=== PATIENT | male | born 1960 | race Caucasian/White ===

== ENCOUNTER 2019-11-21 19:44 | Inpatient (IN) | payer OTHER, SELFPAY ==
[2019-11-21 19:45] VITALS: BP 163/106; PULSE 94; RESP 18; TEMP 36.6; O2SAT 97; BMI 23.7
--- NOTE | 2019-11-21 20:42 | ED.VIS.GEN ---
History of Present Illness Chief Complaint: ETOH Intox Detail of Chief Complaint: wants detox Informant: Patient Narrative: Patient states he is a chronic alcoholic and has been ingesting an increased volume of alcohol daily for the past 5 weeks in order to self medicate because of pain in his neck that has been going on somewhere between 6-12 months. He states he had an MRI that showed DDD and possibly a pinched nerve. He denies any pain going down his arms but occasionally gets some paresthesias in his left upper arm. He has not seen pain management or been considered for any surgery or epidural injections yet. He has taken a few Vicodin here and there but it has been a long time since he has taken that. He presents today wanting detox from alcohol. He has never gone through detox before and has been a drinker for years. For the past 5 weeks he has been drinking on average a bottle of 80 proof vodka per day. He denies using any other substances in that period of time. He denies any recent illnesses or injuries. He states when he does not drink for a period of time he does feel shaky and gets nauseated with vomiting on occasion. His last drink was 4 or 5 hours ago and he does not feel like he is in withdrawal right now. - Past Medical History (1) Alcoholism Status: Chronic (2) Hypertension Status: Chronic Past Medical History - Allergies and Home Meds Allergies/Adverse Reactions: Allergies No Known Allergies Allergy (Verified 11/21/19 19:45) Primary Care Physician: [facility],Out of [NON-STAFF] - Lives: Spouse/ Significant Other Smoking Status: Current every day smoker Alcohol: Heavy Drugs: None Review of Systems General: Denies: Chills, Fever, Sweats Eyes: Denies: Visual changes - bilaterally, Diplopia ENT: Denies: Rhinorrhea, Sore throat Cardiovascular: Denies: Chest pain, Palpitations Respiratory: Denies: Dyspnea, Cough, Dyspnea on exertion Gastrointestinal: Denies: Abdominal pain, Nausea, Vomiting, Diarrhea, Melena, Hematochezia Genitourinary: Denies: Dysuria, Hematuria, Frequency Musculoskeletal: Reports: Neck pain. Denies: Back pain, Swelling, Extremity Pain Skin: Denies: Rash, Wounds Neurological: Reports: Parasthesia. Denies: Headache, Weakness Physical Exam Vital Signs/Narrative: Vital Signs Temp Pulse Resp BP Pulse Ox 11/21/19 19:45 98 F 94 18 163/106 H 97 Inital Vital Signs reviewed: Yes General: Well nourished, Well developed, No Acute Distress Head: Normocephalic, Atraumatic Eyes: Perrl, EOMI ENT: Moist mucous membranes, No rhinorrhea Neck: Supple, Nontender Cardiovascular: Regular rate, Regular rhythm, No murmurs Respiratory: No distress, CTA bilaterally, Chest nontender Abdomen: Soft, Nontender, Nondistended, Normal bowel sounds Back: Nontender, Normal Inspection Extremities: Nontender, No edema Skin: Normal color, No rash, No Trauma Neurological: Alert, Oriented x3, Cranial nerves II-XII grossly intact, Normal Strength, Normal Sensation, Normal Gait Psychological: Normal affect, Normal Mood Diagnostic/Tx/Re-eval Laboratory Results 11/21/19 11/21/19 11/21/19 20:30 20:30 20:30 WBC 3.6 L RBC 4.41 L Hgb 14.6 Hct 42.6 MCV 96.6 H MCH 33.1 H MCHC 34.3 RDW Std Deviation 52.5 H RDW Coeff of Saloni 14.6 Plt Count 91 L MPV 9.6 Immature Gran % (Auto) 0.300 Neut % (Auto) 54.5 Lymph % (Auto) 30.0 Rains % (Auto) 14.6 H Eos % (Auto) 0.3 Baso % (Auto) 0.3 Absolute Neuts (auto) 2.0 Absolute Lymphs (auto) 1.07 Nucleated RBC % 0 PT 11.0 L INR 0.8 Sodium 142 Potassium 4.1 Chloride 110 H Carbon Dioxide 27.0 Anion Gap 5 BUN 14 Creatinine 0.57 L Estim Creat Clear Calc 157.70 Est GFR (MDRD) Af Amer 187 Est GFR (MDRD) Non-Af 154 BUN/Creatinine Ratio 24.4 H Glucose 100 Calcium 9.3 Total Bilirubin 0.50 AST 97 H ALT 85 H Alkaline Phosphatase 104 Total Protein 8.0 Albumin 4.0 Globulin 4.0 Albumin/Globulin Ratio 1.0 Urine Opiates Screen Urine Methadone Screen Ur Barbiturates Screen Ur Phencyclidine Scrn Ur Amphetamines Screen U Methamphetamin-MDMA U Benzodiazepines Scrn Urine Cocaine Screen U Cannabinoids Screen Ur Drug Screen Comment Ethyl Alcohol 11/21/19 11/21/19 20:30 21:00 WBC RBC Hgb Hct MCV MCH MCHC RDW Std Deviation RDW Coeff of Saloni Plt Count MPV Immature Gran % (Auto) Neut % (Auto) Lymph % (Auto) Rains % (Auto) Eos % (Auto) Baso % (Auto) Absolute Neuts (auto) Absolute Lymphs (auto) Nucleated RBC % PT INR Sodium Potassium Chloride Carbon Dioxide Anion Gap BUN Creatinine Estim Creat Clear Calc Est GFR (MDRD) Af Amer Est GFR (MDRD) Non-Af BUN/Creatinine Ratio Glucose Calcium Total Bilirubin AST ALT Alkaline Phosphatase Total Protein Albumin Globulin Albumin/Globulin Ratio Urine Opiates Screen NEGATIVE Urine Methadone Screen NEGATIVE Ur Barbiturates Screen NEGATIVE Ur Phencyclidine Scrn NEGATIVE Ur Amphetamines Screen NEGATIVE U Methamphetamin-MDMA NEGATIVE U Benzodiazepines Scrn NEGATIVE Urine Cocaine Screen NEGATIVE U Cannabinoids Screen NEGATIVE Ur Drug Screen Comment Ethyl Alcohol 390.0 H* - Medical Decision Making I had a fairly prolonged discussion with the patient about the fact that he is self-medicating and does not have a plan for controlling his pain after he gets off of alcohol. He is amenable to following up with pain management and/or surgery for evaluation for 1 or more of these treatments. He was unsure exactly of what he wanted to do but in the end felt that since he was here and motivated today it would be best if he be admitted for detox now. He states when he is intoxicated it does help his pain which is why he has been drinking more, and he understands that he may be in pain temporarily after he goes through detox. Therefore labs drawn and discussed with hospitalist. His abdomen was benign and there is no fluid wave, he has no jaundice to suggest cirrhosis here. ED Disposition - Plan for ED Patient: Disposition: Acute Care Hospital [facility] Diagnosis: Alcohol dependence Referrals: [facility],Out of [NON-STAFF] -
[2019-11-21 20:52] LABS: Absolute Lymphocyte Count 1.07 X10^3/uL (0.83-4.51); Basophil# 0.01 X10^3/uL; Basophil% 0.3 % (0-1); Eosinophil# 0.01 X10^3/uL; Eosinophils% 0.3 % (0-5); Hematocrit 42.6 % (40-54); Hemoglobin 14.6 g/dL (13.0-16.5); Lymphocyte # 1.07 X10^3/ul (4.0); Mean Corp Hgb Conc 34.3 g/dL (32-36); Mean Corpuscular Hgb 33.1 pg (27.0-32.0); Mean Corpuscular Volume 96.6 fL (80-94); Mean Platelet Vol. 9.6 fl (6.2-12.0); Monocyte# 0.52 X10^3/uL; Monocyte% 14.6 % (0-10); NRBC Flagged by Analyzer 0 % (0-5); Neutrophil # 1.95 X10^3/uL (2.7-7.7); Neutrophil % 54.5 % (47-70); POSITIVE COUNT YES; Platelet Count 91 K/mm3 (150-450); RBC Distribution Width CV 14.6 % (11.6-14.6); RBC Distribution Width SD 52.5 fl (35.1-43.9); Red Blood Count 4.41 M/mm3 (4.6-6.2); White Blood Count 3.6 K/mm3 (4.4-11.0)
[2019-11-21 20:54] LABS: International Normalized Ratio 0.8
[2019-11-21 21:01] LABS: AST(SGOT) 97 U/L (15-37); Alanine Aminotransfer ALT/SGPT 85 U/L (16-61); Alkaline Phosphatase 104 U/L (45-117); Anion Gap 5 (5-15); BUN 14 mg/dL (7-18); BUN/Creat Ratio 24.4 RATIO (10-20); Calcium,Total 9.3 mg/dL (8.5-10.1); Chloride 110 mmol/L (98-107); Creatinine, Serum 0.57 mg/dL (0.70-1.30); EST Glomerular Filtration Rate 154 mL/min (>60); Est Glom Filt Rate - Afr Amer 187 mL/min (>60); Glucose 100 mg/dL (74-106); Potassium 4.1 mmol/L (3.5-5.1); Sodium Level 142 mmol/L (136-145)
[2019-11-21 21:23] LABS: Amphetamine Urine VISTA NEGATIVE (<1000 ng/mL); Barbiturate Urine VISTA NEGATIVE (< 200 ng/mL); Benzodiazepine Urine VISTA NEGATIVE (< 200 ng/mL); Cocaine Urine VISTA NEGATIVE (< 300 ng/mL); Ecstacy Urine VISTA NEGATIVE (< 500 ng/mL); Methadone Urine VISTA NEGATIVE (< 300 ng/mL); PCP Urine VISTA NEGATIVE (< 25 ng/mL); THC Urine VISTA NEGATIVE (< 50 ng/mL); Vista UDS pH Range 6
--- NOTE | 2019-11-21 22:05 | NURSING ---
pt put his clothes back on. pt said he was leaving to get something to eat. dr chavez waiting at bedside
[2019-11-21 22:14] VITALS: BP 151/100; PULSE 90; RESP 18; TEMP 36.3; O2SAT 98
--- NOTE | 2019-11-21 22:14 | PCM.HP.STD ---
Problem List (1) Alcoholism Status: Acute (2) Hypertension Status: Chronic History of Present Illness Date of Admission: 11/21/19 Chief Complaint: alcohol withdrawal The patient is a 59 year old male patient with a past medical history of alcohol abuse disorder presents to the emergency room requesting alcohol detoxification. For the last 5 weeks the patient has increased his alcohol consumption to 1 bottle of vodka daily which he attributes to his severe neck pain. He is motivated to go through detoxification for his and 2 children and to regain control over his life. The patient denies chest pain shortness breath fevers or chills at the present time. His last drink was vodka earlier today and he is already starting to exhibit alcohol withdrawal symptoms including agitation and restlessness. [facility]. Past Medical History Past Medical History (Chronic Problems): Chronic Problems Hypertension (Chronic) Allergies No Known Allergies Allergy (Verified 11/21/19 19:45) Home Medications: Ambulatory Orders Medication Instructions Recorded Losartan Potassium [Cozaar] 1 tab PO DAILY 11/21/19 Lives: Spouse/ Significant Other Smoking Status: Current every day smoker Tobacco Use: Cigarettes Alcohol: Heavy Drugs: None - *Family History Maternal History Items: No pertinent history Review of Systems Constitutional: Denies: Chills, Fever, Weight Change HEENT: Denies: Head Aches, Sinus Congestion, Sinus Drainage Cardiovascular: Denies: Chest Pain, Palpitations Respiratory: Denies: Cough, Shortness of breath at rest, Sputum production Gastrointestinal: Denies: Abdominal Pain, Nausea, Vomiting Genitourinary: Denies: Dysuria Musculoskeletal: Reports: Neck Pain. Denies: Joint Pain, Joint Tenderness Skin: Denies: Rash, Wounds Neurological: Denies: Numbness, Tingling, Focal weakness Psychiatric: Reports: Anxiety. Denies: Depression, Homicidal Ideations, Suicidal Ideations Hematologic/ Lymphatic: Denies: Easy Bruising, Easy Bleeding VTE Information - Inpt Only VTE Present on Admission: No VTE Mechan Device Prophylaxis: None VTE Pharm Prophylaxis ordered?: No Patient Problems: Active and Suspected Problems Alcohol dependence (Acute) - Physical Exam Vitals/I&O's: Vital Signs Temp Pulse Resp BP Pulse Ox 98 F 94 18 163/106 H 97 11/21/19 19:45 11/21/19 19:45 11/21/19 19:45 11/21/19 19:45 11/21/19 19:45 Oxygen Delivery Method Room Air Weight: 180 lb Body Mass Index (BMI) 23.7 General: Alert, Oriented x3, Cooperative HEENT: Atraumatic, Normocephalic Neck: Supple Lungs: Clear to auscultation, Normal air movement Cardiovascular: Regular rate, Normal S1, Normal S2, No murmurs Abdomen: Bowel Sounds Present, Soft, Non Tender Extremities: No edema Skin: No rashes Musculoskeletal: No Tenderness to Palpation of Joints or Extremities Neurological: Neuro grossly intact, - - psychomotor agitation present Psych/Mental Status: Appropriate, Agitated, Anxious, Restless Laboratory Results 11/21/19 20:30: WBC 3.6 L, RBC 4.41 L, Hgb 14.6, Hct 42.6, MCV 96.6 H, MCH 33.1 H, MCHC 34.3, RDW Std Deviation 52.5 H, RDW Coeff of Saloni 14.6, Plt Count 91 L, MPV 9.6, Immature Gran % (Auto) 0.300, Neut % (Auto) 54.5, Lymph % (Auto) 30.0, [place] % (Auto) 14.6 H, Eos % (Auto) 0.3, Baso % (Auto) 0.3, Absolute Neuts (auto) 2.0, Absolute Lymphs (auto) 1.07, Nucleated RBC % 0 11/21/19 20:30: PT 11.0 L, INR 0.8 11/21/19 20:30: Sodium 142, Potassium 4.1, Chloride 110 H, Carbon Dioxide 27.0, Anion Gap 5, BUN 14, Creatinine 0.57 L, Estim Creat Clear Calc 157.70, Est GFR (MDRD) Af Amer 187, Est GFR (MDRD) Non-Af 154, BUN/Creatinine Ratio 24.4 H, Glucose 100, Calcium 9.3, Total Bilirubin 0.50, AST 97 H, ALT 85 H, Alkaline Phosphatase 104, Total Protein 8.0, Albumin 4.0, Globulin 4.0, Albumin/Globulin Ratio 1.0 11/21/19 20:30: Ethyl Alcohol 390.0 H* 11/21/19 21:00: Urine Opiates Screen NEGATIVE, Urine Methadone Screen NEGATIVE, Ur Barbiturates Screen NEGATIVE, Ur Phencyclidine Scrn NEGATIVE, Ur Amphetamines Screen NEGATIVE, U Methamphetamin-MDMA NEGATIVE, U Benzodiazepines Scrn NEGATIVE, Urine Cocaine Screen NEGATIVE, U Cannabinoids Screen NEGATIVE, Ur Drug Screen Comment Assessment/Plan All Active Problems Alcoholism (Acute) Alcohol dependence (Acute) Chronic Problems Hypertension (Chronic) Plan 1. Alcohol abuse disorder with withdrawal requesting detoxification?admit to medical surgical floor and initiate CIWA protocol. Consult case management for abuse disorder in the a.m. 2. Hypertension continue routine medications 3. Tobacco abuse disorder?low-dose nicotine patch 4. DVT prophylaxis patient is ambulatory and will not need medication for this at this time Inpatient E&M: [id number] Init Hosp L3
[2019-11-21 22:34] VITALS: BMI 23.9
[2019-11-21 22:51] VITALS: BP 156/92; PULSE 81; RESP 18; TEMP 36.7; O2SAT 97
[2019-11-21] MEDS: Zolpidem Tartrate 5 MG Tablet PO (23:34)
[2019-11-22] VITALS (8 sets, daily range): BP systolic 144–155; BP diastolic 80–99; PULSE 75–91; RESP 16–18; TEMP 36.6–36.9; O2SAT 93–98
[2019-11-22] MEDS: Acetaminophen 325 MG Tablet 650 MG PO ×2 (03:40→10:36)
[2019-11-22 05:25] LABS: AST(SGOT) 102 U/L (15-37); Alanine Aminotransfer ALT/SGPT 82 U/L (16-61); Albumin, Serum 3.5 g/dL (3.2-5.0); Alkaline Phosphatase 98 U/L (45-117); Anion Gap 8 (5-15); BUN 18 mg/dL (7-18); BUN/Creat Ratio 30.2 RATIO (10-20); Calcium,Total 8.5 mg/dL (8.5-10.1); Chloride 104 mmol/L (98-107); EST Glomerular Filtration Rate 147 mL/min (>60); Est Glom Filt Rate - Afr Amer 178 mL/min (>60); Estimated Creatinine Clearance 149.81 ml/min; Globulin 3.6 g/dL (2.2-4.2); Glucose 88 mg/dL (74-106); Potassium 4.2 mmol/L (3.5-5.1); Protein, Total 7.1 g/dL (6.4-8.2); Sodium Level 138 mmol/L (136-145)
--- NOTE | 2019-11-22 10:11 | CASEMGMT ---
ARGENIS called Teresa with [employer] and left her a voice mail letting her know about patient. Corin MUSTAFA MSW
[2019-11-22] MEDS: Folic Acid 1 MG Tablet PO (10:21)
[2019-11-22] MEDS: Losartan Potassium 50 MG Tablet PO (10:21)
[2019-11-22] MEDS: Thiamine Hydrochloride 100 MG Tablet PO ×2 (10:21→17:37)
[2019-11-22] MEDS: guaiFENesin Dm 10 ML UDC PO ×2 (10:21→17:37)
[2019-11-22] MEDS: LORazepam 1 MG Tablet 2 MG PO ×4 (10:21→22:17)
[2019-11-22] MEDS: cycloBENZAPRine HCl 10 MG Tablet PO ×2 (10:37→22:17)
--- NOTE | 2019-11-22 10:51 | PCM.PN.HOSP ---
Patient Problems: Active and Suspected Problems Alcohol dependence (Acute) Reason for Visit: alcohol withdrawal Subjective: pt requesting medication for neck pain, willing to try flexeril. ongoing alcohol withdrawal. He denies hx DTs, seizure, hallucinations. Currently mildly tremulous upper extremities. Mild cough no sputum production. No sick contacts, pt has been isolating at home. No fever/chills. Vitals/I&O's: Vital Signs Temp Pulse Resp BP Pulse Ox 98.3 F 82 18 147/96 H 94 11/22/19 10:23 11/22/19 10:23 11/22/19 10:23 11/22/19 10:23 11/22/19 10:23 Oxygen Delivery Method Room Air Weight: 181 lb 10.574 oz Body Mass Index (BMI) 23.9 Intake and Output for Last 24 Hours 11/20/19 11/21/19 11/22/19 23:59 23:59 23:59 Intake Total 1999 Balance 1999 General: Alert, Oriented x3, Cooperative HEENT: Atraumatic, PERRLA, EOMI, Normocephalic Neck: Supple, No JVD, Negative Carotid Bruits Lungs: Normal air movement, Wheezes Cardiovascular: Regular rate, No murmurs Abdomen: Bowel Sounds Present, Soft, Non Tender Extremities: No edema, Capillary Refill Less than 3 Seconds Skin: No rashes, No breakdown Musculoskeletal: No Tenderness to Palpation of Joints or Extremities Neurological: Cranial nerves II-XII grossly intact, - - upper extremity fine tremor no asterixis Psych/Mental Status: Normal Affect, Appropriate Laboratory Results 11/21/19 20:30: WBC 3.6 L, RBC 4.41 L, Hgb 14.6, Hct 42.6, MCV 96.6 H, MCH 33.1 H, MCHC 34.3, RDW Std Deviation 52.5 H, RDW Coeff of Saloni 14.6, Plt Count 91 L, MPV 9.6, Immature Gran % (Auto) 0.300, Neut % (Auto) 54.5, Lymph % (Auto) 30.0, Wolfe % (Auto) 14.6 H, Eos % (Auto) 0.3, Baso % (Auto) 0.3, Absolute Neuts (auto) 2.0, Absolute Lymphs (auto) 1.07, Nucleated RBC % 0 11/21/19 20:30: PT 11.0 L, INR 0.8 11/21/19 20:30: Sodium 142, Potassium 4.1, Chloride 110 H, Carbon Dioxide 27.0, Anion Gap 5, BUN 14, Creatinine 0.57 L, Estim Creat Clear Calc 157.70, Est GFR (MDRD) Af Amer 187, Est GFR (MDRD) Non-Af 154, BUN/Creatinine Ratio 24.4 H, Glucose 100, Calcium 9.3, Total Bilirubin 0.50, AST 97 H, ALT 85 H, Alkaline Phosphatase 104, Total Protein 8.0, Albumin 4.0, Globulin 4.0, Albumin/Globulin Ratio 1.0 11/21/19 20:30: Ethyl Alcohol 390.0 H* 11/21/19 21:00: Urine Opiates Screen NEGATIVE, Urine Methadone Screen NEGATIVE, Ur Barbiturates Screen NEGATIVE, Ur Phencyclidine Scrn NEGATIVE, Ur Amphetamines Screen NEGATIVE, U Methamphetamin-MDMA NEGATIVE, U Benzodiazepines Scrn NEGATIVE, Urine Cocaine Screen NEGATIVE, U Cannabinoids Screen NEGATIVE, Ur Drug Screen Comment 11/22/19 04:58: Sodium 138, Potassium 4.2, Chloride 104, Carbon Dioxide 26.0, Anion Gap 8, BUN 18, Creatinine 0.60 L, Estim Creat Clear Calc 149.81, Est GFR (MDRD) Af Amer 178, Est GFR (MDRD) Non-Af 147, BUN/Creatinine Ratio 30.2 H, Glucose 88, Calcium 8.5, Total Bilirubin 0.50, AST 102 H, ALT 82 H, Alkaline Phosphatase 98, Total Protein 7.1, Albumin 3.5, Globulin 3.6, Albumin/Globulin Ratio 1.0 Current Medications Acetaminophen (Tylenol) 650 mg PO Q6H PRN PRN PRN Reason: Pain Score 1-10/Temp > 100.7 F Last Admin: 11/22/19 10:36 Dose: 650 mg Documented by: Albuterol Sulfate (Ventolin Aerosols) 2.5 mg INHALATION Q2H PRN PRN PRN Reason: SOB &/OR WHEEZING Cyclobenzaprine HCl (Flexeril) 10 mg PO TID [facility] Last Admin: 11/22/19 10:37 Dose: 10 mg Documented by: Folic Acid (Folic Acid) 1 mg PO DAILY@0800 [facility] Stop: 11/24/19 08:01 Last Admin: 11/22/19 10:21 Dose: 1 mg Documented by: Guaifenesin (Robitussin Dm) 10 ml PO Q6H PRN PRN PRN Reason: COUGH Last Admin: 11/22/19 10:21 Dose: 10 ml Documented by: Lorazepam (Ativan) 2 mg PO Q2H PRN PRN; Protocol PRN Reason: CIWA score > 8 but <15 Lorazepam (Ativan) 2 mg PO UD PRN; Protocol PRN Reason: CIWA score >/=15. Lorazepam (Ativan) 2 mg IV Q2H PRN PRN; Protocol PRN Reason: CIWA score > 8 but <15 Lorazepam (Ativan) 2 mg IV UD PRN; Protocol PRN Reason: CIWA score >/=15. Lorazepam (Ativan) 2 mg PO Q4H MARCELLO; Taper Stop: 11/26/19 17:44 Last Admin: 11/22/19 10:21 Dose: 2 mg Documented by: Losartan Potassium (Cozaar) 50 mg PO DAILY [facility] Last Admin: 11/22/19 10:21 Dose: 50 mg Documented by: Ondansetron HCl (Zofran) 4 mg IV Q8H PRN PRN PRN Reason: NAUSEA/VOMITING Prochlorperazine Edisylate (Compazine Iv) 5 mg IV Q4H PRN PRN PRN Reason: Breakthrough nausea/vomiting Sodium Chloride () 10 - 40 ml IV UD PRN PRN Reason: SALINE FLUSH Thiamine HCl (Vitamin B1) 100 mg PO BIDCM [facility] Stop: 11/24/19 17:01 Last Admin: 11/22/19 10:21 Dose: 100 mg Documented by: Trazodone HCl (Desyrel) 100 mg PO QHS MARCELLO Zolpidem Tartrate (Ambien (Generic)) 5 mg PO QHS PRN PRN PRN Reason: INSOMNIA Last Admin: 11/21/19 23:34 Dose: 5 mg Documented by: STROKE Vital Signs/Narrative: Vital Signs Temp Pulse Resp BP Pulse Ox 11/22/19 10:23 98.3 F 82 18 147/96 H 94 11/22/19 07:48 93 Medical Necessity - Tobacco Use Smoking Status: Current every day smoker Tobacco Use: Cigarettes Assessment/Plan All Active Problems Alcoholism (Acute) Alcohol dependence (Acute) 1. Alcoholism with withdrawal - ativan taper, ciwa protocol, folate, thiamine 180 referral 2. neck pain - try flexeril, recent MRI [facility]. f.u with primary physician 3. Thrombocytopenia likely 2/2 alcoholic cirrhosis. INR 0.8. LFTs mildly elevated. Repeat lab work at follow up. 4. Nicotine abuse, mild wheezing, suspect some degree of underlying lung dz - duoneb x 1 + PRN albuterol, incentive spirometer. 5. HTN - losartan 6. Insomnia - trazodone qhs DVT ppx: SCDs DC plannin at dc, continue ativan taper This patient was seen by Jensen Guzmán PA-C under the supervision of Dr. Flores
[2019-11-22] MEDS: Ipratropium/Albuterol Sulfate 3 ML AMPUL.NEB INHALATION (11:04)
--- NOTE | 2019-11-22 13:21 | ADDICTION ---
This keno writer met with patient in his room. Patient was oriented x4 but appeared to be having difficulty staying awake. He reported this was due to the medication he is being given to manage his pain from neck injury. Patient stated that he is not interested in discharge planning today but would be willing to process discharge planning with this keno writer at a later date. This keno writer will follow up with patient and hospital social media director regarding client's care after discharging from [facility]. Full ASAM assessment to be faxed to hospital social media director upon completion of documentation. ASAM: Dimension 1: Acute Intoxication/ Withdrawal Potential Patient reports that he has been ingesting 1/2 to 3/4 (gallon)bottle of vodka per day. He reports this intensity of use has been ongoing for 2+ months. He reports a history of withdrawal symptoms including: agitation, tremors, physical pain/discomfort. He appeared to be actively experiencing agitation and shakiness of hands. He is currently engaged with [facility] for Medically Managed Intensive Inpatient. Dimension 2: Biomedical Conditions/Concerns Patient reports a history of alcohol use to self-medicate. He states that he has been using alcohol, in excess, to manage pain in neck from prior injury and to help with sleep. He states that he has a history of high blood pressure but reported no other BMC/C. Dimension 3: Emotional, Behavioral, Cognitive Conditions/Concerns Patient reports a history of mild anxiety symptoms. He reports no barriers to effectively managing symptoms. He reports no other EBCC/C. Dimension 4: Readiness to Change Patient appears to be in the contemplation stage of change as evidenced by his report of identification of problem behaviors with potential intention of modifying problem beahviors (alcohol use). He appears ambivalent to ongoing treatment and is not fully dedicated to changing problematic behaviors. Dimension 5: Relapse, Continued Use or Continued Problem Potential Patient reports limited relapse prevention skills. Patient reports limited history of sobreity and no history of prior treatment. He states that he believes that his use has become unmanageable in the past 3-4 months. Patient did not correlate problematic behaviors to consequences. Patient is at a high risk of relapse/continued use based on lack of awareness of problem potential, ambivalence towards ongoing treatment and his report of use history. Dimension 6: Recovery/ Living Environment Patient reports that his and children are supportive and do not use AoD. He lives independently, with his and has maintained full-time employment which he reports is important to him. He reports that he has engaged in mutual aid in the past, but did not find it helpful and is not attending meetings or working with a sponsor at this time. LOC recommended: Medically Managed Intensive Inpatient to manage withdrawal symptoms.
--- NOTE | 2019-11-22 13:51 | ADDICTION ---
This typewriter operator automatic met with patient in his room. Patient was oriented x4 but appeared to be having difficulty staying awake. He reported this was due to the medication he is being given to manage his pain from neck injury. Patient stated that he is not interested in discharge planning today but would be willing to process discharge planning with this typewriter operator automatic at a later date. This typewriter operator automatic will follow up with patient and hospital high school social science teacher regarding client's care after discharging from [facility]. Full ASAM assessment to be faxed to hospital high school social science teacher upon completion of documentation. ASAM: Dimension 1: Acute Intoxication/ Withdrawal Potential Patient reports that he has been ingesting 1/2 to 3/4 (gallon)bottle of vodka per day. He reports this intensity of use has been ongoing for 2+ months. He reports a history of withdrawal symptoms including: agitation, tremors, physical pain/discomfort. He appeared to be actively experiencing agitation and shakiness of hands. He is currently engaged with [facility] for Medically Managed Intensive Inpatient. Dimension 2: Biomedical Conditions/Concerns Patient reports a history of alcohol use to self-medicate. He states that he has been using alcohol, in excess, to manage pain in neck from prior injury and to help with sleep. He states that he has a history of high blood pressure but reported no other BMC/C. Dimension 3: Emotional, Behavioral, Cognitive Conditions/Concerns Patient reports a history of mild anxiety symptoms. He reports no barriers to effectively managing symptoms. He reports no other EBCC/C. Dimension 4: Readiness to Change Patient appears to be in the contemplation stage of change as evidenced by his report of identification of problem behaviors with potential intention of modifying problem behaviors (alcohol use). He appears ambivalent to ongoing treatment and is not fully dedicated to changing problematic behaviors. Dimension 5: Relapse, Continued Use or Continued Problem Potential Patient reports limited relapse prevention skills. Patient reports limited history of sobriety and no history of prior treatment. He states that he believes that his use has become unmanageable in the past 3-4 months. Patient did not correlate problematic behaviors to consequences. Patient is at a high risk of relapse/continued use based on lack of awareness of problem potential, ambivalence towards ongoing treatment and his report of use history. Dimension 6: Recovery/ Living Environment Patient reports that his and children are supportive and do not use AoD. He lives independently, with his and has maintained full-time employment which he reports is important to him. He reports that he has engaged in mutual aid in the past, but did not find it helpful and is not attending meetings or working with a sponsor at this time. LOC recommended: Medically Managed Intensive Inpatient to manage withdrawal symptoms.
[2019-11-22] MEDS: traZODone 100 MG Tablet PO (22:17)
[2019-11-23] MEDS: LORazepam 1 MG Tablet 2 MG PO (01:29)
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
--- NOTE | 2019-11-23 08:12 | PCM.DC.SUM ---
Discharge Date and Diagnosis Date of Admission: 11/21/19 Date of Discharge: 11/23/19 - Primary Discharge Diagnosis Alcoholism with withdrawal Patient left AMA Neck pain likely osteoarthritis Thrombocytopenia suspect 2/2 alcoholic cirrhosis Nicotine abuse HTN Insomnia - Secondary Discharge Diagnosis Chronic Problems Hypertension (Chronic) Hospital Course and Treatment Operations: None Procedures: None Summary of Care Provided: Hospital Course: The patient is a 59 year old M with pmhx as above who presented to the ER with c/o request for detox. He had been drinking about 1 bottle of vodka daily. He attributed his increased consumption to increased neck pain however he had been worked up at [facility] with an MRI with no ruptured disc. He was admitted and placed on ativan. He was doing well with ativan initially and was given flexeril for neck pain. Overnight he broke into his locked belongings, violating his contracts, and left against medical advice. This patient was seen by Jensen Guzmán PA-C under the supervision of Dr. Flores. [] - Physical Exam Vitals/I&O's: Vital Signs Temp Pulse Resp BP Pulse Ox 98.0 F 82 16 151/88 H 98 11/22/19 22:21 11/22/19 22:21 11/22/19 22:21 11/22/19 22:21 11/22/19 22:21 Oxygen Delivery Method Room Air Weight: 181 lb 10.574 oz Body Mass Index (BMI) 23.9 Intake and Output for Last 24 Hours 11/21/19 11/22/19 11/23/19 23:59 23:59 23:59 Intake Total 1999 1240 / 1240 Balance 1999 1240 / 1240 General: Alert, Oriented x3, Cooperative HEENT: Atraumatic, PERRLA, EOMI, Normocephalic Neck: Supple, No JVD, Negative Carotid Bruits Lungs: Normal air movement, Wheezes - faint expiratory Cardiovascular: Regular rate, No murmurs Abdomen: Bowel Sounds Present, Soft, Non Tender Extremities: No edema, Capillary Refill Less than 3 Seconds Skin: No rashes, No breakdown Musculoskeletal: No Tenderness to Palpation of Joints or Extremities Neurological: Cranial nerves II-XII grossly intact Psych/Mental Status: Normal Affect, Alert and oriented to time, place, person, mood and affect Discharge Diet: Low fat/ Low Cholesterol, 2000 mg Sodium Diet Discharge Activity: Return to Normal Activity Home Medications: Medications to take at Discharge Losartan Potassium [Cozaar] 1 tab PO DAILY 11/21/19 Primary Care Physician: Zaki Doctor,Out of [NON-STAFF] - Please follow up with your Primary Care Physician in: as needed Disposition: Against Medical Advice Minutes spent on discharge:: 35 Patient Condition:: Stable Medical Necessity - Tobacco Use Smoking Status: Current every day smoker Tobacco Use: Cigarettes Meaningful Use Info Meaningful Use Diagnoses (Choose all that apply): None applicable
== END 2019-11-23 02:05 | disposition left against medical advice (07) | DRG 894 ==
LOC: ED 20:50 → PCU 22:26
PROVIDERS: Admitting Provider Family Medicine; Emergency Provider Emergency Medicine; Visit Provider Internal Medicine
DX: F10.239 Alcohol dependence with withdrawal, unspecified (principal); K70.30 Alcoholic cirrhosis of liver without ascites; Z53.29 Procedure and treatment not carried out because of patient's decision for other reasons; D69.59 Other secondary thrombocytopenia; I10 Essential (primary) hypertension; M54.2 Cervicalgia; G89.29 Other chronic pain; G47.00 Insomnia, unspecified; F17.210 Nicotine dependence, cigarettes, uncomplicated; Z79.899 Other long term (current) drug therapy
CPT/HCPCS: 36415; 80053; 80307; 80320; 85025; 85610; 94640; 99284; 99406; G0480

== ENCOUNTER 2020-10-30 15:07 | Outpatient (RCR) | payer OTHER, SELFPAY ==
[2019-11-21 22:34] VITALS: BMI 23.9
[2020-10-30] MEDS: COVID-19 VACC, MRNA(PFIZER)/PF 30 MCG/0.3 ML SYRINGE IM (09:47)
[2020-11-20] MEDS: COVID-19 VACC, MRNA(PFIZER)/PF 30 MCG/0.3 ML SYRINGE IM (10:10)
== END 2021-01-22 23:59 ==
LOC: IMMUN 15:07
PROVIDERS: PCP Family Medicine; Visit Provider Family Medicine
DX: Z23 Encounter for immunization (principal)
CPT/HCPCS: 0001A; 0002A; 91300

== ENCOUNTER 2023-12-18 22:02 | Inpatient (IN) | payer OTHER, MEDICAID, SELFPAY ==
[2023-12-18 22:03] VITALS: BP 126/99; PULSE 112; RESP 17; TEMP 37.9; O2SAT 98; BMI 23.2
--- NOTE | 2023-12-18 22:17 | EX.ED.DYSGE1 ---
HPI History of Present Illness Chief Complaint: Confusion [facility] PFS Medical History Anxiety and depression Chronic neck pain ETOH abuse Thrombocytopenia Tobacco use Home Medications losartan 50 mg tablet 1 tab PO DAILY 11/21/19 [History Last Taken Unknown] Allergy/AdvReac Type Severity Reaction Status Date / Time No Known Allergies Allergy Verified 12/18/23 22:18 Social History Smoking Status: Current every day smoker tobacco type: cigarettes EXAM Physical Exam Const Vital Signs: 12/18/23 22:03 12/19/23 00:03 Temperature 100.2 F H 98.4 F Temperature Source Temporal Temporal Pulse Rate 112 H 89 Respiratory Rate 17 18 Blood Pressure 126/99 H 118/86 H Blood Pressure Mean 108 96 Pulse Ox 98 96 Oxygen Delivery Method Room Air Room Air MDM MDM MDM Narrative Medical decision making narrative: HISTORY OF PRESENT ILLNESS: 63-year-old male presents with concern for confusion. Initial history provided by EMS. Patient was at a local drive-through when he was noted to be more confused. Per the patient he drinks approximately 7 alcoholic beverages per day. His preferred drink is vodka. States his last drink was yesterday at noon. Denies history of alcohol withdrawal. Denies any chest pain, shortness of breath does note some slight nervousness and anxiousness. Denies cough fever or chills. Denies abdominal pain. Denies chest pain. Denies bleeding diathesis. Denies vomiting or diarrhea. Denies any urinary complaints REVIEW OF SYSTEMS: Pertinent positives: Nausea, fever Pertinent negatives: Chest pain, shortness of breath, abdominal pain or any urinary complaints, focal numbness or weakness PHYSICAL EXAM: Nursing triage notes reviewed, Vital signs reviewed Constitutional: please see mdm HENT: MMM Eyes: Pupils equal round and reactive to light, Extraocular muscles intact Neck: No stridor, no JVD, full neck ROM Lungs: Clear to auscultation, No wheezing or rales. No increased work of breathing, no conversational dyspnea, no accessory muscle use, no nasal flaring. No respiratory distress noted Heart: Regular rate and rhythm, No murmurs, No rubs and No gallops, 2+ distal pulses (radial, femoral, posterior tibial) in all extremities Abdomen: Soft, there is no tenderness, rigidity, rebound or guarding, no obvious peritoneal signs, no palpable pulsatile abdominal masses, no auscultated abdominal bruit : No CVAT Extremities: No edema Neuro: No focal neurological deficits, cranial nerves II through XII intact, 5/5 strength in all extremities. Intact sensation to light touch in all extremities, 2+ reflexes bilateral patella tendons. Tremulous Skin: No rash or lesions noted MEDICAL DECISION MAKING: Chief Complaint: Confusion External records reviewed: No recent ED visits noted Factors affecting care: Hypertension Social determinants of health: History of alcoholism History obtained from others: EMS Consults: internal medicine (Dr. Kaur) [facility] Narrative: Patient was initially tachycardic, febrile, normotensive satting at 98% room air. Patient was tremulous, tachycardic. Unkept I considered the following differential diagnosis: Alcohol withdrawal, ICH, arrhythmia, anemia, electrolyte disturbance, infectious or metabolic encephalopathy I obtained a broad lab and imaging workup to further elucidate the etiology patient complaints. I treated the patient with Tylenol to treat his fever, Ativan and phenobarbital to treat alcohol withdrawal empirically. Zofran and fluids for rehydration ALL IMAGES (IF OBTAINED) HAVE BEEN PERSONALLY REVIEWED AND INTERPRETED BY MYSELF. EKG with sinus tachycardia, normal axis, slightly prolonged QT interval, no STEMI CBC with leukocytosis, anemia noted, noted thrombocytopenia I have personally reviewed the patient's chest x-ray. Chest x-ray is unremarkable for pulmonary edema, pneumothorax, pneumonia or focal cardiopulmonary abnormality., Incidental finding discussed with the patient UA with evidence of infection Lactate is wnl indicating no end-organ hypoperfusion and/or hypoxia. BMP with hyponatremia, hypokalemia suggestive of malnutrition and slight dehydration, no evidence of metabolic acidosis, there is an anion gap likely secondary to alcohol induced ketoacidosis Total bilirubin elevated, AST and ALT elevated alcohol-induced pattern is likely secondary to alcohol induced liver dysfunction High-sensitivity troponin is negative, no evidence of myocardial ischemia Urine tox screen is negative Serum alcohol level is negative The synthesis of the patient's history, physical exam, labs images suggest alcohol withdrawal, UTI. This explains patient's abnormal vital signs and fever. His lactate was negative. Blood cultures were drawn prior to antibiotics. He was given ceftriaxone for empiric UTI coverage. He was given Ativan and phenobarbital for empiric alcohol withdrawal treatment. Admitted given altered mental status, abnormal vital signs, signs of alcohol withdrawal and need for ongoing antimicrobial therapy. The patient and/or family, caregivers express understanding. The patient and/or family, caregivers agrees with the plan. Shared decision making: I will have a discussion with the patient and or visitors regarding risk/benefits of further testing or admission. They will be made aware of of the risk/benefits inherent in this decision they will be given the opportunity to voice understanding. Total critical care time today provided was at least 0 [] minutes. This excludes separately billable procedures. Critical care time (if documented) is secondary to the patient having high probability of clinically significant/life threatening deterioration in the patient's condition which required my urgent intervention. Impression: 1. Altered mental status 2. Alcohol withdrawal 3. Anemia 4. Thrombocytopenia 5. Acute UTI 7. Hyperbilirubinemia 8. Pulmonary nodule 9. Acute hyponatremia Dispo: Admit to floor This note was generated with [employer] dictation software. It may contain incorrect words, spelling, and punctuation that were not noted in review of the chart prior to signing. Lab Data Labs: Laboratory Results - last 24 hr 12/18/23 12/18/23 22:44 23:02 WBC 4.6 RBC 3.04 L Hgb 10.3 L Hct 30.9 L MCV 101.6 H MCH 33.9 H MCHC 33.3 RDW Std Deviation 55.4 H RDW Coeff of [place]oni 14.8 H Plt Count TNP MPV 11.6 Immature Gran % (Auto) 0.900 Neut % (Auto) 76.9 H Lymph % (Auto) 9.5 L [place] % (Auto) 12.5 H Eos % (Auto) 0.0 Baso % (Auto) 0.2 Absolute Neuts (auto) 3.6 Absolute Lymphs (auto) 0.44 L Nucleated RBC % 0 Differential Comment SEE COMMENT Platelet Estimate ADEQUATE RBC Morphology N CHROM Hypochromasia 1+ Anisocytosis 1+ Macrocytosis 1+ Ovalocytes RARE Sodium 134 L Potassium 3.4 L Chloride 93 L Carbon Dioxide 21.0 Anion Gap 20 H BUN 12 Creatinine 1.01 Estim Creat Clear Calc 84.53 Est GFR (MDRD) Af Amer 96 Est GFR (MDRD) Non-Af 79 BUN/Creatinine Ratio 11.9 Glucose 131 H Lactic Acid 1.7 Calcium 8.8 Total Bilirubin 2.70 H Direct Bilirubin 1.85 H AST 295 H ALT 93 H Alkaline Phosphatase 198 H Troponin I High Sens 18 Total Protein 7.7 Albumin 3.0 L Globulin 4.7 H Lipase 73 Urine Color Scarlet Urine Clarity Clear Urine pH 6.0 Ur Specific [place] 1.020 Urine Protein 500 H Urine Glucose (UA) Normal Urine Ketones 150 A* Urine Occult Blood 25 H Urine Nitrite Positive H Urine Bilirubin 6 H Urine Urobilinogen 12 H Ur Leukocyte Esterase 25 H Urine RBC 0 SEEN Urine WBC 0-5 SEEN Ur Squamous Epith Cells 0 SEEN Urine Bacteria 0 SEEN Hyaline Casts 10-25 SEEN Urine Mucus 0 SEEN Urine Opiates Screen NEGATIVE Urine Methadone Screen NEGATIVE Ur Barbiturates Screen NEGATIVE Ur Phencyclidine Scrn NEGATIVE Ur Amphetamines Screen NEGATIVE MDMA (Ecstasy) Screen NEGATIVE U Benzodiazepines Scrn NEGATIVE Urine Cocaine Screen NEGATIVE U Cannabinoids Screen NEGATIVE Ur Drug Screen Comment Ethyl Alcohol 4.0 Radiography Diagnostic Testing: Clinical Impression(s) from Imaging Studies Brain CT 12/18/23 22:36 IMPRESSION: Age-related changes as above, without evidence of acute intracranial hemorrhage in this noncontrast head CT. Sinus disease. Electronically Signed: Neri Anderson MD at 23:39 EDT , Chest X-Ray 12/18/23 22:45 IMPRESSION: 11 mm right lung base nodular opacity, to include pulmonary nodule. Recommend comparison with previous imaging to document long-term stability versus follow-up evaluation as per Fleischner guidelines as neoplastic process is not excluded. Chest with no acute disease. Electronically Signed: Neri Anderson MD at 23:36 EDT , Discharge Plan Triage Chief Complaint: Confusion ED Provider: Brendan Childs Dx/Rx/DC Orders Prescriptions: No Action losartan 50 MG tablet 1 tab PO DAILY Primary Care Provider: Rajeev Villaseñor Referrals: Rajeev Villaseñor MD [Primary Care Provider] -
--- NOTE | 2023-12-18 22:36 | CT_ITS ---
INDICATION: AMS EXAMINATION: CT BRAIN - CT Head or Brain W/O Contrast Injection TECHNIQUE: Serial CT axial images were obtained of the head without intravenous contrast. A radiation dose optimization technique was used for this scan. RADIATION DOSAGE (If Supplied By Facility): CTDIvol/DLP = ( 44.99 ) / ( 897.35 ) mGy/mGycm COMPARISON: None. Findings: Serial CT axial images of the head without contrast. BRAIN PARENCHYMA: Diffuse periventricular hypoattenuation likely chronic white matter ischemic changes. Moderate diffuse volume loss. No evidence of intraparenchymal hemorrhage or hyperattenuating extra-axial fluid collection. VASCULAR STRUCTURES: Atherosclerotic vascular calcifications. BONES: Bilateral maxillary sinus nodular mucosal thickening. SCALP/REMAINING SOFT TISSUES: Unremarkable. ASPECTS Score for Acute Strokes, if applicable: 10 CT/Brain/Head without Contrast IMPRESSION: Age-related changes as above, without evidence of acute intracranial hemorrhage in this noncontrast head CT. Sinus disease. Electronically Signed: Neri Anderson MD at 23:39 EDT ,
--- NOTE | 2023-12-18 22:36 | EKG12_ITS ---
Test Reason : CONFUSION Blood Pressure : / mmHG Vent. Rate : 104 BPM Atrial Rate : 104 BPM P-R Int : 130 ms QRS Dur : 096 ms QT Int : 364 ms P-R-T Axes : 046 017 055 degrees QTc Int : 478 ms Sinus tachycardia Nonspecific ST abnormality Abnormal ECG Confirmed by LACHO HILL, ASUNCION ([id number]), news video editor PATTI SUNG ([id number]) on 12/21/2023 11:46:18 AM Referred By: ADITI Confirmed By:ASUNCION MONK MD
--- NOTE | 2023-12-18 22:45 | RAD_ITS ---
INDICATION: fever EXAMINATION/TECHNIQUE: X-RAY - XR Chest 1 View COMPARISON: None. Findings: Single frontal view of the chest. Patient is rotated. LUNG PARENCHYMA: No acute focal airspace disease. 11 mm right lung base nodular opacity, to include pulmonary nodule. PLEURA: No pleural effusion. No pneumothorax. HEART/GREAT VESSELS: Cardiomediastinal silhouette is unremarkable. BONES: Osseous structures are unremarkable for age. RAD/Chest 1 View (Portable) IMPRESSION: 11 mm right lung base nodular opacity, to include pulmonary nodule. Recommend comparison with previous imaging to document long-term stability versus follow-up evaluation as per Fleischner guidelines as neoplastic process is not excluded. Chest with no acute disease. Electronically Signed: Neri Anderson MD at 23:36 EDT ,
[2023-12-18 22:55] LABS: Absolute Lymphocyte Count 0.44 X10^3/uL (0.83-4.51); Absolute Neutrophil Count 3.6 X10^3/uL (2.0-7.7); Basophil# 0.01 X10^3/uL; Basophil% 0.2 % (0-1); Hematocrit 30.9 % (40-54); Hemoglobin 10.3 g/dL (13.0-16.5); Lymphocyte # 0.44 X10^3/ul (0.83-4.51); Lymphocyte % 9.5 % (19-41); Mean Corp Hgb Conc 33.3 g/dL (32-36); Mean Corpuscular Hgb 33.9 pg (27.0-32.0); Mean Corpuscular Volume 101.6 fL (80-94); Mean Platelet Vol. 11.6 fl (6.2-12.0); Monocyte# 0.58 X10^3/uL; Monocyte% 12.5 % (0-10); NRBC Flagged by Analyzer 0 % (0-5); Neutrophil # 3.56 X10^3/uL (2.7-7.7); Neutrophil % 76.9 % (47-70); POSITIVE COUNT YES; POSITIVE DIFFERENTIAL YES; RBC Distribution Width CV 14.8 % (11.6-14.6); RBC Distribution Width SD 55.4 fl (35.1-43.9); Red Blood Count 3.04 M/mm3 (4.6-6.2); White Blood Count 4.6 K/mm3 (4.4-11.0)
[2023-12-18 22:56] LABS: Differential Indicated SCAN CRITERIA MET
[2023-12-18 23:04] LABS: Bacteria 0 SEEN /hpf (None Seen); Red Blood Cells-Urine 0 SEEN /hpf (0-5); Squamous Epithelial Cells - UA 0 SEEN /hpf (0-5)
[2023-12-18 23:12] LABS: AST(SGOT) 295 U/L (15-37); Alanine Aminotransfer ALT/SGPT 93 U/L (16-61); Alkaline Phosphatase 198 U/L (45-117); Anion Gap 20 (5-15); BUN 12 mg/dL (7-18); BUN/Creat Ratio 11.9 RATIO (10-20); Bilirubin, Direct 1.85 mg/dL (0.00-0.30); Calcium,Total 8.8 mg/dL (8.5-10.1); Chloride 93 mmol/L (98-107); Creatinine, Serum 1.01 mg/dL (0.70-1.30); EST Glomerular Filtration Rate 79 mL/min (>60); Est Glom Filt Rate - Afr Amer 96 mL/min (>60); Estimated Creatinine Clearance 84.53 ml/min; Globulin 4.7 g/dL (2.2-4.2); Glucose 131 mg/dL (74-106); Lipase 73 U/L (13-75); Potassium 3.4 mmol/L (3.5-5.1); Protein, Total 7.7 g/dL (6.4-8.2); Sodium Level 134 mmol/L (136-145); Troponin-I HS 18 pg/mL (3.0-78.0)
[2023-12-18 23:13] LABS: Color, Urine Amber (Yellow); Glucose, Dipstick Normal (Normal); Leukocyte Esterase-Dipstick 25 /ul (Negative); Nitrite-Dipstick Positive (Negative); Occult Blood-Urine 25 /ul (Negative); Protein-Dipstick 500 mg/dl (Negative); Urine Clarity Clear (Clear); Urine Urobilinogen 12 mg/dl (Normal)
[2023-12-18 23:14] LABS: Ketone-Dipstick 150 mg/dl (Negative); Urine Bilirubin Dipstick 6 mg/dL (Negative)
[2023-12-18 23:19] LABS: Anisocytosis 1+; Hypochromasia 1+; Macrocytosis 1+; Ovalocyte RARE; Platelet Estimate ADEQUATE (ADEQ); Red Cell Morphology N CHROM NORMAL (NORM C&C)
[2023-12-18 23:24] LABS: Lactic Acid 1.7 mmol/L (0.4-1.9)
[2023-12-18 23:26] LABS: Hyaline Cast 10-25 SEEN /lpf (0-5); Mucous, Urine 0 SEEN /hpf (<or=2+); White Blood Cells 0-5 SEEN /hpf (0-5)
[2023-12-18] MEDS: LORazepam 2 MG/ML Syringe IV (23:32)
[2023-12-18] MEDS: 0.9% Normal Saline (1000mL) 1,000 ML 1000 ML IV (23:32)
[2023-12-18] MEDS: Ondansetron 4 MG/2 ML Vial IV (23:33)
[2023-12-18] MEDS: Phenobarbital 32.4 MG Tablet 97.2 MG PO (23:34)
[2023-12-18 23:35] LABS: Amphetamine Urine VISTA NEGATIVE (<1000 ng/mL); Barbiturate Urine VISTA NEGATIVE (< 200 ng/mL); Benzodiazepine Urine VISTA NEGATIVE (< 200 ng/mL); Cocaine Urine VISTA NEGATIVE (< 300 ng/mL); Ecstacy Urine VISTA NEGATIVE (< 500 ng/mL); Methadone Urine VISTA NEGATIVE (< 300 ng/mL); PCP Urine VISTA NEGATIVE (< 25 ng/mL); THC Urine VISTA NEGATIVE (< 50 ng/mL); Vista UDS pH Range 4
[2023-12-19] VITALS (9 sets, daily range): BP systolic 114–140; BP diastolic 77–115; PULSE 78–97; RESP 16–18; TEMP 36.8–37.3; O2SAT 94–100; BMI 22.4
--- NOTE | 2023-12-19 00:43 | HP.PCM.HOS_ITS ---
HPI - General General Date of Admission: 12/19/23 Date of Service: 12/19/23 Chief Complaint: Confusion. HPI Narrative The patient is a 63 y/o M w/ PMHx: Chronic thrombocytopenia, HTN, Tobacco use, EtOH abuse, Anxiety and Depression, Chronic neck pain with DDD who presents to the [facility] ED on 12/18/23 noted to have been in a local drive-through with staff becoming concerned secondary to notable confusion prompting EMS call and transition to the hospital for ED evaluation. From reported information upon ED arrival patient is currently going through a divorce. Although patient is not the best historian upon arrival he was noted to be mildly tachycardic with a fever, normal blood pressure and appropriate oxygenation on room air. Following withdrawal treatment in the ED patient eventual able to note that last EtOH intake of vodka was 2 days prior. He was attempting to stop. Workup in the ED included T1 100.2, heart rate 112, BP 126/99, respiratory rate 17, 98% on room air--> T98.4, heart rate 89, BP 118/86, respiratory rate 18, 96% on room air following medications as noted below, CBC with WBC 4.6, hemoglobin 10.3, MCV 101.6, platelet 83 with lymphopenia, CMP with sodium 134, potassium 3.4, chloride 93, anion gap 20, glucose 131, T. bili 2.70, D bili 1.85, AST/ALT 295/93, alk phos 198, lipase 73, lactic acid 1.7, troponin 18, urinalysis with urine protein 500, urine ketones 150, occult blood 25, positive nitrate, urine bilirubin 6, urine urobilinogen 12, leukocyte Estrace 25 with no marked urine bacteria or urine WBCs, ethyl alcohol 4, urine drug screen negative, chest x-ray with 11 mm right lung base nodular opacity with chest otherwise with no acute cardiopulmonary findings, CT brain with age-related changes with no acute evidence of intracranial finding with chronic sinus disease, EKG with sinus tachycardia with no acute evidence of ischemia. In the ED patient ministered 1 L normal saline, Ativan 2 mg IV x 1, phenobarbital 97.2 mg p.o. x 1, Zofran 4 mg IV x 1, Tylenol 650 mg p.o. x 1. Patient also administered rocephin 1 gm IV x 1 for possible UTI coverage. [facility] Medical History Anxiety and depression Chronic neck pain ETOH abuse Thrombocytopenia Tobacco use Home Medications losartan 50 mg tablet 1 tab PO DAILY 11/21/19 [History Last Taken Unknown] Allergy/AdvReac Type Severity Reaction Status Date / Time No Known Allergies Allergy Verified 12/18/23 22:18 other (Both parents are living he notes. He notes they take medications but he is unsure of medical diagnosis history.) Surgical History No history of previous surgery Social History household members: family Smoking Status: Current every day smoker tobacco type: cigarettes Smoking packs per day: 0.5 Smoking cigarettes per day: 10.0 alcohol intake: current alcohol intake frequency: 3 or more drinks per day Alcohol type: hard liquor details: Usually drinks daily, vodka, unclear exact amount, last drink 2 days prior. substance use type: does not use ROS ROS Narrative Patient becoming more alert but remains confused, not completely oriented, answering very slowly and will trial off during responses. Review of Systems ROS Unobtainable: due to encephalopathy Vital Signs Vital Signs Vital Signs: 12/18/23 22:03 12/19/23 00:03 Temperature 100.2 F H 98.4 F Temperature Source Temporal Temporal Pulse Rate 112 H 89 Respiratory Rate 17 18 Blood Pressure 126/99 H 118/86 H Blood Pressure Mean 108 96 Pulse Ox 98 96 Oxygen Delivery Method Room Air Room Air Weight Weight: 176 lb Body Mass Index (BMI) 23.2 Physical Exam Narrative Physical Examination: General: Awakens to stimuli but very slow responses, fatigued, not markedly ta rt, oriented eventually to place, self, given correct year but wrong month, lethargic, following some commands but not all, laying in the ED bed, disheveled appearance. Skin: Normal color, normal turgor, no icterus, no cyanosis except for staged ecchymoses, abrasions, very disheveled appearance. HEENT: AT/NC, EOMI, PERRLA, dry MM, no carotid bruits or JVD noted. Lungs: Diminished, greater bases, appropriate effort, no evidence of any distress, no rales, ronchi or wheezing. Heart: Improved, regular rate and rhythm; no gallop, rub audible. Abdomen: Soft, NTTP, ND, hyperactive BS, no markedly appreciated HSM. Extremities: No cyanosis, no clubbing, no marked peripheral edema. Neurological: Awakens to stimuli but very slow responses, fatigued, not markedly alert, oriented eventually to place, self, given correct year but wrong month, lethargic, following some commands but not all, laying in the ED bed, disheveled appearance, cognitive function improving since ED arrival but still not baseline intact; pupils equally reactive to light and accommodation, cranial nerves grossly normal, moving all 4 extremities, no focal deficits, strength moderately to severely globally decreased. Psychiatric: Affect appears fatigued, lethargic, no acute evidence of depressive or anxiety feelings but does have underlying history. Results Lab / Micro Data 12/18/23 22:44 12/18/23 22:44 Labs: Laboratory Results - last 24 hr 12/18/23 22:44: WBC 4.6, RBC 3.04 L, Hgb 10.3 L, Hct 30.9 L, MCV 101.6 H, MCH 33.9 H, MCHC 33.3, RDW Std Deviation 55.4 H, RDW Coeff of Saloni 14.8 H, Plt Count TNP, MPV 11.6, Immature Gran % (Auto) 0.900, Neut % (Auto) 76.9 H, Lymph % (Auto) 9.5 L, [place] % (Auto) 12.5 H, Eos % (Auto) 0.0, Baso % (Auto) 0.2, Absolute Neuts (auto) 3.6, Absolute Lymphs (auto) 0.44 L, Nucleated RBC % 0, Differential Comment SEE COMMENT, Platelet Estimate ADEQUATE, RBC Morphology N CHROM, Hypochromasia 1+, Anisocytosis 1+, Macrocytosis 1+, Ovalocytes RARE, So dium 134 L, Potassium 3.4 L, Chloride 93 L, Carbon Dioxide 21.0, Anion Gap 20 H, BUN 12, Creatinine 1.01, Estim Creat Clear Calc 84.53, Est GFR (MDRD) Af Amer 96, Est GFR (MDRD) Non-Af 79, BUN/Creatinine Ratio 11.9, Glucose 131 H, Lactic Acid 1.7, Calcium 8.8, Total Bilirubin 2.70 H, Direct Bilirubin 1.85 H, AST 295 H, ALT 93 H, Alkaline Phosphatase 198 H, Troponin I High Sens 18, Total Protein 7.7, Albumin 3.0 L, Globulin 4.7 H, Lipase 73, Ethyl Alcohol 4.0 12/18/23 23:02: Urine Color Scarlet, Urine Clarity Clear, Urine pH 6.0, Ur Specific [place] 1.020, Urine Protein 500 H, Urine Glucose (UA) Normal, Urine Ketones 150 A*, Urine Occult Blood 25 H, Urine Nitrite Positive H, Urine Bilirubin 6 H, Urine Urobilinogen 12 H, Ur Leukocyte Esterase 25 H, Urine RBC 0 SEEN, Urine WBC 0-5 SEEN, Ur Squamous Epith Cells 0 SEEN, Urine Bacteria 0 SEEN, Hyaline Casts 10-25 SEEN, Urine Mucus 0 SEEN, Urine Opiates Screen NEGATIVE, Urine Methadone Screen NEGATIVE, Ur Barbiturates Screen NEGATIVE, Ur Phencyclidine Scrn NEGATIVE, Ur Amphetamines Screen NEGATIVE, MDMA (Ecstasy) Screen NEGATIVE, U Benzodiazepines Scrn NEGATIVE, Urine Cocaine Screen NEGATIVE, U Cannabinoids Screen NEGATIVE, Ur Drug Screen Comment Micro: Microbiology 12/18/23 23:40 Mucosa - Nose SARS-CoV-2, Influenza & RSV (PCR) - Final Imaging Radiology Impression Brain CT 12/18/23 22:36 IMPRESSION: Age-related changes as above, without evidence of acute intracranial hemorrhage in this noncontrast head CT. Sinus disease. Electronically Signed: Neri Anderson MD at 23:39 EDT , Chest X-Ray 12/18/23 22:45 IMPRESSION: 11 mm right lung base nodular opacity, to include pulmonary nodule. Recommend comparison with previous imaging to document long-term stability versus follow-up evaluation as per Fleischner guidelines as neoplastic process is not excluded. Chest with no acute disease. Electronically Signed: Neri Anderson MD at 23:36 EDT , Assessment & Plan Assessment/Plan (1) Alcohol withdrawal: PLAN: Plan The patient is a 63 y/o M w/ PMHx: Chronic thrombocytopenia, HTN, Tobacco use, EtOH abuse, Anxiety and Depression, Chronic neck pain with DDD who presents to the [facility] ED on 12/18/23 noted to have been in a local drive-through with staff becoming concerned secondary to notable confusion prompting EMS call and transition to the hospital for ED evaluation. #1. Acute encephalopathy, suspected primarily EtOH withdrawal as noted #2 but given encephalopathy, poor historian cannot absolutely rule out SIRS infectious source but could certainly have VS set including fever secondary to EtOH withdrawal: Will admit to [facility] upon ED evaluation w/ +nitrite but otherwise no marked LE and no urine bacteria or urine WBC, pending UCx, blood culture x 2 pending, continue IVFs, monitor I/Os, will judiciously hydrate, will obtain spu norma culture, urine antigens, respiratory viral panel, procalcitonin requested. Will continue treatment as noted #2, #3, #4, #5 all contributing to this current presentation. Will maintain on fall and aspiration precautions. PT/OT/case management consulted for discharge planning. Given urine ketosis although suspect alcohol related patient does have anion gap 20 thus will obtain acetone to be cautious. #2. Acute EtOH Withdrawal with chronic alcohol abuse with concurrent evidence of alcoholic ketosis: Will continue on protocol with taper course of Phenobarbital cautiously given underlying liver abnormalities and if worsen may need to consider transition to shorter acting Ativan, will have also as needed gabapentin, Catapres, Bentyl, Vistaril, IV fluids, IV antiemetics, Tylenol as needed for pain. Will consult Case management for assistance for transition to next level of rehabilitation care. Mag, phos pending. Maintain on CIWA protocol concurrently. Will maintain on thiamine, folic acid and multivitamin. #3. Hyponatremia, hypochloremia: Admission sodium 134, chloride 93, potentially component of hypovolemia as patient has not been taking care of himself recently in addition to underlying alcohol abuse as etiology but previous labs although remote were normal range, will judiciously hydrate and repeat CMP in AM. #4. Hyperbilirubinemia, transaminitis, unclear chronicity compounded by underlying alcohol abuse/possibly chronic alcoholic hepatitis: Admission CMP with T. bili 2.70, D bili 1.85, AST/ALT 295/93, alk phos 198, liver ultrasound requested, will repeat CMP in a.m. and continue evaluation and treatments as noted. #5. Hypokalemia: Admission K+ 3.4, magnesium level requested, supplementation given, repeat level in AM. #6. Incidental lung nodule: Chest x-ray with noted 11 mm right lung base nodular opacity, unclear exact etiology, will need follow-up imaging possibly outpatient. #7. Macrocytic anemia, unclear exact chronicity: Admission hemoglobin 10.3, MCV 101.6, baseline hemoglobin unknown is no recent comparisons but given history and alcoholism suspect chronic, last lab noted 11/21/2019 hemoglobin 14.6 at that time, vitamin B12 and folic acid levels requested, repeat CBC in the a.m. to further elucidate chronicity. #8. Anxiety and depression: Not on any regimen, given ongoing events will benefit greatly from continued counseling and potential initiation of antidepressant. #9. Chronic neck pain with degenerative disc disease: Patient from prior visits initially started to drink heavily secondary to pain in his neck, encourage continued outpatient follow-up with orthopedic spine to continue to evaluate possible interventions. #10. Hypertension: Continue home regimen including losartan, PRN hydralazine. #11. Chronic thrombocytopenia, alcohol abuse related: Admission platelet 83, previous to this noted 91, chronic, encourage sobriety, continue to trend CBC. #12. Tobacco Abuse: Encouraged cessation, inpatient consultation per RT, NR if desired. #13. DVT prophylaxis: SCDs, defer chemoprophylaxis given thrombocytopenia. #14. CODE status: Full Code. Charges/Coding Visit Charges Inpatient E&M: 57648 Init Hosp L3
[2023-12-19] MEDS: Ceftriaxone 1 GM/50 ML BAG IV (00:44)
--- NOTE | 2023-12-19 01:08 | ED.RN ---
pt unsure of medications. states he is on lorazepam, but fill history shows most recent medication dispensed was xanax. medication list not completed in ED.
[2023-12-19 01:39] LABS: Magnesium 1.2 mg/dL (1.6-2.6)
[2023-12-19] MEDS: Potassium Chloride Oral Tablet 20 MEQ 40 MEQ PO (02:02)
[2023-12-19] MEDS: hydrOXYzine PAM 25 MG Capsule 50 MG PO (02:02)
[2023-12-19] MEDS: 0.9% Normal Saline (1000mL) 1,000 ML 999 ML IV (02:02)
[2023-12-19] MEDS: Phenobarbital 32.4 MG Tablet PO ×6 (02:02→22:22)
[2023-12-19 02:09] LABS: Procalcitonin 0.27 ng/mL (0.00-0.09)
[2023-12-19] MEDS: Magnesium Sulfate 4gm/100mL 4 GM/100 ML IV.SOLN. IV (02:13)
[2023-12-19] MEDS: 0.9% Normal Saline (1000mL) 1,000 ML 100 ML IV (02:16)
--- NOTE | 2023-12-19 05:55 | US_ITS ---
HISTORY: elevated LFT, bili. TECHNIQUE: Oneal scale and color doppler imaging was performed of the right upper quadrant. 72 images. COMPARISON: None. FINDINGS: LIVER: 19 cm in length. Heterogeneous echotexture without focal lesion demonstrated. No intrahepatic ductal dilatation. MAIN PORTAL VEIN: Patent with flow in the appropriate direction. COMMON BILE DUCT: 3 mm in diameter. GALLBLADDER: Mild sludge without shadowing gallstones. 2 mm wall thickness, within normal limits. No pericholecystic fluid. Sonographic Campbell sign negative. PANCREAS: Partially obscured due to overlying bowel gas. RIGHT KIDNEY: 12.9 cm in length with a cortical thickness of 1.5 cm. No hydronephrosis or gross renal mass demonstrated. US/Liver IMPRESSION: Hepatic steatosis with hepatomegaly. Mild sludge in the gallbladder without sonographic evidence of cholelithiasis. Electronically Signed: Ann Marie Sterling MD at 11:26 EDT ,
[2023-12-19 06:07] LABS: Absolute Lymphocyte Count 0.65 X10^3/uL (0.83-4.51); Absolute Neutrophil Count 2.6 X10^3/uL (2.0-7.7); Basophil# 0.02 X10^3/uL; Basophil% 0.6 % (0-1); Hematocrit 28.3 % (40-54); Hemoglobin 9.5 g/dL (13.0-16.5); Lymphocyte # 0.65 X10^3/ul (0.83-4.51); Lymphocyte % 17.9 % (19-41); Mean Corp Hgb Conc 33.6 g/dL (32-36); Mean Corpuscular Hgb 34.1 pg (27.0-32.0); Mean Corpuscular Volume 101.4 fL (80-94); Mean Platelet Vol. 11.4 fl (6.2-12.0); Monocyte# 0.29 X10^3/uL; NRBC Flagged by Analyzer 0 % (0-5); Neutrophil # 2.62 X10^3/uL (2.7-7.7); Neutrophil % 72.1 % (47-70); POSITIVE COUNT YES; Platelet Count 74 K/mm3 (150-450); RBC Distribution Width CV 14.6 % (11.6-14.6); RBC Distribution Width SD 55.2 fl (35.1-43.9); Red Blood Count 2.79 M/mm3 (4.6-6.2); White Blood Count 3.6 K/mm3 (4.4-11.0)
[2023-12-19 06:08] LABS: Differential Indicated SCAN CRITERIA MET
[2023-12-19 06:27] LABS: Platelet Estimate MOD DEC (ADEQ)
[2023-12-19 06:28] LABS: Stomatocyte 1+; Target Cells 2+
[2023-12-19 06:47] LABS: Magnesium 2.3 mg/dL (1.6-2.6)
[2023-12-19 07:06] LABS: ALB/GLOB Ratio 0.7 RATIO (0.9-2.4); AST(SGOT) 223 U/L (15-37); Alanine Aminotransfer ALT/SGPT 72 U/L (16-61); Albumin, Serum 2.5 g/dL (3.2-5.0); Alkaline Phosphatase 158 U/L (45-117); Anion Gap 11 (5-15); BUN 8 mg/dL (7-18); BUN/Creat Ratio 11.9 RATIO (10-20); Calcium,Total 8.6 mg/dL (8.5-10.1); Chloride 99 mmol/L (98-107); Creatinine, Serum 0.67 mg/dL (0.70-1.30); EST Glomerular Filtration Rate 127 mL/min (>60); Est Glom Filt Rate - Afr Amer 154 mL/min (>60); Estimated Creatinine Clearance 122.75 ml/min; Globulin 3.8 g/dL (2.2-4.2); Glucose 96 mg/dL (74-106); Potassium 3.3 mmol/L (3.5-5.1); Protein, Total 6.3 g/dL (6.4-8.2); Sodium Level 134 mmol/L (136-145)
--- NOTE | 2023-12-19 07:18 | PN.HOSP_ITS ---
Reason for Visit Reason for Visit: Diagnoses Alcohol use, unspecified with withdrawal, unspecified (12/19/23) Subjective Subjective Patient is a 63-year-old gentleman with history of chronic alcohol dependence admitted with with confusion. Diagnosis of acute alcohol withdrawal was made admitted to regular nursing floor for further management Objective Data Objective Data Vital Signs: Vital Signs Temp Pulse Resp BP Pulse Ox O2 Del Method 98.3 F 89 17 127/84 H 97 Room Air 12/19/23 01:56 12/19/23 01:56 12/19/23 01:56 12/19/23 01:56 12/19/23 01:56 12/19/23 01:56 Oxygen Delivery Method Room Air Weight: 76.9 kg Body Mass Index (BMI) 22.4 Intake & Output: Intake and Output for Last 24 Hours 12/17/23 12/18/23 12/19/23 23:59 23:59 23:59 Intake Total 2200 / 2200 Output Total 250 / 250 Balance 1950 / 1950 Lab / Micro Data 12/19/23 05:53 12/19/23 05:53 Labs: Laboratory Results - last 24 hr 12/18/23 22:44: WBC 4.6, RBC 3.04 L, Hgb 10.3 L, Hct 30.9 L, MCV 101.6 H, MCH 33.9 H, MCHC 33.3, RDW Std Deviation 55.4 H, RDW Coeff of [place]oni 14.8 H, Plt Count TNP, MPV 11.6, Immature Gran % (Auto) 0.900, Neut % (Auto) 76.9 H, Lymph % (Auto) 9.5 L, [place] % (Auto) 12.5 H, Eos % (Auto) 0.0, Baso % (Auto) 0.2, Absolute Neuts (auto) 3.6, Absolute Lymphs (auto) 0.44 L, Nucleated RBC % 0, Differential Comment SEE COMMENT, Platelet Estimate ADEQUATE, RBC Morphology N CHROM, Hypochromasia 1+, Anisocytosis 1+, Macrocytosis 1+, Ovalocytes RARE, Sodium 134 L, Potassium 3.4 L, Chloride 93 L, Carbon Dioxide 21.0, Anion Gap 20 H, BUN 12, Creatinine 1.01, Estim Creat Clear Calc 84.53, Est GFR (MDRD) Af Amer 96, Est GFR (MDRD) Non-Af 79, BUN/Creatinine Ratio 11.9, Glucose 131 H, Lactic Acid 1.7, Calcium 8.8, Phosphorus 3.0, Magnesium 1.2 L, Total Bilirubin 2.70 H, Direct Bilirubin 1.85 H, AST 295 H, ALT 93 H, Alkaline Phosphatase 198 H, Troponin I High Sens 18, Total Protein 7.7, Albumin 3.0 L, Globulin 4.7 H, Lipase 73, Procalcitonin 0.27 H, Ethyl Alcohol 4.0, Acetone Level SMALL H 12/18/23 23:02: Urine Color Scarlet, Urine Clarity Clear, Urine pH 6.0, Ur Specific [place] 1.020, Urine Protein 500 H, Urine Glucose (UA) Normal, Urine Ketones 150 A*, Urine Occult Blood 25 H, Urine Nitrite Positive H, Urine Bilirubin 6 H, Urine Urobilinogen 12 H, Ur Leukocyte Esterase 25 H, Urine RBC 0 SEEN, Urine WBC 0-5 SEEN, Ur Squamous Epith Cells 0 SEEN, Urine Bacteria 0 SEEN, Hyaline Casts 10-25 SEEN, Urine Mucus 0 SEEN, Urine Opiates Screen NEGATIVE, Urine Methadone Screen NEGATIVE, Ur Barbiturates Screen NEGATIVE, Ur Phencyclidine Scrn NEGATIVE, Ur Amphetamines Screen NEGATIVE, MDMA (Ecstasy) Screen NEGATIVE, U Benzodiazepines Scrn NEGATIVE, Urine Cocaine Screen NEGATIVE, U Cannabinoids Screen NEGATIVE, Ur Drug Screen Comment 12/19/23 05:53: WBC 3.6 L, RBC 2.79 L, Hgb 9.5 L, Hct 28.3 L, MCV 101.4 H, MCH 34.1 H, MCHC 33.6, RDW Std Deviation 55.2 H, RDW Coeff of [place] 14.6, Plt Count 74 L, MPV 11.4, Immature Gran % (Auto) 1.400 H, Neut % (Auto) 72.1 H, Lymph % (Auto) 17.9 L, [place] % (Auto) 8.0, Eos % (Auto) 0.0, Baso % (Auto) 0.6, Absolute Neuts (auto) 2.6, Absolute Lymphs (auto) 0.65 L, Nucleated RBC % 0, Platelet Estimate MOD DEC, Target Cells 2+, Stomatocytes 1+, Sodium 134 L, Potassium 3.3 L, Chloride 99, Carbon Dioxide 24.0, Anion Gap 11, BUN 8, Creatinine 0.67 L, Estim Creat Clear Calc 122.75, Est GFR (MDRD) Af Amer 154, Est GFR (MDRD) Non-Af 127, BUN/Creatinine Ratio 11.9, Glucose 96, Calcium 8.6, Magnesium 2.3, Total Bilirubin 2.20 H, AST 223 H, ALT 72 H, Alkaline Phosphatase 158 H, Total Protein 6.3 L, Albumin 2.5 L, Globulin 3.8, Albumin/Globulin Ratio 0.7 L, Folate 2.60 L Micro: Microbiology 12/19/23 01:59 Mucosa - Nasopharyngeal Respiratory Panel (PCR) - Final 12/19/23 00:00 Urine, Clean Catch Legionella Antigen - Final 12/19/23 00:00 Urine, Clean Catch Streptococcus pneumoniae Antigen (M - Final 12/18/23 23:40 Mucosa - Nose SARS-CoV-2, Influenza & RSV (PCR) - Final Radiography Diagnostic Testing: Radiology Impression Brain CT 12/18/23 22:36 IMPRESSION: Age-related changes as above, without evidence of acute intracranial hemorrhage in this noncontrast head CT. Sinus disease. Electronically Signed: Neri Anderson MD at 23:39 EDT , Chest X-Ray 12/18/23 22:45 IMPRESSION: 11 mm right lung base nodular opacity, to include pulmonary nodule. Recommend comparison with previous imaging to document long-term stability versus follow-up evaluation as per Fleischner guidelines as neoplastic process is not excluded. Chest with no acute disease. Electronically Signed: Neri Anderson MD at 23:36 EDT , Physical Exam Narrative GENERAL: cooperative HEENT: Atraumatic; normocephalic EYES; Anicteric, Normal Conjunctiva NECK; supple, normal thyroid, RESPIRATORY: Diminished to auscultation CARDIOVASCULAR: Regular S1 S2, GI: soft, normoactive bowel sounds, : No Renal angle tenderness; EXTREMITIES: No edema, no clubbing, MUSCULOSKELETAL: no muscle wasting NEURO: Awake; no lateralizing signs. SKIN: No Rash PSYCH; Flat affect Assessment & Plan Assessment/Plan (1) Alcohol withdrawal: PLAN: Plan Patient is a 63-year-old gentleman with history of chronic alcohol dependence admitted with with confusion. Diagnosis of acute alcohol withdrawal was made admitted to regular nursing floor for further management 1. Acute encephalopathy ? Secondary to toxic encephalopathy from acute alcohol withdrawal admitted to regular nursing floor for treatment of underlying condition 2. Acute alcohol withdrawal - Patient has been admitted for treatment with phenobarb taper in addition to adjuvant medications including gabapentin, Bentyl, hydroxyzine and clonidine as needed for alcohol withdrawal symptoms. Patient was also placed on thiamine and folic acidConsultation placed to 180 counseling services 3. Hypokalemia ? Corrected per protocol 4. Hyponatremia ? Secondary to beer potomania do expect improvement patient is on fluids with subsequent monitoring of electrolytes ordered 5. Hypertension - Blood pressure controlled, home medications continued with dose adjustment as needed 6. Lung nodule ? Measuring 11 mm right base plan is for patient to follow-up with outpatient imaging studies by PCP 7. Anemia - Secondary to chronic disorder. Red cell indicis consistent with microcytosis possibly related to his underlying chronic alcohol use. Ordered iron studies as well as B12. Monitoring H&H and transfuse if patient becomes symptomatic or hemoglobin falls below 7 8. Thrombocytopenia ? Secondary to chronic alcohol dependence 9. Tobacco dependence - Counseled on cessation, offered nicotine patch for tobacco cravings 10. DVT prophylaxis ? Bilateral SCDs Time spent in the patient's overall evaluation,decision-making process, review of diagnostic data, adjustment of management, discussion with other providers, nursing nursing and ancillary staff involved in patient's care documentation, 50 Minutes Charges/Coding Visit Charges Inpatient E&M: 91373 Subs Hosp L3
[2023-12-19 08:53] LABS: Hemoglobin A1c 4.9 % (3.8-5.6)
--- NOTE | 2023-12-19 09:04 | CASEMGMT ---
Addendum entered by Scarlet Dash 12/19/23 11:09: JAIDEN HANSON Assessment: Face to Face with pt for initial transition planning/care coordination assessment. JAIDEN HANSON introduced self and role at [facility], pt voices understanding and consents to assessment. Pt able to tell me his name, , and reports he is in the hospital. Care providers, pharmacy, and demographics verified/updated. Admitting Dx: ETOH Withdrawal PCP:Dr. Rajeev Villaseñor Specialists: None Insurance: [employer] per chart Prescription Benefit: yes LNOK: Spouse Veronica. Notes indicate pt is going through a divorce. Inquired if pt was still and he reports that the divorce is not yet finalized. Pt reports he still wants Veronica to remain as his emergency contact and for providers to speak with her. Confirmed with pt that he still wants his Mother Demetria luciano. Informed pt that we received a call from a person names Ashely who reports she is his sister. Pt confirmed that Ashely is his sister. Asked for permission to speak with Ashely. Pt gave verbal permission to speak with Ashely and stated she can be kept updated on his medical as well. Living Arrangements: Pt lives at home alone. Pt confirmed he still lives at the home on [address] Pt reports he lives there alone with his dogs. Inquired from pt who is caring for his dogs while in the hospital, pt reports that his spouse Veronica is who would be taking care of them. Transportation: Pt drives self and denies concerns with transportation. Pt reports that he only drives short distances. DME: None HHC/SNF: No history. Pt reports that he has not worked since and has been receiving disability. He reports he has had a hard time lately with bathing and getting dressed and that his walking has been off. Pt unable to elaborate on what he meant by off. Pt reports that he is drinking 6-7 drinks per day. Asked pt if he would be interested in rehab. Pt asked this mortgage or loan underwriter what kind of rehab? Asked pt if he would be interested in rehab for alcohol, pt declined to answer. Asked pt if he would be interested in physical rehab to get stronger, pt declined to answer. Pt aware that ARGENIS/DENISE will follow up on Thursday. Call placed to spouse Veronica to confirm she is caring for the pts dogs, no answer, VM left. Call placed to sister Ashely Encarnacion [phone] as pt gave this mortgage or loan underwriter verbal permission. No medical information discussed at this time, only pts prior level of function and currently living arrangements. Sister is an RN at [employer]. Sister reports that pt has not been eating or drinking, and has lost a lot of weight. She reports that pt is going through a divorce from his Veronica and that it is not yet finalized but will be in just a few days. Sister confirmed that pt lives alone at the residence on [address] and lives in another location, but she she believes that the spouse will get the house in the divorce, and the pt will not have anywhere to live. Sister reports that pt does have a history of ETOH but that it was decreased. She reports his spouse Veronica took him to his PCP in Sep and his platelets and liver enzymes were off. Sister reports that both she and his spouse worked together with the pt to apply for Medicaid and his card just came in the mail. She reports pt is on COBRA as well through December. She reports that pt has been struggling to do his ADLs and has fallen several times recently. She reports that Veronica told her that pt has been incontinent and his urine was dark orange to red. She is hopeful that pt can go to SNF and possibly transition to [facility] in [place]. Inquired if this was discussed with pt in the past. She reports that she and Veronica have discussed it with the pt and he was open to considering [facility]. Inquired on pts children as past notes indicated pt has children. Sister reports that the pt has 2 children, Brandon and Stephane. She reports that the are both legal adults and live locally but that pt has alienated himself due to his drinking and behaviors. Inquired from Sister if she had spoken to Veronica today as pt reports he has dogs and Veronica would be caring for them. Sister reports that she just got off the phone with Veronica when this mortgage or loan underwriter called. She reports Veronica has been caring for the dogs and is on her way to the home to clean it as well. Sister reports that she will let Veronica know that the hospital needs a copy of his Medicaid card. Sister reports that she and their brother Arley are coming to the hospital at 1230 to visit with the pt. Sister would also like to be pts HCP due to the family dynamics. Sister educated and aware that this would need to be a decision made by the pt and would need to be discussed at a later time. CM to follow. Advised pt to ask CM if any further question/concerns/needs arise, voices understanding. Pt Goal: Unable to determine at this time Plan: TBD Scarlet Dash MSN, RN, CCM Addendum entered by Scarlet Dash 12/19/23 09:58: Spoke with RN. Pt continues with AMS. CM will need to follow up on Thursday. Scarlet PELAYO, RN, CCM Original Note: RNCM attempted to meet with pt to complete assessment. Pt sleeping. RNCM to follow-up. Scarlet PELAYO, RN, CCM
[2023-12-19] MEDS: Thiamine Hydrochloride 100 MG Tablet PO (09:55)
[2023-12-19] MEDS: Losartan Potassium 50 MG Tablet PO (09:55)
[2023-12-19] MEDS: Multivitamins,Ther W-Minerals Tablet 1 TABLET PO (09:56)
[2023-12-19] MEDS: Folic Acid 1 MG Tablet PO (09:57)
[2023-12-19 11:20] LABS: Ferritin 3219 ng/mL (26-388); Iron 32 ug/dL (65-175); Iron Binding Capacity,Total 192 ug/dL (250-450); PERCENT IRON SATURATION 16.7 % (15.0-55.0)
[2023-12-19] MEDS: Pantoprazole Sodium 40 MG Tablet PO (14:12)
[2023-12-19] MEDS: LORazepam 2 MG/ML Syringe IV (14:40)
[2023-12-19] MEDS: 0.9% Saline Lock 10 ML Syringe IV (18:17)
[2023-12-20] VITALS (8 sets, daily range): BP systolic 113–123; BP diastolic 81–88; PULSE 70–96; RESP 16–18; TEMP 36.7–37.5; O2SAT 95–99; BMI 22.1
[2023-12-20] MEDS: Phenobarbital 32.4 MG Tablet PO ×5 (05:06→22:03)
[2023-12-20] MEDS: Acetaminophen 325 MG Tablet 650 MG PO ×2 (05:06→17:50)
[2023-12-20 06:48] LABS: Absolute Lymphocyte Count 0.68 X10^3/uL (0.83-4.51); Absolute Neutrophil Count 2.4 X10^3/uL (2.0-7.7); Basophil# 0.02 X10^3/uL; Basophil% 0.6 % (0-1); Eosinophil# 0.02 X10^3/uL; Eosinophils% 0.6 % (0-5); Hematocrit 28.9 % (40-54); Hemoglobin 9.9 g/dL (13.0-16.5); Lymphocyte # 0.68 X10^3/ul (0.83-4.51); Lymphocyte % 19.4 % (19-41); Mean Corp Hgb Conc 34.3 g/dL (32-36); Mean Corpuscular Volume 102.1 fL (80-94); Mean Platelet Vol. 11.7 fl (6.2-12.0); Monocyte# 0.39 X10^3/uL; Monocyte% 11.1 % (0-10); NRBC Flagged by Analyzer 0 % (0-5); Neutrophil # 2.36 X10^3/uL (2.7-7.7); Neutrophil % 67.4 % (47-70); POSITIVE COUNT YES; Platelet Count 78 K/mm3 (150-450); RBC Distribution Width CV 14.7 % (11.6-14.6); RBC Distribution Width SD 55.6 fl (35.1-43.9); Red Blood Count 2.83 M/mm3 (4.6-6.2); White Blood Count 3.5 K/mm3 (4.4-11.0)
--- NOTE | 2023-12-20 07:36 | PN.HOSP_ITS ---
Reason for Visit Reason for Visit: Diagnoses Alcohol use, unspecified with withdrawal, unspecified (12/19/23) Subjective Subjective Patient seen. Per nursing staff had a relatively uneventful night. Hemoglobin remains low at 9.9,. Also has hypokalemia as well as hypophosphatemia Objective Data Objective Data Vital Signs: Vital Signs Temp Pulse Resp BP Pulse Ox O2 Del Method 99.5 F H 85 18 123/88 H 97 Room Air 12/20/23 05:14 12/20/23 05:14 12/20/23 05:14 12/20/23 05:14 12/20/23 05:14 12/20/23 05:14 Oxygen Delivery Method Room Air Weight: 76.3 kg Body Mass Index (BMI) 22.1 Intake & Output: Intake and Output for Last 24 Hours 12/18/23 12/19/23 12/20/23 23:59 23:59 23:59 Intake Total 3200 / 3400 350 / 350 Output Total 250 / 400 600 / 600 Balance 2950 / 3000 -250 / -250 Lab / Micro Data 12/20/23 05:18 12/20/23 05:18 Labs: Laboratory Results - last 24 hr 12/19/23 05:53: Hemoglobin A1c 4.9, Iron 32 L, TIBC 192 L, Iron Saturation 16.7, Ferritin 3219 H 12/20/23 05:18: WBC 3.5 L, RBC 2.83 L, Hgb 9.9 L, Hct 28.9 L, MCV 102.1 H, MCH 35.0 H, MCHC 34.3, RDW Std Deviation 55.6 H, RDW Coeff of Saloni 14.7 H, Plt Count 78 L, MPV 11.7, Immature Gran % (Auto) 0.900, Neut % (Auto) 67.4, Lymph % (Auto) 19.4, [place] % (Auto) 11.1 H, Eos % (Auto) 0.6, Baso % (Auto) 0.6, Absolute Neuts (auto) 2.4, Absolute Lymphs (auto) 0.68 L, Nucleated RBC % 0 Micro: Microbiology 12/19/23 01:59 Mucosa - Nasopharyngeal Respiratory Panel (PCR) - Final 12/19/23 00:00 Urine, Clean Catch Legionella Antigen - Final 12/19/23 00:00 Urine, Clean Catch Streptococcus pneumoniae Antigen (M - Final 12/18/23 23:40 Mucosa - Nose SARS-CoV-2, Influenza & RSV (PCR) - Final Radiography Diagnostic Testing: Radiology Impression Liver Ultrasound 12/19/23 05:55 IMPRESSION: Hepatic steatosis with hepatomegaly. Mild sludge in the gallbladder without sonographic evidence of cholelithiasis. Electronically Signed: Ann Marie Sterling MD at 11:26 EDT , Physical Exam Narrative GENERAL: cooperative HEENT: Atraumatic; normocephalic EYES; Anicteric, Normal Conjunctiva NECK; supple, normal thyroid, RESPIRATORY: Diminished to auscultation CARDIOVASCULAR: Regular S1 S2, GI: soft, normoactive bowel sounds, : No Renal angle tenderness; EXTREMITIES: No edema, no clubbing, MUSCULOSKELETAL: no muscle wasting NEURO: Awake; no lateralizing signs. SKIN: No Rash PSYCH; Flat affect Assessment & Plan Assessment/Plan (1) Alcohol withdrawal: QUALIFIERS: Complication of substance-induced condition: with delirium Qualified Code(s): F10.931 - Alcohol use, unspecified with withdrawal delirium PLAN: Plan Patient is a 63-year-old gentleman with history of chronic alcohol dependence admitted with with confusion. Diagnosis of acute alcohol withdrawal was made admitted to regular nursing floor for further management 1. Acute encephalopathy ? Secondary to toxic encephalopathy from acute alcohol withdrawal admitted to regular nursing floor for treatment of underlying condition 2. Acute alcohol withdrawal - Patient has been admitted for treatment with phenobarb taper in addition to adjuvant medications including gabapentin, Bentyl, hydroxyzine and clonidine as needed for alcohol withdrawal symptoms. Patient was also placed on thiamine and folic acidConsultation placed to 180 counseling services ? 12/20/2023 patient has tolerated phenobarb taper well so far 3. Hypokalemia ? Corrected per protocol ? 12/20/2023; potassium remains low at 3.2 additional replacement given repeat labs ordered in the 4. Hyponatremia ? Secondary to beer potomania do expect improvement patient is on fluids with subsequent monitoring of electrolytes ordered ? 12/20/2023; sodium levels up to 135 5. Hypertension - Blood pressure controlled, home medications continued with dose adjustment as needed 6. Lung nodule ? Measuring 11 mm right base plan is for patient to follow-up with outpatient imaging studies by PCP 7. Anemia - Secondary to chronic disorder. Red cell indicis consistent with microcytosis possibly related to his underlying chronic alcohol use. Ordered iron studies as well as B12. Monitoring H&H and transfuse if patient becomes symptomatic or hemoglobin falls below 7 8. Thrombocytopenia ? Secondary to chronic alcohol dependence 9. Tobacco dependence - Counseled on cessation, offered nicotine patch for tobacco cravings 10. DVT prophylaxis ? Bilateral SCDs 11. Hypophosphatemia ? Corrected per protocol 12. Hypomagnesemia ? Corrected per protocol Time spent in the patient's overall evaluation,decision-making process, review of diagnostic data, adjustment of management, discussion with other providers, nursing nursing and ancillary staff involved in patient's care documentation, 52 Minutes Charges/Coding Visit Charges Inpatient E&M: 36320 Subs Hosp L3
[2023-12-20 07:55] LABS: AST(SGOT) 234 U/L (15-37); Alanine Aminotransfer ALT/SGPT 73 U/L (16-61); Albumin, Serum 2.5 g/dL (3.2-5.0); Alkaline Phosphatase 167 U/L (45-117); Anion Gap 7 (5-15); BUN 8 mg/dL (7-18); BUN/Creat Ratio 19.2 RATIO (10-20); Bilirubin, Direct 1.58 mg/dL (0.00-0.30); Calcium,Total 8.6 mg/dL (8.5-10.1); Chloride 100 mmol/L (98-107); Creatinine, Serum 0.42 mg/dL (0.70-1.30); EST Glomerular Filtration Rate 220 mL/min (>60); Est Glom Filt Rate - Afr Amer 266 mL/min (>60); Estimated Creatinine Clearance 194.28 ml/min; Glucose 98 mg/dL (74-106); Magnesium 1.7 mg/dL (1.6-2.6); Phosphorus 1.1 mg/dL (2.5-4.9); Potassium 3.2 mmol/L (3.5-5.1); Protein, Total 6.5 g/dL (6.4-8.2); Sodium Level 135 mmol/L (136-145)
[2023-12-20] MEDS: Losartan Potassium 50 MG Tablet PO (10:01)
[2023-12-20] MEDS: Multivitamins,Ther W-Minerals Tablet 1 TABLET PO (10:01)
[2023-12-20] MEDS: Pantoprazole Sodium 40 MG Tablet PO (10:01)
[2023-12-20] MEDS: Folic Acid 1 MG Tablet PO (10:01)
[2023-12-20] MEDS: Thiamine Hydrochloride 100 MG Tablet PO (10:01)
[2023-12-20] MEDS: Magnesium Chloride 64 MG Delay Rel.Tablet 128 MG PO ×2 (10:02→22:02)
[2023-12-20] MEDS: Na Biphos/Potassium Phosphate PACKET 1 PACKET PO ×3 (10:03→22:03)
[2023-12-20] MEDS: Potassium Chloride Oral Tablet 20 MEQ PO ×2 (10:03→17:50)
[2023-12-21] MEDS: Phenobarbital 32.4 MG Tablet PO ×5 (03:13→21:03)
[2023-12-21 04:02] VITALS: BP 146/107; PULSE 88; RESP 18; TEMP 36.8; O2SAT 97
[2023-12-21 05:27] LABS: Absolute Lymphocyte Count 0.65 X10^3/uL (0.83-4.51); Absolute Neutrophil Count 1.8 X10^3/uL (2.0-7.7); Basophil# 0.02 X10^3/uL; Basophil% 0.7 % (0-1); Eosinophil# 0.04 X10^3/uL; Eosinophils% 1.4 % (0-5); Hematocrit 28.8 % (40-54); Hemoglobin 9.8 g/dL (13.0-16.5); Lymphocyte # 0.65 X10^3/ul (0.83-4.51); Lymphocyte % 23.2 % (19-41); Mean Corpuscular Hgb 34.3 pg (27.0-32.0); Mean Corpuscular Volume 100.7 fL (80-94); Mean Platelet Vol. 11.8 fl (6.2-12.0); Monocyte% 10.7 % (0-10); NRBC Flagged by Analyzer 0 % (0-5); Neutrophil # 1.76 X10^3/uL (2.7-7.7); Neutrophil % 62.9 % (47-70); POSITIVE COUNT YES; Platelet Count 91 K/mm3 (150-450); RBC Distribution Width CV 14.8 % (11.6-14.6); RBC Distribution Width SD 54.9 fl (35.1-43.9); Red Blood Count 2.86 M/mm3 (4.6-6.2); White Blood Count 2.8 K/mm3 (4.4-11.0)
[2023-12-21 05:50] LABS: Anion Gap 6 (5-15); BUN 8 mg/dL (7-18); BUN/Creat Ratio 18.5 RATIO (10-20); Calcium,Total 8.8 mg/dL (8.5-10.1); Chloride 101 mmol/L (98-107); Creatinine, Serum 0.43 mg/dL (0.70-1.30); EST Glomerular Filtration Rate 211 mL/min (>60); Est Glom Filt Rate - Afr Amer 255 mL/min (>60); Estimated Creatinine Clearance 189.76 ml/min; Glucose 96 mg/dL (74-106); Potassium 3.3 mmol/L (3.5-5.1); Sodium Level 135 mmol/L (136-145)
[2023-12-21 05:51] VITALS: BMI 23.4
[2023-12-21] MEDS: Na Biphos/Potassium Phosphate PACKET 1 PACKET PO ×3 (06:51→21:03)
--- NOTE | 2023-12-21 07:44 | PCM.PN.HOSP ---
Reason for Visit Reason for Visit: Diagnoses Alcohol use, unspecified with withdrawal delirium (12/19/23) Alcohol use, unspecified with withdrawal, unspecified (12/19/23) Subjective Subjective Feeling ok. Objective Data Objective Data Vital Signs: Vital Signs Temp Pulse Resp BP Pulse Ox O2 Del Method 36.8 C 88 18 146/107 H 97 Room Air 12/21/23 04:02 12/21/23 04:02 12/21/23 04:02 12/21/23 04:02 12/21/23 04:02 12/21/23 04:02 Oxygen Delivery Method Room Air Weight: 80.5 kg Body Mass Index (BMI) 23.4 Intake & Output: Intake and Output for Last 24 Hours 12/19/23 12/20/23 12/21/23 23:59 23:59 23:59 Intake Total 3200 / 3400 350 / 350 300 / 300 Output Total 250 / 400 1650 / 1650 400 / 400 Balance 2950 / 3000 -1300 / -1300 -100 / -100 Lab / Micro Data 12/21/23 04:50 12/21/23 04:50 Labs: Laboratory Results - last 24 hr 12/20/23 05:18: Sodium 135 L, Potassium 3.2 L, Chloride 100, Carbon Dioxide 28.0, Anion Gap 7, BUN 8, Creatinine 0.42 L, Estim Creat Clear Calc 194.28, Est GFR (MDRD) Af Amer 266, Est GFR (MDRD) Non-Af 220, BUN/Creatinine Ratio 19.2, Glucose 98, Calcium 8.6, Phosphorus 1.1 L*, Magnesium 1.7, Total Bilirubin 2.20 H, Direct Bilirubin 1.58 H, AST 234 H, ALT 73 H, Alkaline Phosphatase 167 H, Total Protein 6.5, Albumin 2.5 L, Globulin 4.0 12/21/23 04:50: WBC 2.8 L, RBC 2.86 L, Hgb 9.8 L, Hct 28.8 L, MCV 100.7 H, MCH 34.3 H, MCHC 34.0, RDW Std Deviation 54.9 H, RDW Coeff of Saloni 14.8 H, Plt Count 91 L, MPV 11.8, Immature Gran % (Auto) 1.100 H, Neut % (Auto) 62.9, Lymph % (Auto) 23.2, [place] % (Auto) 10.7 H, Eos % (Auto) 1.4, Baso % (Auto) 0.7, Absolute Neuts (auto) 1.8 L, Absolute Lymphs (auto) 0.65 L, Nucleated RBC % 0, Sodium 135 L, Potassium 3.3 L, Chloride 101, Carbon Dioxide 28.0, Anion Gap 6, BUN 8, Creatinine 0.43 L, Estim Creat Clear Calc 189.76, Est GFR (MDRD) Af Amer 255, Est GFR (MDRD) Non-Af 211, BUN/Creatinine Ratio 18.5, Glucose 96, Calcium 8.8 Micro: Microbiology 12/19/23 01:59 Mucosa - Nasopharyngeal Respiratory Panel (PCR) - Final 12/19/23 00:00 Urine, Clean Catch Legionella Antigen - Final 12/19/23 00:00 Urine, Clean Catch Streptococcus pneumoniae Antigen (M - Final 12/18/23 23:40 Mucosa - Nose SARS-CoV-2, Influenza & RSV (PCR) - Final Physical Exam Const alert Constitutional Narrative: subtle shaking in UE. Resp normal respiratory effort and no retractions GI Auscultation: hyperactive bowel sounds and hypoactive bowel sounds Extremity normal to inspection and full ROM Psych affect normal Assessment & Plan Assessment/Plan (1) Alcohol withdrawal: QUALIFIERS: Complication of substance-induced condition: with delirium Qualified Code(s): F10.931 - Alcohol use, unspecified with withdrawal delirium PLAN: Plan Acute metabolic encephalopathy 2/2 acute alcohol withdrawal treat the underlying withdrawal. Acute alcohol withdrawal Last drink was 2 days prior to presentation. Phenobarbital taper in addition to adjuvant medications including gabapentin, Bentyl, hydroxyzine and clonidine as needed for alcohol withdrawal symptoms. Patient was also placed on thiamine and folic acid Addiction medicine to facilitate outpt treatment program. Hypokalemia, Hypomagnesemia, Hypophosphatemia potassium still low despite replacement. Recheck magnesium phosphorus levels. Hyponatremia Likely secondary to beer potomania. Appears to be stable at this time. Anemia Iron low at 32 but ferritin is very high at 3219. MCV consistent with macrocytosis. Folate low. On replacement. B12 pending. check transferrin Thrombocytopenia unclear etiology monitor Hyperbilirubinemia US shows hepatic steatosis w hepatomegaly Chronic conditions Hypertension- Blood pressure controlled. Continue with losartan., home medications continued with dose adjustment as needed Lung nodule? Measuring 11 mm right base plan is for patient to follow-up with outpatient imaging studies by PCP Tobacco dependence- Counseled on cessation, offered nicotine patch for tobacco cravings DVT prophylaxis? Bilateral SCDs Charges/Coding Visit Charges Inpatient E&M: 18799 Subs Hosp L2
[2023-12-21 08:21] LABS: Magnesium 1.4 mg/dL (1.6-2.6); Phosphorus 1.1 mg/dL (2.5-4.9)
[2023-12-21 08:50] LABS: Vitamin B12 851 pg/mL (211-911)
[2023-12-21 09:05] VITALS: BP 101/80; PULSE 117; RESP 18; TEMP 36.4; O2SAT 96
[2023-12-21] MEDS: Losartan Potassium 50 MG Tablet PO (09:24)
[2023-12-21] MEDS: Multivitamins,Ther W-Minerals Tablet 1 TABLET PO (09:25)
[2023-12-21] MEDS: Pantoprazole Sodium 40 MG Tablet PO (09:25)
[2023-12-21] MEDS: Folic Acid 1 MG Tablet PO (09:25)
[2023-12-21] MEDS: Thiamine Hydrochloride 100 MG Tablet PO (09:25)
[2023-12-21] MEDS: Magnesium Chloride 64 MG Delay Rel.Tablet 128 MG PO ×2 (09:25→21:04)
[2023-12-21] MEDS: Potassium Chloride Oral Tablet 20 MEQ 40 MEQ PO (09:25)
[2023-12-21] MEDS: 0.9% Normal Saline (250mL Bag) 250 ML 15 ML IV (09:26)
[2023-12-21] MEDS: Magnesium Sulfate 4gm/100mL 4 GM/100 ML IV.SOLN. IV (09:26)
[2023-12-21] MEDS: Potassium Phosphate 40 MM in 0.9% Normal Saline (500mL Bag) 500 ML 62.5 MM IV (09:49)
--- NOTE | 2023-12-21 11:44 | CASEMGMT ---
Addendum entered by Nilsa Masters 12/21/23 14:59: Social Work SW met with pt to again discuss discharge plan. Pt stating he will not go to a nursing facility for rehab. Pt indicates he can return home and that can assist. Per RNCM note, pt and are in the middle of a divorce but still . Pt denies having completed a HCPOA. SW informed pt that will be called to confirm dc plan. Pt did not respond. VM left with pt's Veronica requesting return call to discuss discharge plan. SW will await return call. KATHRYN Chaney Original Note: Social Work SW met with pt and introduced self and role of SW. Pt sitting up in chair awake and alert. SW attempting to engage in conversation with pt. Pt is very slow to respond to all questions. Most questions pt answers and others he does not. Pt is able to state correctly that he is in a hospital in [place], it is Thursday, that it is 2023 and his address and city. Pt unable to identify the month. Pt states that he lives in his home and his lives there at times, but not always. SW spoke with pt regarding alcohol use. Pt does state that he drinks daily 40% Vodka but does not answer how much he drinks each day. Sw spoke with pt regarding functional limitations. Pt does indicate that he is in need of physical rehab. A list of SNF providers including quality and resource use data and consistent with the patient?s preferred geographic region, medical needs, and insurance network were provided from the [facility] Guide. SW reviewed list with pt. When asked about choosing a facility, pt remains silent. SW inquired about calling a family member to assist in making decisions and pt does state No I will make the decision. However, pt is not engaging with SW in this conversation. Not answering any questions regarding placement or preferences. SW informed Pt that SW will return to pt room later today to continue to discuss discharge plan. KATHRYN Chaney
--- NOTE | 2023-12-21 14:59 | CASEMGMT ---
Social Work SW inquired with pt about Health Care POA. Pt states he has never completed this document. Pt is not appropriate at this time to complete documents. SW will readdress if pt becomes more appropriate during hospital stay. KATHRYN Chaney
[2023-12-21 16:00] VITALS: BP 102/76; PULSE 96; RESP 18; TEMP 37.1; O2SAT 100
[2023-12-21 21:00] VITALS: BP 114/81; PULSE 93; RESP 18; TEMP 37.1; O2SAT 93
[2023-12-21] MEDS: Mirtazapine 30 MG Tablet PO (21:04)
[2023-12-22] VITALS (13 sets, daily range): BP systolic 68–131; BP diastolic 41–91; PULSE 89–112; RESP 18; TEMP 36.9–37.3; O2SAT 95–100; BMI 23.6; BMI 23.8
[2023-12-22] MEDS: Phenobarbital 32.4 MG Tablet PO ×2 (04:19→10:06)
[2023-12-22] MEDS: Na Biphos/Potassium Phosphate PACKET 1 PACKET PO ×3 (05:42→21:17)
[2023-12-22 07:23] LABS: Absolute Lymphocyte Count 0.84 X10^3/uL (0.83-4.51); Basophil# 0.03 X10^3/uL; Basophil% 0.9 % (0-1); Eosinophil# 0.03 X10^3/uL; Eosinophils% 0.9 % (0-5); Hematocrit 28.8 % (40-54); Hemoglobin 9.8 g/dL (13.0-16.5); Lymphocyte # 0.84 X10^3/ul (0.83-4.51); Lymphocyte % 25.2 % (19-41); Mean Corpuscular Hgb 34.4 pg (27.0-32.0); Mean Corpuscular Volume 101.1 fL (80-94); Mean Platelet Vol. 11.5 fl (6.2-12.0); NRBC Flagged by Analyzer 0 % (0-5); Neutrophil # 2.01 X10^3/uL (2.7-7.7); Neutrophil % 60.4 % (47-70); Platelet Count 111 K/mm3 (150-450); RBC Distribution Width CV 15.5 % (11.6-14.6); RBC Distribution Width SD 57.1 fl (35.1-43.9); Red Blood Count 2.85 M/mm3 (4.6-6.2); White Blood Count 3.3 K/mm3 (4.4-11.0)
--- NOTE | 2023-12-22 07:52 | PN.HOSP_ITS ---
Reason for Visit Reason for Visit: Diagnoses Alcohol use, unspecified with withdrawal delirium (12/19/23) Alcohol use, unspecified with withdrawal, unspecified (12/19/23) Subjective Subjective Denies complaints. Later, noted by nrsg to have a SBP of 60. Improved after IVF. Objective Data Objective Data Vital Signs: Vital Signs Temp Pulse Resp BP Pulse Ox O2 Del Method 37.1 C 93 18 126/82 H 95 Room Air 12/22/23 04:18 12/22/23 04:18 12/22/23 04:18 12/22/23 04:18 12/22/23 07:50 12/22/23 07:50 Oxygen Delivery Method Room Air Weight: 81.9 kg Body Mass Index (BMI) 23.8 Intake & Output: Intake and Output for Last 24 Hours 12/20/23 12/21/23 12/22/23 23:59 23:59 23:59 Intake Total 350 / 350 1290.8333 / 1290.8333 Output Total 1650 / 1650 650 / 650 Balance -1300 / -4361 054.8838 / 640.8333 Lab / Micro Data 12/22/23 06:20 12/22/23 06:20 Labs: Laboratory Results - last 24 hr 12/19/23 05:53: Vitamin B12 851 12/21/23 04:50: Phosphorus 1.1 L*, Magnesium 1.4 L 12/22/23 06:20: WBC 3.3 L, RBC 2.85 L, Hgb 9.8 L, Hct 28.8 L, MCV 101.1 H, MCH 34.4 H, MCHC 34.0, RDW Std Deviation 57.1 H, RDW Coeff of Saloni 15.5 H, Plt Count 111 L, MPV 11.5, Immature Gran % (Auto) 0.600, Neut % (Auto) 60.4, Lymph % (Auto) 25.2, [place] % (Auto) 12.0 H, Eos % (Auto) 0.9, Baso % (Auto) 0.9, Absolute Neuts (auto) 2.0, Absolute Lymphs (auto) 0.84, Nucleated RBC % 0 Micro: Microbiology 12/19/23 00:36 Blood Culture (Wb) - Left Hand Blood Culture - Preliminary No growth in 48 hours. 12/19/23 00:13 Blood Culture (Wb) - Left Hand Blood Culture - Preliminary No growth in 48 hours. 12/18/23 23:02 Urine, Clean Catch Urine Culture - Final Mixed Gram Positive Organisms 12/19/23 01:59 Mucosa - Nasopharyngeal Respiratory Panel (PCR) - Final 12/19/23 00:00 Urine, Clean Catch Legionella Antigen - Final 12/19/23 00:00 Urine, Clean Catch Streptococcus pneumoniae Antigen (M - Final 12/18/23 23:40 Mucosa - Nose SARS-CoV-2, Influenza & RSV (PCR) - Final Physical Exam Const alert and no apparent distress Constitutional Narrative: slightly groggy. HEENT head/scalp atraumatic and moist oral mucous membranes Resp normal respiratory effort and no retractions Extremity normal to inspection Neuro Sensorium / Orientation: awake and alert Psych Psych Narrative: flat affect. Assessment & Plan Assessment/Plan (1) Alcohol withdrawal: QUALIFIERS: Complication of substance-induced condition: with delirium Qualified Code(s): F10.931 - Alcohol use, unspecified with withdrawal delirium PLAN: Plan Acute metabolic encephalopathy * 2/2 acute alcohol withdrawal * treat the underlying withdrawal. * deescalate medications: phenobarbital, gabapentin,trazodone. Acute alcohol withdrawal * Last drink was 2 days prior to presentation. * Phenobarbital taper in addition to adjuvant medications including gabapentin, Bentyl, hydroxyzine and clonidine as needed for alcohol withdrawal symptoms. Patient was also placed on thiamine and folic acid * Addiction medicine to facilitate outpt treatment program. Hypokalemia, Hypomagnesemia, Hypophosphatemia * potassium still low despite replacement. * Recheck magnesium phosphorus levels. Hyponatremia * Likely secondary to beer potomania. Appears to be stable at this time. pancytopenia * suspect due to underlying liver disease * Anemia * Iron low at 32 but ferritin is very high at 3219. MCV consistent with macrocytosis. Folate low. On replacement. B12 pending. * check transferrin * Thrombocytopenia * unclear etiology * monitor hypotension * transient, resolved * dc losartan * check AM cortisol Hyperbilirubinemia * US shows hepatic steatosis w hepatomegaly * suspect due to underlying liver disease. At least due to alcohol, but with elevated ferritin, cannot rule out hemochromatosis. * follow up with GI as outpt. Chronic conditions * Hypertension- Blood pressure controlled. Continue with losartan., home medications continued with dose adjustment as needed * Lung nodule? Measuring 11 mm right base plan outpt followup with pulmonary. * Tobacco dependence- Counseled on cessation, offered nicotine patch for tobacco cravings DVT prophylaxis? Bilateral SCDs Charges/Coding Visit Charges Inpatient E&M: 02647 Subs Hosp L2
[2023-12-22 08:00] LABS: ALB/GLOB Ratio 0.6 RATIO (0.9-2.4); AST(SGOT) 223 U/L (15-37); Alanine Aminotransfer ALT/SGPT 87 U/L (16-61); Albumin, Serum 2.4 g/dL (3.2-5.0); Alkaline Phosphatase 195 U/L (45-117); Anion Gap 7 (5-15); BUN 8 mg/dL (7-18); BUN/Creat Ratio 16.4 RATIO (10-20); Calcium,Total 8.7 mg/dL (8.5-10.1); Chloride 103 mmol/L (98-107); Creatinine, Serum 0.49 mg/dL (0.70-1.30); EST Glomerular Filtration Rate 184 mL/min (>60); Est Glom Filt Rate - Afr Amer 222 mL/min (>60); Estimated Creatinine Clearance 174.38 ml/min; Globulin 4.2 g/dL (2.2-4.2); Glucose 86 mg/dL (74-106); Potassium 3.9 mmol/L (3.5-5.1); Protein, Total 6.6 g/dL (6.4-8.2); Sodium Level 135 mmol/L (136-145)
[2023-12-22] MEDS: Magnesium Chloride 64 MG Delay Rel.Tablet 128 MG PO ×2 (09:07→21:17)
[2023-12-22] MEDS: Losartan Potassium 50 MG Tablet PO (09:07)
[2023-12-22] MEDS: Folic Acid 1 MG Tablet PO (09:07)
[2023-12-22] MEDS: Thiamine Hydrochloride 100 MG Tablet PO (09:07)
[2023-12-22] MEDS: Pantoprazole Sodium 40 MG Tablet PO (09:07)
[2023-12-22] MEDS: Multivitamins,Ther W-Minerals Tablet 1 TABLET PO (09:07)
--- NOTE | 2023-12-22 09:43 | CASEMGMT ---
Addendum entered by Indiana Reyes 12/22/23 11:13: Social Work SW did send referral to [facility] via [facility]. As per [facility], they will review when pt is more medically stable. MARA Selby Addendum entered by Indiana Reyes 12/22/23 10:50: Social Work SW spoke w/pt again, reviewed choices and the distances the facilities are from [place]. He is agreeable to referrals to [facility] and [facility]. SW made the referral to [facility] and will make the referral to [facility] shortly. MARA Selby Original Note: Social Work Pt's Veronica called back, message left. She states that she and pt will be in next couple of weeks. She states Monika Encarnacion is the main contact for pt, and Monika wanted pt to go to TCU. Her number is [phone]. SW spoke w/pt in room about discharge plan. Pt is very slow to respond to every question. Pt states may be agreeable to going to a long term facility for rehab. He did confirm Monika is helping w/decisions. SW reviewed the list w/pt, though pt is awake, he is not able to tell SW where he would want to go for rehab. He was able to state he would like to be close to [place]. PT/OT came in, SW explained will see how far each facility is from [place] and will return after PT/OT is completed. SW will continue to follow. MARA Selby
--- NOTE | 2023-12-22 12:44 | CASEMGMT ---
Social Work Pt's sister called in asking to speak w/SW. SW let pt know that his sister called in regarding his discharge plan, he is agreeable to SW calling her back and updating her. He had said prior to this SW today that pt's sister is helping w/decisionmaking. Pt still very slow to respond. SW called pt's sister Monika to let her know the discharge plan. SW explained that referrals were made to both [facility] and [facility] per pt's request. SW spoke w/Monika about both facilities, explained that [facility] does have intermediate frame tender care, [facility] is really for short term. Monika explained that pt is not able to care for himself. She states he has fallen several times. She states that she and Veronica(pt's soon to be exwife) have been checking on pt at home as he is living home alone, states he has really declined recently. She states he is dehydrated, not eating, depressed. She states that eventually he may be a candidate for assisted living, but does think after skilled time he may need longer term care. She explained pt's [facility] is a COBRA plan paid until the end of the month. She and Veronica helped pt get signed up for Medicaid. SW did explain to Monika that there are different types of Medicaid, and that if pt goes to [facility] with the idea that pt may need longer term care, they should be able to help pt get the correct Medicaid for intermediate frame tender care, depending on his finances. After discussing all of this, Monika would prefer pt go to [facility], rather than go to [facility] and then have to transfer somewhere else. ARGENIS explained that does make sense, did also explain that [facility] may not take pt anyway due to his needing placement more longer term. Pt's sister also asked about POA for healthcare. She states that she and pt have spoken about it in the past and pt did want Monika to be POA. She states that she, and their two brothers Arley and Shabbir have been supportive to pt. ARGENIS explained that if pt becomes more alert and oriented, we can complete POA for healthcare w/pt. However today he is still not awake and alert enough to do the documents. Pt's sister states understanding. She asked about financial POA, SW redirected her to speak w/the [employer] he uses, as they may have their own document they prefer. Monika asked if we cannot do POA here, can [facility]. ARGENIS explained will call [facility] to let them know. Pt's sister states understanding. SW will keep her informed as we go through the insurance process, and will also let her know when pt is medically ready for discharge. ARGENIS called [facility]. ARGENIS let her know that pt may need longer term placement, possibly [place] eventually. ARGENIS also let her know that if we are not able to complete POA paperwork here, pt may need follow up on this. ARGENIS explained pt's insurance situation. Yousuf states they can follow up on all of this. She states will start precert today, SW will let her know when pt is medically ready. ARGENIS also gave her Monika's contact info. ARGENIS will continue to follow. Plan: [facility] skilled, pending precert. MARA Selby
[2023-12-22 13:08] LABS: Transferrin 151 mg/dL (177-329)
--- NOTE | 2023-12-22 14:19 | CASEMGMT ---
Addendum entered by [place] Reyes 12/22/23 15:59: Social Work SW attempted to updated pt's sister that pt is definitely not being discharged today, however her voicemail is full. MARA Selby Original Note: Social Work SW did attempt to go into room to let pt know that the plan will be for [facility]. However, pt is not feeling well at present. SW will follow up when appropriate. MARA Selby
--- NOTE | 2023-12-22 14:57 | NURSING ---
Walked in pt room to do vital signs, he was sitting in chair sleeping. He responded to voice. Tool v/s and BP was 68/41 took several other times with all readings in 60's/40's. This RN and HIGHWAY MAINTAINER tipped pt back into his chair and bp came up to 93/56. Charge nurse texted Dr Rodriguez to let him be aware of v/s. Other than BP pt was at baseline. Pt still had a IV bag of NS so it was started at 500ml/hr till it finished. V/s were monitored the whole time and Dr. Rodriguez was aware fluids were started. He will take a look at pt labs and v/s and go from there. Last BP after fluid was 96/64.
[2023-12-22] MEDS: 0.9% Saline Lock 10 ML Syringe IV (21:22)
[2023-12-23 02:11] VITALS: BP 136/96; PULSE 99; RESP 18; TEMP 37.2; O2SAT 96
[2023-12-23] MEDS: DiphenhydrAMINE 50 MG/ML Syringe 25 MG IV ×2 (02:14→22:55)
[2023-12-23] MEDS: 0.9% Saline Lock 10 ML Syringe IV (02:14)
[2023-12-23 06:00] VITALS: BMI 23.0
[2023-12-23 06:20] VITALS: BP 114/87; BP 123/91; BP 131/91; PULSE 106; PULSE 122; PULSE 90
[2023-12-23] MEDS: Na Biphos/Potassium Phosphate PACKET 1 PACKET PO ×3 (06:36→22:55)
[2023-12-23 06:57] VITALS: O2SAT 95
--- NOTE | 2023-12-23 07:47 | PN.HOSP_ITS ---
Reason for Visit Reason for Visit: Diagnoses Alcohol use, unspecified with withdrawal delirium (12/19/23) Alcohol use, unspecified with withdrawal, unspecified (12/19/23) Subjective Subjective Denies complaints. He said he has fallen at home. Objective Data Objective Data Vital Signs: Vital Signs Temp Pulse Resp BP Pulse Ox O2 Del Method 37.2 C 90 18 131/91 H 95 Room Air 12/23/23 02:11 12/23/23 06:20 12/23/23 02:11 12/23/23 06:20 12/23/23 06:57 12/23/23 06:57 Oxygen Delivery Method Room Air Weight: 79.1 kg Body Mass Index (BMI) 23.0 Intake & Output: Intake and Output for Last 24 Hours 12/21/23 12/22/23 12/23/23 23:59 23:59 23:59 Intake Total 1290.8333 / 1290.8333 872.5 / 872.5 200 / 200 Output Total 650 / 650 100 / 100 Balance 640.8333 / 640.8333 872.5 / 872.5 100 / 100 Lab / Micro Data 12/22/23 06:20 12/23/23 06:10 Labs: Laboratory Results - last 24 hr 12/21/23 04:50: Transferrin 151 L 12/22/23 06:20: Sodium 135 L, Potassium 3.9, Chloride 103, Carbon Dioxide 25.0, Anion Gap 7, BUN 8, Creatinine 0.49 L, Estim Creat Clear Calc 174.38, Est GFR (MDRD) Af Amer 222, Est GFR (MDRD) Non-Af 184, BUN/Creatinine Ratio 16.4, Glucose 86, Calcium 8.7, Total Bilirubin 2.10 H, AST 223 H, ALT 87 H, Alkaline Phosphatase 195 H, Total Protein 6.6, Albumin 2.4 L, Globulin 4.2, Albumin/Globulin Ratio 0.6 L Micro: Microbiology 12/19/23 00:36 Blood Culture (Wb) - Left Hand Blood Culture - Preliminary No growth in 48 hours. 12/19/23 00:13 Blood Culture (Wb) - Left Hand Blood Culture - Preliminary No growth in 48 hours. 12/18/23 23:02 Urine, Clean Catch Urine Culture - Final Mixed Gram Positive Organisms 12/19/23 01:59 Mucosa - Nasopharyngeal Respiratory Panel (PCR) - Final 12/19/23 00:00 Urine, Clean Catch Legionella Antigen - Final 12/19/23 00:00 Urine, Clean Catch Streptococcus pneumoniae Antigen (M - Final 12/18/23 23:40 Mucosa - Nose SARS-CoV-2, Influenza & RSV (PCR) - Final Physical Exam Const alert and no apparent distress Constitutional Narrative: Awoke. Was very difficult to speak and had slow movements. Resp normal respiratory effort, no retractions and no use of accessory muscles Neuro Sensorium / Orientation: awake and alert Assessment & Plan Assessment/Plan (1) Alcohol withdrawal: QUALIFIERS: Complication of substance-induced condition: with delirium Qualified Code(s): F10.931 - Alcohol use, unspecified with withdrawal delirium PLAN: Plan Acute metabolic encephalopathy * 2/2 acute alcohol withdrawal * treat the underlying withdrawal. * deescalate medications: phenobarbital, gabapentin,trazodone. Acute alcohol withdrawal * Last drink was 2 days prior to presentation. * Phenobarbital taper in addition to adjuvant medications including gabapentin, Bentyl, hydroxyzine and clonidine as needed for alcohol withdrawal symptoms. Patient was also placed on thiamine and folic acid * Addiction medicine to facilitate outpt treatment program. Hypokalemia, Hypomagnesemia, Hypophosphatemia * potassium still low despite replacement. * Recheck magnesium phosphorus levels. Hyponatremia * Likely secondary to beer potomania. Appears to be stable at this time. pancytopenia * suspect due to underlying liver disease * Anemia * Iron low at 32 but ferritin is very high at 3219. MCV consistent with macrocytosis. Folate low. On replacement. B12 pending. * check transferrin * Thrombocytopenia * unclear etiology * monitor hypotension * transient, resolved * dc losartan * check AM cortisol * Blood pressure dropped from 131 lying to 114 standing. Heart rate remained re latively the same actually went down upon standing. Hyperbilirubinemia * US shows hepatic steatosis w hepatomegaly * suspect due to underlying liver disease. At least due to alcohol, but with elevated ferritin, cannot rule out hemochromatosis. * follow up with GI as outpt. Debility * Waiting on placement acceptance. * Discussed with the patient that I am concerned that he may have a neurologic condition, more specifically multisystem atrophy, did recommend that he follow-up with a neurologist for further evaluation. Chronic conditions * Hypertension- Blood pressure controlled. Continue with losartan., home medications continued with dose adjustment as needed * Lung nodule? Measuring 11 mm right base plan outpt followup with pulmonary. * Tobacco dependence- Counseled on cessation, offered nicotine patch for tobacco cravings DVT prophylaxis? Bilateral SCDs Charges/Coding Visit Charges Inpatient E&M: 54300 Subs Hosp L2
[2023-12-23 09:14] LABS: ALB/GLOB Ratio 0.6 RATIO (0.9-2.4); AST(SGOT) 245 U/L (15-37); Alanine Aminotransfer ALT/SGPT 102 U/L (16-61); Albumin, Serum 2.5 g/dL (3.2-5.0); Alkaline Phosphatase 215 U/L (45-117); Anion Gap 7 (5-15); BUN 9 mg/dL (7-18); BUN/Creat Ratio 17.3 RATIO (10-20); Chloride 101 mmol/L (98-107); Creatinine, Serum 0.52 mg/dL (0.70-1.30); EST Glomerular Filtration Rate 171 mL/min (>60); Est Glom Filt Rate - Afr Amer 206 mL/min (>60); Estimated Creatinine Clearance 162.68 ml/min; Globulin 4.3 g/dL (2.2-4.2); Glucose 89 mg/dL (74-106); Magnesium 1.5 mg/dL (1.6-2.6); Phosphorus 2.9 mg/dL (2.5-4.9); Potassium 3.9 mmol/L (3.5-5.1); Protein, Total 6.8 g/dL (6.4-8.2); Sodium Level 134 mmol/L (136-145)
[2023-12-23 10:00] VITALS: BP 112/94; PULSE 79; RESP 18; TEMP 37.2; O2SAT 96
[2023-12-23] MEDS: Pantoprazole Sodium 40 MG Tablet PO (10:23)
[2023-12-23] MEDS: Multivitamins,Ther W-Minerals Tablet 1 TABLET PO (10:23)
[2023-12-23] MEDS: Thiamine Hydrochloride 100 MG Tablet PO (10:23)
[2023-12-23] MEDS: Folic Acid 1 MG Tablet PO (10:23)
[2023-12-23] MEDS: Magnesium Chloride 64 MG Delay Rel.Tablet 128 MG PO ×2 (10:23→22:54)
[2023-12-23 15:07] VITALS: BP 112/90; PULSE 97; RESP 18; TEMP 36.8; O2SAT 98
[2023-12-23 23:00] VITALS: BP 122/87; PULSE 85; RESP 18; TEMP 36.6; O2SAT 98
[2023-12-24] MEDS: traZODone 100 MG Tablet PO (01:48)
[2023-12-24 02:35] VITALS: BP 108/80; PULSE 85; RESP 18; TEMP 37.1; O2SAT 96
[2023-12-24] MEDS: Menthol/Lanolin/Calamine/Znox 113 GM Tube 1 APPLIC TOPICAL ×3 (05:29→20:36)
[2023-12-24] MEDS: Nystatin Powder 15gm Bottle 1 APPLIC TOPICAL ×3 (05:29→20:36)
[2023-12-24] MEDS: Na Biphos/Potassium Phosphate PACKET 1 PACKET PO (05:29)
[2023-12-24 06:00] VITALS: BMI 23.3
[2023-12-24 07:30] VITALS: PULSE 90
[2023-12-24 07:41] VITALS: BP 108/80; PULSE 89; RESP 18; TEMP 37.5; O2SAT 95
--- NOTE | 2023-12-24 08:53 | CASEMGMT ---
Discharge Planning Updates sent to via [facility]. Chelita Friedman DC Planning Asst.
--- NOTE | 2023-12-24 09:12 | PN.HOSP_ITS ---
Reason for Visit Reason for Visit: Diagnoses Alcohol use, unspecified with withdrawal delirium (12/19/23) Alcohol use, unspecified with withdrawal, unspecified (12/19/23) Subjective Subjective States that he feels well. Noted to have a rash today. He denies any pruritus. Objective Data Objective Data Vital Signs: Vital Signs Temp Pulse Resp BP Pulse Ox O2 Del Method 37.5 C H 89 18 108/80 95 Room Air 12/24/23 07:41 12/24/23 07:41 12/24/23 07:41 12/24/23 07:41 12/24/23 07:41 12/24/23 07:41 Oxygen Delivery Method Room Air Weight: 80.2 kg Body Mass Index (BMI) 23.3 Intake & Output: Intake and Output for Last 24 Hours 12/22/23 12/23/23 12/24/23 23:59 23:59 23:59 Intake Total 872.5 / 872.5 1750 / 1750 Output Total 100 / 100 Balance 872.5 / 872.5 1650 / 1650 Lab / Micro Data 12/22/23 06:20 12/23/23 06:10 Labs: Laboratory Results - last 24 hr 12/23/23 06:10: Sodium 134 L, Potassium 3.9, Chloride 101, Carbon Dioxide 26.0, Anion Gap 7, BUN 9, Creatinine 0.52 L, Estim Creat Clear Calc 162.68, Est GFR (MDRD) Af Amer 206, Est GFR (MDRD) Non-Af 171, BUN/Creatinine Ratio 17.3, Glucose 89, Calcium 9.0, Phosphorus 2.9, Magnesium 1.5 L, Total Bilirubin 2.20 H , AST 245 H, ALT 102 H, Alkaline Phosphatase 215 H, Total Protein 6.8, Albumin 2.5 L, Globulin 4.3 H, Albumin/Globulin Ratio 0.6 L Micro: Microbiology 12/19/23 00:13 Blood Culture (Wb) - Left Hand Blood Culture - Final No growth in 5 days. 12/19/23 00:36 Blood Culture (Wb) - Left Hand Blood Culture - Final No growth in 5 days. 12/18/23 23:02 Urine, Clean Catch Urine Culture - Final Mixed Gram Positive Organisms 12/19/23 01:59 Mucosa - Nasopharyngeal Respiratory Panel (PCR) - Final 12/19/23 00:00 Urine, Clean Catch Legionella Antigen - Final 12/19/23 00:00 Urine, Clean Catch Streptococcus pneumoniae Antigen (M - Final 12/18/23 23:40 Mucosa - Nose SARS-CoV-2, Influenza & RSV (PCR) - Final Physical Exam Const alert Constitutional Narrative: Up in bed. Listless but more alert than yesterday. Slow movements overall. Diffuse negative rash throughout. More prominent on the back. HEENT head/scalp atraumatic and moist oral mucous membranes Neuro moves all extremities Sensorium / Orientation: awake and alert Psych Psych Narrative: flat affect Assessment & Plan Assessment/Plan (1) Alcohol withdrawal: QUALIFIERS: Complication of substance-induced condition: with delirium Qualified Code(s): F10.931 - Alcohol use, unspecified with withdrawal delirium PLAN: Plan Acute metabolic encephalopathy * 2/2 acute alcohol withdrawal * treat the underlying withdrawal. * deescalate medications: phenobarbital, gabapentin,trazodone. Acute alcohol withdrawal * Last drink was 2 days prior to presentation. * Phenobarbital taper in addition to adjuvant medications including gabapentin, Bentyl, hydroxyzine and clonidine as needed for alcohol withdrawal symptoms. Patient was also placed on thiamine and folic acid * Addiction medicine to facilitate outpt treatment program. Hypokalemia, Hypomagnesemia, Hypophosphatemia * potassium still low despite replacement. * Recheck magnesium phosphorus levels. Hyponatremia * Likely secondary to beer potomania. Appears to be stable at this time. pancytopenia * suspect due to underlying liver disease * Anemia * Iron low at 32 but ferritin is very high at 3219. MCV consistent with macrocytosis. Folate low. On replacement. B12 pending. * check transferrin * Thrombocytopenia * unclear etiology * monitor hypotension * transient, resolved * dc losartan * check AM cortisol * Blood pressure dropped from 131 lying to 114 standing. Heart rate remained relatively the same actually went down upon standing. Hyperbilirubinemia * US shows hepatic steatosis w hepatomegaly * suspect due to underlying liver disease. At least due to alcohol, but with elevated ferritin, cannot rule out hemochromatosis. * follow up with GI as outpt. Debility * Waiting on placement acceptance. * Discussed with the patient that I am concerned that he may have a neurologic condition, more specifically multisystem atrophy, did recommend that he follow-up with a neurologist for further evaluation. Rash * Unclear etiology but I suspect its either a drug rash or a viral exanthem, I favor the former. * I discontinued much of his medications leaving only multivitamin, nicotine patch and topical nystatin and calamine. * Will check a viral panel though I feel it is less likely due to a viral exanthem. Chronic conditions * Hypertension- Blood pressure controlled. Continue with losartan., home medications continued with dose adjustment as needed * Lung nodule? Measuring 11 mm right base plan outpt followup with pulmonary. * Tobacco dependence- Counseled on cessation, offered nicotine patch for tobacco cravings DVT prophylaxis? Bilateral SCDs Charges/Coding Visit Charges Inpatient E&M: 23209 Subs Hosp L2
[2023-12-24] MEDS: Multivitamins,Ther W-Minerals Tablet 1 TABLET PO (09:24)
--- NOTE | 2023-12-24 12:53 | CASEMGMT ---
Social Work- SW Called to update sister, Monika on status of facility approval. KATHRYN Oates
[2023-12-24 14:14] VITALS: BP 104/68; PULSE 101; RESP 18; TEMP 37.3; O2SAT 95
[2023-12-24 14:16] VITALS: PULSE 100
[2023-12-24 20:00] VITALS: BP 120/85; PULSE 84; RESP 16; TEMP 36.9; O2SAT 100
[2023-12-24] MEDS: DiphenhydrAMINE 50 MG/ML Syringe 25 MG IV (20:37)
[2023-12-24] MEDS: 0.9% Saline Lock 10 ML Syringe IV (20:37)
[2023-12-25 02:00] VITALS: BP 124/65; PULSE 74; RESP 16; TEMP 36.6; O2SAT 95
[2023-12-25 04:01] VITALS: BMI 23.5
[2023-12-25 07:15] LABS: Absolute Lymphocyte Count 0.77 X10^3/uL (0.83-4.51); Absolute Neutrophil Count 1.8 X10^3/uL (2.0-7.7); Basophil# 0.02 X10^3/uL; Basophil% 0.6 % (0-1); Eosinophil# 0.05 X10^3/uL; Eosinophils% 1.6 % (0-5); Hematocrit 26.9 % (40-54); Lymphocyte # 0.77 X10^3/ul (0.83-4.51); Mean Corp Hgb Conc 33.5 g/dL (32-36); Mean Corpuscular Hgb 34.2 pg (27.0-32.0); Mean Corpuscular Volume 102.3 fL (80-94); Mean Platelet Vol. 11.2 fl (6.2-12.0); Monocyte# 0.43 X10^3/uL; NRBC Flagged by Analyzer 0 % (0-5); Neutrophil # 1.77 X10^3/uL (2.7-7.7); Neutrophil % 57.5 % (47-70); Platelet Count 173 K/mm3 (150-450); RBC Distribution Width CV 15.9 % (11.6-14.6); RBC Distribution Width SD 59.7 fl (35.1-43.9); Red Blood Count 2.63 M/mm3 (4.6-6.2); White Blood Count 3.1 K/mm3 (4.4-11.0)
[2023-12-25 07:43] LABS: ALB/GLOB Ratio 0.6 RATIO (0.9-2.4); AST(SGOT) 217 U/L (15-37); Alanine Aminotransfer ALT/SGPT 124 U/L (16-61); Albumin, Serum 2.4 g/dL (3.2-5.0); Alkaline Phosphatase 222 U/L (45-117); Anion Gap 5 (5-15); BUN 9 mg/dL (7-18); BUN/Creat Ratio 17.8 RATIO (10-20); Calcium,Total 8.4 mg/dL (8.5-10.1); Chloride 104 mmol/L (98-107); EST Glomerular Filtration Rate 176 mL/min (>60); Est Glom Filt Rate - Afr Amer 213 mL/min (>60); Globulin 4.2 g/dL (2.2-4.2); Glucose 84 mg/dL (74-106); Potassium 3.6 mmol/L (3.5-5.1); Protein, Total 6.6 g/dL (6.4-8.2); Sodium Level 134 mmol/L (136-145)
[2023-12-25 10:00] VITALS: BP 115/84; PULSE 99; RESP 18; TEMP 37.2; O2SAT 95
[2023-12-25] MEDS: Menthol/Lanolin/Calamine/Znox 113 GM Tube 1 APPLIC TOPICAL (10:08)
[2023-12-25] MEDS: Multivitamins,Ther W-Minerals Tablet 1 TABLET PO (10:08)
[2023-12-25] MEDS: Nystatin Powder 15gm Bottle 1 APPLIC TOPICAL (10:08)
--- NOTE | 2023-12-25 10:17 | TREXTCAR_ITS ---
Diet Diet Order/Speech Therapy: 12/19/23 01:40 Diet: Cardiac - Heart Healthy Food consistency:: Regular Liquid Consistency:: Regular/Thin Routine Orders/Code Status Routine Lab Work: - (CMP weekly ) Code Status: Full Code Therapies Weight Bearing: Full weight bearing Extremity Affected:: Bilateral Lower Physical Therapy: Eval and Treat Occupational Therapy: Eval and Treat Problem/Diagnosis (1) Alcohol withdrawal: Status: Acute Code(s): F10.939 - Alcohol use, unspecified with withdrawal, unspecified Plan Acute metabolic encephalopathy * 2/2 acute alcohol withdrawal * treat the underlying withdrawal. * deescalate medications: phenobarbital, gabapentin,trazodone. Acute alcohol withdrawal * Last drink was 2 days prior to presentation. * Phenobarbital taper in addition to adjuvant medications including gabapentin, Bentyl, hydroxyzine and clonidine as needed for alcohol withdrawal symptoms. Patient was also placed on thiamine and folic acid * Addiction medicine to facilitate outpt treatment program. Hypokalemia, Hypomagnesemia, Hypophosphatemia * potassium still low despite replacement. * Recheck magnesium phosphorus levels. Hyponatremia * Likely secondary to beer potomania. Appears to be stable at this time. pancytopenia * suspect due to underlying liver disease * Anemia * Iron low at 32 but ferritin is very high at 3219. MCV consistent with mac rocytosis. Folate low. On replacement. B12 pending. * check transferrin * Thrombocytopenia * unclear etiology * monitor hypotension * transient, resolved * dc losartan * check AM cortisol * Blood pressure dropped from 131 lying to 114 standing. Heart rate remained relatively the same actually went down upon standing. Hyperbilirubinemia * US shows hepatic steatosis w hepatomegaly * suspect due to underlying liver disease. At least due to alcohol, but with elevated ferritin, cannot rule out hemochromatosis. * follow up with GI as outpt. Debility * Waiting on placement acceptance. * Discussed with the patient that I am concerned that he may have a neurologic condition, more specifically multisystem atrophy, did recommend that he follow-up with a neurologist for further evaluation. Rash * Unclear etiology but I suspect its either a drug rash or a viral exanthem, I favor the former. * I discontinued much of his medications leaving only multivitamin, nicotine patch and topical nystatin and calamine. * Will check a viral panel though I feel it is less likely due to a viral exanthem. Chronic conditions * Hypertension- Blood pressure controlled. Continue with losartan., home medications continued with dose adjustment as needed * Lung nodule? Measuring 11 mm right base plan outpt followup with pulmonary. * Tobacco dependence- Counseled on cessation, offered nicotine patch for tobacco cravings DVT prophylaxis? Bilateral SCDs Allergies/Procedures Done in Hospital Allergies No Known Allergies Allergy (Verified 12/18/23 22:18) Procedures: None Type of Care/Length of Stay Estimated LOS: Convalescent Care Less Than 30 days Type of Care Needed: Skilled Rehab Potential: Fair Prognosis: Fair Additional Orders/Day of Discharge Day of Discharge: 12/25/23 Discharge Plan Admission Admit Date/Time: 12/19/23 00:44 Primary Reason for Your Visit: debility. alcohol withdrawal. Attending Provider: Papo Rodriguez Primary Care Provider: Rajeev Villaseñor Consulting Providers: Taylor Kaur; Shabbir Erazo Discharge Orders/Prescriptions Prescriptions: No Action losartan 50 MG tablet 1 tab PO DAILY alprazolam 1 mg tablet 1 mg PO TID mirtazapine 30 mg tablet 30 mg PO QHS oxycodone-acetaminophen 5-325 mg tablet 1 tab PO Q6H PRN PRN (Reason: pain) pantoprazole 40 mg tablet,delayed release (DR/EC) 40 mg PO DAILY Referrals / Follow Up: Rajeev Villaseñor MD [Primary Care Provider] - (1) Alcohol withdrawal Qualifiers: Complication of substance-induced condition: with delirium Qualified Code(s): F10.931 - Alcohol use, unspecified with withdrawal delirium
--- NOTE | 2023-12-25 10:17 | PCM.TXEXTCAR ---
Diet Diet Order/Speech Therapy: 12/19/23 01:40 Diet: Cardiac - Heart Healthy Food consistency:: Regular Liquid Consistency:: Regular/Thin Routine Orders/Code Status Routine Lab Work: - (CMP weekly ) Code Status: Full Code Therapies Weight Bearing: Full weight bearing Extremity Affected:: Bilateral Lower Physical Therapy: Eval and Treat Occupational Therapy: Eval and Treat Problem/Diagnosis (1) Alcohol withdrawal: Status: Acute Code(s): F10.939 - Alcohol use, unspecified with withdrawal, unspecified Plan Acute metabolic encephalopathy 2/2 acute alcohol withdrawal treat the underlying withdrawal. deescalate medications: phenobarbital, gabapentin,trazodone. Acute alcohol withdrawal Last drink was 2 days prior to presentation. Phenobarbital taper in addition to adjuvant medications including gabapentin, Bentyl, hydroxyzine and clonidine as needed for alcohol withdrawal symptoms. Patient was also placed on thiamine and folic acid Addiction medicine to facilitate outpt treatment program. Hypokalemia, Hypomagnesemia, Hypophosphatemia potassium still low despite replacement. Recheck magnesium phosphorus levels. Hyponatremia Likely secondary to beer potomania. Appears to be stable at this time. pancytopenia suspect due to underlying liver disease Anemia Iron low at 32 but ferritin is very high at 3219. MCV consistent with macrocytosis. Folate low. On replacement. B12 pending. check transferrin Thrombocytopenia unclear etiology monitor hypotension transient, resolved dc losartan check AM cortisol Blood pressure dropped from 131 lying to 114 standing. Heart rate remained relatively the same actually went down upon standing. Hyperbilirubinemia US shows hepatic steatosis w hepatomegaly suspect due to underlying liver disease. At least due to alcohol, but with elevated ferritin, cannot rule out hemochromatosis. follow up with GI as outpt. Debility Waiting on placement acceptance. Discussed with the patient that I am concerned that he may have a neurologic condition, more specifically multisystem atrophy, did recommend that he follow-up with a neurologist for further evaluation. Rash Unclear etiology but I suspect its either a drug rash or a viral exanthem, I favor the former. I discontinued much of his medications leaving only multivitamin, nicotine patch and topical nystatin and calamine. Will check a viral panel though I feel it is less likely due to a viral exanthem. Chronic conditions Hypertension- Blood pressure controlled. Continue with losartan., home medications continued with dose adjustment as needed Lung nodule? Measuring 11 mm right base plan outpt followup with pulmonary. Tobacco dependence- Counseled on cessation, offered nicotine patch for tobacco cravings DVT prophylaxis? Bilateral SCDs Allergies/Procedures Done in Hospital Allergies No Known Allergies Allergy (Verified 12/18/23 22:18) Procedures: None Type of Care/Length of Stay Estimated LOS: Convalescent Care Less Than 30 days Type of Care Needed: Skilled Rehab Potential: Fair Prognosis: Fair Additional Orders/Day of Discharge Day of Discharge: 12/25/23 Discharge Plan Admission Admit Date/Time: 12/19/23 00:44 Primary Reason for Your Visit: debility. alcohol withdrawal. Attending Provider: Papo Rodriguez Primary Care Provider: Rajeev Villaseñor Consulting Providers: Taylor Kaur; Shabbir Erazo Discharge Orders/Prescriptions Prescriptions: New Therapeutic-M 9 mg iron-400 mcg Tablet 1 tab PO BREAKFAST Qty: 0 0RF nicotine 14 mg/24 hr Patch 24 Hour 14 mg transdermal DAILY Qty: 0 0RF Continued pantoprazole 40 mg tablet,delayed release (DR/EC) 40 mg PO DAILY Discontinued losartan 50 MG tablet 1 tab PO DAILY alprazolam 1 mg tablet 1 mg PO TID mirtazapine 30 mg tablet 30 mg PO QHS oxycodone-acetaminophen 5-325 mg tablet 1 tab PO Q6H PRN PRN (Reason: pain) Referrals / Follow Up: Rajeev Villaseñor MD [Primary Care Provider] - Within 2 Weeks Disposition Disposition (needs filled in before D/C Order can be placed): [facility] (1) Alcohol withdrawal Qualifiers: Complication of substance-induced condition: with delirium Qualified Code(s): F10.931 - Alcohol use, unspecified with withdrawal delirium
--- NOTE | 2023-12-25 10:21 | DS.PCM_ITS ---
Providers Date of Admission: 12/19/23 Primary Care Physician: Dr. Rajeev Villaseñor MD Reason For Visit: ETOH WITHDRAWL Diagnosis Discharge Diagnosis (1) Alcohol withdrawal: Status: Acute Code(s): F10.939 - Alcohol use, unspecified with withdrawal, unspecified Qualifiers: Complication of substance-induced condition: with delirium Qualified Code(s): F10.931 - Alcohol use, unspecified with withdrawal delirium Plan Acute metabolic encephalopathy * Resolved but patient has flat affect overall. * 2/2 acute alcohol withdrawal * treat the underlying withdrawal. * deescalate medications: Discontinue phenobarbital, gabapentin,trazodone. Acute alcohol withdrawal * Last drink was 2 days prior to presentation. * Phenobarbital taper in addition to adjuvant medications including gabapentin, Bentyl, hydroxyzine and clonidine as needed for alcohol withdrawal symptoms. Patient was also placed on thiamine and folic acid * Addiction medicine to facilitate outpt treatment program. Hypokalemia, Hypomagnesemia, Hypophosphatemia * potassium still low despite replacement. * Recheck magnesium phosphorus levels. Hyponatremia * Likely secondary to beer potomania. Appears to be stable at this time. pancytopenia * suspect due to underlying liver disease * Anemia * Iron low at 32 but ferritin is very high at 3219. MCV consistent with macrocytosis. Folate low. On replacement. B12 pending. * check transferrin * Thrombocytopenia * unclear etiology * monitor hypotension * transient, resolved * dc losartan * AM cortisol within normal limits * Blood pressure dropped from 131 lying to 114 standing. Heart rate remained relatively the same actually went down upon standing. Hyperbilirubinemia * US shows hepatic steatosis w hepatomegaly * suspect due to underlying liver disease. At least due to alcohol, but with elevated ferritin, cannot rule out hemochromatosis. * follow up with GI as outpt. Debility * Waiting on placement acceptance. * Discussed with the patient that I am concerned that he may have a neurologic condition, more specifically multisystem atrophy, did recommend that he follow-up with a neurologist for further evaluation. Rash * Resolved * unclear etiology but I suspect its either a drug rash or a viral exanthem, I favor the former. * I discontinued much of his medications leaving only multivitamin, nicotine patch and topical nystatin and calamine. * Will check a viral panel though I feel it is less likely due to a viral exanthem. Chronic conditions * Hypertension- Blood pressure controlled. Continue with losartan., home medications continued with dose adjustment as needed * Lung nodule? Measuring 11 mm right base plan outpt followup with pulmonary. * Tobacco dependence- Counseled on cessation, offered nicotine patch for tobacco cravings DVT prophylaxis? Bilateral SCDs Medications at Discharge Home Medications pantoprazole 40 mg tablet,delayed release 40 mg PO DAILY GERD 12/19/23 multivitamin-iron 9 mg-folic acid 400 mcg-calcium and minerals tablet (Therapeutic-M) 1 tab PO BREAKFAST #0 tabs 12/25/23 nicotine 14 mg/24 hr daily transdermal patch 14 mg transdermal DAILY #0 ea 12/25/23 Hospital Course Operations None Procedures None Summary of Care Provided Minutes Spent on Discharge: 35 Physical Exam Const alert and no apparent distress Constitutional Narrative: Up in chair eating breakfast. Patient is attempting to open his milk carton with a butter knife. HEENT normocephalic and head/scalp atraumatic Weight / BMI Weight Weight: 80.8 kg Body Mass Index (BMI) 23.5 ABG / Lab / Microbiology Data 12/25/23 06:30 12/25/23 06:30 Laboratory: Laboratory Results - last 24 hr 12/25/23 06:30: WBC 3.1 L, RBC 2.63 L, Hgb 9.0 L, Hct 26.9 L, MCV 102.3 H, MCH 34.2 H, MCHC 33.5, RDW Std Deviation 59.7 H, RDW Coeff of Saloni 15.9 H, Plt Count 173, MPV 11.2, Immature Gran % (Auto) 1.300 H, Neut % (Auto) 57.5, Lymph % (Auto) 25.0, [place] % (Auto) 14.0 H, Eos % (Auto) 1.6, Baso % (Auto) 0.6, Absolute Neuts (auto) 1.8 L, Absolute Lymphs (auto) 0.77 L, Nucleated RBC % 0, Sodium 134 L, Potassium 3.6, Chloride 104, Carbon Dioxide 25.0, Anion Gap 5, BUN 9, Creatinine 0.50 L, Estim Creat Clear Calc 170.90, Est GFR (MDRD) Af Amer 213, Est GFR (MDRD) Non-Af 176, BUN/Creatinine Ratio 17.8, Glucose 84, Calcium 8.4 L, Total Bilirubin 1.80 H, AST 217 H, ALT 124 H, Alkaline Phosphatase 222 H, Total Protein 6.6, Albumin 2.4 L, Globulin 4.2, Albumin/Globulin Ratio 0.6 L Microbiology: Microbiology 12/24/23 10:40 Mucosa - Nose SARS-CoV-2, Influenza & RSV (PCR) - Final 12/19/23 00:13 Blood Culture (Wb) - Left Hand Blood Culture - Final No growth in 5 days. 12/19/23 00:36 Blood Culture (Wb) - Left Hand Blood Culture - Final No growth in 5 days. 12/18/23 23:02 Urine, Clean Catch Urine Culture - Final Mixed Gram Positive Organisms 12/19/23 01:59 Mucosa - Nasopharyngeal Respiratory Panel (PCR) - Final 12/19/23 00:00 Urine, Clean Catch Legionella Antigen - Final 12/19/23 00:00 Urine, Clean Catch Streptococcus pneumoniae Antigen (M - Final 12/18/23 23:40 Mucosa - Nose SARS-CoV-2, Influenza & RSV (PCR) - Final D/C Instructions Discharge Diet: No restrictions Meaningful Use Info Meaningful Use Meaningful Use Diagnoses (Choose all that apply): None applicable Ischemic Stroke Statin Dosing Therapy Reference: STATIN DOSE THERAPY REFERENCE: * Patients > 75 years receive moderate or high dose statin therapy. * Patients 75 years or YOUNGER should receive HIGH intensity statin dose unless contraindicated. You will be required to document reason for non-treatment if statin daily dose does not meet guidelines. HIGH DOSE STATIN THERAPY DAILY Atorvastatin > than or = to 40 mg Rosuvastatin > than or = to 20 mg Amlodipine + Atorvastatin > than or = to 2.5/40 mg Ezetimibe + Simvastatin 10/80 mg Simvastatin 80mg Discharge Plan Admission Admit Date/Time: 12/19/23 00:44 Primary Reason for Your Visit: debility. alcohol withdrawal. Attending Provider: Papo Rodriguez Primary Care Provider: Rajeev Villaseñor Consulting Providers: Taylor Kaur; Shabbir Erazo Discharge Orders/Prescriptions Prescriptions: New Therapeutic-M 9 mg iron-400 mcg Tablet 1 tab PO BREAKFAST Qty: 0 0RF nicotine 14 mg/24 hr Patch 24 Hour 14 mg transdermal DAILY Qty: 0 0RF Continued pantoprazole 40 mg tablet,delayed release (DR/EC) 40 mg PO DAILY Discontinued losartan 50 MG tablet 1 tab PO DAILY alprazolam 1 mg tablet 1 mg PO TID mirtazapine 30 mg tablet 30 mg PO QHS oxycodone-acetaminophen 5-325 mg tablet 1 tab PO Q6H PRN PRN (Reason: pain) Referrals / Follow Up: Rajeev Villaseñor MD [Primary Care Provider] - Within 2 Weeks Disposition Disposition (needs filled in before D/C Order can be placed): [facility] Facility Charges/Coding Visit Charges Inpatient E&M: 04735 Disch Hosp >30min
--- NOTE | 2023-12-25 11:06 | CASEMGMT ---
Social Work Pt spoke w/physician this morning, state he is going home. SW went in w/physician, pt is now agreeable to SNF to [facility]. SW called [facility], they have precert and pt can come today. cassidy Merlos/belinda strategic planning consultant set up discharge for 12pm to [facility], sent all discharge paperwork via [facility]. Erendira Allen, ARGENIS, completed hospital exemption. SW spoke w/pt to see if he would like to do POA. Pt states he does not want to do this. SW let him know he will be going to [facility] today. Pt states he is going home, he is not going to [facility] [place]. After multiple conversations w/ARGENIS, RN, resource officer and his sister on the phone [facility] Transport pushed back to 2pm and switched to ambulance. SW did attempt to let his sister know however her voicemail is full. SW called Veronica York, pt's soon to be exwife, let her know pt is leaving at 2pm. She will let Monika know, as she is in a meeting. No further needs, pt to [facility] today, skilled at 2pm. Pt's brother Shabbir called, SW put him on the phone w/Shabbir. Indiana Reyes, CHASIDY-S
[2023-12-25 12:50] VITALS: BP 106/75; PULSE 80; RESP 18; TEMP 36.8; O2SAT 95
--- NOTE | 2023-12-25 13:07 | CASEMGMT ---
Discharge Planning Discharge orders, signed med list, and transport time sent to via [facility]. Physcians will transport patient by cot at 2p. Nursing and SW updated. Chelita Friedman DC Planning Asst.
== END 2023-12-25 13:56 | disposition skilled nursing facility (03) | DRG 896 ==
LOC: ED 12-19 01:01 → MS3 12-19 01:24
PROVIDERS: Internal Medicine; Admitting Provider Family Medicine; Emergency Provider Emergency Medicine; PCP Family Medicine
DX: F10.931 Alcohol use, unspecified with withdrawal delirium (principal); G93.41 Metabolic encephalopathy; G92.9 Unspecified toxic encephalopathy; D61.818 Other pancytopenia; E87.1 Hypo-osmolality and hyponatremia; N39.0 Urinary tract infection, site not specified; D69.6 Thrombocytopenia, unspecified; D63.8 Anemia in other chronic diseases classified elsewhere; E83.39 Other disorders of phosphorus metabolism; E88.89 Other specified metabolic disorders; I95.9 Hypotension, unspecified; K70.10 Alcoholic hepatitis without ascites; I10 Essential (primary) hypertension; E86.1 Hypovolemia; E87.8 Other disorders of electrolyte and fluid balance, not elsewhere classified; M50.30 Other cervical disc degeneration, unspecified cervical region; E87.6 Hypokalemia; E86.0 Dehydration; F17.210 Nicotine dependence, cigarettes, uncomplicated; L27.0 Generalized skin eruption due to drugs and medicaments taken internally; Y90.0 Blood alcohol level of less than 20 mg/100 ml; T51.91XA Toxic effect of unspecified alcohol, accidental (unintentional), initial encounter; G89.29 Other chronic pain; R91.1 Solitary pulmonary nodule
CPT/HCPCS: 36415; 70450; 71045; 76705; 80048; 80053; 80076; 80307; 80320; 81001; 82009; 82533; 82607; 82728; 82746; 83036; 83540; 83550; 83605; 83690; 83735; 84100; 84145; 84466; 84484; 85025; 87040; 87086; 87088; 87449; 87631; 87633; 93005; 94668; 97163; 97166; 97530; 97535; 99284; J7030; J7040; J7050; A4216; G0480; J2405

== ENCOUNTER 2025-02-03 11:53 | Emergency (ER) | payer SELFPAY ==
[2025-02-03 11:54] VITALS: BP 124/89; PULSE 91; RESP 16; TEMP 36.6; O2SAT 100
--- NOTE | 2025-02-03 13:07 | EKG12_ITS ---
Test Reason : Blood Pressure : */* mmHG Vent. Rate : 89 BPM Atrial Rate : 89 BPM P-R Int : 162 ms QRS Dur : 96 ms QT Int : 396 ms P-R-T Axes : 37 24 46 degrees QTcB Int : 481 ms Normal sinus rhythm Nonspecific ST abnormality Prolonged QT Abnormal ECG Confirmed by Leander Gusman ([id number]), sound editor BLAYNE JENKINS ([id number]) on 02/07/2025 11:39:28 AM Referred By: Confirmed By: Leander Gusman
--- NOTE | 2025-02-03 13:07 | CT_ITS ---
PROCEDURE: BRAIN/HEAD WITHOUT CONTRAST 02/03/2025 REASON FOR EXAM: HEAD TRAUMA TECHNIQUE: BRAIN/HEAD WITHOUT CONTRAST Coronal and Sagittal reconstruction series were provided. One or more dose reduction techniques were used (e.g., Automated exposure control, adjustment of the mA and/or kV according to patient size, use of iterative reconstruction technique. RADIATION DOSE SUMMARY: CTDlvol: 44.99 mGy DLP: 863.6 mGycm COMPARISON: Prior study dated December 18, 2023. FINDINGS: Brain: Low density in the periventricular white matter suggests mild chronic small vessel ischemic changes. CSF Spaces: Mild generalized cerebral atrophy Sinuses/Mastoids: Clear at visualized levels Bones: CT/Brain/Head without Contrast IMPRESSION: CHRONIC CHANGES. NO ACUTE FINDINGS. Reading Location: [place] [id number]
[2025-02-03] MEDS: Morphine 4 MG/ML Syringe IV (13:20)
[2025-02-03] MEDS: Ondansetron 4 MG/2 ML Vial IV (13:20)
[2025-02-03 13:38] LABS: Absolute Lymphocyte Count 1.42 X10^3/uL (0.83-4.51); Absolute Neutrophil Count 1.6 X10^3/uL (2.0-7.7); Basophil# 0.03 X10^3/uL; Basophil% 0.9 % (0-1); Eosinophil# 0.02 X10^3/uL; Eosinophils% 0.6 % (0-5); Hematocrit 32.9 % (40-54); Lymphocyte # 1.42 X10^3/ul (0.83-4.51); Lymphocyte % 40.6 % (19-41); Mean Corp Hgb Conc 33.4 g/dL (32-36); Mean Corpuscular Hgb 34.6 pg (27.0-32.0); Mean Corpuscular Volume 103.5 fL (80-94); Mean Platelet Vol. 11.6 fl (6.2-12.0); Monocyte# 0.37 X10^3/uL; Monocyte% 10.6 % (0-10); NRBC Flagged by Analyzer 0 % (0-5); Neutrophil # 1.63 X10^3/uL (2.7-7.7); Neutrophil % 46.4 % (47-70); POSITIVE COUNT YES; RBC Distribution Width CV 15.4 % (11.6-14.6); RBC Distribution Width SD 59.4 fl (35.1-43.9); Red Blood Count 3.18 M/mm3 (4.6-6.2); White Blood Count 3.5 K/mm3 (4.4-11.0)
[2025-02-03 13:44] LABS: ALB/GLOB Ratio 0.7 RATIO (0.9-2.4); AST(SGOT) 154 U/L (<=37); Alanine Aminotransfer ALT/SGPT 50 U/L (<=46); Albumin, Serum 3.7 g/dL (3.4-4.8); Alkaline Phosphatase 110 U/L (40-129); Anion Gap 21 (5-15); BUN 10 mg/dL (4-19); BUN/Creat Ratio 13.8 RATIO (10-20); Calcium,Total 8.6 mg/dL (7.6-11.0); Carbon Dioxide 16.5 mmol/L (21.0-32.0); Chloride 104 mmol/L (98-108); Creatinine, Serum 0.71 mg/dL (0.70-1.20); EST Glomerular Filtration Rate 102 (>60); Globulin 5.2 g/dL (2.2-4.2); Glucose 84 mg/dL (70-99); Potassium 3.7 mmol/L (3.3-5.1); Protein, Total 8.9 g/dL (5.9-8.4); Sodium Level 142 mmol/L (133-145)
[2025-02-03 13:48] LABS: Differential Indicated SCAN CRITERIA MET; Platelet Count 31 K/mm3 (150-450)
--- NOTE | 2025-02-03 13:50 | CT_ITS ---
PROCEDURE: CHEST WITHOUT CONTRAST 02/03/2025 REASON FOR EXAM: LEFT SIDED CHEST TRAUMA, FALL TECHNIQUE: Chest CT without contrast. Coronal and Sagittal reconstruction series were provided. One or more dose reduction techniques were used (e.g., Automated exposure control, adjustment of the mA and/or kV according to patient size, use of iterative reconstruction technique RADIATION DOSE SUMMARY: CTDlvol: 20.14 mGy DLP: 167.14 mGycm COMPARISON: None available for comparison. FINDINGS: Hardware: None Lymph nodes: No suspicious lymph nodes are seen. Calcified left hilar lymph node and subcarinal lymph node. Heart and Vasculature: Heart is nonenlarged. Coronary Artery Calcifications: No significant coronary artery calcification is seen. Lungs and Airways: Mild dependent atelectasis. Pleura: No pleural effusion Upper Abdomen: Fatty infiltration of the liver. Small amount of perisplenic fluid. Bones: Degenerative changes of the thoracic spine. CT/Chest without Contrast IMPRESSION: Coronary artery calcification (CAC) is is absent Heterogeneous appearance of the liver most likely secondary to diffuse fatty in filtration with focal areas of fatty sparing. Minimal amount of perisplenic fluid. Reading Location: [place] [id number]
[2025-02-03 14:12] LABS: Platelet Estimate MKD DEC (ADEQ)
[2025-02-03] MEDS: Lidocaine 5% Patch 1 PATCH TOPICAL (15:24)
--- NOTE | 2025-02-03 15:42 | ED.VIS.FALL ---
HPI <Dr. Abby Marvin DO - Last Filed: 02/05/25 07:39> HPI - Fall History of Present Illness Chief Complaint: Fall Informant: patient Narrative Narrative: Patient is a 64-year-old male with history of alcohol abuse, anxiety and depression presenting for evaluation after fall. Patient states he tripped on a log last night. He fell forward. He is a log hit his chest. He hit his head. He does not think he lost consciousness. He states he is otherwise been in his normal state of health. He is not on any blood thinners. Does have regular alcohol use. States that he lives alone and is going through divorce with his . Is quite tearful about this. Denies any blood thinner use. [facility] <Dr. Abby Marvin DO - Last Filed: 02/05/25 07:39> [facility] Medical History Chronic neck pain Thrombocytopenia Tobacco use Anxiety and depression ETOH abuse Alcohol dependence Hypertension Alcoholism Home Medications ?Medication ?Instructions ?Recorded ?Last Taken ?Type pantoprazole 40 mg tablet,delayed 40 mg PO DAILY GERD 12/19/23 Unknown History release multivitamin-iron 9 mg-folic acid 1 tab PO BREAKFAST #0 tabs 12/25/23 Unknown Rx 400 mcg-calcium and minerals tablet (Therapeutic-M) nicotine 14 mg/24 hr daily 14 mg transdermal DAILY #0 ea 12/25/23 Unknown Rx transdermal patch Allergy/AdvReac Type Severity Reaction Status Date / Time No Known Allergies Allergy Verified 02/03/25 11:54 Surgical History No history of previous surgery Social History household members: family Smoking Status: Current every day smoker tobacco type: cigarettes alcohol intake: current alcohol intake frequency: 3 or more drinks per day Alcohol type: hard liquor details: Usually drinks daily, vodka, unclear exact amount, last drink 2 days prior. substance use type: does not use ROS <Dr. Abby Marvin DO - Last Filed: 02/05/25 07:39> ROS ED Constitutional Constitutional ED: Denies chills or fever(s) Eyes Eyes: Denies change in vision Respiratory/Chest Respiratory/Chest: Reports other Details: left sided chest pain, hurts to breath ; Denies cough or dyspnea Gastrointestinal Gastrointestinal: Reports nausea; Denies abdominal pain or vomiting Musculoskeletal Musculoskeletal: Denies back pain Integumentary Reports Abrasions Neurologic Neurologic: Reports headache(s); Denies weakness Psychiatric Psychiatric: Reports anxiety Hematologic/Lymphatic Hematologic/Lymphatic: Denies easy bleeding or easy bruising EXAM <Dr. Abby Marvin, DO - Last Filed: 02/05/25 07:39> Physical Exam Const Vital Signs: 02/03/25 11:54 02/03/25 11:57 02/03/25 16:05 Temperature 97.9 F Temperature Source Oral Pulse Rate 91 82 Respiratory Rate 16 16 Respiratory Effort Normal Non-Labored Respiratory Depth Normal Respiratory Pattern Normal Blood Pressure 124/89 H 141/97 H Blood Pressure Mean 100 111 Pulse Ox 100 97 Oxygen Delivery Method Room Air Room Air Room Air Positive well nourished and well developed General Appearance ED: well developed and NAD HEENT Reports normocephalic and TM's normal bilaterally HEENT Narrative: abrasions and dried blood to the forehead. No laceration appreciated. No signs of basilar skull fracture. Eyes PERRL and EOMs intact bilaterally Neck full ROM General: Negative for tenderness Chest Wall Chest Narrative: Bruising noted to left chest wall. No chest wall crepitus. Tense palpation over the left lower anterior chest wall. No flail chest. Resp normal respiratory effort and clear to auscultation bilaterally Effort and Inspection: pain with movement Cardio regular rate, regular rhythm and no murmurs GI non-tender and non-distended Inspection: Negative for abdominal distention Palpation: soft; Negative for guarding Back/Spine no CVA tenderness Cervical Spine: Negative for cervical spine tenderness Thoracic Spine / Upper Back: Negative for thoracic spinal tenderness Lumbar Spine / Lower Back: Negative for lumbar spinal tenderness Neuro oriented x3, moves all extremities, no focal motor deficits and no sensory deficits noted Sensorium / Orientation: alert Psych Psych Narrative: Tearful, clinically mildly intoxicated Skin Skin Narrative: Bruising to the left anterior lower chest wall. Superficial abrasions to the right forehead/eyebrow area with no active bleeding. <Dr. Papo Neves, DO - Last Filed: 02/03/25 17:23> Physical Exam Const Vital Signs: 02/03/25 11:54 02/03/25 11:57 02/03/25 16:05 Temperature 97.9 F Temperature Source Oral Pulse Rate 91 82 Respiratory Rate 16 16 Respiratory Effort Normal Non-Labored Respiratory Depth Normal Respiratory Pattern Normal Blood Pressure 124/89 H 141/97 H Blood Pressure Mean 100 111 Pulse Ox 100 97 Oxygen Delivery Method Room Air Room Air Room Air [facility] <Dr. Abby Marvin, DO - Last Filed: 02/05/25 07:39> [facility] Narrative Medical decision making narrative: Patient evaluated for left-sided chest pain after mechanical fall last night. Vital signs normal. No respiratory distress. Initially given morphine for his pain. To check basic labs and alcohol as patient smelled of alcohol on my exam. Will obtain CT of the brain, and chest to look for traumatic injuries. Differential includes contusions, rib fracture, pneumothorax, hemothorax, intracranial trauma, alcohol intoxication, electrolyte derangement and hemorrhage. Lab work shows a pancytopenia with a platelet count of 31. BMP shows a mildly low bicarb with the chronic elevation of his bilirubin, AST, ALT was consistent chronic alcohol use. These labs are consistent with his baseline however thrombocytopenia is slightly worse than normal. He is on a spontaneous bleeding and does not need a platelet transfer at this time. Alcohol level 335. CT of the brain and chest did not show any acute traumatic process. CT of the chest did show some minimal amount of perisplenic fluid. Given its worst trauma will add on the CT of the abdomen and pelvis to rule out splenic laceration. On my review of the CT there is a small amount of fluid around the liver which I suspect is more is consistent with some ascites. Not seeing obvious liver or splenic laceration. I do appreciate likely to anterior inferior rib fractures that were not called on the initial CT of the chest. This would be consistent with his presentation. Social work evaluations obtained given his alcohol use and my concern for poor outpatient resources. Will be set on oncoming physician for repeat evaluation when clinically sober and CT result. I did speak with the patient and offer him admission to a rehab program for alcohol detox. At this time he states he would prefer not to be admitted for detox and also does not want to come in for pain control/PT OT. At this time he does not have findings consistent with acute alcohol withdrawal. Lab Data Attestation: I reviewed the patient's lab results. Labs: Laboratory Results - last 24 hr 02/03/25 13:15 WBC 3.5 L RBC 3.18 L Hgb 11.0 L Hct 32.9 L MCV 103.5 H MCH 34.6 H MCHC 33.4 RDW Std Deviation 59.4 H RDW Coeff of Saloni 15.4 H Plt Count 31 L* MPV 11.6 Immature Gran % (Auto) 0.900 Neut % (Auto) 46.4 L Lymph % (Auto) 40.6 [place] % (Auto) 10.6 H Eos % (Auto) 0.6 Baso % (Auto) 0.9 Absolute Neuts (auto) 1.6 L Absolute Lymphs (auto) 1.42 Nucleated RBC % 0 Platelet Estimate MKD DEC Sodium 142 Potassium 3.7 Chloride 104 Carbon Dioxide 16.5 L Anion Gap 21 H BUN 10 Creatinine 0.71 Est GFR (MDRD) Non-Af 102 BUN/Creatinine Ratio 13.8 Glucose 84 Calcium 8.6 Total Bilirubin 1.70 H AST 154 H ALT 50 H Alkaline Phosphatase 110 Total Protein 8.9 H Albumin 3.7 Globulin 5.2 H Albumin/Globulin Ratio 0.7 L Ethyl Alcohol 335.0 H* Radiography Diagnostic Testing: Clinical Impression(s) from Imaging Studies Brain CT 02/03/25 13:07 IMPRESSION: CHRONIC CHANGES. NO ACUTE FINDINGS. Reading Location: [facility] 02/03/25 13:50 IMPRESSION: Coronary artery calcification (CAC) is is absent Heterogeneous appearance of the liver most likely secondary to diffuse fatty infiltration with focal areas of fatty sparing. Minimal amount of perisplenic fluid. Reading Location: [facility] Abdomen/Pelvis CT 02/03/25 16:12 IMPRESSION: 1. Fatty liver with isodense area, likely fatty sparing regions. Ascites with Hounsfield units less than 15. This is unlikely blood. However, this is not a dedicated CTA exam. 2. The prostate gland is enlarged. Correlation with PSA values may be helpful if not previously performed. 3. Small esophageal hiatal hernia. 4. Fecal retention in the colon consistent with constipation. 5. Umbilical hernia containing fat. 6. Inguinal hernias, bilaterally. Reading Location: [facility] Rhythm Strip Rhythm Strip: Sinus Rhythm Rate: 89 Ectopy: None EKG Initial EKG: Attestation: I personally reviewed and interpreted this EKG as follows: Interpretation: Sinus Rhythm and Sinus Tachycardia Comments: Normal sinus rhythm at a rate of 89 bpm Normal axis Normal intervals Normal ST segments Management Discussion w/another healthcare provider: airport utility worker/Case management <Dr. Papo Neves, DO - Last Filed: 02/03/25 17:23> [facility] Lab Data Labs: Laboratory Results - last 24 hr 02/03/25 13:15 WBC 3.5 L RBC 3.18 L Hgb 11.0 L Hct 32.9 L MCV 103.5 H MCH 34.6 H MCHC 33.4 RDW Std Deviation 59.4 H RDW Coeff of Saloni 15.4 H Plt Count 31 L* MPV 11.6 Immature Gran % (Auto) 0.900 Neut % (Auto) 46.4 L Lymph % (Auto) 40.6 [place] % (Auto) 10.6 H Eos % (Auto) 0.6 Baso % (Auto) 0.9 Absolute Neuts (auto) 1.6 L Absolute Lymphs (auto) 1.42 Nucleated RBC % 0 Platelet Estimate MKD DEC Sodium 142 Potassium 3.7 Chloride 104 Carbon Dioxide 16.5 L Anion Gap 21 H BUN 10 Creatinine 0.71 Est GFR (MDRD) Non-Af 102 BUN/Creatinine Ratio 13.8 Glucose 84 Calcium 8.6 Total Bilirubin 1.70 H AST 154 H ALT 50 H Alkaline Phosphatase 110 Total Protein 8.9 H Albumin 3.7 Globulin 5.2 H Albumin/Globulin Ratio 0.7 L Ethyl Alcohol 335.0 H* Radiography Diagnostic Testing: Clinical Impression(s) from Imaging Studies Brain CT 02/03/25 13:07 IMPRESSION: CHRONIC CHANGES. NO ACUTE FINDINGS. Reading Location: [facility] 02/03/25 13:50 IMPRESSION: Coronary artery calcification (CAC) is is absent Heterogeneous appearance of the liver most likely secondary to diffuse fatty infiltration with focal areas of fatty sparing. Minimal amount of perisplenic fluid. Reading Location: [facility] Abdomen/Pelvis CT 02/03/25 16:12 IMPRESSION: 1. Fatty liver with isodense area, likely fatty sparing regions. Ascites with Hounsfield units less than 15. This is unlikely blood. However, this is not a dedicated CTA exam. 2. The prostate gland is enlarged. Correlation with PSA values may be helpful if not previously performed. 3. Small esophageal hiatal hernia. 4. Fecal retention in the colon consistent with constipation. 5. Umbilical hernia containing fat. 6. Inguinal hernias, bilaterally. Reading Location: [facility] Treatment and Re-Evaluation Narrative: Care of the patient was turned over to me pending CT scan. CT of the abdomen and pelvis was obtained. There is no intra-abdominal bleeding or splenic laceration. There is a fatty liver and ascites around the liver. It is unlikely that this is blood. There is fecal retention like colon. There is a small esophageal hiatal hernia. There is an umbilical hernia containing fat. There is no acute abnormality noted. This was interpreted by the radiologist as also independently reviewed by myself. Patient was advised of his findings. Patient was able to stand and ambulate in the emergency room without difficulty. Patient wants to go home. Social work was in to evaluate the patient. Patient does not want to be admitted for alcohol detox. Patient was instructed to follow-up with a primary care physician in 5 to 7 days. Patient was instructed to return if worse in any way. Patient understood and was agreeable with the plan. All questions were answered. Discharge Plan Triage Chief Complaint: Fall ED Provider: Abby Marvin Dx/Rx/DC Orders Clinical Impression: Left rib fracture, Fall, Closed injury of head, Acquired pancytopenia, Alcohol abuse with intoxication Instructions: ED Alcohol Intoxication, ED Rib Fracture, ED Head Injury (Adult) Prescriptions: No Action pantoprazole 40 mg tablet,delayed release (DR/EC) 40 mg PO DAILY Therapeutic-M 9 mg iron-400 mcg Tablet 1 tab PO BREAKFAST Qty: 0 0RF nicotine 14 mg/24 hr Patch 24 Hour 14 mg transdermal DAILY Qty: 0 0RF Primary Care Provider: Rajeev Villaseñor Referrals: Rajeev Villaseñor MD [Primary Care Provider] - 5-7 Days Print Language: Upper Sorbian Disposition Disposition: Home, Self Care Discharge Date/Time: 02/03/25 18:18
[2025-02-03] MEDS: 0.9% Normal Saline (1000mL) 1,000 ML 999 ML IV (16:04)
[2025-02-03 16:05] VITALS: BP 141/97; PULSE 82; RESP 16; O2SAT 97
--- NOTE | 2025-02-03 16:12 | CT_ITS ---
EXAM: CT Abdomen and Pelvis With Intravenous Contrast CLINICAL INDICATION: RIGHT SIDED TRAUMA, FREE FLUID ON CT CHEST TECHNIQUE: Axial computed tomography images of the abdomen and pelvis with intravenous contrast. This CT exam was performed using one or more of the following dose reduction techniques: automated exposure control, adjustment of the mA and/or kV according to patient size, and/or use of iterative reconstruction technique. COMPARISON: No relevant prior studies available. FINDINGS: LUNG BASES: Unremarkable. No mass. No consolidation. MEDIASTINUM: Small esophageal hiatal hernia. ABDOMEN: LIVER: Unremarkable. No mass. GALLBLADDER AND BILE DUCTS: Unremarkable. No calcified stones. No ductal dilation. PANCREAS: Unremarkable. No mass. No ductal dilation. SPLEEN: Unremarkable. No splenomegaly. ADRENALS: Unremarkable. No mass. KIDNEYS AND URETERS: Unremarkable. No solid mass. No hydronephrosis. STOMACH AND BOWEL: Fecal retention in the colon consistent with constipation. No obstruction. No mucosal thickening. PELVIS: APPENDIX: No findings to suggest acute appendicitis. BLADDER: Unremarkable. No mass. REPRODUCTIVE: The prostate gland is enlarged measuring 5.3 cm in maximum dimension. ABDOMEN and PELVIS: INTRAPERITONEAL SPACE: Fatty liver with isodense area, likely fatty sparing regions. Ascites with Hounsfield units less than 15. This is unlikely blood. However, this is not a dedicated CTA exam. No free air. BONES/JOINTS: Multilevel endplate degenerative changes and disc disease of the lumbar spine. No acute fracture. No dislocation. SOFT TISSUES: Umbilical hernia containing fat. Inguinal hernias, bilaterally. VASCULATURE: Scattered calcified atherosclerotic disease of aorta. No abdominal aortic aneurysm. LYMPH NODES: Unremarkable. No enlarged lymph nodes. CT/Abdomen/Pelvis W IV Cont ONLY IMPRESSION: 1. Fatty liver with isodense area, likely fatty sparing regions. Ascites with Hounsfield units less than 15. This is unlikely blood. However, this is not a dedicated CTA exam. 2. The prostate gland is enlarged. Correlation with PSA values may be helpful if not previously performed. 3. Small esophageal hiatal hernia. 4. Fecal retention in the colon consistent with constipation. 5. Umbilical hernia containing fat. 6. Inguinal hernias, bilaterally. Reading Location: [facility]
--- NOTE | 2025-02-03 16:36 | ED.RN ---
PER HONG, SISTER, CALL YOANNA, SON, IF PATIENT NEEDS A RIDE HOME AT [phone]
--- NOTE | 2025-02-03 17:26 | CM.ED ---
Social work Reason for referral: resources Referral source: Dr. Marvin SW was asked to talk to patient to provide resources due to patient's lack of support. Patient reportedly fell last night while intoxicated; patient's blood alcohol level was [address] Marvin, patient was not interested in RAMP and patient is patient's , so patient may be in need of resources to help better manage this life change. Dr. Marvin stated being willing to try for admission for RAMP if SW could have patient agree to it. SW entered patient's room, introducing self and role at [facility]. Patient welcomed SW visit and immediately stated being grateful for SW visit due to patient feeling depressed. SW actively listened to patient discuss patient's after 40 years, patient falling last evening, etc. Patient stated drinking a couple beers last night which contributed to patient's fall. SW initiated conversation about RAMP and patient stated not remembering having this discussion with anyone earlier in the day. SW educated patient about the program and patient stated maybe being interested. With further conversation, patient became less interested and stated not being able to stay for RAMP. SW provided the following resources instead: how to apply for Medicaid, local counseling resources, [employer], depression and addiction coping skills, and list of local AA meetings. Patient stated appreciation for resources and SW time. Patient declined further needs. Ariana Dalton, TELEVISION PICTURE TUBE REBUILDER, INTERIOR DESIGN PROGRAM CHAIR
[2025-02-03 18:18] VITALS: BP 138/74; PULSE 82; RESP 16; TEMP 36.6; O2SAT 99
== END 2025-02-03 18:18 | disposition home or self-care (01) ==
PROVIDERS: Emergency Provider Emergency Medicine; PCP Family Medicine; Visit Provider Emergency Medicine
DX: S09.90XA Unspecified injury of head, initial encounter (principal); D61.818 Other pancytopenia; F17.210 Nicotine dependence, cigarettes, uncomplicated; S22.32XA Fracture of one rib, left side, initial encounter for closed fracture; I10 Essential (primary) hypertension; F10.129 Alcohol abuse with intoxication, unspecified; W01.10XA Fall on same level from slipping, tripping and stumbling with subsequent striking against unspecified object, initial encounter; Y90.8 Blood alcohol level of 240 mg/100 ml or more
CPT/HCPCS: 70450; 71250; 74177; 80053; 82077; 85025; 93005; 96361; 96374; 96375; 99285; Q9967; A4216; J2405

== ENCOUNTER 2025-02-14 16:28 | Inpatient (IN) | payer MEDICARE, SELFPAY ==
[2025-02-14 16:29] VITALS: BP 125/79; PULSE 81; O2SAT 99
[2025-02-14 16:46] VITALS: BP 134/78; PULSE 85; RESP 18; TEMP 37.2; O2SAT 100
[2025-02-14 17:41] LABS: AST(SGOT) 259 U/L (<=37); Alanine Aminotransfer ALT/SGPT 82 U/L (<=46); Albumin, Serum 3.4 g/dL (3.4-4.8); Alkaline Phosphatase 129 U/L (40-129); Anion Gap 26 (5-15); BUN 9 mg/dL (4-19); BUN/Creat Ratio 12.6 RATIO (10-20); Calcium,Total 9.0 mg/dL (7.6-11.0); Carbon Dioxide 14.0 mmol/L (21.0-32.0); Chloride 97 mmol/L (98-108); Globulin 5.7 g/dL (2.2-4.2); Glucose 89 mg/dL (70-99); Lipase 64 U/L (13-75); Potassium 3.4 mmol/L (3.3-5.1)
[2025-02-14 17:49] LABS: Hematocrit 30.2 % (40-54); Hemoglobin 10.1 g/dL (13.0-16.5); Immature Granulocytes Count 0.040 X10^3/uL (0.0-0.0); Mean Corp Hgb Conc 33.4 g/dL (32-36); Mean Corpuscular Volume 101.0 fL (80-94); Mean Platelet Vol. 10.0 fl (6.2-12.0); NRBC Flagged by Analyzer 0 % (0-5); POSITIVE COUNT YES; RBC Distribution Width CV 16.2 % (11.6-14.6); RBC Distribution Width SD 60.1 fl (35.1-43.9); Red Blood Count 2.99 M/mm3 (4.6-6.2); White Blood Count 3.1 K/mm3 (4.4-11.0)
[2025-02-14 18:29] VITALS: BP 138/80; PULSE 84; O2SAT 100
[2025-02-14 19:08] LABS: Platelet Count 39 K/mm3 (150-450)
[2025-02-14 19:39] VITALS: BMI 24.5
--- NOTE | 2025-02-14 19:47 | EKG12_ITS ---
Test Reason : DYSRHYTHMIA Blood Pressure : */* mmHG Vent. Rate : 81 BPM Atrial Rate : 81 BPM P-R Int : 136 ms QRS Dur : 98 ms QT Int : 414 ms P-R-T Axes : 22 16 48 degrees QTcB Int : 480 ms Normal sinus rhythm Nonspecific ST abnormality QTcB >= 480 msec Abnormal ECG Confirmed by LACHO HILL, ASUNCION ([id number]), assistant film editor PATTI SUNG ([id number]) on 02/15/2025 1:51:26 PM Referred By: Confirmed By: ASUNCION MONK MD
--- NOTE | 2025-02-14 19:47 | EKG12_ITS ---
Test Reason : DYSRHYTHMIA Blood Pressure : */* mmHG Vent. Rate : 81 BPM Atrial Rate : 81 BPM P-R Int : 136 ms QRS Dur : 98 ms QT Int : 414 ms P-R-T Axes : 22 16 48 degrees QTcB Int : 480 ms Normal sinus rhythm Nonspecific ST abnormality QTcB >= 480 msec Abnormal ECG Confirmed by LACHO HILL, ASUNCION ([id number]), dictionary editor PATTI SUNG ([id number]) on 02/15/2025 1:51:26 PM Referred By: Confirmed By: ASUNCION MONK MD
--- NOTE | 2025-02-14 19:48 | EDS_ITS ---
HPI History of Present Illness Chief Complaint: General Illness Narrative Narrative: Patient is a 64-year-old male with past medical history of thrombocytopenia, anxiety, depression, alcohol abuse, hypertension who presents to the emergency department with a chief complaint of abdominal pain nausea vomiting. Patient states that he has had abdominal pain for approximately 5 days now and notes that things or not getting better he felt that things were actually getting worse therefore he came here for further evaluation management. Patient states that he is very distended and bloated. Patient denies any previous abdominal surgeries. He denies any coffee-ground emesis denies black tarry stools. He states that he is not really passing gas. Patient states he has never gone through alcohol withdrawal before. [facility] Medical History Chronic neck pain Thrombocytopenia Tobacco use Anxiety and depression ETOH abuse Alcohol dependence Hypertension Alcoholism Home Medications ?Medication ?Instructions ?Recorded ?Last Taken ?Type NK 02/15/25 Unknown History Allergy/AdvReac Type Severity Reaction Status Date / Time No Known Allergies Allergy Verified 02/14/25 16:46 Family History no significant family his Surgical History No history of previous surgery Social History household members: family Smoking Status: Current every day smoker tobacco type: cigarettes alcohol intake: current alcohol intake frequency: 3 or more drinks per day Alcohol type: hard liquor details: Usually drinks daily, vodka, unclear exact amount, last drink 2 days prior. substance use type: does not use ROS ROS ED ROS Narrative Constitutional: Denies any fevers, chills, headache Eyes: Denies change in vision double vision blurry vision Cardiovascular: Denies chest pain Respiratory: Denies shortness of breath Abdomen: Complains of abdominal pain as noted above as well as nausea vomiting : Denies any urinary symptoms Neurological: Denies numbness, wheeze, tingling Musculoskeletal: Denies back pain Skin: Denies any rashes or lesions EXAM Physical Exam Narrative Exam Narrative: General: Patient lying in bed rest comfortably did not appear to be in acute distress Head: Atraumatic, normocephalic Eyes: PERRL bilaterally, EOMI black no conjunctival injection noted Neck: Soft, supple, trachea midline Cardiovascular: Regular rate and rhythm no murmurs gallops rubs noted Respiratory: Clear to auscultation bilaterally Abdomen: Soft, nondistended, diffuse tenderness to palpation no rebound or guarding on exam Extremities: +5/5 strength noted in the bilateral upper and lower extremities, radial pulses +2/4 in bilateral extremities, no pedal edema exam Neurological: Patient following commands knew that he was at [facility] the year is 2024 Skin: Warm, dry, tact no rashes or lesions noted Const Vital Signs: 02/14/25 16:29 02/14/25 16:46 02/14/25 18:29 Temperature 99.0 F Temperature Source Oral Pulse Rate 81 85 84 Respiratory Rate 18 Respiratory Effort Blood Pressure 125/79 H 134/78 H 138/80 H Blood Pressure Mean 94 96 99 Pulse Ox 99 100 100 Oxygen Delivery Method Room Air Room Air Room Air 02/14/25 19:38 02/14/25 20:05 02/14/25 20:41 Temperature Temperature Source Pulse Rate 79 Respiratory Rate 16 Respiratory Effort Normal Non-Labored Blood Pressure 127/87 H 135/85 H Blood Pressure Mean 100 101 Pulse Ox 98 Oxygen Delivery Method Room Air MDM MDM MDM Narrative Medical decision making narrative: Patient is a 64-year-old male who presented to the emergency department the chief complaint of abdominal pain nausea vomiting. On the differential diagnose includes Melamin to bowel obstruction, ileus, pancreatitis, cholecystitis, cirr hosis. Once workup is obtained reviewed he will be reevaluated. Patient be given IV fluids morphine Zofran. Patient CBC reviewed showed a white blood count of 3.1, he was 10.1, platelet count of 39 he is thrombocytopenic in the past this is better than his last blood drawl he has no bleeding at this point in time therefore we will hold off on any transfusion of platelets, sodium was 137, potassium was 3.4, creatinine normal at 0.71. Patient's total bilirubin was elevated at 3.77 which is elevated from the blood draws in the past, direct bilirubin elevated 2.47, AST and ALT were 263 and 77 which she does have transaminitis at baseline however this is worse. Patient's CT abdomen pelvis with IV contrast showed no significant interval change compared to CT on 02/03/2025. He has mild wall thickening involving the terminal ileum, cecum, ascending colon which could be result of portal colopathy though terminal ileitis/colitis could appear similar. Multiple adrenal nodules noted. Subacute to chronic appearing fractures of the lower right sided ribs. Repeated abdominal exam patient is still having significant pain and has pain of the right upper quadrant with his abnormal enzymes will add on an ultrasound. This was reviewed which showed possible gallbladder sludge though this could be artifact no stones or findings of acute cholecystitis. Heterogeneous appearance of the liver parenchyma with hepatic steatosis hepatomegaly. Perihepatic ascites noted normal common bile duct diameter measuring 5 mm. I reached out to on-call general surgeon Dr. Herman who states that he feels that this is a GI workup and should discuss with Dr. Quesada. I called and discussed with Dr. Quesada as he is on-call tomorrow to see if he would be willing to see this patient in consult tomorrow and he states that he would be willing to. Will discuss case with hospitalist as he has persistent abdominal pain nausea and vomiting increasing generalized weakness not tolerating oral intake. Do believe he will warrant admission. Discussed case with hospitalist Dr. Carrizales who accept patient for admission. Patient notified is agreeable to plan all question concerns answered. Lab Data Labs: Laboratory Results - last 24 hr 02/14/25 02/14/25 02/14/25 16:55 16:55 16:55 WBC 3.1 L RBC 2.99 L Hgb 10.1 L Hct 30.2 L MCV 101.0 H MCH 33.8 H MCHC 33.4 RDW Std Deviation 60.1 H RDW Coeff of Saloni 16.2 H Plt Count 39 L* MPV 10.0 Immature Gran % (Auto) 1.300 H Neut % (Auto) 59.7 Lymph % (Auto) 26.5 [place] % (Auto) 11.2 H Eos % (Auto) 0.3 Baso % (Auto) 1.0 Absolute Neuts (auto) 1.9 L Absolute Lymphs (auto) 0.83 Nucleated RBC % 0 Sodium 137 Potassium 3.4 Chloride 97 L Carbon Dioxide 14.0 L Anion Gap 26 H BUN 9 Creatinine 0.71 Est GFR (MDRD) Non-Af 103 BUN/Creatinine Ratio 12.6 Glucose 89 Calcium 9.0 Total Bilirubin 3.80 H 3.77 H Direct Bilirubin 2.47 H AST 259 H 263 H ALT 82 H Alkaline Phosphatase Total Protein Albumin Globulin Albumin/Globulin Ratio Lipase 02/14/25 02/14/25 02/14/25 16:55 16:55 16:55 WBC RBC Hgb Hct MCV MCH MCHC RDW Std Deviation RDW Coeff of Saloni Plt Count MPV Immature Gran % (Auto) Neut % (Auto) Lymph % (Auto) [place] % (Auto) Eos % (Auto) Baso % (Auto) Absolute Neuts (auto) Absolute Lymphs (auto) Nucleated RBC % Sodium Potassium Chloride Carbon Dioxide Anion Gap BUN Creatinine Est GFR (MDRD) Non-Af BUN/Creatinine Ratio Glucose Calcium Total Bilirubin Direct Bilirubin AST ALT 77 H Alkaline Phosphatase 129 129 Total Protein 9.1 H 9.0 H Albumin 3.4 Globulin Albumin/Globulin Ratio Lipase 02/14/25 02/14/25 16:55 16:55 WBC RBC Hgb Hct MCV MCH MCHC RDW Std Deviation RDW Coeff of Saloni Plt Count MPV Immature Gran % (Auto) Neut % (Auto) Lymph % (Auto) [place] % (Auto) Eos % (Auto) Baso % (Auto) Absolute Neuts (auto) Absolute Lymphs (auto) Nucleated RBC % Sodium Potassium Chloride Carbon Dioxide Anion Gap BUN Creatinine Est GFR (MDRD) Non-Af BUN/Creatinine Ratio Glucose Calcium Total Bilirubin Direct Bilirubin AST ALT Alkaline Phosphatase Total Protein Albumin 3.6 Globulin 5.7 H 5.4 H Albumin/Globulin Ratio 0.6 L Lipase 64 Radiography Diagnostic Testing: Clinical Impression(s) from Imaging Studies Abdomen/Pelvis CT 02/14/25 20:00 IMPRESSION: 1. No significant interval change compared to CT on 02/03/2025. Heterogeneous predominantly hypodense liver possibly representing steatosis, and small volume of perihepatic and pelvic ascites, are unchanged. 2. Mild wall thickening involving the terminal ileum, cecum, and ascending colon, which could be the result of portal colopathy, though terminal ileitis/colitis could appear similar. 3. Multiple adrenal nodules measuring up to 2.2 cm. Of note, there is a nodule interposed between the IVC and right kidney which may be adrenal in origin or an enlarged lymph node. Recommend nonemergent adrenal CT for further evaluation. 4. Subacute to chronic appearing fractures of the lower right-sided ribs, correlate with exam. There are healed appearing fractures of the left-sided ribs. Reading Location: [facility] Gallbladder Ultrasound 02/14/25 21:14 IMPRESSION: 1. Possible gallbladder sludge, though reverberation artifact could appear similar. No stones or findings for acute cholecystitis. 2. Heterogeneous appearance of the liver parenchyma with hepatic steatosis and hepatomegaly, unchanged. 3. Perihepatic ascites. 4. Normal caliber common bile duct measuring 5 mm. Reading Location: [facility] Discharge Plan Triage Chief Complaint: General Illness ED Provider: Cain Funes Dx/Rx/DC Orders Clinical Impression: Intractable vomiting with nausea, Intractable abdominal pain, Alcohol abuse, Transaminitis, Elevated bilirubin Prescriptions: No Action NK Primary Care Provider: Rajeev Villaseñor Referrals: Rajeev Villaseñor MD [Primary Care Provider] - Print Language: Syriac Disposition Disposition: Acute Care [facility]
--- NOTE | 2025-02-14 20:00 | CT_ITS ---
PROCEDURE: ABDOMEN/PELVIS W IV CONT ONLY 02/14/2025 REASON FOR EXAM: ABD PAIN, N/V TECHNIQUE: ABDOMEN/PELVIS W IV CONT ONLY Coronal and Sagittal reconstruction series were provided. CONTRAST: Isovue 370 VOLUME: 94 mL One or more dose reduction techniques were used (e.g., Automated exposure control, adjustment of the mA and/or kV according to patient size, use of iterative reconstruction technique. RADIATION DOSE SUMMARY: CTDlvol: 16.6 mGy DLP: 895 mGycm COMPARISON: CT abdomen and pelvis 02/03/2025 FINDINGS: Lung bases: Unremarkable Liver: Heterogeneous with extensive hypodensity throughout the liver, with relative sparing at the periphery of the right hepatic lobe, similar to prior. There is perihepatic ascites measuring up to 1.8 cm in thickness, unchanged from 01/2025. Gallbladder: No radiodense stones or significant wall thickening. Spleen: Punctate calcifications suggestive of prior granulomatous disease. Pancreas: Normal size without evidence of mass surrounding inflammation or ductal dilation. Adrenals: There are right adrenal nodules measuring 2.1 cm (series 2, image 35). Additionally, there is a left adrenal nodule measuring 2.2 cm (image 43). There is a lesion near the inferior aspect of the right adrenal gland, between the IVC and right kidney, measuring 1.9 cm (image 44). Kidneys: No stone or hydronephrosis. Bladder: Unremarkable Reproductive Organs: Prostatomegaly. Bowel: No obstruction. There is mild wall thickening involving the ascending colon and cecum, and to a lesser extent the terminal ileum. Normal caliber appendix. Vasculature: Mild diffuse atherosclerotic calcifications are noted. Peritoneum / Retroperitoneum: Small volume pelvic free fluid. Trace fluid in the right paracolic gutter. Bones: There are several nondisplaced fractures involving the posterior aspects of the lower right-sided ribs, with callus formation. Healed left-sided rib fractures. Multilevel degenerative changes of the spine. Soft tissues: Stranding in the left upper abdominal wall, similar to prior. CT/Abdomen/Pelvis W IV Cont ONLY IMPRESSION: 1. No significant interval change compared to CT on 02/03/2025. Heterogeneous predominantly hypodense liver possibly representing steatosis, and small volume of perihepatic and pelvic ascites, are unchanged. 2. Mild wall thickening involving the terminal ileum, cecum, and ascending col on, which could be the result of portal colopathy, though terminal ileitis/colitis could appear similar. 3. Multiple adrenal nodules measuring up to 2.2 cm. Of note, there is a nodule interposed between the IVC and right kidney which may be adrenal in origin or an enlarged lymph node. Recommend nonemergent adren al CT for further evaluation. 4. Subacute to chronic appearing fractures of the lower right-sided ribs, chau elate with exam. There are healed appearing fractures of the left-sided ribs. Reading Location: [id number]
[2025-02-14 20:05] VITALS: BP 127/87; PULSE 79; RESP 16; O2SAT 98
[2025-02-14] MEDS: 0.9% Normal Saline (1000mL) 1,000 ML 999 ML IV (20:15)
[2025-02-14 20:17] LABS: AST(SGOT) 263 U/L (<=37); Alanine Aminotransfer ALT/SGPT 77 U/L (<=46); Albumin, Serum 3.6 g/dL (3.4-4.8); Alkaline Phosphatase 129 U/L (40-129); Bilirubin, Direct 2.47 mg/dL (0.00-0.30); Globulin 5.4 g/dL (2.2-4.2)
[2025-02-14 20:41] VITALS: BP 135/85
--- NOTE | 2025-02-14 21:14 | US_ITS ---
PROCEDURE: GALLBLADDER 02/14/2025 REASON FOR EXAM: ELEVATED TOTAL BILIRUBIN AND DIRECT BILIRUBIN PAITNO COMPARISON: CT abdomen and pelvis 02/14/2025, abdominal ultrasound 12/19/2019 FINDINGS: Liver: Heterogeneous with markedly increased echogenicity, resulting in decreased penetration which limits evaluation. Liver measures 19.0 cm in length. There is perihepatic ascites as seen on same day CT. Gallbladder: No stones, wall thickening, or pericholecystic fluid. Questionable sludge near the gallbladder neck. Gallbladder measures 9.0 cm in length. Negative sonographic Campbell's sign per technologist report. Common bile duct: Normal measuring 5 mm. Pancreas: Obscured by bowel gas. Other: Visualized portions of the right kidney are unremarkable. No right upper quadrant ascites. US/Gallbladder IMPRESSION: 1. Possible gallbladder sludge, though reverberation artifact could appear si milar. No stones or findings for acute cholecystitis. 2. Heterogeneous appearance of the liver parenchyma with hepatic steatosis and hepatomegaly, unchanged. 3. Perihepatic ascites. 4. Normal caliber common bile duct measuring 5 mm. Reading Location: [id number]
--- NOTE | 2025-02-14 21:14 | US_ITS ---
PROCEDURE: GALLBLADDER 02/14/2025 REASON FOR EXAM: ELEVATED TOTAL BILIRUBIN AND DIRECT BILIRUBIN PATINO COMPARISON: CT abdomen and pelvis 02/14/2025, abdominal ultrasound 12/19/2019 FINDINGS: Liver: Heterogeneous with markedly increased echogenicity, resulting in decreased penetration which limits evaluation. Liver measures 19.0 cm in length. There is perihepatic ascites as seen on same day CT. Gallbladder: No stones, wall thickening, or pericholecystic fluid. Questionable sludge near the gallbladder neck. Gallbladder measures 9.0 cm in length. Negative sonographic Campbell's sign per technologist report. Common bile duct: Normal measuring 5 mm. Pancreas: Obscured by bowel gas. Other: Visualized portions of the right kidney are unremarkable. No right upper quadrant ascites. US/Gallbladder IMPRESSION: 1. Possible gallbladder sludge, though reverberation artifact could appear si milar. No stones or findings for acute cholecystitis. 2. Heterogeneous appearance of the liver parenchyma with hepatic steatosis and hepatomegaly, unchanged. 3. Perihepatic ascites. 4. Normal caliber common bile duct measuring 5 mm. Reading Location: [id number]
[2025-02-14] MEDS: Lorazepam 2 MG/ML WCH Syringe 1 MG IV (23:59)
[2025-02-15] VITALS (23 sets, daily range): BP systolic 104–153; BP diastolic 64–97; PULSE 54–101; RESP 7–18; TEMP 36.3–37.4; O2SAT 96–100; BMI 23.8
--- NOTE | 2025-02-15 00:13 | PCM.HP.STD ---
[facility] - General General Date of Admission: 02/15/25 Date of Service: 02/15/25 Chief Complaint: Intractable Nausea and Vomiting with Dark Emesis and Abdominal Pain. HPI Narrative JENNIFER MADRIGAL, is a 64 M with a past medical history of essential hypertension; currently not on treatment, depression with anxiety, OA; with chronic neck pain, chronic tobacco abuse and abuse chronic EtOH abuse; with patient denying history of EtOH withdrawal and history of admission here from December 19, 2023 to December 25, 2023 for treatment of EtOH withdrawal complicated by acute metabolic encephalopathy with hypokalemia, hypomagnesemia, hypophosphatemia and hyponatremia with pancytopenia suspected to be due to underlying liver disease and marrow suppression from EtOH who presents presents to [facility] ER complaining of intractable nausea and vomiting with dark emesis and abdominal pain. Mr. Madrigal reports of symptoms began approximately 5 days prior to admission with abdominal pain that was generalized and cramping in nature that was progressively getting worse so he finally decided to come in for further evaluation and treatment. He also admits to associated abdominal distention and bloating with the patient having multiple episodes of emesis in the ER that eventually turned dark in color suspicious for UGIB. He denies previous abdominal surgeries, coffee-ground emesis or black tarry stools. He states he is not passing flatus. He states his last drink was approximately 2 days ago. He denies associated fever, chills, runny nose, sore throat, changes in vision, chest pain, palpitations, heart racing, lower extremity edema, shortness of breath, cough, dysuria, hematuria, headache or rash. In the ER he was noted to have CT scan of the abdomen pelvis that revealed no significant change compared to February 03, 2025 with heterogenous predominantly hypodense liver possibly representing steatosis and small volume of perihepatic and pelvic ascites unchanged from previous with mild wall thickening involving the terminal ileum, cecum and ascending colon which could be the result of portal colopathy versus terminal ileitis/colitis which could appear similar. Multiple adrenal nodules measuring ~2.2 cm with a nodule interposed between the IVC and the right kidney which may be adrenal in origin or an enlarged lymph node with nonemergent adrenal CT for further evaluation recommended in addition to subacute to chronic appearing fractures of the lower Right sided ribs and healing of Left-sided ribs with recommendation to correlate with exam. He also underwent gallbladder ultrasound which revealed possible gallbladder sludge with no stones or acute findings for acute cholecystitis in addition to heterogenous appearance of the liver parenchyma with hepatic steatosis and hepatomegaly unchanged from previous with perihepatic ascites and normal caliber common bile duct measuring ~5 mm. His laboratory studies revealed severe thrombocytopenia of 39K present on admission in addition to Leukopenia of 3.1K and Anemia with hemoglobin of 10.1 g/dL present on admission with a corresponding CMP that revealed total bilirubin of 3.77 mg/dL, direct bilirubin of 2.47 mg/dL, AST of 263 units/L and ALT of 77 units/L consistent with Hyperbilirubinemia and Transaminitis due to suspected Cirrhosis from chronic EtOH abuse compounded by dark emesis in ER suspicious for UGIB potentially from gastric varices further complicated by impending EtOH withdrawal. He was then admitted to the ICU for ongoing care for state that is expected to extend beyond 2 midnights. [facility], LATER [facility] Medical History (Updated 02/15/25 @ 02:[address] Shabbir Cheng DO) Chronic neck pain Thrombocytopenia Tobacco use Anxiety and depression ETOH abuse Alcohol dependence Hypertension Alcoholism Home Medications ?Medication ?Instructions ?Recorded ?Last Taken ?Type NK 02/15/25 Unknown History Allergy/AdvReac Type Severity Reaction Status Date / Time No Known Allergies Allergy Verified 02/14/25 16:46 Family History no significant family his Surgical History No history of previous surgery Social History household members: family Smoking Status: Current every day smoker tobacco type: cigarettes alcohol intake: current alcohol intake frequency: 3 or more drinks per day Alcohol type: hard liquor details: Usually drinks daily, vodka, unclear exact amount, last drink 2 days prior. substance use type: does not use ROS ROS Narrative Review of Systems: Constitutional: Patient denies fever or chills. Eyes: Patient denies changes in vision or discharge from eyes. ENT: Patient denies runny nose, sore throat or ear pain. Resp: Patient denies shortness of breath or cough. CV: Patient denies chest pain, palpitations, heart racing or lower extremity edema. GI: Patient admits to abdominal pain that is generalized and cramping in nature with nausea and vomiting with dark emesis as per HPI. : Patient denies dysuria or hematuria. MSK: Patient denies arthralgias or myalgias. Skin: Patient denies rash, abscess or wounds. Psych: Patient denies symptoms of uncontrolled depression or anxiety. Neuro: Patient denies headache, paresthesias or focal neurologic deficits. Allergy: Patient denies lip swelling, tongue swelling or urticaria. Hematology: Patient admits to dark emesis as per HPI. Endocrinology: Patient denies polyuria, polydipsia, polyphagia or heat/cold intolerance. 14 point ROS otherwise negative except for positives noted above in HPI. Vital Signs Vital Signs Vital Signs: 02/14/25 16:29 02/14/25 16:46 02/14/25 18:29 Temperature 99.0 F Temperature Source Oral Pulse Rate 81 85 84 Respiratory Rate 18 Respiratory Effort Blood Pressure 125/79 H 134/78 H 138/80 H Blood Pressure Mean 94 96 99 Pulse Ox 99 100 100 Oxygen Delivery Method Room Air Room Air Room Air 02/14/25 19:38 02/14/25 20:05 02/14/25 20:41 Temperature Temperature Source Pulse Rate 79 Respiratory Rate 16 Respiratory Effort Normal Non-Labored Blood Pressure 127/87 H 135/85 H Blood Pressure Mean 100 101 Pulse Ox 98 Oxygen Delivery Method Room Air Weight Weight: 185 lb 10.067 oz Body Mass Index (BMI) 24.5 Physical Exam Const alert, oriented x3, no apparent distress and average body habitus Constitutional Narrative: Patient appears chronically ill and slightly lethargic. General Appearance: cooperative Orientation / Consciousness: lethargic HEENT normocephalic, head/scalp atraumatic and hearing grossly normal bilaterally HEENT Narrative: Mucous membranes dry. Eyes PERRL and EOMs intact bilaterally Neck no lymphadenopathy, supple and no JVD Resp normal respiratory effort, no retractions, no use of accessory muscles and clear to auscultation bilaterally Cardio regular rate and regular rhythm GI GI Narrative: Abdomen distended with diffuse mild tenderness to palpation but no rebound or guarding on exam. Extremity normal to inspection, full ROM and no clubbing, cyanosis or edema Skin Skin Narrative: Patient has mild jaundice but no rash, abscess or wounds noted. Neuro oriented x3, CN's II-XII intact bilaterally, moves all extremities and no focal motor deficits Sensorium / Orientation: awake, alert, oriented to person, oriented to place and oriented to time Speech: speech normal Psych Psych Narrative: Patient mildly lethargic. Mood & Affect: depressed Results Medical Records Data Attestation: I reviewed the patient's medical records Lab / Micro Data Attestation: I reviewed the patient's lab results. 02/14/25 16:55 02/14/25 16:55 Labs: Laboratory Results - last 24 hr 02/14/25 16:55: WBC 3.1 L, RBC 2.99 L, Hgb 10.1 L, Hct 30.2 L, MCV 101.0 H, MCH 33.8 H, MCHC 33.4, RDW Std Deviation 60.1 H, RDW Coeff of Saloni 16.2 H, Plt Count 39 L*, MPV 10.0, Immature Gran % (Auto) 1.300 H, Neut % (Auto) 59.7, Lymph % (Auto) 26.5, [place] % (Auto) 11.2 H, Eos % (Auto) 0.3, Baso % (Auto) 1.0, Absolute Neuts (auto) 1.9 L, Absolute Lymphs (auto) 0.83, Nucleated RBC % 0, Sodium 137, Potassium 3.4, Chloride 97 L, Carbon Dioxide 14.0 L, Anion Gap 26 H, BUN 9, Creatinine 0.71, Est GFR (MDRD) Non-Af 103, BUN/Creatinine Ratio 12.6, Glucose 89, Calcium 9.0, Total Bilirubin 3.80 H 02/14/25 16:55: Total Bilirubin 3.77 H, Direct Bilirubin 2.47 H, AST 259 H 02/14/25 16:55: AST 263 H, ALT 82 H 02/14/25 16:55: ALT 77 H, Alkaline Phosphatase 129 02/14/25 16:55: Alkaline Phosphatase 129, Total Protein 9.1 H 02/14/25 16:55: Total Protein 9.0 H, Albumin 3.4 02/14/25 16:55: Albumin 3.6, Globulin 5.7 H 02/14/25 16:55: Globulin 5.4 H, Albumin/Globulin Ratio 0.6 L, Lipase 64 Imaging Radiology Impression Abdomen/Pelvis CT 02/14/25 20:00 IMPRESSION: 1. No significant interval change compared to CT on 02/03/2025. Heterogeneous predominantly hypodense liver possibly representing steatosis, and small volume of perihepatic and pelvic ascites, are unchanged. 2. Mild wall thickening involving the terminal ileum, cecum, and ascending colon, which could be the result of portal colopathy, though terminal ileitis/colitis could appear similar. 3. Multiple adrenal nodules measuring up to 2.2 cm. Of note, there is a nodule interposed between the IVC and right kidney which may be adrenal in origin or an enlarged lymph node. Recommend nonemergent adrenal CT for further evaluation. 4. Subacute to chronic appearing fractures of the lower right-sided ribs, correlate with exam. There are healed appearing fractures of the left-sided ribs. Reading Location: [facility] Gallbladder Ultrasound 02/14/25 21:14 IMPRESSION: 1. Possible gallbladder sludge, though reverberation artifact could appear similar. No stones or findings for acute cholecystitis. 2. Heterogeneous appearance of the liver parenchyma with hepatic steatosis and hepatomegaly, unchanged. 3. Perihepatic ascites. 4. Normal caliber common bile duct measuring 5 mm. Reading Location: [facility] Assessment & Plan Assessment/Plan (1) Intractable vomiting with nausea: (2) Dark emesis: (3) Intractable abdominal pain: (4) Alcohol abuse: (5) Alcohol withdrawal: QUALIFIERS: Complication of substance-induced condition: with unspecified complication Qualified Code(s): F10.939 - Alcohol use, unspecified with withdrawal, unspecified (6) Elevated bilirubin: (7) Transaminitis: (8) Cirrhosis: QUALIFIERS: Ascites presence: with ascites Hepatic cirrhosis type: alcoholic cirrhosis Qualified Code(s): K70.31 - Alcoholic cirrhosis of liver with ascites (9) Leukopenia: QUALIFIERS: Leukopenia type: unspecified Qualified Code(s): D72.819 - Decreased white blood cell count, unspecified (10) Anemia: QUALIFIERS: Anemia type: unspecified type Qualified Code(s): D64.9 - Anemia, unspecified (11) Tobacco use: PLAN: Plan 1. Intractable nausea and vomiting with dark emesis worrisome for upper GI bleed - Admit to ICU. Keep strict n.p.o. and continue IV pantoprazole infusion began in ER. Give IV ondansetron as needed for nausea and vomiting. Give IM promethazine as needed for breakthrough nausea. Give morphine IV as needed for severe (level 6-10/10) pain. Finally, it business process architect on-call has been contacted by ER with formal consultation pending in the a.m. with help appreciated in advance. 2. Chronic EtOH abuse with last drink ~48 hours prior to admission with early EtOH withdrawal complicating #1 - EtOH Cessation will be strongly encouraged. Start phenobarbital IV 100 mg 3 times daily to prevent worsening withdrawal. 3. Severe thrombocytopenia of 39K present on admission noted previously and attributed to chronic liver disease and marrow suppression from chronic EtOH abuse compounding #1 & #2 - Type & Screen blood. Transfuse platelets for platelet count <20K or severe hemorrhage. 4. Total bilirubin of 3.77 mg/dL, direct bilirubin of 2.47 mg/dL, AST of 263 units/L and ALT of 77 units/L consistent with Hyperbilirubinemia and Transaminitis due to suspected Cirrhosis from chronic EtOH abuse adding to the medical complexity of #1 - #3 - Check CMP daily to follow trend. 5. Leukopenia of 3.1K and Anemia with hemoglobin of 10.1 g/dL present on admission also attributed to marrow-suppression from chronic EtOH abuse adding to the burden of disease outlined from #1 - #4 - Serialize CBC daily to follow trend. Check B12, Folate, iron level and ferritin to evaluate for potential underlying deficiency state in light of chronic EtOH abuse. 6. CT scan of the abdomen pelvis that revealed no significant change compared to February 03, 2025 with heterogenous predominantly hypodense liver possibly representing steatosis and small volume of perihepatic and pelvic ascites unchanged from previous with mild wall thickening involving the terminal ileum, cecum and ascending colon which could be the result of portal colopathy versus terminal ileitis/colitis which could appear similar. Multiple adrenal nodules measuring ~2.2 cm with a nodule interposed between the IVC and the right kidney which may be adrenal in origin or an enlarged lymph node with nonemergent adrenal CT for further evaluation recommended in addition to subacute to chronic appearing fractures of the lower Right sided ribs and healing of Left-sided ribs with recommendation to correlate with exam. He also underwent gallbladder ultrasound which revealed possible gallbladder sludge with no stones or acute findings for acute cholecystitis in addition to heterogenous appearance of the liver parenchyma with hepatic steatosis and hepatomegaly unchanged from previous with perihepatic ascites and normal caliber common bile duct measuring ~5 mm - Noted with no obvious acute findings that would explain patient's symptoms. 7. History of admission here from December 19, 2023 to December 25, 2023 for treatment of EtOH withdrawal complicated by acute metabolic encephalopathy with hypokalemia, hypomagnesemia, hypophosphatemia and hyponatremia with pancytopenia suspected to be due to underlying liver disease and marrow suppression from EtOH - Noted. 8. Chronic tobacco abuse - Tobacco Cessation will be strongly encouraged with nicotine patch however to control cravings. 9. Essential hypertension; currently not on treatment - Noted. 10. Depression with anxiety - Give IV lorazepam prn for breakthrough symptoms. 11. OA; with chronic neck pain - Stable. 12. DVT/GI prophylaxis - SCD's only in light of dark emesis outlined in #1. Patient on pantoprazole IV infusion for #1. Total time: Approximately (but not less than) 75 minutes. Charges/Coding Visit Charges Inpatient E&M: 54874 Init Hosp L3
[2025-02-15] MEDS: Pantoprazole Sodium 40 MG in 0.9% Normal Saline (100mL MB+) 100 ML 300 MG IV (00:16)
--- OUTSIDE RECORDS SUMMARY | 2025-02-15 01:07 | XMS RPT_ITS | CCD ---
Author Organization [facility] Care Team Providers Care Adult Day Care Worker Name Role Phone JENNIFER VILLASEÑOR MD Primary Care Physician Dr. Jennifer Villaseñor Primary Care Provider [phone] Dr. Brendan Childs Emergency Provider Dr. Taylor Kaur Attending Provider Dr. Taylor Kaur Admit Provider Dr. Taylor Kaur Other Provider [phone] Janet Erazo Attending Provider Unavailable Dr. Janet Erazo Other Provider Unavailable Dr. Papo Rodriguez Attending Provider Dr. Papo Rodriguez Other Provider JENNIFER VILLASEÑOR MD Primary Care Unavailable NATHANIEL CARUSO DO Attending Unavailable JENNIFER VILLASEÑOR MD Primary Care Unavailable DR MECCA SALEEM MD Attending UnavailJENNIFER Wray MD Primary Care Unavailable ASHLEIGH OLGUIN Attending Unavailable JENNIFER VILLASEÑOR MD Primary Care Unavailable EMILIE FIGUEROA DO Attending Unavailable JENNIFER VILLASEÑOR MD Primary Care Unavailable DR BRANDY CASTANEDA MD Attending UnavailJENNIFER Wray MD Primary Care Unavailable JENNIFER VILLASEÑOR MD Attending Unavailable JENNIFER VILLASEÑOR MD Primary Care Unavailable JENNIFER VILLASEÑOR MD Attending Unavailable JENNIFER VILLASEÑOR MD Attending Unavailable JENNIFER VILLASEÑOR MD Primary Care Unavailable Corrine Brandon S Unavailable Unavailable BENTON GARCIA DO Consulting Unavailable JANET SOSA MD Attending Unavailable JANET SOSA MD Admitting Unavailable JENNIFER VILLASEÑOR MD Primary Care Unavailable SUZANNA CARPENTER MD Attending Unavailable JENNIFER VILLASEÑOR MD Primary Care Unavailable JENNIFER VILLASEÑOR MD Primary Care Unavailable CHARLIE KENNY DO Attending Unavailable JENNIFER VILLASEÑOR MD Primary Care Unavailable ALEXANDRA PALAFOX MD Attending Unavailable DR ALEXANDRA SCHAFER MD Consulting UnavailJENNIFER Mckinley MD Primary Care Unavailable CAROLINA DREW, EMILIE Attending Unavailable ISAIAS HILL, JYOTI Consulting Unavailable ISAIAS HILL, JYOTI Attending Unavailable ISAIAS HILL, JYOTI Referring Unavailable CINDY GERMAN Admitting UnavailJENNIFER Gonsalez MD Primary Care Unavailable CINDY GERMAN Consulting Unavailbear Villaseñor MD, Dr. Boo Primary Care Provider [phone] Dr. Abby Marvin DO Emergency Provider Jennifer Villaseñor Primary Care Unavailable Abby Marvin Attending Unavailable Medications Current Medications Medication Drug Class(es) Dates Sig (Normalized) Sig (Original) Tylenol (1 source) Start: 05-26-2024 Tylenol See Instructions, Oral, 0 Refill(s) Start Date: 05/26/24 Status: Ordered acetaminophen 325 mg / oxyCODONE hydrochloride 2.5 mg oral tablet (8 sources) Opioid Agonist Start: 05-26-2024 End: 06-09-2024 take 1 tablet by mouth once daily at bedtime as needed for pain acetaminophen-oxyc odone 325 mg-2.5 mg oral tablet Dose = 1 tab(s), Oral, qHS, PRN as needed for pain, X 14 day(s), # 14 tab(s), 0 Refill(s), Pharmacy: [facility], Rib fracture, 187, cm, 05/26/24 13:07:00 EDT, Height, 84.9, kg, 05/26/24 13:07:00 EDT, Dosing Weight Start Date: 05/26/24 Stop Date: 06/09/24 Status: Ordered Start: 05-17-2024 End: 05-22-2024 take 1 tablet by mouth every six hours as needed for pain Percocet 5 mg-325 mg oral tablet Dose = 1 tab(s), Oral, q6h, PRN for pain, X 5 day(s), # 20 tab(s), 0 Refill(s), Pharmacy: [facility]/pharmacy #[id number], Rib fractures, 185.4, cm, 05/16/24 2:21:00 EDT, Height, 85.7, kg, 05/16/24 2:21:00 EDT, Dosing Weight Start Date: 05/17/24 Stop Date: 05/22/24 Status: Ordered Start: 12-19-2023 End: 12-25-2023 Oxycodone-Acetaminophen 5-32 5 mg tablet Discontinued 1 {tbl} PO EVERY 6 HOURS NEEDED as needed for pain December 19, 2023 12:00am December 25, 2023 10:19am Start: 12-19-2023 End: 12-25-2023 take 1 tablet by mouth every six hours as needed Oxycodone-Acetaminophen Discontinued 1 TABLET PO EVERY 6 HOURS NEEDED December 19, 2023 12:00am December 25, 2023 10:19am Start: 10-01-2023 End: 10-15-2023 take 1 tablet by mouth every six hours as needed for pain acetaminophen-oxyCODONE 325 mg-5 mg oral tablet Dose = 1 tab(s), Oral, q6hr, PRN as needed for pain, # 20 tab(s), 0 Refill(s), Pharmacy: [facility]/pharmacy #[id number], [facility] fracture, 185.4, cm, 10/01/23 8:30:00 EST, Height, 81.7, kg, 10/01/23 8:30:00 EST, Dosing Weight Start Date: 10/01/23 Stop Date: 10/15/23 Status: Ordered Start: 07-18-2023 End: 07-21-2023 take 1 tablet by mouth every four hours as needed for pain Percocet 5 mg-325 mg oral tablet Dose = 1 tab(s), Oral, q4h, PRN as needed for pain, Dx: [id number], # 12 tab(s), 0 Refill(s), Shoulder strain, 81.8 Start Date: 07/18/23 Stop Date: 07/21/23 Status: Ordered aspirin 81 mg delayed release oral tablet (1 source) Platelet Aggregation Inhibitor, Nonsteroidal Anti-inflammatory Drug Start: 01-08-2022 aspirin 81 mg oral delayed release tablet Dose : 162 mg = 2 tab(s), Oral, q60h, 0 Refill(s) Start Date: 01/08/22 Status: Ordered FeroSul 325 mg (65 mg elemental iron) oral tablet (5 sources) Start: 01-02-2024 FeroSul 325 mg (65 mg elemental iron) oral tablet Dose : 325 mg = 1 tab(s), Oral, BID, # 60 tab(s), 0 Refill(s), Pharmacy: [facility]/pharmacy #[id number], Alcohol abuse History of encephalopathy, 185.4, cm, 10/01/23 8:30:00 EST, Height, kg, 10/01/23 8:30:00 EST, Dosing Weight Start Date: 01/02/24 Status: Ordered folic acid 1 mg oral tablet (5 sources) Start: 01-02-2024 folic acid 1 mg oral tablet Dose : 1 mg = 1 tab(s), Oral, qDay, # 90 tab(s), 0 Refill(s), Pharmacy: [facility]/pharmacy #[id number], Alcohol abuse History of encephalopathy, 185.4, cm, 10/01/23 8:30:00 EST, Height, kg, 10/01/23 8:30:00 EST, Dosing Weight Start Date: 01/02/24 Status: Ordered ibuprofen 400 mg oral tablet (1 source) Nonsteroidal Anti-inflammatory Drug Start: 05-17-2024 Motrin Dose : 400 mg = 1 tab(s), Oral, q6h, 0 Refill(s) Start Date: 05/17/24 Status: Ordered lidocaine 0.05 mg/mg medicated patch (1 source) Antiarrhythmic, Amide Local Anesthetic Start: 05-26-2024 End: 06-25-2024 Lidoderm 5% topical patch Apply 1 patch(es), Topical, qDay, remove patches after 12 hours, X 30 day(s), # 30 patch(es), 0 Refill(s), Pharmacy: [facility], Rib fracture Alcoholic cirrhosis, 187, cm, 05/26/24 13:07:00 EDT, Height, 84.9, kg, 05/26/24 13:07:00 EDT, Dosing Weight Start Date: 05/26/24 Stop Date: 06/25/24 Status: Ordered meloxicam 7.5 mg oral tablet (1 source) Nonsteroidal Anti-inflammatory Drug Start: 01-08-2022 End: 01-22-2022 meloxicam 7.5 mg oral tablet Dose : 7.5 mg = 1 tab(s), Oral, BID, PRN Pain, # 28 tab(s), 0 Refill(s), Pharmacy: [facility]/pharmacy #[id number], Left hand pain, 180.3, cm, 01/08/22 11:02:00 EDT, Height Start Date: 01/08/22 Stop Date: 01/22/22 Status: Ordered Milk of Magnesia (1 source) Start: 05-17-2024 take 1 dose by mouth once daily as needed for constipation Milk of Magnesia Dose = 30 mL, Oral, qDay, PRN Constipation, 0 Refill(s) Start Date: 05/17/24 Status: Ordered Pfgjbzyc-Jawv-W r-Akcahmd-Mqqq (Therapeutic-M) 9 mg iron-400 mcg Tablet (2 sources) Start: 12-25-2023 take 9 tablets by mouth once at breakfast Aepkzimn-Sdgn-Hr -Calcium-Mins (Therapeutic-M) 9 mg iron-400 mcg Tablet Active 1 {tbl} PO WITH BREAKFAST December 25, 2023 12:00am Start: 12-25-2023 Multivit-Iron- If-Iaaukrr-Xazg (Therapeutic-M) 9 mg iron-400 mcg Tablet Active 1 TABLET PO WITH BREAKFAST December 25, 2023 12:00am mupirocin 0.02 mg/mg topical ointment (1 source) RNA Synthetase Inhibitor Antibacterial Start: 09-09-2021 mupirocin 2% topical ointment Apply 1 louisa, Topical, TID, # 22 gram(s), 0 Refill(s), Pharmacy: [facility]/pharmacy #[id number], Ointment, 187, cm, 09/09/21 10:00:00 EST, Height, 84.4, kg, 09/09/21 10:00:00 EST, Dosing Weight Start Date: 09/09/21 Status: Ordered 24 hr nicotine 0.583 mg/hr transdermal system (2 sources) Cholinergic Nicotinic Agonist Start: 12-25-2023 apply 1 dose transdermal route every twenty-four hours Nicotine 14 mg/24 hr Patch 24 Hour Active 14 mg TD DAILY December 25, 2023 12:00am Start: 12-25-2023 Nicotine Activ e 14 MG TD DAILY December 25, 2023 12:00am pantoprazole 40 mg delayed release oral tablet (9 sources) Proton Pump Inhibitor Start: 10-01-2023 take 1 tablet by mouth once daily Pantoprazole 40 mg tablet,delayed release (DR/EC) Active 40 mg PO DAILY December 19, 2023 12:00am Start: 08-26-2023 pantoprazole 4 0 mg oral enteric coated tablet Dose : 40 mg = 1 tab(s), Oral, qDay, # 30 tab(s), 0 Refill(s), Pharmacy: [facility]/pharmacy #[id number], Alcoholism CHECO (generalized anxiety disorder), 185.4, cm, 08/26/23 16:00:00 EST, Height, kg, 08/26/23 16:00:00 EST, Dosing Weight Start Date: 08/26/23 Status: Ordered polyethylene glycol 3350 61761 mg powder for oral solution (1 source) Osmotic Laxative Start: 05-17-2024 Miralax Powde r Packet Oral, qDay, 0 Refill(s) Start Date: 05/17/24 Status: Ordered sertraline 50 mg oral tablet (1 source) Serotonin Reuptake Inhibitor Start: 08-29-2022 Zoloft 50 mg oral tablet Dose : 50 mg = 1 tab(s), Oral, qDay, # 30 tab(s), 1 Refill(s), Pharmacy: [facility]/pharmacy #[id number], Depression Alcoholism, 186, cm, 07/31/22 16:59:00 EST, Height, kg, 07/31/22 16:59:00 EST, Dosing Weight Start Date: 08/29/22 Status: Ordered thiamine 100 mg oral tablet (5 sources) Start: 01-02-2024 thiamine 100 m g oral tablet Dose : 100 mg = 1 tab(s), Oral, Daily, # 100 tab(s), 0 Refill(s), Pharmacy: [facility]/pharmacy #[id number], Alcohol abuse History of encephalopathy, 185.4, cm, 10/01/23 8:30:00 EST, Height, kg, 10/01/23 8:30:00 EST, Dosing Weight Start Date: 01/02/24 Status: Ordered traZODone hydrochloride 100 mg oral tablet (3 sources) Serotonin Reuptake Inhibitor Start: 05-26-2024 End: 05-21-2025 traZODone 100 mg oral tablet Dose : 100 mg = 1 tab(s), Oral, qHS, # 30 tab(s), 11 Refill(s), Pharmacy: [facility], 187, cm, 05/26/24 13:07:00 EDT, Height, kg, 05/26/24 13:07:00 EDT, Dosing Weight Start Date: 05/26/24 Stop Date: 05/21/25 Status: Ordered Start: 05-15-2024 traZODone 50 m g oral tablet Dose : 50 mg = 1 tab(s), Oral, qHS, 0 Refill(s) Start Date: 05/15/24 Status: Ordered vitamin b12 0.05 mg oral tablet (1 source) Vitamin B12 Start: 06-10-2021 Vitamin B12 50 mcg oral tablet Dose : 50 mcg = 1 tab(s), Oral, qDay, # 30 tab(s), 0 Refill(s) Start Date: 06/10/21 Status: Ordered Vitamin B12 50 mcg oral tablet (5 sources) Start: 06-10-2021 Vitamin B12 50 mcg oral tablet Dose : 50 mcg = 1 tab(s), Oral, qDay, # 30 tab(s), 0 Refill(s) Start Date: 06/10/21 Status: Ordered Vitamin B12 Methylcobalamin 5000 mcg sublingual tablet (5 sources) Start: 01-02-2024 Vitamin B12 Methylcobalamin 5000 mcg sublingual tablet Dose : 5,000 mcg = 1 tab(s), Sublingual, qWeek, # 12 tab(s), 1 Refill(s), Pharmacy: [facility]/pharmacy #[id number], Alcohol abuse History of encephalopathy, 185.4, cm, 10/01/23 8:30:00 EST, Height, kg, 10/01/23 8:30:00 EST, Dosing Weight Start Date: 01/02/24 Status: Ordered Completed/Discontinued Medications Medication Drug Class(es) Dates Sig (Normalized) Sig (Original) ALPRAZolam 1 mg oral tablet (4 sources) Benzodiazepine Start: 12-19-2023 End: 12-25-2023 take 1 tablet by mouth three times daily Alprazolam 1 mg tablet Discontinued 1 mg PO THREE TIMES A DAY December 19, 2023 12:00am December 25, 2023 10:19am Start: 08-26-2023 End: 09-25-2023 ALPRAZolam 1 mg oral tablet Dose : 1 mg = 1 tab(s), Oral, TID, # 90 tab(s), 0 Refill(s), Pharmacy: [facility]/pharmacy #[id number], Alcoholism CHECO (generalized anxiety disorder), 185.4, cm, 08/26/23 16:00:00 EST, Height, 82.7, kg, 08/26/23 16:00:00 EST, Dosing Weight Start Date: 08/26/23 Stop Date: 09/25/23 Status: Ordered LORazepam 1 mg oral tablet (9 sources) Benzodiazepine Start: 05-15-2024 LORazepam 1 mg oral tablet Dose : 1 mg = 1 tab(s), Oral, q8h, PRN as needed for anxiety, 0 Refill(s), 85.7 Start Date: 05/15/24 Status: Ordered Start: 05-05-2023 End: 07-04-2023 Ativan 1 mg oral tablet Dose : 1 mg = 1 tab(s), Oral, TID, # 90 tab(s), 1 Refill(s), [id number], Anxiety, generalized, 186, cm, 01/13/23 15:57:00 EDT, Height, 83.7, kg, 01/13/23 15:57:00 EDT, Dosing Weight Start Date: 05/05/23 Stop Date: 07/04/23 Status: Ordered Start: 11-28-2022 End: 02-26-2023 Ativan 1 mg oral tablet Dose : 1 mg = 1 tab(s), Oral, TID, # 90 tab(s), 2 Refill(s), [id number], Anxiety, generalized, 186, cm, 11/28/22 8:06:00 EDT, Height, 85.8, kg, 11/28/22 8:06:00 EDT, Dosing Weight Start Date: 11/28/22 Stop Date: 02/26/23 Status: Ordered Start: 10-16-2021 End: 11-15-2021 Ativan 1 mg oral tablet Dose : 1 mg = 1 tab(s), Oral, TID, # 90 tab(s), 0 Refill(s), Pharmacy: [facility]/pharmacy #[id number], Anxiety, generalized, 187, cm, 09/09/21 10:00:00 EST, Height, 84.4, kg, 09/09/21 10:00:00 EST, Dosing Weight Start Date: 10/16/21 Stop Date: 11/15/21 Status: Ordered Start: 06-10-2021 End: 07-10-2021 Ativan 1 mg oral tablet Dose : 1 mg = 1 tab(s), Oral, TID, # 90 tab(s), 0 Refill(s), Pharmacy: [facility]/pharmacy #[id number], Anxiety, generalized, 187, cm, 06/10/21 8:55:00 EDT, Height, 84.2, kg, 06/10/21 8:55:00 EDT, Dosing Weight Start Date: 06/10/21 Stop Date: 07/10/21 Status: Ordered losartan potassium 50 mg oral tablet (16 sources) Angiotensin 2 Receptor Bronwyn Start: 08-26-2023 End: 08-20-2024 losartan 50 mg oral tablet Dose : 50 mg = 1 tab(s), Oral, qDay, # 30 tab(s), 5 Refill(s), [id number], 185.4, cm, 10/01/23 8:30:00 EST, Height, kg, 10/01/23 8:30:00 EST, Dosing Weight Start Date: 10/01/23 Stop Date: 03/29/24 Status: Ordered Start: 07-09-2022 End: 07-04-2023 losartan 50 mg oral tablet D ose : 50 mg = 1 tab(s), Oral, qDay, # 90 tab(s), 3 Refill(s), [id number], 185, cm, 07/09/22 15:23:00 EST, Height, kg, 07/09/22 15:23:00 EST, Dosing Weight Start Date: 07/09/22 Stop Date: 07/04/23 Status: Ordered Start: 06-10-2021 End: 06-05-2022 losartan 50 mg oral tablet D ose : 50 mg = 1 tab(s), Oral, qDay, # 90 tab(s), 3 Refill(s), Pharmacy: [facility]/pharmacy #[id number], 187, cm, 06/10/21 8:55:00 EDT, Height, kg, 06/10/21 8:55:00 EDT, Dosing Weight Start Date: 06/10/21 Stop Date: 06/05/22 Status: Ordered Start: 11-21-2019 End: 12-25-2023 Losartan 50 MG tablet Discon tinued 1 {tbl} PO DAILY November 21, 2019 12:00am December 25, 2023 10:19am mirtazapine 30 mg oral tablet (10 sources) Start: 08-26-2023 End: 12-25-2023 take 1 tablet by mouth at bedtime Mirtazapine 30 mg tablet Discontinued 30 mg PO AT BEDTIME December 19, 2023 12:00am December 25, 2023 10:19am Problems Active Problems Problem Classification Problem Date Documented Date Episodic/Chronic Alcohol-related disorders (20 sources) Alcoholism; Translations: [Alcoholic cirrhosis] Onset: 09-07-2023 12-30-2019 Chronic Alcohol-related disorders (1 source) Alcohol use, unspecified with intoxication, unspecified; Translations: [Alcohol use, unspecified with intoxication, unspecified] Onset: 11-01-2023 Episodic Anxiety disorders (20 sources) Anxiety; Translations: [Generalized anxiety disorder] Onset: 09-07-2023 10-15-2020 Chronic Chronic obstructive pulmonary disease and bronchiectasis (11 sources) Bronchitis 11-17-2022 Episodic Coagulation and hemorrhagic disorders (13 sources) Purpura of skin co-occurrent and due to vascular fragility 05-13-2023 Episodic Crushing injury or internal injury (1 source) Traumatic pneumothorax; Translations: [Traumatic pneumothorax, initial encounter] Episodic Deficiency and other anemia (1 source) Acquired pancytopenia; Translations: [Other pancytopenia] 02-03-2025 Chronic Deficiency and other anemia (3 sources) Anemia 05-26-2024 Episodic Disorders of lipid metabolism (17 sources) Hyperlipidemia; Translations: [Hyperlipidemia, unspecified] 05-03-2019 Chronic E Codes: Fall (3 sources) Fall; Translations: [Unspecified fall, initial encounter] Onset: 11-01-2023 Episodic Essential hypertension (20 sources) Hypertensive disorder; Translations: [Essential (primary) hypertension] Onset: 10-08-2024 12-30-2019 Chronic Fracture of upper limb (9 sources) Closed fracture of upper end of humerus; Translations: [Closed fracture of phalanx of finger] Onset: 08-05-2024 10-01-2023 Episodic Gastritis and duodenitis (8 sources) Gastritis 10-01-2023 Episodic Hyperplasia of prostate (13 sources) Benign prostatic hypertrophy with outflow obstruction 12-30-2019 Chronic Influenza (1 source) Influenza; Translations: [Influenza due to other identified influenza virus with other respiratory manifestations] Onset: 10-08-2024 Episodic Joint disorders and dislocations; trauma-related (1 source) Dislocation of shoulder joint; Translations: [Unspecified dislocation of unspecified shoulder joint, initial encounter] Onset: 07-10-2023 Episodic Malaise and fatigue (12 sources) Asthenia; Translations: [Weakness] Onset: 09-07-2023 08-26-2023 Episodic Mood disorders (16 sources) Depressive disorder 12-30-2019 Chronic Nutritional deficiencies (9 sources) Undernutrition; Translations: [Deficiency of macronutrients] 10-01-2023 Chronic Other acquired deformities (15 sources) Scoliosis deformity of spine; Translations: [Scoliosis, unspecified] 01-13-2023 Chronic Other connective tissue disease (10 sources) Bursitis of right hip 05-13-2023 Episodic Other connective tissue disease (10 sources) Muscle weakness of upper limb 08-26-2023 Episodic Other fractures (1 source) Closed fracture of first lumbar vertebra; Translations: [Other fracture of first lumbar vertebra, initial encounter for closed fracture] Episodic Other fractures (1 source) Closed fracture of one rib; Translations: [Fracture of one rib, unspecified side, initial encounter for closed fracture] Episodic Other fractures (1 source) Fracture of left rib; Translations: [Fracture of one rib, left side, initial encounter for closed fracture] 02-03-2025 Episodic Other injuries and conditions due to external causes (1 source) H/O: fracture; Translations: [Personal history of (healed) traumatic fracture] Onset: 05-26-2024 Episodic Other injuries and conditions due to external causes (1 source) Closed injury of head; Translations: [Unspecified injury of head, initial encounter] 02-03-2025 Episodic Other injuries and conditions due to external causes (1 source) Unspecified injury of head, initial encounter; Translations: [Unspecified injury of head, initial encounter] Onset: 02-09-2025 Episodic Other lower respiratory disease (1 source) Pleuritic pain; Translations: [Pleurodynia] Onset: 05-26-2024 Episodic Other nervous system disorders (1 source) Walking disability; Translations: [Difficulty in walking, not elsewhere classified] Chronic Other nervous system disorders (16 sources) Tremor 10-15-2020 Episodic Other nervous system disorders (1 source) H/O: LACE WINDER disorder; Translations: [Personal history of other diseases of the nervous system and sense organs] Onset: 05-16-2024 Episodic Other non-traumatic joint disorders (11 sources) Hip pain 01-13-2023 Episodic Other non-traumatic joint disorders (1 source) Pain in right hip joint; Translations: [Pain in right hip] Episodic Other non-traumatic joint disorders (1 source) Hip stiff; Translations: [Stiffness of right hip, not elsewhere classified] Episodic Other nutritional; endocrine; and metabolic disorders (16 sources) Hypomagnesemia; Translations: [Hypomagnesemia] Onset: 10-08-2024 12-09-2022 Chronic Paralysis (10 sources) Right hemiparesis 08-26-2023 Chronic Karyna-; endo-; and myocarditis; cardiomyopathy (except that caused by tuberculosis or sexually transmitted disease) (16 sources) Dilated cardiomyopathy 09-24-2020 Chronic Pleurisy; pneumothorax; pulmonary collapse (1 source) Pneumothorax; Translations: [Pneumothorax, unspecified] Episodic Residual codes; unclassified (17 sources) Insomnia; Translations: [Insomnia, unspecified] Onset: 05-16-2024 10-15-2020 Episodic Residual codes; unclassified (7 sources) Edema of right upper arm 08-26-2023 Episodic Residual codes; unclassified (7 sources) Edema of right upper limb 08-26-2023 Episodic Residual codes; unclassified (1 source) Altered mental status; Translations: [Altered mental status, unspecified] Onset: 10-08-2024 Episodic Residual codes; unclassified (1 source) Tobacco user; Translations: [Tobacco use] Onset: 10-08-2024 Episodic Residual codes; unclassified (2 sources) Altered mental status, unspecified; Translations: [Altered mental status, unspecified] Onset: 10-08-2024 Episodic Spondylosis; intervertebral disc disorders; other back problems (20 sources) Cervical radiculitis; Translations: [Lumbosacral radiculitis] 12-30-2019 Episodic Sprains and strains (12 sources) Injury of multiple muscles and tendons at shoulder and upper arm level; Translations: [Strain of unspecified muscle, fascia and tendon at shoulder and upper arm level, unspecified arm, initial encounter] Onset: 07-18-2023 Episodic Unclassified (11 sources) SARS-CoV-2 viremia 11-17-2022 Urinary tract infections (1 source) Urinary tract infectious disease; Translations: [Urinary tract infection, site not specified] Onset: 10-08-2024 Episodic Past or Other Problems Problem Classification Problem Date Documented Date Episodic/Chronic Other connective tissue disease (2 sources) Other symptoms and signs involving the musculoskeletal system; Translations: [Other symptoms and signs involving the musculoskeletal system] Onset: 09-07-2023 Episodic Residual codes; unclassified (2 sources) Localized edema; Translations: [Localized edema] Onset: 09-07-2023 Episodic Results Test Name Value Interpretation Reference Range Facility 12 Lead EKGon 02-03-2025 12 Lead EKG [facility] [address] [place] [address] 12 Lead EKG 02/03/25 1328 MR#: [id number] Acct: [id number] Name: JENNIFER YORK Rep #: [id number] : 1960 64 From: Leander Gusman MD Attending Dr: Status: DEP ER Ordering Dr: Abby Marvin DO Date: 02/03/25 Location: ED Sex: M C Admitted: Test Reason : Blood Pressure : */* mmHG Vent. Rate : 89 BPM Atrial Rate : 89 BPM P-R Int : 162 ms QRS Dur : 96 ms QT Int : 396 ms P-R-T Axes : 37 24 46 degrees QTcB Int : 481 ms Normal sinus rhythm Nonspecific ST abnormality Prolonged QT Abnormal ECG Confirmed by Leander Gusman ([id number]), commercial production editor BLAYNE JENKINS ([id number]) on 02/07/2025 11:39:28 AM Referred By: Confirmed By: Laender Gusman 02/07/25 1139 Date Leander Gusman MD CC: Dr. Abby Marvin DO; Dr. Jennifer Villaseñor MD Signed Normal [facility] Abdomen/Pelvis W IV Cont ONL Yon 02-03-2025 Abdomen/Pelvis W IV Cont ONLY [facility] [address] [place], [place] [id number] Abdomen/Pelvis W IV Cont ONLY MR#: [id number] Acct: [id number] Name: JENNIFER YORK Rep #: [id number] : 1960 M 64 From: Michael Brunner MD PCP: Dr. Jennifer Villaseñor MD Status: REG ER Study: Abdomen/Pelvis W IV Cont ONLY Date of Exam: Exam# [id number] Ordering Dr: Abby Marvin DO EXAM: CT Abdomen and Pelvis With Intravenous Contrast CLINICAL INDICATION: RIGHT SIDED TRAUMA, FREE FLUID ON CT CHEST TECHNIQUE: Axial computed tomography images of the abdomen and pelvis with intravenous contrast. This CT exam was performed using one or more of the following dose reduction techniques: automated exposure control, adjustment of the mA and/or kV according to patient size, and/or use of iterative reconstruction technique. COMPARISON: No relevant prior studies available. FINDINGS: LUNG BASES: Unremarkable. No mass. No consolidation. MEDIASTINUM: Small esophageal hiatal hernia. ABDOMEN: LIVER: Unremarkable. No mass. GALLBLADDER AND BILE DUCTS: Unremarkable. No calcified stones. No ductal dilation. PANCREAS: Unremarkable. No mass. No ductal dilation. SPLEEN: Unremarkable. No splenomegaly. ADRENALS: Unremarkable. No mass. KIDNEYS AND URETERS: Unremarkable. No solid mass. No hydronephrosis. STOMACH AND BOWEL: Fecal retention in the colon consistent with constipation. No obstruction. No mucosal thickening. PELVIS: APPENDIX: No findings to suggest acute appendicitis. BLADDER: Unremarkable. No mass. REPRODUCTIVE: The prostate gland is enlarged measuring 5.3 cm in maximum dimension. ABDOMEN and PELVIS: INTRAPERITONEAL SPACE: Fatty liver with isodense area, likely fatty sparing regions. Ascites with Hounsfield units less than 15. This is unlikely blood. However, this is not a dedicated CTA exam. No free air. BONES/JOINTS: Multilevel endplate degenerative changes and disc disease of the lumbar spine. No acute fracture. No dislocation. SOFT TISSUES: Umbilical hernia containing fat. Inguinal hernias, bilaterally. VASCULATURE: Scattered calcified atherosclerotic disease of aorta. No abdominal aortic aneurysm. LYMPH NODES: Unremarkable. No enlarged lymph nodes. CT/Abdomen/Pelvis W IV Cont ONLY IMPRESSION: 1. Fatty liver with isodense area, likely fatty sparing regions. Ascites with Hounsfield units less than 15. This is unlikely blood. However, this is not a dedicated CTA exam. 2. The prostate gland is enlarged. Correlation with PSA values may be helpful if not previously performed. 3. Small esophageal hiatal hernia. 4. Fecal retention in the colon consistent with constipation. 5. Umbilical hernia containing fat. 6. Inguinal hernias, bilaterally. Reading Location: [facility] CC: Dr. Abby Marvin DO; Dr. Jennifer Villaseñor MD Processing Associate: Signed Normal [facility] Absolute lymphocyte countOrd ered By: Abby Marvin on 02-03-2025 Lymphocytes Auto (Unsp spec) [#/Vol] 1.42 10*3/uL 0.83-4.51 [facility] Absolute neutrophil countOrd ered By: Abby Marvin on 02-03-2025 Neutrophils (Bld) [#/Vol] 1.6 10*3/uL Low 2.0-7.7 [facility] Alcohol, Blood (Medical)-Ser umon 02-03-2025 SERUM ETOH 335.0 mg/dL Invalid Interpretation Code <=10.0 [facility] Comment on above: Result Comment: Crit ical Result(s) Called at:02/03/2025-14:10 by: Aris Kaur to Tigre Saleem??Results read back by same. This test is for medical purposes only. The legal definition of intoxication varies according to local law. Performed By: #### L 100.0100, L500.4050, L501.9100 #### [facility] [address] [place], [place], [id number] Anion gap in Serum or Plasma Ordered By: Abby Mravin on 02-03-2025 Anion gap [Moles/Vol] 21 mmol/L High 5-15 [facility] Automated lymphocyte count a s percentage of total leukocytesOrdered By: Abby Marvin on 02-03-2025 Lymphocytes/100 WBC Auto (Unsp spec) 40.6 % -41 [facility] BUN/creatinine ratioOrdered By: Abby Marvin on 02-03-2025 Urea nitrogen/Creatinine [Mass ratio] 13.8 mg/mg 10- [facility] Basophil percentageOrdered B y: Abby Marvin on 02-03-2025 Basophils/100 WBC (Bld) 0.9 % 0-1 [facility] Bilirubin, totalOrdered By: Abby Yon on 02-03-2025 Bilirubin [Mass/Vol] 1.70 mg/dL High 0.00-1.30 [facility] Brain/Head without Contrasto n 02-03-2025 Brain/Head without Contrast [facility] [address] [place], [place] [address] Brain/Head without Contrast MR#: [id number] Acct: [id number] Name: JENNIFER YORK Rep #: [id number] : 1960 M 64 From: Yony pruitt MD PCP: Dr. Jennifer Villaseñor MD Status: REG ER Study: Brain/Head without Contrast Date of Exam: 01/16 Exam# [id number] Ordering Dr: Abby Marvin DO PROCEDURE: BRAIN/HEAD WITHOUT CONTRAST 02/03/2025 REASON FOR EXAM: HEAD TRAUMA TECHNIQUE: BRAIN/HEAD WITHOUT CONTRAST Coronal and Sagittal reconstruction series were provided. One or more dose reduction techniques were used (e.g., Automated exposure control, adjustment of the mA and/or kV according to patient size, use of iterative reconstruction technique. RADIATION DOSE SUMMARY: CTDlvol: 44.99 mGy DLP: 863.6 mGycm COMPARISON: Prior study dated December 18, 2023. FINDINGS: Brain: Low density in the periventricular white matter suggests mild chronic small vessel ischemic changes. CSF Spaces: Mild generalized cerebral atrophy Sinuses/Mastoids: Clear at visualized levels Bones: CT/Brain/Head without Contrast IMPRESSION: CHRONIC CHANGES. NO ACUTE FINDINGS. Reading Location: [place] [address] CC: Dr. Abby Marvin DO; Dr. Jennifer Villaseñor MD Processing Associate: Signed Normal [facility] CBC W/Diff, Automatedon 01-16 PLT EST MKD DEC Normal ADEQ [facility] Comment on above: Performed By: #### L 100.0100, L500.4050, L501.9100 #### [facility] [address] [place], [address] Carbon dioxide, total [Moles /volume] in Central venous bloodOrdered By: Abby Marvin on 02-03-2025 CO2 [Moles/Vol] 16.5 mmol/L Low 21.0-32.0 [facility] Chest without Contraston Chest without Contrast [facility] [address] [place] [address] Chest without Contrast MR#: [id number] Acct: [id number] Name: JENNIFER YORK Rep #: [id number] : 1960 M 64 From: Yony pruitt MD PCP: Dr. Jennifer Villaseñor MD Status: REG ER Study: Chest without Contrast Date of Exam: 02/03/25 Exam# [id number] Ordering Dr: Abby Marvin DO PROCEDURE: CHEST WITHOUT CONTRAST 02/03/2025 REASON FOR EXAM: LEFT SIDED CHEST TRAUMA, FALL TECHNIQUE: Chest CT without contrast. Coronal and Sagittal reconstruction series were provided. One or more dose reduction techniques were used (e.g., Automated exposure control, adjustment of the mA and/or kV according to patient size, use of iterative reconstruction technique RADIATION DOSE SUMMARY: CTDlvol: 20.14 mGy DLP: 167.14 mGycm COMPARISON: None available for comparison. FINDINGS: Hardware: None Lymph nodes: No suspicious lymph nodes are seen. Calcified left hilar lymph node and subcarinal lymph node. Heart and Vasculature: Heart is nonenlarged. Coronary Artery Calcifications: No significant coronary artery calcification is seen. Lungs and Airways: Mild dependent atelectasis. Pleura: No pleural effusion Upper Abdomen: Fatty infiltration of the liver. Small amount of perisplenic fluid. Bones: Degenerative changes of the thoracic spine. CT/Chest without Contrast IMPRESSION: Coronary artery calcification (CAC) is is absent Heterogeneous appearance of the liver most likely secondary to diffuse fatty infiltration with focal areas of fatty sparing. Minimal amount of perisplenic fluid. [facility] CC: Dr. Abby Marvin, DO; Dr. Jennifer Villaseñor MD Processing Associate: Signed Normal [facility] Chloride assayOrdered By: Og Marvin on 02-03-2025 Chloride [Moles/Vol] 104 mmol/L 98-108 [facility] Comprehensive Metabolic Prof ilon 02-03-2025 Albumin [Mass/Vol] 3.7 g/dL Normal 3.4-4.8 [facility] Comment on above: Performed By: #### L 100.0100, L500.4050, L501.9100 #### [facility] [address] [place], [address] Albumin/Globulin [Mass ratio] 0.7 {ratio} Low 0.9-2.4 [facility] Comment on above: Performed By: #### L 100.0100, L500.4050, L501.9100 #### [facility] [address] [place], [address] ALK PHOS 110 U/L Normal 40-129 [facility] Comment on above: Performed By: #### L 100.0100, L500.4050, L501.9100 #### [facility] [address] [place], [address] ALT [Catalytic activity/Vol] 50 U/L High <=46 [facility] Comment on above: Performed By: #### L 100.0100, L500.4050, L501.9100 #### [facility] [address] [place], [address] AST [Catalytic activity/Vol] 154 U/L High <=37 [facility] Comment on above: Performed By: #### L 100.0100, L500.4050, L501.9100 #### [facility] [address] [place], [address] Bilirubin [Mass/Vol] 1.70 mg/dL High 0.00-1.30 [facility] Comment on above: Performed By: #### L 100.0100, L500.4050, L501.9100 #### [facility] [address] [place], [address] BUN/CRE 13.8 RATIO Normal 10-20 [facility] Comment on above: Performed By: #### L 100.0100, L500.4050, L501.9100 #### [facility] [address] [place], [address] Calcium [Mass/Vol] 8.6 mg/dL Normal 7.6-11.0 [facility] Comment on above: Performed By: #### L 100.0100, L500.4050, L501.9100 #### [facility] [address] [place], [address] Chloride [Moles/Vol] 104 mmol/L Normal 98-108 [facility] Comment on above: Performed By: #### L 100.0100, L500.4050, L501.9100 #### [facility] [address] [place], [address] CO2 [Moles/Vol] 16.5 mmol/L Low 21.0-32.0 [facility] Comment on above: Performed By: #### L 100.0100, L500.4050, L501.9100 #### [facility] [address] [place], [address] Creatinine [Mass/Vol] 0.71 mg/dL Normal 0.70-1.20 [facility] Comment on above: Performed By: #### L 100.0100, L500.4050, L501.9100 #### [facility] [address] [place], [address] GAP 21 High 5-15 [facility] Comment on above: Performed By: #### L 100.0100, L500.4050, L501.9100 #### [facility] [address] [place], [address] GFR/1.73 sq M.predicted among non-blacks MDRD (S/P/Bld) [Vol rate/Area] 102 mL/min/{1.73_m2} Normal >60 [facility] Comment on above: Result Comment: mL/m in/1.73m2 CKD-EPI Creatinine Equation (2020) Performed By: #### L 100.0100, L500.4050, L501.9100 #### [facility] [address] [place], [address] Globulin (S) [Mass/Vol] 5.2 g/dL High 2.2-4.2 [facility] Comment on above: Performed By: #### L 100.0100, L500.4050, L501.9100 #### [facility] [address] [place], [address] Glucose [Mass/Vol] 84 mg/dL Normal 70-99 [facility] Comment on above: Performed By: #### L 100.0100, L500.4050, L501.9100 #### [facility] [address] [place], [address] Potassium [Moles/Vol] 3.7 mmol/L Normal 3.3-5.1 [facility] Comment on above: Performed By: #### L 100.0100, L500.4050, L501.9100 #### [facility] [address] [place], [address] Sodium [Moles/Vol] 142 mmol/L Normal 133-145 [facility] Comment on above: Performed By: #### L 100.0100, L500.4050, L501.9100 #### [facility] [address] [place], [address] T PROT 8.9 g/dL High 5.9-8.4 [facility] Comment on above: Performed By: #### L 100.0100, L500.4050, L501.9100 #### [facility] [address] [place], [address] Urea nitrogen [Mass/Vol] 10 mg/dL Normal 4-19 [facility] Comment on above: Performed By: #### L 100.0100, L500.4050, L501.9100 #### [facility] [address] [place], [address] Emergency Department Summary on 02-03-2025 Emergency Department Summary [facility] Records Department [address] [place] [address] Emergency Department Summary 02/03/25 MR#: [id number] Acct: [id number] Name: JENNIFER YORK Rep #: [id number] : 1960 64 From: Abby Marvin DO PCP: Dr. Jennifer Villaseñor MD Status:DEP ER Location: ED HPI HPI - Fall History of Present Illness Chief Complaint: Fall Informant: patient Narrative Narrative: Patient is a 64-year-old male with history of alcohol abuse, anxiety and depression presenting for evaluation after fall. Patient states he tripped on a log last night. He fell forward. He is a log hit his chest. He hit his head. He does not think he lost consciousness. He states he is otherwise been in his normal state of health. He is not on any blood thinners. Does have regular alcohol use. States that he lives alone and is going through divorce with his . Is quite tearful about this. Denies any blood thinner use. [facility] Medical History Chronic neck pain Thrombocytopenia Tobacco use Anxiety and depression ETOH abuse Alcohol dependence Hypertension Alcoholism Home Medications ???Medication ???Instructions ???Recorded ???Last Taken ???Type pantoprazole 40 mg tablet,delayed 40 mg PO DAILY GERD 12/19/23 Unkn own History release multivitamin-iron 9 mg-folic acid 1 tab PO BREAKFAST #0 tabs Unknown Rx 400 mcg-calcium and minerals tablet (Therapeutic-M) nicotine 14 mg/24 hr daily 14 mg transdermal DAILY #0 ea 12/15 Unknown Rx transdermal patch Allergy/AdvReac Type Severity Reaction Status Date / Time No Known Allergies Allergy Verified 02/03/25 11:54 Surgical History No history of previous surgery Social History household members: family Smoking Status: Current every day smoker tobacco type: cigarettes alcohol intake: current alcohol intake frequency: 3 or more drinks per day Alcohol type: hard liquor details: Usually drinks daily, vodka, unclear exact amount, last drink 2 days prior. substance use type: does not use ROS ROS ED Constitutional Constitutional ED: Denies chills or fever(s) Eyes Eyes: Denies change in vision Respiratory/Chest Respiratory/Chest: Reports other Details: left sided chest pain, hurts to breath ; Denies cough or dyspnea Gastrointestinal Gastrointestinal: Reports nausea; Denies abdominal pain or vomiting Musculoskeletal Musculoskeletal: Denies back pain Integumentary Reports Abrasions Neurologic Neurologic: Reports headache(s); Denies weakness Psychiatric Psychiatric: Reports anxiety Hematologic/Lymphatic Hematologic/Lymphatic: Denies easy bleeding or easy bruising EXAM Physical Exam Const Vital Signs: 02/03/25 11:54 02/03/25 11:57 02/03/25 16:05 Temperature 97.9 F Temperature Source Oral Pulse Rate 91 82 Respiratory Rate 16 16 Respiratory Effort Normal Non-Labored Respiratory Depth Normal Respiratory Pattern Normal Blood Pressure 124/89 H 141/97 H Blood Pressure Mean 100 111 Pulse Ox 100 97 Oxygen Delivery Method Room Air Room Air Room Air Positive well nourished and well developed General Appearance ED: well developed and NAD HEENT Reports normocephalic and TM's normal bilaterally HEENT Narrative: abrasions and dried blood to the forehead. No laceration appreciated. No signs of basilar skull fracture. Eyes PERRL and EOMs intact bilaterally Neck full ROM General: Negative for tenderness Chest Wall Chest Narrative: Bruising noted to left chest wall. No chest wall crepitus. Tense palpation over the left lower anterior chest wall. No flail chest. Resp normal respiratory effort and clear to auscultation bilaterally Effort and Inspection: pain with movement Cardio regular rate, regular rhythm and no murmurs GI non-tender and non-distended Inspection: Negative for abdominal distention Palpation: soft; Negative for guarding Back/Spine no CVA tenderness Cervical Spine: Negative for cervical spine tenderness Thoracic Spine / Upper Back: Negative for thoracic spinal tenderness Lumbar Spine / Lower Back: Negative for lumbar spinal tenderness Neuro oriented x3, moves all extremities, no focal motor deficits and no sensory deficits noted Sensorium / Orientation: alert Psych Psych Narrative: Tearful, clinically mildly intoxicated Skin Skin Narrative: Bruising to the left anterior lower chest wall. Superficial abrasions to the right forehead/eyebrow area with no active bleeding. Physical Exam Const Vital Signs: 02/03/25 11:54 02/03/25 11:57 02/03/25 16:05 Temperature 97.9 F Temperatur (more content not included)... Normal [facility] Eosinophil percentageOrdered By: Abby Marvin on 02-03-2025 Eosinophils/100 WBC (Bld) 0.6 % 0-5 [facility] Erythrocyte distribution wid th ratioOrdered By: Abby Marvin on 02-03-2025 Erythrocyte distribution width (RBC) [Ratio] 15.4 % High 11.6-14.6 [facility] Erythrocyte distribution wid th standard deviationOrdered By: Abby Marvin on 02-03-2025 Erythrocyte distribution width (RBC) [Ratio] 59.4 fl High 35.1-43.9 [facility] Glomerular filtration rate ( GFR) estimation/1.73 sq m using serum, plasma, or whole bOrdered By: Abby Marvin on 02-03-2025 GFR/1.73 sq M.predicted among non-blacks MDRD (S/P/Bld) [Vol rate/Area] 102 mL/min/{1.73_m2} >60 [facility] Comment on above: mL/min/1.73m2 CKD-EP I Creatinine Equation (2020) Hematocrit Auto (Bld) [Volum e fraction]Ordered By: Abby Marvin on 02-03-2025 Hematocrit (Bld) [Volume fraction] 32.9 % Low 40-54 [facility] Hemoglobin measurementOrdere d By: Abby Marvin on 02-03-2025 Hemoglobin (Bld) [Mass/Vol] 11.0 g/dL Low 13.0-16.5 [facility] Immature granulocytes/100 WB C Auto (Bld)Ordered By: Abby Marvin on 02-03-2025 Immature granulocytes/100 WBC (Bld) 0.900 % 0.0-0.9 [facility] Comment on above: IG% - Immature Granu locytes (promyelocytes, myelocytes and metamyelocytes) > 1% indicates that a LEFT SHIFT is Present. Laboratory - Chemistry and C hemistry - challengeOrdered By: Abby Marvin on 02-03-2025 AST [Catalytic activity/Vol] 154 U/L High <38 [facility] MCV (mean corpuscular volume ) determinationOrdered By: Abby Marvin on 02-03-2025 MCV (RBC) [Entitic vol] 103.5 fL High 80-94 [facility] Mean corpuscular hemoglobin (MCH) determinationOrdered By: Abby Marvin on 02-03-2025 MCH (RBC) [Entitic mass] 34.6 pg High 27.0-32.0 [facility] Mean corpuscular hemoglobin concentration (MCHC) determinationOrdered By: Abby Marvin on 02-03-2025 MCHC (RBC) [Mass/Vol] 33.4 g/dL 32-36 [facility] Mean platelet volume determi nationOrdered By: Abby Marvin on 02-03-2025 Platelet mean volume (Bld) [Entitic vol] 11.6 fL 6.2-12.0 [facility] Monocyte percentageOrdered B y: bAby Marvin on 02-03-2025 Monocytes/100 WBC (Bld) 10.6 % High 0-10 [facility] Neutrophil percentageOrdered By: Abby Marvin on 02-03-2025 Neutrophils/100 WBC (Bld) 46.4 % Low 47-70 [facility] Nucleated red blood cell per centageOrdered By: Abby Marvin on 02-03-2025 Nucleated RBC/100 WBC (Bld) [Ratio] 0 % 0-5 [facility] Platelet countOrdered By: Og Marvin on 02-03-2025 Platelets (Bld) [#/Vol] 31 10*3/uL Low 150-450 [facility] Comment on above: CRITICAL VALUE ALANIS D TO [place] (ER)02/03/25 1348 Zafar Kang.RESULTS READ BACK BY SAME. Platelet estimateOrdered By: Abby Marvin on 02-03-2025 Platelets LM Ql (Bld) MKD DEC ADEQ [facility] Potassium measurement (mass/ volume)Ordered By: Abby Marvin on 02-03-2025 Potassium (Unsp spec) [Mass/Vol] 3.7 mmol/L 3.3-5.1 [facility] RBC Auto (Bld) [#/Vol]Ordere d By: Abby Marvin on 02-03-2025 RBC (Bld) [#/Vol] 3.18 10*6/uL Low 4.6-6.2 [facility] Serum creatinine measurement (mass/volume)Ordered By: Abby Marvin on 02-03-2025 Creatinine [Mass/Vol] 0.71 mg/dL 0.70-1.20 [facility] Serum globulin measurementOr dered By: Abby Marvin on 02-03-2025 Globulin (S) [Mass/Vol] 5.2 g/dL High 2.2-4.2 [facility] Serum glucose measurement (m ass/volume)Ordered By: Abby Marvin on 02-03-2025 Glucose [Mass/Vol] 84 mg/dL 70-99 [facility] Serum or plasma alanine eckert otransferase (ALT) measurementOrdered By: Abby Marvin on 02-03-2025 ALT [Catalytic activity/Vol] 50 U/L High <47 [facility] Serum or plasma albumin josé miguel urement (mass/volume)Ordered By: Abby Marvin on 02-03-2025 Albumin [Mass/Vol] 3.7 g/dL 3.4-4.8 [facility] Serum or plasma albumin/glob ulin mass ratioOrdered By: Abby Marvin on 02-03-2025 Albumin/Globulin [Mass ratio] 0.7 {ratio} Low 0.9-2.4 [facility] Serum or plasma alkaline silva sphatase measurementOrdered By: Abby Marvin on 02-03-2025 ALP [Catalytic activity/Vol] 110 U/L 40-129 [facility] Serum or plasma calcium josé miguel urement (mass/volume)Ordered By: Abby Marvin on 02-03-2025 Calcium [Mass/Vol] 8.6 mg/dL 7.6-11.0 [facility] Serum or plasma ethanol josé miguel urement (mass/volume)Ordered By: Abby Marvin on 02-03-2025 Ethanol [Mass/Vol] 335.0 mg/dL High <10.1 [facility] Comment on above: Critical Result(s) C alled at:02/03/2025-14:10 by: Aris Kaur to Tigre Saleem Results read back by same.This test is for medical purposes only. The legal definition of intoxication varies according to local law. Serum or plasma urea nitroge n measurement (mass/volume)Ordered By: Abby Marvin on 02-03-2025 Urea nitrogen [Mass/Vol] 10 mg/dL 4-19 [facility] Sodium levelOrdered By: Alvin Marvin on 02-03-2025 Sodium [Moles/Vol] 142 mmol/L 133-145 [facility] Total proteinOrdered By: Katherine Marvin on 02-03-2025 Protein [Mass/Vol] 8.9 g/dL High 5.9-8.4 [facility] White blood cell (WBC) count Ordered By: Abby Marvin on 02-03-2025 WBC (Bld) [#/Vol] 3.5 10*3/uL Low 4.4-11.0 [facility] .GFRon 10-13-2024 Estimated Glomerular Filtration Rate 104 ml/min/1.73sqm Normal [facility] Comment on above: Result Comment: Stages of Chronic Kidney Disease (CKD) Stage Description eGFR(ml/min/1.73 sq.m.) CKD 1 Normal kidney function or >=90 normal kindney function with possible kidney damage (ex. Proteinuria) CKD 2 Kidney damage with mild loss 60-89 of kidney function CKD 3a Mild to moderate loss of kidney 45-59 function CKD 3b Moderate to severe loss of 30-44 of kindey function CKD 4 Severe loss of kidney function 15-29 CKD 5 Kidney failure <15 Note: (go live 2024) the eGFR calculation was updated to the 2020 CKD-EPI creatinine equation without a race factor to calculate the eGFR results. Performed By: #### B MP, CBC, ADIFF, GFR, ANEU, MG #### [address] [address] BMPon 10-13-2024 BUN/Creatinine Ratio 10 ratio Normal 7-27 [facility] Comment on above: Performed By: #### B MP, CBC, ADIFF, GFR, ANEU, MG #### [address] [address] Calcium [Mass/Vol] 8.4 mg/dL Normal 8.4-10.2 [facility] Comment on above: Performed By: #### B MP, CBC, ADIFF, GFR, ANEU, MG #### [address] [address] Chloride [Moles/Vol] 101 mmol/L Normal 98-107 [facility] Comment on above: Performed By: #### B MP, CBC, ADIFF, GFR, ANEU, MG #### [address] [address] CO2 [Moles/Vol] 25 mmol/L Normal 23-31 [facility] Comment on above: Performed By: #### B MP, CBC, ADIFF, GFR, ANEU, MG #### [address] [address] Creatinine [Mass/Vol] 0.67 mg/dL Low 0.70-1.30 [facility] Comment on above: Result Comment: Test ing performed on Siemens Dimension EXL analyzer using a modified kinetic Tri technique. Performed By: #### B MP, CBC, ADIFF, GFR, ANEU, MG #### [address] [address] Electrolyte Balance 11.0 mEq/L Normal 4.0-15.0 [facility] Comment on above: Performed By: #### B MP, CBC, ADIFF, GFR, ANEU, MG #### [address] [address] Glucose [Mass/Vol] 84 mg/dL Normal 80-115 [facility] Comment on above: Performed By: #### B MP, CBC, ADIFF, GFR, ANEU, MG #### [address] [address] Potassium [Moles/Vol] 4.2 mmol/L Normal 3.5-5.1 [facility] Comment on above: Performed By: #### B MP, CBC, ADIFF, GFR, ANEU, MG #### [address] [address] Sodium [Moles/Vol] 137 mmol/L Normal 136-145 [facility] Comment on above: Performed By: #### B MP, CBC, ADIFF, GFR, ANEU, MG #### [address] [address] Urea nitrogen [Mass/Vol] 7 mg/dL Normal 7-18 [facility] Comment on above: Performed By: #### B MP, CBC, ADIFF, GFR, ANEU, MG #### [address] [address] HFPon 10-13-2024 Bili Indirect 0.9 mg/dL Normal [facility] Comment on above: Performed By: #### B MP, CBC, ADIFF, GFR, ANEU, MG #### [address] [address] Albumin Level 2.1 G/dL Low 3.4-4.8 [facility] Comment on above: Performed By: #### B MP, CBC, ADIFF, GFR, ANEU, MG #### [address] [address] Albumin/Globulin [Mass ratio] 0.5 {ratio} Low 1.1-2.5 [facility] Comment on above: Performed By: #### B MP, CBC, ADIFF, GFR, ANEU, MG #### [place] [address] ALP [Catalytic activity/Vol] 176 U/L High 40-135 [facility] Comment on above: Performed By: #### B MP, CBC, ADIFF, GFR, ANEU, MG #### [place] [address] ALT [Catalytic activity/Vol] 63 U/L Normal 16-63 [facility] Comment on above: Performed By: #### B MP, CBC, ADIFF, GFR, ANEU, MG #### [place] [address] AST [Catalytic activity/Vol] 262 U/L High 10-40 [facility] Comment on above: Performed By: #### B MP, CBC, ADIFF, GFR, ANEU, MG #### [place] [address] Bili Direct 3.6 mg/dL High 0.0-0.2 [facility] Comment on above: Result Comment: Use of this assay is not recommended for patients undergoing treatment with eltrombopag due to the potential for falsely elevated results. Performed By: #### B MP, CBC, ADIFF, GFR, ANEU, MG #### [place] [address] Bili Total 4.5 mg/dL High 0.2-1.0 [facility] Comment on above: Result Comment: Use of this assay is not recommended for patients undergoing treatment with eltrombopag due to the potential for falsely elevated results. Performed By: #### B MP, CBC, ADIFF, GFR, ANEU, MG #### [place] [address] Globulin 4.6 G/dL High 1.5-3.8 [facility] Comment on above: Performed By: #### B MP, CBC, ADIFF, GFR, ANEU, MG #### [place] [id number] Total Protein 6.7 G/dL Normal 6.4-8.2 [facility] Comment on above: Performed By: #### B MP, CBC, ADIFF, GFR, ANEU, MG #### [place] [id number] [place], [place] [address] LABORATORYOrdered By: SYSTEM SYSTEM on 10-13-2024 Albumin BCP dye [Mass/Vol] 2.1 G/dL Low 3.4 - 4.8 G/dL AO ADM SS Albumin/Globulin [Mass ratio] 0.5 {ratio} Low 1.1 - 2.5 ratio AO ADM SS ALP [Catalytic activity/Vol] 176 U/L High 40 - 135 U/L AO ADM SS ALT With P-5'-P [Catalytic activity/Vol] 63 U/L Normal 16 - 63 U/L AO ADM SS AST With P-5'-P [Catalytic activity/Vol] 262 U/L High 10 - 40 U/L AO ADM SS Bilirubin [Mass/Vol] 4.5 mg/dL High 0.2 - 1 .0 mg/dL AO ADM SS Comment on above: Interpretive Data: U se of this assay is not recommended for patients undergoing treatment with eltrombopag due to the potential for falsely elevated results. Bilirubin.direct [Mass/Vol] 3.6 mg/dL High 0.0 - 0.2 mg/dL AO ADM SS Comment on above: Interpretive Data: U se of this assay is not recommended for patients undergoing treatment with eltrombopag due to the potential for falsely elevated results. Bilirubin.direct [Mass/Vol] 0.9 mg/dL Invalid Interpretation Code AO Chemistry S Calcium [Mass/Vol] 8.4 mg/dL Normal 8.4 - 10. 2 mg/dL AO ADM SS Chloride [Moles/Vol] 101 mmol/L Normal 98 - 10 7 mmol/L AO ADM SS CO2 [Moles/Vol] 25 mmol/L Normal 23 - 31 mmol/L AO ADM SS Creatinine [Mass/Vol] 0.67 mg/dL Low 0.70 - 1.30 mg/dL AO ADM SS Comment on above: Interpretive Data: T esting performed on Siemens Dimension EXL analyzer using a modified kinetic Tri technique. Electrolyte Balance 11.0 mEq/L Normal 4.0 - 15 .0 mEq/L AO ADM SS Estimated Glomerular Filtration Rate 104 ml/min/1.73sqm Invalid Interpretation Code AO Chemistry S Comment on above: Interpretive Data: Stages of Chronic Kidney Disease (CKD) Stage Description eGFR(ml/min/1.73 sq.m.) CKD 1 Normal kidney function or >=90 normal kindney function with possible kidney damage (ex. Proteinuria) CKD 2 Kidney damage with mild loss 60-89 of kidney function CKD 3a Mild to moderate loss of kidney 45-59 function CKD 3b Moderate to severe loss of 30-44 of kindey function CKD 4 Severe loss of kidney function 15-29 CKD 5 Kidney failure <15 Note: (go live 2024) the eGFR calculation was updated to the 2020 CKD-EPI creatinine equation without a race factor to calculate the eGFR results. Globulin 4.6 G/dL High 1.5 - 3.8 G/dL AO ADM SS Glucose [Mass/Vol] 84 mg/dL Normal 80 - 115 mg/dL AO ADM SS Magnesium [Mass/Vol] 1.7 mg/dL Low 1.8 - 2 .4 mg/dL AO ADM SS Potassium [Moles/Vol] 4.2 mmol/L Normal 3.5 - 5.1 mmol/L AO ADM SS Protein [Mass/Vol] 6.7 G/dL Normal 6.4 - 8.2 G/dL AO ADM SS Sodium [Moles/Vol] 137 mmol/L Normal 136 - 145 mmol/L AO ADM SS Urea nitrogen [Mass/Vol] 7 mg/dL Normal 7 - 18 mg/dL AO ADM SS Urea nitrogen/Creatinine [Mass ratio] 10 ratio Normal 7 - 27 ratio AO ADM SS MGon 10-13-2024 Magnesium [Mass/Vol] 1.7 mg/dL Low 1.8-2.4 [facility] Comment on above: Performed By: #### B MP, CBC, ADIFF, GFR, ANEU, MG #### [address] [address] .GFRon 10-12-2024 Estimated Glomerular Filtration Rate 100 ml/min/1.73sqm Normal [facility] Comment on above: Result Comment: Stages of Chronic Kidney Disease (CKD) Stage Description eGFR(ml/min/1.73 sq.m.) CKD 1 Normal kidney function or >=90 normal kindney function with possible kidney damage (ex. Proteinuria) CKD 2 Kidney damage with mild loss 60-89 of kidney function CKD 3a Mild to moderate loss of kidney 45-59 function CKD 3b Moderate to severe loss of 30-44 of kindey function CKD 4 Severe loss of kidney function 15-29 CKD 5 Kidney failure <15 Note: (go live 2024) the eGFR calculation was updated to the 2020 CKD-EPI creatinine equation without a race factor to calculate the eGFR results. Performed By: #### R ESCOLIVIA #### [facility] [address] [place] [id number] BUN/Creatinine Ratio 9 ratio Normal 7-27 [facility] Comment on above: Performed By: #### Gabriel SAEZ UA #### [address] [address] Calcium [Mass/Vol] 8.3 mg/dL Low 8.4-10.2 [facility] Comment on above: Performed By: #### Gabriel SAEZ UA #### [address] [address] Chloride [Moles/Vol] 101 mmol/L Normal 98-107 [facility] Comment on above: Performed By: #### Gabriel SAEZ UA #### [address] [address] CO2 [Moles/Vol] 27 mmol/L Normal 23-31 [facility] Comment on above: Performed By: #### Gabriel SAEZ UA #### [address] [address] Creatinine [Mass/Vol] 0.76 mg/dL Normal 0.70-1.30 [facility] Comment on above: Result Comment: Test ing performed on Siemens Dimension EXL analyzer using a modified kinetic Tri technique. Performed By: #### Gabriel SAEZ UA #### [address] [address] Electrolyte Balance 6.0 mEq/L Normal 4.0-15.0 [facility] Comment on above: Performed By: #### U SE, UA #### [address] [address] Glucose [Mass/Vol] 82 mg/dL Normal 80-115 [facility] Comment on above: Performed By: #### Gabriel SAEZ UA #### [place] [address] [place], [place] [address] Potassium [Moles/Vol] 3.6 mmol/L Normal 3.5-5.1 [facility] Comment on above: Performed By: #### Gabriel SAEZ UA #### [address] [address] Sodium [Moles/Vol] 134 mmol/L Low 136-145 [facility] Comment on above: Performed By: #### Gabriel SAEZ UA #### [address] [address] Urea nitrogen [Mass/Vol] 7 mg/dL Normal 7-18 [facility] Comment on above: Performed By: #### Gabriel SAEZ UA #### [address] [address] HFPon 10-12-2024 Bili Indirect 0.6 mg/dL Normal [facility] Comment on above: Performed By: #### Blanche TAYLOR #### [address] [address] Albumin Level 2.0 G/dL Low 3.4-4.8 [facility] Comment on above: Performed By: #### Blanche TAYLOR #### [address] [address] Albumin/Globulin [Mass ratio] 0.5 {ratio} Low 1.1-2.5 [facility] Comment on above: Performed By: #### Blanche TAYLOR #### [address] [address] ALP [Catalytic activity/Vol] 161 U/L High 40-135 [facility] Comment on above: Performed By: #### Blanche TAYLOR #### [address] [address] ALT [Catalytic activity/Vol] 60 U/L Normal 16-63 [facility] Comment on above: Performed By: #### R ESCVID #### [place] [address] AST [Catalytic activity/Vol] 289 U/L High 10-40 [facility] Comment on above: Performed By: #### R ESCVID #### [place] [address] Bili Direct 3.0 mg/dL High 0.0-0.2 [facility] Comment on above: Result Comment: Use of this assay is not recommended for patients undergoing treatment with eltrombopag due to the potential for falsely elevated results. Performed By: #### R ESCVID #### [place] [address] Bili Total 3.6 mg/dL High 0.2-1.0 [facility] Comment on above: Result Comment: Use of this assay is not recommended for patients undergoing treatment with eltrombopag due to the potential for falsely elevated results. Performed By: #### R ESCVID #### [place] [address] Globulin 4.3 G/dL High 1.5-3.8 [facility] Comment on above: Performed By: #### R ESCVID #### [place] [address] Total Protein 6.3 G/dL Low 6.4-8.2 [facility] Comment on above: Performed By: #### R ESCVID #### [place] [address] LABORATORYOrdered By: SYSTEM SYSTEM on 10-12-2024 Albumin BCP dye [Mass/Vol] 2.0 G/dL Low 3.4 - 4.8 G/dL AO ADM SS Albumin/Globulin [Mass ratio] 0.5 {ratio} Low 1.1 - 2.5 ratio AO ADM SS ALP [Catalytic activity/Vol] 161 U/L High 40 - 135 U/L AO ADM SS ALT With P-5'-P [Catalytic activity/Vol] 60 U/L Normal 16 - 63 U/L AO ADM SS AST With P-5'-P [Catalytic activity/Vol] 289 U/L High 10 - 40 U/L AO ADM SS Bilirubin [Mass/Vol] 3.6 mg/dL High 0.2 - 1 .0 mg/dL AO ADM SS Comment on above: Interpretive Data: U se of this assay is not recommended for patients undergoing treatment with eltrombopag due to the potential for falsely elevated results. Bilirubin.direct [Mass/Vol] 3.0 mg/dL High 0.0 - 0.2 mg/dL AO ADM SS Comment on above: Interpretive Data: U se of this assay is not recommended for patients undergoing treatment with eltrombopag due to the potential for falsely elevated results. Bilirubin.direct [Mass/Vol] 0.6 mg/dL Invalid Interpretation Code AO Chemistry S Calcium [Mass/Vol] 8.3 mg/dL Low 8.4 - 10. 2 mg/dL AO ADM SS Chloride [Moles/Vol] 101 mmol/L Normal 98 - 10 7 mmol/L AO ADM SS CO2 [Moles/Vol] 27 mmol/L Normal 23 - 31 mmol/L AO ADM SS Creatinine [Mass/Vol] 0.76 mg/dL Normal 0.70 - 1.30 mg/dL AO ADM SS Comment on above: Interpretive Data: T esting performed on Siemens Dimension EXL analyzer using a modified kinetic Tri technique. Electrolyte Balance 6.0 mEq/L Normal 4.0 - 15 .0 mEq/L AO ADM SS Estimated Glomerular Filtration Rate 100 ml/min/1.73sqm Invalid Interpretation Code AO Chemistry S Comment on above: Interpretive Data: Stages of Chronic Kidney Disease (CKD) Stage Description eGFR(ml/min/1.73 sq.m.) CKD 1 Normal kidney function or >=90 normal kindney function with possible kidney damage (ex. Proteinuria) CKD 2 Kidney damage with mild loss 60-89 of kidney function CKD 3a Mild to moderate loss of kidney 45-59 function CKD 3b Moderate to severe loss of 30-44 of kindey function CKD 4 Severe loss of kidney function 15-29 CKD 5 Kidney failure <15 Note: (go live 2024) the eGFR calculation was updated to the 2020 CKD-EPI creatinine equation without a race factor to calculate the eGFR results. Globulin 4.3 G/dL High 1.5 - 3.8 G/dL AO ADM SS Glucose [Mass/Vol] 82 mg/dL Normal 80 - 115 mg/dL AO ADM SS Magnesium [Mass/Vol] 1.6 mg/dL Low 1.8 - 2 .4 mg/dL AO ADM SS Potassium [Moles/Vol] 3.6 mmol/L Normal 3.5 - 5.1 mmol/L AO ADM SS Protein [Mass/Vol] 6.3 G/dL Low 6.4 - 8.2 G/dL AO ADM SS Sodium [Moles/Vol] 134 mmol/L Low 136 - 145 mmol/L AO ADM SS Urea nitrogen [Mass/Vol] 7 mg/dL Normal 7 - 18 mg/dL AO ADM SS Urea nitrogen/Creatinine [Mass ratio] 9 ratio Normal 7 - 27 ratio AO ADM SS MGon 10-12-2024 Magnesium [Mass/Vol] 1.6 mg/dL Low 1.8-2.4 [facility] Comment on above: Performed By: #### R ESCVID #### [address] [address] .Auto Diffon 10-11-2024 Basophil, Absolute 0.0 10 3/mcL Normal 0.0-0.2 [facility] Comment on above: Performed By: #### B MP, CBC, ADIFF, GFR, ANEU, MG #### [address] [address] Basophils/100 WBC (Bld) 0.6 % Normal 0.0-2.5 [facility] Comment on above: Performed By: #### B MP, CBC, ADIFF, GFR, ANEU, MG #### [address] [address] Eosinophil, Absolute 0.0 10 3/mcL Normal 0.0-0.7 [facility] Comment on above: Performed By: #### B MP, CBC, ADIFF, GFR, ANEU, MG #### [address] [address] Eosinophils/100 WBC (Bld) 0.4 % Normal 0.0-7.0 [facility] Comment on above: Performed By: #### B MP, CBC, ADIFF, GFR, ANEU, MG #### [address] [address] Lymphocyte, Absolute 0.8 10 3/mcL Low 0.9-4.3 [facility] Comment on above: Performed By: #### B MP, CBC, ADIFF, GFR, ANEU, MG #### [address] [address] Lymphocytes/100 WBC (Bld) 21.7 % Normal 20.0-40.0 [facility] Comment on above: Performed By: #### B MP, CBC, ADIFF, GFR, ANEU, MG #### [address] [address] Monocyte, Absolute 0.3 10 3/mcL Normal 0.1-1.4 [facility] Comment on above: Performed By: #### B MP, CBC, ADIFF, GFR, ANEU, MG #### [address] [address] Monocytes/100 WBC (Bld) 7.8 % Normal 2.0-13.0 [facility] Comment on above: Performed By: #### B MP, CBC, ADIFF, GFR, ANEU, MG #### [address] [address] Neutrophils/100 WBC (Bld) 69.5 % Normal 50.0-75.0 [facility] Comment on above: Performed By: #### B MP, CBC, ADIFF, GFR, ANEU, MG #### [address] [address] .GFRon 10-11-2024 Estimated Glomerular Filtration Rate 104 ml/min/1.73sqm Normal [facility] Comment on above: Result Comment: Stages of Chronic Kidney Disease (CKD) Stage Description eGFR(ml/min/1.73 sq.m.) CKD 1 Normal kidney function or >=90 normal kindney function with possible kidney damage (ex. Proteinuria) CKD 2 Kidney damage with mild loss 60-89 of kidney function CKD 3a Mild to moderate loss of kidney 45-59 function CKD 3b Moderate to severe loss of 30-44 of kindey function CKD 4 Severe loss of kidney function 15-29 CKD 5 Kidney failure <15 Note: (go live 2024) the eGFR calculation was updated to the 2020 CKD-EPI creatinine equation without a race factor to calculate the eGFR results. Performed By: #### B MP, CBC, ADIFF, GFR, ANEU, MG #### [address] [address] .NEUABSon 10-11-2024 Neutrophil, Absolute 2.5 10 3/mcL Normal 2.3-8.1 [facility] Comment on above: Performed By: #### B MP, CBC, ADIFF, GFR, ANEU, MG #### [address] [address] Noemí 10-11-2024 Ammonia (P) [Moles/Vol] 12 umol/L Normal 11-32 [facility] Comment on above: Performed By: #### B MP, CBC, ADIFF, GFR, ANEU, MG #### [address] [address] BGon 10-11-2024 Base excess Calc (Bld) [Moles/Vol] 3.0 mmol/L Normal [facility] Comment on above: Performed By: #### B MP, CBC, ADIFF, GFR, ANEU, MG #### [address] [address] CO2 [Moles/Vol] 26.8 mmol/L Normal 22.0-30.0 [facility] Comment on above: Performed By: #### B MP, CBC, ADIFF, GFR, ANEU, MG #### [address] [address] HCO3 (Bld) [Moles/Vol] 25.8 mmol/L Normal 21.0-29.0 [facility] Comment on above: Performed By: #### B MP, CBC, ADIFF, GFR, ANEU, MG #### [address] [address] Oxygen (Bld) [Partial pressure] 58.4 mm[Hg] Low 74.0-108.0 [facility] Comment on above: Performed By: #### B MP, CBC, ADIFF, GFR, ANEU, MG #### [address] [address] Oxygen saturation in Blood 90.5 % Low 92.0-96.0 [facility] Comment on above: Performed By: #### B MP, CBC, ADIFF, GFR, ANEU, MG #### [address] [address] pCO2 33.4 mmHg Normal 32.0-46.0 [facility] Comment on above: Performed By: #### B MP, CBC, ADIFF, GFR, ANEU, MG #### [address] [address] pH (Bld) 7.506 [pH] High 7.380-7.46 0 [facility] Comment on above: Performed By: #### B MP, CBC, ADIFF, GFR, ANEU, MG #### [address] [address] BMPon 10-11-2024 BUN/Creatinine Ratio 10 ratio Normal 7-27 [facility] Comment on above: Performed By: #### B MP, CBC, ADIFF, GFR, ANEU, MG #### [address] [address] Calcium [Mass/Vol] 8.3 mg/dL Low 8.4-10.2 [facility] Comment on above: Performed By: #### B MP, CBC, ADIFF, GFR, ANEU, MG #### [address] [address] Chloride [Moles/Vol] 100 mmol/L Normal 98-107 [facility] Comment on above: Performed By: #### B MP, CBC, ADIFF, GFR, ANEU, MG #### [address] [address] CO2 [Moles/Vol] 28 mmol/L Normal 23-31 [facility] Comment on above: Performed By: #### B MP, CBC, ADIFF, GFR, ANEU, MG #### [address] [address] Creatinine [Mass/Vol] 0.67 mg/dL Low 0.70-1.30 [facility] Comment on above: Result Comment: Test ing performed on Siemens Dimension EXL analyzer using a modified kinetic Tri technique. Performed By: #### B MP, CBC, ADIFF, GFR, ANEU, MG #### [address] [address] Electrolyte Balance 7.0 mEq/L Normal 4.0-15.0 [facility] Comment on above: Performed By: #### B MP, CBC, ADIFF, GFR, ANEU, MG #### [address] [address] Glucose [Mass/Vol] 80 mg/dL Normal 80-115 [facility] Comment on above: Performed By: #### B MP, CBC, ADIFF, GFR, ANEU, MG #### [address] [address] Potassium [Moles/Vol] 3.7 mmol/L Normal 3.5-5.1 [facility] Comment on above: Performed By: #### B MP, CBC, ADIFF, GFR, ANEU, MG #### [address] [address] Sodium [Moles/Vol] 135 mmol/L Low 136-145 [facility] Comment on above: Performed By: #### B MP, CBC, ADIFF, GFR, ANEU, MG #### [address] [address] Urea nitrogen [Mass/Vol] 7 mg/dL Normal 7-18 [facility] Comment on above: Performed By: #### B MP, CBC, ADIFF, GFR, ANEU, MG #### [address] [address] CBCon 10-11-2024 Erythrocyte distribution width (RBC) [Ratio] 15.2 % Normal 11.5-15.5 [facility] Comment on above: Performed By: #### B MP, CBC, ADIFF, GFR, ANEU, MG #### [address] [address] Hematocrit (Bld) [Volume fraction] 30.7 % Low 40.0-52.0 [facility] Comment on above: Performed By: #### B MP, CBC, ADIFF, GFR, ANEU, MG #### [place] [id number] Hgb 10.4 G/dL Low 13.0-17.5 [facility] Comment on above: Performed By: #### B MP, CBC, ADIFF, GFR, ANEU, MG #### [address] [address] MCH (RBC) [Entitic mass] 35.1 pg High 27.0-33.0 [facility] Comment on above: Performed By: #### B MP, CBC, ADIFF, GFR, ANEU, MG #### [address] [address] MCHC 34.0 G/dL Normal 32.0-36.0 [facility] Comment on above: Performed By: #### B MP, CBC, ADIFF, GFR, ANEU, MG #### [address] [address] MCV (RBC) [Entitic vol] 103.2 fL High 81.0-100.0 [facility] Comment on above: Performed By: #### B MP, CBC, ADIFF, GFR, ANEU, MG #### [address] [address] Platelet 111 10 3/mcL Low 150-450 [facility] Comment on above: Performed By: #### B MP, CBC, ADIFF, GFR, ANEU, MG #### [address] [address] Platelet mean volume (Bld) [Entitic vol] 9.6 fL Normal 6.4-10.5 [facility] Comment on above: Performed By: #### B MP, CBC, ADIFF, GFR, ANEU, MG #### [place] [address] RBC 2.97 10 6/mcL Low 4.50-6.00 [facility] Comment on above: Performed By: #### B MP, CBC, ADIFF, GFR, ANEU, MG #### [place] [address] WBC 3.5 10 3/mcL Low 4.5-10.8 [facility] Comment on above: Performed By: #### B MP, CBC, ADIFF, GFR, ANEU, MG #### [place] [address] HFPon 10-11-2024 Bili Indirect 0.6 mg/dL Normal [facility] Comment on above: Performed By: #### B MP, CBC, ADIFF, GFR, ANEU, MG #### [place] [address] Albumin Level 2.0 G/dL Low 3.4-4.8 [facility] Comment on above: Performed By: #### B MP, CBC, ADIFF, GFR, ANEU, MG #### [place] [address] Albumin/Globulin [Mass ratio] 0.4 {ratio} Low 1.1-2.5 [facility] Comment on above: Performed By: #### B MP, CBC, ADIFF, GFR, ANEU, MG #### [place] [address] ALP [Catalytic activity/Vol] 144 U/L High 40-135 [facility] Comment on above: Performed By: #### B MP, CBC, ADIFF, GFR, ANEU, MG #### [place] [address] ALT [Catalytic activity/Vol] 56 U/L Normal 16-63 [facility] Comment on above: Performed By: #### B MP, CBC, ADIFF, GFR, ANEU, MG #### [place] [id number] AST [Catalytic activity/Vol] 303 U/L High 10-40 [facility] Comment on above: Performed By: #### B MP, CBC, ADIFF, GFR, ANEU, MG #### [place] [address] Bili Direct 2.6 mg/dL High 0.0-0.2 [facility] Comment on above: Result Comment: Use of this assay is not recommended for patients undergoing treatment with eltrombopag due to the potential for falsely elevated results. Performed By: #### B MP, CBC, ADIFF, GFR, ANEU, MG #### [place] [address] Bili Total 3.2 mg/dL High 0.2-1.0 [facility] Comment on above: Result Comment: Use of this assay is not recommended for patients undergoing treatment with eltrombopag due to the potential for falsely elevated results. Performed By: #### B MP, CBC, ADIFF, GFR, ANEU, MG #### [place] [address] Globulin 4.5 G/dL High 1.5-3.8 [facility] Comment on above: Performed By: #### B MP, CBC, ADIFF, GFR, ANEU, MG #### [place] [address] Total Protein 6.5 G/dL Normal 6.4-8.2 [facility] Comment on above: Performed By: #### B MP, CBC, ADIFF, GFR, ANEU, MG #### [place] [address] LABORATORYOrdered By: Elliott Vitale on 10-11-2024 CO2 [Moles/Vol] 26.8 mmol/L Normal 22.0 - 30.0 mmol/L AO Rapid Comm SS HCO3 (Bld) [Moles/Vol] 25.8 mmol/L Normal 21.0 - 29.0 mmol/L AO Rapid Comm SS Oxygen (Bld) [Partial pressure] 58.4 mm[Hg] Low 74.0 - 108.0 mm Hg AO Rapid Comm SS pCO2 33.4 mm[Hg] Normal 32.0 - 46.0 mm Hg AO Rapid Comm SS pH (Bld) 7.506 [pH] High 7.380 - 7.460 AO Rapid Comm SS Sodium [Moles/Vol] 3.0 mmol/L Invalid Interpretation Code AO Rapid Comm SS LABORATORYOrdered By: SYSTEM SYSTEM on 10-11-2024 Albumin BCP dye [Mass/Vol] 2.0 G/dL Low 3.4 - 4.8 G/dL AO ADM SS Albumin/Globulin [Mass ratio] 0.4 {ratio} Low 1.1 - 2.5 ratio AO ADM SS ALP [Catalytic activity/Vol] 144 U/L High 40 - 135 U/L AO ADM SS ALT With P-5'-P [Catalytic activity/Vol] 56 U/L Normal 16 - 63 U/L AO ADM SS Ammonia (P) [Moles/Vol] 12 umol/L Normal 11 - 32 umol/L AO ADM SS AST With P-5'-P [Catalytic activity/Vol] 303 U/L High 10 - 40 U/L AO ADM SS Basophils (Bld) [#/Vol] 0.0 103/mcL Normal 0.0 - 0.2 10^3/mcL AO Workflow SS Basophils/100 WBC (Bld) 0.6 % Normal 0.0 - 2.5 % AO Workflow SS Bilirubin [Mass/Vol] 3.2 mg/dL High 0.2 - 1 .0 mg/dL AO ADM SS Comment on above: Interpretive Data: U se of this assay is not recommended for patients undergoing treatment with eltrombopag due to the potential for falsely elevated results. Bilirubin.direct [Mass/Vol] 2.6 mg/dL High 0.0 - 0.2 mg/dL AO ADM SS Comment on above: Interpretive Data: U se of this assay is not recommended for patients undergoing treatment with eltrombopag due to the potential for falsely elevated results. Bilirubin.direct [Mass/Vol] 0.6 mg/dL Invalid Interpretation Code AO Chemistry S Calcium [Mass/Vol] 8.3 mg/dL Low 8.4 - 10. 2 mg/dL AO ADM SS Chloride [Moles/Vol] 100 mmol/L Normal 98 - 10 7 mmol/L AO ADM SS CO2 [Moles/Vol] 28 mmol/L Normal 23 - 31 mmol/L AO ADM SS Creatinine [Mass/Vol] 0.67 mg/dL Low 0.70 - 1.30 mg/dL AO ADM SS Comment on above: Interpretive Data: T esting performed on Siemens Dimension EXL analyzer using a modified kinetic Tri technique. Electrolyte Balance 7.0 mEq/L Normal 4.0 - 15 .0 mEq/L AO ADM SS Eosinophil, Absolute 0.0 103/mcL Normal 0.0 - 0 .7 10^3/mcL AO Workflow SS Eosinophils/100 WBC (Bld) 0.4 % Normal 0.0 - 7.0 % AO Workflow SS Erythrocyte distribution width (RBC) [Ratio] 15.2 % Normal 11.5 - 15.5 % AO Workflow SS Estimated Glomerular Filtration Rate 104 ml/min/1.73sqm Invalid Interpretation Code AO Chemistry S Comment on above: Interpretive Data: Stages of Chronic Kidney Disease (CKD) Stage Description eGFR(ml/min/1.73 sq.m.) CKD 1 Normal kidney function or >=90 normal kindney function with possible kidney damage (ex. Proteinuria) CKD 2 Kidney damage with mild loss 60-89 of kidney function CKD 3a Mild to moderate loss of kidney 45-59 function CKD 3b Moderate to severe loss of 30-44 of kindey function CKD 4 Severe loss of kidney function 15-29 CKD 5 Kidney failure <15 Note: (go live 2024) the eGFR calculation was updated to the 2020 CKD-EPI creatinine equation without a race factor to calculate the eGFR results. Globulin 4.5 G/dL High 1.5 - 3.8 G/dL AO ADM SS Glucose [Mass/Vol] 80 mg/dL Normal 80 - 115 mg/dL AO ADM SS Hematocrit (Bld) [Volume fraction] 30.7 % Low 40.0 - 52.0 % AO Workflow SS Hemoglobin (Bld) [Mass/Vol] 10.4 G/dL Low 13.0 - 17.5 G/dL AO Workflow SS INR Coag (PPP) [Relative time] 1.2 {INR} Invalid Interpretation Code AO [facility] SS Comment on above: Interpretive Data: Paul isbell [employer] (CHEST, 1991, 102:312S-25S) recommended therapeutic range for oral anticoagulant therapy is: LOW RISK: Prophylaxis of venous thrombosis INR: 2.0-3.0 Treatment of pulmonary embolism 2.0-3.0 Prevention of systemic embolism 2.0-3.0 HIGH RISK: Mechanical prosthetic valves 2.5-3.5 Lymphocytes (Bld) [#/Vol] 0.8 103/mcL Low 0.9 - 4.3 10^3/mcL AO Workflow SS Lymphocytes/100 WBC (Bld) 21.7 % Normal 20.0 - 40.0 % AO Workflow SS Magnesium [Mass/Vol] 1.6 mg/dL Low 1.8 - 2 .4 mg/dL AO ADM SS MCH (RBC) [Entitic mass] 35.1 pg High 27.0 - 33.0 pg AO Workflow SS MCHC 34.0 G/dL Normal 32.0 - 36.0 G/dL AO Workflow SS MCV (RBC) [Entitic vol] 103.2 fL High 81.0 - 100.0 fL AO Workflow SS Monocytes (Bld) [#/Vol] 0.3 103/mcL Normal 0.1 - 1.4 10^3/mcL AO Workflow SS Monocytes/100 WBC (Bld) 7.8 % Normal 2.0 - 13.0 % AO Workflow SS Neutrophils (Bld) [#/Vol] 2.5 103/mcL Normal 2.3 - 8.1 10^3/mcL AO Workflow SS Neutrophils/100 WBC (Bld) 69.5 % Normal 50.0 - 75.0 % AO Workflow SS Platelet mean volume (Bld) [Entitic vol] 9.6 fL Normal 6.4 - 10.5 fL AO Workflow SS Platelets (Bld) [#/Vol] 111 103/mcL Low 150 - 450 10^3/mcL AO Workflow SS Potassium [Moles/Vol] 3.7 mmol/L Normal 3.5 - 5.1 mmol/L AO ADM SS Protein [Mass/Vol] 6.5 G/dL Normal 6.4 - 8.2 G/dL AO ADM SS PT Coag (PPP) [Time] 14.4 s Normal 9.0 - 1 4.4 seconds AO [facility] SS RBC (Bld) [#/Vol] 2.97 106/mcL Low 4.50 - 6.00 10^6/mcL AO Workflow SS Sodium [Moles/Vol] 135 mmol/L Low 136 - 145 mmol/L AO ADM SS Urea nitrogen [Mass/Vol] 7 mg/dL Normal 7 - 18 mg/dL AO ADM SS Urea nitrogen/Creatinine [Mass ratio] 10 ratio Normal 7 - 27 ratio AO ADM SS WBC (Bld) [#/Vol] 3.5 103/mcL Low 4.5 - 10.8 10^3/mcL AO Workflow SS MGon 10-11-2024 Magnesium [Mass/Vol] 1.6 mg/dL Low 1.8-2.4 [facility] Comment on above: Performed By: #### B MP, CBC, ADIFF, GFR, ANEU, MG #### [address] [address] PROon 10-11-2024 PT Coag (PPP) [Time] 14.4 s Normal 9.0-14.4 [facility] Comment on above: Performed By: #### B MP, CBC, ADIFF, GFR, ANEU, MG #### [address] [address] PT International Ratio 1.2 Normal [facility] Comment on above: Result Comment: [employer] (CHEST, 1992, 102:312S-25S) recommended therapeutic range for oral anticoagulant therapy is: LOW RISK: Prophylaxis of venous thrombosis INR: 2.0-3.0 Treatment of pulmonary embolism 2.0-3.0 Prevention of systemic embolism 2.0-3.0 HIGH RISK: Mechanical prosthetic valves 2.5-3.5 Performed By: #### B MP, CBC, ADIFF, GFR, ANEU, MG #### [address] [address] .Auto Diffon 10-10-2024 Basophil, Absolute 0.0 10 3/mcL Normal 0.0-0.2 [facility] Comment on above: Performed By: #### B MP, CBC, ADIFF, GFR, ANEU, MG #### [address] [address] Basophils/100 WBC (Bld) 0.9 % Normal 0.0-2.5 [facility] Comment on above: Performed By: #### B MP, CBC, ADIFF, GFR, ANEU, MG #### [address] [address] Eosinophil, Absolute 0.0 10 3/mcL Normal 0.0-0.7 [facility] Comment on above: Performed By: #### B MP, CBC, ADIFF, GFR, ANEU, MG #### [address] [address] Eosinophils/100 WBC (Bld) 0.2 % Normal 0.0-7.0 [facility] Comment on above: Performed By: #### B MP, CBC, ADIFF, GFR, ANEU, MG #### [address] [address] Lymphocyte, Absolute 0.8 10 3/mcL Low 0.9-4.3 [facility] Comment on above: Performed By: #### B MP, CBC, ADIFF, GFR, ANEU, MG #### [address] [address] Lymphocytes/100 WBC (Bld) 23.8 % Normal 20.0-40.0 [facility] Comment on above: Performed By: #### B MP, CBC, ADIFF, GFR, ANEU, MG #### [address] [address] Monocyte, Absolute 0.3 10 3/mcL Normal 0.1-1.4 [facility] Comment on above: Performed By: #### B MP, CBC, ADIFF, GFR, ANEU, MG #### [address] [address] Monocytes/100 WBC (Bld) 7.8 % Normal 2.0-13.0 [facility] Comment on above: Performed By: #### B MP, CBC, ADIFF, GFR, ANEU, MG #### [address] [address] Neutrophils/100 WBC (Bld) 67.3 % Normal 50.0-75.0 [facility] Comment on above: Performed By: #### B MP, CBC, ADIFF, GFR, ANEU, MG #### [address] [address] .GFRon 10-10-2024 Estimated Glomerular Filtration Rate 104 ml/min/1.73sqm Normal [facility] Comment on above: Result Comment: Stages of Chronic Kidney Disease (CKD) Stage Description eGFR(ml/min/1.73 sq.m.) CKD 1 Normal kidney function or >=90 normal kindney function with possible kidney damage (ex. Proteinuria) CKD 2 Kidney damage with mild loss 60-89 of kidney function CKD 3a Mild to moderate loss of kidney 45-59 function CKD 3b Moderate to severe loss of 30-44 of kindey function CKD 4 Severe loss of kidney function 15-29 CKD 5 Kidney failure <15 Note: (go live 2024) the eGFR calculation was updated to the 2020 CKD-EPI creatinine equation without a race factor to calculate the eGFR results. Performed By: #### B MP, CBC, ADIFF, GFR, ANEU, MG #### [place] [address] .Morphon 10-10-2024 Anisocytosis Ql (Bld) 1+ Normal [facility] Comment on above: Performed By: #### B MP, CBC, ADIFF, GFR, ANEU, MG #### [place] [address] Macrocytosis 1+ Normal [facility] Comment on above: Performed By: #### B MP, CBC, ADIFF, GFR, ANEU, MG #### [place] [address] Platelet Estimate Decreased Normal [facility] Comment on above: Performed By: #### B MP, CBC, ADIFF, GFR, ANEU, MG #### [place] [address] Target Cell 1+ Normal [facility] Comment on above: Performed By: #### B MP, CBC, ADIFF, GFR, ANEU, MG #### [place] [address] .NEUABSon 10-10-2024 Neutrophil, Absolute 2.3 10 3/mcL Normal 2.3-8.1 [facility] Comment on above: Performed By: #### B MP, CBC, ADIFF, GFR, ANEU, MG #### [address] [address] Noemí 10-10-2024 Ammonia (P) [Moles/Vol] 17 umol/L Normal 11-32 [facility] Comment on above: Performed By: #### U AMICAO, UA #### [address] [address] BMPon 10-10-2024 BUN/Creatinine Ratio 9 ratio Normal 7-27 [facility] Comment on above: Performed By: #### B MP, CBC, ADIFF, GFR, ANEU, MG #### [place] [address] Calcium [Mass/Vol] 8.4 mg/dL Normal 8.4-10.2 [facility] Comment on above: Performed By: #### B MP, CBC, ADIFF, GFR, ANEU, MG #### [place] [address] Chloride [Moles/Vol] 101 mmol/L Normal 98-107 [facility] Comment on above: Performed By: #### B MP, CBC, ADIFF, GFR, ANEU, MG #### [address] [address] CO2 [Moles/Vol] 29 mmol/L Normal 23-31 [facility] Comment on above: Performed By: #### B MP, CBC, ADIFF, GFR, ANEU, MG #### [address] [address] Creatinine [Mass/Vol] 0.67 mg/dL Low 0.70-1.30 [facility] Comment on above: Result Comment: Test ing performed on Siemens Dimension EXL analyzer using a modified kinetic Tri technique. Performed By: #### B MP, CBC, ADIFF, GFR, ANEU, MG #### [place] [address] Electrolyte Balance 8.0 mEq/L Normal 4.0-15.0 [facility] Comment on above: Performed By: #### B MP, CBC, ADIFF, GFR, ANEU, MG #### [address] [address] Glucose [Mass/Vol] 79 mg/dL Low 80-115 [facility] Comment on above: Performed By: #### B MP, CBC, ADIFF, GFR, ANEU, MG #### [place] [id number] Potassium [Moles/Vol] 2.8 mmol/L Low 3.5-5.1 [facility] Comment on above: Performed By: #### B MP, CBC, ADIFF, GFR, ANEU, MG #### [place] [address] Sodium [Moles/Vol] 138 mmol/L Normal 136-145 [facility] Comment on above: Performed By: #### B MP, CBC, ADIFF, GFR, ANEU, MG #### [place] [address] Urea nitrogen [Mass/Vol] 6 mg/dL Low 7-18 [facility] Comment on above: Performed By: #### B MP, CBC, ADIFF, GFR, ANEU, MG #### [place] [id number] CBCon 10-10-2024 Erythrocyte distribution width (RBC) [Ratio] 15.4 % Normal 11.5-15.5 [facility] Comment on above: Performed By: #### B MP, CBC, ADIFF, GFR, ANEU, MG #### [address] [address] Hematocrit (Bld) [Volume fraction] 28.2 % Low 40.0-52.0 [facility] Comment on above: Performed By: #### B MP, CBC, ADIFF, GFR, ANEU, MG #### [place] [address] Hgb 9.5 G/dL Low 13.0-17.5 [facility] Comment on above: Performed By: #### B MP, CBC, ADIFF, GFR, ANEU, MG #### [address] [address] MCH (RBC) [Entitic mass] 34.9 pg High 27.0-33.0 [facility] Comment on above: Performed By: #### B MP, CBC, ADIFF, GFR, ANEU, MG #### [place] [address] MCHC 33.5 G/dL Normal 32.0-36.0 [facility] Comment on above: Performed By: #### B MP, CBC, ADIFF, GFR, ANEU, MG #### [place] [address] MCV (RBC) [Entitic vol] 104.3 fL High 81.0-100.0 [facility] Comment on above: Performed By: #### B MP, CBC, ADIFF, GFR, ANEU, MG #### [place] [address] Platelet 96 10 3/mcL Low 150-450 [facility] Comment on above: Performed By: #### B MP, CBC, ADIFF, GFR, ANEU, MG #### [place] [address] Platelet mean volume (Bld) [Entitic vol] 10.1 fL Normal 6.4-10.5 [facility] Comment on above: Performed By: #### B MP, CBC, ADIFF, GFR, ANEU, MG #### [place] [address] RBC 2.71 10 6/mcL Low 4.50-6.00 [facility] Comment on above: Performed By: #### B MP, CBC, ADIFF, GFR, ANEU, MG #### [place] [address] WBC 3.4 10 3/mcL Low 4.5-10.8 [facility] Comment on above: Performed By: #### B MP, CBC, ADIFF, GFR, ANEU, MG #### [address] [address] [address] HEAD OR BRAIN W/O CONTRAS Ton 10-10-2024 CT HEAD OR BRAIN W/O CONTRAST ORIGINAL EXAMINATION: CT HEAD TECHNIQUE: Axial CT images from skull base to vertex without IV contrast. This exam was performed according to our departmental dose optimization program, and includes the following measures where applicable: automated exposure control, adjustment of the mAs and/or kVp according to patient size and/or exam, and an iterative reconstruction algorithm. COMPARISON: CT head 10/08/2024 HISTORY: ORDERING SYSTEM PROVIDED HISTORY: Reason for Exam: altered mental status FINDINGS: Parenchyma: No acute intracranial hemorrhage, midline shift, mass effect or acute ischemic infarct is demonstrated. The winters-white matter junctions are preserved. No space occupying intra-axial masses or extra-axial fluid collections are seen. Mild parenchymal volume loss is noted. Scattered areas of decreased attenuation are identified in the subcortical, periventricular, and deep white matter statistically reflecting mild chronic microvascular white matter ischemic disease. Ventricles: Proportionally prominent ventricular to sulcal size on the basis of parenchymal volume loss. Vessels: Atherosclerotic calcifications of the left ICA siphon. Orbits: Unremarkable. Post bilateral lens implant surgery. Calvarium: No acute osseous pathology. Redemonstrated thinning of the right parietal bone. Paranasal sinuses: Bilateral maxillary sinus retention cysts. Trace mucosal thickening of the bilateral ethmoid sinuses. Mastoid sinuses: Clear. IMPRESSION: 1. No acute intracranial pathology. 2. Mild parenchymal volume loss and chronic microvascular white matter ischemic disease. Interpreted by: Jenifer Rogers MD Preliminary Report By: Jenifer Rogers MD Electronically signed By Jenifer Rogers MD Dictated Date: 10/10/2024 4:29:14 PM Prelim Date: 10/10/2024 4:34:44 PM Sign Date: 10/10/2024 4:34:44 PM Ordering Provider: CINDY BAILEY Normal [facility] HFPon 10-10-2024 Bili Indirect 0.4 mg/dL Normal [facility] Comment on above: Performed By: #### B MP, CBC, ADIFF, GFR, ANEU, MG #### [address] [address] Albumin Level 2.0 G/dL Low 3.4-4.8 [facility] Comment on above: Performed By: #### B MP, CBC, ADIFF, GFR, ANEU, MG #### [place] [address] Albumin/Globulin [Mass ratio] 0.5 {ratio} Low 1.1-2.5 [facility] Comment on above: Performed By: #### B MP, CBC, ADIFF, GFR, ANEU, MG #### [place] [address] ALP [Catalytic activity/Vol] 116 U/L Normal 40-135 [facility] Comment on above: Performed By: #### B MP, CBC, ADIFF, GFR, ANEU, MG #### [place] [address] ALT [Catalytic activity/Vol] 52 U/L Normal 16-63 [facility] Comment on above: Performed By: #### B MP, CBC, ADIFF, GFR, ANEU, MG #### [place] [address] AST [Catalytic activity/Vol] 270 U/L High 10-40 [facility] Comment on above: Performed By: #### B MP, CBC, ADIFF, GFR, ANEU, MG #### [place] [address] Bili Direct 2.5 mg/dL High 0.0-0.2 [facility] Comment on above: Result Comment: Use of this assay is not recommended for patients undergoing treatment with eltrombopag due to the potential for falsely elevated results. Performed By: #### B MP, CBC, ADIFF, GFR, ANEU, MG #### [place] [address] Bili Total 2.9 mg/dL High 0.2-1.0 [facility] Comment on above: Result Comment: Use of this assay is not recommended for patients undergoing treatment with eltrombopag due to the potential for falsely elevated results. Performed By: #### B MP, CBC, ADIFF, GFR, ANEU, MG #### [place] [address] Globulin 4.0 G/dL High 1.5-3.8 [facility] Comment on above: Performed By: #### B MP, CBC, ADIFF, GFR, ANEU, MG #### [place] [address] [place], [place] [address] Total Protein 6.0 G/dL Low 6.4-8.2 [facility] Comment on above: Performed By: #### B MP, CBC, ADIFF, GFR, ANEU, MG #### [place] [address] [place], [place] [address] LABORATORYOrdered By: SYSTEM SYSTEM on 10-10-2024 Ammonia (P) [Moles/Vol] 17 umol/L Normal 11 - 32 umol/L AO ADM SS Basophils (Bld) [#/Vol] 0.0 103/mcL Normal 0.0 - 0.2 10^3/mcL AO Workflow SS Basophils/100 WBC (Bld) 0.9 % Normal 0.0 - 2.5 % AO Workflow SS Eosinophil, Absolute 0.0 103/mcL Normal 0.0 - 0 .7 10^3/mcL AO Workflow SS Eosinophils/100 WBC (Bld) 0.2 % Normal 0.0 - 7.0 % AO Workflow SS Erythrocyte distribution width (RBC) [Ratio] 15.4 % Normal 11.5 - 15.5 % AO Workflow SS Hematocrit (Bld) [Volume fraction] 28.2 % Low 40.0 - 52.0 % AO Workflow SS Hemoglobin (Bld) [Mass/Vol] 9.5 G/dL Low 13.0 - 17.5 G/dL AO Workflow SS Lymphocytes (Bld) [#/Vol] 0.8 103/mcL Low 0.9 - 4.3 10^3/mcL AO Workflow SS Lymphocytes/100 WBC (Bld) 23.8 % Normal 20.0 - 40.0 % AO Workflow SS MCH (RBC) [Entitic mass] 34.9 pg High 27.0 - 33.0 pg AO Workflow SS MCHC 33.5 G/dL Normal 32.0 - 36.0 G/dL AO Workflow SS MCV (RBC) [Entitic vol] 104.3 fL High 81.0 - 100.0 fL AO Workflow SS Monocytes (Bld) [#/Vol] 0.3 103/mcL Normal 0.1 - 1.4 10^3/mcL AO Workflow SS Monocytes/100 WBC (Bld) 7.8 % Normal 2.0 - 13.0 % AO Workflow SS Neutrophils (Bld) [#/Vol] 2.3 103/mcL Normal 2.3 - 8.1 10^3/mcL AO Workflow SS Neutrophils/100 WBC (Bld) 67.3 % Normal 50.0 - 75.0 % AO Workflow SS Platelet mean volume (Bld) [Entitic vol] 10.1 fL Normal 6.4 - 10.5 fL AO Workflow SS Platelets (Bld) [#/Vol] 96 103/mcL Low 150 - 450 10^3/mcL AO Workflow SS RBC (Bld) [#/Vol] 2.71 106/mcL Low 4.50 - 6.00 10^6/mcL AO Workflow SS WBC (Bld) [#/Vol] 3.4 103/mcL Low 4.5 - 10.8 10^3/mcL AO Workflow SS LABORATORYOrdered By: Beatriz Lee on 10-10-2024 Anisocytosis Ql (Bld) 1+ (10/10/24 5:31 AM) Normal AO Hematology S Macrocytes Ql (Bld) 1+ (10/10/24 5:31 AM) Normal [facility]emat[facility] S Platelets LM Ql (Bld) Decreased (10/10/24 5:31 AM) Normal AO [facility]emat[facility] S Target cells LM Ql (Bld) 1+ (10/10/24 5:31 AM) Normal AO Hematology S MGon 10-10-2024 Magnesium [Mass/Vol] 1.5 mg/dL Low 1.8-2.4 [facility] Comment on above: Performed By: #### B MP, CBC, ADIFF, GFR, ANEU, MG #### [place] [address] [place], [place] [address] RESCVIDon 10-10-2024 Adenovirus Not detected Normal Not Detected [facility] Comment on above: Performed By: #### R ESCVID #### [facility] [address] [place] [address] Bordetella Parapertussis Not detected Normal Not Detected [facility] Comment on above: Performed By: #### R ESCVID #### [facility] [address] [place] [address] Bordetella Pertussis Not detected Normal Not Detected [facility] Comment on above: Performed By: #### R ESCVID #### [facility] [address] [place] [address] Chlamydophila pneumoniae Not detected Normal Not Detected [facility] Comment on above: Performed By: #### R ESCVID #### [facility] [address] [place] [address] Coronavirus 229E (Not COVID-19) Not detected Normal Not Detected [facility] Comment on above: Performed By: #### R ESCVID #### [facility] [address] [place], [place] [phone] Coronavirus HKU1 (Not COVID-19) Not detected Normal Not Detected [facility] Comment on above: Performed By: #### R ESCVID #### [facility] [address] [place], [place] [phone] Coronavirus NL63 (Not COVID-19) Not detected Normal Not Detected [facility] Comment on above: Performed By: #### R ESCVID #### [facility] [address] [place], [place] [phone] Coronavirus OC43 (Not COVID-19) Not detected Normal Not Detected [facility] Comment on above: Performed By: #### R ESCVID #### [facility] [address] [place] [address] Human Metapneumovirus Not detected Normal Not Detected [facility] Comment on above: Performed By: #### R ESCVID #### [facility] [address] [place] [address] Influenza A H1-2009 Detected Abnormal Not Detected [facility] Comment on above: Performed By: #### R ESCVID #### [facility] [address] [place] [address] Influenza B Not detected Normal Not Detected [facility] Comment on above: Performed By: #### R ESCVID #### [facility] [address] [place], [place] [phone] Mycoplasma pneumoniae Not detected Normal Not Detected [facility] Comment on above: Performed By: #### R ESCVID #### [facility] [address] [place] [address] Parainfluenza 1 Not detected Normal Not Detected [facility] Comment on above: Performed By: #### R ESCVID #### [facility] [address] [place], [place] [phone] Parainfluenza 2 Not detected Normal Not Detected [facility] Comment on above: Performed By: #### R ESCVID #### [facility] [address] [place] [address] Parainfluenza 3 Not detected Normal Not Detected [facility] Comment on above: Performed By: #### R ESCVID #### [facility] [address] [place] [address] Parainfluenza 4 Not detected Normal Not Detected [facility] Comment on above: Performed By: #### R ESCVID #### [place] [address] Respiratory Syncytial Virus Not detected Normal Not Detected [facility] Comment on above: Performed By: #### R ESCVID #### [place] [address] Rhinovirus/Enterovirus Not detected Normal Not Detected [facility] Comment on above: Performed By: #### R ESCVID #### [place] [address] SARS-CoV-2 (COVID-19) RNA VIVIANE+probe Ql (Unsp spec) Not detected Normal Not Detected [facility] Comment on above: Result Comment: This assay has been validated in the [facility] for use with nasopharyngeal specimens in [facility]. If a non-validated specimen or test collection method was used, please interpret the results with caution, especially if the test result is negative. A positive test result for COVID-19 indicates that RNA from SARS-CoV-2 was detected, and the patient is infected with the virus and presumed to be contagious. Laboratory test results should always be considered in the context of clinical observations and epidemiological data in making a final diagnosis and patient management decisions. Patient management should follow current CDC guidelines. A negative test result for this test means that SARS-CoV-2 RNA was not present in the specimen above the limit of detection. However, a negative result does not rule out COVID-19 and should not be used as the sole basis for treatment or patient management decisions. A negative result does not exclude the possibility of COVID-19. When diagnostic testing is negative, the possibility of a false negative result should be considered in the context of a patient's recent exposures and the presence of clinical signs and symptoms consistent with COVID-19. The possibility of a false negative result should especially be considered if the patient???s recent exposures or clinical presentation indicate that COVID-19 is likely, and diagnostic tests for other causes of illness (e.g., other respiratory illness) are negative. If COVID-19 is still suspected based on exposure history together with other clinical findings, re-testing should be considered by healthcare providers in consultation with public health authorities. Performed By: #### R ESCVID #### [address] [address] .Auto Diffon 10-09-2024 Basophil, Absolute 0.0 10 3/mcL Normal 0.0-0.2 [facility] Comment on above: Performed By: #### B MP, CBC, ADIFF, GFR, ANEU, MG #### [address] [address] Basophils/100 WBC (Bld) 1.1 % Normal 0.0-2.5 [facility] Comment on above: Performed By: #### B MP, CBC, ADIFF, GFR, ANEU, MG #### [address] [address] Eosinophil, Absolute 0.0 10 3/mcL Normal 0.0-0.7 [facility] Comment on above: Performed By: #### B MP, CBC, ADIFF, GFR, ANEU, MG #### [address] [address] Eosinophils/100 WBC (Bld) 0.1 % Normal 0.0-7.0 [facility] Comment on above: Performed By: #### B MP, CBC, ADIFF, GFR, ANEU, MG #### [address] [address] Lymphocyte, Absolute 0.5 10 3/mcL Low 0.9-4.3 [facility] Comment on above: Performed By: #### B MP, CBC, ADIFF, GFR, ANEU, MG #### [address] [address] Lymphocytes/100 WBC (Bld) 12.0 % Low 20.0-40.0 [facility] Comment on above: Performed By: #### B MP, CBC, ADIFF, GFR, ANEU, MG #### [address] [address] Monocyte, Absolute 0.4 10 3/mcL Normal 0.1-1.4 [facility] Comment on above: Performed By: #### B MP, CBC, ADIFF, GFR, ANEU, MG #### [address] [address] Monocytes/100 WBC (Bld) 11.3 % Normal 2.0-13.0 [facility] Comment on above: Performed By: #### B MP, CBC, ADIFF, GFR, ANEU, MG #### [address] [address] Neutrophils/100 WBC (Bld) 75.5 % High 50.0-75.0 [facility] Comment on above: Performed By: #### B MP, CBC, ADIFF, GFR, ANEU, MG #### [address] [address] .GFRon 10-09-2024 Estimated Glomerular Filtration Rate 105 ml/min/1.73sqm Normal [facility] Comment on above: Result Comment: Stages of Chronic Kidney Disease (CKD) Stage Description eGFR(ml/min/1.73 sq.m.) CKD 1 Normal kidney function or >=90 normal kindney function with possible kidney damage (ex. Proteinuria) CKD 2 Kidney damage with mild loss 60-89 of kidney function CKD 3a Mild to moderate loss of kidney 45-59 function CKD 3b Moderate to severe loss of 30-44 of kindey function CKD 4 Severe loss of kidney function 15-29 CKD 5 Kidney failure <15 Note: (go live 2024) the eGFR calculation was updated to the 2020 CKD-EPI creatinine equation without a race factor to calculate the eGFR results. Performed By: #### B MP, CBC, ADIFF, GFR, ANEU, MG #### [address] [address] .NEUABSon 10-09-2024 Neutrophil, Absolute 3.0 10 3/mcL Normal 2.3-8.1 [facility] Comment on above: Performed By: #### B MP, CBC, ADIFF, GFR, ANEU, MG #### [address] [address] BMPon 10-09-2024 BUN/Creatinine Ratio 8 ratio Normal 7-27 [facility] Comment on above: Performed By: #### B MP, CBC, ADIFF, GFR, ANEU, MG #### [address] [address] Calcium [Mass/Vol] 8.1 mg/dL Low 8.4-10.2 [facility] Comment on above: Performed By: #### B MP, CBC, ADIFF, GFR, ANEU, MG #### [address] [address] Chloride [Moles/Vol] 99 mmol/L Normal 98-107 [facility] Comment on above: Performed By: #### B MP, CBC, ADIFF, GFR, ANEU, MG #### [address] [address] CO2 [Moles/Vol] 26 mmol/L Normal 23-31 [facility] Comment on above: Performed By: #### B MP, CBC, ADIFF, GFR, ANEU, MG #### [address] [address] Creatinine [Mass/Vol] 0.65 mg/dL Low 0.70-1.30 [facility] Comment on above: Result Comment: Test ing performed on Siemens Dimension EXL analyzer using a modified kinetic Tri technique. Performed By: #### B MP, CBC, ADIFF, GFR, ANEU, MG #### [address] [address] Electrolyte Balance 9.0 mEq/L Normal 4.0-15.0 [facility] Comment on above: Performed By: #### B MP, CBC, ADIFF, GFR, ANEU, MG #### [address] [address] Glucose [Mass/Vol] 103 mg/dL Normal 80-115 [facility] Comment on above: Performed By: #### B MP, CBC, ADIFF, GFR, ANEU, MG #### [place] [address] Potassium [Moles/Vol] 3.0 mmol/L Low 3.5-5.1 [facility] Comment on above: Performed By: #### B MP, CBC, ADIFF, GFR, ANEU, MG #### [place] [address] Sodium [Moles/Vol] 134 mmol/L Low 136-145 [facility] Comment on above: Performed By: #### B MP, CBC, ADIFF, GFR, ANEU, MG #### [place] [address] Urea nitrogen [Mass/Vol] 5 mg/dL Low 7-18 [facility] Comment on above: Performed By: #### B MP, CBC, ADIFF, GFR, ANEU, MG #### [address] [address] CBCon 10-09-2024 Erythrocyte distribution width (RBC) [Ratio] 14.6 % Normal 11.5-15.5 [facility] Comment on above: Performed By: #### B MP, CBC, ADIFF, GFR, ANEU, MG #### [place] [address] Hematocrit (Bld) [Volume fraction] 24.8 % Low 40.0-52.0 [facility] Comment on above: Performed By: #### B MP, CBC, ADIFF, GFR, ANEU, MG #### [place] [id number] Hgb 9.0 G/dL Low 13.0-17.5 [facility] Comment on above: Performed By: #### B MP, CBC, ADIFF, GFR, ANEU, MG #### [address] [address] MCH (RBC) [Entitic mass] 36.7 pg High 27.0-33.0 [facility] Comment on above: Performed By: #### B MP, CBC, ADIFF, GFR, ANEU, MG #### [place] [address] MCHC 36.1 G/dL High 32.0-36.0 [facility] Comment on above: Performed By: #### B MP, CBC, ADIFF, GFR, ANEU, MG #### [place] [address] MCV (RBC) [Entitic vol] 101.7 fL High 81.0-100.0 [facility] Comment on above: Performed By: #### B MP, CBC, ADIFF, GFR, ANEU, MG #### [place] [address] Platelet 246 10 3/mcL Normal 150-450 [facility] Comment on above: Performed By: #### B MP, CBC, ADIFF, GFR, ANEU, MG #### [place] [address] Platelet mean volume (Bld) [Entitic vol] 8.9 fL Normal 6.4-10.5 [facility] Comment on above: Performed By: #### B MP, CBC, ADIFF, GFR, ANEU, MG #### [place] [address] RBC 2.44 10 6/mcL Low 4.50-6.00 [facility] Comment on above: Performed By: #### B MP, CBC, ADIFF, GFR, ANEU, MG #### [place] [address] WBC 4.0 10 3/mcL Low 4.5-10.8 [facility] Comment on above: Performed By: #### B MP, CBC, ADIFF, GFR, ANEU, MG #### [place] [address] [place], [place] [address] LABORATORYOrdered By: SYSTEM SYSTEM on 10-09-2024 Basophils (Bld) [#/Vol] 0.0 103/mcL Normal 0.0 - 0.2 10^3/mcL AO Workflow SS Basophils/100 WBC (Bld) 1.1 % Normal 0.0 - 2.5 % AO Workflow SS Eosinophil, Absolute 0.0 103/mcL Normal 0.0 - 0 .7 10^3/mcL AO Workflow SS Eosinophils/100 WBC (Bld) 0.1 % Normal 0.0 - 7.0 % AO Workflow SS Erythrocyte distribution width (RBC) [Ratio] 14.6 % Normal 11.5 - 15.5 % AO Workflow SS Hematocrit (Bld) [Volume fraction] 24.8 % Low 40.0 - 52.0 % AO Workflow SS Hemoglobin (Bld) [Mass/Vol] 9.0 G/dL Low 13.0 - 17.5 G/dL AO Workflow SS Lymphocytes (Bld) [#/Vol] 0.5 103/mcL Low 0.9 - 4.3 10^3/mcL AO Workflow SS Lymphocytes/100 WBC (Bld) 12.0 % Low 20.0 - 40.0 % AO Workflow SS MCH (RBC) [Entitic mass] 36.7 pg High 27.0 - 33.0 pg AO Workflow SS MCHC 36.1 G/dL High 32.0 - 36.0 G/dL AO Workflow SS MCV (RBC) [Entitic vol] 101.7 fL High 81.0 - 100.0 fL AO Workflow SS Monocytes (Bld) [#/Vol] 0.4 103/mcL Normal 0.1 - 1.4 10^3/mcL AO Workflow SS Monocytes/100 WBC (Bld) 11.3 % Normal 2.0 - 13.0 % AO Workflow SS Neutrophils (Bld) [#/Vol] 3.0 103/mcL Normal 2.3 - 8.1 10^3/mcL AO Workflow SS Neutrophils/100 WBC (Bld) 75.5 % High 50.0 - 75.0 % AO Workflow SS Platelet mean volume (Bld) [Entitic vol] 8.9 fL Normal 6.4 - 10.5 fL AO Workflow SS Platelets (Bld) [#/Vol] 246 103/mcL Normal 150 - 450 10^3/mcL AO Workflow SS RBC (Bld) [#/Vol] 2.44 106/mcL Low 4.50 - 6.00 10^6/mcL AO Workflow SS WBC (Bld) [#/Vol] 4.0 103/mcL Low 4.5 - 10.8 10^3/mcL AO Workflow SS MGon 10-09-2024 Magnesium [Mass/Vol] 1.6 mg/dL Low 1.8-2.4 [facility] Comment on above: Performed By: #### B MP, CBC, ADIFF, GFR, ANEU, MG #### [address] [address] .Auto Diffon 10-08-2024 Basophil, Absolute 0.1 10 3/mcL Normal 0.0-0.2 [facility] Comment on above: Performed By: #### B MP, CBC, ADIFF, GFR, ANEU, MG #### [address] [address] Basophils/100 WBC (Bld) 1.4 % Normal 0.0-2.5 [facility] Comment on above: Performed By: #### B MP, CBC, ADIFF, GFR, ANEU, MG #### [address] [address] Eosinophil, Absolute 0.0 10 3/mcL Normal 0.0-0.7 [facility] Comment on above: Performed By: #### B MP, CBC, ADIFF, GFR, ANEU, MG #### [address] [address] Eosinophils/100 WBC (Bld) 0.1 % Normal 0.0-7.0 [facility] Comment on above: Performed By: #### B MP, CBC, ADIFF, GFR, ANEU, MG #### [address] [address] Lymphocyte, Absolute 0.4 10 3/mcL Low 0.9-4.3 [facility] Comment on above: Performed By: #### B MP, CBC, ADIFF, GFR, ANEU, MG #### [address] [address] Lymphocytes/100 WBC (Bld) 8.2 % Low 20.0-40.0 [facility] Comment on above: Performed By: #### B MP, CBC, ADIFF, GFR, ANEU, MG #### [address] [address] Monocyte, Absolute 0.6 10 3/mcL Normal 0.1-1.4 [facility] Comment on above: Performed By: #### B MP, CBC, ADIFF, GFR, ANEU, MG #### [address] [address] Monocytes/100 WBC (Bld) 12.1 % Normal 2.0-13.0 [facility] Comment on above: Performed By: #### B MP, CBC, ADIFF, GFR, ANEU, MG #### [address] [address] Neutrophils/100 WBC (Bld) 78.2 % High 50.0-75.0 [facility] Comment on above: Performed By: #### B MP, CBC, ADIFF, GFR, ANEU, MG #### [address] [address] .GFRon 10-08-2024 Estimated Glomerular Filtration Rate 66 ml/min/1.73sqm Normal [facility] Comment on above: Result Comment: Stages of Chronic Kidney Disease (CKD) Stage Description eGFR(ml/min/1.73 sq.m.) CKD 1 Normal kidney function or >=90 normal kindney function with possible kidney damage (ex. Proteinuria) CKD 2 Kidney damage with mild loss 60-89 of kidney function CKD 3a Mild to moderate loss of kidney 45-59 function CKD 3b Moderate to severe loss of 30-44 of kindey function CKD 4 Severe loss of kidney function 15-29 CKD 5 Kidney failure <15 Note: (go live 2024) the eGFR calculation was updated to the 2020 CKD-EPI creatinine equation without a race factor to calculate the eGFR results. Performed By: #### B MP, CBC, ADIFF, GFR, ANEU, MG #### [place] [address] .MDWon 10-08-2024 Monocyte Distribution Width 24.76 High 0.00-20.00 [facility] Comment on above: Result Comment: For adults in ED, MDW>20.0 may be associated with a higher risk of sepsis during the first 12hrs of hospital admission Performed By: #### B MP, CBC, ADIFF, GFR, ANEU, MG #### [place] [address] .NEUABSon 10-08-2024 Neutrophil, Absolute 3.8 10 3/mcL Normal 2.3-8.1 [facility] Comment on above: Performed By: #### B MP, CBC, ADIFF, GFR, ANEU, MG #### [place] [address] .Urinalysis Microscopic (AO) on 10-08-2024 UA Coarse Granular Casts 0-5 Abnormal [facility] Comment on above: Performed By: #### B MP, CBC, ADIFF, GFR, ANEU, MG #### [place] [address] UA Hyal Cast 0-5 Abnormal [facility] Comment on above: Performed By: #### B MP, CBC, ADIFF, GFR, ANEU, MG #### [place] [address] UA Mucous 3+ /hpf Normal [facility] Comment on above: Performed By: #### B MP, CBC, ADIFF, GFR, ANEU, MG #### [place] [address] UA RBC 0-5 Abnormal None Seen [facility] Comment on above: Performed By: #### B MP, CBC, ADIFF, GFR, ANEU, MG #### [place] [address] UA Squam Epithelial 0-5 Abnormal None Seen [facility] Comment on above: Performed By: #### B MP, CBC, ADIFF, GFR, ANEU, MG #### [address] [address] UA WBC 15-25 Abnormal None Seen [facility] Comment on above: Performed By: #### B MP, CBC, ADIFF, GFR, ANEU, MG #### [address] [address] ACETAon 10-08-2024 Acetaminophen [Mass/Vol] 0.0 ug/mL Low 10.0-30.0 [facility] Comment on above: Performed By: #### S AL, ACETA, ALC #### [address] [address] Linda 10-08-2024 Ethanol Level <3 Normal [facility] Comment on above: Performed By: #### U SE UA #### [address] [address] Noemí 10-08-2024 Ammonia (P) [Moles/Vol] 20 umol/L Normal 11-32 [facility] Comment on above: Performed By: #### CARA MAYNARD #### [address] [address] APTTon 10-08-2024 aPTT Coag (Bld) [Time] 35.7 s High 25.0-35.0 [facility] Comment on above: Result Comment: For Heparin anticoagulation therapy, the recommended therapeutic range is: 45.4-75.9 seconds. Patients on heparin therapy may have an extreme result. Performed By: #### B MP, CBC, ADIFF, GFR, ANEU, MG #### [address] [address] CBCon 10-08-2024 Erythrocyte distribution width (RBC) [Ratio] 14.7 % Normal 11.5-15.5 [facility] Comment on above: Performed By: #### B MP, CBC, ADIFF, GFR, ANEU, MG #### [place] [id number] Hematocrit (Bld) [Volume fraction] 29.4 % Low 40.0-52.0 [facility] Comment on above: Performed By: #### B MP, CBC, ADIFF, GFR, ANEU, MG #### [place] [address] Hgb 10.2 G/dL Low 13.0-17.5 [facility] Comment on above: Performed By: #### B MP, CBC, ADIFF, GFR, ANEU, MG #### [place] [address] MCH (RBC) [Entitic mass] 35.5 pg High 27.0-33.0 [facility] Comment on above: Performed By: #### B MP, CBC, ADIFF, GFR, ANEU, MG #### [place] [address] MCHC 34.7 G/dL Normal 32.0-36.0 [facility] Comment on above: Performed By: #### B MP, CBC, ADIFF, GFR, ANEU, MG #### [place] [id number] MCV (RBC) [Entitic vol] 102.3 fL High 81.0-100.0 [facility] Comment on above: Performed By: #### B MP, CBC, ADIFF, GFR, ANEU, MG #### [place] [id number] Platelet 138 10 3/mcL Low 150-450 [facility] Comment on above: Performed By: #### B MP, CBC, ADIFF, GFR, ANEU, MG #### [place] [address] Platelet mean volume (Bld) [Entitic vol] 9.2 fL Normal 6.4-10.5 [facility] Comment on above: Performed By: #### B MP, CBC, ADIFF, GFR, ANEU, MG #### [place] [address] RBC 2.87 10 6/mcL Low 4.50-6.00 [facility] Comment on above: Performed By: #### B MP, CBC, ADIFF, GFR, ANEU, MG #### [address] [address] WBC 4.8 10 3/mcL Normal 4.5-10.8 [facility] Comment on above: Performed By: #### B MP, CBC, ADIFF, GFR, ANEU, MG #### [address] [address] CKon 10-08-2024 CK [Catalytic activity/Vol] 46 U/L Normal 39-308 [facility] Comment on above: Performed By: #### B MP, CBC, ADIFF, GFR, ANEU, MG #### [address] [address] CMPon 10-08-2024 Albumin Level 2.8 G/dL Low 3.4-4.8 [facility] Comment on above: Performed By: #### B MP, CBC, ADIFF, GFR, ANEU, MG #### [address] [address] Albumin/Globulin [Mass ratio] 0.6 {ratio} Low 1.1-2.5 [facility] Comment on above: Performed By: #### B MP, CBC, ADIFF, GFR, ANEU, MG #### [address] [address] ALP [Catalytic activity/Vol] 155 U/L High 40-135 [facility] Comment on above: Performed By: #### B MP, CBC, ADIFF, GFR, ANEU, MG #### [address] [address] ALT [Catalytic activity/Vol] 61 U/L Normal 16-63 [facility] Comment on above: Performed By: #### B MP, CBC, ADIFF, GFR, ANEU, MG #### [address] [address] AST [Catalytic activity/Vol] 266 U/L High 10-40 [facility] Comment on above: Performed By: #### B MP, CBC, ADIFF, GFR, ANEU, MG #### [address] [address] Bili Total 4.6 mg/dL High 0.2-1.0 [facility] Comment on above: Result Comment: Use of this assay is not recommended for patients undergoing treatment with eltrombopag due to the potential for falsely elevated results. Performed By: #### B MP, CBC, ADIFF, GFR, ANEU, MG #### [address] [address] BUN/Creatinine Ratio 5 ratio Low 7-27 [facility] Comment on above: Performed By: #### B MP, CBC, ADIFF, GFR, ANEU, MG #### [address] [address] Calcium [Mass/Vol] 8.9 mg/dL Normal 8.4-10.2 [facility] Comment on above: Performed By: #### B MP, CBC, ADIFF, GFR, ANEU, MG #### [address] [address] Chloride [Moles/Vol] 97 mmol/L Low 98-107 [facility] Comment on above: Performed By: #### B MP, CBC, ADIFF, GFR, ANEU, MG #### [address] [address] CO2 [Moles/Vol] 29 mmol/L Normal 23-31 [facility] Comment on above: Performed By: #### B MP, CBC, ADIFF, GFR, ANEU, MG #### [address] [address] Creatinine [Mass/Vol] 1.23 mg/dL Normal 0.70-1.30 [facility] Comment on above: Result Comment: Test ing performed on Siemens Dimension EXL analyzer using a modified kinetic Tri technique. Performed By: #### B MP, CBC, ADIFF, GFR, ANEU, MG #### [address] [place] [address] Electrolyte Balance 10.0 mEq/L Normal 4.0-15.0 [facility] Comment on above: Performed By: #### B MP, CBC, ADIFF, GFR, ANEU, MG #### [address] [address] Globulin 4.9 G/dL High 1.5-3.8 [facility] Comment on above: Performed By: #### B MP, CBC, ADIFF, GFR, ANEU, MG #### [address] [address] Glucose [Mass/Vol] 126 mg/dL High 80-115 [facility] Comment on above: Performed By: #### B MP, CBC, ADIFF, GFR, ANEU, MG #### [address] [address] Potassium [Moles/Vol] 3.2 mmol/L Low 3.5-5.1 [facility] Comment on above: Performed By: #### B MP, CBC, ADIFF, GFR, ANEU, MG #### [address] [address] Sodium [Moles/Vol] 136 mmol/L Normal 136-145 [facility] Comment on above: Performed By: #### B MP, CBC, ADIFF, GFR, ANEU, MG #### [address] [address] Total Protein 7.7 G/dL Normal 6.4-8.2 [facility] Comment on above: Performed By: #### B MP, CBC, ADIFF, GFR, ANEU, MG #### [address] [address] Urea nitrogen [Mass/Vol] 6 mg/dL Low 7-18 [facility] Comment on above: Performed By: #### B MP, CBC, ADIFF, GFR, ANEU, MG #### [address] [address] [address] HEAD OR BRAIN W/O CARMELOAS Teddy 10-08-2024 CT HEAD OR BRAIN W/O CONTRAST ORIGINAL EXAMINATION: CT OF THE HEAD WITHOUT CONTRAST 10/08/2024 3:31 pm TECHNIQUE: CT of the head was performed without the administration of intravenous contrast. Automated exposure control, iterative reconstruction, and/or weight based adjustment of the mA/kV was utilized to reduce the radiation dose to as low as reasonably achievable. COMPARISON: 11/01/2023 HISTORY: ORDERING SYSTEM PROVIDED HISTORY: Reason for Exam: ams FINDINGS: There is no acute intracranial hemorrhage, mass, mass effect or abnormal extra-axial fluid collection. There is no CT evidence of acute infarct. The density in the larger dural venous sinuses is grossly normal. The ventricles are normal. The skull base and calvarium demonstrate no abnormality. Small retention cysts/polyps seen in the maxillary sinuses. Included mastoid air cells are clear. IMPRESSION: No intracranial hemorrhage. No mass effect Interpreted by: Te Badillo MD Preliminary Report By: Te Badillo MD Electronically signed By Te Badillo MD Dictated Date: 10/08/2024 3:39:53 PM Prelim Date: 10/08/2024 3:42:37 PM Sign Date: 10/08/2024 3:42:37 PM Ordering Provider: TONG PIZARRO Normal [facility] CVFLURVon 10-08-2024 FLU A PCR Positive Abnormal Negative [facility] Comment on above: Performed By: #### R ESCVID #### [place] [address] FLU B PCR Negative Normal Negative [facility] Comment on above: Performed By: #### R ESCVID #### [place] [address] RSV PCR Negative Normal Negative [facility] Comment on above: Performed By: #### R ESCVID #### [place] [address] SARS-CoV-2 (COVID-19) RNA VIVIANE+probe Ql (Unsp spec) Negative Normal Negative [facility] Comment on above: Result Comment: Resu lts from the Xpert Xpress CoV-2/Flu/RSV plus test should be correlated with the clinical history, epidemiological data, and other data available to the clinical evaluating the patient. Performance of the Xpert Xpress CoV-2/Flu/RSV plus test has only been established in nasopharyngeal swab specimen. Erroneous test results might occur from improper specimen collection, failure to follow the recommended sample collection, handling and storage procedures, technical error, or sample mix-up. False negative results may occur if a virus is present at a level below the analytical limit of detection. Viral nucleic acid may persist in vivo, independent of virus viability. Detection of analyte target(s) does not imply that the corresponding virus(es) are infectious or are the causative agents for clinical symptoms. Recent patient exposure to FluMist or other live attenuated influenza vaccines may cause inaccurate positive results. Performed By: #### R ESCVID #### [place] [address] LABORATORYOrdered By: SYSTEM SYSTEM on 10-08-2024 Ammonia (P) [Moles/Vol] 20 umol/L Normal 11 - 32 umol/L AO ADM SS Lactate [Moles/Vol] 1.6 mmol/L Normal 0.4 - 2. 0 mmol/L AO ADM SS aPTT Coag (PPP) [Time] 35.7 s High 25.0 - 35.0 seconds AO [facility] SS Comment on above: Interpretive Data: F or Heparin anticoagulation therapy, the recommended therapeutic range is: 45.4-75.9 seconds. Patients on heparin therapy may have an extreme result. CK [Catalytic activity/Vol] 46 U/L Normal 39 - 308 U/L AO ADM SS INR Coag (PPP) [Relative time] 1.3 {INR} Invalid Interpretation Code AO [facility] SS Comment on above: Interpretive Data: Paul isbell [employer] (CHEST, 1992, [id number]) recommended therapeutic range for oral anticoagulant therapy is: LOW RISK: Prophylaxis of venous thrombosis INR: 2.0-3.0 Treatment of pulmonary embolism 2.0-3.0 Prevention of systemic embolism 2.0-3.0 HIGH RISK: Mechanical prosthetic valves 2.5-3.5 Lipase [Catalytic activity/Vol] 17 U/L Normal 16 - 77 U/L AO ADM SS Monocyte distribution width Auto (Bld) [Entitic vol] 24.76 1 High 0.00 - 20.00 AO Workflow SS Comment on above: Result Comment: For adults in ED, MDW>20.0 may be associated with a higher risk of sepsis during the first 12hrs of hospital admission Natriuretic peptide.B prohormone N-Terminal [Mass/Vol] 946 pg/mL High 0 - 125 pg/mL AO ADM SS Comment on above: Interpretive Data: N T-proBNP results of less than 300 pg/mL effectively rules out acute congestive heart failure with 99% negative predictive value. PT Coag (PPP) [Time] 15.4 s High 9.0 - 1 4.4 seconds AO [facility] SS Troponin I.cardiac DL <= 0.01 ng/mL [Mass/Vol] 12 ng/L Normal 0 - 76 ng/L AO ADM SS Comment on above: Interpretive Data: H igh Sensitive Troponin I Reference Ranges: Female: 0-51 ng/L Male: 0-76 ng/L Testing performed on [employer] using a homogeneous sandwich chemiluminescent immunoassay based on [employer] technology. TSH Qn 0.66 m[IU]/L Normal 0.36 - 3.74 mcIU/mL AO ADM SS LABORATORYOrdered By: Federica Campbell on 10-08-2024 Acetaminophen [Mass/Vol] 0.0 ug/mL Low 10.0 - 30.0 mcg/mL AO Chemistry S Ethanol [Mass/Vol] mg/dL Invalid Interpretation Code AO Chemistry S FLUAV RNA VIVIANE+probe Ql (Resp) Positive *ABN* (10/08/24 2:27 PM) Invalid Interpretation Code Negative AO Auto Urine SS FLUBV RNA VIVIANE+probe Ql (Resp) Negative (10/08/24 2:27 PM) Normal Negative AO Auto Urine SS RSV RNA VIVIANE+probe Ql (Resp) Negative (10/08/24 2:27 PM) Normal Negative AO Auto Urine SS Salicylates [Mass/Vol] mg/dL Low 2.8 - 20.0 mg/dL AO Chemistry S SARS-CoV-2 (COVID-19) RNA VIVIANE+probe Ql (Resp) Negative 22 (10/08/24 2:27 PM) Normal Negative AO Auto Urine SS Comment on above: Interpretive Data: R esults from the Xpert Xpress CoV-2/Flu/RSV plus test should be correlated with the clinical history, epidemiological data, and other data available to the clinical evaluating the patient. Performance of the Xpert Xpress CoV-2/Flu/RSV plus test has only been established in nasopharyngeal swab specimen. Erroneous test results might occur from improper specimen collection, failure to follow the recommended sample collection, handling and storage procedures, technical error, or sample mix-up. False negative results may occur if a virus is present at a level below the analytical limit of detection. Viral nucleic acid may persist in vivo, independent of virus viability. Detection of analyte target(s) does not imply that the corresponding virus(es) are infectious or are the causative agents for clinical symptoms. Recent patient exposure to FluMist or other live attenuated influenza vaccines may cause inaccurate positive results. Amphetamines Screen Ql (U) Negative *NA* (10/08/24 2:24 PM) Invalid Interpretation Code Negative AO ADM SS Barbiturates Screen Ql (U) Negative *NA* (10/08/24 2:24 PM) Invalid Interpretation Code Negative AO ADM SS Benzodiazepines Ql (U) Negative *NA* (10/08/24 2:24 PM) Invalid Interpretation Code Negative AO ADM SS Benzoylecgonine Screen Ql (U) Negative *NA* (10/08/24 2:24 PM) Invalid Interpretation Code Negative AO ADM SS Cannabinoids Screen Ql (U) Negative *NA* (10/08/24 2:24 PM) Invalid Interpretation Code Negative AO ADM SS Methadone Screen Ql (U) Negative *NA* (10/08/24 2:24 PM) Invalid Interpretation Code Negative AO ADM SS Opiates Screen Ql (U) Negative *NA* (10/08/24 2:24 PM) Invalid Interpretation Code Negative AO ADM SS Phencyclidine Ql (U) Negative *NA* (10/08/24 2:24 PM) Invalid Interpretation Code Negative AO ADM SS Urine Drugs screened: See Below 18 (10/08/24 2:24 PM) Normal AO Chemistry S Comment on above: Interpretive Data: T his drug screen is a presumptive screening only. No confirmation will be performed unless requested. Drugs screened include: Threshold Amphetamines/Methamphetamines 1,000 ng/mL Barbiturates 200 ng/mL Benzodiazepine metabolites 200 ng/mL Cannabinoids (THC metabolites) 50 ng/mL Cocaine 300 ng/mL Opiates 300 ng/mL Methadone 300 ng/mL Phencyclidine (PCP) 25 ng/mL Testing has been performed FOR MEDICAL PURPOSES ONLY. Appearance (U) Cloudy *ABN* (10/08/24 2:23 PM) Invalid Interpretation Code Clear AO Auto Urine SS Bilirubin Ql (U) Large 7 *ABN* (10/08/24 2:23 PM) Invalid Interpretation Code Negative AO Auto Urine SS Comment on above: Result Comment: Sugg est correlation with serum bilirubin and clinical findings if medically necessary. Color (U) Brown *ABN* (10/08/24 2:23 PM) Invalid Interpretation Code AO Auto Urine SS Glucose Test strip (U) [Mass/Vol] 100 mg/dL Invalid Interpretation Code Negative AO Auto Urine SS Hemoglobin Auto test strip (U) [Mass/Vol] Trace *ABN* (10/08/24 2:23 PM) Invalid Interpretation Code Negative AO Auto Urine SS Ketones Ql (U) 15 mg/dL Invalid Interpretation Code Negative AO Auto Urine SS UA Coarse Granular Casts 0-5 /LPF Invalid Interpretation Code AO Auto Urine SS UA Hyal Cast 0-5 /LPF Invalid Interpretation Code AO Auto Urine SS UA Leuk Est Negative (10/08/24 2:23 PM) Normal Negative AO Auto Urine SS UA Mucous 3+ /HPF Normal AO Auto Urine SS UA Nitrite Positive *ABN* (10/08/24 2:23 PM) Invalid Interpretation Code Negative AO Auto Urine SS UA pH 5.5 (10/08/24 2:23 PM) Normal 5.0 - 8.0 AO Auto Urine SS UA Protein >=300 mg/dL Invalid Interpretation Code Negative AO Auto Urine SS UA RBC 0-5 /HPF Invalid Interpretation Code None Seen AO Auto Urine SS UA Spec Grav 1.025 (10/08/24 2:23 PM) Normal 1.015-1.02 5 AO Auto Urine SS UA Specimen Type Clean Catch (10/08/24 2:23 PM) Normal AO Auto Urine SS UA Squam Epithelial 0-5 /HPF Invalid Interpretation Code None Seen AO Auto Urine SS UA Urobilinogen >=8.0 E.U./dL Invalid Interpretation Code 0.2-1.0 AO Auto Urine SS WBC LM.HPF (Urine sed) [#/Area] 15-25 /HPF Invalid Interpretation Code None Seen AO Auto Urine SS LABORATORYOrdered By: Hernan Chiu on 10-08-2024 Adenovirus DNA VIVIANE+non-probe Ql (Nph) Not Detected *NA* (10/08/24 2:27 PM) Invalid Interpretation Code Not Detected AH Auto Viro/Sero SS B. parapertussis [id number] DNA VIVIANE+non-probe Ql (Nph) Not Detected *NA* (10/08/24 2:27 PM) Invalid Interpretation Code Not Detected AH Auto Viro/Sero SS B. pertussis toxin promoter region VIVIANE+non-probe Ql (Nph) Not Detected *NA* (10/08/24 2:27 PM) Invalid Interpretation Code Not Detected AH Auto Viro/Sero SS C. pneumoniae DNA VIVIANE+non-probe Ql (Nph) Not Detected *NA* (10/08/24 2:27 PM) Invalid Interpretation Code Not Detected AH Auto Viro/Sero SS FLUAV H1 2009 pand RNA VIVIANE+non-probe Ql (Nph) Detected *ABN* (10/08/24 2:27 PM) Invalid Interpretation Code Not Detected AH Auto Viro/Sero SS FLUBV RNA VIVIANE+non-probe Ql (Nph) Not Detected *NA* (10/08/24 2:27 PM) Invalid Interpretation Code Not Detected AH Auto Viro/Sero SS hMPV RNA VIVIANE+non-probe Ql (Nph) Not Detected *NA* (10/08/24 2:27 PM) Invalid Interpretation Code Not Detected AH Auto Viro/Sero SS M. pneumoniae DNA VIVIANE+non-probe Ql (Nph) Not Detected *NA* (10/08/24 2:27 PM) Invalid Interpretation Code Not Detected AH Auto Viro/Sero SS Parainfluenza virus 1 RNA VIVIANE+non-probe Ql (Nph) Not Detected *NA* (10/08/24 2:27 PM) Invalid Interpretation Code Not Detected AH Auto Viro/Sero SS Parainfluenza virus 2 RNA VIVIANE+non-probe Ql (Nph) Not Detected *NA* (10/08/24 2:27 PM) Invalid Interpretation Code Not Detected AH Auto Viro/Sero SS Parainfluenza virus 3 RNA VIVIANE+non-probe Ql (Nph) Not Detected *NA* (10/08/24 2:27 PM) Invalid Interpretation Code Not Detected AH Auto Viro/Sero SS Parainfluenza virus 4 RNA VIVIANE+non-probe Ql (Nph) Not Detected *NA* (10/08/24 2:27 PM) Invalid Interpretation Code Not Detected AH Auto Viro/Sero SS Rhinovirus+Enterovirus RNA VIVIANE+non-probe Ql (Nph) Not Detected *NA* (10/08/24 2:27 PM) Invalid Interpretation Code Not Detected AH Auto Viro/Sero SS RSV RNA VIVIANE+non-probe Ql (Nph) Not Detected *NA* (10/08/24 2:27 PM) Invalid Interpretation Code Not Detected AH Auto Viro/Sero SS SARS-CoV-2 (COVID-19) RNA VIVIANE+probe Ql (Resp) Not Detected 6 *NA* (10/08/24 2:27 PM) Invalid Interpretation Code Not Detected AH Auto Viro/Sero SS Comment on above: Interpretive Data: T his assay has been validated in the [facility] for use with nasopharyngeal specimens in [facility]. If a non-validated specimen or test collection method was used, please interpret the results with caution, especially if the test result is negative. A positive test result for COVID-19 indicates that RNA from SARS-CoV-2 was detected, and the patient is infected with the virus and presumed to be contagious. Laboratory test results should always be considered in the context of clinical observations and epidemiological data in making a final diagnosis and patient management decisions. Patient management should follow current CDC guidelines. A negative test result for this test means that SARS-CoV-2 RNA was not present in the specimen above the limit of detection. However, a negative result does not rule out COVID-19 and should not be used as the sole basis for treatment or patient management decisions. A negative result does not exclude the possibility of COVID-19. When diagnostic testing is negative, the possibility of a false negative result should be considered in the context of a patient's recent exposures and the presence of clinical signs and symptoms consistent with COVID-19. The possibility of a false negative result should especially be considered if the patient s recent exposures or clinical presentation indicate that COVID-19 is likely, and diagnostic tests for other causes of illness (e.g., other respiratory illness) are negative. If COVID-19 is still suspected based on exposure history together with other clinical findings, re-testing should be considered by healthcare providers in consultation with public health authorities. LACon 10-08-2024 Lactic Acid Lvl 1.6 mmol/L Normal 0.4-2.0 [facility] Comment on above: Performed By: #### R ESCVID #### [place] [address] LIPon 10-08-2024 Lipase Level 17 U/L Normal 16-77 [facility] Comment on above: Performed By: #### B MP, CBC, ADIFF, GFR, ANEU, MG #### [address] [address] MGon 10-08-2024 Magnesium [Mass/Vol] 0.8 mg/dL Critically abnormal 1.8-2.4 [facility] Comment on above: Performed By: #### B MP, CBC, ADIFF, GFR, ANEU, MG #### [address] [address] No Panel Informationon 10-08 Culture Urine No growth at 48 hours. [facility] Work Phone: Microscopic examination of blood, culture Culture has been received in lab and is no growth to date. Routine cultures are held for 5 days. [facility] Work Phone: PBNPon 10-08-2024 Natriuretic peptide B (Bld) [Mass/Vol] 946 pg/mL High 0-125 [facility] Comment on above: Result Comment: NT-p roBNP results of less than 300 pg/mL effectively rules out acute congestive heart failure with 99% negative predictive value. Performed By: #### B MP, CBC, ADIFF, GFR, ANEU, MG #### [address] [address] PROon 10-08-2024 PT Coag (PPP) [Time] 15.4 s High 9.0-14.4 [facility] Comment on above: Performed By: #### B MP, CBC, ADIFF, GFR, ANEU, MG #### [address] [address] PT International Ratio 1.3 Normal [facility] Comment on above: Result Comment: The [employer] (CHEST, 1992, [id number]) recommended therapeutic range for oral anticoagulant therapy is: LOW RISK: Prophylaxis of venous thrombosis INR: 2.0-3.0 Treatment of pulmonary embolism 2.0-3.0 Prevention of systemic embolism 2.0-3.0 HIGH RISK: Mechanical prosthetic valves 2.5-3.5 Performed By: #### B MP, CBC, ADIFF, GFR, ANEU, MG #### [place] [address] SALon 10-08-2024 Salicylate Level <0.2 Low 2.8-20.0 [facility] Comment on above: Performed By: #### U AMICAO, UA #### [place] [address] TROPHSon 10-08-2024 High Sensitivity Troponin I 12 ng/L Normal 0-76 [facility] Comment on above: Result Comment: High Sensitive Troponin I Reference Ranges: Female: 0-51 ng/L Male: 0-76 ng/L Testing performed on [employer] using a homogeneous sandwich chemiluminescent immunoassay based on [employer] technology. Performed By: #### B MP, CBC, ADIFF, GFR, ANEU, MG #### [address] 10-08-2024 TSH Qn 0.66 m[IU]/L Normal 0.36-3.74 [facility] Comment on above: Performed By: #### B MP, CBC, ADIFF, GFR, ANEU, MG #### [address] 10-08-2024 Color (U) Brown Abnormal [facility] Comment on above: Performed By: #### B MP, CBC, ADIFF, GFR, ANEU, MG #### [place] [address] Glucose (U) [Mass/Vol] 100 mg/dL Abnormal Negative [facility] Comment on above: Performed By: #### B MP, CBC, ADIFF, GFR, ANEU, MG #### [place] [address] Ketones Ql (U) 15 mg/dL Abnormal Negative [facility] Comment on above: Performed By: #### B MP, CBC, ADIFF, GFR, ANEU, MG #### [address] Appear Cloudy Abnormal Clear [facility] Comment on above: Performed By: #### B MP, CBC, ADIFF, GFR, ANEU, MG #### [address] [address] UA Bili Large Abnormal Negative [facility] Comment on above: Result Comment: Sugg est correlation with serum bilirubin and clinical findings if medically necessary. Performed By: #### B MP, CBC, ADIFF, GFR, ANEU, MG #### [place] [address] UA Blood Trace Abnormal Negative [facility] Comment on above: Performed By: #### B MP, CBC, ADIFF, GFR, ANEU, MG #### [place] [address] UA Leuk Est Negative Normal Negative [facility] Comment on above: Performed By: #### B MP, CBC, ADIFF, GFR, ANEU, MG #### [place] [address] UA Nitrite Positive Abnormal Negative [facility] Comment on above: Performed By: #### B MP, CBC, ADIFF, GFR, ANEU, MG #### [place] [address] UA pH 5.5 Normal 5.0 - 8.0 [facility] Comment on above: Performed By: #### B MP, CBC, ADIFF, GFR, ANEU, MG #### [place] [address] UA Protein >=300 Abnormal Negative [facility] Comment on above: Performed By: #### B MP, CBC, ADIFF, GFR, ANEU, MG #### [place] [address] UA Spec Grav 1.025 Normal 1.015-1.02 5 [facility] Comment on above: Performed By: #### B MP, CBC, ADIFF, GFR, ANEU, MG #### [place] [address] UA Specimen Type Clean Catch Normal [facility] Comment on above: Performed By: #### B MP, CBC, ADIFF, GFR, ANEU, MG #### [place] [address] UA Urobilinogen >=8.0 Abnormal 0.2-1.0 [facility] Comment on above: Performed By: #### B MP, CBC, ADIFF, GFR, ANEU, MG #### [place] [address] UDRUGon 10-08-2024 Amphetamine (u) Negative Normal Negative [facility] Comment on above: Performed By: #### R ESCVID #### [place] [address] Barbiturate (u) Negative Normal Negative [facility] Comment on above: Performed By: #### R ESCVID #### [place] [id number] Benzodiazepine (u) Negative Normal Negative [facility] Comment on above: Performed By: #### R ESCVID #### [address] [address] Cannabinoid (u) Negative Normal Negative [facility] Comment on above: Performed By: #### R ESCVID #### [address] [address] Cocaine Ql (U) Negative Normal Negative [facility] Comment on above: Performed By: #### R ESCVID #### [address] [address] Methadone Ql (U) Negative Normal Negative [facility] Comment on above: Performed By: #### R ESCVID #### [address] [address] Opiate (u) Negative Normal Negative [facility] Comment on above: Performed By: #### R ESCVID #### [address] [address] PCP (u) Negative Normal Negative [facility] Comment on above: Performed By: #### R ESCVID #### [place] [address] Urine Drugs screened: See Below Normal [facility] Comment on above: Result Comment: This drug screen is a presumptive screening only. No confirmation will be performed unless requested. Drugs screened include: Threshold Amphetamines/Methamphetamines 1,000 ng/mL Barbiturates 200 ng/mL Benzodiazepine metabolites 200 ng/mL Cannabinoids (THC metabolites) 50 ng/mL Cocaine 300 ng/mL Opiates 300 ng/mL Methadone 300 ng/mL Phencyclidine (PCP) 25 ng/mL Testing has been performed FOR MEDICAL PURPOSES ONLY. Performed By: #### R ESCVID #### [address] [address] XR CHEST 1 VIEWon 10-08-2024 XR CHEST 1 VIEW ORIGINAL EXAMINATION: ONE XRAY VIEW OF THE CHEST 10/08/2024 3:30 pm COMPARISON: 08/05/2024 HISTORY: ORDERING SYSTEM PROVIDED HISTORY: Reason for Exam: ams, cough FINDINGS: There is hypoinflation with accentuation of the cardiomediastinal silhouette and increased bronchovascular markings. There is no consolidation or pleural effusion. There is no pulmonary vascular congestion. There is no pneumothorax. Osseous structures demonstrate degenerative changes. IMPRESSION: 1. There is no consolidation or effusion. Interpreted by: Augustin Prado Preliminary Report By: Augustin Prado Electronically signed By Augustin Prado Dictated Date: 10/08/2024 3:36:09 PM Prelim Date: 10/08/2024 3:39:16 PM Sign Date: 10/08/2024 3:39:16 PM Ordering Provider: TNOG PIZARRO Normal [facility] .Auto Diffon 08-05-2024 Basophil, Absolute 0.0 10 3/mcL Normal 0.0-0.2 [facility] Comment on above: Performed By: #### B MP, CBC, ADIFF, GFR, ANEU, MG #### [place] [address] [place], [place] [address] Basophils/100 WBC (Bld) 0.7 % Normal 0.0-2.5 [facility] Comment on above: Performed By: #### B MP, CBC, ADIFF, GFR, ANEU, MG #### [place] [address] Eosinophil, Absolute 0.0 10 3/mcL Normal 0.0-0.7 [facility] Comment on above: Performed By: #### B MP, CBC, ADIFF, GFR, ANEU, MG #### [address] [address] Eosinophils/100 WBC (Bld) 0.8 % Normal 0.0-7.0 [facility] Comment on above: Performed By: #### B MP, CBC, ADIFF, GFR, ANEU, MG #### [address] [address] Lymphocyte, Absolute 0.6 10 3/mcL Low 0.9-4.3 [facility] Comment on above: Performed By: #### B MP, CBC, ADIFF, GFR, ANEU, MG #### [address] [address] Lymphocytes/100 WBC (Bld) 30.6 % Normal 20.0-40.0 [facility] Comment on above: Performed By: #### B MP, CBC, ADIFF, GFR, ANEU, MG #### [address] [address] Monocyte, Absolute 0.2 10 3/mcL Normal 0.1-1.4 [facility] Comment on above: Performed By: #### B MP, CBC, ADIFF, GFR, ANEU, MG #### [address] [address] Monocytes/100 WBC (Bld) 12.2 % Normal 2.0-13.0 [facility] Comment on above: Performed By: #### B MP, CBC, ADIFF, GFR, ANEU, MG #### [address] [address] Neutrophils/100 WBC (Bld) 55.7 % Normal 50.0-75.0 [facility] Comment on above: Performed By: #### B MP, CBC, ADIFF, GFR, ANEU, MG #### [address] [address] .GFRon 12-20-2024 GFR 85 ml/min/1.73sqm Normal [facility] Comment on above: Result Comment: GFR Population mean for , Non- Americans Ages 20-29 = 116 mL/min/1.73 sq.m. Ages 30-39 = 107 mL/min/1.73 sq.m. Ages 40-49 = 99 mL/min/1.73 sq.m. Ages 50-59 = 93 mL/min/1.73 sq.m. Ages 60-69 = 85 mL/min/1.73 sq.m. Ages 70+ = 75 mL/min/1.73 sq.m. Chronic Kidney Disease: Less than 60 mL/min/1.73 square meters End Stage Renal Disease: Less than 15 mL/min/1.73 square meters Performed By: #### R ESCVID #### [address] [address] GFR Non- 70 ml/min/1.73sqm Normal [facility] Comment on above: Result Comment: GFR Population mean for , Non- Americans Ages 20-29 = 116 mL/min/1.73 sq.m. Ages 30-39 = 107 mL/min/1.73 sq.m. Ages 40-49 = 99 mL/min/1.73 sq.m. Ages 50-59 = 93 mL/min/1.73 sq.m. Ages 60-69 = 85 mL/min/1.73 sq.m. Ages 70+ = 75 mL/min/1.73 sq.m. Chronic Kidney Disease: Less than 60 mL/min/1.73 square meters End Stage Renal Disease: Less than 15 mL/min/1.73 square meters Performed By: #### R ESCVID #### [address] [address] .MDWon 08-05-2024 Monocyte Distribution Width 22.28 High 0.00-20.00 [facility] Comment on above: Result Comment: For adults in ED, MDW>20.0 may be associated with a higher risk of sepsis during the first 12hrs of hospital admission Performed By: #### B MP, CBC, ADIFF, GFR, ANEU, MG #### [address] [address] .Morphon 08-05-2024 Platelet Estimate Grt Decreased Normal [facility] Comment on above: Performed By: #### B MP, CBC, ADIFF, GFR, ANEU, MG #### [address] [address] RBC morphology finding Nom (Bld) Normal Normal [facility] Comment on above: Performed By: #### B MP, CBC, ADIFF, GFR, ANEU, MG #### [address] [address] .NEUABSon 08-05-2024 Neutrophil, Absolute 1.1 10 3/mcL Low 2.3-8.1 [facility] Comment on above: Performed By: #### B MP, CBC, ADIFF, GFR, ANEU, MG #### [place] [address] .Urinalysis Microscopic (AO) on 08-05-2024 UA RBC 0-5 Abnormal None Seen [facility] Comment on above: Performed By: #### U AMICAO, UA #### [place] [id number] UA Squam Epithelial 0-5 Abnormal None Seen [facility] Comment on above: Performed By: #### U AMICAO, UA #### [place] [id number] UA WBC 0-5 Abnormal None Seen [facility] Comment on above: Performed By: #### U AMICAO, UA #### [address] [address] BMPon 08-05-2024 BUN/Creatinine Ratio 7 ratio Normal 7-27 [facility] Comment on above: Performed By: #### R ESCOLIVIA #### [facility] [address] [place] [address] Calcium [Mass/Vol] 8.5 mg/dL Normal 8.4-10.2 [facility] Comment on above: Performed By: #### R BRANDON #### [address] [address] Chloride [Moles/Vol] 103 mmol/L Normal 98-107 [facility] Comment on above: Performed By: #### R ESCVID #### [address] [address] CO2 [Moles/Vol] 26 mmol/L Normal 23-31 [facility] Comment on above: Performed By: #### R ESCVID #### [address] [address] Creatinine [Mass/Vol] 1.06 mg/dL Normal 0.70-1.30 [facility] Comment on above: Result Comment: Test ing performed on Siemens Dimension EXL analyzer using a modified kinetic Tri technique. Performed By: #### R ESCVIStaci #### [address] [address] Electrolyte Balance 13.0 mEq/L Normal 4.0-15.0 [facility] Comment on above: Performed By: #### R ESCVID #### [address] [address] Glucose [Mass/Vol] 92 mg/dL Normal 80-115 [facility] Comment on above: Performed By: #### R ESCOLIVIA #### [address] [address] Potassium [Moles/Vol] 3.4 mmol/L Low 3.5-5.1 [facility] Comment on above: Performed By: #### R ESCVIStaci #### [address] [address] Sodium [Moles/Vol] 142 mmol/L Normal 136-145 [facility] Comment on above: Performed By: #### R ESCVID #### [address] [address] Urea nitrogen [Mass/Vol] 7 mg/dL Normal 7-18 [facility] Comment on above: Performed By: #### R ESCOLIVIA #### [address] [address] CBCon 08-05-2024 Erythrocyte distribution width (RBC) [Ratio] 18.1 % High 11.5-15.5 [facility] Comment on above: Performed By: #### R ESCVIStaci #### [place] [address] Hematocrit (Bld) [Volume fraction] 36.1 % Low 40.0-52.0 [facility] Comment on above: Performed By: #### R ESCVIStaci #### [place] [address] Hgb 12.3 G/dL Low 13.0-17.5 [facility] Comment on above: Performed By: #### R ESCOLIVIA #### [place] [address] MCH (RBC) [Entitic mass] 34.7 pg High 27.0-33.0 [facility] Comment on above: Performed By: #### R ESCVIStaci #### [place] [address] MCHC 33.9 G/dL Normal 32.0-36.0 [facility] Comment on above: Performed By: #### R ESCOLIVIA #### [place] [address] MCV (RBC) [Entitic vol] 102.4 fL High 81.0-100.0 [facility] Comment on above: Performed By: #### R ESCOLIVIA #### [place] [address] Platelet 52 10 3/mcL Low 150-450 [facility] Comment on above: Performed By: #### R ESCVIStaci #### [place] [address] Platelet mean volume (Bld) [Entitic vol] 8.8 fL Normal 6.4-10.5 [facility] Comment on above: Performed By: #### R ESCOLIVIA #### [place] [address] RBC 3.53 10 6/mcL Low 4.50-6.00 [facility] Comment on above: Performed By: #### R ESCVID #### [address] [address] WBC 2.0 10 3/mcL Low 4.5-10.8 [facility] Comment on above: Performed By: #### R ESCVID #### [place] [id number] [place] [address] LABORATORYOrdered By: Michael carbajal on 08-05-2024 Appearance (U) Clear (08/05/24 4:46 PM) Normal Clear AO Auto Urine SS Bilirubin Ql (U) Negative (08/05/24 4:46 PM) Normal Negative AO Auto Urine SS Color (U) Yellow (08/05/24 4:46 PM) Normal AO Auto Urine SS Glucose Test strip (U) [Mass/Vol] Negative Normal Negative AO Auto Urine SS Hemoglobin Auto test strip (U) [Mass/Vol] Trace *ABN* (08/05/24 4:46 PM) Invalid Interpretation Code Negative AO Auto Urine SS Ketones Ql (U) Negative Normal Negative AO Auto Urine SS UA Leuk Est Negative (08/05/24 4:46 PM) Normal Negative AO Auto Urine SS UA Nitrite Negative (08/05/24 4:46 PM) Normal Negative AO Auto Urine SS UA pH 6.0 (08/05/24 4:46 PM) Normal 5.0 - 8.0 AO Auto Urine SS UA Protein 100 mg/dL Invalid Interpretation Code Negative AO Auto Urine SS UA RBC 0-5 /HPF Invalid Interpretation Code None Seen AO Auto Urine SS UA Spec Grav 1.020 (08/05/24 4:46 PM) Normal 1.015-1.02 5 AO Auto Urine SS UA Specimen Type Clean Catch (08/05/24 4:46 PM) Normal AO Auto Urine SS UA Squam Epithelial 0-5 /HPF Invalid Interpretation Code None Seen AO Auto Urine SS UA Urobilinogen 2.0 E.U./dL Invalid Interpretation Code 0.2-1.0 AO Auto Urine SS WBC LM.HPF (Urine sed) [#/Area] 0-5 /HPF Invalid Interpretation Code None Seen AO Auto Urine SS LABORATORYOrdered By: SYSTEM SYSTEM on 08-05-2024 Basophils (Bld) [#/Vol] 0.0 103/mcL Normal 0.0 - 0.2 10^3/mcL AO Workflow SS Basophils/100 WBC (Bld) 0.7 % Normal 0.0 - 2.5 % AO Workflow SS Calcium [Mass/Vol] 8.5 mg/dL Normal 8.4 - 10. 2 mg/dL AO ADM SS Chloride [Moles/Vol] 103 mmol/L Normal 98 - 10 7 mmol/L AO ADM SS CO2 [Moles/Vol] 26 mmol/L Normal 23 - 31 mmol/L AO ADM SS Creatinine [Mass/Vol] 1.06 mg/dL Normal 0.70 - 1.30 mg/dL AO ADM SS Comment on above: Interpretive Data: T esting performed on Siemens Dimension EXL analyzer using a modified kinetic Tri technique. Electrolyte Balance 13.0 mEq/L Normal 4.0 - 15 .0 mEq/L AO ADM SS Eosinophil, Absolute 0.0 103/mcL Normal 0.0 - 0 .7 10^3/mcL AO Workflow SS Eosinophils/100 WBC (Bld) 0.8 % Normal 0.0 - 7.0 % AO Workflow SS Erythrocyte distribution width (RBC) [Ratio] 18.1 % High 11.5 - 15.5 % AO Workflow SS GFR/1.73 sq M.predicted among blacks MDRD (S/P/Bld) [Vol rate/Area] 85 ml/min/1.73sqm Invalid Interpretation Code AO Chemistry S Comment on above: Interpretive Data: GFR Population mean for , Non- Americans Ages 20-29 = 116 mL/min/1.73 sq.m. Ages 30-39 = 107 mL/min/1.73 sq.m. Ages 40-49 = 99 mL/min/1.73 sq.m. Ages 50-59 = 93 mL/min/1.73 sq.m. Ages 60-69 = 85 mL/min/1.73 sq.m. Ages 70+ = 75 mL/min/1.73 sq.m. Chronic Kidney Disease: Less than 60 mL/min/1.73 square meters End Stage Renal Disease: Less than 15 mL/min/1.73 square meters GFR/1.73 sq M.predicted among non-blacks MDRD (S/P/Bld) [Vol rate/Area] 70 ml/min/1.73sqm Invalid Interpretation Code AO Chemistry S Comment on above: Interpretive Data: GFR Population mean for , Non- Americans Ages 20-29 = 116 mL/min/1.73 sq.m. Ages 30-39 = 107 mL/min/1.73 sq.m. Ages 40-49 = 99 mL/min/1.73 sq.m. Ages 50-59 = 93 mL/min/1.73 sq.m. Ages 60-69 = 85 mL/min/1.73 sq.m. Ages 70+ = 75 mL/min/1.73 sq.m. Chronic Kidney Disease: Less than 60 mL/min/1.73 square meters End Stage Renal Disease: Less than 15 mL/min/1.73 square meters Glucose [Mass/Vol] 92 mg/dL Normal 80 - 115 mg/dL AO ADM SS Hematocrit (Bld) [Volume fraction] 36.1 % Low 40.0 - 52.0 % AO Workflow SS Hemoglobin (Bld) [Mass/Vol] 12.3 G/dL Low 13.0 - 17.5 G/dL AO Workflow SS Lymphocytes (Bld) [#/Vol] 0.6 103/mcL Low 0.9 - 4.3 10^3/mcL AO Workflow SS Lymphocytes/100 WBC (Bld) 30.6 % Normal 20.0 - 40.0 % AO Workflow SS Magnesium [Mass/Vol] 1.1 mg/dL Low 1.8 - 2 .4 mg/dL AO ADM SS MCH (RBC) [Entitic mass] 34.7 pg High 27.0 - 33.0 pg AO Workflow SS MCHC 33.9 G/dL Normal 32.0 - 36.0 G/dL AO Workflow SS MCV (RBC) [Entitic vol] 102.4 fL High 81.0 - 100.0 fL AO Workflow SS Monocyte distribution width Auto (Bld) [Entitic vol] 22.28 1 High 0.00 - 20.00 AO Workflow SS Comment on above: Result Comment: For adults in ED, MDW>20.0 may be associated with a higher risk of sepsis during the first 12hrs of hospital admission Monocytes (Bld) [#/Vol] 0.2 103/mcL Normal 0.1 - 1.4 10^3/mcL AO Workflow SS Monocytes/100 WBC (Bld) 12.2 % Normal 2.0 - 13.0 % AO Workflow SS Neutrophils (Bld) [#/Vol] 1.1 103/mcL Low 2.3 - 8.1 10^3/mcL AO Workflow SS Neutrophils/100 WBC (Bld) 55.7 % Normal 50.0 - 75.0 % AO Workflow SS Platelet mean volume (Bld) [Entitic vol] 8.8 fL Normal 6.4 - 10.5 fL AO Workflow SS Platelets (Bld) [#/Vol] 52 103/mcL Low 150 - 450 10^3/mcL AO Workflow SS Platelets LM Ql (Bld) Grt Decreased *NA* (08/05/24 4:46 PM) Invalid Interpretation Code AO Workflow SS Potassium [Moles/Vol] 3.4 mmol/L Low 3.5 - 5.1 mmol/L AO ADM SS RBC (Bld) [#/Vol] 3.53 106/mcL Low 4.50 - 6.00 10^6/mcL AO Workflow SS RBC morphology finding Nom (Bld) Normal *NA* (08/05/24 4:46 PM) Invalid Interpretation Code AO Workflow SS Sodium [Moles/Vol] 142 mmol/L Normal 136 - 145 mmol/L AO ADM SS Urea nitrogen [Mass/Vol] 7 mg/dL Normal 7 - 18 mg/dL AO ADM SS Urea nitrogen/Creatinine [Mass ratio] 7 ratio Normal 7 - 27 ratio AO ADM SS WBC (Bld) [#/Vol] 2.0 103/mcL Low 4.5 - 10.8 10^3/mcL AO Workflow SS MGon 08-05-2024 Magnesium [Mass/Vol] 1.1 mg/dL Low 1.8-2.4 [facility] Comment on above: Performed By: #### R ESCVID #### [facility] [address] [place] [id number] UAon 08-05-2024 Color (U) Yellow Normal [facility] Comment on above: Performed By: #### U CARA SAEZ #### [address] [address] Glucose (U) [Mass/Vol] Negative Normal Negative [facility] Comment on above: Performed By: #### U CARA SAEZ #### [address] [address] Ketones Ql (U) Negative Normal Negative [facility] Comment on above: Performed By: #### U AMICAO, UA #### [place] [address] UA Appear Clear Normal Clear [facility] Comment on above: Performed By: #### U AMICAO, UA #### [place] [id number] UA Blood Trace Abnormal Negative [facility] Comment on above: Performed By: #### U AMICAO, UA #### [place] [address] UA Leuk Est Negative Normal Negative [facility] Comment on above: Performed By: #### U AMICAO, UA #### [place] [address] UA Nitrite Negative Normal Negative [facility] Comment on above: Performed By: #### U AMICAO, UA #### [place] [address] UA pH 6.0 Normal 5.0 - 8.0 [facility] Comment on above: Performed By: #### U AMICAO, UA #### [place] [address] UA Protein 100 mg/dL Abnormal Negative [facility] Comment on above: Performed By: #### U AMICAO, UA #### [place] [address] UA Spec Grav 1.020 Normal 1.015-1.[address] [place] [address] Comment on above: Performed By: #### U AMICAO, UA #### [address] [address] UA Specimen Type Clean Catch Normal [facility] Comment on above: Performed By: #### U AMICAO, UA #### [place] [address] UA Urobilinogen 2.0 E.U./dL Abnormal 0.2-1.0 [facility] Comment on above: Performed By: #### U AMICAO, UA #### [place] [address] [place], [place] [address] Urobilinogen (U) [Mass/Vol] Negative Normal Negative [facility] Comment on above: Performed By: #### U CARA SAEZ #### [place] [address] [place], [place] [address] XR CHEST 1 VIEWon 08-05-2024 XR CHEST 1 VIEW ORIGINAL EXAMINATION: ONE XRAY VIEW OF THE CHEST08/05/2024 5:11 pm CHEST ONE VIEW AP/PA EXAM DESCRIPTION: COMPARISON: Chest, May 26, 2024 HISTORY: ORDERING SYSTEM PROVIDED HISTORY: Reason for Exam: weakness FINDINGS: Single AP radiograph of the chest was obtained. The lungs are clear without evidence of focal consolidation, mass, pleural effusion, or pneumothorax. The cardiomediastinal silhouette is unremarkable. The bones and soft tissues are unremarkable. IMPRESSION: No radiographic evidence of acute cardiopulmonary disease. Interpreted by: Janet Mejía MD Preliminary Report By: Janet Mejía MD Electronically signed By Janet Mejía MD Dictated Date: 08/05/2024 5:21:30 PM Prelim Date: 08/05/2024 5:21:45 PM Sign Date: 08/05/2024 5:21:45 PM Ordering Provider: EMILIE Meeks [facility] XR CHEST 1 VIEWon 05-26-2024 XR CHEST 1 VIEW ORIGINAL EXAMINATION: ONE XRAY VIEW OF THE CHEST05/26/2024 2:37 am COMPARISON: Chest radiograph 05/16/2024 HISTORY: ORDERING SYSTEM PROVIDED HISTORY: Reason for Exam: pain FINDINGS: Stable cardiomediastinal silhouette. Low lung volumes with bronchovascular crowding bilaterally. No focal consolidation or significant pulmonary vascular congestion. No pneumothorax or pleural effusion. No acute osseous abnormalities. Remote left lower rib deformities. IMPRESSION: Hypoventilatory changes. No focal consolidation. I have personally reviewed the images of this examination and agree with the resident's findings and interpretation. Interpreted by: Kyler Britton MD Preliminary Report By: Hema Saleem Electronically signed By Kyler rBitton MD Dictated Date: 05/26/2024 2:44:19 AM Prelim Date: 05/26/2024 2:45:27 AM Sign Date: 05/26/2024 2:51:00 AM Ordering Provider: CHARLIE Meeks [facility] .Auto Diffon 05-16-2024 Basophil, Absolute 0.0 10 3/mcL Normal 0.0-0.3 [facility] Comment on above: Performed By: #### B MP, CBC, ADIFF, ANEU, GFR #### [address] [address] Basophils/100 WBC (Bld) 0.6 % Normal 0.0-2.5 [facility] Comment on above: Performed By: #### B MP, CBC, ADIFF, ANEU, GFR #### [address] [address] Eosinophil, Absolute 0.1 10 3/mcL Normal 0.0-0.7 [facility] Comment on above: Performed By: #### B MP, CBC, ADIFF, ANEU, GFR #### [address] [address] Eosinophils/100 WBC (Bld) 2.6 % Normal 0.0-6.0 [facility] Comment on above: Performed By: #### B MP, CBC, ADIFF, ANEU, GFR #### [address] [address] Lymphocyte, Absolute 1.3 10 3/mcL Normal 0.9-4.3 [facility] Comment on above: Performed By: #### B MP, CBC, ADIFF, ANEU, GFR #### [address] [address] Lymphocytes/100 WBC (Bld) 35.4 % Normal 20.0-40.0 [facility] Comment on above: Performed By: #### B MP, CBC, ADIFF, ANEU, GFR #### [address] [address] Monocyte, Absolute 0.4 10 3/mcL Normal 0.1-1.4 [facility] Comment on above: Performed By: #### B MP, CBC, ADIFF, ANEU, GFR #### [address] [address] Monocytes/100 WBC (Bld) 11.3 % Normal 2.0-13.0 [facility] Comment on above: Performed By: #### B MP, CBC, ADIFF, ANEU, GFR #### [address] [address] Neutrophils/100 WBC (Bld) 50.1 % Normal 50.0-75.0 [facility] Comment on above: Performed By: #### B MP, CBC, ADIFF, ANEU, GFR #### [address] [address] .GFRon 05-16-2024 GFR Non- >60 Normal [facility] Comment on above: Result Comment: GFR Population mean for , Non- Americans Ages 20-29 = 116 mL/min/1.73 sq.m. Ages 30-39 = 107 mL/min/1.73 sq.m. Ages 40-49 = 99 mL/min/1.73 sq.m. Ages 50-59 = 93 mL/min/1.73 sq.m. Ages 60-69 = 85 mL/min/1.73 sq.m. Ages 70+ = 75 mL/min/1.73 sq.m. Chronic Kidney Disease: Less than 60 mL/min/1.73 square meters End Stage Renal Disease: Less than 15 mL/min/1.73 square meters Performed By: #### B MP, CBC, ADIFF, ANEU, GFR #### [address] [address] GFR >60 Normal [facility] Comment on above: Result Comment: GFR Population mean for , Non- Americans Ages 20-29 = 116 mL/min/1.73 sq.m. Ages 30-39 = 107 mL/min/1.73 sq.m. Ages 40-49 = 99 mL/min/1.73 sq.m. Ages 50-59 = 93 mL/min/1.73 sq.m. Ages 60-69 = 85 mL/min/1.73 sq.m. Ages 70+ = 75 mL/min/1.73 sq.m. Chronic Kidney Disease: Less than 60 mL/min/1.73 square meters End Stage Renal Disease: Less than 15 mL/min/1.73 square meters Performed By: #### B MP, CBC, ADIFF, ANEU, GFR #### [address] [address] .NEUABSon 05-16-2024 Neutrophil, Absolute 1.8 10 3/mcL Low 2.3-8.1 [facility] Comment on above: Performed By: #### B MP, CBC, ADIFF, ANEU, GFR #### [address] [address] BMPon 05-16-2024 BUN/Creatinine Ratio 15.7 ratio Normal 10.0-22.0 [facility] Comment on above: Performed By: #### B MP, CBC, ADIFF, ANEU, GFR #### [place] [address] Calcium [Mass/Vol] 8.9 mg/dL Normal 8.7-10.4 [facility] Comment on above: Performed By: #### B MP, CBC, ADIFF, ANEU, GFR #### [place] [address] Chloride [Moles/Vol] 109 mmol/L Normal 98-110 [facility] Comment on above: Performed By: #### B MP, CBC, ADIFF, ANEU, GFR #### [place] [address] CO2 [Moles/Vol] 27 mmol/L Normal 22-32 [facility] Comment on above: Performed By: #### B MP, CBC, ADIFF, ANEU, GFR #### [place] [address] Creatinine [Mass/Vol] 0.89 mg/dL Normal 0.60-1.40 [facility] Comment on above: Result Comment: Test ing performed on Shape Collage analyzer using enzymatic creatinine methodology. Performed By: #### B MP, CBC, ADIFF, ANEU, GFR #### [place] [address] Electrolyte Balance 2.0 mEq/L Low 4.0-15.0 [facility] Comment on above: Performed By: #### B MP, CBC, ADIFF, ANEU, GFR #### [place] [address] Glucose [Mass/Vol] 108 mg/dL Normal 82-115 [facility] Comment on above: Performed By: #### B MP, CBC, ADIFF, ANEU, GFR #### [place] [phone] Potassium [Moles/Vol] 3.9 mmol/L Normal 3.5-5.0 [facility] Comment on above: Performed By: #### B MP, CBC, ADIFF, ANEU, GFR #### [place] [id number] Sodium [Moles/Vol] 138 mmol/L Normal 136-145 [facility] Comment on above: Performed By: #### B MP, CBC, ADIFF, ANEU, GFR #### [place] [id number] Urea nitrogen [Mass/Vol] 14.0 mg/dL Normal 8.0-22.0 [facility] Comment on above: Performed By: #### B MP, CBC, ADIFF, ANEU, GFR #### [address] [address] CBCon 05-16-2024 Erythrocyte distribution width (RBC) [Ratio] 14.9 % Normal 11.5-15.5 [facility] Comment on above: Performed By: #### B MP, CBC, ADIFF, ANEU, GFR #### [place] [id number] Hematocrit (Bld) [Volume fraction] 28.5 % Low 40.0-52.0 [facility] Comment on above: Performed By: #### B MP, CBC, ADIFF, ANEU, GFR #### [address] [address] Hgb 9.5 G/dL Low 13.0-17.5 [facility] Comment on above: Performed By: #### B MP, CBC, ADIFF, ANEU, GFR #### [place] [id number] MCH (RBC) [Entitic mass] 35.1 pg High 27.0-33.0 [facility] Comment on above: Performed By: #### B MP, CBC, ADIFF, ANEU, GFR #### [place] [address] MCHC 33.4 G/dL Normal 32.0-36.0 [facility] Comment on above: Performed By: #### B MP, CBC, ADIFF, ANEU, GFR #### [place] [address] MCV (RBC) [Entitic vol] 105.0 fL High 81.0-100.0 [facility] Comment on above: Performed By: #### B MP, CBC, ADIFF, ANEU, GFR #### [place] [address] Platelet 172 10 3/mcL Normal 150-450 [facility] Comment on above: Performed By: #### B MP, CBC, ADIFF, ANEU, GFR #### [place] [address] Platelet mean volume (Bld) [Entitic vol] 7.7 fL Normal 6.4-10.5 [facility] Comment on above: Performed By: #### B MP, CBC, ADIFF, ANEU, GFR #### [place] [address] RBC 2.72 10 6/mcL Low 4.50-6.00 [facility] Comment on above: Performed By: #### B MP, CBC, ADIFF, ANEU, GFR #### [place] [address] WBC 3.6 10 3/mcL Low 4.5-10.8 [facility] Comment on above: Performed By: #### B MP, CBC, ADIFF, ANEU, GFR #### [place] [address] LABORATORYOrdered By: SYSTEM SYSTEM on 05-16-2024 Basophils (Bld) [#/Vol] 0.0 103/mcL Normal 0.0 - 0.3 10^3/mcL AH Workflow SS Basophils/100 WBC (Bld) 0.6 % Normal 0.0 - 2.5 % AH Workflow SS Calcium [Mass/Vol] 8.9 mg/dL Normal 8.7 - 10. 4 mg/dL ADM SS Chloride [Moles/Vol] 109 mmol/L Normal 98 - 11 0 mEq/L ADM SS CO2 [Moles/Vol] 27 mmol/L Normal 22 - 32 mEq/L ADM SS Creatinine [Mass/Vol] 0.89 mg/dL Normal 0.60 - 1.40 mg/dL ADM SS Comment on above: Interpretive Data: T esting performed on Shape Collage analyzer using enzymatic creatinine methodology. Electrolyte Balance 2.0 mEq/L Low 4.0 - 15 .0 mEq/L ADM SS Eosinophils (Bld) [#/Vol] 0.1 103/mcL Normal 0.0 - 0.7 10^3/mcL Workflow SS Eosinophils/100 WBC (Bld) 2.6 % Normal 0.0 - 6.0 % Workflow SS Erythrocyte distribution width (RBC) [Ratio] 14.9 % Normal 11.5 - 15.5 % Workflow SS GFR/1.73 sq M.predicted among blacks MDRD (S/P/Bld) [Vol rate/Area] ml/min/1.73sqm Invalid Interpretation Code Int[employer] 2 Conception Chemistry S Comment on above: Interpretive Data: GFR Population mean for , Non- Americans Ages 20-29 = 116 mL/min/1.73 sq.m. Ages 30-39 = 107 mL/min/1.73 sq.m. Ages 40-49 = 99 mL/min/1.73 sq.m. Ages 50-59 = 93 mL/min/1.73 sq.m. Ages 60-69 = 85 mL/min/1.73 sq.m. Ages 70+ = 75 mL/min/1.73 sq.m. Chronic Kidney Disease: Less than 60 mL/min/1.73 square meters End Stage Renal Disease: Less than 15 mL/min/1.73 square meters GFR/1.73 sq M.predicted among non-blacks MDRD (S/P/Bld) [Vol rate/Area] ml/min/1.73sqm Invalid Interpretation Code Int[employer] 2 Conception Chemistry S Comment on above: Interpretive Data: GFR Population mean for , Non- Americans Ages 20-29 = 116 mL/min/1.73 sq.m. Ages 30-39 = 107 mL/min/1.73 sq.m. Ages 40-49 = 99 mL/min/1.73 sq.m. Ages 50-59 = 93 mL/min/1.73 sq.m. Ages 60-69 = 85 mL/min/1.73 sq.m. Ages 70+ = 75 mL/min/1.73 sq.m. Chronic Kidney Disease: Less than 60 mL/min/1.73 square meters End Stage Renal Disease: Less than 15 mL/min/1.73 square meters Glucose [Mass/Vol] 108 mg/dL Normal 82 - 115 mg/dL AH ADM SS Hematocrit (Bld) [Volume fraction] 28.5 % Low 40.0 - 52.0 % AH Workflow SS Hemoglobin (Bld) [Mass/Vol] 9.5 G/dL Low 13.0 - 17.5 G/dL AH Workflow SS Lymphocytes (Bld) [#/Vol] 1.3 103/mcL Normal 0.9 - 4.3 10^3/mcL AH Workflow SS Lymphocytes/100 WBC (Bld) 35.4 % Normal 20.0 - 40.0 % AH Workflow SS MCH (RBC) [Entitic mass] 35.1 pg High 27.0 - 33.0 pg AH Workflow SS MCHC 33.4 G/dL Normal 32.0 - 36.0 G/dL AH Workflow SS MCV (RBC) [Entitic vol] 105.0 fL High 81.0 - 100.0 fL AH Workflow SS Monocytes (Bld) [#/Vol] 0.4 103/mcL Normal 0.1 - 1.4 10^3/mcL AH Workflow SS Monocytes/100 WBC (Bld) 11.3 % Normal 2.0 - 13.0 % AH Workflow SS Neutrophils (Bld) [#/Vol] 1.8 103/mcL Low 2.3 - 8.1 10^3/mcL AH Workflow SS Neutrophils/100 WBC (Bld) 50.1 % Normal 50.0 - 75.0 % AH Workflow SS Platelet mean volume (Bld) [Entitic vol] 7.7 fL Normal 6.4 - 10.5 fL AH Workflow SS Platelets (Bld) [#/Vol] 172 103/mcL Normal 150 - 450 10^3/mcL AH Workflow SS Potassium [Moles/Vol] 3.9 mmol/L Normal 3.5 - 5.0 mEq/L AH ADM SS RBC (Bld) [#/Vol] 2.72 106/mcL Low 4.50 - 6.00 10^6/mcL Workflow SS Sodium [Moles/Vol] 138 mmol/L Normal 136 - 145 mEq/L ADM SS Urea nitrogen [Mass/Vol] 14.0 mg/dL Normal 8.0 - 22.0 mg/dL ADM SS Urea nitrogen/Creatinine [Mass ratio] 15.7 ratio Normal 10.0 - 22.0 ratio AH ADM SS WBC (Bld) [#/Vol] 3.6 103/mcL Low 4.5 - 10.8 10^3/mcL Workflow SS XR CHEST 1 VIEWon 05-16-2024 XR CHEST 1 VIEW ORIGINAL EXAMINATION: ONE XRAY VIEW OF THE CHEST 05/16/2024 6:27 am COMPARISON: Chest x-ray on 05/15/2024 HISTORY: ORDERING SYSTEM PROVIDED HISTORY: Reason for Exam: Chest Pain FINDINGS: The heart size is normal. There is no acute lung infiltrate or edema. No pleural fluid is visible. The small right apical pneumothorax is no longer detected. Rib fractures are better seen on CT scan from the prior day. IMPRESSION: 1. Resolution of small right apical pneumothorax. 2. No acute cardiopulmonary process. Interpreted by: Luis Morales MD Preliminary Report By: Luis Morales MD Electronically signed By Luis Morales MD Dictated Date: 05/16/2024 6:32:36 AM Prelim Date: 05/16/2024 6:34:24 AM Sign Date: 05/16/2024 6:34:24 AM Ordering Provider: JANET Meeks [facility] .Auto Diffon 05-15-2024 Basophil, Absolute 0.0 10 3/mcL Normal 0.0-0.2 [facility] Comment on above: Performed By: #### B MP, CBC, ADIFF, GFR, ANEU, MG #### [address] [address] Basophils/100 WBC (Bld) 0.9 % Normal 0.0-2.5 [facility] Comment on above: Performed By: #### B MP, CBC, ADIFF, GFR, ANEU, MG #### [address] [address] Eosinophil, Absolute 0.0 10 3/mcL Normal 0.0-0.7 [facility] Comment on above: Performed By: #### B MP, CBC, ADIFF, GFR, ANEU, MG #### [address] [address] Eosinophils/100 WBC (Bld) 0.3 % Normal 0.0-7.0 [facility] Comment on above: Performed By: #### B MP, CBC, ADIFF, GFR, ANEU, MG #### [address] [address] Lymphocyte, Absolute 1.1 10 3/mcL Normal 0.9-4.3 [facility] Comment on above: Performed By: #### B MP, CBC, ADIFF, GFR, ANEU, MG #### [address] [address] Lymphocytes/100 WBC (Bld) 21.3 % Normal 20.0-40.0 [facility] Comment on above: Performed By: #### B MP, CBC, ADIFF, GFR, ANEU, MG #### [address] [address] Monocyte, Absolute 0.6 10 3/mcL Normal 0.1-1.4 [facility] Comment on above: Performed By: #### B MP, CBC, ADIFF, GFR, ANEU, MG #### [address] [address] Monocytes/100 WBC (Bld) 11.1 % Normal 2.0-13.0 [facility] Comment on above: Performed By: #### B MP, CBC, ADIFF, GFR, ANEU, MG #### [address] [address] Neutrophils/100 WBC (Bld) 66.4 % Normal 50.0-75.0 [facility] Comment on above: Performed By: #### B MP, CBC, ADIFF, GFR, ANEU, MG #### [address] [address] .GFRon 05-15-2024 GFR 110 ml/min/1.73sqm Normal [facility] Comment on above: Result Comment: GFR Population mean for , Non- Americans Ages 20-29 = 116 mL/min/1.73 sq.m. Ages 30-39 = 107 mL/min/1.73 sq.m. Ages 40-49 = 99 mL/min/1.73 sq.m. Ages 50-59 = 93 mL/min/1.73 sq.m. Ages 60-69 = 85 mL/min/1.73 sq.m. Ages 70+ = 75 mL/min/1.73 sq.m. Chronic Kidney Disease: Less than 60 mL/min/1.73 square meters End Stage Renal Disease: Less than 15 mL/min/1.73 square meters Performed By: #### B MP, CBC, ADIFF, GFR, ANEU, MG #### [address] [address] GFR Non- 91 ml/min/1.73sqm [facility] Comment on above: Result Comment: GFR Population mean for , Non- Americans Ages 20-29 = 116 mL/min/1.73 sq.m. Ages 30-39 = 107 mL/min/1.73 sq.m. Ages 40-49 = 99 mL/min/1.73 sq.m. Ages 50-59 = 93 mL/min/1.73 sq.m. Ages 60-69 = 85 mL/min/1.73 sq.m. Ages 70+ = 75 mL/min/1.73 sq.m. Chronic Kidney Disease: Less than 60 mL/min/1.73 square meters End Stage Renal Disease: Less than 15 mL/min/1.73 square meters Performed By: #### B MP, CBC, ADIFF, GFR, ANEU, MG #### [address] [address] .MDWon 05-15-2024 Monocyte Distribution Width 21.81 High 0.00-20.00 [facility] Comment on above: Result Comment: For adults in ED, MDW>20.0 may be associated with a higher risk of sepsis during the first 12hrs of hospital admission Performed By: #### B MP, CBC, ADIFF, GFR, ANEU, MG #### [place] [address] .NEUABSon 05-15-2024 Neutrophil, Absolute 3.5 10 3/mcL Normal 2.3-8.1 [facility] Comment on above: Performed By: #### B MP, CBC, ADIFF, GFR, ANEU, MG #### [place] [address] Linda 05-15-2024 Ethanol Level <3 Normal 0-3 [facility] Comment on above: Performed By: #### B MP, CBC, ADIFF, GFR, ANEU, MG #### [place] [address] APTTon 05-15-2024 aPTT Coag (Bld) [Time] 40.3 s High 25.0-35.0 [facility] Comment on above: Result Comment: For Heparin anticoagulation therapy, the recommended therapeutic range is: 45.4-75.9 seconds. Patients on heparin therapy may have an extreme result. Performed By: #### B MP, CBC, ADIFF, GFR, ANEU, MG #### [place] [address] CBCon 05-15-2024 Erythrocyte distribution width (RBC) [Ratio] 14.8 % Normal 11.5-15.5 [facility] Comment on above: Performed By: #### B MP, CBC, ADIFF, GFR, ANEU, MG #### [place] [address] Hematocrit (Bld) [Volume fraction] 32.5 % Low 40.0-52.0 [facility] Comment on above: Performed By: #### B MP, CBC, ADIFF, GFR, ANEU, MG #### [place] [address] Hgb 10.9 G/dL Low 13.0-17.5 [facility] Comment on above: Performed By: #### B MP, CBC, ADIFF, GFR, ANEU, MG #### [address] [id number] MCH (RBC) [Entitic mass] 35.2 pg High 27.0-33.0 [facility] Comment on above: Performed By: #### B MP, CBC, ADIFF, GFR, ANEU, MG #### [address] [address] MCHC 33.5 G/dL Normal 32.0-36.0 [facility] Comment on above: Performed By: #### B MP, CBC, ADIFF, GFR, ANEU, MG #### [address] [address] MCV (RBC) [Entitic vol] 105.0 fL High 81.0-100.0 [facility] Comment on above: Performed By: #### B MP, CBC, ADIFF, GFR, ANEU, MG #### [place] [id number] Platelet 193 10 3/mcL Normal 150-450 [facility] Comment on above: Performed By: #### B MP, CBC, ADIFF, GFR, ANEU, MG #### [address] [id number] Platelet mean volume (Bld) [Entitic vol] 7.6 fL Normal 6.4-10.5 [facility] Comment on above: Performed By: #### B MP, CBC, ADIFF, GFR, ANEU, MG #### [place] [id number] RBC 3.10 10 6/mcL Low 4.50-6.00 [facility] Comment on above: Performed By: #### B MP, CBC, ADIFF, GFR, ANEU, MG #### [place] [id number] WBC 5.2 10 3/mcL Normal 4.5-10.8 [facility] Comment on above: Performed By: #### B MP, CBC, ADIFF, GFR, ANEU, MG #### [place] [id number] CMPon 05-15-2024 Albumin Level 3.3 G/dL Low 3.4-4.8 [facility] Comment on above: Performed By: #### B MP, CBC, ADIFF, GFR, ANEU, MG #### [address] [address] Albumin/Globulin [Mass ratio] 0.7 {ratio} Low 1.1-2.5 [facility] Comment on above: Performed By: #### B MP, CBC, ADIFF, GFR, ANEU, MG #### [address] [address] ALP [Catalytic activity/Vol] 121 U/L Normal 40-135 [facility] Comment on above: Performed By: #### B MP, CBC, ADIFF, GFR, ANEU, MG #### [address] [address] ALT [Catalytic activity/Vol] 81 U/L High 16-63 [facility] Comment on above: Performed By: #### B MP, CBC, ADIFF, GFR, ANEU, MG #### [address] [address] AST [Catalytic activity/Vol] 123 U/L High 10-40 [facility] Comment on above: Performed By: #### B MP, CBC, ADIFF, GFR, ANEU, MG #### [address] [address] Bili Total 1.0 mg/dL Normal 0.2-1.0 [facility] Comment on above: Result Comment: Use of this assay is not recommended for patients undergoing treatment with eltrombopag due to the potential for falsely elevated results. Performed By: #### B MP, CBC, ADIFF, GFR, ANEU, MG #### [address] [address] BUN/Creatinine Ratio 13 ratio Normal 7-27 [facility] Comment on above: Performed By: #### B MP, CBC, ADIFF, GFR, ANEU, MG #### [address] [address] Calcium [Mass/Vol] 9.3 mg/dL Normal 8.4-10.2 [facility] Comment on above: Performed By: #### B MP, CBC, ADIFF, GFR, ANEU, MG #### [place] [address] Chloride [Moles/Vol] 101 mmol/L Normal 98-107 [facility] Comment on above: Performed By: #### B MP, CBC, ADIFF, GFR, ANEU, MG #### [place] [address] CO2 [Moles/Vol] 27 mmol/L Normal 23-31 [facility] Comment on above: Performed By: #### B MP, CBC, ADIFF, GFR, ANEU, MG #### [place] [address] Creatinine [Mass/Vol] 0.85 mg/dL Normal 0.70-1.30 [facility] Comment on above: Result Comment: Test ing performed on [employer] Dimension EXL analyzer using a modified kinetic Tri technique. Performed By: #### B MP, CBC, ADIFF, GFR, ANEU, MG #### [place] [address] Electrolyte Balance 9.0 mEq/L Normal 4.0-15.0 [facility] Comment on above: Performed By: #### B MP, CBC, ADIFF, GFR, ANEU, MG #### [place] [address] Globulin 4.8 G/dL Normal [facility] Comment on above: Performed By: #### B MP, CBC, ADIFF, GFR, ANEU, MG #### [place] [address] Glucose [Mass/Vol] 105 mg/dL Normal 80-115 [facility] Comment on above: Performed By: #### B MP, CBC, ADIFF, GFR, ANEU, MG #### [place] [address] Potassium [Moles/Vol] 3.9 mmol/L Normal 3.5-5.1 [facility] Comment on above: Performed By: #### B MP, CBC, ADIFF, GFR, ANEU, MG #### [place] [address] [place], [place] [address] Sodium [Moles/Vol] 137 mmol/L Normal 136-145 [facility] Comment on above: Performed By: #### B MP, CBC, ADIFF, GFR, ANEU, MG #### [address] [address] Total Protein 8.1 G/dL Normal 6.4-8.2 [facility] Comment on above: Performed By: #### B MP, CBC, ADIFF, GFR, ANEU, MG #### [place] [address] [place], [place] [address] Urea nitrogen [Mass/Vol] 11 mg/dL Normal 7-18 [facility] Comment on above: Performed By: #### B MP, CBC, ADIFF, GFR, ANEU, MG #### [address] [address] [address] ABD/PELVIS W/ IV CONTRAST ONLYon 05-15-2024 CT ABD/PELVIS W/ IV CONTRAST ONLY ADDENDUM ADDENDUM: Findings discussed with Alexandra Palafox MD at 1:28 pm Interpreted by: Jammie Moya Preliminary Report By: Jammie Moya Electronically signed By Jammie Moya Dictated Date: 05/15/2024 1:27:17 PM Prelim Date: 05/15/2024 1:29:18 PM Sign Date: 05/15/2024 1:29:18 PM Ordering Provider: ALEXANDRA PALAFOX ORIGINAL EXAMINATION: CT OF THE CHEST WITHOUT CONTRAST; CT OF THE ABDOMEN AND PELVIS WITH CONTRAST 05/15/2024 12:57 pm; 05/15/2024 12:58 pm TECHNIQUE: CT of the chest was performed without the administration of intravenous contrast. Multiplanar reformatted images are provided for review. Automated exposure control, iterative reconstruction, and/or weight based adjustment of the mA/kV was utilized to reduce the radiation dose to as low as reasonably achievable.; CT of the abdomen and pelvis was performed with the administration of intravenous contrast. Multiplanar reformatted images are provided for review. Automated exposure control, iterative reconstruction, and/or weight based adjustment of the mA/kV was utilized to reduce the radiation dose to as low as reasonably achievable. COMPARISON: None. HISTORY: ORDERING SYSTEM PROVIDED HISTORY: Reason for Exam: pain; trauma patient FINDINGS: Mediastinum: Partially visualized thyroid gland is within normal limits on CT. Multi station subcentimeter mediastinal adenopathy. Calcified subcarinal and left hilar adenopathy, sequela prior granulomatous infection. No pathologically enlarged axillary adenopathy. The aorta is ectatic measuring up to 3.8 cm. The main pulmonary artery is normal in caliber. The heart is normal in size. There is no pericardial effusion. Contrast opacification of the main pulmonary artery is below limits for diagnostic evaluation for pulmonary embolus. Lungs/pleura: Airways are patent. Trivial right pleural fluid. Right more than left bibasilar atelectasis. No focal consolidations. Small right pneumothorax. Left apical emphysema. No pulmonary masses. Liver: Unremarkable. Patent hepatic vasculature. Gallbladder: Normal. Biliary system: No significant intrahepatic or extrahepatic biliary dilatation. Adrenal glands: Indeterminate right adrenal gland medial limb nodule measuring 2.8 x 1.7 cm and 1.7 cm lateral limb nodule. Fat density 1.0 cm left adrenal gland nodule consistent with a left adrenal adenoma.. Spleen: Normal size. Multiple calcifications related to sequela of prior granulomatous infection. Pancreas: Normal. No ductal dilatation. Kidneys/Ureters: Orthotopic. No hydronephrosis. No hydroureter. No calculi. Nonspecific bilateral perinephric fat stranding. Stomach:Normal, allowing for degree of distention. Bowel: No bowel wall thickening. Normal appendix. Diffuse air-filled dilation of the colon. Mildly dilated small bowel loops with air-fluid levels. Peritoneum:No ascites. No pneumoperitoneum. Urinary Bladder: Normal. Reproductive: Prostate is enlarged multiple prostatic calcifications, correlate with PSA and LILLIE. Soft Tissues: Normal. Vasculature: Mild diffuse calcified atherosclerosis. Lymphadenopathy: No significant lymphadenopathy by size criteria. Bones: Acute minimally displaced fractures of the right posterior 8th through 11th ribs. Chronic fracture deformities of the left 7th, 8th and 9th lateral ribs. Question nondisplaced fracture of the right 12th rib. Question nondisplaced fracture of the right L1 transverse process (series 4, image 47). Multilevel lumbar spondylosis. Chronic L5 left pars fracture deformity. . IMPRESSION: Small right pneumothorax. Multiple mildly displaced fractures of the right posterior 8th through 11th ribs with questionable right 12th rib fracture. Question nondisplaced fracture of the right L1 transverse process. Trivial right pleural fluid, hydropneumothorax. Diffuse air-filled dilation of the colon in multiple mildly dilated small bowel loops with air-fluid levels, correlate clinically for ileus. INCIDENTAL FINDINGS INCLUDE Indeterminate medial an lateral limb right adrenal gland nodules as detailed above. Ectatic aorta measuring up to 3.8 cm. Enlarged prostate. Interpreted by: Jammie Moya Preliminary Report By: Jammie Moya Electronically signed By Jammie Moya Dictated Date: 05/15/2024 1:03:15 PM Prelim Date: 05/15/2024 1:23:26 PM Sign Date: 05/15/2024 1:23:26 PM Ordering Provider: ALEXANDRA PALAFOX [facility] CT THORAX W/O CONTRASTon CT THORAX W/O CONTRAST ADDENDUM ADDENDUM: Findings discussed with Alexandra Palafox MD at 1:28 pm Interpreted by: Jammie Moya Preliminary Report By: Jammie Moya Electronically signed By Jammie Moya Dictated Date: 05/15/2024 1:27:17 PM Prelim Date: 05/15/2024 1:29:18 PM Sign Date: 05/15/2024 1:29:18 PM Ordering Provider: ALEXANDRA PALAFOX ORIGINAL EXAMINATION: CT OF THE CHEST WITHOUT CONTRAST; CT OF THE ABDOMEN AND PELVIS WITH CONTRAST 05/15/2024 12:57 pm; 05/15/2024 12:58 pm TECHNIQUE: CT of the chest was performed without the administration of intravenous contrast. Multiplanar reformatted images are provided for review. Automated exposure control, iterative reconstruction, and/or weight based adjustment of the mA/kV was utilized to reduce the radiation dose to as low as reasonably achievable.; CT of the abdomen and pelvis was performed with the administration of intravenous contrast. Multiplanar reformatted images are provided for review. Automated exposure control, iterative reconstruction, and/or weight based adjustment of the mA/kV was utilized to reduce the radiation dose to as low as reasonably achievable. COMPARISON: None. HISTORY: ORDERING SYSTEM PROVIDED HISTORY: Reason for Exam: pain; trauma patient FINDINGS: Mediastinum: Partially visualized thyroid gland is within normal limits on CT. Multi station subcentimeter mediastinal adenopathy. Calcified subcarinal and left hilar adenopathy, sequela prior granulomatous infection. No pathologically enlarged axillary adenopathy. The aorta is ectatic measuring up to 3.8 cm. The main pulmonary artery is normal in caliber. The heart is normal in size. There is no pericardial effusion. Contrast opacification of the main pulmonary artery is below limits for diagnostic evaluation for pulmonary embolus. Lungs/pleura: Airways are patent. Trivial right pleural fluid. Right more than left bibasilar atelectasis. No focal consolidations. Small right pneumothorax. Left apical emphysema. No pulmonary masses. Liver: Unremarkable. Patent hepatic vasculature. Gallbladder: Normal. Biliary system: No significant intrahepatic or extrahepatic biliary dilatation. Adrenal glands: Indeterminate right adrenal gland medial limb nodule measuring 2.8 x 1.7 cm and 1.7 cm lateral limb nodule. Fat density 1.0 cm left adrenal gland nodule consistent with a left adrenal adenoma.. Spleen: Normal size. Multiple calcifications related to sequela of prior granulomatous infection. Pancreas: Normal. No ductal dilatation. Kidneys/Ureters: Orthotopic. No hydronephrosis. No hydroureter. No calculi. Nonspecific bilateral perinephric fat stranding. Stomach:Normal, allowing for degree of distention. Bowel: No bowel wall thickening. Normal appendix. Diffuse air-filled dilation of the colon. Mildly dilated small bowel loops with air-fluid levels. Peritoneum:No ascites. No pneumoperitoneum. Urinary Bladder: Normal. Reproductive: Prostate is enlarged multiple prostatic calcifications, correlate with PSA and LILLIE. Soft Tissues: Normal. Vasculature: Mild diffuse calcified atherosclerosis. Lymphadenopathy: No significant lymphadenopathy by size criteria. Bones: Acute minimally displaced fractures of the right posterior 8th through 11th ribs. Chronic fracture deformities of the left 7th, 8th and 9th lateral ribs. Question nondisplaced fracture of the right 12th rib. Question nondisplaced fracture of the right L1 transverse process (series 4, image 47). Multilevel lumbar spondylosis. Chronic L5 left pars fracture deformity. . IMPRESSION: Small right pneumothorax. Multiple mildly displaced fractures of the right posterior 8th through 11th ribs with questionable right 12th rib fracture. Question nondisplaced fracture of the right L1 transverse process. Trivial right pleural fluid, hydropneumothorax. Diffuse air-filled dilation of the colon in multiple mildly dilated small bowel loops with air-fluid levels, correlate clinically for ileus. INCIDENTAL FINDINGS INCLUDE Indeterminate medial an lateral limb right adrenal gland nodules as detailed above. Ectatic aorta measuring up to 3.8 cm. Enlarged prostate. Interpreted by: Jammie Moya Preliminary Report By: Jammie Moya Electronically signed By Jammie Moya Dictated Date: 05/15/2024 1:03:15 PM Prelim Date: 05/15/2024 1:23:26 PM Sign Date: 05/15/2024 1:23:26 PM Ordering Provider: ALEXANDRA PALAFOX [facility] LABORATORYOrdered By: SYSTEM SYSTEM on 05-15-2024 Albumin BCP dye [Mass/Vol] 3.3 G/dL Low 3.4 - 4.8 G/dL AO ADM SS Albumin/Globulin [Mass ratio] 0.7 {ratio} Low 1.1 - 2.5 ratio AO ADM SS ALP [Catalytic activity/Vol] 121 U/L Normal 40 - 135 U/L AO ADM SS ALT With P-5'-P [Catalytic activity/Vol] 81 U/L High 16 - 63 U/L AO ADM SS aPTT Coag (PPP) [Time] 40.3 s High 25.0 - 35.0 seconds AO [facility] SS Comment on above: Interpretive Data: F or Heparin anticoagulation therapy, the recommended therapeutic range is: 45.4-75.9 seconds. Patients on heparin therapy may have an extreme result. AST With P-5'-P [Catalytic activity/Vol] 123 U/L High 10 - 40 U/L AO ADM SS Basophils (Bld) [#/Vol] 0.0 103/mcL Normal 0.0 - 0.2 10^3/mcL AO Workflow SS Basophils/100 WBC (Bld) 0.9 % Normal 0.0 - 2.5 % AO Workflow SS Bilirubin [Mass/Vol] 1.0 mg/dL Normal 0.2 - 1 .0 mg/dL AO ADM SS Comment on above: Interpretive Data: U se of this assay is not recommended for patients undergoing treatment with eltrombopag due to the potential for falsely elevated results. Calcium [Mass/Vol] 9.3 mg/dL Normal 8.4 - 10. 2 mg/dL AO ADM SS Chloride [Moles/Vol] 101 mmol/L Normal 98 - 10 7 mmol/L AO ADM SS CO2 [Moles/Vol] 27 mmol/L Normal 23 - 31 mmol/L AO ADM SS Creatinine [Mass/Vol] 0.85 mg/dL Normal 0.70 - 1.30 mg/dL AO ADM SS Comment on above: Interpretive Data: T esting performed on Siemens Dimension EXL analyzer using a modified kinetic Tri technique. Electrolyte Balance 9.0 mEq/L Normal 4.0 - 15 .0 mEq/L AO ADM SS Eosinophil, Absolute 0.0 103/mcL Normal 0.0 - 0 .7 10^3/mcL AO Workflow SS Eosinophils/100 WBC (Bld) 0.3 % Normal 0.0 - 7.0 % AO Workflow SS Erythrocyte distribution width (RBC) [Ratio] 14.8 % Normal 11.5 - 15.5 % AO Workflow SS Ethanol [Mass/Vol] mg/dL Normal 0 - 3 mg/dL AO ADM SS GFR/1.73 sq M.predicted among blacks MDRD (S/P/Bld) [Vol rate/Area] 110 ml/min/1.73sqm Invalid Interpretation Code AO Chemistry S Comment on above: Interpretive Data: GFR Population mean for , Non- Americans Ages 20-29 = 116 mL/min/1.73 sq.m. Ages 30-39 = 107 mL/min/1.73 sq.m. Ages 40-49 = 99 mL/min/1.73 sq.m. Ages 50-59 = 93 mL/min/1.73 sq.m. Ages 60-69 = 85 mL/min/1.73 sq.m. Ages 70+ = 75 mL/min/1.73 sq.m. Chronic Kidney Disease: Less than 60 mL/min/1.73 square meters End Stage Renal Disease: Less than 15 mL/min/1.73 square meters GFR/1.73 sq M.predicted among non-blacks MDRD (S/P/Bld) [Vol rate/Area] 91 ml/min/1.73sqm Invalid Interpretation Code AO Chemistry S Comment on above: Interpretive Data: GFR Population mean for , Non- Americans Ages 20-29 = 116 mL/min/1.73 sq.m. Ages 30-39 = 107 mL/min/1.73 sq.m. Ages 40-49 = 99 mL/min/1.73 sq.m. Ages 50-59 = 93 mL/min/1.73 sq.m. Ages 60-69 = 85 mL/min/1.73 sq.m. Ages 70+ = 75 mL/min/1.73 sq.m. Chronic Kidney Disease: Less than 60 mL/min/1.73 square meters End Stage Renal Disease: Less than 15 mL/min/1.73 square meters Globulin 4.8 G/dL Invalid Interpretation Code AO ADM SS Glucose [Mass/Vol] 105 mg/dL Normal 80 - 115 mg/dL AO ADM SS Hematocrit (Bld) [Volume fraction] 32.5 % Low 40.0 - 52.0 % AO Workflow SS Hemoglobin (Bld) [Mass/Vol] 10.9 G/dL Low 13.0 - 17.5 G/dL AO Workflow SS INR Coag (PPP) [Relative time] 1.1 {INR} Invalid Interpretation Code AO [facility] SS Comment on above: Interpretive Data: Paul is[employer] (CHEST, 1992, [id number]) recommended therapeutic range for oral anticoagulant therapy is: LOW RISK: Prophylaxis of venous thrombosis INR: 2.0-3.0 Treatment of pulmonary embolism 2.0-3.0 Prevention of systemic embolism 2.0-3.0 HIGH RISK: Mechanical prosthetic valves 2.5-3.5 Lymphocytes (Bld) [#/Vol] 1.1 103/mcL Normal 0.9 - 4.3 10^3/mcL AO Workflow SS Lymphocytes/100 WBC (Bld) 21.3 % Normal 20.0 - 40.0 % AO Workflow SS Magnesium [Mass/Vol] 1.6 mg/dL Low 1.8 - 2 .4 mg/dL AO ADM SS MCH (RBC) [Entitic mass] 35.2 pg High 27.0 - 33.0 pg AO Workflow SS MCHC 33.5 G/dL Normal 32.0 - 36.0 G/dL AO Workflow SS MCV (RBC) [Entitic vol] 105.0 fL High 81.0 - 100.0 fL AO Workflow SS Monocyte distribution width Auto (Bld) [Entitic vol] 21.81 1 High 0.00 - 20.00 AO Workflow SS Comment on above: Result Comment: For adults in ED, MDW>20.0 may be associated with a higher risk of sepsis during the first 12hrs of hospital admission Monocytes (Bld) [#/Vol] 0.6 103/mcL Normal 0.1 - 1.4 10^3/mcL AO Workflow SS Monocytes/100 WBC (Bld) 11.1 % Normal 2.0 - 13.0 % AO Workflow SS Neutrophils (Bld) [#/Vol] 3.5 103/mcL Normal 2.3 - 8.1 10^3/mcL AO Workflow SS Neutrophils/100 WBC (Bld) 66.4 % Normal 50.0 - 75.0 % AO Workflow SS Platelet mean volume (Bld) [Entitic vol] 7.6 fL Normal 6.4 - 10.5 fL AO Workflow SS Platelets (Bld) [#/Vol] 193 103/mcL Normal 150 - 450 10^3/mcL AO Workflow SS Potassium [Moles/Vol] 3.9 mmol/L Normal 3.5 - 5.1 mmol/L AO ADM SS Protein [Mass/Vol] 8.1 G/dL Normal 6.4 - 8.2 G/dL AO ADM SS PT Coag (PPP) [Time] 13.1 s Normal 9.0 - 1 4.4 seconds AO [facility] SS RBC (Bld) [#/Vol] 3.10 106/mcL Low 4.50 - 6.00 10^6/mcL AO Workflow SS Sodium [Moles/Vol] 137 mmol/L Normal 136 - 145 mmol/L AO ADM SS Urea nitrogen [Mass/Vol] 11 mg/dL Normal 7 - 18 mg/dL AO ADM SS Urea nitrogen/Creatinine [Mass ratio] 13 ratio Normal 7 - 27 ratio AO ADM SS WBC (Bld) [#/Vol] 5.2 103/mcL Normal 4.5 - 10.8 10^3/mcL AO Workflow SS LABORATORYOrdered By: Beatriz Lee on 05-15-2024 Amphetamines Screen Ql (U) Negative *NA* (05/15/24 11:10 AM) Invalid Interpretation Code Negative AO ADM SS Appearance (U) Clear (05/15/24 11:10 AM) Normal Clear AO Auto Urine SS Barbiturates Screen Ql (U) Negative *NA* (05/15/24 11:10 AM) Invalid Interpretation Code Negative AO ADM SS Benzodiazepines Ql (U) Negative *NA* (05/15/24 11:10 AM) Invalid Interpretation Code Negative AO ADM SS Benzoylecgonine Screen Ql (U) Negative *NA* (05/15/24 11:10 AM) Invalid Interpretation Code Negative AO ADM SS Bilirubin Ql (U) Negative (05/15/24 11:10 AM) Normal Negative AO Auto Urine SS Cannabinoids Screen Ql (U) Negative *NA* (05/15/24 11:10 AM) Invalid Interpretation Code Negative AO ADM SS Color (U) Yellow (05/15/24 11:10 AM) Normal AO Auto Urine SS Glucose Test strip (U) [Mass/Vol] Negative Normal Negative AO Auto Urine SS Hemoglobin Auto test strip (U) [Mass/Vol] Negative (05/15/24 11:10 AM) Normal Negative AO Auto Urine SS Ketones Ql (U) Negative Normal Negative AO Auto Urine SS Methadone Screen Ql (U) Negative *NA* (05/15/24 11:10 AM) Invalid Interpretation Code Negative AO ADM SS Opiates Screen Ql (U) Negative *NA* (05/15/24 11:10 AM) Invalid Interpretation Code Negative AO ADM SS Phencyclidine Ql (U) Negative *NA* (05/15/24 11:10 AM) Invalid Interpretation Code Negative AO ADM SS UA Leuk Est Negative (05/15/24 11:10 AM) Normal Negative AO Auto Urine SS UA Nitrite Negative (05/15/24 11:10 AM) Normal Negative AO Auto Urine SS UA pH 7.0 (05/15/24 11:10 AM) Normal 5.0 - 8.0 AO Auto Urine SS UA Protein Trace mg/dL Normal Negative AO Auto Urine SS UA Spec Grav 1.025 (05/15/24 11:10 AM) Normal 1.015-1.02 5 AO Auto Urine SS UA Specimen Type Clean Catch (05/15/24 11:10 AM) Normal AO Auto Urine SS UA Urobilinogen 2.0 E.U./dL Invalid Interpretation Code 0.2-1.0 AO Auto Urine SS Urine Drugs screened: See Below 6 (05/15/24 11:10 AM) Normal AO Chemistry S Comment on above: Interpretive Data: T his drug screen is a presumptive screening only. No confirmation will be performed unless requested. Drugs screened include: Threshold Amphetamines/Methamphetamines 1,000 ng/mL Barbiturates 200 ng/mL Benzodiazepine metabolites 200 ng/mL Cannabinoids (THC metabolites) 50 ng/mL Cocaine 300 ng/mL Opiates 300 ng/mL Methadone 300 ng/mL Phencyclidine (PCP) 25 ng/mL Testing has been performed FOR MEDICAL PURPOSES ONLY. MGon 05-15-2024 Magnesium [Mass/Vol] 1.6 mg/dL Low 1.8-2.4 [facility] Comment on above: Performed By: #### B MP, CBC, ADIFF, GFR, ANEU, MG #### [address] [address] PROon 05-15-2024 PT Coag (PPP) [Time] 13.1 s Normal 9.0-14.4 [facility] Comment on above: Performed By: #### B MP, CBC, ADIFF, GFR, ANEU, MG #### [address] [address] PT International Ratio 1.1 Normal [facility] Comment on above: Result Comment: [employer] (CHEST, 1992, [id number]) recommended therapeutic range for oral anticoagulant therapy is: LOW RISK: Prophylaxis of venous thrombosis INR: 2.0-3.0 Treatment of pulmonary embolism 2.0-3.0 Prevention of systemic embolism 2.0-3.0 HIGH RISK: Mechanical prosthetic valves 2.5-3.5 Performed By: #### B MP, CBC, ADIFF, GFR, ANEU, MG #### [address] [address] UAon 05-15-2024 Color (U) Yellow Normal [facility] Comment on above: Performed By: #### B MP, CBC, ADIFF, GFR, ANEU, MG #### [address] [address] Glucose (U) [Mass/Vol] Negative Normal Negative [facility] Comment on above: Performed By: #### B MP, CBC, ADIFF, GFR, ANEU, MG #### [address] [address] Ketones Ql (U) Negative Normal Negative [facility] Comment on above: Performed By: #### B MP, CBC, ADIFF, GFR, ANEU, MG #### [address] [address] UA Appear Clear Normal Clear [facility] Comment on above: Performed By: #### B MP, CBC, ADIFF, GFR, ANEU, MG #### [address] [address] UA Blood Negative Normal Negative [facility] Comment on above: Performed By: #### B MP, CBC, ADIFF, GFR, ANEU, MG #### [address] [address] UA Leuk Est Negative Normal Negative [facility] Comment on above: Performed By: #### B MP, CBC, ADIFF, GFR, ANEU, MG #### [place] [address] UA Nitrite Negative Normal Negative [facility] Comment on above: Performed By: #### B MP, CBC, ADIFF, GFR, ANEU, MG #### [place] [address] UA pH 7.0 Normal 5.0 - 8.0 [facility] Comment on above: Performed By: #### B MP, CBC, ADIFF, GFR, ANEU, MG #### [place] [address] UA Protein Trace Normal Negative [facility] Comment on above: Performed By: #### B MP, CBC, ADIFF, GFR, ANEU, MG #### [place] [address] UA Spec Grav 1.025 Normal 1.015-1.02 5 [facility] Comment on above: Performed By: #### B MP, CBC, ADIFF, GFR, ANEU, MG #### [place] [address] UA Specimen Type Clean Catch Normal [facility] Comment on above: Performed By: #### B MP, CBC, ADIFF, GFR, ANEU, MG #### [place] [address] UA Urobilinogen 2.0 E.U./dL Abnormal 0.2-1.0 [facility] Comment on above: Performed By: #### B MP, CBC, ADIFF, GFR, ANEU, MG #### [address] [address] Urobilinogen (U) [Mass/Vol] Negative Normal Negative [facility] Comment on above: Performed By: #### B MP, CBC, ADIFF, GFR, ANEU, MG #### [place] [address] UDRUGon 05-15-2024 Amphetamine (u) Negative Normal Negative [facility] Comment on above: Performed By: #### B MP, CBC, ADIFF, GFR, ANEU, MG #### [address] [address] Barbiturate (u) Negative Normal Negative [facility] Comment on above: Performed By: #### B MP, CBC, ADIFF, GFR, ANEU, MG #### [address] [address] Benzodiazepine (u) Negative Normal Negative [facility] Comment on above: Performed By: #### B MP, CBC, ADIFF, GFR, ANEU, MG #### [address] [address] Cannabinoid (u) Negative Normal Negative [facility] Comment on above: Performed By: #### B MP, CBC, ADIFF, GFR, ANEU, MG #### [address] [address] Cocaine Ql (U) Negative Normal Negative [facility] [facility] Comment on above: Performed By: #### B MP, CBC, ADIFF, GFR, ANEU, MG #### [address] [address] Methadone Ql (U) Negative Normal Negative [facility] Comment on above: Performed By: #### B MP, CBC, ADIFF, GFR, ANEU, MG #### [place] [address] Opiate (u) Negative Normal Negative [facility] Comment on above: Performed By: #### B MP, CBC, ADIFF, GFR, ANEU, MG #### [address] [address] PCP (u) Negative Normal Negative [facility] Comment on above: Performed By: #### B MP, CBC, ADIFF, GFR, ANEU, MG #### [place] [address] [place], [place] [address] Urine Drugs screened: See Below Normal [facility] Comment on above: Result Comment: This drug screen is a presumptive screening only. No confirmation will be performed unless requested. Drugs screened include: Threshold Amphetamines/Methamphetamines 1,000 ng/mL Barbiturates 200 ng/mL Benzodiazepine metabolites 200 ng/mL Cannabinoids (THC metabolites) 50 ng/mL Cocaine 300 ng/mL Opiates 300 ng/mL Methadone 300 ng/mL Phencyclidine (PCP) 25 ng/mL Testing has been performed FOR MEDICAL PURPOSES ONLY. Performed By: #### B MP, CBC, ADIFF, GFR, ANEU, MG #### [address] [address] XR CHEST 1 VIEWon 05-15-2024 XR CHEST 1 VIEW ORIGINAL EXAMINATION: ONE XRAY VIEW OF THE CHEST 05/15/2024 3:34 pm COMPARISON: None. HISTORY: ORDERING SYSTEM PROVIDED HISTORY: Reason for Exam: trauma IMPRESSION: Rotation to the left. Cardiomediastinal silhouette is within normal limits. Central pulmonary vascular congestion. No focal consolidations. Left costophrenic angle is sharp. Right costophrenic angle is sharp. Multiple right-sided rib fractures were better appreciated on same-day CT. Wires external to patient limited evaluation of the right lung apex, questionable pleural line in the right lung apex consistent with a tiny 4 mm right apical pneumothorax, the definite right pneumothorax is better appreciated on same-day CT. Interpreted by: Jammie Moya Preliminary Report By: Jammie Moya Electronically signed By Jammie Moya Dictated Date: 05/15/2024 3:41:30 PM Prelim Date: 05/15/2024 3:44:23 PM Sign Date: 05/15/2024 3:44:23 PM Ordering Provider: NATHANIEL CARUSO [facility] .Auto Diffon 03-29-2024 Basophil, Absolute 0.0 10 3/mcL Normal 0.0-0.3 [facility] ([place]) Comment on above: Performed By: #### C BC, LYNNE, MDW, CMP, GFR, DIFF, ALC, TROPHS #### [address] [address] Basophils/100 WBC (Bld) 0.9 % Normal 0.0-2.5 [facility] ([place]) Comment on above: Performed By: #### C BC, MORPH, MDW, CMP, GFR, DIFF, ALC, TROPHS #### [address] [address] Eosinophil, Absolute 0.0 10 3/mcL Normal 0.0-0.7 [facility] ([place]) Comment on above: Performed By: #### C BC, LYNNE, MDW, CMP, GFR, DIFF, ALC, TROPHS #### [address] [address] Eosinophils/100 WBC (Bld) 0.5 % Normal 0.0-6.0 [facility] ([place]) Comment on above: Performed By: #### C BC, LYNNE, MDW, CMP, GFR, DIFF, ALC, TROPHS #### [address] [address] Lymphocyte, Absolute 0.8 10 3/mcL Low 0.9-4.3 [facility] ([place] Comment on above: Performed By: #### C BC, LYNNE, MDW, CMP, GFR, DIFF, ALC, TROPHS #### [address] [address] Lymphocytes/100 WBC (Bld) 23.9 % Normal 20.0-40.0 [facility] ([place] Comment on above: Performed By: #### C BC, MORPH, MDW, CMP, GFR, DIFF, ALC, TROPHS #### [address] [address] Monocyte, Absolute 0.4 10 3/mcL Normal 0.1-1.4 [facility] ([place] Comment on above: Performed By: #### C KRISTI, LYNNE, MDW, CMP, GFR, DIFF, ALC, TROPHS #### [address] [address] Monocytes/100 WBC (Bld) 11.9 % Normal 2.0-13.0 [facility] ([place] Comment on above: Performed By: #### C BC, LYNNE, MDW, CMP, GFR, DIFF, ALC, TROPHS #### [address] [address] Neutrophils/100 WBC (Bld) 62.8 % Normal 50.0-75.0 [facility] ([place] Comment on above: Performed By: #### C BC, LYNNE, MDW, CMP, GFR, DIFF, ALC, TROPHS #### [address] [address] .GFRon 03-29-2024 GFR >60 Normal [facility] ([place]) Comment on above: Result Comment: GFR Population mean for , Non- Americans Ages 20-29 = 116 mL/min/1.73 sq.m. Ages 30-39 = 107 mL/min/1.73 sq.m. Ages 40-49 = 99 mL/min/1.73 sq.m. Ages 50-59 = 93 mL/min/1.73 sq.m. Ages 60-69 = 85 mL/min/1.73 sq.m. Ages 70+ = 75 mL/min/1.73 sq.m. Chronic Kidney Disease: Less than 60 mL/min/1.73 square meters End Stage Renal Disease: Less than 15 mL/min/1.73 square meters Performed By: #### C BC, MORPH, MDW, CMP, GFR, DIFF, ALC, TROPHS #### [address] [address] GFR Non- >60 Normal [facility] ([place]) Comment on above: Result Comment: GFR Population mean for , Non- Americans Ages 20-29 = 116 mL/min/1.73 sq.m. Ages 30-39 = 107 mL/min/1.73 sq.m. Ages 40-49 = 99 mL/min/1.73 sq.m. Ages 50-59 = 93 mL/min/1.73 sq.m. Ages 60-69 = 85 mL/min/1.73 sq.m. Ages 70+ = 75 mL/min/1.73 sq.m. Chronic Kidney Disease: Less than 60 mL/min/1.73 square meters End Stage Renal Disease: Less than 15 mL/min/1.73 square meters Performed By: #### C KRISTI, LYNNE, MDW, CMP, GFR, DIFF, ALC, TROPHS #### [address] [address] .MDWon 03-29-2024 Monocyte Distribution Width 24.00 High 0.00-20.00 [facility] ([place]) Comment on above: Result Comment: For adults in ED, MDW>20.0 may be associated with a higher risk of sepsis during the first 12hrs of hospital admission Performed By: #### C KRISTI, JOHNNIE BATISTA, CMP, GFR, DIFF, ALC, TROPHS #### [address] [address] .NEUABSon 03-29-2024 Neutrophil, Absolute 2.0 10 3/mcL Low 2.3-8.1 [facility] ([place]) Comment on above: Performed By: #### C KRISTI, LYNNE, MDW, CMP, GFR, DIFF, ALC, TROPHS #### [address] [address] Noemí 03-29-2024 Ammonia 23 mcmol/l Normal 11-32 [facility] ([place]) Comment on above: Order Comment: hemol yzed. 03/29/2024 20:30:43 EDT Performed By: #### C KRISTI, LYNNE, W, CMP, GFR, DIFF, ALC, TROPHS #### [address] [address] CBCon 03-29-2024 Erythrocyte distribution width (RBC) [Ratio] 16.1 % High 11.5-15.5 [facility] ([place]) Comment on above: Performed By: #### C BC, LYNNE, W, CMP, GFR, DIFF, ALC, TROPHS #### [address] [address] Hematocrit (Bld) [Volume fraction] 33.5 % Low 40.0-52.0 [facility] ([place]) Comment on above: Performed By: #### C BC, LYNNE, MDW, CMP, GFR, DIFF, ALC, TROPHS #### [address] [address] Hgb 11.4 G/dL Low 13.0-17.5 [facility] ([place]) Comment on above: Performed By: #### C BC, MORPH, MDW, CMP, GFR, DIFF, ALC, TROPHS #### [place] [id number] MCH (RBC) [Entitic mass] 36.8 pg High 27.0-33.0 [facility] ([place]) Comment on above: Performed By: #### C BC, LYNNE, MDW, CMP, GFR, DIFF, ALC, TROPHS #### [place] [address] MCHC 34.2 G/dL Normal 32.0-36.0 [facility] ([place]) Comment on above: Performed By: #### C BC, LYNNE, MDW, CMP, GFR, DIFF, ALC, TROPHS #### [address] [address] MCV (RBC) [Entitic vol] 107.7 fL High 81.0-100.0 [facility] ([place] Comment on above: Performed By: #### C BC, MORPH, MDW, CMP, GFR, DIFF, ALC, TROPHS #### [address] [address] Platelet 119 10 3/mcL Low 150-450 [facility] ([place]) Comment on above: Performed By: #### C BC, MORPH, MDW, CMP, GFR, DIFF, ALC, TROPHS #### [address] [address] Platelet mean volume (Bld) [Entitic vol] 8.9 fL Normal 6.4-10.5 [facility] ([place]) Comment on above: Performed By: #### C KRISTI, LYNNE, JOHNNIE, CMP, GFR, DIFF, ALC, TROPHS #### [address] [address] RBC 3.11 10 6/mcL Low 4.50-6.00 [facility] ([place]) Comment on above: Performed By: #### C KRISTI, LYNNE, W, CMP, GFR, DIFF, ALC, TROPHS #### [address] [address] WBC 3.1 10 3/mcL Low 4.5-10.8 [facility] ([place]) Comment on above: Performed By: #### C KRISTI, LYNNE, JOHNNIE, CMP, GFR, DIFF, ALC, TROPHS #### [address] [address] CKon 03-29-2024 CK [Catalytic activity/Vol] 42 U/L Normal 7-185 [facility] ([place]) Comment on above: Result Comment: Spec imen slightly hemolyzed. Performed By: #### C KRISTI, LYNNE, JOHNNIE, CMP, GFR, DIFF, ALC, TROPHS #### [address] [address] CMPon 03-29-2024 Albumin Level 3.2 G/dL Normal 3.2-4.8 [facility] ([place]) Comment on above: Performed By: #### C KRISTI, JOHNNIE BATISTA, CMP, GFR, DIFF, ALC, TROPHS #### [address] [address] Albumin/Globulin [Mass ratio] 0.7 {ratio} Low 0.9-1.6 [facility] ([place]) Comment on above: Performed By: #### C KRISTI, LYNNE, JOHNNIE, CMP, GFR, DIFF, ALC, TROPHS #### [address] [address] ALP [Catalytic activity/Vol] 129 U/L High 38-126 [facility] ([place]) Comment on above: Performed By: #### C BC, MORPH, MDW, CMP, GFR, DIFF, ALC, TROPHS #### [address] [address] ALT [Catalytic activity/Vol] 79 U/L High 12-55 [facility] ([place]) Comment on above: Performed By: #### C BC, MORPH, MDW, CMP, GFR, DIFF, ALC, TROPHS #### [address] [address] AST [Catalytic activity/Vol] 159 U/L High 8-34 [facility] ([place]) Comment on above: Performed By: #### C BC, MORPH, MDW, CMP, GFR, DIFF, ALC, TROPHS #### [address] [address] Bili Total 1.50 mg/dL High 0.20-1.20 [facility] ([place]) Comment on above: Result Comment: Use of this assay is not recommended for patients undergoing treatment with eltrombopag due to the potential for falsely elevated results. Performed By: #### C BC, MORPH, MDW, CMP, GFR, DIFF, ALC, TROPHS #### [address] [address] BUN/Creatinine Ratio 19.6 ratio Normal 10.0-22.0 [facility] ([place]) Comment on above: Performed By: #### C BC, MORPH, MDW, CMP, GFR, DIFF, ALC, TROPHS #### [address] [address] Calcium [Mass/Vol] 9.3 mg/dL Normal 8.7-10.4 [facility] ([place]) Comment on above: Performed By: #### C BC, MORPH, MDW, CMP, GFR, DIFF, ALC, TROPHS #### [address] [address] Chloride [Moles/Vol] 105 mmol/L Normal 98-110 [facility] ([place]) Comment on above: Performed By: #### C BC, MORPH, MDW, CMP, GFR, DIFF, ALC, TROPHS #### [place] [address] CO2 [Moles/Vol] 27 mmol/L Normal 22-32 [facility] ([place]) Comment on above: Performed By: #### C KRISTI, LYNNE, W, CMP, GFR, DIFF, ALC, TROPHS #### [address] [address] Creatinine [Mass/Vol] 0.51 mg/dL Low 0.60-1.40 [facility] ([place]) Comment on above: Performed By: #### C BC, LYNNE, MDW, CMP, GFR, DIFF, ALC, TROPHS #### [address] [address] Electrolyte Balance 6.0 mEq/L Normal 4.0-15.0 [facility] ([place]) Comment on above: Performed By: #### C BC, LYNNE, MDW, CMP, GFR, DIFF, ALC, TROPHS #### [address] [address] Globulin 4.7 G/dL High 1.5-3.8 [facility] ([place]) Comment on above: Performed By: #### C KRISTI, LYNNE, W, CMP, GFR, DIFF, ALC, TROPHS #### [address] [address] Glucose [Mass/Vol] 85 mg/dL Normal 82-115 [facility] ([place]) Comment on above: Performed By: #### C KRISTI, LYNNE, W, CMP, GFR, DIFF, ALC, TROPHS #### [address] [address] Potassium [Moles/Vol] 4.1 mmol/L Normal 3.5-5.0 [facility] ([place]) Comment on above: Result Comment: Spec imen slightly hemolyzed. Performed By: #### C BC, LYNNE, MDW, CMP, GFR, DIFF, ALC, TROPHS #### [address] [address] Sodium [Moles/Vol] 138 mmol/L Normal 136-145 [facility] ([place]) Comment on above: Performed By: #### C BC, LYNNE, MDW, CMP, GFR, DIFF, ALC, TROPHS #### [address] [address] Total Protein 7.9 G/dL Normal 5.7-8.2 [facility]) Comment on above: Result Comment: No te - New Reference Range in effect 20 Performed By: #### C BC, MORPH, MDW, CMP, GFR, DIFF, ALC, TROPHS #### [address] [address] Urea nitrogen [Mass/Vol] 10.0 mg/dL Normal 8.0-22.0 [facility]) Comment on above: Performed By: #### C BC, LYNNE, MDW, CMP, GFR, DIFF, ALC, TROPHS #### [address] [address] CVFLURVon 03-29-2024 FLU A PCR Negative Normal Negative [facility]) Comment on above: Result Comment: [place] [id number] Performed By: #### C KRISTI, LYNNE, MDW, CMP, GFR, DIFF, ALC, TROPHS #### [address] [address] FLU B PCR Negative Normal Negative [facility] ([place]) Comment on above: Result Comment: [place] [id number] Performed By: #### C BC, LYNNE, MDW, CMP, GFR, DIFF, ALC, TROPHS #### [address] [address] RSV PCR Negative Normal Negative [facility]) Comment on above: Result Comment: [place] s [id number] Performed By: #### C BC, LYNNE, MDW, CMP, GFR, DIFF, ALC, TROPHS #### [address] [address] SARS-CoV-2 (COVID-19) RNA VIVIANE+probe Ql (Unsp spec) Negative Normal Negative [facility]) Comment on above: Result Comment: Note s [id number] This test has been authorized by FDA under an EUA for use by authorized laboratories and has not been FDA cleared or approved. Results from the Xpert Xpress SARS-CoV-2/Flu/RSV or Xpert Xpress SARS-CoV-2 only test should be correlated with the clinical history, epidemiological data, and other data available to the clinician evaluating the patient. Performance of the Xpert Xpress SARS-CoV-2/Flu/RSV or Xpert Xpress SARS-CoV-2 only test has only been established in nasopharyngeal swab specimens. Erroneous test results might occur from improper specimen collection; failure to follow the recommended sample collection, handling, and storage procedures; technical error; or sample mix-up.False negative results may occur if virus is present at levels below the analytical limit of detection. Viral nucleic acid may persist in vivo, independent of virus viability. Detection of analyte target(s) does not imply that the corresponding virus(es) are infectious or are the causative agents for clinical symptoms.Recent patient exposure to FluMist or other live attenuated influenza vaccines may cause inaccurate positive results. Performed By: #### C LYNNE BERRY MDW, CMP, GFR, DIFF, ALC, TROPHS #### [place] [id number] DRUGSon 03-29-2024 Acetaminophen [Mass/Vol] 5.5 ug/mL Low 10.0-20.0 [facility] ([place]) Comment on above: Performed By: #### C LYNNE BERRY MDW, CMP, GFR, DIFF, ALC, TROPHS #### [address] [address] Ethanol Level <10.0 Normal [facility] ([place]) Comment on above: Performed By: #### C LYNNE BERRY MDW, CMP, GFR, DIFF, ALC, TROPHS #### [address] [address] Salicylate Lvl (ds) <3.0 Low 10.0-25.0 [facility] ([place]) Comment on above: Performed By: #### C LYNNE BERRY MDW, CMP, GFR, DIFF, ALC, TROPHS #### [address] [address] Serum Drugs screened: See Below Normal [facility] ([place]) Comment on above: Result Comment: This drug screen is a presumptive screening only. No confirmation will be performed unless requested. Drugs included in the ER serum drug screen are: Threshold Ethanol 10.0 mg/dL Salicylate 2.0 mg/dl Acetaminophen 2.0 mcg/mL Testing has been performed FOR MEDICAL PURPOSES ONLY. Performed By: #### C BC, MORPH, MDW, CMP, GFR, DIFF, ALC, TROPHS #### [place] [address] [address] DRUGUon 03-29-2024 Amphetamine (u) Negative Normal Negative [facility] ([place]) Comment on above: Performed By: #### Staci RUGU #### [address] [address] Barbiturate (u) Negative Normal Negative [facility] ([place]) Comment on above: Performed By: #### Staci RUGU #### [address] [address] Benzodiazepine (u) Negative Normal Negative [facility] ([place]) Comment on above: Performed By: #### Staci RUGU #### [address] [address] Cannabinoid (u) Negative Normal Negative [facility] ([place]) Comment on above: Performed By: #### Staci RUGU #### [address] [address] Cocaine Ql (U) Negative Normal Negative [facility] ([place]) Comment on above: Performed By: #### Staci RUGU #### [address] [address] Fentanyl (u) Negative Normal Negative [facility] ([place]) Comment on above: Result Comment: Test ing has been performed FOR MEDICAL PURPOSES ONLY. Performed By: #### Staci RUGU #### [address] [address] Methadone Ql (U) Negative Normal Negative [facility] ([place]) Comment on above: Performed By: #### Staci RUGU #### [address] [address] Opiate (u) Negative Normal Negative [facility] ([place]) Comment on above: Performed By: #### Staci RUGU #### [facility] [address] [place] [address] Oxycodone (u) Negative Normal Negative [facility] ([place] Comment on above: Result Comment: Test ing has been performed FOR MEDICAL PURPOSES ONLY. Performed By: #### D RUGU #### [address] [address] PCP (u) Negative Normal Negative [facility] ([place]) Comment on above: Performed By: #### D RUGU #### [address] [address] Propoxyphene (u) Negative Normal Negative [facility] ([place]) Comment on above: Performed By: #### D RUGU #### [address] [address] U pH Drug Scrn 6.0 Normal 5.0-8.0 [facility] ([place]) Comment on above: Performed By: #### D RUGU #### [place] [address] Urine Drugs screened: See Below Normal [facility] ([place] Comment on above: Result Comment: This drug screen is a presumptive screening only. No confirmation will be performed unless requested. Drugs screened include: Threshold Amphetamines/Methamphetamines 1,000 ng/mL Barbiturates 200 ng/mL Benzodiazepine metabolites 200 ng/mL Cannabinoids (THC metabolites) 50 ng/mL Benzoylecognine (Cocaine metab) 300 ng/mL Opiates 300 ng/mL Phencyclidine (PCP) 25 ng/mL Methadone 300 ng/mL Propoxyphene 300 ng/mL Fentanyl 1.0 ng/mL Oxycodone 100 ng/mL Testing has been performed FOR MEDICAL PURPOSES ONLY. Performed By: #### D RUGU #### [place] [address] LABORATORYOrdered By: Roslyn Canada on 03-29-2024 Appearance (U) Clear (03/29/24 8:58 PM) [facility] Work Phone: Bilirubin Urine Dipstick 3+ Large (Abnormal) (03/29/24 8:58 PM) [facility] Work Phone: Blood Urine Dipstick Negative (03/29/24 8:58 PM) [facility] Work Phone: Glucose Urine Dipstick Negative (03/29/24 8:58 PM) [facility] Work Phone: Ketones Urine Dipstick Trace (Abnormal) (03/29/24 8:58 PM) [facility] Work Phone: Leukocytes Urine Dipstick Negative (03/29/24 8:58 PM) [facility] Work Phone: Nitrite Urine Dipstick Negative (03/29/24 8:58 PM) [facility] Work Phone: pH Urine Dipstick 6.5 (03/29/24 8:58 PM) [facility] Work Phone: Protein Urine Dipstick 1+ (30mg/dl) (Abn ormal) (03/29/24 8:58 PM) [facility] Work Phone: Specific [place] Urine Dipstick 1.015 (03/29/24 8:58 PM) [facility] Work Phone: Urine Color Urine Dipstick Scarlet (Abnormal) (03/29/24 8:58 PM) [facility] Work Phone: Urobilinogen Urine Dipstick 4 mg/dl (Abnormal) (03/29/24 8:58 PM) [facility] Work Phone: LABORATORYOrdered By: George Bhatt on 03-29-2024 Amphetamines Screen Ql (U) Negative *NA* (03/29/24 8:47 PM) Invalid Interpretation Code Negative AH ADM SS Barbiturates Screen Ql (U) Negative *NA* (03/29/24 8:47 PM) Invalid Interpretation Code Negative AH ADM SS Benzodiazepines Ql (U) Negative *NA* (03/29/24 8:47 PM) Invalid Interpretation Code Negative AH ADM SS Benzoylecgonine Screen Ql (U) Negative *NA* (03/29/24 8:47 PM) Invalid Interpretation Code Negative AH ADM SS Cannabinoids Screen Ql (U) Negative *NA* (03/29/24 8:47 PM) Invalid Interpretation Code Negative AH ADM SS fentaNYL Screen Ql (U) Negative 2 *NA* (03/29/24 8:47 PM) Invalid Interpretation Code Negative AH ADM SS Comment on above: Interpretive Data: T esting has been performed FOR MEDICAL PURPOSES ONLY. Methadone Screen Ql (U) Negative *NA* (03/29/24 8:47 PM) Invalid Interpretation Code Negative AH ADM SS Opiates Screen Ql (U) Negative *NA* (03/29/24 8:47 PM) Invalid Interpretation Code Negative AH ADM SS oxyCODONE Ql (U) Negative 3 *NA* (03/29/24 8:47 PM) Invalid Interpretation Code Negative AH ADM SS Comment on above: Interpretive Data: T esting has been performed FOR MEDICAL PURPOSES ONLY. pH (U) 6.0 [pH] Normal 5.0 - 8.0 Chemistry S Phencyclidine Ql (U) Negative *NA* (03/29/24 8:47 PM) Invalid Interpretation Code Negative ADM SS Propoxyphene Screen Ql (U) Negative *NA* (03/29/24 8:47 PM) Invalid Interpretation Code Negative ADM SS Urine Drugs screened: See Below 10 (03/29/24 8:47 PM) Normal Chemistry S Comment on above: Interpretive Data: T his drug screen is a presumptive screening only. No confirmation will be performed unless requested. Drugs screened include: Threshold Amphetamines/Methamphetamines 1,000 ng/mL Barbiturates 200 ng/mL Benzodiazepine metabolites 200 ng/mL Cannabinoids (THC metabolites) 50 ng/mL Benzoylecognine (Cocaine metab) 300 ng/mL Opiates 300 ng/mL Phencyclidine (PCP) 25 ng/mL Methadone 300 ng/mL Propoxyphene 300 ng/mL Fentanyl 1.0 ng/mL Oxycodone 100 ng/mL Testing has been performed FOR MEDICAL PURPOSES ONLY. Acetaminophen [Mass/Vol] 5.5 ug/mL Low 10.0 - 20.0 mcg/mL AH ADM SS Ethanol [Mass/Vol] mg/dL Invalid Interpretation Code AH ADM SS Salicylates [Mass/Vol] mg/dL Low 10.0 - 25.0 mg/dL ADM SS Serum Drugs screened: See Below 9 (03/29/24 8:09 PM) Normal Chemistry S Comment on above: Interpretive Data: T his drug screen is a presumptive screening only. No confirmation will be performed unless requested. Drugs included in the ER serum drug screen are: Threshold Ethanol 10.0 mg/dL Salicylate 2.0 mg/dl Acetaminophen 2.0 mcg/mL Testing has been performed FOR MEDICAL PURPOSES ONLY. LABORATORYOrdered By: SYSTEM SYSTEM on 03-29-2024 Ammonia (P) [Moles/Vol] 23 umol/L Normal 11 - 32 mcmol/L AH ADM SS Albumin BCP dye [Mass/Vol] 3.2 G/dL Normal 3.2 - 4.8 G/dL AH ADM SS Albumin/Globulin [Mass ratio] 0.7 {ratio} Low 0.9 - 1.6 ratio AH ADM SS ALP [Catalytic activity/Vol] 129 U/L High 38 - 126 U/L ADM SS ALT No additional P-5'-P [Catalytic activity/Vol] 79 U/L High 12 - 55 U/L ADM SS AST [Catalytic activity/Vol] 159 U/L High 8 - 34 U/L ADM SS Bilirubin [Mass/Vol] 1.50 mg/dL High 0.20 - 1.20 mg/dL ADM SS Comment on above: Interpretive Data: U se of this assay is not recommended for patients undergoing treatment with eltrombopag due to the potential for falsely elevated results. Calcium [Mass/Vol] 9.3 mg/dL Normal 8.7 - 10. 4 mg/dL ADM SS Chloride [Moles/Vol] 105 mmol/L Normal 98 - 11 0 mEq/L ADM SS CK [Catalytic activity/Vol] 42 U/L Normal 7 - 185 U/L ADM SS Comment on above: Result Comment: Spec imen slightly hemolyzed. CO2 [Moles/Vol] 27 mmol/L Normal 22 - 32 mEq/L AH ADM SS Creatinine [Mass/Vol] 0.51 mg/dL Low 0.60 - 1.40 mg/dL ADM SS Electrolyte Balance 6.0 mEq/L Normal 4.0 - 15 .0 mEq/L ADM SS GFR/1.73 sq M.predicted among blacks MDRD (S/P/Bld) [Vol rate/Area] ml/min/1.73sqm Invalid Interpretation Code ADM SS Comment on above: Interpretive Data: GFR Population mean for , Non- Americans Ages 20-29 = 116 mL/min/1.73 sq.m. Ages 30-39 = 107 mL/min/1.73 sq.m. Ages 40-49 = 99 mL/min/1.73 sq.m. Ages 50-59 = 93 mL/min/1.73 sq.m. Ages 60-69 = 85 mL/min/1.73 sq.m. Ages 70+ = 75 mL/min/1.73 sq.m. Chronic Kidney Disease: Less than 60 mL/min/1.73 square meters End Stage Renal Disease: Less than 15 mL/min/1.73 square meters GFR/1.73 sq M.predicted among non-blacks MDRD (S/P/Bld) [Vol rate/Area] ml/min/1.73sqm Invalid Interpretation Code ADM SS Comment on above: Interpretive Data: GFR Population mean for , Non- Americans Ages 20-29 = 116 mL/min/1.73 sq.m. Ages 30-39 = 107 mL/min/1.73 sq.m. Ages 40-49 = 99 mL/min/1.73 sq.m. Ages 50-59 = 93 mL/min/1.73 sq.m. Ages 60-69 = 85 mL/min/1.73 sq.m. Ages 70+ = 75 mL/min/1.73 sq.m. Chronic Kidney Disease: Less than 60 mL/min/1.73 square meters End Stage Renal Disease: Less than 15 mL/min/1.73 square meters Globulin 4.7 G/dL High 1.5 - 3.8 G/dL ADM Glucose [Mass/Vol] 85 mg/dL Normal 82 - 115 mg/dL ADM SS Potassium [Moles/Vol] 4.1 mmol/L Normal 3.5 - 5.0 mEq/L ADM SS Comment on above: Result Comment: Spec imen slightly hemolyzed. Protein [Mass/Vol] 7.9 G/dL Normal 5.7 - 8.2 G/dL ADM SS Comment on above: Interpretive Data: * *Note - New Reference Range in effect 20 Sodium [Moles/Vol] 138 mmol/L Normal 136 - 145 mEq/L AH ADM SS Troponin I.cardiac DL <= 0.01 ng/mL [Mass/Vol] 6 ng/L Normal 0 - 54 ng/L ADM SS Comment on above: Interpretive Data: High Sensitive Troponin I Reference Ranges: Female: 0-34 ng/L Male: 0-54 ng/L Testing performed on Reachable analyzer using direct chemiluminescent technology. Urea nitrogen [Mass/Vol] 10.0 mg/dL Normal 8.0 - 22.0 mg/dL ADM SS Urea nitrogen/Creatinine [Mass ratio] 19.6 ratio Normal 10.0 - 22.0 ratio AH ADM SS Basophils (Bld) [#/Vol] 0.0 103/mcL Normal 0.0 - 0.3 10^3/mcL AH Workflow SS Basophils/100 WBC (Bld) 0.9 % Normal 0.0 - 2.5 % AH Workflow SS Eosinophils (Bld) [#/Vol] 0.0 103/mcL Normal 0.0 - 0.7 10^3/mcL AH Workflow SS Eosinophils/100 WBC (Bld) 0.5 % Normal 0.0 - 6.0 % AH Workflow SS Erythrocyte distribution width (RBC) [Ratio] 16.1 % High 11.5 - 15.5 % AH Workflow SS Hematocrit (Bld) [Volume fraction] 33.5 % Low 40.0 - 52.0 % AH Workflow SS Hemoglobin (Bld) [Mass/Vol] 11.4 G/dL Low 13.0 - 17.5 G/dL AH Workflow SS Lymphocytes (Bld) [#/Vol] 0.8 103/mcL Low 0.9 - 4.3 10^3/mcL AH Workflow SS Lymphocytes/100 WBC (Bld) 23.9 % Normal 20.0 - 40.0 % AH Workflow SS MCH (RBC) [Entitic mass] 36.8 pg High 27.0 - 33.0 pg AH Workflow SS MCHC 34.2 G/dL Normal 32.0 - 36.0 G/dL AH Workflow SS MCV (RBC) [Entitic vol] 107.7 fL High 81.0 - 100.0 fL AH Workflow SS Monocyte distribution width Auto (Bld) [Entitic vol] 24.00 1 High 0.00 - 20.00 AH Workflow SS Comment on above: Result Comment: For adults in ED, MDW>20.0 may be associated with a higher risk of sepsis during the first 12hrs of hospital admission Monocytes (Bld) [#/Vol] 0.4 103/mcL Normal 0.1 - 1.4 10^3/mcL AH Workflow SS Monocytes/100 WBC (Bld) 11.9 % Normal 2.0 - 13.0 % AH Workflow SS Neutrophils (Bld) [#/Vol] 2.0 103/mcL Low 2.3 - 8.1 10^3/mcL AH Workflow SS Neutrophils/100 WBC (Bld) 62.8 % Normal 50.0 - 75.0 % AH Workflow SS Platelet mean volume (Bld) [Entitic vol] 8.9 fL Normal 6.4 - 10.5 fL AH Workflow SS Platelets (Bld) [#/Vol] 119 103/mcL Low 150 - 450 10^3/mcL AH Workflow SS RBC (Bld) [#/Vol] 3.11 106/mcL Low 4.50 - 6.00 10^6/mcL AH Workflow SS WBC (Bld) [#/Vol] 3.1 103/mcL Low 4.5 - 10.8 10^3/mcL AH Workflow SS LABORATORYOrdered By: Camilo Castellanos on 03-29-2024 FLUAV RNA VIVIANE+probe Ql (Resp) Negative 13 (03/29/24 7:21 PM) Normal Negative AH Auto Viro/Sero SS Comment on above: Result Comment: [place] [id number] FLUBV RNA VIVIANE+probe Ql (Resp) Negative 14 (03/29/24 7:21 PM) Normal Negative AH Auto Viro/Sero SS Comment on above: Result Comment: [place] [id number] RSV PCR Negative 15 (03/29/24 7:21 PM) Normal Negative AH Auto Viro/Sero SS Comment on above: Result Comment: Note s [id number] SARS-CoV-2 (COVID-19) RNA VIVIANE+probe Ql (Resp) Negative 11, 12 (03/29/24 7:21 PM) Normal Negative AH Auto Viro/Sero SS Comment on above: Result Comment: Note s [id number] Interpretive Data: T his test has been authorized by FDA under an EUA for use by authorized laboratories and has not been FDA cleared or approved. Results from the Xpert Xpress SARS-CoV-2/Flu/RSV or Xpert Xpress SARS-CoV-2 only test should be correlated with the clinical history, epidemiological data, and other data available to the clinician evaluating the patient. Performance of the Xpert Xpress SARS-CoV-2/Flu/RSV or Xpert Xpress SARS-CoV-2 only test has only been established in nasopharyngeal swab specimens. Erroneous test results might occur from improper specimen collection; failure to follow the recommended sample collection, handling, and storage procedures; technical error; or sample mix-up.False negative results may occur if virus is present at levels below the analytical limit of detection. Viral nucleic acid may persist in vivo, independent of virus viability. Detection of analyte target(s) does not imply that the corresponding virus(es) are infectious or are the causative agents for clinical symptoms.Recent patient exposure to FluMist or other live attenuated influenza vaccines may cause inaccurate positive results. [facility] High Sensitivity Troponin I 6 ng/L Normal 0-54 [facility]) Comment on above: Result Comment: High Sensitive Troponin I Reference Ranges: Female: 0-34 ng/L Male: 0-54 ng/L Testing performed on Reachable analyzer using direct chemiluminescent technology. Performed By: #### C BC, MORPH, MDW, CMP, GFR, DIFF, ALC, TROPHS #### [place] [address] XR SHOULDER MINIMUM 2 VIEWS RIGHTon 02-14-2024 XR SHOULDER MINIMUM 2 VIEWS RIGHT ORIGINAL EXAMINATION: TWO XRAY VIEWS OF THE RIGHT SHOULDER 02/13/2024 10:19 am COMPARISON: Right shoulder x-ray on 07/18/2023. HISTORY: ORDERING SYSTEM PROVIDED HISTORY: Reason for Exam: pain FINDINGS: There is no fracture or dislocation. Mild degenerative findings at the glenohumeral joint and acromioclavicular joint of the right shoulder are unchanged. Adjacent right ribs are intact. IMPRESSION: Mild osteoarthritis of the right shoulder. Interpreted by: Luis Morales MD Preliminary Report By: Luis Morales MD Electronically signed By Luis Morales MD Dictated Date: 02/14/2024 1:48:41 AM Prelim Date: 02/14/2024 1:50:18 AM Sign Date: 02/14/2024 1:50:18 AM Ordering Provider: JASMINY REFERRING Normal [facility]) Absolute lymphocyte countOrd ered By: Papo Rodriguez on 12-25-2023 Lymphocytes Auto (Unsp spec) [#/Vol] 0.77 10*3/uL 0.83-4.51 [facility] Automated lymphocyte count a s percentage of total leukocytesOrdered By: Papo Rodriguez on 12-25-2023 Lymphocytes/100 WBC Auto (Unsp spec) 25.0 % 19-41 [facility] Basophil percentageOrdered B y: Papo Rodriguez on 12-25-2023 Basophils/100 WBC (Bld) 0.6 % 0-1 [facility] Bilirubin [Mass/Vol] 1.80 mg/dL 0.20-1.00 [facility] Comment on above: For patients on eltr ombopag therapy, use of Dimension [place] TBIL is not recommended. Chloride [Moles/Vol] 104 mmol/L 98-107 [facility] Eosinophils/100 WBC (Bld) 1.6 % 0-5 [facility] Glucose [Mass/Vol] 84 mg/dL 74-106 [facility] Hemoglobin (Bld) [Mass/Vol] 9.0 g/dL 13.0-16.5 [facility] Monocytes/100 WBC (Bld) 14.0 % 0-10 [facility] Neutrophils (Bld) [#/Vol] 1.8 10*3/uL 2.0-7.7 [facility] Neutrophils/100 WBC (Bld) 57.5 % 47-70 [facility] Potassium [Moles/Vol] 3.6 mmol/L 3.5-5.1 [facility] Protein [Mass/Vol] 6.6 g/dL 6.4-8.2 [facility] Sodium [Moles/Vol] 134 mmol/L 136-145 [facility] WBC (Bld) [#/Vol] 3.1 10*3/uL 4.4-11.0 [facility] Determination of erythrocyte mean corpuscular volume (MCV)Ordered By: Papo Rodriguez on 12-25-2023 MCV (RBC) [Entitic vol] 102.3 fL 80-94 [facility] Erythrocyte distribution wid th ratioOrdered By: Papo Rodriguez on 12-25-2023 Erythrocyte distribution width (RBC) [Ratio] 15.9 % 11.6-14.6 [facility] Erythrocyte distribution wid th standard deviationOrdered By: Papo Rodriguez on 12-25-2023 Erythrocyte distribution width (RBC) [Entitic vol] 59.7 fL 35.1-43.9 [facility] Hematocrit Auto (Bld) [Volum e fraction]Ordered By: Papo Rodriguez on 12-25-2023 Hematocrit (Bld) [Volume fraction] 26.9 % 40-54 [facility] Immature granulocytes/100 WB C Auto (Bld)Ordered By: Papo Rodriguez on 12-25-2023 Immature granulocytes/100 WBC (Bld) 1.300 % 0.0-0.9 [facility] Comment on above: IG% - Immature Granu locytes (promyelocytes, myelocytes and metamyelocytes) > 1% indicates that a LEFT SHIFT is Present. Laboratory - Chemistry and C hemistry - challengeOrdered By: Papo Rodriguez on 12-25-2023 Albumin/Globulin [Mass ratio] 0.6 {ratio} 0.9-2.4 [facility] ALP [Catalytic activity/Vol] 222 U/L 45-117 [facility] ALT [Catalytic activity/Vol] 124 U/L 16-61 [facility] CO2 [Moles/Vol] 25.0 mmol/L 21.0-32.0 [facility] Globulin (S) [Mass/Vol] 4.2 g/dL 2.2-4.2 [facility] Urea nitrogen/Creatinine [Mass ratio] 17.8 mg/mg 10-20 [facility] Laboratory - Hematology and Cell countsOrdered By: Papo Rodriguez on 12-25-2023 MCH (RBC) [Entitic mass] 34.2 pg 27.0-32.0 [facility] MCHC (RBC) [Mass/Vol] 33.5 g/dL 32-36 [facility] Nucleated RBC/100 WBC (Bld) [Ratio] 0 % 0-5 [facility] Platelet mean volume (Bld) [Entitic vol] 11.2 fL 6.2-12.0 [facility] Platelets (Bld) [#/Vol] 173 10*3/uL 150-450 [facility] No Panel InformationOrdered By: Papo Rodriguez on 12-25-2023 Estimated Creatinine Clearance Calc 170.90 ml/min [facility] Estimated GFR (MDRD) Amer 213 mL/min >60 [facility] Comment on above: GFR Calc Estimated GFR (MDRD) Non-Af Amer 176 mL/min >60 [facility] Comment on above: Non- GFR Calc RBC Auto (Bld) [#/Vol]Ordere d By: Papo Rodriguez on 12-25-2023 RBC (Bld) [#/Vol] 2.63 10*6/uL 4.6-6.2 [facility] Serum or plasma calcium josé miguel urement (mass/volume)Ordered By: Papo Rodriguez on 12-25-2023 Calcium [Mass/Vol] 8.4 mg/dL 8.5-10.1 [facility] Serum or plasma creatinine m easurement (mass/volume)Ordered By: Papo Rodriguez on 12-25-2023 Creatinine [Mass/Vol] 0.50 mg/dL 0.70-1.30 [facility] Comment on above: The validity of the calculated GFR & GFRAA in patients over 70 years has not been determined. Clinical correlation is essential. Serum or plasma urea nitroge n measurement (mass/volume)Ordered By: Papo Rodriguez on 12-25-2023 Urea nitrogen [Mass/Vol] 9 mg/dL 7-18 [facility] Thin prep Papanicolaou smear with manual screeningOrdered By: Papo Rodriguez on 12-25-2023 Thin prep Papanicolaou smear with manual screening 2.4 g/dL 3.2-5.0 [facility] Thin prep Papanicolaou smear with manual screening 217 U/L 15-37 [facility] Thin prep Papanicolaou smear with manual screening 5 5-15 [facility] Laboratory - Microbiology an d Antimicrobial susceptibilityOrdered By: Papo Rodriguez on 12-24-2023 SARS-CoV-2 (COVID-19) RNA VIVIANE+probe Ql (Unsp spec) [facility] Basophil percentageOrdered B y: Papo Rodriguez on 12-23-2023 Basophil percentage 2.9 mg/dL 2.5-4.9 [facility] Laboratory - Chemistry and C hemistry - challengeOrdered By: Papo Rodriguez on 12-23-2023 Magnesium [Mass/Vol] 1.5 mg/dL 1.6-2.6 [facility] Serum or plasma cortisol moustapha surement (mass/volume)Ordered By: Papo Rodriguez on 12-23-2023 Cortisol [Mass/Vol] 12.20 ug/dL 3.44-22.45 [facility] Comment on above: Adult (AM) 5.27 - 22 .45 ug/dL Adult (PM) 3.44 - 16.76 ug/dLPlease note revised CORTISOL reference range effective 2019. Laboratory - Chemistry and C hemistry - challengeOrdered By: Papo Rodriguez on 12-21-2023 Transferrin [Mass/Vol] 151 mg/dL 177-329 [facility] Comment on above: Performed at: [address] Director: Gary Peña PhD, Phone: [phone] Direct bilirubinOrdered By: Janet Erazo on 12-20-2023 Bilirubin.direct [Mass/Vol] 1.58 mg/dL 0.00-0.30 [facility] Blood platelet adequacy dete ction by light microscopyOrdered By: Taylor Kaur on 12-19-2023 Platelets LM Ql (Bld) MOD DEC ADEQ [facility] Culture, urineOrdered By: Jourdan Childs on 12-19-2023 Bacteria identified Cx Nom (U) Positive [facility] Iron measurement (mass/mass) Ordered By: Janet Erazo on 12-19-2023 Iron (Unsp spec) [Mass/Mass] 32 ug/dL 65-175 [facility] Laboratory - Chemistry and C hemistry - challengeOrdered By: Taylor Kaur on 12-19-2023 Cobalamin (Vitamin B12) [Mass/Vol] 851 pg/mL 211-911 [facility] Laboratory - Chemistry and C hemistry - challengeOrdered By: Janet Erazo on 12-19-2023 Ferritin [Mass/Vol] 3219 ng/mL 26-388 [facility] Laboratory - Microbiology an d Antimicrobial susceptibilityOrdered By: Brendan Childs on 12-19-2023 Bacteria identified Cx Nom (Bld) No growth in 5 days. [facility] No Panel InformationOrdered By: Taylor Kaur on 12-19-2023 Folate 2.60 ng/mL 3.1-55.4 [facility] Streptococcus pneumoniae Antigen (M [facility] No Panel InformationOrdered By: Janet Erazo on 12-19-2023 Total Iron Binding Capacity 192 ug/dL 250-450 [facility] Red blood cell stomatocyte d etectionOrdered By: Taylor Kaur on 12-19-2023 Stomatocytes LM Ql (Bld) 1+ [facility] Serum or plasma iron saturat ion measurement (mass fraction)Ordered By: Janet Erazo on 12-19-2023 Iron saturation [Mass fraction] 16.7 % 15.0-55.0 [facility] Target cell detectionOrdered By: Taylor Kaur on 12-19-2023 Target cells LM Ql (Bld) 2+ [facility] Urine Legionella pneumophila antigen detectionOrdered By: Taylor Kaur on 12-19-2023 L. pneumophila Ag Ql (U) [facility] Whole blood hemoglobin A1c/t otal hemoglobin ratio (mass fraction)Ordered By: Taylor Kaur on 12-19-2023 HbA1c (Bld) [Mass fraction] 4.9 % 3.8-5.6 [facility] Comment on above: Normal < 5.7 % Predi abetic 5.7 - 6.4 % Diabetic >or= 6.5 % Please note range changes. Absolute lymphocyte countOrd ered By: Brendan Childs on 12-18-2023 Lymphocytes Auto (Unsp spec) [#/Vol] 0.44 10*3/uL 0.83-4.51 [facility] Automated lymphocyte count a s percentage of total leukocytesOrdered By: Brendan Childs on 12-18-2023 Lymphocytes/100 WBC Auto (Unsp spec) 9.5 % 19-41 [facility] Basophil percentageOrdered B y: Brendan Childs on 12-18-2023 Basophil percentage 0-5 SEEN /hpf 0-5 [facility] Basophils/100 WBC (Bld) 0.2 % 0-1 [facility] Bilirubin [Mass/Vol] 2.70 mg/dL 0.20-1.00 [facility] Comment on above: For patients on eltr ombopag therapy, use of Dimension [place] TBIL is not recommended. Chloride [Moles/Vol] 93 mmol/L 98-107 [facility] Eosinophils/100 WBC (Bld) 0.0 % 0-5 [facility] Glucose [Mass/Vol] 131 mg/dL 74-106 [facility] Comment on above: Fasting Glucose resu lt greater than or equal to 126 mg/dL suggests DIABETES MELLITUS per A.D.A. criteria. Hemoglobin (Bld) [Mass/Vol] 10.3 g/dL 13.0-16.5 [facility] Lactate [Moles/Vol] 1.7 mmol/L 0.4-2.0 [facility] Monocytes/100 WBC (Bld) 12.5 % 0-10 [facility] Neutrophils (Bld) [#/Vol] 3.6 10*3/uL 2.0-7.7 [facility] Neutrophils/100 WBC (Bld) 76.9 % 47-70 [facility] Potassium [Moles/Vol] 3.4 mmol/L 3.5-5.1 [facility] Protein [Mass/Vol] 7.7 g/dL 6.4-8.2 [facility] Sodium [Moles/Vol] 134 mmol/L 136-145 [facility] WBC (Bld) [#/Vol] 4.6 10*3/uL 4.4-11.0 [facility] Basophil percentageOrdered B y: Taylor White on 12-18-2023 Basophil percentage 3.0 mg/dL 2.5-4.9 [facility] Bilirubin Test strip Ql (U)O rdered By: Brendan Childs on 12-18-2023 Bilirubin Ql (U) 6 mg/dL Negative [facility] Comment on above: COLOR OF URINE MAY A FFECT DIPSTICK RESULTS. Blood manual differential co mment interpretation (narrative result)Ordered By: Brendan Childs on 12-18-2023 Manual differential comment Deo (Bld) [Interp] SEE COMMENT [facility] Comment on above: LYMPHOPENIA NOTED Blood platelet adequacy dete ction by light microscopyOrdered By: Brendan Childs on 12-18-2023 Platelets LM Ql (Bld) ADEQUATE ADEQ [facility] Determination of erythrocyte mean corpuscular volume (MCV)Ordered By: Brendan Childs on 12-18-2023 MCV (RBC) [Entitic vol] 101.6 fL 80-94 [facility] Direct bilirubinOrdered By: Brendan Childs on 12-18-2023 Bilirubin.direct [Mass/Vol] 1.85 mg/dL 0.00-0.30 [facility] Erythrocyte distribution wid th ratioOrdered By: Brendan Childs on 12-18-2023 Erythrocyte distribution width (RBC) [Ratio] 14.8 % 11.6-14.6 [facility] Erythrocyte distribution wid th standard deviationOrdered By: Brendan Childs on 12-18-2023 Erythrocyte distribution width (RBC) [Entitic vol] 55.4 fL 35.1-43.9 [facility] Hematocrit Auto (Bld) [Volum e fraction]Ordered By: Brendan Childs on 12-18-2023 Hematocrit (Bld) [Volume fraction] 30.9 % 40-54 [facility] Hyaline casts LM.LPF (Urine sed) [#/Area]Ordered By: Brendan Childs on 12-18-2023 Hyaline casts (Urine sed) [#/Area] 10 /[LPF] 0-5 [facility] Hypochromatic red blood cell detectionOrdered By: Brendan Childs on 12-18-2023 Hypochromia Ql (Bld) 1+ [facility] Immature granulocytes/100 WB C Auto (Bld)Ordered By: Brendan Childs on 12-18-2023 Immature granulocytes/100 WBC (Bld) 0.900 % 0.0-0.9 [facility] Comment on above: IG% - Immature Granu locytes (promyelocytes, myelocytes and metamyelocytes) > 1% indicates that a LEFT SHIFT is Present. Ketones Test strip Ql (U)Ord ered By: Brendan Childs on 12-18-2023 Ketones Ql (U) 150 mg/dl Negative [facility] Comment on above: CRITICAL VALUE *HCRI TICAL VALUE VERIFIED. CALLED TO [id number]/03/24 Axel Lewis.RESULTS READ BACK BY SAME . Laboratory - Chemistry and C hemistry - challengeOrdered By: Brendan Childs on 12-18-2023 ALP [Catalytic activity/Vol] 198 U/L 45-117 [facility] ALT [Catalytic activity/Vol] 93 U/L 16-61 [facility] CO2 [Moles/Vol] 21.0 mmol/L 21.0-32.0 [facility] Globulin (S) [Mass/Vol] 4.7 g/dL 2.2-4.2 [facility] Lipase [Catalytic activity/Vol] 73 U/L 13-75 [facility] Comment on above: Please note:LIPASE r evised reference range effective 22. New Lipase methodology. Expected to produce lower values than the previous assay method. NEW Reference Range: 13 - 75 U/L Urea nitrogen/Creatinine [Mass ratio] 11.9 mg/mg 10-20 [facility] Laboratory - Chemistry and C hemistry - challengeOrdered By: Taylor Kaur on 12-18-2023 Magnesium [Mass/Vol] 1.2 mg/dL 1.6-2.6 [facility] Laboratory - Drug toxicology Ordered By: Brendan Childs on 12-18-2023 Amphetamines Ql (U) Negative <1000 ng/mL [facility] Benzodiazepines Ql (U) Negative < 200 ng/mL [facility] Cannabinoids Screen Ql (U) Negative < 50 ng/mL [facility] Cocaine Ql (U) Negative < 300 ng/mL [facility] Opiates Ql (U) Negative < 300 ng/mL [facility] Laboratory - Hematology and Cell countsOrdered By: Brendan Childs on 12-18-2023 Anisocytosis Ql (Bld) 1+ [facility] MCH (RBC) [Entitic mass] 33.9 pg 27.0-32.0 [facility] MCHC (RBC) [Mass/Vol] 33.3 g/dL 32-36 [facility] Nucleated RBC/100 WBC (Bld) [Ratio] 0 % 0-5 [facility] Platelet mean volume (Bld) [Entitic vol] 11.6 fL 6.2-12.0 [facility] Laboratory - Microbiology an d Antimicrobial susceptibilityOrdered By: Brendan Childs on 12-18-2023 SARS-CoV-2 (COVID-19) RNA VIVIANE+probe Ql (Unsp spec) [facility] Macrocytes detectionOrdered By: Brendan Childs on 12-18-2023 Macrocytes Ql (Bld) 1+ [facility] Mucus LM Ql (Urine sed)Order ed By: Brendan Childs on 12-18-2023 Mucus Ql (Urine sed) 0 SEEN /hpf [facility] Nitrite Test strip Ql (U)Ord ered By: Brendan Childs on 12-18-2023 Nitrite Ql (U) Positive Negative [facility] No Panel InformationOrdered By: Brendan Childs on 12-18-2023 MDMA (Ecstasy) Screen Negative < 500 ng/mL [facility] Urine Barbiturates Screen Negative < 200 ng/mL [facility] Urine Drug Screen Comment [facility] Comment on above: CONFIRMATORY TESTING FOR ALL POSITIVE URINE DRUG SCREENRESULTS WILL ONLY BE SENT OUT UPON PHYSICIAN ORDER. VISTA Urine Drug Screen methods provide only preliminaryanalytical test results. A more specific alternate chemicalmethod must be used in order to obtain a confirmedanalytical result. Gas chromatography/mass spectrometery(GC/MS) is the preferred confirmatory method. Clinicalconsideration and professional judgement should be appliedto any drug of abuse test result, particularly whenpreliminary positive results are used. URINE TCA TESTING MUST BE ORDERED SEPARATELY. USE TESTMNEMONIC: [facility] Urine Methadone Screen Negative < 300 ng/mL [facility] Urine RBC 0 SEEN /hpf 0-5 [facility] Estimated Creatinine Clearance Calc 84.53 ml/min [facility] Estimated GFR (MDRD) Amer 96 mL/min >60 [facility] Comment on above: GFR Calc Estimated GFR (MDRD) Non-Af Amer 79 mL/min >60 [facility] Comment on above: Non- GFR Calc Ethyl Alcohol Level 4.0 mg/dL [facility] Comment on above: The serum:whole bloo d ethanol ratio is approximately 1.14and varies slightly with hematocrit. Medical Alcohol reference interval and critical value innon-tolerant individuals; 50 - 100 Impairment 100 Intoxication 100 - 250 Severe Poisoning 250 - 400 Deep/possible fatal coma Platelet Count TNP [facility] Comment on above: Test not performedPl ease note: For this sample, a platelet estimate is provided rather than a platelet count due to platelet clumping. Other parameters associated with this sample are not affected by platelet clumping. If a more accurate platelet count is required, a redraw of the patient will be necessary.Previous reported result: 83 [id number] by: JANNETTE on 12/18/23:2318 Troponin I High Sensitivity 18 pg/mL 3.0-78.0 [facility] Comment on above: Please Note: New Theresa t Units and Gender Specific Reference Ranges. For more information see Policy Stat Procedure [place] High Sensitivity Troponin (TNIH) and attachments. Ovalocyte detectionOrdered B y: Brendan Childs on 12-18-2023 Ovalocytes LM Ql (Bld) RARE [facility] Protein Test strip Ql (U)Ord ered By: Brendan Childs on 12-18-2023 Protein Ql (U) 500 mg/dl Negative [facility] RBC Auto (Bld) [#/Vol]Ordere d By: Brendan Childs on 12-18-2023 RBC (Bld) [#/Vol] 3.04 10*6/uL 4.6-6.2 [facility] RBC morphologyOrdered By: Jourdan Childs on 12-18-2023 RBC morphology finding Nom (Bld) N CHROM NORMAL NORM C&C [facility] Serum or plasma acetone josé miguel urement (mass/volume)Ordered By: Taylor White on 12-18-2023 Acetone [Mass/Vol] SMALL NEG [facility] Serum or plasma calcium josé miguel urement (mass/volume)Ordered By: Brendan Childs on 12-18-2023 Calcium [Mass/Vol] 8.8 mg/dL 8.5-10.1 [facility] Serum or plasma creatinine m easurement (mass/volume)Ordered By: Brendan Childs on 12-18-2023 Creatinine [Mass/Vol] 1.01 mg/dL 0.70-1.30 [facility] Comment on above: The validity of the calculated GFR & GFRAA in patients over 70 years has not been determined. Clinical correlation is essential. Serum or plasma urea nitroge n measurement (mass/volume)Ordered By: Brendan Childs on 12-18-2023 Urea nitrogen [Mass/Vol] 12 mg/dL 7-18 [facility] Serum procalcitonin measurem entOrdered By: Taylor Kaur on 12-18-2023 Procalcitonin [Mass/Vol] 0.27 ng/mL 0.00-0.09 [facility] Comment on above: A procalcitonin (PCT ) level above 2.0 ng/mL on the first day of ICU admission is associated with a high risk for progression to severe sepsis and/or septic shock. A PCT level below 0.5 ng/mL on the first day of ICU admission is associated with a low risk for progression to severe and/or septic shock. Note: Concentrations <0.5 ng/mL do not exclude an infection on account of localized infections (without systemic signs) which can be associated with such low concentrations, or a systemic infection in its initial stages (<6 hours). Furthermore, increased procalcitonin can occur without infection. PCT concentrations between 0.5 and 2.0 ng/mL should be interpreted taking into account the patient's history. It is recommended to retest PCT within 6-24 hours if any concentrations <2 ng/mL are obtained. Squamous epithelial cells de tection in urine sediment by light microscopyOrdered By: Brendan Childs on 12-18-2023 Epithelial cells.squamous LM Ql (Urine sed) 0 SEEN /hpf 0-5 [facility] Thin prep Papanicolaou smear with manual screeningOrdered By: Brendan Childs on 12-18-2023 Thin prep Papanicolaou smear with manual screening 3.0 g/dL 3.2-5.0 [facility] Thin prep Papanicolaou smear with manual screening 295 U/L 15-37 [facility] Thin prep Papanicolaou smear with manual screening 20 5-15 [facility] Urine blood detectionOrdered By: Brendan Childs on 12-18-2023 RBC Ql (U) 25 /ul Negative [facility] Urine clarityOrdered By: Mateus Childs on 12-18-2023 Clarity (U) Clear Clear [facility] Urine color determinationOrd ered By: Brendan Childs on 12-18-2023 Color (U) Scarlet Yellow [facility] Urine glucose detectionOrder ed By: Brendan Childs on 12-18-2023 Glucose Ql (U) Normal mg/dl Normal [facility] Urine leukocyte esterase det ection by dipstickOrdered By: Brendan Childs on 12-18-2023 Leukocyte esterase Test strip Ql (U) 25 /ul Negative [facility] Urine pHOrdered By: Brendan so on 12-18-2023 pH (U) 6.0 [pH] 5.0 - 8.0 [facility] Urine phencyclidine (PCP) de tectionOrdered By: Brendan Childs on 12-18-2023 Phencyclidine Ql (U) Negative < 25 ng/mL [facility] Urine sediment bacteria coun t by microscopy (number/high power field)Ordered By: Brendan Childs on 12-18-2023 Bacteria LM.HPF (Urine sed) [#/Area] 0 /[HPF] None Seen [facility] Urine specific gravity measu rementOrdered By: Brendan Childs on 12-18-2023 Specific gravity (U) [Rel density] 1.020 1.002-1.03 0 [facility] Urine urobilinogen measureme ntOrdered By: Brendan Childs on 12-18-2023 Urobilinogen Ql (U) 12 mg/dl Normal [facility] .GFRon 11-01-2023 GFR 230 ml/min/1.73sqm Normal [facility] ([place]) Comment on above: Result Comment: GFR Population mean for , Non- Americans Ages 20-29 = 116 mL/min/1.73 sq.m. Ages 30-39 = 107 mL/min/1.73 sq.m. Ages 40-49 = 99 mL/min/1.73 sq.m. Ages 50-59 = 93 mL/min/1.73 sq.m. Ages 60-69 = 85 mL/min/1.73 sq.m. Ages 70+ = 75 mL/min/1.73 sq.m. Chronic Kidney Disease: Less than 60 mL/min/1.73 square meters End Stage Renal Disease: Less than 15 mL/min/1.73 square meters Performed By: #### C BC, MORPH, MDW, CMP, GFR, DIFF, ALC, TROPHS #### [place] [address] GFR Non- 190 ml/min/1.73sqm Normal [facility] ([place]) Comment on above: Result Comment: GFR Population mean for , Non- Americans Ages 20-29 = 116 mL/min/1.73 sq.m. Ages 30-39 = 107 mL/min/1.73 sq.m. Ages 40-49 = 99 mL/min/1.73 sq.m. Ages 50-59 = 93 mL/min/1.73 sq.m. Ages 60-69 = 85 mL/min/1.73 sq.m. Ages 70+ = 75 mL/min/1.73 sq.m. Chronic Kidney Disease: Less than 60 mL/min/1.73 square meters End Stage Renal Disease: Less than 15 mL/min/1.73 square meters Performed By: #### C BC, MORPH, MDW, CMP, GFR, DIFF, ALC, TROPHS #### [place] [id number] .MDWon 11-01-2023 Monocyte Distribution Width See Comment Normal 0.00-20.00 [facility] ([place]) Comment on above: Result Comment: The MDW result could not be reported due to a sample abnormality that prevents the MDW from being calculated. Performed By: #### C BC, MORPH, MDW, CMP, GFR, DIFF, ALC, TROPHS #### [address] [address] .Manual Diffon 11-01-2023 Bands 4.0 % Normal 0.0-5.0 [facility] ([place]) Comment on above: Performed By: #### C BC, MORPH, MDW, CMP, GFR, DIFF, ALC, TROPHS #### [address] [address] Basophil %, Manual 2.0 % Normal 0.0-2.5 [facility] ([place]) Comment on above: Performed By: #### C BC, MORPH, MDW, CMP, GFR, DIFF, ALC, TROPHS #### [place] [id number] Basophil, Abs Manual 0.0 10 3/mcL Normal 0.0-0.2 [facility] ([place]) Comment on above: Performed By: #### C BC, MORPH, MDW, CMP, GFR, DIFF, ALC, TROPHS #### [address] [address] Eosinophil %, Manual 2.0 % Normal 0.0-7.0 [facility] ([place]) Comment on above: Performed By: #### C BC, MORPH, MDW, CMP, GFR, DIFF, ALC, TROPHS #### [address] [address] Eosinophil, Abs Manual 0.1 10 3/mcL Normal 0.0-0.4 [facility] ([place]) Comment on above: Performed By: #### C BC, MORPH, MDW, CMP, GFR, DIFF, ALC, TROPHS #### [address] [address] Lymphocyte %, Manual 34.0 % Normal 10.0-50.0 [facility] ([place]) Comment on above: Performed By: #### C BC, MORPH, MDW, CMP, GFR, DIFF, ALC, TROPHS #### [address] [address] Lymphocyte, Abs Manual 0.8 10 3/mcL Normal 0.8-3.9 [facility] ([place]) Comment on above: Performed By: #### C BC, MORPH, MDW, CMP, GFR, DIFF, ALC, TROPHS #### [address] [address] Metamyelocyte 1.0 % Normal [facility] ([place]) Comment on above: Performed By: #### C BC, MORPH, MDW, CMP, GFR, DIFF, ALC, TROPHS #### [address] [address] Monocyte %, Manual 13.0 % Normal 1.7-13.0 [facility] ([place]) Comment on above: Performed By: #### C BC, MORPH, MDW, CMP, GFR, DIFF, ALC, TROPHS #### [address] [address] Monocyte, Abs Manual 0.3 10 3/mcL Normal 0.2-1.0 [facility] ([place]) Comment on above: Performed By: #### C BC, MORPH, MDW, CMP, GFR, DIFF, ALC, TROPHS #### [address] [address] Neutrophil %, Manual 44.0 % Normal 37.0-80.0 [facility] ([place]) Comment on above: Performed By: #### C BC, MORPH, MDW, CMP, GFR, DIFF, ALC, TROPHS #### [address] [address] Neutrophil, Abs Manual 1.1 10 3/mcL Low 2.9-6.2 [facility] ([place]) Comment on above: Performed By: #### C BC, MORPH, MDW, CMP, GFR, DIFF, ALC, TROPHS #### [place] [phone] Nucleated RBC 0.0 /100 WBC Normal [facility] ([place]) Comment on above: Performed By: #### C BC, LYNNE, MDW, CMP, GFR, DIFF, ALC, TROPHS #### [address] [address] .Morphon 11-01-2023 Anisocytosis Ql (Bld) 1+ Normal [facility] ([place]) Comment on above: Performed By: #### C BC, LYNNE, MDW, CMP, GFR, DIFF, ALC, TROPHS #### [address] [address] Large Platelets Few Normal [facility] ([place]) Comment on above: Performed By: #### C BC, LYNNE, MDW, CMP, GFR, DIFF, ALC, TROPHS #### [address] [address] Platelet Estimate Decreased Normal [facility] ([place]) Comment on above: Performed By: #### C BC, LYNNE, MDW, CMP, GFR, DIFF, ALC, TROPHS #### [address] [address] Stomatocytes 2+ Normal [facility] ([place]) Comment on above: Performed By: #### C KRISTI, JOHNNIE BATISTA, CMP, GFR, DIFF, ALC, TROPHS #### [address] [address] [place] 11-01-2023 Ethanol Level 389 mg/dL Critically abnormal 0-3 [facility] ([place]) Comment on above: Performed By: #### C KRISTI, LYNNE, JOHNNIE, CMP, GFR, DIFF, ALC, TROPHS #### [address] [address] CBCon 11-01-2023 Erythrocyte distribution width (RBC) [Ratio] 16.4 % High 11.5-14.5 [facility] ([place]) Comment on above: Performed By: #### C KRISTI, JOHNNIE BATISTA, CMP, GFR, DIFF, ALC, TROPHS #### [address] [address] Hematocrit (Bld) [Volume fraction] 36.2 % Low 42.0-52.0 [facility] ([place]) Comment on above: Performed By: #### C KRISTI, JOHNNIE BATISTA, CMP, GFR, DIFF, ALC, TROPHS #### [address] [address] Hgb 12.2 G/dL Low 14.0-18.0 [facility] ([place]) Comment on above: Performed By: #### C KRISTI, JOHNNIE BATISTA, CMP, GFR, DIFF, ALC, TROPHS #### [address] [address] MCH (RBC) [Entitic mass] 34.9 pg High 27.0-31.2 [facility] ([place]) Comment on above: Performed By: #### C KRISTI, JOHNNIE BATISTA, CMP, GFR, DIFF, ALC, TROPHS #### [address] [address] MCHC 33.8 G/dL Normal 31.8-35.4 [facility] ([place]) Comment on above: Performed By: #### C BC, MORPH, MDW, CMP, GFR, DIFF, ALC, TROPHS #### [address] [address] MCV (RBC) [Entitic vol] 103.3 fL High 80.0-94.0 [facility] ([place] Comment on above: Performed By: #### C BC, MORPH, MDW, CMP, GFR, DIFF, ALC, TROPHS #### [place] [address] Platelet 79 10 3/mcL Low 130-400 [facility] ([place]) Comment on above: Performed By: #### C BC, MORPH, MDW, CMP, GFR, DIFF, ALC, TROPHS #### [place] [phone] Platelet mean volume (Bld) [Entitic vol] 8.2 fL Normal 7.4-10.4 [facility] ([place]) Comment on above: Performed By: #### C BC, MORPH, MDW, CMP, GFR, DIFF, ALC, TROPHS #### [address] [address] RBC 3.50 10 6/mcL Low 4.04-6.13 [facility] ([place]) Comment on above: Performed By: #### C BC, MORPH, MDW, CMP, GFR, DIFF, ALC, TROPHS #### [place] [phone] WBC 2.4 10 3/mcL Low 4.6-10.8 [facility] ([place]) Comment on above: Performed By: #### C BC, MORPH, MDW, CMP, GFR, DIFF, ALC, TROPHS #### [place] [address] CKon 11-01-2023 CK [Catalytic activity/Vol] 122 U/L Normal 39-308 [facility] ([place]) Comment on above: Performed By: #### C K #### [place] [address] CMPon 11-01-2023 Albumin Level 3.2 G/dL Low 3.4-4.8 [facility] ([place]) Comment on above: Performed By: #### C KRISTI, LYNNE, MDW, CMP, GFR, DIFF, ALC, TROPHS #### [address] [address] Albumin/Globulin [Mass ratio] 0.8 {ratio} Low 1.1-2.5 [facility] ([place]) Comment on above: Performed By: #### C BC, LYNNE, MDW, CMP, GFR, DIFF, ALC, TROPHS #### [address] [address] ALP [Catalytic activity/Vol] 178 U/L High 40-135 [facility] ([place]) Comment on above: Performed By: #### C BC, LYNNE, MDW, CMP, GFR, DIFF, ALC, TROPHS #### [address] [address] ALT [Catalytic activity/Vol] 164 U/L High 16-63 [facility] ([place]) Comment on above: Performed By: #### C KRISTI, LYNNE, MDW, CMP, GFR, DIFF, ALC, TROPHS #### [address] [address] AST [Catalytic activity/Vol] 330 U/L High 10-40 [facility] ([place]) Comment on above: Performed By: #### C BC, LYNNE, MDW, CMP, GFR, DIFF, ALC, TROPHS #### [address] [address] Bili Total 1.0 mg/dL Normal 0.2-1.0 [facility] ([place]) Comment on above: Result Comment: Use of this assay is not recommended for patients undergoing treatment with eltrombopag due to the potential for falsely elevated results. Performed By: #### C BC, LYNNE, MDW, CMP, GFR, DIFF, ALC, TROPHS #### [address] [address] BUN/Creatinine Ratio 13 ratio Normal 7-27 [facility] ([place]) Comment on above: Performed By: #### C BC, MORPH, MDW, CMP, GFR, DIFF, ALC, TROPHS #### [address] [address] Calcium [Mass/Vol] 8.3 mg/dL Low 8.4-10.2 [facility] ([place]) Comment on above: Performed By: #### C BC, MORPH, MDW, CMP, GFR, DIFF, ALC, TROPHS #### [place] [address] Chloride [Moles/Vol] 105 mmol/L Normal 98-107 [facility] ([place]) Comment on above: Performed By: #### C BC, MORPH, MDW, CMP, GFR, DIFF, ALC, TROPHS #### [place] [address] CO2 [Moles/Vol] 27 mmol/L Normal 23-31 [facility] ([place]) Comment on above: Performed By: #### C BC, MORPH, MDW, CMP, GFR, DIFF, ALC, TROPHS #### [place] [address] Creatinine [Mass/Vol] 0.45 mg/dL Low 0.70-1.30 [facility] ([place]) Comment on above: Performed By: #### C BC, MORPH, MDW, CMP, GFR, DIFF, ALC, TROPHS #### [address] [address] Electrolyte Balance 11.0 mEq/L Normal 4.0-15.0 [facility] ([place]) Comment on above: Performed By: #### C BC, MORPH, MDW, CMP, GFR, DIFF, ALC, TROPHS #### [place] [address] Globulin 4.1 G/dL Normal [facility] ([place]) Comment on above: Performed By: #### C BC, MORPH, MDW, CMP, GFR, DIFF, ALC, TROPHS #### [place] [address] Glucose [Mass/Vol] 88 mg/dL Normal 80-115 [facility] ([place]) Comment on above: Performed By: #### C BC, MORPH, MDW, CMP, GFR, DIFF, ALC, TROPHS #### [address] [address] Potassium [Moles/Vol] 3.6 mmol/L Normal 3.5-5.1 [facility]) Comment on above: Performed By: #### C BC, MORPH, MDW, CMP, GFR, DIFF, ALC, TROPHS #### [address] [address] Sodium [Moles/Vol] 143 mmol/L Normal 136-145 [facility]) Comment on above: Performed By: #### C BC, MORPH, MDW, CMP, GFR, DIFF, ALC, TROPHS #### [address] [address] Total Protein 7.3 G/dL Normal 6.4-8.2 [facility]) Comment on above: Performed By: #### C BC, MORPH, MDW, CMP, GFR, DIFF, ALC, TROPHS #### [address] [address] Urea nitrogen [Mass/Vol] 6 mg/dL Low 7-18 [facility]) Comment on above: Performed By: #### C BC, MORPH, MDW, CMP, GFR, DIFF, ALC, TROPHS #### [address] [address] [address] HEAD OR BRAIN W/O CONTRAS Ton 11-01-2023 CT HEAD OR BRAIN W/O CONTRAST ORIGINAL EXAMINATION: CT OF THE HEAD WITHOUT CONTRAST 11/01/2023 8:20 pm TECHNIQUE: CT of the head was performed without the administration of intravenous contrast. Automated exposure control, iterative reconstruction, and/or weight based adjustment of the mA/kV was utilized to reduce the radiation dose to as low as reasonably achievable. COMPARISON: 09/16/2023. HISTORY: ORDERING SYSTEM PROVIDED HISTORY: Reason for Exam: fall/ams pt uncooperatived kept moving during scan best films possible Altered mental status FINDINGS: BRAIN/VENTRICLES: No definite evidence of acute intracranial hemorrhage, mass effect, midline shift, hydrocephalus, or acute large territorial infarction is identified. Scattered white matter hypodensities are nonspecific but statistically most consistent with mild chronic microvascular angiopathy. The ventricles are mildly enlarged with commensurate enlargement of the sulci most consistent with mild age-related volume loss. Carotid siphon calcifications are present. ORBITS: Bilateral lens replacement. SINUSES: The visualized paranasal sinuses and mastoid air cells demonstrate no acute abnormality. SOFT TISSUES/SKULL: No acute abnormality of the visualized skull or soft tissues. IMPRESSION: No acute intracranial abnormality. I have personally reviewed the images of this examination and agree with the resident's findings and interpretation. Interpreted by: Shamar Pedro Preliminary Report By: Ronen Bustillos Electronically signed By Shamar Pedro Dictated Date: 11/01/2023 8:21:31 PM Prelim Date: 11/01/2023 8:28:20 PM Sign Date: 11/01/2023 8:44:13 PM Ordering Provider: WANDY BROOKE [facility] ([place]) CT SPINE CERVICAL W/O CHARLENE [place] 11-01-2023 CT SPINE CERVICAL W/O CONTRAST ORIGINAL EXAMINATION: CT OF THE CERVICAL SPINE WITHOUT CONTRAST 11/01/2023 8:21 pm TECHNIQUE: CT of the cervical spine was performed without the administration of intravenous contrast. Multiplanar reformatted images are provided for review. Automated exposure control, iterative reconstruction, and/or weight based adjustment of the mA/kV was utilized to reduce the radiation dose to as low as reasonably achievable. COMPARISON: None. HISTORY: ORDERING SYSTEM PROVIDED HISTORY: Reason for Exam: Altered mental status FINDINGS: BONES/ALIGNMENT: There is no acute fracture or traumatic malalignment. DEGENERATIVE CHANGES: Multilevel degenerative changes of the spine. No high-grade spinal canal stenosis. SOFT TISSUES: Emphysema. Scattered subcentimeter nodularities the lung apices which could be correlated with any prior cross-sectional imaging, could be sequelae of infectious or inflammatory process. IMPRESSION: No acute fracture of the cervical spine. Interpreted by: Shamar Pedro Preliminary Report By: Shamar Pedro Electronically signed By Shamar Pedro Dictated Date: 11/01/2023 8:26:45 PM Prelim Date: 11/01/2023 8:34:45 PM Sign Date: 11/01/2023 8:34:45 PM Ordering Provider: WANDY Meeks [facility] ([place]) LABORATORYOrdered By: SYSTEM SYSTEM on 11-01-2023 Albumin BCP dye [Mass/Vol] 3.2 G/dL Low 3.4 - 4.8 G/dL AO ADM SS Albumin/Globulin [Mass ratio] 0.8 {ratio} Low 1.1 - 2.5 ratio AO ADM SS ALP [Catalytic activity/Vol] 178 U/L High 40 - 135 U/L AO ADM SS ALT With P-5'-P [Catalytic activity/Vol] 164 U/L High 16 - 63 U/L AO ADM SS Anisocytosis Ql (Bld) 1+ *NA* (11/01/23 7:22 PM) Invalid Interpretation Code AO Workflow SS AST With P-5'-P [Catalytic activity/Vol] 330 U/L High 10 - 40 U/L AO ADM SS Bands 4.0 % Normal 0.0 - 5.0 % AO Workflow SS Basophil %, Manual 2.0 % Normal 0.0 - 2.5 % AO Workflow SS Basophil, Abs Manual 0.0 103/mcL Normal 0.0 - 0 .2 10^3/mcL AO Workflow SS Bilirubin [Mass/Vol] 1.0 mg/dL Normal 0.2 - 1 .0 mg/dL AO ADM SS Comment on above: Interpretive Data: U se of this assay is not recommended for patients undergoing treatment with eltrombopag due to the potential for falsely elevated results. Calcium [Mass/Vol] 8.3 mg/dL Low 8.4 - 10. 2 mg/dL AO ADM SS Chloride [Moles/Vol] 105 mmol/L Normal 98 - 10 7 mmol/L AO ADM SS CK [Catalytic activity/Vol] 122 U/L Normal 39 - 308 U/L AO ADM SS CO2 [Moles/Vol] 27 mmol/L Normal 23 - 31 mmol/L AO ADM SS Creatinine [Mass/Vol] 0.45 mg/dL Low 0.70 - 1.30 mg/dL AO ADM SS Electrolyte Balance 11.0 mEq/L Normal 4.0 - 15 .0 mEq/L AO ADM SS Eosinophil %, Manual 2.0 % Normal 0.0 - 7 .0 % AO Workflow SS Eosinophils (Bld) [#/Vol] 0.1 103/mcL Normal 0.0 - 0.4 10^3/mcL AO Workflow SS Erythrocyte distribution width (RBC) [Ratio] 16.4 % High 11.5 - 14.5 % AO Workflow SS Ethanol [Mass/Vol] 389 mg/dL Invalid Interpretation Code 0 - 3 mg/dL AO ADM SS GFR/1.73 sq M.predicted among blacks MDRD (S/P/Bld) [Vol rate/Area] 230 ml/min/1.73sqm Invalid Interpretation Code AO Chemistry S Comment on above: Interpretive Data: GFR Population mean for , Non- Americans Ages 20-29 = 116 mL/min/1.73 sq.m. Ages 30-39 = 107 mL/min/1.73 sq.m. Ages 40-49 = 99 mL/min/1.73 sq.m. Ages 50-59 = 93 mL/min/1.73 sq.m. Ages 60-69 = 85 mL/min/1.73 sq.m. Ages 70+ = 75 mL/min/1.73 sq.m. Chronic Kidney Disease: Less than 60 mL/min/1.73 square meters End Stage Renal Disease: Less than 15 mL/min/1.73 square meters GFR/1.73 sq M.predicted among non-blacks MDRD (S/P/Bld) [Vol rate/Area] 190 ml/min/1.73sqm Invalid Interpretation Code AO Chemistry S Comment on above: Interpretive Data: GFR Population mean for , Non- Americans Ages 20-29 = 116 mL/min/1.73 sq.m. Ages 30-39 = 107 mL/min/1.73 sq.m. Ages 40-49 = 99 mL/min/1.73 sq.m. Ages 50-59 = 93 mL/min/1.73 sq.m. Ages 60-69 = 85 mL/min/1.73 sq.m. Ages 70+ = 75 mL/min/1.73 sq.m. Chronic Kidney Disease: Less than 60 mL/min/1.73 square meters End Stage Renal Disease: Less than 15 mL/min/1.73 square meters Globulin 4.1 G/dL Invalid Interpretation Code AO ADM SS Glucose [Mass/Vol] 88 mg/dL Normal 80 - 115 mg/dL AO ADM SS Hematocrit (Bld) [Volume fraction] 36.2 % Low 42.0 - 52.0 % AO Workflow SS Hemoglobin (Bld) [Mass/Vol] 12.2 G/dL Low 14.0 - 18.0 G/dL AO Workflow SS Large Platelets Few *NA* (11/01/23 7:22 PM) Invalid Interpretation Code AO Workflow SS Lymphocyte %, Manual 34.0 % Normal 10.0 - 50.0 % AO Workflow SS Lymphocyte, Abs Manual 0.8 103/mcL Normal 0.8 - 3.9 10^3/mcL AO Workflow SS MCH (RBC) [Entitic mass] 34.9 pg High 27.0 - 31.2 pg AO Workflow SS MCHC 33.8 G/dL Normal 31.8 - 35.4 G/dL AO Workflow SS MCV (RBC) [Entitic vol] 103.3 fL High 80.0 - 94.0 fL AO Workflow SS Metamyelocytes/100 WBC (Bld) 1.0 % Invalid Interpretation Code AO Workflow SS Monocyte %, Manual 13.0 % Normal 1.7 - 13. 0 % AO Workflow SS Monocyte distribution width Auto (Bld) [Entitic vol] See Comment Invalid Interpretation Code 0.00 - 20.00 AO Hematology S Comment on above: Result Comment: The MDW result could not be reported due to a sample abnormality that prevents the MDW from being calculated. Monocyte, Abs Manual 0.3 103/mcL Normal 0.2 - 1 .0 10^3/mcL AO Workflow SS Neutrophil %, Manual 44.0 % Normal 37.0 - 80.0 % AO Workflow SS Neutrophil, Abs Manual 1.1 103/mcL Low 2.9 - 6.2 10^3/mcL AO Workflow SS Nucleated RBC 0.0 /100 WBC Invalid Interpretation Code AO Workflow SS Platelet Estimate Decreased *NA* (11/01/23 7:22 PM) Invalid Interpretation Code AO Workflow SS Platelet mean volume (Bld) [Entitic vol] 8.2 fL Normal 7.4 - 10.4 fL AO Workflow SS Platelets (Bld) [#/Vol] 79 103/mcL Low 130 - 400 10^3/mcL AO Workflow SS Potassium [Moles/Vol] 3.6 mmol/L Normal 3.5 - 5.1 mmol/L AO ADM SS Protein [Mass/Vol] 7.3 G/dL Normal 6.4 - 8.2 G/dL AO ADM SS RBC (Bld) [#/Vol] 3.50 106/mcL Low 4.04 - 6.13 10^6/mcL AO Workflow SS Sodium [Moles/Vol] 143 mmol/L Normal 136 - 145 mmol/L AO ADM SS Stomatocytes 2+ *NA* (11/01/23 7:22 PM) Invalid Interpretation Code AO Workflow SS Troponin I.cardiac DL <= 0.01 ng/mL [Mass/Vol] 12 ng/L Normal 0 - 76 ng/L AO ADM SS Comment on above: Interpretive Data: H igh Sensitive Troponin I Reference Ranges: Female: 0-51 ng/L Male: 0-76 ng/L Testing performed on Dimension EXL using a homogeneous sandwich chemiluminescent immunoassay based on [employer] technology. Urea nitrogen [Mass/Vol] 6 mg/dL Low 7 - 18 mg/dL AO ADM SS Urea nitrogen/Creatinine [Mass ratio] 13 ratio Normal 7 - 27 ratio AO ADM SS WBC (Bld) [#/Vol] 2.4 103/mcL Low 4.6 - 10.8 10^3/mcL AO Workflow SS TROPHSon 11-01-2023 High Sensitivity Troponin I 12 ng/L Normal 0-76 [facility] ([place]) Comment on above: Result Comment: High Sensitive Troponin I Reference Ranges: Female: 0-51 ng/L Male: 0-76 ng/L Testing performed on Dimension EXL using a homogeneous sandwich chemiluminescent immunoassay based on [employer] technology. Performed By: #### C BC, MORPH, MDW, CMP, GFR, DIFF, ALC, TROPHS #### [address] [address] XR CHEST 1 VIEWon 11-01-2023 XR CHEST 1 VIEW ORIGINAL EXAMINATION: ONE XRAY VIEW OF THE CHEST 11/01/2023 8:17 pm COMPARISON: Radiograph of the ribs August 01, 2022. HISTORY: ORDERING SYSTEM PROVIDED HISTORY: Reason for Exam: Altered mental status FINDINGS: Cardiomediastinal silhouette is unchanged in size. Costophrenic angles are sharp. No radiographic pneumothorax. No focal consolidation. Degenerative changes of the shoulders and spine. IMPRESSION: No focal consolidation. Interpreted by: Shamar Pedro Preliminary Report By: Shamar Pedro Electronically signed By Shamar Pedro Dictated Date: 11/01/2023 8:23:20 PM Prelim Date: 11/01/2023 8:24:05 PM Sign Date: 11/01/2023 8:24:05 PM Ordering Provider: WANDY BROOKE [facility] ([place]) XR PELVIS 1 OR 2 VIEWSon XR PELVIS 1 OR 2 VIEWS ORIGINAL EXAMINATION: ONE XRAY VIEW OF THE PELVIS 11/01/2023 8:18 pm COMPARISON: None. HISTORY: ORDERING SYSTEM PROVIDED HISTORY: Reason for Exam: fall FINDINGS: No fracture or dislocation. Degenerative changes of the lumbosacral spine. IMPRESSION: No fracture or dislocation. Interpreted by: Shamar Pedro Preliminary Report By: Shamar Pedro Electronically signed By Shamar Pedro Dictated Date: 11/01/2023 8:24:14 PM Prelim Date: 11/01/2023 8:24:57 PM Sign Date: 11/01/2023 8:24:57 PM Ordering Provider: NATHANIEL CARUSO [facility] ([place]) CT HEAD OR BRAIN W/O CONTRAS Ton 09-17-2023 CT HEAD OR BRAIN W/O CONTRAST ORIGINAL EXAMINATION: CT OF THE HEAD WITHOUT CONTRAST 09/16/2023 1:54 pm TECHNIQUE: CT of the head was performed without the administration of intravenous contrast. Automated exposure control, iterative reconstruction, and/or weight based adjustment of the mA/kV was utilized to reduce the radiation dose to as low as reasonably achievable. COMPARISON: None. HISTORY: ORDERING SYSTEM PROVIDED HISTORY: Reason for Exam: Unilateral weakness FINDINGS: BRAIN/VENTRICLES: There is no acute intracranial hemorrhage, mass effect or midline shift. There is mild age-appropriate cerebral atrophy with evidence of chronic periventricular small vessel ischemic disease. No abnormal extra-axial fluid collection. The winters-white differentiation is maintained without evidence of an acute infarct. There is no evidence of hydrocephalus. ORBITS: The visualized portion of the orbits demonstrate no acute abnormality. SINUSES: The visualized paranasal sinuses and mastoid air cells demonstrate no acute abnormality. SOFT TISSUES/SKULL: No acute abnormality of the visualized skull or soft tissues. IMPRESSION: No acute intracranial abnormality. Mild senescent changes noted as above. Interpreted by: Jesus Manuel Rich MD Preliminary Report By: Jesus Manuel Rich MD Electronically signed By Jesus Manuel Rich MD Dictated Date: 09/17/2023 12:59:04 PM Prelim Date: 09/17/2023 12:59:39 PM Sign Date: 09/17/2023 12:59:39 PM Ordering Provider: JENNIFER VILLASEÑOR [facility] ([place]) [place] SHOULDER W/O CONTRAST RIG HTon 09-16-2023 CT SHOULDER W/O CONTRAST RIGHT ORIGINAL EXAMINATION: CT OF THE RIGHT SHOULDER WITHOUT CONTRAST 09/16/2023 12:52 pm TECHNIQUE: CT of the right shoulder was performed without the administration of intravenous contrast. Multiplanar reformatted images are provided for review. Automated exposure control, iterative reconstruction, and/or weight based adjustment of the mA/kV was utilized to reduce the radiation dose to as low as reasonably achievable. COMPARISON: Right shoulder radiographs 07/18/2023 for HISTORY ORDERING SYSTEM PROVIDED HISTORY: Reason for Exam: Right shoulder injury FINDINGS: Contour deformity is noted along the posterosuperior humeral head consistent with Hill-Sachs fracture. There is no osseous Bankart lesion. There is ill-defined calcification posterior to the proximal humeral diaphysis. The humeral head is normally positioned with respect of the glenoid. 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 The imaged portion of the lung is clear. IMPRESSION: Hill-Sachs fracture consistent with sequela from prior shoulder dislocation. Ill-defined calcification posterior to the proximal humeral diaphysis may represent dystrophic calcification or callus. Interpreted by: Preet Paredes Preliminary Report By: Preet Paredes Electronically signed By Preet Paredes Dictated Date: 09/16/2023 2:23:43 PM Prelim Date: 09/16/2023 2:33:00 PM Sign Date: 09/16/2023 2:33:00 PM Ordering Provider: JENNIFER VILLASEÑOR [facility] ([place]) .CBC Path Reviewon CBC Path Review Marked leukopenia an d moderate macrocytic anemia and thrombocytopenia noted, with absolute neutropenia and monocytopenia. Rule out liver disease. Rule out hypersplenism. Rule out nutritional deficiency. Rule out drug effect. Rule out bone marrow abnormality. Normal [facility] ([place]) Comment on above: Result Comment: Elec tronically signed by: YAN MEIER 09.08.2023 10:18 EST Performed By: #### C BC, MORPH, MDW, CMP, GFR, DIFF, ALC, TROPHS #### [address] [address] .GFRon 09-07-2023 GFR Non- 142 ml/min/1.73sqm Normal [facility] ([place]) Comment on above: Result Comment: GFR Population mean for , Non- Americans Ages 20-29 = 116 mL/min/1.73 sq.m. Ages 30-39 = 107 mL/min/1.73 sq.m. Ages 40-49 = 99 mL/min/1.73 sq.m. Ages 50-59 = 93 mL/min/1.73 sq.m. Ages 60-69 = 85 mL/min/1.73 sq.m. Ages 70+ = 75 mL/min/1.73 sq.m. Chronic Kidney Disease: Less than 60 mL/min/1.73 square meters End Stage Renal Disease: Less than 15 mL/min/1.73 square meters Performed By: #### C KRISTI, JOHNNIE BATISTA, CMP, GFR, DIFF, ALC, TROPHS #### [address] [address] GFR 172 ml/min/1.73sqm Normal [facility] ([place]) Comment on above: Result Comment: GFR Population mean for , Non- Americans Ages 20-29 = 116 mL/min/1.73 sq.m. Ages 30-39 = 107 mL/min/1.73 sq.m. Ages 40-49 = 99 mL/min/1.73 sq.m. Ages 50-59 = 93 mL/min/1.73 sq.m. Ages 60-69 = 85 mL/min/1.73 sq.m. Ages 70+ = 75 mL/min/1.73 sq.m. Chronic Kidney Disease: Less than 60 mL/min/1.73 square meters End Stage Renal Disease: Less than 15 mL/min/1.73 square meters Performed By: #### C LYNNE BERRY MDW, CMP, GFR, DIFF, ALC, TROPHS #### [address] [address] .Manual Diffon 09-07-2023 Bands 2.0 % Normal 0.0-5.0 [facility] ([place]) Comment on above: Performed By: #### C BC, MORPH, MDW, CMP, GFR, DIFF, ALC, TROPHS #### [address] [address] Basophil %, Manual 0.0 % Normal 0.0-2.5 [facility] ([place]) Comment on above: Performed By: #### C BC, MORPH, MDW, CMP, GFR, DIFF, ALC, TROPHS #### [address] [address] Basophil, Abs Manual 0.0 10 3/mcL Normal 0.0-0.2 [facility] ([place]) Comment on above: Performed By: #### C BC, MORPH, MDW, CMP, GFR, DIFF, ALC, TROPHS #### [address] [address] Eosinophil %, Manual 0.0 % Normal 0.0-7.0 [facility] ([place]) Comment on above: Performed By: #### C BC, MORPH, MDW, CMP, GFR, DIFF, ALC, TROPHS #### [address] [address] Eosinophil, Abs Manual 0.0 10 3/mcL Normal 0.0-0.4 [facility] ([place]) Comment on above: Performed By: #### C BC, MORPH, MDW, CMP, GFR, DIFF, ALC, TROPHS #### [address] [address] Lymphocyte %, Manual 67.0 % High 10.0-50.0 [facility] ([place]) Comment on above: Performed By: #### C BC, MORPH, MDW, CMP, GFR, DIFF, ALC, TROPHS #### [address] [address] Lymphocyte, Abs Manual 1.3 10 3/mcL Normal 0.8-3.9 [facility] ([place]) Comment on above: Performed By: #### C BC, MORPH, MDW, CMP, GFR, DIFF, ALC, TROPHS #### [address] [address] Metamyelocyte 1.0 % Normal [facility] ([place]) Comment on above: Performed By: #### C BC, MORPH, MDW, CMP, GFR, DIFF, ALC, TROPHS #### [address] [address] Monocyte %, Manual 3.0 % Normal 1.7-13.0 [facility] ([place]) Comment on above: Performed By: #### C BC, MORPH, MDW, CMP, GFR, DIFF, ALC, TROPHS #### [address] [address] Monocyte, Abs Manual 0.1 10 3/mcL Low 0.2-1.0 [facility] ([place]) Comment on above: Performed By: #### C BC, MORPH, MDW, CMP, GFR, DIFF, ALC, TROPHS #### [address] [address] Neutrophil %, Manual 27.0 % Low 37.0-80.0 [facility] ([place]) Comment on above: Performed By: #### C BC, MORPH, MDW, CMP, GFR, DIFF, ALC, TROPHS #### [address] [address] Neutrophil, Abs Manual 0.6 10 3/mcL Low 2.9-6.2 [facility] ([place]) Comment on above: Performed By: #### C BC, MORPH, MDW, CMP, GFR, DIFF, ALC, TROPHS #### [address] [address] Nucleated RBC 0.0 /100 WBC Normal [facility] ([place]) Comment on above: Performed By: #### C BC, MORPH, MDW, CMP, GFR, DIFF, ALC, TROPHS #### [address] [address] .Morphon 09-07-2023 Anisocytosis Ql (Bld) 1+ Normal [facility] ([place]) Comment on above: Performed By: #### C BC, MORPH, MDW, CMP, GFR, DIFF, ALC, TROPHS #### [address] [address] Macrocytosis 1+ Normal [facility] ([place]) Comment on above: Performed By: #### C LYNNE BERRY MDW, CMP, GFR, DIFF, ALC, TROPHS #### [address] [address] Ovalocytes 1+ Normal [facility] ([place]) Comment on above: Performed By: #### C LYNNE BERRY MDW, CMP, GFR, DIFF, ALC, TROPHS #### [address] [address] Platelet Estimate Decreased Normal [facility] ([place]) Comment on above: Performed By: #### C LYNNE BERRY MDW, CMP, GFR, DIFF, ALC, TROPHS #### [address] [address] B12on 09-07-2023 Cobalamin (Vitamin B12) [Mass/Vol] 563 pg/mL Normal 211-911 [facility] ([place]) Comment on above: Performed By: #### C LYNNE BERRY MDW, CMP, GFR, DIFF, ALC, TROPHS #### [address] [address] CBCon 09-07-2023 Erythrocyte distribution width (RBC) [Ratio] 17.4 % High 11.5-14.5 [facility] ([place]) Comment on above: Performed By: #### C LYNNE BERRY MDW, CMP, GFR, DIFF, ALC, TROPHS #### [address] [address] Hematocrit (Bld) [Volume fraction] 34.4 % Low 42.0-52.0 [facility] ([place]) Comment on above: Performed By: #### C LYNNE BERRY MDW, CMP, GFR, DIFF, ALC, TROPHS #### [address] [address] Hgb 11.7 G/dL Low 14.0-18.0 [facility] ([place]) Comment on above: Performed By: #### C BC, MORPH, MDW, CMP, GFR, DIFF, ALC, TROPHS #### [address] [address] MCH (RBC) [Entitic mass] 34.7 pg High 27.0-31.2 [facility] ([place]) Comment on above: Performed By: #### C KRISTI, LYNNE, MDW, CMP, GFR, DIFF, ALC, TROPHS #### [place] [phone] MCHC 34.1 G/dL Normal 31.8-35.4 [facility] ([place]) Comment on above: Performed By: #### C KRISTI, LYNNE, MDW, CMP, GFR, DIFF, ALC, TROPHS #### [place] [phone] MCV (RBC) [Entitic vol] 101.9 fL High 80.0-94.0 [facility] ([place]) Comment on above: Performed By: #### C KRISTI, LYNNE, MDW, CMP, GFR, DIFF, ALC, TROPHS #### [place] [phone] Platelet 64 10 3/mcL Low 130-400 [facility] ([place]) Comment on above: Performed By: #### C KRISTI, LYNNE, MDW, CMP, GFR, DIFF, ALC, TROPHS #### [address] [address] Platelet mean volume (Bld) [Entitic vol] 8.1 fL Normal 7.4-10.4 [facility] ([place]) Comment on above: Performed By: #### C KRISTI, LYNNE, MDW, CMP, GFR, DIFF, ALC, TROPHS #### [place] [phone] RBC 3.38 10 6/mcL Low 4.04-6.13 [facility] ([place]) Comment on above: Performed By: #### C KRISTI, LYNNE, MDW, CMP, GFR, DIFF, ALC, TROPHS #### [place] [phone] WBC 2.0 10 3/mcL Low 4.6-10.8 [facility] ([place]) Comment on above: Performed By: #### C BC, MORPH, MDW, CMP, GFR, DIFF, ALC, TROPHS #### [address] [address] CMPon 09-07-2023 BUN/Creatinine Ratio 10 ratio Normal 7-27 [facility] ([place]) Comment on above: Performed By: #### C BC, MORPH, MDW, CMP, GFR, DIFF, ALC, TROPHS #### [address] [address] Calcium [Mass/Vol] 8.7 mg/dL Normal 8.4-10.2 [facility] ([place]) Comment on above: Performed By: #### C BC, MORPH, MDW, CMP, GFR, DIFF, ALC, TROPHS #### [address] [address] Chloride [Moles/Vol] 106 mmol/L Normal 98-107 [facility] ([place]) Comment on above: Performed By: #### C BC, MORPH, MDW, CMP, GFR, DIFF, ALC, TROPHS #### [address] [address] CO2 [Moles/Vol] 28 mmol/L Normal 23-31 [facility] ([place]) Comment on above: Performed By: #### C BC, MORPH, MDW, CMP, GFR, DIFF, ALC, TROPHS #### [address] [address] Creatinine [Mass/Vol] 0.58 mg/dL Low 0.70-1.30 [facility] ([place]) Comment on above: Performed By: #### C BC, MORPH, MDW, CMP, GFR, DIFF, ALC, TROPHS #### [address] [address] Electrolyte Balance 13.0 mEq/L Normal 4.0-15.0 [facility] ([place]) Comment on above: Performed By: #### C BC, MORPH, MDW, CMP, GFR, DIFF, ALC, TROPHS #### [address] [address] Glucose [Mass/Vol] 88 mg/dL Normal 80-115 [facility] ([place]) Comment on above: Performed By: #### C KRISTI, LYNNE, W, CMP, GFR, DIFF, ALC, TROPHS #### [address] [address] Potassium [Moles/Vol] 3.8 mmol/L Normal 3.5-5.1 [facility] ([place]) Comment on above: Performed By: #### C KRISTI, LYNNE, MDW, CMP, GFR, DIFF, ALC, TROPHS #### [address] [address] Sodium [Moles/Vol] 147 mmol/L High 136-145 [facility] ([place]) Comment on above: Performed By: #### C KRISTI, LYNNE, JOHNNIE, CMP, GFR, DIFF, ALC, TROPHS #### [address] [address] Urea nitrogen [Mass/Vol] 6 mg/dL Low 7-18 [facility] ([place]) Comment on above: Performed By: #### C KRISTI, JOHNNIE BATISTA, CMP, GFR, DIFF, ALC, TROPHS #### [address] [address] HFPon 09-07-2023 Bili Indirect 0.3 mg/dL Normal [facility] ([place]) Comment on above: Performed By: #### C KRISTI, JOHNNIE BATISTA, CMP, GFR, DIFF, ALC, TROPHS #### [address] [address] Albumin Level 3.1 G/dL Low 3.4-4.8 [facility] ([place]) Comment on above: Performed By: #### C KRISTI, LYNNE, W, CMP, GFR, DIFF, ALC, TROPHS #### [address] [address] Albumin/Globulin [Mass ratio] 0.8 {ratio} Low 1.1-2.5 [facility] ([place]) Comment on above: Performed By: #### C BC, MORPH, MDW, CMP, GFR, DIFF, ALC, TROPHS #### [address] [address] ALP [Catalytic activity/Vol] 179 U/L High 40-135 [facility] ([place]) Comment on above: Performed By: #### C BC, MORPH, MDW, CMP, GFR, DIFF, ALC, TROPHS #### [address] [address] ALT [Catalytic activity/Vol] 128 U/L High 16-63 [facility] ([place]) Comment on above: Performed By: #### C BC, LYNNE, MDW, CMP, GFR, DIFF, ALC, TROPHS #### [address] [address] AST [Catalytic activity/Vol] 261 U/L High 10-40 [facility] ([place]) Comment on above: Performed By: #### C BC, LYNNE, MDW, CMP, GFR, DIFF, ALC, TROPHS #### [address] [address] Bili Direct 0.3 mg/dL High 0.0-0.2 [facility] ([place]) Comment on above: Result Comment: Use of this assay is not recommended for patients undergoing treatment with eltrombopag due to the potential for falsely elevated results. Performed By: #### C BC, LYNNE, MDW, CMP, GFR, DIFF, ALC, TROPHS #### [place] [phone] Bili Total 0.6 mg/dL Normal 0.2-1.0 [facility] ([place]) Comment on above: Result Comment: Use of this assay is not recommended for patients undergoing treatment with eltrombopag due to the potential for falsely elevated results. Performed By: #### C BC, MORPH, MDW, CMP, GFR, DIFF, ALC, TROPHS #### [address] [address] Globulin 3.9 G/dL Normal [facility] ([place]) Comment on above: Performed By: #### C BC, MORPH, W, CMP, GFR, DIFF, ALC, TROPHS #### [place] [address] [place], [place] [address] Total Protein 7.0 G/dL Normal 6.4-8.2 [facility] ([place]) Comment on above: Performed By: #### C KRISTI, LYNNE, W, CMP, GFR, DIFF, ALC, TROPHS #### [place] [address] [place], [place] [address] LABORATORYOrdered By: SYSTEM SYSTEM on 09-07-2023 25-hydroxyvitamin D3 [Mass/Vol] 16.9 ng/mL Invalid Interpretation Code AO ADM SS Comment on above: Interpretive Data: I nterpretive Values Based on Total 25(OH) Vitamin D: Deficient <20 ng/mL Insufficient 20 - <30 ng/mL Sufficient 30-100 ng/mL Anisocytosis Ql (Bld) 1+ *NA* (09/07/23 8:34 AM) Invalid Interpretation Code AO Workflow SS Bands 2.0 % Normal 0.0 - 5.0 % AO Workflow SS Basophil %, Manual 0.0 % Normal 0.0 - 2.5 % AO Workflow SS Basophil, Abs Manual 0.0 103/mcL Normal 0.0 - 0 .2 10^3/mcL AO Workflow SS Calcium [Mass/Vol] 8.7 mg/dL Normal 8.4 - 10. 2 mg/dL AO ADM SS Chloride [Moles/Vol] 106 mmol/L Normal 98 - 10 7 mmol/L AO ADM SS CO2 [Moles/Vol] 28 mmol/L Normal 23 - 31 mmol/L AO ADM SS Cobalamin (Vitamin B12) [Mass/Vol] 563 pg/mL Normal 211 - 911 pg/mL AH ADM SS Creatinine [Mass/Vol] 0.58 mg/dL Low 0.70 - 1.30 mg/dL AO ADM SS Electrolyte Balance 13.0 mEq/L Normal 4.0 - 15 .0 mEq/L AO ADM SS Eosinophil %, Manual 0.0 % Normal 0.0 - 7 .0 % AO Workflow SS Eosinophils (Bld) [#/Vol] 0.0 103/mcL Normal 0.0 - 0.4 10^3/mcL AO Workflow SS Erythrocyte distribution width (RBC) [Ratio] 17.4 % High 11.5 - 14.5 % AO Workflow SS GFR/1.73 sq M.predicted among blacks MDRD (S/P/Bld) [Vol rate/Area] 172 ml/min/1.73sqm Invalid Interpretation Code AO Chemistry S Comment on above: Interpretive Data: GFR Population mean for , Non- Americans Ages 20-29 = 116 mL/min/1.73 sq.m. Ages 30-39 = 107 mL/min/1.73 sq.m. Ages 40-49 = 99 mL/min/1.73 sq.m. Ages 50-59 = 93 mL/min/1.73 sq.m. Ages 60-69 = 85 mL/min/1.73 sq.m. Ages 70+ = 75 mL/min/1.73 sq.m. Chronic Kidney Disease: Less than 60 mL/min/1.73 square meters End Stage Renal Disease: Less than 15 mL/min/1.73 square meters GFR/1.73 sq M.predicted among non-blacks MDRD (S/P/Bld) [Vol rate/Area] 142 ml/min/1.73sqm Invalid Interpretation Code AO Chemistry S Comment on above: Interpretive Data: GFR Population mean for , Non- Americans Ages 20-29 = 116 mL/min/1.73 sq.m. Ages 30-39 = 107 mL/min/1.73 sq.m. Ages 40-49 = 99 mL/min/1.73 sq.m. Ages 50-59 = 93 mL/min/1.73 sq.m. Ages 60-69 = 85 mL/min/1.73 sq.m. Ages 70+ = 75 mL/min/1.73 sq.m. Chronic Kidney Disease: Less than 60 mL/min/1.73 square meters End Stage Renal Disease: Less than 15 mL/min/1.73 square meters Glucose [Mass/Vol] 88 mg/dL Normal 80 - 115 mg/dL AO ADM SS Hematocrit (Bld) [Volume fraction] 34.4 % Low 42.0 - 52.0 % AO Workflow SS Hemoglobin (Bld) [Mass/Vol] 11.7 G/dL Low 14.0 - 18.0 G/dL AO Workflow SS Lymphocyte %, Manual 67.0 % High 10.0 - 50.0 % AO Workflow SS Lymphocyte, Abs Manual 1.3 103/mcL Normal 0.8 - 3.9 10^3/mcL AO Workflow SS Macrocytes Ql (Bld) 1+ *NA* (09/07/23 8:34 AM) Invalid Interpretation Code AO Workflow SS Magnesium [Mass/Vol] 1.5 mg/dL Low 1.8 - 2 .4 mg/dL AO ADM SS MCH (RBC) [Entitic mass] 34.7 pg High 27.0 - 31.2 pg AO Workflow SS MCHC 34.1 G/dL Normal 31.8 - 35.4 G/dL AO Workflow SS MCV (RBC) [Entitic vol] 101.9 fL High 80.0 - 94.0 fL AO Workflow SS Metamyelocytes/100 WBC (Bld) 1.0 % Invalid Interpretation Code AO Workflow SS Monocyte %, Manual 3.0 % Normal 1.7 - 13. 0 % AO Workflow SS Monocyte, Abs Manual 0.1 103/mcL Low 0.2 - 1 .0 10^3/mcL AO Workflow SS Neutrophil %, Manual 27.0 % Low 37.0 - 80.0 % AO Workflow SS Neutrophil, Abs Manual 0.6 103/mcL Low 2.9 - 6.2 10^3/mcL AO Workflow SS Nucleated RBC 0.0 /100 WBC Invalid Interpretation Code AO Workflow SS Ovalocytes LM Ql (Bld) 1+ *NA* (09/07/23 8:34 AM) Invalid Interpretation Code AO Workflow SS Platelet Estimate Decreased *NA* (09/07/23 8:34 AM) Invalid Interpretation Code AO Workflow SS Platelet mean volume (Bld) [Entitic vol] 8.1 fL Normal 7.4 - 10.4 fL AO Workflow SS Platelets (Bld) [#/Vol] 64 103/mcL Low 130 - 400 10^3/mcL AO Workflow SS Potassium [Moles/Vol] 3.8 mmol/L Normal 3.5 - 5.1 mmol/L AO ADM SS RBC (Bld) [#/Vol] 3.38 106/mcL Low 4.04 - 6.13 10^6/mcL AO Workflow SS Sodium [Moles/Vol] 147 mmol/L High 136 - 145 mmol/L AO ADM SS Urea nitrogen [Mass/Vol] 6 mg/dL Low 7 - 18 mg/dL AO ADM SS Urea nitrogen/Creatinine [Mass ratio] 10 ratio Normal 7 - 27 ratio AO ADM SS WBC (Bld) [#/Vol] 2.0 103/mcL Low 4.6 - 10.8 10^3/mcL AO Workflow SS LABORATORYOrdered By: YAN MEIER on 09-07-2023 CBC Path Review Marked leukopenia an d moderate macrocytic anemia and thrombocytopenia noted, with absolute neutropenia and monocytopenia. Rule out liver disease. Rule out hypersplenism. Rule out nutritional deficiency. Rule out drug effect. Rule out bone marrow abnormality. Invalid Interpretation Code AH Path Review Subsection Work Phone: Laboratory - Chemistry and C hemistry - challengeOrdered By: SYSTEM SYSTEM on 09-07-2023 Albumin BCP dye [Mass/Vol] 3.1 G/dL Low 3.4 - 4.8 G/dL AO ADM SS Albumin/Globulin [Mass ratio] 0.8 {ratio} Low 1.1 - 2.5 ratio AO ADM SS ALP [Catalytic activity/Vol] 179 U/L High 40 - 135 U/L AO ADM SS ALT With P-5'-P [Catalytic activity/Vol] 128 U/L High 16 - 63 U/L AO ADM SS AST With P-5'-P [Catalytic activity/Vol] 261 U/L High 10 - 40 U/L AO ADM SS Bilirubin [Mass/Vol] 0.6 mg/dL Normal 0.2 - 1 .0 mg/dL AO ADM SS Comment on above: Interpretive Data: U se of this assay is not recommended for patients undergoing treatment with eltrombopag due to the potential for falsely elevated results. Bilirubin.direct [Mass/Vol] 0.3 mg/dL Invalid Interpretation Code AO ADM SS Comment on above: Interpretive Data: U se of this assay is not recommended for patients undergoing treatment with eltrombopag due to the potential for falsely elevated results. Protein [Mass/Vol] 7.0 G/dL Normal 6.4 - 8.2 G/dL AO ADM SS MGon 09-07-2023 Magnesium [Mass/Vol] 1.5 mg/dL Low 1.8-2.4 [facility] ([place]) Comment on above: Performed By: #### C BC, MORPH, MDW, CMP, GFR, DIFF, ALC, TROPHS #### [place] [phone] No Panel InformationOrdered By: SYSTEM SYSTEM on 09-07-2023 Globulin 3.9 G/dL Invalid Interpretation Code AO ADM SS VIDHon 09-07-2023 Vit. D 25-Hydroxy 16.9 ng/mL Normal [facility] ([place]) Comment on above: Result Comment: Inte rpretive Values Based on Total 25(OH) Vitamin D: Deficient <20 ng/mL Insufficient 20 - <30 ng/mL Sufficient 30-100 ng/mL Performed By: #### C BC, MORPH, MDW, CMP, GFR, DIFF, ALC, TROPHS #### [place] [address] [place], [place] [address] XR SHOULDER MINIMUM 2 VIEWS RIGHTon 07-18-2023 XR SHOULDER MINIMUM 2 VIEWS RIGHT ORIGINAL EXAMINATION: 3 XRAY VIEWS OF THE RIGHT SHOULDER 07/18/2023 11:07 am COMPARISON: None. HISTORY: ORDERING SYSTEM PROVIDED HISTORY: Reason for Exam: fall FINDINGS: Mild degenerative changes are present at the AC and glenohumeral joints. The Y-view is compromised by positioning. There is no definite fracture or dislocation identified. IMPRESSION: No acute fracture seen. Interpreted by: Leander Esquivel MD Preliminary Report By: Leander Esquivel MD Electronically signed By Leander Esquivel MD Dictated Date: 07/18/2023 11:13:10 AM Prelim Date: 07/18/2023 11:13:46 AM Sign Date: 07/18/2023 11:13:46 AM Ordering Provider: BRANDY Meeks [facility] ([place]) XR SHOULDER MINIMUM 2 VIEWS RIGHTon 07-10-2023 XR SHOULDER MINIMUM 2 VIEWS RIGHT ORIGINAL EXAMINATION: TWO XRAY VIEWS OF THE RIGHT SHOULDER 07/10/2023 7:15 am COMPARISON: Right shoulder x-ray 07/10/2023 HISTORY: ORDERING SYSTEM PROVIDED HISTORY: Reason for Exam: reduction FINDINGS/IMPRESSION: There has been successful reduction of the dislocated right glenohumeral joint. Alignment is now normal. No fracture of humeral head or glenoid is detected. Interpreted by: Luis Morales MD Preliminary Report By: Luis Morales MD Electronically signed By Luis Morales MD Dictated Date: 07/10/2023 7:20:51 AM Prelim Date: 07/10/2023 7:21:59 AM Sign Date: 07/10/2023 7:21:59 AM Ordering Provider: [facility] ([place]) XR SHOULDER MINIMUM 2 VIEWS RIGHT ORIGINAL EXAMINATION: TWO XRAY VIEWS OF THE RIGHT SHOULDER 07/10/2023 7:04 am COMPARISON: Right shoulder x-ray on 07/10/2023. HISTORY: ORDERING SYSTEM PROVIDED HISTORY: Reason for Exam: s/p reduction FINDINGS/IMPRESSION: There is persistent anterior inferior dislocation of right humeral head from the glenohumeral joint. No fracture is detected. Interpreted by: Luis Morales MD Preliminary Report By: Luis Morales MD Electronically signed By Luis Morales MD Dictated Date: 07/10/2023 7:17:45 AM Prelim Date: 07/10/2023 7:19:13 AM Sign Date: 07/10/2023 7:19:13 AM Ordering Provider: [facility]) XR SHOULDER MINIMUM 2 VIEWS RIGHT ORIGINAL EXAMINATION: 3 XRAY VIEWS OF THE RIGHT SHOULDER 07/10/2023 6:01 am COMPARISON: None. HISTORY: ORDERING SYSTEM PROVIDED HISTORY: Reason for Exam: fall FINDINGS: The right humeral head is displaced anteriorly and inferiorly from the glenoid. No fracture of humeral head or glenoid is detected on this exam. Acromioclavicular alignment is normal. Adjacent ribs are intact. IMPRESSION: Anterior inferior dislocation of right glenohumeral joint. Interpreted by: Luis Morales MD Preliminary Report By: Luis Morales MD Electronically signed By Luis Morales MD Dictated Date: 07/10/2023 6:03:57 AM Prelim Date: 07/10/2023 6:05:42 AM Sign Date: 07/10/2023 6:05:42 AM Ordering Provider: [facility] ([place]) LABORATORYOrdered By: Elliott Vitale on 09-06-2021 Albumin BCP dye [Mass/Vol] 4.0 G/dL Invalid Interpretation Code 3.4 - 4.8 G/dL AO ADM SS Albumin/Globulin [Mass ratio] 1.0 {ratio} Invalid Interpretation Code 1.1 - 2.5 ratio AO ADM SS ALP [Catalytic activity/Vol] 92 U/L Invalid Interpretation Code 40 - 135 U/L AO ADM SS ALT With P-5'-P [Catalytic activity/Vol] 48 U/L Invalid Interpretation Code 16 - 63 U/L AO ADM SS AST With P-5'-P [Catalytic activity/Vol] 45 U/L Invalid Interpretation Code 10 - 40 U/L AO ADM SS Bilirubin [Mass/Vol] 0.7 mg/dL Invalid Interpretation Code 0.2 - 1.0 mg/dL AO ADM SS Calcium [Mass/Vol] 9.4 mg/dL Invalid Interpretation Code 8.4 - 10.2 mg/dL AO ADM SS Chloride [Moles/Vol] 104 mmol/L Invalid Interpretation Code 98 - 107 mmol/L AO ADM SS Cholesterol [Mass/Vol] 224 mg/dL Invalid Interpretation Code 0 - 200 mg/dL AO ADM SS Cholesterol in HDL [Mass/Vol] 107 mg/dL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 Work Phone: [facility] Work Phone: Start: 12-19-2023 Non-patient / Non-visit Dr. Jennifer Villaseñor Work Phone: [facility] Work Phone: Start: 11-01-2023 End: 11-01-2023 Emergency department patient visit NATHANIEL CARUSO [facility] Start: 09-16-2023 End: 09-16-2023 ambulatory JENNIFER VILLASEÑOR MD Facility:B Start: 09-16-2023 End: 09-16-2023 Patient encounter procedure JENNIFER VILLASEÑOR MD [facility] Start: 09-07-2023 End: 09-11-2023 ambulatory JENNIFER VILLASEÑOR MD Facility:B Start: 09-07-2023 End: 09-11-2023 Outreach Lab JENNIFER VILLASEÑOR MD [facility] Start: 09-03-2023 ambulatory JENNIFER VILLASEÑOR MD Faci lity:B Start: 07-18-2023 End: 07-18-2023 Emergency department patient visit DR BRANDY CASTANEDA MD [facility] Start: 07-10-2023 End: 07-10-2023 Emergency department patient visit CY MEDEIROS MD [facility] Start: 03-30-2023 End: 07-06-2023 Physical therapy management PHY WO ID REFERRING [facility] Start: 01-16-2023 End: 01-16-2023 Patient encounter procedure JENNIFER VILLASEÑOR MD [facility] Start: 01-08-2022 End: 01-08-2022 Patient encounter procedure 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 Jennifer Villaseñor MD Work Phone: Start: 02-03-2025 CT of chest without contrast Dr. Jennifer Villaseñor MD Work Phone: Start: 02-03-2025 CT of head without contrast Dr. Jennifer Villaseñor MD Work Phone: Start: 12-24-2023 SARS-CoV-2, Influenz a & RSV (PCR) Dr. Jennifer Villaseñor Work Phone: Start: 12-19-2023 Bacteria identified in Blood by Culture Dr. Jennifer Villaseñor Work Phone: Start: 12-19-2023 Legionella pneumophi la antigen assay Dr. Jennifer Villaseñor Work Phone: Start: 12-19-2023 Streptococcus pneumo niae Antigen (M Dr. Jennifer Villaseñor Work Phone: Start: 12-19-[address] Iza Villaseñor Work Phone: Start: 12-19-[address] Jennifer Villaseñor Work Phone: Start: 12-18-2023 Plain chest X-ray Dr. Kassidy Villaseñor Work Phone: Start: 12-18-2023 CT of head without contrast Dr. Jennifer Villaseñor Work Phone: Start: 12-18-2023 SARS-CoV-2, Influenz a & RSV (PCR) Dr. Jennifer Villaseñor Work Phone: Bilateral cataracts (disorder) JENNIFER VILLASEÑOR MD None (qualifier value) IZA VILLASEÑOR MD Plan of Treatment Date Care Activity Detail Author Start: 02-03-2025 [facility] Start: 12-25-2023 Patient discharge [facility] Start: 12-19-2023 Bacteria identified in Blood by Culture Blood Culture [facility] Start: 12-19-2023 Referral to service [facility] Start: 12-19-2023 Referral to occupational therapist [facility] Start: 12-19-2023 Ultrasonography of abdomen Liver [facility] Start: 12-19-2023 Vitamin B12 measurement [facility] Start: 12-19-2023 [facility] Start: 12-19-2023 Application of intermittent pneumatic compression device [facility] Start: 12-19-2023 Following clinical pathway protocol [facility] Start: 12-19-2023 Assessment of risk of venous thromboembolism [facility] Start: 12-19-2023 Bacteria identified in Sputum by Culture [facility] Start: 12-19-2023 Fall prevention [facility] Start: 12-19-2023 Incentive spirometry [facility] Start: 12-19-2023 Inhalation therapy procedure [facility] Start: 12-19-2023 Insertion of catheter into peripheral vein [facility] Start: 12-19-2023 Introduction of urinary catheter [facility] Start: 12-19-2023 Measuring intake and output [facility] Start: 12-19-2023 Oxygen therapy [facility] Start: 12-19-2023 Providing care according to standard [facility] Start: 12-19-2023 Provision of activity privileges [facility] Start: 12-19-2023 Referral to service [facility] Start: 12-19-2023 Taking nasal swab [facility] Start: 12-19-2023 Tobacco use cessation education [facility] Start: 12-19-2023 [facility] Start: 12-19-2023 Respiratory pathogens DNA and RNA panel - Respiratory specimen by VIVIANE with probe detection [facility] Start: 12-19-2023 Verification routine [facility] Start: 12-19-2023 Admission procedure [facility] Start: 12-19-2023 End: 12-19-2023 Blood culture [facility] Start: 12-18-2023 [facility] Alanine aminotransfe rase [Enzymatic activity/volume] in Serum or Plasma [facility] Albumin [Mass/volume ] in Serum or Plasma [facility] Alkaline phosphatase [Enzymatic activity/volume] in Serum or Plasma [facility] Anion gap measurement [facility] Aspartate aminotrans ferase [Enzymatic activity/volume] in Serum or Plasma [facility] Bacteria identified in Urine by Culture [facility] Bilirubin, total measurement [facility] BUN/Creatinine ratio [facility] Calcium [Mass/volume ] in Serum or Plasma [facility] Carbon dioxide, tota l [Moles/volume] in Serum or Plasma [facility] Chloride [Moles/volu me] in Serum or Plasma [facility] Creatinine [Moles/vo lume] in Serum or Plasma [facility] Erythrocyte mean corpuscular volume determination [facility] Folate [Mass/volume] in Serum or Plasma [facility] Glucose [Mass/volume ] in Serum or Plasma [facility] Hematocrit [Volume Fraction] of Blood [facility] Hemoglobin [Mass/vol ume] in Blood [facility] Hemoglobin A1c/Hemoglobin.total in Blood [facility] Leukocytes [#/volume ] in Blood [facility] Magnesium [Mass/volu me] in Serum or Plasma [facility] Mean corpuscular hem oglobin concentration determination [facility] Mean corpuscular hem oglobin determination [facility] Measurement of renal function [facility] Neutrophil count [facility] Neutrophil percent differential count [facility] Patient Education ED Alcohol Int oxication ED Rib Fracture ED Head Injury (Adult) [facility] Work Phone: Patient referral [facility] Work Phone: Platelets [#/volume] in Blood [facility] Potassium [Moles/vol ume] in Serum or Plasma [facility] Procalcitonin [Mass/ volume] in Serum or Plasma [facility] Red blood cell count [facility] Red cell distributio n width determination [facility] Sodium [Moles/volume ] in Serum or Plasma [facility] Total protein measurement [facility] Urea nitrogen [Mass/ volume] in Serum or Plasma [facility] Immunizations Immunization Date Immunization Notes Care Provider Jasvir evans 11-20-2020 SARS-CoV-2 mRNA (tozinameran) vaccine JENNIFER [facility]ILLASE[facility] 10-30-2020 SARS-CoV-2 mRNA (tozinameran) vaccine JENNIFER VILLASEÑOR MD [facility] Comment on above: Result Comment: 2022: [id number] 06-08-2013 tetanus toxoid, redu ok diphtheria toxoid, and acellular pertussis vaccine, adsorbed JENNIFER VILLASEÑOR [facility] Payers Date Payer Category Payer Self-pay [id number] 2024 Private Health Insurance [id number] 2024 Unknown [id number] 2024 Private Health Insurance [id number] 2024 Unknown [id number] 2024 Unknown [id number] 2023 Medicaid [id number] 2023 Unknown [id number] 1960 Unknown [id number] 27 1960 Unknown [id number] 2.16.840.1.789522.3.579.2.6 1960 Unknown [id number] 2.16.840.1.918006.3.579.2.6 1960 Unknown [id number] 2.16.840.1.977993.3.579.2.6 1960 Unknown [id number] 2.16.840.1.273374.3.579.2.6 1960 Unknown [id number] 2.16.840.1.984788.3.579.2.6 1960 Unknown [id number] 2.16.840.1.148762.3.579.2.6 1960 Unknown [id number] 2.16.840.1.114699.3.579.2.6 1960 Unknown [id number] 2.16.840.1.315525.3.579.2.6 1960 Unknown [id number] 2.16.840.1.356362.3.579.2.6 1960 Unknown [id number] 2.16.840.1.533437.3.579.2.6 1960 Unknown [id number] 2.16.840.1.311466.3.579.2.6 1960 Unknown [id number] 2.16.840.1.390571.3.579.2.6 1960 Unknown [id number] 2.16.840.1.510450.3.579.2.6 27 Unknown [facility] [id number] Unknown [facility] OTHER [id number] [id number] Unknown [id number] [id number] 62 Social History Date Type Detail Facility Start: 10-15-2020 End: 05-26-2024 Heavy tobacco smoker (finding) [facility] Sex Assigned At [facility] Start: 08-07-2023 Tobacco smoking status Light tobacco smoker (finding) [facility] Start: 12-19-2023 Tobacco smoking status NHIS Unknown if ever smoked [facility] Start: 11-21-2019 Heavy [facility] Start: 11-21-2019 None [facility] Start: 11-21-2019 Spouse/ Signif icant Other [facility] Start: 11-22-2019 Cigarettes [facility] Start: 1960 Sex Assigned At [facility] Start: 10-21-2016 Sex Male (finding) [facility] Start: 02-03-2025 Tobacco smoking status NHIS Smokes tobacco daily (finding) [facility] Goals Date Patient Goal Desired Activity /State Functional Status Date Assessment Result Facility 10-13-2024 Functional Status Room check performed [facility] 10-13-2024 Functional Status Total [facility] 10-13-2024 Functional Status [facility] 10-13-2024 Functional Status [facility] 10-12-2024 Functional Status [facility] 10-12-2024 Functional Status [facility] 10-12-2024 Functional Status [facility] 10-12-2024 Functional Status [facility] 10-12-2024 Functional Status [facility] 10-11-2024 Functional Status Single level home [facility] 10-11-2024 Functional Status [facility] 10-10-2024 [facility] 10-09-2024 Functional Status low air loss bed [facility] 10-09-2024 Functional Status [facility] 10-09-2024 Functional Status Done [facility] 10-08-2024 [facility] 10-08-2024 Functional Status Feeding Assist ance Maximum assistance [facility] 05-26-2024 Functional Status Independent [facility] 05-26-2024 Functional Status Ambulation in Cloud [facility] 05-17-2024 Functional Status Refused by family membe r [facility] 05-17-2024 Functional Status Room check performed [facility] 05-17-2024 [facility] 05-17-[facility]24 Functional Status [facility] 05-16-2024 Functional Status [facility] 05-16-2024 Functional Status Sitting on edge of bed [facility] 05-16-2024 Functional Status [facility] 05-16-2024 Functional Status [facility] 05-16-2024 Functional Status [facility] 05-16-2024 Functional Status [facility] 05-16-2024 Functional Status Min A [facility] 05-16-2024 Functional Status Sensory Deficits None A [facility] 05-15-2024 Functional Status ID band on [facility] 03-30-2024 Functional Status Minimum [facility] 03-30-2024 Functional Status Activity Statu s ADL Sleeps intermittently [facility] 03-30-2024 Functional Status [facility] 03-29-2024 Functional Status Identified as high risk, Room located near nursing station, Room check performed [facility] 12-25-2023 Functional status Ambulates;Bathroom Priv [facility] Work Phone: 11-01-2023 Functional Status Minimum assistance [facility] 11-01-2023 Functional Status Identified as high risk, Room located near nursing station, Bed alert on, Non-Slip footwear, Reoriented, supervised while toileting, Security notified [facility] 07-18-2023 Functional Status Independent [facility] 07-18-2023 Functional Status ID band on [facility] 07-10-2023 Functional Status Standard Safet y ID band on, Call device within reach, Bed in low position, Wheels locked, personal items within reach [facility] 03-30-2023 Functional Status Home Living Ad ditional Information Objective: Observation: tends to sit off center and cross legs. Sensation: Grossly intact to light touch on bilat LE's Cardiovascular screen: O2 sat: 98% HR: 89 BPM BP: 150/90 Reflexes: Quads R:1+ L:1+ Achilles R: 1+ L: 1+ Gait: mild antalgic gait on the R. Mild R toe out Trunk AROM: Flex: min loss Ext: major loss ERP SGIS: R:mod loss L: mod loss Repeated Motion Testing: flex and flexion in seated reduced/abolished symptoms Palpation: Tender to palpation R lateral hip and gluteal region Special Tests: Slump:- bilat Hip Screen: JT:+R FADIR:- bilat Scour: NT Hip IR: see chart [facility] Mental Status Date Assessment Result Facility 10-13-2024 Mental Status Not oriented to time, Not oriented to situation, Does not interact [facility] 10-13-2024 Mental Status [facility] 10-12-2024 Mental Status [facility] 08-05-2024 Mental Status Orientation Oriented x 4 [facility] 05-26-2024 Mental Status Orientation Oriented x 4 [facility] 05-26-2024 Mental Status [facility] 05-17-2024 Mental Status Oriented x 4 [facility] 05-16-2024 Mental Status [facility] 05-16-2024 Mental Status [facility] 05-16-2024 Mental Status [facility] 05-15-2024 Mental Status Orientation Oriented x 4 [facility] 03-30-2024 Mental Status Orientation Oriented x 4 [facility] 03-29-2024 Mental Status [facility] 12-25-2023 Cognitive function Voice/Name [facility] Work Phone: 12-18-2023 Cognitive function Voice/Name [facility] Work Phone: 11-01-2023 Mental Status Orientation Oriented x 4 [facility] 11-01-2023 Mental Status [facility] 07-18-2023 Mental Status Orientation Oriented x 4 [facility] 07-18-2023 Mental Status [facility] 07-10-2023 Mental Status Orientation Oriented x 4 [facility] Clinical Notes 01-13-2023 to 02-03-2025 Note Date & Type Note Facility 02-03-2025 Radiology Diagnostic study note [facility] [address] [place], [place] [address] Abdomen/Pelvis W IV Cont ONLY MR#: [id number] Acct: [id number] Name: JENNIFER YORK Rep #: [id number] : 1960 M 64 From: Jil Brunner MD PCP: Dr. Jennifer Villaseñor MD Status: REG ER Study:Abdomen/Pelvis W IV Cont ONLY Date of E xam: 02/03/25 Exam# [id number] Ordering Dr: Mallika Marvin DO EXAM: CT Abdomen and Pelvis With Intravenous Contrast CLINICAL INDICATION: RIGHT SIDED TRAUMA, FREE FLUID ON CT CHEST TECHNIQUE: Axial computed tomography images of the abdomen and pelvis with intravenous contrast. This CT exam was performed using one or more of the following dose reduction techniques: automated exposure control, adjustment of the mA and/or kV according to patient size, and/or use of iterative reconstruction technique. COMPARISON: No relevant prior studies available. FINDINGS: LUNG BASES: Unremarkable. No mass. No consolidation. MEDIASTINUM: Small esophageal hiatal hernia. ABDOMEN: LIVER: Unremarkable. No mass. GALLBLADDER AND BILE DUCTS: Unremarkable. No calcified stones. No ductal dilation. PANCREAS: Unremarkable. No mass. No ductal dilation. SPLEEN: Unremarkable. No splenomegaly. ADRENALS: Unremarkable. No mass. KIDNEYS AND URETERS: Unremarkable. No solid mass. No hydronephrosis. STOMACH AND BOWEL: Fecal retention in the colon consistent with constipation. No obstruction. No mucosal thickening. PELVIS: APPENDIX: No findings to suggest acute appendicitis. BLADDER: Unremarkable. No mass. REPRODUCTIVE: The prostate gland is enlarged measuring 5.3 cm in maximum dimension. ABDOMEN and PELVIS: INTRAPERITONEAL SPACE: Fatty liver with isodense area, likely fatty sparing regions. Ascites with Hounsfield units less than 15. This is unlikely blood. However, this is not a dedicated CTA exam. No free air. BONES/JOINTS: Multilevel endplate degenerative changes and disc disease of the lumbar spine. No acute fracture. No dislocation. SOFT TISSUES: Umbilical hernia containing fat. Inguinal hernias, bilaterally. VASCULATURE: Scattered calcified atherosclerotic disease of aorta. No abdominal aortic aneurysm. LYMPH NODES: Unremarkable. No enlarged lymph nodes. CT/Abdomen/Pelvis W IV Cont ONLY IMPRESSION: 1. Fatty liver with isodense area, likely fatty sparing regions. Ascites with Hounsfield units less than 15. This is unlikely blood. However, this is not a dedicated CTA exam. 2. The prostate gland is enlarged. Correlation with PSA values may be helpful if not previously performed. 3. Small esophageal hiatal hernia. 4. Fecal retention in the colon consistent with constipation. 5. Umbilical hernia containing fat. 6. Inguinal hernias, bilaterally. Reading Location: [facility] CC: Dr. Abby Marvin DO; Dr. Jennifer Villaseñor MD ~ Processing Associate: Signed [facility] 02-03-2025 Radiology Diagnostic study note [facility] [address] [place], [place] [address] Chest without Contrast MR#: [id number] Acct: [id number] Name: JENNIFER YORK Rep #: [id number] : 1960 M 64 From: Salvador Fontenot MD PCP: Dr. Jennifer Villaseñor MD Status: REG ER Study:Chest without Contrast Date of Exam: 02/03/25 Exam# [id number] Ordering Dr: Mallika Marvin DO PROCEDURE: CHEST WITHOUT CONTRAST 02/03/2025 REASON FOR EXAM: LEFT SIDED CHEST TRAUMA, FALL TECHNIQUE: Chest CT without contrast. Coronal and Sagittal reconstruction series were provided. One or more dose reduction techniques were used (e.g., Automated exposure control, adjustment of the mA and/or kV according to patient size, use of iterative reconstruction technique RADIATION DOSE SUMMARY: CTDlvol: 20.14 mGy DLP: 167.14 mGycm COMPARISON: None available for comparison. FINDINGS: Hardware: None Lymph nodes: No suspicious lymph nodes are seen. Calcified left hilar lymph node and subcarinal lymph node. Heart and Vasculature: Heart is nonenlarged. Coronary Artery Calcifications: No significant coronary artery calcification is seen. Lungs and Airways: Mild dependent atelectasis. Pleura: No pleural effusion Upper Abdomen: Fatty infiltration of the liver. Small amount of perisplenic fluid. Bones: Degenerative changes of the thoracic spine. CT/Chest without Contrast IMPRESSION: Coronary artery calcification (CAC) is is absent Heterogeneous appearance of the liver most likely secondary to diffuse fatty infiltration with focal areas of fatty sparing. Minimal amount of perisplenic fluid. Reading Location: [place] [address] CC: Dr. Abby Marvin DO; Dr. Jennifer Villaseñor MD ~ Processing Associate: Signed [facility] 02-03-2025 Radiology Diagnostic study note [facility] [address] [place] [id number] Brain/Head without Contrast MR#: [id number] Acct: [id number] Name: JENNIFER YORK Rep #: [id number] : 1960 M 64 From: Salvador Fontenot MD PCP: Dr. Jennifer Villaseñor MD Status: REG ER Study:Brain/Head without Contrast Date of Exa m: 02/03/25 Exam# [id number] Ordering Dr: Mallika Marvin DO PROCEDURE: BRAIN/HEAD WITHOUT CONTRAST 02/03/2025 REASON FOR EXAM: HEAD TRAUMA TECHNIQUE: BRAIN/HEAD WITHOUT CONTRAST Coronal and Sagittal reconstruction series were provided. One or more dose reduction techniques were used (e.g., Automated exposure control, adjustment of the mA and/or kV according to patient size, use of iterative reconstruction technique. RADIATION DOSE SUMMARY: CTDlvol: 44.99 mGy DLP: 863.6 mGycm COMPARISON: Prior study dated December 18, 2023. FINDINGS: Brain: Low density in the periventricular white matter suggests mild chronic small vessel ischemic changes. CSF Spaces: Mild generalized cerebral atrophy Sinuses/Mastoids: Clear at visualized levels Bones: CT/Brain/Head without Contrast IMPRESSION: CHRONIC CHANGES. NO ACUTE FINDINGS. Reading Location: [facility] CC: Dr. Abby Marvin DO; Dr. Jennifer Villaseñor MD ~ Processing Associate: Signed [facility] 10-14-2024 Note . MICRO - Microbiology PROCEDURE: Blood Culture (bacterial) [*1] SOURCE: Blood BODY SITE: COLLECTED DATE/TIME: 10/08/2024 14:48 EST RECEIVED DATE/TIME: 10/09/2024 12:04 EST START DATE/TIME: 10/09/2024 12:04 EST FREE TEXT SOURCE: FINAL REPORTS Final Report [] Verified Date/Time/Personnel: 10/14/2024 12:59 EST Blood Culture: No Growth at 5 days. PRELIMINARY REPORTS Preliminary Report [] Verified Date/Time/Personnel: 10/09/2024 12:59 EST Culture has been received in lab and is no growth to date. Routine cultures are held for 5 days. Performing Locations *1: This test was performed at: [facility], [address] [place] [address], [facility] , [facility] 10-14-2024 Note . MICRO - Microbiology PROCEDURE: Blood Culture (bacterial) [*1] SOURCE: Blood BODY SITE: COLLECTED DATE/TIME: 10/08/2024 14:48 EST RECEIVED DATE/TIME: 10/09/2024 12:04 EST START DATE/TIME: 10/09/2024 12:04 EST FREE TEXT SOURCE: FINAL REPORTS Final Report [] Verified Date/Time/Personnel: 10/14/2024 12:59 EST Blood Culture: No Growth at 5 days. PRELIMINARY REPORTS Preliminary Report [] Verified Date/Time/Personnel: 10/09/2024 12:59 EST Culture has been received in lab and is no growth to date. Routine cultures are held for 5 days. Performing Locations *1: This test was performed at: [facility], [address] [place] [address], [id number] , [facility] 10-13-2024 Hospital Discharge instructions Patient Education 10/13/2024 13:33:31 Influenza, Adult, Ndhk-mg-Onoe Influenza, Adult Influenza is also called the flu. It is an infection in the lungs, nose, and throat (respiratory tract). It is caused by a virus. The flu causes symptoms that are similar to symptoms of a cold. It also causes a high fever and body aches. The flu spreads easily from person to person (is contagious). Getting a flu shot (influenza vaccination) every year is the best way to prevent the flu. What are the causes? This condition is caused by the influenza virus. You can get the virus by: Breathing in droplets that are in the air from the cough or sneeze of a person who has the virus. Touching something that has the virus on it (is contaminated) and then touching your mouth, nose, or eyes. What increases the risk? Certain things may make you more likely to get the flu. These include: Not washing your hands often. Having close contact with many people during cold and flu season. Touching your mouth, eyes, or nose without first washing your hands. Not getting a flu shot every year. You may have a higher risk for the flu, along with serious problems such as a lung infection (pneumonia), if you: Are older than 65. Are . Have a weakened disease-fighting system (immune system) because of a disease or taking certain medicines. Have a long-term (chronic) illness, such as: ?Heart, kidney, or lung disease. ?Diabetes. ?Asthma. Have a liver disorder. Are very overweight (morbidly obese). Have anemia. This is a condition that affects your red blood cells. What are the signs or symptoms? Symptoms usually begin suddenly and last 4 14 days. They may include: Fever and chills. Headaches, body aches, or muscle aches. Sore throat. Cough. Runny or stuffy (congested) nose. Chest discomfort. Not wanting to eat as much as normal (poor appetite). Weakness or feeling tired (fatigue). Dizziness. Feeling sick to your stomach (nauseous) or throwing up (vomiting). How is this treated? If the flu is found early, you can be treated with medicine that can help reduce how bad the illness is and how long it lasts (antiviral medicine). This may be given by mouth (orally) or through an IV tube. Taking care of yourself at home can help your symptoms get better. Your doctor may suggest: Taking svoi-fep-naoicpk medicines. Drinking plenty of fluids. The flu often goes away on its own. If you have very bad symptoms or other problems, you may be treated in a hospital. Follow these instructions at home: Activity Rest as needed. Get plenty of sleep. Stay home from work or school as told by your doctor. ?Do not leave home until you do not have a fever for 24 hours without taking medicine. ?Leave home only to visit your doctor. Eating and drinking Take an ORS (oral rehydration solution). This is a drink that is sold at pharmacies and stores. Drink enough fluid to keep your pee (urine) pale yellow. Drink clear fluids in small amounts as you are able. Clear fluids include: ?Water. ?Ice chips. ?Fruit juice that has water added (diluted fruit juice). ?Low-calorie sports drinks. Eat bland, sggi-hd-fxvjil foods in small amounts as you are able. These foods include: ?Bananas. ?Applesauce. ?Rice. ?Lean meats. ?[place]. ?Crackers. Do not eat or drink: ?Fluids that have a lot of sugar or caffeine. ?Alcohol. ?Spicy or fatty foods. General instructions Take wsdu-evi-qrfnmuc and prescription medicines only as told by your doctor. Use a cool mist humidifier to add moisture to the air in your home. This can make it easier for you to breathe. Cover your mouth and nose when you cough or sneeze. Wash your hands with soap and water often, especially after you cough or sneeze. If you cannot use soap and water, use alcohol-based hand supervisor belt and link assembly. Keep all follow-up visits as told by your doctor. This is important. How is this prevented? Get a flu shot every year. You may get the flu shot in late summer, fall, or winter. Ask your doctor when you should get your flu shot. Avoid contact with people who are sick during fall and winter (cold and flu season). Contact a doctor if: You get new symptoms. You have: ?Chest pain. ?Watery poop (diarrhea). ?A fever. Your cough gets worse. You start to have more mucus. You feel sick to your stomach. You throw up. Get help right away if you: Have shortness of breath. Have trouble breathing. Have skin or nails that turn a bluish color. Have very bad pain or stiffness in your neck. Get a sudden headache. Get sudden pain in your face or ear. Cannot eat or drink without throwing up. Summary Influenza (the flu) is an infection in the lungs, nose, and throat. It is caused by a virus. Take ggof-gwe-jxhcdxl and prescription medicines only as told by your doctor. Getting a flu shot every year is the best way to avoid getting the flu. This information is not intended to replace advice given to you by your health care provider. Make sure you discuss any questions you have with your health care provider. Document Released: 05/12/2009 Document Revised: 01/19/2019 Document Reviewed: 01/19/2019 [employer] Patient Education 2020 [employer]. 10/13/2024 13:33:25 Hypokalemia Hypokalemia Hypokalemia means that the amount of potassium in the blood is lower than normal. Potassium is a chemical (electrolyte) that helps regulate the amount of fluid in the body. It also stimulates muscle tightening (contraction) and helps nerves work properly. Normally, most of the body's potassium is inside cells, and only a very small amount is in the blood. Because the amount in the blood is so small, minor changes to potassium levels in the blood can be life-threatening. What are the causes? This condition may be caused by: Antibiotic medicine. Diarrhea or vomiting. Taking too much of a medicine that helps you have a bowel movement (laxative) can cause diarrhea and lead to hypokalemia. Chronic kidney disease (CKD). Medicines that help the body get rid of excess fluid (diuretics). Eating disorders, such as bulimia. Low magnesium levels in the body. Sweating a lot. What are the signs or symptoms? Symptoms of this condition include: Weakness. Constipation. Fatigue. Muscle cramps. Mental confusion. Skipped heartbeats or irregular heartbeat (palpitations). Tingling or numbness. How is this diagnosed? This condition is diagnosed with a blood test. How is this treated? This condition may be treated by: Taking potassium supplements by mouth. Adjusting the medicines that you take. Eating more foods that contain a lot of potassium. If your potassium level is very low, you may need to get potassium through an IV and be monitored in the hospital. Follow these instructions at home: Take bsbk-evu-afusyrt and prescription medicines only as told by your health care provider. This includes vitamins and supplements. Eat a healthy diet. A healthy diet includes fresh fruits and vegetables, whole grains, healthy fats, and lean proteins. If instructed, eat more foods that contain a lot of potassium. This includes: ?Nuts, such as peanuts and pistachios. ?Seeds, such as sunflower seeds and pumpkin seeds. ?Peas, lentils, and wang beans. ?Whole grain and bran cereals and breads. ?Fresh fruits and vegetables, such as apricots, avocado, bananas, cantaloupe, kiwi, oranges, tomatoes, asparagus, and potatoes. ?[place] juice. ?Tomato juice. ?Red meats. ?Yogurt. Keep all follow-up visits as told by your health care provider. This is important. Contact a health care provider if you: Have weakness that gets worse. Feel your heart pounding or racing. Vomit. Have diarrhea. Have diabetes (diabetes mellitus) and you have trouble keeping your blood sugar (glucose) in your target range. Get help right away if you: Have chest pain. Have shortness of breath. Have vomiting or diarrhea that lasts for more than 2 days. Faint. Summary Hypokalemia means that the amount of potassium in the blood is lower than normal. This condition is diagnosed with a blood test. Hypokalemia may be treated by taking potassium supplements, adjusting the medicines that you take, or eating more foods that are high in potassium. If your potassium level is very low, you may need to get potassium through an IV and be monitored in the hospital. This information is not intended to replace advice given to you by your health care provider. Make sure you discuss any questions you have with your health care provider. Document Released: 08/03/2006 Document Revised: 03/16/2019 Document Reviewed: 03/16/2019 [employer] Patient Education 2020 [employer]. 10/13/2024 13:33:22 Hypomagnesemia Hypomagnesemia Hypomagnesemia is a condition in which the level of magnesium in the blood is low. Magnesium is a mineral that is found in many foods. It is used in many different processes in the body. Hypomagnesemia can affect every organ in the body. In severe cases, it can cause life-threatening problems. What are the causes? This condition may be caused by: Not getting enough magnesium in your diet. Malnutrition. Problems with absorbing magnesium from the intestines. Dehydration. Alcohol abuse. Vomiting. Severe or chronic diarrhea. Some medicines, including medicines that make you urinate more (diuretics). Certain diseases, such as kidney disease, diabetes, celiac disease, and overactive thyroid. What are the signs or symptoms? Symptoms of this condition include: Loss of appetite. Nausea and vomiting. Involuntary shaking or trembling of a body part (tremor). Muscle weakness. Tingling in the arms and legs. Sudden tightening of muscles (muscle spasms). Confusion. Psychiatric issues, such as depression, irritability, or psychosis. A feeling of fluttering of the heart. Seizures. These symptoms are more severe if magnesium levels drop suddenly. How is this diagnosed? This condition may be diagnosed based on: Your symptoms and medical history. A physical exam. Blood and urine tests. How is this treated? Treatment depends on the cause and the severity of the condition. It may be treated with: A magnesium supplement. This can be taken in pill form. If the condition is severe, magnesium is usually given through an IV. Changes to your diet. You may be directed to eat foods that have a lot of magnesium, such as green leafy vegetables, peas, beans, and nuts. Stopping any intake of alcohol. Follow these instructions at home: Make sure that your diet includes foods with magnesium. Foods that have a lot of magnesium in them include: ?Green leafy vegetables, such as spinach and broccoli. ?Beans and peas. ?Nuts and seeds, such as almonds and sunflower seeds. ?Whole grains, such as whole grain bread and fortified cereals. Take magnesium supplements if your health care provider tells you to do that. Take them as directed. Take ceiy-cbf-aqieyty and prescription medicines only as told by your health care provider. Have your magnesium levels monitored as told by your health care provider. When you are active, drink fluids that contain electrolytes. Avoid drinking alcohol. Keep all follow-up visits as told by your health care provider. This is important. Contact a health care provider if: You get worse instead of better. Your symptoms return. Get help right away if you: Develop severe muscle weakness. Have trouble breathing. Feel that your heart is racing. Summary Hypomagnesemia is a condition in which the level of magnesium in the blood is low. Hypomagnesemia can affect every organ in the body. Treatment may include eating more foods that contain magnesium, taking magnesium supplements, and not drinking alcohol. Have your magnesium levels monitored as told by your health care provider. This information is not intended to replace advice given to you by your health care provider. Make sure you discuss any questions you have with your health care provider. Document Released: 04/29/2006 Document Revised: 07/16/2018 Document Reviewed: 07/05/2018 [employer] Patient Education 2020 [employer]. Follow Up Care 10/08/2024 14:17:41 With:JENNIFER VILLASEÑOR MD Address: [address] [facility] [place] [address]- When: Unknown [facility] 10-13-2024 Note Discharge Instructions Thank you for allowing [facility] to assist you with your healthcare needs. The following is important discharge information regarding your hospital visit. Your Care Team [facility] Your Diagnosis Alcoholic cirrhosis Alcoholism Altered mental status HTN (hypertension) Hypomagnesemia Influenza A Tobacco use Urinary tract infection What to do next Instructions From Your Doctor Patient was admitted on 10/08 due to altered mental status at his assisted living facility. Patient was noted to have 2 large empty bottles of vodka in his room, however, alcohol level was less than 3. He tested positive for influenza A and urinalysis appeared to be infected. Workup otherwise was unremarkable. CT of the brain was negative for any acute findings. Liver enzymes elevated but likely secondary to known cirrhosis. Patient was treated with Ceftriaxone IV and Tamiflu during his admission. Urine culture final today and showing no growth. Antibiotic discontinued. He was placed on [facility] protocol with scheduled Librium and PRN ativan for withdrawal symptoms. Patient was restless on Thursday night/Thursday morning and was given a two doses of IV ativan. He was then noted to be lethargic but would awaken and answer questions. We discontinued his librium and ativan and observed him off of these medications. His mental status improved and he is now awake and alert. He was seen by therapy who recommended a skilled stay. Patient is medically optimized for discharge to SNF today. Follow Up Appointments Follow Up with JENNIFER VILLASEÑOR MD Where:[address] [facility] [place] [address]- The Following Activity and Diet Have Been Ordered for You Transfer of Care Activity - Ordered -- As instructed by therapy, 10/13/24 12:45:00 EST Transfer of Care Diet - Ordered -- Type of Diet: Regular Diet, 10/13/24 12:45:00 EST The Following Treatments Have Been Ordered for You Discharge Labs No qualifying data available. Discharge Radiology No qualifying data available. Other Therapies Transfer of Care OT - Ordered -- Reason for therapy: weakness, 10/13/24 12:45:00 EST Transfer of Care PT - Ordered -- Reason for therapy: Weakness, 10/13/24 12:45:00 EST Post Acute Orders Transfer of Care Admission Level of Care - Ordered -- Level of Care SNF, 10/13/24 12:45:56 EST Transfer of Care Code Status - Ordered -- Full Code, Constant Order Transfer of Care Orders Electronically Signed By - Ordered -- 10/13/24 12:45:00 ESTDAVID RACHEL L APRN-DION Transfer of Care Oxygen Therapy - Ordered -- Oxygen (CONTINUOUS), Mobile in the Home, Nasal Cannula, 2 liters per minute, 999 month(s), 10/13/24 12:45:00 EST Transfer of Care Prognosis - Ordered -- Fair, Patient Aware: Yes Transfer of Care Rehab Potential - Ordered -- Rehab potential fair, 10/13/24 12:45:56 EST Allergies NKA Immunizations This Visit Not Given Vaccine Commentsinfluenza virus vaccine, inactivated Patient Refuses Pt currently has influenza A and refuses the vaccine Medications Please ask your primary doctor or pharmacist before taking any other medication not listed, including over the counter drugs, herbal medications, vitamins and or supplements as they may interact with your home medications. What How Much When Why Instructions Last Dose New losartan (losartan 50 mg oral tablet) 1 tab(s) by mouth Once a day 10/12 @ 0918 (refused 10/13) New magnesium oxide (magnesium oxide 400 mg oral tablet) 1 tab(s) by mouth Three (3) times a day n/a (refused 10/12, 10/13) New pantoprazole (pantoprazole 20 mg oral enteric coated tablet) 2 tab(s) by mouth Once a day before a meal 10/12 @ 0518 (refused 10/13) Unchanged ferrous sulfate (FeroSul 325 mg (65 mg elemental iron) oral tablet) 1 tab(s) by mouth Two (2) times a day Alcohol abuse History of encephalopathy 10/12 @ 1650 (refused 10/13) Unchanged folic acid (folic acid 1 mg oral tablet) 1 tab(s) by mouth Once a day Alcohol abuse History of encephalopathy (refused 10/13) Unchanged methylcobalamin (Vitamin B12 Methylcobalamin 5000 mcg sublingual tablet) 1 tab(s) under the tongue Every week Alcohol abuse History of encephalopathy Unchanged mirtazapine (mirtazapine 30 mg oral tablet) 1 tab(s) by mouth Daily at bedtime Insomnia 10/12 @ 2034 Unchanged thiamine (thiamine 100 mg oral tablet) 1 tab(s) by mouth Every day Alcohol abuse History of encephalopathy (refused 10/13) Unchanged traZODone (traZODone 100 mg oral tablet) 1 tab(s) by mouth Daily at bedtime Duration: 30 Days 10/12 @ 2034 What How Much When Comments Stop Taking acetaminophen (Tylenol) See instructions Oral Please take this list to your next doctor s visit. Bring all medications you take, including over the counter medications, herbals and other supplements with you to your doctor s visit. Patients and families are reminded to discard old lists and to update any records with all medication providers or retail pharmacies. Education Materials Influenza, Adult Influenza is also called the flu. It is an infection in the lungs, nose, and throat (respiratory tract). It is caused by a virus. The flu causes symptoms that are similar to symptoms of a cold. It also causes a high fever and body aches. The flu spreads easily from person to person (is contagious). Getting a flu shot (influenza vaccination) every year is the best way to prevent the flu. What are the causes? This condition is caused by the influenza virus. You can get the virus by: Breathing in droplets that are in the air from the cough or sneeze of a person who has the virus. Touching something that has the virus on it (is contaminated) and then touching your mouth, nose, or eyes. What increases the risk? Certain things may make you more likely to get the flu. These include: Not washing your hands often. Having close contact with many people during cold and flu season. Touching your mouth, eyes, or nose without first washing your hands. Not getting a flu shot every year. You may have a higher risk for the flu, along with serious problems such as a lung infection (pneumonia), if you: Are older than 65. Are . Have a weakened disease-fighting system (immune system) because of a disease or taking certain medicines. Have a long-term (chronic) illness, such as: ? Heart, kidney, or lung disease. ? Diabetes. ? Asthma. Have a liver disorder. Are very overweight (morbidly obese). Have anemia. This is a condition that affects your red blood cells. What are the signs or symptoms? Symptoms usually begin suddenly and last 4 14 days. They may include: Fever and chills. Headaches, body aches, or muscle aches. Sore throat. Cough. Runny or stuffy (congested) nose. Chest discomfort. Not wanting to eat as much as normal (poor appetite). Weakness or feeling tired (fatigue). Dizziness. Feeling sick to your stomach (nauseous) or throwing up (vomiting). How is this treated? If the flu is found early, you can be treated with medicine that can help reduce how bad the illness is and how long it lasts (antiviral medicine). This may be given by mouth (orally) or through an IV tube. Taking care of yourself at home can help your symptoms get better. Your doctor may suggest: Taking vacu-stw-zicyndj medicines. Drinking plenty of fluids. The flu often goes away on its own. If you have very bad symptoms or other problems, you may be treated in a hospital. Follow these instructions at home: Activity Rest as needed. Get plenty of sleep. Stay home from work or school as told by your doctor. ? Do not leave home until you do not have a fever for 24 hours without taking medicine. ? Leave home only to visit your doctor. Eating and drinking Take an ORS (oral rehydration solution). This is a drink that is sold at pharmacies and stores. Drink enough fluid to keep your pee (urine) pale yellow. Drink clear fluids in small amounts as you are able. Clear fluids include: ? Water. ? Ice chips. ? Fruit juice that has water added (diluted fruit juice). ? Low-calorie sports drinks. Eat bland, kkxp-ex-bxbvlr foods in small amounts as you are able. These foods include: ? Bananas. ? Applesauce. ? Rice. ? Lean meats. ? [place]. ? Crackers. Do not eat or drink: ? Fluids that have a lot of sugar or caffeine. ? Alcohol. ? Spicy or fatty foods. General instructions Take ptkl-dzg-aefyeql and prescription medicines only as told by your doctor. Use a cool mist humidifier to add moisture to the air in your home. This can make it easier for you to breathe. Cover your mouth and nose when you cough or sneeze. Wash your hands with soap and water often, especially after you cough or sneeze. If you cannot use soap and water, use alcohol-based hand supervisor belt and link assembly. Keep all follow-up visits as told by your doctor. This is important. How is this prevented? Get a flu shot every year. You may get the flu shot in late summer, fall, or winter. Ask your doctor when you should get your flu shot. Avoid contact with people who are sick during fall and winter (cold and flu season). Contact a doctor if: You get new symptoms. You have: ? Chest pain. ? Watery poop (diarrhea). ? A fever. Your cough gets worse. You start to have more mucus. You feel sick to your stomach. You throw up. Get help right away if you: Have shortness of breath. Have trouble breathing. Have skin or nails that turn a bluish color. Have very bad pain or stiffness in your neck. Get a sudden headache. Get sudden pain in your face or ear. Cannot eat or drink without throwing up. Summary Influenza (the flu) is an infection in the lungs, nose, and throat. It is caused by a virus. Take [id number] and prescription medicines only as told by your doctor. Getting a flu shot every year is the best way to avoid getting the flu. This information is not intended to replace advice given to you by your health care provider. Make sure you discuss any questions you have with your health care provider. Document Released: 05/12/2009 Document Revised: 01/19/2019 Document Reviewed: 01/19/2019 [employer] Patient Education 2020 [employer]. Hypokalemia Hypokalemia means that the amount of potassium in the blood is lower than normal. Potassium is a chemical (electrolyte) that helps regulate the amount of fluid in the body. It also stimulates muscle tightening (contraction) and helps nerves work properly. Normally, most of the body's potassium is inside cells, and only a very small amount is in the blood. Because the amount in the blood is so small, minor changes to potassium levels in the blood can be life-threatening. What are the causes? This condition may be caused by: Antibiotic medicine. Diarrhea or vomiting. Taking too much of a medicine that helps you have a bowel movement (laxative) can cause diarrhea and lead to hypokalemia. Chronic kidney disease (CKD). Medicines that help the body get rid of excess fluid (diuretics). Eating disorders, such as bulimia. Low magnesium levels in the body. Sweating a lot. What are the signs or symptoms? Symptoms of this condition include: Weakness. Constipation. Fatigue. Muscle cramps. Mental confusion. Skipped heartbeats or irregular heartbeat (palpitations). Tingling or numbness. How is this diagnosed? This condition is diagnosed with a blood test. How is this treated? This condition may be treated by: Taking potassium supplements by mouth. Adjusting the medicines that you take. Eating more foods that contain a lot of potassium. If your potassium level is very low, you may need to get potassium through an IV and be monitored in the hospital. Follow these instructions at home: Take [id number] and prescription medicines only as told by your health care provider. This includes vitamins and supplements. Eat a healthy diet. A healthy diet includes fresh fruits and vegetables, whole grains, healthy fats, and lean proteins. If instructed, eat more foods that contain a lot of potassium. This includes: ? Nuts, such as peanuts and pistachios. ? Seeds, such as sunflower seeds and pumpkin seeds. ? Peas, lentils, and wang beans. ? Whole grain and bran cereals and breads. ? Fresh fruits and vegetables, such as apricots, avocado, bananas, cantaloupe, kiwi, oranges, tomatoes, asparagus, and potatoes. ? [place] juice. ? Tomato juice. ? Red meats. ? Yogurt. Keep all follow-up visits as told by your health care provider. This is important. Contact a health care provider if you: Have weakness that gets worse. Feel your heart pounding or racing. Vomit. Have diarrhea. Have diabetes (diabetes mellitus) and you have trouble keeping your blood sugar (glucose) in your target range. Get help right away if you: Have chest pain. Have shortness of breath. Have vomiting or diarrhea that lasts for more than 2 days. Faint. Summary Hypokalemia means that the amount of potassium in the blood is lower than normal. This condition is diagnosed with a blood test. Hypokalemia may be treated by taking potassium supplements, adjusting the medicines that you take, or eating more foods that are high in potassium. If your potassium level is very low, you may need to get potassium through an IV and be monitored in the hospital. This information is not intended to replace advice given to you by your health care provider. Make sure you discuss any questions you have with your health care provider. Document Released: 08/03/2006 Document Revised: 03/16/2019 Document Reviewed: 03/16/2019 [employer] Patient Education 2020 [employer] Hypomagnesemia Hypomagnesemia is a condition in which the level of magnesium in the blood is low. Magnesium is a mineral that is found in many foods. It is used in many different processes in the body. Hypomagnesemia can affect every organ in the body. In severe cases, it can cause life-threatening problems. What are the causes? This condition may be caused by: Not getting enough magnesium in your diet. Malnutrition. Problems with absorbing magnesium from the intestines. Dehydration. Alcohol abuse. Vomiting. Severe or chronic diarrhea. Some medicines, including medicines that make you urinate more (diuretics). Certain diseases, such as kidney disease, diabetes, celiac disease, and overactive thyroid. What are the signs or symptoms? Symptoms of this condition include: Loss of appetite. Nausea and vomiting. Involuntary shaking or trembling of a body part (tremor). Muscle weakness. Tingling in the arms and legs. Sudden tightening of muscles (muscle spasms). Confusion. Psychiatric issues, such as depression, irritability, or psychosis. A feeling of fluttering of the heart. Seizures. These symptoms are more severe if magnesium levels drop suddenly. How is this diagnosed? This condition may be diagnosed based on: Your symptoms and medical history. A physical exam. Blood and urine tests. How is this treated? Treatment depends on the cause and the severity of the condition. It may be treated with: A magnesium supplement. This can be taken in pill form. If the condition is severe, magnesium is usually given through an IV. Changes to your diet. You may be directed to eat foods that have a lot of magnesium, such as green leafy vegetables, peas, beans, and nuts. Stopping any intake of alcohol. Follow these instructions at home: Make sure that your diet includes foods with magnesium. Foods that have a lot of magnesium in them include: ? Green leafy vegetables, such as spinach and broccoli. ? Beans and peas. ? Nuts and seeds, such as almonds and sunflower seeds. ? Whole grains, such as whole grain bread and fortified cereals. Take magnesium supplements if your health care provider tells you to do that. Take them as directed. Take qoks-sra-mubhguq and prescription medicines only as told by your health care provider. Have your magnesium levels monitored as told by your health care provider. When you are active, drink fluids that contain electrolytes. Avoid drinking alcohol. Keep all follow-up visits as told by your health care provider. This is important. Contact a health care provider if: You get worse instead of better. Your symptoms return. Get help right away if you: Develop severe muscle weakness. Have trouble breathing. Feel that your heart is racing. Summary Hypomagnesemia is a condition in which the level of magnesium in the blood is low. Hypomagnesemia can affect every organ in the body. Treatment may include eating more foods that contain magnesium, taking magnesium supplements, and not drinking alcohol. Have your magnesium levels monitored as told by your health care provider. This information is not intended to replace advice given to you by your health care provider. Make sure you discuss any questions you have with your health care provider. Document Released: 04/29/2006 Document Revised: 07/16/2018 Document Reviewed: 07/05/2018 [employer] Patient Education 2020 [employer] Additional Information VACCINATE! IT SAVES LIVES! Members of the community who have not yet received the COVID-19 vaccine and would like to receive it can visit one of [facility] vaccine clinics. There are many vaccine clinic locations within the [facility]. For locations and available times, please visit [email or web address].[place].gov/. It is important to note that some COVID mobile vaccine clinics are held outdoors and may be canceled in rainy or stormy conditions. To learn more about pediatric vaccinations (ages 5-11), we invite you to visit the [facility] webpage. [email or web address] To learn more about the COVID-19 vaccine, we invite you to visit the CDC website for a list of frequently asked questions.https://www.cdc.gov/cor onavirus/2019-ncov/vaccines/faq.h tml Room Patient Portal Access Instructions: Stay connected with your healthcare team and access your personal medical information anytime with the Room Patient Portal. Please follow the directions below to create your Room account: 1.Access the email account you provided upon registration to the hospital/physician office.2.Look for an invitation email from [facility].3.Open the email and access the invitation link: Accept Invitation to Room.4.Fill in the required allen to create your account. To access your account, visit [email or web address]. Click the blue button labeled Access Patient Portal and then log in with the username and password that you created in the steps above. You will be able to view your test results, lab results, a summary of your visits, upcoming appointments and more. There is also a convenient messaging option where you can send secure messages to your provider. In addition, you will have the ability to download any documents or summaries to your computer and/or send the information securely to a physician. Remember that your healthcare information is confidential, so carefully consider who you will allow to register on the [facility] Patient Portal for access to your information. You can also access the [facility] Patient Portal on the [facility] louisa. Simply click on Patient Portal and then log into your account. If you would like to receive a full copy of your medical records, please contact the [facility] Medical Records Department by calling [phone], Thursday through Thursday between 8 a.m. and 4:30 p.m. HOW TO SAFELY DISPOSE OF PRESCRIPTION MEDICATIONS Please use one of the following methods to safely dispose of your unused medications. 1.Use a drug disposal kit: the drug disposal pouch allows you to safely discard your old and unused drugs. Ask your nurse to give you one when you are discharged.2.Visit a local take-back location: Many local pharmacies and police departments have programs that collect old and unwanted prescription drugs. Call your local pharmacy or go to http://Meilishuo/0B3Vd4m to find one close to you.3.Make use of household items: Use cat litter or old coffee grounds to dispose medications if other options are not available. Mix your drugs with these household products, seal them in an airtight container and throw it into the garbage. Call [facility]: [phone] to be sure your drugs can be disposed of in this way. Some medicines may require a different approach.4.Never flush your medications down the toilet. IF YOU HAVE BEEN PRESCRIBED AN OPIOID FOR PAIN If you have been prescribed an opioid (such as hydrocodone, oxycodone or morphine), it is critical to understand the possible side effects and risks of opioid pain medications. Even when taken as directed, opioids can have several side effects including: Tolerance, meaning you might need to take more of a medication for the same pain relief. Nausea, vomiting and/or constipation. Sleepiness, dizziness, dry mouth, confusion, depression or itching. Physical dependence, meaning you have withdrawal symptoms when a medication is stopped, can develop within a few days. KNOW YOUR RESPONSIBILITIES It is important to know exactly how much and how often to take the opioid pain medications you are prescribed. Never take opioids in higher amounts or more often than prescribed. Do not combine opioids with alcohol or other drugs that cause drowsiness, such as benzodiazepines, also known as benzos, including diazepam and alprazolam, muscle relaxants or sleep aids. Never sell or share prescription opioids. This is illegal. Store opioids in a secure place and out of reach of others (including children, family, friends and visitors). The last page of this document has been signed and retained as a CHART COPY. Signatures Patient Education Materials Influenza, Adult, Unol-tg-Aqhd Hypokalemia Hypomagnesemia Medication Leaflets My discharge plan and instructions have been reviewed and explained to me and I,JENNIFER YORK understand my current condition and have read and understand these discharge instructions. I have received a written copy of the plan/instructions. If I have questions, I am aware that I should contact my doctor. 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 Patient was educated on why he is ordered this medication and continued to refuse. Patient did take his other scheduled evening medications after this nurse spent 40 minutes in the room explaining why he needed to take his medications and their importance. When this nurse explained importance of the Mag Oxide to give to the patient, he stated, I am done taking anymore damn pills. Digitally Signed by Jessie Smith RN on 10/12/2024 10:21 PM [facility] 10-12-2024 Note Date of Service 10/12/24 Chief Complaint AMS Subjective Patient had a low-grade temperature overnight of 37.8. Since then he has been afebrile, hemodynamically stable with adequate oxygenation on room air. Magnesium level this morning is 1.6. He is persistently low given alcohol dependence. AST trending down. He has not required any as needed Ativan. Patient was evaluated by therapy with recommendation for SNF. Pre-CERT is pending. Patient has no complaints today. Objective Vitals and Measurements T: 37.2 C (Oral) TMIN: 37.1 C (Oral) TMAX: 37.8 C (Oral) HR: 81 (Monitored) RR: 18 BP: 120/84 SpO2: 95% WT: 83.4 kg Intake and Output 7AM Yesterday to 7AM Today Intake and Output (Last 24 hours) Intake Output Urine Voided 100.00 Urine Count 4.00 Diaper Count 7.00 Total Summary Total Intake 0.00 Total Output 100.00 Fluid Balance -100.00 Physical Exam GEN: Appears chronically ill CHEST: Normal S1 and S2. Rhythm is regular. Clear and diminished ABD: Positive bowel sounds x 4 quads. Soft, nondistended, nontender. EXT: No significant deformity or joint abnormality. No edema. Peripheral pulses intact. NEURO: Sensation grossly intact SKIN: Skin color normal PSYCH: The mental examination revealed the patient was alert and interactive Weight Current Weight Dosing Weight: 81.7 kg (10/10/24) Current Weight: 83.4 kg (10/12/24) Dosing Weight: 81.1 kg (10/08/24) Current Weight: 82.6 kg (10/11/24) Medications Medications (19) Active Scheduled: (11) ferrous sulfate 325 mg Tablet 325 mg 1 tab(s), Oral, BID folic acid 1 mg tablet 1 mg 1 tab(s), Oral, qDay losartan 50 mg tablet 50 mg 1 tab(s), Oral, qDay magnesium oxide 400 mg Tablet 400 mg 1 tab(s), Oral, TID mirtazapine 15 mg tablet 30 mg 2 tab(s), Oral, qHS Nicoderm patch REMOVAL 1 EA, Miscellaneous, q24h nicotine 21 mg/24 hr ER patch 21 mg 1 patch(es), Transdermal, q24h pantoprazole 20 mg EC tablet 40 mg 2 tab(s), Oral, qDayAC potassium bicarbonate -citric acid 25 mEq EFF tablet 25 mEq 1 tab(s), Oral, BIDM thiamine (w/calcium) 100 mg tablet 100 mg 1 tab(s), Oral, qDay traZODONE 50 mg Tablet 50 mg 1 tab(s), Oral, qHS Continuous: (0) PRN: (8) acetaminophen 325 mg Tablet 650 mg 2 tab(s), Oral, q4h acetaminophen 325 mg Tablet 650 mg 2 tab(s), Oral, q4h albuterol - ipratropium 2.5 mg-0.5 mg/3 mL Inhal Rajni UD 3 mL, Inhalation, q4hRT benzonatate 100 mg Capsule 100 mg 1 cap(s), Oral, TID calcium carbonate 500 mg Chewable 500 mg 1 tab(s), Chewed, TID guaifenesin 100 mg/5 mL Liquid 120 mL 200 mg 10 mL, Oral, q4h melatonin 3 mg tablet 6 mg 2 tab(s), Oral, qHS ondansetron 2 mg/ 1 mL 2 mL INJ 4 mg 2 mL, IV Push, q4h Lab Results 10/12 05:43 Glucose Level: 82 Sodium Level: 134 L Potassium Level: 3.6 BUN: 7 Creatinine Lvl (s): 0.76 10/11 06:06 WBC: 3.5 L Hgb: 10.4 L Hct: 30.7 L Platelet: 111 L Neutrophil %: 69.5 Protime: 14.4 PT International Ratio: 1.2 Glucose Level: 80 Sodium Level: 135 L Potassium Level: 3.7 BUN: 7 Creatinine Lvl (s): 0.67 L Imaging Results and Diagnostics CT Head or Brain w/o Contrast Result Date: October 10, 2024 Verified By: JENIFER ORGERS MD CLINICAL STATEMENT: IMPRESSION: 1. No acute intracranial pathology.2. Mild parenchymal volume loss and chronic microvascular white matterischemic disease. CT Head or Brain w/o Contrast Result Date: October 08, 2024 Verified By: TE BADILLO MD CLINICAL STATEMENT: IMPRESSION: No intracranial hemorrhage. No mass effect XR Chest 1 View Result Date: October 08, 2024 Verified By: AUGUSTIN PRADO MD CLINICAL STATEMENT: IMPRESSION: 1. There is no consolidation or effusion. EKG No qualifying data available. Assessment/Plan 1. Influenza A 2. Alcoholic cirrhosis 3. Altered mental status 4. HTN (hypertension) 5. Hypomagnesemia Orders: Influenza A patient has been weaned to room air with adequate oxygenation. Continue supportive measures. Alcoholic cirrhosis-no signs of withdrawal. Continue folic acid and thiamine. AST trending down. Altered mental status improving. Patient is alert and interactive today. HTN- SBP goal 140 or less. Continue home antihypertensives. Hypomagnesemia secondary to alcohol use. Magnesium sulfate IV today. Start magnesium oxide 400 mg p.o. 3 times daily. Weakness pending pre-CERT for SNF. There was concern for UTI however urine culture showing NGTD. Antibiotics discontinued. DVT prophylaxis: SCDs Code Status: Full code Plan of care discussed with patient. All questions answered. Patient verbalizes understanding is agreeable to plan of care. This dictation was performed using voice recognition software and may include grammatical and/or spelling errors. Anticipated Date of Discharge Patient is medically optimized for discharge. Awaiting insurance precert Time Spent 42 minutes Digitally Signed by TERESA HERNANDEZ on 10/12/2024 05:09 PM [facility] 10-11-2024 Note Date of Service 10/11/2024 Chief Complaint lethargic Subjective Patient seen and evaluated this morning with nursing at the bedside. Per nursing, patient has remained very lethargic and only waking up minimally with care. Will ask respiratory therapy to obtain ABGs. Ammonia level this am remained low. Patient was given multiple doses of Ativan Thursday night due to agitation. With his cirrhosis he may be clearing that from his system very slowly. No further benzos given since early Thursday morning. Will give 1 liter NS bolus due to urine looking dark and concentrated. Patient was sent for repeat CT scan yesterday and it was negative for infarct or hemorrhage. Patient answered the orientation questions this morning but with much encouragement. He seemed annoyed that he was being asked questions. Labs and vital signs have remained stable. Will continue to monitor patient. Patient admitted on 10/08 from his assisted living facility, [facility]. Patient is an alcoholic with cirrhosis. EMS found 2 large empty vodka bottles in his room. Someone brings him alcohol apparently. Workup in the ED largely unremarkable except he was positive for influenza A and possible UTI. He was started on Ceftriaxone and Tamiflu, IV fluids. Urine culture negative so Ceftriaxone discontinued today. He has been very lethargic the last 2 days. He was given IV ativan Thursday night into Thursday morning and we believe that he was not clearing it due to cirrhosis. He is more awake and alert tonight. Therapy saw today and recommended a skilled stay. rigging worker is working on [facility] for skilled stay. As long as awake and alert, he could be ready for discharge tomorrow. Objective Vitals and Measurements T: 36.8 C (Oral) TMIN: 36.8 C (Oral) TMAX: 38.3 C (Oral) HR: 94 (Monitored) RR: 20 BP: 122/88 SpO2: 94% WT: 82.6 kg Intake and Output 7AM Yesterday to 7AM Today Intake and Output (Last 24 hours) Intake Output Diaper Count 6.00 Total Summary Total Intake 0.00 Total Output 0.00 Fluid Balance 0.00 Physical Exam General: No acute distress. Patient is alert, chronically ill-appearing. Skin: No rash. Skin is warm, dry and intact. HEENT: Head is normocephalic, atraumatic. Pupils are equal, round and reactive. Mouth is without lesion. Nose without septal deviation. Neck: Supple. No lymphadenopathy, thyromegaly. Lungs: Bilaterally clear but diminished without crepitation or wheeze. Unlabored. Heart: Heart is regular rhythm, S1, S2. No murmurs, gallops or rubs. Abdomen: Abdomen is soft, nontender. Bowels sounds present in all quadrants. Extremities: No clubbing, cyanosis, or edema. Peripheral pulses palpable. No calf tenderness. Neurological: Patient is awake and alert to person, place and time; slow to answer. Following simple commands, moving all extremities. Weight Current Weight Dosing Weight: 81.7 kg (10/10/24) Current Weight: 82.6 kg (10/11/24) Dosing Weight: 81.1 kg (10/08/24) Current Weight: 81.8 kg (10/09/24) Medications Medications (20) Active Scheduled: (12) cefTRIAXone 1 gram(s), IV Piggyback, qDay ferrous sulfate 325 mg Tablet 325 mg 1 tab(s), Oral, BID folic acid 1 mg tablet 1 mg 1 tab(s), Oral, qDay losartan 50 mg tablet 50 mg 1 tab(s), Oral, qDay mirtazapine 15 mg tablet 30 mg 2 tab(s), Oral, qHS Nicoderm patch REMOVAL 1 EA, Miscellaneous, q24h nicotine 21 mg/24 hr ER patch 21 mg 1 patch(es), Transdermal, q24h oseltamivir 75 mg capsule 75 mg 1 cap(s), Oral, BID pantoprazole 20 mg EC tablet 40 mg 2 tab(s), Oral, qDayAC potassium bicarbonate -citric acid 25 mEq EFF tablet 25 mEq 1 tab(s), Oral, BIDM thiamine (w/calcium) 100 mg tablet 100 mg 1 tab(s), Oral, qDay traZODONE 50 mg Tablet 50 mg 1 tab(s), Oral, qHS Continuous: (0) PRN: (8) acetaminophen 325 mg Tablet 650 mg 2 tab(s), Oral, q4h acetaminophen 325 mg Tablet 650 mg 2 tab(s), Oral, q4h albuterol - ipratropium 2.5 mg-0.5 mg/3 mL Inhal Rajni UD 3 mL, Inhalation, q4hRT benzonatate 100 mg Capsule 100 mg 1 cap(s), Oral, TID calcium carbonate 500 mg Chewable 500 mg 1 tab(s), Chewed, TID guaifenesin 100 mg/5 mL Liquid 120 mL 200 mg 10 mL, Oral, q4h melatonin 3 mg tablet 6 mg 2 tab(s), Oral, qHS ondansetron 2 mg/ 1 mL 2 mL INJ 4 mg 2 mL, IV Push, q4h Lab Results 10/11 06:06 WBC: 3.5 L Hgb: 10.4 L Hct: 30.7 L Platelet: 111 L Neutrophil %: 69.5 Protime: 14.4 PT International Ratio: 1.2 Glucose Level: 80 Sodium Level: 135 L Potassium Level: 3.7 BUN: 7 Creatinine Lvl (s): 0.67 L 10/10 05:31 WBC: 3.4 L Hgb: 9.5 L Hct: 28.2 L Platelet: 96 L Neutrophil %: 67.3 Glucose Level: 79 L Sodium Level: 138 Potassium Level: 2.8 L BUN: 6 L Creatinine Lvl (s): 0.67 L Imaging Results and Diagnostics CT Head or Brain w/o Contrast Result Date: October 10, 2024 Verified By: JENIFER ROGERS MD CLINICAL STATEMENT: IMPRESSION: 1. No acute intracranial pathology. 2. Mild parenchymal volume loss and chronic microvascular white matterischemic disease. CT Head or Brain w/o Contrast Result Date: October 08, 2024 Verified By: TE BADILLO MD CLINICAL STATEMENT: IMPRESSION: No intracranial hemorrhage. No mass effect XR Chest 1 View Result Date: October 08, 2024 Verified By: AUGUSTIN PRADO MD CLINICAL STATEMENT: IMPRESSION: 1. There is no consolidation or effusion. EKG No qualifying data available. Assessment/Plan 1. Altered mental status Acute, new onset, likely secondary to influenza A infection and/or alcohol use. Ethanol level less than 3 despite 2 large empty bottles of vodka in patient's room at [facility]. Patient may be hypersomnolent today secondary to slowly clearing of librium and ativan. Will stop all benzodiazepines and monitor patient's mental status off of those. Monitor closely for safety. 2. Influenza A Acute, new onset. Continue Tamiflu 75 mg PO BID x 5 days, stop 10/12. May have duoneb aerosols as needed for shortness of breath/wheezing. 3. Urinary tract infection Urine culture showing no growth - final. Stop Ceftriaxone. 4. Hypomagnesemia Acute on chronic, likely secondary to alcohol abuse, 1.6 this am. Give additional 4 grams magnesium sulfate IV today and repeat magnesium level in the am. 5. Alcoholism Chronic. Continue CIWA protocol. All benzodiazepines stopped. Will monitor patient off of those. Continue folic acid 1 mg and thiamine 100 mg PO daily. 6. Alcoholic cirrhosis Chronic. Monitor liver panel daily. Avoid hepatotoxic agents. Ammonia level low. 7. HTN (hypertension) Chronic. Continue current home medications. 8. Tobacco use Chronic. May have nicotine patch daily. DVT prophylaxis with SCDs, INR 1.2 today, hx cirrhosis. Code status: Full Code. Labs, diagnostic test and progress notes reviewed as noted in HPI. Plan of care discussed with patient. All questions answered. Patient verbalizes understanding and is agreeable with plan of care. This case was discussed with collaborating physician, Dr. Nirmal Sevilla. Anticipated Date of Discharge next 24-48 hours - will likely need to go to [facility] for a while Time Spent 38 minutes spent reviewing past diagnostic tests, reviewing lab results, vital sign trends, medical history, reviewing medications and ordering home medications, examining patient, discussed plan of care with care team, collaborating with physician, and documenting in chart. Digitally Signed by CINDY BAILEY on 10/11/2024 01:57 PM Digitally Signed by CINDY BAILEY on 10/11/2024 07:24 PM [facility] 10-11-2024 Note . MICRO - Microbiology PROCEDURE: Urine Culture [O1 *1] SOURCE: Urine BODY SITE: COLLECTED DATE/TIME: 10/08/2024 15:41 EST RECEIVED DATE/TIME: 10/09/2024 12:27 EST START DATE/TIME: 10/09/2024 12:27 EST FREE TEXT SOURCE: FINAL REPORTS Final Report [] Verified Date/Time/Personnel: 10/11/2024 07:47 EST No growth at 48 hours. PRELIMINARY REPORTS Preliminary Report [] Verified Date/Time/Personnel: 10/10/2024 09:40 EST No growth to date Order Comments O1: Urine Culture Added by Discern Performing Locations *1: This test was performed at: [facility], [address] [place] [address], [facility] , [facility] 10-10-2024 Note Exam Date Time Procedure Performing Provider Status 10/10/24 3:[address] Head or Brain w/o Contrast JENIFER ROGERS MD; Auth (Verified) [id number] ORIGINAL EXAMINATION: CT HEAD TECHNIQUE: Axial CT images from skull base to vertex without IV contrast. This exam was performed according to our departmental dose optimization program, and includes the following measures where applicable: automated exposure control, adjustment of the mAs and/or kVp according to patient size and/or exam, and an iterative reconstruction algorithm. COMPARISON: CT head 10/08/2024 HISTORY: ORDERING SYSTEM PROVIDED HISTORY: Reason for Exam: altered mental status FINDINGS: Parenchyma: No acute intracranial hemorrhage, midline shift, mass effect or acute ischemic infarct is demonstrated. The winters-white matter junctions are preserved. No space occupying intra-axial masses or extra-axial fluid collections are seen. Mild parenchymal volume loss is noted. Scattered areas of decreased attenuation are identified in the subcortical, periventricular, and deep white matter statistically reflecting mild chronic microvascular white matter ischemic disease. Ventricles: Proportionally prominent ventricular to sulcal size on the basis of parenchymal volume loss. Vessels: Atherosclerotic calcifications of the left ICA siphon. Orbits: Unremarkable. Post bilateral lens implant surgery. Calvarium: No acute osseous pathology. Redemonstrated thinning of the right parietal bone. Paranasal sinuses: Bilateral maxillary sinus retention cysts. Trace mucosal thickening of the bilateral ethmoid sinuses. Mastoid sinuses: Clear. IMPRESSION: 1. No acute intracranial pathology. 2. Mild parenchymal volume loss and chronic microvascular white matter ischemic disease. Interpreted by: Jenifer Rogers MD Preliminary Report By: Jenifer Rogers MD Electronically signed By Jenifer Rogers MD Dictated Date: 10/10/2024 4:29:14 PM Prelim Date: 10/10/2024 4:34:44 PM Sign Date: 10/10/2024 4:34:44 PM Ordering Provider: CINDY BAILEY [facility]02-24-2025 manager night Note TC to patient's ex- to gather information/administer SDOH (as patient is experiencing confusion/is in isolation); LVM. Will continue to follow. Digitally Signed by Teresa Mccoy on 10/10/2024 02:14 PM [facility]02-24-2025 Note Date of Service 10/10/2024 Chief Complaint drowsiness Subjective Patient seen and evaluated this morning while resting in bed. He awakens to name but then returns to sleep quickly. He was holding his orange juice in his hand when he fell asleep and spilled his juice all over. Patient denies any complaints this morning. He has been afebrile since last night. Vital signs otherwise stable. Potassium and magnesium still low this morning. Will replace those IV. Will change his librium to PRN to see if patient will wake up more. Ordered PT and OT to see him this morning but, in his current state, they will probably not be able to get him to do much with them. Overall, he appears to be better medically but we need him to wake up more to assess mental status. Will check an ammonia level this morning. His liver function appears to be better than it was on admission. Patient denies any questions. Objective Vitals and Measurements T: 36.7 C (Oral) TMIN: 36.7 C (Oral) TMAX: 39.3 C (Oral) HR: 73 (Monitored) RR: 20 BP: 133/87 SpO2:96% WT: 81.7 kg Intake and Output 7AM Yesterday to 7AM Today Intake and Output (Last 24 hours) Intake Oral Intake 340.00 Administration Information 750.00 Output Stool Count 0.00 Urine Count 5.00 Diaper Count 1.00 Total Summary Total Intake 1090.00 Total Output 0.00 Fluid Balance 1090.00 Physical Exam General: No acute distress. Patient is drowsy, chronically ill-appearing. Skin: No rash. Skin is warm, dry and intact. HEENT: Head is normocephalic, atraumatic. Pupils are equal, round and reactive. Neck: Supple. No lymphadenopathy, thyromegaly. Lungs: Bilaterally clear but diminished without crepitation or wheeze. Unlabored. Heart: Heart is regular rhythm, S1, S2. No murmurs, gallops or rubs. Abdomen: Abdomen is soft, nontender. Bowels sounds present in all quadrants. Extremities: No clubbing, cyanosis, or edema. Peripheral pulses palpable. No calf tenderness. Neurological: Patient is drowsy, not answering many questions. Weight Current Weight Dosing Weight: 81.7 kg (10/10/24) Current Weight: 81.8 kg (10/09/24) Dosing Weight: 81.1 kg (10/08/24) Medications Medications (24) Active Scheduled: (11) cefTRIAXone 1 gram(s), IV Piggyback, qDay ferrous sulfate 325 mg Tablet 325 mg 1 tab(s), Oral, BID losartan 50 mg tablet 50 mg 1 tab(s), Oral, qDay mirtazapine 15 mg tablet 30 mg 2 tab(s), Oral, qHS Nicoderm patch REMOVAL 1 EA, Miscellaneous, q24h nicotine 21 mg/24 hr ER patch 21 mg 1 patch(es), Transdermal, q24h oseltamivir 75 mg capsule 75 mg 1 cap(s), Oral, BID pantoprazole 20 mg EC tablet 40 mg 2 tab(s), Oral, qDayAC potassium bicarbonate -citric acid 25 mEq EFF tablet 25 mEq 1 tab(s), Oral, BIDM potassium chloride (PMX) 20 mEq/100 mL 20 mEq 100 mL, IV Piggyback, q2hrs traZODONE 50 mg Tablet 50 mg 1 tab(s), Oral, qHS Continuous: (0) PRN: (13) acetaminophen 325 mg Tablet 650 mg 2 tab(s), Oral, q4h acetaminophen 325 mg Tablet 650 mg 2 tab(s), Oral, q4h albuterol - ipratropium 2.5 mg-0.5 mg/3 mL Inhal Rajni UD 3 mL, Inhalation, q4hRT benzonatate 100 mg Capsule 100 mg 1 cap(s), Oral, TID calcium carbonate 500 mg Chewable 500 mg 1 tab(s), Chewed, TID chlordiazepoxide 25 mg capsule 25 mg 1 cap(s), Oral, BID guaifenesin 100 mg/5 mL Liquid 120 mL 200 mg 10 mL, Oral, q4h LORAZEPam 0.5 mg tablet 1 mg 2 tab(s), Oral, q30min LORAZEPam 0.5 mg tablet 0.5 mg 1 tab(s), Oral, q30min LORAZEPam 2 mg/mL 1 mL vial 1 mg 0.5 mL, IV Push, q30min LORAZEPam 2 mg/mL 1 mL vial 0.5 mg 0.25 mL, IV Push, q30min melatonin 3 mg tablet 6 mg 2 tab(s), Oral, qHS ondansetron 2 mg/ 1 mL 2 mL INJ 4 mg 2 mL, IV Push, q4h Lab Results 10/10 05:31 WBC: 3.4 L Hgb: 9.5 L Hct: 28.2 L Platelet: 96 L Neutrophil %: 67.3 Glucose Level: 79 L Sodium Level: 138 Potassium Level: 2.8 L BUN: 6 L Creatinine Lvl (s): 0.67 L 10/09 05:04 WBC: 4.0 L Hgb: 9.0 L Hct: 24.8 L Platelet: 246 Neutrophil %: 75.5 H Glucose Level: 103 Sodium Level: 134 L Potassium Level: 3.0 L BUN: 5 L Creatinine Lvl (s): 0.65 L Imaging Results and Diagnostics CT Head or Brain w/o Contrast Result Date: October 08, 2024 Verified By: TE BADILLO MD CLINICAL STATEMENT: IMPRESSION: No intracranial hemorrhage. No mass effect XR Chest 1 View Result Date: October 08, 2024 Verified By: AUGUSTIN PRADO MD CLINICAL STATEMENT: IMPRESSION: 1. There is no consolidation or effusion. EKG No qualifying data available. Assessment/Plan 1. Altered mental status Acute, new onset, likely secondary to urinary tract infection and/or influenza A infection. Ethanollevel less than 3 despite 2 large empty bottles of vodka in patient's room. Will continue Ceftriaxone 1 gram IV daily pending results of urine culture and blood cultures. Cultures showing no growth to date. Patient may be hypersomnolent today secondary to Librium. Will change Librium to PRN today. Monitor closely for safety. 2. Influenza A Acute, new onset. Continue Tamiflu 75 mg PO BID x 5 days, stop 10/12. May have duoneb aerosols as needed for shortness of breath/wheezing. 3. Urinary tract infection Acute, new onset. Continue Ceftriaxone 1 gram IV daily pending results of urine and blood cultures.Cultures showing no growth to date this morning. 4. Hypomagnesemia Acute on chronic, likely secondary to alcohol abuse, 1.5 this am. Give additional 4 grams magnesiumsulfate IV today and repeat magnesium level in the am. 5. Alcoholism Chronic. Continue CIWA protocol with lorazepam PRN for agitation. Continue librium 25 mg BID PRN for agitation. Continue folic acid 1 mg and thiamine 100 mg PO daily. 6. Alcoholic cirrhosis Chronic. Monitor liver panel daily - improved. Avoid hepatotoxic agents. Ammonia level 20 on admission. Repeat ammonia level today. 7. HTN (hypertension) Chronic. Continue current home medications. 8. Tobacco use Chronic. May have nicotine patch daily. DVT prophylaxis with SCDs, INR 1.3 today, hx cirrhosis. Code status: Full Code. Labs, diagnostic test and progress notes reviewed as noted in HPI. Plan of care discussed with patient. All questions answered. Patient verbalizes understanding and is agreeable with plan of care. This case was discussed with collaborating physician, Dr. Jyoti He. Anticipated Date of Discharge next 24 hours Time Spent 37 minutes spent reviewing past diagnostic tests, reviewing lab results, vital sign trends, medicalhistory, reviewing medications and ordering home medications, examining patient, discussed plan of care with care team, collaborating with physician, and documenting in chart.7 Digitally Signed by CINDY BAILEY on 10/10/2024 12:29 PM [facility]02-22-2025 Note Date of Service 10/08/2024 Chief Complaint ems squad stated that pt was found at his assisted living confused, unstable gate. pt was found with 2 large bottles of vodka empty. pt has hx of liver issues due to drinking. pt brought in for evalution. History of Present Illness Patient is a 64-year-old male, who follows with Dr. Jennifer Villaseñor with a past medical history significant for alcoholic cirrhosis, alcoholism, hypertension, hyperlipidemia, tremors, and anxiety, presented to [facility] emergency department with the chief complaint of confusion. Patient is a resident of [facility] and was noted by staff to have an unsteady gait and confusion today. The squad did find 2 large bottles of vodka empty in his room and patient smells of alcohol. He continues to be confused in the ED and is unable to answer any review of system questions. He is febrile and tachycardic in the ED but shows no obvious signs of distress. In the emergency department, chest x-ray demonstrated no consolidation or effusion. CT of the head no intracranial hemorrhage or mass effect. CBC remarkable for hemoglobin 10.2, hematocrit 29.4 and platelet count 138. BMP significant for glucose 126, potassium 3.2, and magnesium 0.8. Troponin, lactic acid and ammonia within normal limits. Liver profile significant for total bilirubin 4.6, alkaline phosphatase 155, and AST 266. BNP 946. Urinalysis significant for large bilirubin, 15 ketones, trace blood, greater than 300 protein, urobilinogen greater than 8, positive nitrites, and 15-25 urine WBC. Urine and blood cultures pending. Flu A positive. Patient was administered 2 grams mag sulfate IV, IV fluids, 3.375 grams Zosyn IV, 1250 mg vancomycin IV and 40 meq potassium chloride IV in the ED. The case was discussed with the ED physician who recommended admission for treatment of altered mental status likely from influenza A and urinary tract infection. Patient will be transferred to telemetry for further evaluation and treatment. We will start Ceftriaxone 1 gram IV daily to treat urinary tract infection. We will start Tamiflu 75 mg PO BID to treat influenza. Continue LR @ 75cc/hr x 24 hours. Start CIWA protocol with ativan PRN for agitation. Repeat CBC, BMP and magnesium in the am. Patient seen and evaluated while resting on the cot in the ED. He answers very few questions but stares. Physical exam unremarkable except for tachycardia. Patient made aware that he is being admitted to treat him for influenza and urinary tract infection. Review of Systems Review of Systems: Reviewed in detail, including general health, HEENT, cardiovascular, respiratory, gastrointestinal, genitourinary, endocrine, musculoskeletal, neurologic, vascular, skin, and psychiatric. All are negative except for those listed in the History of Present Illness. Physical Exam Vitals and Measurements T: 39.1 C (Oral) HR: 110 RR: 18 BP: 123/75 SpO2: 96% No qualifying data available. General: No acute distress. Patient is alert, chronically ill-appearing, unkempt. Skin: No rash. Skin is warm, dry and intact. HEENT: Head is normocephalic, atraumatic. Pupils are equal, round and reactive. Neck: Supple. No lymphadenopathy, thyromegaly. Lungs: Bilaterally clear but diminished without crepitation or wheeze. Unlabored. Heart: Heart is regular rhythm, S1, S2, tachycardic. No murmurs, gallops or rubs. Abdomen: Abdomen is soft, nontender. Bowels sounds present in all quadrants. Extremities: No clubbing, cyanosis, or edema. Peripheral pulses palpable. No calf tenderness. Neurological: Patient is awake and alert to self only. Following simple commands, moving all extremities. Lab Results 10/08 14:27 WBC: 4.8 Hgb: 10.2 L Hct: 29.4 L Platelet: 138 L Neutrophil %: 78.2 H Protime: 15.4 H PT International Ratio: 1.3 Glucose Level: 126 H Sodium Level: 136 Potassium Level: 3.2 L BUN: 6 L Creatinine Lvl (s): 1.23 Imaging Results and Diagnostics CT Head or Brain w/o Contrast Result Date: October 08, 2024 Verified By: TE BADILLO MD CLINICAL STATEMENT: IMPRESSION: No intracranial hemorrhage. No mass effect XR Chest 1 View Result Date: October 08, 2024 Verified By: AUGUSTIN PRADO MD CLINICAL STATEMENT: IMPRESSION: 1. There is no consolidation or effusion. EKG EC10/08/24: Atrial fibrillation Repol abnrm suggests ischemia, diffuse leads Baseline wander in lead(s) I,III,aVL Compared to ECG at 05/15/2024 15:38:48 Electronic Signature: TONG PIZARRO DO 10/08/2024 15:54:12 Assessment/Plan 1. Altered mental status Acute, new onset, likely secondary to urinary tract infection and/or influenza A infection. Ethanollevel less than 3 despite 2 large empty bottles of vodka in patient's room. Will start Ceftriaxone 1 gram IV daily pending results of urine culture and blood cultures. Monitor closely for safety. 2. Influenza A Acute, new onset. Start Tamiflu 75 mg PO BID x 5 days. May have duoneb aerosols as needed for shortness of breath/wheezing. 3. Urinary tract infection Acute, new onset. Start Ceftriaxone 1 gram IV daily pending results of urine and blood cultures. 4. Hypomagnesemia Acute on chronic, likely secondary to alcohol abuse. Give additional 4 grams magnesium sulfate IV tonight and repeat magnesium level in the am. 5. Alcoholism Chronic. Start CIWA protocol with lorazepam PRN for agitation. Will start librium 25 mg TID. Start folic acid 1 mg and thiamine 100 mg PO daily. 6. Alcoholic cirrhosis Chronic. Monitor liver profile. Avoid hepatotoxic agents. 7. HTN (hypertension) Chronic. Continue current home medications. 8. Tobacco use Chronic. May have nicotine patch daily. DVT prophylaxis with SCDs. Code status: Full Code. Labs, diagnostic test and progress notes reviewed as noted in HPI. Plan of care discussed with patient. All questions answered. Patient verbalizes understanding and is agreeable with plan of care. This case was discussed with collaborating physician, Dr. Jyoti He. 79 minutes spent reviewing past diagnostic tests, reviewing lab results, vital sign trends, medicalhistory, reviewing medications and ordering home medications, examining patient, discussed plan of care with care team, collaborating with physician, and documenting in chart. 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 Type: Beer. Frequency: Daily. Average drinks per day: 12. Has alcohol use interfered with work or home life: No. Do you ever drink more than intended: Yes. Has anyone been hurt or at risk by your drinking: No. Ready to change: Yes. Concerns about alcohol use in household: Yes., 05/26/2024 Use: Current. Type: Liquor. Frequency: Several times per day., 03/29/2024 Employment/School Status: Employed. Description: [employer] 11/17/2022 Home/Environment Primary Prescription Benefit Specialist: Self lives with his , Veronica. Spouse Name: Veronica., 11/17/2022 Nutrition/Health Caffeine intake amount: coffee occasional., 08/07/2023 Substance Abuse Use: Never., 05/03/2019 Tobacco Nicotine Use: 10 or more cigarettes (1/2 pack or more)/day in last 30 days, 3/4 ppd. Type: Cigarettes., 05/26/2024 Family History Cancer: Grandparent. Heart attack: Paternal Uncle. Pacemaker pulse generator: Son. Health Status Family Member(s) Mother: History is negative Father: History is unknown Family Member(s) Relationship: Father, Name: Robert York, Age: 85 Years Relationship: Sister, Name: Daniela York, Age: 61 Years, Cause: Down syndrome Immunizations SARS-CoV-2 mRNA (tozinameran) vaccine: 30 unknown unit (11/20/20) SARS-CoV-2 mRNA (tozinameran) vaccine: 30 unknown unit (10/30/20) tetanus/diphth/pertuss (Tdap) adult/adol: 0 unknown unit (06/08/13) Code Status Code Status - Ordered -- 10/08/24 16:31:00 EST, Full Code, Constant Order Digitally Signed by CINDY BAILEY on 10/08/2024 05:06 PM Digitally Signed by JYOTI HE MD [facility]02-22-2025 Note* Exam Date Time Procedure Performing Provider Status 10/08/24 3:[address] Head or Brain w/o Contrast TE BADILLO MD; Auth (Verified) [id number] ORIGINAL EXAMINATION: CT OF THE HEAD WITHOUT CONTRAST 10/08/2024 3:31 pm TECHNIQUE: CT of the head was performed without the administration of intravenous contrast. Automated exposure control, iterative reconstruction, and/or weight based adjustment of the mA/kV was utilized to reduce the radiation dose to as low as reasonably achievable. COMPARISON: 11/01/2023 HISTORY: ORDERING SYSTEM PROVIDED HISTORY: Reason for Exam: ams FINDINGS: There is no acute intracranial hemorrhage, mass, mass effect or abnormal extra-axial fluid collection. There is no CT evidence of acute infarct. The density in the larger dural venous sinuses is grossly normal. The ventricles are normal. The skull base and calvarium demonstrate no abnormality. Small retention cysts/polyps seen in the maxillary sinuses. Included mastoid air cells are clear. IMPRESSION: No intracranial hemorrhage. No mass effect Interpreted by: Te Badillo MD Preliminary Report By: Te Badillo MD Electronically signed By Te Badillo MD Dictated Date: 10/08/2024 3:39:53 PM Prelim Date: 10/08/2024 3:42:37 PM Sign Date: 10/08/2024 3:42:37 PM Ordering Provider: [facility]02-22-2025 Note* Exam Date Time Procedure Performing Provider Status 10/08/24 3:30 PM XR Chest 1 View AUGUSTIN PRADO MD; [facility] (Verified) [id number] ORIGINAL EXAMINATION: ONE XRAY VIEW OF THE CHEST 10/08/2024 3:30 pm COMPARISON: 08/05/2024 HISTORY: ORDERING SYSTEM PROVIDED HISTORY: Reason for Exam: ams, cough FINDINGS: There is hypoinflation with accentuation of the cardiomediastinal silhouette and increased bronchovascular markings. There is no consolidation or pleural effusion. There is no pulmonary vascular congestion. There is no pneumothorax. Osseous structures demonstrate degenerative changes. IMPRESSION: 1. There is no consolidation or effusion. Interpreted by: Augustin Prado Preliminary Report By: Augustin Prado Electronically signed By Augustin Prado Dictated Date: 10/08/2024 3:36:09 PM Prelim Date: 10/08/2024 3:39:16 PM Sign Date: 10/08/2024 3:39:16 PM Ordering Provider: TONG PIZARRO [facility]02-22-2025 Note* Exam Date Time Procedure Performing Provider Status 10/08/24 2:28 PM EKG [ED AOH] - CV TONG PIZARRO DO; A [facility] (Verified) ECG Final Report Atrial fibrillation Repol abnrm suggests ischemia, diffuse leads Baseline wander in lead(s) I,III,aVL Compared to ECG at 05/15/2024 15:38:48 Electronic Signature: TONG PIZARRO DO 10/08/2024 15:54:12 [facility]02-22-2025 HCoV 229E RNA VIVIANE+non-probe Ql (Nph) Not Detected *NA* (10/08/24 2:27 PM)AH Auto Viro/Sero [id number] Evaluation + Plan noteExtracted from: Title:History and Physical Author:CINDY BAILEY APRN-OIL DRILLING ENGINEER Date:10/08/24 1. Altered mental status Acute, new onset, likely secondary to urinary tract infection and/or influenza A infection. Ethanol level less than 3 despite 2 large empty bottles of vodka in patient's room. Will start Ceftriaxone 1 gram IV daily pending results of urine culture and blood cultures. Monitor closely for safety. 2. Influenza A Acute, new onset. Start Tamiflu 75 mg PO BID x 5 days. May have duoneb aerosols as needed for shortness of breath/wheezing. 3. Urinary tract infection Acute, new onset. Start Ceftriaxone 1 gram IV daily pending results of urine and blood cultures. 4. Hypomagnesemia Acute on chronic, likely secondary to alcohol abuse. Give additional 4 grams magnesium sulfate IV tonight and repeat magnesium level in the am. 5. Alcoholism Chronic. Start CIWA protocol with lorazepam PRN for agitation. Will start librium 25 mg TID. Start folic acid 1 mg and thiamine 100 mg PO daily. 6. Alcoholic cirrhosis Chronic. Monitor liver profile. Avoid hepatotoxic agents. 7. HTN (hypertension) Chronic. Continue current home medications. 8. Tobacco use Chronic. May have nicotine patch daily. DVT prophylaxis with SCDs. Code status: Full Code. Labs, diagnostic test and progress notes reviewed as noted in HPI. Plan of care discussed with patient. All questions answered. Patient verbalizes understanding and is agreeable with plan of care. This case was discussed with collaborating physician, Dr. Jyoti He. 79 minutes spent reviewing past diagnostic tests, reviewing lab results, vital sign trends, medical history, reviewing medications and ordering home medications, examining patient, discussed plan of care with care team, collaborating with physician, and documenting in chart. [facility] 12-20-2024 Hospital Discharge instructions Patient Education 08/05/2024 18:29:47 Alcohol Withdrawal Alcohol Withdrawal Alcohol withdrawal usually begins after prolonged heavy drinking, and then you suddenly stop drinking, or cut down on your alcohol use. It is not one thing, but is a complex combination of signs and symptoms that generally occur to together and define a particular problem or condition. Alcohol withdrawal is potentially life-threatening, and is a medical emergency. It can start as early as a couple of hours after your last drink, or may take 1 to 3 days to develop. It can last from days to a week or more. It can worsen very quickly. Signs and symptoms There are several stages of alcohol withdrawal, although they overlap, as do their signs and symptoms. In the earlier stages, it most commonly includes: Anxiety Shakiness Nausea and vomiting Sweating Insomnia Headaches Fever Mood swings, irritability, agitation, restlessness Delirium tremens (DTs) DTs are a severe and life-threatening complication. If it happens, it usually begins about 3 to 5 days after your last drink. It is potentially life threatening. DTs are characterized by: Sudden and severe mental or nervous system changes Uncontrollable tremors Severe disorientation, confusion, hallucinations Heart racing, or irregular heartbeat High blood pressure Seizures Possible coma and Home care You will need plenty of rest and fluids over the next several days. Eat regular meals and drink plenty of fluids to prevent dehydration. Do not drink any more alcohol. During this time, it is best that you stay with family or friends who can help and support you. You can also admit yourself to a residential detox program. Do not drive until all symptoms are gone and you are feeling better. if you've had a seizure, don'tdrive until you have been examined by a doctor. If you were given sedative medication to reduce your symptoms, do not take it more often than prescribed and never take it with alcohol. Follow-up care Once you have gone through the withdrawal symptoms, you have fought half of the castro. To avoid the risk of returning to your previous drinking pattern, it is essential that you get follow-up support and treatment. Alcoholics Anonymous offers support through a self-help fellowship. There are no dues or fees. Search the internet or go to www.aa.org to find a local meeting place. [employer] family groups offers support to families of alcohol users. Go to www.alBruder Healthcaren.org National [place] On Alcoholism And Drug Dependence at 223-312-9779 or www.ncadd.org Residential alcohol detox programs are available. Search the internet for drug abuse and treatment centers in your area. Call 911 Call 911 if any of these occur: Seizure Trouble breathing or slow, irregular breathing Chest pain Sudden weakness on one side of the body or sudden trouble speaking Heavy bleeding or vomiting blood Very drowsy or trouble awakening Fainting or loss of consciousness Rapid heart rate When to seek medical advice Call your healthcare provider right away if any of these occur: Severe shakiness Hallucinations Fever over 100.4 F (38.0 C) Headache, confusion, extreme drowsiness, inability to awaken Increasing upper abdominal pain Repeated vomiting [id number] [employer]. [address] [place] [address]. All rights reserved. This information is not intended as a substitute for professional medical care. Always follow yourhealthcare professional's instructions. 08/05/2024 18:29:37 Fracture, Finger, Closed Finger Fracture, Closed You have a broken finger (fracture). This causes local pain, swelling, and bruising. This injury usually takes about 4 to 6 weeks to heal, but can take longer in some cases. Finger injuries are oftentreated with a splint or cast, or by taping the injured finger to the next one (nishi taping). Thisprotects the injured finger and holds the bone in position while it heals. More serious fractures may need surgery. If the fingernail has been severely injured, it will probably fall off in 1 to 2 weeks. A new fingernail will usually start to grow back within a month. Home care Follow these guidelines when caring for yourself at home: Keep your hand elevated to reduce pain and swelling. When sitting or lying down keep your arm abovethe level of your heart. You can do this by placing your arm on a pillow that rests on your chest or on a pillow at your side. This is most important during the first 2 days (48 hours) after the injury. Put an ice pack on the injured area. Do this for 20 minutes every 1 to 2 hours the first day for pain relief. You can make an ice pack by wrapping a plastic bag of ice cubes in a thin towel. As the ice melts, be careful that the cast or splint doesn t get wet. Continue using the ice pack 3 to 4 times a day until the pain and swelling go away. Keep the cast or splint completely dry at all times. Bathe with your cast or splint out of the water. Protect it with a large plastic bag, rubber-banded at the top end. If a fiberglass cast or splintgets wet, you can dry it with a unhairing inspector. If nishi tape was put on and it becomes wet or dirty, change it. You may replace it with paper, plastic, or cloth tape. Cloth tape and paper tapes must be kept dry. Keep the nishi tape in place for at least 4 weeks. You may use acetaminophen or ibuprofen to control pain, unless another pain medicine was prescribed. If you have chronic liver or kidney disease, talk with your healthcare provider before using thesemedicines. Also talk with your provider if you ve had a stomach ulcer or gastrointestinal bleeding. Don t put creams or objects under the cast if you have itching. Follow-up care Follow up with your healthcare provider, or as advised. This is to make sure the bone is healing the way it should. X-rays may be taken. You will be told of any new findings that may affect your care. When to seek medical advice Call your healthcare provider right away if any of these occur: The plaster cast or splint becomes wet or soft The cast or splint cracks The fiberglass cast or splint stays wet for more than 24 hours Pain or swelling gets worse Redness, warmth, swelling, drainage from the wound, or foul odor from a cast or splint Finger becomes more cold, blue, numb, or tingly You can t move your finger The skin around the cast or splint becomes red Fever of 100.4 F (38 C) or higher, or as directed by your healthcare provider [id number] [employer] [address] [place] [address], [place] [address]. All rights reserved. This information is not intended as a substitute for professional medical care. Always follow yourhealthcare professional's instructions. Follow Up Care 08/05/2024 16:26:54 With:JENNIFER VILLASEÑOR MD Address: [address] [place] [address]- When:2-4 days [facility] 12-20-2024 Note Discharge Instructions Thank you for allowing [facility] to assist you with your healthcare needs. The following is importantdischarge information regarding your hospital visit. Diagnosis from Today's Visit Alcohol withdrawal Finger fracture What to Do Next Instructions from Your Care Team No qualifying data available. Post Acute Orders No qualifying data available. You Need to Schedule the Following Appointments Follow Up with JENNIFER VILLASEÑOR MD When:Within 2-4 days Where:[place] [address]- Allergies NKA Medications Please ask your primary doctor or pharmacist before taking any other medication not listed, including over the counter drugs, herbal medications, vitamins and or supplements as they may interact withyour home medications. What How Much When Why Instructions Last Dose New chlordiazePOXIDE (chlordiazePOXIDE 25 mg oral capsule) See instructions Alcohol withdrawal 1 cap(s) Oral q6hr Printed Prescription Unchanged acetaminophen (Tylenol) See instructions Oral Unchanged ferrous sulfate (FeroSul 325 mg (65 mg elemental iron) oral tablet) 1 tab(s) by mouth Two (2) times a day Alcohol abuse History of encephalopathy Unchanged folic acid (folic acid 1 mg oral tablet) 1 tab(s) by mouth Once a day Alcohol abuse History of encephalopathy Unchanged methylcobalamin (Vitamin B12 Methylcobalamin 5000 mcg sublingual tablet) 1 tab(s) under the tongue Every week Alcohol abuse History of encephalopathy Unchanged mirtazapine (mirtazapine 30 mg oral tablet) 1 tab(s) by mouth Daily at bedtime Insomnia Unchanged thiamine (thiamine 100 mg oral tablet) 1 tab(s) by mouth Every day Alcohol abuse History of encephalopathy Unchanged traZODone (traZODone 100 mg oral tablet) 1 tab(s) by mouth Daily at bedtime Duration: 30 Days Please take this list to your next doctor s visit. Bring all medications you take, including over the counter medications, herbals and other supplements with you to your doctor s visit. Patients and families are reminded to discard old lists and to update any records with all medication providers or retail pharmacies. Education Materials Alcohol Withdrawal Alcohol withdrawal usually begins after prolonged heavy drinking, and then you suddenly stop drinking, or cut down on your alcohol use. It is not one thing, but is a complex combination of signs and symptoms that generally occur to together and define a particular problem or condition. Alcohol withdrawal is potentially life-threatening, and is a medical emergency. It can start as early as a couple of hours after your last drink, or may take 1 to 3 days to develop. It can last from days to a week or more. It can worsen very quickly. Signs and symptoms There are several stages of alcohol withdrawal, although they overlap, as do their signs and symptoms. In the earlier stages, it most commonly includes: Anxiety Shakiness Nausea and vomiting Sweating Insomnia Headaches Fever Mood swings, irritability, agitation, restlessness Delirium tremens (DTs) DTs are a severe and life-threatening complication. If it happens, it usually begins about 3 to 5 days after your last drink. It is potentially life threatening. DTs are characterized by: Sudden and severe mental or nervous system changes Uncontrollable tremors Severe disorientation, confusion, hallucinations Heart racing, or irregular heartbeat High blood pressure Seizures Possible coma and Home care You will need plenty of rest and fluids over the next several days. Eat regular meals and drink plenty of fluids to prevent dehydration. Do not drink any more alcohol. During this time, it is best that you stay with family or friends who can help and support you. You can also admit yourself to a residential detox program. Do not drive until all symptoms are gone and you are feeling better. if you've had a seizure, don'tdrive until you have been examined by a doctor. If you were given sedative medication to reduce your symptoms, do not take it more often than prescribed and never take it with alcohol. Follow-up care Once you have gone through the withdrawal symptoms, you have fought half of the castro. To avoid the risk of returning to your previous drinking pattern, it is essential that you get follow-up support and treatment. Alcoholics Anonymous offers support through a self-help fellowship. There are no dues or fees. Search the internet or go to www.aa.org to find a local meeting place. [employer] family groups offers support to families of alcohol users. Go to www.al-anon.org [place] On Alcoholism And Drug Dependence at 677-388-1693 or www.ncadd.org Residential alcohol detox programs are available. Search the internet for drug abuse and treatment centers in your area. Call 911 Call 911 if any of these occur: Seizure Trouble breathing or slow, irregular breathing Chest pain Sudden weakness on one side of the body or sudden trouble speaking Heavy bleeding or vomiting blood Very drowsy or trouble awakening Fainting or loss of consciousness Rapid heart rate When to seek medical advice Call your healthcare provider right away if any of these occur: Severe shakiness Hallucinations Fever over 100.4 F (38.0 C) Headache, confusion, extreme drowsiness, inability to awaken Increasing upper abdominal pain Repeated vomiting [phone] [employer] [address] [place] [address]. All rights reserved. This information is not intended as a substitute for professional medical care. Always follow yourhealthcare professional's instructions. Finger Fracture, Closed You have a broken finger (fracture). This causes local pain, swelling, and bruising. This injury usually takes about 4 to 6 weeks to heal, but can take longer in some cases. Finger injuries are oftentreated with a splint or cast, or by taping the injured finger to the next one (nishi taping). Thisprotects the injured finger and holds the bone in position while it heals. More serious fractures may need surgery. If the fingernail has been severely injured, it will probably fall off in 1 to 2 weeks. A new fingernail will usually start to grow back within a month. Home care Follow these guidelines when caring for yourself at home: Keep your hand elevated to reduce pain and swelling. When sitting or lying down keep your arm abovethe level of your heart. You can do this by placing your arm on a pillow that rests on your chest or on a pillow at your side. This is most important during the first 2 days (48 hours) after the injury. Put an ice pack on the injured area. Do this for 20 minutes every 1 to 2 hours the first day for pain relief. You can make an ice pack by wrapping a plastic bag of ice cubes in a thin towel. As the ice melts, be careful that the cast or splint doesn t get wet. Continue using the ice pack 3 to 4 times a day until the pain and swelling go away. Keep the cast or splint completely dry at all times. Bathe with your cast or splint out of the water. Protect it with a large plastic bag, rubber-banded at the top end. If a fiberglass cast or splintgets wet, you can dry it with a unhairing inspector. If nishi tape was put on and it becomes wet or dirty, change it. You may replace it with paper, plastic, or cloth tape. Cloth tape and paper tapes must be kept dry. Keep the nishi tape in place for at least 4 weeks. You may use acetaminophen or ibuprofen to control pain, unless another pain medicine was prescribed. If you have chronic liver or kidney disease, talk with your healthcare provider before using thesemedicines. Also talk with your provider if you ve had a stomach ulcer or gastrointestinal bleeding. Don t put creams or objects under the cast if you have itching. Follow-up care Follow up with your healthcare provider, or as advised. This is to make sure the bone is healing the way it should. X-rays may be taken. You will be told of any new findings that may affect your care. When to seek medical advice Call your healthcare provider right away if any of these occur: The plaster cast or splint becomes wet or soft The cast or splint cracks The fiberglass cast or splint stays wet for more than 24 hours Pain or swelling gets worse Redness, warmth, swelling, drainage from the wound, or foul odor from a cast or splint Finger becomes more cold, blue, numb, or tingly You can t move your finger The skin around the cast or splint becomes red Fever of 100.4 F (38 C) or higher, or as directed by your healthcare provider [id number] [employer] [address] [place] [address], [place] [address]. All rights reserved. This information is not intended as a substitute for professional medical care. Always follow yourhealthcare professional's instructions. Additional Information VACCINATE! IT SAVES LIVES! Members of the community who have not yet received the COVID-19 vaccine and would like to receive it can visit one of [facility] vaccine clinics. There are many vaccine clinic locations within the [facility]. For locations and available times, please visit www.gettheshot.coronavirus.[place].gov/. It is important to note that some COVID mobile vaccine clinics are held outdoors and may be canceled in rainy or stormy conditions. To learn more about pediatric vaccinations (ages 5-11), we invite you to visit the [facility] webpage. https://www.[employer].org/pages/4923-Eahyh-Jopjjqqsdmw-Jikpqooszu-Lwsct-Ylq stions.htmlTo learn more about the COVID-19 vaccine, we invite you to visit the CDC website for a list of frequently asked questions. https://www.cdc.gov/coronavirus/2019-ncov/vaccines/faq.html [facility] Patient Portal Access Instructions: Stay connected with your healthcare team and access your personal medical information anytime with the [facility] Patient Portal. If you would like a full copy of your medical records please contact the [facility] Medical Records Department Thursday through Thursday between 8a.m. and 4:30p.m. Please follow the directions below to access the portal: 1.Access the email account you provided upon registration to the [facility].2.Look for an invitation email from [facility].3.Open the email and access the invitation link: Accept Invitation to [facility]4.Fill in the required allen to create your account. Sign into [email or web address] with your username and password that you created in the above steps to stay up to date. You can then view a summary of results, a summary of your visits, and the ability to download your summaries to your computer or send the information securely to a physician. Remember that your healthcare information is confidential, so carefully consider who you will allow to register on the [facility] Patient Portal for access to your information. You can also access the [facility] Patient Portal on the [employer] [facility]. Simply click on Health Records under [employer] and then click on the [employer] logo. HOW TO SAFELY DISPOSE OF PRESCRIPTION MEDICATIONS Please use one of the following methods to safely dispose of your unused medications. 1.Use a drug disposal kit: the drug disposal pouch allows you to safely discard your old and unuseddrugs. Ask your nurse to give you one when you are discharged.2.Visit a local take-back location: Many local pharmacies and police departments have programs that collect old and unwanted prescriptiondrugs. Call your local pharmacy or go to http://[employer].Tweetflow/4E0Vu1e to find one close to you.3.Make use of household items: Use cat litter or old coffee grounds to dispose medications if other options arenot available. Mix your drugs with these household products, seal them in an airtight container andthrow it into the garbage. Call [facility]: [phone] to be sure your drugs can be disposed of in this way. Some medicines may require a different approach.4.Never flush your medications down the toilet. IF YOU HAVE BEEN PRESCRIBED AN OPIOIDS FOR PAIN If you have been prescribed an opioid (such as hydrocodone, oxycodone or morphine), it is critical to understand the possible side effects and risks of opioid pain medications. Even when taken as directed, opioids can have several side effects including: Tolerance, meaning you might need to take more of a medication for the same pain relief. Nausea, vomiting and/or constipation. Sleepiness, dizziness, dry mouth, confusion, depression or itching. Physical dependence, meaning you have withdrawal symptoms when a medication is stopped ? this can develop within a few days. KNOW YOUR RESPONSIBILITIES It is important to know exactly how much and how often to take the opioid pain medications you are prescribed. Never take opioids in higher amounts or more often than prescribed. Do not combine opioids with alcohol or other drugs that cause drowsiness, such as benzodiazepines, also known as benzos,including diazepam and alprazolam, muscle relaxants or sleep aids. Never sell or share prescriptionopioids. This is illegal. Store opioids in a secure place and out of reach of others (including children, family, friends and visitors). The last page(s) of this document has been signed and retained as a CHART COPY Signatures Patient Education Materials Alcohol Withdrawal Fracture, Finger, Closed Medication Leaflets My discharge plan and instructions have been reviewed and explained to me and I,JENNIFER YORK understand my current condition and have read and understand these discharge instructions. I have received a written copy of the plan/instructions. If I have questions, I am aware that I should contactmy doctor. 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 The lungs are clear without evidence of focal consolidation, mass, pleural effusion, or pneumothorax. The cardiomediastinal silhouette is unremarkable. The bones and soft tissues are unremarkable. IMPRESSION: No radiographic evidence of acute cardiopulmonary disease. Interpreted by: Janet Mejía MD Preliminary Report By: Janet Mejía MD Electronically signed By Janet Mejía MD Dictated Date: 08/05/2024 5:21:30 PM Prelim Date: 08/05/2024 5:21:45 PM Sign Date: 08/05/2024 5:21:45 PM Ordering Provider: EMILIE FIGUEROA [facility]10-10-2024 Hospital Discharge instructions Patient Education 05/26/2024 03:51:14 Chest Pain, Noncardiac Noncardiac Chest Pain Based on your visit today, the healthcare provider doesn t know what is causing your chest pain. Inmost cases, people who come to the emergency department with chest pain don t have a problem with their heart. Instead, the pain is caused by other conditions. It's important for the healthcare team to be sure you are not having a life threatening cause for chest pain such as a heart attack, blood c lot in the lungs, collapsed lung, ruptured esophagus, or tearing of the aorta. Once these major causes have been ruled out, you may have further evaluation for non-heart causes of chest pain. These may be problems with the lungs, muscles, bones, digestive tract, nerves, or mental health. Lung problems Inflammation around the lungs (pleurisy) Collapsed lung (pneumothorax) Fluid around the lungs (pleural effusion) Lung cancer (a rare cause of chest pain) Muscle or bone problems Inflamed cartilage between the ribs (costochondritis) Fibromyalgia Rheumatoid arthritis Chest wall strain Digestive system problems Reflux Stomach ulcer Spasms of the esophagus Gall stones Gallbladder inflammation Mental health conditions Panic or anxiety attacks Emotional distress Your condition doesn t seem serious and your pain doesn t appear to be coming from your heart. But sometimes the signs of a serious problem take more time to appear. Watch for the warning signs listed below. Home care Follow these guidelines when caring for yourself at home: Rest today and avoid strenuous activity. Take any prescribed medicine as directed. Follow-up care Follow up with your healthcare provider, or as advised, if you don t start to feel better within 24hours. When to seek medical advice Call your healthcare provider right away if any of these occur: A change in the type of pain. Call if it feels different, becomes more serious, lasts longer, or begins to spread into your shoulder, arm, neck, jaw, or back. Shortness of breath You feel more pain when you breathe Cough with dark-colored mucus or blood Weakness, dizziness, or fainting Fever of 100.4 F (38 C) or higher, or as directed by your healthcare provider Swelling, pain, or redness in one leg [id number] [employer]. [address] [place] [address], [place] [address]. All rights reserved. This information is not intended as a substitute for professional medical care. Always follow yourhealthcare professional's instructions. Follow Up Care 05/26/2024 02:03:06 With:JENNIFER VILLASEÑOR MD Address: [address] [place] [phone] When:2-4 days [facility] 10-10-2024 Emergency department Discharge summary Discharge Instructions Thank you for allowing [facility] to assist you with your healthcare needs. The following is importantdischarge information regarding your hospital visit. Diagnosis from Today's Visit History of fracture of rib Rib pain What to Do Next Instructions from Your Care Team No qualifying data available. Post Acute Orders No qualifying data available. You Need to Schedule the Following Appointments Follow Up with JENNIFER VILLASEÑOR MD When:Within 2-4 days Where:[address] [facility] [place] [address]- Allergies NKA Medications Please ask your primary doctor or pharmacist before taking any other medication not listed, including over the counter drugs, herbal medications, vitamins and or supplements as they may interact withyour home medications. What How Much When Why Instructions Last Dose Unchanged ferrous sulfate (FeroSul 325 mg (65 mg elemental iron) oral tablet) 1 tab(s) by mouth Two (2) times a day Alcohol abuse History of encephalopathy Unchanged folic acid (folic acid 1 mg oral tablet) 1 tab(s) by mouth Once a day Alcohol abuse History of encephalopathy Unchanged ibuprofen (Motrin) 400 Milligram by mouth Every 6 hours Unchanged LORazepam (LORazepam 1 mg oral tablet) 1 tab(s) by mouth Every 8 hours as needed for as needed for anxiety Unchanged losartan (losartan 50 mg oral tablet) 1 tab(s) by mouth Once a day Duration: 30 Days Unchanged magnesium hydroxide (Milk of Magnesia) 30 Milliliter by mouth Once a day as needed for Constipation Unchanged methylcobalamin (Vitamin B12 Methylcobalamin 5000 mcg sublingual tablet) 1 tab(s) under the tongue Every week Alcohol abuse History of encephalopathy Unchanged mirtazapine (mirtazapine 30 mg oral tablet) 1 tab(s) by mouth Daily at bedtime Insomnia Unchanged pantoprazole (pantoprazole 40 mg oral enteric coated tablet) 1 tab(s) by mouth Once a day Alcoholism CHECO (generalized anxiety disorder) Unchanged polyethylene glycol 3350 (Miralax Powder Packet) by mouth Once a day Unchanged thiamine (thiamine 100 mg oral tablet) 1 tab(s) by mouth Every day Alcohol abuse History of encephalopathy Unchanged traZODone (traZODone 50 mg oral tablet) 1 tab(s) by mouth Daily at bedtime Please take this list to your next doctor s visit. Bring all medications you take, including over the counter medications, herbals and other supplements with you to your doctor s visit. Patients and families are reminded to discard old lists and to update any records with all medication providers or retail pharmacies. Education Materials Noncardiac Chest Pain Based on your visit today, the healthcare provider doesn t know what is causing your chest pain. Inmost cases, people who come to the emergency department with chest pain don t have a problem with their heart. Instead, the pain is caused by other conditions. It's important for the healthcare team to be sure you are not having a life threatening cause for chest pain such as a heart attack, blood c lot in the lungs, collapsed lung, ruptured esophagus, or tearing of the aorta. Once these major causes have been ruled out, you may have further evaluation for non-heart causes of chest pain. These may be problems with the lungs, muscles, bones, digestive tract, nerves, or mental health. Lung problems Inflammation around the lungs (pleurisy) Collapsed lung (pneumothorax) Fluid around the lungs (pleural effusion) Lung cancer (a rare cause of chest pain) Muscle or bone problems Inflamed cartilage between the ribs (costochondritis) Fibromyalgia Rheumatoid arthritis Chest wall strain Digestive system problems Reflux Stomach ulcer Spasms of the esophagus Gall stones Gallbladder inflammation Mental health conditions Panic or anxiety attacks Emotional distress Your condition doesn t seem serious and your pain doesn t appear to be coming from your heart. But sometimes the signs of a serious problem take more time to appear. Watch for the warning signs listed below. Home care Follow these guidelines when caring for yourself at home: Rest today and avoid strenuous activity. Take any prescribed medicine as directed. Follow-up care Follow up with your healthcare provider, or as advised, if you don t start to feel better within 24hours. When to seek medical advice Call your healthcare provider right away if any of these occur: A change in the type of pain. Call if it feels different, becomes more serious, lasts longer, or begins to spread into your shoulder, arm, neck, jaw, or back. Shortness of breath You feel more pain when you breathe Cough with dark-colored mucus or blood Weakness, dizziness, or fainting Fever of 100.4 F (38 C) or higher, or as directed by your healthcare provider Swelling, pain, or redness in one leg 2099-0703 The [employer]. [address] [place] [address], [place] [address]. All rights reserved. This information is not intended as a substitute for professional medical care. Always follow yourhealthcare professional's instructions. Additional Information VACCINATE! IT SAVES LIVES! Members of the community who have not yet received the COVID-19 vaccine and would like to receive it can visit one of [facility] vaccine clinics. There are many vaccine clinic locations within the [facility]. For locations and available times, please visit www.gettheshot.coronavirus.[place].gov/. It is important to note that some COVID mobile vaccine clinics are held outdoors and may be canceled in rainy or stormy conditions. To learn more about pediatric vaccinations (ages 5-11), we invite you to visit the [facility] webpage. https://www.[employer].org/pages/7763-Uhoat-Cbtzncumglz-Oamsnebsyj-Wcmhq-Cub stions.htmlTo learn more about the COVID-19 vaccine, we invite you to visit the CDC website for a list of frequently asked questions. https://www.cdc.gov/coronavirus/2019-ncov/vaccines/faq.html [facility] Patient Portal Access Instructions: Stay connected with your healthcare team and access your personal medical information anytime with the [facility] Patient Portal. If you would like a full copy of your medical records please contact the [facility] Medical Records Department Thursday through Thursday between 8a.m. and 4:30p.m. Please follow the directions below to access the portal: 1.Access the email account you provided upon registration to the hospital.2.Look for an invitation email from [facility].3.Open the email and access the invitation link: Accept Invitation to [facility]4.Fill in the required allen to create your account. Sign into [email or web address] with your username and password that you created in the above steps to stay up to date. You can then view a summary of results, a summary of your visits, and the ability to download your summaries to your computer or send the information securely to a physician. Remember that your healthcare information is confidential, so carefully consider who you will allow to register on the [facility] Patient Portal for access to your information. You can also access the [facility] Patient Portal on the [employer] louisa. Simply click on Health Records under [employer] and then click on the [employer] logo. HOW TO SAFELY DISPOSE OF PRESCRIPTION MEDICATIONS Please use one of the following methods to safely dispose of your unused medications. 1.Use a drug disposal kit: the drug disposal pouch allows you to safely discard your old and unuseddrugs. Ask your nurse to give you one when you are discharged.2.Visit a local take-back location: Many local pharmacies and police departments have programs that collect old and unwanted prescriptiondrugs. Call your local pharmacy or go to http://[employer].Tweetflow/4N4Nt2k to find one close to you.3.Make use of household items: Use cat litter or old coffee grounds to dispose medications if other options arenot available. Mix your drugs with these household products, seal them in an airtight container andthrow it into the garbage. Call [facility]: [phone] to be sure your drugs can be disposed of in this way. Some medicines may require a different approach.4.Never flush your medications down the toilet. IF YOU HAVE BEEN PRESCRIBED AN OPIOIDS FOR PAIN If you have been prescribed an opioid (such as hydrocodone, oxycodone or morphine), it is critical to understand the possible side effects and risks of opioid pain medications. Even when taken as directed, opioids can have several side effects including: Tolerance, meaning you might need to take more of a medication for the same pain relief. Nausea, vomiting and/or constipation. Sleepiness, dizziness, dry mouth, confusion, depression or itching. Physical dependence, meaning you have withdrawal symptoms when a medication is stopped ? this can develop within a few days. KNOW YOUR RESPONSIBILITIES It is important to know exactly how much and how often to take the opioid pain medications you are prescribed. Never take opioids in higher amounts or more often than prescribed. Do not combine opioids with alcohol or other drugs that cause drowsiness, such as benzodiazepines, also known as benzos,including diazepam and alprazolam, muscle relaxants or sleep aids. Never sell or share prescriptionopioids. This is illegal. Store opioids in a secure place and out of reach of others (including children, family, friends and visitors). The last page(s) of this document has been signed and retained as a CHART COPY Signatures Patient Education Materials Chest Pain, Noncardiac Medication Leaflets My discharge plan and instructions have been reviewed and explained to me and I,JENNIFER YORK understand my current condition and have read and understand these discharge instructions. I have received a written copy of the plan/instructions. If I have questions, I am aware that I should contactmy doctor. 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 Low lung volumes with bronchovascular crowding bilaterally. No focal consolidation or significant pulmonary vascular congestion. No pneumothorax or pleural effusion. No acute osseous abnormalities. Remote left lower rib deformities. IMPRESSION: Hypoventilatory changes. No focal consolidation. I have personally reviewed the images of this examination and agree with the resident's findings and interpretation. Interpreted by: Kyler Britton MD Preliminary Report By: Hema Saleem Electronically signed By Kyler Britton MD Dictated Date: 05/26/2024 2:44:19 AM Prelim Date: 05/26/2024 2:45:27 AM Sign Date: 05/26/2024 2:51:00 AM Ordering Provider: [facility]10[facility]01[facility]2024 Pastoral care Progress note Pastoral Care Note Entered On: 05/17/2024 14:06 EDT Performed On: 05/17/2024 14:05 EDT by Wing Chavez [facility] Type of Pastoral Visit : Initial visit Spiritual Care Visit Initiated by : Consult/Referral Spiritual Care Reason for Visit : General Pastoral Care Referral From : Nurse Spiritual Care Intervention : Discharged Before Seen Pastoral Care Comments : Patient discharged before seen. Attempt made to see him on the floor. Pastoral Care Visit Length : 5 minute(s) Wing Chavez - 05/17/2024 14:05 EDT Digitally Signed by Wing Chavez on 05/17/2024 02:05 PM [id number] Discharge instructions Patient Education 05/17/2024 09:30:41 Pneumothorax Pneumothorax A pneumothorax is commonly called a collapsed lung. It is a condition in which air leaks from a lung and builds up between the thin layer of tissue that covers the lungs (visceral pleura) and the interior wall of the chest cavity (parietal pleura). The air gets trapped outside the lung, between thelung and the chest wall (pleural space). The air takes up space and prevents the lung from fully expanding. This condition sometimes occurs suddenly with no apparent cause. The buildup of air may be small orlarge. A small pneumothorax may go away on its own. A large pneumothorax will require treatment andhospitalization. What are the causes? This condition may be caused by: Trauma and injury to the chest wall. Surgery and other medical procedures. A complication of an underlying lung problem, especially chronic obstructive pulmonary disease (COPD) or emphysema. Sometimes the cause of this condition is not known. What increases the risk? You are more likely to develop this condition if: You have an underlying lung problem. You smoke. You are 20-40 years old, male, tall, and underweight. You have a personal or family history of pneumothorax. You have an eating disorder (anorexia nervosa). This condition can also happen quickly, even in people with no history of lung problems. What are the signs or symptoms? Sometimes a pneumothorax will have no symptoms. When symptoms are present, they can include: Chest pain. Shortness of breath. Increased rate of breathing. Bluish color to your lips or skin (cyanosis). How is this diagnosed? This condition may be diagnosed by: A medical history and physical exam. A chest X-ray, chest CT scan, or ultrasound. How is this treated? Treatment depends on how severe your condition is. The goal of treatment is to remove the extra airand allow your lung to expand back to its normal size. For a small pneumothorax: ?No treatment may be needed. ?Extra oxygen is sometimes used to make it go away more quickly. For a large pneumothorax or a pneumothorax that is causing symptoms, a procedure is done to drain the air from your lungs. To do this, a health care provider may use: ?A needle with a syringe. This is used to suck air from a pleural space where no additional leakageis taking place. ?A chest tube. This is used to suck air where there is ongoing leakage into the pleural space. The chest tube may need to remain in place for several days until the air leak has healed. In more severe cases, surgery may be needed to repair the damage that is causing the leak. If you have multiple pneumothorax episodes or have an air leak that will not heal, a procedure called a pleurodesis may be done. A medicine is placed in the pleural space to irritate the tissues around the lung so that the lung will stick to the chest wall, seal any leaks, and stop any buildup of air in that space. If you have an underlying lung problem, severe symptoms, or a large pneumothorax you will usually need to stay in the hospital. Follow these instructions at home: Lifestyle Do not use any products that contain nicotine or tobacco, such as cigarettes and e-cigarettes. These are major risk factors in pneumothorax. If you need help quitting, ask your health care provider. Do not lift anything that is heavier than 10 lb (4.5 kg), or the limit that your health care provider tells you, until he or she says that it is safe. Avoid activities that take a lot of effort (strenuous) for as long as told by your health care provider. Return to your normal activities as told by your health care provider. Ask your health care provider what activities are safe for you. Do not fly in an airplane or scuba dive until your health care provider says it is okay. General instructions Take zvkt-naw-iywmkce and prescription medicines only as told by your health care provider. If a cough or pain makes it difficult for you to sleep at night, try sleeping in a semi-upright position in a recliner or by using 2 or 3 pillows. If you had a chest tube and it was removed, ask your health care provider when you can remove the bandage (dressing). While the dressing is in place, do not allow it to get wet. Keep all follow-up visits as told by your health care provider. This is important. Contact a health care provider if: You cough up thick mucus (sputum) that is yellow or green in color. You were treated with a chest tube, and you have redness, increasing pain, or discharge at the sitewhere it was placed. Get help right away if: You have increasing chest pain or shortness of breath. You have a cough that will not go away. You begin coughing up blood. You have pain that is getting worse or is not controlled with medicines. The site where your chest tube was located opens up. You feel air coming out of the site where the chest tube was placed. You have a fever or persistent symptoms for more than 2 3 days. You have a fever and your symptoms suddenly get worse. These symptoms may represent a serious problem that is an emergency. Do not wait to see if the symptoms will go away. Get medical help right away. Call your local emergency services (911 in the [place] Do not drive yourself to the hospital. Summary A pneumothorax, commonly called a collapsed lung, is a condition in which air leaks from a lung andgets trapped between the lung and the chest wall (pleural space). The buildup of air may be small or large. A small pneumothorax may go away on its own. A large pneumothorax will require treatment and hospitalization. Treatment for this condition depends on how severe the pneumothorax is. The goal of treatment is toremove the extra air and allow the lung to expand back to its normal size. This information is not intended to replace advice given to you by your health care provider. Make sure you discuss any questions you have with your health care provider. Document Released: 08/03/2006 Document Revised: 07/16/2018 Document Reviewed: 07/12/2018 [employer] Patient Education 2020 [employer] Follow Up Care 05/15/2024 15:22:37 With:Kareem Lee, [facility], Address:Unknown When: Unknown Comments:Pt is returning to his assisted living unit at [facility] With:SUZANNA CARPENTER Address: [address] [facility] [place] [place] [address]- [phone] Business (1) When:1-2 days Comments:Steroid injections to be completed in IR department at [facility], will call to schedule With:JENNIFER VILLASEÑOR MD Address: [address] [facility] [place] [address]- When:1-2 days Comments:Please call the office to schedule a hospital follow-up appointment. [facility] 10-01-2024 Discharge summary Date of Service 05/17/2024 Discharge Diagnosis Alcohol abuse (F10.10 - ICD-10-CM) Alcoholism (F10.20 - ICD-10-CM) Fall ([id number] - PNED) CHECO (generalized anxiety disorder) (F41.1 - ICD-10-CM) History of encephalopathy (Z86.69 - ICD-10-CM) Insomnia (G47.00 - ICD-10-CM) Hospital Course This is a 64-year-old male who was admitted on 05/15/2024 after experiencing a fall. Patient sustained right-sided rib fractures and a L1 transverse process fracture. He had evidence of a small right pneumothorax on admission did not require chest tube. He was admitted to trauma service with consultation placed to neurosurgery. Patient was evaluated by neurosurgery with no plans for intervention at this time. Outpatient follow-up was recommended. He was evaluated by physical and Occupational Therapy during his hospitalization and recommendations were made for home OT with no further physical therapy needs. Eventually on 05/17/2024 patient met discharge criteria from a trauma standpoint all consultants. He was discharged to his assisted living facility with plans for outpatient occupational therapy. Allergies NKA Procedures None Consults Consult to Physician - Ordered -- 05/16/24 7:09:00 EDT, SUZANNA CARPENTER MD, Routine, nondisplaced fracture of the right L1 transverse process? Consult to Spiritual Care Team (Consult to Pastoral Care) - Ordered -- 05/16/24 2:25:17 EDT Imaging Results and Diagnostics XR Chest 1 View Result Date: May 16, 2024 Verified By: CARMEN HILL, LUIS Grant CLINICAL STATEMENT: IMPRESSION: 1. Resolution of small right apical pneumothorax.2. No acute cardiopulmonary process. XR Chest 1 View Result Date: May 15, 2024 Verified By: CLINICAL STATEMENT: IMPRESSION: Rotation to the left. Cardiomediastinal silhouette is within normal limits.Central pulmonary vascular congestion. No focal consolidations. Leftcostophrenic angle is sharp. Right costophrenic angle is sharp. Multipleright-sided rib fractures were better appreciated on same-day CT. Wiresexternal to patient limited evaluation of the right lung apex, questionablepleural line in the right lung apex consistent with a tiny 4 mm right apicalpneumothorax, the definite right pneumothorax is better appreciated onsame-day CT. Physical Exam Vitals and Measurements T: 36.8 C (Oral) TMIN: 36.4 C (Oral) TMAX: 36.9 C (Oral) HR: 77 RR: 16 BP: 107/69 SpO2: 95% Weight Dosing Weight: 85.7 kg (05/16/24) Dosing Weight: 85.7 kg (05/15/24) General -alert and oriented x4, answers questions appropriately. In no acute distress. HEENT -normocephalic. Cardiovascular -S1-S2, regular rate and rhythm. Respiratory -easy unlabored respirations. Chest rise symmetrical. Shallow respirations due to pain. Abdomen/GI -soft, nontender, bowel sounds present. Nondistended. Musculoskeletal -BLANCO x4. Psychiatric -calm and cooperative. Skin -normal for ethnicity. Code Status Code Status - Ordered -- 05/15/24 15:38:00 EDT, Full Code, Constant Order Admission Date 05/15/2024 Discharge Date 05/17/[address] Carpenter (neurosurgery) has ordered steroid injections in your back to assist with your chronic back pain. These are completed in the interventional radiology department of [facility]. The department will reach out to your regarding the scheduling of your injections. Medications Unchanged ferrous sulfate (FeroSul 325 mg (65 mg elemental iron) oral tablet)1 tab(s) by mouth two (2) times a day. Refills: 0. folic acid (folic acid 1 mg oral tablet)1 tab(s) by mouth once a day. Refills: 0. LORazepam (LORazepam 1 mg oral tablet)1 tab(s) by mouth every 8 hours as needed as needed for anxiety. losartan (losartan 50 mg oral tablet)1 tab(s) by mouth once a day for 30 Days. Refills: 5. methylcobalamin (Vitamin B12 Methylcobalamin 5000 mcg sublingual tablet)1 tab(s) under the tongue every week. Refills: 1. mirtazapine (mirtazapine 30 mg oral tablet)1 tab(s) by mouth daily at bedtime. Refills: 5. pantoprazole (pantoprazole 40 mg oral enteric coated tablet)1 tab(s) by mouth once a day. Refills: 5. thiamine (thiamine 100 mg oral tablet)1 tab(s) by mouth every day. Refills: 0. traZODone (traZODone 50 mg oral tablet)1 tab(s) by mouth daily at bedtime. Follow Up Appointments No qualifying data available. Follow Up Labs/Studies Discharge Labs No Follow-up Labs Discharge Studies No Follow-up Studies Discharge Diet No qualifying data available. Discharge Activity No qualifying data available. Condition on Discharge Good/stable Discharge Disposition Assisted living Information Provided To Patient and nursing staff Time Spent Minutes Digitally Signed by MECCA RODRÍGUEZ on 05/17/2024 08:54 AM [id number] Note Discharge Instructions Thank you for allowing [facility] to assist you with your healthcare needs. The following is importantdischarge information regarding your hospital visit. Your Care Team JENNIFER VILLASEÑOR MD Your Diagnosis Alcohol abuse Alcoholism CHECO (generalized anxiety disorder) History of encephalopathy Insomnia Rib fractures What to do next Instructions From Your Doctor Dr. Carpenter (neurosurgery) has ordered steroid injections in your back to assist with your chronic back pain. These are completed in the interventional radiology department of [facility]. The department will reach out to your regarding the scheduling of your injections. Follow Up Appointments Follow Up with SUZANNA CARPENTER When:Within 1-2 days [facility] [facility] [address] [place] [phone] [facility] (1) Additional Information: Steroid injections to be completed in IR department at [facility], will call to schedule Follow Up with JENNIFER VILLASEÑOR MD When:Within 1-2 days Where:[address] [place] [address]- Additional Information: Please call the office to schedule a hospital follow-up appointment. The Following Activity and Diet Have Been Ordered for You Discharge Activity - Ordered -- Lifting Restricted less than 10 pounds Driving Restricted May Shower, No heavy lifting or strenuous activity. No driving while taking narcotic pain medication. Shower only., 05/17/24 8:55:00 EDT Discharge Driving Restrictions - Ordered -- No driving until pain-free, No driving if taking narcotic pain medication., 05/17/24 8:55:00 EDT Discharge Diet - Ordered -- Type of Diet: Regular Diet, No changes were made to your diet during your hospital stay. Please resume your pre hospitalization diet on discharge., 05/17/24 8:55:00 EDT The Following Equipment Has Been Ordered for You No qualifying data available. The Following Treatments Have Been Ordered for You Discharge Labs No qualifying data available. Discharge Radiology No qualifying data available. Other Therapies No qualifying data available. Post Acute Orders No qualifying data available. Someone Will Contact You Regarding These Home Health Referrals No home referrals have been ordered for you. No one will call you. Allergies NKA Medications Please ask your primary doctor or pharmacist before taking any other medication not listed, including over the counter drugs, herbal medications, vitamins and or supplements as they may interact withyour home medications. What How Much When Why Instructions Last Dose New acetaminophen-oxyCODONE (Percocet 5 mg-325 mg oral tablet) 1 tab(s) by mouth Every 6 hours as needed for for pain Rib fractures Duration: 5 Days Pickup at [facility]/pharmacy #[id number] New ibuprofen (Motrin) 400 Milligram by mouth Every 6 hours New magnesium hydroxide (Milk of Magnesia) 30 Milliliter by mouth Once a day as needed for Constipation New polyethylene glycol 3350 (Miralax Powder Packet) by mouth Once a day Unchanged ferrous sulfate (FeroSul 325 mg (65 mg elemental iron) oral tablet) 1 tab(s) by mouth Two (2) times a day Alcohol abuse History of encephalopathy Unchanged folic acid (folic acid 1 mg oral tablet) 1 tab(s) by mouth Once a day Alcohol abuse History of encephalopathy Unchanged LORazepam (LORazepam 1 mg oral tablet) 1 tab(s) by mouth Every 8 hours as needed for as needed for anxiety Unchanged losartan (losartan 50 mg oral tablet) 1 tab(s) by mouth Once a day Duration: 30 Days Unchanged methylcobalamin (Vitamin B12 Methylcobalamin 5000 mcg sublingual tablet) 1 tab(s) under the tongue Every week Alcohol abuse History of encephalopathy Unchanged mirtazapine (mirtazapine 30 mg oral tablet) 1 tab(s) by mouth Daily at bedtime Insomnia Unchanged pantoprazole (pantoprazole 40 mg oral enteric coated tablet) 1 tab(s) by mouth Once a day Alcoholism CHECO (generalized anxiety disorder) Unchanged thiamine (thiamine 100 mg oral tablet) 1 tab(s) by mouth Every day Alcohol abuse History of encephalopathy Unchanged traZODone (traZODone 50 mg oral tablet) 1 tab(s) by mouth Daily at bedtime Pharmacy Information [facility]/pharmacy #[id number]: [address], [place] [phone] Please take this list to your next doctor s visit. Bring all medications you take, including over the counter medications, herbals and other supplements with you to your doctor s visit. Patients and families are reminded to discard old lists and to update any records with all medication providers or retail pharmacies. Medication Leaflets acetaminophen and oxycodone (a SEET a MIN oh fen and OX i KOE done) Endocet 10/325, Endocet 2.5/325, Endocet 5/325, Endocet 7.5/325, Nalocet, Percocet, Prolate What is the most important information I should know about acetaminophen and oxycodone? MISUSE OF OPIOID MEDICINE CAN CAUSE ADDICTION, OVERDOSE, OR . Keep the medication in a place where others cannot get to it. Taking opioid medicine during may cause life-threatening withdrawal symptoms in the . Fatal side effects can occur if you use opioid medicine with alcohol, or with other drugs that cause drowsiness or slow your breathing. Stop taking this medicine and call your doctor right away if you have skin redness or a rash that spreads and causes blistering and peeling. What is acetaminophen and oxycodone? Acetaminophen and oxycodone is a combination medicine used to relieve moderate to severe pain. Acetaminophen and oxycodone contains an opioide medicine and may be habit-forming. Acetaminophen and oxycodone may also be used for purposes not listed in this medication guide. What should I discuss with my healthcare provider before taking acetaminophen and oxycodone? You should not use this medicine if you are allergic to acetaminophen or oxycodone, or if you have: severe asthma or breathing problems; or a blockage in your stomach or intestines. Tell your doctor if you have ever had: breathing problems, sleep apnea; liver disease; a drug or alcohol addiction; kidney disease; a head injury or seizures; urination problems; or problems with your thyroid, pancreas, or gallbladder. If you use opioid medicine while you are , your baby could become dependent on the drug. This can cause life-threatening withdrawal symptoms in the baby after it is born. Babies born dependent on opioids may need medical treatment for several weeks. Ask a doctor before using opioid medicine if you are . Tell your doctor if you notice severe drowsiness or slow breathing in the nursing baby. How should I take acetaminophen and oxycodone? Follow all directions on your prescription label. Never take this medicine in larger amounts, or for longer than prescribed. An overdose can damage your liver or cause . Tell your doctor if you feel an increased urge to use more of this medicine. Never share opioid medicine with another person, especially someone with a history of drug abuse oraddiction. MISUSE CAN CAUSE ADDICTION, OVERDOSE, OR . Keep the medicine in a place where others cannot get to it. Selling or giving away opioid medicine is against the law. Measure liquid medicine carefully. Use the dosing syringe provided, or use a medicine dose-measuring device (not a kitchen spoon). If you need surgery or medical tests, tell the doctor ahead of time that you are using this medicine. You should not stop using this medicine suddenly. Follow your doctor's instructions about tapering your dose. Store at room temperature away from moisture and heat. Keep track of your medicine. You should be aware if anyone is using it improperly or without a prescription. Do not keep leftover opioid medication. Just one dose can cause in someone using this medicine accidentally or improperly. Ask your pharmacist where to locate a drug take-back disposal program.If there is no take-back program, flush the unused medicine down the toilet. What happens if I miss a dose? Since this medicine is used for pain, you are not likely to miss a dose. Skip any missed dose if itis almost time for your next dose. Do not use two doses at one time. What happens if I overdose? Seek emergency medical attention or call the Poison Help line at . An overdose of this medicine can be fatal, especially in a child or other person using the medicine without a prescription. Overdose symptoms may include nausea, vomiting, sweating, severe drowsiness, pinpoint pupils, slow breathing, or no breathing. Your doctor may recommend you get naloxone (a medicine to reverse an opioid overdose) and keep it with you at all times. A person caring for you can give the naloxone if you stop breathing or don't wake up. Your caregiver must still get emergency medical help and may need to perform CPR (cardiopulmonary resuscitation) on you while waiting for help to arrive. Anyone can buy naloxone from a pharmacy or local health department. Make sure any person caring foryou knows where you keep naloxone and how to use it. What should I avoid while taking acetaminophen and oxycodone? Avoid driving or operating machinery until you know how this medicine will affect you. Dizziness ordrowsiness can cause falls, accidents, or severe injuries. Do not drink alcohol. Dangerous side effects or could occur. Ask a doctor or pharmacist before using any other medicine that may contain acetaminophen (sometimes abbreviated as APAP). Taking certain medications together can lead to a fatal overdose. What are the possible side effects of acetaminophen and oxycodone? Get emergency medical help if you have signs of an allergic reaction: hives; difficulty breathing; swelling of your face, lips, tongue, or throat. Opioid medicine can slow or stop your breathing, and may occur. A person caring for you should give naloxone and/or seek emergency medical attention if you have slow breathing with long pauses,blue colored lips, or if you are hard to wake up. In rare cases, acetaminophen may cause a severe skin reaction that can be fatal. This could occur even if you have taken acetaminophen in the past and had no reaction. Stop taking this medicine and call your doctor right away if you have skin redness or a rash that spreads and causes blistering andpeeling. Call your doctor at once if you have: noisy breathing, sighing, shallow breathing, breathing that stops; a light-headed feeling, like you might pass out; weakness, tiredness, fever, unusual bruising or bleeding; confusion, unusual thoughts or behavior; problems with urination; liver problems--nausea, upper stomach pain, tiredness, loss of appetite, dark urine, jatin-colored stools, jaundice (yellowing of the skin or eyes); low cortisol levels-- nausea, vomiting, loss of appetite, dizziness, worsening tiredness or weakness; or high levels of serotonin in the body--agitation, hallucinations, fever, sweating, shivering, fast heart rate, muscle stiffness, twitching, loss of coordination, nausea, vomiting, diarrhea. Serious breathing problems may be more likely in older adults and in those who are debilitated or have wasting syndrome or chronic breathing disorders. Common side effects include: dizziness, drowsiness, feeling tired; feelings of extreme happiness or sadness; nausea, vomiting, stomach pain; constipation; or headache. This is not a complete list of side effects and others may occur. Call your doctor for medical advice about side effects. You may report side effects to FDA at 0-749-PFT-1906. What other drugs will affect acetaminophen and oxycodone? You may have breathing problems or withdrawal symptoms if you start or stop taking certain other medicines. Tell your doctor if you also use an antibiotic, antifungal medication, heart or blood pressure medication, seizure medication, or medicine to treat HIV or hepatitis C. Opioid medication can interact with many other drugs and cause dangerous side effects or . Be sure your doctor knows if you also use: cold or allergy medicines, bronchodilator asthma/COPD medication, or a diuretic ('water pill'); medicines for motion sickness, irritable bowel syndrome, or overactive bladder; other opioids--opioid pain medicine or prescription cough medicine; a sedative like Valium--diazepam, alprazolam, lorazepam, Xanax, Klonopin, Versed, and others; drugs that make you sleepy or slow your breathing--a sleeping pill, muscle relaxer, medicine to treat mood disorders or mental illness; drugs that affect serotonin levels in your body--a stimulant, or medicine for depression, Parkinson's disease, migraine headaches, serious infections, or nausea and vomiting. This list is not complete. Other drugs may affect acetaminophen and oxycodone, including prescription and rmdb-kff-cqanmvi medicines, vitamins, and herbal products. Not all possible interactions are listed here. Where can I get more information? Your doctor or pharmacist can provide more information about acetaminophen and oxycodone. Remember, keep this and all other medicines out of the reach of children, never share your medicines with others, and use this medication only for the indication prescribed. Every effort has been made to ensure that the information provided by [employer]') is accurate, up-to-date, and complete, but no guarantee is made to that effect. Drug information contained herein may be time sensitive. [employer] information has been compiled for use by healthcare practitioners and consumers in the [place] and therefore [employer] does not warrant that uses outside of the [place] are appropriate, unless specifically indicated otherwise. [employer] drug information does not endorse drugs, diagnose patients or recommend therapy. [employer] drug information isan informational resource designed to assist licensed healthcare practitioners in caring for their p atients and/or to serve consumers viewing this service as a supplement to, and not a substitute for, the expertise, skill, knowledge and judgment of healthcare practitioners. The absence of a warningfor a given drug or drug combination in no way should be construed to indicate that the drug or drug combination is safe, effective or appropriate for any given patient. [employer] does not assume any responsibility for any aspect of healthcare administered with the aid of information [employer] provides. The information contained herein is not intended to cover all possible uses, directions, precautions, warnings, drug interactions, allergic reactions, or adverse effects. If you have questions about the drugs you are taking, check with your doctor, nurse or pharmacist. Copyright 3270-7404 [employer] Version: 22.. Revision Date: 03/19/2023. Education Materials Pneumothorax A pneumothorax is commonly called a collapsed lung. It is a condition in which air leaks from a lung and builds up between the thin layer of tissue that covers the lungs (visceral pleura) and the interior wall of the chest cavity (parietal pleura). The air gets trapped outside the lung, between thelung and the chest wall (pleural space). The air takes up space and prevents the lung from fully expanding. This condition sometimes occurs suddenly with no apparent cause. The buildup of air may be small orlarge. A small pneumothorax may go away on its own. A large pneumothorax will require treatment andhospitalization. What are the causes? This condition may be caused by: Trauma and injury to the chest wall. Surgery and other medical procedures. A complication of an underlying lung problem, especially chronic obstructive pulmonary disease (COPD) or emphysema. Sometimes the cause of this condition is not known. What increases the risk? You are more likely to develop this condition if: You have an underlying lung problem. You smoke. You are 20-40 years old, male, tall, and underweight. You have a personal or family history of pneumothorax. You have an eating disorder (anorexia nervosa). This condition can also happen quickly, even in people with no history of lung problems. What are the signs or symptoms? Sometimes a pneumothorax will have no symptoms. When symptoms are present, they can include: Chest pain. Shortness of breath. Increased rate of breathing. Bluish color to your lips or skin (cyanosis). How is this diagnosed? This condition may be diagnosed by: A medical history and physical exam. A chest X-ray, chest CT scan, or ultrasound. How is this treated? Treatment depends on how severe your condition is. The goal of treatment is to remove the extra airand allow your lung to expand back to its normal size. For a small pneumothorax: ? No treatment may be needed. ? Extra oxygen is sometimes used to make it go away more quickly. For a large pneumothorax or a pneumothorax that is causing symptoms, a procedure is done to drain the air from your lungs. To do this, a health care provider may use: ? A needle with a syringe. This is used to suck air from a pleural space where no additional leakage is taking place. ? A chest tube. This is used to suck air where there is ongoing leakage into the pleural space. The chest tube may need to remain in place for several days until the air leak has healed. In more severe cases, surgery may be needed to repair the damage that is causing the leak. If you have multiple pneumothorax episodes or have an air leak that will not heal, a procedure called a pleurodesis may be done. A medicine is placed in the pleural space to irritate the tissues around the lung so that the lung will stick to the chest wall, seal any leaks, and stop any buildup of air in that space. If you have an underlying lung problem, severe symptoms, or a large pneumothorax you will usually need to stay in the hospital. Follow these instructions at home: Lifestyle Do not use any products that contain nicotine or tobacco, such as cigarettes and e-cigarettes. These are major risk factors in pneumothorax. If you need help quitting, ask your health care provider. Do not lift anything that is heavier than 10 lb (4.5 kg), or the limit that your health care provider tells you, until he or she says that it is safe. Avoid activities that take a lot of effort (strenuous) for as long as told by your health care provider. Return to your normal activities as told by your health care provider. Ask your health care provider what activities are safe for you. Do not fly in an airplane or scuba dive until your health care provider says it is okay. General instructions Take qeca-zri-bkxwmpb and prescription medicines only as told by your health care provider. If a cough or pain makes it difficult for you to sleep at night, try sleeping in a semi-upright position in a recliner or by using 2 or 3 pillows. If you had a chest tube and it was removed, ask your health care provider when you can remove the bandage (dressing). While the dressing is in place, do not allow it to get wet. Keep all follow-up visits as told by your health care provider. This is important. Contact a health care provider if: You cough up thick mucus (sputum) that is yellow or green in color. You were treated with a chest tube, and you have redness, increasing pain, or discharge at the sitewhere it was placed. Get help right away if: You have increasing chest pain or shortness of breath. You have a cough that will not go away. You begin coughing up blood. You have pain that is getting worse or is not controlled with medicines. The site where your chest tube was located opens up. You feel air coming out of the site where the chest tube was placed. You have a fever or persistent symptoms for more than 2 3 days. You have a fever and your symptoms suddenly get worse. These symptoms may represent a serious problem that is an emergency. Do not wait to see if the symptoms will go away. Get medical help right away. Call your local emergency services (911 in the [place] Do not drive yourself to the hospital. Summary A pneumothorax, commonly called a collapsed lung, is a condition in which air leaks from a lung andgets trapped between the lung and the chest wall (pleural space). The buildup of air may be small or large. A small pneumothorax may go away on its own. A large pneumothorax will require treatment and hospitalization. Treatment for this condition depends on how severe the pneumothorax is. The goal of treatment is toremove the extra air and allow the lung to expand back to its normal size. This information is not intended to replace advice given to you by your health care provider. Make sure you discuss any questions you have with your health care provider. Document Released: 08/03/2006 Document Revised: 07/16/2018 Document Reviewed: 07/12/2018 [employer] Patient Education 2020 [employer]. Additional Information VACCINATE! IT SAVES LIVES! Members of the community who have not yet received the COVID-19 vaccine and would like to receive it can visit one of [facility] vaccine clinics. There are many vaccine clinic locations within the [facility]. For locations and available times, please visit [email or web address].[place].gov/. It is important to note that some COVID mobile vaccine clinics are held outdoors and may be canceled in rainy or stormy conditions. To learn more about pediatric vaccinations (ages 5-11), we invite you to visit the [facility] webpage. [email or web address]/pages/[email or web address] stions.htmlTo learn more about the COVID-19 vaccine, we invite you to visit the CDC website for a list of frequently asked questions.https://www.cdc.gov/coronavirus/2019-ncov/vaccines/faq.html Room Patient Portal Access Instructions: Stay connected with your healthcare team and access your personal medical information anytime with the Room Patient Portal. Please follow the directions below to create your Room account: 1.Access the email account you provided upon registration to the hospital/physician office.2.Look for an invitation email from [facility].3.Open the email and access the invitation link: AcceptInvitation to Room.4.Fill in the required allen to create your account. To access your account, visit [email or web address]. Click the blue button labeled Access Patient Portal and then log in with the username and password that you created in the steps above. You will be able to view your test results, lab results, a summary of your visits, upcoming appointments and more. There is also a convenient messaging option where you can send secure messages to your p rovider. In addition, you will have the ability to download any documents or summaries to your computer and/or send the information securely to a physician. Remember that your healthcare information is confidential, so carefully consider who you will allowto register on the [facility] Patient Portal for access to your information. You can also access the [facility] on the [facility]. Simply click on Patient Portal and then log into your account. If you would like to receive a full copy of your medical records, please contact the [facility] Medical Records Department by calling [phone], Thursday through Thursday between 8 a.m. and 4:30 p.m. HOW TO SAFELY DISPOSE OF PRESCRIPTION MEDICATIONS Please use one of the following methods to safely dispose of your unused medications. 1.Use a drug disposal kit: the drug disposal pouch allows you to safely discard your old and unuseddrugs. Ask your nurse to give you one when you are discharged.2.Visit a local take-back location: Many local pharmacies and police departments have programs that collect old and unwanted prescriptiondrugs. Call your local pharmacy or go to http://[employer].Tweetflow/9Z0Jy5r to find one close to you.3.Make use of household items: Use cat litter or old coffee grounds to dispose medications if other options arenot available. Mix your drugs with these household products, seal them in an airtight container andthrow it into the garbage. Call [facility]: [phone] to be sure your drugs can be disposed of in this way. Some medicines may require a different approach.4.Never flush your medications down the toilet. IF YOU HAVE BEEN PRESCRIBED AN OPIOID FOR PAIN If you have been prescribed an opioid (such as hydrocodone, oxycodone or morphine), it is critical to understand the possible side effects and risks of opioid pain medications. Even when taken as directed, opioids can have several side effects including: Tolerance, meaning you might need to take more of a medication for the same pain relief. Nausea, vomiting and/or constipation. Sleepiness, dizziness, dry mouth, confusion, depression or itching. Physical dependence, meaning you have withdrawal symptoms when a medication is stopped, can develop within a few days. KNOW YOUR RESPONSIBILITIES It is important to know exactly how much and how often to take the opioid pain medications you are prescribed. Never take opioids in higher amounts or more often than prescribed. Do not combine opioids with alcohol or other drugs that cause drowsiness, such as benzodiazepines, also known as benzos, including diazepam and alprazolam, muscle relaxants or sleep aids. Never sell or share prescription opioids. This is illegal. Store opioids in a secure place and out of reach of others (including children, family, friends and visitors). The last page of this document has been signed and retained as a CHART COPY. Signatures Patient Education Materials Pneumothorax Medication Leaflets acetaminophen and oxycodone My discharge plan and instructions have been reviewed and explained to me and I,JENNIFER YORK understand my current condition and have read and understand these discharge instructions. I have received a written copy of the plan/instructions. If I have questions, I am aware that I should contactmy doctor. 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 Patient sustained right-sided rib fractures and a L1 transverse process fracture. He had evidence of a small rightpneumothorax on admission did not require chest tube. He was admitted to trauma service with consultation placed to neurosurgery. Patient was evaluated by neurosurgery with no plans for intervention at this time. Outpatient follow-up was recommended. He was evaluated by physical and Occupational Therapy during his hospitalization and recommendations were made for home OT with no further physical therapy needs. Eventually on 05/17/2024 patient met discharge criteria from a trauma standpoint all consultants. He was discharged to his assisted living facility with plans for outpatient occupationaltherapy. Allergies NKA Procedures None Consults Consult to Physician - Ordered -- 05/16/24 7:09:00 EDT, SUZANNA CARPENTER MD, Routine, nondisplaced fracture of the right L1 transverse process? Consult to Spiritual Care Team (Consult to Pastoral Care) - Ordered -- 05/16/24 2:25:17 EDT Imaging Results and Diagnostics XR Chest 1 View Result Date: May 16, 2024 Verified By: CARMEN HILL, LUIS Grant CLINICAL STATEMENT: IMPRESSION: 1. Resolution of small right apical pneumothorax.2. No acute cardiopulmonary process. XR Chest 1 View Result Date: May 15, 2024 Verified By: CLINICAL STATEMENT: IMPRESSION: Rotation to the left. Cardiomediastinal silhouette is within normal limits.Central pulmonary vascular congestion. No focal consolidations. Leftcostophrenic angle is sharp. Right costophrenic angle is sharp. Multipleright-sided rib fractures were better appreciated on same-day CT. Wiresexternal to patient limited evaluation of the right lung apex, questionablepleural line in the right lung apex consistent with a tiny 4 mm right apicalpneumothorax, the definite right pneumothorax is better appreciated onsame-day CT. Physical Exam Vitals and Measurements T: 36.8 C (Oral) TMIN: 36.4 C (Oral) TMAX: 36.9 C (Oral) HR: 77 RR: 16 BP: 107/69 SpO2: 95% Weight Dosing Weight: 85.7 kg (05/16/24) Dosing Weight: 85.7 kg (05/15/24) General -alert and oriented x4, answers questions appropriately. In no acute distress. HEENT -normocephalic. Cardiovascular -S1-S2, regular rate and rhythm. Respiratory -easy unlabored respirations. Chest rise symmetrical. Shallow respirations due to pain. Abdomen/GI -soft, nontender, bowel sounds present. Nondistended. Musculoskeletal -BLANCO x4. Psychiatric -calm and cooperative. Skin -normal for ethnicity. Code Status Code Status - Ordered -- 05/15/24 15:38:00 EDT, Full Code, Constant Order Admission Date 05/15/2024 Discharge Date 05/17/[address] Carpenter (neurosurgery) has ordered steroid injections in your back to assist with your chronic back pain. These are completed in the interventional radiology department of [facility]. The department will reach out to your regarding the scheduling of your injections. Medications Unchanged ferrous sulfate (FeroSul 325 mg (65 mg elemental iron) oral tablet)1 tab(s) by mouth two (2) times a day. Refills: 0. folic acid (folic acid 1 mg oral tablet)1 tab(s) by mouth once a day. Refills: 0. LORazepam (LORazepam 1 mg oral tablet)1 tab(s) by mouth every 8 hours as needed as needed for anxiety. losartan (losartan 50 mg oral tablet)1 tab(s) by mouth once a day for 30 Days. Refills: 5. methylcobalamin (Vitamin B12 Methylcobalamin 5000 mcg sublingual tablet)1 tab(s) under the tongue every week. Refills: 1. mirtazapine (mirtazapine 30 mg oral tablet)1 tab(s) by mouth daily at bedtime. Refills: 5. pantoprazole (pantoprazole 40 mg oral enteric coated tablet)1 tab(s) by mouth once a day. Refills: 5. thiamine (thiamine 100 mg oral tablet)1 tab(s) by mouth every day. Refills: 0. traZODone (traZODone 50 mg oral tablet)1 tab(s) by mouth daily at bedtime. Follow Up Appointments No qualifying data available. Follow Up Labs/Studies Discharge Labs No Follow-up Labs Discharge Studies No Follow-up Studies Discharge Diet No qualifying data available. Discharge Activity No qualifying data available. Condition on Discharge Good/stable Discharge Disposition Assisted living Information Provided To Patient and nursing staff Time Spent Minutes Digitally Signed by MECCA RODRÍGUEZ on 05/17/2024 08:54 AM [id number] Progress note Date of Service 05/16/2024 Chief Complaint Rib pain with movement Subjective Shared split visit to myself Dr. Garcia Examination patient he is seen resting supine in bed, in no acute distress. Patient only complaining of pain with movement to the left rib cage. He is denying any shortness of breath or chest pain. He denies any numbness or new tingling. Patient reports that he does have tingling in his right hand however this is related to an old injury. Patient is able to move all extremities without difficulty. Objective Vitals and Measurements T: 36.8 C (Oral) TMIN: 36.4 C (Oral) TMAX: 36.8 C (Oral) HR: 75 RR: 18 BP: 106/72 SpO2: 97% HT: 185.4 cm WT: 85.7 kg BMI: 24.93 Intake and Output 7AM Yesterday to 7AM Today Intake and Output (Last 24 hours) Intake Oral Intake 480.00 Administration Information 57.33 Output Stool Count 0.00 Urine Count 1.00 Total Summary Total Intake 537.33 Total Output 0.00 Fluid Balance 537.33 Physical Exam General: Awake and alert. Does not appear in distress. Able to answer questions. GCS 15 HEENT: Head appears normocephalic and atraumatic. No cephalohematoma. No bony step off. No raccoon sign. No castro sign. No otorrhea or rhinorrhea. Able to open and close mouth/jaw without pain/difficulty. Mucous membranes moist and pink. Sclerae anicteric. PERRLA Heart: Regular rate and rhythm. S1S2 present and without murmur, rub or gallop. Neck: No pain with palpation to midline. Lungs: Chest rise symmetrical. Respirations unlabored. Trachea midline. Clear to auscultation bilaterally. Chest: Mild tenderness to the right side chest . No crepitus with palpation. Abdomen: Soft and nontender. Nondistended. No guarding or rigidity. Bowel sounds 4 quadrants. Extremities: Moving all 4 without difficulty. No evidence of cyanosis clubbing or edema. Patient able to wiggle all digits without difficulty. He is able to plantar and flex without difficulty. Neurovascularly intact. Skin: No pallor or diaphoresis. No abrasions. No lacerations. Psychiatric: Calm and cooperative. Weight Dosing Weight: 85.7 kg (05/16/24) Dosing Weight: 85.7 kg (05/15/24) Medications Medications (23) Active Scheduled: (9) bacitracin topical 500 units/g Ointment TUBE 1 louisa, Topical, TID folic acid 1 mg tablet 1 mg 1 tab(s), Oral, qDay heparin 5,000 units/mL (1 mL) vial 5,000 unit(s) 1 mL, Subcutaneous, q8h ibuprofen 400 mg tablet 400 mg 1 tab(s), Oral, q6h losartan 50 mg tablet 50 mg 1 tab(s), Oral, qDay mirtazapine 15 mg tablet 30 mg 2 tab(s), Oral, qHS pantoprazole 40 mg EC tablet 40 mg 1 tab(s), Oral, qDay thiamine (w/calcium) 100 mg tablet 100 mg 1 tab(s), Oral, Daily traZODONE 50 mg Tablet 50 mg 1 tab(s), Oral, qHS Continuous: (1) Lactated Ringers 1,000 mL 1,000 mL, Intravenous, 20 mL/hr PRN: (13) acetaminophen 325 mg Tablet 650 mg 2 tab(s), Oral, q4h acetaminophen-OXYcodone 325 mg-5 mg Tablet 1 tab(s), Oral, q4h acetaminophen-OXYcodone 325 mg-5 mg Tablet 2 tab(s), Oral, q4h bisacodyl 10 mg Suppository 10 mg 1 supp, Rectal, qDay dextrose 50% Solution Disp syringe 50 mL 12.5 gram(s) 25 mL, IV Push, AsDirected docusate sodium 100 mg Capsule 100 mg 1 cap(s), Oral, BID HYDROmorphone 0.5 mg/0.5 mL PF syringe 0.5 mg 0.5 mL, IV Push, q3h HYDROmorphone 0.5 mg/0.5 mL PF syringe 0.25 mg 0.25 mL, IV Push, q3h HYDROmorphone 0.5 mg/0.5 mL PF syringe 0.5 mg 0.5 mL, IV Push, q3h LORAZEPam 1 mg Tablet 1 mg 1 tab(s), Oral, q8h magnesium hydroxide 8% Suspension 30 mL UD 30 mL, Oral, qDay ondansetron 2 mg/ 1 mL 2 mL INJ 4 mg 2 mL, IV Push, q4h promethazine 12.5 mg tablet 12.5 mg 1 tab(s), Oral, q6h Lab Results 05/16 04:17 WBC: 3.6 L Hgb: 9.5 L Hct: 28.5 L Platelet: 172 Neutrophil %: 50.1 Glucose Level: 108 Sodium Level: 138 Potassium Level: 3.9 BUN: 14.0 Creatinine Lvl (s): 0.89 Imaging Results and Diagnostics XR Chest 1 View Result Date: May 16, 2024 Verified By: LUIS MORALES MD CLINICAL STATEMENT: IMPRESSION: 1. Resolution of small right apical pneumothorax.2. No acute cardiopulmonary process. XR Chest 1 View Result Date: May 15, 2024 Verified By: CLINICAL STATEMENT: IMPRESSION: Rotation to the left. Cardiomediastinal silhouette is within normal limits.Central pulmonary vascular congestion. No focal consolidations. Leftcostophrenic angle is sharp. Right costophrenic angle is sharp. Multipleright-sided rib fractures were better appreciated on same-day CT. Wiresexternal to patient limited evaluation of the right lung apex, questionablepleural line in the right lung apex consistent with a tiny 4 mm right apicalpneumothorax, the definite right pneumothorax is better appreciated onsame-day CT. EKG EKG - Completed -- 05/15/24 15:28:00 EDT Assessment/Plan Patient is 64-year-old gentleman admitted to the trauma services team secondary to a mechanical fall at his assisted living resulting in small right-sided pneumothorax, right 8-12th fractures, and [id number] processes fractures of the right. Overall the patient remains hemodynamically stable. Vital signs, laboratory data and radiology reports have been reviewed. Chest x-ray completed showing resolution of small right apical pneumothorax-will review with Dr. Garcia. Plan: 1. S/p fall resulting in Polytrauma injuries including rib fx 8-12on the right side with that sincehas resolved since admission -Patient encouraged to cough and deep breathing use incentive spirometry 10 times hourly -Continue with multimodality pain control -Will consult PT/OT after seen and evaluated by neurosurgery -DVT prophylaxis-SCDs, MARIANO hose and subcutaneous heparin 2. L1 transverse processes fracture -Consult to neurosurgery-appreciate their input -Hold on physical and Occupational Therapy until seen and evaluated by neurosurgery 3. Will monitor for alcohol withdrawal -should the patient's start to show symptoms will initiate the CIWA protocol Case has been discussed with Dr. Garcia. Please see his addendum to follow. This document was dictated with voice recognition software and may contain grammatical errors Digitally Signed by FLAQUITA BORJAS on 05/16/2024 07:43 AM [id number] Neurological surgery Consult note Date of Service 05/16/2024 This is a split/shared consultation with Dr. Carpenter Reason for Consultation Right L1 transverse process fracture Referring Physician Dr. Garcia History of Present Illness This is a 64-year-old male with a PMH significant for HTN, anxiety, alcoholism, and BPH who typically resides in an SNF. He presented to the ED on 05/15/2024 after a mechanical fall. Reportedly, patient fell on a bottle, landing on his right side. He was found lying in bed. EMS was called for evaluation the ED. patient denies striking his head or loss of consciousness. In the ED, patient underwent trauma workup. CT thorax and abd/pelvis demonstrated a small right pneumothorax, and multiple mildly displaced fractures of the right posterior 8th through 11th ribs withquestionable right 12th rib fracture. In addition questionable nondisplaced fracture of the right L1 transverse process. Patient is admitted to trauma service for further workup and management of above. This morning, patient is seen resting in bed. He does not appear to be in any acute distress. He isalert, following simple commands. He does endorse right sided back pain, but notes that his biggestcomplaint is pain in his rib cage. He denies any radicular pain to his legs, or numbness or tingling in his legs or feet. Does endorse chronic intermittent back pain. Review of Systems Neurosurgical review of systems completed and negative unless stated in HPI. Physical Exam Vitals and Measurements T: 36.8 C (Oral) TMIN: 36.4 C (Oral) TMAX: 36.8 C (Oral) HR: 75 RR: 18 BP: 106/72 SpO2: 97% HT: 185.4 cm WT: 85.7 kg BMI: 24.93 Weight Dosing Weight: 85.7 kg (05/16/24) Dosing Weight: 85.7 kg (05/15/24) General: Alert, does not appear to be in acute distress. Well-developed. HEENT: Atraumatic, normocephalic, pupils equal and reactive to light, moist mucous membranes Neck: Supple Cardiac: Heart regular rate and rhythm Respiratory: Lungs clear to auscultation A/P Abdomen: Soft, nontender, bowel sounds present x4 MS: BLANCO Vascular: Pedal pulses are normal bilaterally, no edema Neuro: Patient is alert, oriented appropriately. His speech is clear and fluent. Facial features are symmetrical, tongue protrudes midline. Has strong bilateral upper extremity motor strength. Does have some chronic tingling in right hand that he provides is from a chronic injury. He is able to passively move BLE. He is able to lift both legs off of the bed at the hip without difficulty. He has strong knee flexion/extension, dorsiflexion and plantarflexion bilaterally. Sensation is intact to light touch throughout his lower extremities. Skin: Warm, dry, intact Lab Results 05/16 04:17 WBC: 3.6 L Hgb: 9.5 L Hct: 28.5 L Platelet: 172 Neutrophil %: 50.1 Glucose Level: 108 Sodium Level: 138 Potassium Level: 3.9 BUN: 14.0 Creatinine Lvl (s): 0.89 Imaging Results and Diagnostics XR Chest 1 View Result Date: May 16, 2024 Verified By: CARMEN HILL, LUIS Grant CLINICAL STATEMENT: IMPRESSION: 1. Resolution of small right apical pneumothorax.2. No acute cardiopulmonary process. XR Chest 1 View Result Date: May 15, 2024 Verified By: CLINICAL STATEMENT: IMPRESSION: Rotation to the left. Cardiomediastinal silhouette is within normal limits.Central pulmonary vascular congestion. No focal consolidations. Leftcostophrenic angle is sharp. Right costophrenic angle is sharp. Multipleright-sided rib fractures were better appreciated on same-day CT. Wiresexternal to patient limited evaluation of the right lung apex, questionablepleural line in the right lung apex consistent with a tiny 4 mm right apicalpneumothorax, the definite right pneumothorax is better appreciated onsame-day CT. Assessment/Plan Right nondisplaced L1 transverse process fracture s/p fall This is a 64-year-old male who suffered a mechanical fall at [facility], landing on his right side. Subsequently presented to ED via EMS on 05/15/2024 for further evaluation. He was found with several injuries including a small right pneumothorax, multiple rib fractures, and nondisplaced fracture of right L1 transverse process. Admitted to trauma service for further workup and evaluation. CT abd/pelvis completed in ED demonstrated nondisplaced fracture of the right L1 transverse process. This has been reviewed by Dr. Carpenter. On exam, patient does have right-sided back pain, however denies any radicular symptoms, or numbness/tingling in his legs or feet. He has no focal neurodeficit on exam. Strength and sensation are intact. Dr. Carpenter has reviewed with the patient that he will not require any type of surgical intervention. This fracture will be of no consequence to him. It should heal on its own over time. Did provide to the patient that these are painful, and as they heal, his pain should slowly improve. Patient does note that he has chronic intermittent back pain that he is dealt with for years. Dr. Carpenter did suggest that if patient's chronic back pain continues, could consider lumbar facet injections bilaterally from L4-S1 to assist with management of pain. This can be managed on an outpatient basis. Patient is cleared for PT/OT services, activity as tolerated from a neurosurgical standpoint. Remainder of injuries managed by primary team. Thank you for the consultation. Neurosurgery will sign off. Please do not hesitate to reach out with additional questions or concerns. See Dr. Carpenter's addendum for further details regarding neurosurgical assessment/plan of care. 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 Depression Dilated cardiomyopathy Edema of right upper arm Edema of right upper extremity CHECO (generalized anxiety disorder) Gastritis Generalized weakness Hill-Sachs fracture HTN (hypertension) Hyperlipidemia LDL goal <100 Hypomagnesemia Insomnia Low back pain Lumbosacral radiculitis Malnutrition Purpura of skin due to vascular fragility Right hip pain Right lumbar radiculitis Right sided weakness Scoliosis Shoulder strain Tremors of nervous system Weakness of right upper extremity Procedure/Surgical History Cataracts None Medications Inpatient bacitracin topical ointment, 1 louisa, Topical, TID Colace, 100 mg= 1 cap(s), Oral, BID, PRN Dextrose 50% IV Push, 12.5 gram(s)= 25 mL, IV Push, AsDirected, PRN Dilaudid, 0.5 mg= 0.5 mL, IV Push, q3h, PRN Dilaudid, 0.25 mg= 0.25 mL, IV Push, q3h, PRN Dilaudid, 0.5 mg= 0.5 mL, IV Push, q3h, PRN Dulcolax Laxative, 10 mg= 1 supp, Rectal, qDay, PRN folic acid, 1 mg= 1 tab(s), Oral, qDay heparin 5000 units/mL injection, 5000 unit(s)= 1 mL, Subcutaneous, q8h LORazepam, 1 mg= 1 tab(s), Oral, q8h, PRN losartan, 50 mg= 1 tab(s), Oral, qDay Milk of Magnesia, 30 mL, Oral, qDay, PRN Miralax Powder Packet, 17 gram(s)= 15 mL, Oral, qDay mirtazapine, 30 mg= 2 tab(s), Oral, qHS Motrin, 400 mg= 1 tab(s), Oral, q6h pantoprazole, 40 mg= 1 tab(s), Oral, qDay Percocet 325/5, 1 tab(s), Oral, q4h, PRN Percocet 325/5, 2 tab(s), Oral, q4h, PRN Phenergan, 12.5 mg= 1 tab(s), Oral, q6h, PRN thiamine, 100 mg= 1 tab(s), Oral, Daily traZODone, 50 mg= 1 tab(s), Oral, qHS Tylenol, 650 mg= 2 tab(s), Oral, q4h, PRN Zofran, 4 mg= 2 mL, IV Push, q4h, PRN Home FeroSul 325 mg (65 mg elemental iron) oral tablet, 325 mg= 1 tab(s), Oral, BID folic acid 1 mg oral tablet, 1 mg= 1 tab(s), Oral, qDay LORazepam 1 mg oral tablet, 1 mg= 1 tab(s), Oral, q8h, PRN losartan 50 mg oral tablet, 50 mg= 1 tab(s), Oral, qDay, 5 refills mirtazapine 30 mg oral tablet, 30 mg= 1 tab(s), Oral, qHS, 5 refills pantoprazole 40 mg oral enteric coated tablet, 40 mg= 1 tab(s), Oral, qDay, 5 refills thiamine 100 mg oral tablet, 100 mg= 1 tab(s), Oral, Daily traZODone 50 mg oral tablet, 50 mg= 1 tab(s), Oral, qHS Vitamin B12 Methylcobalamin 5000 mcg sublingual tablet, 5000 mcg= 1 tab(s), Sublingual, qWeek, 1 refills Allergies NKA Social History Alcohol Use: Current. Type: Liquor. Frequency: Several times per day., 03/29/2024 Use: Current. Type: Beer. Frequency: Daily. Average drinks per day: 12. Has alcohol use interfered with work or home life: No. Do you ever drink more than intended: Yes. Has anyone been hurt or at risk by your drinking: No. Ready to change: Yes. Concerns about alcohol use in household: Yes., 11/20/2019 Employment/School Status: Employed. Description: [employer]., 11/17/2022 Home/Environment Primary Prescription Benefit Specialist: Self lives with his , Veronica. Spouse Name: Veronica., 11/17/2022 Nutrition/Health Caffeine intake amount: coffee occasional., 08/07/2023 Substance Abuse Use: Never., 05/03/2019 Tobacco Nicotine Use: 4 or less cigarettes(less than 1/4 pack)/day in last 30 days, 3/4 ppd. Type: Cigarettes., 08/07/2023 Family History Cancer: Grandparent. Heart attack: Paternal Uncle. Pacemaker pulse generator: Son. Health Status Family Member(s) Mother: History is negative Father: History is unknown Family Member(s) Relationship: Father, Name: Robert York, Age: 85 Years Relationship: Sister, Name: Daniela York, Age: 61 Years, Cause: Down syndrome Immunizations SARS-CoV-2 mRNA (tozinameran) vaccine: 30 unknown unit (11/20/20) SARS-CoV-2 mRNA (tozinameran) vaccine: 30 unknown unit (10/30/20) tetanus/diphth/pertuss (Tdap) adult/adol: 0 unknown unit (06/08/13) Digitally Signed by BALJIT WILSON on 05/16/2024 08:50 AM [id number] Neurological surgery Consult note Date of Service 05/16/2024 This is a split/shared consultation with Dr. Carpenter Reason for Consultation Right L1 transverse process fracture Referring Physician Dr. Garcia History of Present Illness This is a 64-year-old male with a PMH significant for HTN, anxiety, alcoholism, and BPH who typically resides in an SNF. He presented to the ED on 05/15/2024 after a mechanical fall. Reportedly, patient fell on a bottle, landing on his right side. He was found lying in bed. EMS was called for evaluation the ED. patient denies striking his head or loss of consciousness. In the ED, patient underwent trauma workup. CT thorax and abd/pelvis demonstrated a small right pneumothorax, and multiple mildly displaced fractures of the right posterior 8th through 11th ribs withquestionable right 12th rib fracture. In addition questionable nondisplaced fracture of the right L1 transverse process. Patient is admitted to trauma service for further workup and management of above. This morning, patient is seen resting in bed. He does not appear to be in any acute distress. He isalert, following simple commands. He does endorse right sided back pain, but notes that his biggestcomplaint is pain in his rib cage. He denies any radicular pain to his legs, or numbness or tingling in his legs or feet. Does endorse chronic intermittent back pain. Review of Systems Neurosurgical review of systems completed and negative unless stated in HPI. Physical Exam Vitals and Measurements T: 36.8 C (Oral) TMIN: 36.4 C (Oral) TMAX: 36.8 C (Oral) HR: 75 RR: 18 BP: 106/72 SpO2: 97% HT: 185.4 cm WT: 85.7 kg BMI: 24.93 Weight Dosing Weight: 85.7 kg (05/16/24) Dosing Weight: 85.7 kg (05/15/24) General: Alert, does not appear to be in acute distress. Well-developed. HEENT: Atraumatic, normocephalic, pupils equal and reactive to light, moist mucous membranes Neck: Supple Cardiac: Heart regular rate and rhythm Respiratory: Lungs clear to auscultation A/P Abdomen: Soft, nontender, bowel sounds present x4 MS: BLANCO Vascular: Pedal pulses are normal bilaterally, no edema Neuro: Patient is alert, oriented appropriately. His speech is clear and fluent. Facial features are symmetrical, tongue protrudes midline. Has strong bilateral upper extremity motor strength. Does have some chronic tingling in right hand that he provides is from a chronic injury. He is able to passively move BLE. He is able to lift both legs off of the bed at the hip without difficulty. He has strong knee flexion/extension, dorsiflexion and plantarflexion bilaterally. Sensation is intact to light touch throughout his lower extremities. Skin: Warm, dry, intact Lab Results 05/16 04:17 WBC: 3.6 L Hgb: 9.5 L Hct: 28.5 L Platelet: 172 Neutrophil %: 50.1 Glucose Level: 108 Sodium Level: 138 Potassium Level: 3.9 BUN: 14.0 Creatinine Lvl (s): 0.89 Imaging Results and Diagnostics XR Chest 1 View Result Date: May 16, 2024 Verified By: CARMEN HILL, LUIS Grant CLINICAL STATEMENT: IMPRESSION: 1. Resolution of small right apical pneumothorax.2. No acute cardiopulmonary process. XR Chest 1 View Result Date: May 15, 2024 Verified By: CLINICAL STATEMENT: IMPRESSION: Rotation to the left. Cardiomediastinal silhouette is within normal limits.Central pulmonary vascular congestion. No focal consolidations. Leftcostophrenic angle is sharp. Right costophrenic angle is sharp. Multipleright-sided rib fractures were better appreciated on same-day CT. Wiresexternal to patient limited evaluation of the right lung apex, questionablepleural line in the right lung apex consistent with a tiny 4 mm right apicalpneumothorax, the definite right pneumothorax is better appreciated onsame-day CT. Assessment/Plan Right nondisplaced L1 transverse process fracture s/p fall This is a 64-year-old male who suffered a mechanical fall at [facility], landing on his right side. Subsequently presented to ED via EMS on 05/15/2024 for further evaluation. He was found with several injuries including a small right pneumothorax, multiple rib fractures, and nondisplaced fracture of right L1 transverse process. Admitted to trauma service for further workup and evaluation. CT abd/pelvis completed in ED demonstrated nondisplaced fracture of the right L1 transverse process. This has been reviewed by Dr. Carpenter. On exam, patient does have right-sided back pain, however denies any radicular symptoms, or numbness/tingling in his legs or feet. He has no focal neurodeficit on exam. Strength and sensation are intact. Dr. Carpenter has reviewed with the patient that he will not require any type of surgical intervention. This fracture will be of no consequence to him. It should heal on its own over time. Did provide to the patient that these are painful, and as they heal, his pain should slowly improve. Patient does note that he has chronic intermittent back pain that he is dealt with for years. Dr. Carpenter did suggest that if patient's chronic back pain continues, could consider lumbar facet injections bilaterally from L4-S1 to assist with management of pain. This can be managed on an outpatient basis. Patient is cleared for PT/OT services, activity as tolerated from a neurosurgical standpoint. Remainder of injuries managed by primary team. Thank you for the consultation. Neurosurgery will sign off. Please do not hesitate to reach out with additional questions or concerns. See Dr. Carpenter's addendum for further details regarding neurosurgical assessment/plan of care. 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 Depression Dilated cardiomyopathy Edema of right upper arm Edema of right upper extremity CHECO (generalized anxiety disorder) Gastritis Generalized weakness Hill-Sachs fracture HTN (hypertension) Hyperlipidemia LDL goal <100 Hypomagnesemia Insomnia Low back pain Lumbosacral radiculitis Malnutrition Purpura of skin due to vascular fragility Right hip pain Right lumbar radiculitis Right sided weakness Scoliosis Shoulder strain Tremors of nervous system Weakness of right upper extremity Procedure/Surgical History Cataracts None Medications Inpatient bacitracin topical ointment, 1 louisa, Topical, TID Colace, 100 mg= 1 cap(s), Oral, BID, PRN Dextrose 50% IV Push, 12.5 gram(s)= 25 mL, IV Push, AsDirected, PRN Dilaudid, 0.5 mg= 0.5 mL, IV Push, q3h, PRN Dilaudid, 0.25 mg= 0.25 mL, IV Push, q3h, PRN Dilaudid, 0.5 mg= 0.5 mL, IV Push, q3h, PRN Dulcolax Laxative, 10 mg= 1 supp, Rectal, qDay, PRN folic acid, 1 mg= 1 tab(s), Oral, qDay heparin 5000 units/mL injection, 5000 unit(s)= 1 mL, Subcutaneous, q8h LORazepam, 1 mg= 1 tab(s), Oral, q8h, PRN losartan, 50 mg= 1 tab(s), Oral, qDay Milk of Magnesia, 30 mL, Oral, qDay, PRN Miralax Powder Packet, 17 gram(s)= 15 mL, Oral, qDay mirtazapine, 30 mg= 2 tab(s), Oral, qHS Motrin, 400 mg= 1 tab(s), Oral, q6h pantoprazole, 40 mg= 1 tab(s), Oral, qDay Percocet 325/5, 1 tab(s), Oral, q4h, PRN Percocet 325/5, 2 tab(s), Oral, q4h, PRN Phenergan, 12.5 mg= 1 tab(s), Oral, q6h, PRN thiamine, 100 mg= 1 tab(s), Oral, Daily traZODone, 50 mg= 1 tab(s), Oral, qHS Tylenol, 650 mg= 2 tab(s), Oral, q4h, PRN Zofran, 4 mg= 2 mL, IV Push, q4h, PRN Home FeroSul 325 mg (65 mg elemental iron) oral tablet, 325 mg= 1 tab(s), Oral, BID folic acid 1 mg oral tablet, 1 mg= 1 tab(s), Oral, qDay LORazepam 1 mg oral tablet, 1 mg= 1 tab(s), Oral, q8h, PRN losartan 50 mg oral tablet, 50 mg= 1 tab(s), Oral, qDay, 5 refills mirtazapine 30 mg oral tablet, 30 mg= 1 tab(s), Oral, qHS, 5 refills pantoprazole 40 mg oral enteric coated tablet, 40 mg= 1 tab(s), Oral, qDay, 5 refills thiamine 100 mg oral tablet, 100 mg= 1 tab(s), Oral, Daily traZODone 50 mg oral tablet, 50 mg= 1 tab(s), Oral, qHS Vitamin B12 Methylcobalamin 5000 mcg sublingual tablet, 5000 mcg= 1 tab(s), Sublingual, qWeek, 1 refills Allergies NKA Social History Alcohol Use: Current. Type: Liquor. Frequency: Several times per day., 03/29/2024 Use: Current. Type: Beer. Frequency: Daily. Average drinks per day: 12. Has alcohol use interfered with work or home life: No. Do you ever drink more than intended: Yes. Has anyone been hurt or at risk by your drinking: No. Ready to change: Yes. Concerns about alcohol use in household: Yes., 11/20/2019 Employment/School Status: Employed. Description: [employer]., 11/17/2022 Home/Environment Primary Prescription Benefit Specialist: Self lives with his , Veronica. Spouse Name: Veronica., 11/17/2022 Nutrition/Health Caffeine intake amount: coffee occasional., 08/07/2023 Substance Abuse Use: Never., 05/03/2019 Tobacco Nicotine Use: 4 or less cigarettes(less than 1/4 pack)/day in last 30 days, 3/4 ppd. Type: Cigarettes., 08/07/2023 Family History Cancer: Grandparent. Heart attack: Paternal Uncle. Pacemaker pulse generator: Son. Health Status Family Member(s) Mother: History is negative Father: History is unknown Family Member(s) Relationship: Father, Name: MatteoRobert phelps, Age: 85 Years Relationship: Sister, Name: Daniela York, Age: 61 Years, Cause: Down syndrome Immunizations SARS-CoV-2 mRNA (tozinameran) vaccine: 30 unknown unit (11/20/20) SARS-CoV-2 mRNA (tozinameran) vaccine: 30 unknown unit (10/30/20) tetanus/diphth/pertuss (Tdap) adult/adol: 0 unknown unit (06/08/13) Digitally Signed by BALJIT WILSON on 05/16/2024 08:50 AM [id number] Progress note Date of Service 05/16/2024 Chief Complaint Rib pain with movement Subjective Shared split visit to myself Dr. Garcia Examination patient he is seen resting supine in bed, in no acute distress. Patient only complaining of pain with movement to the left rib cage. He is denying any shortness of breath or chest pain. He denies any numbness or new tingling. Patient reports that he does have tingling in his right hand however this is related to an old injury. Patient is able to move all extremities without difficulty. Objective Vitals and Measurements T: 36.8 C (Oral) TMIN: 36.4 C (Oral) TMAX: 36.8 C (Oral) HR: 75 RR: 18 BP: 106/72 SpO2: 97% HT: 185.4 cm WT: 85.7 kg BMI: 24.93 Intake and Output 7AM Yesterday to 7AM Today Intake and Output (Last 24 hours) Intake Oral Intake 480.00 Administration Information 57.33 Output Stool Count 0.00 Urine Count 1.00 Total Summary Total Intake 537.33 Total Output 0.00 Fluid Balance 537.33 Physical Exam General: Awake and alert. Does not appear in distress. Able to answer questions. GCS 15 HEENT: Head appears normocephalic and atraumatic. No cephalohematoma. No bony step off. No raccoon sign. No castro sign. No otorrhea or rhinorrhea. Able to open and close mouth/jaw without pain/difficulty. Mucous membranes moist and pink. Sclerae anicteric. PERRLA Heart: Regular rate and rhythm. S1S2 present and without murmur, rub or gallop. Neck: No pain with palpation to midline. Lungs: Chest rise symmetrical. Respirations unlabored. Trachea midline. Clear to auscultation bilaterally. Chest: Mild tenderness to the right side chest . No crepitus with palpation. Abdomen: Soft and nontender. Nondistended. No guarding or rigidity. Bowel sounds 4 quadrants. Extremities: Moving all 4 without difficulty. No evidence of cyanosis clubbing or edema. Patient able to wiggle all digits without difficulty. He is able to plantar and flex without difficulty. Neurovascularly intact. Skin: No pallor or diaphoresis. No abrasions. No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 It also increases the chance of getting pneumonia and tuberculosis. Cancer Alcohol raises the risk for several types of cancer. These include cancer of the mouth, esophagus, pharynx, larynx, liver, and breast. Sexual function Alcohol can lead to sexual problems. Home care These guidelines will help you deal with alcohol abuse: Admit you have a problem with alcohol. Ask for help from your healthcare provider. Also ask for help from trusted family members or close friends. Get help from people trained in dealing with alcohol abuse. This may be one-on-one counseling or group therapy. Or it may be an alcohol treatment program. Join a self-help group for alcohol abuse such as Alcoholics Anonymous. Stay away from people who abuse alcohol or tempt you to drink. Follow-up care Follow up with your healthcare provider, or as advised. Contact these groups to get help: Alcoholics Anonymous (AA). Go to www.aa.org. Or check the phone book for meetings near you. National Alcohol and Substance Abuse Information Center (NASAIC). 789.346.3574, www.addictioncareoptions.com National [place] on Alcoholism and Drug Dependence (NCADD). 356-SNL-MLSR (648-771-0116), www.ncadd.org Call 911 Call 911 if any of these occur: Trouble breathing or slow, irregular breathing Chest pain Sudden weakness on one side of your body or sudden trouble speaking Heavy bleeding or vomiting blood Very drowsy or trouble awakening Fainting or loss of consciousness Rapid heart rate Seizure When to seek medical care Call your healthcare provider right away if any of these occur: Confusion Seeing, hearing, or feeling things that aren t there (hallucinations) Pain in your upper belly that gets worse Vomiting that continues, vomiting with blood, or black or tarry stools Severe shakiness [phone] [employer]. [address] [place] [address], [place] [address]. All rights reserved. This information is not intended as a substitute for professional medical care. Always follow yourhealthcare professional's instructions. Follow Up Care 03/29/2024 17:20:11 With:JENNIFER VILLASEÑOR MD Address: [address] [place], [place] [address]- When:2-4 days [facility] 08-13-2024 Emergency department Discharge summary Discharge Instructions Thank you for allowing [facility] to assist you with your healthcare needs. The following is importantdischarge information regarding your hospital visit. Diagnosis from Today's Visit Alcohol abuse What to Do Next Instructions from Your Care Team No qualifying data available. Post Acute Orders No qualifying data available. You Need to Schedule the Following Appointments Follow Up with JENNIFER VILLASEÑOR MD When:Within 2-4 days Where:[address] [place] [address]- Allergies NKA Medications Please ask your primary doctor or pharmacist before taking any other medication not listed, including over the counter drugs, herbal medications, vitamins and or supplements as they may interact withyour home medications. What How Much When Why Instructions Last Dose Unchanged acetaminophen-oxyCODONE (acetaminophen-oxyCODONE 325 mg-5 mg oral tablet) 1 tab(s) by mouth Every 6 hours as needed for as needed for pain Hill-Sachs fracture Duration: 14 Days Unchanged ferrous sulfate (FeroSul 325 mg (65 mg elemental iron) oral tablet) 1 tab(s) by mouth Two (2) times a day Alcohol abuse History of encephalopathy Unchanged folic acid (folic acid 1 mg oral tablet) 1 tab(s) by mouth Once a day Alcohol abuse History of encephalopathy Unchanged losartan (losartan 50 mg oral tablet) 1 tab(s) by mouth Once a day Duration: 30 Days Unchanged methylcobalamin (Vitamin B12 Methylcobalamin 5000 mcg sublingual tablet) 1 tab(s) under the tongue Every week Alcohol abuse History of encephalopathy Unchanged mirtazapine (mirtazapine 30 mg oral tablet) 1 tab(s) by mouth Daily at bedtime Insomnia Unchanged pantoprazole (pantoprazole 40 mg oral enteric coated tablet) 1 tab(s) by mouth Once a day Alcoholism CHECO (generalized anxiety disorder) Unchanged thiamine (thiamine 100 mg oral tablet) 1 tab(s) by mouth Every day Alcohol abuse History of encephalopathy Please take this list to your next doctor s visit. Bring all medications you take, including over the counter medications, herbals and other supplements with you to your doctor s visit. Patients and families are reminded to discard old lists and to update any records with all medication providers or retail pharmacies. Education Materials Alcohol Abuse Alcoholic drinks harm you when you have too many of them. No set number of drinks defines too much.Drinking that affects your life or your health is called alcohol abuse. Alcohol abuse can hurt yourrelationships with others. You may lose friends, a spouse, or even your job. You may be abusing alcohol if any of the following are true for you: Duties at home or with child attendant suffer because of drinking. Duties at work or in school suffer because of drinking. You have missed work or school because of drinking. You use alcohol while driving or using machinery. You have legal problems such as arrests because of drinking. You keep drinking even though it causes serious problems in your life. Health problems Alcohol abuse causes many health problems. Sometimes this can happen after only drinking a little.The effects depend on how much you drink at one time, and how often you drink. Alcohol affects all parts of your body Brain Alcohol affects the central nervous system. It can damage parts of the brain that control your balance and gait, memory, thinking, and emotions. It can cause: Memory loss Blackouts Depression Agitation Sleep problems Seizures These changes may be nursing home (permanent). Heart and blood vessels Alcohol can damage heart muscle (cardiomyopathy). This can lead to: Trouble breathing Irregular heartbeat Atrial fibrillation Leg swelling Heart failure Alcohol also makes the blood vessels stiff. This causes high blood pressure. All of these problems raise your risk of having a heart attack or stroke. Liver Alcohol causes fat to build up in the liver. This affects how the liver works. Alcohol also raises the risk for hepatitis. It can cause: Belly (abdominal) pain Belly swelling Loss of appetite Yellowed eyes or skin (jaundice) Bleeding problems Cirrhosis This can affect your ability to fight off infections and can cause diabetes. The liver changes keep it from removing toxins in your blood that can cause brain disease (encephalopathy). This condition cause: Confusion Changed level of consciousness Personality changes Memory loss Seizures, coma, and The liver changes can also cause the veins in your esophagus and stomach to become thin and swollenwith blood (varices). This can cause bleeding and vomiting of blood. Pancreas Alcohol can cause swelling (inflammation) of the pancreas (pancreatitis). This can cause belly pain, fever, and diabetes. Immune system Alcohol weakens your immune system. This makes it harder for you to fight infections and colds. It also increases the chance of getting pneumonia and tuberculosis. Cancer Alcohol raises the risk for several types of cancer. These include cancer of the mouth, esophagus, pharynx, larynx, liver, and breast. Sexual function Alcohol can lead to sexual problems. Home care These guidelines will help you deal with alcohol abuse: Admit you have a problem with alcohol. Ask for help from your healthcare provider. Also ask for help from trusted family members or close friends. Get help from people trained in dealing with alcohol abuse. This may be one-on-one counseling or group therapy. Or it may be an alcohol treatment program. Join a self-help group for alcohol abuse such as Alcoholics Anonymous. Stay away from people who abuse alcohol or tempt you to drink. Follow-up care Follow up with your healthcare provider, or as advised. Contact these groups to get help: Alcoholics Anonymous (AA). Go to www.aa.org. Or check the phone book for meetings near you. National Alcohol and Substance Abuse Information Center (NASAIC). 839.229.3183, www.addictioncareoptions.com National [place] on Alcoholism and Drug Dependence (NCADD). 468-KOL-JEWH (755-930-8132), www.ncadd.org Call 911 Call 911 if any of these occur: Trouble breathing or slow, irregular breathing Chest pain Sudden weakness on one side of your body or sudden trouble speaking Heavy bleeding or vomiting blood Very drowsy or trouble awakening Fainting or loss of consciousness Rapid heart rate Seizure When to seek medical care Call your healthcare provider right away if any of these occur: Confusion Seeing, hearing, or feeling things that aren t there (hallucinations) Pain in your upper belly that gets worse Vomiting that continues, vomiting with blood, or black or tarry stools Severe shakiness [phone] [employer] [address] [place] [address], [place] [address]. All rights reserved. This information is not intended as a substitute for professional medical care. Always follow yourhealthcare professional's instructions. Additional Information VACCINATE! IT SAVES LIVES! Members of the community who have not yet received the COVID-19 vaccine and would like to receive it can visit one of [facility] vaccine clinics. There are many vaccine clinic locations within the [facility]. For locations and available times, please visit www.[email or web address].[email or web address]/. It is important to note that some COVID mobile vaccine clinics are held outdoors and may be canceled in rainy or stormy conditions. To learn more about pediatric vaccinations (ages 5-11), we invite you to visit the [facility] webpage. [email or web address].[email or web address]/pages/[email or web address]-[email or web address]-[email or web address] stions.htmlTo learn more about the COVID-19 vaccine, we invite you to visit the CDC website for a list of frequently asked questions. https://www.cdc.gov/coronavirus/2019-ncov/vaccines/faq.html [facility] Patient Portal Access Instructions: Stay connected with your healthcare team and access your personal medical information anytime with the [facility] Patient Portal. If you would like a full copy of your medical records please contact the [facility] Medical Records Department Thursday through Thursday between 8a.m. and 4:30p.m. Please follow the directions below to access the portal: 1.Access the email account you provided upon registration to the hospital.2.Look for an invitation email from [facility].3.Open the email and access the invitation link: Accept Invitation to [facility]4.Fill in the required allen to create your account. Sign into [email or web address] with your username and password that you created in the above steps to stay up to date. You can then view a summary of results, a summary of your visits, and the ability to download your summaries to your computer or send the information securely to a physician. Remember that your healthcare information is confidential, so carefully consider who you will allow to register on the [facility] Patient Portal for access to your information. You can also access the [facility] Patient Portal on the [employer] louisa. Simply click on Health Records under [employer] and then click on the [facility] logo. HOW TO SAFELY DISPOSE OF PRESCRIPTION MEDICATIONS Please use one of the following methods to safely dispose of your unused medications. 1.Use a drug disposal kit: the drug disposal pouch allows you to safely discard your old and unuseddrugs. Ask your nurse to give you one when you are discharged.2.Visit a local take-back location: Many local pharmacies and police departments have programs that collect old and unwanted prescriptiondrugs. Call your local pharmacy or go to http://[employer].Tweetflow/4I9Kb5w to find one close to you.3.Make use of household items: Use cat litter or old coffee grounds to dispose medications if other options arenot available. Mix your drugs with these household products, seal them in an airtight container andthrow it into the garbage. Call [facility]: [phone] to be sure your drugs can be disposed of in this way. Some medicines may require a different approach.4.Never flush your medications down the toilet. IF YOU HAVE BEEN PRESCRIBED AN OPIOIDS FOR PAIN If you have been prescribed an opioid (such as hydrocodone, oxycodone or morphine), it is critical to understand the possible side effects and risks of opioid pain medications. Even when taken as directed, opioids can have several side effects including: Tolerance, meaning you might need to take more of a medication for the same pain relief. Nausea, vomiting and/or constipation. Sleepiness, dizziness, dry mouth, confusion, depression or itching. Physical dependence, meaning you have withdrawal symptoms when a medication is stopped ? this can develop within a few days. KNOW YOUR RESPONSIBILITIES It is important to know exactly how much and how often to take the opioid pain medications you are prescribed. Never take opioids in higher amounts or more often than prescribed. Do not combine opioids with alcohol or other drugs that cause drowsiness, such as benzodiazepines, also known as benzos,including diazepam and alprazolam, muscle relaxants or sleep aids. Never sell or share prescriptionopioids. This is illegal. Store opioids in a secure place and out of reach of others (including children, family, friends and visitors). The last page(s) of this document has been signed and retained as a CHART COPY Signatures Patient Education Materials Alcohol Abuse Medication Leaflets My discharge plan and instructions have been reviewed and explained to me and I,JENNIFER YORK understand my current condition and have read and understand these discharge instructions. I have received a written copy of the plan/instructions. If I have questions, I am aware that I should contactmy doctor. 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 The following is importantdischarge information regarding your hospital visit. Diagnosis from Today's Visit Alcohol abuse What to Do Next Instructions from Your Care Team No qualifying data available. Post Acute Orders No qualifying data available. You Need to Schedule the Following Appointments Follow Up with JENNIFER IVLLASEÑOR MD When:Within 2-4 days Where:[address] [facility] [place] [address]- Allergies NKA Medications Please ask your primary doctor or pharmacist before taking any other medication not listed, including over the counter drugs, herbal medications, vitamins and or supplements as they may [facility] medications. What How Much When Why Instructions Last Dose Unchanged acetaminophen-oxyCODONE (acetaminophen-oxyCODONE 325 mg-5 mg oral tablet) 1 tab(s) by mouth Every 6 hours as needed for as needed for pain Hill-Sachs fracture Duration: 14 Days Unchanged ferrous sulfate (FeroSul 325 mg (65 mg elemental iron) oral tablet) 1 tab(s) by mouth Two (2) times a day Alcohol abuse History of encephalopathy Unchanged folic acid (folic acid 1 mg oral tablet) 1 tab(s) by mouth Once a day Alcohol abuse History of encephalopathy Unchanged losartan (losartan 50 mg oral tablet) 1 tab(s) by mouth Once a day Duration: 30 Days Unchanged methylcobalamin (Vitamin B12 Methylcobalamin 5000 mcg sublingual tablet) 1 tab(s) under the tongue Every week Alcohol abuse History of encephalopathy Unchanged mirtazapine (mirtazapine 30 mg oral tablet) 1 tab(s) by mouth Daily at bedtime Insomnia Unchanged pantoprazole (pantoprazole 40 mg oral enteric coated tablet) 1 tab(s) by mouth Once a day Alcoholism CHECO (generalized anxiety disorder) Unchanged thiamine (thiamine 100 mg oral tablet) 1 tab(s) by mouth Every day Alcohol abuse History of encephalopathy Please take this list to your next doctor s visit. Bring all medications you take, including over the counter medications, herbals and other supplements with you to your doctor s visit. Patients and families are reminded to discard old lists and to update any records with all medication providers or retail pharmacies. Education Materials Alcohol Abuse Alcoholic drinks harm you when you have too many of them. No set number of drinks defines too much.Drinking that affects your life or your health is called alcohol abuse. Alcohol abuse can hurt yourrelationships with others. You may lose friends, a spouse, or even your job. You may be abusing alcohol if any of the following are true for you: Duties at home or with child attendant suffer because of drinking. Duties at work or in school suffer because of drinking. You have missed work or school because of drinking. You use alcohol while driving or using machinery. You have legal problems such as arrests because of drinking. You keep drinking even though it causes serious problems in your life. Health problems Alcohol abuse causes many health problems. Sometimes this can happen after only drinking a little.The effects depend on how much you drink at one time, and how often you drink. Alcohol affects all parts of your body Brain Alcohol affects the central nervous system. It can damage parts of the brain that control your balance and gait, memory, thinking, and emotions. It can cause: Memory loss Blackouts Depression Agitation Sleep problems Seizures These changes may be long term care administrator (permanent). Heart and blood vessels Alcohol can damage heart muscle (cardiomyopathy). This can lead to: Trouble breathing Irregular heartbeat Atrial fibrillation Leg swelling Heart failure Alcohol also makes the blood vessels stiff. This causes high blood pressure. All of these problems raise your risk of having a heart attack or stroke. Liver Alcohol causes fat to build up in the liver. This affects how the liver works. Alcohol also raises the risk for hepatitis. It can cause: Belly (abdominal) pain Belly swelling Loss of appetite Yellowed eyes or skin (jaundice) Bleeding problems Cirrhosis This can affect your ability to fight off infections and can cause diabetes. The liver changes keep it from removing toxins in your blood that can cause brain disease (encephalopathy). This condition cause: Confusion Changed level of consciousness Personality changes Memory loss Seizures, coma, and The liver changes can also cause the veins in your esophagus and stomach to become thin and swollenwith blood (varices). This can cause bleeding and vomiting of blood. Pancreas Alcohol can cause swelling (inflammation) of the pancreas (pancreatitis). This can cause belly pain, fever, and diabetes. Immune system Alcohol weakens your immune system. This makes it harder for you to fight infections and colds. It also increases the chance of getting pneumonia and tuberculosis. Cancer Alcohol raises the risk for several types of cancer. These include cancer of the mouth, esophagus, pharynx, larynx, liver, and breast. Sexual function Alcohol can lead to sexual problems. Home care These guidelines will help you deal with alcohol abuse: Admit you have a problem with alcohol. Ask for help from your healthcare provider. Also ask for help from trusted family members or close friends. Get help from people trained in dealing with alcohol abuse. This may be one-on-one counseling or group therapy. Or it may be an alcohol treatment program. Join a self-help group for alcohol abuse such as Alcoholics Anonymous. Stay away from people who abuse alcohol or tempt you to drink. Follow-up care Follow up with your healthcare provider, or as advised. Contact these groups to get help: Alcoholics Anonymous (AA). Go to www.aa.org. Or check the phone book for meetings near you. National Alcohol and Substance Abuse Information Center (NASAIC). 932.637.8908, www.addictioncareoptions.com National [place] on Alcoholism and Drug Dependence (NCADD). 361-WFO-MGBB (455-739-9313), www.ncadd.org Call 911 Call 911 if any of these occur: Trouble breathing or slow, irregular breathing Chest pain Sudden weakness on one side of your body or sudden trouble speaking Heavy bleeding or vomiting blood Very drowsy or trouble awakening Fainting or loss of consciousness Rapid heart rate Seizure When to seek medical care Call your healthcare provider right away if any of these occur: Confusion Seeing, hearing, or feeling things that aren t there (hallucinations) Pain in your upper belly that gets worse Vomiting that continues, vomiting with blood, or black or tarry stools Severe shakiness [phone] [employer]. [address] [place] [address]. All rights reserved. This information is not intended as a substitute for professional medical care. Always follow yourhealthcare professional's instructions. Additional Information VACCINATE! IT SAVES LIVES! Members of the community who have not yet received the COVID-19 vaccine and would like to receive it can visit one of [facility] vaccine clinics. There are many vaccine clinic locations within the [facility]. For locations and available times, please visit www.gettheshot.coronavirus.[place].gov/. It is important to note that some COVID mobile vaccine clinics are held outdoors and may be canceled in rainy or stormy conditions. To learn more about pediatric vaccinations (ages 5-11), we invite you to visit the [facility] webpage. [email or web address]/[email or web address] [email or web address] learn more about the COVID-19 vaccine, we invite you to visit the CDC website for a list of frequently asked questions. https://www.cdc.gov/coronavirus/2019-ncov/vaccines/faq.html [facility] Patient Portal Access Instructions: Stay connected with your healthcare team and access your personal medical information anytime with the [facility] Patient Portal. If you would like a full copy of your medical records please contact the [facility] Medical Records Department Thursday through Thursday between 8a.m. and 4:30p.m. Please follow the directions below to access the portal: 1.Access the email account you provided upon registration to the [facility].2.Look for an invitation email from [facility].3.Open the email and access the invitation link: Accept Invitation to [facility]4.Fill in the required allen to create your account. Sign into [email or web address] with your username and password that you created in the above steps to stay up to date. You can then view a summary of results, a summary of your visits, and the ability to download your summaries to your computer or send the information securely to a physician. Remember that your healthcare information is confidential, so carefully consider who you will allow to register on the [facility] Patient Portal for access to your information. You can also access the [facility] Patient Portal on the [employer] louisa. Simply click on Health Records under [employer] and then click on the [employer] logo. HOW TO SAFELY DISPOSE OF PRESCRIPTION MEDICATIONS Please use one of the following methods to safely dispose of your unused medications. 1.Use a drug disposal kit: the drug disposal pouch allows you to safely discard your old and unuseddrugs. Ask your nurse to give you one when you are discharged.2.Visit a local take-back location: Many local pharmacies and police departments have programs that collect old and unwanted prescriptiondrugs. Call your local pharmacy or go to http://[employer].Tweetflow/1C8It3a to find one close to you.3.Make use of household items: Use cat litter or old coffee grounds to dispose medications if other options arenot available. Mix your drugs with these household products, seal them in an airtight container andthrow it into the garbage. Call [facility]: [phone] to be sure your drugs can be disposed of in this way. Some medicines may require a different approach.4.Never flush your medications down the toilet. IF YOU HAVE BEEN PRESCRIBED AN OPIOIDS FOR PAIN If you have been prescribed an opioid (such as hydrocodone, oxycodone or morphine), it is critical to understand the possible side effects and risks of opioid pain medications. Even when taken as directed, opioids can have several side effects including: Tolerance, meaning you might need to take more of a medication for the same pain relief. Nausea, vomiting and/or constipation. Sleepiness, dizziness, dry mouth, confusion, depression or itching. Physical dependence, meaning you have withdrawal symptoms when a medication is stopped ? this can develop within a few days. KNOW YOUR RESPONSIBILITIES It is important to know exactly how much and how often to take the opioid pain medications you are prescribed. Never take opioids in higher amounts or more often than prescribed. Do not combine opioids with alcohol or other drugs that cause drowsiness, such as benzodiazepines, also known as benzos,including diazepam and alprazolam, muscle relaxants or sleep aids. Never sell or share prescriptionopioids. This is illegal. Store opioids in a secure place and out of reach of others (including children, family, friends and visitors). The last page(s) of this document has been signed and retained as a CHART COPY Signatures Patient Education Materials Alcohol Abuse Medication Leaflets My discharge plan and instructions have been reviewed and explained to me and I,ROHAN JENNIFER Mancia understand my current condition and have read and understand these discharge instructions. I have received a written copy of the plan/instructions. If I have questions, I am aware that I should contactmy doctor. 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 HISTORY: ORDERING SYSTEM PROVIDED HISTORY: Reason for Exam: pain FINDINGS: There is no fracture or dislocation. Mild degenerative findings at the glenohumeral joint and acromioclavicular joint of the right shoulder are unchanged. Adjacent right ribs are intact. IMPRESSION: Mild osteoarthritis of the right shoulder. Interpreted by: Luis Morales MD Preliminary Report By: Luis Morales MD Electronically signed By Luis Morales MD Dictated Date: 02/14/2024 1:48:41 AM Prelim Date: 02/14/2024 1:50:18 AM Sign Date: 02/14/2024 1:50:18 AM Ordering Provider: [facility]05-10-2024 Discharge summary Author Papo Rodriguez [facility] December 25, 2023 10:23am Note Date/Time December 25, 2023 10:23 am [facility] Medical Records Department [address] [place] [address] Discharge Summary 12/25/23 1021 MR#: [id number] Acct: [id number] Name: JENNIFER YORK Rep #:[id number] : 1960 63 From: Papo Rodriguez DO PCP: Dr. Jennifer Villaseñor MD Status:ADM IN Location: [place] [address] Providers Date of Admission: 12/19/23 Primary Care Physician: Dr. Jennifer Villaseñor MD Reason For Visit: ETOH WITHDRAWL Diagnosis Discharge Diagnosis (1) Alcohol withdrawal: Status: Acute Code(s): F10.939 - Alcohol use, unspecified with withdrawal, unspecified Qualifiers: Complication of substance-induced condition: with delirium Qualified Code(s): F10.931 - Alcohol use, unspecified with withdrawal delirium Plan Acute metabolic encephalopathy * Resolved but patient has flat affect overall. * 2/2 acute alcohol withdrawal * treat the underlying withdrawal. * deescalate medications: Discontinue phenobarbital, gabapentin,trazodone. Acute alcohol withdrawal * Last drink was 2 days prior to presentation. * Phenobarbital taper in addition to adjuvant medications including gabapentin, Bentyl, hydroxyzine and clonidine as needed for alcohol withdrawal symptoms. Patient was also placed on thiamine and folic acid * Addiction medicine to facilitate outpt treatment program. Hypokalemia, Hypomagnesemia, Hypophosphatemia * potassium still low despite replacement. * Recheck magnesium phosphorus levels. Hyponatremia * Likely secondary to beer potomania. Appears to be stable at this time. pancytopenia * suspect due to underlying liver disease * Anemia * Iron low at 32 but ferritin is very high at 3219. MCV consistent with macrocytosis. Folate low. On replacement. B12 pending. * check transferrin * Thrombocytopenia * unclear etiology * monitor hypotension * transient, resolved * dc losartan * AM cortisol within normal limits * Blood pressure dropped from 131 lying to 114 standing. Heart rate remained relatively the same actually went down upon standing. Hyperbilirubinemia * US shows hepatic steatosis w hepatomegaly * suspect due to underlying liver disease. At least due to alcohol, but with elevated ferritin, cannot rule out hemochromatosis. * follow up with GI as outpt. Debility * Waiting on placement acceptance. * Discussed with the patient that I am concerned that he may have a neurologic condition, more specifically multisystem atrophy, did recommend that he follow- up with a neurologist for further evaluation. Rash * Resolved * unclear etiology but I suspect its either a drug rash or a viral exanthem, I favor the former. * I discontinued much of his medications leaving only multivitamin, nicotine patch and topical nystatin and calamine. * Will check a viral panel though I feel it is less likely due to a viral exanthem. Chronic conditions * Hypertension- Blood pressure controlled. Continue with losartan., home medications continued with dose adjustment as needed * Lung nodule? Measuring 11 mm right base plan outpt followup with pulmonary. * Tobacco dependence- Counseled on cessation, offered nicotine patch for tobacco cravings DVT prophylaxis? Bilateral SCDs Medications at Discharge Home Medications pantoprazole 40 mg tablet,delayed release 40 mg PO DAILY GERD 12/19/23 multivitamin-iron 9 mg-folic acid 400 mcg-calcium and minerals tablet (Therapeutic-M) 1 tab PO BREAKFAST #0 tabs 12/25/23 nicotine 14 mg/24 hr daily transdermal patch 14 mg transdermal DAILY #0 ea 12/25/23 Hospital Course Operations None Procedures None Summary of Care Provided Minutes Spent on Discharge: 35 Physical Exam Const alert and no apparent distress Constitutional Narrative: Up in chair eating breakfast. Patient is attempting to open his milk carton with a butter knife. HEENT normocephalic and head/scalp atraumatic Weight / BMI Weight Weight: 80.8 kg Body Mass Index (BMI) 23.5 ABG / Lab / Microbiology Data 12/25/23 06:30 12/25/23 06:30 Laboratory: Laboratory Results - last 24 hr 12/25/23 06:30: WBC 3.1 L, RBC 2.63 L, Hgb 9.0 L, Hct 26.9 L, MCV 102.3 H, MCH 34.2 H, MCHC 33.5, RDW Std Deviation 59.7 H, RDW Coeff of Saloni 15.9 H, Plt Count 173, MPV 11.2, Immature Gran % (Auto) 1.300 H, Neut % (Auto) 57.5, Lymph % (Auto) 25.0, [place] % (Auto) 14.0 H, Eos % (Auto) 1.6, Baso % (Auto) 0.6, AbsoluteNeuts (auto) 1.8 L, Absolute Lymphs (auto) 0.77 L, Nucleated RBC % 0, Sodium 134L, Potassium 3.6, Chloride 104, Carbon Dioxide 25.0, Anion Gap 5, BUN 9, Creatinine 0.50 L, Estim Creat Clear Calc 170.90, Est GFR (MDRD) Af Amer 213, Est GFR (MDRD) Non-Af 176, BUN/Creatinine Ratio 17.8, Glucose 84, Calcium 8.4 L,Total Bilirubin 1.80 H, AST 217 H, ALT 124 H, Alkaline Phosphatase 222 H, Total Protein 6.6, Albumin 2.4 L, Globulin 4.2, Albumin/Globulin Ratio 0.6 L Microbiology: Microbiology 12/24/23 10:40 Mucosa - Nose SARS-CoV-2, Influenza & RSV (PCR) - Final 12/19/23 00:13 Blood Culture (Wb) - Left Hand Blood Culture - Final No growth in 5 days. 12/19/23 00:36 Blood Culture (Wb) - Left Hand Blood Culture - Final No growth in 5 days. 12/18/23 23:02 Urine, Clean Catch Urine Culture - Final Mixed Gram Positive Organisms 12/19/23 01:59 Mucosa - Nasopharyngeal Respiratory Panel (PCR) - Final 12/19/23 00:00 Urine, Clean Catch Legionella Antigen - Final 12/19/23 00:00 Urine, Clean Catch Streptococcus pneumoniae Antigen (M - Final 12/18/23 23:40 Mucosa - Nose SARS-CoV-2, Influenza & RSV (PCR) - Final D/C Instructions Discharge Diet: No restrictions Meaningful Use Info Meaningful Use Meaningful Use Diagnoses (Choose all that apply): None applicable Ischemic Stroke Statin Dosing Therapy Reference: STATIN DOSE THERAPY REFERENCE: * Patients > 75 years receive moderate or high dose statin therapy. * Patients 75 years or YOUNGER should receive HIGH intensity statin dose unless contraindicated. You will be required to document reason for non-treatment if statin daily dose does not meet guidelines. HIGH DOSE STATIN THERAPY DAILY Atorvastatin > than or = to 40 mg Rosuvastatin > than or = to 20 mg Amlodipine + Atorvastatin > than or = to 2.5/40 mg Ezetimibe + Simvastatin 10/80 mg Simvastatin 80mg Discharge Plan Admission Admit Date/Time: 12/19/23 00:44 Primary Reason for Your Visit: debility. alcohol withdrawal. Attending Provider: Papo Rodriguez Primary Care Provider: Jennifer Villaseñor Consulting Providers: Taylor Kaur David Discharge Orders/Prescriptions Prescriptions: New Therapeutic-M 9 mg iron-400 mcg Tablet 1 tab PO BREAKFAST Qty: 0 0RF nicotine 14 mg/24 hr Patch 24 Hour 14 mg transdermal DAILY Qty: 0 0RF Continued pantoprazole 40 mg tablet,delayed release (DR/EC) 40 mg PO DAILY Discontinued losartan 50 MG tablet 1 tab PO DAILY alprazolam 1 mg tablet 1 mg PO TID mirtazapine 30 mg tablet 30 mg PO QHS oxycodone-acetaminophen 5-325 mg tablet 1 tab PO Q6H PRN PRN (Reason: pain) Referrals / Follow Up: Jennifer Villaseñor MD [Primary Care Provider] - Within 2 Weeks Disposition Disposition (needs filled in before D/C Order can be placed): [facility] Charges/Coding Visit Charges Inpatient E&M: 40176 Disch Hosp >30min 12/25/23 1023 <Electronically signed by Papo Rodriguez DO> Cosigner Signature (if applicable): CC: Dr. Papo Rodriguez DO; Dr. Jennifer Villaseñor MD~ Signed [facility] Work Phone: [phone] 625-915505-10-2024 Discharge summary Author Papo [facility] December 25, 2023 10:21am Note Date/Time December 25, 2023 10:18 am [facility] Medical Records Department [address] [place] [address] Transfer to [facility] MR#: [id number] Acct: [id number] Name: JENNIFER YORK Rep #:[id number] : 1960 63 From: Papo Rodriguez DO PCP: Dr. Jennifer Villaseñor MD Status:ADM IN Certification of patient admission REQUIRED AT TIME OF ADMISSION. I CERTIFY THAT POST-HOSPITAL F SERVICES ARE REQUIRED TO BE GIVEN ON AN IN-PATIENT BASIS BECAUSE OF THE ABOVE NAMED PATIENT'S NEED FOR RETIREMENT CARE ON A CONTINUING BASIS FOR THE CONDITION(S) FOR WHICH HE/SHE WAS RECEIVING IN-PATIENT HOSPITAL SERVICES PRIOR TO HIS/HER TRANSFER TO THE [facility]. 12/25/23 1021<Electronically signed by Papo Rodriguez DO> Diet Diet Order/Speech Therapy: 12/19/23 01:40 Diet: Cardiac - Heart Healthy Food consistency:: Regular Liquid Consistency:: Regular/Thin Routine Orders/Code Status Routine Lab Work: - (CMP weekly ) Code Status: Full Code Therapies Weight Bearing: Full weight bearing Extremity Affected:: Bilateral Lower Physical Therapy: Eval and Treat Occupational Therapy: Eval and Treat Problem/Diagnosis (1) Alcohol withdrawal: Status: Acute Code(s): F10.939 - Alcohol use, unspecified with withdrawal, unspecified Plan Acute metabolic encephalopathy * 2/2 acute alcohol withdrawal * treat the underlying withdrawal. * deescalate medications: phenobarbital, gabapentin,trazodone. Acute alcohol withdrawal * Last drink was 2 days prior to presentation. * Phenobarbital taper in addition to adjuvant medications including gabapentin, Bentyl, hydroxyzine and clonidine as needed for alcohol withdrawal symptoms. Patient was also placed on thiamine and folic acid * Addiction medicine to facilitate outpt treatment program. Hypokalemia, Hypomagnesemia, Hypophosphatemia * potassium still low despite replacement. * Recheck magnesium phosphorus levels. Hyponatremia * Likely secondary to beer potomania. Appears to be stable at this time. pancytopenia * suspect due to underlying liver disease * Anemia * Iron low at 32 but ferritin is very high at 3219. MCV consistent with macrocytosis. Folate low. On replacement. B12 pending. * check transferrin * Thrombocytopenia * unclear etiology * monitor hypotension * transient, resolved * dc losartan * check AM cortisol * Blood pressure dropped from 131 lying to 114 standing. Heart rate remained relatively the same actually went down upon standing. Hyperbilirubinemia * US shows hepatic steatosis w hepatomegaly * suspect due to underlying liver disease. At least due to alcohol, but with elevated ferritin, cannot rule out hemochromatosis. * follow up with GI as outpt. Debility * Waiting on placement acceptance. * Discussed with the patient that I am concerned that he may have a neurologic condition, more specifically multisystem atrophy, did recommend that he follow- up with a neurologist for further evaluation. Rash * Unclear etiology but I suspect its either a drug rash or a viral exanthem, I favor the former. * I discontinued much of his medications leaving only multivitamin, nicotine patch and topical nystatin and calamine. * Will check a viral panel though I feel it is less likely due to a viral exanthem. Chronic conditions * Hypertension- Blood pressure controlled. Continue with losartan., home medications continued with dose adjustment as needed * Lung nodule? Measuring 11 mm right base plan outpt followup with pulmonary. * Tobacco dependence- Counseled on cessation, offered nicotine patch for tobacco cravings DVT prophylaxis? Bilateral SCDs Allergies/Procedures Done in Hospital Allergies No Known Allergies Allergy (Verified 12/18/23 22:18) Procedures: None Type of Care/Length of Stay Estimated LOS: Convalescent Care Less Than 30 days Type of Care Needed: Skilled Rehab Potential: Fair Prognosis: Fair Additional Orders/Day of Discharge Day of Discharge: 12/25/23 Discharge Plan Admission Admit Date/Time: 12/19/23 00:44 Primary Reason for Your Visit: debility. alcohol withdrawal. Attending Provider: Papo Rodriguez Primary Care Provider: Jennifer Villaseñor Consulting Providers: Taylor Kaur; Janet Erazo Discharge Orders/Prescriptions Prescriptions: New Therapeutic-M 9 mg iron-400 mcg Tablet 1 tab PO BREAKFAST Qty: 0 0RF nicotine 14 mg/24 hr Patch 24 Hour 14 mg transdermal DAILY Qty: 0 0RF Continued pantoprazole 40 mg tablet,delayed release (DR/EC) 40 mg PO DAILY Discontinued losartan 50 MG tablet 1 tab PO DAILY alprazolam 1 mg tablet 1 mg PO TID mirtazapine 30 mg tablet 30 mg PO QHS oxycodone-acetaminophen 5-325 mg tablet 1 tab PO Q6H PRN PRN (Reason: pain) Referrals / Follow Up: Jennifer Villaseñor MD [Primary Care Provider] - Within 2 Weeks Disposition Disposition (needs filled in before D/C Order can be placed): [facility] (1) Alcohol withdrawal Qualifiers: Complication of substance-induced condition: with delirium Qualified Code(s):F10.931 - Alcohol use, unspecified with withdrawal delirium 12/25/23 1021 <Electronically signed by Papo Rodriguez DO> Cosigner Signature (if applicable): CC: Dr. Taylor Kaur MD; Dr. Janet Erazo MD; Dr. Jennifer Villaseñor MD ~ [facility] Work Phone: 1(769) 424-150805-09-2024 Progress note Author Papo Rodriguez [facility] December 24, 2023 9:19am Note Date/Time December 24, 2023 9:20am [facility] Medical Records Department [address] [place] [address] Progress Note - Hospitalist 12/24/23911 MR#: [id number] Acct: [id number] Name: JENNIFER YORK Rep #:[id number] : 1960 63 From: Papo Rodriguez DO PCP: Dr. Jennifer Villaseñor MD Status:ADM IN Location[place] [facility] [place] [facility]-2 Reason for Visit Reason for Visit: Diagnoses Alcohol use, unspecified with withdrawal delirium (12/19/23) Alcohol use, unspecified with withdrawal, unspecified (12/19/23) Subjective Subjective States that he feels well. Noted to have a rash today. He denies any pruritus. Objective Data Objective Data Vital Signs: Vital Signs Temp Pulse Resp BP Pulse Ox O2 Del Method 37.5 C H 89 18 108/80 95 Room Air 12/24/23 07:41 12/24/23 07:41 12/24/23 07:41 12/24/23 07:41 12/24/23 07:41 12/24/23 07:41 Oxygen Delivery Method Room Air Weight: 80.2 kg Body Mass Index (BMI) 23.3 Intake & Output: Intake and Output for Last 24 Hours 12/22/23 12/23/23 12/24/23 23:59 23:59 23:59 Intake Total 872.5 / 872.5 1750 / 1750 Output Total 100 / 100 Balance 872.5 / 872.5 1650 / 1650 Lab / Micro Data 12/22/23 06:20 12/23/23 06:10 Labs: Laboratory Results - last 24 hr 12/23/23 06:10: Sodium 134 L, Potassium 3.9, Chloride 101, Carbon Dioxide 26.0, Anion Gap 7, BUN 9, Creatinine 0.52 L, Estim Creat Clear Calc 162.68, Est GFR (MDRD) Af Amer 206, Est GFR (MDRD) Non-Af 171, BUN/Creatinine Ratio 17.3, Glucose 89, Calcium 9.0, Phosphorus 2.9, Magnesium 1.5 L, Total Bilirubin 2.20 H, AST 245 H, ALT 102 H, Alkaline Phosphatase 215 H, Total Protein 6.8, Albumin 2.5 L, Globulin 4.3 H, Albumin/Globulin Ratio 0.6 L Micro: Microbiology 12/19/23 00:13 Blood Culture (Wb) - Left Hand Blood Culture - Final No growth in 5 days. 12/19/23 00:36 Blood Culture (Wb) - Left Hand Blood Culture - Final No growth in 5 days. 12/18/23 23:02 Urine, Clean Catch Urine Culture - Final Mixed Gram Positive Organisms 12/19/23 01:59 Mucosa - Nasopharyngeal Respiratory Panel (PCR) - Final 12/19/23 00:00 Urine, Clean Catch Legionella Antigen - Final 12/19/23 00:00 Urine, Clean Catch Streptococcus pneumoniae Antigen (M - Final 12/18/23 23:40 Mucosa - Nose SARS-CoV-2, Influenza & RSV (PCR) - Final Physical Exam Const alert Constitutional Narrative: Up in bed. Listless but more alert than yesterday. Slow movements overall. Diffuse negative rash throughout. More prominent on the back. HEENT head/scalp atraumatic and moist oral mucous membranes Neuro moves all extremities Sensorium / Orientation: awake and alert Psych Psych Narrative: flat affect Assessment & Plan Assessment/Plan (1) Alcohol withdrawal: QUALIFIERS: Complication of substance-induced condition: with delirium Qualified Code(s): F10.931 - Alcohol use, unspecified with withdrawal delirium PLAN: Plan Acute metabolic encephalopathy * 2/2 acute alcohol withdrawal * treat the underlying withdrawal. * deescalate medications: phenobarbital, gabapentin,trazodone. Acute alcohol withdrawal * Last drink was 2 days prior to presentation. * Phenobarbital taper in addition to adjuvant medications including gabapentin, Bentyl, hydroxyzine and clonidine as needed for alcohol withdrawal symptoms. Patient was also placed on thiamine and folic acid * Addiction medicine to facilitate outpt treatment program. Hypokalemia, Hypomagnesemia, Hypophosphatemia * potassium still low despite replacement. * Recheck magnesium phosphorus levels. Hyponatremia * Likely secondary to beer potomania. Appears to be stable at this time. pancytopenia * suspect due to underlying liver disease * Anemia * Iron low at 32 but ferritin is very high at 3219. MCV consistent with macrocytosis. Folate low. On replacement. B12 pending. * check transferrin * Thrombocytopenia * unclear etiology * monitor hypotension * transient, resolved * dc losartan * check AM cortisol * Blood pressure dropped from 131 lying to 114 standing. Heart rate remained relatively the same actually went down upon standing. Hyperbilirubinemia * US shows hepatic steatosis w hepatomegaly * suspect due to underlying liver disease. At least due to alcohol, but with elevated ferritin, cannot rule out hemochromatosis. * follow up with GI as outpt. Debility * Waiting on placement acceptance. * Discussed with the patient that I am concerned that he may have a neurologic condition, more specifically multisystem atrophy, did recommend that he follow- up with a neurologist for further evaluation. Rash * Unclear etiology but I suspect its either a drug rash or a viral exanthem, I favor the former. * I discontinued much of his medications leaving only multivitamin, nicotine patch and topical nystatin and calamine. * Will check a viral panel though I feel it is less likely due to a viral exanthem. Chronic conditions * Hypertension- Blood pressure controlled. Continue with losartan., home medications continued with dose adjustment as needed * Lung nodule? Measuring 11 mm right base plan outpt followup with pulmonary. * Tobacco dependence- Counseled on cessation, offered nicotine patch for tobacco cravings DVT prophylaxis? Bilateral SCDs Charges/Coding Visit Charges Inpatient E&M: 20774 Subs Hosp L2 12/24/23918 <Electronically signed by Papo Rodriguez DO> Cosigner Signature (if applicable): CC: ~ Signed [facility] Work Phone: 1(940) 487-821805-08-2024 Progress note Author Papo Rodriguez [facility] December 23, 2023 2:53pm Note Date/Time December 23, 2023 7:50am [facility] Medical Records Department [address] [place] [address] Progress Note - Hospitalist 12/23/23 0747 MR#: [id number] Acct: [id number] Name: MATTEOJENNIFER PHELPS Rep #:[id number] : 1960 63 From: Papo Rodriguez DO PCP: Dr. Jennifer Villaseñor MD Status:ADM IN Location: [facility] FF243-0 Reason for Visit Reason for Visit: Diagnoses Alcohol use, unspecified with withdrawal delirium (12/19/23) Alcohol use, unspecified with withdrawal, unspecified (12/19/23) Subjective Subjective Denies complaints. He said he has fallen at home. Objective Data Objective Data Vital Signs: Vital Signs Temp Pulse Resp BP Pulse Ox O2 Del Method 37.2 C 90 18 131/91 H 95 Room Air 05/08/24 02:11 12/23/23 06:20 12/23/23 02:11 12/23/23 06:20 12/23/23 06:57 12/23/23 06:57 Oxygen Delivery Method Room Air Weight: 79.1 kg Body Mass Index (BMI) 23.0 Intake & Output: Intake and Output for Last 24 Hours 12/21/23 12/22/23 12/23/23 23:59 23:59 23:59 Intake Total 1290.8333 / 1290.8333 872.5 / 872.5 200 / 200 Output Total 650 / 650 100 / 100 Balance 640.8333 / 640.8333 872.5 / 872.5 100 / 100 Lab / Micro Data 12/22/23 06:20 12/23/23 06:10 Labs: Laboratory Results - last 24 hr 12/21/23 04:50: Transferrin 151 L 12/22/23 06:20: Sodium 135 L, Potassium 3.9, Chloride 103, Carbon Dioxide 25.0, Anion Gap 7, BUN 8, Creatinine 0.49 L, Estim Creat Clear Calc 174.38, Est GFR (MDRD) Af Amer 222, Est GFR (MDRD) Non-Af 184, BUN/Creatinine Ratio 16.4, Glucose 86, Calcium 8.7, Total Bilirubin 2.10 H, AST 223 H, ALT 87 H, Alkaline Phosphatase 195 H, Total Protein 6.6, Albumin 2.4 L, Globulin 4.2, Albumin/Globulin Ratio 0.6 L Micro: Microbiology 12/19/23 00:36 Blood Culture (Wb) - Left Hand Blood Culture - Preliminary No growth in 48 hours. 12/19/23 00:13 Blood Culture (Wb) - Left Hand Blood Culture - Preliminary No growth in 48 hours. 12/18/23 23:02 Urine, Clean Catch Urine Culture - Final Mixed Gram Positive Organisms 12/19/23 01:59 Mucosa - Nasopharyngeal Respiratory Panel (PCR) - Final 12/19/23 00:00 Urine, Clean Catch Legionella Antigen - Final 12/19/23 00:00 Urine, Clean Catch Streptococcus pneumoniae Antigen (M - Final 12/18/23 23:40 Mucosa - Nose SARS-CoV-2, Influenza & RSV (PCR) - Final Physical Exam Const alert and no apparent distress Constitutional Narrative: Awoke. Was very difficult to speak and had slow movements. Resp normal respiratory effort, no retractions and no use of accessory muscles Neuro Sensorium / Orientation: awake and alert Assessment & Plan Assessment/Plan (1) Alcohol withdrawal: QUALIFIERS: Complication of substance-induced condition: with delirium Qualified Code(s): F10.931 - Alcohol use, unspecified with withdrawal delirium PLAN: Plan Acute metabolic encephalopathy * 2/2 acute alcohol withdrawal * treat the underlying withdrawal. * deescalate medications: phenobarbital, gabapentin,trazodone. Acute alcohol withdrawal * Last drink was 2 days prior to presentation. * Phenobarbital taper in addition to adjuvant medications including gabapentin, Bentyl, hydroxyzine and clonidine as needed for alcohol withdrawal symptoms. Patient was also placed on thiamine and folic acid * Addiction medicine to facilitate outpt treatment program. Hypokalemia, Hypomagnesemia, Hypophosphatemia * potassium still low despite replacement. * Recheck magnesium phosphorus levels. Hyponatremia * Likely secondary to beer potomania. Appears to be stable at this time. pancytopenia * suspect due to underlying liver disease * Anemia * Iron low at 32 but ferritin is very high at 3219. MCV consistent with macrocytosis. Folate low. On replacement. B12 pending. * check transferrin * Thrombocytopenia * unclear etiology * monitor hypotension * transient, resolved * dc losartan * check AM cortisol * Blood pressure dropped from 131 lying to 114 standing. Heart rate remained relatively the same actually went down upon standing. Hyperbilirubinemia * US shows hepatic steatosis w hepatomegaly * suspect due to underlying liver disease. At least due to alcohol, but with el evated ferritin, cannot rule out hemochromatosis. * follow up with GI as outpt. Debility * Waiting on placement acceptance. * Discussed with the patient that I am concerned that he may have a neurologic condition, more specifically multisystem atrophy, did recommend that he follow- up with a neurologist for further evaluation. Chronic conditions * Hypertension- Blood pressure controlled. Continue with losartan., home medications continued with dose adjustment as needed * Lung nodule? Measuring 11 mm right base plan outpt followup with pulmonary. * Tobacco dependence- Counseled on cessation, offered nicotine patch for tobacco cravings DVT prophylaxis? Bilateral SCDs Charges/Coding Visit Charges Inpatient E&M: 17559 Subs Hosp L2 12/23/23 1094 <Electronically signed by Papo Rodriguez DO> Cosigner Signature (if applicable): CC: ~ Signed [facility] Work Phone: 1(978) 833-356205-07-2024 Progress note Author Papo Rodriguez [facility] December 22, 2023 3:14pm Note Date/Time December 22, 2023 7:59am [facility] Medical Records Department [address] [place] [address] Progress Note - Hospitalist 12/22/23 0752 MR#: [id number] Acct: [id number] Name: JENNIFER YORK Rep #:[id number] : 1960 63 From: Papo Rodriguez DO PCP: Dr. Jennifer Villaseñor MD Status:ADM IN [id number] Reason for Visit Reason for Visit: Diagnoses Alcohol use, unspecified with withdrawal delirium (12/19/23) Alcohol use, unspecified with withdrawal, unspecified (12/19/23) Subjective Subjective Denies complaints. Later, noted by nrsg to have a SBP of 60. Improved after IVF. Objective Data Objective Data Vital Signs: Vital Signs Temp Pulse Resp BP Pulse Ox O2 Del Method 37.1 C 93 18 126/82 H 95 Room Air 12/22/23 04:18 12/22/23 04:18 12/22/23 04:18 12/22/23 04:18 12/22/23 07:50 12/22/23 07:50 Oxygen Delivery Method Room Air Weight: 81.9 kg Body Mass Index (BMI) 23.8 Intake & Output: Intake and Output for Last 24 Hours 12/20/23 12/21/23 12/22/23 23:59 23:59 23:59 Intake Total 350 / 350 1290.8333 / 1290.8333 Output Total 1650 / 1650 650 / 650 Balance -1300 / -7093 818.7773 / 640.8333 Lab / Micro Data 12/22/23 06:20 12/22/23 06:20 Labs: Laboratory Results - last 24 hr 12/19/23 05:53: Vitamin B12 851 12/21/23 04:50: Phosphorus 1.1 L*, Magnesium 1.4 L 12/22/23 06:20: WBC 3.3 L, RBC 2.85 L, Hgb 9.8 L, Hct 28.8 L, MCV 101.1 H, MCH 34.4 H, MCHC 34.0, RDW Std Deviation 57.1 H, RDW Coeff of Saloni 15.5 H, Plt Count 111 L, MPV 11.5, Immature Gran % (Auto) 0.600, Neut % (Auto) 60.4, Lymph % (Auto) 25.2, [place] % (Auto) 12.0 H, Eos % (Auto) 0.9, Baso % (Auto) 0.9, AbsoluteNeuts (auto) 2.0, Absolute Lymphs (auto) 0.84, Nucleated RBC % 0 Micro: Microbiology 12/19/23 00:36 Blood Culture (Wb) - Left Hand Blood Culture - Preliminary No growth in 48 hours. 12/19/23 00:13 Blood Culture (Wb) - Left Hand Blood Culture - Preliminary No growth in 48 hours. 12/18/23 23:02 Urine, Clean Catch Urine Culture - Final Mixed Gram Positive Organisms 12/19/23 01:59 Mucosa - Nasopharyngeal Respiratory Panel (PCR) - Final 12/19/23 00:00 Urine, Clean Catch Legionella Antigen - Final 12/19/23 00:00 Urine, Clean Catch Streptococcus pneumoniae Antigen (M - Final 12/18/23 23:40 Mucosa - Nose SARS-CoV-2, Influenza & RSV (PCR) - Final Physical Exam Const alert and no apparent distress Constitutional Narrative: slightly groggy. HEENT head/scalp atraumatic and moist oral mucous membranes Resp normal respiratory effort and no retractions Extremity normal to inspection Neuro Sensorium / Orientation: awake and alert Psych Psych Narrative: flat affect. Assessment & Plan Assessment/Plan (1) Alcohol withdrawal: QUALIFIERS: Complication of substance-induced condition: with delirium Qualified Code(s): F10.931 - Alcohol use, unspecified with withdrawal delirium PLAN: Plan Acute metabolic encephalopathy * 2/2 acute alcohol withdrawal * treat the underlying withdrawal. * deescalate medications: phenobarbital, gabapentin,trazodone. Acute alcohol withdrawal * Last drink was 2 days prior to presentation. * Phenobarbital taper in addition to adjuvant medications including gabapentin, Bentyl, hydroxyzine and clonidine as needed for alcohol withdrawal symptoms. Patient was also placed on thiamine and folic acid * Addiction medicine to facilitate outpt treatment program. Hypokalemia, Hypomagnesemia, Hypophosphatemia * potassium still low despite replacement. * Recheck magnesium phosphorus levels. Hyponatremia * Likely secondary to beer potomania. Appears to be stable at this time. pancytopenia * suspect due to underlying liver disease * Anemia * Iron low at 32 but ferritin is very high at 3219. MCV consistent with macrocytosis. Folate low. On replacement. B12 pending. * check transferrin * Thrombocytopenia * unclear etiology * monitor hypotension * transient, resolved * dc losartan * check AM cortisol Hyperbilirubinemia * US shows hepatic steatosis w hepatomegaly * suspect due to underlying liver disease. At least due to alcohol, but with elevated ferritin, cannot rule out hemochromatosis. * follow up with GI as outpt. Chronic conditions * Hypertension- Blood pressure controlled. Continue with losartan., home medications continued with dose adjustment as needed * Lung nodule? Measuring 11 mm right base plan outpt followup with pulmonary. * Tobacco dependence- Counseled on cessation, offered nicotine patch for tobacco cravings DVT prophylaxis? Bilateral SCDs Charges/Coding Visit Charges Inpatient E&M: 34203 Subs Hosp L2 12/22/23 2924 <Electronically signed by Papo Rodriguez DO> Cosigner Signature (if applicable): CC: ~ Signed [facility] Work Phone: 1(722) 897-131605-06-2024 Progress note Author Papo Rodriguez [facility] December 21, 2023 12:43pm Note Date/Time December 21, 2023 7:49am [facility] Medical Records Department [address] [place] [address] Progress Note - Hospitalist 12/21/23 0744 MR#: [id number] Acct: [id number] Name: MATTEOJENNIFER PHELPS Rep #:[id number] : 1960 63 From: Papo Rodriguez DO PCP: Dr. Jennifer Villaseñor MD Status:ADM IN Location: [facility] [id number] Reason for Visit Reason for Visit: Diagnoses Alcohol use, unspecified with withdrawal delirium (12/19/23) Alcohol use, unspecified with withdrawal, unspecified (12/19/23) Subjective Subjective Feeling ok. Objective Data Objective Data Vital Signs: Vital Signs Temp Pulse Resp BP Pulse Ox O2 Del Method 36.8 C 88 18 146/107 H 97 Room Air 12/21/23 04:02 12/21/23 04:02 12/21/23 04:02 12/21/23 04:02 12/21/23 04:02 12/21/23 04:02 Oxygen Delivery Method Room Air Weight: 80.5 kg Body Mass Index (BMI) 23.4 Intake & Output: Intake and Output for Last 24 Hours 12/19/23 12/20/23 12/21/23 23:59 23:59 23:59 Intake Total 3200 / 3400 350 / 350 300 / 300 Output Total 250 / 400 1650 / 1650 400 / 400 Balance 2950 / 3000 -1300 / -1300 -100 / -100 Lab / Micro Data 12/21/23 04:50 12/21/23 04:50 Labs: Laboratory Results - last 24 hr 12/20/23 05:18: Sodium 135 L, Potassium 3.2 L, Chloride 100, Carbon Dioxide 28.0, Anion Gap 7, BUN 8, Creatinine 0.42 L, Estim Creat Clear Calc 194.28, Est GFR (MDRD) Af Amer 266, Est GFR (MDRD) Non-Af 220, BUN/Creatinine Ratio 19.2, Glucose 98, Calcium 8.6, Phosphorus 1.1 L*, Magnesium 1.7, Total Bilirubin 2.20 H, Direct Bilirubin 1.58 H, AST 234 H, ALT 73 H, Alkaline Phosphatase 167 H, Total Protein 6.5, Albumin 2.5 L, Globulin 4.0 12/21/23 04:50: WBC 2.8 L, RBC 2.86 L, Hgb 9.8 L, Hct 28.8 L, MCV 100.7 H, MCH 34.3 H, MCHC 34.0, RDW Std Deviation 54.9 H, RDW Coeff of Saloni 14.8 H, Plt Count 91 L, MPV 11.8, Immature Gran % (Auto) 1.100 H, Neut % (Auto) 62.9, Lymph % (Auto) 23.2, [place] % (Auto) 10.7 H, Eos % (Auto) 1.4, Baso % (Auto) 0.7, AbsoluteNeuts (auto) 1.8 L, Absolute Lymphs (auto) 0.65 L, Nucleated RBC % 0, Sodium 135L, Potassium 3.3 L, Chloride 101, Carbon Dioxide 28.0, Anion Gap 6, BUN 8, Creatinine 0.43 L, Estim Creat Clear Calc 189.76, Est GFR (MDRD) Af Amer 255, Est GFR (MDRD) Non-Af 211, BUN/Creatinine Ratio 18.5, Glucose 96, Calcium 8.8 Micro: Microbiology 12/19/23 01:59 Mucosa - Nasopharyngeal Respiratory Panel (PCR) - Final 12/19/23 00:00 Urine, Clean Catch Legionella Antigen - Final 12/19/23 00:00 Urine, Clean Catch Streptococcus pneumoniae Antigen (M - Final 12/18/23 23:40 Mucosa - Nose SARS-CoV-2, Influenza & RSV (PCR) - Final Physical Exam Const alert Constitutional Narrative: subtle shaking in UE. Resp normal respiratory effort and no retractions GI Auscultation: hyperactive bowel sounds and hypoactive bowel sounds Extremity normal to inspection and full ROM Psych affect normal Assessment & Plan Assessment/Plan (1) Alcohol withdrawal: QUALIFIERS: Complication of substance-induced condition: with delirium Qualified Code(s): F10.931 - Alcohol use, unspecified with withdrawal delirium PLAN: Plan Acute metabolic encephalopathy * 2/2 acute alcohol withdrawal * treat the underlying withdrawal. Acute alcohol withdrawal * Last drink was 2 days prior to presentation. * Phenobarbital taper in addition to adjuvant medications including gabapentin, Bentyl, hydroxyzine and clonidine as needed for alcohol withdrawal symptoms. Patient was also placed on thiamine and folic acid * Addiction medicine to facilitate outpt treatment program. Hypokalemia, Hypomagnesemia, Hypophosphatemia * potassium still low despite replacement. * Recheck magnesium phosphorus levels. Hyponatremia * Likely secondary to beer potomania. Appears to be stable at this time. Anemia * Iron low at 32 but ferritin is very high at 3219. MCV consistent with macrocytosis. Folate low. On replacement. B12 pending. * check transferrin Thrombocytopenia * unclear etiology * monitor Hyperbilirubinemia * US shows hepatic steatosis w hepatomegaly Chronic conditions * Hypertension- Blood pressure controlled. Continue with losartan., home medications continued with dose adjustment as needed * Lung nodule? Measuring 11 mm right base plan is for patient to follow-up with outpatient imaging studies by PCP * Tobacco dependence- Counseled on cessation, offered nicotine patch for tobacco cravings DVT prophylaxis? Bilateral SCDs Charges/Coding Visit Charges Inpatient E&M: 34589 Subs Hosp L2 12/21/23 6657 <Electronically signed by Papo Rodriguez DO> Cosigner Signature (if applicable): CC: ~ Signed [facility] Work Phone: 1(490) 784-532005-05-2024 Progress note Author Janet Erazo [facility] December 20, 2023 9:13am Note Date/Time December 20, 2023 7:36am [facility] Medical Records Department [address] [place] [address] Progress Note - Hospitalist 12/20/23 0736 MR#: [id number] Acct: [id number] Name: JENNIFER YORK Rep #:[id number] : 1960 63 From: Janet Erazo MD PCP: Dr. Jennifer Villaseñor MD Status:ADM IN Location: [facility] UC123-1 Reason for Visit Reason for Visit: Diagnoses Alcohol use, unspecified with withdrawal, unspecified (12/19/23) Subjective Subjective Patient seen. Per nursing staff had a relatively uneventful night. Hemoglobin remains low at 9.9,. Also has hypokalemia as well as hypophosphatemia Objective Data Objective Data Vital Signs: Vital Signs Temp Pulse Resp BP Pulse Ox O2 Del Method 99.5 F H 85 18 123/88 H 97 Room Air 12/20/23 05:14 12/20/23 05:14 12/20/23 05:14 12/20/23 05:14 12/20/23 05:14 12/20/23 05:14 Oxygen Delivery Method Room Air Weight: 76.3 kg Body Mass Index (BMI) 22.1 Intake & Output: Intake and Output for Last 24 Hours 12/18/23 12/19/23 12/20/23 23:59 23:59 23:59 Intake Total 3200 / 3400 350 / 350 Output Total 250 / 400 600 / 600 Balance 2950 / 3000 -250 / -250 Lab / Micro Data 12/20/23 05:18 12/20/23 05:18 Labs: Laboratory Results - last 24 hr 12/19/23 05:53: Hemoglobin A1c 4.9, Iron 32 L, TIBC 192 L, Iron Saturation 16.7,Ferritin 3219 H 12/20/23 05:18: WBC 3.5 L, RBC 2.83 L, Hgb 9.9 L, Hct 28.9 L, MCV 102.1 H, MCH 35.0 H, MCHC 34.3, RDW Std Deviation 55.6 H, RDW Coeff of Saloni 14.7 H, Plt Count 78 L, MPV 11.7, Immature Gran % (Auto) 0.900, Neut % (Auto) 67.4, Lymph % (Auto)19.4, [place] % (Auto) 11.1 H, Eos % (Auto) 0.6, Baso % (Auto) 0.6, Absolute Neuts (auto) 2.4, Absolute Lymphs (auto) 0.68 L, Nucleated RBC % 0 Micro: Microbiology 12/19/23 01:59 Mucosa - Nasopharyngeal Respiratory Panel (PCR) - Final 12/19/23 00:00 Urine, Clean Catch Legionella Antigen - Final 12/19/23 00:00 Urine, Clean Catch Streptococcus pneumoniae Antigen (M - Final 12/18/23 23:40 Mucosa - Nose SARS-CoV-2, Influenza & RSV (PCR) - Final Radiography Diagnostic Testing: Radiology Impression Liver Ultrasound 12/19/23 05:55 IMPRESSION: Hepatic steatosis with hepatomegaly. Mild sludge in the gallbladder without sonographic evidence of cholelithiasis. Electronically Signed: Ann Marie Sterling MD at 11:26 EDT , Physical Exam Narrative GENERAL: cooperative HEENT: Atraumatic; normocephalic EYES; Anicteric, Normal Conjunctiva NECK; supple, normal thyroid, RESPIRATORY: Diminished to auscultation CARDIOVASCULAR: Regular S1 S2, GI: soft, normoactive bowel sounds, : No Renal angle tenderness; EXTREMITIES: No edema, no clubbing, MUSCULOSKELETAL: no muscle wasting NEURO: Awake; no lateralizing signs. SKIN: No Rash PSYCH; Flat affect Assessment & Plan Assessment/Plan (1) Alcohol withdrawal: QUALIFIERS: Complication of substance-induced condition: with delirium Qualified Code(s): F10.931 - Alcohol use, unspecified with withdrawal delirium PLAN: Plan Patient is a 63-year-old gentleman with history of chronic alcohol dependence admitted with with confusion. Diagnosis of acute alcohol withdrawal was made admitted to regular nursing floor for further management 1. Acute encephalopathy ? Secondary to toxic encephalopathy from acute alcohol withdrawal admitted to regular nursing floor for treatment of underlying condition 2. Acute alcohol withdrawal - Patient has been admitted for treatment with phenobarb taper in addition to adjuvant medications including gabapentin, Bentyl, hydroxyzine and clonidine as needed for alcohol withdrawal symptoms. Patient was also placed on thiamine andfolic acidConsultation [facility] ? 12/20/2023 patient has tolerated phenobarb taper well so far 3. Hypokalemia ? Corrected per protocol ? 12/20/2023; potassium remains low at 3.2 additional replacement given repeat labs ordered in the 4. Hyponatremia ? Secondary to beer potomania do expect improvement patient is on fluids with subsequent monitoring of electrolytes ordered ? 12/20/2023; sodium levels up to 135 5. Hypertension - Blood pressure controlled, home medications continued with dose adjustment as needed 6. Lung nodule ? Measuring 11 mm right base plan is for patient to follow-up with outpatient imaging studies by PCP 7. Anemia - Secondary to chronic disorder. Red cell indicis consistent with microcytosis possibly related to his underlying chronic alcohol use. Ordered iron studies aswell as B12. Monitoring H&H and transfuse if patient becomes symptomatic or hemoglobin falls below 7 8. Thrombocytopenia ? Secondary to chronic alcohol dependence 9. Tobacco dependence - Counseled on cessation, offered nicotine patch for tobacco cravings 10. DVT prophylaxis ? Bilateral SCDs 11. Hypophosphatemia ? Corrected per protocol 12. Hypomagnesemia ? Corrected per protocol Time spent in the patient's overall evaluation,decision-making process, review of diagnostic data, adjustment of management, discussion with other providers, nursing nursing and ancillary staff involved in patient's care documentation, 52 Minutes Charges/Coding Visit Charges Inpatient E&M: 04254 Subs Hosp L3 12/20/23 0913 <Electronically signed by Janet Erazo MD> Cosigner Signature (if applicable): CC: ~ Signed [facility] Work Phone: 1(651) 313-311105-04-2024 Progress note Author Janet Erazo [facility] December 19, 2023 9:51am Note Date/Time December 19, 2023 7:23am [facility] Medical Records Department [address] [place] [id number] Progress Note - Hospitalist 12/19/23 0718 MR#: [id number] Acct: [id number] Name: JENNIFER YORK Rep #:[id number] : 1960 63 From: Janet Erazo MD PCP: Dr. Jennifer Villaseñor MD Status:ADM IN Location: KY3 [id number] Reason for Visit Reason for Visit: Diagnoses Alcohol use, unspecified with withdrawal, unspecified (12/19/23) Subjective Subjective Patient is a 63-year-old gentleman with history of chronic alcohol dependence admitted with with confusion. Diagnosis of acute alcohol withdrawal was made admitted to regular nursing floor for further management Objective Data Objective Data Vital Signs: Vital Signs Temp Pulse Resp BP Pulse Ox O2 Del Method 98.3 F 89 17 127/84 H 97 Room Air 12/19/23 01:56 12/19/23 01:56 12/19/23 01:56 12/19/23 01:56 12/19/23 01:56 12/19/23 01:56 Oxygen Delivery Method Room Air Weight: 76.9 kg Body Mass Index (BMI) 22.4 Intake & Output: Intake and Output for Last 24 Hours 12/17/23 12/18/23 12/19/23 23:59 23:59 23:59 Intake Total 2200 / 2200 Output Total 250 / 250 Balance 1950 / 1950 Lab / Micro Data 12/19/23 05:53 12/19/23 05:53 Labs: Laboratory Results - last 24 hr 12/18/23 22:44: WBC 4.6, RBC 3.04 L, Hgb 10.3 L, Hct 30.9 L, MCV 101.6 H, MCH 33.9 H, MCHC 33.3, RDW Std Deviation 55.4 H, RDW Coeff of Saloni 14.8 H, Plt Count TNP, MPV 11.6, Immature Gran % (Auto) 0.900, Neut % (Auto) 76.9 H, Lymph % (Auto) 9.5 L, [place] % (Auto) 12.5 H, Eos % (Auto) 0.0, Baso % (Auto) 0.2, Absolute Neuts (auto) 3.6, Absolute Lymphs (auto) 0.44 L, Nucleated RBC % 0, Differential Comment SEE COMMENT, Platelet Estimate ADEQUATE, RBC Morphology N CHROM, Hypochromasia 1+, Anisocytosis 1+, Macrocytosis 1+, Ovalocytes RARE, Sodium 134 L, Potassium 3.4 L, Chloride 93 L, Carbon Dioxide 21.0, Anion Gap 20 H, BUN 12, Creatinine 1.01, Estim Creat Clear Calc 84.53, Est GFR (MDRD) Af Amer96, Est GFR (MDRD) Non-Af 79, BUN/Creatinine Ratio 11.9, Glucose 131 H, Lactic Acid 1.7, Calcium 8.8, Phosphorus 3.0, Magnesium 1.2 L, Total Bilirubin 2.70 H, Direct Bilirubin 1.85 H, AST 295 H, ALT 93 H, Alkaline Phosphatase 198 H, Troponin I High Sens 18, Total Protein 7.7, Albumin 3.0 L, Globulin 4.7 H, Lipase 73, Procalcitonin 0.27 H, Ethyl Alcohol 4.0, Acetone Level SMALL H 12/18/23 23:02: Urine Color Scarlet, Urine Clarity Clear, Urine pH 6.0, Ur Specific [place] 1.020, Urine Protein 500 H, Urine Glucose (UA) Normal, Urine Ketones 150 A*, Urine Occult Blood 25 H, Urine Nitrite Positive H, Urine Bilirubin 6 H, Urine Urobilinogen 12 H, Ur Leukocyte Esterase 25 H, Urine RBC 0 SEEN, Urine WBC 0-5 SEEN, Ur Squamous Epith Cells 0 SEEN, Urine Bacteria 0 SEEN,Hyaline Casts 10-25 SEEN, Urine Mucus 0 SEEN, Urine Opiates Screen NEGATIVE, Urine Methadone Screen NEGATIVE, Ur Barbiturates Screen NEGATIVE, Ur Phencyclidine Scrn NEGATIVE, Ur Amphetamines Screen NEGATIVE, MDMA (Ecstasy) Screen NEGATIVE, U Benzodiazepines Scrn NEGATIVE, Urine Cocaine Screen NEGATIVE,U Cannabinoids Screen NEGATIVE, Ur Drug Screen Comment 12/19/23 05:53: WBC 3.6 L, RBC 2.79 L, Hgb 9.5 L, Hct 28.3 L, MCV 101.4 H, MCH 34.1 H, MCHC 33.6, RDW Std Deviation 55.2 H, RDW Coeff of Saloni 14.6, Plt Count 74L, MPV 11.4, Immature Gran % (Auto) 1.400 H, Neut % (Auto) 72.1 H, Lymph % (Auto) 17.9 L, [place] % (Auto) 8.0, Eos % (Auto) 0.0, Baso % (Auto) 0.6, Absolute Neuts (auto) 2.6, Absolute Lymphs (auto) 0.65 L, Nucleated RBC % 0, Platelet Estimate MOD DEC, Target Cells 2+, Stomatocytes 1+, Sodium 134 L, Potassium 3.3 L, Chloride 99, Carbon Dioxide 24.0, Anion Gap 11, BUN 8, Creatinine 0.67 L, Estim Creat Clear Calc 122.75, Est GFR (MDRD) Af Amer 154, Est GFR (MDRD) Non-Af127, BUN/Creatinine Ratio 11.9, Glucose 96, Calcium 8.6, Magnesium 2.3, Total Bilirubin 2.20 H, AST 223 H, ALT 72 H, Alkaline Phosphatase 158 H, Total Protein6.3 L, Albumin 2.5 L, Globulin 3.8, Albumin/Globulin Ratio 0.7 L, Folate 2.60 L Micro: Microbiology 12/19/23 01:59 Mucosa - Nasopharyngeal Respiratory Panel (PCR) - Final 12/19/23 00:00 Urine, Clean Catch Legionella Antigen - Final 12/19/23 00:00 Urine, Clean Catch Streptococcus pneumoniae Antigen (M - Final 12/18/23 23:40 Mucosa - Nose SARS-CoV-2, Influenza & RSV (PCR) - Final Radiography Diagnostic Testing: Radiology Impression Brain CT 12/18/23 22:36 IMPRESSION: Age-related changes as above, without evidence of acute intracranial hemorrhage in this noncontrast head CT. Sinus disease. Electronically Signed: Neri Anderson MD at 23:39 EDT , Chest X-Ray 12/18/23 22:45 IMPRESSION: 11 mm right lung base nodular opacity, to include pulmonary nodule. Recommend comparison with previous imaging to document long-term stability versus follow-up evaluation as per Fleischner guidelines as neoplastic process is not excluded. Chest with no acute disease. Electronically Signed: Neri Anderson MD at 23:36 EDT , Physical Exam Narrative GENERAL: cooperative HEENT: Atraumatic; normocephalic EYES; Anicteric, Normal Conjunctiva NECK; supple, normal thyroid, RESPIRATORY: Diminished to auscultation CARDIOVASCULAR: Regular S1 S2, GI: soft, normoactive bowel sounds, : No Renal angle tenderness; EXTREMITIES: No edema, no clubbing, MUSCULOSKELETAL: no muscle wasting NEURO: Awake; no lateralizing signs. SKIN: No Rash PSYCH; Flat affect Assessment & Plan Assessment/Plan (1) Alcohol withdrawal: PLAN: Plan Patient is a 63-year-old gentleman with history of chronic alcohol dependence admitted with with confusion. Diagnosis of acute alcohol withdrawal was made admitted to regular nursing floor for further management 1. Acute encephalopathy ? Secondary to toxic encephalopathy from acute alcohol withdrawal admitted to regular nursing floor for treatment of underlying condition 2. Acute alcohol withdrawal - Patient has been admitted for treatment with phenobarb taper in addition to adjuvant medications including gabapentin, Bentyl, hydroxyzine and clonidine as needed for alcohol withdrawal symptoms. Patient was also placed on thiamine andfolic acidConsultation placed to [facility] counseling services 3. Hypokalemia ? Corrected per protocol 4. Hyponatremia ? Secondary to beer potomania do expect improvement patient is on fluids with subsequent monitoring of electrolytes ordered 5. Hypertension - Blood pressure controlled, home medications continued with dose adjustment as needed 6. Lung nodule ? Measuring 11 mm right base plan is for patient to follow-up with outpatient imaging studies by PCP 7. Anemia - Secondary to chronic disorder. Red cell indicis consistent with microcytosis possibly related to his underlying chronic alcohol use. Ordered iron studies aswell as B12. Monitoring H&H and transfuse if patient becomes symptomatic or hemoglobin falls below 7 8. Thrombocytopenia ? Secondary to chronic alcohol dependence 9. Tobacco dependence - Counseled on cessation, offered nicotine patch for tobacco cravings 10. DVT prophylaxis ? Bilateral SCDs Time spent in the patient's overall evaluation,decision-making process, review of diagnostic data, adjustment of management, discussion with other providers, nursing nursing and ancillary staff involved in patient's care documentation, 50 Minutes Charges/Coding Visit Charges Inpatient E&M: 82567 Subs Hosp L3 12/19/23 0957 <Electronically signed by Janet Erazo MD> Cosigner Signature (if applicable): CC: ~ Signed [facility] Work Phone: 1(437) 152-160505-04-2024 History and physical note Author Taylor White [facility] December 19, 2023 1:12am Note Date/Time December 19, 2023 12:47a m [facility] Medical Records Department [address] [place] [address] H&P Exam - Hospitalist 12/19/23 0043 MR#: [id number] Acct: [id number] Name: JENNIFER YORK Rep #:[id number] : 1960 63 From: Taylor Kaur MD PCP: Dr. Jennifer Villaseñor MD Status:REG ER Location: ED HPI - General General Date of Admission: 12/19/23 Date of Service: 12/19/23 Chief Complaint: Confusion. HPI Narrative The patient is a 63 y/o M w/ PMHx: Chronic thrombocytopenia, HTN, Tobacco use, EtOH abuse, Anxiety and Depression, Chronic neck pain with DDD who presents to the [facility] ED on 12/18/23 noted to have been in a local drive-through with staff becoming concerned secondary to notable confusion prompting EMS call and transition to the hospital for ED evaluation. From reported information upon EDarrival patient is currently going through a divorce. Although patient is not the best historian upon arrival he was noted to be mildly tachycardic with a fever, normal blood pressure and appropriate oxygenation on room air. Followingwithdrawal treatment in the ED patient eventual able to note that last EtOH intake of vodka was 2 days prior. He was attempting to stop. Workup in the ED included T1 100.2, heart rate 112, BP 126/99, respiratory rate 17, 98% on room air--> T98.4, heart rate 89, BP 118/86, respiratory rate 18, 96% on room air following medications as noted below, CBC with WBC 4.6, hemoglobin 10.3, MCV 101.6, platelet 83 with lymphopenia, CMP with sodium 134, potassium 3.4, chloride 93, anion gap 20, glucose 131, T. bili 2.70, D bili 1.85, AST/ALT 295/93, alk phos 198, lipase 73, lactic acid 1.7, troponin 18, urinalysis with urine protein 500, urine ketones 150, occult blood 25, positive nitrate, urine bilirubin 6, urine urobilinogen 12, leukocyte Estrace 25 with no marked urine bacteria or urine WBCs, ethyl alcohol 4, urine drug screen negative, chest x-raywith 11 mm right lung base nodular opacity with chest otherwise with no acute cardiopulmonary findings, CT brain with age-related changes with no acute evidence of intracranial finding with chronic sinus disease, EKG with sinus tachycardia with no acute evidence of ischemia. In the ED patient ministered 1 L normal saline, Ativan 2 mg IV x 1, phenobarbital 97.2 mg p.o. x 1, Zofran 4 mgIV x 1, Tylenol 650 mg p.o. x 1. Patient also administered rocephin 1 gm IV x 1 for possible UTI coverage. PFSH Medical History Anxiety and depression Chronic neck pain ETOH abuse Thrombocytopenia Tobacco use Home Medications losartan 50 mg tablet 1 tab PO DAILY 11/21/19 [History Last Taken Unknown] Allergy/AdvReac Type Severity Reaction Status Date / Time No Known Allergies Allergy Verified 12/18/23 22:18 other (Both parents are living he notes. He notes they take medications but he is unsure of medical diagnosis history.) Surgical History No history of previous surgery Social History household members: family Smoking Status: Current every day smoker tobacco type: cigarettes Smoking packsper day: 0.5 Smoking cigarettes per day: 10.0 alcohol intake: current alcohol intake frequency: 3 or more drinks per day Alcohol type: hard liquor details: Usually drinks daily, vodka, unclear exact amount, last drink 2 days prior. substance use type: does not use ROS ROS Narrative Patient becoming more alert but remains confused, not completely oriented, answering very slowly and will trial off during responses. Review of Systems ROS Unobtainable: due to encephalopathy Vital Signs Vital Signs Vital Signs: 12/18/23 22:03 12/19/23 00:03 Temperature 100.2 F H 98.4 F Temperature Source Temporal Temporal Pulse Rate 112 H 89 Respiratory Rate 17 18 Blood Pressure 126/99 H 118/86 H Blood Pressure Mean 108 96 Pulse Ox 98 96 Oxygen Delivery Method Room Air Room Air Weight Weight: 176 lb Body Mass Index (BMI) 23.2 Physical Exam Narrative Physical Examination: General: Awakens to stimuli but very slow responses, fatigued, not markedly alert, oriented eventually to place, self, given correct year but wrong month, lethargic, following some commands but not all, laying in the ED bed, disheveledappearance. Skin: Normal color, normal turgor, no icterus, no cyanosis except for staged ecchymoses, abrasions, very disheveled appearance. HEENT: AT/NC, EOMI, PERRLA, dry MM, no carotid bruits or JVD noted. Lungs: Diminished, greater bases, appropriate effort, no evidence of any distress, no rales, ronchi or wheezing. Heart: Improved, regular rate and rhythm; no gallop, rub audible. Abdomen: Soft, NTTP, ND, hyperactive BS, no markedly appreciated HSM. Extremities: No cyanosis, no clubbing, no marked peripheral edema. Neurological: Awakens to stimuli but very slow responses, fatigued, not markedlyalert, oriented eventually to place, self, given correct year but wrong month, lethargic, following some commands but not all, laying in the ED bed, disheveledappearance, cognitive function improving since ED arrival but still not baselineintact; pupils equally reactive to light and accommodation, cranial nerves grossly normal, moving all 4 extremities, no focal deficits, strength moderatelyto severely globally decreased. Psychiatric: Affect appears fatigued, lethargic, no acute evidence of depressiveor anxiety feelings but does have underlying history. Results Lab / Micro Data 12/18/23 22:44 12/18/23 22:44 Labs: Laboratory Results - last 24 hr 12/18/23 22:44: WBC 4.6, RBC 3.04 L, Hgb 10.3 L, Hct 30.9 L, MCV 101.6 H, MCH 33.9 H, MCHC 33.3, RDW Std Deviation 55.4 H, RDW Coeff of Saloni 14.8 H, Plt Count TNP, MPV 11.6, Immature Gran % (Auto) 0.900, Neut % (Auto) 76.9 H, Lymph % (Auto) 9.5 L, [place] % (Auto) 12.5 H, Eos % (Auto) 0.0, Baso % (Auto) 0.2, Absolute Neuts (auto) 3.6, Absolute Lymphs (auto) 0.44 L, Nucleated RBC % 0, Differential Comment SEE COMMENT, Platelet Estimate ADEQUATE, RBC Morphology N CHROM, Hypochromasia 1+, Anisocytosis 1+, Macrocytosis 1+, Ovalocytes RARE, Sodium 134 L, Potassium 3.4 L, Chloride 93 L, Carbon Dioxide 21.0, Anion Gap 20 H, BUN 12, Creatinine 1.01, Estim Creat Clear Calc 84.53, Est GFR (MDRD) Af Amer96, Est GFR (MDRD) Non-Af 79, BUN/Creatinine Ratio 11.9, Glucose 131 H, Lactic Acid 1.7, Calcium 8.8, Total Bilirubin 2.70 H, Direct Bilirubin 1.85 H, AST 295 H, ALT 93 H, Alkaline Phosphatase 198 H, Troponin I High Sens 18, Total Protein 7.7, Albumin 3.0 L, Globulin 4.7 H, Lipase 73, Ethyl Alcohol 4.0 12/18/23 23:02: Urine Color Scarlet, Urine Clarity Clear, Urine pH 6.0, Ur Specific [place] 1.020, Urine Protein 500 H, Urine Glucose (UA) Normal, Urine Ketones 150 A*, Urine Occult Blood 25 H, Urine Nitrite Positive H, Urine Bilirubin 6 H, Urine Urobilinogen 12 H, Ur Leukocyte Esterase 25 H, Urine RBC 0 SEEN, Urine WBC 0-5 SEEN, Ur Squamous Epith Cells 0 SEEN, Urine Bacteria 0 SEEN,Hyaline Casts 10-25 SEEN, Urine Mucus 0 SEEN, Urine Opiates Screen NEGATIVE, Urine Methadone Screen NEGATIVE, Ur Barbiturates Screen NEGATIVE, Ur Phencyclidine Scrn NEGATIVE, Ur Amphetamines Screen NEGATIVE, MDMA (Ecstasy) Screen NEGATIVE, U Benzodiazepines Scrn NEGATIVE, Urine Cocaine Screen NEGATIVE,U Cannabinoids Screen NEGATIVE, Ur Drug Screen Comment Micro: Microbiology 12/18/23 23:40 Mucosa - Nose SARS-CoV-2, Influenza & RSV (PCR) - Final Imaging Radiology Impression Brain CT 12/18/23 22:36 IMPRESSION: Age-related changes as above, without evidence of acute intracranial hemorrhage in this noncontrast head CT. Sinus disease. Electronically Signed: Neri Anderson MD at 23:39 EDT , Chest X-Ray 12/18/23 22:45 IMPRESSION: 11 mm right lung base nodular opacity, to include pulmonary nodule. Recommend comparison with previous imaging to document long-term stability versus follow-up evaluation as per Fleischner guidelines as neoplastic process is not excluded. Chest with no acute disease. Electronically Signed: Neri Anderson MD at 23:36 EDT , Assessment & Plan Assessment/Plan (1) Alcohol withdrawal: PLAN: Plan The patient is a 63 y/o M w/ PMHx: Chronic thrombocytopenia, HTN, Tobacco use, EtOH abuse, Anxiety and Depression, Chronic neck pain with DDD who presents to the [facility] ED on 12/18/23 noted to have been in a local drive-through with staff becoming concerned secondary to notable confusion prompting EMS call and transition to the hospital for ED evaluation. #1. Acute encephalopathy, suspected primarily EtOH withdrawal as noted #2 but given encephalopathy, poor historian cannot absolutely rule out SIRS infectious source but could certainly have VS set including fever secondary to EtOH withdrawal: Will admit to MS, UA upon ED evaluation w/ +nitrite but otherwise nomarked LE and no urine bacteria or urine WBC, pending UCx, blood culture x 2 pending, continue IVFs, monitor I/Os, will judiciously hydrate, will obtain sputum culture, urine antigens, respiratory viral panel, procalcitonin requested. Will continue treatment as noted #2, #3, #4, #5 all contributing to this current presentation. Will maintain on fall and aspiration precautions. PT/OT/case management consulted for discharge planning. Given urine ketosis although suspect alcohol related patient does have anion gap 20 thus will obtainacetone to be cautious. #2. Acute EtOH Withdrawal with chronic alcohol abuse with concurrent evidence of alcoholic ketosis: Will continue on protocol with taper course of Phenobarbital cautiously given underlying liver abnormalities and if worsen may need to consider transition to shorter acting Ativan, will have also as needed gabapentin, Catapres, Bentyl, Vistaril, IV fluids, IV antiemetics, Tylenol as needed for pain. Will consult Case management for assistance for transition to next level of rehabilitation care. Mag, phos pending. Maintain on CIWA protocol concurrently. Will maintain on thiamine, folic acid and multivitamin. #3. Hyponatremia, hypochloremia: Admission sodium 134, chloride 93, potentiallycomponent of hypovolemia as patient has not been taking care of himself recentlyin addition to underlying alcohol abuse as etiology but previous labs although remote were normal range, will judiciously hydrate and repeat CMP in AM. #4. Hyperbilirubinemia, transaminitis, unclear chronicity compounded by underlying alcohol abuse/possibly chronic alcoholic hepatitis: Admission CMP with T. bili 2.70, D bili 1.85, AST/ALT 295/93, alk phos 198, liver ultrasound requested, will repeat CMP in a.m. and continue evaluation and treatments as noted. #5. Hypokalemia: Admission K+ 3.4, magnesium level requested, supplementation given, repeat level in AM. #6. Incidental lung nodule: Chest x-ray with noted 11 mm right lung base nodular opacity, unclear exact etiology, will need follow-up imaging possibly outpatient. #7. Macrocytic anemia, unclear exact chronicity: Admission hemoglobin 10.3, FXT208.6, baseline hemoglobin unknown is no recent comparisons but given history and alcoholism suspect chronic, last lab noted 11/21/2019 hemoglobin 14.6 at that time, vitamin B12 and folic acid levels requested, repeat CBC in the a.m. to further elucidate chronicity. #8. Anxiety and depression: Not on any regimen, given ongoing events will benefit greatly from continued counseling and potential initiation of antidepressant. #9. Chronic neck pain with degenerative disc disease: Patient from prior visitsinitially started to drink heavily secondary to pain in his neck, encourage continued outpatient follow-up with orthopedic spine to continue to evaluate possible interventions. #10. Hypertension: Continue home regimen including losartan, PRN hydralazine. #11. Chronic thrombocytopenia, alcohol abuse related: Admission platelet 83, previous to this noted 91, chronic, encourage sobriety, continue to trend CBC. #12. Tobacco Abuse: Encouraged cessation, inpatient consultation per RT, NR if desired. #13. DVT prophylaxis: SCDs, defer chemoprophylaxis given thrombocytopenia. #14. CODE status: Full Code. Charges/Coding Visit Charges Inpatient E&M: 78849 Init Hosp L3 12/19/23 0112 <Electronically signed by Taylor Kaur MD> Cosigner Signature (if applicable): CC: Dr. Taylor Kaur MD; Dr. Jennifer Villaseñor MD~ Signed [facility] Work Phone: 1(224) 215-524905-04-2024 Discharge summary Author Brendan Amadeo [facility] December 19, 2023 1:00am Note Date/Time December 18, 2023 10:18p m [facility] Medical Records Department [address] [place] [address] Emergency Department Summary 12/18/23 MR#: [id number] Acct: [id number] Name: JENNIFER YORK Rep #:[id number] : 1960 63 From: Brendan Ham PCP: Dr. Jennifer Villaseñor MD Status:REG ER Location: ED HPI History of Present Illness Chief Complaint: Confusion PFSH PFSH Medical History Anxiety and depression Chronic neck pain ETOH abuse Thrombocytopenia Tobacco use Home Medications losartan 50 mg tablet 1 tab PO DAILY 11/21/19 [History Last Taken Unknown] Allergy/AdvReac Type Severity Reaction Status Date / Time No Known Allergies Allergy Verified 12/18/23 22:18 Social History Smoking Status: Current every day smoker tobacco type: cigarettes EXAM Physical Exam Const Vital Signs: 12/18/23 22:03 12/19/23 00:03 Temperature 100.2 F H 98.4 F Temperature Source Temporal Temporal Pulse Rate 112 H 89 Respiratory Rate 17 18 Blood Pressure 126/99 H 118/86 H Blood Pressure Mean 108 96 Pulse Ox 98 96 Oxygen Delivery Method Room Air Room Air MDM MDM MDM Narrative Medical decision making narrative: HISTORY OF PRESENT ILLNESS: 63-year-old male presents with concern for confusion. Initial history provided by EMS. Patient was at a local drive-through when he was noted to be more confused. Per the patient he drinks approximately 7 alcoholic beverages per day. His preferred drink is vodka. States his last drink was yesterday at noon. Denies history of alcohol withdrawal. Denies any chest pain, shortness of breath does note some slight nervousness and anxiousness. Denies cough feveror chills. Denies abdominal pain. Denies chest pain. Denies bleeding diathesis. Denies vomiting or diarrhea. Denies any urinary complaints REVIEW OF SYSTEMS: Pertinent positives: Nausea, fever Pertinent negatives: Chest pain, shortness of breath, abdominal pain or any urinary complaints, focal numbness or weakness PHYSICAL EXAM: Nursing triage notes reviewed, Vital signs reviewed Constitutional: please see mdm HENT: MMM Eyes: Pupils equal round and reactive to light, Extraocular muscles intact Neck: No stridor, no JVD, full neck ROM Lungs: Clear to auscultation, No wheezing or rales. No increased work of breathing, no conversational dyspnea, no accessory muscle use, no nasal flaring. No respiratory distress noted Heart: Regular rate and rhythm, No murmurs, No rubs and No gallops, 2+ distal pulses (radial, femoral, posterior tibial) in all extremities Abdomen: Soft, there is no tenderness, rigidity, rebound or guarding, no obviousperitoneal signs, no palpable pulsatile abdominal masses, no auscultated abdominal bruit : No CVAT Extremities: No edema Neuro: No focal neurological deficits, cranial nerves II through XII intact, 5/5strength in all extremities. Intact sensation to light touch in all extremities,2+ reflexes bilateral patella tendons. Tremulous Skin: No rash or lesions noted MEDICAL DECISION MAKING: Chief Complaint: Confusion External records reviewed: No recent ED visits noted Factors affecting care: Hypertension Social determinants of health: History of alcoholism History obtained from others: EMS Consults: internal medicine (Dr. Kaur) [facility] Narrative: Patient was initially tachycardic, febrile, normotensive satting at 98% room air. Patient was tremulous, tachycardic. Unkept I considered the following differential diagnosis: Alcohol withdrawal, ICH, arrhythmia, anemia, electrolyte disturbance, infectious or metabolic encephalopathy I obtained a broad lab and imaging workup to further elucidate the etiology patient complaints. I treated the patient with Tylenol to treat his fever, Ativan and phenobarbital to treat alcohol withdrawal empirically. Zofran and fluids for rehydration ALL IMAGES (IF OBTAINED) HAVE BEEN PERSONALLY REVIEWED AND INTERPRETED BY MYSELF. EKG with sinus tachycardia, normal axis, slightly prolonged QT interval, no STEMI CBC with leukocytosis, anemia noted, noted thrombocytopenia I have personally reviewed the patient's chest x-ray. Chest x-ray is unremarkable for pulmonary edema, pneumothorax, pneumonia or focal cardiopulmonary abnormality., Incidental finding discussed with the patient UA with evidence of infection Lactate is wnl indicating no end-organ hypoperfusion and/or hypoxia. BMP with hyponatremia, hypokalemia suggestive of malnutrition and slight dehydration, no evidence of metabolic acidosis, there is an anion gap likely secondary to alcohol induced ketoacidosis Total bilirubin elevated, AST and ALT elevated alcohol-induced pattern is likelysecondary to alcohol induced liver dysfunction High-sensitivity troponin is negative, no evidence of myocardial ischemia Urine tox screen is negative Serum alcohol level is negative The synthesis of the patient's history, physical exam, labs images suggest alcohol withdrawal, UTI. This explains patient's abnormal vital signs and fever. His lactate was negative. Blood cultures were drawn prior to antibiotics. He was given ceftriaxone for empiric UTI coverage. He was given Ativan and phenobarbital for empiric alcohol withdrawal treatment. Admitted given altered mental status, abnormal vital signs, signs of alcohol withdrawal and need for ongoing antimicrobial therapy. The patient and/or family, caregivers express understanding. The patient and/orfamily, caregivers agrees with the plan. Shared decision making: I will have a discussion with the patient and or visitors regarding risk/benefits of further testing or admission. They will be made aware of of the risk/benefits inherent in this decision they will be given the opportunity to voice understanding. Total critical care time today provided was at least 0 [] minutes. This excludes separately billable procedures. Critical care time (if documented) is secondary to the patient having high probability of clinically significant/life threatening deterioration in the patient's condition which required my urgent intervention. Impression: 1. Altered mental status 2. Alcohol withdrawal 3. Anemia 4. Thrombocytopenia 5. Acute UTI 7. Hyperbilirubinemia 8. Pulmonary nodule 9. Acute hyponatremia Dispo: Admit to floor This note was generated with [employer] dictation software. It may contain incorrect words, spelling, and punctuation that were not noted in review of the chart prior to signing. Lab Data Labs: Laboratory Results - last 24 hr 12/18/23 12/18/23 22:44 23:02 WBC 4.6 RBC 3.04 L Hgb 10.3 L Hct 30.9 L MCV 101.6 H MCH 33.9 H MCHC 33.3 RDW Std Deviation 55.4 H RDW Coeff of Saloni 14.8 H Plt Count TNP MPV 11.6 Immature Gran % (Auto) 0.900 Neut % (Auto) 76.9 H Lymph % (Auto) 9.5 L [place] % (Auto) 12.5 H Eos % (Auto) 0.0 Baso % (Auto) 0.2 Absolute Neuts (auto) 3.6 Absolute Lymphs (auto) 0.44 L Nucleated RBC % 0 Differential Comment SEE COMMENT Platelet Estimate ADEQUATE RBC Morphology N CHROM Hypochromasia 1+ Anisocytosis 1+ Macrocytosis 1+ Ovalocytes RARE Sodium 134 L Potassium 3.4 L Chloride 93 L Carbon Dioxide 21.0 Anion Gap 20 H BUN 12 Creatinine 1.01 Estim Creat Clear Calc 84.53 Est GFR (MDRD) Af Amer 96 Est GFR (MDRD) Non-Af 79 BUN/Creatinine Ratio 11.9 Glucose 131 H Lactic Acid 1.7 Calcium 8.8 Total Bilirubin 2.70 H Direct Bilirubin 1.85 H AST 295 H ALT 93 H Alkaline Phosphatase 198 H Troponin I High Sens 18 Total Protein 7.7 Albumin 3.0 L Globulin 4.7 H Lipase 73 Urine Color Scarlet Urine Clarity Clear Urine pH 6.0 Ur Specific [place] 1.020 Urine Protein 500 H Urine Glucose (UA) Normal Urine Ketones 150 A* Urine Occult Blood 25 H Urine Nitrite Positive H Urine Bilirubin 6 H Urine Urobilinogen 12 H Ur Leukocyte Esterase 25 H Urine RBC 0 SEEN Urine WBC 0-5 SEEN Ur Squamous Epith Cells 0 SEEN Urine Bacteria 0 SEEN Hyaline Casts 10-25 SEEN Urine Mucus 0 SEEN Urine Opiates Screen NEGATIVE Urine Methadone Screen NEGATIVE Ur Barbiturates Screen NEGATIVE Ur Phencyclidine Scrn NEGATIVE Ur Amphetamines Screen NEGATIVE MDMA (Ecstasy) Screen NEGATIVE U Benzodiazepines Scrn NEGATIVE Urine Cocaine Screen NEGATIVE U Cannabinoids Screen NEGATIVE Ur Drug Screen Comment Ethyl Alcohol 4.0 Radiography Diagnostic Testing: Clinical Impression(s) from Imaging Studies Brain CT 12/18/23 22:36 IMPRESSION: Age-related changes as above, without evidence of acute intracranial hemorrhage in this noncontrast head CT. Sinus disease. Electronically Signed: Neri Anderson MD at 23:39 EDT , Chest X-Ray 12/18/23 22:45 IMPRESSION: 11 mm right lung base nodular opacity, to include pulmonary nodule. Recommend comparison with previous imaging to document long-term stability versus follow-up evaluation as per Fleischner guidelines as neoplastic process is not excluded. Chest with no acute disease. Electronically Signed: Neri Anderson MD at 23:36 EDT , Discharge Plan Triage Chief Complaint: Confusion ED Provider: Brendan Childs Dx/Rx/DC Orders Prescriptions: No Action losartan 50 MG tablet 1 tab PO DAILY Primary Care Provider: Jennifer Villaseñor Referrals: Jennifer Villaseñor MD [Primary Care Provider] - What to do if you have Problems For any increased pain, shortness of breath, bleeding, nausea or vomiting, chestpain, or any unexpected problems, contact your Primary Care Provider. Call [facility] ([phone]) or report to the closest Emergency Room. Call 911 if necessary. 12/19/23 0100 <Electronically signed by Brendan Childs DO> Cosigner Signature (if applicable): CC: Dr. Jennifer Villaseñor MD ~ Signed [facility] Work Phone: [phone] Discharge summary Author Brendan Childs [facility] December 19, 2023 1:00am Note Date/Time December 18, 2023 10:18p m [facility] Medical Records Department [address] [place] [id number] Emergency Department Summary 12/18/23 MR#: [id number] Acct: [id number] Name: JENNIFER YORK Rep #:[id number] : 1960 63 From: Brendan Ham PCP: Dr. Jennifer Villaseñor MD Status:REG ER Location: ED HPI History of Present Illness Chief Complaint: Confusion PFSH PFSH Medical History Anxiety and depression Chronic neck pain ETOH abuse Thrombocytopenia Tobacco use Home Medications losartan 50 mg tablet 1 tab PO DAILY 11/21/19 [History Last Taken Unknown] Allergy/AdvReac Type Severity Reaction Status Date / Time No Known Allergies Allergy Verified 12/18/23 22:18 Social History Smoking Status: Current every day smoker tobacco type: cigarettes EXAM Physical Exam Const Vital Signs: 12/18/23 22:03 12/19/23 00:03 Temperature 100.2 F H 98.4 F Temperature Source Temporal Temporal Pulse Rate 112 H 89 Respiratory Rate 17 18 Blood Pressure 126/99 H 118/86 H Blood Pressure Mean 108 96 Pulse Ox 98 96 Oxygen Delivery Method Room Air Room Air [facility] Narrative Medical decision making narrative: HISTORY OF PRESENT ILLNESS: 63-year-old male presents with concern for confusion. Initial history provided by EMS. Patient was at a local drive-through when he was noted to be more confused. Per the patient he drinks approximately 7 alcoholic beverages per day. His preferred drink is vodka. States his last drink was yesterday at noon. Denies history of alcohol withdrawal. Denies any chest pain, shortness of breath does note some slight nervousness and anxiousness. Denies cough feveror chills. Denies abdominal pain. Denies chest pain. Denies bleeding diathesis. Denies vomiting or diarrhea. Denies any urinary complaints REVIEW OF SYSTEMS: Pertinent positives: Nausea, fever Pertinent negatives: Chest pain, shortness of breath, abdominal pain or any urinary complaints, focal numbness or weakness PHYSICAL EXAM: Nursing triage notes reviewed, Vital signs reviewed Constitutional: please see mdm HENT: MMM Eyes: Pupils equal round and reactive to light, Extraocular muscles intact Neck: No stridor, no JVD, full neck ROM Lungs: Clear to auscultation, No wheezing or rales. No increased work of breathing, no conversational dyspnea, no accessory muscle use, no nasal flaring. No respiratory distress noted Heart: Regular rate and rhythm, No murmurs, No rubs and No gallops, 2+ distal pulses (radial, femoral, posterior tibial) in all extremities Abdomen: Soft, there is no tenderness, rigidity, rebound or guarding, no obviousperitoneal signs, no palpable pulsatile abdominal masses, no auscultated abdominal bruit : No CVAT Extremities: No edema Neuro: No focal neurological deficits, cranial nerves II through XII intact, 5/5strength in all extremities. Intact sensation to light touch in all extremities,2+ reflexes bilateral patella tendons. Tremulous Skin: No rash or lesions noted MEDICAL DECISION MAKING: Chief Complaint: Confusion External records reviewed: No recent ED visits noted Factors affecting care: Hypertension Social determinants of health: History of alcoholism History obtained from others: EMS Consults: internal medicine (Dr. Kaur) [facility] Narrative: Patient was initially tachycardic, febrile, normotensive satting at 98% room air. Patient was tremulous, tachycardic. Unkept I considered the following differential diagnosis: Alcohol withdrawal, ICH, arrhythmia, anemia, electrolyte disturbance, infectious or metabolic encephalopathy I obtained a broad lab and imaging workup to further elucidate the etiology patient complaints. I treated the patient with Tylenol to treat his fever, Ativan and phenobarbital to treat alcohol withdrawal empirically. Zofran and fluids for rehydration ALL IMAGES (IF OBTAINED) HAVE BEEN PERSONALLY REVIEWED AND INTERPRETED BY MYSELF. EKG with sinus tachycardia, normal axis, slightly prolonged QT interval, no STEMI CBC with leukocytosis, anemia noted, noted thrombocytopenia I have personally reviewed the patient's chest x-ray. Chest x-ray is unremarkable for pulmonary edema, pneumothorax, pneumonia or focal cardiopulmonary abnormality., Incidental finding discussed with the patient UA with evidence of infection Lactate is wnl indicating no end-organ hypoperfusion and/or hypoxia. BMP with hyponatremia, hypokalemia suggestive of malnutrition and slight dehydration, no evidence of metabolic acidosis, there is an anion gap likely secondary to alcohol induced ketoacidosis Total bilirubin elevated, AST and ALT elevated alcohol-induced pattern is likelysecondary to alcohol induced liver dysfunction High-sensitivity troponin is negative, no evidence of myocardial ischemia Urine tox screen is negative Serum alcohol level is negative The synthesis of the patient's history, physical exam, labs images suggest alcohol withdrawal, UTI. This explains patient's abnormal vital signs and fever. His lactate was negative. Blood cultures were drawn prior to antibiotics. He was given ceftriaxone for empiric UTI coverage. He was given Ativan and phenobarbital for empiric alcohol withdrawal treatment. Admitted given altered mental status, abnormal vital signs, signs of alcohol withdrawal and need for ongoing antimicrobial therapy. The patient and/or family, caregivers express understanding. The patient and/orfamily, caregivers agrees with the plan. Shared decision making: I will have a discussion with the patient and or visitors regarding risk/benefits of further testing or admission. They will be made aware of of the risk/benefits inherent in this decision they will be given the opportunity to voice understanding. Total critical care time today provided was at least 0 [] minutes. This excludes separately billable procedures. Critical care time (if documented) is secondary to the patient having high probability of clinically significant/life threatening deterioration in the patient's condition which required my urgent intervention. Impression: 1. Altered mental status 2. Alcohol withdrawal 3. Anemia 4. Thrombocytopenia 5. Acute UTI 7. Hyperbilirubinemia 8. Pulmonary nodule 9. Acute hyponatremia Dispo: Admit to floor This note was generated with [employer] dictation software. It may contain incorrect words, spelling, and punctuation that were not noted in review of the chart prior to signing. Lab Data Labs: Laboratory Results - last 24 hr 12/18/23 12/18/23 22:44 23:02 WBC 4.6 RBC 3.04 L Hgb 10.3 L Hct 30.9 L MCV 101.6 H MCH 33.9 H MCHC 33.3 RDW Std Deviation 55.4 H RDW Coeff of Saloni 14.8 H Plt Count TNP MPV 11.6 Immature Gran % (Auto) 0.900 Neut % (Auto) 76.9 H Lymph % (Auto) 9.5 L [place] % (Auto) 12.5 H Eos % (Auto) 0.0 Baso % (Auto) 0.2 Absolute Neuts (auto) 3.6 Absolute Lymphs (auto) 0.44 L Nucleated RBC % 0 Differential Comment SEE COMMENT Platelet Estimate ADEQUATE RBC Morphology N CHROM Hypochromasia 1+ Anisocytosis 1+ Macrocytosis 1+ Ovalocytes RARE Sodium 134 L Potassium 3.4 L Chloride 93 L Carbon Dioxide 21.0 Anion Gap 20 H BUN 12 Creatinine 1.01 Estim Creat Clear Calc 84.53 Est GFR (MDRD) Af Amer 96 Est GFR (MDRD) Non-Af 79 BUN/Creatinine Ratio 11.9 Glucose 131 H Lactic Acid 1.7 Calcium 8.8 Total Bilirubin 2.70 H Direct Bilirubin 1.85 H AST 295 H ALT 93 H Alkaline Phosphatase 198 H Troponin I High Sens 18 Total Protein 7.7 Albumin 3.0 L Globulin 4.7 H Lipase 73 Urine Color Scarlet Urine Clarity Clear Urine pH 6.0 Ur Specific [place] 1.020 Urine Protein 500 H Urine Glucose (UA) Normal Urine Ketones 150 A* Urine Occult Blood 25 H Urine Nitrite Positive H Urine Bilirubin 6 H Urine Urobilinogen 12 H Ur Leukocyte Esterase 25 H Urine RBC 0 SEEN Urine WBC 0-5 SEEN Ur Squamous Epith Cells 0 SEEN Urine Bacteria 0 SEEN Hyaline Casts 10-25 SEEN Urine Mucus 0 SEEN Urine Opiates Screen NEGATIVE Urine Methadone Screen NEGATIVE Ur Barbiturates Screen NEGATIVE Ur Phencyclidine Scrn NEGATIVE Ur Amphetamines Screen NEGATIVE MDMA (Ecstasy) Screen NEGATIVE U Benzodiazepines Scrn NEGATIVE Urine Cocaine Screen NEGATIVE U Cannabinoids Screen NEGATIVE Ur Drug Screen Comment Ethyl Alcohol 4.0 Radiography Diagnostic Testing: Clinical Impression(s) from Imaging Studies Brain CT 12/18/23 22:36 IMPRESSION: Age-related changes as above, without evidence of acute intracranial hemorrhage in this noncontrast head CT. Sinus disease. Electronically Signed: Neri Anderson MD at 23:39 EDT , Chest X-Ray 12/18/23 22:45 IMPRESSION: 11 mm right lung base nodular opacity, to include pulmonary nodule. Recommend comparison with previous imaging to document long-term stability versus follow-up evaluation as per Fleischner guidelines as neoplastic process is not excluded. Chest with no acute disease. Electronically Signed: Neri Anderson MD at 23:36 EDT , Discharge Plan Triage Chief Complaint: Confusion ED Provider: Brendan Childs Dx/Rx/DC Orders Prescriptions: No Action losartan 50 MG tablet 1 tab PO DAILY Primary Care Provider: Jennifer Villaseñor Referrals: Jennifer Villaseñor MD [Primary Care Provider] - What to do if you have Problems For any increased pain, shortness of breath, bleeding, nausea or vomiting, chestpain, or any unexpected problems, contact your Primary Care Provider. Call [facility] ([phone]) or report to the closest Emergency Room. Call 911 if necessary. 12/19/23 0100 <Electronically signed by Brendan Childs DO> Cosigner Signature (if applicable): CC: Dr. Jennifer Villaseñor MD ~ Signed [facility] Work Phone: [phone] Hospital Discharge instructions Patient Education 11/01/2023 22:25:04 Alcohol Intoxication Alcohol Intoxication Alcohol intoxication is very serious. It occurs when you drink alcohol faster than your liver can break it down. Severe intoxication is a medical emergency. It is also called alcohol overdose or alcohol poisoning. It can lead to . Here are some cano facts: It can take 10 minutes or more to start to feel the effects of a drink. So it's easy to drink more than you planned. Binge drinking is having 5 or more drinks over a short time. This can lead to an alcohol overdose. One drink may be more than 1 serving of alcohol. In some cases, a drink can be 2 to 4 servings. This depends on the type of drink. It takes about 1 hour for your body to break down 1 serving of alcohol. If you have more than 1 drink, it can take a few hours or more. People with alcohol abuse disorders are more likely to get alcohol poisoning. But it can happen to anyone who drinks too much alcohol. Even a first-time drinker is at risk. Many things affect how drinks will affect you. These include: oIf you've eaten oHow fast you drink oYour weight oHow much you normally drink (or not) oMedicines you are taking oIf you have a chronic disease oIf you are male or female Symptoms of alcohol intoxication Mild intoxication Feel more relaxed, less tense Slurred speech Sleepy Poor motor skills Moderate intoxication Changing behavior, aggression, depression Poor judgment Confusion Trouble focusing Poor balance and coordination Severe intoxication Vomiting Seizures Fainting Cold, clammy skin Slow or irregular breathing Low body temperature (hypothermia) Coma Health effects Alcohol causes health problems. This can happen after only drinking a little. There is no set number of drinks or amount of alcohol that is too much. How much you drink at 1 time affects your health.And so does drinking often. Alcohol affects your whole body in these ways: Brain. Alcohol can harm parts of the brain that affect your balance, memory, thinking, and feelings. It can cause memory loss, blackouts, depression, agitation, sleep cycle changes, and seizures. These changes may or may not be go away. Heart and vascular system. Alcohol affects many areas. It can damage heart muscle. This can cause the heart muscle to weaken and stretch (cardiomyopathy). This can lead to trouble breathing, an irregular heartbeat, atrial fibrillation, leg swelling, and heart failure. It makes the blood vessels stiffen. This causes high blood pressure. All of these problems raise your risk for heart attacks or strokes. Liver. Alcohol causes fat to build up in the liver. This affects how the liver works. And it raisesthe risk for hepatitis. This condition leads to belly pain, appetite loss, yellow skin and eyes (jaundice), and bleeding problems. It also leads to harmful changes in the liver. These include liver fibrosis and cirrhosis. This can affect your ability to fight off infections. These liver changes stop it from removing toxins in your blood. This can cause a brain disease called encephalopathy. Pancreas. Alcohol can cause inflammation of the pancreas. This is called pancreatitis. It can lead to belly pain, fever, and diabetes. Immune system. Alcohol weakens your immune system. This makes it harder to fight off infections andcolds. You will also have a higher risk of some infections. Cancer risk. Alcohol raises your risk of some types of cancer. They include cancer of the mouth, esophagus, pharynx, larynx, liver, and breast. Sexual function. Alcohol abuse can also lead to sexual problems. Alcohol use in may cause lifelong harm to the baby. It can also cause a group of defects called alcohol spectrum disorder. These defects can include physical problems. They can also include behavior and learning problems. Home care for alcohol intoxication Follow these tips to care for yourself at home: Don't drink any more alcohol. Don't drive until all effects of the alcohol have worn off. Don't use machinery that can cause injuries. Get lots of rest over the next few days. Drink plenty of water and other drinks that do not have alcohol. Try to eat regular meals. If you have been drinking a lot every day, you may have alcohol withdrawal. Symptoms often last 3 to 4 days. They may include: Nervousness Shakiness Nausea Sweating Sleeplessness They may also include severe symptoms. These are known as delirium tremens (DTs). They include: Seizures Confusion Seeing or hearing things that are not there (hallucinations) Alcohol withdrawal can cause . Contact your healthcare provider before you stop drinking. Theymay be able to help you with medicine. They can also refer you to an inpatient detox program. Or stay with family or friends who can help and support you. If you have severe symptoms, contact your provider or call 911 for help (see below). Follow-up care These groups can help you and your loved one: Alcoholics Anonymous (A.A.) gives support through a self-help fellowship. Find A.A. meetings near you at www.aa.org. [employer] gives support to families. Call 991-212-8336, or go to www.al-anon.org. National [place] on Alcoholism and Drug Dependence (NCADD) has helpful resources. NCADD can be reached at 772-305-2780 and www.ncadd.org. Call 911 Call 911 if any of these occur: Trouble breathing or slow irregular breathing Chest pain Sudden weakness on one side of your body or sudden trouble speaking Heavy bleeding or vomiting blood Very sleepy or having trouble waking up Fainting Fast heart rate Seizure When to seek medical advice Call your healthcare provider right away if any of these occur: Severe shakiness Fever of 100.4 F (38 C) or higher, or as directed by your provider Confusion or hallucinations Pain in your upper belly that gets worse Repeated vomiting [id number] [employer]. [address] [place], [place] [id number]. All rights reserved. This information is not intended as a substitute for professional medical care. Always follow yourhealthcare professional's instructions. 11/01/2023 22:25:02 Fall, Mechanical Mechanical Fall You have had a fall today. It appears that the cause is what is called mechanical. That means that you slipped, tripped, or lost your balance. If your fall had been because of fainting or a seizure, you might need other tests. It is normal to feel sore and tight in your muscles and back the next day, and not just the musclesyou injured at first. Remember, all the parts of your body are connected, so while initially one area hurts, the next day another may hurt. Also, when you injure yourself, it causes inflammation, which then causes the muscles to tighten up and hurt more. After the initial worsening, it should gradually improve over the next few days. Do report more severe pain. Even without a definite head injury, you can still get a concussion from your head suddenly jerkingforward, backward, or sideways when falling. Concussions and even bleeding can still happen, especially if you have had a recent injury or take blood thinner medicine. It is not unusual to have a mild headache and feel tired and even nauseous or dizzy. Home care Rest today and go back to your normal activities when you are feeling back to normal. If you were injured during the fall, follow the advice from your healthcare provider regarding careof your injury. At first, do not try to stretch out the sore spots. If there is a strain, stretching may make it worse. Massage may help relax the muscles without stretching them. You can use an ice pack or cold compress on and off to the sore spots 10 to 20 minutes at a time, as often as you feel comfortable. This may help reduce the inflammation, swelling and pain. If you have any scrapes or abrasions, they usually heal within 10 days. It is important to keep theabrasions clean while they initially start to heal. However, an infection may happen even with proper care, so watch for early signs of infection (such as warmth, redness, or swelling). Medicines Talk to your healthcare provider before taking new medicines, especially if you have other medical problems or are taking other medicines. If you need anything for pain, you can take acetaminophen or ibuprofen, unless you were given a different pain medicine to use. Talk with your healthcare provider before using these medicines if you have chronic liver or kidney disease, or ever had a stomach ulcer or gastrointestinal bleeding, or are taking blood thinner medicines. Be careful if you are given prescription pain medicines, narcotics, or medicine for muscle spasm. They can make you sleepy and dizzy, and can affect your coordination, reflexes, and judgment. Do not drive or do work where you can injure yourself when taking them. Fall prevention Fix, remove, or replace anything that caused your fall. Make your home safe by keeping walkways clear of objects you may trip over. Use nonslip pads under rugs. Don't use small area rugs or throw rugs. Don't walk in poorly lit areas. Don't stand on chairs or wobbly ladders. Use caution when reaching overhead or looking upward. This position can cause a loss of balance. Be sure your shoes fit properly, have nonslip bottoms and are in good condition. Be cautious when going up and down curbs, and walking on uneven sidewalks. If your balance is poor, consider using a cane or walker. Stay as active as you can. Balance, flexibility, strength, and endurance all come from exercise. They all play a role in preventing falls. If you have pets, know where they are before you stand up or walk so you don't trip over them. Limit alcohol intake. Alcohol can cause balance problems and increase the risk of falls. Use night lights. Have your eyes tested to be sure you are seeing well, even if you already wear glasses. Follow-up Follow up with your healthcare provider, or as advised. If X-rays or CT scans were done, you will be notified if there is a change in the reading, especially if it affects treatment. Call 911 Call 911 if any of these happen: Trouble breathing Confused or difficulty arousing Fainting or loss of consciousness Rapid or very slow heart rate Seizure Difficulty with speech or vision, weakness of an arm or leg Difficulty walking or talking, loss of balance, numbness or weakness in one side of your body, or facial droop When to seek medical advice Call your healthcare provider right away if any of these happen: Repeated mechanical falls, or unexplained falls Dizziness Severe headache Blood in vomit, stools (black or red color) 8941-7449 [employer]. [address] [place] [address]. All rights reserved. This information is not intended as a substitute for professional medical care. Always follow yourhealthcare professional's instructions. [facility] 03-17-2024 Note Discharge Instructions Thank you for allowing [facility] to assist you with your healthcare needs. The following is importantdischarge information regarding your hospital visit. Diagnosis from Today's Visit Alcohol intoxication Altered mental status Fall What to Do Next Instructions from Your Care Team Follow-up with your primary care provider. Would recommend alcohol cessation. Return the emergency department if experience worsening symptoms or any other care concern. No qualifying data available. Post Acute Orders No qualifying data available. Allergies NKA Medications Please ask your primary doctor or pharmacist before taking any other medication not listed, including over the counter drugs, herbal medications, vitamins and or supplements as they may interact withyour home medications. Please take this list to your next doctor s visit. Bring all medications you take, including over the counter medications, herbals and other supplements with you to your doctor s visit. Patients and families are reminded to discard old lists and to update any records with all medication providers or retail pharmacies. Education Materials Alcohol Intoxication Alcohol intoxication is very serious. It occurs when you drink alcohol faster than your liver can break it down. Severe intoxication is a medical emergency. It is also called alcohol overdose or alcohol poisoning. It can lead to . Here are some cano facts: It can take 10 minutes or more to start to feel the effects of a drink. So it's easy to drink more than you planned. Binge drinking is having 5 or more drinks over a short time. This can lead to an alcohol overdose. One drink may be more than 1 serving of alcohol. In some cases, a drink can be 2 to 4 servings. This depends on the type of drink. It takes about 1 hour for your body to break down 1 serving of alcohol. If you have more than 1 drink, it can take a few hours or more. People with alcohol abuse disorders are more likely to get alcohol poisoning. But it can happen to anyone who drinks too much alcohol. Even a first-time drinker is at risk. Many things affect how drinks will affect you. These include: oIf you've eaten oHow fast you drink oYour weight oHow much you normally drink (or not) oMedicines you are taking oIf you have a chronic disease oIf you are male or female Symptoms of alcohol intoxication Mild intoxication Feel more relaxed, less tense Slurred speech Sleepy Poor motor skills Moderate intoxication Changing behavior, aggression, depression Poor judgment Confusion Trouble focusing Poor balance and coordination Severe intoxication Vomiting Seizures Fainting Cold, clammy skin Slow or irregular breathing Low body temperature (hypothermia) Coma Health effects Alcohol causes health problems. This can happen after only drinking a little. There is no set number of drinks or amount of alcohol that is too much. How much you drink at 1 time affects your health.And so does drinking often. Alcohol affects your whole body in these ways: Brain. Alcohol can harm parts of the brain that affect your balance, memory, thinking, and feelings. It can cause memory loss, blackouts, depression, agitation, sleep cycle changes, and seizures. These changes may or may not be go away. Heart and vascular system. Alcohol affects many areas. It can damage heart muscle. This can cause the heart muscle to weaken and stretch (cardiomyopathy). This can lead to trouble breathing, an irregular heartbeat, atrial fibrillation, leg swelling, and heart failure. It makes the blood vessels stiffen. This causes high blood pressure. All of these problems raise your risk for heart attacks or strokes. Liver. Alcohol causes fat to build up in the liver. This affects how the liver works. And it raisesthe risk for hepatitis. This condition leads to belly pain, appetite loss, yellow skin and eyes (jaundice), and bleeding problems. It also leads to harmful changes in the liver. These include liver fibrosis and cirrhosis. This can affect your ability to fight off infections. These liver changes stop it from removing toxins in your blood. This can cause a brain disease called encephalopathy. Pancreas. Alcohol can cause inflammation of the pancreas. This is called pancreatitis. It can lead to belly pain, fever, and diabetes. Immune system. Alcohol weakens your immune system. This makes it harder to fight off infections andcolds. You will also have a higher risk of some infections. Cancer risk. Alcohol raises your risk of some types of cancer. They include cancer of the mouth, esophagus, pharynx, larynx, liver, and breast. Sexual function. Alcohol abuse can also lead to sexual problems. Alcohol use in may cause lifelong harm to the baby. It can also cause a group of defects called alcohol spectrum disorder. These defects can include physical problems. They can also include behavior and learning problems. Home care for alcohol intoxication Follow these tips to care for yourself at home: Don't drink any more alcohol. Don't drive until all effects of the alcohol have worn off. Don't use machinery that can cause injuries. Get lots of rest over the next few days. Drink plenty of water and other drinks that do not have alcohol. Try to eat regular meals. If you have been drinking a lot every day, you may have alcohol withdrawal. Symptoms often last 3 to 4 days. They may include: Nervousness Shakiness Nausea Sweating Sleeplessness They may also include severe symptoms. These are known as delirium tremens (DTs). They include: Seizures Confusion Seeing or hearing things that are not there (hallucinations) Alcohol withdrawal can cause . Contact your healthcare provider before you stop drinking. Theymay be able to help you with medicine. They can also refer you to an inpatient detox program. Or stay with family or friends who can help and support you. If you have severe symptoms, contact your provider or call 911 for help (see below). Follow-up care These groups can help you and your loved one: Alcoholics Anonymous (A.A.) gives support through a self-help fellowship. Find A.A. meetings near you at www.aa.org. [employer] gives support to families. Call 473-336-4957, or go to www.al-anon.org. National [place] on Alcoholism and Drug Dependence (NCADD) has helpful resources. NCADD can be reached at 567-594-7068 and www.ncadd.org. Call 911 Call 911 if any of these occur: Trouble breathing or slow irregular breathing Chest pain Sudden weakness on one side of your body or sudden trouble speaking Heavy bleeding or vomiting blood Very sleepy or having trouble waking up Fainting Fast heart rate Seizure When to seek medical advice Call your healthcare provider right away if any of these occur: Severe shakiness Fever of 100.4 F (38 C) or higher, or as directed by your provider Confusion or hallucinations Pain in your upper belly that gets worse Repeated vomiting [id number] [employer] [address] [place] [address]. All rights reserved. This information is not intended as a substitute for professional medical care. Always follow yourhealthcare professional's instructions. Mechanical Fall You have had a fall today. It appears that the cause is what is called mechanical. That means that you slipped, tripped, or lost your balance. If your fall had been because of fainting or a seizure, you might need other tests. It is normal to feel sore and tight in your muscles and back the next day, and not just the musclesyou injured at first. Remember, all the parts of your body are connected, so while initially one area hurts, the next day another may hurt. Also, when you injure yourself, it causes inflammation, which then causes the muscles to tighten up and hurt more. After the initial worsening, it should gradually improve over the next few days. Do report more severe pain. Even without a definite head injury, you can still get a concussion from your head suddenly jerkingforward, backward, or sideways when falling. Concussions and even bleeding can still happen, especially if you have had a recent injury or take blood thinner medicine. It is not unusual to have a mild headache and feel tired and even nauseous or dizzy. Home care Rest today and go back to your normal activities when you are feeling back to normal. If you were injured during the fall, follow the advice from your healthcare provider regarding careof your injury. At first, do not try to stretch out the sore spots. If there is a strain, stretching may make it worse. Massage may help relax the muscles without stretching them. You can use an ice pack or cold compress on and off to the sore spots 10 to 20 minutes at a time, as often as you feel comfortable. This may help reduce the inflammation, swelling and pain. If you have any scrapes or abrasions, they usually heal within 10 days. It is important to keep theabrasions clean while they initially start to heal. However, an infection may happen even with proper care, so watch for early signs of infection (such as warmth, redness, or swelling). Medicines Talk to your healthcare provider before taking new medicines, especially if you have other medical problems or are taking other medicines. If you need anything for pain, you can take acetaminophen or ibuprofen, unless you were given a different pain medicine to use. Talk with your healthcare provider before using these medicines if you have chronic liver or kidney disease, or ever had a stomach ulcer or gastrointestinal bleeding, or are taking blood thinner medicines. Be careful if you are given prescription pain medicines, narcotics, or medicine for muscle spasm. They can make you sleepy and dizzy, and can affect your coordination, reflexes, and judgment. Do not drive or do work where you can injure yourself when taking them. Fall prevention Fix, remove, or replace anything that caused your fall. Make your home safe by keeping walkways clear of objects you may trip over. Use nonslip pads under rugs. Don't use small area rugs or throw rugs. Don't walk in poorly lit areas. Don't stand on chairs or wobbly ladders. Use caution when reaching overhead or looking upward. This position can cause a loss of balance. Be sure your shoes fit properly, have nonslip bottoms and are in good condition. Be cautious when going up and down curbs, and walking on uneven sidewalks. If your balance is poor, consider using a cane or walker. Stay as active as you can. Balance, flexibility, strength, and endurance all come from exercise. They all play a role in preventing falls. If you have pets, know where they are before you stand up or walk so you don't trip over them. Limit alcohol intake. Alcohol can cause balance problems and increase the risk of falls. Use night lights. Have your eyes tested to be sure you are seeing well, even if you already wear glasses. Follow-up Follow up with your healthcare provider, or as advised. If X-rays or CT scans were done, you will be notified if there is a change in the reading, especially if it affects treatment. Call 911 Call 911 if any of these happen: Trouble breathing Confused or difficulty arousing Fainting or loss of consciousness Rapid or very slow heart rate Seizure Difficulty with speech or vision, weakness of an arm or leg Difficulty walking or talking, loss of balance, numbness or weakness in one side of your body, or facial droop When to seek medical advice Call your healthcare provider right away if any of these happen: Repeated mechanical falls, or unexplained falls Dizziness Severe headache Blood in vomit, stools (black or red color) 6584-2187 [employer] [address] [place] [address]. All rights reserved. This information is not intended as a substitute for professional medical care. Always follow yourhealthcare professional's instructions. Additional Information VACCINATE! IT SAVES LIVES! Members of the community who have not yet received the COVID-19 vaccine and would like to receive it can visit one of [facility] vaccine clinics. There are many vaccine clinic locations within the [facility]. For locations and available times, please visit [email or web address].[email or web address]/. It is important to note that some COVID mobile vaccine clinics are held outdoors and may be canceled in rainy or stormy conditions. To learn more about pediatric vaccinations (ages 5-11), we invite you to visit the [facility] webpage. [email or web address]/[email or web address] learn more about the COVID-19 vaccine, we invite you to visit the CDC website for a list of frequently asked questions. https://www.cdc.gov/coronavirus/2019-ncov/vaccines/faq.html [facility] Patient Portal Access Instructions: Stay connected with your healthcare team and access your personal medical information anytime with the [facility] Patient Portal. If you would like a full copy of your medical records please contact the [facility] Medical Records Department Thursday through Thursday between 8a.m. and 4:30p.m. Please follow the directions below to access the portal: 1.Access the email account you provided upon registration to the [facility].2.Look for an invitation email from [facility].3.Open the email and access the invitation link: Accept Invitation to [facility]4.Fill in the required allen to create your account. Sign into [email or web address] with your username and password that you created in the above steps to stay up to date. You can then view a summary of results, a summary of your visits, and the ability to download your summaries to your computer or send the information securely to a physician. Remember that your healthcare information is confidential, so carefully consider who you will allow to register on the [facility] Patient Portal for access to your information. You can also access the [facility] Patient Portal on the [employer] louisa. Simply click on Health Records under [employer] and then click on the [facility] logo. HOW TO SAFELY DISPOSE OF PRESCRIPTION MEDICATIONS Please use one of the following methods to safely dispose of your unused medications. 1.Use a drug disposal kit: the drug disposal pouch allows you to safely discard your old and unuseddrugs. Ask your nurse to give you one when you are discharged.2.Visit a local take-back location: Many local pharmacies and police departments have programs that collect old and unwanted prescriptiondrugs. Call your local pharmacy or go to http://[employer].Tweetflow/4T6Zy7n to find one close to you.3.Make use of household items: Use cat litter or old coffee grounds to dispose medications if other options arenot available. Mix your drugs with these household products, seal them in an airtight container andthrow it into the garbage. Call [facility]: [phone] to be sure your drugs can be disposed of in this way. Some medicines may require a different approach.4.Never flush your medications down the toilet. IF YOU HAVE BEEN PRESCRIBED AN OPIOIDS FOR PAIN If you have been prescribed an opioid (such as hydrocodone, oxycodone or morphine), it is critical to understand the possible side effects and risks of opioid pain medications. Even when taken as directed, opioids can have several side effects including: Tolerance, meaning you might need to take more of a medication for the same pain relief. Nausea, vomiting and/or constipation. Sleepiness, dizziness, dry mouth, confusion, depression or itching. Physical dependence, meaning you have withdrawal symptoms when a medication is stopped ? this can develop within a few days. KNOW YOUR RESPONSIBILITIES It is important to know exactly how much and how often to take the opioid pain medications you are prescribed. Never take opioids in higher amounts or more often than prescribed. Do not combine opioids with alcohol or other drugs that cause drowsiness, such as benzodiazepines, also known as benzos,including diazepam and alprazolam, muscle relaxants or sleep aids. Never sell or share prescriptionopioids. This is illegal. Store opioids in a secure place and out of reach of others (including children, family, friends and visitors). The last page(s) of this document has been signed and retained as a CHART COPY Signatures Patient Education Materials Alcohol Intoxication Fall, Mechanical Medication Leaflets My discharge plan and instructions have been reviewed and explained to me and I,JENNIFER YORK understand my current condition and have read and understand these discharge instructions. I have received a written copy of the plan/instructions. If I have questions, I am aware that I should contactmy doctor. 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 Multiplanar reformatted images are provided for review. Automated exposure control, iterative reconstruction, and/or weight based adjustment of the mA/kV was utilized to reduce the radiation dose to as low as reasonably achievable. COMPARISON: None. HISTORY: ORDERING SYSTEM PROVIDED HISTORY: Reason for Exam: Altered mental status FINDINGS: BONES/ALIGNMENT: There is no acute fracture or traumatic malalignment. DEGENERATIVE CHANGES: Multilevel degenerative changes of the spine. No high-grade spinal canal stenosis. SOFT TISSUES: Emphysema. Scattered subcentimeter nodularities the lung apices which could be correlated with any prior cross-sectional imaging, could be sequelae of infectious or inflammatory process. IMPRESSION: No acute fracture of the cervical spine. Interpreted by: Shamar Pedro Preliminary Report By: Shamar Pedro Electronically signed By Shamar Pedro Dictated Date: 11/01/2023 8:26:45 PM Prelim Date: 11/01/2023 8:34:45 PM Sign Date: 11/01/2023 8:34:45 PM Ordering Provider: [facility]17[facility]2024 Note ORIGINAL EXAMINATION: CT OF THE HEAD WITHOUT CONTRAST 11/01/2023 8:20 pm TECHNIQUE: CT of the head was performed without the administration of intravenous contrast. Automated exposure control, iterative reconstruction, and/or weight based adjustment of the mA/kV was utilized to reduce the radiation dose to as low as reasonably achievable. COMPARISON: 09/16/2023. HISTORY: ORDERING SYSTEM PROVIDED HISTORY: Reason for Exam: fall/ams pt uncooperatived kept moving during scan best films possible Altered mental status FINDINGS: BRAIN/VENTRICLES: No definite evidence of acute intracranial hemorrhage, mass effect, midline shift, hydrocephalus, or acute large territorial infarction is identified. Scattered white matter hypodensities are nonspecific but statistically most consistent with mild chronic microvascular angiopathy. The ventricles are mildly enlarged with commensurate enlargement of the sulci most consistent with mild age-related volume loss. Carotid siphon calcifications are present. ORBITS: Bilateral lens replacement. SINUSES: The visualized paranasal sinuses and mastoid air cells demonstrate no acute abnormality. SOFT TISSUES/SKULL: No acute abnormality of the visualized skull or soft tissues. IMPRESSION: No acute intracranial abnormality. I have personally reviewed the images of this examination and agree with the resident's findings and interpretation. Interpreted by: Shamar Pedro Preliminary Report By: Ronen Bustillos Electronically signed By Shamar Pedro Dictated Date: 11/01/2023 8:21:31 PM Prelim Date: 11/01/2023 8:28:20 PM Sign Date: 11/01/2023 8:44:13 PM Ordering Provider: [facility]03-17-2024 Note ORIGINAL EXAMINATION: ONE XRAY VIEW OF THE PELVIS 11/01/2023 8:18 pm COMPARISON: None. HISTORY: ORDERING SYSTEM PROVIDED HISTORY: Reason for Exam: fall FINDINGS: No fracture or dislocation. Degenerative changes of the lumbosacral spine. IMPRESSION: No fracture or dislocation. Interpreted by: Shamar Pedro Preliminary Report By: Shamar Pedro Electronically signed By Shamar Pedro Dictated Date: 11/01/2023 8:24:14 PM Prelim Date: 11/01/2023 8:24:57 PM Sign Date: 11/01/2023 8:24:57 PM [facility] ORIGINAL EXAMINATION: ONE XRAY VIEW OF THE CHEST 11/01/2023 8:17 pm COMPARISON: Radiograph of the ribs August 01, 2022. HISTORY: ORDERING SYSTEM PROVIDED HISTORY: Reason for Exam: Altered mental status FINDINGS: Cardiomediastinal silhouette is unchanged in size. Costophrenic angles are sharp. No radiographic pneumothorax. No focal consolidation. Degenerative changes of the shoulders and spine. IMPRESSION: No focal consolidation. Interpreted by: Shamar Pedro Preliminary Report By: Shamar Pedro Electronically signed By Shamar Pedro Dictated Date: 11/01/2023 8:23:20 PM Prelim Date: 11/01/2023 8:24:05 PM Sign Date: 11/01/2023 8:24:05 PM Ordering Provider: [facility]03-17-2024 NoteSinus tachycardia Multiform ventricular premature complexes Borderline intraventricular conduction delay Abnormal R-wave progression, early transition Minimal ST depression, anterolateral leads Prolonged QT interval Electronic Signature: NATHANIEL CARUSO DO 11/01/2023 19:27:[address] [place] [address] 03-17-2024 Evaluation + Plan note Diagnostic Tests Pending * Urine Drug Screen (AO/AM Only) 11/01/23 Future Scheduled Tests Radiology* XR Spine Lumbar W/Obliques 4 Views 01/13/23 [facility] 01-31-2024 Note ORIGINAL EXAMINATION: CT OF THE RIGHT SHOULDER WITHOUT CONTRAST 09/16/2023 12:52 pm TECHNIQUE: CT of the right shoulder was performed without the administration of intravenous contrast. Multiplanar reformatted images are provided for review. Automated exposure control, iterative reconstruction, and/or weight based adjustment of the mA/kV was utilized to reduce the radiation dose to as low as reasonably achievable. COMPARISON: Right shoulder radiographs 07/18/2023 for HISTORY ORDERING SYSTEM PROVIDED HISTORY: Reason for Exam: Right shoulder injury FINDINGS: Contour deformity is noted along the posterosuperior humeral head consistent with Hill-Sachs fracture. There is no osseous Bankart lesion. There is ill-defined calcification posterior to the proximal humeral diaphysis. The humeral head is normally positioned with respect of the glenoid. 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 The imaged portion of the lung is clear. IMPRESSION: Hill-Sachs fracture consistent with sequela from prior shoulder dislocation. Ill-defined calcification posterior to the proximal humeral diaphysis may represent dystrophic calcification or callus. Interpreted by: rPeet Paredes Preliminary Report By: Preet Paredes Electronically signed By Preet Paredes Dictated Date: 09/16/2023 2:23:43 PM Prelim Date: 09/16/2023 2:33:00 PM Sign Date: 09/16/2023 2:33:00 PM Ordering Provider: JENNIFER [facility]12-02-2023 Hospital Discharge instructions Patient Education 07/18/2023 11:26:05 Shoulder Sprain Shoulder Sprain A sprain is a stretching or tearing of the ligaments that hold a joint together. A sprain may take up to 8 weeks to fully heal, depending on how severe it is. Moderate to severe shoulder sprains are treated with a sling or shoulder immobilizer. Minor sprains can be treated without any special support. Home care The following guidelines will help you care for your injury at home: If a sling was given to you, leave it in place for the time advised by your healthcare provider. Ifyou aren t sure how long to wear it, ask for advice. If the sling becomes loose, adjust it so that your forearm is level with the ground. Your shoulder should feel well supported. Put an ice pack on the injured area for 20 minutes every 1 to 2 hours the first day. You can make your own ice pack by putting ice cubes in a plastic bag. A bag of frozen peas or something similar works well too. Wrap the bag in a thin towel. Continue with ice packs 3 to 4 times a day for the next 2 to 3 days. Then use the pack as needed to ease pain and swelling. You may use acetaminophen or ibuprofen to control pain, unless another pain medicine was prescribed. If you have chronic liver or kidney disease, talk with your healthcare provider before using thesemedicines. Also talk with your provider if you ve had a stomach ulcer or gastrointestinal bleeding. Shoulder joints become stiff if left in a sling for too long. You should start range of motion exercises about 7 to 10 days after the injury. Talk with your provider to find out what type of exercises to do and how soon to start. Follow-up care Follow up with your healthcare provider, or as advised. Any X-rays you had today don t show any broken bones, breaks, or fractures. Sometimes fractures dont show up on the first X-ray. Bruises and sprains can sometimes hurt as much as a fracture. These injuries can take time to heal completely. If your symptoms don t improve or they get worse, talk with your provider. You may need a repeat X-ray or other treatments. When to seek medical advice Call your healthcare provider right away if any of these occur: Shoulder pain or swelling in your arm that gets worse Fingers become cold, blue, numb, or tingly Large amount of bruising of the shoulder or upper arm Fever or chills [id number] [employer]. [address] [place] [address]. All rights reserved. This information is not intended as a substitute for professional medical care. Always follow yourhealthcare professional's instructions. 07/18/2023 11:25:56 Shoulder Sprain Shoulder Sprain A sprain is a stretching or tearing of the ligaments that hold a joint together. A sprain may take up to 8 weeks to fully heal, depending on how severe it is. Moderate to severe shoulder sprains are treated with a sling or shoulder immobilizer. Minor sprains can be treated without any special support. Home care The following guidelines will help you care for your injury at home: If a sling was given to you, leave it in place for the time advised by your healthcare provider. Ifyou aren t sure how long to wear it, ask for advice. If the sling becomes loose, adjust it so that your forearm is level with the ground. Your shoulder should feel well supported. Put an ice pack on the injured area for 20 minutes every 1 to 2 hours the first day. You can make your own ice pack by putting ice cubes in a plastic bag. A bag of frozen peas or something similar works well too. Wrap the bag in a thin towel. Continue with ice packs 3 to 4 times a day for the next 2 to 3 days. Then use the pack as needed to ease pain and swelling. You may use acetaminophen or ibuprofen to control pain, unless another pain medicine was prescribed. If you have chronic liver or kidney disease, talk with your healthcare provider before using thesemedicines. Also talk with your provider if you ve had a stomach ulcer or gastrointestinal bleeding. Shoulder joints become stiff if left in a sling for too long. You should start range of motion exercises about 7 to 10 days after the injury. Talk with your provider to find out what type of exercises to do and how soon to start. Follow-up care Follow up with your healthcare provider, or as advised. Any X-rays you had today don t show any broken bones, breaks, or fractures. Sometimes fractures dont show up on the first X-ray. Bruises and sprains can sometimes hurt as much as a fracture. These injuries can take time to heal completely. If your symptoms don t improve or they get worse, talk with your provider. You may need a repeat X-ray or other treatments. When to seek medical advice Call your healthcare provider right away if any of these occur: Shoulder pain or swelling in your arm that gets worse Fingers become cold, blue, numb, or tingly Large amount of bruising of the shoulder or upper arm Fever or chills [phone] [employer] [address] [place] [address], [place] [address]. All rights reserved. This information is not intended as a substitute for professional medical care. Always follow yourhealthcare professional's instructions. Follow Up Care 07/18/2023 09:44:39 With:JENNIFER VILLASEÑOR MD Address: [address] [facility] [address] [facility] [place], [place] [id number]- When:2-4 days [facility] 12-02-2023 Note Discharge Instructions Thank you for allowing [facility] to assist you with your healthcare needs. The following is importantdischarge information regarding your hospital visit. Diagnosis from Today's Visit Shoulder pain-swelling Shoulder strain What to Do Next Instructions from Your Care Team No qualifying data available. Post Acute Orders No qualifying data available. You Need to Schedule the Following Appointments Follow Up with JENNIFER VILLASEÑOR MD When Within 2-4 days Where: [address] [place] [address]- Allergies NKA Medications Please ask your primary doctor or pharmacist before taking any other medication not listed, including over the counter drugs, herbal medications, vitamins and or supplements as they may interact withyour home medications. What How Much When Why Instructions Last Dose New acetaminophen-oxyCODONE (Percocet 5 mg-325 mg oral tablet) 1 tab(s) by mouth Every 4 hours as needed for as needed for pain Shoulder strain Duration: 3 Days Dx: [id number] Printed Prescription Unchanged cyanocobalamin (Vitamin B12 50 mcg oral tablet) 1 tab(s) by mouth Once a day Unchanged LORazepam (Ativan 1 mg oral tablet) 1 tab(s) by mouth Three (3) times a day Anxiety, generalized Duration: 30 Days Unchanged losartan (losartan 50 mg oral tablet) 1 tab(s) by mouth Once a day Duration: 90 Days Please take this list to your next doctor s visit. Bring all medications you take, including over the counter medications, herbals and other supplements with you to your doctor s visit. Patients and families are reminded to discard old lists and to update any records with all medication providers or retail pharmacies. Education Materials Shoulder Sprain A sprain is a stretching or tearing of the ligaments that hold a joint together. A sprain may take up to 8 weeks to fully heal, depending on how severe it is. Moderate to severe shoulder sprains are treated with a sling or shoulder immobilizer. Minor sprains can be treated without any special support. Home care The following guidelines will help you care for your injury at home: If a sling was given to you, leave it in place for the time advised by your healthcare provider. Ifyou aren t sure how long to wear it, ask for advice. If the sling becomes loose, adjust it so that your forearm is level with the ground. Your shoulder should feel well supported. Put an ice pack on the injured area for 20 minutes every 1 to 2 hours the first day. You can make your own ice pack by putting ice cubes in a plastic bag. A bag of frozen peas or something similar works well too. Wrap the bag in a thin towel. Continue with ice packs 3 to 4 times a day for the next 2 to 3 days. Then use the pack as needed to ease pain and swelling. You may use acetaminophen or ibuprofen to control pain, unless another pain medicine was prescribed. If you have chronic liver or kidney disease, talk with your healthcare provider before using thesemedicines. Also talk with your provider if you ve had a stomach ulcer or gastrointestinal bleeding. Shoulder joints become stiff if left in a sling for too long. You should start range of motion exercises about 7 to 10 days after the injury. Talk with your provider to find out what type of exercises to do and how soon to start. Follow-up care Follow up with your healthcare provider, or as advised. Any X-rays you had today don t show any broken bones, breaks, or fractures. Sometimes fractures dont show up on the first X-ray. Bruises and sprains can sometimes hurt as much as a fracture. These injuries can take time to heal completely. If your symptoms don t improve or they get worse, talk with your provider. You may need a repeat X-ray or other treatments. When to seek medical advice Call your healthcare provider right away if any of these occur: Shoulder pain or swelling in your arm that gets worse Fingers become cold, blue, numb, or tingly Large amount of bruising of the shoulder or upper arm Fever or chills [id number] [employer] [address] [place] [address], [place] [address]. All rights reserved. This information is not intended as a substitute for professional medical care. Always follow yourhealthcare professional's instructions. Shoulder Sprain A sprain is a stretching or tearing of the ligaments that hold a joint together. A sprain may take up to 8 weeks to fully heal, depending on how severe it is. Moderate to severe shoulder sprains are treated with a sling or shoulder immobilizer. Minor sprains can be treated without any special support. Home care The following guidelines will help you care for your injury at home: If a sling was given to you, leave it in place for the time advised by your healthcare provider. Ifyou aren t sure how long to wear it, ask for advice. If the sling becomes loose, adjust it so that your forearm is level with the ground. Your shoulder should feel well supported. Put an ice pack on the injured area for 20 minutes every 1 to 2 hours the first day. You can make your own ice pack by putting ice cubes in a plastic bag. A bag of frozen peas or something similar works well too. Wrap the bag in a thin towel. Continue with ice packs 3 to 4 times a day for the next 2 to 3 days. Then use the pack as needed to ease pain and swelling. You may use acetaminophen or ibuprofen to control pain, unless another pain medicine was prescribed. If you have chronic liver or kidney disease, talk with your healthcare provider before using thesemedicines. Also talk with your provider if you ve had a stomach ulcer or gastrointestinal bleeding. Shoulder joints become stiff if left in a sling for too long. You should start range of motion exercises about 7 to 10 days after the injury. Talk with your provider to find out what type of exercises to do and how soon to start. Follow-up care Follow up with your healthcare provider, or as advised. Any X-rays you had today don t show any broken bones, breaks, or fractures. Sometimes fractures dont show up on the first X-ray. Bruises and sprains can sometimes hurt as much as a fracture. These injuries can take time to heal completely. If your symptoms don t improve or they get worse, talk with your provider. You may need a repeat X-ray or other treatments. When to seek medical advice Call your healthcare provider right away if any of these occur: Shoulder pain or swelling in your arm that gets worse Fingers become cold, blue, numb, or tingly Large amount of bruising of the shoulder or upper arm Fever or chills [phone] [employer] [address] [place] [address], [place] [address]. All rights reserved. This information is not intended as a substitute for professional medical care. Always follow yourhealthcare professional's instructions. Additional Information VACCINATE! IT SAVES LIVES! Members of the community who have not yet received the COVID-19 vaccine and would like to receive it can visit one of [facility] vaccine clinics. There are many vaccine clinic locations within the [facility]. For locations and available times, please visit www.gettheshot.coronavirus.[place].gov/. It is important to note that some COVID mobile vaccine clinics are held outdoors and may be canceled in rainy or stormy conditions. To learn more about pediatric vaccinations (ages 5-11), we invite you to visit the [facility] webpage. https://www.[employer].org/pages/3883-Aloud-Hafrheiwhws-Gmlrumqagk-Geojp-Qgm stions.htmlTo learn more about the COVID-19 vaccine, we invite you to visit the CDC website for a list of frequently asked questions. https://www.cdc.gov/coronavirus/2019-ncov/vaccines/faq.html [facility] Patient Portal Access Instructions: Stay connected with your healthcare team and access your personal medical information anytime with the [facility] Patient Portal. If you would like a full copy of your medical records please contact the [facility] Medical Records Department Thursday through Thursday between 8a.m. and 4:30p.m. Please follow the directions below to access the portal: 1.Access the email account you provided upon registration to the hospital.2.Look for an invitation email from [facility].3.Open the email and access the invitation link: Accept Invitation to [facility]4.Fill in the required allen to create your account. Sign into [email or web address] with your username and password that you created in the above steps to stay up to date. You can then view a summary of results, a summary of your visits, and the ability to download your summaries to your computer or send the information securely to a physician. Remember that your healthcare information is confidential, so carefully consider who you will allow to register on the [facility] Patient Portal for access to your information. You can also access the [facility] Patient Portal on the [employer]. Simply click on Health Records under HealthData and then click on the [facility] logo. HOW TO SAFELY DISPOSE OF PRESCRIPTION MEDICATIONS Please use one of the following methods to safely dispose of your unused medications. 1.Use a drug disposal kit: the drug disposal pouch allows you to safely discard your old and unuseddrugs. Ask your nurse to give you one when you are discharged.2.Visit a local take-back location: Many local pharmacies and police departments have programs that collect old and unwanted prescriptiondrugs. Call your local pharmacy or go to http://[employer].Tweetflow/5L3Yf8j to find one close to you.3.Make use of household items: Use cat litter or old coffee grounds to dispose medications if other options arenot available. Mix your drugs with these household products, seal them in an airtight container andthrow it into the garbage. Call [facility]: [phone] to be sure your drugs can be disposed of in this way. Some medicines may require a different approach.4.Never flush your medications down the toilet. IF YOU HAVE BEEN PRESCRIBED AN OPIOIDS FOR PAIN If you have been prescribed an opioid (such as hydrocodone, oxycodone or morphine), it is critical to understand the possible side effects and risks of opioid pain medications. Even when taken as directed, opioids can have several side effects including: Tolerance, meaning you might need to take more of a medication for the same pain relief. Nausea, vomiting and/or constipation. Sleepiness, dizziness, dry mouth, confusion, depression or itching. Physical dependence, meaning you have withdrawal symptoms when a medication is stopped ? this can develop within a few days. KNOW YOUR RESPONSIBILITIES It is important to know exactly how much and how often to take the opioid pain medications you are prescribed. Never take opioids in higher amounts or more often than prescribed. Do not combine opioids with alcohol or other drugs that cause drowsiness, such as benzodiazepines, also known as benzos,including diazepam and alprazolam, muscle relaxants or sleep aids. Never sell or share prescriptionopioids. This is illegal. Store opioids in a secure place and out of reach of others (including children, family, friends and visitors). The last page(s) of this document has been signed and retained as a CHART COPY Signatures Patient Education Materials Shoulder Sprain Shoulder Sprain Medication Leaflets My discharge plan and instructions have been reviewed and explained to me and IROHAN STEVEN R understand my current condition and have read and understand these discharge instructions. I have received a written copy of the plan/instructions. If I have questions, I am aware that I should contactmy doctor. 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 HISTORY: ORDERING SYSTEM PROVIDED HISTORY: Reason for Exam: fall FINDINGS: Mild degenerative changes are present at the AC and glenohumeral joints. The Y-view is compromised by positioning. There is no definite fracture or dislocation identified. IMPRESSION: No acute fracture seen. Interpreted by: Leander Esquivel MD Preliminary Report By: Leander Esquivel MD Electronically signed By Leander Esquivel MD Dictated Date: 07/18/2023 11:13:10 AM Prelim Date: 07/18/2023 11:13:46 AM Sign Date: 07/18/2023 11:13:46 AM [facility] Discharge instructions Patient Education 07/10/2023 07:09:34 ED Moderate (Conscious) Sedation (06/2018) (CUSTOM) Adult Moderate (Conscious) Sedation Discharge Instructions Refer to this sheet in the next few weeks. These instructions provide you with information on caring for yourself after your procedure. Your health care provider may also give you more specific instructions. Your treatment has been planned according to current medical practices, but problems sometimes occur. Call your health care provider if you have any problems or questions after your procedure. WHAT TO EXPECT AFTER THE PROCEDURE After your procedure: You may feel sleepy, clumsy, and have poor balance for several hours. Vomiting may occur if you eat too soon after the procedure. HOME CARE INSTRUCTIONS Do not participate in any activities where you could become injured for at least 24 hours. Do not: ? Drive. ? Swim. ? Ride a bicycle. ? Operate heavy machinery. ? Cook. ? Use power tools. ? Climb ladders. ? Work from a high place. Do not make important decisions or sign legal documents until you are improved. If you vomit, drink water, juice, or soup when you can drink without vomiting. Make sure you have little or no nausea before eating solid foods. Only take roet-jzi-zxtsoqo or prescription medicines for pain, discomfort, or fever as directed by your health care provider. Make sure you and your family fully understand everything about the medicines given to you, including what side effects may occur. You should not drink alcohol, take sleeping pills, or take medicines that cause drowsiness for at least 24 hours. If you smoke, do not smoke without supervision. If you are feeling better, you may resume normal activities 24 hours after you were sedated. Keep all appointments with your health care provider. SEEK MEDICAL CARE IF: Your skin is pale or bluish in color. You continue to feel nauseous or vomit. Your pain is getting worse and is not helped by medicine. You have bleeding or swelling. You are still sleepy or feeling clumsy after 24 hours. SEEK IMMEDIATE MEDICAL CARE IF: You develop a rash. You have difficulty breathing. You develop any type of allergic problem. You have a fever. MAKE SURE YOU: Understand these instructions. Will watch your condition. Will get help right away if you are not doing well or get worse. Document Released: 05/24/2014 Document Reviewed: 05/24/2014 ExitCare Patient Information 2015 [employer]. This information is not intended to replace advicegiven to you by your health care provider. Make sure you discuss any questions you have with your health care provider. 07/10/2023 06:27:57 Dislocation: Shoulder (Reduced) Dislocation: Shoulder (Reduced) A shoulder is dislocated when a strong force injures, and possibly tears the ligaments that hold the shoulder joint together. The bones that make up the joint then move apart and become stuck out of place. The joint must be put back in place. Then it will take several weeks for the shoulder to heal. This injury may weaken the ligaments. Weakened ligaments put you at risk for another dislocation. Another dislocation can happen even if you are hit with less force. Shoulder dislocation is treated with a special type of arm sling called a shoulder immobilizer. This keeps your arm close to your body. This stops the shoulder from dislocating again while the ligaments heal. After a few weeks, you may start an exercise program. This will gradually bring back your r pxfe-gy-fsjzmg and shoulder strength. It will also lower your risk for another dislocation. Home care Follow these tips for taking care of yourself at home: Until your next doctor visit, wear your shoulder immobilizer at all times. Don t take it off at night to sleep. This is because it s possible to dislocate your arm again in your sleep. You can take it off to bathe or dress. But don t move your arm away from your body. Keep your arm in the same position that the sling was holding it in until you put the sling back on. During your next visit, ask your doctor how long you should wear the sling. Apply an ice pack over the injured area for 20 minutes every 1 to 2 hours the first day. You can make an ice pack by putting ice cubes in a plastic bag. Wrap the bag in a towel before putting it on your shoulder. Continue with ice packs 3 to 4 times a day for the next 2 to 3 days. Then use the ice as needed to relieve pain and swelling. You may use acetaminophen or ibuprofen to control pain, unless another pain medicine was prescribed. If you have chronic liver or kidney disease or ever had a stomach ulcer or gastrointestinal bleeding, talk with your doctor before using these medicines. Don t take part in sports or physical education classes until your doctor says it s OK. Follow-up care Follow up with your healthcare provider, or as advised. You shouldn t wear your shoulder immobilizer or sling for more than a few weeks without taking it off. Keeping it on for a longer time may limit your bhuse-of-ulgslm at the shoulder joint. If you have had several dislocations of the same shoulder, you may have permanent damage to the ligaments. Ask an orthopedic doctor about surgery to prevent another dislocation. When to seek medical advice Call your healthcare provider right away if any of these occur: Another dislocation of your shoulder Swelling or pain in the shoulder or arm that gets worse Your fingers become cold, blue, numb or tingly Fever or chills [phone] [employer]. [address] [place] [address], [place] [address]. All rights reserved. This information is not intended as a substitute for professional medical care. Always follow yourhealthcare professional's instructions. Follow Up Care 07/10/2023 05:15:41 With:JENNIFER BRASHER MD Address: [address] [place] [address] & [place] [address]- [phone] When:2-4 days [facility] 11-24-2023 Note Discharge Instructions Thank you for allowing [facility] to assist you with your healthcare needs. The following is importantdischarge information regarding your hospital visit. Diagnosis from Today's Visit Shoulder dislocation Shoulder injury - Minor What to Do Next Instructions from Your Care Team Discharge Return to Work, School, or Sports (Return to Work, School, or Sports) - Ordered -- May return to: work, may return to work when cleared by orthopedic surgery, 07/10/23 6:27:00 EST Post Acute Orders No qualifying data available. You Need to Schedule the Following Appointments Follow Up with JENNIFER BRASHER MD When Within 2-4 days Where: [address] [place] [address] & [place] [address]- [phone] Allergies NKA Medications Please ask your primary doctor or pharmacist before taking any other medication not listed, including over the counter drugs, herbal medications, vitamins and or supplements as they may interact withyour home medications. What How Much When Why Instructions Last Dose Unchanged cyanocobalamin (Vitamin B12 50 mcg oral tablet) 1 tab(s) by mouth Once a day Unchanged LORazepam (Ativan 1 mg oral tablet) 1 tab(s) by mouth Three (3) times a day Anxiety, generalized Duration: 30 Days Unchanged losartan (losartan 50 mg oral tablet) 1 tab(s) by mouth Once a day Duration: 90 Days Please take this list to your next doctor s visit. Bring all medications you take, including over the counter medications, herbals and other supplements with you to your doctor s visit. Patients and families are reminded to discard old lists and to update any records with all medication providers or retail pharmacies. Education Materials Adult Moderate (Conscious) Sedation Discharge Instructions Refer to this sheet in the next few weeks. These instructions provide you with information on caring for yourself after your procedure. Your health care provider may also give you more specific instructions. Your treatment has been planned according to current medical practices, but problems sometimes occur. Call your health care provider if you have any problems or questions after your procedure. WHAT TO EXPECT AFTER THE PROCEDURE After your procedure: You may feel sleepy, clumsy, and have poor balance for several hours. Vomiting may occur if you eat too soon after the procedure. HOME CARE INSTRUCTIONS Do not participate in any activities where you could become injured for at least 24 hours. Do not: ? Drive. ? Swim. ? Ride a bicycle. ? Operate heavy machinery. ? Cook. ? Use power tools. ? Climb ladders. ? Work from a high place. Do not make important decisions or sign legal documents until you are improved. If you vomit, drink water, juice, or soup when you can drink without vomiting. Make sure you have little or no nausea before eating solid foods. Only take rcgq-bal-qrafybp or prescription medicines for pain, discomfort, or fever as directed by your health care provider. Make sure you and your family fully understand everything about the medicines given to you, including what side effects may occur. You should not drink alcohol, take sleeping pills, or take medicines that cause drowsiness for at least 24 hours. If you smoke, do not smoke without supervision. If you are feeling better, you may resume normal activities 24 hours after you were sedated. Keep all appointments with your health care provider. SEEK MEDICAL CARE IF: Your skin is pale or bluish in color. You continue to feel nauseous or vomit. Your pain is getting worse and is not helped by medicine. You have bleeding or swelling. You are still sleepy or feeling clumsy after 24 hours. SEEK IMMEDIATE MEDICAL CARE IF: You develop a rash. You have difficulty breathing. You develop any type of allergic problem. You have a fever. MAKE SURE YOU: Understand these instructions. Will watch your condition. Will get help right away if you are not doing well or get worse. Document Released: 05/24/2014 Document Reviewed: 05/24/2014 [facility] Patient Information 2015 [facility]. This information is not intended to replace advicegiven to you by your health care provider. Make sure you discuss any questions you have with your health care provider. Dislocation: Shoulder (Reduced) A shoulder is dislocated when a strong force injures, and possibly tears the ligaments that hold the shoulder joint together. The bones that make up the joint then move apart and become stuck out of place. The joint must be put back in place. Then it will take several weeks for the shoulder to heal. This injury may weaken the ligaments. Weakened ligaments put you at risk for another dislocation. Another dislocation can happen even if you are hit with less force. Shoulder dislocation is treated with a special type of arm sling called a shoulder immobilizer. This keeps your arm close to your body. This stops the shoulder from dislocating again while the ligaments heal. After a few weeks, you may start an exercise program. This will gradually bring back your r mfxs-sx-ujjrej and shoulder strength. It will also lower your risk for another dislocation. Home care Follow these tips for taking care of yourself at home: Until your next doctor visit, wear your shoulder immobilizer at all times. Don t take it off at night to sleep. This is because it s possible to dislocate your arm again in your sleep. You can take it off to bathe or dress. But don t move your arm away from your body. Keep your arm in the same position that the sling was holding it in until you put the sling back on. During your next visit, ask your doctor how long you should wear the sling. Apply an ice pack over the injured area for 20 minutes every 1 to 2 hours the first day. You can make an ice pack by putting ice cubes in a plastic bag. Wrap the bag in a towel before putting it on your shoulder. Continue with ice packs 3 to 4 times a day for the next 2 to 3 days. Then use the ice as needed to relieve pain and swelling. You may use acetaminophen or ibuprofen to control pain, unless another pain medicine was prescribed. If you have chronic liver or kidney disease or ever had a stomach ulcer or gastrointestinal bleeding, talk with your doctor before using these medicines. Don t take part in sports or physical education classes until your doctor says it s OK. Follow-up care Follow up with your healthcare provider, or as advised. You shouldn t wear your shoulder immobilizer or sling for more than a few weeks without taking it off. Keeping it on for a longer time may limit your zewzn-gu-urkhyt at the shoulder joint. If you have had several dislocations of the same shoulder, you may have permanent damage to the ligaments. Ask an orthopedic doctor about surgery to prevent another dislocation. When to seek medical advice Call your healthcare provider right away if any of these occur: Another dislocation of your shoulder Swelling or pain in the shoulder or arm that gets worse Your fingers become cold, blue, numb or tingly Fever or chills [phone] [employer]. [address] [place] [address]. All rights reserved. This information is not intended as a substitute for professional medical care. Always follow yourhealthcare professional's instructions. Additional Information VACCINATE! IT SAVES LIVES! Members of the community who have not yet received the COVID-19 vaccine and would like to receive it can visit one of [facility] vaccine clinics. There are many vaccine clinic locations within the [facility]. For locations and available times, please visit www.gettheshot.coronavirus.[place].gov/. It is important to note that some COVID mobile vaccine clinics are held outdoors and may be canceled in rainy or stormy conditions. To learn more about pediatric vaccinations (ages 5-11), we invite you to visit the [facility] webpage. https://www.[facility].org/pages/5345-Pkwcg-Bztvdahuiwp-Eiwivaqlrp-Qmnpa-Ilk stions.htmlTo learn more about the COVID-19 vaccine, we invite you to visit the CDC website for a list of frequently asked questions. https://www.cdc.gov/coronavirus/2019-ncov/vaccines/faq.html [facility] Patient Portal Access Instructions: Stay connected with your healthcare team and access your personal medical information anytime with the [facility] Patient Portal. If you would like a full copy of your medical records please contact the [facility] Medical Records Department Thursday through Thursday between 8a.m. and 4:30p.m. Please follow the directions below to access the portal: 1.Access the email account you provided upon registration to the [facility].2.Look for an invitation email from [facility].3.Open the email and access the invitation link: Accept Invitation to [employer]4.Fill in the required allen to create your account. Sign into [email or web address] with your username and password that you created in the above steps to stay up to date. You can then view a summary of results, a summary of your visits, and the ability to download your summaries to your computer or send the information securely to a physician. Remember that your healthcare information is confidential, so carefully consider who you will allow to register on the [facility] for access to your information. You can also access the [facility] Patient Portal on the [employer]. Simply click on Health Records under [employer] and then click on the [employer] logo. HOW TO SAFELY DISPOSE OF PRESCRIPTION MEDICATIONS Please use one of the following methods to safely dispose of your unused medications. 1.Use a drug disposal kit: the drug disposal pouch allows you to safely discard your old and unuseddrugs. Ask your nurse to give you one when you are discharged.2.Visit a local take-back location: Many local pharmacies and police departments have programs that collect old and unwanted prescriptiondrugs. Call your local pharmacy or go to http://[employer].Tweetflow/7O3Fw4z to find one close to you.3.Make use of household items: Use cat litter or old coffee grounds to dispose medications if other options arenot available. Mix your drugs with these household products, seal them in an airtight container andthrow it into the garbage. Call [facility]: [phone] to be sure your drugs can be disposed of in this way. Some medicines may require a different approach.4.Never flush your medications down the toilet. IF YOU HAVE BEEN PRESCRIBED AN OPIOIDS FOR PAIN If you have been prescribed an opioid (such as hydrocodone, oxycodone or morphine), it is critical to understand the possible side effects and risks of opioid pain medications. Even when taken as directed, opioids can have several side effects including: Tolerance, meaning you might need to take more of a medication for the same pain relief. Nausea, vomiting and/or constipation. Sleepiness, dizziness, dry mouth, confusion, depression or itching. Physical dependence, meaning you have withdrawal symptoms when a medication is stopped ? this can develop within a few days. KNOW YOUR RESPONSIBILITIES It is important to know exactly how much and how often to take the opioid pain medications you are prescribed. Never take opioids in higher amounts or more often than prescribed. Do not combine opioids with alcohol or other drugs that cause drowsiness, such as benzodiazepines, also known as benzos,including diazepam and alprazolam, muscle relaxants or sleep aids. Never sell or share prescriptionopioids. This is illegal. Store opioids in a secure place and out of reach of others (including children, family, friends and visitors). The last page(s) of this document has been signed and retained as a CHART COPY Signatures Patient Education Materials ED Moderate (Conscious) Sedation (06/2018) (CUSTOM) Dislocation: Shoulder (Reduced) Medication Leaflets My discharge plan and instructions have been reviewed and explained to me and I,JENNIFER YORK understand my current condition and have read and understand these discharge instructions. I have received a written copy of the plan/instructions. If I have questions, I am aware that I should contactmy doctor. 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 Alignment is now normal. No fracture of humeral head or glenoid is detected. Interpreted by: Luis Morales MD Preliminary Report By: Luis Morales MD Electronically signed By Luis Morales MD Dictated Date: 07/10/2023 7:20:51 AM Prelim Date: 07/10/2023 7:21:59 AM Sign Date: 07/10/2023 7:21:59 AM Ordering Provider: [facility]11-24-2023 Note ORIGINAL EXAMINATION: TWO XRAY VIEWS OF THE RIGHT SHOULDER 07/10/2023 7:04 am COMPARISON: Right shoulder x-ray on 07/10/2023. HISTORY: ORDERING SYSTEM PROVIDED HISTORY: Reason for Exam: s/p reduction FINDINGS/IMPRESSION: There is persistent anterior inferior dislocation of right humeral head from the glenohumeral joint. No fracture is detected. Interpreted by: Luis Morales MD Preliminary Report By: Luis Morales MD Electronically signed By Luis Morales MD Dictated Date: 07/10/2023 7:17:45 AM Prelim Date: 07/10/2023 7:19:13 AM Sign Date: 07/10/2023 7:19:13 AM Ordering Provider: [facility]11-24-2023 Note ORIGINAL EXAMINATION: 3 XRAY VIEWS OF THE RIGHT SHOULDER 07/10/2023 6:01 am COMPARISON: None. HISTORY: ORDERING SYSTEM PROVIDED HISTORY: Reason for Exam: fall FINDINGS: The right humeral head is displaced anteriorly and inferiorly from the glenoid. No fracture of humeral head or glenoid is detected on this exam. Acromioclavicular alignment is normal. Adjacent ribs are intact. IMPRESSION: Anterior inferior dislocation of right glenohumeral joint. Interpreted by: Luis Morales MD Preliminary Report By: Luis Morales MD Electronically signed By Luis Morales MD Dictated Date: 07/10/2023 6:03:57 AM Prelim Date: 07/10/2023 6:05:42 AM Sign Date: 07/10/2023 6:05:42 AM Ordering Provider: [facility]05-30-2023 Evaluation + Plan note Future Scheduled Tests Radiology* XR Spine Lumbar W/Obliques 4 Views 01/13/23 [facility] Evaluation + Plan note Future Appointments Appointment Date:09/09/2021 09:50:00 AM Scheduled Provider:СВЕТЛАНА DURAN DO Location:[facility] Appointment Type:PC OV Appointment Date:09/23/2021 10:00:00 AM Scheduled Provider:SUMANTH TRACEY Location[facility] Appointment Type:CV OV [facility] Evaluation + Plan note Future Appointments Appointment Date:03/11/2022 10:30:00 AM Scheduled Provider:JENNIFER VILLASEÑOR MD Location:[facility] Appointment Type:PC Wellness Annual Future Scheduled Tests Laboratory* Prostate Specific Antigen 09/10/21 Radiology* XR Hand Minimum 3 Views Left 01/08/22 [facility] Evaluation + Plan note Future Appointments Appointment Date:09/16/2023 01:00:00 PM Scheduled Provider: Location:[facility] Appointment Type:CT Head or Brain w/ Contrast Appointment Date:09/16/2023 02:00:00 PM Scheduled Provider: Location:[facility] Appointment Type:CT Shoulder w/o Contrast Right Appointment Date:09/22/2023 04:00:00 PM Scheduled Provider:JENNIFER VILLASEÑOR MD Location:[facility] Appointment Type:PC OV Future Scheduled Tests Radiology* CT Head or Brain w/ Contrast 09/16/23 * CT Shoulder w/o Contrast Right 09/16/23 * XR Spine Lumbar W/Obliques 4 Views 01/13/23 [facility] Evaluation + Plan note Future Appointments Appointment Date:09/22/2023 04:00:00 PM Scheduled Provider:JENNIFER VILLASEÑOR MD Location:[facility] Appointment Type:PC OV Future Scheduled Tests Radiology* XR Spine Lumbar W/Obliques 4 Views 01/13/23 [facility] Evaluation + Plan note Future Appointments Appointment Date:06/17/2024 08:30:00 AM Scheduled Provider:JENNIFER VILLASEÑOR MD Location:[facility] Appointment Type:PC OV Follow Up Appointment Date:07/06/2024 10:00:00 AM Scheduled Provider: Location:[facility] Appointment Type:IR Facet Injection Future Scheduled Tests Radiology* IR Facet Injection 07/06/24 [facility] evaluation note* Diagnosis Onset Date Resolution Status Alcohol withdrawal acute [facility] Work Phone: Evaluation noteNo assessment information available [facility] Work Phone: History and physical note Author Taylor Kaur [facility] December 19, 2023 1:12am Note Date/Time December 19, 2023 12:47a m [facility] Medical Records Department [address] [place] [address] H&P Exam - Hospitalist 12/19/23 0043 MR#: [id number] Acct: [id number] Name: JENNIFER YORK Rep #:[id number] : [id number] 63 From: Taylor Kaur MD PCP: Dr. Jennifer Villaseñor MD Status:REG ER Location: ED HPI - General General Date of Admission: 12/19/23 Date of Service: 12/19/23 Chief Complaint: Confusion. HPI Narrative The patient is a 63 y/o M w/ PMHx: Chronic thrombocytopenia, HTN, Tobacco use, EtOH abuse, Anxiety and Depression, Chronic neck pain with DDD who presents to the [facility] ED on 12/18/23 noted to have been in a local drive-through with staff becoming concerned secondary to notable confusion prompting EMS call and transition to the hospital for ED evaluation. From reported information upon EDarrival patient is currently going through a divorce. Although patient is not the best historian upon arrival he was noted to be mildly tachycardic with a fever, normal blood pressure and appropriate oxygenation on room air. Followingwithdrawal treatment in the ED patient eventual able to note that last EtOH intake of vodka was 2 days prior. He was attempting to stop. Workup in the ED included T1 100.2, heart rate 112, BP 126/99, respiratory rate 17, 98% on room air--> T98.4, heart rate 89, BP 118/86, respiratory rate 18, 96% on room air following medications as noted below, CBC with WBC 4.6, hemoglobin 10.3, MCV 101.6, platelet 83 with lymphopenia, CMP with sodium 134, potassium 3.4, chloride 93, anion gap 20, glucose 131, T. bili 2.70, D bili 1.85, AST/ALT 295/93, alk phos 198, lipase 73, lactic acid 1.7, troponin 18, urinalysis with urine protein 500, urine ketones 150, occult blood 25, positive nitrate, urine bilirubin 6, urine urobilinogen 12, leukocyte Estrace 25 with no marked urine bacteria or urine WBCs, ethyl alcohol 4, urine drug screen negative, chest x-raywith 11 mm right lung base nodular opacity with chest otherwise with no acute cardiopulmonary findings, CT brain with age-related changes with no acute evidence of intracranial finding with chronic sinus disease, EKG with sinus tachycardia with no acute evidence of ischemia. In the ED patient ministered 1 L normal saline, Ativan 2 mg IV x 1, phenobarbital 97.2 mg p.o. x 1, Zofran 4 mgIV x 1, Tylenol 650 mg p.o. x 1. Patient also administered rocephin 1 gm IV x 1 for possible UTI coverage. PFSH Medical History Anxiety and depression Chronic neck pain ETOH abuse Thrombocytopenia Tobacco use Home Medications losartan 50 mg tablet 1 tab PO DAILY 11/21/19 [History Last Taken Unknown] Allergy/AdvReac Type Severity Reaction Status Date / Time No Known Allergies Allergy Verified 12/18/23 22:18 other (Both parents are living he notes. He notes they take medications but he is unsure of medical diagnosis history.) Surgical History No history of previous surgery Social History household members: family Smoking Status: Current every day smoker tobacco type: cigarettes Smoking packsper day: 0.5 Smoking cigarettes per day: 10.0 alcohol intake: current alcohol intake frequency: 3 or more drinks per day Alcohol type: hard liquor details: Usually drinks daily, vodka, unclear exact amount, last drink 2 days prior. substance use type: does not use ROS ROS Narrative Patient becoming more alert but remains confused, not completely oriented, answering very slowly and will trial off during responses. Review of Systems ROS Unobtainable: due to encephalopathy Vital Signs Vital Signs Vital Signs: 12/18/23 22:03 12/19/23 00:03 Temperature 100.2 F H 98.4 F Temperature Source Temporal Temporal Pulse Rate 112 H 89 Respiratory Rate 17 18 Blood Pressure 126/99 H 118/86 H Blood Pressure Mean 108 96 Pulse Ox 98 96 Oxygen Delivery Method Room Air Room Air Weight Weight: 176 lb Body Mass Index (BMI) 23.2 Physical Exam Narrative Physical Examination: General: Awakens to stimuli but very slow responses, fatigued, not markedly alert, oriented eventually to place, self, given correct year but wrong month, lethargic, following some commands but not all, laying in the ED bed, disheveledappearance. Skin: Normal color, normal turgor, no icterus, no cyanosis except for staged ecchymoses, abrasions, very disheveled appearance. HEENT: AT/NC, EOMI, PERRLA, dry MM, no carotid bruits or JVD noted. Lungs: Diminished, greater bases, appropriate effort, no evidence of any distress, no rales, ronchi or wheezing. Heart: Improved, regular rate and rhythm; no gallop, rub audible. Abdomen: Soft, NTTP, ND, hyperactive BS, no markedly appreciated HSM. Extremities: No cyanosis, no clubbing, no marked peripheral edema. Neurological: Awakens to stimuli but very slow responses, fatigued, not markedlyalert, oriented eventually to place, self, given correct year but wrong month, lethargic, following some commands but not all, laying in the ED bed, disheveledappearance, cognitive function improving since ED arrival but still not baselineintact; pupils equally reactive to light and accommodation, cranial nerves grossly normal, moving all 4 extremities, no focal deficits, strength moderatelyto severely globally decreased. Psychiatric: Affect appears fatigued, lethargic, no acute evidence of depressiveor anxiety feelings but does have underlying history. Results Lab / Micro Data 12/18/23 22:44 12/18/23 22:44 Labs: Laboratory Results - last 24 hr 12/18/23 22:44: WBC 4.6, RBC 3.04 L, Hgb 10.3 L, Hct 30.9 L, MCV 101.6 H, MCH 33.9 H, MCHC 33.3, RDW Std Deviation 55.4 H, RDW Coeff of Saloni 14.8 H, Plt Count TNP, MPV 11.6, Immature Gran % (Auto) 0.900, Neut % (Auto) 76.9 H, Lymph % (Auto) 9.5 L, [place] % (Auto) 12.5 H, Eos % (Auto) 0.0, Baso % (Auto) 0.2, Absolute Neuts (auto) 3.6, Absolute Lymphs (auto) 0.44 L, Nucleated RBC % 0, Differential Comment SEE COMMENT, Platelet Estimate ADEQUATE, RBC Morphology N CHROM, Hypochromasia 1+, Anisocytosis 1+, Macrocytosis 1+, Ovalocytes RARE, Sodium 134 L, Potassium 3.4 L, Chloride 93 L, Carbon Dioxide 21.0, Anion Gap 20 H, BUN 12, Creatinine 1.01, Estim Creat Clear Calc 84.53, Est GFR (MDRD) Af Amer96, Est GFR (MDRD) Non-Af 79, BUN/Creatinine Ratio 11.9, Glucose 131 H, Lactic Acid 1.7, Calcium 8.8, Total Bilirubin 2.70 H, Direct Bilirubin 1.85 H, AST 295 H, ALT 93 H, Alkaline Phosphatase 198 H, Troponin I High Sens 18, Total Protein 7.7, Albumin 3.0 L, Globulin 4.7 H, Lipase 73, Ethyl Alcohol 4.0 12/18/23 23:02: Urine Color Scarlet, Urine Clarity Clear, Urine pH 6.0, Ur Specific [place] 1.020, Urine Protein 500 H, Urine Glucose (UA) Normal, Urine Ketones 150 A*, Urine Occult Blood 25 H, Urine Nitrite Positive H, Urine Bilirubin 6 H, Urine Urobilinogen 12 H, Ur Leukocyte Esterase 25 H, Urine RBC 0 SEEN, Urine WBC 0-5 SEEN, Ur Squamous Epith Cells 0 SEEN, Urine Bacteria 0 SEEN,Hyaline Casts 10-25 SEEN, Urine Mucus 0 SEEN, Urine Opiates Screen NEGATIVE, Urine Methadone Screen NEGATIVE, Ur Barbiturates Screen NEGATIVE, Ur Phencyclidine Scrn NEGATIVE, Ur Amphetamines Screen NEGATIVE, MDMA (Ecstasy) Screen NEGATIVE, U Benzodiazepines Scrn NEGATIVE, Urine Cocaine Screen NEGATIVE,U Cannabinoids Screen NEGATIVE, Ur Drug Screen Comment Micro: Microbiology 12/18/23 23:40 Mucosa - Nose SARS-CoV-2, Influenza & RSV (PCR) - Final Imaging Radiology Impression Brain CT 12/18/23 22:36 IMPRESSION: Age-related changes as above, without evidence of acute intracranial hemorrhage in this noncontrast head CT. Sinus disease. Electronically Signed: Neri Anderson MD at 23:39 EDT , Chest X-Ray 12/18/23 22:45 IMPRESSION: 11 mm right lung base nodular opacity, to include pulmonary nodule. Recommend comparison with previous imaging to document long-term stability versus follow-up evaluation as per Fleischner guidelines as neoplastic process is not excluded. Chest with no acute disease. Electronically Signed: Neri Anderson MD at 23:36 EDT , Assessment & Plan Assessment/Plan (1) Alcohol withdrawal: PLAN: Plan The patient is a 63 y/o M w/ PMHx: Chronic thrombocytopenia, HTN, Tobacco use, EtOH abuse, Anxiety and Depression, Chronic neck pain with DDD who presents to the [facility] ED on 12/18/23 noted to have been in a local drive-through with staff becoming concerned secondary to notable confusion prompting EMS call and transition to the hospital for ED evaluation. #1. Acute encephalopathy, suspected primarily EtOH withdrawal as noted #2 but given encephalopathy, poor historian cannot absolutely rule out SIRS infectious source but could certainly have VS set including fever secondary to EtOH withdrawal: Will admit to [facility] upon ED evaluation w/ +nitrite but otherwise nomarked LE and no urine bacteria or urine WBC, pending UCx, blood culture x 2 pending, continue IVFs, monitor I/Os, will judiciously hydrate, will obtain sputum culture, urine antigens, respiratory viral panel, procalcitonin requested. Will continue treatment as noted #2, #3, #4, #5 all contributing to this current presentation. Will maintain on fall and aspiration precautions. PT/OT/case management consulted for discharge planning. Given urine ketosis although suspect alcohol related patient does have anion gap 20 thus will obtainacetone to be cautious. #2. Acute EtOH Withdrawal with chronic alcohol abuse with concurrent evidence of alcoholic ketosis: Will continue on protocol with taper course of Phenobarbital cautiously given underlying liver abnormalities and if worsen may need to consider transition to shorter acting Ativan, will have also as needed gabapentin, Catapres, Bentyl, Vistaril, IV fluids, IV antiemetics, Tylenol as needed for pain. Will consult Case management for assistance for transition to next level of rehabilitation care. Mag, phos pending. Maintain on CIWA protocol concurrently. Will maintain on thiamine, folic acid and multivitamin. #3. Hyponatremia, hypochloremia: Admission sodium 134, chloride 93, potentiallycomponent of hypovolemia as patient has not been taking care of himself recentlyin addition to underlying alcohol abuse as etiology but previous labs although remote were normal range, will judiciously hydrate and repeat CMP in AM. #4. Hyperbilirubinemia, transaminitis, unclear chronicity compounded by underlying alcohol abuse/possibly chronic alcoholic hepatitis: Admission CMP with T. bili 2.70, D bili 1.85, AST/ALT 295/93, alk phos 198, liver ultrasound requested, will repeat CMP in a.m. and continue evaluation and treatments as noted. #5. Hypokalemia: Admission K+ 3.4, magnesium level requested, supplementation given, repeat level in AM. #6. Incidental lung nodule: Chest x-ray with noted 11 mm right lung base nodular opacity, unclear exact etiology, will need follow-up imaging possibly outpatient. #7. Macrocytic anemia, unclear exact chronicity: Admission hemoglobin 10.3, TFE516.6, baseline hemoglobin unknown is no recent comparisons but given history and alcoholism suspect chronic, last lab noted 11/21/2019 hemoglobin 14.6 at that time, vitamin B12 and folic acid levels requested, repeat CBC in the a.m. to further elucidate chronicity. #8. Anxiety and depression: Not on any regimen, given ongoing events will benefit greatly from continued counseling and potential initiation of antidepressant. #9. Chronic neck pain with degenerative disc disease: Patient from prior visitsinitially started to drink heavily secondary to pain in his neck, encourage continued outpatient follow-up with orthopedic spine to continue to evaluate possible interventions. #10. Hypertension: Continue home regimen including losartan, PRN hydralazine. #11. Chronic thrombocytopenia, alcohol abuse related: Admission platelet 83, previous to this noted 91, chronic, encourage sobriety, continue to trend CBC. #12. Tobacco Abuse: Encouraged cessation, inpatient consultation per RT, NR if desired. #13. DVT prophylaxis: SCDs, defer chemoprophylaxis given thrombocytopenia. #14. CODE status: Full Code. Charges/Coding Visit Charges Inpatient E&M: 09849 Init Hosp L3 12/19/23 0112 <Electronically signed by Taylor Kaur MD> Cosigner Signature (if applicable): CC: Dr. Taylor Kaur MD; Dr. Jennifer Villaseñor MD~ Signed [facility] Work Phone: Hospital course Narrative No data available for this section [facility] Hospital Discharge instructions No data available for this section [facility] Progress note No data available for this section [facility] Reason for referral (narrative)No reason for referral information [facility] Work Phone: Summary Purpose Family History No Family History Records Found Relationship Condition Age at Onset Recorded Date/T leonora Unknown Family History?No pertinent history Unkno wn November 21, 2019 10:20pm Advance Directives No Advanced Directives Records Found Advance Directive Response Recorded Date/ Time Living Will No December 19, 2023 1: 55am Power of Coupon Clerk No December 19, 2023 1:55am Advance Directive Response Recorded Date/ Time Do you have a [facility] Power of Coupon Clerk? No February 03, 2025 11:57am Chief Complaint and Reason for Visit Chief Complaint CONFUSION ETOH WITHDRAWL Reason for Visit Alcohol withdrawal Chief Complaint CONFUSION ETOH WITHDRAWL ETOH WITHDRAWL ETOH WITHDRAWL ETOH WITHDRAWL ETOH WITHDRAWL ETOH WITHDRAWL ETOH WITHDRAWL Reason for Visit Alcohol withdrawal Chief Complaint Admit Date fall February 03, 2025 11:5 3am Additional Source Comments (unrecognized sect ion and content) No Status Records FoundNo Status Records FoundNo Status Records FoundNo Status Records FoundNo Status Records Found INFORMATION SOURCE (unrecogn ized section and content) DATE CREATED AUTHOR 06/10/2019 [facility] Saira Heard DATE CREATED AUTHOR AUTHOR'S ORGANIZ ATION 04/13/2024 [facility] ([place]) DATE CREATED AUTHOR AUTHOR'S ORGANIZ ATION 07/17/2024 [facility] DATE CREATED AUTHOR AUTHOR'S ORGANIZ ATION 11/10/2024 [facility] DATE CREATED AUTHOR AUTHOR'S ORGANIZ ATION 02/11/2025 [facility] Care Team (unrecognized sect ion and content) Team Status: Active Member Role Status Dates Out of Town Doctor Family Provider Active Dr. Jennifer Villaseñor MD Primary Care Provider Active Team Status: Active Member Role Status Dates Dr. Jennifer Villaseñor MD Primary Care Provider Active Dr. Brendan Childs DO Emergency Provider Active Dr. Taylor Kaur MD Attending Provider Active Team Status: Active Member Role Status Dates Dr. Jennifer Villaseñor MD Primary Care Provider Active Dr. Brendan Childs DO Emergency Provider Active Dr. Taylor Kaur MD Admit Provider, Attending Prov ider Active Team Status: Active Member Role Status Dates Dr. Jennifer Villaseñor MD Primary Care Provider Active Dr. Brendan Childs DO Emergency Provider Active Dr. Taylor Kaur MD Admit Provider, Other Provider Active Dr. Janet Erazo MD Attending Provider, Other Provid er Active Team Status: Active Member Role Status Dates Dr. Jennifer Villaseñor MD Primary Care Provider Active Dr. Brendan Childs DO Emergency Provider Active Dr. Taylor Kaur MD Admit Provider, Other Provider Active Dr. Papo Rodriguez DO Attending Provider, Other Provid er Active Dr. Janet Erazo MD Other Provider Active Team Status: Inactive Member Role Status Dates Dr. Jennifer Villaseñor MD Primary Care Provider Active Dr. Brendan Childs DO Emergency Provider Active Dr. Taylor Kaur MD Admit Provider, Other Provider Active Dr. Papo Rodriguez DO Attending Provider Active Dr. Janet Erazo MD Other Provider Active Team Status: Active Member Role Status Dates Dr. Jennifer Villaseñor MD Primary Care Provider Active Team Status: Inactive Member Role Status Dates Dr. Jennifer Villaseñor MD Primary Care Provider Active Start: February 03, 2025 End: February 03, 2025 Dr. Abby Marvin DO Emergency Provider Active Start: February 03, 2025 End: February 03, 2025 Goals (unrecognized section and content) Goals may be documented in a n alternate section FOR RECORDS PERTAINING TO PATIENTS WHO ARE OR HAVE BEEN ENROLLED IN A CHEMICAL DEPENDENCY/SUBSTANCEABUSE PROGRAM, SOME INFORMATION MAY BE OMITTED. This clinical summary was aggregated from multiple sources. Caution should be exercised in using it in the provision of clinical care. This summary normalizes information from multiple sources, and as a consequence, information in this document may materially change the coding, format and clinical context of patient data. In addition, data may be omitted in some cases. CLINICAL DECISIONS SHOULD BE BASED ON THE PRIMARY CLINICAL RECORDS. [facility] provides no warranty or guarantee of the accuracy or completeness of information in this document.
--- OUTSIDE RECORDS SUMMARY | 2025-02-15 01:07 | XMS RPT_ITS | CCD ---
Author Organization [facility] Care Team Providers Care Manager Of Creative Services Name Role Phone JENNIFER VILLASEÑOR MD Primary Care Physician Dr. Jennifer Villaseñor Primary Care Provider Dr. Brendan Childs Emergency Provider Dr. Taylor Kaur Attending Provider [phone] Dr. Taylor Kaur Admit Provider Dr. Taylor Kaur Other Provider Dr. Janet Erazo Attending Provider Unavailable Dr. Janet Erazo Other Provider Unavailable Dr. Papo Rodriguez Attending Provider Dr. Papo Rodriguez Other Provider JENNIFER VILLASEÑRO MD Primary Care Unavailable NATHANIEL CARUSO DO [...] Unavailable Unavailable BENTON GARCIA DO Consulting Unavailable JNAET SOSA MD Attending Unavailable JANET SOSA MD [...] MD, Dr. Boo Primary Care Provider [phone] Dr. Abby Marvin DO Emergency Provider Jennifer [...] day(s), # 14 tab(s), 0 Refill(s), Pharmacy: [facility], Rib fracture, 187, cm, 05/26/24 13:07:00 [...] day(s), # 20 tab(s), 0 Refill(s), Pharmacy: [facility]/pharmacy #[id number], Rib fractures, 185.4, cm, 05/16/24 [...] pain, # 20 tab(s), 0 Refill(s), Pharmacy: [facility]/pharmacy #[id number], [facility] fracture, 185.4, cm, 10/01/23 8:30:00 EST, Height, [...] BID, # 60 tab(s), 0 Refill(s), Pharmacy: [facility]/pharmacy #[id number], Alcohol abuse History of encephalopathy, 185.4, cm, 10/01/23 8:30:00 EST, Height, kg, 10/01/23 8:30:00 EST, Dosing Weight Start Date: 01/02/24 Status: Ordered folic acid 1 mg oral tablet (5 sources) Start: 01-02-2024 folic acid 1 mg oral tablet Dose : 1 mg = 1 tab(s), Oral, qDay, # 90 tab(s), 0 Refill(s), Pharmacy: [facility]/pharmacy #[id number], Alcohol abuse History of encephalopathy, [...] day(s), # 30 patch(es), 0 Refill(s), Pharmacy: [facility], Rib fracture Alcoholic cirrhosis, 187, cm, 05/26/24 13:07:00 EDT, Height, 84.9, kg, 05/26/24 13:07:00 EDT, Dosing Weight Start Date: 05/26/24 Stop Date: 06/25/24 Status: Ordered meloxicam 7.5 mg oral tablet (1 source) Nonsteroidal Anti-inflammatory Drug Start: 01-08-2022 End: 01-22-2022 meloxicam 7.5 mg oral tablet Dose : 7.5 mg = 1 tab(s), Oral, BID, PRN Pain, # 28 tab(s), 0 Refill(s), Pharmacy: [facility]/pharmacy #[id number], Left hand pain, 180.3, cm, 01/08/22 11:02:00 EDT, Height Start Date: 01/08/22 Stop Date: 01/22/22 Status: Ordered Milk of Magnesia (1 source) Start: 05-17-2024 take 1 dose by mouth once daily as needed for constipation Milk of Magnesia Dose = 30 mL, Oral, qDay, PRN Constipation, 0 Refill(s) Start Date: 05/17/24 Status: Ordered Byacivwr-Ekgl-E t-Oenmhyh-Hmwz (Therapeutic-M) 9 mg iron-400 mcg Tablet (2 sources) Start: 12-25-2023 take 9 tablets by mouth once at breakfast Yubbeomy-Fxdp-Ja -Calcium-Mins (Therapeutic-M) 9 mg iron-400 mcg Tablet Active 1 {tbl} PO WITH BREAKFAST December 25, 2023 12:00am Start: 12-25-2023 Multivit-Iron- Mq-Dtfnmlj-Fxnn (Therapeutic-M) 9 mg iron-400 mcg Tablet Active 1 TABLET PO WITH BREAKFAST December 25, 2023 12:00am mupirocin 0.02 mg/mg topical ointment (1 source) RNA Synthetase Inhibitor Antibacterial Start: 09-09-2021 mupirocin 2% topical ointment Apply 1 louisa, Topical, TID, # 22 gram(s), 0 Refill(s), Pharmacy: [facility]/pharmacy #[id number], Ointment, 187, cm, 09/09/21 10:00:00 [...] qDay, # 30 tab(s), 0 Refill(s), Pharmacy: [facility]/pharmacy #[id number], Alcoholism CHECO (generalized anxiety disorder), 185.4, cm, 08/26/23 16:00:00 EST, Height, kg, 08/26/23 16:00:00 EST, Dosing Weight Start Date: 08/26/23 Status: Ordered polyethylene glycol 3350 73246 mg powder for oral solution (1 source) Osmotic Laxative Start: 05-17-2024 Miralax Powde r Packet Oral, qDay, 0 Refill(s) Start Date: 05/17/24 Status: Ordered sertraline 50 mg oral tablet (1 source) Serotonin Reuptake Inhibitor Start: 08-29-2022 Zoloft 50 mg oral tablet Dose : 50 mg = 1 tab(s), Oral, qDay, # 30 tab(s), 1 Refill(s), Pharmacy: [facility]/pharmacy #[id number], Depression Alcoholism, 186, cm, 07/31/22 16:59:00 EST, Height, kg, 07/31/22 16:59:00 EST, Dosing Weight Start Date: 08/29/22 Status: Ordered thiamine 100 mg oral tablet (5 sources) Start: 01-02-2024 thiamine 100 m g oral tablet Dose : 100 mg = 1 tab(s), Oral, Daily, # 100 tab(s), 0 Refill(s), Pharmacy: [facility]/pharmacy #[id number], Alcohol abuse History of encephalopathy, 185.4, cm, 10/01/23 8:30:00 EST, Height, kg, 10/01/23 8:30:00 EST, Dosing Weight Start Date: 01/02/24 Status: Ordered traZODone hydrochloride 100 mg oral tablet (3 sources) Serotonin Reuptake Inhibitor Start: 05-26-2024 End: 05-21-2025 traZODone 100 mg oral tablet Dose : 100 mg = 1 tab(s), Oral, qHS, # 30 tab(s), 11 Refill(s), Pharmacy: [facility], 187, cm, 05/26/24 13:07:00 EDT, Height, [...] qWeek, # 12 tab(s), 1 Refill(s), Pharmacy: [facility]/pharmacy #[id number], Alcohol abuse History of encephalopathy, 185.4, cm, [...] TID, # 90 tab(s), 0 Refill(s), Pharmacy: [facility]/pharmacy #[id number], Alcoholism CHECO (generalized anxiety disorder), [...] TID, # 90 tab(s), 1 Refill(s), [id number], Anxiety, generalized, 186, cm, 01/13/23 15:57:00 EDT, Height, 83.7, kg, 01/13/23 15:57:00 EDT, Dosing Weight Start Date: 05/05/23 Stop Date: 07/04/23 Status: Ordered Start: 11-28-2022 End: 02-26-2023 Ativan 1 mg oral tablet Dose : 1 mg = 1 tab(s), Oral, TID, # 90 tab(s), 2 Refill(s), [id number], Anxiety, generalized, 186, cm, 11/28/22 8:06:00 EDT, Height, 85.8, kg, 11/28/22 8:06:00 EDT, Dosing Weight Start Date: 11/28/22 Stop Date: 02/26/23 Status: Ordered Start: 10-16-2021 End: 11-15-2021 Ativan 1 mg oral tablet Dose : 1 mg = 1 tab(s), Oral, TID, # 90 tab(s), 0 Refill(s), Pharmacy: [facility]/pharmacy #[id number], Anxiety, generalized, 187, cm, 09/09/21 10:00:00 EST, Height, 84.4, kg, 09/09/21 10:00:00 EST, Dosing Weight Start Date: 10/16/21 Stop Date: 11/15/21 Status: Ordered Start: 06-10-2021 End: 07-10-2021 Ativan 1 mg oral tablet Dose : 1 mg = 1 tab(s), Oral, TID, # 90 tab(s), 0 Refill(s), Pharmacy: [facility]/pharmacy #[id number], Anxiety, generalized, 187, cm, 06/10/21 8:55:00 EDT, Height, 84.2, kg, 06/10/21 8:55:00 EDT, Dosing Weight Start Date: 06/10/21 Stop Date: 07/10/21 Status: Ordered losartan potassium 50 mg oral tablet (16 sources) Angiotensin 2 Receptor Bronwyn Start: 08-26-2023 End: 08-20-2024 losartan 50 mg oral tablet Dose : 50 mg = 1 tab(s), Oral, qDay, # 30 tab(s), 5 Refill(s), [id number], 185.4, cm, 10/01/23 8:30:00 EST, Height, kg, 10/01/23 8:30:00 EST, Dosing Weight Start Date: 10/01/23 Stop Date: 03/29/24 Status: Ordered Start: 07-09-2022 End: 07-04-2023 losartan 50 mg oral tablet D ose : 50 mg = 1 tab(s), Oral, qDay, # 90 tab(s), 3 Refill(s), [id number], 185, cm, 07/09/22 15:23:00 EST, Height, kg, 07/09/22 15:23:00 EST, Dosing Weight Start Date: 07/09/22 Stop Date: 07/04/23 Status: Ordered Start: 06-10-2021 End: 06-05-2022 losartan 50 mg oral tablet D ose : 50 mg = 1 tab(s), Oral, qDay, # 90 tab(s), 3 Refill(s), Pharmacy: [facility]/pharmacy #[id number], 187, cm, 06/10/21 8:55:00 EDT, [...] Other nervous system disorders (1 source) 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 Abby Marvin DO; Dr. Jennifer Villaseñor MD Signed Normal [facility] Abdomen/Pelvis W IV Cont ONL Yon 02-03-2025 Abdomen/Pelvis W IV Cont ONLY [facility] Imaging Services [address] [place], [place] [id number] Abdomen/Pelvis W IV Cont ONLY MR#: [id number] Acct: [id number] Name: JENNIFER YORK Rep #: [id number] : 1960 M 64 From: Michael Brunner MD PCP: Dr. Jennifer Villaseñor MD Status: REG ER Study: Abdomen/Pelvis W IV Cont ONLY Date of Exam: Exam# [id number] Ordering Dr: Abby Marvin DO EXAM: CT [...] fat. 6. Inguinal hernias, bilaterally. Reading Location: [facility] CC: Dr. Abby Marvin DO; Dr. Jennifer Villaseñor MD Nutrient Management Specialist: Signed Normal [facility] Absolute lymphocyte countOrd ered By: Abby Marvin on 02-03-2025 Lymphocytes Auto (Unsp spec) [#/Vol] 1.42 10*3/uL 0.83-4.51 [facility] Absolute neutrophil countOrd ered By: Abby Marvin on 02-03-2025 Neutrophils (Bld) [#/Vol] 1.6 10*3/uL Low 2.0-7.7 [facility] Alcohol, Blood (Medical)-Ser umon 02-03-2025 SERUM ETOH 335.0 mg/dL Invalid Interpretation Code <=10.0 [facility] Comment on above: Result Comment: Crit ical Result(s) Called at:02/03/2025-14:10 by: Aris Kaur to Tigre Saleem??Results read back by same. This test is for medical purposes only. The legal definition of intoxication varies according to local law. Performed By: #### L 100.0100, L500.4050, L501.9100 #### [facility] [address] [place], [place], [id number] Anion gap in Serum or Plasma Ordered By: Abby Marvin on 02-03-2025 Anion gap [Moles/Vol] 21 mmol/L High 5-15 [facility] Automated lymphocyte count a s percentage of total leukocytesOrdered By: Abby Marvin on 02-03-2025 Lymphocytes/100 WBC Auto (Unsp spec) 40.6 % -41 [facility] BUN/creatinine ratioOrdered By: Abby Marvin on 02-03-2025 Urea nitrogen/Creatinine [Mass ratio] 13.8 mg/mg 10- [facility] Basophil percentageOrdered B y: Abby Marvin on 02-03-2025 Basophils/100 WBC (Bld) 0.9 % 0-1 [facility] Bilirubin, totalOrdered By: Abby Yon on 02-03-2025 Bilirubin [Mass/Vol] 1.70 mg/dL High 0.00-1.30 [facility] Brain/Head without Contrasto n 02-03-2025 Brain/Head without Contrast [facility] Imaging Services [address], [place] [address] Brain/Head without Contrast MR#: [id number] Acct: [id number] Name: JENNIFER YORK Rep #: [id number] : 1960 M 64 From: Yony pruitt MD PCP: Dr. Jennifer Villaseñor MD Status: REG ER Study: Brain/Head without Contrast Date of Exam: 01/16 Exam# [id number] Ordering Dr: Abby Mravin DO PROCEDURE: BRAIN/HEAD WITHOUT CONTRAST 02/03/2025 REASON [...] CHRONIC CHANGES. NO ACUTE FINDINGS. Reading Location: [place] [address] CC: Dr. Abby Marvin DO; Dr. Jennifer Villaseñor MD Nutrient Management Specialist: Signed Normal [facility] CBC W/Diff, Automatedon 01-16 PLT EST MKD DEC Normal ADEQ [facility] Comment on above: Performed By: #### L 100.0100, L500.4050, L501.9100 #### [facility] [address] [place], [address] Carbon dioxide, total [Moles /volume] in Central venous bloodOrdered By: Abby Marvin on 02-03-2025 CO2 [Moles/Vol] 16.5 mmol/L Low 21.0-32.0 [facility] Chest without Contraston Chest without Contrast [facility] Imaging Services [address] [place] [address] Chest without Contrast MR#: [id number] Acct: [id number] Name: JENNIFER YORK Rep #: [id number] : 1960 M 64 From: Yony pruitt MD PCP: Dr. Jennifer Villaseñor MD Status: REG ER Study: Chest without Contrast Date of Exam: 02/03/25 Exam# [id number] Ordering Dr: Abby Marvin DO PROCEDURE: CHEST [...] Minimal amount of perisplenic fluid. [facility] CC: Dr. Abby Marvin, DO; Dr. Jennifer Villaseñor MD Nutrient Management Specialist: Signed Normal [facility] Chloride assayOrdered By: Og Marvin on 02-03-2025 Chloride [Moles/Vol] 104 mmol/L 98-108 [facility] Comprehensive Metabolic Prof ilon 02-03-2025 Albumin [Mass/Vol] 3.7 g/dL Normal 3.4-4.8 [facility] Comment on above: Performed By: #### L 100.0100, L500.4050, L501.9100 #### [facility] [address] [place], [address] Albumin/Globulin [Mass ratio] 0.7 {ratio} Low 0.9-2.4 [facility] Comment on above: Performed By: #### L 100.0100, L500.4050, L501.9100 #### [facility] [address] [place], [address] ALK PHOS 110 U/L Normal 40-129 [facility] Comment on above: Performed By: #### L 100.0100, L500.4050, L501.9100 #### [facility] [address] [place], [address] ALT [Catalytic activity/Vol] 50 U/L High <=46 [facility] Comment on above: Performed By: #### L 100.0100, L500.4050, L501.9100 #### [facility] [address] [place], [address] AST [Catalytic activity/Vol] 154 U/L High <=37 [facility] Comment on above: Performed By: #### L 100.0100, L500.4050, L501.9100 #### [facility] [address] [place], [address] Bilirubin [Mass/Vol] 1.70 mg/dL High 0.00-1.30 [facility] Comment on above: Performed By: #### L 100.0100, L500.4050, L501.9100 #### [facility] [address] [place], [address] BUN/CRE 13.8 RATIO Normal 10-20 [facility] Comment on above: Performed By: #### L 100.0100, L500.4050, L501.9100 #### [facility] [address] [place], [address] Calcium [Mass/Vol] 8.6 mg/dL Normal 7.6-11.0 [facility] Comment on above: Performed By: #### L 100.0100, L500.4050, L501.9100 #### [facility] [address] [place], [address] Chloride [Moles/Vol] 104 mmol/L Normal 98-108 [facility] Comment on above: Performed By: #### L 100.0100, L500.4050, L501.9100 #### [facility] [address] [place], [address] CO2 [Moles/Vol] 16.5 mmol/L Low 21.0-32.0 [facility] Comment on above: Performed By: #### L 100.0100, L500.4050, L501.9100 #### [facility] [address] [place], [address] Creatinine [Mass/Vol] 0.71 mg/dL Normal 0.70-1.20 [facility] Comment on above: Performed By: #### L 100.0100, L500.4050, L501.9100 #### [facility] [address] [place], [address] GAP 21 High 5-15 [facility] Comment on above: Performed By: #### L 100.0100, L500.4050, L501.9100 #### [facility] [address] [place], [address] GFR/1.73 sq M.predicted among non-blacks MDRD (S/P/Bld) [Vol rate/Area] 102 mL/min/{1.73_m2} Normal >60 [facility] Comment on above: Result Comment: mL/m in/1.73m2 CKD-EPI Creatinine Equation (2020) Performed By: #### L 100.0100, L500.4050, L501.9100 #### [facility] [address] [place], [address] Globulin (S) [Mass/Vol] 5.2 g/dL High 2.2-4.2 [facility] Comment on above: Performed By: #### L 100.0100, L500.4050, L501.9100 #### [facility] [address] [place], [address] Glucose [Mass/Vol] 84 mg/dL Normal 70-99 [facility] Comment on above: Performed By: #### L 100.0100, L500.4050, L501.9100 #### [facility] [address] [place], [address] Potassium [Moles/Vol] 3.7 mmol/L Normal 3.3-5.1 [facility] Comment on above: Performed By: #### L 100.0100, L500.4050, L501.9100 #### [facility] [address] [place], [address] Sodium [Moles/Vol] 142 mmol/L Normal 133-145 [facility] Comment on above: Performed By: #### L 100.0100, L500.4050, L501.9100 #### [facility] [address] [place], [address] T PROT 8.9 g/dL High 5.9-8.4 [facility] Comment on above: Performed By: #### L 100.0100, L500.4050, L501.9100 #### [facility] [address] [place], [address] Urea nitrogen [Mass/Vol] 10 mg/dL Normal 4-19 [facility] Comment on above: Performed By: #### L 100.0100, L500.4050, L501.9100 #### [facility] [address] [place], [address] Emergency Department Summary on 02-03-2025 Emergency Department Summary [facility] Medical Records Department [address] [place] [address] Emergency Department Summary 02/03/25 MR#: [id number] Acct: [id number] Name: JENNIFER YORK Rep #: [id number] : 1960 64 From: Abby Marvin DO [...] about this. Denies any blood thinner use. [facility] Medical History Chronic neck pain Thrombocytopenia Tobacco [...] F Temperatur (more content not included)... Normal [facility] Eosinophil percentageOrdered By: Abby Marvin on 02-03-2025 Eosinophils/100 WBC (Bld) 0.6 % 0-5 [facility] Erythrocyte distribution wid th ratioOrdered By: Abby Marvin on 02-03-2025 Erythrocyte distribution width (RBC) [Ratio] 15.4 % High 11.6-14.6 [facility] Erythrocyte distribution wid th standard deviationOrdered By: Abby Marvin on 02-03-2025 Erythrocyte distribution width (RBC) [Ratio] 59.4 fl High 35.1-43.9 [facility] Glomerular filtration rate ( GFR) estimation/1.73 sq m using serum, plasma, or whole bOrdered By: Abby Marvin on 02-03-2025 GFR/1.73 sq M.predicted among non-blacks MDRD (S/P/Bld) [Vol rate/Area] 102 mL/min/{1.73_m2} >60 [facility] Comment on above: mL/min/1.73m2 CKD-EP I Creatinine Equation (2020) Hematocrit Auto (Bld) [Volum e fraction]Ordered By: Abby Marvin on 02-03-2025 Hematocrit (Bld) [Volume fraction] 32.9 % Low 40-54 [facility] Hemoglobin measurementOrdere d By: Abby Marvin on 02-03-2025 Hemoglobin (Bld) [Mass/Vol] 11.0 g/dL Low 13.0-16.5 [facility] Immature granulocytes/100 WB C Auto (Bld)Ordered By: Abby Marvin on 02-03-2025 Immature granulocytes/100 WBC (Bld) 0.900 % 0.0-0.9 [facility] Comment on above: IG% - Immature Granu locytes (promyelocytes, myelocytes and metamyelocytes) > 1% indicates that a LEFT SHIFT is Present. Laboratory - Chemistry and C hemistry - challengeOrdered By: Abby Marvin on 02-03-2025 AST [Catalytic activity/Vol] 154 U/L High <38 [facility] MCV (mean corpuscular volume ) determinationOrdered By: Abby Marvin on 02-03-2025 MCV (RBC) [Entitic vol] 103.5 fL High 80-94 [facility] Mean corpuscular hemoglobin (MCH) determinationOrdered By: Abby Marvin on 02-03-2025 MCH (RBC) [Entitic mass] 34.6 pg High 27.0-32.0 [facility] Mean corpuscular hemoglobin concentration (MCHC) determinationOrdered By: Abby Marvin on 02-03-2025 MCHC (RBC) [Mass/Vol] 33.4 g/dL 32-36 [facility] Mean platelet volume determi nationOrdered By: Abby Marvin on 02-03-2025 Platelet mean volume (Bld) [Entitic vol] 11.6 fL 6.2-12.0 [facility] Monocyte percentageOrdered B y: Abby Marvin on 02-03-2025 Monocytes/100 WBC (Bld) 10.6 % High 0-10 [facility] Neutrophil percentageOrdered By: Abby Marvin on 02-03-2025 Neutrophils/100 WBC (Bld) 46.4 % Low 47-70 [facility] Nucleated red blood cell per centageOrdered By: Abby Marvin on 02-03-2025 Nucleated RBC/100 WBC (Bld) [Ratio] 0 % 0-5 [facility] Platelet countOrdered By: Og Marvin on 02-03-2025 Platelets (Bld) [#/Vol] 31 10*3/uL Low 150-450 [facility] Comment on above: CRITICAL VALUE ALANIS D TO [place] (ER)02/03/25 1348 Zafar Kang.RESULTS READ BACK BY SAME. Platelet estimateOrdered By: Abby Marvin on 02-03-2025 Platelets LM Ql (Bld) MKD DEC ADEQ [facility] Potassium measurement (mass/ volume)Ordered By: Abby Marvin on 02-03-2025 Potassium (Unsp spec) [Mass/Vol] 3.7 mmol/L 3.3-5.1 [facility] RBC Auto (Bld) [#/Vol]Ordere d By: Abby Marvin on 02-03-2025 RBC (Bld) [#/Vol] 3.18 10*6/uL Low 4.6-6.2 [facility] Serum creatinine measurement (mass/volume)Ordered By: Abby Marvin on 02-03-2025 Creatinine [Mass/Vol] 0.71 mg/dL 0.70-1.20 [facility] Serum globulin measurementOr dered By: Abby Marvin on 02-03-2025 Globulin (S) [Mass/Vol] 5.2 g/dL High 2.2-4.2 [facility] Serum glucose measurement (m ass/volume)Ordered By: Abby Marvin on 02-03-2025 Glucose [Mass/Vol] 84 mg/dL 70-99 [facility] Serum or plasma alanine eckert otransferase (ALT) measurementOrdered By: Abby Marvin on 02-03-2025 ALT [Catalytic activity/Vol] 50 U/L High <47 [facility] Serum or plasma albumin josé miguel urement (mass/volume)Ordered By: Abby Marvin on 02-03-2025 Albumin [Mass/Vol] 3.7 g/dL 3.4-4.8 [facility] Serum or plasma albumin/glob ulin mass ratioOrdered By: Abby Marvin on 02-03-2025 Albumin/Globulin [Mass ratio] 0.7 {ratio} Low 0.9-2.4 [facility] Serum or plasma alkaline silva sphatase measurementOrdered By: Abby Marvin on 02-03-2025 ALP [Catalytic activity/Vol] 110 U/L 40-129 [facility] Serum or plasma calcium josé miguel urement (mass/volume)Ordered By: Abby Marvin on 02-03-2025 Calcium [Mass/Vol] 8.6 mg/dL 7.6-11.0 [facility] Serum or plasma ethanol josé miguel urement (mass/volume)Ordered By: Abby Marvin on 02-03-2025 Ethanol [Mass/Vol] 335.0 mg/dL High <10.1 [facility] Comment on above: Critical Result(s) C alled at:02/03/2025-14:10 by: Aris Kaur to Tigre Saleem Results read back by same.This test is for medical purposes only. The legal definition of intoxication varies according to local law. Serum or plasma urea nitroge n measurement (mass/volume)Ordered By: Abby Marvin on 02-03-2025 Urea nitrogen [Mass/Vol] 10 mg/dL 4-19 [facility] Sodium levelOrdered By: Alvin Marvin on 02-03-2025 Sodium [Moles/Vol] 142 mmol/L 133-145 [facility] Total proteinOrdered By: Katherine Marvin on 02-03-2025 Protein [Mass/Vol] 8.9 g/dL High 5.9-8.4 [facility] White blood cell (WBC) count Ordered By: Abby Marvin on 02-03-2025 WBC (Bld) [#/Vol] 3.5 10*3/uL Low 4.4-11.0 [facility] .GFRon 10-13-2024 Estimated Glomerular Filtration Rate 104 ml/min/1.73sqm Normal [facility] Comment on above: Result Comment: Stages of [...] MP, CBC, ADIFF, GFR, ANEU, MG #### [address] [address] BMPon 10-13-2024 BUN/Creatinine Ratio 10 ratio Normal 7-27 [facility] Comment on above: Performed By: #### B MP, CBC, ADIFF, GFR, ANEU, MG #### [address] [address] Calcium [Mass/Vol] 8.4 mg/dL Normal 8.4-10.2 [facility] Comment on above: Performed By: #### B MP, CBC, ADIFF, GFR, ANEU, MG #### [address] [address] Chloride [Moles/Vol] 101 mmol/L Normal 98-107 [facility] Comment on above: Performed By: #### B MP, CBC, ADIFF, GFR, ANEU, MG #### [address] [address] CO2 [Moles/Vol] 25 mmol/L Normal 23-[address] [facility] Comment on above: Performed By: #### B MP, CBC, ADIFF, GFR, ANEU, MG #### [address] [address] Creatinine [Mass/Vol] 0.67 mg/dL Low 0.70-1.30 [facility] Comment on above: Result Comment: Test ing performed on Siemens Dimension EXL analyzer using a modified kinetic Tri technique. Performed By: #### B MP, CBC, ADIFF, GFR, ANEU, MG #### [address] [address] Electrolyte Balance 11.0 mEq/L Normal 4.0-15.0 [facility] Comment on above: Performed By: #### B MP, CBC, ADIFF, GFR, ANEU, MG #### [address] [address] Glucose [Mass/Vol] 84 mg/dL Normal 80-115 [facility] Comment on above: Performed By: #### B MP, CBC, ADIFF, GFR, ANEU, MG #### [address] [address] Potassium [Moles/Vol] 4.2 mmol/L Normal 3.5-5.1 [facility] [place] Comment on above: Performed By: #### B MP, CBC, ADIFF, GFR, ANEU, MG #### [address] [address] Sodium [Moles/Vol] 137 mmol/L Normal 136-145 [facility] Comment on above: Performed By: #### B MP, CBC, ADIFF, GFR, ANEU, MG #### [address] [address] Urea nitrogen [Mass/Vol] 7 mg/dL Normal 7-[address] [facility] Comment on above: Performed By: #### B MP, CBC, ADIFF, GFR, ANEU, MG #### [address] [address] HFPon 10-13-2024 Bili Indirect 0.9 mg/dL Normal [facility] Comment on above: Performed By: #### B MP, CBC, ADIFF, GFR, ANEU, MG #### [address] [address] Albumin Level 2.1 G/dL Low 3.4-4.[address] [facility] Comment on above: Performed By: #### B MP, CBC, ADIFF, GFR, ANEU, MG #### [address] [address] Albumin/Globulin [Mass ratio] 0.5 {ratio} Low 1.1-2.[address] [facility] Comment on above: Performed By: #### B MP, CBC, ADIFF, GFR, ANEU, MG #### [place] [address] ALP [Catalytic activity/Vol] 176 U/L High 40-[address] [facility] Comment on above: Performed By: #### B MP, CBC, ADIFF, GFR, ANEU, MG #### [place] [address] ALT [Catalytic activity/Vol] 63 U/L Normal 16-[address] [facility] Comment on above: Performed By: #### B MP, CBC, ADIFF, GFR, ANEU, MG #### [place] [address] AST [Catalytic activity/Vol] 262 U/L High 10-[address] [facility] Comment on above: Performed By: #### B MP, CBC, ADIFF, GFR, ANEU, MG #### [place] [address] Bili Direct 3.6 mg/dL High 0.0-0.[address] [facility] Comment on above: Result Comment: Use of this assay is not recommended for patients undergoing treatment with eltrombopag due to the potential for falsely elevated results. Performed By: #### B MP, CBC, ADIFF, GFR, ANEU, MG #### [place] [address] Bili Total 4.5 mg/dL High 0.2-1.[address] [facility] Comment on above: Result Comment: Use of this assay is not recommended for patients undergoing treatment with eltrombopag due to the potential for falsely elevated results. Performed By: #### B MP, CBC, ADIFF, GFR, ANEU, MG #### [place] [address] Globulin 4.6 G/dL High 1.5-3.[address] [facility] Comment on above: Performed By: #### B MP, CBC, ADIFF, GFR, ANEU, MG #### [place] [id number] Total Protein 6.7 G/dL Normal 6.4-8.[address] [facility] Comment on above: Performed By: #### B MP, CBC, ADIFF, GFR, ANEU, MG #### [place] [id number] [place], [place] [address] LABORATORYOrdered By: SYSTEM SYSTEM on 10-13-2024 Albumin [...] 10-13-2024 Magnesium [Mass/Vol] 1.7 mg/dL Low 1.8-2.4 [facility] Comment on above: Performed By: #### B MP, CBC, ADIFF, GFR, ANEU, MG #### [address] [address] .GFRon 10-12-2024 Estimated Glomerular Filtration Rate 100 ml/min/1.73sqm Normal [facility] Comment on above: Result Comment: Stages of [...] results. Performed By: #### R ESCOLIVIA #### [facility] [address] [place] [address] BUN/Creatinine Ratio 9 ratio Normal 7-27 [facility] Comment on above: Performed By: #### Gabriel SAEZ UA #### [address] [address] Calcium [Mass/Vol] 8.3 mg/dL Low 8.4-10.2 [facility] Comment on above: Performed By: #### Gabriel SAEZ UA #### [address] [address] Chloride [Moles/Vol] 101 mmol/L Normal 98-107 [facility] Comment on above: Performed By: #### Gabriel SAEZ UA #### [address] [address] CO2 [Moles/Vol] 27 mmol/L Normal 23-[address] [facility] Comment on above: Performed By: #### Gabriel SAEZ UA #### [address] [address] Creatinine [Mass/Vol] 0.76 mg/dL Normal 0.70-1.30 [facility] [place] Comment on above: Result Comment: Test ing performed on Siemens Dimension EXL analyzer using a modified kinetic Tri technique. Performed By: #### Gabriel SAEZ UA #### [address] [address] Electrolyte Balance 6.0 mEq/L Normal 4.0-15.0 [facility] Comment on above: Performed By: #### U SE, UA #### [address] [address] Glucose [Mass/Vol] 82 mg/dL Normal 80-115 [facility] Comment on above: Performed By: #### Gabriel SAEZ UA #### [place] [id number] [place], [place] [address] Potassium [Moles/Vol] 3.6 mmol/L Normal 3.5-5.1 [facility] [place] Comment on above: Performed By: #### Gabriel SAEZ UA #### [address] [address] Sodium [Moles/Vol] 134 mmol/L Low 136-145 [facility] Comment on above: Performed By: #### Gabriel SAEZ UA #### [address] [address] Urea nitrogen [Mass/Vol] 7 mg/dL Normal 7-[address] [facility] Comment on above: Performed By: #### Gabriel SAEZ UA #### [address] [address] HFPon 10-12-2024 Bili Indirect 0.6 mg/dL Normal [facility] Comment on above: Performed By: #### Blanche TAYLOR #### [address] [address] Albumin Level 2.0 G/dL Low 3.4-4.[address] [facility] Comment on above: Performed By: #### Blanche TAYLOR #### [address] [address] Albumin/Globulin [Mass ratio] 0.5 {ratio} Low 1.1-2.[address] [facility] Comment on above: Performed By: #### Blanche TAYLOR #### [address] [address] ALP [Catalytic activity/Vol] 161 U/L High 40-[address] [facility] Comment on above: Performed By: #### Blanche TAYLOR #### [address] [address] ALT [Catalytic activity/Vol] 60 U/L Normal 16-[address] [facility] Comment on above: Performed By: #### R ESCVID #### [place] [address] AST [Catalytic activity/Vol] 289 U/L High 10-[address] [facility] Comment on above: Performed By: #### R ESCVID #### [place] [address] Bili Direct 3.0 mg/dL High 0.0-0.[address] [facility] Comment on above: Result Comment: Use of this assay is not recommended for patients undergoing treatment with eltrombopag due to the potential for falsely elevated results. Performed By: #### R ESCVID #### [place] [address] Bili Total 3.6 mg/dL High 0.2-1.[address] [facility] Comment on above: Result Comment: Use of this assay is not recommended for patients undergoing treatment with eltrombopag due to the potential for falsely elevated results. Performed By: #### R ESCVID #### [place] [address] Globulin 4.3 G/dL High 1.5-3.[address] [facility] Comment on above: Performed By: #### R ESCVID #### [place] [address] Total Protein 6.3 G/dL Low 6.4-8.[address] [facility] Comment on above: Performed By: #### R ESCVID #### [place] [address] LABORATORYOrdered By: SYSTEM SYSTEM on 10-12-2024 Albumin [...] 10-12-2024 Magnesium [Mass/Vol] 1.6 mg/dL Low 1.8-2.4 [facility] Comment on above: Performed By: #### R ESCVID #### [address] [address] .Auto Diffon 10-11-2024 Basophil, Absolute 0.0 10 3/mcL Normal 0.0-0.2 [facility] Comment on above: Performed By: #### B MP, CBC, ADIFF, GFR, ANEU, MG #### [address] [address] Basophils/100 WBC (Bld) 0.6 % Normal 0.0-2.[address] [facility] Comment on above: Performed By: #### B MP, CBC, ADIFF, GFR, ANEU, MG #### [address] [address] Eosinophil, Absolute 0.0 10 3/mcL Normal 0.0-0.7 [facility] Comment on above: Performed By: #### B MP, CBC, ADIFF, GFR, ANEU, MG #### [address] [address] Eosinophils/100 WBC (Bld) 0.4 % Normal 0.0-7.[address] [facility] Comment on above: Performed By: #### B MP, CBC, ADIFF, GFR, ANEU, MG #### [address] [address] Lymphocyte, Absolute 0.8 10 3/mcL Low 0.9-4.3 [facility] Comment on above: Performed By: #### B MP, CBC, ADIFF, GFR, ANEU, MG #### [address] [address] Lymphocytes/100 WBC (Bld) 21.7 % Normal 20.0-40.[address] [facility] Comment on above: Performed By: #### B MP, CBC, ADIFF, GFR, ANEU, MG #### [address] [address] Monocyte, Absolute 0.3 10 3/mcL Normal 0.1-1.4 [facility] Comment on above: Performed By: #### B MP, CBC, ADIFF, GFR, ANEU, MG #### [address] [address] Monocytes/100 WBC (Bld) 7.8 % Normal 2.0-13.[address] [facility] Comment on above: Performed By: #### B MP, CBC, ADIFF, GFR, ANEU, MG #### [address] [address] Neutrophils/100 WBC (Bld) 69.5 % Normal 50.0-75.[address] [facility] Comment on above: Performed By: #### B MP, CBC, ADIFF, GFR, ANEU, MG #### [address] [address] .GFRon 10-11-2024 Estimated Glomerular Filtration Rate 104 ml/min/1.73sqm Normal [facility] Comment on above: Result Comment: Stages of [...] MP, CBC, ADIFF, GFR, ANEU, MG #### [address] [address] .NEUABSon 10-11-2024 Neutrophil, Absolute 2.5 10 3/mcL Normal 2.3-8.1 [facility] Comment on above: Performed By: #### B MP, CBC, ADIFF, GFR, ANEU, MG #### [address] [address] Noemí 10-11-2024 Ammonia (P) [Moles/Vol] 12 umol/L Normal 11-[address] [facility] Comment on above: Performed By: #### B MP, CBC, ADIFF, GFR, ANEU, MG #### [address] [address] BGon 10-11-2024 Base excess Calc (Bld) [Moles/Vol] 3.0 mmol/L Normal [facility] Comment on above: Performed By: #### B MP, CBC, ADIFF, GFR, ANEU, MG #### [address] [address] CO2 [Moles/Vol] 26.8 mmol/L Normal 22.0-30.[address] [facility] Comment on above: Performed By: #### B MP, CBC, ADIFF, GFR, ANEU, MG #### [address] [address] HCO3 (Bld) [Moles/Vol] 25.8 mmol/L Normal 21.0-29.0 [facility] Comment on above: Performed By: #### B MP, CBC, ADIFF, GFR, ANEU, MG #### [address] [address] Oxygen (Bld) [Partial pressure] 58.4 mm[Hg] Low 74.0-108.[address] [facility] Comment on above: Performed By: #### B MP, CBC, ADIFF, GFR, ANEU, MG #### [address] [address] Oxygen saturation in Blood 90.5 % Low 92.0-96.[address] [facility] Comment on above: Performed By: #### B MP, CBC, ADIFF, GFR, ANEU, MG #### [address] [address] pCO2 33.4 mmHg Normal 32.0-46.[address] [facility] Comment on above: Performed By: #### B MP, CBC, ADIFF, GFR, ANEU, MG #### [address] [address] pH (Bld) 7.506 [pH] High 7.380-7.[address] [facility] Comment on above: Performed By: #### B MP, CBC, ADIFF, GFR, ANEU, MG #### [address] [address] BMPon 10-11-2024 BUN/Creatinine Ratio 10 ratio Normal 7-27 [facility] Comment on above: Performed By: #### B MP, CBC, ADIFF, GFR, ANEU, MG #### [address] [address] Calcium [Mass/Vol] 8.3 mg/dL Low 8.4-10.2 [facility] Comment on above: Performed By: #### B MP, CBC, ADIFF, GFR, ANEU, MG #### [address] [address] Chloride [Moles/Vol] 100 mmol/L Normal 98-107 [facility] Comment on above: Performed By: #### B MP, CBC, ADIFF, GFR, ANEU, MG #### [address] [address] CO2 [Moles/Vol] 28 mmol/L Normal 23-[address] [facility] Comment on above: Performed By: #### B MP, CBC, ADIFF, GFR, ANEU, MG #### [address] [address] Creatinine [Mass/Vol] 0.67 mg/dL Low 0.70-1.30 [facility] [place] Comment on above: Result Comment: Test ing performed on Siemens Dimension EXL analyzer using a modified kinetic Tri technique. Performed By: #### B MP, CBC, ADIFF, GFR, ANEU, MG #### [address] [address] Electrolyte Balance 7.0 mEq/L Normal 4.0-15.0 [facility] Comment on above: Performed By: #### B MP, CBC, ADIFF, GFR, ANEU, MG #### [address] [address] Glucose [Mass/Vol] 80 mg/dL Normal 80-115 [facility] Comment on above: Performed By: #### B MP, CBC, ADIFF, GFR, ANEU, MG #### [address] [address] Potassium [Moles/Vol] 3.7 mmol/L Normal 3.5-5.1 [facility] [place] Comment on above: Performed By: #### B MP, CBC, ADIFF, GFR, ANEU, MG #### [address] [address] Sodium [Moles/Vol] 135 mmol/L Low 136-145 [facility] Comment on above: Performed By: #### B MP, CBC, ADIFF, GFR, ANEU, MG #### [address] [address] Urea nitrogen [Mass/Vol] 7 mg/dL Normal 7-[address] [facility] Comment on above: Performed By: #### B MP, CBC, ADIFF, GFR, ANEU, MG #### [address] [address] CBCon 10-11-2024 Erythrocyte distribution width (RBC) [Ratio] 15.2 % Normal 11.5-15.[address] [facility] Comment on above: Performed By: #### B MP, CBC, ADIFF, GFR, ANEU, MG #### [address] [address] Hematocrit (Bld) [Volume fraction] 30.7 % Low 40.0-52.[address] [facility] Comment on above: Performed By: #### B MP, CBC, ADIFF, GFR, ANEU, MG #### [place] [id number] Hgb 10.4 G/dL Low 13.0-17.[address] [facility] Comment on above: Performed By: #### B MP, CBC, ADIFF, GFR, ANEU, MG #### [address] [address] MCH (RBC) [Entitic mass] 35.1 pg High 27.0-33.[address] [facility] Comment on above: Performed By: #### B MP, CBC, ADIFF, GFR, ANEU, MG #### [address] [address] MCHC 34.0 G/dL Normal 32.0-36.[address] [facility] Comment on above: Performed By: #### B MP, CBC, ADIFF, GFR, ANEU, MG #### [address] [address] MCV (RBC) [Entitic vol] 103.2 fL High 81.0-100.[address] [facility] Comment on above: Performed By: #### B MP, CBC, ADIFF, GFR, ANEU, MG #### [address] [address] Platelet 111 10 3/mcL Low 150-[address] [facility] Comment on above: Performed By: #### B MP, CBC, ADIFF, GFR, ANEU, MG #### [address] [address] Platelet mean volume (Bld) [Entitic vol] 9.6 fL Normal 6.4-10.[address] [facility] Comment on above: Performed By: #### B MP, CBC, ADIFF, GFR, ANEU, MG #### [place] [address] RBC 2.97 10 6/mcL Low 4.50-6.[address] [facility] Comment on above: Performed By: #### B MP, CBC, ADIFF, GFR, ANEU, MG #### [place] [address] WBC 3.5 10 3/mcL Low 4.5-10.[address] [facility] Comment on above: Performed By: #### B MP, CBC, ADIFF, GFR, ANEU, MG #### [place] [address] HFPon 10-11-2024 Bili Indirect 0.6 mg/dL Normal [facility] Comment on above: Performed By: #### B MP, CBC, ADIFF, GFR, ANEU, MG #### [place] [address] Albumin Level 2.0 G/dL Low 3.4-4.[address] [facility] Comment on above: Performed By: #### B MP, CBC, ADIFF, GFR, ANEU, MG #### [place] [address] Albumin/Globulin [Mass ratio] 0.4 {ratio} Low 1.1-2.[address] [facility] Comment on above: Performed By: #### B MP, CBC, ADIFF, GFR, ANEU, MG #### [place] [address] ALP [Catalytic activity/Vol] 144 U/L High 40-[address] [facility] Comment on above: Performed By: #### B MP, CBC, ADIFF, GFR, ANEU, MG #### [place] [address] ALT [Catalytic activity/Vol] 56 U/L Normal 16-[address] [facility] Comment on above: Performed By: #### B MP, CBC, ADIFF, GFR, ANEU, MG #### [place] [phone] AST [Catalytic activity/Vol] 303 U/L High 10-[address] [facility] Comment on above: Performed By: #### B MP, CBC, ADIFF, GFR, ANEU, MG #### [place] [address] Bili Direct 2.6 mg/dL High 0.0-0.[address] [facility] Comment on above: Result Comment: Use of this assay is not recommended for patients undergoing treatment with eltrombopag due to the potential for falsely elevated results. Performed By: #### B MP, CBC, ADIFF, GFR, ANEU, MG #### [place] [address] Bili Total 3.2 mg/dL High 0.2-1.[address] [facility] Comment on above: Result Comment: Use of this assay is not recommended for patients undergoing treatment with eltrombopag due to the potential for falsely elevated results. Performed By: #### B MP, CBC, ADIFF, GFR, ANEU, MG #### [place] [address] Globulin 4.5 G/dL High 1.5-3.[address] [facility] Comment on above: Performed By: #### B MP, CBC, ADIFF, GFR, ANEU, MG #### [place] [address] Total Protein 6.5 G/dL Normal 6.4-8.[address] [facility] Comment on above: Performed By: #### B MP, CBC, ADIFF, GFR, ANEU, MG #### [place] [address] LABORATORYOrdered By: Elliott Vitale on 10-11-2024 CO2 [...] Comment on above: Interpretive Data: Paul isbell [employer] (CHEST, 1991, 102:[id number]) [...] 10-11-2024 Magnesium [Mass/Vol] 1.6 mg/dL Low 1.8-2.4 [facility] Comment on above: Performed By: #### B MP, CBC, ADIFF, GFR, ANEU, MG #### [address] [address] PROon 10-11-2024 PT Coag (PPP) [Time] 14.4 s Normal 9.0-14.4 [facility] Comment on above: Performed By: #### B MP, CBC, ADIFF, GFR, ANEU, MG #### [address] [address] PT International Ratio 1.2 Normal [facility] Comment on above: Result Comment: [employer] (CHEST, 1992, 102:[id number]) recommended therapeutic range for oral anticoagulant therapy is: LOW RISK: Prophylaxis of venous thrombosis INR: 2.0-3.0 Treatment of pulmonary embolism 2.0-3.0 Prevention of systemic embolism 2.0-3.0 HIGH RISK: Mechanical prosthetic valves 2.5-3.5 Performed By: #### B MP, CBC, ADIFF, GFR, ANEU, MG #### [address] [address] .Auto Diffon 10-10-2024 Basophil, Absolute 0.0 10 3/mcL Normal 0.0-0.2 [facility] Comment on above: Performed By: #### B MP, CBC, ADIFF, GFR, ANEU, MG #### [address] [address] Basophils/100 WBC (Bld) 0.9 % Normal 0.0-2.[address] [facility] Comment on above: Performed By: #### B MP, CBC, ADIFF, GFR, ANEU, MG #### [address] [address] Eosinophil, Absolute 0.0 10 3/mcL Normal 0.0-0.7 [facility] Comment on above: Performed By: #### B MP, CBC, ADIFF, GFR, ANEU, MG #### [address] [address] Eosinophils/100 WBC (Bld) 0.2 % Normal 0.0-7.[address] [facility] Comment on above: Performed By: #### B MP, CBC, ADIFF, GFR, ANEU, MG #### [address] [address] Lymphocyte, Absolute 0.8 10 3/mcL Low 0.9-4.3 [facility] Comment on above: Performed By: #### B MP, CBC, ADIFF, GFR, ANEU, MG #### [address] [address] Lymphocytes/100 WBC (Bld) 23.8 % Normal 20.0-40.[address] [facility] Comment on above: Performed By: #### B MP, CBC, ADIFF, GFR, ANEU, MG #### [address] [address] Monocyte, Absolute 0.3 10 3/mcL Normal 0.1-1.4 [facility] Comment on above: Performed By: #### B MP, CBC, ADIFF, GFR, ANEU, MG #### [address] [address] Monocytes/100 WBC (Bld) 7.8 % Normal 2.0-13.[address] [facility] Comment on above: Performed By: #### B MP, CBC, ADIFF, GFR, ANEU, MG #### [address] [address] Neutrophils/100 WBC (Bld) 67.3 % Normal 50.0-75.[address] [facility] Comment on above: Performed By: #### B MP, CBC, ADIFF, GFR, ANEU, MG #### [address] [address] .GFRon 10-10-2024 Estimated Glomerular Filtration Rate 104 ml/min/1.73sqm Normal [facility] Comment on above: Result Comment: Stages of [...] MP, CBC, ADIFF, GFR, ANEU, MG #### [place] [address] .Morphon 10-10-2024 Anisocytosis Ql (Bld) 1+ Normal [facility] [place] Comment on above: Performed By: #### B MP, CBC, ADIFF, GFR, ANEU, MG #### [place] [address] Macrocytosis 1+ Normal [facility] Comment on above: Performed By: #### B MP, CBC, ADIFF, GFR, ANEU, MG #### [place] [address] Platelet Estimate Decreased Normal [facility] Comment on above: Performed By: #### B MP, CBC, ADIFF, GFR, ANEU, MG #### [place] [address] Target Cell 1+ Normal [facility] Comment on above: Performed By: #### B MP, CBC, ADIFF, GFR, ANEU, MG #### [place] [address] .NEUABSon 10-10-2024 Neutrophil, Absolute 2.3 10 3/mcL Normal 2.3-8.1 [facility] Comment on above: Performed By: #### B MP, CBC, ADIFF, GFR, ANEU, MG #### [address] [address] Noemí 10-10-2024 Ammonia (P) [Moles/Vol] 17 umol/L Normal 11-[address] [facility] Comment on above: Performed By: #### U AMICAO, UA #### [address] [address] BMPon 10-10-2024 BUN/Creatinine Ratio 9 ratio Normal 7-27 [facility] Comment on above: Performed By: #### B MP, CBC, ADIFF, GFR, ANEU, MG #### [place] [address] Calcium [Mass/Vol] 8.4 mg/dL Normal 8.4-10.2 [facility] Comment on above: Performed By: #### B MP, CBC, ADIFF, GFR, ANEU, MG #### [place] [address] Chloride [Moles/Vol] 101 mmol/L Normal 98-107 [facility] Comment on above: Performed By: #### B MP, CBC, ADIFF, GFR, ANEU, MG #### [address] [address] CO2 [Moles/Vol] 29 mmol/L Normal 23-[address] [facility] Comment on above: Performed By: #### B MP, CBC, ADIFF, GFR, ANEU, MG #### [address] [address] Creatinine [Mass/Vol] 0.67 mg/dL Low 0.70-1.30 [facility] [place] Comment on above: Result Comment: Test ing performed on Siemens Dimension EXL analyzer using a modified kinetic Tri technique. Performed By: #### B MP, CBC, ADIFF, GFR, ANEU, MG #### [place] [address] Electrolyte Balance 8.0 mEq/L Normal 4.0-15.0 [facility] Comment on above: Performed By: #### B MP, CBC, ADIFF, GFR, ANEU, MG #### [address] [address] Glucose [Mass/Vol] 79 mg/dL Low 80-115 [facility] Comment on above: Performed By: #### B MP, CBC, ADIFF, GFR, ANEU, MG #### [place] [id number] Potassium [Moles/Vol] 2.8 mmol/L Low 3.5-5.1 [facility] [place] Comment on above: Performed By: #### B MP, CBC, ADIFF, GFR, ANEU, MG #### [place] [address] Sodium [Moles/Vol] 138 mmol/L Normal 136-145 [facility] Comment on above: Performed By: #### B MP, CBC, ADIFF, GFR, ANEU, MG #### [place] [address] Urea nitrogen [Mass/Vol] 6 mg/dL Low 7-[address] [facility] Comment on above: Performed By: #### B MP, CBC, ADIFF, GFR, ANEU, MG #### [place] [id number] CBCon 10-10-2024 Erythrocyte distribution width (RBC) [Ratio] 15.4 % Normal 11.5-15.[address] [facility] Comment on above: Performed By: #### B MP, CBC, ADIFF, GFR, ANEU, MG #### [address] [address] Hematocrit (Bld) [Volume fraction] 28.2 % Low 40.0-52.[address] [facility] Comment on above: Performed By: #### B MP, CBC, ADIFF, GFR, ANEU, MG #### [place] [address] Hgb 9.5 G/dL Low 13.0-17.[address] [facility] Comment on above: Performed By: #### B MP, CBC, ADIFF, GFR, ANEU, MG #### [address] [address] MCH (RBC) [Entitic mass] 34.9 pg High 27.0-33.[address] [facility] Comment on above: Performed By: #### B MP, CBC, ADIFF, GFR, ANEU, MG #### [place] [address] MCHC 33.5 G/dL Normal 32.0-36.[address] [facility] Comment on above: Performed By: #### B MP, CBC, ADIFF, GFR, ANEU, MG #### [place] [address] MCV (RBC) [Entitic vol] 104.3 fL High 81.0-100.[address] [facility] Comment on above: Performed By: #### B MP, CBC, ADIFF, GFR, ANEU, MG #### [place] [address] Platelet 96 10 3/mcL Low 150-[address] [facility] Comment on above: Performed By: #### B MP, CBC, ADIFF, GFR, ANEU, MG #### [place] [address] Platelet mean volume (Bld) [Entitic vol] 10.1 fL Normal 6.4-10.[address] [facility] Comment on above: Performed By: #### B MP, CBC, ADIFF, GFR, ANEU, MG #### [place] [address] RBC 2.71 10 6/mcL Low 4.50-6.[address] [facility] Comment on above: Performed By: #### B MP, CBC, ADIFF, GFR, ANEU, MG #### [place] [address] WBC 3.4 10 3/mcL Low 4.5-10.[address] [facility] Comment on above: Performed By: #### B MP, CBC, ADIFF, GFR, ANEU, MG #### [address] [address] [address] HEAD OR BRAIN W/O CONTRAS Ton [...] 4:34:44 PM Ordering Provider: CINDY BAILEY Normal [facility] HFPon 10-10-2024 Bili Indirect 0.4 mg/dL Normal [facility] Comment on above: Performed By: #### B MP, CBC, ADIFF, GFR, ANEU, MG #### [address] [address] Albumin Level 2.0 G/dL Low 3.4-4.[address] [facility] Comment on above: Performed By: #### B MP, CBC, ADIFF, GFR, ANEU, MG #### [place] [address] Albumin/Globulin [Mass ratio] 0.5 {ratio} Low 1.1-2.[address] [facility] Comment on above: Performed By: #### B MP, CBC, ADIFF, GFR, ANEU, MG #### [place] [address] ALP [Catalytic activity/Vol] 116 U/L Normal 40-[address] [facility] Comment on above: Performed By: #### B MP, CBC, ADIFF, GFR, ANEU, MG #### [place] [address] ALT [Catalytic activity/Vol] 52 U/L Normal 16-[address] [facility] Comment on above: Performed By: #### B MP, CBC, ADIFF, GFR, ANEU, MG #### [place] [address] AST [Catalytic activity/Vol] 270 U/L High 10-[address] [facility] Comment on above: Performed By: #### B MP, CBC, ADIFF, GFR, ANEU, MG #### [place] [address] Bili Direct 2.5 mg/dL High 0.0-0.[address] [facility] Comment on above: Result Comment: Use of this assay is not recommended for patients undergoing treatment with eltrombopag due to the potential for falsely elevated results. Performed By: #### B MP, CBC, ADIFF, GFR, ANEU, MG #### [place] [address] Bili Total 2.9 mg/dL High 0.2-1.[address] [facility] Comment on above: Result Comment: Use of this assay is not recommended for patients undergoing treatment with eltrombopag due to the potential for falsely elevated results. Performed By: #### B MP, CBC, ADIFF, GFR, ANEU, MG #### [place] [address] Globulin 4.0 G/dL High 1.5-3.[address] [facility] Comment on above: Performed By: #### B MP, CBC, ADIFF, GFR, ANEU, MG #### [facility] [address] [place], [place] [address] Total Protein 6.0 G/dL Low 6.4-8.[address] [facility] Comment on above: Performed By: #### B MP, CBC, ADIFF, GFR, ANEU, MG #### [facility] [address] [place], [place] [address] LABORATORYOrdered By: SYSTEM SYSTEM on 10-10-2024 Ammonia [...] 10-10-2024 Magnesium [Mass/Vol] 1.5 mg/dL Low 1.8-2.4 [facility] Comment on above: Performed By: #### B MP, CBC, ADIFF, GFR, ANEU, MG #### [facility] [address] [place], [place] [address] RESCVIDon 10-10-2024 Adenovirus Not detected Normal Not Detected [facility] Comment on above: Performed By: #### R ESCVID #### [facility] [address] [place] [address] Bordetella Parapertussis Not detected Normal Not Detected [facility] Comment on above: Performed By: #### R ESCVID #### [facility] [address] [place] [address] Bordetella Pertussis Not detected Normal Not Detected [facility] Comment on above: Performed By: #### R ESCVID #### [facility] [address] [place] [address] Chlamydophila pneumoniae Not detected Normal Not Detected [facility] Comment on above: Performed By: #### R ESCVID #### [facility] [address] [place] [address] Coronavirus 229E (Not COVID-19) Not detected Normal Not Detected [facility] Comment on above: Performed By: #### R ESCVID #### [facility] [address] [place], [place] [id number] Coronavirus HKU1 (Not COVID-19) Not detected Normal Not Detected [facility] Comment on above: Performed By: #### R ESCVID #### [facility] [address] [place], [place] [phone] Coronavirus NL63 (Not COVID-19) Not detected Normal Not Detected [facility] Comment on above: Performed By: #### R ESCVID #### [facility] [address] [place], [place] [phone] Coronavirus OC43 (Not COVID-19) Not detected Normal Not Detected [facility] Comment on above: Performed By: #### R ESCVID #### [facility] [address] [place] [address] Human Metapneumovirus Not detected Normal Not Detected [facility] Comment on above: Performed By: #### R ESCVID #### [facility] [address] [place] [address] Influenza A H1-2009 Detected Abnormal Not Detected [facility] Comment on above: Performed By: #### R ESCVID #### [facility] [address] [place] [address] Influenza B Not detected Normal Not Detected [facility] Comment on above: Performed By: #### R ESCVID #### [facility] [address] [place], [place] [phone] Mycoplasma pneumoniae Not detected Normal Not Detected [facility] Comment on above: Performed By: #### R ESCVID #### [facility] [address] [place] [address] Parainfluenza 1 Not detected Normal Not Detected [facility] Comment on above: Performed By: #### R ESCVID #### [facility] [address] [place], [place] [phone] Parainfluenza 2 Not detected Normal Not Detected [facility] Comment on above: Performed By: #### R ESCVID #### [facility] [address] [place] [address] Parainfluenza 3 Not detected Normal Not Detected [facility] Comment on above: Performed By: #### R ESCVID #### [facility] [address] [place] [address] Parainfluenza 4 Not detected Normal Not Detected [facility] Comment on above: Performed By: #### R ESCVID #### [place] [address] Respiratory Syncytial Virus Not detected Normal Not Detected [facility] Comment on above: Performed By: #### R ESCVID #### [place] [address] Rhinovirus/Enterovirus Not detected Normal Not Detected [facility] Comment on above: Performed By: #### R ESCVID #### [place] [address] SARS-CoV-2 (COVID-19) RNA VIVIANE+probe Ql (Unsp spec) Not detected Normal Not Detected [facility] Comment on above: Result Comment: This assay has been validated in the [facility] for use with nasopharyngeal specimens in [facility]. If a non-validated specimen or test collection [...] authorities. Performed By: #### R ESCVID #### [address] [address] .Auto Diffon 10-09-2024 Basophil, Absolute 0.0 10 3/mcL Normal 0.0-0.2 [facility] Comment on above: Performed By: #### B MP, CBC, ADIFF, GFR, ANEU, MG #### [address] [address] Basophils/100 WBC (Bld) 1.1 % Normal 0.0-2.[address] [facility] Comment on above: Performed By: #### B MP, CBC, ADIFF, GFR, ANEU, MG #### [address] [address] Eosinophil, Absolute 0.0 10 3/mcL Normal 0.0-0.7 [facility] Comment on above: Performed By: #### B MP, CBC, ADIFF, GFR, ANEU, MG #### [address] [address] Eosinophils/100 WBC (Bld) 0.1 % Normal 0.0-7.[address] [facility] Comment on above: Performed By: #### B MP, CBC, ADIFF, GFR, ANEU, MG #### [address] [address] Lymphocyte, Absolute 0.5 10 3/mcL Low 0.9-4.3 [facility] Comment on above: Performed By: #### B MP, CBC, ADIFF, GFR, ANEU, MG #### [address] [address] Lymphocytes/100 WBC (Bld) 12.0 % Low 20.0-40.[address] [facility] Comment on above: Performed By: #### B MP, CBC, ADIFF, GFR, ANEU, MG #### [address] [address] Monocyte, Absolute 0.4 10 3/mcL Normal 0.1-1.4 [facility] Comment on above: Performed By: #### B MP, CBC, ADIFF, GFR, ANEU, MG #### [address] [address] Monocytes/100 WBC (Bld) 11.3 % Normal 2.0-13.[address] [facility] Comment on above: Performed By: #### B MP, CBC, ADIFF, GFR, ANEU, MG #### [address] [address] Neutrophils/100 WBC (Bld) 75.5 % High 50.0-75.[address] [facility] Comment on above: Performed By: #### B MP, CBC, ADIFF, GFR, ANEU, MG #### [address] [address] .GFRon 10-09-2024 Estimated Glomerular Filtration Rate 105 ml/min/1.73sqm Normal [facility] Comment on above: Result Comment: Stages of [...] MP, CBC, ADIFF, GFR, ANEU, MG #### [address] [address] .NEUABSon 10-09-2024 Neutrophil, Absolute 3.0 10 3/mcL Normal 2.3-8.1 [facility] Comment on above: Performed By: #### B MP, CBC, ADIFF, GFR, ANEU, MG #### [address] [address] BMPon 10-09-2024 BUN/Creatinine Ratio 8 ratio Normal 7-27 [facility] Comment on above: Performed By: #### B MP, CBC, ADIFF, GFR, ANEU, MG #### [address] [address] Calcium [Mass/Vol] 8.1 mg/dL Low 8.4-10.2 [facility] Comment on above: Performed By: #### B MP, CBC, ADIFF, GFR, ANEU, MG #### [address] [address] Chloride [Moles/Vol] 99 mmol/L Normal 98-107 [facility] Comment on above: Performed By: #### B MP, CBC, ADIFF, GFR, ANEU, MG #### [address] [address] CO2 [Moles/Vol] 26 mmol/L Normal 23-[address] [facility] Comment on above: Performed By: #### B MP, CBC, ADIFF, GFR, ANEU, MG #### [address] [address] Creatinine [Mass/Vol] 0.65 mg/dL Low 0.70-1.30 [facility] Comment on above: Result Comment: Test ing performed on Siemens Dimension EXL analyzer using a modified kinetic Tri technique. Performed By: #### B MP, CBC, ADIFF, GFR, ANEU, MG #### [address] [address] Electrolyte Balance 9.0 mEq/L Normal 4.0-15.0 [facility] Comment on above: Performed By: #### B MP, CBC, ADIFF, GFR, ANEU, MG #### [address] [address] Glucose [Mass/Vol] 103 mg/dL Normal 80-115 [facility] Comment on above: Performed By: #### B MP, CBC, ADIFF, GFR, ANEU, MG #### [place] [address] Potassium [Moles/Vol] 3.0 mmol/L Low 3.5-5.1 [facility] Comment on above: Performed By: #### B MP, CBC, ADIFF, GFR, ANEU, MG #### [place] [address] Sodium [Moles/Vol] 134 mmol/L Low 136-145 [facility] Comment on above: Performed By: #### B MP, CBC, ADIFF, GFR, ANEU, MG #### [place] [address] Urea nitrogen [Mass/Vol] 5 mg/dL Low 7-[address] [facility] Comment on above: Performed By: #### B MP, CBC, ADIFF, GFR, ANEU, MG #### [address] [address] CBCon 10-09-2024 Erythrocyte distribution width (RBC) [Ratio] 14.6 % Normal 11.5-15.[address] [facility] Comment on above: Performed By: #### B MP, CBC, ADIFF, GFR, ANEU, MG #### [place] [address] Hematocrit (Bld) [Volume fraction] 24.8 % Low 40.0-52.[address] [facility] Comment on above: Performed By: #### B MP, CBC, ADIFF, GFR, ANEU, MG #### [place] [id number] Hgb 9.0 G/dL Low 13.0-17.[address] [facility] Comment on above: Performed By: #### B MP, CBC, ADIFF, GFR, ANEU, MG #### [address] [address] MCH (RBC) [Entitic mass] 36.7 pg High 27.0-33.[address] [facility] Comment on above: Performed By: #### B MP, CBC, ADIFF, GFR, ANEU, MG #### [place] [address] MCHC 36.1 G/dL High 32.0-36.[address] [facility] Comment on above: Performed By: #### B MP, CBC, ADIFF, GFR, ANEU, MG #### [place] [address] MCV (RBC) [Entitic vol] 101.7 fL High 81.0-100.[address] [facility] Comment on above: Performed By: #### B MP, CBC, ADIFF, GFR, ANEU, MG #### [place] [address] Platelet 246 10 3/mcL Normal 150-[address] [facility] Comment on above: Performed By: #### B MP, CBC, ADIFF, GFR, ANEU, MG #### [place] [address] Platelet mean volume (Bld) [Entitic vol] 8.9 fL Normal 6.4-10.[address] [facility] Comment on above: Performed By: #### B MP, CBC, ADIFF, GFR, ANEU, MG #### [place] [address] RBC 2.44 10 6/mcL Low 4.50-6.[address] [facility] Comment on above: Performed By: #### B MP, CBC, ADIFF, GFR, ANEU, MG #### [place] [address] WBC 4.0 10 3/mcL Low 4.5-10.[address] [facility] Comment on above: Performed By: #### B MP, CBC, ADIFF, GFR, ANEU, MG #### [facility] [address] [place], [place] [address] LABORATORYOrdered By: SYSTEM SYSTEM on 10-09-2024 Basophils [...] 10-09-2024 Magnesium [Mass/Vol] 1.6 mg/dL Low 1.8-2.4 [facility] Comment on above: Performed By: #### B MP, CBC, ADIFF, GFR, ANEU, MG #### [address] [address] .Auto Diffon 10-08-2024 Basophil, Absolute 0.1 10 3/mcL Normal 0.0-0.2 [facility] Comment on above: Performed By: #### B MP, CBC, ADIFF, GFR, ANEU, MG #### [address] [address] Basophils/100 WBC (Bld) 1.4 % Normal 0.0-2.[address] [facility] Comment on above: Performed By: #### B MP, CBC, ADIFF, GFR, ANEU, MG #### [address] [address] Eosinophil, Absolute 0.0 10 3/mcL Normal 0.0-0.7 [facility] Comment on above: Performed By: #### B MP, CBC, ADIFF, GFR, ANEU, MG #### [address] [address] Eosinophils/100 WBC (Bld) 0.1 % Normal 0.0-7.[address] [facility] Comment on above: Performed By: #### B MP, CBC, ADIFF, GFR, ANEU, MG #### [address] [address] Lymphocyte, Absolute 0.4 10 3/mcL Low 0.9-4.3 [facility] Comment on above: Performed By: #### B MP, CBC, ADIFF, GFR, ANEU, MG #### [address] [address] Lymphocytes/100 WBC (Bld) 8.2 % Low 20.0-40.[address] [facility] Comment on above: Performed By: #### B MP, CBC, ADIFF, GFR, ANEU, MG #### [address] [address] Monocyte, Absolute 0.6 10 3/mcL Normal 0.1-1.4 [facility] Comment on above: Performed By: #### B MP, CBC, ADIFF, GFR, ANEU, MG #### [address] [address] Monocytes/100 WBC (Bld) 12.1 % Normal 2.0-13.[address] [facility] Comment on above: Performed By: #### B MP, CBC, ADIFF, GFR, ANEU, MG #### [address] [address] Neutrophils/100 WBC (Bld) 78.2 % High 50.0-75.[address] [facility] Comment on above: Performed By: #### B MP, CBC, ADIFF, GFR, ANEU, MG #### [address] [address] .GFRon 10-08-2024 Estimated Glomerular Filtration Rate 66 ml/min/1.73sqm Normal [facility] Comment on above: Result Comment: Stages of [...] MP, CBC, ADIFF, GFR, ANEU, MG #### [place] [address] .MDWon 10-08-2024 Monocyte Distribution Width 24.76 High 0.00-20.[address] [facility] Comment on above: Result Comment: For adults in ED, MDW>20.0 may be associated with a higher risk of sepsis during the first 12hrs of hospital admission Performed By: #### B MP, CBC, ADIFF, GFR, ANEU, MG #### [place] [address] .NEUABSon 10-08-2024 Neutrophil, Absolute 3.8 10 3/mcL Normal 2.3-8.1 [facility] Comment on above: Performed By: #### B MP, CBC, ADIFF, GFR, ANEU, MG #### [place] [address] .Urinalysis Microscopic (AO) on 10-08-2024 UA Coarse Granular Casts 0-[address] [facility] Comment on above: Performed By: #### B MP, CBC, ADIFF, GFR, ANEU, MG #### [place] [address] UA Hyal Cast 0-[address] [facility] Comment on above: Performed By: #### B MP, CBC, ADIFF, GFR, ANEU, MG #### [place] [address] UA Mucous 3+ /hpf Normal [facility] Comment on above: Performed By: #### B MP, CBC, ADIFF, GFR, ANEU, MG #### [place] [address] UA RBC 0-[address] Abnormal [address] [facility] Comment on above: Performed By: #### B MP, CBC, ADIFF, GFR, ANEU, MG #### [place] [address] UA Squam Epithelial 0-[address] [facility] Comment on above: Performed By: #### B MP, CBC, ADIFF, GFR, ANEU, MG #### [address] [address] UA WBC 15-25 Abnormal [address]en [facility] Comment on above: Performed By: #### B MP, CBC, ADIFF, GFR, ANEU, MG #### [address] [address] ACETAon 10-08-2024 Acetaminophen [Mass/Vol] 0.0 ug/mL Low 10.0-30.[address] [facility] Comment on above: Performed By: #### S AL, ACETA, ALC #### [address] [address] Linda 10-08-2024 Ethanol Level <[address] [facility] Comment on above: Performed By: #### U SE UA #### [address] [address] Noemí 10-08-2024 Ammonia (P) [Moles/Vol] 20 umol/L Normal 11-[address] [facility] Comment on above: Performed By: #### CARA MAYNARD #### [address] [address] APTTon 10-08-2024 aPTT Coag (Bld) [Time] 35.7 s High 25.0-35.0 [facility] Comment on above: Result Comment: For Heparin anticoagulation therapy, the recommended therapeutic range is: 45.4-75.9 seconds. Patients on heparin therapy may have an extreme result. Performed By: #### B MP, CBC, ADIFF, GFR, ANEU, MG #### [address] [address] CBCon 10-08-2024 Erythrocyte distribution width (RBC) [Ratio] 14.7 % Normal 11.5-15.[address] [facility] Comment on above: Performed By: #### B MP, CBC, ADIFF, GFR, ANEU, MG #### [place] [id number] Hematocrit (Bld) [Volume fraction] 29.4 % Low 40.0-52.[address] [facility] Comment on above: Performed By: #### B MP, CBC, ADIFF, GFR, ANEU, MG #### [place] [address] Hgb 10.2 G/dL Low 13.0-17.[address] [facility] Comment on above: Performed By: #### B MP, CBC, ADIFF, GFR, ANEU, MG #### [place] [address] MCH (RBC) [Entitic mass] 35.5 pg High 27.0-33.[address] [facility] Comment on above: Performed By: #### B MP, CBC, ADIFF, GFR, ANEU, MG #### [place] [address] MCHC 34.7 G/dL Normal 32.0-36.[address] [facility] Comment on above: Performed By: #### B MP, CBC, ADIFF, GFR, ANEU, MG #### [place] [id number] MCV (RBC) [Entitic vol] 102.3 fL High 81.0-100.[address] [facility] Comment on above: Performed By: #### B MP, CBC, ADIFF, GFR, ANEU, MG #### [place] [id number] Platelet 138 10 3/mcL Low 150-[address] [facility] Comment on above: Performed By: #### B MP, CBC, ADIFF, GFR, ANEU, MG #### [place] [address] Platelet mean volume (Bld) [Entitic vol] 9.2 fL Normal 6.4-10.[address] [facility] Comment on above: Performed By: #### B MP, CBC, ADIFF, GFR, ANEU, MG #### [place] [address] RBC 2.87 10 6/mcL Low 4.50-6.[address] [facility] Comment on above: Performed By: #### B MP, CBC, ADIFF, GFR, ANEU, MG #### [address] [address] WBC 4.8 10 3/mcL Normal 4.5-10.[address] [facility] Comment on above: Performed By: #### B MP, CBC, ADIFF, GFR, ANEU, MG #### [address] [address] CKon 10-08-2024 CK [Catalytic activity/Vol] 46 U/L Normal 39-[address] [facility] Comment on above: Performed By: #### B MP, CBC, ADIFF, GFR, ANEU, MG #### [address] [address] CMPon 10-08-2024 Albumin Level 2.8 G/dL Low 3.4-4.[address] [facility] Comment on above: Performed By: #### B MP, CBC, ADIFF, GFR, ANEU, MG #### [address] [address] Albumin/Globulin [Mass ratio] 0.6 {ratio} Low 1.1-2.[address] [facility] Comment on above: Performed By: #### B MP, CBC, ADIFF, GFR, ANEU, MG #### [address] [address] ALP [Catalytic activity/Vol] 155 U/L High 40-[address] [facility] Comment on above: Performed By: #### B MP, CBC, ADIFF, GFR, ANEU, MG #### [address] [address] ALT [Catalytic activity/Vol] 61 U/L Normal 16-[address] [facility] Comment on above: Performed By: #### B MP, CBC, ADIFF, GFR, ANEU, MG #### [address] [address] AST [Catalytic activity/Vol] 266 U/L High 10-[address] [facility] Comment on above: Performed By: #### B MP, CBC, ADIFF, GFR, ANEU, MG #### [address] [address] Bili Total 4.6 mg/dL High 0.2-1.[address] [facility] Comment on above: Result Comment: Use of this assay is not recommended for patients undergoing treatment with eltrombopag due to the potential for falsely elevated results. Performed By: #### B MP, CBC, ADIFF, GFR, ANEU, MG #### [address] [address] BUN/Creatinine Ratio 5 ratio Low 7-27 [facility] Comment on above: Performed By: #### B MP, CBC, ADIFF, GFR, ANEU, MG #### [address] [address] Calcium [Mass/Vol] 8.9 mg/dL Normal 8.4-10.2 [facility] Comment on above: Performed By: #### B MP, CBC, ADIFF, GFR, ANEU, MG #### [address] [address] Chloride [Moles/Vol] 97 mmol/L Low 98-107 [facility] Comment on above: Performed By: #### B MP, CBC, ADIFF, GFR, ANEU, MG #### [address] [address] CO2 [Moles/Vol] 29 mmol/L Normal 23-[address] [facility] Comment on above: Performed By: #### B MP, CBC, ADIFF, GFR, ANEU, MG #### [address] [address] Creatinine [Mass/Vol] 1.23 mg/dL Normal 0.70-1.30 [facility] Comment on above: Result Comment: Test ing performed on Siemens Dimension EXL analyzer using a modified kinetic Tri technique. Performed By: #### B MP, CBC, ADIFF, GFR, ANEU, MG #### [address] [place] [address] Electrolyte Balance 10.0 mEq/L Normal 4.0-15.0 [facility] Comment on above: Performed By: #### B MP, CBC, ADIFF, GFR, ANEU, MG #### [address] [address] Globulin 4.9 G/dL High 1.5-3.[address] [facility] Comment on above: Performed By: #### B MP, CBC, ADIFF, GFR, ANEU, MG #### [address] [address] Glucose [Mass/Vol] 126 mg/dL High 80-115 [facility] Comment on above: Performed By: #### B MP, CBC, ADIFF, GFR, ANEU, MG #### [address] [address] Potassium [Moles/Vol] 3.2 mmol/L Low 3.5-5.1 [facility] Comment on above: Performed By: #### B MP, CBC, ADIFF, GFR, ANEU, MG #### [address] [address] Sodium [Moles/Vol] 136 mmol/L Normal 136-145 [facility] Comment on above: Performed By: #### B MP, CBC, ADIFF, GFR, ANEU, MG #### [address] [address] Total Protein 7.7 G/dL Normal 6.4-8.[address] [facility] Comment on above: Performed By: #### B MP, CBC, ADIFF, GFR, ANEU, MG #### [address] [address] Urea nitrogen [Mass/Vol] 6 mg/dL Low 7-[address] [facility] Comment on above: Performed By: #### B MP, CBC, ADIFF, GFR, ANEU, MG #### [address] [address] [address] HEAD OR BRAIN W/O CARMELOAS Teddy [...] 3:42:37 PM Ordering Provider: TONG PIZARRO Normal [facility] CVFLURVon 10-08-2024 FLU A PCR Positive Abnormal Negative [facility] Comment on above: Performed By: #### R ESCVID #### [place] [address] FLU B PCR Negative Normal Negative [facility] Comment on above: Performed By: #### R ESCVID #### [place] [address] RSV PCR Negative Normal Negative [facility] Comment on above: Performed By: #### R ESCVID #### [place] [address] SARS-CoV-2 (COVID-19) RNA VIVIANE+probe Ql (Unsp spec) Negative Normal Negative [facility] Comment on above: Result Comment: Resu lts [...] results. Performed By: #### R ESCVID #### [place] [address] LABORATORYOrdered By: SYSTEM SYSTEM on 10-08-2024 Ammonia [...] Comment on above: Interpretive Data: Paul isbell [employer] (CHEST, 1992, 102:312S-25S) [...] ng/L Male: 0-76 ng/L Testing performed on Proximetry using a homogeneous sandwich chemiluminescent immunoassay based on [employer] technology. TSH Qn 0.66 m[IU]/L Normal 0.36 [...] Detected AH Auto Viro/Sero SS B. parapertussis [id number] DNA VIVIANE+non-probe Ql (Nph) Not Detected *NA* [...] his assay has been validated in the [facility] for use with nasopharyngeal specimens in [facility]. If a non-validated specimen or test collection [...] Lactic Acid Lvl 1.6 mmol/L Normal 0.4-2.[address] [facility] Comment on above: Performed By: #### R ESCVID #### [place] [address] LIPon 10-08-2024 Lipase Level 17 U/L Normal 16-[address] [facility] Comment on above: Performed By: #### B MP, CBC, ADIFF, GFR, ANEU, MG #### [address] [address] MGon 10-08-2024 Magnesium [Mass/Vol] 0.8 mg/dL Critically abnormal 1.8-2.[address] [facility] Comment on above: Performed By: #### B MP, CBC, ADIFF, GFR, ANEU, MG #### [address] [address] No Panel Informationon 10-08 Culture Urine No growth at 48 hours. [facility] Work Phone: Microscopic examination of blood, culture Culture has been received in lab and is no growth to date. Routine cultures are held for 5 days. [facility] Work Phone: PBNPon 10-08-2024 Natriuretic peptide B (Bld) [Mass/Vol] 946 pg/mL High 0-[address] [facility] Comment on above: Result Comment: NT-p roBNP results of less than 300 pg/mL effectively rules out acute congestive heart failure with 99% negative predictive value. Performed By: #### B MP, CBC, ADIFF, GFR, ANEU, MG #### [address] [address] PROon 10-08-2024 PT Coag (PPP) [Time] 15.4 s High 9.0-14.4 [facility] Comment on above: Performed By: #### B MP, CBC, ADIFF, GFR, ANEU, MG #### [address] [address] PT International Ratio 1.3 Normal [facility] Comment on above: Result Comment: [employer] (CHEST, 1992, 102:312S-25S) recommended therapeutic range for oral anticoagulant therapy is: LOW RISK: Prophylaxis of venous thrombosis INR: 2.0-3.0 Treatment of pulmonary embolism 2.0-3.0 Prevention of systemic embolism 2.0-3.0 HIGH RISK: Mechanical prosthetic valves 2.5-3.5 Performed By: #### B MP, CBC, ADIFF, GFR, ANEU, MG #### [place] [address] SALon 10-08-2024 Salicylate Level <0.2 Low 2.8-20.[address] [facility] Comment on above: Performed By: #### U AMICAO, UA #### [place] [address] TROPHSon 10-08-2024 High Sensitivity Troponin I 12 ng/L Normal 0-[address] [facility] Comment on above: Result Comment: High Sensitive Troponin I Reference Ranges: Female: 0-51 ng/L Male: 0-76 ng/L Testing performed on Proximetry using a homogeneous sandwich chemiluminescent immunoassay based on [employer] technology. Performed By: #### B MP, CBC, ADIFF, GFR, ANEU, MG #### [address] 10[address] TSH Qn 0.66 m[IU]/L Normal 0.36-3.[address] [facility] Comment on above: Performed By: #### B MP, CBC, ADIFF, GFR, ANEU, MG #### [address] 10-08-2024 Color (U) Brown Abnormal [facility] Comment on above: Performed By: #### B MP, CBC, ADIFF, GFR, ANEU, MG #### [place] [address] Glucose (U) [Mass/Vol] 100 mg/dL Abnormal Negative [facility] Comment on above: Performed By: #### B MP, CBC, ADIFF, GFR, ANEU, MG #### [place] [address] Ketones Ql (U) 15 mg/dL Abnormal Negative [facility] Comment on above: Performed By: #### B MP, CBC, ADIFF, GFR, ANEU, MG #### [address] Appear Cloudy Abnormal Clear [facility] Comment on above: Performed By: #### B MP, CBC, ADIFF, GFR, ANEU, MG #### [address] [address] UA Bili Large Abnormal Negative [facility] Comment on above: Result Comment: Sugg est correlation with serum bilirubin and clinical findings if medically necessary. Performed By: #### B MP, CBC, ADIFF, GFR, ANEU, MG #### [place] [address] UA Blood Trace Abnormal Negative [facility] Comment on above: Performed By: #### B MP, CBC, ADIFF, GFR, ANEU, MG #### [place] [address] UA Leuk Est Negative Normal Negative [facility] Comment on above: Performed By: #### B MP, CBC, ADIFF, GFR, ANEU, MG #### [place] [address] UA Nitrite Positive Abnormal Negative [facility] Comment on above: Performed By: #### B MP, CBC, ADIFF, GFR, ANEU, MG #### [place] [address] UA pH 5.5 Normal 5.0 - 8.[address] [facility] Comment on above: Performed By: #### B MP, CBC, ADIFF, GFR, ANEU, MG #### [place] [address] UA Protein >=[address] [facility] Comment on above: Performed By: #### B MP, CBC, ADIFF, GFR, ANEU, MG #### [place] [address] UA Spec Grav 1.025 Normal 1.015-1.[address] [facility] Comment on above: Performed By: #### B MP, CBC, ADIFF, GFR, ANEU, MG #### [place] [address] UA Specimen Type Clean Catch Normal [facility] Comment on above: Performed By: #### B MP, CBC, ADIFF, GFR, ANEU, MG #### [place] [address] UA Urobilinogen >=8.0 Abnormal 0.2-1.[address] [facility] Comment on above: Performed By: #### B MP, CBC, ADIFF, GFR, ANEU, MG #### [place] [address] UDRUGon 10-08-2024 Amphetamine (u) Negative Normal Negative [facility] Comment on above: Performed By: #### R ESCVID #### [place] [address] Barbiturate (u) Negative Normal Negative [facility] Comment on above: Performed By: #### R ESCVID #### [place] [id number] Benzodiazepine (u) Negative Normal Negative [facility] Comment on above: Performed By: #### R ESCVID #### [address] [address] Cannabinoid (u) Negative Normal Negative [facility] Comment on above: Performed By: #### R ESCVID #### [address] [address] Cocaine Ql (U) Negative Normal Negative [facility] Comment on above: Performed By: #### R ESCVID #### [address] [address] Methadone Ql (U) Negative Normal Negative [facility] Comment on above: Performed By: #### R ESCVID #### [address] [address] Opiate (u) Negative Normal Negative [facility] Comment on above: Performed By: #### R ESCVID #### [address] [address] PCP (u) Negative Normal Negative [facility] Comment on above: Performed By: #### R ESCVID #### [address] [address] Urine Drugs screened: See Below Normal [facility] Comment on above: Result Comment: This drug [...] ONLY. Performed By: #### R ESCVID #### [address] [address] XR CHEST 1 VIEWon 10-08-2024 XR CHEST [...] 10/08/2024 3:39:16 PM Ordering Provider: TONG PIZARRO Normal [facility] .Auto Diffon 08-05-2024 Basophil, Absolute 0.0 10 3/mcL Normal 0.0-0.2 [facility] Comment on above: Performed By: #### B MP, CBC, ADIFF, GFR, ANEU, MG #### [place] [address] [place], [place] [address] Basophils/100 WBC (Bld) 0.7 % Normal 0.0-2.[address] [facility] Comment on above: Performed By: #### B MP, CBC, ADIFF, GFR, ANEU, MG #### [place] [address] Eosinophil, Absolute 0.0 10 3/mcL Normal 0.0-0.7 [facility] Comment on above: Performed By: #### B MP, CBC, ADIFF, GFR, ANEU, MG #### [address] [address] Eosinophils/100 WBC (Bld) 0.8 % Normal 0.0-7.[address] [facility] Comment on above: Performed By: #### B MP, CBC, ADIFF, GFR, ANEU, MG #### [address] [address] Lymphocyte, Absolute 0.6 10 3/mcL Low 0.9-4.3 [facility] Comment on above: Performed By: #### B MP, CBC, ADIFF, GFR, ANEU, MG #### [address] [address] Lymphocytes/100 WBC (Bld) 30.6 % Normal 20.0-40.[address] [facility] Comment on above: Performed By: #### B MP, CBC, ADIFF, GFR, ANEU, MG #### [address] [address] Monocyte, Absolute 0.2 10 3/mcL Normal 0.1-1.4 [facility] Comment on above: Performed By: #### B MP, CBC, ADIFF, GFR, ANEU, MG #### [address] [address] Monocytes/100 WBC (Bld) 12.2 % Normal 2.0-13.[address] [facility] Comment on above: Performed By: #### B MP, CBC, ADIFF, GFR, ANEU, MG #### [address] [address] Neutrophils/100 WBC (Bld) 55.7 % Normal 50.0-75.[address] [facility] Comment on above: Performed By: #### B MP, CBC, ADIFF, GFR, ANEU, MG #### [address] [address] .GFRon 12-20-2024 GFR 85 ml/min/1.73sqm Normal [facility] Comment on above: Result Comment: GFR Population [...] meters Performed By: #### R ESCVID #### [address] [address] GFR Non- 70 ml/min/1.73sqm Normal [facility] Comment on above: Result Comment: GFR Population [...] meters Performed By: #### R ESCVID #### [address] [address] .MDWon 08-05-2024 Monocyte Distribution Width 22.28 High 0.00-20.[address] [facility] Comment on above: Result Comment: For adults in ED, MDW>20.0 may be associated with a higher risk of sepsis during the first 12hrs of hospital admission Performed By: #### B MP, CBC, ADIFF, GFR, ANEU, MG #### [address] [address] .Morphon 08-05-2024 Platelet Estimate Grt Decreased Normal [facility] Comment on above: Performed By: #### B MP, CBC, ADIFF, GFR, ANEU, MG #### [address] [address] RBC morphology finding Nom (Bld) Normal Normal [facility] Comment on above: Performed By: #### B MP, CBC, ADIFF, GFR, ANEU, MG #### [address] [address] .NEUABSon 08-05-2024 Neutrophil, Absolute 1.1 10 3/mcL Low 2.3-8.1 [facility] Comment on above: Performed By: #### B MP, CBC, ADIFF, GFR, ANEU, MG #### [place] [address] .Urinalysis Microscopic (AO) on 08-05-2024 UA RBC 0-[address] [facility] Comment on above: Performed By: #### U AMICAO, UA #### [place] [id number] UA Squam Epithelial 0-[address] [facility] Comment on above: Performed By: #### U AMICAO, UA #### [place] [id number] UA WBC 0-5 Abnormal [address]en [facility] Comment on above: Performed By: #### U AMICAO, UA #### [address] [address] BMPon 08-05-2024 BUN/Creatinine Ratio 7 ratio Normal 7-27 [facility] Comment on above: Performed By: #### R ESCOLIVIA #### [facility] [address] [place] [address] Calcium [Mass/Vol] 8.5 mg/dL Normal 8.4-10.2 [facility] Comment on above: Performed By: #### R BRANDNO #### [address] [address] Chloride [Moles/Vol] 103 mmol/L Normal 98-107 [facility] Comment on above: Performed By: #### R ESCVID #### [address] [address] CO2 [Moles/Vol] 26 mmol/L Normal 23-[address] [facility] Comment on above: Performed By: #### R ESCVID #### [address] [address] Creatinine [Mass/Vol] 1.06 mg/dL Normal 0.70-1.30 [facility] Comment on above: Result Comment: Test ing performed on Siemens Dimension EXL analyzer using a modified kinetic Tri technique. Performed By: #### R ESCVIStaci #### [address] [address] Electrolyte Balance 13.0 mEq/L Normal 4.0-15.0 [facility] Comment on above: Performed By: #### R ESCVID #### [address] [address] Glucose [Mass/Vol] 92 mg/dL Normal 80-115 [facility] Comment on above: Performed By: #### R ESCOLIVIA #### [address] [address] Potassium [Moles/Vol] 3.4 mmol/L Low 3.5-5.1 [facility] Comment on above: Performed By: #### R ESCVIStaci #### [address] [address] Sodium [Moles/Vol] 142 mmol/L Normal 136-145 [facility] Comment on above: Performed By: #### R ESCVID #### [address] [address] Urea nitrogen [Mass/Vol] 7 mg/dL Normal 7-[address] [facility] Comment on above: Performed By: #### R ESCOLIVIA #### [address] [address] CBCon 08-05-2024 Erythrocyte distribution width (RBC) [Ratio] 18.1 % High 11.5-15.[address] [facility] Comment on above: Performed By: #### R ESCVIStaci #### [place] [address] Hematocrit (Bld) [Volume fraction] 36.1 % Low 40.0-52.[address] [facility] Comment on above: Performed By: #### R ESCVIStaci #### [place] [address] Hgb 12.3 G/dL Low 13.0-17.[address] [facility] Comment on above: Performed By: #### R ESCOLIVIA #### [place] [address] MCH (RBC) [Entitic mass] 34.7 pg High 27.0-33.[address] [facility] Comment on above: Performed By: #### R ESCVIStaci #### [place] [address] MCHC 33.9 G/dL Normal 32.0-36.[address] [facility] Comment on above: Performed By: #### R ESCOLIVIA #### [place] [address] MCV (RBC) [Entitic vol] 102.4 fL High 81.0-100.[address] [facility] Comment on above: Performed By: #### R ESCOLIVIA #### [place] [address] Platelet 52 10 3/mcL Low 150-[address] [facility] Comment on above: Performed By: #### R ESCVIStaci #### [place] [address] Platelet mean volume (Bld) [Entitic vol] 8.8 fL Normal 6.4-10.[address] [facility] Comment on above: Performed By: #### R ESCOLIVIA #### [place] [address] RBC 3.53 10 6/mcL Low 4.50-6.[address] [facility] Comment on above: Performed By: #### R ESCVID #### [address] [address] WBC 2.0 10 3/mcL Low 4.5-10.[address] [facility] Comment on above: Performed By: #### R ESCVID #### [place] [address] [place] [address] LABORATORYOrdered By: Michael carbajal on 08-05-2024 Appearance [...] 08-05-2024 Magnesium [Mass/Vol] 1.1 mg/dL Low 1.8-2.4 [facility] Comment on above: Performed By: #### R ESCVID #### [facility] [address] [place] [address] UAon 08-05-2024 Color (U) Yellow Normal [facility] Comment on above: Performed By: #### U CARA SAEZ #### [address] [address] Glucose (U) [Mass/Vol] Negative Normal Negative [facility] Comment on above: Performed By: #### U CARA SAEZ #### [address] [address] Ketones Ql (U) Negative Normal Negative [facility] Comment on above: Performed By: #### U AMICAO, UA #### [place] [address] UA Appear Clear Normal Clear [facility] Comment on above: Performed By: #### U AMICAO, UA #### [place] [id number] UA Blood Trace Abnormal Negative [facility] Comment on above: Performed By: #### U AMICAO, UA #### [place] [address] UA Leuk Est Negative Normal Negative [facility] Comment on above: Performed By: #### U AMICAO, UA #### [place] [address] UA Nitrite Negative Normal Negative [facility] Comment on above: Performed By: #### U AMICAO, UA #### [place] [address] UA pH 6.0 Normal 5.0 - 8.[address] [facility] Comment on above: Performed By: #### U AMICAO, UA #### [place] [address] UA Protein 100 mg/dL Abnormal Negative [facility] Comment on above: Performed By: #### U AMICAO, UA #### [place] [address] UA Spec Grav 1.020 Normal 1.015-1.[address] [place] [address] Comment on above: Performed By: #### U AMICAO, UA #### [address] [address] UA Specimen Type Clean Catch Normal [facility] Comment on above: Performed By: #### U AMICAO, UA #### [place] [address] UA Urobilinogen 2.0 E.U./dL Abnormal 0.2-1.[address] [facility] Comment on above: Performed By: #### U AMICAO, UA #### [facility] [address] [place], [place] [address] Urobilinogen (U) [Mass/Vol] Negative Normal Negative [facility] Comment on above: Performed By: #### U CARA SAEZ #### [facility] [address] [place], [place] [address] XR CHEST 1 VIEWon 08-05-2024 XR CHEST [...] 08/05/2024 5:21:45 PM Ordering Provider: EMILIE Meeks [facility] XR CHEST 1 VIEWon 05-26-2024 XR CHEST [...] 05/26/2024 2:51:00 AM Ordering Provider: CHARLIE Meeks [facility] .Auto Diffon 05-16-2024 Basophil, Absolute 0.0 10 3/mcL Normal 0.0-0.3 [facility] Comment on above: Performed By: #### B MP, CBC, ADIFF, ANEU, GFR #### [address] [address] Basophils/100 WBC (Bld) 0.6 % Normal 0.0-2.5 [facility] Comment on above: Performed By: #### B MP, CBC, ADIFF, ANEU, GFR #### [address] [address] Eosinophil, Absolute 0.1 10 3/mcL Normal 0.0-0.7 [facility] Comment on above: Performed By: #### B MP, CBC, ADIFF, ANEU, GFR #### [address] [address] Eosinophils/100 WBC (Bld) 2.6 % Normal 0.0-6.0 [facility] Comment on above: Performed By: #### B MP, CBC, ADIFF, ANEU, GFR #### [address] [address] Lymphocyte, Absolute 1.3 10 3/mcL Normal 0.9-4.3 [facility] Comment on above: Performed By: #### B MP, CBC, ADIFF, ANEU, GFR #### [address] [address] Lymphocytes/100 WBC (Bld) 35.4 % Normal 20.0-40.0 [facility] Comment on above: Performed By: #### B MP, CBC, ADIFF, ANEU, GFR #### [address] [address] Monocyte, Absolute 0.4 10 3/mcL Normal 0.1-1.4 [facility] Comment on above: Performed By: #### B MP, CBC, ADIFF, ANEU, GFR #### [address] [address] Monocytes/100 WBC (Bld) 11.3 % Normal 2.0-13.0 [facility] Comment on above: Performed By: #### B MP, CBC, ADIFF, ANEU, GFR #### [address] [address] Neutrophils/100 WBC (Bld) 50.1 % Normal 50.0-75.0 [facility] Comment on above: Performed By: #### B MP, CBC, ADIFF, ANEU, GFR #### [address] [address] .GFRon 05-16-2024 GFR Non- >60 Normal [facility] Comment on above: Result Comment: GFR [...] B MP, CBC, ADIFF, ANEU, GFR #### [address] [address] GFR >60 Normal [facility] Comment on above: Result Comment: [...] B MP, CBC, ADIFF, ANEU, GFR #### [address] [address] .NEUABSon 05-16-2024 Neutrophil, Absolute 1.8 10 3/mcL Low 2.3-8.1 [facility] Comment on above: Performed By: #### B MP, CBC, ADIFF, ANEU, GFR #### [address] [address] BMPon 05-16-2024 BUN/Creatinine Ratio 15.7 ratio Normal 10.0-22.0 [facility] Comment on above: Performed By: #### B MP, CBC, ADIFF, ANEU, GFR #### [place] [address] Calcium [Mass/Vol] 8.9 mg/dL Normal 8.7-10.4 [facility] Comment on above: Performed By: #### B MP, CBC, ADIFF, ANEU, GFR #### [place] [address] Chloride [Moles/Vol] 109 mmol/L Normal 98-110 [facility] Comment on above: Performed By: #### B MP, CBC, ADIFF, ANEU, GFR #### [place] [address] CO2 [Moles/Vol] 27 mmol/L Normal 22-32 [facility] Comment on above: Performed By: #### B MP, CBC, ADIFF, ANEU, GFR #### [place] [address] Creatinine [Mass/Vol] 0.89 mg/dL Normal 0.60-1.40 [facility] Comment on above: Result Comment: Test ing performed on Thubrikar Aortic Valve analyzer using enzymatic creatinine methodology. Performed By: #### B MP, CBC, ADIFF, ANEU, GFR #### [place] [address] Electrolyte Balance 2.0 mEq/L Low 4.0-15.0 [facility] Comment on above: Performed By: #### B MP, CBC, ADIFF, ANEU, GFR #### [place] [address] Glucose [Mass/Vol] 108 mg/dL Normal 82-115 [facility] Comment on above: Performed By: #### B MP, CBC, ADIFF, ANEU, GFR #### [place] [id number] Potassium [Moles/Vol] 3.9 mmol/L Normal 3.5-5.0 [facility] Comment on above: Performed By: #### B MP, CBC, ADIFF, ANEU, GFR #### [place] [id number] Sodium [Moles/Vol] 138 mmol/L Normal 136-145 [facility] Comment on above: Performed By: #### B MP, CBC, ADIFF, ANEU, GFR #### [place] [id number] Urea nitrogen [Mass/Vol] 14.0 mg/dL Normal 8.0-22.0 [facility] Comment on above: Performed By: #### B MP, CBC, ADIFF, ANEU, GFR #### [address] [address] CBCon 05-16-2024 Erythrocyte distribution width (RBC) [Ratio] 14.9 % Normal 11.5-15.5 [facility] Comment on above: Performed By: #### B MP, CBC, ADIFF, ANEU, GFR #### [place] [phone] Hematocrit (Bld) [Volume fraction] 28.5 % Low 40.0-52.0 [facility] Comment on above: Performed By: #### B MP, CBC, ADIFF, ANEU, GFR #### [address] [address] Hgb 9.5 G/dL Low 13.0-17.5 [facility] Comment on above: Performed By: #### B MP, CBC, ADIFF, ANEU, GFR #### [place] [id number] MCH (RBC) [Entitic mass] 35.1 pg High 27.0-33.0 [facility] Comment on above: Performed By: #### B MP, CBC, ADIFF, ANEU, GFR #### [place] [address] MCHC 33.4 G/dL Normal 32.0-36.0 [facility] Comment on above: Performed By: #### B MP, CBC, ADIFF, ANEU, GFR #### [place] [address] MCV (RBC) [Entitic vol] 105.0 fL High 81.0-100.0 [facility] Comment on above: Performed By: #### B MP, CBC, ADIFF, ANEU, GFR #### [place] [address] Platelet 172 10 3/mcL Normal 150-450 [facility] Comment on above: Performed By: #### B MP, CBC, ADIFF, ANEU, GFR #### [place] [address] Platelet mean volume (Bld) [Entitic vol] 7.7 fL Normal 6.4-10.5 [facility] Comment on above: Performed By: #### B MP, CBC, ADIFF, ANEU, GFR #### [place] [address] RBC 2.72 10 6/mcL Low 4.50-6.00 [facility] Comment on above: Performed By: #### B MP, CBC, ADIFF, ANEU, GFR #### [place] [address] WBC 3.6 10 3/mcL Low 4.5-10.8 [facility] Comment on above: Performed By: #### B MP, CBC, ADIFF, ANEU, GFR #### [place] [address] LABORATORYOrdered By: SYSTEM SYSTEM on 05-16-2024 Basophils [...] above: Interpretive Data: T esting performed on Thubrikar Aortic Valve analyzer using enzymatic creatinine methodology. Electrolyte Balance [...] (S/P/Bld) [Vol rate/Area] ml/min/1.73sqm Invalid Interpretation Code [employer] [facility] Comment on above: Interpretive Data: [...] (S/P/Bld) [Vol rate/Area] ml/min/1.73sqm Invalid Interpretation Code [employer] [facility] Comment on above: Interpretive Data: [...] 05/16/2024 6:34:24 AM Ordering Provider: JANET Meeks [facility] .Auto Diffon 05-15-2024 Basophil, Absolute 0.0 10 3/mcL Normal 0.0-0.2 [facility] Comment on above: Performed By: #### B MP, CBC, ADIFF, GFR, ANEU, MG #### [address] [address] Basophils/100 WBC (Bld) 0.9 % Normal 0.0-2.[address] [facility] Comment on above: Performed By: #### B MP, CBC, ADIFF, GFR, ANEU, MG #### [address] [address] Eosinophil, Absolute 0.0 10 3/mcL Normal 0.0-0.7 [facility] Comment on above: Performed By: #### B MP, CBC, ADIFF, GFR, ANEU, MG #### [address] [address] Eosinophils/100 WBC (Bld) 0.3 % Normal 0.0-7.[address] [facility] Comment on above: Performed By: #### B MP, CBC, ADIFF, GFR, ANEU, MG #### [address] [address] Lymphocyte, Absolute 1.1 10 3/mcL Normal 0.9-4.3 [facility] Comment on above: Performed By: #### B MP, CBC, ADIFF, GFR, ANEU, MG #### [address] [address] Lymphocytes/100 WBC (Bld) 21.3 % Normal 20.0-40.[address] [facility] Comment on above: Performed By: #### B MP, CBC, ADIFF, GFR, ANEU, MG #### [address] [address] Monocyte, Absolute 0.6 10 3/mcL Normal 0.1-1.4 [facility] Comment on above: Performed By: #### B MP, CBC, ADIFF, GFR, ANEU, MG #### [address] [address] Monocytes/100 WBC (Bld) 11.1 % Normal 2.0-13.[address] [facility] Comment on above: Performed By: #### B MP, CBC, ADIFF, GFR, ANEU, MG #### [address] [address] Neutrophils/100 WBC (Bld) 66.4 % Normal 50.0-75.[address] [facility] Comment on above: Performed By: #### B MP, CBC, ADIFF, GFR, ANEU, MG #### [address] [address] .GFRon 05-15-2024 GFR 110 ml/min/1.73sqm Normal [facility] Comment on above: Result Comment: GFR Population [...] MP, CBC, ADIFF, GFR, ANEU, MG #### [address] [address] GFR Non- 91 ml/min/1.73sqm [facility] Comment on above: Result Comment: [...] MP, CBC, ADIFF, GFR, ANEU, MG #### [address] [address] .MDWon 05-15-2024 Monocyte Distribution Width 21.81 High 0.00-20.[address] [facility] Comment on above: Result Comment: For adults in ED, MDW>20.0 may be associated with a higher risk of sepsis during the first 12hrs of hospital admission Performed By: #### B MP, CBC, ADIFF, GFR, ANEU, MG #### [place] [address] .NEUABSon 05-15-2024 Neutrophil, Absolute 3.5 10 3/mcL Normal 2.3-8.1 [facility] Comment on above: Performed By: #### B MP, CBC, ADIFF, GFR, ANEU, MG #### [place] [address] [place] 05-15-2024 Ethanol Level <3 Normal 0-[address] [facility] Comment on above: Performed By: #### B MP, CBC, ADIFF, GFR, ANEU, MG #### [place] [address] APTTon 05-15-2024 aPTT Coag (Bld) [Time] 40.3 s High 25.0-35.0 [facility] Comment on above: Result Comment: For Heparin anticoagulation therapy, the recommended therapeutic range is: 45.4-75.9 seconds. Patients on heparin therapy may have an extreme result. Performed By: #### B MP, CBC, ADIFF, GFR, ANEU, MG #### [place] [address] CBCon 05-15-2024 Erythrocyte distribution width (RBC) [Ratio] 14.8 % Normal 11.5-15.[address] [facility] Comment on above: Performed By: #### B MP, CBC, ADIFF, GFR, ANEU, MG #### [place] [address] Hematocrit (Bld) [Volume fraction] 32.5 % Low 40.0-52.[address] [facility] Comment on above: Performed By: #### B MP, CBC, ADIFF, GFR, ANEU, MG #### [place] [address] Hgb 10.9 G/dL Low 13.0-17.[address] [facility] Comment on above: Performed By: #### B MP, CBC, ADIFF, GFR, ANEU, MG #### [address] [address] MCH (RBC) [Entitic mass] 35.2 pg High 27.0-33.[address] [facility] Comment on above: Performed By: #### B MP, CBC, ADIFF, GFR, ANEU, MG #### [address] [address] MCHC 33.5 G/dL Normal 32.0-36.[address] [facility] Comment on above: Performed By: #### B MP, CBC, ADIFF, GFR, ANEU, MG #### [address] [address] MCV (RBC) [Entitic vol] 105.0 fL High 81.0-100.[address] [facility] Comment on above: Performed By: #### B MP, CBC, ADIFF, GFR, ANEU, MG #### [place] [id number] Platelet 193 10 3/mcL Normal 150-[address] [facility] Comment on above: Performed By: #### B MP, CBC, ADIFF, GFR, ANEU, MG #### [address] [address] Platelet mean volume (Bld) [Entitic vol] 7.6 fL Normal 6.4-10.[address] [facility] Comment on above: Performed By: #### B MP, CBC, ADIFF, GFR, ANEU, MG #### [place] [id number] RBC 3.10 10 6/mcL Low 4.50-6.[address] [facility] Comment on above: Performed By: #### B MP, CBC, ADIFF, GFR, ANEU, MG #### [place] [id number] WBC 5.2 10 3/mcL Normal 4.5-10.[address] [facility] Comment on above: Performed By: #### B MP, CBC, ADIFF, GFR, ANEU, MG #### [place] [id number] CMPon 05-15-2024 Albumin Level 3.3 G/dL Low 3.4-4.[address] [facility] Comment on above: Performed By: #### B MP, CBC, ADIFF, GFR, ANEU, MG #### [address] [address] Albumin/Globulin [Mass ratio] 0.7 {ratio} Low 1.1-2.[address] [facility] Comment on above: Performed By: #### B MP, CBC, ADIFF, GFR, ANEU, MG #### [address] [address] ALP [Catalytic activity/Vol] 121 U/L Normal 40-[address] [facility] Comment on above: Performed By: #### B MP, CBC, ADIFF, GFR, ANEU, MG #### [address] [address] ALT [Catalytic activity/Vol] 81 U/L High 16-[address] [facility] Comment on above: Performed By: #### B MP, CBC, ADIFF, GFR, ANEU, MG #### [address] [address] AST [Catalytic activity/Vol] 123 U/L High 10-[address] [facility] Comment on above: Performed By: #### B MP, CBC, ADIFF, GFR, ANEU, MG #### [address] [address] Bili Total 1.0 mg/dL Normal 0.2-1.[address] [facility] Comment on above: Result Comment: Use of this assay is not recommended for patients undergoing treatment with eltrombopag due to the potential for falsely elevated results. Performed By: #### B MP, CBC, ADIFF, GFR, ANEU, MG #### [address] [address] BUN/Creatinine Ratio 13 ratio Normal 7-27 [facility] Comment on above: Performed By: #### B MP, CBC, ADIFF, GFR, ANEU, MG #### [address] [address] Calcium [Mass/Vol] 9.3 mg/dL Normal 8.4-10.2 [facility] Comment on above: Performed By: #### B MP, CBC, ADIFF, GFR, ANEU, MG #### [place] [address] Chloride [Moles/Vol] 101 mmol/L Normal 98-107 [facility] Comment on above: Performed By: #### B MP, CBC, ADIFF, GFR, ANEU, MG #### [place] [address] CO2 [Moles/Vol] 27 mmol/L Normal 23-[address] [facility] Comment on above: Performed By: #### B MP, CBC, ADIFF, GFR, ANEU, MG #### [place] [address] Creatinine [Mass/Vol] 0.85 mg/dL Normal 0.70-1.30 [facility] [place] Comment on above: Result Comment: Test ing performed on Bring Light Dimension EXL analyzer using a modified kinetic Tri technique. Performed By: #### B MP, CBC, ADIFF, GFR, ANEU, MG #### [place] [address] Electrolyte Balance 9.0 mEq/L Normal 4.0-15.0 [facility] Comment on above: Performed By: #### B MP, CBC, ADIFF, GFR, ANEU, MG #### [place] [address] Globulin 4.8 G/dL Normal [facility] Comment on above: Performed By: #### B MP, CBC, ADIFF, GFR, ANEU, MG #### [place] [address] Glucose [Mass/Vol] 105 mg/dL Normal 80-115 [facility] Comment on above: Performed By: #### B MP, CBC, ADIFF, GFR, ANEU, MG #### [place] [address] Potassium [Moles/Vol] 3.9 mmol/L Normal 3.5-5.1 [facility] [place] Comment on above: Performed By: #### B MP, CBC, ADIFF, GFR, ANEU, MG #### [place] [address] [place], [place] [address] Sodium [Moles/Vol] 137 mmol/L Normal 136-145 [facility] Comment on above: Performed By: #### B MP, CBC, ADIFF, GFR, ANEU, MG #### [address] [address] Total Protein 8.1 G/dL Normal 6.4-8.[address] [facility] Comment on above: Performed By: #### B MP, CBC, ADIFF, GFR, ANEU, MG #### [place] [address] [place], [place] [address] Urea nitrogen [Mass/Vol] 11 mg/dL Normal 7-[address] [facility] Comment on above: Performed By: #### B MP, CBC, ADIFF, GFR, ANEU, MG #### [address] [address] [address] ABD/PELVIS W/ IV CONTRAST ONLYon 05-15-2024 [...] 05/15/2024 1:23:26 PM Ordering Provider: ALEXANDRA PALAFOX [facility] CT THORAX W/O CONTRASTon CT [...] 05/15/2024 1:23:26 PM Ordering Provider: ALEXANDRA PALAFOX [facility] LABORATORYOrdered By: SYSTEM SYSTEM on [...] Comment on above: Interpretive Data: Paul isbell [employer] (CHEST, 1992, 102:312S-25S) [...] 05-15-2024 Magnesium [Mass/Vol] 1.6 mg/dL Low 1.8-2.4 [facility] Comment on above: Performed By: #### B MP, CBC, ADIFF, GFR, ANEU, MG #### [address] [address] PROon 05-15-2024 PT Coag (PPP) [Time] 13.1 s Normal 9.0-14.4 [facility] Comment on above: Performed By: #### B MP, CBC, ADIFF, GFR, ANEU, MG #### [address] [address] PT International Ratio 1.1 Normal [facility] Comment on above: Result Comment: [employer] (CHEST, 1992, 102:312S-25S) recommended therapeutic range for oral anticoagulant therapy is: LOW RISK: Prophylaxis of venous thrombosis INR: 2.0-3.0 Treatment of pulmonary embolism 2.0-3.0 Prevention of systemic embolism 2.0-3.0 HIGH RISK: Mechanical prosthetic valves 2.5-3.5 Performed By: #### B MP, CBC, ADIFF, GFR, ANEU, MG #### [address] [address] UAon 05-15-2024 Color (U) Yellow Normal [facility] Comment on above: Performed By: #### B MP, CBC, ADIFF, GFR, ANEU, MG #### [address] [address] Glucose (U) [Mass/Vol] Negative Normal Negative [facility] Comment on above: Performed By: #### B MP, CBC, ADIFF, GFR, ANEU, MG #### [address] [address] Ketones Ql (U) Negative Normal Negative [facility] Comment on above: Performed By: #### B MP, CBC, ADIFF, GFR, ANEU, MG #### [address] [address] UA Appear Clear Normal Clear [facility] Comment on above: Performed By: #### B MP, CBC, ADIFF, GFR, ANEU, MG #### [address] [address] UA Blood Negative Normal Negative [facility] Comment on above: Performed By: #### B MP, CBC, ADIFF, GFR, ANEU, MG #### [address] [address] UA Leuk Est Negative Normal Negative [facility] Comment on above: Performed By: #### B MP, CBC, ADIFF, GFR, ANEU, MG #### [place] [address] UA Nitrite Negative Normal Negative [facility] Comment on above: Performed By: #### B MP, CBC, ADIFF, GFR, ANEU, MG #### [place] [address] UA pH 7.0 Normal 5.0 - 8.[address] [facility] Comment on above: Performed By: #### B MP, CBC, ADIFF, GFR, ANEU, MG #### [place] [address] UA Protein Trace Normal Negative [facility] Comment on above: Performed By: #### B MP, CBC, ADIFF, GFR, ANEU, MG #### [place] [address] UA Spec Grav 1.025 Normal 1.015-1.[address] [facility] Comment on above: Performed By: #### B MP, CBC, ADIFF, GFR, ANEU, MG #### [place] [address] UA Specimen Type Clean Catch Normal [facility] Comment on above: Performed By: #### B MP, CBC, ADIFF, GFR, ANEU, MG #### [place] [address] UA Urobilinogen 2.0 E.U./dL Abnormal 0.2-1.[address] [facility] Comment on above: Performed By: #### B MP, CBC, ADIFF, GFR, ANEU, MG #### [address] [address] Urobilinogen (U) [Mass/Vol] Negative Normal Negative [facility] Comment on above: Performed By: #### B MP, CBC, ADIFF, GFR, ANEU, MG #### [place] [address] UDRUGon 05-15-2024 Amphetamine (u) Negative Normal Negative [facility] Comment on above: Performed By: #### B MP, CBC, ADIFF, GFR, ANEU, MG #### [address] [address] Barbiturate (u) Negative Normal Negative [facility] Comment on above: Performed By: #### B MP, CBC, ADIFF, GFR, ANEU, MG #### [address] [address] Benzodiazepine (u) Negative Normal Negative [facility] Comment on above: Performed By: #### B MP, CBC, ADIFF, GFR, ANEU, MG #### [address] [address] Cannabinoid (u) Negative Normal Negative [facility] Comment on above: Performed By: #### B MP, CBC, ADIFF, GFR, ANEU, MG #### [address] [address] Cocaine Ql (U) Negative Normal Negative [facility] Comment on above: Performed By: #### B MP, CBC, ADIFF, GFR, ANEU, MG #### [address] [address] Methadone Ql (U) Negative Normal Negative [facility] Comment on above: Performed By: #### B MP, CBC, ADIFF, GFR, ANEU, MG #### [place] [address] Opiate (u) Negative Normal Negative [facility] Comment on above: Performed By: #### B MP, CBC, ADIFF, GFR, ANEU, MG #### [address] [address] PCP (u) Negative Normal Negative [facility] Comment on above: Performed By: #### B MP, CBC, ADIFF, GFR, ANEU, MG #### [place] [address] [place], [place] [address] Urine Drugs screened: See Below Normal [facility] Comment on above: Result Comment: [...] MP, CBC, ADIFF, GFR, ANEU, MG #### [address] [address] XR CHEST 1 VIEWon 05-15-2024 XR CHEST [...] 05/15/2024 3:44:23 PM Ordering Provider: NATHANIEL CARUSO [facility] .Auto Diffon 03-29-2024 Basophil, Absolute 0.0 10 3/mcL Normal 0.0-0.3 [facility] ([place]) Comment on above: Performed By: #### C BC, LYNNE, MDW, CMP, GFR, DIFF, ALC, TROPHS #### [address] [address] Basophils/100 WBC (Bld) 0.9 % Normal 0.0-2.5 [facility] ([place] Comment on above: Performed By: #### C BC, MORPH, MDW, CMP, GFR, DIFF, ALC, TROPHS #### [address] [address] Eosinophil, Absolute 0.0 10 3/mcL Normal 0.0-0.7 [facility] ([place] Comment on above: Performed By: #### C BC, LYNNE, MDW, CMP, GFR, DIFF, ALC, TROPHS #### [address] [address] Eosinophils/100 WBC (Bld) 0.5 % Normal 0.0-6.0 [facility] ([place] Comment on above: Performed By: #### C BC, LYNNE, MDW, CMP, GFR, DIFF, ALC, TROPHS #### [address] [address] Lymphocyte, Absolute 0.8 10 3/mcL Low 0.9-4.3 [facility] ([place] Comment on above: Performed By: #### C BC, LYNNE, MDW, CMP, GFR, DIFF, ALC, TROPHS #### [address] [address] Lymphocytes/100 WBC (Bld) 23.9 % Normal 20.0-40.0 [facility] ([place] Comment on above: Performed By: #### C BC, MORPH, MDW, CMP, GFR, DIFF, ALC, TROPHS #### [address] [address] Monocyte, Absolute 0.4 10 3/mcL Normal 0.1-1.4 [facility] ([place]) Comment on above: Performed By: #### C KRISTI, LYNNE, MDW, CMP, GFR, DIFF, ALC, TROPHS #### [address] [address] Monocytes/100 WBC (Bld) 11.9 % Normal 2.0-13.0 [facility] ([place] Comment on above: Performed By: #### C BC, LYNNE, MDW, CMP, GFR, DIFF, ALC, TROPHS #### [address] [address] Neutrophils/100 WBC (Bld) 62.8 % Normal 50.0-75.0 [facility] ([place] Comment on above: Performed By: #### C BC, LYNNE, MDW, CMP, GFR, DIFF, ALC, TROPHS #### [address] [address] .GFRon 03-29-2024 GFR >60 Normal [facility] ([place] Comment on above: Result Comment: GFR Population [...] MDW, CMP, GFR, DIFF, ALC, TROPHS #### [address] [address] GFR Non- >60 Normal [facility] ([place] Comment on above: Result Comment: GFR Population [...] MDW, CMP, GFR, DIFF, ALC, TROPHS #### [address] [address] .MDWon 03-29-2024 Monocyte Distribution Width 24.00 High 0.00-20.00 [facility] ([place] Comment on above: Result Comment: For adults in ED, MDW>20.0 may be associated with a higher risk of sepsis during the first 12hrs of hospital admission Performed By: #### C KRISTI, JOHNNIE BATISTA, CMP, GFR, DIFF, ALC, TROPHS #### [address] [address] .NEUABSon 03-29-2024 Neutrophil, Absolute 2.0 10 3/mcL Low 2.3-8.1 [facility] ([place] Comment on above: Performed By: #### C KRISTI, LYNNE, MDW, CMP, GFR, DIFF, ALC, TROPHS #### [address] [address] Noemí 03-29-2024 Ammonia 23 mcmol/l Normal 11-32 [facility] ([place] Comment on above: Order Comment: hemol yzed. 03/29/2024 20:30:43 EDT Performed By: #### C KRISTI, LYNNE, W, CMP, GFR, DIFF, ALC, TROPHS #### [address] [address] CBCon 03-29-2024 Erythrocyte distribution width (RBC) [Ratio] 16.1 % High 11.5-15.5 [facility] ([place] Comment on above: Performed By: #### C BC, LYNNE, W, CMP, GFR, DIFF, ALC, TROPHS #### [address] [address] Hematocrit (Bld) [Volume fraction] 33.5 % Low 40.0-52.0 [facility] ([place] Comment on above: Performed By: #### C BC, LYNNE, MDW, CMP, GFR, DIFF, ALC, TROPHS #### [address] [address] Hgb 11.4 G/dL Low 13.0-17.5 [facility] ([place] Comment on above: Performed By: #### C BC, MORPH, MDW, CMP, GFR, DIFF, ALC, TROPHS #### [place] [id number] MCH (RBC) [Entitic mass] 36.8 pg High 27.0-33.0 [facility] ([place] Comment on above: Performed By: #### C BC, LYNNE, MDW, CMP, GFR, DIFF, ALC, TROPHS #### [place] [address] MCHC 34.2 G/dL Normal 32.0-36.0 [facility] ([place] Comment on above: Performed By: #### C BC, LYNNE, MDW, CMP, GFR, DIFF, ALC, TROPHS #### [address] [address] MCV (RBC) [Entitic vol] 107.7 fL High 81.0-100.0 [facility] ([place] Comment on above: Performed By: #### C BC, MORPH, MDW, CMP, GFR, DIFF, ALC, TROPHS #### [address] [address] Platelet 119 10 3/mcL Low 150-450 [facility] ([place] Comment on above: Performed By: #### C BC, MORPH, MDW, CMP, GFR, DIFF, ALC, TROPHS #### [address] [address] Platelet mean volume (Bld) [Entitic vol] 8.9 fL Normal 6.4-10.5 [facility] ([place] Comment on above: Performed By: #### C KRISTI, LYNNE, JOHNNIE, CMP, GFR, DIFF, ALC, TROPHS #### [address] [address] RBC 3.11 10 6/mcL Low 4.50-6.00 [facility] ([place] Comment on above: Performed By: #### C KRISTI, LYNNE, W, CMP, GFR, DIFF, ALC, TROPHS #### [address] [address] WBC 3.1 10 3/mcL Low 4.5-10.8 [facility] ([place] Comment on above: Performed By: #### C KRISTI, LYNNE, JOHNNIE, CMP, GFR, DIFF, ALC, TROPHS #### [address] [address] CKon 03-29-2024 CK [Catalytic activity/Vol] 42 U/L Normal 7-185 [facility] ([place] Comment on above: Result Comment: Spec imen slightly hemolyzed. Performed By: #### C KRISTI, LYNNE, JOHNNIE, CMP, GFR, DIFF, ALC, TROPHS #### [address] [address] CMPon 03-29-2024 Albumin Level 3.2 G/dL Normal 3.2-4.8 [facility] ([place] Comment on above: Performed By: #### C KRISTI, JOHNNIE BATISTA, CMP, GFR, DIFF, ALC, TROPHS #### [address] [address] Albumin/Globulin [Mass ratio] 0.7 {ratio} Low 0.9-1.6 [facility] ([place] Comment on above: Performed By: #### C KRISTI, LYNNE, JOHNNIE, CMP, GFR, DIFF, ALC, TROPHS #### [address] [address] ALP [Catalytic activity/Vol] 129 U/L High 38-126 [facility] ([place] Comment on above: Performed By: #### C BC, MORPH, MDW, CMP, GFR, DIFF, ALC, TROPHS #### [address] [address] ALT [Catalytic activity/Vol] 79 U/L High 12-55 [facility] ([place] Comment on above: Performed By: #### C BC, MORPH, MDW, CMP, GFR, DIFF, ALC, TROPHS #### [address] [address] AST [Catalytic activity/Vol] 159 U/L High 8-34 [facility] ([place] Comment on above: Performed By: #### C BC, MORPH, MDW, CMP, GFR, DIFF, ALC, TROPHS #### [address] [address] Bili Total 1.50 mg/dL High 0.20-1.20 [facility] ([place] Comment on above: Result Comment: Use of this assay is not recommended for patients undergoing treatment with eltrombopag due to the potential for falsely elevated results. Performed By: #### C BC, MORPH, MDW, CMP, GFR, DIFF, ALC, TROPHS #### [address] [address] BUN/Creatinine Ratio 19.6 ratio Normal 10.0-22.0 [facility] ([place]) Comment on above: Performed By: #### C BC, MORPH, MDW, CMP, GFR, DIFF, ALC, TROPHS #### [address] [address] Calcium [Mass/Vol] 9.3 mg/dL Normal 8.7-10.4 [facility] ([place]) Comment on above: Performed By: #### C BC, MORPH, MDW, CMP, GFR, DIFF, ALC, TROPHS #### [address] [address] Chloride [Moles/Vol] 105 mmol/L Normal 98-110 [facility] ([place]) Comment on above: Performed By: #### C BC, MORPH, MDW, CMP, GFR, DIFF, ALC, TROPHS #### [address] [address] CO2 [Moles/Vol] 27 mmol/L Normal 22-32 [facility] ([place] Comment on above: Performed By: #### C KRISTI, LYNNE, W, CMP, GFR, DIFF, ALC, TROPHS #### [address] [address] Creatinine [Mass/Vol] 0.51 mg/dL Low 0.60-1.40 [facility] ([place]) Comment on above: Performed By: #### C BC, LYNNE, MDW, CMP, GFR, DIFF, ALC, TROPHS #### [address] [address] Electrolyte Balance 6.0 mEq/L Normal 4.0-15.0 [facility] ([place]) Comment on above: Performed By: #### C BC, LYNNE, MDW, CMP, GFR, DIFF, ALC, TROPHS #### [address] [address] Globulin 4.7 G/dL High 1.5-3.8 [facility] ([place] Comment on above: Performed By: #### C KRISTI, LYNNE, W, CMP, GFR, DIFF, ALC, TROPHS #### [address] [address] Glucose [Mass/Vol] 85 mg/dL Normal 82-115 [facility] ([place]) Comment on above: Performed By: #### C KRISTI, LYNNE, W, CMP, GFR, DIFF, ALC, TROPHS #### [address] [address] Potassium [Moles/Vol] 4.1 mmol/L Normal 3.5-5.0 [facility] ([place]) Comment on above: Result Comment: Spec imen slightly hemolyzed. Performed By: #### C BC, LYNNE, MDW, CMP, GFR, DIFF, ALC, TROPHS #### [address] [address] Sodium [Moles/Vol] 138 mmol/L Normal 136-145 [facility] ([place]) Comment on above: Performed By: #### C BC, LYNNE, MDW, CMP, GFR, DIFF, ALC, TROPHS #### [address] [address] Total Protein 7.9 G/dL Normal 5.7-8.2 [facility]) Comment on above: Result Comment: No te - New Reference Range in effect 20 Performed By: #### C BC, MORPH, MDW, CMP, GFR, DIFF, ALC, TROPHS #### [address] [address] Urea nitrogen [Mass/Vol] 10.0 mg/dL Normal 8.0-22.0 [facility]) Comment on above: Performed By: #### C BC, LYNNE, MDW, CMP, GFR, DIFF, ALC, TROPHS #### [address] [address] CVFLURVon 03-29-2024 FLU A PCR Negative Normal Negative [facility]) Comment on above: Result Comment: [place] [id number] Performed By: #### C KRISTI, LYNNE, MDW, CMP, GFR, DIFF, ALC, TROPHS #### [address] [address] FLU B PCR Negative Normal Negative [facility] ([place] Comment on above: Result Comment: [place] [id number] Performed By: #### C BC, LYNNE, MDW, CMP, GFR, DIFF, ALC, TROPHS #### [address] [address] RSV PCR Negative Normal Negative [facility]) Comment on above: Result Comment: [place] [id number] Performed By: #### C BC, LYNNE, MDW, CMP, GFR, DIFF, ALC, TROPHS #### [address] [address] SARS-CoV-2 (COVID-19) RNA VIVIANE+probe Ql (Unsp spec) Negative Normal Negative [facility]) Comment on above: Result Comment: [place] s [id number] This test has been authorized by FDA [...] MDW, CMP, GFR, DIFF, ALC, TROPHS #### [place] [id number] DRUGSon 03-29-2024 Acetaminophen [Mass/Vol] 5.5 ug/mL Low 10.0-20.0 [facility] ([place] Comment on above: Performed By: #### C LYNNE BERRY MDW, CMP, GFR, DIFF, ALC, TROPHS #### [address] [address] Ethanol Level <10.0 Normal [facility] ([place] Comment on above: Performed By: #### C LYNNE BERRY MDW, CMP, GFR, DIFF, ALC, TROPHS #### [address] [address] Salicylate Lvl (ds) <3.0 Low 10.0-25.0 [facility] ([place]) Comment on above: Performed By: #### C LYNNE BERRY MDW, CMP, GFR, DIFF, ALC, TROPHS #### [address] [address] Serum Drugs screened: See Below Normal [facility] ([place]) Comment on above: Result Comment: This drug screen is a presumptive screening only. No confirmation will be performed unless requested. Drugs included in the ER serum drug screen are: Threshold Ethanol 10.0 mg/dL Salicylate 2.0 mg/dl Acetaminophen 2.0 mcg/mL Testing has been performed FOR MEDICAL PURPOSES ONLY. Performed By: #### C BC, MORPH, MDW, CMP, GFR, DIFF, ALC, TROPHS #### [place] [address] [address] DRUGUon 03-29-2024 Amphetamine (u) Negative Normal Negative [facility] ([place]) Comment on above: Performed By: #### Staci RUGU #### [address] [address] Barbiturate (u) Negative Normal Negative [facility] ([place] Comment on above: Performed By: #### Staci RUGU #### [address] [address] Benzodiazepine (u) Negative Normal Negative [facility] ([place]) Comment on above: Performed By: #### Staci RUGU #### [address] [address] Cannabinoid (u) Negative Normal Negative [facility] Comment on above: Performed By: #### Staci RUGU #### [address] [address] Cocaine Ql (U) Negative Normal Negative [facility] [place] Comment on above: Performed By: #### Staci RUGU #### [address] [address] Fentanyl (u) Negative Normal Negative [facility] Comment on above: Result Comment: Test ing has been performed FOR MEDICAL PURPOSES ONLY. Performed By: #### Staci RUGU #### [address] [address] Methadone Ql (U) Negative Normal Negative [facility] Comment on above: Performed By: #### Staci RUGU #### [address] [address] Opiate (u) Negative Normal Negative [facility] [place] Comment on above: Performed By: #### Staci RUGU #### [facility] [address] [place] [address] Oxycodone (u) Negative Normal Negative [facility] [place] Comment on above: Result Comment: Test ing has been performed FOR MEDICAL PURPOSES ONLY. Performed By: #### D RUGU #### [address] [address] PCP (u) Negative Normal Negative [facility] [place] Comment on above: Performed By: #### D RUGU #### [address] [address] Propoxyphene (u) Negative Normal Negative [facility] [place] Comment on above: Performed By: #### D RUGU #### [address] [address] U pH Drug Scrn 6.0 Normal 5.0-8.0 [facility] [place] Comment on above: Performed By: #### D RUGU #### [place] [address] Urine Drugs screened: See Below Normal [facility] ([place] Comment on above: Result Comment: This drug [...] ONLY. Performed By: #### D RUGU #### [place] [address] LABORATORYOrdered By: Roslyn Canada on 03-29-2024 Appearance (U) Clear (03/29/24 8:58 PM) [facility] Work Phone: Bilirubin Urine Dipstick 3+ Large (Abnormal) (03/29/24 8:58 PM) [facility] Work Phone: Blood Urine Dipstick Negative (03/29/24 8:58 PM) [facility] Work Phone: Glucose Urine Dipstick Negative (03/29/24 8:58 PM) [facility] Work Phone: Ketones Urine Dipstick Trace (Abnormal) (03/29/24 8:58 PM) [facility] Work Phone: Leukocytes Urine Dipstick Negative (03/29/24 8:58 PM) [facility] Work Phone: Nitrite Urine Dipstick Negative (03/29/24 8:58 PM) [facility] Work Phone: pH Urine Dipstick 6.5 (03/29/24 8:58 PM) [facility] Work Phone: Protein Urine Dipstick 1+ (30mg/dl) (Abn ormal) (03/29/24 8:58 PM) [facility] Work Phone: Specific Urania Urine Dipstick 1.015 (03/29/24 8:58 PM) [facility] Work Phone: Urine Color Urine Dipstick Scarlet (Abnormal) (03/29/24 8:58 PM) [facility] Work Phone: Urobilinogen Urine Dipstick 4 mg/dl (Abnormal) (03/29/24 8:58 PM) [facility] Work Phone: LABORATORYOrdered By: George Bhatt on [...] ng/L Male: 0-54 ng/L Testing performed on [employer] analyzer using direct chemiluminescent technology. Urea nitrogen [...] Comment on above: [place]: [place] [id number] FLUBV RNA VIVIANE+probe Ql (Resp) Negative 14 (03/29/24 7:21 PM) Normal Negative [facility] Comment on above: Result Comment: [place] [id number] RSV PCR Negative 15 (03/29/24 7:21 PM) Normal Negative [facility] [employer] Comment on above: Result Comment: [place] [id number] SARS-CoV-2 (COVID-19) RNA VIVIANE+probe Ql (Resp) Negative 11, 12 (03/29/24 7:21 PM) Normal Negative [facility] [employer] [facility] Comment on above: Result Comment: [place] s [id number] Interpretive Data: T his test has been [...] influenza vaccines may cause inaccurate positive results. [facility] High Sensitivity Troponin I 6 ng/L Normal 0-54 [facility]) Comment on above: Result Comment: High Sensitive Troponin I Reference Ranges: Female: 0-34 ng/L Male: 0-54 ng/L Testing performed on [employer] analyzer using direct chemiluminescent technology. Performed By: #### C BC, MORPH, MDW, CMP, GFR, DIFF, ALC, TROPHS #### [place] [address] XR SHOULDER MINIMUM 2 VIEWS RIGHTon 02-14-2024 [...] 1:50:18 AM Ordering Provider: JASMINY REFERRING Normal [facility]) Absolute lymphocyte countOrd ered By: Papo Rodriguez on 12-25-2023 Lymphocytes Auto (Unsp spec) [#/Vol] 0.77 10*3/uL 0.83-4.51 [facility] Automated lymphocyte count a s percentage of total leukocytesOrdered By: Papo Rodriguez on 12-25-2023 Lymphocytes/100 WBC Auto (Unsp spec) 25.0 % 19-41 [facility] Basophil percentageOrdered B y: Papo Rodriguez on 12-25-2023 Basophils/100 WBC (Bld) 0.6 % 0-1 [facility] Bilirubin [Mass/Vol] 1.80 mg/dL 0.20-1.00 [facility] Comment on above: For patients on eltr ombopag therapy, use of Dimension [place] TBIL is not recommended. Chloride [Moles/Vol] 104 mmol/L 98-107 [facility] Eosinophils/100 WBC (Bld) 1.6 % 0-5 [facility] Glucose [Mass/Vol] 84 mg/dL 74-106 [facility] Hemoglobin (Bld) [Mass/Vol] 9.0 g/dL 13.0-16.5 [facility] Monocytes/100 WBC (Bld) 14.0 % 0-10 [facility] Neutrophils (Bld) [#/Vol] 1.8 10*3/uL 2.0-7.7 [facility] Neutrophils/100 WBC (Bld) 57.5 % 47-70 [facility] Potassium [Moles/Vol] 3.6 mmol/L 3.5-5.1 [facility] Protein [Mass/Vol] 6.6 g/dL 6.4-8.2 [facility] Sodium [Moles/Vol] 134 mmol/L 136-145 [facility] WBC (Bld) [#/Vol] 3.1 10*3/uL 4.4-11.0 [facility] Determination of erythrocyte mean corpuscular volume (MCV)Ordered By: Papo Rodriguez on 12-25-2023 MCV (RBC) [Entitic vol] 102.3 fL 80-94 [facility] Erythrocyte distribution wid th ratioOrdered By: Papo Rodriguez on 12-25-2023 Erythrocyte distribution width (RBC) [Ratio] 15.9 % 11.6-14.6 [facility] Erythrocyte distribution wid th standard deviationOrdered By: Papo Rodriguez on 12-25-2023 Erythrocyte distribution width (RBC) [Entitic vol] 59.7 fL 35.1-43.9 [facility] Hematocrit Auto (Bld) [Volum e fraction]Ordered By: Papo Rodriguez on 12-25-2023 Hematocrit (Bld) [Volume fraction] 26.9 % 40-54 [facility] Immature granulocytes/100 WB C Auto (Bld)Ordered By: Papo Rodriguez on 12-25-2023 Immature granulocytes/100 WBC (Bld) 1.300 % 0.0-0.9 [facility] Comment on above: IG% - Immature Granu locytes (promyelocytes, myelocytes and metamyelocytes) > 1% indicates that a LEFT SHIFT is Present. Laboratory - Chemistry and C hemistry - challengeOrdered By: Papo Rodriguez on 12-25-2023 Albumin/Globulin [Mass ratio] 0.6 {ratio} 0.9-2.4 [facility] ALP [Catalytic activity/Vol] 222 U/L 45-117 [facility] ALT [Catalytic activity/Vol] 124 U/L 16-61 [facility] CO2 [Moles/Vol] 25.0 mmol/L 21.0-32.0 [facility] Globulin (S) [Mass/Vol] 4.2 g/dL 2.2-4.2 [facility] Urea nitrogen/Creatinine [Mass ratio] 17.8 mg/mg 10-20 [facility] Laboratory - Hematology and Cell countsOrdered By: Papo Rodriguez on 12-25-2023 MCH (RBC) [Entitic mass] 34.2 pg 27.0-32.0 [facility] MCHC (RBC) [Mass/Vol] 33.5 g/dL 32-36 [facility] Nucleated RBC/100 WBC (Bld) [Ratio] 0 % 0-5 [facility] Platelet mean volume (Bld) [Entitic vol] 11.2 fL 6.2-12.0 [facility] Platelets (Bld) [#/Vol] 173 10*3/uL 150-450 [facility] No Panel InformationOrdered By: Papo Rodriguez on 12-25-2023 Estimated Creatinine Clearance Calc 170.90 ml/min [facility] Estimated GFR (MDRD) Amer 213 mL/min >60 [facility] Comment on above: GFR Calc Estimated GFR (MDRD) Non-Af Amer 176 mL/min >60 [facility] Comment on above: Non- GFR Calc RBC Auto (Bld) [#/Vol]Ordere d By: Papo Rodriguez on 12-25-2023 RBC (Bld) [#/Vol] 2.63 10*6/uL 4.6-6.2 [facility] Serum or plasma calcium josé miguel urement (mass/volume)Ordered By: Papo Rodriguez on 12-25-2023 Calcium [Mass/Vol] 8.4 mg/dL 8.5-10.1 [facility] Serum or plasma creatinine m easurement (mass/volume)Ordered By: Papo Rodriguez on 12-25-2023 Creatinine [Mass/Vol] 0.50 mg/dL 0.70-1.30 [facility] Comment on above: The validity of the calculated GFR & GFRAA in patients over 70 years has not been determined. Clinical correlation is essential. Serum or plasma urea nitroge n measurement (mass/volume)Ordered By: Papo Rodriguez on 12-25-2023 Urea nitrogen [Mass/Vol] 9 mg/dL 7-18 [facility] Thin prep Papanicolaou smear with manual screeningOrdered By: Papo Rodriguez on 12-25-2023 Thin prep Papanicolaou smear with manual screening 2.4 g/dL 3.2-5.0 [facility] Thin prep Papanicolaou smear with manual screening 217 U/L 15-37 [facility] Thin prep Papanicolaou smear with manual screening 5 5-15 [facility] Laboratory - Microbiology an d Antimicrobial susceptibilityOrdered By: Papo Rodriguez on 12-24-2023 SARS-CoV-2 (COVID-19) RNA VIVIANE+probe Ql (Unsp spec) [facility] Basophil percentageOrdered B y: Papo Rodriguez on 12-23-2023 Basophil percentage 2.9 mg/dL 2.5-4.9 [facility] Laboratory - Chemistry and C hemistry - challengeOrdered By: Papo Rodriguez on 12-23-2023 Magnesium [Mass/Vol] 1.5 mg/dL 1.6-2.6 [facility] Serum or plasma cortisol moustapha surement (mass/volume)Ordered By: Papo Rodriguez on 12-23-2023 Cortisol [Mass/Vol] 12.20 ug/dL 3.44-22.45 [facility] Comment on above: Adult (AM) 5.27 - 22 .45 ug/dL Adult (PM) 3.44 - 16.76 ug/dLPlease note revised CORTISOL reference range effective 2019. Laboratory - Chemistry and C hemistry - challengeOrdered By: Papo Rodriguez on 12-21-2023 Transferrin [Mass/Vol] 151 mg/dL 177-329 [facility] Comment on above: Performed at: [address] Director: Gary Peña PhD, Phone: [phone] Direct bilirubinOrdered By: Janet Erazo on 12-20-2023 Bilirubin.direct [Mass/Vol] 1.58 mg/dL 0.00-0.30 [facility] Blood platelet adequacy dete ction by light microscopyOrdered By: Taylor Kaur on 12-19-2023 Platelets LM Ql (Bld) MOD DEC ADEQ [facility] Culture, urineOrdered By: Jourdan Childs on 12-19-2023 Bacteria identified Cx Nom (U) Positive [facility] Iron measurement (mass/mass) Ordered By: Janet Erazo on 12-19-2023 Iron (Unsp spec) [Mass/Mass] 32 ug/dL 65-175 [facility] Laboratory - Chemistry and C hemistry - challengeOrdered By: Taylor Kaur on 12-19-2023 Cobalamin (Vitamin B12) [Mass/Vol] 851 pg/mL 211-911 [facility] Laboratory - Chemistry and C hemistry - challengeOrdered By: Janet Erazo on 12-19-2023 Ferritin [Mass/Vol] 3219 ng/mL 26-388 [facility] Laboratory - Microbiology an d Antimicrobial susceptibilityOrdered By: Brendan Childs on 12-19-2023 Bacteria identified Cx Nom (Bld) No growth in 5 days. [facility] No Panel InformationOrdered By: Taylor Kaur on 12-19-2023 Folate 2.60 ng/mL 3.1-55.4 [facility] Streptococcus pneumoniae Antigen (M [facility] No Panel InformationOrdered By: Janet Erazo on 12-19-2023 Total Iron Binding Capacity 192 ug/dL 250-450 [facility] Red blood cell stomatocyte d etectionOrdered By: Taylor Kaur on 12-19-2023 Stomatocytes LM Ql (Bld) 1+ [facility] Serum or plasma iron saturat ion measurement (mass fraction)Ordered By: Janet Erazo on 12-19-2023 Iron saturation [Mass fraction] 16.7 % 15.0-55.0 [facility] Target cell detectionOrdered By: Taylor Kaur on 12-19-2023 Target cells LM Ql (Bld) 2+ [facility] Urine Legionella pneumophila antigen detectionOrdered By: Taylor Kaur on 12-19-2023 L. pneumophila Ag Ql (U) [facility] Whole blood hemoglobin A1c/t otal hemoglobin ratio (mass fraction)Ordered By: Taylor Kaur on 12-19-2023 HbA1c (Bld) [Mass fraction] 4.9 % 3.8-5.6 [facility] Comment on above: Normal < 5.7 % Predi abetic 5.7 - 6.4 % Diabetic >or= 6.5 % Please note range changes. Absolute lymphocyte countOrd ered By: Brendan Childs on 12-18-2023 Lymphocytes Auto (Unsp spec) [#/Vol] 0.44 10*3/uL 0.83-4.51 [facility] Automated lymphocyte count a s percentage of total leukocytesOrdered By: Brendan Childs on 12-18-2023 Lymphocytes/100 WBC Auto (Unsp spec) 9.5 % 19-41 [facility] Basophil percentageOrdered B y: Brendan Childs on 12-18-2023 Basophil percentage 0-5 SEEN /hpf 0-5 [facility] Basophils/100 WBC (Bld) 0.2 % 0-1 [facility] Bilirubin [Mass/Vol] 2.70 mg/dL 0.20-1.00 [facility] Comment on above: For patients on eltr ombopag therapy, use of Dimension [place] TBIL is not recommended. Chloride [Moles/Vol] 93 mmol/L 98-107 [facility] Eosinophils/100 WBC (Bld) 0.0 % 0-5 [facility] Glucose [Mass/Vol] 131 mg/dL 74-106 [facility] Comment on above: Fasting Glucose resu lt greater than or equal to 126 mg/dL suggests DIABETES MELLITUS per A.D.A. criteria. Hemoglobin (Bld) [Mass/Vol] 10.3 g/dL 13.0-16.5 [facility] Lactate [Moles/Vol] 1.7 mmol/L 0.4-2.0 [facility] Monocytes/100 WBC (Bld) 12.5 % 0-10 [facility] Neutrophils (Bld) [#/Vol] 3.6 10*3/uL 2.0-7.7 [facility] Neutrophils/100 WBC (Bld) 76.9 % 47-70 [facility] Potassium [Moles/Vol] 3.4 mmol/L 3.5-5.1 [facility] Protein [Mass/Vol] 7.7 g/dL 6.4-8.2 [facility] Sodium [Moles/Vol] 134 mmol/L 136-145 [facility] WBC (Bld) [#/Vol] 4.6 10*3/uL 4.4-11.0 [facility] Basophil percentageOrdered B y: Taylor White on 12-18-2023 Basophil percentage 3.0 mg/dL 2.5-4.9 [facility] Bilirubin Test strip Ql (U)O rdered By: Brendan Childs on 12-18-2023 Bilirubin Ql (U) 6 mg/dL Negative [facility] Comment on above: COLOR OF URINE MAY A FFECT DIPSTICK RESULTS. Blood manual differential co mment interpretation (narrative result)Ordered By: Brendan Childs on 12-18-2023 Manual differential comment Deo (Bld) [Interp] SEE COMMENT [facility] Comment on above: LYMPHOPENIA NOTED Blood platelet adequacy dete ction by light microscopyOrdered By: Brendan Childs on 12-18-2023 Platelets LM Ql (Bld) ADEQUATE ADEQ [facility] Determination of erythrocyte mean corpuscular volume (MCV)Ordered By: Brendan Childs on 12-18-2023 MCV (RBC) [Entitic vol] 101.6 fL 80-94 [facility] Direct bilirubinOrdered By: Brendan Childs on 12-18-2023 Bilirubin.direct [Mass/Vol] 1.85 mg/dL 0.00-0.30 [facility] Erythrocyte distribution wid th ratioOrdered By: Brendan Childs on 12-18-2023 Erythrocyte distribution width (RBC) [Ratio] 14.8 % 11.6-14.6 [facility] Erythrocyte distribution wid th standard deviationOrdered By: Brendan Childs on 12-18-2023 Erythrocyte distribution width (RBC) [Entitic vol] 55.4 fL 35.1-43.9 [facility] Hematocrit Auto (Bld) [Volum e fraction]Ordered By: Brendan Childs on 12-18-2023 Hematocrit (Bld) [Volume fraction] 30.9 % 40-54 [facility] Hyaline casts LM.LPF (Urine sed) [#/Area]Ordered By: Brendan Childs on 12-18-2023 Hyaline casts (Urine sed) [#/Area] 10 /[LPF] 0-5 [facility] Hypochromatic red blood cell detectionOrdered By: Brendan Childs on 12-18-2023 Hypochromia Ql (Bld) 1+ [facility] Immature granulocytes/100 WB C Auto (Bld)Ordered By: Brendan Childs on 12-18-2023 Immature granulocytes/100 WBC (Bld) 0.900 % 0.0-0.9 [facility] Comment on above: IG% - Immature Granu locytes (promyelocytes, myelocytes and metamyelocytes) > 1% indicates that a LEFT SHIFT is Present. Ketones Test strip Ql (U)Ord ered By: Brendan Childs on 12-18-2023 Ketones Ql (U) 150 mg/dl Negative [facility] Comment on above: CRITICAL VALUE *HCRI TICAL VALUE VERIFIED. CALLED TO [id number]/24 Axel Lewis.RESULTS READ BACK BY SAME . Laboratory - Chemistry and C hemistry - challengeOrdered By: Brendan Childs on 12-18-2023 ALP [Catalytic activity/Vol] 198 U/L 45-117 [facility] ALT [Catalytic activity/Vol] 93 U/L 16-61 [facility] CO2 [Moles/Vol] 21.0 mmol/L 21.0-32.0 [facility] Globulin (S) [Mass/Vol] 4.7 g/dL 2.2-4.2 [facility] Lipase [Catalytic activity/Vol] 73 U/L 13-75 [facility] Comment on above: Please note:LIPASE r evised reference range effective 22. New Lipase methodology. Expected to produce lower values than the previous assay method. NEW Reference Range: 13 - 75 U/L Urea nitrogen/Creatinine [Mass ratio] 11.9 mg/mg 10-20 [facility] Laboratory - Chemistry and C hemistry - challengeOrdered By: Taylor Kaur on 12-18-2023 Magnesium [Mass/Vol] 1.2 mg/dL 1.6-2.6 [facility] Laboratory - Drug toxicology Ordered By: Brendan Childs on 12-18-2023 Amphetamines Ql (U) Negative <1000 ng/mL [facility] Benzodiazepines Ql (U) Negative < 200 ng/mL [facility] Cannabinoids Screen Ql (U) Negative < 50 ng/mL [facility] Cocaine Ql (U) Negative < 300 ng/mL [facility] Opiates Ql (U) Negative < 300 ng/mL [facility] Laboratory - Hematology and Cell countsOrdered By: Brendan Childs on 12-18-2023 Anisocytosis Ql (Bld) 1+ [facility] MCH (RBC) [Entitic mass] 33.9 pg 27.0-32.0 [facility] MCHC (RBC) [Mass/Vol] 33.3 g/dL 32-36 [facility] Nucleated RBC/100 WBC (Bld) [Ratio] 0 % 0-5 [facility] Platelet mean volume (Bld) [Entitic vol] 11.6 fL 6.2-12.0 [facility] Laboratory - Microbiology an d Antimicrobial susceptibilityOrdered By: Brendan Childs on 12-18-2023 SARS-CoV-2 (COVID-19) RNA VIVIANE+probe Ql (Unsp spec) [facility] Macrocytes detectionOrdered By: Brendan Childs on 12-18-2023 Macrocytes Ql (Bld) 1+ [facility] Mucus LM Ql (Urine sed)Order ed By: Brendan Childs on 12-18-2023 Mucus Ql (Urine sed) 0 SEEN /hpf [facility] Nitrite Test strip Ql (U)Ord ered By: Brendan Childs on 12-18-2023 Nitrite Ql (U) Positive Negative [facility] No Panel InformationOrdered By: Brendan Childs on 12-18-2023 MDMA (Ecstasy) Screen Negative < 500 ng/mL [facility] Urine Barbiturates Screen Negative < 200 ng/mL [facility] Urine Drug Screen Comment [facility] Comment on above: CONFIRMATORY TESTING [...] Urine Methadone Screen Negative < 300 ng/mL [facility] Urine RBC 0 SEEN /hpf 0-5 [facility] Estimated Creatinine Clearance Calc 84.53 ml/min [facility] Estimated GFR (MDRD) Amer 96 mL/min >60 [facility] Comment on above: GFR Calc Estimated GFR (MDRD) Non-Af Amer 79 mL/min >60 [facility] Comment on above: Non- GFR Calc Ethyl Alcohol Level 4.0 mg/dL [facility] Comment on above: The serum:whole bloo d ethanol ratio is approximately 1.14and varies slightly with hematocrit. Medical Alcohol reference interval and critical value innon-tolerant individuals; 50 - 100 Impairment 100 Intoxication 100 - 250 Severe Poisoning 250 - 400 Deep/possible fatal coma Platelet Count TNP [facility] Comment on above: Test not performedPl ease note: For this sample, a platelet estimate is provided rather than a platelet count due to platelet clumping. Other parameters associated with this sample are not affected by platelet clumping. If a more accurate platelet count is required, a redraw of the patient will be necessary.Previous reported result: 83 [id number] by: JANNETTE on 12/18/23:2318 Troponin I High Sensitivity 18 pg/mL 3.0-78.0 [facility] Comment on above: Please Note: New Theresa t Units and Gender Specific Reference Ranges. For more information see Policy Stat Procedure [place] High Sensitivity Troponin (TNIH) and attachments. Ovalocyte detectionOrdered B y: Brendan Childs on 12-18-2023 Ovalocytes LM Ql (Bld) RARE [facility] Protein Test strip Ql (U)Ord ered By: Brendan Childs on 12-18-2023 Protein Ql (U) 500 mg/dl Negative [facility] RBC Auto (Bld) [#/Vol]Ordere d By: Brendan Childs on 12-18-2023 RBC (Bld) [#/Vol] 3.04 10*6/uL 4.6-6.2 [facility] RBC morphologyOrdered By: Jourdan Childs on 12-18-2023 RBC morphology finding Nom (Bld) N CHROM NORMAL NORM C&C [facility] Serum or plasma acetone josé miguel urement (mass/volume)Ordered By: Taylor White on 12-18-2023 Acetone [Mass/Vol] SMALL NEG [facility] Serum or plasma calcium josé miguel urement (mass/volume)Ordered By: Brendan Childs on 12-18-2023 Calcium [Mass/Vol] 8.8 mg/dL 8.5-10.1 [facility] Serum or plasma creatinine m easurement (mass/volume)Ordered By: Brendan Childs on 12-18-2023 Creatinine [Mass/Vol] 1.01 mg/dL 0.70-1.30 [facility] Comment on above: The validity of the calculated GFR & GFRAA in patients over 70 years has not been determined. Clinical correlation is essential. Serum or plasma urea nitroge n measurement (mass/volume)Ordered By: Brendan Childs on 12-18-2023 Urea nitrogen [Mass/Vol] 12 mg/dL 7-18 [facility] Serum procalcitonin measurem entOrdered By: Taylor Kaur on 12-18-2023 Procalcitonin [Mass/Vol] 0.27 ng/mL 0.00-0.09 [facility] Comment on above: A procalcitonin [...] Ql (Urine sed) 0 SEEN /hpf 0-5 [facility] Thin prep Papanicolaou smear with manual screeningOrdered By: Brendan Childs on 12-18-2023 Thin prep Papanicolaou smear with manual screening 3.0 g/dL 3.2-5.0 [facility] Thin prep Papanicolaou smear with manual screening 295 U/L 15-37 [facility] Thin prep Papanicolaou smear with manual screening 20 5-15 [facility] Urine blood detectionOrdered By: Brendan Childs on 12-18-2023 RBC Ql (U) 25 /ul Negative [facility] Urine clarityOrdered By: Mateus Childs on 12-18-2023 Clarity (U) Clear Clear [facility] Urine color determinationOrd ered By: Brendan Childs on 12-18-2023 Color (U) Scarlet Yellow [facility] Urine glucose detectionOrder ed By: Brendan Childs on 12-18-2023 Glucose Ql (U) Normal mg/dl Normal [facility] Urine leukocyte esterase det ection by dipstickOrdered By: Brendan Childs on 12-18-2023 Leukocyte esterase Test strip Ql (U) 25 /ul Negative [facility] Urine pHOrdered By: Brendan so on 12-18-2023 pH (U) 6.0 [pH] 5.0 - 8.0 [facility] Urine phencyclidine (PCP) de tectionOrdered By: Brendan Childs on 12-18-2023 Phencyclidine Ql (U) Negative < 25 ng/mL [facility] Urine sediment bacteria coun t by microscopy (number/high power field)Ordered By: Brendan Childs on 12-18-2023 Bacteria LM.HPF (Urine sed) [#/Area] 0 /[HPF] None Seen [facility] Urine specific gravity measu rementOrdered By: Brendan Childs on 12-18-2023 Specific gravity (U) [Rel density] 1.020 1.002-1.03 0 [facility] Urine urobilinogen measureme ntOrdered By: Brendan Childs on 12-18-2023 Urobilinogen Ql (U) 12 mg/dl Normal [facility] .GFRon 11-01-2023 GFR 230 ml/min/1.73sqm [facility] Comment on above: Result Comment: GFR Population [...] MDW, CMP, GFR, DIFF, ALC, TROPHS #### [address] [address] GFR Non- 190 ml/min/1.73sqm [facility] Comment on above: Result Comment: GFR Population [...] MDW, CMP, GFR, DIFF, ALC, TROPHS #### [place] [id number] .MDWon 11-01-2023 Monocyte Distribution Width See Comment Normal 0.00-20.00 [facility] Comment on above: Result Comment: The MDW result could not be reported due to a sample abnormality that prevents the MDW from being calculated. Performed By: #### C BC, MORPH, MDW, CMP, GFR, DIFF, ALC, TROPHS #### [address] [address] .Manual Diffon 11-01-2023 Bands 4.0 % Normal 0.0-5.0 [facility] Comment on above: Performed By: #### C BC, MORPH, MDW, CMP, GFR, DIFF, ALC, TROPHS #### [address] [address] Basophil %, Manual 2.0 % Normal 0.0-2.5 [facility] ([place]) Comment on above: Performed By: #### C BC, MORPH, MDW, CMP, GFR, DIFF, ALC, TROPHS #### [place] [id number] Basophil, Abs Manual 0.0 10 3/mcL Normal 0.0-0.2 [facility] ([place] Comment on above: Performed By: #### C BC, MORPH, MDW, CMP, GFR, DIFF, ALC, TROPHS #### [address] [address] Eosinophil %, Manual 2.0 % Normal 0.0-7.0 [facility] ([place]) Comment on above: Performed By: #### C BC, MORPH, MDW, CMP, GFR, DIFF, ALC, TROPHS #### [address] [address] Eosinophil, Abs Manual 0.1 10 3/mcL Normal 0.0-0.4 [facility] ([place] Comment on above: Performed By: #### C BC, MORPH, MDW, CMP, GFR, DIFF, ALC, TROPHS #### [address] [address] Lymphocyte %, Manual 34.0 % Normal 10.0-50.0 [facility] ([place]) Comment on above: Performed By: #### C BC, MORPH, MDW, CMP, GFR, DIFF, ALC, TROPHS #### [address] [address] Lymphocyte, Abs Manual 0.8 10 3/mcL Normal 0.8-3.9 [facility] Comment on above: Performed By: #### C BC, MORPH, MDW, CMP, GFR, DIFF, ALC, TROPHS #### [address] [address] Metamyelocyte 1.0 % Normal [facility] Comment on above: Performed By: #### C BC, MORPH, MDW, CMP, GFR, DIFF, ALC, TROPHS #### [address] [address] Monocyte %, Manual 13.0 % Normal 1.7-13.0 [facility] ([place] Comment on above: Performed By: #### C BC, MORPH, MDW, CMP, GFR, DIFF, ALC, TROPHS #### [address] [address] Monocyte, Abs Manual 0.3 10 3/mcL Normal 0.2-1.0 [facility] ([place] Comment on above: Performed By: #### C BC, MORPH, MDW, CMP, GFR, DIFF, ALC, TROPHS #### [address] [address] Neutrophil %, Manual 44.0 % Normal 37.0-80.0 [facility] ([place]) Comment on above: Performed By: #### C BC, MORPH, MDW, CMP, GFR, DIFF, ALC, TROPHS #### [address] [address] Neutrophil, Abs Manual 1.1 10 3/mcL Low 2.9-6.2 [facility] Comment on above: Performed By: #### C BC, MORPH, MDW, CMP, GFR, DIFF, ALC, TROPHS #### [place] [phone] Nucleated RBC 0.0 /100 WBC Normal [facility] [place] Comment on above: Performed By: #### C BC, LYNNE, MDW, CMP, GFR, DIFF, ALC, TROPHS #### [address] [address] .Morphon 11-01-2023 Anisocytosis Ql (Bld) 1+ Normal [facility] ([place]) Comment on above: Performed By: #### C BC, LYNNE, MDW, CMP, GFR, DIFF, ALC, TROPHS #### [address] [address] Large Platelets Few Normal [facility] Comment on above: Performed By: #### C BC, LYNNE, MDW, CMP, GFR, DIFF, ALC, TROPHS #### [address] [address] Platelet Estimate Decreased Normal [facility] Comment on above: Performed By: #### C BC, LYNNE, MDW, CMP, GFR, DIFF, ALC, TROPHS #### [address] [address] Stomatocytes 2+ Normal [facility] Comment on above: Performed By: #### C KRISTI, JOHNNIE BATISTA, CMP, GFR, DIFF, ALC, TROPHS #### [address] [address] Linda 11-01-2023 Ethanol Level 389 mg/dL Critically abnormal 0-3 [facility] Comment on above: Performed By: #### C KRISTI, LYNNE, JOHNNIE, CMP, GFR, DIFF, ALC, TROPHS #### [address] [address] CBCon 11-01-2023 Erythrocyte distribution width (RBC) [Ratio] 16.4 % High 11.5-14.5 [facility] Comment on above: Performed By: #### C KRISTI, JOHNNIE BATISTA, CMP, GFR, DIFF, ALC, TROPHS #### [address] [address] Hematocrit (Bld) [Volume fraction] 36.2 % Low 42.0-52.0 [facility] Comment on above: Performed By: #### C KRISTI, JOHNNIE BATISTA, CMP, GFR, DIFF, ALC, TROPHS #### [address] [address] Hgb 12.2 G/dL Low 14.0-18.0 [facility] Comment on above: Performed By: #### C KRISTI, JOHNNIE BATISTA, CMP, GFR, DIFF, ALC, TROPHS #### [address] [address] MCH (RBC) [Entitic mass] 34.9 pg High 27.0-31.2 [facility] Comment on above: Performed By: #### C KRISTI, JOHNNIE BATISTA, CMP, GFR, DIFF, ALC, TROPHS #### [address] [address] MCHC 33.8 G/dL Normal 31.8-35.4 [facility] Comment on above: Performed By: #### C BC, MORPH, MDW, CMP, GFR, DIFF, ALC, TROPHS #### [address] [address] MCV (RBC) [Entitic vol] 103.3 fL High 80.0-94.0 [facility] Comment on above: Performed By: #### C BC, MORPH, MDW, CMP, GFR, DIFF, ALC, TROPHS #### [place] [address] Platelet 79 10 3/mcL Low 130-400 [facility] Comment on above: Performed By: #### C BC, MORPH, MDW, CMP, GFR, DIFF, ALC, TROPHS #### [place] [phone] Platelet mean volume (Bld) [Entitic vol] 8.2 fL Normal 7.4-10.4 [facility] Comment on above: Performed By: #### C BC, MORPH, MDW, CMP, GFR, DIFF, ALC, TROPHS #### [address] [address] RBC 3.50 10 6/mcL Low 4.04-6.13 [facility] Comment on above: Performed By: #### C BC, MORPH, MDW, CMP, GFR, DIFF, ALC, TROPHS #### [place] [phone] WBC 2.4 10 3/mcL Low 4.6-10.8 [facility] Comment on above: Performed By: #### C BC, MORPH, MDW, CMP, GFR, DIFF, ALC, TROPHS #### [place] [address] CKon 11-01-2023 CK [Catalytic activity/Vol] 122 U/L Normal 39-308 [facility] [place] Comment on above: Performed By: #### C K #### [place] [address] CMPon 11-01-2023 Albumin Level 3.2 G/dL Low 3.4-4.8 [facility] Comment on above: Performed By: #### C KRISTI, LYNNE, MDW, CMP, GFR, DIFF, ALC, TROPHS #### [address] [address] Albumin/Globulin [Mass ratio] 0.8 {ratio} Low 1.1-2.5 [facility] ([place]) Comment on above: Performed By: #### C BC, LYNNE, MDW, CMP, GFR, DIFF, ALC, TROPHS #### [address] [address] ALP [Catalytic activity/Vol] 178 U/L High 40-135 [facility] ([place]) Comment on above: Performed By: #### C BC, LYNNE, MDW, CMP, GFR, DIFF, ALC, TROPHS #### [address] [address] ALT [Catalytic activity/Vol] 164 U/L High 16-63 [facility] ([place]) Comment on above: Performed By: #### C KRISTI, LYNNE, MDW, CMP, GFR, DIFF, ALC, TROPHS #### [address] [address] AST [Catalytic activity/Vol] 330 U/L High 10-40 [facility] ([place]) Comment on above: Performed By: #### C BC, LYNNE, MDW, CMP, GFR, DIFF, ALC, TROPHS #### [address] [address] Bili Total 1.0 mg/dL Normal 0.2-1.0 [facility] ([place]) Comment on above: Result Comment: Use of this assay is not recommended for patients undergoing treatment with eltrombopag due to the potential for falsely elevated results. Performed By: #### C BC, LYNNE, MDW, CMP, GFR, DIFF, ALC, TROPHS #### [address] [address] BUN/Creatinine Ratio 13 ratio Normal 7-27 [facility] ([place]) Comment on above: Performed By: #### C BC, MORPH, MDW, CMP, GFR, DIFF, ALC, TROPHS #### [address] [address] Calcium [Mass/Vol] 8.3 mg/dL Low 8.4-10.2 [facility] ([place]) Comment on above: Performed By: #### C BC, MORPH, MDW, CMP, GFR, DIFF, ALC, TROPHS #### [place] [address] Chloride [Moles/Vol] 105 mmol/L Normal 98-107 [facility] ([place]) Comment on above: Performed By: #### C BC, MORPH, MDW, CMP, GFR, DIFF, ALC, TROPHS #### [place] [address] CO2 [Moles/Vol] 27 mmol/L Normal 23-31 [facility] ([place]) Comment on above: Performed By: #### C BC, MORPH, MDW, CMP, GFR, DIFF, ALC, TROPHS #### [place] [address] Creatinine [Mass/Vol] 0.45 mg/dL Low 0.70-1.30 [facility] ([place]) Comment on above: Performed By: #### C BC, MORPH, MDW, CMP, GFR, DIFF, ALC, TROPHS #### [address] [address] Electrolyte Balance 11.0 mEq/L Normal 4.0-15.0 [facility] ([place]) Comment on above: Performed By: #### C BC, MORPH, MDW, CMP, GFR, DIFF, ALC, TROPHS #### [place] [address] Globulin 4.1 G/dL Normal [facility] ([place]) Comment on above: Performed By: #### C BC, MORPH, MDW, CMP, GFR, DIFF, ALC, TROPHS #### [place] [address] Glucose [Mass/Vol] 88 mg/dL Normal 80-115 [facility] ([place]) Comment on above: Performed By: #### C BC, MORPH, MDW, CMP, GFR, DIFF, ALC, TROPHS #### [address] [address] Potassium [Moles/Vol] 3.6 mmol/L Normal 3.5-5.1 [facility]) Comment on above: Performed By: #### C BC, MORPH, MDW, CMP, GFR, DIFF, ALC, TROPHS #### [address] [address] Sodium [Moles/Vol] 143 mmol/L Normal 136-145 [facility]) Comment on above: Performed By: #### C BC, MORPH, MDW, CMP, GFR, DIFF, ALC, TROPHS #### [address] [address] Total Protein 7.3 G/dL Normal 6.4-8.2 [facility]) Comment on above: Performed By: #### C BC, MORPH, MDW, CMP, GFR, DIFF, ALC, TROPHS #### [address] [address] Urea nitrogen [Mass/Vol] 6 mg/dL Low 7-18 [facility]) Comment on above: Performed By: #### C BC, MORPH, MDW, CMP, GFR, DIFF, ALC, TROPHS #### [address] [address] [address] HEAD OR BRAIN W/O CONTRAS Ton [...] 11/01/2023 8:44:13 PM Ordering Provider: WANDY BROOKE [facility] ([place]) CT SPINE CERVICAL W/O CHARLENE [place] 11-01-2023 [...] 11/01/2023 8:34:45 PM Ordering Provider: WANDY Meeks [facility] ([place]) LABORATORYOrdered By: SYSTEM SYSTEM on 11-01-2023 Albumin [...] a homogeneous sandwich chemiluminescent immunoassay based on [employer] technology. Urea nitrogen [Mass/Vol] 6 mg/dL Low 7 - 18 mg/dL AO ADM SS Urea nitrogen/Creatinine [Mass ratio] 13 ratio Normal 7 - 27 ratio AO ADM SS WBC (Bld) [#/Vol] 2.4 103/mcL Low 4.6 - 10.8 10^3/mcL AO Workflow SS TROPHSon 11-01-2023 High Sensitivity Troponin I 12 ng/L Normal 0-76 [facility] ([place]) Comment on above: Result Comment: High Sensitive Troponin I Reference Ranges: Female: 0-51 ng/L Male: 0-76 ng/L Testing performed on Dimension EXL using a homogeneous sandwich chemiluminescent immunoassay based on [employer] technology. Performed By: #### C BC, MORPH, MDW, CMP, GFR, DIFF, ALC, TROPHS #### [address] [address] XR CHEST 1 VIEWon 11-01-2023 XR CHEST [...] 11/01/2023 8:24:05 PM Ordering Provider: WANDY BROOKE [facility] ([place]) XR PELVIS 1 OR 2 VIEWSon XR [...] 11/01/2023 8:24:57 PM Ordering Provider: NATHANIEL CARUSO [facility] ([place]) CT HEAD OR BRAIN W/O CONTRAS Ton [...] 09/17/2023 12:59:39 PM Ordering Provider: JENNIFER VILLASEÑOR [facility] ([place]) CT SHOULDER W/O CONTRAST RIG HTon 09-16-2023 [...] 09/16/2023 2:33:00 PM Ordering Provider: JENNIFER VILLASEÑOR [facility] ([place]) .CBC Path Reviewon CBC Path Review Marked leukopenia an d moderate macrocytic anemia and thrombocytopenia noted, with absolute neutropenia and monocytopenia. Rule out liver disease. Rule out hypersplenism. Rule out nutritional deficiency. Rule out drug effect. Rule out bone marrow abnormality. Normal [facility] ([place]) Comment on above: Result Comment: Elec tronically signed by: YAN MEIER 09.08.2023 10:18 EST Performed By: #### C BC, MORPH, MDW, CMP, GFR, DIFF, ALC, TROPHS #### [address] [address] .GFRon 09-07-2023 GFR Non- 142 ml/min/1.73sqm Normal [facility] ([place]) Comment on above: Result Comment: GFR Population [...] BATISTA, CMP, GFR, DIFF, ALC, TROPHS #### [address] [address] GFR 172 ml/min/1.73sqm Normal [facility] ([place]) Comment on above: Result Comment: GFR Population [...] MDW, CMP, GFR, DIFF, ALC, TROPHS #### [address] [address] .Manual Diffon 09-07-2023 Bands 2.0 % Normal 0.0-5.0 [facility] ([place]) Comment on above: Performed By: #### C BC, MORPH, MDW, CMP, GFR, DIFF, ALC, TROPHS #### [address] [address] Basophil %, Manual 0.0 % Normal 0.0-2.5 [facility] ([place]) Comment on above: Performed By: #### C BC, MORPH, MDW, CMP, GFR, DIFF, ALC, TROPHS #### [address] [address] Basophil, Abs Manual 0.0 10 3/mcL Normal 0.0-0.2 [facility] ([place]) Comment on above: Performed By: #### C BC, MORPH, MDW, CMP, GFR, DIFF, ALC, TROPHS #### [address] [address] Eosinophil %, Manual 0.0 % Normal 0.0-7.0 [facility] ([place]) Comment on above: Performed By: #### C BC, MORPH, MDW, CMP, GFR, DIFF, ALC, TROPHS #### [address] [address] Eosinophil, Abs Manual 0.0 10 3/mcL Normal 0.0-0.4 [facility] ([place]) Comment on above: Performed By: #### C BC, MORPH, MDW, CMP, GFR, DIFF, ALC, TROPHS #### [address] [address] Lymphocyte %, Manual 67.0 % High 10.0-50.0 [facility] ([place]) Comment on above: Performed By: #### C BC, MORPH, MDW, CMP, GFR, DIFF, ALC, TROPHS #### [address] [address] Lymphocyte, Abs Manual 1.3 10 3/mcL Normal 0.8-3.9 [facility] ([place]) Comment on above: Performed By: #### C BC, MORPH, MDW, CMP, GFR, DIFF, ALC, TROPHS #### [address] [address] Metamyelocyte 1.0 % Normal [facility] ([place]) Comment on above: Performed By: #### C BC, MORPH, MDW, CMP, GFR, DIFF, ALC, TROPHS #### [address] [address] Monocyte %, Manual 3.0 % Normal 1.7-13.0 [facility] ([place]) Comment on above: Performed By: #### C BC, MORPH, MDW, CMP, GFR, DIFF, ALC, TROPHS #### [address] [address] Monocyte, Abs Manual 0.1 10 3/mcL Low 0.2-1.0 [facility] ([place]) Comment on above: Performed By: #### C BC, MORPH, MDW, CMP, GFR, DIFF, ALC, TROPHS #### [address] [address] Neutrophil %, Manual 27.0 % Low 37.0-80.0 [facility] ([place]) Comment on above: Performed By: #### C BC, MORPH, MDW, CMP, GFR, DIFF, ALC, TROPHS #### [address] [address] Neutrophil, Abs Manual 0.6 10 3/mcL Low 2.9-6.2 [facility] ([place]) Comment on above: Performed By: #### C BC, MORPH, MDW, CMP, GFR, DIFF, ALC, TROPHS #### [address] [address] Nucleated RBC 0.0 /100 WBC Normal [facility] ([place]) Comment on above: Performed By: #### C BC, MORPH, MDW, CMP, GFR, DIFF, ALC, TROPHS #### [address] [address] .Morphon 09-07-2023 Anisocytosis Ql (Bld) 1+ Normal [facility] ([place]) Comment on above: Performed By: #### C BC, MORPH, MDW, CMP, GFR, DIFF, ALC, TROPHS #### [address] [address] Macrocytosis 1+ Normal [facility] ([place]) Comment on above: Performed By: #### C LYNNE BERRY MDW, CMP, GFR, DIFF, ALC, TROPHS #### [address] [address] Ovalocytes 1+ Normal [facility] ([place]) Comment on above: Performed By: #### C LYNNE BERRY MDW, CMP, GFR, DIFF, ALC, TROPHS #### [address] [address] Platelet Estimate Decreased Normal [facility] ([place]) Comment on above: Performed By: #### C LYNNE BERRY MDW, CMP, GFR, DIFF, ALC, TROPHS #### [address] [address] B12on 09-07-2023 Cobalamin (Vitamin B12) [Mass/Vol] 563 pg/mL Normal 211-911 [facility] ([place]) Comment on above: Performed By: #### C LYNNE BERRY MDW, CMP, GFR, DIFF, ALC, TROPHS #### [address] [address] CBCon 09-07-2023 Erythrocyte distribution width (RBC) [Ratio] 17.4 % High 11.5-14.5 [facility] ([place]) Comment on above: Performed By: #### C LYNNE BERRY MDW, CMP, GFR, DIFF, ALC, TROPHS #### [address] [address] Hematocrit (Bld) [Volume fraction] 34.4 % Low 42.0-52.0 [facility] ([place]) Comment on above: Performed By: #### C LYNNE BERRY MDW, CMP, GFR, DIFF, ALC, TROPHS #### [address] [address] Hgb 11.7 G/dL Low 14.0-18.0 [facility] ([place]) Comment on above: Performed By: #### C BC, MORPH, MDW, CMP, GFR, DIFF, ALC, TROPHS #### [address] [address] MCH (RBC) [Entitic mass] 34.7 pg High 27.0-31.2 [facility] ([place]) Comment on above: Performed By: #### C KRISTI, LYNNE, MDW, CMP, GFR, DIFF, ALC, TROPHS #### [place] [phone] MCHC 34.1 G/dL Normal 31.8-35.4 [facility] ([place]) Comment on above: Performed By: #### C KRISTI, LYNNE, MDW, CMP, GFR, DIFF, ALC, TROPHS #### [place] [phone] MCV (RBC) [Entitic vol] 101.9 fL High 80.0-94.0 [facility] ([place]) Comment on above: Performed By: #### C KRISTI, LYNNE, MDW, CMP, GFR, DIFF, ALC, TROPHS #### [place] [phone] Platelet 64 10 3/mcL Low 130-400 [facility] ([place]) Comment on above: Performed By: #### C KRISTI, LYNNE, MDW, CMP, GFR, DIFF, ALC, TROPHS #### [address] [address] Platelet mean volume (Bld) [Entitic vol] 8.1 fL Normal 7.4-10.4 [facility] ([place]) Comment on above: Performed By: #### C KRISTI, LYNNE, MDW, CMP, GFR, DIFF, ALC, TROPHS #### [place] [phone] RBC 3.38 10 6/mcL Low 4.04-6.13 [facility] ([place]) Comment on above: Performed By: #### C KRISTI, LYNNE, MDW, CMP, GFR, DIFF, ALC, TROPHS #### [place] [phone] WBC 2.0 10 3/mcL Low 4.6-10.8 [facility] ([place]) Comment on above: Performed By: #### C BC, MORPH, MDW, CMP, GFR, DIFF, ALC, TROPHS #### [address] [address] CMPon 09-07-2023 BUN/Creatinine Ratio 10 ratio Normal 7-27 [facility] ([place]) Comment on above: Performed By: #### C BC, MORPH, MDW, CMP, GFR, DIFF, ALC, TROPHS #### [address] [address] Calcium [Mass/Vol] 8.7 mg/dL Normal 8.4-10.2 [facility] ([place]) Comment on above: Performed By: #### C BC, MORPH, MDW, CMP, GFR, DIFF, ALC, TROPHS #### [address] [address] Chloride [Moles/Vol] 106 mmol/L Normal 98-107 [facility] ([place]) Comment on above: Performed By: #### C BC, MORPH, MDW, CMP, GFR, DIFF, ALC, TROPHS #### [address] [address] CO2 [Moles/Vol] 28 mmol/L Normal 23-31 [facility] ([facility]) Comment on above: Performed By: #### C BC, MORPH, MDW, CMP, GFR, DIFF, ALC, TROPHS #### [address] [address] Creatinine [Mass/Vol] 0.58 mg/dL Low 0.70-1.30 [facility] ([place]) Comment on above: Performed By: #### C BC, MORPH, MDW, CMP, GFR, DIFF, ALC, TROPHS #### [address] [address] Electrolyte Balance 13.0 mEq/L Normal 4.0-15.0 [facility] ([place]) Comment on above: Performed By: #### C BC, MORPH, MDW, CMP, GFR, DIFF, ALC, TROPHS #### [address] [address] Glucose [Mass/Vol] 88 mg/dL Normal 80-115 [facility] ([place]) Comment on above: Performed By: #### C KRISTI, LYNNE, W, CMP, GFR, DIFF, ALC, TROPHS #### [address] [address] Potassium [Moles/Vol] 3.8 mmol/L Normal 3.5-5.1 [facility] ([place]) Comment on above: Performed By: #### C KRISTI, LYNNE, MDW, CMP, GFR, DIFF, ALC, TROPHS #### [address] [address] Sodium [Moles/Vol] 147 mmol/L High 136-145 [facility] ([place]) Comment on above: Performed By: #### C KRISTI, LYNNE, JOHNNIE, CMP, GFR, DIFF, ALC, TROPHS #### [address] [address] Urea nitrogen [Mass/Vol] 6 mg/dL Low 7-18 [facility] ([facility]) Comment on above: Performed By: #### C KRISTI, JOHNNIE BATISTA, CMP, GFR, DIFF, ALC, TROPHS #### [address] [address] HFPon 09-07-2023 Bili Indirect 0.3 mg/dL Normal [facility] ([place]) Comment on above: Performed By: #### C KRISTI, JOHNNIE BATISTA, CMP, GFR, DIFF, ALC, TROPHS #### [address] [address] Albumin Level 3.1 G/dL Low 3.4-4.8 [facility] ([place]) Comment on above: Performed By: #### C KRISTI, LYNNE, W, CMP, GFR, DIFF, ALC, TROPHS #### [address] [address] Albumin/Globulin [Mass ratio] 0.8 {ratio} Low 1.1-2.5 [facility] ([place]) Comment on above: Performed By: #### C BC, MORPH, MDW, CMP, GFR, DIFF, ALC, TROPHS #### [address] [address] ALP [Catalytic activity/Vol] 179 U/L High 40-135 [facility] ([place]) Comment on above: Performed By: #### C BC, MORPH, MDW, CMP, GFR, DIFF, ALC, TROPHS #### [address] [address] ALT [Catalytic activity/Vol] 128 U/L High 16-63 [facility] ([place]) Comment on above: Performed By: #### C BC, LYNNE, MDW, CMP, GFR, DIFF, ALC, TROPHS #### [address] [address] AST [Catalytic activity/Vol] 261 U/L High 10-40 [facility] ([place]) Comment on above: Performed By: #### C BC, LYNNE, MDW, CMP, GFR, DIFF, ALC, TROPHS #### [address] [address] Bili Direct 0.3 mg/dL High 0.0-0.2 [facility] ([place]) Comment on above: Result Comment: Use of this assay is not recommended for patients undergoing treatment with eltrombopag due to the potential for falsely elevated results. Performed By: #### C BC, LYNNE, MDW, CMP, GFR, DIFF, ALC, TROPHS #### [place] [phone] Bili Total 0.6 mg/dL Normal 0.2-1.0 [facility] ([place]) Comment on above: Result Comment: Use of this assay is not recommended for patients undergoing treatment with eltrombopag due to the potential for falsely elevated results. Performed By: #### C BC, MORPH, MDW, CMP, GFR, DIFF, ALC, TROPHS #### [address] [address] Globulin 3.9 G/dL Normal [facility] ([place]) Comment on above: Performed By: #### C BC, MORPH, W, CMP, GFR, DIFF, ALC, TROPHS #### [place] [phone] [place], [place] [address] Total Protein 7.0 G/dL Normal 6.4-8.2 [facility] ([place]) Comment on above: Performed By: #### C KRISTI, LYNNE, W, CMP, GFR, DIFF, ALC, TROPHS #### [facility] [address] [place], [place] [address] LABORATORYOrdered By: SYSTEM SYSTEM on 09-07-2023 25-hydroxyvitamin [...] 09-07-2023 Magnesium [Mass/Vol] 1.5 mg/dL Low 1.8-2.4 [facility] ([place]) Comment on above: Performed By: #### C BC, MORPH, MDW, CMP, GFR, DIFF, ALC, TROPHS #### [place] [phone] No Panel InformationOrdered By: SYSTEM SYSTEM on 09-07-2023 Globulin 3.9 G/dL Invalid Interpretation Code AO ADM SS VIDHon 09-07-2023 Vit. D 25-Hydroxy 16.9 ng/mL Normal [facility] ([place]) Comment on above: Result Comment: Inte rpretive Values Based on Total 25(OH) Vitamin D: Deficient <20 ng/mL Insufficient 20 - <30 ng/mL Sufficient 30-100 ng/mL Performed By: #### C BC, MORPH, MDW, CMP, GFR, DIFF, ALC, TROPHS #### [facility] [address] [place], [place] [address] XR SHOULDER MINIMUM 2 VIEWS RIGHTon 07-18-2023 [...] 07/18/2023 11:13:46 AM Ordering Provider: BRANDY Meeks [facility] ([place]) XR SHOULDER MINIMUM 2 VIEWS RIGHTon 07-10-2023 [...] Sign Date: 07/10/2023 7:21:59 AM Ordering Provider: [facility] ([place]) XR SHOULDER MINIMUM 2 VIEWS RIGHT ORIGINAL [...] Sign Date: 07/10/2023 7:19:13 AM Ordering Provider: [facility]) XR SHOULDER MINIMUM 2 VIEWS RIGHT ORIGINAL [...] Sign Date: 07/10/2023 6:05:42 AM Ordering Provider: [facility] ([place]) LABORATORYOrdered By: Elliott Vitale on 09-06-2021 Albumin [...] Chemistry S ORon 05-30-2019 OPERATIVE REPORT Normal [facility] [place] OR DATE OF SERVICE: PREOPERATIVE DIAGNOSIS: Left [...] loss about 20 mL. Catracho Longo MD [id number] SSI File#: [id number] Verified/Reviewed by 06/10/19 132Rae PARADA [facility] PATIENT NAME: JENNIFER YORK [address] MEDICAL REC #: [id number] [place] [address] ADMIT DATE: DISCHARGE DATE: OPERATIVE REPORT ATTENDING PHY: Catracho Longo MD [facility] SURG 05-30-2019 SURG ------- Patient: JENNIFER YORK [...] aggregate. The tissue has ramirez cut surface. Timber Selector sections are submitted in cassette A1. MICROSCOPIC DESCRIPTION One Man stained slide examined. COPIES TO: No Family Physician given Catracho Longo MD Signed Verified/Reviewed by CR HADLEY MD 06/01/19 This dictation was created using voice recognition software. Phonetic and/or minor grammatical errors may exist. [facility] NAME: ROHANDARIUSZJENNIFER R [facility] UNIT#: [id number] LOC: [facility] Medical Apparatus Model Maker: Priti Szymanski M.D. ROOM/BED: [facility] : 60 AGE/SEX: 59/M ORD.Catracho Castelan MD END OF REPORT Normal [facility] [place] Vital Signs Date Time Vital Sign Value Performing Clinician Facility 02-03-2025 18:18-0400 Body temperature 97.8 [degF] Dr. Jennifer Villaseñor MD Work Phone: [facility] 02-03-2025 18:18-0400 Diastolic blood pressure 74 mm[Hg] Dr. Jennifer Villaseñor MD Work Phone: [facility] 02-03-2025 18:18-0400 Heart rate 82 /min Dr. Jennifer Villaseñor MD Work Phone: [facility] 02-03-2025 18:18-0400 Respiratory rate 16 /min Dr. Jennifer Villaseñor MD Work Phone: [facility] 02-03-2025 18:18-0400 SaO2% (BldA) [Mass fraction] 99 % Dr. Jennifer Villaseñor MD Work Phone: [facility] 02-03-2025 18:18-0400 Systolic blood pressure 138 mm[Hg] Dr. Jennifer Villaseñor MD Work Phone: [facility] 02-03-2025 11:54-0400 Body height 185.[address] Jennifer Villaseñor MD Work Phone: [facility] 10-13-2024 14:17-0500 Body temperature 98.6 [degF] CINDY KAPPER [facility] REPORTER-AUTO APPRENTICE MECHANIC [facility] 10-13-2024 14:17-0500 Diastolic Blood Pressure Non-Invasive 74 mm[Hg] CINDY KAPPER COURT REPORTER-AUTO APPRENTICE MECHANIC [facility] 10-13-2024 14:17-0500 Heart rate 93 /min CINDY [address] REPORTER-AUTO APPRENTICE MECHANIC [facility] 10-13-2024 14:17-0500 Reason For Taking VItal Signs CINDY KAPPER COURT REPORTER-AUTO APPRENTICE MECHANIC [facility] 10-13-2024 14:17-0500 Respiratory rate 16 /min CINDY [address] REPORTER-AUTO APPRENTICE MECHANIC [facility] 10-13-2024 14:17-0500 Systolic Blood Pressure Non-Invasive 101 mm[Hg] CINDY KAPPER COURT REPORTER-AUTO APPRENTICE MECHANIC [facility] 10-13-2024 11:03-0500 Body temperature 98.96 [degF] CINDY KAPPER COURT REPORTER-AUTO APPRENTICE MECHANIC [facility] 10-13-2024 11:03-0500 Diastolic Blood Pressure Non-Invasive 64 mm[Hg] CINDY KAPPER COURT REPORTER-AUTO APPRENTICE MECHANIC [facility] 10-13-2024 11:03-0500 Heart rate 99 /min CINDY [address] REPORTER-AUTO APPRENTICE MECHANIC [facility] 10-13-2024 11:03-0500 Reason For Taking VItal Signs CINDY KAPPER COURT REPORTER-AUTO APPRENTICE MECHANIC [facility] 10-13-2024 11:03-0500 Respiratory rate 16 /min CINDY [address] REPORTER-AUTO APPRENTICE MECHANIC [facility] 10-13-2024 11:03-0500 Systolic Blood Pressure Non-Invasive 94 mm[Hg] CINDY RICARDOER COURT REPORTER-AUTO APPRENTICE MECHANIC [facility] 10-13-2024 09:30-0500 Respiratory rate 16 /min CINDY [address] REPORTER-AUTO APPRENTICE MECHANIC [facility] 10-13-2024 06:58-0500 Body temperature 99.32 [degF] CINDY DAVIONER COURT REPORTER-AUTO APPRENTICE MECHANIC [facility] 10-13-2024 06:58-0500 Diastolic Blood Pressure Non-Invasive 92 mm[Hg] CINDY RICARDOER COURT REPORTER-AUTO APPRENTICE MECHANIC [facility] 10-13-2024 06:58-0500 Heart rate 92 /min CINDY [address] REPORTER-AUTO APPRENTICE MECHANIC [facility] 10-13-2024 06:58-0500 Reason For Taking VItal Signs CINDY BAILEY COURT REPORTER-AUTO APPRENTICE MECHANIC [facility] 10-13-2024 06:58-0500 Systolic Blood Pressure Non-Invasive 118 mm[Hg] CINDY RICARDOER COURT REPORTER-AUTO APPRENTICE MECHANIC [facility] 10-13-2024 04:46-0500 Heart rate 86 /min CINDY [address] REPORTER-AUTO APPRENTICE MECHANIC [facility] 10-13-2024 00:11-0500 Heart rate 86 /min CIND[address] REPORTER-AUTO APPRENTICE MECHANIC [facility] 10-12-2024 21:57-0500 Body height 185.[address] REPORTER-AUTO APPRENTICE MECHANIC [facility] 10-12-2024 21:57-0500 Body weight 81.[address] REPORTER-AUTO APPRENTICE MECHANIC [facility] 10-12-2024 21:57-0500 Body weight 23.59 kg/m2 CINDY [address] REPORTER-AUTO APPRENTICE MECHANIC [facility] 10-12-2024 05:19-0500 Heart rate 78 /min CINDY [address] REPORTER-AUTO APPRENTICE MECHANIC [facility] 10-11-2024 08:12-0500 SaO2% (BldA) [Mass fraction] 90.5 % CINDYBear [address] REPORTER-AUTO APPRENTICE MECHANIC [facility] 10-10-2024 06:21-0500 Body weight 81.[address] REPORTER-AUTO APPRENTICE MECHANIC [facility] 10-08-2024 17:00-0500 Mean blood pressure 85 mm[Hg] CINDY DAVIONER COURT REPORTER-AUTO APPRENTICE MECHANIC [facility] 10-08-2024 16:30-0500 Mean blood pressure 93 mm[Hg] CINDY DAVIONER COURT REPORTER-AUTO APPRENTICE MECHANIC [facility] 10-08-2024 16:15-0500 Mean blood pressure 89 mm[Hg] CINDYBear RICARDOER COURT REPORTER-AUTO APPRENTICE MECHANIC [facility] 10-08-2024 14:20-0500 Blood Pressure Cuff Size CINDY BAILEY COURT REPORTER-AUTO APPRENTICE MECHANIC [facility] 10-08-2024 14:20-0500 Blood Pressure Location CINDY BAILEY COURT REPORTER-AUTO APPRENTICE MECHANIC [facility] 10-08-2024 14:20-0500 Blood Pressure Method CINDY BAILEY [facility] REPORTER-AUTO APPRENTICE MECHANIC [facility] 08-05-2024 21:02-0500 Diastolic Blood Pressure Non-Invasive 90 mm[Hg] EMILIE FROMMELT DO [facility] 08-05-2024 21:02-0500 Heart rate 90 /min EMILIE FROMMELT DO [facility] 08-05-2024 21:02-0500 Respiratory rate 18 /min EMILIE FROMMELT DO [facility] 08-05-2024 21:02-0500 Systolic Blood Pressure Non-Invasive 150 mm[Hg] EMILIE FROMMELT DO [facility] 08-05-2024 18:06-0500 Diastolic Blood Pressure Non-Invasive 94 mm[Hg] EMILIE FROMMELT DO [facility] 08-05-2024 18:06-0500 Heart rate 93 /min EMILIE FROMMELT DO [facility] 08-05-2024 18:06-0500 Respiratory rate 18 /min EMILIE FROMMELT DO [facility] 08-05-2024 18:06-0500 Systolic Blood Pressure Non-Invasive 153 mm[Hg] EMILIE FROMMELT DO [facility] 08-05-2024 16:37-0500 Blood Pressure Cuff Size EMILIE FROMMELT DO [facility] 08-05-2024 16:37-0500 Blood Pressure Location [facility] [facility] 08-05-2024 16:37-0500 Blood Pressure Method EMILIE FROMMELT D O [facility] 08-05-2024 16:37-0500 Body height 185.4 cm EMILIE FROMALIXT DO [facility] 08-05-2024 16:37-0500 Body temperature 99.32 [degF] EMILIE FROMMELT DO [facility] 08-05-2024 16:37-0500 Body weight 84.1 kg EMILIE FROMMELT DO [facility] 08-05-2024 16:37-0500 Diastolic Blood Pressure Non-Invasive 103 mm[Hg] EMILIE JAMEST DO [facility] 08-05-2024 16:37-0500 Heart rate 90 /min EMILIE JAMEST DO [facility] 08-05-2024 16:37-0500 Respiratory rate 18 /min EMILIE JAMEST DO [facility] 08-05-2024 16:37-0500 Systolic Blood Pressure Non-Invasive 154 mm[Hg] EMILIE JAMEST DO [facility] 05-26-2024 06:08-0400 Diastolic Blood Pressure Non-Invasive 69 mm[Hg] NIDAL CHOUJAA DO [facility] 05-26-2024 06:08-0400 Heart rate 66 /min NIDAL CHOUJAA DO [facility] 05-26-2024 06:08-0400 Respiratory rate 16 /min NIDAL CHOUJAA DO [facility] 05-26-2024 06:08-0400 Systolic Blood Pressure Non-Invasive 123 mm[Hg] NIDAL CHOUJAA DO [facility] 05-26-2024 03:32-0400 Diastolic Blood Pressure Non-Invasive 67 mm[Hg] NIDAL CHOUJAA DO [facility] 05-26-2024 03:32-0400 Heart rate 83 /min NIDAL CHOUJAA DO [facility] 05-26-2024 03:32-0400 Systolic Blood Pressure Non-Invasive 113 mm[Hg] NIDAL CHOUJAA DO [facility] 05-26-2024 03:02-0400 Diastolic Blood Pressure Non-Invasive 69 mm[Hg] NIDAL CHOUJAA DO [facility] 05-26-2024 03:02-0400 Heart rate 85 /min NIDAL CHOUJAA DO [facility] 05-26-2024 03:02-0400 [facility] 20 /[facility] 05-26-2024 03:02-0400 Systolic Blood Pressure Non-Invasive 117 mm[Hg] NIDAL CHOUJAA DO [facility] 05-26-2024 02:11-0400 Body temperature 98.06 [degF] NIDAL CHOUJAA DO [facility] 05-26-2024 02:11-0400 Body weight 80.8 kg NIDAL CHOUJAA DO [facility] 05-26-2024 02:11-0400 Respiratory rate 20 /min [facility] 05-17-2024 07:13-0400 Blood Pressure Cuff Size JANET SOSA MD [facility] 05-17-2024 07:13-0400 Blood Pressure Location JANET SOSA MD [facility] 05-17-2024 07:13-0400 Blood Pressure Method JANET SOSA MD [facility] 05-17-2024 07:13-0400 Body temperature 98.24 [degF] JANET SOSA MD [address] 05-17-2024 07:13-0400 Diastolic Blood Pressure Non-Invasive 69 mm[Hg] JANET SOSA MD [address] [place] [address] 05-17-2024 07:13-0400 Heart rate 77 /min JANET SOSA MD [address] [place] [address] 05-17-2024 07:13-0400 Respiratory rate 16 /min JANET SOSA MD [address] [place] [address] 05-17-2024 07:13-0400 Systolic Blood Pressure Non-Invasive 107 mm[Hg] JANET SOSA MD [address] [place] [address] 05-17-2024 03:05-0400 Body temperature 97.88 [degF] JANET SOSA MD [address] [place] [address] 05-17-2024 03:05-0400 Diastolic Blood Pressure Non-Invasive 62 mm[Hg] JANET SOSA MD [address] [place] [address] 05-17-2024 03:05-0400 Heart rate 82 /min JANET SOSA MD [address] [place] [address] 05-17-2024 03:05-0400 Respiratory rate 14 /min JANET SOSA MD [address] [place] [address] 05-17-2024 03:05-0400 Systolic Blood Pressure Non-Invasive 108 mm[Hg] JANET SOSA MD [address] 05-16-2024 22:44-0400 Body temperature 98.06 [degF] JANET SOSA MD [address] [place] [address] 05-16-2024 22:44-0400 Diastolic Blood Pressure Non-Invasive 66 mm[Hg] JANET SOSA MD [address] 05-16-2024 22:44-0400 Heart rate 75 /min JANET SOSA MD [address] [place] [address] 09-30-2024 22:44-0400 Respiratory rate 16 /min JANET SOSA MD [facility] 05-16-2024 22:44-0400 Systolic Blood Pressure Non-Invasive 107 mm[Hg] JANET SOSA MD [facility] 05-16-2024 19:08-0400 Heart rate 61 /min JANET SOSA MD [facility] 05-16-2024 16:56-0400 Heart rate 74 /min JANET SOSA MD [facility] 05-16-2024 11:34-0400 Blood Pressure Cuff Size JANET SOSA MD [facility] 05-16-2024 11:34-0400 Blood Pressure Location JANET SOSA MD [facility] 05-16-2024 11:34-0400 Blood Pressure Method JANET SOSA MD [facility] 05-16-2024 11:34-0400 Heart rate 73 /min JANET SOSA MD [facility] 05-16-2024 06:59-0400 Blood Pressure Cuff Size JANET SOSA MD [facility] 05-16-2024 06:59-0400 Blood Pressure Location JANET SOSA MD [facility] 05-16-2024 06:59-0400 Blood Pressure Method JANET SOSA MD [facility] 05-16-2024 02:21-0400 Body height 185.4 cm JANET SOSA MD [facility] 05-16-2024 02:21-0400 Body weight 85.7 kg JANET SOSA MD [facility] 05-16-2024 02:21-0400 Body weight 24.93 kg/m2 JANET SOSA MD [facility] 05-15-2024 15:30-0400 Body weight 85.7 kg JANET SOSA MD [facility] 05-15-2024 14:26-0400 Diastolic Blood Pressure Non-Invasive 89 mm[Hg] ALEXANDRA PALAFOX MD [facility] 05-15-2024 14:26-0400 Heart rate 90 /min ALEXANDRA PALAFOX MD [facility] 05-15-2024 14:26-0400 Mean blood pressure 103 mm[Hg] ALEXANDRA PALAFOX MD [facility] 05-15-2024 14:26-0400 Respiratory rate 16 /min ALEXANDRA PALAFOX MD [facility] 05-15-2024 14:26-0400 Systolic Blood Pressure Non-Invasive 132 mm[Hg] ALEXANDRA PALAFOX MD [facility] 05-15-2024 12:35-0400 Diastolic Blood Pressure Non-Invasive 90 mm[Hg] ALEXANDRA PALAFOX MD [facility] 05-15-2024 12:35-0400 Heart rate 93 /min ALEXANDRA PALAFOX MD [facility] 05-15-2024 12:35-0400 Mean blood pressure 102 mm[Hg] ALEXANDRA PALAFOX MD [facility] 05-15-2024 12:35-0400 Respiratory rate 16 /min ALEXANDRA PALAFOX MD [facility] 05-15-2024 12:35-0400 Systolic Blood Pressure Non-Invasive 130 mm[Hg] ALEXANDRA PALAFOX MD [facility] 05-15-2024 11:06-0400 Blood Pressure Location ALEXANDRA PALAFOX MD [facility] 05-15-2024 11:06-0400 Body temperature 99.14 [degF] ALEXANDRA PALAFOX MD [facility] 05-15-2024 11:06-0400 Diastolic Blood Pressure Non-Invasive 66 mm[Hg] ALEXANDRA PALAFOX MD [facility] 05-15-2024 11:06-0400 Heart rate 67 /min ALEXANDRA PALAFOX MD [facility] 05-15-2024 11:06-0400 Respiratory rate 16 /min ALEXANDRA PALAFOX MD [facility] 05-15-2024 11:06-0400 Systolic Blood Pressure Non-Invasive 145 mm[Hg] ALEXANDRA PALAFOX MD [facility] 03-30-2024 07:32-0400 Diastolic Blood Pressure Non-Invasive 95 mm[Hg] DR MECCA SALEEM MD [facility] 03-30-2024 07:32-0400 Heart rate 83 /min DR MECCA SALEEM MD [facility] 03-30-2024 07:32-0400 Respiratory rate 18 /min DR MECCA SALEEM MD [facility] 03-30-2024 07:32-0400 Systolic Blood Pressure Non-Invasive 148 mm[Hg] DR MECCA SALEEM MD [facility] 03-29-2024 23:05-0400 Diastolic Blood Pressure Non-Invasive 77 mm[Hg] DR MECCA SALEEM MD [address] [place] [address] 03-29-2024 23:05-0400 Heart rate 82 /min DR MECCA SALEEM MD [facility] 03-29-2024 23:05-0400 Respiratory rate 18 /min DR MECCA SALEEM MD [facility] 03-29-2024 23:05-0400 Systolic Blood Pressure Non-Invasive 127 mm[Hg] DR MECCA SALEEM MD [facility] 03-29-2024 22:56-0400 Body weight [address] MECCA SALEEM MD [facility] 03-29-2024 20:17-0400 Diastolic Blood Pressure Non-Invasive 96 mm[Hg] DR MECCA SALEEM MD [facility] 03-29-2024 20:17-0400 Heart rate 79 /min DR MECCA SALEEM MD [address] [place] [address] 03-29-2024 20:17-0400 Respiratory rate 13 /min DR MECCA SALEEM MD [facility] 03-29-2024 20:17-0400 Systolic Blood Pressure Non-Invasive 150 mm[Hg] DR MECCA SALEEM MD [facility] 03-29-2024 17:29-0400 Body temperature 99.14 [degF] DR MECCA SALEEM MD [facility] 03-29-2024 17:29-0400 Heart rate 91 /min DR MECCA SALEEM MD [facility] 12-25-2023 12:50-0400 Body temperature 98.3 [degF] Dr. Jennifer Villaseñor Work Phone: [facility] 12-25-2023 12:50-0400 Diastolic blood pressure 75 mm[Hg] Dr. Jennifer Villaseñor Work Phone: [facility] 12-25-2023 12:50-0400 Heart rate 80 /min Dr. Jennifer Villaseñor Work Phone: [facility] 12-25-2023 12:50-0400 Respiratory rate 18 /min Dr. Jennifer Villaseñor Work Phone: [facility] 12-25-2023 12:50-0400 SaO2% (BldA) [Mass fraction] 95 % Dr. Jennifer Villaseñor Work Phone: [facility] 12-25-2023 12:50-0400 Systolic blood pressure 106 mm[Hg] Dr. Jennifer Villaseñor Work Phone: [facility] 12-25-2023 04:01-0400 Body mass index (BMI) [Ratio] 23.5 kg/m2 Dr. Jennifer Villaseñor Work Phone: [facility] 12-25-2023 04:01-0400 Body weight 80.[address] Jennifer Villaseñor Work Phone: [facility] 12-19-2023 01:50-0400 Body height 185.[address] Jennifer Villaseñor Work Phone: [facility] 12-19-2023 01:50-0400 Body mass index (BMI) [Ratio] 22.4 kg/m2 Dr. Jennifer Villaseñor Work Phone: [facility] 12-19-2023 01:50-0400 Body weight 76.[address] Jennifer Villaseñor Work Phone: [facility] 12-19-2023 01:29-0400 Body temperature 98.5 [degF] Dr. Jennifer Villaseñor Work Phone: [facility] 12-19-2023 01:29-0400 Diastolic blood pressure 115 mm[Hg] Dr. Jennifer Villaseñor Work Phone: [facility] 12-19-2023 01:29-0400 Heart rate 91 /min Dr. Jennifer Villaseñor Work Phone: [facility] 12-19-2023 01:29-0400 Respiratory rate 18 /min Dr. Jennifer Villaseñor Work Phone: [facility] 12-19-2023 01:29-0400 SaO2% (BldA) [Mass fraction] 94 % Dr. Jennifer Villaseñor Work Phone: [facility] 12-19-2023 01:29-0400 Systolic blood pressure 140 mm[Hg] Dr. Jennifer Villaseñor Work Phone: [facility] 11-01-2023 22:15-0400 Diastolic Blood Pressure Non-Invasive 70 mm[Hg] NATHANIEL REICHFIELD DO [facility] 11-01-2023 22:15-0400 Heart rate 68 /min NATHANIEL REICHFIELD DO [facility] 11-01-2023 22:15-0400 Respiratory rate 16 /min NATHANIEL REICHFIELD DO [facility] 11-01-2023 22:15-0400 Systolic Blood Pressure Non-Invasive 118 mm[Hg] NATHANIEL REICHFIELD DO [facility] 11-01-2023 20:12-0400 Diastolic Blood Pressure Non-Invasive 75 mm[Hg] NATHANIEL REICHFIELD DO [facility] 11-01-2023 20:12-0400 Heart rate 61 /min NATHANIEL REICHFIELD DO [facility] 11-01-2023 20:12-0400 Respiratory rate 15 /min NATHANIEL REICHFIELD DO [facility] 11-01-2023 20:12-0400 Systolic Blood Pressure Non-Invasive 115 mm[Hg] NATHANIEL REICHFIELD DO [facility] 11-01-2023 19:14-0400 Body temperature 97.88 [degF] NATHANIEL REICHFIELD DO [facility] 11-01-2023 19:14-0400 Diastolic Blood Pressure Non-Invasive 78 mm[Hg] NATHANIEL REICHFIELD DO [facility] 11-01-2023 19:14-0400 Heart rate 74 /min NATHANIEL REICHFIELD DO [facility] 11-01-2023 19:14-0400 Respiratory rate 16 /[facility] 11-01-2023 19:14-0400 Systolic Blood Pressure Non-Invasive 114 mm[Hg] [facility] 07-18-2023 09:49-[address] BRANDY CASTANEDA MD [facility] 07-18-2023 09:49-0500 Body temperature 97.88 [degF] DR BRANDY CASTANEDA MD [facility] 07-18-2023 09:49-0500 Diastolic Blood Pressure Non-Invasive 92 mm[Hg] DR BRANDY CASTANEDA MD [facility] 07-18-2023 09:49-0500 Heart rate 87 /min DR BRANDY CASTANEDA MD [facility] 07-18-2023 09:49-0500 Respiratory rate 16 /min DR BRANDY CASTANEDA MD [facility] 07-18-2023 09:49-0500 Systolic Blood Pressure Non-Invasive 150 mm[Hg] DR BRANDY CASTANEDA MD [facility] 07-10-2023 05:23-0500 Blood Pressure Location CY MEDEIROS MD [facility] 07-10-2023 05:23-0500 Blood Pressure Method CY MEDEIROS MD [facility] 07-10-2023 05:23-0500 Body height 185.4 cm CY MEDEIROS MD [facility] 07-10-2023 05:23-0500 Body temperature 97.52 [degF] CY MEDEIROS MD [facility] 07-10-2023 05:23-0500 Body weight 81.8 kg CY MEDEIROS MD [facility] 07-10-2023 05:23-0500 Diastolic Blood Pressure Non-Invasive 86 mm[Hg] CY MEDEIROS MD [facility] 07-10-2023 05:23-0500 Heart rate 100 /min CY MEDEIROS MD [facility] 07-10-2023 05:23-0500 Respiratory rate 20 /min CY MEDEIROS MD [facility] 07-10-2023 05:23-0500 Systolic Blood Pressure Non-Invasive 157 mm[Hg] CY MEDEIROS MD [facility] Encounters Encounter Date Encounter Type Care Provider Facility Start: 02-03-2025 End: 02-03-2025 Emergency department patient visit Dr. 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 [facility] REPORTER-AUTO APPRENTICE MECHANIC [facility] Start: 08-05-2024 End: 08-05-2024 Emergency department patient visit EMILIE FIGUEROA DO [facility] Start: 07-01-2024 ambulatory SUZANNA CARPENTER MD Facilit y:A Start: 05-26-2024 End: 05-26-2024 Emergency department patient visit CHARLIE KENNY DO [facility] Start: 05-15-2024 End: 05-17-2024 Evaluation and management of inpatient JANET SOSA MD [facility] Start: 05-15-2024 End: 05-15-2024 Emergency department patient visit ALEXANDRA PALAFOX MD [facility] Start: 03-29-2024 End: 03-30-2024 Emergency department patient visit DR MECCA SALEEM MD [facility] Start: 02-13-2024 End: 02-13-2024 ambulatory JENNIFER VILLASEÑOR MD Facility:A Start: 02-13-2024 End: 02-13-2024 Patient encounter procedure PHY WO ID REFERRING [facility] Start: 12-25-2023 Non-patient / Non-visit Dr. Jennifer Villaseñor Work Phone: [facility] Work Phone: Start: 12-24-2023 Non-patient / Non-visit Dr. Jennifer Villaseñor Work Phone: [facility] Work Phone: Start: 12-23-2023 Non-patient / Non-visit Dr. Jennifer Villaseñor Work Phone: [facility] Work Phone: Start: 12-22-2023 Non-patient / Non-visit Dr. Jennifer Villaseñor Work Phone: [facility] Work Phone: Start: 12-21-2023 Non-patient / Non-visit Dr. Jennifer Villaseñor Work Phone: [facility] Work Phone: Start: 12-20-2023 Non-patient / Non-visit Dr. Jennifer Villaseñor Work Phone: [facility] Work Phone: Start: 12-19-2023 End: 12-25-2023 Evaluation and management of inpatient Dr. Jennifer Villaseñor Work Phone: [facility] Work Phone: Start: 12-19-2023 Non-patient / Non-visit Dr. Jennifer Villaseñor Work Phone: [facility] Work Phone: Start: 11-01-2023 End: 11-01-2023 Emergency department patient visit NATHANIEL CARUSO [facility] Start: 09-16-2023 End: 09-16-2023 ambulatory JENNIFER VILLASEÑOR MD Facility:B Start: 09-16-2023 End: 09-16-2023 Patient encounter procedure JENNIFER VILLASEÑOR MD [facility] Start: 09-07-2023 End: 09-11-2023 ambulatory JENNIFER VILLASEÑOR MD Facility:B Start: 09-07-2023 End: 09-11-2023 Outreach Lab JENNIFER VILLASEÑOR MD [facility] Start: 09-03-2023 ambulatory JENNIFER VILLASEÑOR MD Faci lity:B Start: 07-18-2023 End: 07-18-2023 Emergency department patient visit DR BRANDY CASTANEDA MD [facility] Start: 07-10-2023 End: 07-10-2023 Emergency department patient visit CY MEDEIROS MD [facility] Start: 03-30-2023 End: 07-06-2023 Physical therapy management PHY WO ID REFERRING [facility] Start: 01-16-2023 End: 01-16-2023 Patient encounter procedure JENNIFER VILLASEÑOR MD [facility] Start: 01-08-2022 End: 01-08-2022 Patient encounter procedure VIVEK [facility] REPORTER-AUTO APPRENTICE MECHANIC [facility] Start: 09-06-2021 End: 09-06-2021 Patient encounter procedure JENNIFER VILLASEÑOR MD [facility] Procedures Date Procedure Procedure Detail [...] Date Care Activity Detail Author Start: 02-03-2025 [facility] Start: 12-25-2023 Patient discharge [facility] Start: 12-19-2023 Bacteria identified in Blood by Culture Blood Culture [facility] Start: 12-19-2023 Referral to service [facility] Start: 12-19-2023 Referral to occupational therapist [facility] Start: 12-19-2023 Ultrasonography of abdomen Liver [facility] Start: 12-19-2023 Vitamin B12 measurement [facility] Start: 12-19-2023 [facility] Start: 12-19-2023 Application of intermittent pneumatic compression device [facility] Start: 12-19-2023 Following clinical pathway protocol [facility] Start: 12-19-2023 Assessment of risk of venous thromboembolism [facility] Start: 12-19-2023 Bacteria identified in Sputum by Culture [facility] Start: 12-19-2023 Fall prevention [facility] Start: 12-19-2023 Incentive spirometry [facility] Start: 12-19-2023 Inhalation therapy procedure [facility] Start: 12-19-2023 Insertion of catheter into peripheral vein [facility] Start: 12-19-2023 Introduction of urinary catheter [facility] Start: 12-19-2023 Measuring intake and output [facility] Start: 12-19-2023 Oxygen therapy [facility] Start: 12-19-2023 Providing care according to standard [facility] Start: 12-19-2023 Provision of activity privileges [facility] Start: 12-19-2023 Referral to service [facility] Start: 12-19-2023 Taking nasal swab [facility] Start: 12-19-2023 Tobacco use cessation education [facility] Start: 12-19-2023 [facility] Start: 12-19-2023 Respiratory pathogens DNA and RNA panel - Respiratory specimen by VIVIANE with probe detection [facility] Start: 12-19-2023 Verification routine [facility] Start: 12-19-2023 Admission procedure [facility] Start: 12-19-2023 End: 12-19-2023 Blood culture [facility] Start: 12-18-2023 [facility] Alanine aminotransfe rase [Enzymatic activity/volume] in Serum or Plasma [facility] Albumin [Mass/volume ] in Serum or Plasma [facility] Alkaline phosphatase [Enzymatic activity/volume] in Serum or Plasma [facility] Anion gap measurement [facility] Aspartate aminotrans ferase [Enzymatic activity/volume] in Serum or Plasma [facility] Bacteria identified in Urine by Culture [facility] Bilirubin, total measurement [facility] BUN/Creatinine ratio [facility] Calcium [Mass/volume ] in Serum or Plasma [facility] Carbon dioxide, tota l [Moles/volume] in Serum or Plasma [facility] Chloride [Moles/volu me] in Serum or Plasma [facility] Creatinine [Moles/vo lume] in Serum or Plasma [facility] Erythrocyte mean corpuscular volume determination [facility] Folate [Mass/volume] in Serum or Plasma [facility] Glucose [Mass/volume ] in Serum or Plasma [facility] Hematocrit [Volume Fraction] of Blood [facility] Hemoglobin [Mass/vol ume] in Blood [facility] Hemoglobin A1c/Hemoglobin.total in Blood [facility] Leukocytes [#/volume ] in Blood [facility] Magnesium [Mass/volu me] in Serum or Plasma [facility] Mean corpuscular hem oglobin concentration determination [facility] Mean corpuscular hem oglobin determination [facility] Measurement of renal function [facility] Neutrophil count [facility] Neutrophil percent differential count [facility] Patient Education ED Alcohol Int oxication ED Rib Fracture ED Head Injury (Adult) [facility] Work Phone: Patient referral [facility] Work Phone: Platelets [#/volume] in Blood [facility] Potassium [Moles/vol ume] in Serum or Plasma [facility] Procalcitonin [Mass/ volume] in Serum or Plasma [facility] Red blood cell count [facility] Red cell distributio n width determination [facility] Sodium [Moles/volume ] in Serum or Plasma [facility] Total protein measurement [facility] Urea nitrogen [Mass/ volume] in Serum or Plasma [facility] Immunizations Immunization Date Immunization Notes Care Provider Jasvir evans 11-20-2020 SARS-CoV-2 mRNA (tozinameran) vaccine [facility]ASE[facility] 10-30-2020 SARS-CoV-2 mRNA (tozinameran) vaccine JENNIFER VILLASEÑOR MD [facility] Comment on above: Result Comment: 2022: [id number] 06-08-2013 tetanus toxoid, redu ok diphtheria toxoid, and acellular pertussis vaccine, adsorbed JENNIFER VILLASEÑOR [facility] Payers Date Payer Category Payer Self-pay [id number] 2024 Private Health Insurance [id number] 2024 Unknown [id number] 2024 Private Health Insurance [id number] 2024 Unknown [id number] 2024 Unknown [id number] 2023 Medicaid [id number] 2023 Unknown [id number] 1960 Unknown [id number] 27 1960 Unknown [id number] [id number] 1960 Unknown [id number] 2.16.840.1.367222.3.579.2.6 1960 Unknown [id number] 2.16.840.1.239572.3.579.2.6 1960 Unknown [id number] 2.16.840.1.867478.3.579.2.6 1960 Unknown [id number] 2.16.840.1.251034.3.579.2.6 1960 Unknown [id number] 2.16.840.1.255358.3.579.2.6 1960 Unknown [id number] 2.16.840.1.599624.3.579.2.6 1960 Unknown [id number] 2.16.840.1.710970.3.579.2.6 1960 Unknown [id number] 2.16.840.1.224217.3.579.2.6 1960 Unknown [id number] 2.16.840.1.053083.3.579.2.6 1960 Unknown [id number] 2.16.840.1.838058.3.579.2.6 1960 Unknown [id number] 2.16.840.1.040076.3.579.2.6 1960 Unknown [id number] 2.16.840.1.867498.3.579.2.6 27 Unknown [employer] [id number] Unknown SELF INSURED [facility] OTHER 05-16 [id number] Unknown [id number] Social History Date Type Detail Facility Start: 10-15-2020 End: 05-26-2024 Heavy tobacco smoker (finding) [facility] Start: 08-07-2023 Tobacco smoking status Light tobacco smoker (finding) [facility] Start: 12-19-2023 Tobacco smoking status NHIS Unknown if ever smoked [facility] Start: 11-21-2019 Heavy [facility] Start: 11-21-2019 None [facility] Start: 11-21-2019 Spouse/ Signif icant Other [facility] Start: 11-22-2019 Cigarettes [facility] Start: 1960 Sex Assigned At Male [facility] Start: 10-21-2016 Sex Male (finding) [facility] Start: 02-03-2025 Tobacco smoking status NHIS Smokes tobacco daily (finding) [facility] Goals Date Patient Goal Desired Activity /State Functional Status Date Assessment Result Facility 10-13-2024 Functional Status Room check performed [facility] 10-13-2024 Functional Status Total [facility] 10-13-2024 Functional Status [facility] 10-13-2024 Functional Status [facility] 10-12-2024 Functional Status [facility] 10-12-2024 Functional Status [facility] 10-12-2024 Functional Status [facility] 10-12-2024 Functional Status [facility] 10-12-2024 Functional Status [facility] 10-11-2024 Functional Status Single level home [facility] 10-11-2024 Functional Status [facility] 10-10-2024 [facility] 10-09-2024 Functional Status low air loss bed [facility] 10-09-2024 [facility] 10-09-2024 Functional Status Done [facility] 10-08-2024 [facility] 10-08-2024 Functional Status Feeding Assist ance Maximum assistance [facility] 05-26-2024 Functional Status [facility] 05-26-[facility]24 Functional Status Ambulation in Cloud [facility] 05-17-2024 Functional Status Refused by family membe r [facility] 05-17-2024 Functional Status Room check performed [facility] 05-17-2024 Functional Status [facility] 05-17-2024 Functional Status [facility] 05-16-2024 Functional Status [facility] 05-16-2024 Functional Status Sitting on edge of bed [facility] 05-16-2024 Functional Status [facility] 05-16-2024 Functional Status [facility] 05-16-2024 Functional Status [facility] 05-16-2024 Functional Status [facility] 05-16-2024 Functional Status Min A [facility] 05-16-2024 Functional Status Sensory Deficits None A [facility] 05-15-2024 Functional Status ID band on [facility] 03-30-2024 Functional Status Minimum [facility] 03-30-2024 Functional Status Activity Statu s ADL Sleeps intermittently [facility] 03-30-2024 Functional Status [facility] 03-29-2024 Functional Status Identified as high risk, Room located near nursing station, Room check performed [facility] 12-25-2023 Functional status Ambulates;Bathroom Priv [facility] Work Phone: 11-01-2023 Functional Status Minimum assistance [facility] 11-01-2023 Functional Status Identified as high risk, Room located near nursing station, Bed alert on, Non-Slip footwear, Reoriented, supervised while toileting, Security notified [facility] 07-18-2023 Functional Status Independent [facility] 07-18-2023 Functional Status ID band on [facility] 07-10-2023 Functional Status Standard Safet y ID band on, Call device within reach, Bed in low position, Wheels locked, personal items within reach [facility] 03-30-2023 Functional Status Home Living Ad [...] bilat Scour: NT Hip IR: see chart [facility] Mental Status Date Assessment Result Facility 10-13-2024 Mental Status Not oriented to time, Not oriented to situation, Does not interact [facility] 10-13-2024 Mental Status [facility] 10-12-2024 Mental Status [facility] 08-05-2024 Mental Status Orientation Oriented x 4 [facility] 05-26-2024 Mental Status Orientation Oriented x 4 [facility] 05-26-2024 Mental Status [facility] 05-17-2024 Mental Status Oriented x 4 [facility] 05-16-2024 Mental Status [facility] 05-16-2024 Mental Status [facility] 05-16-2024 Mental Status [facility] 05-15-2024 Mental Status Orientation Oriented x 4 [facility] 03-30-2024 Mental Status Orientation Oriented x 4 [facility] 03-29-2024 Mental Status [facility] 12-25-2023 Cognitive function Voice/Name [facility] Work Phone: 12-18-2023 Cognitive function Voice/Name [facility] Work Phone: 11-01-2023 Mental Status Orientation Oriented x 4 [facility] 11-01-2023 [facility] 07-18-2023 Mental Status Orientation Oriented x 4 [facility] 07-18-2023 Mental Status [facility] 07-10-2023 Mental Status Orientation Oriented x 4 [facility] Clinical Notes 01-13-2023 to 02-03-2025 Note Date & Type Note Facility 02-03-2025 Radiology Diagnostic study note [facility] Imaging Services [address] [place], [place] [address] Abdomen/Pelvis W IV Cont ONLY MR#: [id number] Acct: [id number] Name: JENNIFER YORK Rep #: [id number] : 1960 M 64 From: Jil Brunner MD PCP: Dr. Jennifer Villaseñor MD Status: REG ER Study:Abdomen/Pelvis W IV Cont ONLY Date of E xam: 02/03/25 Exam# [id number] Ordering Dr: Mallika Marvin DO EXAM: CT [...] fat. 6. Inguinal hernias, bilaterally. Reading Location: [facility] CC: Dr. Abby Marvin DO; Dr. Jennifer Villaseñor MD ~ Nutrient Management Specialist: Signed [facility] 02-03-2025 Radiology Diagnostic study note [facility] Imaging Services [address] [place], [place] [address] Chest without Contrast MR#: [id number] Acct: [id number] Name: JENNIFER YORK Rep #: [id number] : 1960 M 64 From: Salvador Fontenot MD PCP: Dr. Jennifer Villaseñor MD Status: REG ER Study:Chest without Contrast Date of Exam: 02/03/25 Exam# [id number] Ordering Dr: Mallika Marvin DO PROCEDURE: CHEST [...] Minimal amount of perisplenic fluid. Reading Location: [place] [address] CC: Dr. Abby Marvin DO; Dr. Jennifer Villaseñor MD ~ Nutrient Management Specialist: Signed [facility] 02-03-2025 Radiology Diagnostic study note [facility] Imaging Services [address] [place] [address] Brain/Head without Contrast MR#: [id number] Acct: [id number] Name: JENNIFER YORK Rep #: [id number] : 1960 M 64 From: Salvador Fontenot MD PCP: Dr. Jennifer Villaseñor MD Status: REG ER Study:Brain/Head without Contrast Date of Exa m: 02/03/25 Exam# [id number] Ordering Dr: Mallika Marvin DO PROCEDURE: BRAIN/HEAD [...] CHRONIC CHANGES. NO ACUTE FINDINGS. Reading Location: [facility] CC: Dr. Abby Marvin DO; Dr. Jennifer Villaseñor MD ~ Nutrient Management Specialist: Signed [facility] 10-14-2024 Note . MICRO - [...] Locations *1: This test was performed at: [facility], [address] [place] [address], [facility] , [facility] 10-14-2024 Note . MICRO - Microbiology PROCEDURE: [...] Locations *1: This test was performed at: [facility], [address] [place] [address], [id number]- , [facility] 10-13-2024 Hospital Discharge instructions Patient Education 10/13/2024 13:33:31 Influenza, Adult, Vnhq-ir-Iuyy Influenza, Adult Influenza is also called the [...] get better. Your doctor may suggest: Taking bvmj-ebl-fweowjs medicines. Drinking plenty of fluids. The flu [...] fruit juice). ?Low-calorie sports drinks. Eat bland, wdlr-xt-jnoxgl foods in small amounts as you are able. These foods include: ?Bananas. ?Applesauce. ?Rice. ?Lean meats. ?Highgrove. ?Crackers. Do not eat or drink: ?Fluids that have a lot of sugar or caffeine. ?Alcohol. ?Spicy or fatty foods. General instructions Take wswq-xfg-ltrvvnz and prescription medicines only as told by [...] use soap and water, use alcohol-based hand labor economist. Keep all follow-up visits as told by [...] It is caused by a virus. Take rqca-qpi-fagjsic and prescription medicines only as told by your doctor. Getting a flu shot every year is the best way to avoid getting the flu. This information is not intended to replace advice given to you by your health care provider. Make sure you discuss any questions you have with your health care provider. Document Released: 05/12/2009 Document Revised: 01/19/2019 Document Reviewed: 01/19/2019 [employer] Patient Education 2020 [employer]. 10/13/2024 13:33:25 Hypokalemia Hypokalemia Hypokalemia means that [...] hospital. Follow these instructions at home: Take pgvp-ydj-imjkxvo and prescription medicines only as told by [...] cantaloupe, kiwi, oranges, tomatoes, asparagus, and potatoes. ?Paterson juice. ?Tomato juice. ?Red meats. ?Yogurt. Keep [...] 08/03/2006 Document Revised: 03/16/2019 Document Reviewed: 03/16/2019 [employer] Patient Education 2020 [employer]. 10/13/2024 13:33:22 Hypomagnesemia Hypomagnesemia Hypomagnesemia is a [...] do that. Take them as directed. Take mbzb-rpo-zcffngl and prescription medicines only as told by [...] 04/29/2006 Document Revised: 07/16/2018 Document Reviewed: 07/05/2018 [employer] Patient Education 2020 [employer]. Follow Up Care 10/08/2024 14:17:41 With:JENNIFER VILLASEÑOR MD Address: [address] [facility] [facility] [place] [address]- When: Unknown [facility] 10-13-2024 Note Discharge Instructions Thank you for allowing [facility] to assist you with your healthcare needs. The following is important discharge information regarding your hospital visit. Your Care Team [facility] Your Diagnosis Alcoholic cirrhosis Alcoholism [...] growth. Antibiotic discontinued. He was placed on [facility] protocol with scheduled Librium and [...] JENNIFER VILLASEÑOR MD Where:[address] [facility] [place] [address]- The Following Activity and Diet Have Been [...] get better. Your doctor may suggest: Taking qszf-ebz-vqoawuv medicines. Drinking plenty of fluids. The flu [...] juice). ? Low-calorie sports drinks. Eat bland, mcpu-dl-wwbxqf foods in small amounts as you are able. These foods include: ? Bananas. ? Applesauce. ? Rice. ? Lean meats. ? Highgrove. ? Crackers. Do not eat or drink: ? Fluids that have a lot of sugar or caffeine. ? Alcohol. ? Spicy or fatty foods. General instructions Take imug-txq-zreuwoh and prescription medicines only as told by [...] use soap and water, use alcohol-based hand labor economist. Keep all follow-up visits as told by [...] It is caused by a virus. Take yakq-tby-uegagqt and prescription medicines only as told by your doctor. Getting a flu shot every year is the best way to avoid getting the flu. This information is not intended to replace advice given to you by your health care provider. Make sure you discuss any questions you have with your health care provider. Document Released: 05/12/2009 Document Revised: 01/19/2019 Document Reviewed: 01/19/2019 [employer] Patient Education 2020 [employer]. Hypokalemia Hypokalemia means that the amount of [...] hospital. Follow these instructions at home: Take hgwt-xkx-rrsiekz and prescription medicines only as told by [...] kiwi, oranges, tomatoes, asparagus, and potatoes. ? Paterson juice. ? Tomato juice. ? Red meats. [...] 08/03/2006 Document Revised: 03/16/2019 Document Reviewed: 03/16/2019 [employer] Patient Education 2020 [employer]. Hypomagnesemia Hypomagnesemia is a condition in [...] do that. Take them as directed. Take ccdz-avg-etfmehu and prescription medicines only as told by [...] 04/29/2006 Document Revised: 07/16/2018 Document Reviewed: 07/05/2018 [employer] Patient Education 2020 [employer]. Additional Information VACCINATE! IT SAVES LIVES! Members of the community who have not yet received the COVID-19 vaccine and would like to receive it can visit one of [facility] vaccine clinics. There are many vaccine clinic locations within the [facility]. For locations and available times, please visit https://gettheshot.coronavirus.[place].gov/. It is important to note that some COVID mobile vaccine clinics are held outdoors and may be canceled in rainy or stormy conditions. To learn more about pediatric vaccinations (ages 5-11), we invite you to visit the [employer] webpage. https://www.Artabase.org/pa ges/8815-Hhakw-Onunkoluaof-Freque nhrf-Iqyyq-Mptrpklms.html To learn more about the COVID-19 vaccine, we invite you to visit the CDC website for a list of frequently asked questions.https://www.cdc.gov/cor onavirus/2019-ncov/vaccines/faq.h tml [employer] Patient Portal Access Instructions: Stay connected with your healthcare team and access your personal medical information anytime with the [employer] Patient Portal. Please follow the directions below to create your [employer] account: 1.Access the email account you provided upon registration to the hospital/physician office.2.Look for an invitation email from [facility].3.Open the email and access the invitation link: Accept Invitation to [employer].4.Fill in the required allen to create your account. To access your account, visit [employer]. Click the blue button labeled Access Patient [...] you will allow to register on the [facility] Patient Portal for access to your information. You can also access the [facility] Patient Portal on the [facility] louisa. Simply click on Patient Portal and then log into your account. If you would like to receive a full copy of your medical records, please contact the [facility] Medical Records Department by calling [phone], Thursday through Thursday between 8 a.m. and [...] Call your local pharmacy or go to http://[email or web address] to find one close to you.3.Make use of household items: Use cat litter or old coffee grounds to dispose medications if other options are not available. Mix your drugs with these household products, seal them in an airtight container and throw it into the garbage. Call [facility]: [phone] to be sure your drugs can be [...] COPY. Signatures Patient Education Materials Influenza, Adult, Zvzb-lj-Ynvq Hypokalemia Hypomagnesemia Medication Leaflets My discharge plan and instructions have been reviewed and explained to me and I,JENNIFER YORK understand my current condition and have read and understand these discharge instructions. I have received a written copy of the plan/instructions. If I have questions, I am aware that I should contact my doctor. Patient/Timber Selector Signature: Date/Time: Relationship to Patient: ____ Witness Name/Signature: Date/Time: [facility] 10-12-2024 Nurse Progress note Patient was [...] Jessie Smith RN on 10/12/2024 10:21 PM [facility] 10-12-2024 Note Date of Service 10/12/24 [...] by TERESA HERNANDEZ on 10/12/2024 05:09 PM [facility] 10-11-2024 Note Date of Service 10/11/2024 [...] 10/08 from his assisted living facility, [facility]. Patient is an alcoholic with cirrhosis. EMS [...] saw today and recommended a skilled stay. workers compensation specialist is working on [employer] for skilled stay. As long as awake [...] - will likely need to go to [facility] for a while Time Spent 38 minutes spent reviewing past diagnostic tests, reviewing lab results, vital sign trends, medical history, reviewing medications and ordering home medications, examining patient, discussed plan of care with care team, collaborating with physician, and documenting in chart. Digitally Signed by CINDY BAILEY on 10/11/2024 01:57 PM Digitally Signed by CINDY BAILEY on 10/11/2024 07:24 PM [facility] 10-11-2024 Note . MICRO - Microbiology [...] Locations *1: This test was performed at: [facility], [address] [place] [address], [facility] , [facility] 10-10-2024 Note Exam Date Time Procedure Performing Provider Status 10/10/24 3:[address] Head or Brain w/o Contrast JENIFER ROGERS MD; Auth (Verified) [id number] ORIGINAL EXAMINATION: CT HEAD TECHNIQUE: Axial CT [...] 10/10/2024 4:34:44 PM Ordering Provider: CINDY BAILEY [facility]02-24-2025 clinic manager Note TC to patient's ex- to gather information/administer SDOH (as patient is experiencing confusion/is in isolation); LVM. Will continue to follow. Digitally Signed by Teresa Mccoy on 10/10/2024 02:14 PM [facility]02-24-2025 Note Date of Service 10/10/2024 Chief [...] by CINDY BAILEY on 10/10/2024 12:29 PM [facility]02-22-2025 Note Date of Service 10/08/2024 Chief [...] hypertension, hyperlipidemia, tremors, and anxiety, presented to [facility] emergency department with the chief complaint of confusion. Patient is a resident of [facility] and was noted by staff to have [...] Status: Employed. 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 Spouse Name: Veronica., 11/17/2022 Nutrition/Health Caffeine intake [...] PM Digitally Signed by JYOTI HE MD [facility]02-22-2025 Note* Exam Date Time Procedure Performing Provider Status 10/08/24 3:[address] Head or Brain w/o Contrast TE BADILLO MD; Auth (Verified) [id number] ORIGINAL EXAMINATION: CT OF THE HEAD WITHOUT [...] Sign Date: 10/08/2024 3:42:37 PM Ordering Provider: [facility]02-22-2025 Note* Exam Date Time Procedure Performing Provider Status 10/08/24 3:30 PM XR Chest 1 View AUGUSTIN PRADO MD; [facility] (Verified) [id number] ORIGINAL EXAMINATION: ONE XRAY VIEW OF THE [...] 10/08/2024 3:39:16 PM Ordering Provider: TONG PIZARRO [facility]02-22-2025 Note* Exam Date Time Procedure Performing Provider Status 10/08/24 2:28 PM EKG [ED AOH] - CV TONG PIZARRO DO; A uth (Verified) ECG Final Report Atrial fibrillation Repol abnrm suggests ischemia, diffuse leads Baseline wander in lead(s) I,III,aVL Compared to ECG at 05/15/2024 15:38:48 Electronic Signature: TONG PIZARRO DO 10/08/2024 15:54:12 [facility]02-22-2025 HCoV 229E RNA VIVIANE+non-probe Ql (Nph) Not Detected *NA* (10/08/24 2:27 PM)AH Auto Viro/Sero [id number] Evaluation + Plan noteExtracted from: Title:History and Physical Author:CINDY BAILEY APRN-AUTO APPRENTICE MECHANIC Date:10/08/24 1. Altered mental status Acute, new [...] collaborating with physician, and documenting in chart. [facility] 12-20-2024 Hospital Discharge instructions Patient Education [...] www.aa.org to find a local meeting place. Reframed.tv family groups offers support to families of alcohol users. Go to www.alTrippingn.org National [place] On Alcoholism And Drug Dependence at 607-487-5568 or www.ncadd.org Residential alcohol detox programs are [...] awaken Increasing upper abdominal pain Repeated vomiting [id number] [employer]. [address] [place] [address]. All rights reserved. This information is not [...] wet, you can dry it with a hairspring cutter. If nishi tape was put on and [...] or as directed by your healthcare provider 5942-8303 [employer]. [address] [place] [address], [place] [address]. All rights reserved. This information is not intended as a substitute for professional medical care. Always follow yourhealthcare professional's instructions. Follow Up Care 08/05/2024 16:26:54 With:JENNIFER VILLASEÑOR MD Address: [address] [place] [address]- When:2-4 days [facility] 12-20-2024 Note Discharge Instructions Thank you for allowing [facility] to assist you with your healthcare needs. The following is importantdischarge information regarding your hospital visit. Diagnosis from Today's Visit Alcohol withdrawal Finger fracture What to Do Next Instructions from Your Care Team No qualifying data available. Post Acute Orders No qualifying data available. You Need to Schedule the Following Appointments Follow Up with JENNIFER VILLASEÑOR MD When:Within 2-4 days Where:[place] [address]- Allergies NKA Medications Please ask [...] www.aa.org to find a local meeting place. Reframed.tv family groups offers support to families of alcohol users. Go to www.al-anon.org [employer] [place] On Alcoholism And Drug Dependence at 863-368-1144 or www.ncadd.org Residential alcohol detox programs are [...] awaken Increasing upper abdominal pain Repeated vomiting [id number] [employer]. [address] [place] [address]. All rights reserved. This information is not [...] wet, you can dry it with a hairspring cutter. If nishi tape was put on and [...] or as directed by your healthcare provider 7615-3227 [employer]. [address] [place] [address], [place] [address]. All rights reserved. This information is not intended as a substitute for professional medical care. Always follow yourhealthcare professional's instructions. Additional Information VACCINATE! IT SAVES LIVES! Members of the community who have not yet received the COVID-19 vaccine and would like to receive it can visit one of [facility] vaccine clinics. There are many vaccine clinic locations within the [facility]. For locations and available times, please visit www.gettheshot.coronavirus.[place].gov/. It is important to note that some COVID mobile vaccine clinics are held outdoors and may be canceled in rainy or stormy conditions. To learn more about pediatric vaccinations (ages 5-11), we invite you to visit the [employer] webpage. https://www.Hitmeisters.org/pages/8876-Xxowj-Btkrhbwkphx-Fcgbiatbot-Ottod-Gel stions.htmlTo learn more about the COVID-19 vaccine, we invite you to visit the CDC website for a list of frequently asked questions. https://www.cdc.gov/coronavirus/2019-ncov/vaccines/faq.html [facility] [employer] Patient Portal Access Instructions: Stay connected with your healthcare team and access your personal medical information anytime with the [employer] Patient Portal. If you would like a full copy of your medical records please contact the [facility] Medical Records Department Thursday through Thursday between 8a.m. and 4:30p.m. Please follow the directions below to access the portal: 1.Access the email account you provided upon registration to the [facility].2.Look for an invitation email from [facility].3.Open the email and access the invitation link: Accept Invitation to [employer] Corporation4.Fill in the required allen to create your account. Sign into www.KLab with your username and password that you [...] you will allow to register on the [employer] Patient Portal for access to your information. You can also access the [facility] Patient Portal on the [employer] louisa. Simply click on Health Records under appsplit and then click on the [employer] logo. HOW TO SAFELY DISPOSE OF PRESCRIPTION [...] Call your local pharmacy or go to [email or web address].Blue [email or web address] to find one close to you.3.Make use of household items: Use cat litter or old coffee grounds to dispose medications if other options arenot available. Mix your drugs with these household products, seal them in an airtight container andthrow it into the garbage. Call [facility]: [phone] to be sure your drugs can be [...] am aware that I should contactmy doctor. Patient/Timber Selector Signature: Date/Time: Relationship to Patient: Witness Name/Signature: Date/Time: [facility]12-20-2024 Note* Exam Date Time Procedure Performing Provider Status 08/05/24 5:11 PM XR Chest 1 View Auth (Ve rified) [id number] ORIGINAL EXAMINATION: ONE XRAY VIEW OF THE [...] 08/05/2024 5:21:45 PM Ordering Provider: EMILIE FIGUEROA [facility]10-10-2024 Hospital Discharge instructions Patient Education 05/26/2024 [...] Swelling, pain, or redness in one leg 4275-6286 [employer]. [address] [place] [address], [place] [address]. All rights reserved. This information is not intended as a substitute for professional medical care. Always follow yourhealthcare professional's instructions. Follow Up Care 05/26/2024 02:03:06 With:JENNIFER VILLASEÑOR MD Address: [address] [place] [id number]- When:2-4 days [facility] 10-10-2024 Emergency department Discharge summary Discharge Instructions [...] When:Within 2-4 days Where:[address] [facility] [place] [address]- Allergies NKA Medications Please ask [...] Swelling, pain, or redness in one leg 4405-8240 [employer]. [address] [place] [address], [place] [address]. All rights reserved. This information is not intended as a substitute for professional medical care. Always follow yourhealthcare professional's instructions. Additional Information VACCINATE! IT SAVES LIVES! Members of the community who have not yet received the COVID-19 vaccine and would like to receive it can visit one of [facility] vaccine clinics. There are many vaccine clinic locations within the [facility]. For locations and available times, please visit www.gettheshot.coronavirus.[place].gov/. It is important to note that some COVID mobile vaccine clinics are held outdoors and may be canceled in rainy or stormy conditions. To learn more about pediatric vaccinations (ages 5-11), we invite you to visit the [facility] webpage. https://www.Hitmeisters.org/pages/7549-Ovxyv-Linsrraqrbb-Ovbjrgssiv-Abjdx-Gir stions.htmlTo learn more about the COVID-19 vaccine, we invite you to visit the CDC website for a list of frequently asked questions. https://www.cdc.gov/coronavirus/2019-ncov/vaccines/faq.html [facility] [employer] Patient Portal Access Instructions: Stay connected with your healthcare team and access your personal medical information anytime with the [employer] Patient Portal. If you would like a full copy of your medical records please contact the [facility] Medical Records Department Thursday through Thursday between 8a.m. and 4:30p.m. Please follow the directions below to access the portal: 1.Access the email account you provided upon registration to the hospital.2.Look for an invitation email from [facility].3.Open the email and access the invitation link: Accept Invitation to [employer]4.Fill in the required allen to create your account. Sign into www.[email or web address] with your username and password that you [...] you will allow to register on the [employer] Patient Portal for access to your information. You can also access the [employer] Patient Portal on the F[employer] louisa. Simply click on Health Records under appsplit and then click on the [employer] logo. HOW TO SAFELY DISPOSE OF PRESCRIPTION [...] Call your local pharmacy or go to http://[facility].Blue [email or web address] to find one close to you.3.Make use of household items: Use cat litter or old coffee grounds to dispose medications if other options arenot available. Mix your drugs with these household products, seal them in an airtight container andthrow it into the garbage. Call [facility]: [phone] to be sure your drugs can be [...] am aware that I should contactmy doctor. Patient/Timber Selector Signature: Date/Time: Relationship to Patient: Witness Name/Signature: Date/Time: [id number] Note ORIGINAL EXAMINATION: ONE XRAY VIEW OF [...] Sign Date: 05/26/2024 2:51:00 AM Ordering Provider: [facility]10-01-2024 Pastoral care Progress note Pastoral Care Note Entered On: 05/17/2024 14:06 EDT Performed On: 05/17/2024 14:05 EDT by Wing Chavez [facility] Type of Pastoral Visit : Initial visit [...] by Wing Chavez on 05/17/2024 02:05 PM [id number] Hospital Discharge instructions Patient Education 05/17/2024 09:30:41 [...] says it is okay. General instructions Take uawb-fov-wscwqor and prescription medicines only as told by [...] 08/03/2006 Document Revised: 07/16/2018 Document Reviewed: 07/12/2018 [employer] Patient Education 2020 [employer]. Follow Up Care 05/15/2024 15:22:37 With:Kareem Lee, [facility], Address:Unknown When: Unknown Comments:[facility] With:SUZANNA CARPENTER Address: [address] [place] [phone] Business (1) When:1-2 days Comments:Steroid injections to be completed in IR department at [facility], [place], will call to schedule With:JENNIFER VILLASEÑOR MD Address: [address] [facility] [place] [address]- When:1-2 days Comments:Please call the office to schedule a hospital follow-up appointment. [facility] 10-01-2024 Discharge summary Date of Service 05/17/2024 Discharge Diagnosis Alcohol abuse (F10.10 - ICD-10-CM) Alcoholism (F10.20 - ICD-10-CM) Fall ([id number] - PNED) CHECO (generalized anxiety disorder) (F41.1 [...] completed in the interventional radiology department of [facility]. The department will reach out to your [...] by MECCA RODRÍGUEZ on 05/17/2024 08:54 AM [facility] [id number] Note Discharge Instructions Thank you for allowing [facility] to assist you with your healthcare needs. [...] completed in the interventional radiology department of [facility]. The department will reach out to your regarding the scheduling of your injections. Follow Up Appointments Follow Up with SUZANNA CARPENTER When:Within 1-2 days [facility] [facility] [address] [facility] [place] [phone] [facility] (1) Additional Information: Steroid injections to be completed in IR department at [facility] [place], will call to schedule Follow Up with JENNIFER VILLASEÑOR MD When:Within 1-2 days Where:[address] [place] [address]- Additional Information: Please call the office to [...] Rib fractures Duration: 5 Days Pickup at [facility]/pharmacy #[id number] New ibuprofen (Motrin) 400 Milligram by mouth [...] by mouth Daily at bedtime Pharmacy Information [facility]/pharmacy #[id number]: [address], [place] [phone] Please take this list to your next [...] may report side effects to FDA at 1-312-GDH-0818. What other drugs will affect acetaminophen and [...] affect acetaminophen and oxycodone, including prescription and fgic-rii-ogwlors medicines, vitamins, and herbal products. Not all [...] to ensure that the information provided by [employer]. ('[employer]') is accurate, up-to-date, and complete, but no guarantee is made to that effect. Drug information contained herein may be time sensitive. [employer] information has been compiled for use by healthcare practitioners and consumers in the [place] and therefore [employer] does not warrant that uses outside of the [place] are appropriate, unless specifically indicated otherwise. [employer] drug information does not endorse drugs, diagnose patients or recommend therapy. [employer] drug information isan informational resource designed to [...] effective or appropriate for any given patient. [employer] does not assume any responsibility for any aspect of healthcare administered with the aid of information [employer] provides. The information contained herein is not intended to cover all possible uses, directions, precautions, warnings, drug interactions, allergic reactions, or adverse effects. If you have questions about the drugs you are taking, check with your doctor, nurse or pharmacist. Copyright 9297-1240 [employer]. Version: 22.. Revision Date: 03/19/2023. Education Materials [...] says it is okay. General instructions Take msdl-cfz-nkfjufn and prescription medicines only as told by [...] 08/03/2006 Document Revised: 07/16/2018 Document Reviewed: 07/12/2018 [employer] Patient Education 2020 [employer]. Additional Information VACCINATE! IT SAVES LIVES! Members of the community who have not yet received the COVID-19 vaccine and would like to receive it can visit one of [facility] vaccine clinics. There are many vaccine clinic locations within the [facility]. For locations and available times, please visit https://gettheshot.coronavirus.[place].gov/. It is important to note that some COVID mobile vaccine clinics are held outdoors and may be canceled in rainy or stormy conditions. To learn more about pediatric vaccinations (ages 5-11), we invite you to visit the [facility] webpage. https://www.[facility].org/pages/9211-Mrdof-Xffjlfwptxa-Vbxqmhyvkm-Lgxcr-Qsd stions.htmlTo learn more about the COVID-19 vaccine, we invite you to visit the CDC website for a list of frequently asked questions.https://www.cdc.gov/coronavirus/2019-ncov/vaccines/faq.html [employer] Patient Portal Access Instructions: Stay connected with your healthcare team and access your personal medical information anytime with the [employer] Patient Portal. Please follow the directions below to create your [employer] account: 1.Access the email account you provided upon registration to the hospital/physician office.2.Look for an invitation email from [facility].3.Open the email and access the invitation link: AcceptInvitation to [employer].4.Fill in the required allen to create your account. To access your account, visit KLab/Tr[employer] InternationalOneChart. Click the blue button labeled Access Patient [...] who you will allowto register on the [facility] Patient Portal for access to your information. You can also access the [facility] on the [facility] louisa. Simply click on Patient Portal and then log into your account. If you would like to receive a full copy of your medical records, please contact the [facility] Medical Records Department by calling [phone], Thursday through Thursday between 8 a.m. and [...] Call your local pharmacy or go to http://[facility].Blue [email or web address] to find one close to you.3.Make use of household items: Use cat litter or old coffee grounds to dispose medications if other options arenot available. Mix your drugs with these household products, seal them in an airtight container andthrow it into the garbage. Call [facility]: [phone] to be sure your drugs can be [...] am aware that I should contactmy doctor. Patient/Timber Selector Signature: Date/Time: Relationship to Patient: Witness Name/Signature: Date/Time: [facility] Rehabilitation[facility]eidtikv06-85-1210 Discharge summary Date of Service 05/17/2024 Discharge Diagnosis Alcohol abuse (F10.10 - ICD-10-CM) Alcoholism (F10.20 - ICD-10-CM) Fall ([id number] - PNED) CHECO (generalized anxiety disorder) (F41.1 [...] completed in the interventional radiology department of [facility]. The department will reach out to your [...] by MECCA RODRÍGUEZ on 05/17/2024 08:54 AM [facility] RehabilitationZudforno66-86-9416 [facility] Hospital Progress note Date of Service [...] small right-sided pneumothorax, right 8-12th fractures, and D8aweqkxrrbn processes fractures of the right. Overall the [...] by FLAQUITA BORJAS on 05/16/2024 07:43 AM [facility] RehabilitationXpoecxkx03-99-7348 Neurological surgery Consult note Date of Service [...] male who suffered a mechanical fall at [facility], landing on his right side. Subsequently presented [...] Status: Employed. 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 Spouse [...] by BALJIT WILSON on 05/16/2024 08:50 AM [facility] R[id number] Neurological surgery Consult note Date of Service [...] male who suffered a mechanical fall at [facility], landing on his right side. Subsequently presented [...] Status: Employed. 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 Spouse [...] by BALJIT WILSON on 05/16/2024 08:50 AM [facility] RehabilitationJlssorio84-87-9097 Surgery Hospital Progress note Date of Service [...] small right-sided pneumothorax, right 8-12th fractures, and K5zglnktzgkp processes fractures of the right. Overall the [...] by FLAQUITA BORJAS on 05/16/2024 07:43 AM [facility] RehabilitationBqcgoywa34-73-2849 Note ORIGINAL EXAMINATION: ONE XRAY VIEW OF [...] Sign Date: 05/16/2024 6:34:24 AM Ordering Provider: [facility]09-29-2024 History and physical note Date of Service [...] Status: Employed. 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 Spouse [...] JANET SOSA MD on 05/15/2024 07:00 PM [facility] R[id number] NoteSINUS RHYTHM Electronic Signature: NATHANIEL CARUSO DO 05/15/2024 15:41:07[facility] 09-29-2024 Note ORIGINAL EXAMINATION: ONE XRAY VIEW [...] Date: 05/15/2024 3:44:23 PM Ordering Provider: NATHANIEL [facility]09-29-2024 Evaluation + Plan noteExtracted from: Title:History and [...] Scheduled Tests Radiology* IR Facet Injection 05/16/24 [facility] 09-29-2024 Note ADDENDUM ADDENDUM: Findings discussed with [...] 3.8 cm. Enlarged prostate. Interpreted by: Jammie Myoa Preliminary Report By: Jammie Moya Electronically signed By Jammie Moya Dictated Date: 05/15/2024 1:03:15 PM Prelim Date: 05/15/2024 1:23:26 PM Sign Date: 05/15/2024 1:23:26 PM Ordering Provider[facility] Note ADDENDUM ADDENDUM: Findings discussed with [...] Date: 05/15/2024 1:23:26 PM Ordering Provider: ALEXANDRA [facility]08-13-2024 Hospital Discharge instructions Patient Education 03/29/2024 21:30:05 [...] you: Duties at home or with child life specialist suffer because of drinking. Duties at work [...] Sleep problems Seizures These changes may be intermediate manager (permanent). Heart and blood vessels Alcohol can [...] Alcohol and Substance Abuse Information Center (NASAIC). 635.994.8068, www.addictioncareoptions.com National [place] on Alcoholism and Drug Dependence (NCADD). 371-LXM-NTKG (070-366-2313), www.ncadd.org Call 911 Call 911 if any [...] or black or tarry stools Severe shakiness 1995-1847 [employer]. [address] [place] [address], [place] [address]. All rights reserved. This information is not intended as a substitute for professional medical care. Always follow yourhealthcare professional's instructions. Follow Up Care 03/29/2024 17:20:11 With:JENNIFER VILLASEÑOR MD Address: [address] [place], [place] [address]- When:2-4 days [facility] 08-13-2024 Emergency department Discharge summary Discharge Instructions [...] When:Within 2-4 days Where:[address] [place] [address]- Allergies NKA Medications Please ask [...] you: Duties at home or with child life specialist suffer because of drinking. Duties at work [...] Sleep problems Seizures These changes may be half-way (permanent). Heart and blood vessels Alcohol can [...] Alcohol and Substance Abuse Information Center (NASAIC). 336.218.4873, www.addictioncareoptions.com National [place] on Alcoholism and Drug Dependence (NCADD). 998-EBZ-HFQC (710-720-7688), www.ncadd.org Call 911 Call 911 if any [...] or black or tarry stools Severe shakiness 5827-3025 [employer]. [address] [place] [address], [place] [address]. All rights reserved. This information is not intended as a substitute for professional medical care. Always follow yourhealthcare professional's instructions. Additional Information VACCINATE! IT SAVES LIVES! Members of the community who have not yet received the COVID-19 vaccine and would like to receive it can visit one of [facility] vaccine clinics. There are many vaccine clinic locations within the [facility]. For locations and available times, please visit www.gettheshot.coronavirus.[place].gov/. It is important to note that some COVID mobile vaccine clinics are held outdoors and may be canceled in rainy or stormy conditions. To learn more about pediatric vaccinations (ages 5-11), we invite you to visit the [facility] webpage. https://www.[facility].org/pages/7733-Rlgjo-Veqlrjtiqys-Dfmbkhvlay-Xueus-Qxi stions.htmlTo learn more about the COVID-19 vaccine, we invite you to visit the CDC website for a list of frequently asked questions. https://www.cdc.gov/coronavirus/2019-ncov/vaccines/faq.html [employer] Patient Portal Access Instructions: Stay connected with your healthcare team and access your personal medical information anytime with the [employer] Patient Portal. If you would like a full copy of your medical records please contact the [facility] Medical Records Department Thursday through Thursday between 8a.m. and 4:30p.m. Please follow the directions below to access the portal: 1.Access the email account you provided upon registration to the hospital.2.Look for an invitation email from [facility].3.Open the email and access the invitation link: Accept Invitation to [employer]4.Fill in the required allen to create your account. Sign into [email or web address] with your username and password that you [...] you will allow to register on the [employer] Patient Portal for access to your information. You can also access the [employer] Patient Portal on the Fotofeedback louisa. Simply click on Health Records under appsplit and then click on the [facility] logo. [...] Call your local pharmacy or go to http://[facility].Blue Box/[email or web address] to find one close to you.3.Make use of household items: Use cat litter or old coffee grounds to dispose medications if other options arenot available. Mix your drugs with these household products, seal them in an airtight container andthrow it into the garbage. Call [facility]: [phone] to be sure your drugs can be [...] am aware that I should contactmy doctor. Patient/Timber Selector Signature: Date/Time: Relationship to Patient: Witness Name/Signature: Date/Time: [facility] Pnzyrhqs38-46-1348 Emergency department Discharge summary Discharge Instructions Thank [...] 2-4 days Where:[address] [facility] [place] [address]- Allergies NKA Medications Please ask your primary doctor or pharmacist before taking any other medication not listed, including over the counter drugs, herbal medications, vitamins and or supplements as they may interact [facility] medications. What How Much When Why [...] you: Duties at home or with child life specialist suffer because of drinking. Duties at work [...] Sleep problems Seizures These changes may be intermediate manager (permanent). Heart and blood vessels Alcohol can [...] Alcohol and Substance Abuse Information Center (NASAIC). 673.958.7560, www.addictioncareoptions.com National [place] on Alcoholism and Drug Dependence (NCADD). 197-LOE-AWDS (124-266-1537), www.ncadd.org Call 911 Call 911 if any [...] or black or tarry stools Severe shakiness 7222-6226 [employer]. [address] [place] [address]. All rights reserved. This information is not intended as a substitute for professional medical care. Always follow yourhealthcare professional's instructions. Additional Information VACCINATE! IT SAVES LIVES! Members of the community who have not yet received the COVID-19 vaccine and would like to receive it can visit one of [facility] vaccine clinics. There are many vaccine clinic locations within the [facility]. For locations and available times, please visit www.gettheshot.coronavirus.[place].gov/. It is important to note that some COVID mobile vaccine clinics are held outdoors and may be canceled in rainy or stormy conditions. To learn more about pediatric vaccinations (ages 5-11), we invite you to visit the [facility] webpage. https://www.akronPOLYBONAs.org/pages/2647-Ppwcr-Mgbkcocbtmo-Rgtrzbeijk-Hiujv-Xca stions.htmlTo learn more about the COVID-19 vaccine, we invite you to visit the CDC website for a list of frequently asked questions. https://www.cdc.gov/coronavirus/2019-ncov/vaccines/faq.html [employer] Patient Portal Access Instructions: Stay connected with your healthcare team and access your personal medical information anytime with the [employer] Patient Portal. If you would like a full copy of your medical records please contact the [facility] Medical Records Department Thursday through Thursday between 8a.m. and 4:30p.m. Please follow the directions below to access the portal: 1.Access the email account you provided upon registration to the [facility].2.Look for an invitation email from [facility].3.Open the email and access the invitation link: Accept Invitation to [employer]4.Fill in the required allen to create your account. Sign into [email or web address] with your username and password that you [...] you will allow to register on the [employer] Patient Portal for access to your information. You can also access the [employer] Patient Portal on the F[employer]feedback louisa. Simply click on Health Records under appsplit and then click on the [employer] logo. HOW TO SAFELY DISPOSE OF PRESCRIPTION [...] Call your local pharmacy or go to http://[facility].Blue Box/6U4Te4n to find one close to you.3.Make use of household items: Use cat litter or old coffee grounds to dispose medications if other options arenot available. Mix your drugs with these household products, seal them in an airtight container andthrow it into the garbage. [facility] Hospital: [phone] to be sure your drugs can be [...] am aware that I should contactmy doctor. Patient/Timber Selector Signature: Date/Time: Relationship to Patient: Witness Name/Signature: Date/Time: [id number] DEPRESSION, LATERAL LEADS PROLONGED QT INTERVAL Electronic Signature: MECCA SALEEM MD 03/29/2024 20:14:[address] [place] [address] 06-29-2024 Note ORIGINAL EXAMINATION: TWO XRAY VIEWS [...] Sign Date: 02/14/2024 1:50:18 AM Ordering Provider: [facility]05-10-2024 Discharge summary Author Papo Rodriguez [facility] December 25, 2023 10:23am Note Date/Time December 25, 2023 10:23 am [facility] Medical Records Department [address] [place] [address] Discharge Summary 12/25/23 1021 MR#: [id number] Acct: [id number] Name: JENNIFER YORK Rep #:[id number] : 1960 63 From: Papo Rodriguez DO PCP: Dr. Jennifer Villaseñor MD Status:ADM IN Location: [place] [address] Providers Date of Admission: 12/19/23 Primary Care [...] % (Auto) 57.5, Lymph % (Auto) 25.0, Runnels % (Auto) 14.0 H, Eos % (Auto) [...] in before D/C Order can be placed): [facility] Facility Charges/Coding Visit Charges Inpatient E&M: 32541 Disch Hosp >30min 12/25/23 1023 <Electronically signed by Papo Rodriguez DO> Cosigner Signature (if applicable): CC: Dr. Papo Rodriguez DO; Dr. Jennifer Villaseñor MD~ Signed [facility] Work Phone: 1(380) 393-371805-10-2024 Discharge summary Author Papo [facility] December 25, 2023 10:21am Note Date/Time December 25, 2023 10:18 am [facility] Medical Records Department [address] [place] [address] Transfer to [facility] MR#: [id number] Acct: [id number] Name: JENNIFER YORK Rep #:[id number] : 1960 63 From: Papo Rodriguez DO PCP: Dr. Jennifer Villaseñor MD Status:ADM IN Certification of patient admission REQUIRED AT TIME OF ADMISSION. I CERTIFY THAT POST-HOSPITAL F SERVICES ARE REQUIRED TO BE GIVEN ON AN IN-PATIENT BASIS BECAUSE OF THE ABOVE NAMED PATIENT'S NEED FOR USP CARE ON A CONTINUING BASIS FOR THE CONDITION(S) FOR WHICH HE/SHE WAS RECEIVING IN-PATIENT HOSPITAL SERVICES PRIOR TO HIS/HER TRANSFER TO THE [facility]. 12/25/23 1021<Electronically signed by Papo Rodriguez DO> [...] in before D/C Order can be placed): [facility] Facility (1) Alcohol withdrawal Qualifiers: Complication of substance-induced condition: with delirium Qualified Code(s):F10.931 - Alcohol use, unspecified with withdrawal delirium 12/25/23 1021 <Electronically signed by Papo Rodriguez DO> Cosigner Signature (if applicable): CC: Dr. Taylor Kaur MD; Dr. Janet Erazo MD; Dr. Jennifer Villaseñor MD ~ [facility] Work Phone: 1(785) 586-218305-09-2024 Progress note Author Papo Rodriguez [facility] December 24, 2023 9:19am Note Date/Time December 24, 2023 9:20am [facility] Medical Records Department [address] [place] [address] Progress Note - Hospitalist 12/24/23911 MR#: [id number] Acct: [id number] Name: JENNIFER YORK Rep #:[id number] : 1960 63 From: Papo Rodriguez DO PCP: Dr. Jennifer Villaseñor MD Status:ADM IN Location: [facility] NK562-8 Reason for Visit Reason for Visit: Diagnoses [...] Bilateral SCDs Charges/Coding Visit Charges Inpatient E&M: 61686 Subs Hosp L2 12/24/23918 <Electronically signed by Papo Rodriguez DO> Cosigner Signature (if applicable): CC: ~ Signed [facility] Work Phone: 1(877) 160-777205-08-2024 Progress note Author Papo Rodriguez [facility] December 23, 2023 2:53pm Note Date/Time December 23, 2023 7:50am [facility] Medical Records Department [address] [place] [address] Progress Note - Hospitalist 12/23/23 0747 MR#: [id number] Acct: [id number] Name: MATTEOJENNIFER PHELPS Rep #:[id number] : 1960 63 From: Papo Rodriguez DO PCP: Dr. Jennifer Villaseñor MD Status:ADM IN Location: [place] KL162-2 Reason for Visit Reason for Visit: Diagnoses [...] Bilateral SCDs Charges/Coding Visit Charges Inpatient E&M: 14433 Subs Hosp L2 12/23/23 9031 <Electronically signed by Papo Rodriguez DO> Cosigner Signature (if applicable): CC: ~ Signed [facility] Work Phone: 1(882) 655-957105-07-2024 Progress note Author Papo Rodriguez [facility] December 22, 2023 3:14pm Note Date/Time December 22, 2023 7:59am [facility] Medical Records Department [address] [place] [address] Progress Note - Hospitalist 12/22/23 0752 MR#: [id number] Acct: [id number] Name: JENNIFER YORK Rep #:[id number] : 1960 63 From: Papo Rodriguez DO PCP: Dr. Jennifer Villaseñor MD Status:ADM [facility] Reason for Visit Reason for Visit: Diagnoses [...] 1650 650 / 650 Balance -1300 / -5516 720.1058 / 640.8333 Lab / Micro Data 12/22/23 [...] % (Auto) 60.4, Lymph % (Auto) 25.2, Runnels % (Auto) 12.0 H, Eos % (Auto) [...] Bilateral SCDs Charges/Coding Visit Charges Inpatient E&M: 29178 Subs Hosp L2 12/22/23 4154 <Electronically signed by Papo Rodriguez DO> Cosigner Signature (if applicable): CC: ~ Signed [facility] Work Phone: 1(861) 631-141205-06-2024 Progress note Author Papo Rodriguez [facility] December 21, 2023 12:43pm Note Date/Time December 21, 2023 7:49am [facility] Medical Records Department [address] [place] [address] Progress Note - Hospitalist 12/21/23 0744 MR#: [id number] Acct: [id number] Name: MATTEOJENNIFER PHELPS Rep #:[id number] : 1960 63 From: Papo Rodriguez DO PCP: Dr. Jennifer Villaseñor MD Status:ADM IN Location: [place] ID081-5 Reason for Visit Reason for Visit: Diagnoses [...] % (Auto) 62.9, Lymph % (Auto) 23.2, Runnels % (Auto) 10.7 H, Eos % (Auto) [...] Bilateral SCDs Charges/Coding Visit Charges Inpatient E&M: 31283 Subs Hosp L2 12/21/23 2702 <Electronically signed by Papo Rodriguez DO> Cosigner Signature (if applicable): CC: ~ Signed [facility] Work Phone: 1(615) 777-526805-05-2024 Progress note Author Janet Erazo [facility] December 20, 2023 9:13am Note Date/Time December 20, 2023 7:36am [facility] Medical Records Department [address] [place] [address] Progress Note - Hospitalist 12/20/23 0736 MR#: [id number] Acct: [id number] Name: JENNIFER YORK Rep #:[id number] : 1960 63 From: Janet Erazo MD PCP: Dr. Jennifer Villaseñor MD Status:ADM IN Location: [place] XX784-6 Reason for Visit Reason for Visit: Diagnoses [...] Neut % (Auto) 67.4, Lymph % (Auto)19.4, Runnels % (Auto) 11.1 H, Eos % (Auto) [...] placed on thiamine andfolic acidConsultation placed to [facility] counseling services ? 12/20/2023 patient [...] 52 Minutes Charges/Coding Visit Charges Inpatient E&M: 64558 Subs Hosp L3 12/20/23 0913 <Electronically signed by Janet Eraoz MD> Cosigner Signature (if applicable): CC: ~ Signed [facility] Work Phone: 1(502) 395-466405-04-2024 Progress note Author Janet Erazo [facility] December 19, 2023 9:51am Note Date/Time December 19, 2023 7:23am [facility] Medical Records Department [address] [place] [address] Progress Note - Hospitalist 12/19/23 0718 MR#: [id number] Acct: [id number] Name: JENNIFER YORK Rep #:[id number] : 1960 63 From: Janet Erazo MD PCP: Dr. Jennifer Villaseñor MD Status:ADM IN Location: [place] LM460-3 Reason for Visit Reason for Visit: Diagnoses [...] 76.9 H, Lymph % (Auto) 9.5 L, Runnels % (Auto) 12.5 H, Eos % (Auto) [...] Clarity Clear, Urine pH 6.0, Ur Specific Urania 1.020, Urine Protein 500 H, Urine Glucose [...] 72.1 H, Lymph % (Auto) 17.9 L, Runnels % (Auto) 8.0, Eos % (Auto) 0.0, [...] placed on thiamine andfolic acidConsultation placed to [facility] counseling services 3. Hypokalemia ? [...] 50 Minutes Charges/Coding Visit Charges Inpatient E&M: 86544 Subs Hosp L3 12/19/23 0927 <Electronically signed by Janet Erazo MD> Cosigner Signature (if applicable): CC: ~ Signed [facility] Work Phone: 1(367) 711-435605-04-2024 History and physical note Author Taylor White [facility] December 19, 2023 1:12am Note Date/Time December 19, 2023 12:47a m [facility] Medical Records Department [address] [place] [address] H&P Exam - Hospitalist 12/19/23 0043 MR#: [id number] Acct: [id number] Name: JENNIFER YORK Rep #:[id number] : 1960 63 From: Taylor Kaur MD PCP: Dr. Jennifer Villaseñor MD Status:REG ER Location: ED HPI - General General Date of Admission: 12/19/23 Date of Service: 12/19/23 Chief Complaint: Confusion. HPI Narrative The patient is a 63 y/o M w/ PMHx: Chronic thrombocytopenia, HTN, Tobacco use, EtOH abuse, Anxiety and Depression, Chronic neck pain with DDD who presents to the [facility] ED on 12/18/23 noted to have [...] 76.9 H, Lymph % (Auto) 9.5 L, Runnels % (Auto) 12.5 H, Eos % (Auto) [...] Clarity Clear, Urine pH 6.0, Ur Specific Urania 1.020, Urine Protein 500 H, Urine Glucose [...] pain with DDD who presents to the [facility] ED on 12/18/23 noted to have [...] anemia, unclear exact chronicity: Admission hemoglobin 10.3, LGN835.6, baseline hemoglobin unknown is no recent comparisons [...] Full Code. Charges/Coding Visit Charges Inpatient E&M: 79630 Init Hosp L3 12/19/23 0112 <Electronically signed by Taylor Kaur MD> Cosigner Signature (if applicable): CC: Dr. Taylor Kaur MD; Dr. Jennifer Villaseñor MD~ Signed [facility] Work Phone: 1(252) 775-659505-04-2024 Discharge summary Author Brendan Amadeo [facility] December 19, 2023 1:00am Note Date/Time December 18, 2023 10:18p m [facility] Medical Records Department [address] [place] [address] Emergency Department Summary 12/18/23 MR#: [id number] Acct: [id number] Name: JENNIFER YORK Rep #:[id number] : 1960 63 From: Brendan Ham PCP: [...] others: EMS Consults: internal medicine (Dr. Kaur) [facility] Narrative: Patient was initially tachycardic, febrile, [...] to floor This note was generated with Ometrics dictation software. It may contain incorrect words, [...] 76.9 H Lymph % (Auto) 9.5 L Runnels % (Auto) 12.5 H Eos % (Auto) [...] Clarity Clear Urine pH 6.0 Ur Specific Urania 1.020 Urine Protein 500 H Urine Glucose [...] your Primary Care Provider. Call [facility] ([phone]) or report to the closest Emergency Room. Call 911 if necessary. 12/19/23 0100 <Electronically signed by Brendan Childs DO> Cosigner Signature (if applicable): CC: Dr. Jennifer Villaseñor MD ~ Signed [facility] Work Phone: 1(343) 351-599305-04-2024 Discharge summary Author Brendan Childs [facility] December 19, 2023 1:00am Note Date/Time December 18, 2023 10:18p m [facility] Medical Records Department [address] [place] [address] Emergency Department Summary 12/18/23 MR#: [id number] Acct: [id number] Name: JENNIFER YORK Rep #:[id number] : 1960 63 From: Brendan Ham PCP: [...] Oxygen Delivery Method Room Air Room Air [facility] Narrative Medical decision making narrative: HISTORY OF [...] others: EMS Consults: internal medicine (Dr. Kaur) [facility] Narrative: Patient was initially tachycardic, febrile, [...] to floor This note was generated with Ometrics dictation software. It may contain incorrect words, [...] 76.9 H Lymph % (Auto) 9.5 L Runnels % (Auto) 12.5 H Eos % (Auto) [...] Clarity Clear Urine pH 6.0 Ur Specific Urania 1.020 Urine Protein 500 H Urine Glucose [...] your Primary Care Provider. Call [facility] ([phone]) or report to the closest Emergency Room. Call 911 if necessary. 12/19/23 0100 <Electronically signed by Brendan Childs DO> Cosigner Signature (if applicable): CC: Dr. Jennifer Villaseñor MD ~ Signed [facility] Work Phone: 1(207) 889-892203-18-2024 Hospital Discharge instructions Patient Education 11/01/2023 22:25:04 [...] www.aa.org. Raeann gives support to families. Call [phone], or go to www.al-anon.org. National [place] on Alcoholism and Drug Dependence (NCADD) has helpful resources. NCADD can be reached at [phone] and www.ncadd.org. Call 911 Call 911 if [...] upper belly that gets worse Repeated vomiting 0904-9954 [employer]. [address] [place], [place] [address]. All rights reserved. This information is not [...] in vomit, stools (black or red color) 1551-4928 [employer]. [address] [place] [address]. All rights reserved. This information is not intended as a substitute for professional medical care. Always follow yourhealthcare professional's instructions. [facility] 03-17-2024 Note Discharge Instructions Thank you for allowing [facility] to assist you with your healthcare needs. [...] www.aa.org. [employer]aeann gives support to families. Call [phone], or go to www.al-anon.org. [employer] [place] on Alcoholism and Drug Dependence (NCADD) has helpful resources. NCADD can be reached at 063-387-4589 and www.ncadd.org. Call 911 Call 911 if [...] upper belly that gets worse Repeated vomiting 1630-5577 [employer]. [address] [place] [address]. All rights reserved. This information is not [...] in vomit, stools (black or red color) 7086-4149 [employer]. [address] [place] [address]. All rights reserved. This information is not intended as a substitute for professional medical care. Always follow yourhealthcare professional's instructions. Additional Information VACCINATE! IT SAVES LIVES! Members of the community who have not yet received the COVID-19 vaccine and would like to receive it can visit one of [facility] vaccine clinics. There are many vaccine clinic locations within the [facility]. For locations and available times, please visit www.gettheshot.coronavirus.[place].gov/. It is important to note that some COVID mobile vaccine clinics are held outdoors and may be canceled in rainy or stormy conditions. To learn more about pediatric vaccinations (ages 5-11), we invite you to visit the [facility] webpage. https://www.[facility].org/pages/7233-Dfxzx-Nljmvsqhocn-Ofcxkconoj-Pyxam-Pek stions.htmlTo learn more about the COVID-19 vaccine, we invite you to visit the CDC website for a list of frequently asked questions. https://www.cdc.gov/coronavirus/2019-ncov/vaccines/faq.html [facility] [employer] Patient Portal Access Instructions: Stay connected with your healthcare team and access your personal medical information anytime with the [employer] Patient Portal. If you would like a full copy of your medical records please contact the [facility] Medical Records Department Thursday through Thursday between 8a.m. and 4:30p.m. Please follow the directions below to access the portal: 1.Access the email account you provided upon registration to the [facility].2.Look for an invitation email from [facility].3.Open the email and access the invitation link: Accept Invitation to [facility]4.Fill in the required allen to create your [...] you will allow to register on the [facility] [employer] Patient Portal for access to your information. You can also access the [facility] [employer] Patient Portal on the [employer] louisa. Simply click on Health Records under appsplit and then click on the [employer] logo. [...] Call your local pharmacy or go to http://[facility].Blue Box/7R6Zv7w to find one close to you.3.Make use of household items: Use cat litter or old coffee grounds to dispose medications if other options arenot available. Mix your drugs with these household products, seal them in an airtight container andthrow it into the garbage. Call [facility]: [phone] to be sure your drugs can be [...] am aware that I should contactmy doctor. Patient/Timber Selector Signature: Date/Time: Relationship to Patient: Witness Name/Signature: Date/Time: [facility]03-17-2024 Note ORIGINAL EXAMINATION: CT OF THE [...] Sign Date: 11/01/2023 8:34:45 PM Ordering Provider: [facility]03-17-2024 Note ORIGINAL EXAMINATION: CT OF THE [...] Date: 11/01/2023 8:44:13 PM Ordering Provider: WANDY [facility]03-17-2024 Note ORIGINAL EXAMINATION: ONE XRAY VIEW OF [...] Date: 11/01/2023 8:24:57 PM Ordering Provider[facility] Note ORIGINAL EXAMINATION: ONE XRAY VIEW [...] Date: 11/01/2023 8:24:05 PM Ordering Provider: WANDY [facility]03-17-2024 NoteSinus tachycardia Multiform ventricular premature complexes Borderline intraventricular conduction delay Abnormal R-wave progression, early transition Minimal ST depression, anterolateral leads Prolonged QT interval Electronic Signature: NATHANIEL CARUSO DO 11/01/2023 19:27:[address] [place] [address] 03-17-2024 Evaluation + Plan note Diagnostic Tests Pending * Urine Drug Screen (AO/AM Only) 11/01/23 Future Scheduled Tests Radiology* XR Spine Lumbar W/Obliques 4 Views 01/13/23 [facility] 01-31-2024 Note ORIGINAL EXAMINATION: CT OF [...] Sign Date: 09/16/2023 2:33:00 PM Ordering Provider: JENNFIER [facility]12-02-2023 Hospital Discharge instructions Patient Education 07/18/2023 [...] shoulder or upper arm Fever or chills [phone] [employer]. [address] [place] [address]. All rights reserved. This information is not [...] shoulder or upper arm Fever or chills 3198-5790 [employer]. [address] [place] [address], [place] [address]. All rights reserved. This information is not intended as a substitute for professional medical care. Always follow yourhealthcare professional's instructions. [facility] Up [facility] 07/18/2023 09:44:39 With:JENNIFER VILLASEÑOR MD Address: [address] [address] [facility] [place], [place] [address]- When:2-4 days [facility] 12-02-2023 Note Discharge Instructions Thank you [...] 2-4 days Where: [address] [place] [address]- Allergies NKA Medications Please ask [...] shoulder or upper arm Fever or chills 3987-7812 [employer]. [address] [place] [address], [place] [address]. All rights reserved. This information is not [...] shoulder or upper arm Fever or chills 0966-2312 [employer]. [address] [place] [address], [place] [address]. All rights reserved. This information is not intended as a substitute for professional medical care. Always follow yourhealthcare professional's instructions. Additional Information VACCINATE! IT SAVES LIVES! Members of the community who have not yet received the COVID-19 vaccine and would like to receive it can visit one of [facility] vaccine clinics. There are many vaccine clinic locations within the [facility]. For locations and available times, please visit www.gettheshot.coronavirus.[place].gov/. It is important to note that some COVID mobile vaccine clinics are held outdoors and may be canceled in rainy or stormy conditions. To learn more about pediatric vaccinations (ages 5-11), we invite you to visit the [facility] webpage. https://www.[employer].org/pages/8280-Cevmn-Amhnfzkgwbb-Wqvqfnbzbv-Afscx-Nyj stions.htmlTo learn more about the COVID-19 vaccine, we invite you to visit the CDC website for a list of frequently asked questions. https://www.cdc.gov/coronavirus/2019-ncov/vaccines/faq.html [facility] [employer] Patient Portal Access Instructions: Stay connected with your healthcare team and access your personal medical information anytime with the [employer] Patient Portal. If you would like a full copy of your medical records please contact the [facility] Medical Records Department Thursday through Thursday between 8a.m. and 4:30p.m. Please follow the directions below to access the portal: 1.Access the email account you provided upon registration to the hospital.2.Look for an invitation email from [facility].3.Open the email and access the invitation link: Accept Invitation to [employer]4.Fill in the required allen to create your account. Sign into [email or web address] with your username and password that you [...] you will allow to register on the [employer] Patient Portal for access to your information. You can also access the [facility] Patient Portal on the [employer]. Simply click on Health Records under HealthData [...] Call your local pharmacy or go to http://[employer] [facility].Blue Box/5T5Er4i to find one close to you.3.Make use of household items: Use cat litter or old coffee grounds to dispose medications if other options arenot available. Mix your drugs with these household products, seal them in an airtight container andthrow it into the garbage. Call [facility]: [phone] to be sure your drugs can be [...] am aware that I should contactmy doctor. Patient/Timber Selector Signature: Date/Time: Relationship to Patient: Witness Name/Signature: Date/Time: [facility]12-02-2023 Note ORIGINAL EXAMINATION: 3 XRAY VIEWS [...] Date: 07/18/2023 11:13:46 AM [facility] Discharge instructions Patient Education [...] nausea before eating solid foods. Only take aeer-gpc-ctmlorc or prescription medicines for pain, discomfort, or [...] Document Reviewed: 05/24/2014 ExitCare Patient Information 2015 [employer]. This information is not intended to replace [...] This will gradually bring back your r pirv-bp-rrfrzi and shoulder strength. It will also lower [...] for a longer time may limit your vbsyc-yi-sajhyl at the shoulder joint. If you have [...] blue, numb or tingly Fever or chills 0402-8798 [employer]. [address] [place] [address], [place] [address]. All rights reserved. This information is not intended as a substitute for professional medical care. Always follow yourhealthcare professional's instructions. Follow Up Care 07/10/2023 05:15:41 With:JENNIFER BRASHER MD Address: [address] [place] [address] & [place] [address]- [phone] When:2-4 days [facility] 11-24-2023 Note Discharge Instructions Thank you for allowing [facility] to assist you with your healthcare needs. [...] BRASHER MD When Within 2-4 days Where: [address] [place] [address] & [place] [address]- [phone] Allergies NKA Medications Please ask your primary [...] nausea before eating solid foods. Only take bpqp-mts-znzalyt or prescription medicines for pain, discomfort, or [...] worse. Document Released: 05/24/2014 Document Reviewed: 05/24/2014 [facility] Patient Information 2015 [facility]. This information is not intended to [...] This will gradually bring back your r dndy-nk-ecxwxm and shoulder strength. It will also lower [...] for a longer time may limit your nbgli-zy-uojehp at the shoulder joint. If you have [...] blue, numb or tingly Fever or chills 3320-9563 [employer]. [address] [place] [address]. All rights reserved. This information is not intended as a substitute for professional medical care. Always follow yourhealthcare professional's instructions. Additional Information VACCINATE! IT SAVES LIVES! Members of the community who have not yet received the COVID-19 vaccine and would like to receive it can visit one of [facility] vaccine clinics. There are many vaccine clinic locations within the [facility]. For locations and available times, please visit www.gettheshot.coronavirus.[place].gov/. It is important to note that some COVID mobile vaccine clinics are held outdoors and may be canceled in rainy or stormy conditions. To learn more about pediatric vaccinations (ages 5-11), we invite you to visit the [facility] webpage. https://www.[facility].org/pages/4534-Kqcyz-Zfpuotizqrw-Ckgmtmmhvi-Rsimp-Hhj stions.htmlTo learn more about the COVID-19 vaccine, we invite you to visit the CDC website for a list of frequently asked questions. https://www.cdc.gov/coronavirus/2019-ncov/vaccines/faq.html [facility] [employer] Patient Portal Access Instructions: Stay connected with your healthcare team and access your personal medical information anytime with the [facility] Patient Portal. If you would like a full copy of your medical records please contact the [facility] Medical Records Department Thursday through Thursday between 8a.m. and 4:30p.m. Please follow the directions below to access the portal: 1.Access the email account you provided upon registration to the [facility].2.Look for an invitation email from [facility].3.Open the email and access the invitation link: Accept Invitation to [employer]4.Fill in the required allen to create your account. Sign into [email or web address] with your username and password that you [...] you will allow to register on the [employer] Patient Portal for access to your information. You can also access the [employer] Patient Portal on the [employer]. Simply click on Health Records under appsplit and then click on the [employer] logo. HOW TO SAFELY DISPOSE OF PRESCRIPTION [...] Call your local pharmacy or go to [email or web address] to find one close to you.3.Make use of household items: Use cat litter or old coffee grounds to dispose medications if other options arenot available. Mix your drugs with these household products, seal them in an airtight container andthrow it into the garbage. Call [facility]: [phone] to be sure your drugs can be [...] am aware that I should contactmy doctor. Patient/Timber Selector Signature: Date/Time: Relationship to Patient: Witness Name/Signature: Date/Time: [facility]11-24-2023 Note ORIGINAL EXAMINATION: TWO XRAY VIEWS [...] Sign Date: 07/10/2023 7:21:59 AM Ordering Provider: [facility]11-24-2023 Note ORIGINAL EXAMINATION: TWO XRAY VIEWS OF [...] Sign Date: 07/10/2023 7:19:13 AM Ordering Provider: [facility]11-24-2023 Note ORIGINAL EXAMINATION: 3 XRAY VIEWS OF [...] Sign Date: 07/10/2023 6:05:42 AM Ordering Provider: [facility]05-30-2023 Evaluation + Plan note Future Scheduled Tests Radiology* XR Spine Lumbar W/Obliques 4 Views 01/13/23 [facility] Evaluation + Plan note Future Appointments Appointment Date:09/09/2021 09:50:00 AM Scheduled Provider:СВЕТЛАНА DURAN DO Location:[facility] Appointment Type:PC OV Appointment Date:09/23/2021 10:00:00 AM Scheduled Provider:SUMANTH TRACEY Location[facility] Appointment Type:CV OV [facility] Evaluation + Plan note Future Appointments Appointment Date:03/11/2022 10:30:00 AM Scheduled Provider:JENNIFER VILLASEÑOR MD Location:[facility] Appointment Type:PC Wellness Annual Future Scheduled Tests Laboratory* Prostate Specific Antigen 09/10/21 Radiology* XR Hand Minimum 3 Views Left 01/08/22 [facility] Evaluation + Plan note Future Appointments Appointment Date:09/16/2023 01:00:00 PM Scheduled Provider: Location:[facility] Appointment Type:CT Head or Brain w/ Contrast Appointment Date:09/16/2023 02:00:00 PM Scheduled Provider: Location:[facility] Appointment Type:CT Shoulder w/o Contrast Right Appointment Date:09/22/2023 04:00:00 PM Scheduled Provider:JENNIFER VILLASEÑOR MD Location:[facility] Appointment Type:PC OV Future Scheduled Tests Radiology* CT Head or Brain w/ Contrast 09/16/23 * CT Shoulder w/o Contrast Right 09/16/23 * XR Spine Lumbar W/Obliques 4 Views 01/13/23 [facility] Evaluation + Plan note Future Appointments Appointment Date:09/22/2023 04:00:00 PM Scheduled Provider:JENNIFER VILLASEÑOR MD Location:[facility] Appointment Type:PC OV Future Scheduled Tests Radiology* XR Spine Lumbar W/Obliques 4 Views 01/13/23 [facility] Evaluation + Plan note Future Appointments Appointment Date:06/17/2024 08:30:00 AM Scheduled Provider:JENNIFER VILLASEÑOR MD Location:[facility] Appointment Type:PC OV Follow Up Appointment Date:07/06/2024 10:00:00 AM Scheduled Provider: Location:[facility] Appointment Type:IR Facet Injection Future Scheduled Tests Radiology* IR Facet Injection 07/06/24 [facility] evaluation note* Diagnosis Onset Date Resolution Status Alcohol withdrawal acute [facility] Work Phone: Evaluation noteNo assessment information available [facility] Work Phone: History and physical note Author Taylor Kaur [facility] December 19, 2023 1:12am Note Date/Time December 19, 2023 12:47a m [facility] Medical Records Department [address] [place] [address] H&P Exam - Hospitalist 12/19/23 0043 MR#: [id number] Acct: [id number] Name: JENNIFER YORK Rep #:[id number] : 1960 63 From: Taylor Kaur MD PCP: Dr. Jennifer Villaseñor MD Status:REG ER Location: ED HPI - General General Date of Admission: 12/19/23 Date of Service: 12/19/23 Chief Complaint: Confusion. HPI Narrative The patient is a 63 y/o M w/ PMHx: Chronic thrombocytopenia, HTN, Tobacco use, EtOH abuse, Anxiety and Depression, Chronic neck pain with DDD who presents to the [facility] ED on 12/18/23 noted to have [...] 76.9 H, Lymph % (Auto) 9.5 L, R[place] % (Auto) 12.5 H, Eos % (Auto) [...] Clarity Clear, Urine pH 6.0, Ur Specific Urania 1.020, Urine Protein 500 H, Urine Glucose [...] pain with DDD who presents to the [facility] ED on 12/18/23 noted to have [...] anemia, unclear exact chronicity: Admission hemoglobin 10.3, SHM286.6, baseline hemoglobin unknown is no recent comparisons [...] Full Code. Charges/Coding Visit Charges Inpatient E&M: 74771 Init Hosp L3 12/19/23 0112 <Electronically signed by Taylor Kaur MD> Cosigner Signature (if applicable): CC: Dr. Taylor Kaur MD; Dr. Jennifer Villaseñor MD~ Signed [facility] Work Phone: Hospital course Narrative No data available for this section [facility] Hospital Discharge instructions No data available for this section [facility] Progress note No data available for this section [facility] Reason for referral (narrative)No reason for referral information availableWWVUMed[facility] Work Phone: Summary Purpose Family History No Family History Records Found Relationship Condition Age at Onset Recorded Date/T leonora Unknown Family History?No pertinent history Unkno wn November 21, 2019 10:20pm Advance Directives No Advanced Directives Records Found Advance Directive Response Recorded Date/ Time Living Will No December 19, 2023 1: 55am Power of Intermediate Teacher No December 19, 2023 1:55am Advance Directive Response Recorded Date/ Time Do you have a [facility] Power of Intermediate Teacher? No February 03, 2025 11:57am Chief Complaint [...] section and content) DATE CREATED AUTHOR 06/10/2019 [facility] Saira Heard DATE CREATED AUTHOR AUTHOR'S ORGANIZ ATION 04/13/2024 [facility] ([place]) DATE CREATED AUTHOR AUTHOR'S ORGANIZ ATION 07/17/2024 [facility] DATE CREATED AUTHOR AUTHOR'S ORGANIZ ATION 11/10/[address] [facility] DATE CREATED AUTHOR AUTHOR'S ORGANIZ ATION 02/11/2025 [facility] Care Team (unrecognized sect ion and content) [...] MD Primary Care Provider Active Dr. Brendan hCilds DO Emergency Provider Active Dr. Taylor Kaur [...] BE BASED ON THE PRIMARY CLINICAL RECORDS. [facility]. provides no warranty or guarantee of the accuracy or completeness of information in this document.
--- OUTSIDE RECORDS SUMMARY | 2025-02-15 01:38 | XMS RPT_ITS | CCD ---
Author Organization [facility] Care Team Providers Care Rehabilitation Services Counselor Name Role Phone JENNIFER VILLASEÑOR MD Primary Care Physician Dr. Jennifer Villaseñor Primary Care Provider [phone] Dr. Brendan Childs Emergency Provider [phone] Dr. Taylor Kaur Attending Provider [phone] Dr. Taylor Kaur Admit Provider [phone] Taylor Kaur Other Provider Dr. Janet [...] Unavailable JENNIFER VILLASEÑOR MD Primary Care Unavailable MEILIE FIGUEROA DO Attending Unavailable JENNIFER VILLASEÑOR MD [...] Villaseñor MD, Dr. Boo Primary Care Provider [phone] Dr. Abby Marvin DO Emergency Provider [phone] Jennifer Villaseñor Primary Care Unavailable Abby Marvin [...] day(s), # 14 tab(s), 0 Refill(s), Pharmacy: [facility], Rib fracture, 187, cm, 05/26/24 13:07:00 [...] day(s), # 20 tab(s), 0 Refill(s), Pharmacy: [facility]/pharmacy #[id number], Rib fractures, 185.4, cm, 05/16/24 2:21:00 [...] pain, # 20 tab(s), 0 Refill(s), Pharmacy: [facility]/pharmacy #4605, [facility] fracture, 185.4, cm, 10/01/23 8:30:00 EST, Height, [...] BID, # 60 tab(s), 0 Refill(s), Pharmacy: [facility]/pharmacy #4605, Alcohol abuse History of encephalopathy, 185.4, cm, 10/01/23 8:30:00 EST, Height, kg, 10/01/23 8:30:00 EST, Dosing Weight Start Date: 01/02/24 Status: Ordered folic acid 1 mg oral tablet (5 sources) Start: 01-02-2024 folic acid 1 mg oral tablet Dose : 1 mg = 1 tab(s), Oral, qDay, # 90 tab(s), 0 Refill(s), Pharmacy: [facility]/pharmacy #4605, Alcohol abuse History of encephalopathy, 185.4, [...] day(s), # 30 patch(es), 0 Refill(s), Pharmacy: [facility], Rib fracture Alcoholic cirrhosis, 187, cm, 05/26/24 13:07:00 EDT, Height, 84.9, kg, 05/26/24 13:07:00 EDT, Dosing Weight Start Date: 05/26/24 Stop Date: 06/25/24 Status: Ordered meloxicam 7.5 mg oral tablet (1 source) Nonsteroidal Anti-inflammatory Drug Start: 01-08-2022 End: 01-22-2022 meloxicam 7.5 mg oral tablet Dose : 7.5 mg = 1 tab(s), Oral, BID, PRN Pain, # 28 tab(s), 0 Refill(s), Pharmacy: [facility]/pharmacy #4605, Left hand pain, 180.3, cm, 01/08/22 11:02:00 EDT, Height Start Date: 01/08/22 Stop Date: 01/22/22 Status: Ordered Milk of Magnesia (1 source) Start: 05-17-2024 take 1 dose by mouth once daily as needed for constipation Milk of Magnesia Dose = 30 mL, Oral, qDay, PRN Constipation, 0 Refill(s) Start Date: 05/17/24 Status: Ordered Vaydbjbi-Uxqk-P m-Jqcvikb-Nhlb (Therapeutic-M) 9 mg iron-400 mcg Tablet (2 sources) Start: 12-25-2023 take 9 tablets by mouth once at breakfast Oeininrd-Bwrv-Al -Calcium-Mins (Therapeutic-M) 9 mg iron-400 mcg Tablet Active 1 {tbl} PO WITH BREAKFAST December 25, 2023 12:00am Start: 12-25-2023 Multivit-Iron- Ex-Ltyvmvh-Qoty (Therapeutic-M) 9 mg iron-400 mcg Tablet Active 1 TABLET PO WITH BREAKFAST December 25, 2023 12:00am mupirocin 0.02 mg/mg topical ointment (1 source) RNA Synthetase Inhibitor Antibacterial Start: 09-09-2021 mupirocin 2% topical ointment Apply 1 louisa, Topical, TID, # 22 gram(s), 0 Refill(s), Pharmacy: [facility]/pharmacy #[id number], Ointment, 187, cm, 09/09/21 10:00:00 EST, [...] qDay, # 30 tab(s), 0 Refill(s), Pharmacy: [facility]/pharmacy #4605, Alcoholism CHECO (generalized anxiety disorder), 185.4, cm, 08/26/23 16:00:00 EST, Height, kg, 08/26/23 16:00:00 EST, Dosing Weight Start Date: 08/26/23 Status: Ordered polyethylene glycol 3350 48545 mg powder for oral solution (1 source) Osmotic Laxative Start: 05-17-2024 Miralax Powde r Packet Oral, qDay, 0 Refill(s) Start Date: 05/17/24 Status: Ordered sertraline 50 mg oral tablet (1 source) Serotonin Reuptake Inhibitor Start: 08-29-2022 Zoloft 50 mg oral tablet Dose : 50 mg = 1 tab(s), Oral, qDay, # 30 tab(s), 1 Refill(s), Pharmacy: [facility]/pharmacy #4605, Depression Alcoholism, 186, cm, 07/31/22 16:59:00 EST, Height, kg, 07/31/22 16:59:00 EST, Dosing Weight Start Date: 08/29/22 Status: Ordered thiamine 100 mg oral tablet (5 sources) Start: 01-02-2024 thiamine 100 m g oral tablet Dose : 100 mg = 1 tab(s), Oral, Daily, # 100 tab(s), 0 Refill(s), Pharmacy: [facility]/pharmacy #4605, Alcohol abuse History of encephalopathy, 185.4, cm, 10/01/23 8:30:00 EST, Height, kg, 10/01/23 8:30:00 EST, Dosing Weight Start Date: 01/02/24 Status: Ordered traZODone hydrochloride 100 mg oral tablet (3 sources) Serotonin Reuptake Inhibitor Start: 05-26-2024 End: 05-21-2025 traZODone 100 mg oral tablet Dose : 100 mg = 1 tab(s), Oral, qHS, # 30 tab(s), 11 Refill(s), Pharmacy: [facility], 187, cm, 05/26/24 13:07:00 EDT, Height, [...] qWeek, # 12 tab(s), 1 Refill(s), Pharmacy: [facility]/pharmacy #[id number], Alcohol abuse History of encephalopathy, 185.4, cm, [...] TID, # 90 tab(s), 0 Refill(s), Pharmacy: [facility]/pharmacy #4605, Alcoholism CHECO (generalized anxiety disorder), 185.4, [...] TID, # 90 tab(s), 1 Refill(s), [facility], Anxiety, generalized, 186, cm, 01/13/23 15:57:00 EDT, Height, 83.7, kg, 01/13/23 15:57:00 EDT, Dosing Weight Start Date: 05/05/23 Stop Date: 07/04/23 Status: Ordered Start: 11-28-2022 End: 02-26-2023 Ativan 1 mg oral tablet Dose : 1 mg = 1 tab(s), Oral, TID, # 90 tab(s), 2 Refill(s), [facility], Anxiety, generalized, 186, cm, 11/28/22 8:06:00 EDT, Height, 85.8, kg, 11/28/22 8:06:00 EDT, Dosing Weight Start Date: 11/28/22 Stop Date: 02/26/23 Status: Ordered Start: 10-16-2021 End: 11-15-2021 Ativan 1 mg oral tablet Dose : 1 mg = 1 tab(s), Oral, TID, # 90 tab(s), 0 Refill(s), Pharmacy: [facility]/pharmacy #4605, Anxiety, generalized, 187, cm, 09/09/21 10:00:00 EST, Height, 84.4, kg, 09/09/21 10:00:00 EST, Dosing Weight Start Date: 10/16/21 Stop Date: 11/15/21 Status: Ordered Start: 06-10-2021 End: 07-10-2021 Ativan 1 mg oral tablet Dose : 1 mg = 1 tab(s), Oral, TID, # 90 tab(s), 0 Refill(s), Pharmacy: [facility]/pharmacy #4605, Anxiety, generalized, 187, cm, 06/10/21 8:55:00 EDT, Height, 84.2, kg, 06/10/21 8:55:00 EDT, Dosing Weight Start Date: 06/10/21 Stop Date: 07/10/21 Status: Ordered losartan potassium 50 mg oral tablet (16 sources) Angiotensin 2 Receptor Bronwyn Start: 08-26-2023 End: 08-20-2024 losartan 50 mg oral tablet Dose : 50 mg = 1 tab(s), Oral, qDay, # 30 tab(s), 5 Refill(s), [facility], 185.4, cm, 10/01/23 8:30:00 EST, Height, kg, 10/01/23 8:30:00 EST, Dosing Weight Start Date: 10/01/23 Stop Date: 03/29/24 Status: Ordered Start: 07-09-2022 End: 07-04-2023 losartan 50 mg oral tablet D ose : 50 mg = 1 tab(s), Oral, qDay, # 90 tab(s), 3 Refill(s), [facility], 185, cm, 07/09/22 15:23:00 EST, Height, kg, 07/09/22 15:23:00 EST, Dosing Weight Start Date: 07/09/22 Stop Date: 07/04/23 Status: Ordered Start: 06-10-2021 End: 06-05-2022 losartan 50 mg oral tablet D ose : 50 mg = 1 tab(s), Oral, qDay, # 90 tab(s), 3 Refill(s), Pharmacy: [facility]/pharmacy #4605, 187, cm, 06/10/21 8:55:00 EDT, Height, [...] Other nervous system disorders (1 source) 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 Abby Marvin DO; Dr. Jennifer Villaseñor MD Signed Normal [facility] Abdomen/Pelvis W IV Cont ONL Yon 02-03-2025 Abdomen/Pelvis W IV Cont ONLY [facility] Imaging Services [address] [place], [place] [id number] Abdomen/Pelvis W IV Cont ONLY MR#: [id number] Acct: [id number] Name: JENNIFER YORK Rep #: [id number] : 1960 M 64 From: Michael Brunner MD PCP: Dr. Jennifer Villaseñor MD Status: REG ER Study: Abdomen/Pelvis W IV Cont ONLY Date of Exam: Exam# [id number] Ordering Dr: Abby Marvin DO EXAM: CT [...] fat. 6. Inguinal hernias, bilaterally. Reading Location: [facility] CC: Dr. Abby Marvin DO; Dr. Jennifer Villaseñor MD Knapsack Sprayer: Signed Normal [facility] Absolute lymphocyte countOrd ered By: Abby Marvin on 02-03-2025 Lymphocytes Auto (Unsp spec) [#/Vol] 1.42 10*3/uL 0.83-4.51 [facility] Absolute neutrophil countOrd ered By: Abby Marvin on 02-03-2025 Neutrophils (Bld) [#/Vol] 1.6 10*3/uL Low 2.0-7.7 [facility] Alcohol, Blood (Medical)-Ser umon 02-03-2025 SERUM ETOH 335.0 mg/dL Invalid Interpretation Code <=10.0 [facility] Comment on above: Result Comment: Crit ical Result(s) Called at:02/03/2025-14:10 by: Aris Kaur to Tigre Saleem??Results read back by same. This test is for medical purposes only. The legal definition of intoxication varies according to local law. Performed By: #### L 100.0100, L500.4050, L501.9100 #### [facility] [address] [place], [place], [id number] Anion gap in Serum or Plasma Ordered By: Abby Marvin on 02-03-2025 Anion gap [Moles/Vol] 21 mmol/L High 5-15 [facility] Automated lymphocyte count a s percentage of total leukocytesOrdered By: Abby Marvin on 02-03-2025 Lymphocytes/100 WBC Auto (Unsp spec) 40.6 % -41 [facility] BUN/creatinine ratioOrdered By: Abby Marvin on 02-03-2025 Urea nitrogen/Creatinine [Mass ratio] 13.8 mg/mg 10- [facility] Basophil percentageOrdered B y: Abby Marvin on 02-03-2025 Basophils/100 WBC (Bld) 0.9 % 0-1 [facility] Bilirubin, totalOrdered By: Abby Yon on 02-03-2025 Bilirubin [Mass/Vol] 1.70 mg/dL High 0.00-1.[address] [facility] Brain/Head without Contrasto n 02-03-2025 Brain/Head without Contrast [facility] Imaging Services [address] [place], [place] [address] Brain/Head without Contrast MR#: [id number] Acct: [id number] Name: JENNIFER YORK Rep #: [id number] : 1960 M 64 From: Yony pruitt MD PCP: Dr. Jennifer Villaseñor MD Status: REG ER Study: Brain/Head without Contrast Date of Exam: 01/16 Exam# [id number] Ordering Dr: Abby Marvin DO PROCEDURE: BRAIN/HEAD [...] CHRONIC CHANGES. NO ACUTE FINDINGS. Reading Location: [place] [address] CC: Dr. Abby Marvin DO; Dr. Jennifer Villaseñor MD Knapsack Sprayer: Signed Normal [facility] CBC W/Diff, Automatedon 01-16 PLT EST MKD DEC Normal ADEQ [facility] Comment on above: Performed By: #### L 100.0100, L500.4050, L501.9100 #### [facility] [address] [place], [address] Carbon dioxide, total [Moles /volume] in Central venous bloodOrdered By: Abby Marvin on 02-03-2025 CO2 [Moles/Vol] 16.5 mmol/L Low 21.0-32.0 [facility] Chest without Contraston Chest without Contrast [facility] Imaging Services [address] [place] [address] Chest without Contrast MR#: [id number] Acct: [id number] Name: JENNIFER YORK Rep #: [id number] : 1960 M 64 From: Yony pruitt MD PCP: Dr. Jennifer Villaseñor MD Status: REG ER Study: Chest without Contrast Date of Exam: 02/03/25 Exam# [id number] Ordering Dr: Abby Marvin DO PROCEDURE: CHEST [...] Minimal amount of perisplenic fluid. [facility] CC: Dr. Abby Marvin, DO; Dr. Jennifer Villaseñor MD Knapsack Sprayer: Signed Normal [facility] Chloride assayOrdered By: Og Marvin on 02-03-2025 Chloride [Moles/Vol] 104 mmol/L 98-[address] [facility] Comprehensive Metabolic Prof ilon 02-03-2025 Albumin [Mass/Vol] 3.7 g/dL Normal 3.4-4.8 [facility] Comment on above: Performed By: #### L 100.0100, L500.4050, L501.9100 #### [facility] [address] [place], [address] Albumin/Globulin [Mass ratio] 0.7 {ratio} Low 0.9-2.4 [facility] Comment on above: Performed By: #### L 100.0100, L500.4050, L501.9100 #### [facility] [address] [place], [address] ALK PHOS 110 U/L Normal 40-129 [facility] Comment on above: Performed By: #### L 100.0100, L500.4050, L501.9100 #### [facility] [address] [place], [address] ALT [Catalytic activity/Vol] 50 U/L High <=46 [facility] Comment on above: Performed By: #### L 100.0100, L500.4050, L501.9100 #### [facility] [address] [place], [address] AST [Catalytic activity/Vol] 154 U/L High <=37 [facility] Comment on above: Performed By: #### L 100.0100, L500.4050, L501.9100 #### [facility] [address] [place], [address] Bilirubin [Mass/Vol] 1.70 mg/dL High 0.00-1.[address] [facility] Comment on above: Performed By: #### L 100.0100, L500.4050, L501.9100 #### [facility] [address] [place], [address] BUN/CRE 13.8 RATIO Normal 10-20 [facility] Comment on above: Performed By: #### L 100.0100, L500.4050, L501.9100 #### [facility] [address] [place], [address] Calcium [Mass/Vol] 8.6 mg/dL Normal 7.6-11.0 [facility] Comment on above: Performed By: #### L 100.0100, L500.4050, L501.9100 #### [facility] [address] [place], [address] Chloride [Moles/Vol] 104 mmol/L Normal 98-[address] [facility] Comment on above: Performed By: #### L 100.0100, L500.4050, L501.9100 #### [facility] [address] [place], [address] CO2 [Moles/Vol] 16.5 mmol/L Low 21.0-32.0 [facility] Comment on above: Performed By: #### L 100.0100, L500.4050, L501.9100 #### [facility] [address] [place], [address] Creatinine [Mass/Vol] 0.71 mg/dL Normal 0.70-1.20 [facility] Comment on above: Performed By: #### L 100.0100, L500.4050, L501.9100 #### [facility] [address] [place], [address] GAP 21 High 5-15 [facility] Comment on above: Performed By: #### L 100.0100, L500.4050, L501.9100 #### [facility] [address] [place], [address] GFR/1.73 sq M.predicted among non-blacks MDRD (S/P/Bld) [Vol rate/Area] 102 mL/min/{1.73_m2} Normal >60 [facility] Comment on above: Result Comment: mL/m in/1.73m2 CKD-EPI Creatinine Equation (2020) Performed By: #### L 100.0100, L500.4050, L501.9100 #### [facility] [address] [place], [address] Globulin (S) [Mass/Vol] 5.2 g/dL High 2.2-4.2 [facility] Comment on above: Performed By: #### L 100.0100, L500.4050, L501.9100 #### [facility] [address] [place], [address] Glucose [Mass/Vol] 84 mg/dL Normal 70-99 [facility] Comment on above: Performed By: #### L 100.0100, L500.4050, L501.9100 #### [facility] [address] [place], [address] Potassium [Moles/Vol] 3.7 mmol/L Normal 3.3-5.1 [facility] Comment on above: Performed By: #### L 100.0100, L500.4050, L501.9100 #### [facility] [address] [place], [address] Sodium [Moles/Vol] 142 mmol/L Normal 133-145 [facility] Comment on above: Performed By: #### L 100.0100, L500.4050, L501.9100 #### [facility] [address] [place], [address] T PROT 8.9 g/dL High 5.9-8.4 [facility] Comment on above: Performed By: #### L 100.0100, L500.4050, L501.9100 #### [facility] [address] [place], [address] Urea nitrogen [Mass/Vol] 10 mg/dL Normal 4-19 [facility] Comment on above: Performed By: #### L 100.0100, L500.4050, L501.9100 #### [facility] [address] [place], [address] Emergency Department Summary on 02-03-2025 Emergency Department Summary [facility] Medical Records Department [address] [place] [address] Emergency Department Summary 02/03/25 MR#: [id number] Acct: [id number] Name: JENNIFER YORK Rep #: [id number] : 1960 64 From: Abby Marvin DO [...] about this. Denies any blood thinner use. [facility] Medical History Chronic neck pain Thrombocytopenia Tobacco [...] Temperatur (more content not included)... Normal [facility] Eosinophil percentageOrdered By: Abby Marvin on 02-03-2025 Eosinophils/100 WBC (Bld) 0.6 % 0-5 [facility] Erythrocyte distribution wid th ratioOrdered By: Abby Marvin on 02-03-2025 Erythrocyte distribution width (RBC) [Ratio] 15.4 % High 11.6-14.6 [facility] Erythrocyte distribution wid th standard deviationOrdered By: Abby Marvin on 02-03-2025 Erythrocyte distribution width (RBC) [Ratio] 59.4 fl High 35.1-43.9 [facility] Glomerular filtration rate ( GFR) estimation/1.73 sq m using serum, plasma, or whole bOrdered By: Abby Marvin on 02-03-2025 GFR/1.73 sq M.predicted among non-blacks MDRD (S/P/Bld) [Vol rate/Area] 102 mL/min/{1.73_m2} >60 [facility] Comment on above: mL/min/1.73m2 CKD-EP I Creatinine Equation (2020) Hematocrit Auto (Bld) [Volum e fraction]Ordered By: Abby Marvin on 02-03-2025 Hematocrit (Bld) [Volume fraction] 32.9 % Low 40-54 [facility] Hemoglobin measurementOrdere d By: Abby Marvin on 02-03-2025 Hemoglobin (Bld) [Mass/Vol] 11.0 g/dL Low 13.0-16.5 [facility] Immature granulocytes/100 WB C Auto (Bld)Ordered By: Abby Marvin on 02-03-2025 Immature granulocytes/100 WBC (Bld) 0.900 % 0.0-0.9 [facility] Comment on above: IG% - Immature Granu locytes (promyelocytes, myelocytes and metamyelocytes) > 1% indicates that a LEFT SHIFT is Present. Laboratory - Chemistry and C hemistry - challengeOrdered By: Abby Marvin on 02-03-2025 AST [Catalytic activity/Vol] 154 U/L High <38 [facility] MCV (mean corpuscular volume ) determinationOrdered By: Abby Marvin on 02-03-2025 MCV (RBC) [Entitic vol] 103.5 fL High 80-94 [facility] Mean corpuscular hemoglobin (MCH) determinationOrdered By: Abby Marvin on 02-03-2025 MCH (RBC) [Entitic mass] 34.6 pg High 27.0-32.0 [facility] Mean corpuscular hemoglobin concentration (MCHC) determinationOrdered By: Abby Marvin on 02-03-2025 MCHC (RBC) [Mass/Vol] 33.4 g/dL 32-36 [facility] Mean platelet volume determi nationOrdered By: Abby Marvin on 02-03-2025 Platelet mean volume (Bld) [Entitic vol] 11.6 fL 6.2-12.0 [facility] Monocyte percentageOrdered B y: Abby Marvin on 02-03-2025 Monocytes/100 WBC (Bld) 10.6 % High 0-10 [facility] Neutrophil percentageOrdered By: Abby Marvin on 02-03-2025 Neutrophils/100 WBC (Bld) 46.4 % Low 47-70 [facility] Nucleated red blood cell per centageOrdered By: Abby Marvin on 02-03-2025 Nucleated RBC/100 WBC (Bld) [Ratio] 0 % 0-5 [facility] Platelet countOrdered By: Og Marvin on 02-03-2025 Platelets (Bld) [#/Vol] 31 10*3/uL Low 150-450 [facility] Comment on above: CRITICAL VALUE ALANIS D TO [place] (ER)02/03/25 1348 Zafar Kang.RESULTS READ BACK BY SAME. Platelet estimateOrdered By: Abby Marvin on 02-03-2025 Platelets LM Ql (Bld) MKD DEC ADEQ [facility] Potassium measurement (mass/ volume)Ordered By: Abby Marvin on 02-03-2025 Potassium (Unsp spec) [Mass/Vol] 3.7 mmol/L 3.3-5.1 [facility] RBC Auto (Bld) [#/Vol]Ordere d By: Abby Marvin on 02-03-2025 RBC (Bld) [#/Vol] 3.18 10*6/uL Low 4.6-6.2 [facility] Serum creatinine measurement (mass/volume)Ordered By: Abby Marvin on 02-03-2025 Creatinine [Mass/Vol] 0.71 mg/dL 0.70-1.20 [facility] Serum globulin measurementOr dered By: Abby Marvin on 02-03-2025 Globulin (S) [Mass/Vol] 5.2 g/dL High 2.2-4.2 [facility] Serum glucose measurement (m ass/volume)Ordered By: Abby Marvin on 02-03-2025 Glucose [Mass/Vol] 84 mg/dL 70-99 [facility] Serum or plasma alanine eckert otransferase (ALT) measurementOrdered By: Abby Marvin on 02-03-2025 ALT [Catalytic activity/Vol] 50 U/L High <47 [facility] Serum or plasma albumin josé miguel urement (mass/volume)Ordered By: Abby Marvin on 02-03-2025 Albumin [Mass/Vol] 3.7 g/dL 3.4-4.8 [facility] Serum or plasma albumin/glob ulin mass ratioOrdered By: Abby Marvin on 02-03-2025 Albumin/Globulin [Mass ratio] 0.7 {ratio} Low 0.9-2.4 [facility] Serum or plasma alkaline silva sphatase measurementOrdered By: Abby Marvin on 02-03-2025 ALP [Catalytic activity/Vol] 110 U/L 40-129 [facility] Serum or plasma calcium josé miguel urement (mass/volume)Ordered By: Abby Marvin on 02-03-2025 Calcium [Mass/Vol] 8.6 mg/dL 7.6-11.0 [facility] Serum or plasma ethanol josé miguel urement (mass/volume)Ordered By: Abby Marvin on 02-03-2025 Ethanol [Mass/Vol] 335.0 mg/dL High <10.1 [facility] Comment on above: Critical Result(s) C alled at:02/03/2025-14:10 by: Aris Kaur to Tigre Saleem Results read back by same.This test is for medical purposes only. The legal definition of intoxication varies according to local law. Serum or plasma urea nitroge n measurement (mass/volume)Ordered By: Abby Marvin on 02-03-2025 Urea nitrogen [Mass/Vol] 10 mg/dL 4-19 [facility] Sodium levelOrdered By: Alvin Marvin on 02-03-2025 Sodium [Moles/Vol] 142 mmol/L 133-145 [facility] Total proteinOrdered By: Katherine Marvin on 02-03-2025 Protein [Mass/Vol] 8.9 g/dL High 5.9-8.4 [facility] White blood cell (WBC) count Ordered By: Abby Marvin on 02-03-2025 WBC (Bld) [#/Vol] 3.5 10*3/uL Low 4.4-11.0 [facility] .GFRon 10-13-2024 Estimated Glomerular Filtration Rate 104 ml/min/1.73sqm Normal [facility] Comment on above: Result Comment: [...] MP, CBC, ADIFF, GFR, ANEU, MG #### [address] [address] BMPon 10-13-2024 BUN/Creatinine Ratio 10 ratio Normal 7-27 [facility] Comment on above: Performed By: #### B MP, CBC, ADIFF, GFR, ANEU, MG #### [address] [address] Calcium [Mass/Vol] 8.4 mg/dL Normal 8.4-10.2 [facility] Comment on above: Performed By: #### B MP, CBC, ADIFF, GFR, ANEU, MG #### [address] [address] Chloride [Moles/Vol] 101 mmol/L Normal 98-107 [facility] Comment on above: Performed By: #### B MP, CBC, ADIFF, GFR, ANEU, MG #### [address] [address] CO2 [Moles/Vol] 25 mmol/L Normal 23-31 [facility] Comment on above: Performed By: #### B MP, CBC, ADIFF, GFR, ANEU, MG #### [address] [address] Creatinine [Mass/Vol] 0.67 mg/dL Low 0.70-1.30 [facility] Comment on above: Result Comment: Test ing performed on Siemens Dimension EXL analyzer using a modified kinetic Tri technique. Performed By: #### B MP, CBC, ADIFF, GFR, ANEU, MG #### [address] [address] Electrolyte Balance 11.0 mEq/L Normal 4.0-15.0 [facility] Comment on above: Performed By: #### B MP, CBC, ADIFF, GFR, ANEU, MG #### [address] [address] Glucose [Mass/Vol] 84 mg/dL Normal 80-115 [facility] Comment on above: Performed By: #### B MP, CBC, ADIFF, GFR, ANEU, MG #### [address] [address] Potassium [Moles/Vol] 4.2 mmol/L Normal 3.5-5.1 [facility] Comment on above: Performed By: #### B MP, CBC, ADIFF, GFR, ANEU, MG #### [address] [address] Sodium [Moles/Vol] 137 mmol/L Normal 136-145 [facility] Comment on above: Performed By: #### B MP, CBC, ADIFF, GFR, ANEU, MG #### [address] [address] Urea nitrogen [Mass/Vol] 7 mg/dL Normal 7-18 [facility] Comment on above: Performed By: #### B MP, CBC, ADIFF, GFR, ANEU, MG #### [address] [address] HFPon 10-13-2024 Bili Indirect 0.9 mg/dL Normal [facility] Comment on above: Performed By: #### B MP, CBC, ADIFF, GFR, ANEU, MG #### [address] [address] Albumin Level 2.1 G/dL Low 3.4-4.8 [facility] Comment on above: Performed By: #### B MP, CBC, ADIFF, GFR, ANEU, MG #### [address] [address] Albumin/Globulin [Mass ratio] 0.5 {ratio} Low 1.1-2.5 [facility] Comment on above: Performed By: #### B MP, CBC, ADIFF, GFR, ANEU, MG #### [place] [address] ALP [Catalytic activity/Vol] 176 U/L High 40-135 [facility] Comment on above: Performed By: #### B MP, CBC, ADIFF, GFR, ANEU, MG #### [place] [address] ALT [Catalytic activity/Vol] 63 U/L Normal 16-63 [facility] Comment on above: Performed By: #### B MP, CBC, ADIFF, GFR, ANEU, MG #### [place] [address] AST [Catalytic activity/Vol] 262 U/L High 10-40 [facility] Comment on above: Performed By: #### B MP, CBC, ADIFF, GFR, ANEU, MG #### [place] [address] Bili Direct 3.6 mg/dL High 0.0-0.2 [facility] Comment on above: Result Comment: Use of this assay is not recommended for patients undergoing treatment with eltrombopag due to the potential for falsely elevated results. Performed By: #### B MP, CBC, ADIFF, GFR, ANEU, MG #### [place] [address] Bili Total 4.5 mg/dL High 0.2-1.0 [facility] Comment on above: Result Comment: Use of this assay is not recommended for patients undergoing treatment with eltrombopag due to the potential for falsely elevated results. Performed By: #### B MP, CBC, ADIFF, GFR, ANEU, MG #### [place] [address] Globulin 4.6 G/dL High 1.5-3.8 [facility] Comment on above: Performed By: #### B MP, CBC, ADIFF, GFR, ANEU, MG #### [place] [id number] Total Protein 6.7 G/dL Normal 6.4-8.2 [facility] Comment on above: Performed By: #### B MP, CBC, ADIFF, GFR, ANEU, MG #### [place] [id number] [place], [place] [address] LABORATORYOrdered By: SYSTEM SYSTEM on 10-13-2024 Albumin [...] 10-13-2024 Magnesium [Mass/Vol] 1.7 mg/dL Low 1.8-2.4 [facility] Comment on above: Performed By: #### B MP, CBC, ADIFF, GFR, ANEU, MG #### [address] [address] .GFRon 10-12-2024 Estimated Glomerular Filtration Rate 100 ml/min/1.73sqm Normal [facility] Comment on above: Result Comment: [...] results. Performed By: #### R ESCOLIVIA #### [facility] [address] [place] [id number] BUN/Creatinine Ratio 9 ratio Normal 7-27 [facility] Comment on above: Performed By: #### Gabriel SAEZ UA #### [address] [address] Calcium [Mass/Vol] 8.3 mg/dL Low 8.4-10.2 [facility] Comment on above: Performed By: #### Gabriel SAEZ UA #### [address] [address] Chloride [Moles/Vol] 101 mmol/L Normal 98-107 [facility] Comment on above: Performed By: #### Gabriel SAEZ UA #### [address] [address] CO2 [Moles/Vol] 27 mmol/L Normal 23-31 [facility] Comment on above: Performed By: #### Gabriel SAEZ UA #### [address] [address] Creatinine [Mass/Vol] 0.76 mg/dL Normal 0.70-1.30 [facility] Comment on above: Result Comment: Test ing performed on Siemens Dimension EXL analyzer using a modified kinetic Tri technique. Performed By: #### Gabriel SAEZ UA #### [address] [address] Electrolyte Balance 6.0 mEq/L Normal 4.0-15.0 [facility] Comment on above: Performed By: #### U SE, UA #### [address] [address] Glucose [Mass/Vol] 82 mg/dL Normal 80-115 [facility] Comment on above: Performed By: #### Gabriel SAEZ UA #### [place] [id number] [place], [place] [address] Potassium [Moles/Vol] 3.6 mmol/L Normal 3.5-5.1 [facility] Comment on above: Performed By: #### Gabriel SAEZ UA #### [address] [address] Sodium [Moles/Vol] 134 mmol/L Low 136-145 [facility] Comment on above: Performed By: #### Gabriel SAEZ UA #### [address] [address] Urea nitrogen [Mass/Vol] 7 mg/dL Normal 7-18 [facility] Comment on above: Performed By: #### Gabriel SAEZ UA #### [address] [address] HFPon 10-12-2024 Bili Indirect 0.6 mg/dL Normal [facility] Comment on above: Performed By: #### Blanche TAYLOR #### [address] [address] Albumin Level 2.0 G/dL Low 3.4-4.8 [facility] Comment on above: Performed By: #### Blanche TAYLOR #### [address] [address] Albumin/Globulin [Mass ratio] 0.5 {ratio} Low 1.1-2.5 [facility] Comment on above: Performed By: #### Blanche TAYLOR #### [address] [address] ALP [Catalytic activity/Vol] 161 U/L High 40-135 [facility] Comment on above: Performed By: #### Blanche TAYLOR #### [address] [address] ALT [Catalytic activity/Vol] 60 U/L Normal 16-63 [facility] Comment on above: Performed By: #### R ESCVID #### [place] [address] AST [Catalytic activity/Vol] 289 U/L High 10-40 [facility] Comment on above: Performed By: #### R ESCVID #### [place] [address] Bili Direct 3.0 mg/dL High 0.0-0.2 [facility] Comment on above: Result Comment: Use of this assay is not recommended for patients undergoing treatment with eltrombopag due to the potential for falsely elevated results. Performed By: #### R ESCVID #### [place] [address] Bili Total 3.6 mg/dL High 0.2-1.0 [facility] Comment on above: Result Comment: Use of this assay is not recommended for patients undergoing treatment with eltrombopag due to the potential for falsely elevated results. Performed By: #### R ESCVID #### [place] [address] Globulin 4.3 G/dL High 1.5-3.8 [facility] Comment on above: Performed By: #### R ESCVID #### [place] [address] Total Protein 6.3 G/dL Low 6.4-8.2 [facility] Comment on above: Performed By: #### R ESCVID #### [place] [address] LABORATORYOrdered By: SYSTEM SYSTEM on 10-12-2024 Albumin [...] 10-12-2024 Magnesium [Mass/Vol] 1.6 mg/dL Low 1.8-2.4 [facility] Comment on above: Performed By: #### R ESCVID #### [address] [address] .Auto Diffon 10-11-2024 Basophil, Absolute 0.0 10 3/mcL Normal 0.0-0.2 [facility] Comment on above: Performed By: #### B MP, CBC, ADIFF, GFR, ANEU, MG #### [address] [address] Basophils/100 WBC (Bld) 0.6 % Normal 0.0-2.5 [facility] Comment on above: Performed By: #### B MP, CBC, ADIFF, GFR, ANEU, MG #### [address] [address] Eosinophil, Absolute 0.0 10 3/mcL Normal 0.0-0.7 [facility] Comment on above: Performed By: #### B MP, CBC, ADIFF, GFR, ANEU, MG #### [address] [address] Eosinophils/100 WBC (Bld) 0.4 % Normal 0.0-7.0 [facility] Comment on above: Performed By: #### B MP, CBC, ADIFF, GFR, ANEU, MG #### [address] [address] Lymphocyte, Absolute 0.8 10 3/mcL Low 0.9-4.3 [facility] Comment on above: Performed By: #### B MP, CBC, ADIFF, GFR, ANEU, MG #### [address] [address] Lymphocytes/100 WBC (Bld) 21.7 % Normal 20.0-40.0 [facility] Comment on above: Performed By: #### B MP, CBC, ADIFF, GFR, ANEU, MG #### [address] [address] Monocyte, Absolute 0.3 10 3/mcL Normal 0.1-1.4 [facility] Comment on above: Performed By: #### B MP, CBC, ADIFF, GFR, ANEU, MG #### [address] [address] Monocytes/100 WBC (Bld) 7.8 % Normal 2.0-13.0 [facility] Comment on above: Performed By: #### B MP, CBC, ADIFF, GFR, ANEU, MG #### [address] [address] Neutrophils/100 WBC (Bld) 69.5 % Normal 50.0-75.0 [facility] Comment on above: Performed By: #### B MP, CBC, ADIFF, GFR, ANEU, MG #### [address] [address] .GFRon 10-11-2024 Estimated Glomerular Filtration Rate 104 ml/min/1.73sqm Normal [facility] Comment on above: Result Comment: [...] MP, CBC, ADIFF, GFR, ANEU, MG #### [address] [address] .NEUABSon 10-11-2024 Neutrophil, Absolute 2.5 10 3/mcL Normal 2.3-8.1 [facility] Comment on above: Performed By: #### B MP, CBC, ADIFF, GFR, ANEU, MG #### [address] [address] Noemí 10-11-2024 Ammonia (P) [Moles/Vol] 12 umol/L Normal 11-32 [facility] Comment on above: Performed By: #### B MP, CBC, ADIFF, GFR, ANEU, MG #### [address] [address] BGon 10-11-2024 Base excess Calc (Bld) [Moles/Vol] 3.0 mmol/L Normal [facility] Comment on above: Performed By: #### B MP, CBC, ADIFF, GFR, ANEU, MG #### [address] [address] CO2 [Moles/Vol] 26.8 mmol/L Normal 22.0-30.0 [facility] Comment on above: Performed By: #### B MP, CBC, ADIFF, GFR, ANEU, MG #### [address] [address] HCO3 (Bld) [Moles/Vol] 25.8 mmol/L Normal 21.0-29.0 [facility] Comment on above: Performed By: #### B MP, CBC, ADIFF, GFR, ANEU, MG #### [address] [address] Oxygen (Bld) [Partial pressure] 58.4 mm[Hg] Low 74.0-108.0 [facility] Comment on above: Performed By: #### B MP, CBC, ADIFF, GFR, ANEU, MG #### [address] [address] Oxygen saturation in Blood 90.5 % Low 92.0-96.0 [facility] Comment on above: Performed By: #### B MP, CBC, ADIFF, GFR, ANEU, MG #### [address] [address] pCO2 33.4 mmHg Normal 32.0-46.0 [facility] Comment on above: Performed By: #### B MP, CBC, ADIFF, GFR, ANEU, MG #### [address] [address] pH (Bld) 7.506 [pH] High 7.380-7.46 0 [facility] Comment on above: Performed By: #### B MP, CBC, ADIFF, GFR, ANEU, MG #### [address] [address] BMPon 10-11-2024 BUN/Creatinine Ratio 10 ratio Normal 7-27 [facility] Comment on above: Performed By: #### B MP, CBC, ADIFF, GFR, ANEU, MG #### [address] [address] Calcium [Mass/Vol] 8.3 mg/dL Low 8.4-10.2 [facility] Comment on above: Performed By: #### B MP, CBC, ADIFF, GFR, ANEU, MG #### [address] [address] Chloride [Moles/Vol] 100 mmol/L Normal 98-107 [facility] Comment on above: Performed By: #### B MP, CBC, ADIFF, GFR, ANEU, MG #### [address] [address] CO2 [Moles/Vol] 28 mmol/L Normal 23-31 [facility] Comment on above: Performed By: #### B MP, CBC, ADIFF, GFR, ANEU, MG #### [address] [address] Creatinine [Mass/Vol] 0.67 mg/dL Low 0.70-1.30 [facility] Comment on above: Result Comment: Test ing performed on Siemens Dimension EXL analyzer using a modified kinetic Tri technique. Performed By: #### B MP, CBC, ADIFF, GFR, ANEU, MG #### [address] [address] Electrolyte Balance 7.0 mEq/L Normal 4.0-15.0 [facility] Comment on above: Performed By: #### B MP, CBC, ADIFF, GFR, ANEU, MG #### [address] [address] Glucose [Mass/Vol] 80 mg/dL Normal 80-115 [facility] Comment on above: Performed By: #### B MP, CBC, ADIFF, GFR, ANEU, MG #### [address] [address] Potassium [Moles/Vol] 3.7 mmol/L Normal 3.5-5.1 [facility] Comment on above: Performed By: #### B MP, CBC, ADIFF, GFR, ANEU, MG #### [address] [address] Sodium [Moles/Vol] 135 mmol/L Low 136-145 [facility] Comment on above: Performed By: #### B MP, CBC, ADIFF, GFR, ANEU, MG #### [address] [address] Urea nitrogen [Mass/Vol] 7 mg/dL Normal 7-18 [facility] Comment on above: Performed By: #### B MP, CBC, ADIFF, GFR, ANEU, MG #### [address] [address] CBCon 10-11-2024 Erythrocyte distribution width (RBC) [Ratio] 15.2 % Normal 11.5-15.5 [facility] Comment on above: Performed By: #### B MP, CBC, ADIFF, GFR, ANEU, MG #### [address] [address] Hematocrit (Bld) [Volume fraction] 30.7 % Low 40.0-52.0 [facility] Comment on above: Performed By: #### B MP, CBC, ADIFF, GFR, ANEU, MG #### [place] [id number] Hgb 10.4 G/dL Low 13.0-17.5 [facility] Comment on above: Performed By: #### B MP, CBC, ADIFF, GFR, ANEU, MG #### [address] [address] MCH (RBC) [Entitic mass] 35.1 pg High 27.0-33.0 [facility] Comment on above: Performed By: #### B MP, CBC, ADIFF, GFR, ANEU, MG #### [address] [address] MCHC 34.0 G/dL Normal 32.0-36.0 [facility] Comment on above: Performed By: #### B MP, CBC, ADIFF, GFR, ANEU, MG #### [address] [address] MCV (RBC) [Entitic vol] 103.2 fL High 81.0-100.0 [facility] Comment on above: Performed By: #### B MP, CBC, ADIFF, GFR, ANEU, MG #### [address] [address] Platelet 111 10 3/mcL Low 150-450 [facility] Comment on above: Performed By: #### B MP, CBC, ADIFF, GFR, ANEU, MG #### [address] [address] Platelet mean volume (Bld) [Entitic vol] 9.6 fL Normal 6.4-10.5 [facility] Comment on above: Performed By: #### B MP, CBC, ADIFF, GFR, ANEU, MG #### [place] [address] RBC 2.97 10 6/mcL Low 4.50-6.00 [facility] Comment on above: Performed By: #### B MP, CBC, ADIFF, GFR, ANEU, MG #### [place] [address] WBC 3.5 10 3/mcL Low 4.5-10.8 [facility] Comment on above: Performed By: #### B MP, CBC, ADIFF, GFR, ANEU, MG #### [place] [address] HFPon 10-11-2024 Bili Indirect 0.6 mg/dL Normal [facility] Comment on above: Performed By: #### B MP, CBC, ADIFF, GFR, ANEU, MG #### [place] [address] Albumin Level 2.0 G/dL Low 3.4-4.8 [facility] Comment on above: Performed By: #### B MP, CBC, ADIFF, GFR, ANEU, MG #### [place] [address] Albumin/Globulin [Mass ratio] 0.4 {ratio} Low 1.1-2.5 [facility] Comment on above: Performed By: #### B MP, CBC, ADIFF, GFR, ANEU, MG #### [place] [address] ALP [Catalytic activity/Vol] 144 U/L High 40-135 [facility] Comment on above: Performed By: #### B MP, CBC, ADIFF, GFR, ANEU, MG #### [place] [address] ALT [Catalytic activity/Vol] 56 U/L Normal 16-63 [facility] Comment on above: Performed By: #### B MP, CBC, ADIFF, GFR, ANEU, MG #### [place] [id number] AST [Catalytic activity/Vol] 303 U/L High 10-40 [facility] Comment on above: Performed By: #### B MP, CBC, ADIFF, GFR, ANEU, MG #### [place] [address] Bili Direct 2.6 mg/dL High 0.0-0.2 [facility] Comment on above: Result Comment: Use of this assay is not recommended for patients undergoing treatment with eltrombopag due to the potential for falsely elevated results. Performed By: #### B MP, CBC, ADIFF, GFR, ANEU, MG #### [place] [address] Bili Total 3.2 mg/dL High 0.2-1.0 [facility] Comment on above: Result Comment: Use of this assay is not recommended for patients undergoing treatment with eltrombopag due to the potential for falsely elevated results. Performed By: #### B MP, CBC, ADIFF, GFR, ANEU, MG #### [place] [address] Globulin 4.5 G/dL High 1.5-3.8 [facility] Comment on above: Performed By: #### B MP, CBC, ADIFF, GFR, ANEU, MG #### [place] [address] Total Protein 6.5 G/dL Normal 6.4-8.2 [facility] Comment on above: Performed By: #### B MP, CBC, ADIFF, GFR, ANEU, MG #### [place] [address] LABORATORYOrdered By: Elliott Vitale on 10-11-2024 CO2 [...] Comment on above: Interpretive Data: Paul isbell [employer] (CHEST, 1991, 102:[id number]) [...] 10-11-2024 Magnesium [Mass/Vol] 1.6 mg/dL Low 1.8-2.4 [facility] Comment on above: Performed By: #### B MP, CBC, ADIFF, GFR, ANEU, MG #### [address] [address] PROon 10-11-2024 PT Coag (PPP) [Time] 14.4 s Normal 9.0-14.4 [facility] Comment on above: Performed By: #### B MP, CBC, ADIFF, GFR, ANEU, MG #### [address] [address] PT International Ratio 1.2 Normal [facility] Comment on above: Result Comment: [employer] (CHEST, 1992, 102:[id number]) recommended therapeutic range for oral anticoagulant therapy is: LOW RISK: Prophylaxis of venous thrombosis INR: 2.0-3.0 Treatment of pulmonary embolism 2.0-3.0 Prevention of systemic embolism 2.0-3.0 HIGH RISK: Mechanical prosthetic valves 2.5-3.5 Performed By: #### B MP, CBC, ADIFF, GFR, ANEU, MG #### [address] [address] .Auto Diffon 10-10-2024 Basophil, Absolute 0.0 10 3/mcL Normal 0.0-0.2 [facility] Comment on above: Performed By: #### B MP, CBC, ADIFF, GFR, ANEU, MG #### [address] [address] Basophils/100 WBC (Bld) 0.9 % Normal 0.0-2.5 [facility] Comment on above: Performed By: #### B MP, CBC, ADIFF, GFR, ANEU, MG #### [address] [address] Eosinophil, Absolute 0.0 10 3/mcL Normal 0.0-0.7 [facility] Comment on above: Performed By: #### B MP, CBC, ADIFF, GFR, ANEU, MG #### [address] [address] Eosinophils/100 WBC (Bld) 0.2 % Normal 0.0-7.0 [facility] Comment on above: Performed By: #### B MP, CBC, ADIFF, GFR, ANEU, MG #### [address] [address] Lymphocyte, Absolute 0.8 10 3/mcL Low 0.9-4.3 [facility] Comment on above: Performed By: #### B MP, CBC, ADIFF, GFR, ANEU, MG #### [address] [address] Lymphocytes/100 WBC (Bld) 23.8 % Normal 20.0-40.0 [facility] Comment on above: Performed By: #### B MP, CBC, ADIFF, GFR, ANEU, MG #### [address] [address] Monocyte, Absolute 0.3 10 3/mcL Normal 0.1-1.4 [facility] Comment on above: Performed By: #### B MP, CBC, ADIFF, GFR, ANEU, MG #### [address] [address] Monocytes/100 WBC (Bld) 7.8 % Normal 2.0-13.0 [facility] Comment on above: Performed By: #### B MP, CBC, ADIFF, GFR, ANEU, MG #### [address] [address] Neutrophils/100 WBC (Bld) 67.3 % Normal 50.0-75.0 [facility] Comment on above: Performed By: #### B MP, CBC, ADIFF, GFR, ANEU, MG #### [address] [address] .GFRon 10-10-2024 Estimated Glomerular Filtration Rate 104 ml/min/1.73sqm Normal [facility] Comment on above: Result Comment: [...] MP, CBC, ADIFF, GFR, ANEU, MG #### [place] [address] .Morphon 10-10-2024 Anisocytosis Ql (Bld) 1+ Normal [facility] Comment on above: Performed By: #### B MP, CBC, ADIFF, GFR, ANEU, MG #### [place] [address] Macrocytosis 1+ Normal [facility] Comment on above: Performed By: #### B MP, CBC, ADIFF, GFR, ANEU, MG #### [place] [address] Platelet Estimate Decreased Normal [facility] Comment on above: Performed By: #### B MP, CBC, ADIFF, GFR, ANEU, MG #### [place] [address] Target Cell 1+ Normal [facility] Comment on above: Performed By: #### B MP, CBC, ADIFF, GFR, ANEU, MG #### [place] [address] .NEUABSon 10-10-2024 Neutrophil, Absolute 2.3 10 3/mcL Normal 2.3-8.1 [facility] Comment on above: Performed By: #### B MP, CBC, ADIFF, GFR, ANEU, MG #### [address] [address] Noemí 10-10-2024 Ammonia (P) [Moles/Vol] 17 umol/L Normal 11-32 [facility] Comment on above: Performed By: #### U AMICAO, UA #### [address] [address] BMPon 10-10-2024 BUN/Creatinine Ratio 9 ratio Normal 7-27 [facility] Comment on above: Performed By: #### B MP, CBC, ADIFF, GFR, ANEU, MG #### [place] [address] Calcium [Mass/Vol] 8.4 mg/dL Normal 8.4-10.2 [facility] Comment on above: Performed By: #### B MP, CBC, ADIFF, GFR, ANEU, MG #### [place] [address] Chloride [Moles/Vol] 101 mmol/L Normal 98-107 [facility] Comment on above: Performed By: #### B MP, CBC, ADIFF, GFR, ANEU, MG #### [address] [address] CO2 [Moles/Vol] 29 mmol/L Normal 23-31 [facility] Comment on above: Performed By: #### B MP, CBC, ADIFF, GFR, ANEU, MG #### [address] [address] Creatinine [Mass/Vol] 0.67 mg/dL Low 0.70-1.30 [facility] Comment on above: Result Comment: Test ing performed on Siemens Dimension EXL analyzer using a modified kinetic Tri technique. Performed By: #### B MP, CBC, ADIFF, GFR, ANEU, MG #### [place] [address] Electrolyte Balance 8.0 mEq/L Normal 4.0-15.0 [facility] Comment on above: Performed By: #### B MP, CBC, ADIFF, GFR, ANEU, MG #### [address] [address] Glucose [Mass/Vol] 79 mg/dL Low 80-115 [facility] Comment on above: Performed By: #### B MP, CBC, ADIFF, GFR, ANEU, MG #### [place] [id number] Potassium [Moles/Vol] 2.8 mmol/L Low 3.5-5.1 [facility] Comment on above: Performed By: #### B MP, CBC, ADIFF, GFR, ANEU, MG #### [place] [address] Sodium [Moles/Vol] 138 mmol/L Normal 136-145 [facility] Comment on above: Performed By: #### B MP, CBC, ADIFF, GFR, ANEU, MG #### [place] [address] Urea nitrogen [Mass/Vol] 6 mg/dL Low 7-18 [facility] Comment on above: Performed By: #### B MP, CBC, ADIFF, GFR, ANEU, MG #### [place] [id number] CBCon 10-10-2024 Erythrocyte distribution width (RBC) [Ratio] 15.4 % Normal 11.5-15.5 [facility] Comment on above: Performed By: #### B MP, CBC, ADIFF, GFR, ANEU, MG #### [address] [address] Hematocrit (Bld) [Volume fraction] 28.2 % Low 40.0-52.0 [facility] Comment on above: Performed By: #### B MP, CBC, ADIFF, GFR, ANEU, MG #### [place] [address] Hgb 9.5 G/dL Low 13.0-17.5 [facility] Comment on above: Performed By: #### B MP, CBC, ADIFF, GFR, ANEU, MG #### [address] [address] MCH (RBC) [Entitic mass] 34.9 pg High 27.0-33.0 [facility] Comment on above: Performed By: #### B MP, CBC, ADIFF, GFR, ANEU, MG #### [place] [address] MCHC 33.5 G/dL Normal 32.0-36.0 [facility] Comment on above: Performed By: #### B MP, CBC, ADIFF, GFR, ANEU, MG #### [place] [address] MCV (RBC) [Entitic vol] 104.3 fL High 81.0-100.0 [facility] Comment on above: Performed By: #### B MP, CBC, ADIFF, GFR, ANEU, MG #### [place] [address] Platelet 96 10 3/mcL Low 150-450 [facility] Comment on above: Performed By: #### B MP, CBC, ADIFF, GFR, ANEU, MG #### [place] [address] Platelet mean volume (Bld) [Entitic vol] 10.1 fL Normal 6.4-10.5 [facility] Comment on above: Performed By: #### B MP, CBC, ADIFF, GFR, ANEU, MG #### [place] [address] RBC 2.71 10 6/mcL Low 4.50-6.00 [facility] Comment on above: Performed By: #### B MP, CBC, ADIFF, GFR, ANEU, MG #### [place] [address] WBC 3.4 10 3/mcL Low 4.5-10.8 [facility] Comment on above: Performed By: #### B MP, CBC, ADIFF, GFR, ANEU, MG #### [address] [address] [address] HEAD OR BRAIN W/O CONTRAS Ton [...] 4:34:44 PM Ordering Provider: CINDY BAILEY Normal [facility] HFPon 10-10-2024 Bili Indirect 0.4 mg/dL Normal [facility] Comment on above: Performed By: #### B MP, CBC, ADIFF, GFR, ANEU, MG #### [address] [address] Albumin Level 2.0 G/dL Low 3.4-4.8 [facility] Comment on above: Performed By: #### B MP, CBC, ADIFF, GFR, ANEU, MG #### [place] [address] Albumin/Globulin [Mass ratio] 0.5 {ratio} Low 1.1-2.5 [facility] Comment on above: Performed By: #### B MP, CBC, ADIFF, GFR, ANEU, MG #### [place] [address] ALP [Catalytic activity/Vol] 116 U/L Normal 40-135 [facility] Comment on above: Performed By: #### B MP, CBC, ADIFF, GFR, ANEU, MG #### [place] [address] ALT [Catalytic activity/Vol] 52 U/L Normal 16-63 [facility] Comment on above: Performed By: #### B MP, CBC, ADIFF, GFR, ANEU, MG #### [place] [address] AST [Catalytic activity/Vol] 270 U/L High 10-40 [facility] Comment on above: Performed By: #### B MP, CBC, ADIFF, GFR, ANEU, MG #### [place] [address] Bili Direct 2.5 mg/dL High 0.0-0.2 [facility] Comment on above: Result Comment: Use of this assay is not recommended for patients undergoing treatment with eltrombopag due to the potential for falsely elevated results. Performed By: #### B MP, CBC, ADIFF, GFR, ANEU, MG #### [place] [address] Bili Total 2.9 mg/dL High 0.2-1.0 [facility] Comment on above: Result Comment: Use of this assay is not recommended for patients undergoing treatment with eltrombopag due to the potential for falsely elevated results. Performed By: #### B MP, CBC, ADIFF, GFR, ANEU, MG #### [place] [address] Globulin 4.0 G/dL High 1.5-3.8 [facility] Comment on above: Performed By: #### B MP, CBC, ADIFF, GFR, ANEU, MG #### [facility] [address] [place], [place] [address] Total Protein 6.0 G/dL Low 6.4-8.2 [facility] Comment on above: Performed By: #### B MP, CBC, ADIFF, GFR, ANEU, MG #### [facility] [address] [place], [place] [address] LABORATORYOrdered By: SYSTEM SYSTEM on 10-10-2024 Ammonia [...] 10-10-2024 Magnesium [Mass/Vol] 1.5 mg/dL Low 1.8-2.4 [facility] Comment on above: Performed By: #### B MP, CBC, ADIFF, GFR, ANEU, MG #### [facility] [address] [place], [place] [address] RESCVIDon 10-10-2024 Adenovirus Not detected Normal Not Detected [facility] Comment on above: Performed By: #### R ESCVID #### [facility] [address] [place] [address] Bordetella Parapertussis Not detected Normal Not Detected [facility] Comment on above: Performed By: #### R ESCVID #### [facility] [address] [place] [address] Bordetella Pertussis Not detected Normal Not Detected [facility] Comment on above: Performed By: #### R ESCVID #### [facility] [address] [place] [address] Chlamydophila pneumoniae Not detected Normal Not Detected [facility] Comment on above: Performed By: #### R ESCVID #### [facility] [address] [place] [address] Coronavirus 229E (Not COVID-19) Not detected Normal Not Detected [facility] Comment on above: Performed By: #### R ESCVID #### [facility] [address] [place], [place] [id number] Coronavirus HKU1 (Not COVID-19) Not detected Normal Not Detected [facility] Comment on above: Performed By: #### R ESCVID #### [facility] [address] [place], [place] [id number] Coronavirus NL63 (Not COVID-19) Not detected Normal Not Detected [facility] Comment on above: Performed By: #### R ESCVID #### [facility] [address] [place], [place] [id number] Coronavirus OC43 (Not COVID-19) Not detected Normal Not Detected [facility] Comment on above: Performed By: #### R ESCVID #### [facility] [address] [place] [address] Human Metapneumovirus Not detected Normal Not Detected [facility] Comment on above: Performed By: #### R ESCVID #### [facility] [address] [place] [address] Influenza A H1-2009 Detected Abnormal Not Detected [facility] Comment on above: Performed By: #### R ESCVID #### [facility] [address] [place] [address] Influenza B Not detected Normal Not Detected [facility] Comment on above: Performed By: #### R ESCVID #### [facility] [address] [place], [place] [id number] Mycoplasma pneumoniae Not detected Normal Not Detected [facility] Comment on above: Performed By: #### R ESCVID #### [facility] [address] [place] [address] Parainfluenza 1 Not detected Normal Not Detected [facility] Comment on above: Performed By: #### R ESCVID #### [facility] [address] [place], [place] [id number] Parainfluenza 2 Not detected Normal Not Detected [facility] Comment on above: Performed By: #### R ESCVID #### [facility] [address] [place] [address] Parainfluenza 3 Not detected Normal Not Detected [facility] Comment on above: Performed By: #### R ESCVID #### [facility] [address] [place] [address] Parainfluenza 4 Not detected Normal Not Detected [facility] Comment on above: Performed By: #### R ESCVID #### [place] [address] Respiratory Syncytial Virus Not detected Normal Not Detected [facility] Comment on above: Performed By: #### R ESCVID #### [place] [address] Rhinovirus/Enterovirus Not detected Normal Not Detected [facility] Comment on above: Performed By: #### R ESCVID #### [place] [address] SARS-CoV-2 (COVID-19) RNA VIVIANE+probe Ql (Unsp spec) Not detected Normal Not Detected [facility] Comment on above: Result Comment: This assay has been validated in the [facility] for use with nasopharyngeal specimens in [facility] If a non-validated specimen or test collection [...] authorities. Performed By: #### R ESCVID #### [address] [address] .Auto Diffon 10-09-2024 Basophil, Absolute 0.0 10 3/mcL Normal 0.0-0.2 [facility] Comment on above: Performed By: #### B MP, CBC, ADIFF, GFR, ANEU, MG #### [address] [address] Basophils/100 WBC (Bld) 1.1 % Normal 0.0-2.5 [facility] Comment on above: Performed By: #### B MP, CBC, ADIFF, GFR, ANEU, MG #### [address] [address] Eosinophil, Absolute 0.0 10 3/mcL Normal 0.0-0.7 [facility] Comment on above: Performed By: #### B MP, CBC, ADIFF, GFR, ANEU, MG #### [address] [address] Eosinophils/100 WBC (Bld) 0.1 % Normal 0.0-7.0 [facility] Comment on above: Performed By: #### B MP, CBC, ADIFF, GFR, ANEU, MG #### [address] [address] Lymphocyte, Absolute 0.5 10 3/mcL Low 0.9-4.3 [facility] Comment on above: Performed By: #### B MP, CBC, ADIFF, GFR, ANEU, MG #### [address] [address] Lymphocytes/100 WBC (Bld) 12.0 % Low 20.0-40.0 [facility] Comment on above: Performed By: #### B MP, CBC, ADIFF, GFR, ANEU, MG #### [address] [address] Monocyte, Absolute 0.4 10 3/mcL Normal 0.1-1.4 [facility] Comment on above: Performed By: #### B MP, CBC, ADIFF, GFR, ANEU, MG #### [address] [address] Monocytes/100 WBC (Bld) 11.3 % Normal 2.0-13.0 [facility] Comment on above: Performed By: #### B MP, CBC, ADIFF, GFR, ANEU, MG #### [address] [address] Neutrophils/100 WBC (Bld) 75.5 % High 50.0-75.0 [facility] Comment on above: Performed By: #### B MP, CBC, ADIFF, GFR, ANEU, MG #### [address] [address] .GFRon 10-09-2024 Estimated Glomerular Filtration Rate 105 ml/min/1.73sqm Normal [facility] Comment on above: Result Comment: [...] MP, CBC, ADIFF, GFR, ANEU, MG #### [address] [address] .NEUABSon 10-09-2024 Neutrophil, Absolute 3.0 10 3/mcL Normal 2.3-8.1 [facility] Comment on above: Performed By: #### B MP, CBC, ADIFF, GFR, ANEU, MG #### [address] [address] BMPon 10-09-2024 BUN/Creatinine Ratio 8 ratio Normal 7-27 [facility] Comment on above: Performed By: #### B MP, CBC, ADIFF, GFR, ANEU, MG #### [address] [address] Calcium [Mass/Vol] 8.1 mg/dL Low 8.4-10.2 [facility] Comment on above: Performed By: #### B MP, CBC, ADIFF, GFR, ANEU, MG #### [address] [address] Chloride [Moles/Vol] 99 mmol/L Normal 98-107 [facility] Comment on above: Performed By: #### B MP, CBC, ADIFF, GFR, ANEU, MG #### [address] [address] CO2 [Moles/Vol] 26 mmol/L Normal 23-31 [facility] Comment on above: Performed By: #### B MP, CBC, ADIFF, GFR, ANEU, MG #### [address] [address] Creatinine [Mass/Vol] 0.65 mg/dL Low 0.70-1.30 [facility] Comment on above: Result Comment: Test ing performed on Siemens Dimension EXL analyzer using a modified kinetic Tri technique. Performed By: #### B MP, CBC, ADIFF, GFR, ANEU, MG #### [address] [address] Electrolyte Balance 9.0 mEq/L Normal 4.0-15.0 [facility] Comment on above: Performed By: #### B MP, CBC, ADIFF, GFR, ANEU, MG #### [address] [address] Glucose [Mass/Vol] 103 mg/dL Normal 80-115 [facility] Comment on above: Performed By: #### B MP, CBC, ADIFF, GFR, ANEU, MG #### [place] [address] Potassium [Moles/Vol] 3.0 mmol/L Low 3.5-5.1 [facility] Comment on above: Performed By: #### B MP, CBC, ADIFF, GFR, ANEU, MG #### [place] [address] Sodium [Moles/Vol] 134 mmol/L Low 136-145 [facility] Comment on above: Performed By: #### B MP, CBC, ADIFF, GFR, ANEU, MG #### [place] [address] Urea nitrogen [Mass/Vol] 5 mg/dL Low 7-18 [facility] Comment on above: Performed By: #### B MP, CBC, ADIFF, GFR, ANEU, MG #### [address] [address] CBCon 10-09-2024 Erythrocyte distribution width (RBC) [Ratio] 14.6 % Normal 11.5-15.5 [facility] Comment on above: Performed By: #### B MP, CBC, ADIFF, GFR, ANEU, MG #### [place] [address] Hematocrit (Bld) [Volume fraction] 24.8 % Low 40.0-52.0 [facility] Comment on above: Performed By: #### B MP, CBC, ADIFF, GFR, ANEU, MG #### [place] [id number] Hgb 9.0 G/dL Low 13.0-17.5 [facility] Comment on above: Performed By: #### B MP, CBC, ADIFF, GFR, ANEU, MG #### [address] [address] MCH (RBC) [Entitic mass] 36.7 pg High 27.0-33.0 [facility] Comment on above: Performed By: #### B MP, CBC, ADIFF, GFR, ANEU, MG #### [place] [address] MCHC 36.1 G/dL High 32.0-36.0 [facility] Comment on above: Performed By: #### B MP, CBC, ADIFF, GFR, ANEU, MG #### [place] [address] MCV (RBC) [Entitic vol] 101.7 fL High 81.0-100.0 [facility] Comment on above: Performed By: #### B MP, CBC, ADIFF, GFR, ANEU, MG #### [place] [address] Platelet 246 10 3/mcL Normal 150-450 [facility] Comment on above: Performed By: #### B MP, CBC, ADIFF, GFR, ANEU, MG #### [place] [address] Platelet mean volume (Bld) [Entitic vol] 8.9 fL Normal 6.4-10.5 [facility] Comment on above: Performed By: #### B MP, CBC, ADIFF, GFR, ANEU, MG #### [place] [address] RBC 2.44 10 6/mcL Low 4.50-6.00 [facility] Comment on above: Performed By: #### B MP, CBC, ADIFF, GFR, ANEU, MG #### [place] [address] WBC 4.0 10 3/mcL Low 4.5-10.8 [facility] Comment on above: Performed By: #### B MP, CBC, ADIFF, GFR, ANEU, MG #### [facility] [address] [place], [place] [address] LABORATORYOrdered By: SYSTEM SYSTEM on 10-09-2024 Basophils [...] 10-09-2024 Magnesium [Mass/Vol] 1.6 mg/dL Low 1.8-2.4 [facility] Comment on above: Performed By: #### B MP, CBC, ADIFF, GFR, ANEU, MG #### [address] [address] .Auto Diffon 10-08-2024 Basophil, Absolute 0.1 10 3/mcL Normal 0.0-0.2 [facility] Comment on above: Performed By: #### B MP, CBC, ADIFF, GFR, ANEU, MG #### [address] [address] Basophils/100 WBC (Bld) 1.4 % Normal 0.0-2.5 [facility] Comment on above: Performed By: #### B MP, CBC, ADIFF, GFR, ANEU, MG #### [address] [address] Eosinophil, Absolute 0.0 10 3/mcL Normal 0.0-0.7 [facility] Comment on above: Performed By: #### B MP, CBC, ADIFF, GFR, ANEU, MG #### [address] [address] Eosinophils/100 WBC (Bld) 0.1 % Normal 0.0-7.0 [facility] Comment on above: Performed By: #### B MP, CBC, ADIFF, GFR, ANEU, MG #### [address] [address] Lymphocyte, Absolute 0.4 10 3/mcL Low 0.9-4.3 [facility] Comment on above: Performed By: #### B MP, CBC, ADIFF, GFR, ANEU, MG #### [address] [address] Lymphocytes/100 WBC (Bld) 8.2 % Low 20.0-40.0 [facility] Comment on above: Performed By: #### B MP, CBC, ADIFF, GFR, ANEU, MG #### [address] [address] Monocyte, Absolute 0.6 10 3/mcL Normal 0.1-1.4 [facility] Comment on above: Performed By: #### B MP, CBC, ADIFF, GFR, ANEU, MG #### [address] [address] Monocytes/100 WBC (Bld) 12.1 % Normal 2.0-13.0 [facility] Comment on above: Performed By: #### B MP, CBC, ADIFF, GFR, ANEU, MG #### [address] [address] Neutrophils/100 WBC (Bld) 78.2 % High 50.0-75.0 [facility] Comment on above: Performed By: #### B MP, CBC, ADIFF, GFR, ANEU, MG #### [address] [address] .GFRon 10-08-2024 Estimated Glomerular Filtration Rate 66 ml/min/1.73sqm Normal [facility] Comment on above: Result Comment: [...] MP, CBC, ADIFF, GFR, ANEU, MG #### [place] [address] .MDWon 10-08-2024 Monocyte Distribution Width 24.76 High 0.00-20.00 [facility] Comment on above: Result Comment: For adults in ED, MDW>20.0 may be associated with a higher risk of sepsis during the first 12hrs of hospital admission Performed By: #### B MP, CBC, ADIFF, GFR, ANEU, MG #### [place] [address] .NEUABSon 10-08-2024 Neutrophil, Absolute 3.8 10 3/mcL Normal 2.3-8.1 [facility] Comment on above: Performed By: #### B MP, CBC, ADIFF, GFR, ANEU, MG #### [place] [address] .Urinalysis Microscopic (AO) on 10-08-2024 UA Coarse Granular Casts 0-5 Abnormal [facility] Comment on above: Performed By: #### B MP, CBC, ADIFF, GFR, ANEU, MG #### [place] [address] UA Hyal Cast 0-5 Abnormal [facility] Comment on above: Performed By: #### B MP, CBC, ADIFF, GFR, ANEU, MG #### [place] [address] UA Mucous 3+ /hpf Normal [facility] Comment on above: Performed By: #### B MP, CBC, ADIFF, GFR, ANEU, MG #### [place] [address] UA RBC 0-5 Abnormal None Seen [facility] Comment on above: Performed By: #### B MP, CBC, ADIFF, GFR, ANEU, MG #### [place] [address] UA Squam Epithelial 0-5 Abnormal None Seen [facility] Comment on above: Performed By: #### B MP, CBC, ADIFF, GFR, ANEU, MG #### [address] [address] UA WBC 15-25 Abnormal None Seen [facility] Comment on above: Performed By: #### B MP, CBC, ADIFF, GFR, ANEU, MG #### [address] [address] ACETAon 10-08-2024 Acetaminophen [Mass/Vol] 0.0 ug/mL Low 10.0-30.0 [facility] Comment on above: Performed By: #### S AL, ACETA, ALC #### [address] [address] Linda 10-08-2024 Ethanol Level <3 Normal [facility] Comment on above: Performed By: #### U SE UA #### [address] [address] Noemí 10-08-2024 Ammonia (P) [Moles/Vol] 20 umol/L Normal 11-32 [facility] Comment on above: Performed By: #### CARA MAYNARD #### [address] [address] APTTon 10-08-2024 aPTT Coag (Bld) [Time] 35.7 s High 25.0-35.0 [facility] Comment on above: Result Comment: For Heparin anticoagulation therapy, the recommended therapeutic range is: 45.4-75.9 seconds. Patients on heparin therapy may have an extreme result. Performed By: #### B MP, CBC, ADIFF, GFR, ANEU, MG #### [address] [address] CBCon 10-08-2024 Erythrocyte distribution width (RBC) [Ratio] 14.7 % Normal 11.5-15.5 [facility] Comment on above: Performed By: #### B MP, CBC, ADIFF, GFR, ANEU, MG #### [place] [id number] Hematocrit (Bld) [Volume fraction] 29.4 % Low 40.0-52.0 [facility] Comment on above: Performed By: #### B MP, CBC, ADIFF, GFR, ANEU, MG #### [place] [address] Hgb 10.2 G/dL Low 13.0-17.5 [facility] Comment on above: Performed By: #### B MP, CBC, ADIFF, GFR, ANEU, MG #### [place] [address] MCH (RBC) [Entitic mass] 35.5 pg High 27.0-33.0 [facility] Comment on above: Performed By: #### B MP, CBC, ADIFF, GFR, ANEU, MG #### [place] [address] MCHC 34.7 G/dL Normal 32.0-36.0 [facility] Comment on above: Performed By: #### B MP, CBC, ADIFF, GFR, ANEU, MG #### [place] [id number] MCV (RBC) [Entitic vol] 102.3 fL High 81.0-100.0 [facility] Comment on above: Performed By: #### B MP, CBC, ADIFF, GFR, ANEU, MG #### [place] [id number] Platelet 138 10 3/mcL Low 150-450 [facility] Comment on above: Performed By: #### B MP, CBC, ADIFF, GFR, ANEU, MG #### [place] [address] Platelet mean volume (Bld) [Entitic vol] 9.2 fL Normal 6.4-10.5 [facility] Comment on above: Performed By: #### B MP, CBC, ADIFF, GFR, ANEU, MG #### [place] [address] RBC 2.87 10 6/mcL Low 4.50-6.00 [facility] Comment on above: Performed By: #### B MP, CBC, ADIFF, GFR, ANEU, MG #### [address] [address] WBC 4.8 10 3/mcL Normal 4.5-10.8 [facility] Comment on above: Performed By: #### B MP, CBC, ADIFF, GFR, ANEU, MG #### [address] [address] CKon 10-08-2024 CK [Catalytic activity/Vol] 46 U/L Normal 39-308 [facility] Comment on above: Performed By: #### B MP, CBC, ADIFF, GFR, ANEU, MG #### [address] [address] CMPon 10-08-2024 Albumin Level 2.8 G/dL Low 3.4-4.8 [facility] Comment on above: Performed By: #### B MP, CBC, ADIFF, GFR, ANEU, MG #### [address] [address] Albumin/Globulin [Mass ratio] 0.6 {ratio} Low 1.1-2.5 [facility] Comment on above: Performed By: #### B MP, CBC, ADIFF, GFR, ANEU, MG #### [address] [address] ALP [Catalytic activity/Vol] 155 U/L High 40-135 [facility] Comment on above: Performed By: #### B MP, CBC, ADIFF, GFR, ANEU, MG #### [address] [address] ALT [Catalytic activity/Vol] 61 U/L Normal 16-63 [facility] Comment on above: Performed By: #### B MP, CBC, ADIFF, GFR, ANEU, MG #### [address] [address] AST [Catalytic activity/Vol] 266 U/L High 10-40 [facility] Comment on above: Performed By: #### B MP, CBC, ADIFF, GFR, ANEU, MG #### [address] [address] Bili Total 4.6 mg/dL High 0.2-1.0 [facility] Comment on above: Result Comment: Use of this assay is not recommended for patients undergoing treatment with eltrombopag due to the potential for falsely elevated results. Performed By: #### B MP, CBC, ADIFF, GFR, ANEU, MG #### [address] [address] BUN/Creatinine Ratio 5 ratio Low 7-27 [facility] Comment on above: Performed By: #### B MP, CBC, ADIFF, GFR, ANEU, MG #### [address] [address] Calcium [Mass/Vol] 8.9 mg/dL Normal 8.4-10.2 [facility] Comment on above: Performed By: #### B MP, CBC, ADIFF, GFR, ANEU, MG #### [address] [address] Chloride [Moles/Vol] 97 mmol/L Low 98-107 [facility] Comment on above: Performed By: #### B MP, CBC, ADIFF, GFR, ANEU, MG #### [address] [address] CO2 [Moles/Vol] 29 mmol/L Normal 23-31 [facility] Comment on above: Performed By: #### B MP, CBC, ADIFF, GFR, ANEU, MG #### [address] [address] Creatinine [Mass/Vol] 1.23 mg/dL Normal 0.70-1.30 [facility] Comment on above: Result Comment: Test ing performed on Siemens Dimension EXL analyzer using a modified kinetic Tri technique. Performed By: #### B MP, CBC, ADIFF, GFR, ANEU, MG #### [address] [place] [address] Electrolyte Balance 10.0 mEq/L Normal 4.0-15.0 [facility] Comment on above: Performed By: #### B MP, CBC, ADIFF, GFR, ANEU, MG #### [address] [address] Globulin 4.9 G/dL High 1.5-3.8 [facility] Comment on above: Performed By: #### B MP, CBC, ADIFF, GFR, ANEU, MG #### [address] [address] Glucose [Mass/Vol] 126 mg/dL High 80-115 [facility] Comment on above: Performed By: #### B MP, CBC, ADIFF, GFR, ANEU, MG #### [address] [address] Potassium [Moles/Vol] 3.2 mmol/L Low 3.5-5.1 [facility] Comment on above: Performed By: #### B MP, CBC, ADIFF, GFR, ANEU, MG #### [address] [address] Sodium [Moles/Vol] 136 mmol/L Normal 136-145 [facility] Comment on above: Performed By: #### B MP, CBC, ADIFF, GFR, ANEU, MG #### [address] [address] Total Protein 7.7 G/dL Normal 6.4-8.2 [facility] Comment on above: Performed By: #### B MP, CBC, ADIFF, GFR, ANEU, MG #### [address] [address] Urea nitrogen [Mass/Vol] 6 mg/dL Low 7-18 [facility] Comment on above: Performed By: #### B MP, CBC, ADIFF, GFR, ANEU, MG #### [address] [address] [address] HEAD OR BRAIN W/O CARMELOAS Teddy [...] 3:42:37 PM Ordering Provider: TONG PIZARRO Normal [facility] CVFLURVon 10-08-2024 FLU A PCR Positive Abnormal Negative [facility] Comment on above: Performed By: #### R ESCVID #### [place] [address] FLU B PCR Negative Normal Negative [facility] Comment on above: Performed By: #### R ESCVID #### [place] [address] RSV PCR Negative Normal Negative [facility] Comment on above: Performed By: #### R ESCVID #### [place] [address] SARS-CoV-2 (COVID-19) RNA VIVIANE+probe Ql (Unsp spec) Negative Normal Negative [facility] Comment on above: Result Comment: [...] results. Performed By: #### R ESCVID #### [place] [address] LABORATORYOrdered By: SYSTEM SYSTEM on 10-08-2024 Ammonia [...] Comment on above: Interpretive Data: Paul isbell [employer] (CHEST, 1992, [id number]) [...] ng/L Male: 0-76 ng/L Testing performed on Mempile using a homogeneous sandwich chemiluminescent immunoassay based on [employer] technology. TSH Qn 0.66 m[IU]/L Normal 0.36 [...] Detected AH Auto Viro/Sero SS B. parapertussis [id number] DNA VIVIANE+non-probe Ql (Nph) Not Detected *NA* [...] his assay has been validated in the [facility] for use with nasopharyngeal specimens in [facility] If a non-validated specimen or test collection [...] Lactic Acid Lvl 1.6 mmol/L Normal 0.4-2.0 [facility] [facility] Comment on above: Performed By: #### R ESCVID #### [place] [address] LIPon 10-08-2024 Lipase Level 17 U/L Normal 16-77 [facility] Comment on above: Performed By: #### B MP, CBC, ADIFF, GFR, ANEU, MG #### [address] [address] MGon 10-08-2024 Magnesium [Mass/Vol] 0.8 mg/dL Critically abnormal 1.8-2.4 [facility] Comment on above: Performed By: #### B MP, CBC, ADIFF, GFR, ANEU, MG #### [address] [address] No Panel Informationon 10-08 Culture Urine No growth at 48 hours. [facility] Work Phone: Microscopic examination of blood, culture Culture has been received in lab and is no growth to date. Routine cultures are held for 5 days. [facility] Work Phone: PBNPon 10-08-2024 Natriuretic peptide B (Bld) [Mass/Vol] 946 pg/mL High 0-125 [facility] Comment on above: Result Comment: NT-p roBNP results of less than 300 pg/mL effectively rules out acute congestive heart failure with 99% negative predictive value. Performed By: #### B MP, CBC, ADIFF, GFR, ANEU, MG #### [address] [address] PROon 10-08-2024 PT Coag (PPP) [Time] 15.4 s High 9.0-14.4 [facility] Comment on above: Performed By: #### B MP, CBC, ADIFF, GFR, ANEU, MG #### [address] [address] PT International Ratio 1.3 Normal [facility] Comment on above: Result Comment: The [employer] (CHEST, 1992, 102:312S-25S) recommended therapeutic range for oral anticoagulant therapy is: LOW RISK: Prophylaxis of venous thrombosis INR: 2.0-3.0 Treatment of pulmonary embolism 2.0-3.0 Prevention of systemic embolism 2.0-3.0 HIGH RISK: Mechanical prosthetic valves 2.5-3.5 Performed By: #### B MP, CBC, ADIFF, GFR, ANEU, MG #### [place] [address] SALon 10-08-2024 Salicylate Level <0.2 Low 2.8-20.0 [facility] Comment on above: Performed By: #### U AMICAO, UA #### [place] [address] TROPHSon 10-08-2024 High Sensitivity Troponin I 12 ng/L Normal 0-76 [facility] Comment on above: Result Comment: High Sensitive Troponin I Reference Ranges: Female: 0-51 ng/L Male: 0-76 ng/L Testing performed on Mempile using a homogeneous sandwich chemiluminescent immunoassay based on Pearlfection technology. Performed By: #### B MP, CBC, ADIFF, GFR, ANEU, MG #### [address] 10-08-2024 TSH Qn 0.66 m[IU]/L Normal 0.36-3.74 [facility] Comment on above: Performed By: #### B MP, CBC, ADIFF, GFR, ANEU, MG #### [address] 10-08-2024 Color (U) Brown Abnormal [facility] Comment on above: Performed By: #### B MP, CBC, ADIFF, GFR, ANEU, MG #### [place] [address] Glucose (U) [Mass/Vol] 100 mg/dL Abnormal Negative [facility] Comment on above: Performed By: #### B MP, CBC, ADIFF, GFR, ANEU, MG #### [place] [address] Ketones Ql (U) 15 mg/dL Abnormal Negative [facility] Comment on above: Performed By: #### B MP, CBC, ADIFF, GFR, ANEU, MG #### [address] Appear Cloudy Abnormal Clear [facility] Comment on above: Performed By: #### B MP, CBC, ADIFF, GFR, ANEU, MG #### [address] [address] UA Bili Large Abnormal Negative [facility] Comment on above: Result Comment: Sugg est correlation with serum bilirubin and clinical findings if medically necessary. Performed By: #### B MP, CBC, ADIFF, GFR, ANEU, MG #### [place] [address] UA Blood Trace Abnormal Negative [facility] Comment on above: Performed By: #### B MP, CBC, ADIFF, GFR, ANEU, MG #### [place] [address] UA Leuk Est Negative Normal Negative [facility] Comment on above: Performed By: #### B MP, CBC, ADIFF, GFR, ANEU, MG #### [place] [address] UA Nitrite Positive Abnormal Negative [facility] Comment on above: Performed By: #### B MP, CBC, ADIFF, GFR, ANEU, MG #### [place] [address] UA pH 5.5 Normal 5.0 - 8.0 [facility] Comment on above: Performed By: #### B MP, CBC, ADIFF, GFR, ANEU, MG #### [place] [address] UA Protein >=300 Abnormal Negative [facility] Comment on above: Performed By: #### B MP, CBC, ADIFF, GFR, ANEU, MG #### [place] [address] UA Spec Grav 1.025 Normal 1.015-1.02 5 [facility] Comment on above: Performed By: #### B MP, CBC, ADIFF, GFR, ANEU, MG #### [place] [address] UA Specimen Type Clean Catch Normal [facility] Comment on above: Performed By: #### B MP, CBC, ADIFF, GFR, ANEU, MG #### [place] [address] UA Urobilinogen >=8.0 Abnormal 0.2-1.0 [facility] Comment on above: Performed By: #### B MP, CBC, ADIFF, GFR, ANEU, MG #### [place] [address] UDRUGon 10-08-2024 Amphetamine (u) Negative Normal Negative [facility] Comment on above: Performed By: #### R ESCVID #### [place] [address] Barbiturate (u) Negative Normal Negative [facility] Comment on above: Performed By: #### R ESCVID #### [place] [id number] Benzodiazepine (u) Negative Normal Negative [facility] Comment on above: Performed By: #### R ESCVID #### [address] [address] Cannabinoid (u) Negative Normal Negative [facility] Comment on above: Performed By: #### R ESCVID #### [address] [address] Cocaine Ql (U) Negative Normal Negative [facility] Comment on above: Performed By: #### R ESCVID #### [address] [address] Methadone Ql (U) Negative Normal Negative [facility] Comment on above: Performed By: #### R ESCVID #### [address] [address] Opiate (u) Negative Normal Negative [facility] Comment on above: Performed By: #### R ESCVID #### [address] [address] PCP (u) Negative Normal Negative [facility] Comment on above: Performed By: #### R ESCVID #### [place] [address] Urine Drugs screened: See Below Normal [facility] Comment on above: Result Comment: This [...] ONLY. Performed By: #### R ESCVID #### [address] [address] XR CHEST 1 VIEWon 10-08-2024 XR CHEST [...] 3:39:16 PM Ordering Provider: TONG PIZARRO Normal [facility] .Auto Diffon 08-05-2024 Basophil, Absolute 0.0 10 3/mcL Normal 0.0-0.2 [facility] Comment on above: Performed By: #### B MP, CBC, ADIFF, GFR, ANEU, MG #### [place] [id number] [place], [place] [address] Basophils/100 WBC (Bld) 0.7 % Normal 0.0-2.5 [facility] Comment on above: Performed By: #### B MP, CBC, ADIFF, GFR, ANEU, MG #### [place] [address] Eosinophil, Absolute 0.0 10 3/mcL Normal 0.0-0.7 [facility] Comment on above: Performed By: #### B MP, CBC, ADIFF, GFR, ANEU, MG #### [address] [address] Eosinophils/100 WBC (Bld) 0.8 % Normal 0.0-7.0 [facility] Comment on above: Performed By: #### B MP, CBC, ADIFF, GFR, ANEU, MG #### [address] [address] Lymphocyte, Absolute 0.6 10 3/mcL Low 0.9-4.3 [facility] Comment on above: Performed By: #### B MP, CBC, ADIFF, GFR, ANEU, MG #### [address] [address] Lymphocytes/100 WBC (Bld) 30.6 % Normal 20.0-40.0 [facility] Comment on above: Performed By: #### B MP, CBC, ADIFF, GFR, ANEU, MG #### [address] [address] Monocyte, Absolute 0.2 10 3/mcL Normal 0.1-1.4 [facility] Comment on above: Performed By: #### B MP, CBC, ADIFF, GFR, ANEU, MG #### [address] [address] Monocytes/100 WBC (Bld) 12.2 % Normal 2.0-13.0 [facility] Comment on above: Performed By: #### B MP, CBC, ADIFF, GFR, ANEU, MG #### [address] [address] Neutrophils/100 WBC (Bld) 55.7 % Normal 50.0-75.0 [facility] Comment on above: Performed By: #### B MP, CBC, ADIFF, GFR, ANEU, MG #### [address] [address] .GFRon 12-20-2024 GFR 85 ml/min/1.73sqm Normal [facility] Comment on above: Result Comment: [...] meters Performed By: #### R ESCVID #### [address] [address] GFR Non- 70 ml/min/1.73sqm Normal [facility] Comment on above: Result Comment: [...] meters Performed By: #### R ESCVID #### [address] [address] .MDWon 08-05-2024 Monocyte Distribution Width 22.28 High 0.00-20.00 [facility] Comment on above: Result Comment: For adults in ED, MDW>20.0 may be associated with a higher risk of sepsis during the first 12hrs of hospital admission Performed By: #### B MP, CBC, ADIFF, GFR, ANEU, MG #### [address] [address] .Morphon 08-05-2024 Platelet Estimate Grt Decreased Normal [facility] Comment on above: Performed By: #### B MP, CBC, ADIFF, GFR, ANEU, MG #### [address] [address] RBC morphology finding Nom (Bld) Normal Normal [facility] Comment on above: Performed By: #### B MP, CBC, ADIFF, GFR, ANEU, MG #### [address] [address] .NEUABSon 08-05-2024 Neutrophil, Absolute 1.1 10 3/mcL Low 2.3-8.1 [facility] Comment on above: Performed By: #### B MP, CBC, ADIFF, GFR, ANEU, MG #### [place] [address] .Urinalysis Microscopic (AO) on 08-05-2024 UA RBC 0-5 Abnormal None Seen [facility] Comment on above: Performed By: #### U AMICAO, UA #### [place] [id number] UA Squam Epithelial 0-5 Abnormal None Seen [facility] Comment on above: Performed By: #### U AMICAO, UA #### [place] [id number] UA WBC 0-5 Abnormal None Seen [facility] Comment on above: Performed By: #### U AMICAO, UA #### [address] [address] BMPon 08-05-2024 BUN/Creatinine Ratio 7 ratio Normal 7-27 [facility] Comment on above: Performed By: #### R ESCOLIVIA #### [facility] [address] [place] [address] Calcium [Mass/Vol] 8.5 mg/dL Normal 8.4-10.2 [facility] Comment on above: Performed By: #### R BRANDON #### [address] [address] Chloride [Moles/Vol] 103 mmol/L Normal 98-107 [facility] Comment on above: Performed By: #### R ESCVID #### [address] [address] CO2 [Moles/Vol] 26 mmol/L Normal 23-31 [facility] Comment on above: Performed By: #### R ESCVID #### [address] [address] Creatinine [Mass/Vol] 1.06 mg/dL Normal 0.70-1.30 [facility] Comment on above: Result Comment: Test ing performed on Siemens Dimension EXL analyzer using a modified kinetic Tri technique. Performed By: #### R ESCVIStaci #### [address] [address] Electrolyte Balance 13.0 mEq/L Normal 4.0-15.0 [facility] Comment on above: Performed By: #### R ESCVID #### [address] [address] Glucose [Mass/Vol] 92 mg/dL Normal 80-115 [facility] Comment on above: Performed By: #### R ESCOLIVIA #### [address] [address] Potassium [Moles/Vol] 3.4 mmol/L Low 3.5-5.1 [facility] Comment on above: Performed By: #### R ESCVIStaci #### [address] [address] Sodium [Moles/Vol] 142 mmol/L Normal 136-145 [facility] Comment on above: Performed By: #### R ESCVID #### [address] [address] Urea nitrogen [Mass/Vol] 7 mg/dL Normal 7-18 [facility] Comment on above: Performed By: #### R ESCOLIVIA #### [address] [address] CBCon 08-05-2024 Erythrocyte distribution width (RBC) [Ratio] 18.1 % High 11.5-15.5 [facility] Comment on above: Performed By: #### R ESCVIStaci #### [place] [address] Hematocrit (Bld) [Volume fraction] 36.1 % Low 40.0-52.0 [facility] Comment on above: Performed By: #### R ESCVIStaci #### [place] [address] Hgb 12.3 G/dL Low 13.0-17.5 [facility] Comment on above: Performed By: #### R ESCOLIVIA #### [place] [address] MCH (RBC) [Entitic mass] 34.7 pg High 27.0-33.0 [facility] Comment on above: Performed By: #### R ESCVIStaci #### [place] [address] MCHC 33.9 G/dL Normal 32.0-36.0 [facility] Comment on above: Performed By: #### R ESCOLIVIA #### [place] [address] MCV (RBC) [Entitic vol] 102.4 fL High 81.0-100.0 [facility] Comment on above: Performed By: #### R ESCOLIVIA #### [place] [address] Platelet 52 10 3/mcL Low 150-450 [facility] Comment on above: Performed By: #### R ESCVIStaci #### [place] [address] Platelet mean volume (Bld) [Entitic vol] 8.8 fL Normal 6.4-10.5 [facility] Comment on above: Performed By: #### R ESCOLIVIA #### [place] [address] RBC 3.53 10 6/mcL Low 4.50-6.00 [facility] Comment on above: Performed By: #### R ESCVID #### [address] [address] WBC 2.0 10 3/mcL Low 4.5-10.8 [facility] Comment on above: Performed By: #### R ESCVID #### [place] [id number] [place] [address] LABORATORYOrdered By: Michael carbajal on 08-05-2024 Appearance [...] 08-05-2024 Magnesium [Mass/Vol] 1.1 mg/dL Low 1.8-2.4 [facility] Comment on above: Performed By: #### R ESCVID #### [facility] [address] [place] [address] UAon 08-05-2024 Color (U) Yellow Normal [facility] Comment on above: Performed By: #### U CARA SAEZ #### [address] [address] Glucose (U) [Mass/Vol] Negative Normal Negative [facility] Comment on above: Performed By: #### U CARA SAEZ #### [address] [address] Ketones Ql (U) Negative Normal Negative [facility] Comment on above: Performed By: #### U AMICAO, UA #### [place] [address] UA Appear Clear Normal Clear [facility] Comment on above: Performed By: #### U AMICAO, UA #### [place] [id number] UA Blood Trace Abnormal Negative [facility] Comment on above: Performed By: #### U AMICAO, UA #### [place] [address] UA Leuk Est Negative Normal Negative [facility] Comment on above: Performed By: #### U AMICAO, UA #### [place] [address] UA Nitrite Negative Normal Negative [facility] Comment on above: Performed By: #### U AMICAO, UA #### [place] [address] UA pH 6.0 Normal 5.0 - 8.0 [facility] Comment on above: Performed By: #### U AMICAO, UA #### [place] [address] UA Protein 100 mg/dL Abnormal Negative [facility] Comment on above: Performed By: #### U AMICAO, UA #### [place] [address] UA Spec Grav 1.020 Normal 1.015-1.[address] [place] [address] Comment on above: Performed By: #### U AMICAO, UA #### [address] [address] UA Specimen Type Clean Catch Normal [facility] Comment on above: Performed By: #### U AMICAO, UA #### [place] [address] UA Urobilinogen 2.0 E.U./dL Abnormal 0.2-1.0 [facility] Comment on above: Performed By: #### U AMICAO, UA #### [facility] [address] [place], [place] [address] Urobilinogen (U) [Mass/Vol] Negative Normal Negative [facility] Comment on above: Performed By: #### U CARA SAEZ #### [facility] [address] [place], [place] [address] XR CHEST 1 VIEWon 08-05-2024 XR CHEST [...] 08/05/2024 5:21:45 PM Ordering Provider: EMILIE Meeks [facility] XR CHEST 1 VIEWon 05-26-2024 [...] 05/26/2024 2:51:00 AM Ordering Provider: CHARLIE Meeks [facility] .Auto Diffon 05-16-2024 Basophil, Absolute 0.0 10 3/mcL Normal 0.0-0.3 [facility] Comment on above: Performed By: #### B MP, CBC, ADIFF, ANEU, GFR #### [address] [address] Basophils/100 WBC (Bld) 0.6 % Normal 0.0-2.5 [facility] Comment on above: Performed By: #### B MP, CBC, ADIFF, ANEU, GFR #### [address] [address] Eosinophil, Absolute 0.1 10 3/mcL Normal 0.0-0.7 [facility] Comment on above: Performed By: #### B MP, CBC, ADIFF, ANEU, GFR #### [address] [address] Eosinophils/100 WBC (Bld) 2.6 % Normal 0.0-6.0 [facility] Comment on above: Performed By: #### B MP, CBC, ADIFF, ANEU, GFR #### [address] [address] Lymphocyte, Absolute 1.3 10 3/mcL Normal 0.9-4.3 [facility] Comment on above: Performed By: #### B MP, CBC, ADIFF, ANEU, GFR #### [address] [address] Lymphocytes/100 WBC (Bld) 35.4 % Normal 20.0-40.0 [facility] Comment on above: Performed By: #### B MP, CBC, ADIFF, ANEU, GFR #### [address] [address] Monocyte, Absolute 0.4 10 3/mcL Normal 0.1-1.4 [facility] Comment on above: Performed By: #### B MP, CBC, ADIFF, ANEU, GFR #### [address] [address] Monocytes/100 WBC (Bld) 11.3 % Normal 2.0-13.0 [facility] Comment on above: Performed By: #### B MP, CBC, ADIFF, ANEU, GFR #### [address] [address] Neutrophils/100 WBC (Bld) 50.1 % Normal 50.0-75.0 [facility] Comment on above: Performed By: #### B MP, CBC, ADIFF, ANEU, GFR #### [address] [address] .GFRon 05-16-2024 GFR Non- >60 Normal [facility] Comment on above: Result Comment: [...] B MP, CBC, ADIFF, ANEU, GFR #### [address] [address] GFR >60 Normal [facility] Comment on above: Result Comment: [...] B MP, CBC, ADIFF, ANEU, GFR #### [address] [address] .NEUABSon 05-16-2024 Neutrophil, Absolute 1.8 10 3/mcL Low 2.3-8.1 [facility] Comment on above: Performed By: #### B MP, CBC, ADIFF, ANEU, GFR #### [address] [address] BMPon 05-16-2024 BUN/Creatinine Ratio 15.7 ratio Normal 10.0-22.0 [facility] Comment on above: Performed By: #### B MP, CBC, ADIFF, ANEU, GFR #### [place] [address] Calcium [Mass/Vol] 8.9 mg/dL Normal 8.7-10.4 [facility] Comment on above: Performed By: #### B MP, CBC, ADIFF, ANEU, GFR #### [place] [address] Chloride [Moles/Vol] 109 mmol/L Normal 98-110 [facility] Comment on above: Performed By: #### B MP, CBC, ADIFF, ANEU, GFR #### [place] [address] CO2 [Moles/Vol] 27 mmol/L Normal 22-32 [facility] Comment on above: Performed By: #### B MP, CBC, ADIFF, ANEU, GFR #### [place] [address] Creatinine [Mass/Vol] 0.89 mg/dL Normal 0.60-1.40 [facility] Comment on above: Result Comment: Test ing performed on Central Logic analyzer using enzymatic creatinine methodology. Performed By: #### B MP, CBC, ADIFF, ANEU, GFR #### [place] [address] Electrolyte Balance 2.0 mEq/L Low 4.0-15.0 [facility] Comment on above: Performed By: #### B MP, CBC, ADIFF, ANEU, GFR #### [place] [address] Glucose [Mass/Vol] 108 mg/dL Normal 82-115 [facility] Comment on above: Performed By: #### B MP, CBC, ADIFF, ANEU, GFR #### [place] [phone] Potassium [Moles/Vol] 3.9 mmol/L Normal 3.5-5.0 [facility] Comment on above: Performed By: #### B MP, CBC, ADIFF, ANEU, GFR #### [place] [phone] Sodium [Moles/Vol] 138 mmol/L Normal 136-145 [facility] Comment on above: Performed By: #### B MP, CBC, ADIFF, ANEU, GFR #### [place] [phone] Urea nitrogen [Mass/Vol] 14.0 mg/dL Normal 8.0-22.0 [facility] Comment on above: Performed By: #### B MP, CBC, ADIFF, ANEU, GFR #### [address] [address] CBCon 05-16-2024 Erythrocyte distribution width (RBC) [Ratio] 14.9 % Normal 11.5-15.5 [facility] Comment on above: Performed By: #### B MP, CBC, ADIFF, ANEU, GFR #### [place] [phone] Hematocrit (Bld) [Volume fraction] 28.5 % Low 40.0-52.0 [facility] Comment on above: Performed By: #### B MP, CBC, ADIFF, ANEU, GFR #### [address] [address] Hgb 9.5 G/dL Low 13.0-17.5 [facility] Comment on above: Performed By: #### B MP, CBC, ADIFF, ANEU, GFR #### [place] [phone] MCH (RBC) [Entitic mass] 35.1 pg High 27.0-33.0 [facility] Comment on above: Performed By: #### B MP, CBC, ADIFF, ANEU, GFR #### [place] [address] MCHC 33.4 G/dL Normal 32.0-36.0 [facility] Comment on above: Performed By: #### B MP, CBC, ADIFF, ANEU, GFR #### [place] [address] MCV (RBC) [Entitic vol] 105.0 fL High 81.0-100.0 [facility] Comment on above: Performed By: #### B MP, CBC, ADIFF, ANEU, GFR #### [place] [address] Platelet 172 10 3/mcL Normal 150-450 [facility] Comment on above: Performed By: #### B MP, CBC, ADIFF, ANEU, GFR #### [place] [address] Platelet mean volume (Bld) [Entitic vol] 7.7 fL Normal 6.4-10.5 [facility] Comment on above: Performed By: #### B MP, CBC, ADIFF, ANEU, GFR #### [place] [address] RBC 2.72 10 6/mcL Low 4.50-6.00 [facility] Comment on above: Performed By: #### B MP, CBC, ADIFF, ANEU, GFR #### [place] [address] WBC 3.6 10 3/mcL Low 4.5-10.8 [facility] Comment on above: Performed By: #### B MP, CBC, ADIFF, ANEU, GFR #### [place] [address] LABORATORYOrdered By: SYSTEM SYSTEM on 05-16-2024 Basophils [...] above: Interpretive Data: T esting performed on Central Logic analyzer using enzymatic creatinine methodology. Electrolyte Balance [...] (S/P/Bld) [Vol rate/Area] ml/min/1.73sqm Invalid Interpretation Code [employer] S Comment on above: Interpretive Data: [...] (S/P/Bld) [Vol rate/Area] ml/min/1.73sqm Invalid Interpretation Code [employer] S Comment on above: Interpretive Data: [...] 05/16/2024 6:34:24 AM Ordering Provider: JANET Meeks [facility] .Auto Diffon 05-15-2024 Basophil, Absolute 0.0 10 3/mcL Normal 0.0-0.2 [facility] Comment on above: Performed By: #### B MP, CBC, ADIFF, GFR, ANEU, MG #### [address] [address] Basophils/100 WBC (Bld) 0.9 % Normal 0.0-2.5 [facility] Comment on above: Performed By: #### B MP, CBC, ADIFF, GFR, ANEU, MG #### [address] [address] Eosinophil, Absolute 0.0 10 3/mcL Normal 0.0-0.7 [facility] Comment on above: Performed By: #### B MP, CBC, ADIFF, GFR, ANEU, MG #### [address] [address] Eosinophils/100 WBC (Bld) 0.3 % Normal 0.0-7.0 [facility] Comment on above: Performed By: #### B MP, CBC, ADIFF, GFR, ANEU, MG #### [address] [address] Lymphocyte, Absolute 1.1 10 3/mcL Normal 0.9-4.3 [facility] Comment on above: Performed By: #### B MP, CBC, ADIFF, GFR, ANEU, MG #### [address] [address] Lymphocytes/100 WBC (Bld) 21.3 % Normal 20.0-40.0 [facility] Comment on above: Performed By: #### B MP, CBC, ADIFF, GFR, ANEU, MG #### [address] [address] Monocyte, Absolute 0.6 10 3/mcL Normal 0.1-1.4 [facility] Comment on above: Performed By: #### B MP, CBC, ADIFF, GFR, ANEU, MG #### [address] [address] Monocytes/100 WBC (Bld) 11.1 % Normal 2.0-13.0 [facility] Comment on above: Performed By: #### B MP, CBC, ADIFF, GFR, ANEU, MG #### [address] [address] Neutrophils/100 WBC (Bld) 66.4 % Normal 50.0-75.0 [facility] Comment on above: Performed By: #### B MP, CBC, ADIFF, GFR, ANEU, MG #### [address] [address] .GFRon 05-15-2024 GFR 110 ml/min/1.73sqm Normal [facility] Comment on above: Result Comment: [...] MP, CBC, ADIFF, GFR, ANEU, MG #### [address] [address] GFR Non- 91 ml/min/1.73sqm [facility] Comment on above: Result Comment: GFR Population [...] MP, CBC, ADIFF, GFR, ANEU, MG #### [address] [address] .MDWon 05-15-2024 Monocyte Distribution Width 21.81 High 0.00-20.00 [facility] Comment on above: Result Comment: For adults in ED, MDW>20.0 may be associated with a higher risk of sepsis during the first 12hrs of hospital admission Performed By: #### B MP, CBC, ADIFF, GFR, ANEU, MG #### [place] [address] .NEUABSon 05-15-2024 Neutrophil, Absolute 3.5 10 3/mcL Normal 2.3-8.1 [facility] Comment on above: Performed By: #### B MP, CBC, ADIFF, GFR, ANEU, MG #### [place] [address] Linda 05-15-2024 Ethanol Level <3 Normal 0-3 [facility] Comment on above: Performed By: #### B MP, CBC, ADIFF, GFR, ANEU, MG #### [place] [address] APTTon 05-15-2024 aPTT Coag (Bld) [Time] 40.3 s High 25.0-35.0 [facility] Comment on above: Result Comment: For Heparin anticoagulation therapy, the recommended therapeutic range is: 45.4-75.9 seconds. Patients on heparin therapy may have an extreme result. Performed By: #### B MP, CBC, ADIFF, GFR, ANEU, MG #### [place] [address] CBCon 05-15-2024 Erythrocyte distribution width (RBC) [Ratio] 14.8 % Normal 11.5-15.5 [facility] Comment on above: Performed By: #### B MP, CBC, ADIFF, GFR, ANEU, MG #### [place] [address] Hematocrit (Bld) [Volume fraction] 32.5 % Low 40.0-52.0 [facility] Comment on above: Performed By: #### B MP, CBC, ADIFF, GFR, ANEU, MG #### [place] [address] Hgb 10.9 G/dL Low 13.0-17.5 [facility] Comment on above: Performed By: #### B MP, CBC, ADIFF, GFR, ANEU, MG #### [address] [address] MCH (RBC) [Entitic mass] 35.2 pg High 27.0-33.0 [facility] Comment on above: Performed By: #### B MP, CBC, ADIFF, GFR, ANEU, MG #### [address] [address] MCHC 33.5 G/dL Normal 32.0-36.0 [facility] Comment on above: Performed By: #### B MP, CBC, ADIFF, GFR, ANEU, MG #### [address] [address] MCV (RBC) [Entitic vol] 105.0 fL High 81.0-100.0 [facility] Comment on above: Performed By: #### B MP, CBC, ADIFF, GFR, ANEU, MG #### [place] [id number] Platelet 193 10 3/mcL Normal 150-450 [facility] Comment on above: Performed By: #### B MP, CBC, ADIFF, GFR, ANEU, MG #### [address] [address] Platelet mean volume (Bld) [Entitic vol] 7.6 fL Normal 6.4-10.5 [facility] Comment on above: Performed By: #### B MP, CBC, ADIFF, GFR, ANEU, MG #### [place] [id number] RBC 3.10 10 6/mcL Low 4.50-6.00 [facility] Comment on above: Performed By: #### B MP, CBC, ADIFF, GFR, ANEU, MG #### [place] [phone] WBC 5.2 10 3/mcL Normal 4.5-10.8 [facility] Comment on above: Performed By: #### B MP, CBC, ADIFF, GFR, ANEU, MG #### [place] [phone] CMPon 05-15-2024 Albumin Level 3.3 G/dL Low 3.4-4.8 [facility] Comment on above: Performed By: #### B MP, CBC, ADIFF, GFR, ANEU, MG #### [address] [address] Albumin/Globulin [Mass ratio] 0.7 {ratio} Low 1.1-2.5 [facility] Comment on above: Performed By: #### B MP, CBC, ADIFF, GFR, ANEU, MG #### [address] [address] ALP [Catalytic activity/Vol] 121 U/L Normal 40-135 [facility] Comment on above: Performed By: #### B MP, CBC, ADIFF, GFR, ANEU, MG #### [address] [address] ALT [Catalytic activity/Vol] 81 U/L High 16-63 [facility] Comment on above: Performed By: #### B MP, CBC, ADIFF, GFR, ANEU, MG #### [address] [address] AST [Catalytic activity/Vol] 123 U/L High 10-40 [facility] Comment on above: Performed By: #### B MP, CBC, ADIFF, GFR, ANEU, MG #### [address] [address] Bili Total 1.0 mg/dL Normal 0.2-1.0 [facility] Comment on above: Result Comment: Use of this assay is not recommended for patients undergoing treatment with eltrombopag due to the potential for falsely elevated results. Performed By: #### B MP, CBC, ADIFF, GFR, ANEU, MG #### [address] [address] BUN/Creatinine Ratio 13 ratio Normal 7-27 [facility] Comment on above: Performed By: #### B MP, CBC, ADIFF, GFR, ANEU, MG #### [address] [address] Calcium [Mass/Vol] 9.3 mg/dL Normal 8.4-10.2 [facility] Comment on above: Performed By: #### B MP, CBC, ADIFF, GFR, ANEU, MG #### [place] [address] Chloride [Moles/Vol] 101 mmol/L Normal 98-107 [facility] Comment on above: Performed By: #### B MP, CBC, ADIFF, GFR, ANEU, MG #### [place] [address] CO2 [Moles/Vol] 27 mmol/L Normal 23-31 [facility] Comment on above: Performed By: #### B MP, CBC, ADIFF, GFR, ANEU, MG #### [place] [address] Creatinine [Mass/Vol] 0.85 mg/dL Normal 0.70-1.30 [facility] Comment on above: Result Comment: Test ing performed on [employer] Dimension EXL analyzer using a modified kinetic Tri technique. Performed By: #### B MP, CBC, ADIFF, GFR, ANEU, MG #### [place] [address] Electrolyte Balance 9.0 mEq/L Normal 4.0-15.0 [facility] Comment on above: Performed By: #### B MP, CBC, ADIFF, GFR, ANEU, MG #### [place] [address] Globulin 4.8 G/dL Normal [facility] Comment on above: Performed By: #### B MP, CBC, ADIFF, GFR, ANEU, MG #### [place] [address] Glucose [Mass/Vol] 105 mg/dL Normal 80-115 [facility] Comment on above: Performed By: #### B MP, CBC, ADIFF, GFR, ANEU, MG #### [place] [address] Potassium [Moles/Vol] 3.9 mmol/L Normal 3.5-5.1 [facility] Comment on above: Performed By: #### B MP, CBC, ADIFF, GFR, ANEU, MG #### [place] [id number] [place], [place] [address] Sodium [Moles/Vol] 137 mmol/L Normal 136-145 [facility] Comment on above: Performed By: #### B MP, CBC, ADIFF, GFR, ANEU, MG #### [address] [address] Total Protein 8.1 G/dL Normal 6.4-8.2 [facility] Comment on above: Performed By: #### B MP, CBC, ADIFF, GFR, ANEU, MG #### [place] [phone] [place], [place] [address] Urea nitrogen [Mass/Vol] 11 mg/dL Normal 7-18 [facility] Comment on above: Performed By: #### B MP, CBC, ADIFF, GFR, ANEU, MG #### [address] [address] [address] ABD/PELVIS W/ IV CONTRAST ONLYon 05-15-2024 [...] 05/15/2024 1:23:26 PM Ordering Provider: ALEXANDRA PALAFOX [facility] [place] [facility] CT THORAX W/O CONTRASTon CT THORAX W/O [...] 05/15/2024 1:23:26 PM Ordering Provider: ALEXANDRA PALAFOX [facility] [place] [facility] LABORATORYOrdered By: SYSTEM SYSTEM on 05-15-2024 Albumin [...] Comment on above: Interpretive Data: Paul isbell [employer] (CHEST, 1992, 102:[id number]) [...] 05-15-2024 Magnesium [Mass/Vol] 1.6 mg/dL Low 1.8-2.4 [facility] Comment on above: Performed By: #### B MP, CBC, ADIFF, GFR, ANEU, MG #### [address] [address] PROon 05-15-2024 PT Coag (PPP) [Time] 13.1 s Normal 9.0-14.4 [facility] Comment on above: Performed By: #### B MP, CBC, ADIFF, GFR, ANEU, MG #### [address] [address] PT International Ratio 1.1 Normal [facility] Comment on above: Result Comment: [employer] (CHEST, 1992, 102:[id number]) recommended therapeutic range for oral anticoagulant therapy is: LOW RISK: Prophylaxis of venous thrombosis INR: 2.0-3.0 Treatment of pulmonary embolism 2.0-3.0 Prevention of systemic embolism 2.0-3.0 HIGH RISK: Mechanical prosthetic valves 2.5-3.5 Performed By: #### B MP, CBC, ADIFF, GFR, ANEU, MG #### [address] [address] UAon 05-15-2024 Color (U) Yellow Normal [facility] Comment on above: Performed By: #### B MP, CBC, ADIFF, GFR, ANEU, MG #### [address] [address] Glucose (U) [Mass/Vol] Negative Normal Negative [facility] Comment on above: Performed By: #### B MP, CBC, ADIFF, GFR, ANEU, MG #### [address] [address] Ketones Ql (U) Negative Normal Negative [facility] Comment on above: Performed By: #### B MP, CBC, ADIFF, GFR, ANEU, MG #### [address] [address] UA Appear Clear Normal Clear [facility] Comment on above: Performed By: #### B MP, CBC, ADIFF, GFR, ANEU, MG #### [address] [address] UA Blood Negative Normal Negative [facility] Comment on above: Performed By: #### B MP, CBC, ADIFF, GFR, ANEU, MG #### [address] [address] UA Leuk Est Negative Normal Negative [facility] Comment on above: Performed By: #### B MP, CBC, ADIFF, GFR, ANEU, MG #### [place] [address] UA Nitrite Negative Normal Negative [facility] Comment on above: Performed By: #### B MP, CBC, ADIFF, GFR, ANEU, MG #### [place] [address] UA pH 7.0 Normal 5.0 - 8.0 [facility] Comment on above: Performed By: #### B MP, CBC, ADIFF, GFR, ANEU, MG #### [place] [address] UA Protein Trace Normal Negative [facility] Comment on above: Performed By: #### B MP, CBC, ADIFF, GFR, ANEU, MG #### [place] [address] UA Spec Grav 1.025 Normal 1.015-1.02 5 [facility] Comment on above: Performed By: #### B MP, CBC, ADIFF, GFR, ANEU, MG #### [place] [address] UA Specimen Type Clean Catch Normal [facility] Comment on above: Performed By: #### B MP, CBC, ADIFF, GFR, ANEU, MG #### [place] [address] UA Urobilinogen 2.0 E.U./dL Abnormal 0.2-1.0 [facility] Comment on above: Performed By: #### B MP, CBC, ADIFF, GFR, ANEU, MG #### [address] [address] Urobilinogen (U) [Mass/Vol] Negative Normal Negative [facility] Comment on above: Performed By: #### B MP, CBC, ADIFF, GFR, ANEU, MG #### [place] [address] UDRUGon 05-15-2024 Amphetamine (u) Negative Normal Negative [facility] Comment on above: Performed By: #### B MP, CBC, ADIFF, GFR, ANEU, MG #### [address] [address] Barbiturate (u) Negative Normal Negative [facility] Comment on above: Performed By: #### B MP, CBC, ADIFF, GFR, ANEU, MG #### [address] [address] Benzodiazepine (u) Negative Normal Negative [facility] Comment on above: Performed By: #### B MP, CBC, ADIFF, GFR, ANEU, MG #### [address] [address] Cannabinoid (u) Negative Normal Negative [facility] Comment on above: Performed By: #### B MP, CBC, ADIFF, GFR, ANEU, MG #### [address] [address] Cocaine Ql (U) Negative Normal Negative [facility] Comment on above: Performed By: #### B MP, CBC, ADIFF, GFR, ANEU, MG #### [address] [address] Methadone Ql (U) Negative Normal Negative [facility] Comment on above: Performed By: #### B MP, CBC, ADIFF, GFR, ANEU, MG #### [place] [address] Opiate (u) Negative Normal Negative [facility] Comment on above: Performed By: #### B MP, CBC, ADIFF, GFR, ANEU, MG #### [address] [address] PCP (u) Negative Normal Negative [facility] Comment on above: Performed By: #### B MP, CBC, ADIFF, GFR, ANEU, MG #### [place] [phone] [place], [place] [address] Urine Drugs screened: See Below Normal [facility] Comment on above: Result Comment: This [...] MP, CBC, ADIFF, GFR, ANEU, MG #### [address] [address] XR CHEST 1 VIEWon 05-15-2024 XR CHEST [...] 05/15/2024 3:44:23 PM Ordering Provider: NATHANIEL CARUSO [facility] .Auto Diffon 03-29-2024 Basophil, Absolute 0.0 10 3/mcL Normal 0.0-0.3 [facility] ([place]) Comment on above: Performed By: #### C BC, LYNNE, MDW, CMP, GFR, DIFF, ALC, TROPHS #### [address] [address] Basophils/100 WBC (Bld) 0.9 % Normal 0.0-2.5 [facility] ([place]) Comment on above: Performed By: #### C BC, MORPH, MDW, CMP, GFR, DIFF, ALC, TROPHS #### [address] [address] Eosinophil, Absolute 0.0 10 3/mcL Normal 0.0-0.7 [facility] ([place]) Comment on above: Performed By: #### C BC, LYNNE, MDW, CMP, GFR, DIFF, ALC, TROPHS #### [address] [address] Eosinophils/100 WBC (Bld) 0.5 % Normal 0.0-6.0 [facility] ([place] Comment on above: Performed By: #### C BC, LYNNE, MDW, CMP, GFR, DIFF, ALC, TROPHS #### [address] [address] Lymphocyte, Absolute 0.8 10 3/mcL Low 0.9-4.3 [facility] ([place]) Comment on above: Performed By: #### C BC, LYNNE, MDW, CMP, GFR, DIFF, ALC, TROPHS #### [address] [address] Lymphocytes/100 WBC (Bld) 23.9 % Normal 20.0-40.0 [facility] ([place] Comment on above: Performed By: #### C BC, MORPH, MDW, CMP, GFR, DIFF, ALC, TROPHS #### [address] [address] Monocyte, Absolute 0.4 10 3/mcL Normal 0.1-1.4 [facility] ([place] Comment on above: Performed By: #### C KRISTI, LYNNE, MDW, CMP, GFR, DIFF, ALC, TROPHS #### [address] [address] Monocytes/100 WBC (Bld) 11.9 % Normal 2.0-13.0 [facility] ([place] Comment on above: Performed By: #### C BC, LYNNE, MDW, CMP, GFR, DIFF, ALC, TROPHS #### [address] [address] Neutrophils/100 WBC (Bld) 62.8 % Normal 50.0-75.0 [facility] ([place] Comment on above: Performed By: #### C BC, LYNNE, MDW, CMP, GFR, DIFF, ALC, TROPHS #### [address] [address] .GFRon 03-29-2024 GFR >60 Normal [facility] ([place] Comment on above: Result Comment: GFR Population [...] MDW, CMP, GFR, DIFF, ALC, TROPHS #### [address] [address] GFR Non- >60 Normal [facility] ([place] Comment on above: Result Comment: GFR Population [...] MDW, CMP, GFR, DIFF, ALC, TROPHS #### [address] [address] .MDWon 03-29-2024 Monocyte Distribution Width 24.00 High 0.00-20.00 [facility] ([place] Comment on above: Result Comment: For adults in ED, MDW>20.0 may be associated with a higher risk of sepsis during the first 12hrs of hospital admission Performed By: #### C KRISTI, JOHNNIE BATISTA, CMP, GFR, DIFF, ALC, TROPHS #### [address] [address] .NEUABSon 03-29-2024 Neutrophil, Absolute 2.0 10 3/mcL Low 2.3-8.1 [facility] ([place]) Comment on above: Performed By: #### C KRISTI, LYNNE, MDW, CMP, GFR, DIFF, ALC, TROPHS #### [address] [address] Noemí 03-29-2024 Ammonia 23 mcmol/l Normal 11-32 [facility] ([place] Comment on above: Order Comment: hemol yzed. 03/29/2024 20:30:43 EDT Performed By: #### C KRISTI, LYNNE, W, CMP, GFR, DIFF, ALC, TROPHS #### [address] [address] CBCon 03-29-2024 Erythrocyte distribution width (RBC) [Ratio] 16.1 % High 11.5-15.5 [facility] ([place] Comment on above: Performed By: #### C BC, LYNNE, W, CMP, GFR, DIFF, ALC, TROPHS #### [address] [address] Hematocrit (Bld) [Volume fraction] 33.5 % Low 40.0-52.0 [facility] ([place] Comment on above: Performed By: #### C BC, LYNNE, MDW, CMP, GFR, DIFF, ALC, TROPHS #### [address] [address] Hgb 11.4 G/dL Low 13.0-17.5 [facility] ([place] Comment on above: Performed By: #### C BC, MORPH, MDW, CMP, GFR, DIFF, ALC, TROPHS #### [place] [id number] MCH (RBC) [Entitic mass] 36.8 pg High 27.0-33.0 [facility] ([place] Comment on above: Performed By: #### C BC, LYNNE, MDW, CMP, GFR, DIFF, ALC, TROPHS #### [place] [address] MCHC 34.2 G/dL Normal 32.0-36.0 [facility] ([place] Comment on above: Performed By: #### C BC, LYNNE, MDW, CMP, GFR, DIFF, ALC, TROPHS #### [address] [address] MCV (RBC) [Entitic vol] 107.7 fL High 81.0-100.0 [facility] ([place] Comment on above: Performed By: #### C BC, MORPH, MDW, CMP, GFR, DIFF, ALC, TROPHS #### [address] [address] Platelet 119 10 3/mcL Low 150-450 [facility] ([place] Comment on above: Performed By: #### C BC, MORPH, MDW, CMP, GFR, DIFF, ALC, TROPHS #### [address] [address] Platelet mean volume (Bld) [Entitic vol] 8.9 fL Normal 6.4-10.5 [facility] ([place] Comment on above: Performed By: #### C KRISTI, LYNNE, JOHNNIE, CMP, GFR, DIFF, ALC, TROPHS #### [address] [address] RBC 3.11 10 6/mcL Low 4.50-6.00 [facility] ([place] Comment on above: Performed By: #### C KRISTI, LYNNE, W, CMP, GFR, DIFF, ALC, TROPHS #### [address] [address] WBC 3.1 10 3/mcL Low 4.5-10.8 [facility] ([place] Comment on above: Performed By: #### C KRISTI, LYNNE, JOHNNIE, CMP, GFR, DIFF, ALC, TROPHS #### [address] [address] CKon 03-29-2024 CK [Catalytic activity/Vol] 42 U/L Normal 7-185 [facility] ([place] Comment on above: Result Comment: Spec imen slightly hemolyzed. Performed By: #### C KRISTI, LYNNE, JOHNNIE, CMP, GFR, DIFF, ALC, TROPHS #### [address] [address] CMPon 03-29-2024 Albumin Level 3.2 G/dL Normal 3.2-4.8 [facility] ([place] Comment on above: Performed By: #### C KRISTI, JOHNNIE BATISTA, CMP, GFR, DIFF, ALC, TROPHS #### [address] [address] Albumin/Globulin [Mass ratio] 0.7 {ratio} Low 0.9-1.6 [facility] ([place] Comment on above: Performed By: #### C KRISTI, LYNNE, JOHNNIE, CMP, GFR, DIFF, ALC, TROPHS #### [address] [address] ALP [Catalytic activity/Vol] 129 U/L High 38-126 [facility] ([place] Comment on above: Performed By: #### C BC, MORPH, MDW, CMP, GFR, DIFF, ALC, TROPHS #### [address] [address] ALT [Catalytic activity/Vol] 79 U/L High 12-55 [facility] ([place] Comment on above: Performed By: #### C BC, MORPH, MDW, CMP, GFR, DIFF, ALC, TROPHS #### [address] [address] AST [Catalytic activity/Vol] 159 U/L High 8-34 [facility] ([place] Comment on above: Performed By: #### C BC, MORPH, MDW, CMP, GFR, DIFF, ALC, TROPHS #### [address] [address] Bili Total 1.50 mg/dL High 0.20-1.20 [facility] ([place] Comment on above: Result Comment: Use of this assay is not recommended for patients undergoing treatment with eltrombopag due to the potential for falsely elevated results. Performed By: #### C BC, MORPH, MDW, CMP, GFR, DIFF, ALC, TROPHS #### [address] [address] BUN/Creatinine Ratio 19.6 ratio Normal 10.0-22.0 [facility] ([place] Comment on above: Performed By: #### C BC, MORPH, MDW, CMP, GFR, DIFF, ALC, TROPHS #### [address] [address] Calcium [Mass/Vol] 9.3 mg/dL Normal 8.7-10.4 [facility] ([place] Comment on above: Performed By: #### C BC, MORPH, MDW, CMP, GFR, DIFF, ALC, TROPHS #### [address] [address] Chloride [Moles/Vol] 105 mmol/L Normal 98-110 [facility] ([place] Comment on above: Performed By: #### C BC, MORPH, MDW, CMP, GFR, DIFF, ALC, TROPHS #### [address] [address] CO2 [Moles/Vol] 27 mmol/L Normal 22-32 [facility] ([place] Comment on above: Performed By: #### C KRISTI, LYNNE, W, CMP, GFR, DIFF, ALC, TROPHS #### [address] [address] Creatinine [Mass/Vol] 0.51 mg/dL Low 0.60-1.40 [facility] ([place]) Comment on above: Performed By: #### C BC, LYNNE, MDW, CMP, GFR, DIFF, ALC, TROPHS #### [address] [address] Electrolyte Balance 6.0 mEq/L Normal 4.0-15.0 [facility] ([place] Comment on above: Performed By: #### C BC, LYNNE, MDW, CMP, GFR, DIFF, ALC, TROPHS #### [address] [address] Globulin 4.7 G/dL High 1.5-3.8 [facility] ([place] Comment on above: Performed By: #### C KRISTI, LYNNE, W, CMP, GFR, DIFF, ALC, TROPHS #### [address] [address] Glucose [Mass/Vol] 85 mg/dL Normal 82-115 [facility] ([place] Comment on above: Performed By: #### C KRISTI, LYNNE, W, CMP, GFR, DIFF, ALC, TROPHS #### [address] [address] Potassium [Moles/Vol] 4.1 mmol/L Normal 3.5-5.0 [facility] ([place]) Comment on above: Result Comment: Spec imen slightly hemolyzed. Performed By: #### C BC, LYNNE, MDW, CMP, GFR, DIFF, ALC, TROPHS #### [address] [address] Sodium [Moles/Vol] 138 mmol/L Normal 136-145 [facility] ([place] Comment on above: Performed By: #### C BC, LYNNE, MDW, CMP, GFR, DIFF, ALC, TROPHS #### [address] [address] Total Protein 7.9 G/dL Normal 5.7-8.2 [facility]) Comment on above: Result Comment: No te - New Reference Range in effect 20 Performed By: #### C BC, MORPH, MDW, CMP, GFR, DIFF, ALC, TROPHS #### [address] [address] Urea nitrogen [Mass/Vol] 10.0 mg/dL Normal 8.0-22.0 [facility]) Comment on above: Performed By: #### C BC, LYNNE, MDW, CMP, GFR, DIFF, ALC, TROPHS #### [address] [address] CVFLURVon 03-29-2024 FLU A PCR Negative Normal Negative [facility]) Comment on above: Result Comment: Note s [id number] Performed By: #### C KRISTI, LYNNE, MDW, CMP, GFR, DIFF, ALC, TROPHS #### [address] [address] FLU B PCR Negative Normal Negative [facility] [place] Comment on above: Result Comment: Note s [id number] Performed By: #### C BC, LYNNE, MDW, CMP, GFR, DIFF, ALC, TROPHS #### [address] [address] RSV PCR Negative Normal Negative [facility]) Comment on above: Result Comment: [place] [id number] Performed By: #### C BC, LYNNE, MDW, CMP, GFR, DIFF, ALC, TROPHS #### [address] [address] SARS-CoV-2 (COVID-19) RNA VIVIANE+probe Ql (Unsp spec) Negative Normal Negative [facility]) Comment on above: Result Comment: Note s [id number] This test has been authorized by FDA [...] MDW, CMP, GFR, DIFF, ALC, TROPHS #### [place] [id number] DRUGSon 03-29-2024 Acetaminophen [Mass/Vol] 5.5 ug/mL Low 10.0-20.0 [facility] ([place] Comment on above: Performed By: #### C LYNNE BERRY MDW, CMP, GFR, DIFF, ALC, TROPHS #### [address] [address] Ethanol Level <10.0 Normal [facility] ([place] Comment on above: Performed By: #### C LYNNE BERRY MDW, CMP, GFR, DIFF, ALC, TROPHS #### [address] [address] Salicylate Lvl (ds) <3.0 Low 10.0-25.0 [facility] [place] Comment on above: Performed By: #### C LYNNE BERRY MDW, CMP, GFR, DIFF, ALC, TROPHS #### [address] [address] Serum Drugs screened: See Below Normal [facility] ([place]) Comment on above: Result Comment: This drug screen is a presumptive screening only. No confirmation will be performed unless requested. Drugs included in the ER serum drug screen are: Threshold Ethanol 10.0 mg/dL Salicylate 2.0 mg/dl Acetaminophen 2.0 mcg/mL Testing has been performed FOR MEDICAL PURPOSES ONLY. Performed By: #### C BC, MORPH, MDW, CMP, GFR, DIFF, ALC, TROPHS #### [place] [address] [address] DRUGUon 03-29-2024 Amphetamine (u) Negative Normal Negative [facility] ([place]) Comment on above: Performed By: #### Staci RUGU #### [address] [address] Barbiturate (u) Negative Normal Negative [facility] ([place]) Comment on above: Performed By: #### Staci RUGU #### [address] [address] Benzodiazepine (u) Negative Normal Negative [facility] ([place]) Comment on above: Performed By: #### Staci RUGU #### [address] [address] Cannabinoid (u) Negative Normal Negative [facility] ([place] Comment on above: Performed By: #### Staci RUGU #### [address] [address] Cocaine Ql (U) Negative Normal Negative [facility] ([place] Comment on above: Performed By: #### Staci RUGU #### [address] [address] Fentanyl (u) Negative Normal Negative [facility] ([place] Comment on above: Result Comment: Test ing has been performed FOR MEDICAL PURPOSES ONLY. Performed By: #### Staci RUGU #### [address] [address] Methadone Ql (U) Negative Normal Negative [facility] ([place] Comment on above: Performed By: #### Staci RUGU #### [address] [address] [address] Opiate (u) Negative Normal Negative [facility] ([place]) Comment on above: Performed By: #### Staci RUGU #### [facility] [address] [place] [id number] Oxycodone (u) Negative Normal Negative [facility] ([place]) Comment on above: Result Comment: Test ing has been performed FOR MEDICAL PURPOSES ONLY. Performed By: #### D RUGU #### [address] [address] PCP (u) Negative Normal Negative [facility] ([place]) Comment on above: Performed By: #### D RUGU #### [address] [address] Propoxyphene (u) Negative Normal Negative [facility] ([place]) Comment on above: Performed By: #### D RUGU #### [address] [address] U pH Drug Scrn 6.0 Normal 5.0-8.0 [facility] ([place]) Comment on above: Performed By: #### D RUGU #### [place] [address] Urine Drugs screened: See Below Normal [facility] ([place]) Comment on above: Result Comment: This drug [...] ONLY. Performed By: #### D RUGU #### [place] [address] LABORATORYOrdered By: Roslyn Canada on 03-29-2024 Appearance (U) Clear (03/29/24 8:58 PM) [facility] Work Phone: Bilirubin Urine Dipstick 3+ Large (Abnormal) (03/29/24 8:58 PM) [facility] Work Phone: Blood Urine Dipstick Negative (03/29/24 8:58 PM) [facility] Work Phone: Glucose Urine Dipstick Negative (03/29/24 8:58 PM) [facility] Work Phone: Ketones Urine Dipstick Trace (Abnormal) (03/29/24 8:58 PM) [facility] Work Phone: Leukocytes Urine Dipstick Negative (03/29/24 8:58 PM) [facility] Work Phone: Nitrite Urine Dipstick Negative (03/29/24 8:58 PM) [facility] Work Phone: pH Urine Dipstick 6.5 (03/29/24 8:58 PM) [facility] Work Phone: Protein Urine Dipstick 1+ (30mg/dl) (Abn ormal) (03/29/24 8:58 PM) [facility] Work Phone: Specific Dana Urine Dipstick 1.015 (03/29/24 8:58 PM) [facility] Work Phone: Urine Color Urine Dipstick Scarlet (Abnormal) (03/29/24 8:58 PM) [facility] Work Phone: Urobilinogen Urine Dipstick 4 mg/dl (Abnormal) (03/29/24 8:58 PM) [facility] Work Phone: LABORATORYOrdered By: George Bhatt [...] ng/L Male: 0-54 ng/L Testing performed on Amaru analyzer using direct chemiluminescent technology. Urea nitrogen [...] Comment on above: Result [place]: [place] [id number] FLUBV RNA VIVIANE+probe Ql (Resp) Negative 14 (03/29/24 7:21 PM) Normal Negative [facility] Auto Viro/Sero SS Comment on above: Result Comment: [place] [id number] RSV PCR Negative 15 (03/29/24 7:21 PM) Normal Negative [facility] Auto Viro/Sero SS Comment on above: Result Comment: [place] [id number] SARS-CoV-2 (COVID-19) RNA VIVIANE+probe Ql (Resp) Negative 11, 12 (03/29/24 7:21 PM) Normal Negative AH Auto Viro/Sero SS Comment on above: Result Comment: [place] [id number] Interpretive Data: T his test has been [...] influenza vaccines may cause inaccurate positive results. [facility] High Sensitivity Troponin I 6 ng/L Normal 0-54 [facility]) Comment on above: Result Comment: High Sensitive Troponin I Reference Ranges: Female: 0-34 ng/L Male: 0-54 ng/L Testing performed on Amaru analyzer using direct chemiluminescent technology. Performed By: #### C BC, MORPH, MDW, CMP, GFR, DIFF, ALC, TROPHS #### [place] [address] XR SHOULDER MINIMUM 2 VIEWS RIGHTon 02-14-2024 [...] 1:50:18 AM Ordering Provider: JASMINY REFERRING Normal [facility]) Absolute lymphocyte countOrd ered By: Papo Rodriguez on 12-25-2023 Lymphocytes Auto (Unsp spec) [#/Vol] 0.77 10*3/uL 0.83-4.51 [facility] Automated lymphocyte count a s percentage of total leukocytesOrdered By: Papo Rodriguez on 12-25-2023 Lymphocytes/100 WBC Auto (Unsp spec) 25.0 % 19-41 [facility] Basophil percentageOrdered B y: Papo Rodriguez on 12-25-2023 Basophils/100 WBC (Bld) 0.6 % 0-1 [facility] Bilirubin [Mass/Vol] 1.80 mg/dL 0.20-1.[address] [facility] Comment on above: For patients on eltr ombopag therapy, use of Dimension [place] TBIL is not recommended. Chloride [Moles/Vol] 104 mmol/L 98-[address] [facility] Eosinophils/100 WBC (Bld) 1.6 % 0-5 [facility] Glucose [Mass/Vol] 84 mg/dL 74-106 [facility] Hemoglobin (Bld) [Mass/Vol] 9.0 g/dL 13.0-16.5 [facility] Monocytes/100 WBC (Bld) 14.0 % 0-10 [facility] Neutrophils (Bld) [#/Vol] 1.8 10*3/uL 2.0-7.7 [facility] Neutrophils/100 WBC (Bld) 57.5 % 47-70 [facility] Potassium [Moles/Vol] 3.6 mmol/L 3.5-5.1 [facility] Protein [Mass/Vol] 6.6 g/dL 6.4-8.2 [facility] Sodium [Moles/Vol] 134 mmol/L 136-145 [facility] WBC (Bld) [#/Vol] 3.1 10*3/uL 4.4-11.0 [facility] Determination of erythrocyte mean corpuscular volume (MCV)Ordered By: Papo Rodriguez on 12-25-2023 MCV (RBC) [Entitic vol] 102.3 fL 80-94 [facility] Erythrocyte distribution wid th ratioOrdered By: Papo Rodriguez on 12-25-2023 Erythrocyte distribution width (RBC) [Ratio] 15.9 % 11.6-14.6 [facility] Erythrocyte distribution wid th standard deviationOrdered By: Papo Rodriguez on 12-25-2023 Erythrocyte distribution width (RBC) [Entitic vol] 59.7 fL 35.1-43.9 [facility] Hematocrit Auto (Bld) [Volum e fraction]Ordered By: Papo Rodriguez on 12-25-2023 Hematocrit (Bld) [Volume fraction] 26.9 % 40-54 [facility] Immature granulocytes/100 WB C Auto (Bld)Ordered By: Papo Rodriguez on 12-25-2023 Immature granulocytes/100 WBC (Bld) 1.300 % 0.0-0.9 [facility] Comment on above: IG% - Immature Granu locytes (promyelocytes, myelocytes and metamyelocytes) > 1% indicates that a LEFT SHIFT is Present. Laboratory - Chemistry and C hemistry - challengeOrdered By: Papo Rodriguez on 12-25-2023 Albumin/Globulin [Mass ratio] 0.6 {ratio} 0.9-2.4 [facility] ALP [Catalytic activity/Vol] 222 U/L 45-117 [facility] ALT [Catalytic activity/Vol] 124 U/L 16-61 [facility] CO2 [Moles/Vol] 25.0 mmol/L 21.0-32.0 [facility] Globulin (S) [Mass/Vol] 4.2 g/dL 2.2-4.2 [facility] Urea nitrogen/Creatinine [Mass ratio] 17.8 mg/mg 10-20 [facility] Laboratory - Hematology and Cell countsOrdered By: Papo Rodriguez on 12-25-2023 MCH (RBC) [Entitic mass] 34.2 pg 27.0-32.0 [facility] MCHC (RBC) [Mass/Vol] 33.5 g/dL 32-36 [facility] Nucleated RBC/100 WBC (Bld) [Ratio] 0 % 0-5 [facility] Platelet mean volume (Bld) [Entitic vol] 11.2 fL 6.2-12.0 [facility] Platelets (Bld) [#/Vol] 173 10*3/uL 150-450 [facility] No Panel InformationOrdered By: Papo Rodriguez on 12-25-2023 Estimated Creatinine Clearance Calc 170.90 ml/min [facility] Estimated GFR (MDRD) Amer 213 mL/min >60 [facility] Comment on above: GFR Calc Estimated GFR (MDRD) Non-Af Amer 176 mL/min >60 [facility] Comment on above: Non- GFR Calc RBC Auto (Bld) [#/Vol]Ordere d By: Papo Rodriguez on 12-25-2023 RBC (Bld) [#/Vol] 2.63 10*6/uL 4.6-6.2 [facility] Serum or plasma calcium josé miguel urement (mass/volume)Ordered By: Papo Rodriguez on 12-25-2023 Calcium [Mass/Vol] 8.4 mg/dL 8.5-10.1 [facility] Serum or plasma creatinine m easurement (mass/volume)Ordered By: Papo Rodriguez on 12-25-2023 Creatinine [Mass/Vol] 0.50 mg/dL 0.70-1.30 [facility] Comment on above: The validity of the calculated GFR & GFRAA in patients over 70 years has not been determined. Clinical correlation is essential. Serum or plasma urea nitroge n measurement (mass/volume)Ordered By: Papo Rodriguez on 12-25-2023 Urea nitrogen [Mass/Vol] 9 mg/dL 7-18 [facility] Thin prep Papanicolaou smear with manual screeningOrdered By: Papo Rodriguez on 12-25-2023 Thin prep Papanicolaou smear with manual screening 2.4 g/dL 3.2-5.0 [facility] Thin prep Papanicolaou smear with manual screening 217 U/L 15-37 [facility] Thin prep Papanicolaou smear with manual screening 5 5-15 [facility] Laboratory - Microbiology an d Antimicrobial susceptibilityOrdered By: Papo Rodriguez on 12-24-2023 SARS-CoV-2 (COVID-19) RNA VIVIANE+probe Ql (Unsp spec) [facility] Basophil percentageOrdered B y: Papo Rodriguez on 12-23-2023 Basophil percentage 2.9 mg/dL 2.5-4.9 [facility] Laboratory - Chemistry and C hemistry - challengeOrdered By: Papo Rodriguez on 12-23-2023 Magnesium [Mass/Vol] 1.5 mg/dL 1.6-2.[address] [facility] Serum or plasma cortisol moustapha surement (mass/volume)Ordered By: Papo Rodriguez on 12-23-2023 Cortisol [Mass/Vol] 12.20 ug/dL 3.44-22.[address] [facility] Comment on above: Adult (AM) 5.27 - 22 .45 ug/dL Adult (PM) 3.44 - 16.76 ug/dLPlease note revised CORTISOL reference range effective 2019. Laboratory - Chemistry and C hemistry - challengeOrdered By: Papo Rodriguez on 12-21-2023 Transferrin [Mass/Vol] 151 mg/dL 177-329 [facility] Comment on above: Performed at: [address] Director: Gary Peña PhD, Phone: [phone] Direct bilirubinOrdered By: Janet Erazo on 12-20-2023 Bilirubin.direct [Mass/Vol] 1.58 mg/dL 0.00-0.30 [facility] Blood platelet adequacy dete ction by light microscopyOrdered By: Taylor Kaur on 12-19-2023 Platelets LM Ql (Bld) MOD DEC ADEQ [facility] Culture, urineOrdered By: Jourdan Childs on 12-19-2023 Bacteria identified Cx Nom (U) Positive [facility] Iron measurement (mass/mass) Ordered By: Janet Erazo on 12-19-2023 Iron (Unsp spec) [Mass/Mass] 32 ug/dL 65-175 [facility] Laboratory - Chemistry and C hemistry - challengeOrdered By: Taylor Kaur on 12-19-2023 Cobalamin (Vitamin B12) [Mass/Vol] 851 pg/mL 211-911 [facility] Laboratory - Chemistry and C hemistry - challengeOrdered By: Janet Erazo on 12-19-2023 Ferritin [Mass/Vol] 3219 ng/mL 26-388 [facility] Laboratory - Microbiology an d Antimicrobial susceptibilityOrdered By: Brendan Childs on 12-19-2023 Bacteria identified Cx Nom (Bld) No growth in 5 days. [facility] No Panel InformationOrdered By: Taylor Kaur on 12-19-2023 Folate 2.60 ng/mL 3.1-55.4 [facility] Streptococcus pneumoniae Antigen (M [facility] No Panel InformationOrdered By: Janet Erazo on 12-19-2023 Total Iron Binding Capacity 192 ug/dL 250-450 [facility] Red blood cell stomatocyte d etectionOrdered By: Taylor Kaur on 12-19-2023 Stomatocytes LM Ql (Bld) 1+ [facility] Serum or plasma iron saturat ion measurement (mass fraction)Ordered By: Janet Erazo on 12-19-2023 Iron saturation [Mass fraction] 16.7 % 15.0-55.0 [facility] Target cell detectionOrdered By: Taylor Kaur on 12-19-2023 Target cells LM Ql (Bld) 2+ [facility] Urine Legionella pneumophila antigen detectionOrdered By: Taylor Kaur on 12-19-2023 L. pneumophila Ag Ql (U) [facility] Whole blood hemoglobin A1c/t otal hemoglobin ratio (mass fraction)Ordered By: Taylor Kaur on 12-19-2023 HbA1c (Bld) [Mass fraction] 4.9 % 3.8-5.6 [facility] Comment on above: Normal < 5.7 % Predi abetic 5.7 - 6.4 % Diabetic >or= 6.5 % Please note range changes. Absolute lymphocyte countOrd ered By: Brendan Childs on 12-18-2023 Lymphocytes Auto (Unsp spec) [#/Vol] 0.44 10*3/uL 0.83-4.51 [facility] Automated lymphocyte count a s percentage of total leukocytesOrdered By: Brendan Childs on 12-18-2023 Lymphocytes/100 WBC Auto (Unsp spec) 9.5 % 19-41 [facility] Basophil percentageOrdered B y: Brendan Childs on 12-18-2023 Basophil percentage 0-5 SEEN /hpf 0-5 [facility] Basophils/100 WBC (Bld) 0.2 % 0-1 [facility] Bilirubin [Mass/Vol] 2.70 mg/dL 0.20-1.[address] [facility] Comment on above: For patients on eltr ombopag therapy, use of Dimension [place] TBIL is not recommended. Chloride [Moles/Vol] 93 mmol/L 98-[address] [facility] Eosinophils/100 WBC (Bld) 0.0 % 0-5 [facility] Glucose [Mass/Vol] 131 mg/dL 74-106 [facility] Comment on above: Fasting Glucose resu lt greater than or equal to 126 mg/dL suggests DIABETES MELLITUS per A.D.A. criteria. Hemoglobin (Bld) [Mass/Vol] 10.3 g/dL 13.0-16.5 [facility] Lactate [Moles/Vol] 1.7 mmol/L 0.4-2.0 [facility] Monocytes/100 WBC (Bld) 12.5 % 0-10 [facility] Neutrophils (Bld) [#/Vol] 3.6 10*3/uL 2.0-7.7 [facility] Neutrophils/100 WBC (Bld) 76.9 % 47-70 [facility] Potassium [Moles/Vol] 3.4 mmol/L 3.5-5.1 [facility] Protein [Mass/Vol] 7.7 g/dL 6.4-8.2 [facility] Sodium [Moles/Vol] 134 mmol/L 136-145 [facility] WBC (Bld) [#/Vol] 4.6 10*3/uL 4.4-11.0 [facility] Basophil percentageOrdered B y: Taylor White on 12-18-2023 Basophil percentage 3.0 mg/dL 2.5-4.9 [facility] Bilirubin Test strip Ql (U)O rdered By: Brendan Childs on 12-18-2023 Bilirubin Ql (U) 6 mg/dL Negative [facility] Comment on above: COLOR OF URINE MAY A FFECT DIPSTICK RESULTS. Blood manual differential co mment interpretation (narrative result)Ordered By: Brendan Childs on 12-18-2023 Manual differential comment Deo (Bld) [Interp] SEE COMMENT [facility] Comment on above: LYMPHOPENIA NOTED Blood platelet adequacy dete ction by light microscopyOrdered By: Brendan Childs on 12-18-2023 Platelets LM Ql (Bld) ADEQUATE ADEQ [facility] Determination of erythrocyte mean corpuscular volume (MCV)Ordered By: Brendan Childs on 12-18-2023 MCV (RBC) [Entitic vol] 101.6 fL 80-94 [facility] Direct bilirubinOrdered By: Brendan Childs on 12-18-2023 Bilirubin.direct [Mass/Vol] 1.85 mg/dL 0.00-0.30 [facility] Erythrocyte distribution wid th ratioOrdered By: Brendan Childs on 12-18-2023 Erythrocyte distribution width (RBC) [Ratio] 14.8 % 11.6-14.6 [facility] Erythrocyte distribution wid th standard deviationOrdered By: Brendan Childs on 12-18-2023 Erythrocyte distribution width (RBC) [Entitic vol] 55.4 fL 35.1-43.9 [facility] Hematocrit Auto (Bld) [Volum e fraction]Ordered By: Brendan Childs on 12-18-2023 Hematocrit (Bld) [Volume fraction] 30.9 % 40-54 [facility] Hyaline casts LM.LPF (Urine sed) [#/Area]Ordered By: Brendan Childs on 12-18-2023 Hyaline casts (Urine sed) [#/Area] 10 /[LPF] 0-5 [facility] Hypochromatic red blood cell detectionOrdered By: Brendan Childs on 12-18-2023 Hypochromia Ql (Bld) 1+ [facility] Immature granulocytes/100 WB C Auto (Bld)Ordered By: Brendan Childs on 12-18-2023 Immature granulocytes/100 WBC (Bld) 0.900 % 0.0-0.9 [facility] Comment on above: IG% - Immature Granu locytes (promyelocytes, myelocytes and metamyelocytes) > 1% indicates that a LEFT SHIFT is Present. Ketones Test strip Ql (U)Ord ered By: Brendan Childs on 12-18-2023 Ketones Ql (U) 150 mg/dl Negative [facility] Comment on above: CRITICAL VALUE *HCRI TICAL VALUE VERIFIED. CALLED TO [id number]/03/24 Axel Lewis.RESULTS READ BACK BY SAME . Laboratory - Chemistry and C hemistry - challengeOrdered By: Brendan Childs on 12-18-2023 ALP [Catalytic activity/Vol] 198 U/L 45-117 [facility] ALT [Catalytic activity/Vol] 93 U/L 16-61 [facility] CO2 [Moles/Vol] 21.0 mmol/L 21.0-32.0 [facility] Globulin (S) [Mass/Vol] 4.7 g/dL 2.2-4.2 [facility] Lipase [Catalytic activity/Vol] 73 U/L 13-75 [facility] Comment on above: Please note:LIPASE r evised reference range effective 22. New Lipase methodology. Expected to produce lower values than the previous assay method. NEW Reference Range: 13 - 75 U/L Urea nitrogen/Creatinine [Mass ratio] 11.9 mg/mg 10-20 [facility] Laboratory - Chemistry and C hemistry - challengeOrdered By: Taylor Kaur on 12-18-2023 Magnesium [Mass/Vol] 1.2 mg/dL 1.6-2.[address] [facility] Laboratory - Drug toxicology Ordered By: Brendan Childs on 12-18-2023 Amphetamines Ql (U) Negative <1000 ng/mL [facility] Benzodiazepines Ql (U) Negative < 200 ng/mL [facility] Cannabinoids Screen Ql (U) Negative < 50 ng/mL [facility] Cocaine Ql (U) Negative < 300 ng/mL [facility] Opiates Ql (U) Negative < 300 ng/mL [facility] Laboratory - Hematology and Cell countsOrdered By: Brendan Childs on 12-18-2023 Anisocytosis Ql (Bld) 1+ [facility] MCH (RBC) [Entitic mass] 33.9 pg 27.0-32.0 [facility] MCHC (RBC) [Mass/Vol] 33.3 g/dL 32-36 [facility] Nucleated RBC/100 WBC (Bld) [Ratio] 0 % 0-5 [facility] Platelet mean volume (Bld) [Entitic vol] 11.6 fL 6.2-12.0 [facility] Laboratory - Microbiology an d Antimicrobial susceptibilityOrdered By: Brendan Childs on 12-18-2023 SARS-CoV-2 (COVID-19) RNA VIVIANE+probe Ql (Unsp spec) [facility] Macrocytes detectionOrdered By: Brendan Childs on 12-18-2023 Macrocytes Ql (Bld) 1+ [facility] Mucus LM Ql (Urine sed)Order ed By: Brendan Childs on 12-18-2023 Mucus Ql (Urine sed) 0 SEEN /hpf [facility] Nitrite Test strip Ql (U)Ord ered By: Brendan Childs on 12-18-2023 Nitrite Ql (U) Positive Negative [facility] No Panel InformationOrdered By: Brendan Childs on 12-18-2023 MDMA (Ecstasy) Screen Negative < 500 ng/mL [facility] Urine Barbiturates Screen Negative < 200 ng/mL [facility] Urine Drug Screen Comment [facility] Comment on above: CONFIRMATORY TESTING FOR [...] Methadone Screen Negative < 300 ng/mL [facility] Urine RBC 0 SEEN /hpf 0-5 [facility] Estimated Creatinine Clearance Calc 84.53 ml/min [facility] Estimated GFR (MDRD) Amer 96 mL/min >60 [facility] Comment on above: GFR Calc Estimated GFR (MDRD) Non-Af Amer 79 mL/min >60 [facility] Comment on above: Non- GFR Calc Ethyl Alcohol Level 4.0 mg/dL [facility] Comment on above: The serum:whole bloo d ethanol ratio is approximately 1.14and varies slightly with hematocrit. Medical Alcohol reference interval and critical value innon-tolerant individuals; 50 - 100 Impairment 100 Intoxication 100 - 250 Severe Poisoning 250 - 400 Deep/possible fatal coma Platelet Count TNP [facility] Comment on above: Test not performedPl ease note: For this sample, a platelet estimate is provided rather than a platelet count due to platelet clumping. Other parameters associated with this sample are not affected by platelet clumping. If a more accurate platelet count is required, a redraw of the patient will be necessary.Previous reported result: 83 [id number] by: JANNETTE on 12/18/23:2318 Troponin I High Sensitivity 18 pg/mL 3.0-78.0 [facility] Comment on above: Please Note: New Theresa t Units and Gender Specific Reference Ranges. For more information see Policy Stat Procedure [place] High Sensitivity Troponin (TNIH) and attachments. Ovalocyte detectionOrdered B y: Brendan Childs on 12-18-2023 Ovalocytes LM Ql (Bld) RARE [facility] Protein Test strip Ql (U)Ord ered By: Brendan Childs on 12-18-2023 Protein Ql (U) 500 mg/dl Negative [facility] RBC Auto (Bld) [#/Vol]Ordere d By: Brendan Childs on 12-18-2023 RBC (Bld) [#/Vol] 3.04 10*6/uL 4.6-6.2 [facility] RBC morphologyOrdered By: Jourdan Childs on 12-18-2023 RBC morphology finding Nom (Bld) N CHROM NORMAL NORM C&C [facility] Serum or plasma acetone josé miguel urement (mass/volume)Ordered By: Taylor White on 12-18-2023 Acetone [Mass/Vol] SMALL NEG [facility] Serum or plasma calcium josé miguel urement (mass/volume)Ordered By: Brendan Childs on 12-18-2023 Calcium [Mass/Vol] 8.8 mg/dL 8.5-10.1 [facility] Serum or plasma creatinine m easurement (mass/volume)Ordered By: Brendan Childs on 12-18-2023 Creatinine [Mass/Vol] 1.01 mg/dL 0.70-1.30 [facility] Comment on above: The validity of the calculated GFR & GFRAA in patients over 70 years has not been determined. Clinical correlation is essential. Serum or plasma urea nitroge n measurement (mass/volume)Ordered By: Brendan Childs on 12-18-2023 Urea nitrogen [Mass/Vol] 12 mg/dL 7-18 [facility] Serum procalcitonin measurem entOrdered By: Taylor Kaur on 12-18-2023 Procalcitonin [Mass/Vol] 0.27 ng/mL 0.00-0.09 [facility] Comment on above: A procalcitonin (PCT [...] (Urine sed) 0 SEEN /hpf 0-5 [facility] Thin prep Papanicolaou smear with manual screeningOrdered By: Brendan Childs on 12-18-2023 Thin prep Papanicolaou smear with manual screening 3.0 g/dL 3.2-5.0 [facility] Thin prep Papanicolaou smear with manual screening 295 U/L 15-37 [facility] Thin prep Papanicolaou smear with manual screening 20 5-15 [facility] Urine blood detectionOrdered By: Brendan Childs on 12-18-2023 RBC Ql (U) 25 /ul Negative [facility] Urine clarityOrdered By: Mateus Childs on 12-18-2023 Clarity (U) Clear Clear [facility] Urine color determinationOrd ered By: Brendan Childs on 12-18-2023 Color (U) Scarlet Yellow [facility] Urine glucose detectionOrder ed By: Brendan Childs on 12-18-2023 Glucose Ql (U) Normal mg/dl Normal [facility] Urine leukocyte esterase det ection by dipstickOrdered By: Brendan Childs on 12-18-2023 Leukocyte esterase Test strip Ql (U) 25 /ul Negative [facility] Urine pHOrdered By: Brendan so on 12-18-2023 pH (U) 6.0 [pH] 5.0 - 8.0 [facility] Urine phencyclidine (PCP) de tectionOrdered By: Brendan Childs on 12-18-2023 Phencyclidine Ql (U) Negative < 25 ng/mL [facility] Urine sediment bacteria coun t by microscopy (number/high power field)Ordered By: Brendan Childs on 12-18-2023 Bacteria LM.HPF (Urine sed) [#/Area] 0 /[HPF] None Seen [facility] Urine specific gravity measu rementOrdered By: Brendan Childs on 12-18-2023 Specific gravity (U) [Rel density] 1.020 1.002-1.03 0 [facility] Urine urobilinogen measureme ntOrdered By: Brendan Childs on 12-18-2023 Urobilinogen Ql (U) 12 mg/dl Normal [facility] .GFRon 11-01-2023 GFR 230 ml/min/1.73sqm Normal [facility] ([place] Comment on above: Result Comment: GFR Population [...] MDW, CMP, GFR, DIFF, ALC, TROPHS #### [address] [address] GFR Non- 190 ml/min/1.73sqm Normal [facility] Comment on above: Result Comment: GFR Population [...] MDW, CMP, GFR, DIFF, ALC, TROPHS #### [place] [id number] .MDWon 11-01-2023 Monocyte Distribution Width See Comment Normal 0.00-20.00 [facility] Comment on above: Result Comment: The MDW result could not be reported due to a sample abnormality that prevents the MDW from being calculated. Performed By: #### C BC, MORPH, MDW, CMP, GFR, DIFF, ALC, TROPHS #### [address] [address] .Manual Diffon 11-01-2023 Bands 4.0 % Normal 0.0-5.0 [facility] Comment on above: Performed By: #### C BC, MORPH, MDW, CMP, GFR, DIFF, ALC, TROPHS #### [address] [address] Basophil %, Manual 2.0 % Normal 0.0-2.5 [facility] ([place]) Comment on above: Performed By: #### C BC, MORPH, MDW, CMP, GFR, DIFF, ALC, TROPHS #### [place] [phone] Basophil, Abs Manual 0.0 10 3/mcL Normal 0.0-0.2 [facility] ([place]) Comment on above: Performed By: #### C BC, MORPH, MDW, CMP, GFR, DIFF, ALC, TROPHS #### [address] [address] Eosinophil %, Manual 2.0 % Normal 0.0-7.0 [facility] ([place]) Comment on above: Performed By: #### C BC, MORPH, MDW, CMP, GFR, DIFF, ALC, TROPHS #### [address] [address] Eosinophil, Abs Manual 0.1 10 3/mcL Normal 0.0-0.4 [facility] ([place]) Comment on above: Performed By: #### C BC, MORPH, MDW, CMP, GFR, DIFF, ALC, TROPHS #### [address] [address] Lymphocyte %, Manual 34.0 % Normal 10.0-50.0 [facility] ([place]) Comment on above: Performed By: #### C BC, MORPH, MDW, CMP, GFR, DIFF, ALC, TROPHS #### [address] [address] Lymphocyte, Abs Manual 0.8 10 3/mcL Normal 0.8-3.9 [facility] ([place]) Comment on above: Performed By: #### C BC, MORPH, MDW, CMP, GFR, DIFF, ALC, TROPHS #### [address] [address] Metamyelocyte 1.0 % Normal [facility] ([place]) Comment on above: Performed By: #### C BC, MORPH, MDW, CMP, GFR, DIFF, ALC, TROPHS #### [address] [address] Monocyte %, Manual 13.0 % Normal 1.7-13.0 [facility] ([place]) Comment on above: Performed By: #### C BC, MORPH, MDW, CMP, GFR, DIFF, ALC, TROPHS #### [address] [address] Monocyte, Abs Manual 0.3 10 3/mcL Normal 0.2-1.0 [facility] ([place]) Comment on above: Performed By: #### C BC, MORPH, MDW, CMP, GFR, DIFF, ALC, TROPHS #### [address] [address] Neutrophil %, Manual 44.0 % Normal 37.0-80.0 [facility] ([place]) Comment on above: Performed By: #### C BC, MORPH, MDW, CMP, GFR, DIFF, ALC, TROPHS #### [address] [address] Neutrophil, Abs Manual 1.1 10 3/mcL Low 2.9-6.2 [facility] ([place]) Comment on above: Performed By: #### C BC, MORPH, MDW, CMP, GFR, DIFF, ALC, TROPHS #### [place] [phone] Nucleated RBC 0.0 /100 WBC Normal [facility] ([place]) Comment on above: Performed By: #### C BC, LYNNE, MDW, CMP, GFR, DIFF, ALC, TROPHS #### [address] [address] .Morphon 11-01-2023 Anisocytosis Ql (Bld) 1+ Normal [facility] ([place]) Comment on above: Performed By: #### C BC, LYNNE, MDW, CMP, GFR, DIFF, ALC, TROPHS #### [address] [address] Large Platelets Few Normal [facility] ([place]) Comment on above: Performed By: #### C BC, LYNNE, MDW, CMP, GFR, DIFF, ALC, TROPHS #### [address] [address] Platelet Estimate Decreased Normal [facility] ([place]) Comment on above: Performed By: #### C BC, LYNNE, MDW, CMP, GFR, DIFF, ALC, TROPHS #### [address] [address] Stomatocytes 2+ Normal [facility] ([place]) Comment on above: Performed By: #### C KRISTI, JOHNNIE BATISTA, CMP, GFR, DIFF, ALC, TROPHS #### [address] [address] Linda 11-01-2023 Ethanol Level 389 mg/dL Critically abnormal 0-3 [facility] ([place]) Comment on above: Performed By: #### C KRISTI, LYNNE, JOHNNIE, CMP, GFR, DIFF, ALC, TROPHS #### [address] [address] CBCon 11-01-2023 Erythrocyte distribution width (RBC) [Ratio] 16.4 % High 11.5-14.5 [facility] ([place]) Comment on above: Performed By: #### C KRISTI, JOHNNIE BATISTA, CMP, GFR, DIFF, ALC, TROPHS #### [address] [address] Hematocrit (Bld) [Volume fraction] 36.2 % Low 42.0-52.0 [facility] ([place] Comment on above: Performed By: #### C KRISTI, JOHNNIE BATISTA, CMP, GFR, DIFF, ALC, TROPHS #### [address] [address] Hgb 12.2 G/dL Low 14.0-18.0 [facility] ([place] Comment on above: Performed By: #### C KRISTI, JOHNNIE BATISTA, CMP, GFR, DIFF, ALC, TROPHS #### [address] [address] MCH (RBC) [Entitic mass] 34.9 pg High 27.0-31.2 [facility] ([place] Comment on above: Performed By: #### C KRISTI, JOHNNIE BATISTA, CMP, GFR, DIFF, ALC, TROPHS #### [address] [address] MCHC 33.8 G/dL Normal 31.8-35.4 [facility] ([place] Comment on above: Performed By: #### C BC, MORPH, MDW, CMP, GFR, DIFF, ALC, TROPHS #### [address] [address] MCV (RBC) [Entitic vol] 103.3 fL High 80.0-94.0 [facility] ([place] Comment on above: Performed By: #### C BC, MORPH, MDW, CMP, GFR, DIFF, ALC, TROPHS #### [place] [address] Platelet 79 10 3/mcL Low 130-400 [facility] ([place]) Comment on above: Performed By: #### C BC, MORPH, MDW, CMP, GFR, DIFF, ALC, TROPHS #### [place] [phone] Platelet mean volume (Bld) [Entitic vol] 8.2 fL Normal 7.4-10.4 [facility] ([place] Comment on above: Performed By: #### C BC, MORPH, MDW, CMP, GFR, DIFF, ALC, TROPHS #### [address] [address] RBC 3.50 10 6/mcL Low 4.04-6.13 [facility] ([place] Comment on above: Performed By: #### C BC, MORPH, MDW, CMP, GFR, DIFF, ALC, TROPHS #### [place] [phone] WBC 2.4 10 3/mcL Low 4.6-10.8 [facility] ([place] Comment on above: Performed By: #### C BC, MORPH, MDW, CMP, GFR, DIFF, ALC, TROPHS #### [place] [address] CKon 11-01-2023 CK [Catalytic activity/Vol] 122 U/L Normal 39-308 [facility] ([place] Comment on above: Performed By: #### C K #### [place] [address] CMPon 11-01-2023 Albumin Level 3.2 G/dL Low 3.4-4.8 [facility] ([place] Comment on above: Performed By: #### C KRISTI, LYNNE, MDW, CMP, GFR, DIFF, ALC, TROPHS #### [address] [address] Albumin/Globulin [Mass ratio] 0.8 {ratio} Low 1.1-2.5 [facility] ([place] Comment on above: Performed By: #### C BC, LYNNE, MDW, CMP, GFR, DIFF, ALC, TROPHS #### [address] [address] ALP [Catalytic activity/Vol] 178 U/L High 40-135 [facility] ([place] Comment on above: Performed By: #### C BC, LYNNE, MDW, CMP, GFR, DIFF, ALC, TROPHS #### [address] [address] ALT [Catalytic activity/Vol] 164 U/L High 16-63 [facility] ([place] Comment on above: Performed By: #### C KRISTI, LYNNE, MDW, CMP, GFR, DIFF, ALC, TROPHS #### [address] [address] AST [Catalytic activity/Vol] 330 U/L High 10-40 [facility] ([place] Comment on above: Performed By: #### C BC, LYNNE, MDW, CMP, GFR, DIFF, ALC, TROPHS #### [address] [address] Bili Total 1.0 mg/dL Normal 0.2-1.0 [facility] ([place]) Comment on above: Result Comment: Use of this assay is not recommended for patients undergoing treatment with eltrombopag due to the potential for falsely elevated results. Performed By: #### C BC, LYNNE, MDW, CMP, GFR, DIFF, ALC, TROPHS #### [address] [address] BUN/Creatinine Ratio 13 ratio Normal 7-27 [facility] ([place]) Comment on above: Performed By: #### C BC, MORPH, MDW, CMP, GFR, DIFF, ALC, TROPHS #### [address] [address] Calcium [Mass/Vol] 8.3 mg/dL Low 8.4-10.2 [facility] ([place]) Comment on above: Performed By: #### C BC, MORPH, MDW, CMP, GFR, DIFF, ALC, TROPHS #### [place] [address] Chloride [Moles/Vol] 105 mmol/L Normal 98-107 [facility] ([place]) Comment on above: Performed By: #### C BC, MORPH, MDW, CMP, GFR, DIFF, ALC, TROPHS #### [place] [address] CO2 [Moles/Vol] 27 mmol/L Normal 23-31 [facility] ([place] Comment on above: Performed By: #### C BC, MORPH, MDW, CMP, GFR, DIFF, ALC, TROPHS #### [place] [address] Creatinine [Mass/Vol] 0.45 mg/dL Low 0.70-1.30 [facility] ([place]) Comment on above: Performed By: #### C BC, MORPH, MDW, CMP, GFR, DIFF, ALC, TROPHS #### [address] [address] Electrolyte Balance 11.0 mEq/L Normal 4.0-15.0 [facility] ([place]) Comment on above: Performed By: #### C BC, MORPH, MDW, CMP, GFR, DIFF, ALC, TROPHS #### [place] [address] Globulin 4.1 G/dL Normal [facility] ([place]) Comment on above: Performed By: #### C BC, MORPH, MDW, CMP, GFR, DIFF, ALC, TROPHS #### [place] [address] Glucose [Mass/Vol] 88 mg/dL Normal 80-115 [facility] ([place]) Comment on above: Performed By: #### C BC, MORPH, MDW, CMP, GFR, DIFF, ALC, TROPHS #### [address] [address] Potassium [Moles/Vol] 3.6 mmol/L Normal 3.5-5.1 [facility]) Comment on above: Performed By: #### C BC, MORPH, MDW, CMP, GFR, DIFF, ALC, TROPHS #### [address] [address] Sodium [Moles/Vol] 143 mmol/L Normal 136-145 [facility]) Comment on above: Performed By: #### C BC, MORPH, MDW, CMP, GFR, DIFF, ALC, TROPHS #### [address] [address] Total Protein 7.3 G/dL Normal 6.4-8.2 [facility]) Comment on above: Performed By: #### C BC, MORPH, MDW, CMP, GFR, DIFF, ALC, TROPHS #### [address] [address] Urea nitrogen [Mass/Vol] 6 mg/dL Low 7-18 [facility]) Comment on above: Performed By: #### C BC, MORPH, MDW, CMP, GFR, DIFF, ALC, TROPHS #### [address] [address] [address] HEAD OR BRAIN W/O CONTRAS Ton [...] Sign Date: 11/01/2023 8:44:13 PM Ordering Provider: WADNY BROOKE [facility] ([place]) CT SPINE CERVICAL W/O CHARLENE [place] 11-01-2023 [...] 11/01/2023 8:34:45 PM Ordering Provider: WANDY Meeks [facility] ([place]) LABORATORYOrdered By: SYSTEM SYSTEM on 11-01-2023 Albumin [...] a homogeneous sandwich chemiluminescent immunoassay based on Pearlfection technology. Urea nitrogen [Mass/Vol] 6 mg/dL Low 7 - 18 mg/dL AO ADM SS Urea nitrogen/Creatinine [Mass ratio] 13 ratio Normal 7 - 27 ratio AO ADM SS WBC (Bld) [#/Vol] 2.4 103/mcL Low 4.6 - 10.8 10^3/mcL AO Workflow SS TROPHSon 11-01-2023 High Sensitivity Troponin I 12 ng/L Normal 0-76 [facility] ([place]) Comment on above: Result Comment: High Sensitive Troponin I Reference Ranges: Female: 0-51 ng/L Male: 0-76 ng/L Testing performed on Dimension EXL using a homogeneous sandwich chemiluminescent immunoassay based on Pearlfection technology. Performed By: #### C BC, MORPH, MDW, CMP, GFR, DIFF, ALC, TROPHS #### [address] [address] XR CHEST 1 VIEWon 11-01-2023 XR CHEST [...] 11/01/2023 8:24:05 PM Ordering Provider: WANDY BROOKE [facility] ([place]) XR PELVIS 1 OR 2 VIEWSon XR [...] 11/01/2023 8:24:57 PM Ordering Provider: NATHANIEL CARUSO [facility] ([place]) CT HEAD OR BRAIN W/O CONTRAS Ton [...] 09/17/2023 12:59:39 PM Ordering Provider: JENNIFER VILLASEÑOR [facility] ([place]) CT SHOULDER W/O CONTRAST RIG HTon 09-16-2023 [...] 09/16/2023 2:33:00 PM Ordering Provider: JENNIFER VILLASEÑOR [facility] ([place]) .CBC Path Reviewon CBC Path Review Marked leukopenia an d moderate macrocytic anemia and thrombocytopenia noted, with absolute neutropenia and monocytopenia. Rule out liver disease. Rule out hypersplenism. Rule out nutritional deficiency. Rule out drug effect. Rule out bone marrow abnormality. Normal [facility] ([place] Comment on above: Result Comment: Elec tronically signed by: YAN MEIER 09.08.2023 10:18 EST Performed By: #### C BC, MORPH, MDW, CMP, GFR, DIFF, ALC, TROPHS #### [address] [address] .GFRon 09-07-2023 GFR Non- 142 ml/min/1.73sqm Normal [facility] ([place] Comment on above: Result Comment: GFR Population [...] BATISTA, CMP, GFR, DIFF, ALC, TROPHS #### [address] [address] GFR 172 ml/min/1.73sqm Normal [facility] ([place] Comment on above: Result Comment: GFR Population [...] MDW, CMP, GFR, DIFF, ALC, TROPHS #### [address] [address] .Manual Diffon 09-07-2023 Bands 2.0 % Normal 0.0-5.0 [facility] ([place] Comment on above: Performed By: #### C BC, MORPH, MDW, CMP, GFR, DIFF, ALC, TROPHS #### [address] [address] Basophil %, Manual 0.0 % Normal 0.0-2.5 [facility] ([place]) Comment on above: Performed By: #### C BC, MORPH, MDW, CMP, GFR, DIFF, ALC, TROPHS #### [address] [address] Basophil, Abs Manual 0.0 10 3/mcL Normal 0.0-0.2 [facility] ([place]) Comment on above: Performed By: #### C BC, MORPH, MDW, CMP, GFR, DIFF, ALC, TROPHS #### [address] [address] Eosinophil %, Manual 0.0 % Normal 0.0-7.0 [facility] ([place] Comment on above: Performed By: #### C BC, MORPH, MDW, CMP, GFR, DIFF, ALC, TROPHS #### [address] [address] Eosinophil, Abs Manual 0.0 10 3/mcL Normal 0.0-0.4 [facility] ([place] Comment on above: Performed By: #### C BC, MORPH, MDW, CMP, GFR, DIFF, ALC, TROPHS #### [address] [address] Lymphocyte %, Manual 67.0 % High 10.0-50.0 [facility] ([place] Comment on above: Performed By: #### C BC, MORPH, MDW, CMP, GFR, DIFF, ALC, TROPHS #### [address] [address] Lymphocyte, Abs Manual 1.3 10 3/mcL Normal 0.8-3.9 [facility] ([place] Comment on above: Performed By: #### C BC, MORPH, MDW, CMP, GFR, DIFF, ALC, TROPHS #### [address] [address] Metamyelocyte 1.0 % Normal [facility] ([place] Comment on above: Performed By: #### C BC, MORPH, MDW, CMP, GFR, DIFF, ALC, TROPHS #### [address] [address] Monocyte %, Manual 3.0 % Normal 1.7-13.0 [facility] ([place]) Comment on above: Performed By: #### C BC, MORPH, MDW, CMP, GFR, DIFF, ALC, TROPHS #### [address] [address] Monocyte, Abs Manual 0.1 10 3/mcL Low 0.2-1.0 [facility] ([place]) Comment on above: Performed By: #### C BC, MORPH, MDW, CMP, GFR, DIFF, ALC, TROPHS #### [address] [address] Neutrophil %, Manual 27.0 % Low 37.0-80.0 [facility] ([place] Comment on above: Performed By: #### C BC, MORPH, MDW, CMP, GFR, DIFF, ALC, TROPHS #### [address] [address] Neutrophil, Abs Manual 0.6 10 3/mcL Low 2.9-6.2 [facility] ([place] Comment on above: Performed By: #### C BC, MORPH, MDW, CMP, GFR, DIFF, ALC, TROPHS #### [address] [address] Nucleated RBC 0.0 /100 WBC Normal [facility] ([place] Comment on above: Performed By: #### C BC, MORPH, MDW, CMP, GFR, DIFF, ALC, TROPHS #### [address] [address] .Morphon 09-07-2023 Anisocytosis Ql (Bld) 1+ Normal [facility] ([place]) Comment on above: Performed By: #### C BC, MORPH, MDW, CMP, GFR, DIFF, ALC, TROPHS #### [address] [address] Macrocytosis 1+ Normal [facility] ([place] Comment on above: Performed By: #### C LYNNE BERRY MDW, CMP, GFR, DIFF, ALC, TROPHS #### [address] [address] Ovalocytes 1+ Normal [facility] ([place] Comment on above: Performed By: #### C LYNNE BERRY MDW, CMP, GFR, DIFF, ALC, TROPHS #### [address] [address] Platelet Estimate Decreased Normal [facility] ([place] Comment on above: Performed By: #### C LYNNE BERRY MDW, CMP, GFR, DIFF, ALC, TROPHS #### [address] [address] B12on 09-07-2023 Cobalamin (Vitamin B12) [Mass/Vol] 563 pg/mL Normal 211-911 [facility] ([place] Comment on above: Performed By: #### C LYNNE BERRY MDW, CMP, GFR, DIFF, ALC, TROPHS #### [address] [address] CBCon 09-07-2023 Erythrocyte distribution width (RBC) [Ratio] 17.4 % High 11.5-14.5 [facility] ([place] Comment on above: Performed By: #### C LYNNE BERRY MDW, CMP, GFR, DIFF, ALC, TROPHS #### [address] [address] Hematocrit (Bld) [Volume fraction] 34.4 % Low 42.0-52.0 [facility] ([place] Comment on above: Performed By: #### C LYNNE BERRY MDW, CMP, GFR, DIFF, ALC, TROPHS #### [address] [address] Hgb 11.7 G/dL Low 14.0-18.0 [facility] ([place] Comment on above: Performed By: #### C BC, MORPH, MDW, CMP, GFR, DIFF, ALC, TROPHS #### [address] [address] MCH (RBC) [Entitic mass] 34.7 pg High 27.0-31.2 [facility] ([place] Comment on above: Performed By: #### C KRISTI, LYNNE, MDW, CMP, GFR, DIFF, ALC, TROPHS #### [place] [phone] MCHC 34.1 G/dL Normal 31.8-35.4 [facility] ([place] Comment on above: Performed By: #### C KRISTI, LYNNE, MDW, CMP, GFR, DIFF, ALC, TROPHS #### [place] [phone] MCV (RBC) [Entitic vol] 101.9 fL High 80.0-94.0 [facility] ([place] Comment on above: Performed By: #### C KRISTI, LYNNE, MDW, CMP, GFR, DIFF, ALC, TROPHS #### [place] [phone] Platelet 64 10 3/mcL Low 130-400 [facility] ([place] Comment on above: Performed By: #### C KRISTI, LYNNE, MDW, CMP, GFR, DIFF, ALC, TROPHS #### [address] [address] Platelet mean volume (Bld) [Entitic vol] 8.1 fL Normal 7.4-10.4 [facility] ([place] Comment on above: Performed By: #### C KRISTI, LYNNE, MDW, CMP, GFR, DIFF, ALC, TROPHS #### [place] [phone] RBC 3.38 10 6/mcL Low 4.04-6.13 [facility] ([place] Comment on above: Performed By: #### C KRISTI, LYNNE, MDW, CMP, GFR, DIFF, ALC, TROPHS #### [place] [phone] WBC 2.0 10 3/mcL Low 4.6-10.8 [facility] ([place] Comment on above: Performed By: #### C BC, MORPH, MDW, CMP, GFR, DIFF, ALC, TROPHS #### [address] [address] CMPon 09-07-2023 BUN/Creatinine Ratio 10 ratio Normal 7-27 [facility] ([place] Comment on above: Performed By: #### C BC, MORPH, MDW, CMP, GFR, DIFF, ALC, TROPHS #### [address] [address] Calcium [Mass/Vol] 8.7 mg/dL Normal 8.4-10.2 [facility] ([place] Comment on above: Performed By: #### C BC, MORPH, MDW, CMP, GFR, DIFF, ALC, TROPHS #### [address] [address] Chloride [Moles/Vol] 106 mmol/L Normal 98-107 [facility] ([place] Comment on above: Performed By: #### C BC, MORPH, MDW, CMP, GFR, DIFF, ALC, TROPHS #### [address] [address] CO2 [Moles/Vol] 28 mmol/L Normal 23-31 [facility] ([place] Comment on above: Performed By: #### C BC, MORPH, MDW, CMP, GFR, DIFF, ALC, TROPHS #### [address] [address] Creatinine [Mass/Vol] 0.58 mg/dL Low 0.70-1.30 [facility] ([place]) Comment on above: Performed By: #### C BC, MORPH, MDW, CMP, GFR, DIFF, ALC, TROPHS #### [address] [address] Electrolyte Balance 13.0 mEq/L Normal 4.0-15.0 [facility] ([place] Comment on above: Performed By: #### C BC, MORPH, MDW, CMP, GFR, DIFF, ALC, TROPHS #### [address] [address] Glucose [Mass/Vol] 88 mg/dL Normal 80-115 [facility] ([place] Comment on above: Performed By: #### C KRISTI, LYNNE, W, CMP, GFR, DIFF, ALC, TROPHS #### [address] [address] Potassium [Moles/Vol] 3.8 mmol/L Normal 3.5-5.1 [facility] ([place]) Comment on above: Performed By: #### C KRISTI, LYNNE, MDW, CMP, GFR, DIFF, ALC, TROPHS #### [address] [address] Sodium [Moles/Vol] 147 mmol/L High 136-145 [facility] ([place] Comment on above: Performed By: #### C KRISTI, LYNNE, JOHNNIE, CMP, GFR, DIFF, ALC, TROPHS #### [address] [address] Urea nitrogen [Mass/Vol] 6 mg/dL Low 7-18 [facility] ([place] Comment on above: Performed By: #### C KRISTI, JOHNNIE BATISTA, CMP, GFR, DIFF, ALC, TROPHS #### [address] [address] HFPon 09-07-2023 Bili Indirect 0.3 mg/dL Normal [facility] ([place] Comment on above: Performed By: #### C KRISTI, JOHNNIE BATISTA, CMP, GFR, DIFF, ALC, TROPHS #### [address] [address] Albumin Level 3.1 G/dL Low 3.4-4.8 [facility] ([place] Comment on above: Performed By: #### C KRISTI, LYNNE, W, CMP, GFR, DIFF, ALC, TROPHS #### [address] [address] Albumin/Globulin [Mass ratio] 0.8 {ratio} Low 1.1-2.5 [facility] ([place] Comment on above: Performed By: #### C BC, MORPH, MDW, CMP, GFR, DIFF, ALC, TROPHS #### [address] [address] ALP [Catalytic activity/Vol] 179 U/L High 40-135 [facility] ([place] Comment on above: Performed By: #### C BC, MORPH, MDW, CMP, GFR, DIFF, ALC, TROPHS #### [address] [address] ALT [Catalytic activity/Vol] 128 U/L High 16-63 [facility] ([place]) Comment on above: Performed By: #### C BC, LYNNE, MDW, CMP, GFR, DIFF, ALC, TROPHS #### [address] [address] AST [Catalytic activity/Vol] 261 U/L High 10-40 [facility] ([place]) Comment on above: Performed By: #### C BC, LYNNE, MDW, CMP, GFR, DIFF, ALC, TROPHS #### [address] [address] Bili Direct 0.3 mg/dL High 0.0-0.2 [facility] ([place] Comment on above: Result Comment: Use of this assay is not recommended for patients undergoing treatment with eltrombopag due to the potential for falsely elevated results. Performed By: #### C BC, LYNNE, MDW, CMP, GFR, DIFF, ALC, TROPHS #### [place] [phone] Bili Total 0.6 mg/dL Normal 0.2-1.0 [facility] ([place] Comment on above: Result Comment: Use of this assay is not recommended for patients undergoing treatment with eltrombopag due to the potential for falsely elevated results. Performed By: #### C BC, MORPH, MDW, CMP, GFR, DIFF, ALC, TROPHS #### [address] [address] Globulin 3.9 G/dL Normal [facility] ([place] Comment on above: Performed By: #### C BC, MORPH, W, CMP, GFR, DIFF, ALC, TROPHS #### [place] [id number] [place], [place] [address] Total Protein 7.0 G/dL Normal 6.4-8.2 [facility] ([place] Comment on above: Performed By: #### C KRISTI, LYNNE, W, CMP, GFR, DIFF, ALC, TROPHS #### [facility] [address] [place], [place] [address] LABORATORYOrdered By: SYSTEM SYSTEM on 09-07-2023 25-hydroxyvitamin [...] 09-07-2023 Magnesium [Mass/Vol] 1.5 mg/dL Low 1.8-2.4 [facility] ([place] Comment on above: Performed By: #### C BC, MORPH, MDW, CMP, GFR, DIFF, ALC, TROPHS #### [place] [phone] No Panel InformationOrdered By: SYSTEM SYSTEM on 09-07-2023 Globulin 3.9 G/dL Invalid Interpretation Code AO ADM SS VIDHon 09-07-2023 Vit. D 25-Hydroxy 16.9 ng/mL Normal [facility] ([place] Comment on above: Result Comment: Inte rpretive Values Based on Total 25(OH) Vitamin D: Deficient <20 ng/mL Insufficient 20 - <30 ng/mL Sufficient 30-100 ng/mL Performed By: #### C BC, MORPH, MDW, CMP, GFR, DIFF, ALC, TROPHS #### [facility] [address] [place], [place] [address] XR SHOULDER MINIMUM 2 VIEWS RIGHTon 07-18-2023 [...] 07/18/2023 11:13:46 AM Ordering Provider: BRANDY Meeks [facility] ([place]R SHOULDER MINIMUM 2 VIEWS RIGHTon 07-10-2023 [...] Sign Date: 07/10/2023 7:21:59 AM Ordering Provider: [facility] ([place] SHOULDER MINIMUM 2 VIEWS RIGHT ORIGINAL [...] Sign Date: 07/10/2023 7:19:13 AM Ordering Provider: [facility]) XR SHOULDER MINIMUM 2 VIEWS RIGHT [...] Sign Date: 07/10/2023 6:05:42 AM Ordering Provider: [facility] ([place] LABORATORYOrdered By: Elliott Vitale on 09-06-2021 Albumin [...] Chemistry S ORon 05-30-2019 OPERATIVE REPORT Normal [facility] [place] DATE OF SERVICE: PREOPERATIVE DIAGNOSIS: Left [...] loss about 20 mL. Catracho Longo MD [id number] SSI File#: [id number] Verified/Reviewed by 06/10/19 132Rae [facility]ADA [facility] PATIENT NAME: JENNIFER YORK [address] MEDICAL REC #: [id number] [place] [address] ADMIT DATE: DISCHARGE DATE: OPERATIVE REPORT ATTENDING PHY: Catracho Longo MD [facility] SURG 05-30-2019 SURG ------- Patient: [...] aggregate. The tissue has ramirez cut surface. City Clerk sections are submitted in cassette A1. MICROSCOPIC DESCRIPTION One Man stained slide examined. COPIES TO: No Family Physician given Catracho Longo MD Signed Verified/Reviewed by CR HADLEY MD 06/01/19 This dictation was created using voice recognition software. Phonetic and/or minor grammatical errors may exist. [facility] NAME: ROHANDARIUSZJENNIFER R Pathology and Laboratory Medicine UNIT#: [id number] LOC: [facility] Bundle Clerk: Priti Szymanski M.D. ROOM/BED: [facility] : 60 AGE/SEX: 59/M ORD.Catracho Castelan MD END OF REPORT Normal [facility] [place] Vital Signs Date Time Vital Sign Value Performing Clinician Facility 02-03-2025 18:18-0400 Body temperature 97.8 [degF] Dr. Jennifer Villaseñor MD Work Phone: [facility] 02-03-2025 18:18-0400 Diastolic blood pressure 74 mm[Hg] Dr. Jennifer Villaseñor MD Work Phone: [facility] 02-03-2025 18:18-0400 Heart rate 82 /min Dr. Jennifer Villaseñor MD Work Phone: [facility] 02-03-2025 18:18-0400 Respiratory rate 16 /min Dr. Jennifer Villaseñor MD Work Phone: [facility] 02-03-2025 18:18-0400 SaO2% (BldA) [Mass fraction] 99 % Dr. Jennifer Villaseñor MD Work Phone: [facility] 02-03-2025 18:18-0400 Systolic blood pressure 138 mm[Hg] Dr. Jennifer Villaseñor MD Work Phone: [facility] 02-03-2025 11:54-0400 Body height 185.[address] Jennifer Villaseñor MD Work Phone: [facility] 10-13-2024 14:17-0500 Body temperature 98.6 [degF] CINDY [employer] [facility] 10-13-2024 14:17-0500 Diastolic Blood Pressure Non-Invasive 74 mm[Hg] CINDY [employer] [facility] 10-13-2024 14:17-0500 Heart rate 93 /min CINDY [employer] [facility] 10-13-2024 14:17-0500 Reason For Taking VItal Signs CINDY [employer] [facility] 10-13-2024 14:17-0500 Respiratory rate 16 /min CINDY [employer] [facility] 10-13-2024 14:17-0500 Systolic Blood Pressure Non-Invasive 101 mm[Hg] CINDY [employer] [facility] 10-13-2024 11:03-0500 Body temperature 98.96 [degF] CINDY [employer] [facility] 10-13-2024 11:03-0500 Diastolic Blood Pressure Non-Invasive 64 mm[Hg] CINDY [employer] [facility] 10-13-2024 11:03-0500 Heart rate 99 /min CINDY [employer] [facility] 10-13-2024 11:03-0500 Reason For Taking VItal Signs CINDY [employer] [facility] 10-13-2024 11:03-0500 Respiratory rate 16 /min CINDY DAVIONER [employer] [facility] 10-13-2024 11:03-0500 Systolic Blood Pressure Non-Invasive 94 mm[Hg] CINDY RICARDOER [employer] [facility] 10-13-2024 09:30-0500 Respiratory rate 16 /min CINDY [employer] [facility] 10-13-2024 06:58-0500 Body temperature 99.32 [degF] CINDY DAVIONER [employer] [facility] 10-13-2024 06:58-0500 Diastolic Blood Pressure Non-Invasive 92 mm[Hg] CINDY RICARDO[employer] [facility] 10-13-2024 06:58-0500 Heart rate 92 /min CINDY DAVIONER [employer] [facility] 10-13-2024 06:58-0500 Reason For Taking VItal Signs CINDY BAILEY [employer] [facility] 10-13-2024 06:58-0500 Systolic Blood Pressure Non-Invasive 118 mm[Hg] CINDY R[employer] [facility] 10-13-2024 04:46-0500 Heart rate 86 /min CINDY [employer] [facility] 10-13-2024 00:11-0500 Heart rate 86 /min CINDY [employer] [facility] 10-12-2024 21:57-0500 Body height 185.4 cm CINDYBear BAILEY [employer] [facility] 10-12-2024 21:57-0500 Body weight 81.1 kg CINDY BAILEY [employer] [facility] 10-12-2024 21:57-0500 Body weight 23.59 kg/m2 CINDY B[employer]LEY [employer] [facility] 10-12-2024 05:19-0500 Heart rate 78 /min CINDY BAI[employer] [facility] 10-11-2024 08:12-0500 SaO2% (BldA) [Mass fraction] 90.5 % CINDYBear BAILEY [employer] [facility] 10-10-2024 06:21-0500 Body weight 81.7 kg CINDYBear BAILEY [employer] [facility] 10-08-2024 17:00-0500 Mean blood pressure 85 mm[Hg] CINDY DAVION[employer] [facility] 10-08-2024 16:30-0500 Mean blood pressure 93 mm[Hg] CINDY DAVION[employer] [facility] 10-08-2024 16:15-0500 Mean blood pressure 89 mm[Hg] CINDYBear RICARDOER [employer] [facility] 10-08-2024 14:20-0500 Blood Pressure Cuff Size CINDY BAILEY [employer] [facility] 10-08-2024 14:20-0500 Blood Pressure Location CINDY BAILEY [employer] [facility] 10-08-2024 14:20-0500 Blood Pressure Method CINDY B[employer] [facility] 08-05-2024 21:02-0500 Diastolic Blood Pressure Non-Invasive 90 mm[Hg] EMILIE FROMMELT DO [facility] 08-05-2024 21:02-0500 Heart rate 90 /min EMILIE FROMMELT DO [facility] 08-05-2024 21:02-0500 Respiratory rate 18 /min EMILIE FROMMELT DO [facility] 08-05-2024 21:02-0500 Systolic Blood Pressure Non-Invasive 150 mm[Hg] EMILIE FROMMELT DO [facility] 08-05-2024 18:06-0500 Diastolic Blood Pressure Non-Invasive 94 mm[Hg] EMILIE FROMMELT DO [facility] 08-05-2024 18:06-0500 Heart rate 93 /min EMILIE FROMMELT DO [facility] 08-05-2024 18:06-0500 Respiratory rate 18 /min EMILIE FROMMELT DO [facility] 08-05-2024 18:06-0500 Systolic Blood Pressure Non-Invasive 153 mm[Hg] EMILIE FROMMELT DO [facility] 08-05-2024 16:37-0500 Blood Pressure Cuff Size EMILIE FROMMELT DO [facility] 08-05-2024 16:37-0500 Blood Pressure Location EMILIE FROMMELT DO [facility] 08-05-2024 16:37-0500 Blood Pressure Method EMILIE FROMMELT D O [facility] 08-05-2024 16:37-0500 Body height 185.4 cm EMILIE FROMALIXT DO [facility] 08-05-2024 16:37-0500 Body temperature 99.32 [degF] EMILIE FROMMELT DO [facility] 08-05-2024 16:37-0500 Body weight 84.1 kg EMILIE FROMMELT DO [facility] 08-05-2024 16:37-0500 Diastolic Blood Pressure Non-Invasive 103 mm[Hg] EMILIE JAMEST DO [facility] 08-05-2024 16:37-0500 Heart rate 90 /min MEILIE JAMEST DO [facility] 08-05-2024 16:37-0500 Respiratory rate 18 /min EMILIE JAMEST DO [facility] 08-05-2024 16:37-0500 Systolic Blood Pressure Non-Invasive 154 mm[Hg] EMILIE JAMEST DO [facility] 05-26-2024 06:08-0400 Diastolic Blood Pressure Non-Invasive 69 mm[Hg] NIDAL CHOUJAA DO [facility] 05-26-2024 06:08-0400 Heart rate 66 /min NIDAL CHOUJAA DO [facility] 05-26-2024 06:08-0400 Respiratory rate 16 /min NIDAL CHOUJAA DO [facility] 05-26-2024 06:08-0400 Systolic Blood Pressure Non-Invasive 123 mm[Hg] NIDAL CHOUJAA DO [facility] 05-26-2024 03:32-0400 Diastolic Blood Pressure Non-Invasive 67 mm[Hg] NIDAL CHOUJAA DO [facility] 05-26-2024 03:32-0400 Heart rate 83 /min NIDAL CHOUJAA DO [facility] 05-26-2024 03:32-0400 Systolic Blood Pressure Non-Invasive 113 mm[Hg] NIDAL CHOUJAA DO [facility] 05-26-2024 03:02-0400 Diastolic Blood Pressure Non-Invasive 69 mm[Hg] NIDAL CHOUJAA DO [facility] 05-26-2024 03:02-0400 Heart rate 85 /min NIDAL CHOUJAA DO [facility] 05-26-2024 03:02-0400 [facility] 20 /[facility] 05-26-2024 03:02-0400 Systolic Blood Pressure Non-Invasive 117 mm[Hg] NIDAL CHOUJAA DO [facility] 05-26-2024 02:11-0400 Body temperature 98.06 [degF] NIDAL CHOUJAA DO [facility] 05-26-2024 02:11-0400 Body weight 80.8 kg NIDAL CHOUJAA DO [facility] 05-26-2024 02:11-0400 Respiratory rate 20 /[facility] 05-17-2024 07:13-0400 Blood Pressure Cuff Size JANET SOSA MD [facility] 05-17-2024 07:13-0400 Blood Pressure Location JANET SOSA MD [facility] 05-17-2024 07:13-0400 Blood Pressure Method JANET SOSA MD [facility] 05-17-2024 07:13-0400 Body temperature 98.24 [degF] JANET SOSA MD [address] 05-17-2024 07:13-0400 Diastolic Blood Pressure Non-Invasive 69 mm[Hg] JANET SOSA MD [address] [place] [address] 05-17-2024 07:13-0400 Heart rate 77 /min JANET SOSA MD [address] [place] [address] 05-17-2024 07:13-0400 Respiratory rate 16 /min JANET SOSA MD [address] [place] [address] 05-17-2024 07:13-0400 Systolic Blood Pressure Non-Invasive 107 mm[Hg] JANET SOSA MD [address] [place] [address] 05-17-2024 03:05-0400 Body temperature 97.88 [degF] JANET SOSA MD [address] [place] [address] 05-17-2024 03:05-0400 Diastolic Blood Pressure Non-Invasive 62 mm[Hg] JANET SOSA MD [address] [place] [address] 05-17-2024 03:05-0400 Heart rate 82 /min JANET SOSA MD [address] [place] [address] 05-17-2024 03:05-0400 Respiratory rate 14 /min JANET SOSA MD [address] [place] [address] 05-17-2024 03:05-0400 Systolic Blood Pressure Non-Invasive 108 mm[Hg] JANET SOSA MD [address] 05-16-2024 22:44-0400 Body temperature 98.06 [degF] JANET SOSA MD [address] [place] [address] 05-16-2024 22:44-0400 Diastolic Blood Pressure Non-Invasive 66 mm[Hg] JANET SOSA MD [address] 05-16-2024 22:44-0400 Heart rate 75 /min JANET SOSA MD [address] [place] [address] 09-30-2024 22:44-0400 Respiratory rate 16 /min JANET SOSA MD [facility] 05-16-2024 22:44-0400 Systolic Blood Pressure Non-Invasive 107 mm[Hg] JANET SOSA MD [facility] 05-16-2024 19:08-0400 Heart rate 61 /min JANET SOSA MD [facility] 05-16-2024 16:56-0400 Heart rate 74 /min JANET SOSA MD [facility] 05-16-2024 11:34-0400 Blood Pressure Cuff Size JANET SOSA MD [facility] 05-16-2024 11:34-0400 Blood Pressure Location JANET SOSA MD [facility] 05-16-2024 11:34-0400 Blood Pressure Method JANET SOSA MD [facility] 05-16-2024 11:34-0400 Heart rate 73 /min JANET SOSA MD [facility] 05-16-2024 06:59-0400 Blood Pressure Cuff Size JANET SOSA MD [facility] 05-16-2024 06:59-0400 Blood Pressure Location JANET SOSA MD [facility] 05-16-2024 06:59-0400 Blood Pressure Method JANET SOSA MD [facility] 05-16-2024 02:21-0400 Body height 185.4 cm JANET SOSA MD [facility] 05-16-2024 02:21-0400 Body weight 85.7 kg JANET SOSA MD [facility] 05-16-2024 02:21-0400 Body weight 24.93 kg/m2 JANET SOSA MD [facility] 05-15-2024 15:30-0400 Body weight 85.7 kg JANET SOSA MD [facility] 05-15-2024 14:26-0400 Diastolic Blood Pressure Non-Invasive 89 mm[Hg] ALEXANDRA PALAFOX MD [facility] 05-15-2024 14:26-0400 Heart rate 90 /min ALEXANDRA PALAFOX MD [facility] 05-15-2024 14:26-0400 Mean blood pressure 103 mm[Hg] ALEXANDRA PALAFOX MD [facility] 05-15-2024 14:26-0400 Respiratory rate 16 /min ALEXANDRA PALAFOX MD [facility] 05-15-2024 14:26-0400 Systolic Blood Pressure Non-Invasive 132 mm[Hg] ALEXANDRA PALAFOX MD [facility] 05-15-2024 12:35-0400 Diastolic Blood Pressure Non-Invasive 90 mm[Hg] ALEXANDRA PALAFOX MD [facility] 05-15-2024 12:35-0400 Heart rate 93 /min ALEXANDRA PALAFOX MD [facility] 05-15-2024 12:35-0400 Mean blood pressure 102 mm[Hg] ALEXANDRA PALAFOX MD [facility] 05-15-2024 12:35-0400 Respiratory rate 16 /min ALEXANDRA PALAFOX MD [facility] 05-15-2024 12:35-0400 Systolic Blood Pressure Non-Invasive 130 mm[Hg] ALEXANDRA PALAFOX MD [facility] 05-15-2024 11:06-0400 Blood Pressure Location ALEXANDRA PALAFOX MD [facility] 05-15-2024 11:06-0400 Body temperature 99.14 [degF] ALEXANDRA PALAFOX MD [facility] 05-15-2024 11:06-0400 Diastolic Blood Pressure Non-Invasive 66 mm[Hg] ALEXANDRA PALAFOX MD [facility] 05-15-2024 11:06-0400 Heart rate 67 /min ALEXANDRA PALAFOX MD [facility] 05-15-2024 11:06-0400 Respiratory rate 16 /min ALEXANDRA PALAFOX MD [facility] 05-15-2024 11:06-0400 Systolic Blood Pressure Non-Invasive 145 mm[Hg] ALEXANDRA PALAFOX MD [facility] 03-30-2024 07:32-0400 Diastolic Blood Pressure Non-Invasive 95 mm[Hg] DR MECCA SALEEM MD [facility] 03-30-2024 07:32-0400 Heart rate 83 /min DR MECCA SALEEM MD [facility] 03-30-2024 07:32-0400 Respiratory rate 18 /min DR MECCA SALEEM MD [facility] 03-30-2024 07:32-0400 Systolic Blood Pressure Non-Invasive 148 mm[Hg] DR MECCA SALEEM MD [facility] 03-29-2024 23:05-0400 Diastolic Blood Pressure Non-Invasive 77 mm[Hg] DR MECCA SALEEM MD [address] [place] [address] 03-29-2024 23:05-0400 Heart rate 82 /min DR MECCA SALEEM MD [facility] 03-29-2024 23:05-0400 Respiratory rate 18 /min DR MECCA SALEEM MD [facility] 03-29-2024 23:05-0400 Systolic Blood Pressure Non-Invasive 127 mm[Hg] DR MECCA SALEEM MD [facility] 03-29-2024 22:56-0400 Body weight [address] MECCA SALEEM MD [facility] 03-29-2024 20:17-0400 Diastolic Blood Pressure Non-Invasive 96 mm[Hg] DR MECCA SALEEM MD [facility] 03-29-2024 20:17-0400 Heart rate 79 /min DR MECCA SALEEM MD [address] [place] [address] 03-29-2024 20:17-0400 Respiratory rate 13 /min DR MECCA SALEEM MD [facility] 03-29-2024 20:17-0400 Systolic Blood Pressure Non-Invasive 150 mm[Hg] DR MECCA SALEEM MD [facility] 03-29-2024 17:29-0400 Body temperature 99.14 [degF] DR MECCA SALEEM MD [facility] 03-29-2024 17:29-0400 Heart rate 91 /min DR MECCA SALEEM MD [facility] 12-25-2023 12:50-0400 Body temperature 98.3 [degF] Dr. Jennifer Villaseñor Work Phone: [facility] 12-25-2023 12:50-0400 Diastolic blood pressure 75 mm[Hg] Dr. Jennifer Villaseñor Work Phone: [facility] 12-25-2023 12:50-0400 Heart rate 80 /min Dr. Jennifer Villaseñor Work Phone: [facility] 12-25-2023 12:50-0400 Respiratory rate 18 /min Dr. Jennifer Villaseñor Work Phone: [facility] 12-25-2023 12:50-0400 SaO2% (BldA) [Mass fraction] 95 % Dr. Jennifer Villaseñor Work Phone: [facility] 12-25-2023 12:50-0400 Systolic blood pressure 106 mm[Hg] Dr. Jennifer Villaseñor Work Phone: [facility] 12-25-2023 04:01-0400 Body mass index (BMI) [Ratio] 23.5 kg/m2 Dr. Jennifer Villaseñor Work Phone: [facility] 12-25-2023 04:01-0400 Body weight 80.[address] Jennifer Villaseñor Work Phone: [facility] 12-19-2023 01:50-0400 Body height 185.[address] Jennifer Villaseñor Work Phone: [facility] 12-19-2023 01:50-0400 Body mass index (BMI) [Ratio] 22.4 kg/m2 Dr. Jennifer Villaseñor Work Phone: [facility] 12-19-2023 01:50-0400 Body weight 76.[address] Jennifer Villaseñor Work Phone: [facility] 12-19-2023 01:29-0400 Body temperature 98.5 [degF] Dr. Jennifer Villaseñor Work Phone: [facility] 12-19-2023 01:29-0400 Diastolic blood pressure 115 mm[Hg] Dr. Jennifer Villaseñor Work Phone: [facility] 12-19-2023 01:29-0400 Heart rate 91 /min Dr. Jennifer Villaseñor Work Phone: [facility] 12-19-2023 01:29-0400 Respiratory rate 18 /min Dr. Jennifer Villaseñor Work Phone: [facility] 12-19-2023 01:29-0400 SaO2% (BldA) [Mass fraction] 94 % Dr. Jennifer Villaseñor Work Phone: [facility] 12-19-2023 01:29-0400 Systolic blood pressure 140 mm[Hg] Dr. Jennifer Villaseñor Work Phone: [facility] 11-01-2023 22:15-0400 Diastolic Blood Pressure Non-Invasive 70 mm[Hg] NATHANIEL REICHFIELD DO [facility] 11-01-2023 22:15-0400 Heart rate 68 /min NATHANIEL REICHFIELD DO [facility] 11-01-2023 22:15-0400 Respiratory rate 16 /min NATHANIEL REICHFIELD DO [facility] 11-01-2023 22:15-0400 Systolic Blood Pressure Non-Invasive 118 mm[Hg] NATHANIEL REICHFIELD DO [facility] 11-01-2023 20:12-0400 Diastolic Blood Pressure Non-Invasive 75 mm[Hg] NATHANIEL REICHFIELD DO [facility] 11-01-2023 20:12-0400 Heart rate 61 /min NATHANIEL REICHFIELD DO [facility] 11-01-2023 20:12-0400 Respiratory rate 15 /min NATHANIEL REICHFIELD DO [facility] 11-01-2023 20:12-0400 Systolic Blood Pressure Non-Invasive 115 mm[Hg] NATHANIEL REICHFIELD DO [facility] 11-01-2023 19:14-0400 Body temperature 97.88 [degF] NATHANIEL REICHFIELD DO [facility] 11-01-2023 19:14-0400 Diastolic Blood Pressure Non-Invasive 78 mm[Hg] NATHANIEL REICHFIELD DO [facility] 11-01-2023 19:14-0400 Heart rate 74 /min NATHANIEL REICHFIELD DO [facility] 11-01-2023 19:14-0400 Respiratory rate 16 /[facility] 11-01-2023 19:14-0400 Systolic Blood Pressure Non-Invasive 114 mm[Hg] [facility] 07-18-2023 09:49-[address] BRANDY CASTANEDA MD [facility] 07-18-2023 09:49-0500 Body temperature 97.88 [degF] DR BRANDY CASTANEDA MD [facility] 07-18-2023 09:49-0500 Diastolic Blood Pressure Non-Invasive 92 mm[Hg] DR BRANDY CASTANEDA MD [facility] 07-18-2023 09:49-0500 Heart rate 87 /min DR BRANDY CASTANEDA MD [facility] 07-18-2023 09:49-0500 Respiratory rate 16 /min DR BRANDY CASTANEDA MD [facility] 07-18-2023 09:49-0500 Systolic Blood Pressure Non-Invasive 150 mm[Hg] DR BRANDY CASTANEDA MD [facility] 07-10-2023 05:23-0500 Blood Pressure Location CY MEDEIROS MD [facility] 07-10-2023 05:23-0500 Blood Pressure Method CY MEDEIROS MD [facility] 07-10-2023 05:23-0500 Body height 185.4 cm CY MEDEIROS MD [facility] 07-10-2023 05:23-0500 Body temperature 97.52 [degF] CY MEDEIROS MD [facility] 07-10-2023 05:23-0500 Body weight 81.8 kg CY MEDEIROS MD [facility] 07-10-2023 05:23-0500 Diastolic Blood Pressure Non-Invasive 86 mm[Hg] CY MEDEIROS MD [facility] 07-10-2023 05:23-0500 Heart rate 100 /min CY MEDEIROS MD [facility] 07-10-2023 05:23-0500 Respiratory rate 20 /min CY MEDEIROS MD [facility] 07-10-2023 05:23-0500 Systolic Blood Pressure Non-Invasive 157 mm[Hg] CY MEDEIROS MD [facility] Encounters Encounter Date Encounter Type Care Provider Facility Start: 02-03-2025 End: 02-03-2025 Emergency department patient visit Dr. 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 [employer] [facility] Start: 08-05-2024 End: 08-05-2024 Emergency department patient visit EMILIE FIGUEROA DO [facility] Start: 07-01-2024 ambulatory SUZANNA CARPENTER MD Facilit y:A Start: 05-26-2024 End: 05-26-2024 Emergency department patient visit CHARLIE KENNY DO [facility] Start: 05-15-2024 End: 05-17-2024 Evaluation and management of inpatient JANET SOSA MD [facility] Start: 05-15-2024 End: 05-15-2024 Emergency department patient visit ALEXANDRA PALAFOX MD [facility] Start: 03-29-2024 End: 03-30-2024 Emergency department patient visit DR MECCA SALEEM MD [facility] Start: 02-13-2024 End: 02-13-2024 ambulatory JENNIFER VILLASEÑOR MD Facility:A Start: 02-13-2024 End: 02-13-2024 Patient encounter procedure PHY WO ID REFERRING [facility] Start: 12-25-2023 Non-patient / Non-visit Dr. Jennifer Villaseñor Work Phone: [facility] Work Phone: Start: 12-24-2023 Non-patient / Non-visit Dr. Jennifer Villaseñor Work Phone: [facility] Work Phone: Start: 12-23-2023 Non-patient / Non-visit Dr. Jennifer Villaseñor Work Phone: [facility] Work Phone: Start: 12-22-2023 Non-patient / Non-visit Dr. Jennifer Villaseñor Work Phone: [facility] Work Phone: Start: 12-21-2023 Non-patient / Non-visit Dr. Jennifer Villaseñor Work Phone: [facility] Work Phone: Start: 12-20-2023 Non-patient / Non-visit Dr. Jennifer Villaseñor Work Phone: [facility] Work Phone: Start: 12-19-2023 End: 12-25-2023 Evaluation and management of inpatient Dr. Jennifer Villaseñor Work Phone: [facility] Work Phone: Start: 12-19-2023 Non-patient / Non-visit Dr. Jennifer Villaseñor Work Phone: [facility] Work Phone: Start: 11-01-2023 End: 11-01-2023 Emergency department patient visit NATHANIEL CARUSO [facility] Start: 09-16-2023 End: 09-16-2023 ambulatory JENNIFER VILLASEÑOR MD Facility:B Start: 09-16-2023 End: 09-16-2023 Patient encounter procedure JENNIFER VILLASEÑOR MD [facility] Start: 09-07-2023 End: 09-11-2023 ambulatory JENNIFER VILLASEÑOR MD Facility:B Start: 09-07-2023 End: 09-11-2023 Outreach Lab JENNIFER VILLASEÑOR MD [facility] Start: 09-03-2023 ambulatory JENNIFER VILLASEÑOR MD Faci lity:B Start: 07-18-2023 End: 07-18-2023 Emergency department patient visit DR BRANDY CASTANEDA MD [facility] Start: 07-10-2023 End: 07-10-2023 Emergency department patient visit CY MEDEIROS MD [facility] Start: 03-30-2023 End: 07-06-2023 Physical therapy management PHY WO ID REFERRING [facility] Start: 01-16-2023 End: 01-16-2023 Patient encounter procedure JENNIFER VILLASEÑOR MD [facility] Start: 01-08-2022 End: 01-08-2022 Patient encounter procedure VIVEK BISHOP [employer] [facility] Start: 09-06-2021 End: 09-06-2021 Patient encounter procedure JENNIFER VILLASEÑOR MD [facility] Procedures Date Procedure Procedure Detail [...] Care Activity Detail Author Start: 02-03-2025 [facility] Start: 12-25-2023 Patient discharge [facility] Start: 12-19-2023 Bacteria identified in Blood by Culture Blood Culture [facility] Start: 12-19-2023 Referral to service [facility] Start: 12-19-2023 Referral to occupational therapist [facility] Start: 12-19-2023 [facility]ason[facility] abdomen [facility] Start: 12-19-2023 Vitamin B12 measurement [facility] Start: 12-19-2023 [facility] Start: 12-19-2023 Application of intermittent pneumatic compression device [facility] Start: 12-19-2023 Following clinical pathway protocol [facility] Start: 12-19-2023 Assessment of risk of venous thromboembolism [facility] Start: 12-19-2023 Bacteria identified in Sputum by Culture [facility] Start: 12-19-2023 Fall prevention [facility] Start: 12-19-2023 Incentive spirometry [facility] Start: 12-19-2023 Inhalation therapy procedure [facility] Start: 12-19-2023 Insertion of catheter into peripheral vein [facility] Start: 12-19-2023 Introduction of urinary catheter [facility] Start: 12-19-2023 Measuring intake and output [facility] Start: 12-19-2023 Oxygen therapy [facility] Start: 12-19-2023 Providing care according to standard [facility] Start: 12-19-2023 Provision of activity privileges [facility] Start: 12-19-2023 Referral to service [facility] Start: 12-19-2023 Taking nasal swab [facility] Start: 12-19-2023 Tobacco use cessation education [facility] Start: 12-19-2023 [facility] Start: 12-19-2023 Respiratory pathogens DNA and RNA panel - Respiratory specimen by VIVIANE with probe detection [facility] Start: 12-19-2023 Verification routine [facility] Start: 12-19-2023 Admission procedure [facility] Start: 12-19-2023 End: 12-19-2023 Blood culture [facility] Start: 12-18-2023 [facility] Alanine aminotransfe rase [Enzymatic activity/volume] in Serum or Plasma [facility] Albumin [Mass/volume ] in Serum or Plasma [facility] Alkaline phosphatase [Enzymatic activity/volume] in Serum or Plasma [facility] Anion gap measurement [facility] Aspartate aminotrans ferase [Enzymatic activity/volume] in Serum or Plasma [facility] Bacteria identified in Urine by Culture [facility] Bilirubin, total measurement [facility] BUN/Creatinine ratio [facility] Calcium [Mass/volume ] in Serum or Plasma [facility] Carbon dioxide, tota l [Moles/volume] in Serum or Plasma [facility] Chloride [Moles/volu me] in Serum or Plasma [facility] Creatinine [Moles/vo lume] in Serum or Plasma [facility] Erythrocyte mean corpuscular volume determination [facility] Folate [Mass/volume] in Serum or Plasma [facility] Glucose [Mass/volume ] in Serum or Plasma [facility] Hematocrit [Volume Fraction] of Blood [facility] Hemoglobin [Mass/vol ume] in Blood [facility] Hemoglobin A1c/Hemoglobin.total in Blood [facility] Leukocytes [#/volume ] in Blood [facility] Magnesium [Mass/volu me] in Serum or Plasma [facility] Mean corpuscular hem oglobin concentration determination [facility] Mean corpuscular hem oglobin determination [facility] Measurement of renal function [facility] Neutrophil count [facility] Neutrophil percent differential count [facility] Patient Education ED Alcohol Int oxication ED Rib Fracture ED Head Injury (Adult) [facility] Work Phone: Patient referral [facility] Work Phone: Platelets [#/volume] in Blood [facility] Potassium [Moles/vol ume] in Serum or Plasma [facility] Procalcitonin [Mass/ volume] in Serum or Plasma [facility] Red blood cell count [facility] Red cell distributio n width determination [facility] Sodium [Moles/volume ] in Serum or Plasma [facility] Total protein measurement [facility] Urea nitrogen [Mass/ volume] in Serum or Plasma [facility] Immunizations Immunization Date Immunization Notes Care Provider Jasvir evans 11-20-2020 SARS-CoV-2 mRNA (tozinameran) vaccine JENNIFER VILLASE[facility] 10-30-2020 SARS-CoV-2 mRNA (tozinameran) vaccine JENNIFER VILLASEÑOR MD [facility] Comment on above: Result Comment: 2022: [id number] 06-08-2013 tetanus toxoid, redu ok diphtheria toxoid, and acellular pertussis vaccine, adsorbed JENNIFER VILLASEÑOR [facility] Payers Date Payer Category Payer Self-pay [id number] 2024 Private Health Insurance [id number] 2024 Unknown [id number] 2024 Private Health Insurance [id number] 2024 Unknown [id number] 2024 Unknown [id number] 2023 Medicaid [id number] 2023 Unknown [id number] 1960 Unknown [id number] [id number] 27 1960 Unknown [id number] 2.16.840.1.182710.3.579.2.6 1960 Unknown [id number] 2.16.840.1.371083.3.579.2.6 1960 Unknown [id number] 2.16.840.1.038013.3.579.2.6 1960 Unknown [id number] 2.16.840.1.481920.3.579.2.6 1960 Unknown [id number] 2.16.840.1.926246.3.579.2.6 1960 Unknown [id number] 2.16.840.1.347009.3.579.2.6 1960 Unknown [id number] 2.16.840.1.335479.3.579.2.6 1960 Unknown [id number] 2.16.840.1.499769.3.579.2.6 1960 Unknown [id number] 2.16.840.1.919209.3.579.2.6 1960 Unknown [id number] 2.16.840.1.278582.3.579.2.6 1960 Unknown [id number] 2.16.840.1.715458.3.579.2.6 1960 Unknown [id number] 2.16.840.1.338429.3.579.2.6 1960 Unknown [id number] 2.16.840.1.044141.3.579.2.6 27 Unknown [facility] [id number] Unknown SEL[facility] OTHER 05-16 [id number] Unknown [id number] 2.16.840.1.113098.3.579.2.4 62 Social History Date Type Detail Facility Start: 10-15-2020 End: 05-26-2024 Heavy tobacco smoker (finding) [facility] Sex Assigned At [facility] Start: 08-07-2023 Tobacco smoking status Light tobacco smoker (finding) [facility] Start: 12-19-2023 Tobacco smoking status NHIS Unknown if ever smoked [facility] Start: 11-21-2019 Heavy [facility] Start: 11-21-2019 None [facility] Start: 11-21-2019 Spouse/ Signif icant Other [facility] Start: 11-22-2019 Cigarettes [facility] Start: 1960 Sex Assigned At [facility] Start: 10-21-2016 Sex Male (finding) [facility] Start: 02-03-2025 Tobacco smoking status NHIS Smokes tobacco daily (finding) [facility] Goals Date Patient Goal Desired Activity /State Functional Status Date Assessment Result Facility 10-13-2024 Functional Status Room check performed [facility] 10-13-2024 Functional Status Total Elba [facility] 10-13-2024 Functional Status Elba [facility] 10-13-2024 Functional Status Elba [facility] 10-12-2024 Functional Status Elba [facility] 10-12-2024 Functional Status Elba [facility] 10-12-2024 Functional Status Elba [facility] 10-12-2024 Functional Status Elba [facility] 10-12-2024 Functional Status Elba [facility] 10-11-2024 Functional Status Single level home [facility] 10-11-2024 Functional Status Elba [facility] 10-10-2024 [facility] 10-09-2024 Functional Status low air loss bed [facility] 10-09-2024 Functional [facility] 10-09-2024 Functional Status Done [facility] 10-08-2024 [facility] 10-08-2024 Functional Status Feeding Assist ance Maximum assistance [facility] 05-26-2024 Functional Status [facility] 05-26-2024 Functional Status Ambulation in Cloud [facility] 05-17-2024 Functional Status Refused by family membe r [facility] 05-17-2024 Functional Status Room check performed [facility] 05-17-2024 [facility]-17[facility] 05-16-2024 Functional Status [facility] 05-16-2024 Functional Status Sitting on edge of bed [facility] 05-16-2024 Functional Status [facility] 05-16-2024 Functional Status [facility] 05-16-2024 Functional Status [facility] 05-16-2024 Functional Status [facility] 05-16-2024 Functional Status Min A [facility] 05-16-2024 Functional Status Sensory Deficits None A [facility] 05-15-2024 Functional Status ID band on [facility] 03-30-2024 Functional Status Minimum [facility] 03-30-2024 Functional Status Activity Statu s ADL Sleeps intermittently [facility] 03-30-2024 Functional Status [facility] 03-29-2024 Functional Status Identified as high risk, Room located near nursing station, Room check performed [facility] 12-25-2023 Functional status Ambulates;Bathroom Priv [facility] Work Phone: 11-01-2023 Functional Status Minimum assistance [facility] 11-01-2023 Functional Status Identified as high risk, Room located near nursing station, Bed alert on, Non-Slip footwear, Reoriented, supervised while toileting, Security notified [facility] 07-18-2023 Functional Status Independent [facility] 07-18-2023 Functional Status ID band on Elba Lundberg [facility] 07-10-2023 Functional Status Standard Safet y ID band on, Call device within reach, Bed in low position, Wheels locked, personal items within reach [facility] 03-30-2023 Functional Status Home Living Ad [...] bilat Scour: NT Hip IR: see chart [facility] Mental Status Date Assessment Result Facility 10-13-2024 Mental Status Not oriented to time, Not oriented to situation, Does not interact [facility] 10-13-[address] [facility] 10-12-[address] [facility] 08-05-2024 Mental Status Orientation Oriented x 4 [facility] 05-26-2024 Mental Status Orientation Oriented x 4 [facility] 05-26-2024 Mental Status [facility] 05-17-2024 Mental Status Oriented x 4 [facility] 05-16-2024 Mental Status [facility] 05-16-2024 Mental Status [facility] 05-16-2024 Mental Status [facility] 05-15-2024 Mental Status Orientation Oriented x 4 [facility] 03-30-2024 Mental Status Orientation Oriented x 4 [facility] 03-29-2024 Mental Status [facility] 12-25-2023 Cognitive function Voice/Name [facility] Work Phone: 12-18-2023 Cognitive function Voice/Name [facility] Work Phone: 11-01-2023 Mental Status Orientation Oriented x 4 [facility] 11-01-2023 [facility] 07-18-2023 Mental Status Orientation Oriented x 4 [facility] 07-18-[address] [facility] 07-10-2023 Mental Status Orientation Oriented x 4 [facility] Clinical Notes 01-13-2023 to 02-03-2025 Note Date & Type Note Facility 02-03-2025 Radiology Diagnostic study note [facility] Imaging Services [address] [place], [place] [address] Abdomen/Pelvis W IV Cont ONLY MR#: [id number] Acct: [id number] Name: JENNIFER YORK Rep #: [id number] : 1960 M 64 From: Jil Brunner MD PCP: Dr. Jennifer Villaseñor MD Status: REG ER Study:Abdomen/Pelvis W IV Cont ONLY Date of E xam: 02/03/25 Exam# [id number] Ordering Dr: Mallika Marvin DO EXAM: CT [...] fat. 6. Inguinal hernias, bilaterally. Reading Location: [facility] CC: Dr. Abby Marvin DO; Dr. Jennifer Villaseñor MD ~ Knapsack Sprayer: Signed [facility] 02-03-2025 Radiology Diagnostic study note [facility] Imaging Services [address] [place], [place] [address] Chest without Contrast MR#: [id number] Acct: [id number] Name: JENNIFER YORK Rep #: [id number] : 1960 M 64 From: Salvador Fontenot MD PCP: Dr. Jennifer Villaseñor MD Status: REG ER Study:Chest without Contrast Date of Exam: 02/03/25 Exam# [id number] Ordering Dr: Mallika Marvin DO PROCEDURE: CHEST [...] Minimal amount of perisplenic fluid. Reading Location: [place] [address] CC: Dr. Abby Marvin DO; Dr. Jennifer Villaseñor MD ~ Knapsack Sprayer: Signed [facility] 02-03-2025 Radiology Diagnostic study note [facility] Imaging Services [address] [place] [address] Brain/Head without Contrast MR#: [id number] Acct: [id number] Name: JENNIFER YORK Rep #: [id number] : 1960 M 64 From: Salvador Fontenot MD PCP: Dr. Jennifer Villaseñor MD Status: REG ER Study:Brain/Head without Contrast Date of Exa m: 02/03/25 Exam# [id number] Ordering Dr: Mallika Marvin DO PROCEDURE: BRAIN/HEAD [...] CHRONIC CHANGES. NO ACUTE FINDINGS. Reading Location: [facility] CC: Dr. Abby Marvin DO; Dr. Jennifer Villaseñor MD ~ Knapsack Sprayer: Signed [facility] 10-14-2024 Note . MICRO - Microbiology [...] Locations *1: This test was performed at: [facility], [address] [place] [address], [facility] , [facility] 10-14-2024 Note . MICRO - Microbiology [...] Locations *1: This test was performed at: [facility], [address] [place] [address], [id number] , [facility] 10-13-2024 Hospital Discharge instructions Patient Education 10/13/2024 13:33:31 Influenza, Adult, Gjmd-wm-Xyqp Influenza, Adult Influenza is also called the [...] get better. Your doctor may suggest: Taking jzyw-ojj-dgtgugj medicines. Drinking plenty of fluids. The flu [...] fruit juice). ?Low-calorie sports drinks. Eat bland, qadj-rs-zzptzq foods in small amounts as you are able. These foods include: ?Bananas. ?Applesauce. ?Rice. ?Lean meats. ?[place]. ?Crackers. Do not eat or drink: ?Fluids that have a lot of sugar or caffeine. ?Alcohol. ?Spicy or fatty foods. General instructions Take fjdz-yjr-lqvpzns and prescription medicines only as told by [...] use soap and water, use alcohol-based hand clothes ironer. Keep all follow-up visits as told by [...] It is caused by a virus. Take jrbd-uqq-ziqvvhr and prescription medicines only as told by your doctor. Getting a flu shot every year is the best way to avoid getting the flu. This information is not intended to replace advice given to you by your health care provider. Make sure you discuss any questions you have with your health care provider. Document Released: 05/12/2009 Document Revised: 01/19/2019 Document Reviewed: 01/19/2019 [employer] Patient Education 2020 Add2paper. 10/13/2024 13:33:25 Hypokalemia Hypokalemia Hypokalemia means that [...] hospital. Follow these instructions at home: Take nqfe-bkm-ffgntvp and prescription medicines only as told by [...] cantaloupe, kiwi, oranges, tomatoes, asparagus, and potatoes. ?[place] juice. ?Tomato juice. ?Red meats. ?Yogurt. Keep [...] 08/03/2006 Document Revised: 03/16/2019 Document Reviewed: 03/16/2019 [employer] Patient Education 2020 Add2paper. 10/13/2024 13:33:22 Hypomagnesemia Hypomagnesemia Hypomagnesemia is a [...] do that. Take them as directed. Take sptc-iic-fletixx and prescription medicines only as told by [...] 04/29/2006 Document Revised: 07/16/2018 Document Reviewed: 07/05/2018 [employer] Patient Education 2020 Add2paper. Follow Up Care 10/08/2024 14:17:41 With:JENNIFER VILLASEÑOR MD Address: [address] [place] [address]- When: Unknown [facility] 10-13-2024 Note Discharge Instructions Thank you for allowing [facility] to assist you with your healthcare needs. The following is important discharge information regarding your hospital visit. Your Care Team [facility] Your Diagnosis Alcoholic cirrhosis Alcoholism [...] growth. Antibiotic discontinued. He was placed on [facility] protocol with scheduled Librium and PRN ativan [...] JENNIFER VILLASEÑOR MD Where:[address] [facility] [place] [address]- The Following Activity and Diet Have Been [...] get better. Your doctor may suggest: Taking tgqf-pdq-ihordrj medicines. Drinking plenty of fluids. The flu [...] juice). ? Low-calorie sports drinks. Eat bland, abuk-xe-hwfaav foods in small amounts as you are able. These foods include: ? Bananas. ? Applesauce. ? Rice. ? Lean meats. ? [place]. ? Crackers. Do not eat or drink: ? Fluids that have a lot of sugar or caffeine. ? Alcohol. ? Spicy or fatty foods. General instructions Take zvkn-uec-yazwdfi and prescription medicines only as told by [...] use soap and water, use alcohol-based hand clothes ironer. Keep all follow-up visits as told by [...] It is caused by a virus. Take vlav-zks-ejnuxvc and prescription medicines only as told by your doctor. Getting a flu shot every year is the best way to avoid getting the flu. This information is not intended to replace advice given to you by your health care provider. Make sure you discuss any questions you have with your health care provider. Document Released: 05/12/2009 Document Revised: 01/19/2019 Document Reviewed: 01/19/2019 [employer] Patient Education 2020 Add2paper. Hypokalemia Hypokalemia means that the amount of [...] hospital. Follow these instructions at home: Take sxrv-jeh-shluore and prescription medicines only as told by [...] kiwi, oranges, tomatoes, asparagus, and potatoes. ? [place] juice. ? Tomato juice. ? Red meats. [...] 08/03/2006 Document Revised: 03/16/2019 Document Reviewed: 03/16/2019 [employer] Patient Education 2020 [employer] Hypomagnesemia Hypomagnesemia is a condition in [...] do that. Take them as directed. Take yrgb-jsm-zeadbrb and prescription medicines only as told by [...] 04/29/2006 Document Revised: 07/16/2018 Document Reviewed: 07/05/2018 Else[employer]perpia Patient Education 2020 [employer] Additional Information VACCINATE! IT SAVES LIVES! Members of the community who have not yet received the COVID-19 vaccine and would like to receive it can visit one of [facility] vaccine clinics. There are many vaccine clinic locations within the [facility]. For locations and available times, please visit https://gettheshot.coronavirus.[place].gov/. It is important to note that some COVID mobile vaccine clinics are held outdoors and may be canceled in rainy or stormy conditions. To learn more about pediatric vaccinations (ages 5-11), we invite you to visit the [employer] webpage. https://www.ZEALER.org/pa ges/[email or web address]-Xyovc-Xdtcsyccmjk-Freque wxoe-Tebik-Gppkrabin.html To learn more about the COVID-19 vaccine, we invite you to visit the CDC website for a list of frequently asked questions.https://www.cdc.gov/cor onavirus/2019-ncov/vaccines/faq.h tml [facility] Patient Portal Access Instructions: Stay connected with your healthcare team and access your personal medical information anytime with the [facility] Patient Portal. Please follow the directions below to create your [facility] account: 1.Access the email account you provided upon registration to the hospital/physician office.2.Look for an invitation email from [facility].3.Open the email and access the invitation link: Accept Invitation to [facility].4.Fill in the required allen to create your account. To access your account, visit [employer] [employer]. Click the blue button labeled Access Patient [...] you will allow to register on the [facility] Patient Portal for access to your information. You can also access the [facility] Patient Portal on the [facility] louisa. Simply click on Patient Portal and then log into your account. If you would like to receive a full copy of your medical records, please contact the [facility] Medical Records Department by calling [phone], Thursday through Thursday between 8 a.m. and [...] Call your local pharmacy or go to http://BenchBanking/[email or web address] to find one close to you.3.Make use of household items: Use cat litter or old coffee grounds to dispose medications if other options are not available. Mix your drugs with these household products, seal them in an airtight container and throw it into the garbage. Call [facility]: [phone] to be sure your drugs can be [...] COPY. Signatures Patient Education Materials Influenza, Adult, Afhh-wh-Cnnf Hypokalemia Hypomagnesemia Medication Leaflets My discharge plan and instructions have been reviewed and explained to me and I,JENNIFER YORK understand my current condition and have read and understand these discharge instructions. I have received a written copy of the plan/instructions. If I have questions, I am aware that I should contact my doctor. Patient/City Clerk Signature: Date/Time: Relationship to Patient: ____ Witness Name/Signature: Date/Time: [facility] 10-12-2024 Nurse Progress note Patient was [...] Jessie Smith RN on 10/12/2024 10:21 PM [facility] 10-12-2024 Note Date of Service 10/12/24 [...] by TERESA HERNANDEZ on 10/12/2024 05:09 PM [facility] 10-11-2024 Note Date of Service 10/11/2024 [...] 10/08 from his assisted living facility, [facility]. Patient is an alcoholic with cirrhosis. EMS [...] saw today and recommended a skilled stay. recreation worker is working on [employer] for skilled stay. As long as awake [...] - will likely need to go to [facility] for a while Time Spent 38 minutes spent reviewing past diagnostic tests, reviewing lab results, vital sign trends, medical history, reviewing medications and ordering home medications, examining patient, discussed plan of care with care team, collaborating with physician, and documenting in chart. Digitally Signed by CINDY BAILEY on 10/11/2024 01:57 PM Digitally Signed by CINDY BAILEY on 10/11/2024 07:24 PM [facility] 10-11-2024 Note . MICRO - Microbiology [...] Locations *1: This test was performed at: [facility], [address] [place] [address], [facility] , [facility] 10-10-2024 Note Exam Date Time Procedure Performing Provider Status 10/10/24 3:[address] Head or Brain w/o Contrast JENIFER ROGERS MD; Auth (Verified) [id number] ORIGINAL EXAMINATION: CT HEAD TECHNIQUE: Axial CT [...] 10/10/2024 4:34:44 PM Ordering Provider: CINDY BAILEY [facility]02-24-2025 marketing finance manager Note TC to patient's ex- to gather information/administer SDOH (as patient is experiencing confusion/is in isolation); LVM. Will continue to follow. Digitally Signed by Teresa Mccoy on 10/10/2024 02:14 PM [facility]02-24-2025 Note Date of Service 10/10/2024 Chief [...] by CINDY BAILEY on 10/10/2024 12:29 PM [facility]02-22-2025 Note Date of Service 10/08/2024 Chief [...] hypertension, hyperlipidemia, tremors, and anxiety, presented to [facility] emergency department with the chief complaint of confusion. Patient is a resident of [facility] and was noted by staff to have [...] Status: Employed. 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 Spouse [...] PM Digitally Signed by JYOTI HE MD [facility]02-22-2025 Note* Exam Date Time Procedure Performing Provider Status 10/08/24 3:[address] Head or Brain w/o Contrast TE BADILLO MD; Auth (Verified) [id number] ORIGINAL EXAMINATION: CT OF THE HEAD WITHOUT [...] Sign Date: 10/08/2024 3:42:37 PM Ordering Provider: [facility]02-22-2025 Note* Exam Date Time Procedure Performing Provider Status 10/08/24 3:30 PM XR Chest 1 View AUGUSTIN PRADO MD; A [facility] (Verified) [id number] ORIGINAL EXAMINATION: ONE XRAY VIEW OF THE [...] 10/08/2024 3:39:16 PM Ordering Provider: TONG PIZARRO [facility]02-22-2025 Note* Exam Date Time Procedure Performing Provider Status 10/08/24 2:28 PM EKG [ED AOH] - CV TONG PIZARRO DO; A uth (Verified) ECG Final Report Atrial fibrillation Repol abnrm suggests ischemia, diffuse leads Baseline wander in lead(s) I,III,aVL Compared to ECG at 05/15/2024 15:38:48 Electronic Signature: TONG PIZARRO DO 10/08/2024 15:54:12 [facility]02-22-2025 HCoV 229E RNA VIVIANE+non-probe Ql (Nph) Not Detected *NA* (10/08/24 2:27 PM)AH Auto Viro/Sero [id number] Evaluation + Plan noteExtracted from: Title:History and Physical Author:CINDY BAILEY APRN-IMAGERY INTELLIGENCE Date:10/08/24 1. Altered mental status Acute, new [...] collaborating with physician, and documenting in chart. [facility] 12-20-2024 Hospital Discharge instructions Patient Education [...] www.aa.org to find a local meeting place. [employer] family groups offers support to families of alcohol users. Go to www.alSageCloudn.org National Nisqually On Alcoholism And Drug Dependence at 753-455-3640 or www.ncadd.org Residential alcohol detox programs are [...] awaken Increasing upper abdominal pain Repeated vomiting 1303-6744 [employer]. [address] [place] [address]. All rights reserved. This information is not [...] wet, you can dry it with a men's custom hair piece consultant. If nishi tape was put on and [...] or as directed by your healthcare provider [phone] [employer]. [address] [place] [address], [place] [address]. All rights reserved. This information is not intended as a substitute for professional medical care. Always follow yourhealthcare professional's instructions. Follow Up Care 08/05/2024 16:26:54 With:JENNIFER VILLASEÑOR MD Address: [address] [place] [address]- When:2-4 days [facility] 12-20-2024 Note Discharge Instructions Thank you for allowing [facility] to assist you with your healthcare needs. The following is importantdischarge information regarding your hospital visit. Diagnosis from Today's Visit Alcohol withdrawal Finger fracture What to Do Next Instructions from Your Care Team No qualifying data available. Post Acute Orders No qualifying data available. You Need to Schedule the Following Appointments Follow Up with JENNIFER VILLASEÑOR MD When:Within 2-4 days Where:[place] [address]- Allergies NKA Medications Please ask [...] www.aa.org to find a local meeting place. [employer] family groups offers support to families of alcohol users. Go to www.al-anon.org National Nisqually On Alcoholism And Drug Dependence at 934-388-3286 or www.ncadd.org Residential alcohol detox programs are [...] awaken Increasing upper abdominal pain Repeated vomiting 4072-9582 [employer]. [address] [place] [address]. All rights reserved. This information is not [...] wet, you can dry it with a men's custom hair piece consultant. If nishi tape was put on and [...] or as directed by your healthcare provider [phone] [employer]. [address] [place] [address], [place] [address]. All rights reserved. This information is not intended as a substitute for professional medical care. Always follow yourhealthcare professional's instructions. Additional Information VACCINATE! IT SAVES LIVES! Members of the community who have not yet received the COVID-19 vaccine and would like to receive it can visit one of [facility] vaccine clinics. There are many vaccine clinic locations within the [facility]. For locations and available times, please visit www.gettheshot.coronavirus.[place].gov/. It is important to note that some COVID mobile vaccine clinics are held outdoors and may be canceled in rainy or stormy conditions. To learn more about pediatric vaccinations (ages 5-11), we invite you to visit the [employer] [facility] webpage. https://www.[place].org/pages/4343-Rocff-Xhufkiechcu-Hshwwrgmsw-Vycfk-Dbg stions.htmlTo learn more about the COVID-19 vaccine, we invite you to visit the CDC website for a list of frequently asked questions. https://www.cdc.gov/coronavirus/2019-ncov/vaccines/faq.html [facility] [employer] Patient Portal Access Instructions: Stay connected with your healthcare team and access your personal medical information anytime with the [facility] Patient Portal. If you would like a full copy of your medical records please contact the [facility] Medical Records Department Thursday through Thursday between 8a.m. and 4:30p.m. Please follow the directions below to access the portal: 1.Access the email account you provided upon registration to the [facility].2.Look for an invitation email from [facility].3.Open the email and access the invitation link: Accept Invitation to [facility]4.Fill in the required allen to create your account. Sign into www.iFit with your username and password that you [...] you will allow to register on the [facility] Patient Portal for access to your information. You can also access the [facility] Patient Portal on the [employer] louisa. Simply click on Health Records under Sonicbids and then click on the [employer] logo. HOW TO SAFELY DISPOSE OF PRESCRIPTION [...] Call your local pharmacy or go to http://Cartera Commerce.[employer]rapeutics/0Q1Xy7w to find one close to you.3.Make use of household items: Use cat litter or old coffee grounds to dispose medications if other options arenot available. Mix your drugs with these household products, seal them in an airtight container andthrow it into the garbage. Call [facility]: [phone] to be sure your drugs can be [...] am aware that I should contactmy doctor. Patient/City Clerk Signature: Date/Time: Relationship to Patient: Witness Name/Signature: Date/Time: [facility]12-20-2024 Note* Exam Date Time Procedure Performing Provider Status 08/05/24 5:11 PM XR Chest 1 View Auth (Ve rified) [id number] ORIGINAL EXAMINATION: ONE XRAY VIEW OF THE [...] 08/05/2024 5:21:45 PM Ordering Provider: EMILIE FIGUEROA [facility]10-10-2024 Hospital Discharge instructions Patient Education 05/26/2024 [...] Swelling, pain, or redness in one leg 2280-4112 [employer]. [address] [place] [address], [place] [address]. All rights reserved. This information is not intended as a substitute for professional medical care. Always follow yourhealthcare professional's instructions. Follow Up Care 05/26/2024 02:03:06 With:JENNIFER VILLASEÑOR MD Address: [address] [place] [id number]- When:2-4 days [facility] 10-10-2024 Emergency department Discharge summary Discharge [...] When:Within 2-4 days Where:[address] [facility] [place] [address]- Allergies NKA Medications Please ask [...] Swelling, pain, or redness in one leg 3988-1225 [employer]. [address] [place] [address], [place] [address]. All rights reserved. This information is not intended as a substitute for professional medical care. Always follow yourhealthcare professional's instructions. Additional Information VACCINATE! IT SAVES LIVES! Members of the community who have not yet received the COVID-19 vaccine and would like to receive it can visit one of [facility] vaccine clinics. There are many vaccine clinic locations within the [facility]. For locations and available times, please visit www.gettheshot.coronavirus.[place].gov/. It is important to note that some COVID mobile vaccine clinics are held outdoors and may be canceled in rainy or stormy conditions. To learn more about pediatric vaccinations (ages 5-11), we invite you to visit the [facility] webpage. https://www.[place].org/pages/8708-Kzobl-Mobgxtznunq-Otxfrthkza-Ctugs-Nkc stions.htmlTo learn more about the COVID-19 vaccine, we invite you to visit the CDC website for a list of frequently asked questions. https://www.cdc.gov/coronavirus/2019-ncov/vaccines/faq.html [facility] Patient Portal Access Instructions: Stay connected with your healthcare team and access your personal medical information anytime with the [facility] Patient Portal. If you would like a full copy of your medical records please contact the [facility] Medical Records Department Thursday through Thursday between 8a.m. and 4:30p.m. Please follow the directions below to access the portal: 1.Access the email account you provided upon registration to the hospital.2.Look for an invitation email from [facility].3.Open the email and access the invitation link: Accept Invitation to [facility]4.Fill in the required allen to create your account. Sign into www.iFit with your username and password that you [...] you will allow to register on the [facility] Patient Portal for access to your information. You can also access the [facility] Patient Portal on the [employer] louisa. Simply click on Health Records under Sonicbids and then click on the [employer] logo. HOW TO SAFELY DISPOSE OF PRESCRIPTION [...] Call your local pharmacy or go to http://Cartera Commerce.Trillium Therapeutics/6E1Vj8q to find one close to you.3.Make use of household items: Use cat litter or old coffee grounds to dispose medications if other options arenot available. Mix your drugs with these household products, seal them in an airtight container andthrow it into the garbage. Call [facility]: [phone] to be sure your drugs can be [...] am aware that I should contactmy doctor. Patient/City Clerk Signature: Date/Time: Relationship to Patient: Witness Name/Signature: Date/Time: [facility] [id number] Note ORIGINAL EXAMINATION: ONE XRAY VIEW OF [...] Sign Date: 05/26/2024 2:51:00 AM Ordering Provider: [facility]10-01-2024 Pastoral care Progress note Pastoral Care Note Entered On: 05/17/2024 14:06 EDT Performed On: 05/17/2024 14:05 EDT by Wing Chavez [facility] Type of Pastoral Visit : Initial visit [...] by Wing Chavez on 05/17/2024 02:05 PM [facility] [id number] Hospital Discharge instructions Patient Education 05/17/2024 09:30:41 [...] says it is okay. General instructions Take gyle-jnh-sjygaft and prescription medicines only as told by [...] 08/03/2006 Document Revised: 07/16/2018 Document Reviewed: 07/12/2018 Acision Patient Education 2020 [employer] Inc. Follow Up Care 05/15/2024 15:22:37 With:Kareem Lee, [facility], Address:Unknown When: Unknown Comments:[facility] With:SUZANNA CARPENTER Address: [address] [facility] [place] [address] [phone] Business (1) When:1-2 days Comments:Steroid injections to be completed in IR department at [facility], will call to schedule With:JENNIFER VILLASEÑOR MD Address: [address] [facility] [place] [address]- When:1-2 days Comments:Please call the office to schedule a hospital follow-up appointment. [facility] 10-01-2024 Discharge summary Date of Service 05/17/2024 Discharge Diagnosis Alcohol abuse (F10.10 - ICD-10-CM) Alcoholism (F10.20 - ICD-10-CM) Fall ([id number] - PNED) CHECO (generalized anxiety disorder) (F41.1 [...] completed in the interventional radiology department of [facility]. The department will reach out to [...] by MECCA RODRÍGUEZ on 05/17/2024 08:54 AM [facility] [id number] Note Discharge Instructions Thank you for allowing [facility] to assist you with your healthcare needs. [...] completed in the interventional radiology department of [facility]. The department will reach out to your regarding the scheduling of your injections. Follow Up Appointments Follow Up with SUZANNA CARPENTER When:Within 1-2 days [facility] [facility] [address] [facility] [address]- [phone] [facility] (1) Additional Information: Steroid injections to be completed in IR department at [facility], will call to schedule Follow Up with JENNIFER VILLASEÑOR MD When:Within 1-2 days Where:[address] [place] [address]- Additional Information: Please call the office to [...] Rib fractures Duration: 5 Days Pickup at [facility]/pharmacy #[id number] New ibuprofen (Motrin) 400 Milligram by mouth [...] by mouth Daily at bedtime Pharmacy Information [facility]/pharmacy #[id number]: [address], [place] [id number] [phone] Please take this list to your next [...] may report side effects to FDA at 4-397-FSX-0906. What other drugs will affect acetaminophen and [...] affect acetaminophen and oxycodone, including prescription and zjkx-fgb-reuxurs medicines, vitamins, and herbal products. Not all [...] to ensure that the information provided by [employer]. ('Multum') is accurate, up-to-date, and complete, but no guarantee is made to that effect. Drug information contained herein may be time sensitive. [employer]wbcg information has been compiled for use by healthcare practitioners and consumers in the [place] and therefore [employer] does not warrant that uses outside of the [place] are appropriate, unless specifically indicated otherwise. [employer] drug information does not endorse drugs, diagnose patients or recommend therapy. [employer] drug information isan informational resource designed to [...] effective or appropriate for any given patient. [employer] does not assume any responsibility for any aspect of healthcare administered with the aid of information [employer]wbc[employer] provides. The information contained herein is not intended to cover all possible uses, directions, precautions, warnings, drug interactions, allergic reactions, or adverse effects. If you have questions about the drugs you are taking, check with your doctor, nurse or pharmacist. Copyright 0651-4355 [employer]. Version: 22.. Revision Date: 03/19/2023. Education Materials [...] says it is okay. General instructions Take zmvk-qvv-auhmoht and prescription medicines only as told by [...] 08/03/2006 Document Revised: 07/16/2018 Document Reviewed: 07/12/2018 ElseHy[employer]ia Patient Education 2020 Add[employer]paper. Additional Information VACCINATE! IT SAVES LIVES! Members of the community who have not yet received the COVID-19 vaccine and would like to receive it can visit one of [facility] vaccine clinics. There are many vaccine clinic locations within the [facility]. For locations and available times, please visit https://gettheshot.coronavirus.[place].gov/. It is important to note that some COVID mobile vaccine clinics are held outdoors and may be canceled in rainy or stormy conditions. To learn more about pediatric vaccinations (ages 5-11), we invite you to visit the [employer] [facility] webpage. https://www.[facility].org/pages/2736-Acbwf-Rueztmexpud-Dbejecpfrn-Oymbe-Ulx stions.htmlTo learn more about the COVID-19 vaccine, we invite you to visit the CDC website for a list of frequently asked questions.https://www.cdc.gov/coronavirus/2019-ncov/vaccines/faq.html [facility] Patient Portal Access Instructions: Stay connected with your healthcare team and access your personal medical information anytime with the [facility] Patient Portal. Please follow the directions below to create your [facility] account: 1.Access the email account you provided upon registration to the hospital/physician office.2.Look for an invitation email from [facility].3.Open the email and access the invitation link: AcceptInvitation to [facility].4.Fill in the required allen to create your account. To access your account, visit iFit/Quiet LogisticsOneChart. Click the blue button labeled Access Patient [...] who you will allowto register on the [facility] Patient Portal for access to your information. You can also access the [facility] on the [facility] louisa. Simply click on Patient Portal and then log into your account. If you would like to receive a full copy of your medical records, please contact the [facility] Medical Records Department by calling [phone], Thursday through Thursday between 8 a.m. and [...] Call your local pharmacy or go to http://C[employer]/8J4Ar3u to find one close to you.3.Make use of household items: Use cat litter or old coffee grounds to dispose medications if other options arenot available. Mix your drugs with these household products, seal them in an airtight container andthrow it into the garbage. Call [facility]: [phone] to be sure your drugs can be [...] am aware that I should contactmy doctor. Patient/City Clerk Signature: Date/Time: Relationship to Patient: Witness Name/Signature: Date/Time: [facility] [id number] Discharge summary Date of Service 05/17/2024 Discharge Diagnosis Alcohol abuse (F10.10 - ICD-10-CM) Alcoholism (F10.20 - ICD-10-CM) Fall ([id number] - PNED) CHECO (generalized anxiety disorder) (F41.1 [...] completed in the interventional radiology department of [facility]. The department will reach out to [...] by MECCA RODRÍGUEZ on 05/17/2024 08:54 AM [facility] [id number] [facility] Hospital Progress note Date of Service [...] small right-sided pneumothorax, right 8-12th fractures, and C3mpauouagjc processes fractures of the right. Overall the [...] by FLAQUITA BORJAS on 05/16/2024 07:43 AM [facility] [id number] Neurological surgery Consult note Date of Service [...] male who suffered a mechanical fall at [facility], landing on his right side. Subsequently presented [...] Status: Employed. 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 Spouse [...] by BALJIT WILSON on 05/16/2024 08:50 AM [facility] [id number] Neurological surgery Consult note Date of Service [...] male who suffered a mechanical fall at [facility], landing on his right side. Subsequently presented [...] Status: Employed. 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 Spouse [...] by BALJIT WILSON on 05/16/2024 08:50 AM [facility] [id number] [facility] Progress note Date of Service [...] small right-sided pneumothorax, right 8-12th fractures, and G8fglcovcmrd processes fractures of the right. Overall the [...] by FLAQUITA BORJAS on 05/16/2024 07:43 AM [facility] [id number] Note ORIGINAL EXAMINATION: ONE XRAY VIEW OF [...] By: Luis Morales MD Electronically signed By Lius Morales MD Dictated Date: 05/16/2024 6:32:36 AM Prelim Date: 05/16/2024 6:34:24 AM Sign Date: 05/16/2024 6:34:24 AM Ordering Provider: [facility]09-29-2024 History and physical note Date of [...] Status: Employed. 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 Spouse [...] JANET SOSA MD on 05/15/2024 07:00 PM [facility] [id number] NoteSINUS RHYTHM Electronic Signature: NATHANIEL CARUSO DO 05/15/2024 15:41:07[facility] 09-29-2024 Note ORIGINAL EXAMINATION: ONE XRAY [...] Date: 05/15/2024 3:44:23 PM Ordering Provider: NATHANIEL [facility]09-29-2024 Evaluation + Plan noteExtracted from: Title:History and [...] Scheduled Tests Radiology* IR Facet Injection 05/16/24 [facility] 09-29-2024 Note ADDENDUM ADDENDUM: Findings discussed [...] Date: 05/15/2024 1:23:26 PM Ordering Provider[facility] Note ADDENDUM ADDENDUM: Findings discussed with [...] Date: 05/15/2024 1:23:26 PM Ordering Provider: ALEXANDRA [facility]08-13-2024 Hospital Discharge instructions Patient Education 03/29/2024 21:30:05 [...] you: 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 Duties at work [...] Sleep problems Seizures These changes may be termite exterminator helper (permanent). Heart and blood vessels Alcohol can [...] Alcohol and Substance Abuse Information Center (NASAIC). 394.636.9542, www.addictioncareoptions.com National Nisqually on Alcoholism and Drug Dependence (NCADD). 457-XAX-YLSA (981-611-8196), www.ncadd.org Call 911 Call 911 if any [...] or black or tarry stools Severe shakiness 6181-9733 [employer]. [address] [place] [address], [place] [address]. All rights reserved. This information is not intended as a substitute for professional medical care. Always follow yourhealthcare professional's instructions. 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 Duties at work [...] Sleep problems Seizures These changes may be halfway (permanent). Heart and blood vessels Alcohol can [...] Alcohol and Substance Abuse Information Center (NASAIC). 796.199.4554, www.addictioncareoptions.com National Nisqually on Alcoholism and Drug Dependence (NCADD). 806-KHS-RJLQ (550-022-4647), www.ncadd.org Call 911 Call 911 if any [...] or black or tarry stools Severe shakiness 6501-0765 [employer]. [address] [place] [address], [place] [address]. All rights reserved. This information is not intended as a substitute for professional medical care. Always follow yourhealthcare professional's instructions. Additional Information VACCINATE! IT SAVES LIVES! Members of the community who have not yet received the COVID-19 vaccine and would like to receive it can visit one of [facility] vaccine clinics. There are many vaccine clinic locations within the [facility]. For locations and available times, please visit www.gettheshot.coronavirus.[place].gov/. It is important to note that some COVID mobile vaccine clinics are held outdoors and may be canceled in rainy or stormy conditions. To learn more about pediatric vaccinations (ages 5-11), we invite you to visit the [facility] webpage. https://www.[facility].org/pages/5931-Kjdqp-Crwfotebsgj-Agbbnvlaor-Xbmox-Mzn stions.htmlTo learn more about the COVID-19 vaccine, we invite you to visit the CDC website for a list of frequently asked questions. https://www.cdc.gov/coronavirus/2019-ncov/vaccines/faq.html [facility] Patient Portal Access Instructions: Stay connected with your healthcare team and access your personal medical information anytime with the [facility] Patient Portal. If you would like a full copy of your medical records please contact the [facility] Medical Records Department Thursday through Thursday between 8a.m. and 4:30p.m. Please follow the directions below to access the portal: 1.Access the email account you provided upon registration to the hospital.2.Look for an invitation email from [facility].3.Open the email and access the invitation link: Accept Invitation to [facility]4.Fill in the required allen to create your account. Sign into [email or web address].iFit with your username and password that you [...] you will allow to register on the [facility] Patient Portal for access to your information. You can also access the [facility] Patient Portal on the [employer] louisa. Simply click on Health Records under Sonicbids and then click on the [facility] logo. [...] Call your local pharmacy or go to http://[employer]/3C6Qu4q to find one close to you.3.Make use of household items: Use cat litter or old coffee grounds to dispose medications if other options arenot available. Mix your drugs with these household products, seal them in an airtight container andthrow it into the garbage. Call [facility]: [phone] to be sure your drugs can be [...] am aware that I should contactmy doctor. Patient/City Clerk Signature: Date/Time: Relationship to Patient: Witness Name/Signature: Date/Time: [facility] [id number] Emergency department Discharge summary Discharge Instructions Thank [...] 2-4 days Where:[address] [facility] [place] [address]- Allergies NKA Medications Please ask your primary doctor or pharmacist before taking any other medication not listed, including over the counter drugs, herbal medications, vitamins and or supplements as they may interact [facility]. What How Much When [...] you: 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 Duties at work [...] Sleep problems Seizures These changes may be termite exterminator helper (permanent). Heart and blood vessels Alcohol can [...] Alcohol and Substance Abuse Information Center (NASAIC). 341.155.9730, www.addictioncareoptions.com National [place] on Alcoholism and Drug Dependence (NCADD). 849-RWL-PCLT (170-842-0498), www.ncadd.org Call 911 Call 911 if any [...] or black or tarry stools Severe shakiness [phone] [employer]. [address] [place] [address]. All rights reserved. This information is not intended as a substitute for professional medical care. Always follow yourhealthcare professional's instructions. Additional Information VACCINATE! IT SAVES LIVES! Members of the community who have not yet received the COVID-19 vaccine and would like to receive it can visit one of [facility] vaccine clinics. There are many vaccine clinic locations within the [facility]. For locations and available times, please visit www.gettheshot.coronavirus.[place].gov/. It is important to note that some COVID mobile vaccine clinics are held outdoors and may be canceled in rainy or stormy conditions. To learn more about pediatric vaccinations (ages 5-11), we invite you to visit the [facility] webpage. https://www.[facility].org/pages/4797-Bltai-Bimakwnphwh-Kmhvltxmng-Xxaqy-Ade stions.htmlTo learn more about the COVID-19 vaccine, we invite you to visit the CDC website for a list of frequently asked questions. https://www.cdc.gov/coronavirus/2019-ncov/vaccines/faq.html [facility] Patient Portal Access Instructions: Stay connected with your healthcare team and access your personal medical information anytime with the [facility] Patient Portal. If you would like a full copy of your medical records please contact the [facility] Medical Records Department Thursday through Thursday between 8a.m. and 4:30p.m. Please follow the directions below to access the portal: 1.Access the email account you provided upon registration to the [facility].2.Look for an invitation email from [facility].3.Open the email and access the invitation link: Accept Invitation to [facility]4.Fill in the required allen to create your account. Sign into [email or web address].iFit with your username and password that you [...] you will allow to register on the [facility] Patient Portal for access to your information. You can also access the [facility] Patient Portal on the [employer] louisa. Simply click on Health Records under Sonicbids and then click on the [employer] logo. HOW TO SAFELY DISPOSE OF PRESCRIPTION [...] Call your local pharmacy or go to http://[employer]/7Z5Gd6s to find one close to you.3.Make use of household items: Use cat litter or old coffee grounds to dispose medications if other options arenot available. Mix your drugs with these household products, seal them in an airtight container andthrow it into the garbage. Call [facility]: [phone] to be sure your drugs can be [...] am aware that I should contactmy doctor. Patient/City Clerk Signature: Date/Time: Relationship to Patient: Witness Name/Signature: Date/Time: [facility] [id number] DEPRESSION, LATERAL LEADS PROLONGED QT INTERVAL Electronic Signature: MECCA SALEEM MD 03/29/2024 20:14:[address] [place] [address] 06-29-2024 Note ORIGINAL EXAMINATION: TWO XRAY VIEWS [...] Sign Date: 02/14/2024 1:50:18 AM Ordering Provider: [facility]05-10-2024 Discharge summary Author Papo Rodriguez [facility] December 25, 2023 10:23am Note Date/Time December 25, 2023 10:23 am [facility] Medical Records Department [address] [place] [address] Discharge Summary 12/25/23 1021 MR#: [id number] Acct: [id number] Name: JENNIFER YORK Rep #:[id number] : 1960 63 From: Papo Rodriguez DO PCP: Dr. Jennifer Villaseñor MD Status:ADM IN Location: [place] [address] Providers Date of Admission: 12/19/23 Primary Care [...] % (Auto) 57.5, Lymph % (Auto) 25.0, [place] % (Auto) 14.0 H, Eos % (Auto) [...] in before D/C Order can be placed): Jail Facility Charges/Coding Visit Charges Inpatient E&M: 97816 Disch Hosp >30min 12/25/23 1023 <Electronically signed by Papo Rodriguez DO> Cosigner Signature (if applicable): CC: Dr. Papo Rodriguez DO; Dr. Jennifer Villaseñor MD~ Signed [facility] Work Phone: 1(977) 660-354205-10-2024 Discharge summary Author Papo [facility] December 25, 2023 10:21am Note Date/Time December 25, 2023 10:18 am [facility] Medical Records Department [address] [place] [address] Transfer to [facility] MR#: [id number] Acct: [id number] Name: JENNIFER YORK Rep #:[id number] : 1960 63 From: Papo Rodriguez DO PCP: Dr. Jennifer Villaseñor MD Status:ADM IN Certification of patient admission REQUIRED AT TIME OF ADMISSION. I CERTIFY THAT POST-HOSPITAL F SERVICES ARE REQUIRED TO BE GIVEN ON AN IN-PATIENT BASIS BECAUSE OF THE ABOVE NAMED PATIENT'S NEED FOR CUSTODIAL CARE ON A CONTINUING BASIS FOR THE CONDITION(S) FOR WHICH HE/SHE WAS RECEIVING IN-PATIENT HOSPITAL SERVICES PRIOR TO HIS/HER TRANSFER TO THE [facility]. 12/25/23 1021<Electronically signed by Papo Rodriguez DO> [...] in before D/C Order can be placed): Jail Facility (1) Alcohol withdrawal Qualifiers: Complication of substance-induced condition: with delirium Qualified Code(s):F10.931 - Alcohol use, unspecified with withdrawal delirium 12/25/23 1021 <Electronically signed by Papo Rodriguez DO> Cosigner Signature (if applicable): CC: Dr. Taylor Kaur MD; Dr. Janet Erazo MD; Dr. Jennifer Villaseñor MD ~ [facility] Work Phone: 1(299) 358-601605-09-2024 Progress note Author Papo Rodriguez [facility] December 24, 2023 9:19am Note Date/Time December 24, 2023 9:20am [facility] Medical Records Department [address] [place] [address] Progress Note - Hospitalist 12/24/23911 MR#: [id number] Acct: [id number] Name: JENNIFER YORK Rep #:[id number] : 1960 63 From: Papo Rodriguez DO PCP: Dr. Jennifer Villaseñor MD Status:ADM IN Location: [facility] OW223-7 Reason for Visit Reason for Visit: Diagnoses [...] Bilateral SCDs Charges/Coding Visit Charges Inpatient E&M: 06181 Subs Hosp L2 12/24/23918 <Electronically signed by Papo Rodriguez DO> Cosigner Signature (if applicable): CC: ~ Signed [facility] Work Phone: 1(772) 475-558905-08-2024 Progress note Author Papo Rodriguez [facility] December 23, 2023 2:53pm Note Date/Time December 23, 2023 7:50am [facility] Medical Records Department [address] [place] [address] Progress Note - Hospitalist 12/23/23 0747 MR#: [id number] Acct: [id number] Name: MATTEOJENNIFER PHELPS Rep #:[id number] : 1960 63 From: Papo Rodriguez DO PCP: Dr. Jennifer Villaseñor MD Status:ADM IN Location: [place] CV596-1 Reason for Visit Reason for Visit: Diagnoses [...] Bilateral SCDs Charges/Coding Visit Charges Inpatient E&M: 43248 Subs Hosp L2 12/23/23 6071 <Electronically signed by Papo Rodriguez DO> Cosigner Signature (if applicable): CC: ~ Signed [facility] Work Phone: 1(521) 219-544805-07-2024 Progress note Author Papo Rodriguez [facility] December 22, 2023 3:14pm Note Date/Time December 22, 2023 7:59am [facility] Medical Records Department [address] [place] [address] Progress Note - Hospitalist 12/22/23 0752 MR#: [id number] Acct: [id number] Name: JENNIFER YORK Rep #:[id number] : 1960 63 From: Papo Rodriguez DO PCP: Dr. Jennifer Villaseñor MD Status:ADM IN [facility] Reason for Visit Reason for Visit: Diagnoses [...] 1650 650 / 650 Balance -1300 / -0660 336.9723 / 640.8333 Lab / Micro Data 12/22/23 [...] % (Auto) 60.4, Lymph % (Auto) 25.2, [place] % (Auto) 12.0 H, Eos % (Auto) [...] Bilateral SCDs Charges/Coding Visit Charges Inpatient E&M: 10257 Subs Hosp L2 12/22/23 0834 <Electronically signed by Papo Rodriguez DO> Cosigner Signature (if applicable): CC: ~ Signed [facility] Work Phone: 1(159) 219-585305-06-2024 Progress note Author Papo Rodriguez [facility] December 21, 2023 12:43pm Note Date/Time December 21, 2023 7:49am [facility] Medical Records Department [address] [place] [address] Progress Note - Hospitalist 12/21/23 0744 MR#: [id number] Acct: [id number] Name: MATTEOJENNIFER PHELPS Rep #:[id number] : 1960 63 From: Papo Rodriguez DO PCP: Dr. Jennifer Villaseñor MD Status:ADM IN Location: [place] OL497-2 Reason for Visit Reason for Visit: Diagnoses [...] % (Auto) 62.9, Lymph % (Auto) 23.2, [place] % (Auto) 10.7 H, Eos % (Auto) [...] Bilateral SCDs Charges/Coding Visit Charges Inpatient E&M: 04112 Subs Hosp L2 12/21/23 2764 <Electronically signed by Papo Rodriguez DO> Cosigner Signature (if applicable): CC: ~ Signed [facility] Work Phone: 1(305) 478-419405-05-2024 Progress note Author Janet Erazo [facility] December 20, 2023 9:13am Note Date/Time December 20, 2023 7:36am [facility] Medical Records Department [address] [place] [address] Progress Note - Hospitalist 12/20/23 0736 MR#: [id number] Acct: [id number] Name: JENNIFER YORK Rep #:[id number] : 1960 63 From: Janet Erazo MD PCP: Dr. Jennifer Villaseñor MD Status:ADM IN Location: [place] ZO436-9 Reason for Visit Reason for Visit: Diagnoses [...] Neut % (Auto) 67.4, Lymph % (Auto)19.4, [place] % (Auto) 11.1 H, Eos % (Auto) [...] placed on thiamine andfolic acidConsultation placed to [facility] counseling services ? 12/20/2023 patient has [...] 52 Minutes Charges/Coding Visit Charges Inpatient E&M: 75615 Subs Hosp L3 12/20/23 0913 <Electronically signed by Janet Erazo MD> Cosigner Signature (if applicable): CC: ~ Signed [facility] Work Phone: 1(152) 229-880605-04-2024 Progress note Author Janet Erazo [facility] December 19, 2023 9:51am Note Date/Time December 19, 2023 7:23am [facility] Medical Records Department [address] [place] [address] Progress Note - Hospitalist 12/19/23 0718 MR#: [id number] Acct: [id number] Name: JENNIFER YORK Rep #:[id number] : 1960 63 From: Janet Erazo MD PCP: Dr. Jennifer Villaseñor MD Status:ADM IN Location: [place] VE079-6 Reason for Visit Reason for Visit: Diagnoses [...] 76.9 H, Lymph % (Auto) 9.5 L, [place] % (Auto) 12.5 H, Eos % (Auto) [...] Clarity Clear, Urine pH 6.0, Ur Specific Dana 1.020, Urine Protein 500 H, Urine Glucose [...] 72.1 H, Lymph % (Auto) 17.9 L, [place] % (Auto) 8.0, Eos % (Auto) 0.0, [...] placed on thiamine andfolic acidConsultation placed to [facility] counseling services 3. Hypokalemia ? Corrected [...] 50 Minutes Charges/Coding Visit Charges Inpatient E&M: 50872 Subs Hosp L3 12/19/23 0901 <Electronically signed by Janet Erazo MD> Cosigner Signature (if applicable): CC: ~ Signed [facility] Work Phone: 1(393) 966-501205-04-2024 History and physical note Author Taylor White [facility] December 19, 2023 1:12am Note Date/Time December 19, 2023 12:47a m [facility] Medical Records Department [address] [place] [address] H&P Exam - Hospitalist 12/19/23 0043 MR#: [id number] Acct: [id number] Name: JENNIFER YORK Rep #:[id number] : 1960 63 From: Taylor Kaur MD PCP: Dr. Jennifer Villaseñor MD Status:REG ER Location: ED HPI - General General Date of Admission: 12/19/23 Date of Service: 12/19/23 Chief Complaint: Confusion. HPI Narrative The patient is a 63 y/o M w/ PMHx: Chronic thrombocytopenia, HTN, Tobacco use, EtOH abuse, Anxiety and Depression, Chronic neck pain with DDD who presents to the [facility] ED on 12/18/23 noted to have [...] 76.9 H, Lymph % (Auto) 9.5 L, [place] % (Auto) 12.5 H, Eos % (Auto) [...] Clarity Clear, Urine pH 6.0, Ur Specific Dana 1.020, Urine Protein 500 H, Urine Glucose [...] pain with DDD who presents to the [facility] ED on 12/18/23 noted to have [...] anemia, unclear exact chronicity: Admission hemoglobin 10.3, WLS658.6, baseline hemoglobin unknown is no recent comparisons [...] Full Code. Charges/Coding Visit Charges Inpatient E&M: 53474 Init Hosp L3 12/19/23 0112 <Electronically signed by Taylor Kaur MD> Cosigner Signature (if applicable): CC: Dr. Taylor Kaur MD; Dr. Jennifer Villaseñor MD~ Signed [facility] Work Phone: 1(970) 649-658105-04-2024 Discharge summary Author Brendan Amadeo [facility] December 19, 2023 1:00am Note Date/Time December 18, 2023 10:18p m [facility] Medical Records Department [address] [place] [address] Emergency Department Summary 12/18/23 MR#: [id number] Acct: [id number] Name: JENNIFER YORK Rep #:[id number] : 1960 63 From: Brendan Ham PCP: [...] others: EMS Consults: internal medicine (Dr. Kaur) [facility] Narrative: Patient was initially tachycardic, febrile, [...] to floor This note was generated with SimpleOrder dictation software. It may contain incorrect words, [...] 76.9 H Lymph % (Auto) 9.5 L [place] % (Auto) 12.5 H Eos % (Auto) [...] Clarity Clear Urine pH 6.0 Ur Specific Dana 1.020 Urine Protein 500 H Urine Glucose [...] your Primary Care Provider. Call [facility] ([phone]) or report to the closest Emergency Room. Call 911 if necessary. 12/19/23 0100 <Electronically signed by Brendan Childs DO> Cosigner Signature (if applicable): CC: Dr. Jennifer Villaseñor MD ~ Signed [facility] Work Phone: 1(649) 654-101405-04-2024 Discharge summary Author Brendan Childs [facility] December 19, 2023 1:00am Note Date/Time December 18, 2023 10:18p m [facility] Medical Records Department [address] [place] [address] Emergency Department Summary 12/18/23 MR#: [id number] Acct: [id number] Name: JENNIFER YORK Rep #:[id number] : 1960 63 From: Brendan Ham PCP: [...] others: EMS Consults: internal medicine (Dr. Kaur) [facility] Narrative: Patient was initially tachycardic, febrile, [...] to floor This note was generated with SimpleOrder dictation software. It may contain incorrect words, [...] 76.9 H Lymph % (Auto) 9.5 L [place] % (Auto) 12.5 H Eos % (Auto) [...] Clarity Clear Urine pH 6.0 Ur Specific Dana 1.020 Urine Protein 500 H Urine Glucose [...] your Primary Care Provider. Call [facility] ([phone]) or report to the closest Emergency Room. Call 911 if necessary. 12/19/23 0100 <Electronically signed by Brendan Childs DO> Cosigner Signature (if applicable): CC: Dr. Jennifer Villaseñor MD ~ Signed [facility] Work Phone: 1(651) 516-755603-18-2024 Hospital Discharge instructions Patient Education 11/01/2023 22:25:04 [...] www.aa.org. Raeann gives support to families. Call [phone], or go to www.al-anon.org. National [place] on Alcoholism and Drug Dependence (NCADD) has helpful resources. NCADD can be reached at 557-983-6439 and www.ncadd.org. Call 911 Call 911 if [...] upper belly that gets worse Repeated vomiting 7747-9555 [employer]. [address] [place], [place] [address]. All rights reserved. This information is not [...] in vomit, stools (black or red color) 3778-0059 [employer]. [address] [place] [address]. All rights reserved. This information is not intended as a substitute for professional medical care. Always follow yourhealthcare professional's instructions. [facility] 03-17-2024 Note Discharge Instructions Thank you for allowing [facility] to assist you with your healthcare needs. [...] www.aa.org. Raeann gives support to families. Call 110-971-0953, or go to www.al-anon.org. National [place] on Alcoholism and Drug Dependence (NCADD) has helpful resources. NCADD can be reached at 607-339-7952 and www.ncadd.org. Call 911 Call 911 if [...] upper belly that gets worse Repeated vomiting 4024-1819 [employer]. [address] [place] [address]. All rights reserved. This information is not [...] in vomit, stools (black or red color) 7008-6732 [employer]. [address] [place] [address]. All rights reserved. This information is not intended as a substitute for professional medical care. Always follow yourhealthcare professional's instructions. Additional Information VACCINATE! IT SAVES LIVES! Members of the community who have not yet received the COVID-19 vaccine and would like to receive it can visit one of [facility] vaccine clinics. There are many vaccine clinic locations within the [facility]. For locations and available times, please visit www.gettheshot.coronavirus.[place].gov/. It is important to note that some COVID mobile vaccine clinics are held outdoors and may be canceled in rainy or stormy conditions. To learn more about pediatric vaccinations (ages 5-11), we invite you to visit the [facility] webpage. https://www.[facility].org/pages/1580-Tdxxn-Tzdgrhilrpo-Acmwxblcmc-Qpwck-Erw stions.htmlTo learn more about the COVID-19 vaccine, we invite you to visit the CDC website for a list of frequently asked questions. https://www.cdc.gov/coronavirus/2019-ncov/vaccines/faq.html [facility] Patient Portal Access Instructions: Stay connected with your healthcare team and access your personal medical information anytime with the [facility] Patient Portal. If you would like a full copy of your medical records please contact the [facility] Medical Records Department Thursday through Thursday between 8a.m. and 4:30p.m. Please follow the directions below to access the portal: 1.Access the email account you provided upon registration to the [facility].2.Look for an invitation email from [facility].3.Open the email and access the invitation link: Accept Invitation to [facility]4.Fill in the required allen to create your [...] you will allow to register on the [facility] Patient Portal for access to your information. You can also access the [facility] Patient Portal on the [employer] louisa. Simply click on Health Records under Sonicbids and then click on the [facility] logo. [...] Call your local pharmacy or go to http://Carter[employer]/8E3Ja2r to find one close to you.3.Make use of household items: Use cat litter or old coffee grounds to dispose medications if other options arenot available. Mix your drugs with these household products, seal them in an airtight container andthrow it into the garbage. Call [facility]: [phone] to be sure your drugs can be [...] am aware that I should contactmy doctor. Patient/City Clerk Signature: Date/Time: Relationship to Patient: Witness Name/Signature: Date/Time: [facility]03-17-2024 Note ORIGINAL EXAMINATION: CT OF THE [...] Sign Date: 11/01/2023 8:34:45 PM Ordering Provider: [facility]03-17-2024 Note ORIGINAL EXAMINATION: CT OF THE HEAD [...] Date: 11/01/2023 8:44:13 PM Ordering Provider: [facility]03-17-2024 Note ORIGINAL EXAMINATION: ONE XRAY VIEW [...] Date: 11/01/2023 8:24:57 PM [facility] Note ORIGINAL EXAMINATION: ONE XRAY VIEW [...] Date: 11/01/2023 8:24:05 PM Ordering Provider: [facility]03-17-2024 NoteSinus tachycardia Multiform ventricular premature complexes Borderline intraventricular conduction delay Abnormal R-wave progression, early transition Minimal ST depression, anterolateral leads Prolonged QT interval Electronic Signature: NATHANIEL CARUSO DO 11/01/2023 19:27:[address] [place] [address] 03-17-2024 Evaluation + Plan note Diagnostic Tests Pending * Urine Drug Screen (AO/AM Only) 11/01/23 Future Scheduled Tests Radiology* XR Spine Lumbar W/Obliques 4 Views 01/13/23 [facility] 01-31-2024 Note ORIGINAL EXAMINATION: CT OF [...] Date: 09/16/2023 2:33:00 PM Ordering Provider: [facility]ENNIFER [facility]12-02-2023 Hospital Discharge instructions Patient Education 07/18/2023 [...] shoulder or upper arm Fever or chills 4024-6517 [employer]. [address] [place] [address]. All rights reserved. This information is not [...] shoulder or upper arm Fever or chills 0583-6420 [employer]. [address] [place] [address], [place] [address]. All rights reserved. This information is not intended as a substitute for professional medical care. Always follow yourhealthcare professional's instructions. Follow Up Care 07/18/2023 09:44:39 With:JENNIFER VILLASÑEOR MD Address: [address] [facility] [address] [facility] [place], [place] [address]- When:2-4 days [facility] 12-02-2023 Note Discharge Instructions Thank you [...] 2-4 days Where: [address] [place] [address]- Allergies NKA Medications Please ask [...] shoulder or upper arm Fever or chills [phone] [employer]. [address] [place] [address], [place] [address]. All rights reserved. This information is not [...] shoulder or upper arm Fever or chills [phone] [employer]. [address] [place] [address], [place] [address]. All rights reserved. This information is not intended as a substitute for professional medical care. Always follow yourhealthcare professional's instructions. Additional Information VACCINATE! IT SAVES LIVES! Members of the community who have not yet received the COVID-19 vaccine and would like to receive it can visit one of [facility] vaccine clinics. There are many vaccine clinic locations within the [facility]. For locations and available times, please visit www.[email or web address].[place].gov/. It is important to note that some COVID mobile vaccine clinics are held outdoors and may be canceled in rainy or stormy conditions. To learn more about pediatric vaccinations (ages 5-11), we invite you to visit the [facility] webpage. https://www.[place].org/pages/0964-Hqblv-Jvwasfefskc-Iqlwcsbxmw-Fsekp-Osk stions.htmlTo learn more about the COVID-19 vaccine, we invite you to visit the CDC website for a list of frequently asked questions. https://www.cdc.gov/coronavirus/2019-ncov/vaccines/faq.html [facility] Patient Portal Access Instructions: Stay connected with your healthcare team and access your personal medical information anytime with the [facility] Patient Portal. If you would like a full copy of your medical records please contact the [facility] Medical Records Department Thursday through Thursday between 8a.m. and 4:30p.m. Please follow the directions below to access the portal: 1.Access the email account you provided upon registration to the hospital.2.Look for an invitation email from [facility].3.Open the email and access the invitation link: Accept Invitation to [facility]4.Fill in the required allen to create your account. Sign into [email or web address] with your username and password that you [...] you will allow to register on the [facility] Patient Portal for access to your information. You can also access the [facility] Patient Portal on the [employer]. Simply click on Health Records under HealthData [...] Call your local pharmacy or go to http://[email or web address]/[email or web address] to find one close to you.3.Make use of household items: Use cat litter or old coffee grounds to dispose medications if other options arenot available. Mix your drugs with these household products, seal them in an airtight container andthrow it into the garbage. Call [facility]: [phone] to be sure your drugs can be [...] am aware that I should contactmy doctor. Patient/City Clerk Signature: Date/Time: Relationship to Patient: Witness Name/Signature: Date/Time: [facility]12-02-2023 Note ORIGINAL EXAMINATION: 3 XRAY VIEWS [...] Date: 07/18/2023 11:13:46 AM [facility] Discharge instructions Patient Education 07/10/2023 07:09:34 [...] nausea before eating solid foods. Only take apak-vsf-auszrdb or prescription medicines for pain, discomfort, or [...] Document Reviewed: 05/24/2014 ExitCare Patient Information 2015 [employer]. This information is not intended to replace [...] This will gradually bring back your r wafq-bx-ozgibv and shoulder strength. It will also lower [...] for a longer time may limit your oftzd-uy-rkrhwn at the shoulder joint. If you have [...] blue, numb or tingly Fever or chills [phone] [employer]. [address] [place] [address], [place] [address]. All rights reserved. This information is not intended as a substitute for professional medical care. Always follow yourhealthcare professional's instructions. Follow Up Care 07/10/2023 05:15:41 With:JENNIFER BRASHER MD Address: [address] [place] [address] & [place] [address]- [phone] When:2-4 days [facility] 11-24-2023 Note Discharge Instructions Thank you for allowing [facility] to assist you with your healthcare needs. [...] BRASHER MD When Within 2-4 days Where: [address] [place] [address] & [place] [address]- [phone] Allergies NKA Medications Please ask your primary [...] nausea before eating solid foods. Only take jsfn-ipd-ucgefpn or prescription medicines for pain, discomfort, or [...] worse. Document Released: 05/24/2014 Document Reviewed: 05/24/2014 [facility] Patient Information 2015 [facility]. This information is not [...] This will gradually bring back your r lnxj-tj-qqpvyz and shoulder strength. It will also lower [...] for a longer time may limit your mnmil-mo-yektex at the shoulder joint. If you have [...] blue, numb or tingly Fever or chills [phone] [employer]. [address] [place] [address]. All rights reserved. This information is not intended as a substitute for professional medical care. Always follow yourhealthcare professional's instructions. Additional Information VACCINATE! IT SAVES LIVES! Members of the community who have not yet received the COVID-19 vaccine and would like to receive it can visit one of [facility] vaccine clinics. There are many vaccine clinic locations within the [facility]. For locations and available times, please visit www.gettheshot.coronavirus.[place].gov/. It is important to note that some COVID mobile vaccine clinics are held outdoors and may be canceled in rainy or stormy conditions. To learn more about pediatric vaccinations (ages 5-11), we invite you to visit the [facility] webpage. https://www.[facility].org/pages/7443-Nuotb-Gyayghklwzt-Augzgotyyr-Sleav-Wae stions.htmlTo learn more about the COVID-19 vaccine, we invite you to visit the CDC website for a list of frequently asked questions. https://www.cdc.gov/coronavirus/2019-ncov/vaccines/faq.html [facility] Patient Portal Access Instructions: Stay connected with your healthcare team and access your personal medical information anytime with the [facility] Patient Portal. If you would like a full copy of your medical records please contact the [facility] Medical Records Department Thursday through Thursday between 8a.m. and 4:30p.m. Please follow the directions below to access the portal: 1.Access the email account you provided upon registration to the [facility].2.Look for an invitation email from [facility].3.Open the email and access the invitation link: Accept Invitation to [facility]4.Fill in the required allen to create your account. Sign into [email or web address] with your username and password that you [...] you will allow to register on the [facility] Patient Portal for access to your information. You can also access the [facility] Patient Portal on the [employer]. Simply click on Health Records under [employer] and then click on the [employer] logo. HOW TO SAFELY DISPOSE OF PRESCRIPTION [...] Call your local pharmacy or go to http://[employer]/2P7Cx2b to find one close to you.3.Make use of household items: Use cat litter or old coffee grounds to dispose medications if other options arenot available. Mix your drugs with these household products, seal them in an airtight container andthrow it into the garbage. Call [facility]: [phone] to be sure your drugs can be [...] am aware that I should contactmy doctor. Patient/City Clerk Signature: Date/Time: Relationship to Patient: Witness Name/Signature: Date/Time: [facility]11-24-2023 Note ORIGINAL EXAMINATION: TWO XRAY VIEWS OF THE RIGHT SHOULDER 07/10/2023 7:15 am COMPARISON: Right shoulder x-ray 07/10/2023 HISTORY: ORDERING SYSTEM PROVIDED HISTORY: Reason for Exam: reduction FINDINGS/IMPRESSION: There has been successful reduction of the dislocated right glenohumeral joint. Alignment is now normal. No fracture of humeral head or glenoid is detected. Interpreted by: Lius Morales MD Preliminary Report By: Luis Morales MD Electronically signed By Luis Morales MD Dictated Date: 07/10/2023 7:20:51 AM Prelim Date: 07/10/2023 7:21:59 AM Sign Date: 07/10/2023 7:21:59 AM Ordering Provider: [facility]11-24-2023 Note ORIGINAL EXAMINATION: TWO XRAY VIEWS [...] Sign Date: 07/10/2023 7:19:13 AM Ordering Provider: [facility]11-24-2023 Note ORIGINAL EXAMINATION: 3 XRAY VIEWS [...] Sign Date: 07/10/2023 6:05:42 AM Ordering Provider: [facility]05-30-2023 Evaluation + Plan note Future Scheduled Tests Radiology* XR Spine Lumbar W/Obliques 4 Views 01/13/23 [facility] Evaluation + Plan note Future Appointments Appointment Date:09/09/2021 09:50:00 AM Scheduled Provider:СВЕТЛАНА DURAN DO Location[facility] Appointment Type:PC OV Appointment Date:09/23/2021 10:00:00 AM Scheduled Provider:SUMANTH TRACEY [facility] Appointment Type:CV OV [facility] Evaluation + Plan note Future Appointments Appointment Date:03/11/2022 10:30:00 AM Scheduled Provider:JENNIFER VILLASEÑOR MD Location:[facility] Appointment Type:PC Wellness Annual Future Scheduled Tests Laboratory* Prostate Specific Antigen 09/10/21 Radiology* XR Hand Minimum 3 Views Left 01/08/22 [facility] Evaluation + Plan note Future Appointments Appointment Date:09/16/2023 01:00:00 PM Scheduled Provider: Location:[facility] Appointment Type:CT Head or Brain w/ Contrast Appointment Date:09/16/2023 02:00:00 PM Scheduled Provider: Location:[facility] Appointment Type:CT Shoulder w/o Contrast Right Appointment Date:09/22/2023 04:00:00 PM Scheduled Provider:JENNIFER VILLASEÑOR MD Location:[facility] Appointment Type:PC OV Future Scheduled Tests Radiology* CT Head or Brain w/ Contrast 09/16/23 * CT Shoulder w/o Contrast Right 09/16/23 * XR Spine Lumbar W/Obliques 4 Views 01/13/23 [facility] Evaluation + Plan note Future Appointments Appointment Date:09/22/2023 04:00:00 PM Scheduled Provider:JENNIFER VILLASEÑOR MD Location:[facility] Appointment Type:PC OV Future Scheduled Tests Radiology* XR Spine Lumbar W/Obliques 4 Views 01/13/23 [facility] Evaluation + Plan note Future Appointments Appointment Date:06/17/2024 08:30:00 AM Scheduled Provider:JENNIFER VILLASEÑOR MD Location:[facility] Appointment Type:PC OV Follow Up Appointment Date:07/06/2024 10:00:00 AM Scheduled Provider: Location:[facility] Appointment Type:IR Facet Injection Future Scheduled Tests Radiology* IR Facet Injection 07/06/24 [facility] evaluation note* Diagnosis Onset Date Resolution Status Alcohol withdrawal acute [facility] Work Phone: Evaluation noteNo assessment information available [facility] Work Phone: History and physical note Author Taylor Kaur [facility] December 19, 2023 1:12am Note Date/Time December 19, 2023 12:47a m [facility] Medical Records Department [address] [place] [address] H&P Exam - Hospitalist 12/19/23 0043 MR#: [id number] Acct: [id number] Name: JENNIFER YORK Rep #:[id number] : 1960 63 From: Taylor Kaur MD PCP: Dr. Jennifer Villaseñor MD Status:REG ER Location: ED HPI - General General Date of Admission: 12/19/23 Date of Service: 12/19/23 Chief Complaint: Confusion. HPI Narrative The patient is a 63 y/o M w/ PMHx: Chronic thrombocytopenia, HTN, Tobacco use, EtOH abuse, Anxiety and Depression, Chronic neck pain with DDD who presents to the [facility] ED on 12/18/23 noted to have [...] 76.9 H, Lymph % (Auto) 9.5 L, [place] % (Auto) 12.5 H, Eos % (Auto) [...] Clarity Clear, Urine pH 6.0, Ur Specific Dana 1.020, Urine Protein 500 H, Urine Glucose [...] pain with DDD who presents to the [facility] ED on 12/18/23 noted to have [...] anemia, unclear exact chronicity: Admission hemoglobin 10.3, IHZ219.6, baseline hemoglobin unknown is no recent comparisons [...] Full Code. Charges/Coding Visit Charges Inpatient E&M: 11942 Init Hosp L3 12/19/23 0112 <Electronically signed by Taylor Kaur MD> Cosigner Signature (if applicable): CC: Dr. Taylor Kaur MD; Dr. Jennifer Villaseñor MD~ Signed [facility] Work Phone: Hospital course Narrative No data available for this section [facility] Hospital Discharge instructions No data available for this section [facility] Progress note No data available for this section [facility] Reason for referral (narrative)No reason for referral information availableWCoshoct[facility] Work Phone: Summary Purpose Family History No Family History Records Found Relationship Condition Age at Onset Recorded Date/T leonora Unknown Family History?No pertinent history Unkno wn November 21, 2019 10:20pm Advance Directives No Advanced Directives Records Found Advance Directive Response Recorded Date/ Time Living Will No December 19, 2023 1: 55am Power of Shipping Room Supervisor No December 19, 2023 1:55am Advance Directive Response Recorded Date/ Time Do you have a [facility] Power of Shipping Room Supervisor? No February 03, 2025 11:57am Chief Complaint [...] section and content) DATE CREATED AUTHOR 06/10/2019 [facility] Saira Heard DATE CREATED AUTHOR AUTHOR'S ORGANIZ ATION 04/13/2024 [facility] ([place] DATE CREATED AUTHOR AUTHOR'S ORGANIZ ATION 07/17/2024 [facility] DATE CREATED AUTHOR AUTHOR'S ORGANIZ ATION 11/10/2024 [facility] DATE CREATED AUTHOR AUTHOR'S ORGANIZ ATION 02/11/2025 [facility] Care Team (unrecognized sect ion and [...] BE BASED ON THE PRIMARY CLINICAL RECORDS. [facility]. provides no warranty or guarantee of the accuracy or completeness of information in this document.
--- OUTSIDE RECORDS SUMMARY | 2025-02-15 01:38 | XMS RPT_ITS | CCD ---
Author Organization [facility] Care Team Providers Care Delivery Room Supervisor Name Role Phone JENNIFER VILLASEÑOR MD Primary Care Physician Dr. Jennifer Villaseñor Primary Care Provider Dr. Brendan Childs Emergency Provider [phone] Dr. Taylor Kaur Attending Provider Dr. Taylor Kaur Admit Provider [phone] Taylor Kaur Other Provider [phone] Janet Erazo Attending Provider Unavailable Dr. [...] Villaseñor MD, Dr. Boo Primary Care Provider Dr. Abby Marvin DO Emergency Provider Jennifer [...] day(s), # 14 tab(s), 0 Refill(s), Pharmacy: [facility], Rib fracture, 187, cm, [...] # 20 tab(s), 0 Refill(s), Pharmacy: [facility]/pharmacy #[id number], Rib fractures, 185.4, cm, 05/16/24 [...] # 20 tab(s), 0 Refill(s), Pharmacy: [facility]/pharmacy #[id number], [facility] fracture, 185.4, cm, 10/01/23 8:30:00 EST, Height, [...] # 60 tab(s), 0 Refill(s), Pharmacy: [facility]/pharmacy #[id number], Alcohol abuse History of encephalopathy, 185.4, cm, 10/01/23 8:30:00 EST, Height, kg, 10/01/23 8:30:00 EST, Dosing Weight Start Date: 01/02/24 Status: Ordered folic acid 1 mg oral tablet (5 sources) Start: 01-02-2024 folic acid 1 mg oral tablet Dose : 1 mg = 1 tab(s), Oral, qDay, # 90 tab(s), 0 Refill(s), Pharmacy: [facility]/pharmacy #[id number], Alcohol abuse History of encephalopathy, [...] day(s), # 30 patch(es), 0 Refill(s), Pharmacy: [facility], Rib fracture Alcoholic cirrhosis, 187, cm, 05/26/24 13:07:00 EDT, Height, 84.9, kg, 05/26/24 13:07:00 EDT, Dosing Weight Start Date: 05/26/24 Stop Date: 06/25/24 Status: Ordered meloxicam 7.5 mg oral tablet (1 source) Nonsteroidal Anti-inflammatory Drug Start: 01-08-2022 End: 01-22-2022 meloxicam 7.5 mg oral tablet Dose : 7.5 mg = 1 tab(s), Oral, BID, PRN Pain, # 28 tab(s), 0 Refill(s), Pharmacy: [facility]/pharmacy #[id number], Left hand pain, 180.3, cm, 01/08/22 11:02:00 EDT, Height Start Date: 01/08/22 Stop Date: 01/22/22 Status: Ordered Milk of Magnesia (1 source) Start: 05-17-2024 take 1 dose by mouth once daily as needed for constipation Milk of Magnesia Dose = 30 mL, Oral, qDay, PRN Constipation, 0 Refill(s) Start Date: 05/17/24 Status: Ordered Ofpdyddu-Akav-M a-Hftkfdf-Exam (Therapeutic-M) 9 mg iron-400 mcg Tablet (2 sources) Start: 12-25-2023 take 9 tablets by mouth once at breakfast Qibpjszq-Mhdt-Rn -Calcium-Mins (Therapeutic-M) 9 mg iron-400 mcg Tablet Active 1 {tbl} PO WITH BREAKFAST December 25, 2023 12:00am Start: 12-25-2023 Multivit-Iron- Dc-Voddbzz-Ekgt (Therapeutic-M) 9 mg iron-400 mcg Tablet Active 1 TABLET PO WITH BREAKFAST December 25, 2023 12:00am mupirocin 0.02 mg/mg topical ointment (1 source) RNA Synthetase Inhibitor Antibacterial Start: 09-09-2021 mupirocin 2% topical ointment Apply 1 louisa, Topical, TID, # 22 gram(s), 0 Refill(s), Pharmacy: [facility]/pharmacy #[id number], Ointment, 187, cm, 09/09/21 10:00:00 [...] # 30 tab(s), 0 Refill(s), Pharmacy: [facility]/pharmacy #[id number], Alcoholism CHECO (generalized anxiety disorder), 185.4, cm, 08/26/23 16:00:00 EST, Height, kg, 08/26/23 16:00:00 EST, Dosing Weight Start Date: 08/26/23 Status: Ordered polyethylene glycol 3350 20560 mg powder for oral solution (1 source) Osmotic Laxative Start: 05-17-2024 Miralax Powde r Packet Oral, qDay, 0 Refill(s) Start Date: 05/17/24 Status: Ordered sertraline 50 mg oral tablet (1 source) Serotonin Reuptake Inhibitor Start: 08-29-2022 Zoloft 50 mg oral tablet Dose : 50 mg = 1 tab(s), Oral, qDay, # 30 tab(s), 1 Refill(s), Pharmacy: [facility]/pharmacy #[id number], Depression Alcoholism, 186, cm, 07/31/22 16:59:00 EST, Height, kg, 07/31/22 16:59:00 EST, Dosing Weight Start Date: 08/29/22 Status: Ordered thiamine 100 mg oral tablet (5 sources) Start: 01-02-2024 thiamine 100 m g oral tablet Dose : 100 mg = 1 tab(s), Oral, Daily, # 100 tab(s), 0 Refill(s), Pharmacy: [facility]/pharmacy #[id number], Alcohol abuse History of encephalopathy, 185.4, cm, 10/01/23 8:30:00 EST, Height, kg, 10/01/23 8:30:00 EST, Dosing Weight Start Date: 01/02/24 Status: Ordered traZODone hydrochloride 100 mg oral tablet (3 sources) Serotonin Reuptake Inhibitor Start: 05-26-2024 End: 05-21-2025 traZODone 100 mg oral tablet Dose : 100 mg = 1 tab(s), Oral, qHS, # 30 tab(s), 11 Refill(s), Pharmacy: [facility], 187, cm, 05/26/24 13:07:00 [...] # 12 tab(s), 1 Refill(s), Pharmacy: [facility]/pharmacy #[id number], Alcohol abuse History of encephalopathy, 185.4, cm, [...] # 90 tab(s), 0 Refill(s), Pharmacy: [facility]/pharmacy #[id number], Alcoholism CHECO (generalized anxiety disorder), [...] TID, # 90 tab(s), 1 Refill(s), [id number], Anxiety, generalized, 186, cm, 01/13/23 15:57:00 EDT, Height, 83.7, kg, 01/13/23 15:57:00 EDT, Dosing Weight Start Date: 05/05/23 Stop Date: 07/04/23 Status: Ordered Start: 11-28-2022 End: 02-26-2023 Ativan 1 mg oral tablet Dose : 1 mg = 1 tab(s), Oral, TID, # 90 tab(s), 2 Refill(s), [id number], Anxiety, generalized, 186, cm, 11/28/22 8:06:00 EDT, Height, 85.8, kg, 11/28/22 8:06:00 EDT, Dosing Weight Start Date: 11/28/22 Stop Date: 02/26/23 Status: Ordered Start: 10-16-2021 End: 11-15-2021 Ativan 1 mg oral tablet Dose : 1 mg = 1 tab(s), Oral, TID, # 90 tab(s), 0 Refill(s), Pharmacy: [facility]/pharmacy #[id number], Anxiety, generalized, 187, cm, 09/09/21 10:00:00 EST, Height, 84.4, kg, 09/09/21 10:00:00 EST, Dosing Weight Start Date: 10/16/21 Stop Date: 11/15/21 Status: Ordered Start: 06-10-2021 End: 07-10-2021 Ativan 1 mg oral tablet Dose : 1 mg = 1 tab(s), Oral, TID, # 90 tab(s), 0 Refill(s), Pharmacy: [facility]/pharmacy #[id number], Anxiety, generalized, 187, cm, 06/10/21 8:55:00 EDT, Height, 84.2, kg, 06/10/21 8:55:00 EDT, Dosing Weight Start Date: 06/10/21 Stop Date: 07/10/21 Status: Ordered losartan potassium 50 mg oral tablet (16 sources) Angiotensin 2 Receptor Bronwyn Start: 08-26-2023 End: 08-20-2024 losartan 50 mg oral tablet Dose : 50 mg = 1 tab(s), Oral, qDay, # 30 tab(s), 5 Refill(s), [id number], 185.4, cm, 10/01/23 8:30:00 EST, Height, kg, 10/01/23 8:30:00 EST, Dosing Weight Start Date: 10/01/23 Stop Date: 03/29/24 Status: Ordered Start: 07-09-2022 End: 07-04-2023 losartan 50 mg oral tablet D ose : 50 mg = 1 tab(s), Oral, qDay, # 90 tab(s), 3 Refill(s), [id number], 185, cm, 07/09/22 15:23:00 EST, Height, kg, 07/09/22 15:23:00 EST, Dosing Weight Start Date: 07/09/22 Stop Date: 07/04/23 Status: Ordered Start: 06-10-2021 End: 06-05-2022 losartan 50 mg oral tablet D ose : 50 mg = 1 tab(s), Oral, qDay, # 90 tab(s), 3 Refill(s), Pharmacy: [facility]/pharmacy #[id number], 187, cm, 06/10/21 8:55:00 EDT, [...] Other nervous system disorders (1 source) 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 Abby Marvin DO; Dr. Jennifer Villaseñor MD Signed Normal [facility] Abdomen/Pelvis W IV Cont ONL Yon 02-03-2025 Abdomen/Pelvis W IV Cont ONLY [facility] Imaging Services [address] [place], [place] [id number] Abdomen/Pelvis W IV Cont ONLY MR#: [id number] Acct: [id number] Name: JENNIFER YORK Rep #: [id number] : 1960 M 64 From: Michael Brunner MD PCP: Dr. Jennifer Villaseñor MD Status: REG ER Study: Abdomen/Pelvis W IV Cont ONLY Date of Exam: Exam# [id number] Ordering Dr: Abby Marvin DO EXAM: CT [...] fat. 6. Inguinal hernias, bilaterally. Reading Location: [facility] CC: Dr. Abby Marvin DO; Dr. Jennifer Villaseñor MD Historical Records Administrator: Signed Normal [facility] Absolute lymphocyte countOrd ered By: Abby Marvin on 02-03-2025 Lymphocytes Auto (Unsp spec) [#/Vol] 1.42 10*3/uL 0.83-4.51 [facility] Absolute neutrophil countOrd ered By: Abby Marvin on 02-03-2025 Neutrophils (Bld) [#/Vol] 1.6 10*3/uL Low 2.0-7.7 [facility] Alcohol, Blood (Medical)-Ser umon 02-03-2025 SERUM ETOH 335.0 mg/dL Invalid Interpretation Code <=10.0 [facility] Comment on above: Result Comment: Crit ical Result(s) Called at:02/03/2025-14:10 by: Aris Kaur to Tigre Saleem??Results read back by same. This test is for medical purposes only. The legal definition of intoxication varies according to local law. Performed By: #### L 100.0100, L500.4050, L501.9100 #### [facility] [address] [place], [place], [id number] Anion gap in Serum or Plasma Ordered By: Abby Marvin on 02-03-2025 Anion gap [Moles/Vol] 21 mmol/L High 5-15 [facility] Automated lymphocyte count a s percentage of total leukocytesOrdered By: Abby Marvin on 02-03-2025 Lymphocytes/100 WBC Auto (Unsp spec) 40.6 % -41 [facility] BUN/creatinine ratioOrdered By: Abby Marvin on 02-03-2025 Urea nitrogen/Creatinine [Mass ratio] 13.8 mg/mg 10- [facility] Basophil percentageOrdered B y: Abby Marvin on 02-03-2025 Basophils/100 WBC (Bld) 0.9 % 0-1 [facility] Bilirubin, totalOrdered By: Abby Yon on 02-03-2025 Bilirubin [Mass/Vol] 1.70 mg/dL High 0.00-1.30 [facility] Brain/Head without Contrasto n 02-03-2025 Brain/Head without Contrast [facility] Imaging Services [address] [place], [place] [address] Brain/Head without Contrast MR#: [id number] Acct: [id number] Name: JENNIFER YORK Rep #: [id number] : 1960 M 64 From: Yony pruitt MD PCP: Dr. Jennifer Villaseñor MD Status: REG ER Study: Brain/Head without Contrast Date of Exam: 01/16 Exam# [id number] Ordering Dr: Abby Marvin DO PROCEDURE: BRAIN/HEAD [...] CHRONIC CHANGES. NO ACUTE FINDINGS. Reading Location: [place] [address] CC: Dr. Abby Marvin DO; Dr. Jennifer Villaseñor MD Historical Records Administrator: Signed Normal [facility] CBC W/Diff, Automatedon 01-16 PLT EST MKD DEC Normal ADEQ [facility] Comment on above: Performed By: #### L 100.0100, L500.4050, L501.9100 #### [facility] [address] [place], [address] Carbon dioxide, total [Moles /volume] in Central venous bloodOrdered By: Abby Marvin on 02-03-2025 CO2 [Moles/Vol] 16.5 mmol/L Low 21.0-32.0 [facility] Chest without Contraston Chest without Contrast [facility] Imaging Services [address] [place] [address] Chest without Contrast MR#: [id number] Acct: [id number] Name: JENNIFER YORK Rep #: [id number] : 1960 M 64 From: Yony pruitt MD PCP: Dr. Jennifer Villaseñor MD Status: REG ER Study: Chest without Contrast Date of Exam: 02/03/25 Exam# [id number] Ordering Dr: Abby Marvin DO PROCEDURE: CHEST [...] Minimal amount of perisplenic fluid. [facility] CC: Dr. Abby Marvin, DO; Dr. Jennifer Villaseñor MD Historical Records Administrator: Signed Normal [facility] Chloride assayOrdered By: Og Marvin on 02-03-2025 Chloride [Moles/Vol] 104 mmol/L 98-108 [facility] Comprehensive Metabolic Prof ilon 02-03-2025 Albumin [Mass/Vol] 3.7 g/dL Normal 3.4-4.8 [facility] Comment on above: Performed By: #### L 100.0100, L500.4050, L501.9100 #### [facility] [address] [place], [address] Albumin/Globulin [Mass ratio] 0.7 {ratio} Low 0.9-2.4 [facility] Comment on above: Performed By: #### L 100.0100, L500.4050, L501.9100 #### [facility] [address] [place], [address] ALK PHOS 110 U/L Normal 40-129 [facility] Comment on above: Performed By: #### L 100.0100, L500.4050, L501.9100 #### [facility] [address] [place], [address] ALT [Catalytic activity/Vol] 50 U/L High <=46 [facility] Comment on above: Performed By: #### L 100.0100, L500.4050, L501.9100 #### [facility] [address] [place], [address] AST [Catalytic activity/Vol] 154 U/L High <=37 [facility] Comment on above: Performed By: #### L 100.0100, L500.4050, L501.9100 #### [facility] [address] [place], [address] Bilirubin [Mass/Vol] 1.70 mg/dL High 0.00-1.30 [facility] Comment on above: Performed By: #### L 100.0100, L500.4050, L501.9100 #### [facility] [address] [place], [address] BUN/CRE 13.8 RATIO Normal 10-20 [facility] Comment on above: Performed By: #### L 100.0100, L500.4050, L501.9100 #### [facility] [address] [place], [address] Calcium [Mass/Vol] 8.6 mg/dL Normal 7.6-11.0 [facility] Comment on above: Performed By: #### L 100.0100, L500.4050, L501.9100 #### [facility] [address] [place], [address] Chloride [Moles/Vol] 104 mmol/L Normal 98-108 [facility] Comment on above: Performed By: #### L 100.0100, L500.4050, L501.9100 #### [facility] [address] [place], [address] CO2 [Moles/Vol] 16.5 mmol/L Low 21.0-32.0 [facility] Comment on above: Performed By: #### L 100.0100, L500.4050, L501.9100 #### [facility] [address] [place], [address] Creatinine [Mass/Vol] 0.71 mg/dL Normal 0.70-1.20 [facility] Comment on above: Performed By: #### L 100.0100, L500.4050, L501.9100 #### [facility] [address] [place], [address] GAP 21 High 5-15 [facility] Comment on above: Performed By: #### L 100.0100, L500.4050, L501.9100 #### [facility] [address] [place], [address] GFR/1.73 sq M.predicted among non-blacks MDRD (S/P/Bld) [Vol rate/Area] 102 mL/min/{1.73_m2} Normal >60 [facility] Comment on above: Result Comment: mL/m in/1.73m2 CKD-EPI Creatinine Equation (2020) Performed By: #### L 100.0100, L500.4050, L501.9100 #### [facility] [address] [place], [address] Globulin (S) [Mass/Vol] 5.2 g/dL High 2.2-4.2 [facility] Comment on above: Performed By: #### L 100.0100, L500.4050, L501.9100 #### [facility] [address] [place], [address] Glucose [Mass/Vol] 84 mg/dL Normal 70-99 [facility] Comment on above: Performed By: #### L 100.0100, L500.4050, L501.9100 #### [facility] [address] [place], [address] Potassium [Moles/Vol] 3.7 mmol/L Normal 3.3-5.1 [facility] Comment on above: Performed By: #### L 100.0100, L500.4050, L501.9100 #### [facility] [address] [place], [address] Sodium [Moles/Vol] 142 mmol/L Normal 133-145 [facility] Comment on above: Performed By: #### L 100.0100, L500.4050, L501.9100 #### [facility] [address] [place], [address] T PROT 8.9 g/dL High 5.9-8.4 [facility] Comment on above: Performed By: #### L 100.0100, L500.4050, L501.9100 #### [facility] [address] [place], [address] Urea nitrogen [Mass/Vol] 10 mg/dL Normal 4-19 [facility] Comment on above: Performed By: #### L 100.0100, L500.4050, L501.9100 #### [facility] [address] [place], [address] Emergency Department Summary on 02-03-2025 Emergency Department Summary [facility] Medical Records Department [address] [place] [address] Emergency Department Summary 02/03/25 MR#: [id number] Acct: [id number] Name: JENNIFER YORK Rep #: [id number] : 1960 64 From: Abby Marvin DO [...] about this. Denies any blood thinner use. [facility] Medical History Chronic neck pain [...] F Temperatur (more content not included)... Normal [facility] Eosinophil percentageOrdered By: Abby Marvin on 02-03-2025 Eosinophils/100 WBC (Bld) 0.6 % 0-5 [facility] Erythrocyte distribution wid th ratioOrdered By: Abby Marvin on 02-03-2025 Erythrocyte distribution width (RBC) [Ratio] 15.4 % High 11.6-14.6 [facility] Erythrocyte distribution wid th standard deviationOrdered By: Abby Marvin on 02-03-2025 Erythrocyte distribution width (RBC) [Ratio] 59.4 fl High 35.1-43.9 [facility] Glomerular filtration rate ( GFR) estimation/1.73 sq m using serum, plasma, or whole bOrdered By: Abby Marvin on 02-03-2025 GFR/1.73 sq M.predicted among non-blacks MDRD (S/P/Bld) [Vol rate/Area] 102 mL/min/{1.73_m2} >60 [facility] Comment on above: mL/min/1.73m2 CKD-EP I Creatinine Equation (2020) Hematocrit Auto (Bld) [Volum e fraction]Ordered By: Abby Marvin on 02-03-2025 Hematocrit (Bld) [Volume fraction] 32.9 % Low 40-54 [facility] Hemoglobin measurementOrdere d By: Abby Marvin on 02-03-2025 Hemoglobin (Bld) [Mass/Vol] 11.0 g/dL Low 13.0-16.5 [facility] Immature granulocytes/100 WB C Auto (Bld)Ordered By: Abby Marvin on 02-03-2025 Immature granulocytes/100 WBC (Bld) 0.900 % 0.0-0.9 [facility] Comment on above: IG% - Immature Granu locytes (promyelocytes, myelocytes and metamyelocytes) > 1% indicates that a LEFT SHIFT is Present. Laboratory - Chemistry and C hemistry - challengeOrdered By: Abby Marvin on 02-03-2025 AST [Catalytic activity/Vol] 154 U/L High <38 [facility] MCV (mean corpuscular volume ) determinationOrdered By: Abby Marvin on 02-03-2025 MCV (RBC) [Entitic vol] 103.5 fL High 80-94 [facility] Mean corpuscular hemoglobin (MCH) determinationOrdered By: Abby Marvin on 02-03-2025 MCH (RBC) [Entitic mass] 34.6 pg High 27.0-32.0 [facility] Mean corpuscular hemoglobin concentration (MCHC) determinationOrdered By: Abby Marvin on 02-03-2025 MCHC (RBC) [Mass/Vol] 33.4 g/dL 32-36 [facility] Mean platelet volume determi nationOrdered By: Abby Marvin on 02-03-2025 Platelet mean volume (Bld) [Entitic vol] 11.6 fL 6.2-12.0 [facility] Monocyte percentageOrdered B y: Abby Marvin on 02-03-2025 Monocytes/100 WBC (Bld) 10.6 % High 0-10 [facility] Neutrophil percentageOrdered By: Abby Marvin on 02-03-2025 Neutrophils/100 WBC (Bld) 46.4 % Low 47-70 [facility] Nucleated red blood cell per centageOrdered By: Abby Marvin on 02-03-2025 Nucleated RBC/100 WBC (Bld) [Ratio] 0 % 0-5 [facility] Platelet countOrdered By: Og Marvin on 02-03-2025 Platelets (Bld) [#/Vol] 31 10*3/uL Low 150-450 [facility] Comment on above: CRITICAL VALUE ALANIS D TO [place] (ER)02/03/25 1348 Zafar Kang.RESULTS READ BACK BY SAME. Platelet estimateOrdered By: Abby Marvin on 02-03-2025 Platelets LM Ql (Bld) MKD DEC ADEQ [facility] Potassium measurement (mass/ volume)Ordered By: Abby Marvin on 02-03-2025 Potassium (Unsp spec) [Mass/Vol] 3.7 mmol/L 3.3-5.1 [facility] RBC Auto (Bld) [#/Vol]Ordere d By: Abby Marvin on 02-03-2025 RBC (Bld) [#/Vol] 3.18 10*6/uL Low 4.6-6.2 [facility] Serum creatinine measurement (mass/volume)Ordered By: Abby Marvin on 02-03-2025 Creatinine [Mass/Vol] 0.71 mg/dL 0.70-1.20 [facility] Serum globulin measurementOr dered By: Abby Marvin on 02-03-2025 Globulin (S) [Mass/Vol] 5.2 g/dL High 2.2-4.2 [facility] Serum glucose measurement (m ass/volume)Ordered By: Abby Marvin on 02-03-2025 Glucose [Mass/Vol] 84 mg/dL 70-99 [facility] Serum or plasma alanine eckert otransferase (ALT) measurementOrdered By: Abby Marvin on 02-03-2025 ALT [Catalytic activity/Vol] 50 U/L High <47 [facility] Serum or plasma albumin josé miguel urement (mass/volume)Ordered By: Abby Marvin on 02-03-2025 Albumin [Mass/Vol] 3.7 g/dL 3.4-4.8 [facility] Serum or plasma albumin/glob ulin mass ratioOrdered By: Abby Marvin on 02-03-2025 Albumin/Globulin [Mass ratio] 0.7 {ratio} Low 0.9-2.4 [facility] Serum or plasma alkaline silva sphatase measurementOrdered By: Abby Marvin on 02-03-2025 ALP [Catalytic activity/Vol] 110 U/L 40-129 [facility] Serum or plasma calcium josé miguel urement (mass/volume)Ordered By: Abby Marvin on 02-03-2025 Calcium [Mass/Vol] 8.6 mg/dL 7.6-11.0 [facility] Serum or plasma ethanol josé miguel urement (mass/volume)Ordered By: Abby Marvin on 02-03-2025 Ethanol [Mass/Vol] 335.0 mg/dL High <10.1 [facility] Comment on above: Critical Result(s) C alled at:02/03/2025-14:10 by: Aris Kaur to Tigre Saleem Results read back by same.This test is for medical purposes only. The legal definition of intoxication varies according to local law. Serum or plasma urea nitroge n measurement (mass/volume)Ordered By: Abby Marvin on 02-03-2025 Urea nitrogen [Mass/Vol] 10 mg/dL 4-19 [facility] Sodium levelOrdered By: Alvin Marvin on 02-03-2025 Sodium [Moles/Vol] 142 mmol/L 133-145 [facility] Total proteinOrdered By: Katherine Marvin on 02-03-2025 Protein [Mass/Vol] 8.9 g/dL High 5.9-8.4 [facility] White blood cell (WBC) count Ordered By: Abby Marvin on 02-03-2025 WBC (Bld) [#/Vol] 3.5 10*3/uL Low 4.4-11.0 [facility] .GFRon 10-13-2024 Estimated Glomerular Filtration Rate 104 ml/min/1.73sqm Normal [facility] Comment on above: Result Comment: Stages [...] MP, CBC, ADIFF, GFR, ANEU, MG #### [address] [address] BMPon 10-13-2024 BUN/Creatinine Ratio 10 ratio Normal 7-27 [facility] Comment on above: Performed By: #### B MP, CBC, ADIFF, GFR, ANEU, MG #### [address] [address] Calcium [Mass/Vol] 8.4 mg/dL Normal 8.4-10.2 [facility] Comment on above: Performed By: #### B MP, CBC, ADIFF, GFR, ANEU, MG #### [address] [address] Chloride [Moles/Vol] 101 mmol/L Normal 98-107 [facility] Comment on above: Performed By: #### B MP, CBC, ADIFF, GFR, ANEU, MG #### [address] [address] CO2 [Moles/Vol] 25 mmol/L Normal 23-31 [facility] Comment on above: Performed By: #### B MP, CBC, ADIFF, GFR, ANEU, MG #### [address] [address] Creatinine [Mass/Vol] 0.67 mg/dL Low 0.70-1.30 [facility] Comment on above: Result Comment: Test ing performed on Siemens Dimension EXL analyzer using a modified kinetic Tri technique. Performed By: #### B MP, CBC, ADIFF, GFR, ANEU, MG #### [address] [address] Electrolyte Balance 11.0 mEq/L Normal 4.0-15.0 [facility] Comment on above: Performed By: #### B MP, CBC, ADIFF, GFR, ANEU, MG #### [address] [address] Glucose [Mass/Vol] 84 mg/dL Normal 80-115 [facility] Comment on above: Performed By: #### B MP, CBC, ADIFF, GFR, ANEU, MG #### [address] [address] Potassium [Moles/Vol] 4.2 mmol/L Normal 3.5-5.1 [facility] Comment on above: Performed By: #### B MP, CBC, ADIFF, GFR, ANEU, MG #### [address] [address] Sodium [Moles/Vol] 137 mmol/L Normal 136-145 [facility] Comment on above: Performed By: #### B MP, CBC, ADIFF, GFR, ANEU, MG #### [address] [address] Urea nitrogen [Mass/Vol] 7 mg/dL Normal 7-18 [facility] Comment on above: Performed By: #### B MP, CBC, ADIFF, GFR, ANEU, MG #### [address] [address] HFPon 10-13-2024 Bili Indirect 0.9 mg/dL Normal [facility] Comment on above: Performed By: #### B MP, CBC, ADIFF, GFR, ANEU, MG #### [address] [address] Albumin Level 2.1 G/dL Low 3.4-4.8 [facility] Comment on above: Performed By: #### B MP, CBC, ADIFF, GFR, ANEU, MG #### [address] [address] Albumin/Globulin [Mass ratio] 0.5 {ratio} Low 1.1-2.5 [facility] Comment on above: Performed By: #### B MP, CBC, ADIFF, GFR, ANEU, MG #### [place] [address] ALP [Catalytic activity/Vol] 176 U/L High 40-135 [facility] Comment on above: Performed By: #### B MP, CBC, ADIFF, GFR, ANEU, MG #### [place] [address] ALT [Catalytic activity/Vol] 63 U/L Normal 16-63 [facility] Comment on above: Performed By: #### B MP, CBC, ADIFF, GFR, ANEU, MG #### [place] [address] AST [Catalytic activity/Vol] 262 U/L High 10-40 [facility] Comment on above: Performed By: #### B MP, CBC, ADIFF, GFR, ANEU, MG #### [place] [address] Bili Direct 3.6 mg/dL High 0.0-0.2 [facility] Comment on above: Result Comment: Use of this assay is not recommended for patients undergoing treatment with eltrombopag due to the potential for falsely elevated results. Performed By: #### B MP, CBC, ADIFF, GFR, ANEU, MG #### [place] [address] Bili Total 4.5 mg/dL High 0.2-1.0 [facility] Comment on above: Result Comment: Use of this assay is not recommended for patients undergoing treatment with eltrombopag due to the potential for falsely elevated results. Performed By: #### B MP, CBC, ADIFF, GFR, ANEU, MG #### [place] [address] Globulin 4.6 G/dL High 1.5-3.8 [facility] Comment on above: Performed By: #### B MP, CBC, ADIFF, GFR, ANEU, MG #### [place] [id number] Total Protein 6.7 G/dL Normal 6.4-8.2 [facility] Comment on above: Performed By: #### B MP, CBC, ADIFF, GFR, ANEU, MG #### [place] [id number] [place], [place] [address] LABORATORYOrdered By: SYSTEM SYSTEM on 10-13-2024 Albumin [...] 10-13-2024 Magnesium [Mass/Vol] 1.7 mg/dL Low 1.8-2.4 [facility] Comment on above: Performed By: #### B MP, CBC, ADIFF, GFR, ANEU, MG #### [address] [address] .GFRon 10-12-2024 Estimated Glomerular Filtration Rate 100 ml/min/1.73sqm Normal [facility] Comment on above: Result Comment: Stages [...] results. Performed By: #### R ESCOLIVIA #### [facility] [address] [place] [id number] BUN/Creatinine Ratio 9 ratio Normal 7-27 [facility] Comment on above: Performed By: #### Gabriel SAEZ UA #### [address] [address] Calcium [Mass/Vol] 8.3 mg/dL Low 8.4-10.2 [facility] Comment on above: Performed By: #### Gabriel SAEZ UA #### [address] [address] Chloride [Moles/Vol] 101 mmol/L Normal 98-107 [facility] Comment on above: Performed By: #### Gabriel SAEZ UA #### [address] [address] CO2 [Moles/Vol] 27 mmol/L Normal 23-31 [facility] Comment on above: Performed By: #### Gabriel SAEZ UA #### [address] [address] Creatinine [Mass/Vol] 0.76 mg/dL Normal 0.70-1.30 [facility] Comment on above: Result Comment: Test ing performed on Siemens Dimension EXL analyzer using a modified kinetic Tri technique. Performed By: #### Gabriel SAEZ UA #### [address] [address] Electrolyte Balance 6.0 mEq/L Normal 4.0-15.0 [facility] Comment on above: Performed By: #### U SE, UA #### [address] [address] Glucose [Mass/Vol] 82 mg/dL Normal 80-115 [facility] Comment on above: Performed By: #### Gabriel SAEZ UA #### [place] [phone] [place], [place] [address] Potassium [Moles/Vol] 3.6 mmol/L Normal 3.5-5.1 [facility] Comment on above: Performed By: #### Gabriel SAEZ UA #### [address] [address] Sodium [Moles/Vol] 134 mmol/L Low 136-145 [facility] Comment on above: Performed By: #### Gabriel SAEZ UA #### [address] [address] Urea nitrogen [Mass/Vol] 7 mg/dL Normal 7-18 [facility] Comment on above: Performed By: #### Gabriel SAEZ UA #### [address] [address] HFPon 10-12-2024 Bili Indirect 0.6 mg/dL Normal [facility] Comment on above: Performed By: #### Blanche TAYLOR #### [address] [address] Albumin Level 2.0 G/dL Low 3.4-4.8 [facility] Comment on above: Performed By: #### Blanche TAYLOR #### [address] [address] Albumin/Globulin [Mass ratio] 0.5 {ratio} Low 1.1-2.5 [facility] Comment on above: Performed By: #### Blanche TAYLOR #### [address] [address] ALP [Catalytic activity/Vol] 161 U/L High 40-135 [facility] Comment on above: Performed By: #### Blanche TAYLOR #### [address] [address] ALT [Catalytic activity/Vol] 60 U/L Normal 16-63 [facility] Comment on above: Performed By: #### R ESCVID #### [place] [address] AST [Catalytic activity/Vol] 289 U/L High 10-40 [facility] Comment on above: Performed By: #### R ESCVID #### [place] [address] Bili Direct 3.0 mg/dL High 0.0-0.2 [facility] Comment on above: Result Comment: Use of this assay is not recommended for patients undergoing treatment with eltrombopag due to the potential for falsely elevated results. Performed By: #### R ESCVID #### [place] [address] Bili Total 3.6 mg/dL High 0.2-1.0 [facility] Comment on above: Result Comment: Use of this assay is not recommended for patients undergoing treatment with eltrombopag due to the potential for falsely elevated results. Performed By: #### R ESCVID #### [place] [address] Globulin 4.3 G/dL High 1.5-3.8 [facility] Comment on above: Performed By: #### R ESCVID #### [place] [address] Total Protein 6.3 G/dL Low 6.4-8.2 [facility] Comment on above: Performed By: #### R ESCVID #### [place] [address] LABORATORYOrdered By: SYSTEM SYSTEM on 10-12-2024 Albumin [...] 10-12-2024 Magnesium [Mass/Vol] 1.6 mg/dL Low 1.8-2.4 [facility] Comment on above: Performed By: #### R ESCVID #### [address] [address] .Auto Diffon 10-11-2024 Basophil, Absolute 0.0 10 3/mcL Normal 0.0-0.2 [facility] Comment on above: Performed By: #### B MP, CBC, ADIFF, GFR, ANEU, MG #### [address] [address] Basophils/100 WBC (Bld) 0.6 % Normal 0.0-2.5 [facility] Comment on above: Performed By: #### B MP, CBC, ADIFF, GFR, ANEU, MG #### [address] [address] Eosinophil, Absolute 0.0 10 3/mcL Normal 0.0-0.7 [facility] Comment on above: Performed By: #### B MP, CBC, ADIFF, GFR, ANEU, MG #### [address] [address] Eosinophils/100 WBC (Bld) 0.4 % Normal 0.0-7.0 [facility] Comment on above: Performed By: #### B MP, CBC, ADIFF, GFR, ANEU, MG #### [address] [address] Lymphocyte, Absolute 0.8 10 3/mcL Low 0.9-4.3 [facility] Comment on above: Performed By: #### B MP, CBC, ADIFF, GFR, ANEU, MG #### [address] [address] Lymphocytes/100 WBC (Bld) 21.7 % Normal 20.0-40.0 [facility] Comment on above: Performed By: #### B MP, CBC, ADIFF, GFR, ANEU, MG #### [address] [address] Monocyte, Absolute 0.3 10 3/mcL Normal 0.1-1.4 [facility] Comment on above: Performed By: #### B MP, CBC, ADIFF, GFR, ANEU, MG #### [address] [address] Monocytes/100 WBC (Bld) 7.8 % Normal 2.0-13.0 [facility] Comment on above: Performed By: #### B MP, CBC, ADIFF, GFR, ANEU, MG #### [address] [address] Neutrophils/100 WBC (Bld) 69.5 % Normal 50.0-75.0 [facility] Comment on above: Performed By: #### B MP, CBC, ADIFF, GFR, ANEU, MG #### [address] [address] .GFRon 10-11-2024 Estimated Glomerular Filtration Rate 104 ml/min/1.73sqm Normal [facility] Comment on above: Result Comment: Stages [...] MP, CBC, ADIFF, GFR, ANEU, MG #### [address] [address] .NEUABSon 10-11-2024 Neutrophil, Absolute 2.5 10 3/mcL Normal 2.3-8.1 [facility] Comment on above: Performed By: #### B MP, CBC, ADIFF, GFR, ANEU, MG #### [address] [address] Noemí 10-11-2024 Ammonia (P) [Moles/Vol] 12 umol/L Normal 11-32 [facility] Comment on above: Performed By: #### B MP, CBC, ADIFF, GFR, ANEU, MG #### [address] [address] BGon 10-11-2024 Base excess Calc (Bld) [Moles/Vol] 3.0 mmol/L Normal [facility] Comment on above: Performed By: #### B MP, CBC, ADIFF, GFR, ANEU, MG #### [address] [address] CO2 [Moles/Vol] 26.8 mmol/L Normal 22.0-30.0 [facility] Comment on above: Performed By: #### B MP, CBC, ADIFF, GFR, ANEU, MG #### [address] [address] HCO3 (Bld) [Moles/Vol] 25.8 mmol/L Normal 21.0-29.0 [facility] Comment on above: Performed By: #### B MP, CBC, ADIFF, GFR, ANEU, MG #### [address] [address] Oxygen (Bld) [Partial pressure] 58.4 mm[Hg] Low 74.0-108.0 [facility] Comment on above: Performed By: #### B MP, CBC, ADIFF, GFR, ANEU, MG #### [address] [address] Oxygen saturation in Blood 90.5 % Low 92.0-96.0 [facility] Comment on above: Performed By: #### B MP, CBC, ADIFF, GFR, ANEU, MG #### [address] [address] pCO2 33.4 mmHg Normal 32.0-46.0 [facility] Comment on above: Performed By: #### B MP, CBC, ADIFF, GFR, ANEU, MG #### [address] [address] pH (Bld) 7.506 [pH] High 7.380-7.46 0 [facility] Comment on above: Performed By: #### B MP, CBC, ADIFF, GFR, ANEU, MG #### [address] [address] BMPon 10-11-2024 BUN/Creatinine Ratio 10 ratio Normal 7-27 [facility] Comment on above: Performed By: #### B MP, CBC, ADIFF, GFR, ANEU, MG #### [address] [address] Calcium [Mass/Vol] 8.3 mg/dL Low 8.4-10.2 [facility] Comment on above: Performed By: #### B MP, CBC, ADIFF, GFR, ANEU, MG #### [address] [address] Chloride [Moles/Vol] 100 mmol/L Normal 98-107 [facility] Comment on above: Performed By: #### B MP, CBC, ADIFF, GFR, ANEU, MG #### [address] [address] CO2 [Moles/Vol] 28 mmol/L Normal 23-31 [facility] Comment on above: Performed By: #### B MP, CBC, ADIFF, GFR, ANEU, MG #### [address] [address] Creatinine [Mass/Vol] 0.67 mg/dL Low 0.70-1.30 [facility] Comment on above: Result Comment: Test ing performed on Siemens Dimension EXL analyzer using a modified kinetic Tri technique. Performed By: #### B MP, CBC, ADIFF, GFR, ANEU, MG #### [address] [address] Electrolyte Balance 7.0 mEq/L Normal 4.0-15.0 [facility] Comment on above: Performed By: #### B MP, CBC, ADIFF, GFR, ANEU, MG #### [address] [address] Glucose [Mass/Vol] 80 mg/dL Normal 80-115 [facility] Comment on above: Performed By: #### B MP, CBC, ADIFF, GFR, ANEU, MG #### [address] [address] Potassium [Moles/Vol] 3.7 mmol/L Normal 3.5-5.1 [facility] Comment on above: Performed By: #### B MP, CBC, ADIFF, GFR, ANEU, MG #### [address] [address] Sodium [Moles/Vol] 135 mmol/L Low 136-145 [facility] Comment on above: Performed By: #### B MP, CBC, ADIFF, GFR, ANEU, MG #### [address] [address] Urea nitrogen [Mass/Vol] 7 mg/dL Normal 7-18 [facility] Comment on above: Performed By: #### B MP, CBC, ADIFF, GFR, ANEU, MG #### [address] [address] CBCon 10-11-2024 Erythrocyte distribution width (RBC) [Ratio] 15.2 % Normal 11.5-15.5 [facility] Comment on above: Performed By: #### B MP, CBC, ADIFF, GFR, ANEU, MG #### [address] [address] Hematocrit (Bld) [Volume fraction] 30.7 % Low 40.0-52.0 [facility] Comment on above: Performed By: #### B MP, CBC, ADIFF, GFR, ANEU, MG #### [place] [id number] Hgb 10.4 G/dL Low 13.0-17.5 [facility] Comment on above: Performed By: #### B MP, CBC, ADIFF, GFR, ANEU, MG #### [address] [address] MCH (RBC) [Entitic mass] 35.1 pg High 27.0-33.0 [facility] Comment on above: Performed By: #### B MP, CBC, ADIFF, GFR, ANEU, MG #### [address] [address] MCHC 34.0 G/dL Normal 32.0-36.0 [facility] Comment on above: Performed By: #### B MP, CBC, ADIFF, GFR, ANEU, MG #### [address] [address] MCV (RBC) [Entitic vol] 103.2 fL High 81.0-100.0 [facility] Comment on above: Performed By: #### B MP, CBC, ADIFF, GFR, ANEU, MG #### [address] [address] Platelet 111 10 3/mcL Low 150-450 [facility] Comment on above: Performed By: #### B MP, CBC, ADIFF, GFR, ANEU, MG #### [address] [address] Platelet mean volume (Bld) [Entitic vol] 9.6 fL Normal 6.4-10.5 [facility] Comment on above: Performed By: #### B MP, CBC, ADIFF, GFR, ANEU, MG #### [place] [address] RBC 2.97 10 6/mcL Low 4.50-6.00 [facility] Comment on above: Performed By: #### B MP, CBC, ADIFF, GFR, ANEU, MG #### [place] [address] WBC 3.5 10 3/mcL Low 4.5-10.8 [facility] Comment on above: Performed By: #### B MP, CBC, ADIFF, GFR, ANEU, MG #### [place] [address] HFPon 10-11-2024 Bili Indirect 0.6 mg/dL Normal [facility] Comment on above: Performed By: #### B MP, CBC, ADIFF, GFR, ANEU, MG #### [place] [address] Albumin Level 2.0 G/dL Low 3.4-4.8 [facility] Comment on above: Performed By: #### B MP, CBC, ADIFF, GFR, ANEU, MG #### [place] [address] Albumin/Globulin [Mass ratio] 0.4 {ratio} Low 1.1-2.5 [facility] Comment on above: Performed By: #### B MP, CBC, ADIFF, GFR, ANEU, MG #### [place] [address] ALP [Catalytic activity/Vol] 144 U/L High 40-135 [facility] Comment on above: Performed By: #### B MP, CBC, ADIFF, GFR, ANEU, MG #### [place] [address] ALT [Catalytic activity/Vol] 56 U/L Normal 16-63 [facility] Comment on above: Performed By: #### B MP, CBC, ADIFF, GFR, ANEU, MG #### [place] [phone] AST [Catalytic activity/Vol] 303 U/L High 10-40 [facility] Comment on above: Performed By: #### B MP, CBC, ADIFF, GFR, ANEU, MG #### [place] [address] Bili Direct 2.6 mg/dL High 0.0-0.2 [facility] Comment on above: Result Comment: Use of this assay is not recommended for patients undergoing treatment with eltrombopag due to the potential for falsely elevated results. Performed By: #### B MP, CBC, ADIFF, GFR, ANEU, MG #### [place] [address] Bili Total 3.2 mg/dL High 0.2-1.0 [facility] Comment on above: Result Comment: Use of this assay is not recommended for patients undergoing treatment with eltrombopag due to the potential for falsely elevated results. Performed By: #### B MP, CBC, ADIFF, GFR, ANEU, MG #### [place] [address] Globulin 4.5 G/dL High 1.5-3.8 [facility] Comment on above: Performed By: #### B MP, CBC, ADIFF, GFR, ANEU, MG #### [place] [address] Total Protein 6.5 G/dL Normal 6.4-8.2 [facility] Comment on above: Performed By: #### B MP, CBC, ADIFF, GFR, ANEU, MG #### [place] [address] LABORATORYOrdered By: Elliott Vitale on 10-11-2024 CO2 [...] Comment on above: Interpretive Data: Paul isbell [employer] (CHEST, 1991, 102:[id number]) [...] 10-11-2024 Magnesium [Mass/Vol] 1.6 mg/dL Low 1.8-2.4 [facility] Comment on above: Performed By: #### B MP, CBC, ADIFF, GFR, ANEU, MG #### [address] [address] PROon 10-11-2024 PT Coag (PPP) [Time] 14.4 s Normal 9.0-14.4 [facility] Comment on above: Performed By: #### B MP, CBC, ADIFF, GFR, ANEU, MG #### [address] [address] PT International Ratio 1.2 Normal [facility] Comment on above: Result Comment: The [employer] (CHEST, 1992, 102:[id number]) recommended therapeutic range for oral anticoagulant therapy is: LOW RISK: Prophylaxis of venous thrombosis INR: 2.0-3.0 Treatment of pulmonary embolism 2.0-3.0 Prevention of systemic embolism 2.0-3.0 HIGH RISK: Mechanical prosthetic valves 2.5-3.5 Performed By: #### B MP, CBC, ADIFF, GFR, ANEU, MG #### [address] [address] .Auto Diffon 10-10-2024 Basophil, Absolute 0.0 10 3/mcL Normal 0.0-0.2 [facility] Comment on above: Performed By: #### B MP, CBC, ADIFF, GFR, ANEU, MG #### [address] [address] Basophils/100 WBC (Bld) 0.9 % Normal 0.0-2.5 [facility] Comment on above: Performed By: #### B MP, CBC, ADIFF, GFR, ANEU, MG #### [address] [address] Eosinophil, Absolute 0.0 10 3/mcL Normal 0.0-0.7 [facility] Comment on above: Performed By: #### B MP, CBC, ADIFF, GFR, ANEU, MG #### [address] [address] Eosinophils/100 WBC (Bld) 0.2 % Normal 0.0-7.0 [facility] Comment on above: Performed By: #### B MP, CBC, ADIFF, GFR, ANEU, MG #### [address] [address] Lymphocyte, Absolute 0.8 10 3/mcL Low 0.9-4.3 [facility] Comment on above: Performed By: #### B MP, CBC, ADIFF, GFR, ANEU, MG #### [address] [address] Lymphocytes/100 WBC (Bld) 23.8 % Normal 20.0-40.0 [facility] Comment on above: Performed By: #### B MP, CBC, ADIFF, GFR, ANEU, MG #### [address] [address] Monocyte, Absolute 0.3 10 3/mcL Normal 0.1-1.4 [facility] Comment on above: Performed By: #### B MP, CBC, ADIFF, GFR, ANEU, MG #### [address] [address] Monocytes/100 WBC (Bld) 7.8 % Normal 2.0-13.0 [facility] Comment on above: Performed By: #### B MP, CBC, ADIFF, GFR, ANEU, MG #### [address] [address] Neutrophils/100 WBC (Bld) 67.3 % Normal 50.0-75.0 [facility] Comment on above: Performed By: #### B MP, CBC, ADIFF, GFR, ANEU, MG #### [address] [address] .GFRon 10-10-2024 Estimated Glomerular Filtration Rate 104 ml/min/1.73sqm Normal [facility] Comment on above: Result Comment: Stages [...] MP, CBC, ADIFF, GFR, ANEU, MG #### [place] [address] .Morphon 10-10-2024 Anisocytosis Ql (Bld) 1+ Normal [facility] Comment on above: Performed By: #### B MP, CBC, ADIFF, GFR, ANEU, MG #### [place] [address] Macrocytosis 1+ Normal [facility] Comment on above: Performed By: #### B MP, CBC, ADIFF, GFR, ANEU, MG #### [place] [address] Platelet Estimate Decreased Normal [facility] Comment on above: Performed By: #### B MP, CBC, ADIFF, GFR, ANEU, MG #### [place] [address] Target Cell 1+ Normal [facility] Comment on above: Performed By: #### B MP, CBC, ADIFF, GFR, ANEU, MG #### [place] [address] .NEUABSon 10-10-2024 Neutrophil, Absolute 2.3 10 3/mcL Normal 2.3-8.1 [facility] Comment on above: Performed By: #### B MP, CBC, ADIFF, GFR, ANEU, MG #### [address] [address] Noemí 10-10-2024 Ammonia (P) [Moles/Vol] 17 umol/L Normal 11-32 [facility] Comment on above: Performed By: #### U AMICAO, UA #### [address] [address] BMPon 10-10-2024 BUN/Creatinine Ratio 9 ratio Normal 7-27 [facility] Comment on above: Performed By: #### B MP, CBC, ADIFF, GFR, ANEU, MG #### [place] [address] Calcium [Mass/Vol] 8.4 mg/dL Normal 8.4-10.2 [facility] Comment on above: Performed By: #### B MP, CBC, ADIFF, GFR, ANEU, MG #### [place] [address] Chloride [Moles/Vol] 101 mmol/L Normal 98-107 [facility] Comment on above: Performed By: #### B MP, CBC, ADIFF, GFR, ANEU, MG #### [address] [address] CO2 [Moles/Vol] 29 mmol/L Normal 23-31 [facility] Comment on above: Performed By: #### B MP, CBC, ADIFF, GFR, ANEU, MG #### [address] [address] Creatinine [Mass/Vol] 0.67 mg/dL Low 0.70-1.30 [facility] Comment on above: Result Comment: Test ing performed on Siemens Dimension EXL analyzer using a modified kinetic Tri technique. Performed By: #### B MP, CBC, ADIFF, GFR, ANEU, MG #### [place] [address] Electrolyte Balance 8.0 mEq/L Normal 4.0-15.0 [facility] Comment on above: Performed By: #### B MP, CBC, ADIFF, GFR, ANEU, MG #### [address] [address] Glucose [Mass/Vol] 79 mg/dL Low 80-115 [facility] Comment on above: Performed By: #### B MP, CBC, ADIFF, GFR, ANEU, MG #### [place] [phone] Potassium [Moles/Vol] 2.8 mmol/L Low 3.5-5.1 [facility] Comment on above: Performed By: #### B MP, CBC, ADIFF, GFR, ANEU, MG #### [place] [address] Sodium [Moles/Vol] 138 mmol/L Normal 136-145 [facility] Comment on above: Performed By: #### B MP, CBC, ADIFF, GFR, ANEU, MG #### [place] [address] Urea nitrogen [Mass/Vol] 6 mg/dL Low 7-18 [facility] Comment on above: Performed By: #### B MP, CBC, ADIFF, GFR, ANEU, MG #### [place] [id number] CBCon 10-10-2024 Erythrocyte distribution width (RBC) [Ratio] 15.4 % Normal 11.5-15.5 [facility] Comment on above: Performed By: #### B MP, CBC, ADIFF, GFR, ANEU, MG #### [address] [address] Hematocrit (Bld) [Volume fraction] 28.2 % Low 40.0-52.0 [facility] Comment on above: Performed By: #### B MP, CBC, ADIFF, GFR, ANEU, MG #### [place] [address] Hgb 9.5 G/dL Low 13.0-17.5 [facility] Comment on above: Performed By: #### B MP, CBC, ADIFF, GFR, ANEU, MG #### [address] [address] MCH (RBC) [Entitic mass] 34.9 pg High 27.0-33.0 [facility] Comment on above: Performed By: #### B MP, CBC, ADIFF, GFR, ANEU, MG #### [place] [address] MCHC 33.5 G/dL Normal 32.0-36.0 [facility] Comment on above: Performed By: #### B MP, CBC, ADIFF, GFR, ANEU, MG #### [place] [address] MCV (RBC) [Entitic vol] 104.3 fL High 81.0-100.0 [facility] Comment on above: Performed By: #### B MP, CBC, ADIFF, GFR, ANEU, MG #### [place] [address] Platelet 96 10 3/mcL Low 150-450 [facility] Comment on above: Performed By: #### B MP, CBC, ADIFF, GFR, ANEU, MG #### [place] [address] Platelet mean volume (Bld) [Entitic vol] 10.1 fL Normal 6.4-10.5 [facility] Comment on above: Performed By: #### B MP, CBC, ADIFF, GFR, ANEU, MG #### [place] [address] RBC 2.71 10 6/mcL Low 4.50-6.00 [facility] Comment on above: Performed By: #### B MP, CBC, ADIFF, GFR, ANEU, MG #### [place] [address] WBC 3.4 10 3/mcL Low 4.5-10.8 [facility] Comment on above: Performed By: #### B MP, CBC, ADIFF, GFR, ANEU, MG #### [address] [address] [address] HEAD OR BRAIN W/O CONTRAS Ton [...] by: Jenifer Rogers MD Preliminary Report By: Jneifer Rogers MD Electronically signed By Jenifer Rogers MD Dictated Date: 10/10/2024 4:29:14 PM Prelim Date: 10/10/2024 4:34:44 PM Sign Date: 10/10/2024 4:34:44 PM Ordering Provider: CINDY BAILEY Normal [facility] HFPon 10-10-2024 Bili Indirect 0.4 mg/dL Normal [facility] Comment on above: Performed By: #### B MP, CBC, ADIFF, GFR, ANEU, MG #### [address] [address] Albumin Level 2.0 G/dL Low 3.4-4.8 [facility] Comment on above: Performed By: #### B MP, CBC, ADIFF, GFR, ANEU, MG #### [place] [address] Albumin/Globulin [Mass ratio] 0.5 {ratio} Low 1.1-2.5 [facility] Comment on above: Performed By: #### B MP, CBC, ADIFF, GFR, ANEU, MG #### [place] [address] ALP [Catalytic activity/Vol] 116 U/L Normal 40-135 [facility] Comment on above: Performed By: #### B MP, CBC, ADIFF, GFR, ANEU, MG #### [place] [address] ALT [Catalytic activity/Vol] 52 U/L Normal 16-63 [facility] Comment on above: Performed By: #### B MP, CBC, ADIFF, GFR, ANEU, MG #### [place] [address] AST [Catalytic activity/Vol] 270 U/L High 10-40 [facility] Comment on above: Performed By: #### B MP, CBC, ADIFF, GFR, ANEU, MG #### [place] [address] Bili Direct 2.5 mg/dL High 0.0-0.2 [facility] Comment on above: Result Comment: Use of this assay is not recommended for patients undergoing treatment with eltrombopag due to the potential for falsely elevated results. Performed By: #### B MP, CBC, ADIFF, GFR, ANEU, MG #### [place] [address] Bili Total 2.9 mg/dL High 0.2-1.0 [facility] Comment on above: Result Comment: Use of this assay is not recommended for patients undergoing treatment with eltrombopag due to the potential for falsely elevated results. Performed By: #### B MP, CBC, ADIFF, GFR, ANEU, MG #### [place] [address] Globulin 4.0 G/dL High 1.5-3.8 [facility] Comment on above: Performed By: #### B MP, CBC, ADIFF, GFR, ANEU, MG #### [facility] [address] [place], [place] [address] Total Protein 6.0 G/dL Low 6.4-8.2 [facility] Comment on above: Performed By: #### B MP, CBC, ADIFF, GFR, ANEU, MG #### [facility] [address] [place], [place] [address] LABORATORYOrdered By: SYSTEM SYSTEM on 10-10-2024 Ammonia [...] 10-10-2024 Magnesium [Mass/Vol] 1.5 mg/dL Low 1.8-2.4 [facility] Comment on above: Performed By: #### B MP, CBC, ADIFF, GFR, ANEU, MG #### [facility] [address] [place], [place] [address] RESCVIDon 10-10-2024 Adenovirus Not detected Normal Not Detected [facility] Comment on above: Performed By: #### R ESCVID #### [facility] [address] [place] [address] Bordetella Parapertussis Not detected Normal Not Detected [facility] Comment on above: Performed By: #### R ESCVID #### [facility] [address] [place] [id number] Bordetella Pertussis Not detected Normal Not Detected [facility] Comment on above: Performed By: #### R ESCVID #### [facility] [address] [place] [address] Chlamydophila pneumoniae Not detected Normal Not Detected [facility] Comment on above: Performed By: #### R ESCVID #### [facility] [address] [place] [address] Coronavirus 229E (Not COVID-19) Not detected Normal Not Detected [facility] Comment on above: Performed By: #### R ESCVID #### [facility] [address] [place], [place] [id number] Coronavirus HKU1 (Not COVID-19) Not detected Normal Not Detected [facility] Comment on above: Performed By: #### R ESCVID #### [facility] [address] [place], [place] [id number] Coronavirus NL63 (Not COVID-19) Not detected Normal Not Detected [facility] Comment on above: Performed By: #### R ESCVID #### [facility] [address] [place], [place] [id number] Coronavirus OC43 (Not COVID-19) Not detected Normal Not Detected [facility] Comment on above: Performed By: #### R ESCVID #### [facility] [address] [place] [address] Human Metapneumovirus Not detected Normal Not Detected [facility] Comment on above: Performed By: #### R ESCVID #### [facility] [address] [place] [address] Influenza A H1-2009 Detected Abnormal Not Detected [facility] Comment on above: Performed By: #### R ESCVID #### [facility] [address] [place] [address] Influenza B Not detected Normal Not Detected [facility] Comment on above: Performed By: #### R ESCVID #### [facility] [address] [place], [place] [id number] Mycoplasma pneumoniae Not detected Normal Not Detected [facility] Comment on above: Performed By: #### R ESCVID #### [facility] [address] [place] [address] Parainfluenza 1 Not detected Normal Not Detected [facility] Comment on above: Performed By: #### R ESCVID #### [facility] [address] [place], [place] [id number] Parainfluenza 2 Not detected Normal Not Detected [facility] Comment on above: Performed By: #### R ESCVID #### [facility] [address] [place] [address] Parainfluenza 3 Not detected Normal Not Detected [facility] Comment on above: Performed By: #### R ESCVID #### [facility] [address] [place] [address] Parainfluenza 4 Not detected Normal Not Detected [facility] Comment on above: Performed By: #### R ESCVID #### [place] [address] Respiratory Syncytial Virus Not detected Normal Not Detected [facility] Comment on above: Performed By: #### R ESCVID #### [place] [address] Rhinovirus/Enterovirus Not detected Normal Not Detected [facility] Comment on above: Performed By: #### R ESCVID #### [place] [address] SARS-CoV-2 (COVID-19) RNA VIVIANE+probe Ql (Unsp spec) Not detected Normal Not Detected [facility] Comment on above: Result Comment: This assay has been validated in the [facility] for use with nasopharyngeal specimens in [facility]. If a non-validated specimen or test collection [...] authorities. Performed By: #### R ESCVID #### [address] [address] .Auto Diffon 10-09-2024 Basophil, Absolute 0.0 10 3/mcL Normal 0.0-0.2 [facility] Comment on above: Performed By: #### B MP, CBC, ADIFF, GFR, ANEU, MG #### [address] [address] Basophils/100 WBC (Bld) 1.1 % Normal 0.0-2.5 [facility] Comment on above: Performed By: #### B MP, CBC, ADIFF, GFR, ANEU, MG #### [address] [address] Eosinophil, Absolute 0.0 10 3/mcL Normal 0.0-0.7 [facility] Comment on above: Performed By: #### B MP, CBC, ADIFF, GFR, ANEU, MG #### [address] [address] Eosinophils/100 WBC (Bld) 0.1 % Normal 0.0-7.0 [facility] Comment on above: Performed By: #### B MP, CBC, ADIFF, GFR, ANEU, MG #### [address] [address] Lymphocyte, Absolute 0.5 10 3/mcL Low 0.9-4.3 [facility] Comment on above: Performed By: #### B MP, CBC, ADIFF, GFR, ANEU, MG #### [address] [address] Lymphocytes/100 WBC (Bld) 12.0 % Low 20.0-40.0 [facility] Comment on above: Performed By: #### B MP, CBC, ADIFF, GFR, ANEU, MG #### [address] [address] Monocyte, Absolute 0.4 10 3/mcL Normal 0.1-1.4 [facility] Comment on above: Performed By: #### B MP, CBC, ADIFF, GFR, ANEU, MG #### [address] [address] Monocytes/100 WBC (Bld) 11.3 % Normal 2.0-13.0 [facility] Comment on above: Performed By: #### B MP, CBC, ADIFF, GFR, ANEU, MG #### [address] [address] Neutrophils/100 WBC (Bld) 75.5 % High 50.0-75.0 [facility] Comment on above: Performed By: #### B MP, CBC, ADIFF, GFR, ANEU, MG #### [address] [address] .GFRon 10-09-2024 Estimated Glomerular Filtration Rate 105 ml/min/1.73sqm Normal [facility] Comment on above: Result Comment: Stages [...] MP, CBC, ADIFF, GFR, ANEU, MG #### [address] [address] .NEUABSon 10-09-2024 Neutrophil, Absolute 3.0 10 3/mcL Normal 2.3-8.1 [facility] Comment on above: Performed By: #### B MP, CBC, ADIFF, GFR, ANEU, MG #### [address] [address] BMPon 10-09-2024 BUN/Creatinine Ratio 8 ratio Normal 7-27 [facility] Comment on above: Performed By: #### B MP, CBC, ADIFF, GFR, ANEU, MG #### [address] [address] Calcium [Mass/Vol] 8.1 mg/dL Low 8.4-10.2 [facility] Comment on above: Performed By: #### B MP, CBC, ADIFF, GFR, ANEU, MG #### [address] [address] Chloride [Moles/Vol] 99 mmol/L Normal 98-107 [facility] Comment on above: Performed By: #### B MP, CBC, ADIFF, GFR, ANEU, MG #### [address] [address] CO2 [Moles/Vol] 26 mmol/L Normal 23-31 [facility] Comment on above: Performed By: #### B MP, CBC, ADIFF, GFR, ANEU, MG #### [address] [address] Creatinine [Mass/Vol] 0.65 mg/dL Low 0.70-1.30 [facility] Comment on above: Result Comment: Test ing performed on Siemens Dimension EXL analyzer using a modified kinetic Tri technique. Performed By: #### B MP, CBC, ADIFF, GFR, ANEU, MG #### [address] [address] Electrolyte Balance 9.0 mEq/L Normal 4.0-15.0 [facility] Comment on above: Performed By: #### B MP, CBC, ADIFF, GFR, ANEU, MG #### [address] [address] Glucose [Mass/Vol] 103 mg/dL Normal 80-115 [facility] Comment on above: Performed By: #### B MP, CBC, ADIFF, GFR, ANEU, MG #### [place] [address] Potassium [Moles/Vol] 3.0 mmol/L Low 3.5-5.1 [facility] Comment on above: Performed By: #### B MP, CBC, ADIFF, GFR, ANEU, MG #### [place] [address] Sodium [Moles/Vol] 134 mmol/L Low 136-145 [facility] Comment on above: Performed By: #### B MP, CBC, ADIFF, GFR, ANEU, MG #### [place] [address] Urea nitrogen [Mass/Vol] 5 mg/dL Low 7-18 [facility] Comment on above: Performed By: #### B MP, CBC, ADIFF, GFR, ANEU, MG #### [address] [address] CBCon 10-09-2024 Erythrocyte distribution width (RBC) [Ratio] 14.6 % Normal 11.5-15.5 [facility] Comment on above: Performed By: #### B MP, CBC, ADIFF, GFR, ANEU, MG #### [place] [address] Hematocrit (Bld) [Volume fraction] 24.8 % Low 40.0-52.0 [facility] Comment on above: Performed By: #### B MP, CBC, ADIFF, GFR, ANEU, MG #### [place] [id number] Hgb 9.0 G/dL Low 13.0-17.5 [facility] Comment on above: Performed By: #### B MP, CBC, ADIFF, GFR, ANEU, MG #### [address] [address] MCH (RBC) [Entitic mass] 36.7 pg High 27.0-33.0 [facility] Comment on above: Performed By: #### B MP, CBC, ADIFF, GFR, ANEU, MG #### [place] [address] MCHC 36.1 G/dL High 32.0-36.0 [facility] Comment on above: Performed By: #### B MP, CBC, ADIFF, GFR, ANEU, MG #### [place] [address] MCV (RBC) [Entitic vol] 101.7 fL High 81.0-100.0 [facility] Comment on above: Performed By: #### B MP, CBC, ADIFF, GFR, ANEU, MG #### [place] [address] Platelet 246 10 3/mcL Normal 150-450 [facility] Comment on above: Performed By: #### B MP, CBC, ADIFF, GFR, ANEU, MG #### [place] [address] Platelet mean volume (Bld) [Entitic vol] 8.9 fL Normal 6.4-10.5 [facility] Comment on above: Performed By: #### B MP, CBC, ADIFF, GFR, ANEU, MG #### [place] [address] RBC 2.44 10 6/mcL Low 4.50-6.00 [facility] Comment on above: Performed By: #### B MP, CBC, ADIFF, GFR, ANEU, MG #### [place] [address] WBC 4.0 10 3/mcL Low 4.5-10.8 [facility] Comment on above: Performed By: #### B MP, CBC, ADIFF, GFR, ANEU, MG #### [facility] [address] [place], [place] [address] LABORATORYOrdered By: SYSTEM SYSTEM on 10-09-2024 Basophils [...] 10-09-2024 Magnesium [Mass/Vol] 1.6 mg/dL Low 1.8-2.4 [facility] Comment on above: Performed By: #### B MP, CBC, ADIFF, GFR, ANEU, MG #### [address] [address] .Auto Diffon 10-08-2024 Basophil, Absolute 0.1 10 3/mcL Normal 0.0-0.2 [facility] Comment on above: Performed By: #### B MP, CBC, ADIFF, GFR, ANEU, MG #### [address] [address] Basophils/100 WBC (Bld) 1.4 % Normal 0.0-2.5 [facility] Comment on above: Performed By: #### B MP, CBC, ADIFF, GFR, ANEU, MG #### [address] [address] Eosinophil, Absolute 0.0 10 3/mcL Normal 0.0-0.7 [facility] Comment on above: Performed By: #### B MP, CBC, ADIFF, GFR, ANEU, MG #### [address] [address] Eosinophils/100 WBC (Bld) 0.1 % Normal 0.0-7.0 [facility] Comment on above: Performed By: #### B MP, CBC, ADIFF, GFR, ANEU, MG #### [address] [address] Lymphocyte, Absolute 0.4 10 3/mcL Low 0.9-4.3 [facility] Comment on above: Performed By: #### B MP, CBC, ADIFF, GFR, ANEU, MG #### [address] [address] Lymphocytes/100 WBC (Bld) 8.2 % Low 20.0-40.0 [facility] Comment on above: Performed By: #### B MP, CBC, ADIFF, GFR, ANEU, MG #### [address] [address] Monocyte, Absolute 0.6 10 3/mcL Normal 0.1-1.4 [facility] Comment on above: Performed By: #### B MP, CBC, ADIFF, GFR, ANEU, MG #### [address] [address] Monocytes/100 WBC (Bld) 12.1 % Normal 2.0-13.0 [facility] Comment on above: Performed By: #### B MP, CBC, ADIFF, GFR, ANEU, MG #### [address] [address] Neutrophils/100 WBC (Bld) 78.2 % High 50.0-75.0 [facility] Comment on above: Performed By: #### B MP, CBC, ADIFF, GFR, ANEU, MG #### [address] [address] .GFRon 10-08-2024 Estimated Glomerular Filtration Rate 66 ml/min/1.73sqm Normal [facility] Comment on above: Result Comment: Stages [...] MP, CBC, ADIFF, GFR, ANEU, MG #### [place] [address] .MDWon 10-08-2024 Monocyte Distribution Width 24.76 High 0.00-20.00 [facility] Comment on above: Result Comment: For adults in ED, MDW>20.0 may be associated with a higher risk of sepsis during the first 12hrs of hospital admission Performed By: #### B MP, CBC, ADIFF, GFR, ANEU, MG #### [place] [address] .NEUABSon 10-08-2024 Neutrophil, Absolute 3.8 10 3/mcL Normal 2.3-8.1 [facility] Comment on above: Performed By: #### B MP, CBC, ADIFF, GFR, ANEU, MG #### [place] [address] .Urinalysis Microscopic (AO) on 10-08-2024 UA Coarse Granular Casts 0-5 Abnormal [facility] Comment on above: Performed By: #### B MP, CBC, ADIFF, GFR, ANEU, MG #### [place] [address] UA Hyal Cast 0-5 Abnormal [facility] Comment on above: Performed By: #### B MP, CBC, ADIFF, GFR, ANEU, MG #### [place] [address] UA Mucous 3+ /hpf Normal [facility] Comment on above: Performed By: #### B MP, CBC, ADIFF, GFR, ANEU, MG #### [place] [address] UA RBC 0-5 Abnormal None Seen [facility] Comment on above: Performed By: #### B MP, CBC, ADIFF, GFR, ANEU, MG #### [place] [address] UA Squam Epithelial 0-5 Abnormal None Seen [facility] Comment on above: Performed By: #### B MP, CBC, ADIFF, GFR, ANEU, MG #### [address] [address] UA WBC 15-25 Abnormal None Seen [facility] Comment on above: Performed By: #### B MP, CBC, ADIFF, GFR, ANEU, MG #### [address] [address] ACETAon 10-08-2024 Acetaminophen [Mass/Vol] 0.0 ug/mL Low 10.0-30.0 [facility] Comment on above: Performed By: #### S AL, ACETA, ALC #### [address] [address] Linda 10-08-2024 Ethanol Level <3 Normal [facility] Comment on above: Performed By: #### U SE UA #### [address] [address] Noemí 10-08-2024 Ammonia (P) [Moles/Vol] 20 umol/L Normal 11-32 [facility] Comment on above: Performed By: #### CARA MAYNARD #### [address] [address] APTTon 10-08-2024 aPTT Coag (Bld) [Time] 35.7 s High 25.0-35.0 [facility] Comment on above: Result Comment: For Heparin anticoagulation therapy, the recommended therapeutic range is: 45.4-75.9 seconds. Patients on heparin therapy may have an extreme result. Performed By: #### B MP, CBC, ADIFF, GFR, ANEU, MG #### [address] [address] CBCon 10-08-2024 Erythrocyte distribution width (RBC) [Ratio] 14.7 % Normal 11.5-15.5 [facility] Comment on above: Performed By: #### B MP, CBC, ADIFF, GFR, ANEU, MG #### [place] [id number] Hematocrit (Bld) [Volume fraction] 29.4 % Low 40.0-52.0 [facility] Comment on above: Performed By: #### B MP, CBC, ADIFF, GFR, ANEU, MG #### [place] [address] Hgb 10.2 G/dL Low 13.0-17.5 [facility] Comment on above: Performed By: #### B MP, CBC, ADIFF, GFR, ANEU, MG #### [place] [address] MCH (RBC) [Entitic mass] 35.5 pg High 27.0-33.0 [facility] Comment on above: Performed By: #### B MP, CBC, ADIFF, GFR, ANEU, MG #### [place] [address] MCHC 34.7 G/dL Normal 32.0-36.0 [facility] Comment on above: Performed By: #### B MP, CBC, ADIFF, GFR, ANEU, MG #### [place] [id number] MCV (RBC) [Entitic vol] 102.3 fL High 81.0-100.0 [facility] Comment on above: Performed By: #### B MP, CBC, ADIFF, GFR, ANEU, MG #### [place] [id number] Platelet 138 10 3/mcL Low 150-450 [facility] Comment on above: Performed By: #### B MP, CBC, ADIFF, GFR, ANEU, MG #### [place] [address] Platelet mean volume (Bld) [Entitic vol] 9.2 fL Normal 6.4-10.5 [facility] Comment on above: Performed By: #### B MP, CBC, ADIFF, GFR, ANEU, MG #### [place] [address] RBC 2.87 10 6/mcL Low 4.50-6.00 [facility] Comment on above: Performed By: #### B MP, CBC, ADIFF, GFR, ANEU, MG #### [address] [address] WBC 4.8 10 3/mcL Normal 4.5-10.8 [facility] Comment on above: Performed By: #### B MP, CBC, ADIFF, GFR, ANEU, MG #### [address] [address] CKon 10-08-2024 CK [Catalytic activity/Vol] 46 U/L Normal 39-308 [facility] Comment on above: Performed By: #### B MP, CBC, ADIFF, GFR, ANEU, MG #### [address] [address] CMPon 10-08-2024 Albumin Level 2.8 G/dL Low 3.4-4.8 [facility] Comment on above: Performed By: #### B MP, CBC, ADIFF, GFR, ANEU, MG #### [address] [address] Albumin/Globulin [Mass ratio] 0.6 {ratio} Low 1.1-2.5 [facility] Comment on above: Performed By: #### B MP, CBC, ADIFF, GFR, ANEU, MG #### [address] [address] ALP [Catalytic activity/Vol] 155 U/L High 40-135 [facility] Comment on above: Performed By: #### B MP, CBC, ADIFF, GFR, ANEU, MG #### [address] [address] ALT [Catalytic activity/Vol] 61 U/L Normal 16-63 [facility] Comment on above: Performed By: #### B MP, CBC, ADIFF, GFR, ANEU, MG #### [address] [address] AST [Catalytic activity/Vol] 266 U/L High 10-40 [facility] Comment on above: Performed By: #### B MP, CBC, ADIFF, GFR, ANEU, MG #### [address] [address] Bili Total 4.6 mg/dL High 0.2-1.0 [facility] Comment on above: Result Comment: Use of this assay is not recommended for patients undergoing treatment with eltrombopag due to the potential for falsely elevated results. Performed By: #### B MP, CBC, ADIFF, GFR, ANEU, MG #### [address] [address] BUN/Creatinine Ratio 5 ratio Low 7-27 [facility] Comment on above: Performed By: #### B MP, CBC, ADIFF, GFR, ANEU, MG #### [address] [address] Calcium [Mass/Vol] 8.9 mg/dL Normal 8.4-10.2 [facility] Comment on above: Performed By: #### B MP, CBC, ADIFF, GFR, ANEU, MG #### [address] [address] Chloride [Moles/Vol] 97 mmol/L Low 98-107 [facility] Comment on above: Performed By: #### B MP, CBC, ADIFF, GFR, ANEU, MG #### [address] [address] CO2 [Moles/Vol] 29 mmol/L Normal 23-31 [facility] Comment on above: Performed By: #### B MP, CBC, ADIFF, GFR, ANEU, MG #### [address] [address] Creatinine [Mass/Vol] 1.23 mg/dL Normal 0.70-1.30 [facility] Comment on above: Result Comment: Test ing performed on Siemens Dimension EXL analyzer using a modified kinetic Tri technique. Performed By: #### B MP, CBC, ADIFF, GFR, ANEU, MG #### [address] [place] [address] Electrolyte Balance 10.0 mEq/L Normal 4.0-15.0 [facility] Comment on above: Performed By: #### B MP, CBC, ADIFF, GFR, ANEU, MG #### [address] [address] Globulin 4.9 G/dL High 1.5-3.8 [facility] Comment on above: Performed By: #### B MP, CBC, ADIFF, GFR, ANEU, MG #### [address] [address] Glucose [Mass/Vol] 126 mg/dL High 80-115 [facility] Comment on above: Performed By: #### B MP, CBC, ADIFF, GFR, ANEU, MG #### [address] [address] Potassium [Moles/Vol] 3.2 mmol/L Low 3.5-5.1 [facility] Comment on above: Performed By: #### B MP, CBC, ADIFF, GFR, ANEU, MG #### [address] [address] Sodium [Moles/Vol] 136 mmol/L Normal 136-145 [facility] Comment on above: Performed By: #### B MP, CBC, ADIFF, GFR, ANEU, MG #### [address] [address] Total Protein 7.7 G/dL Normal 6.4-8.2 [facility] Comment on above: Performed By: #### B MP, CBC, ADIFF, GFR, ANEU, MG #### [address] [address] Urea nitrogen [Mass/Vol] 6 mg/dL Low 7-18 [facility] Comment on above: Performed By: #### B MP, CBC, ADIFF, GFR, ANEU, MG #### [address] [address] [address] HEAD OR BRAIN W/O CARMELOAS Teddy [...] PM Ordering Provider: TONG PIZARRO Normal [facility] CVFLURVon 10-08-2024 FLU A PCR Positive Abnormal Negative [facility] Comment on above: Performed By: #### R ESCVID #### [place] [address] FLU B PCR Negative Normal Negative [facility] Comment on above: Performed By: #### R ESCVID #### [place] [address] RSV PCR Negative Normal Negative [facility] Comment on above: Performed By: #### R ESCVID #### [place] [address] SARS-CoV-2 (COVID-19) RNA VIVIANE+probe Ql (Unsp spec) Negative Normal Negative [facility] Comment on above: Result Comment: Resu [...] results. Performed By: #### R ESCVID #### [place] [address] LABORATORYOrdered By: SYSTEM SYSTEM on 10-08-2024 Ammonia [...] Comment on above: Interpretive Data: Paul isbell [employer] (CHEST, 1992, 102:312S-25S) [...] ng/L Male: 0-76 ng/L Testing performed on [employer] using a homogeneous sandwich chemiluminescent immunoassay based on [employer] technology. TSH Qn 0.66 m[IU]/L Normal 0.36 [...] Detected AH Auto Viro/Sero SS B. parapertussis [id number] DNA VIVIANE+non-probe Ql (Nph) Not Detected *NA* [...] his assay has been validated in the [facility] for use with nasopharyngeal specimens in [facility]. If a non-validated specimen or test collection [...] Acid Lvl 1.6 mmol/L Normal 0.4-2.0 [facility] Comment on above: Performed By: #### R ESCVID #### [place] [address] LIPon 10-08-2024 Lipase Level 17 U/L Normal 16-77 [facility] Comment on above: Performed By: #### B MP, CBC, ADIFF, GFR, ANEU, MG #### [address] [address] MGon 10-08-2024 Magnesium [Mass/Vol] 0.8 mg/dL Critically abnormal 1.8-2.4 [facility] Comment on above: Performed By: #### B MP, CBC, ADIFF, GFR, ANEU, MG #### [address] [address] No Panel Informationon 10-08 Culture Urine No growth at 48 hours. [facility] Work Phone: Microscopic examination of blood, culture Culture has been received in lab and is no growth to date. Routine cultures are held for 5 days. [facility] Work Phone: PBNPon 10-08-2024 Natriuretic peptide B (Bld) [Mass/Vol] 946 pg/mL High 0-125 [facility] Comment on above: Result Comment: NT-p roBNP results of less than 300 pg/mL effectively rules out acute congestive heart failure with 99% negative predictive value. Performed By: #### B MP, CBC, ADIFF, GFR, ANEU, MG #### [address] [address] PROon 10-08-2024 PT Coag (PPP) [Time] 15.4 s High 9.0-14.4 [facility] Comment on above: Performed By: #### B MP, CBC, ADIFF, GFR, ANEU, MG #### [address] [address] PT International Ratio 1.3 Normal [facility] Comment on above: Result Comment: The [employer] (CHEST, 1992, 102:[id number]) recommended therapeutic range for oral anticoagulant therapy is: LOW RISK: Prophylaxis of venous thrombosis INR: 2.0-3.0 Treatment of pulmonary embolism 2.0-3.0 Prevention of systemic embolism 2.0-3.0 HIGH RISK: Mechanical prosthetic valves 2.5-3.5 Performed By: #### B MP, CBC, ADIFF, GFR, ANEU, MG #### [place] [address] SALon 10-08-2024 Salicylate Level <0.2 Low 2.8-20.0 [facility] Comment on above: Performed By: #### U AMICAO, UA #### [place] [address] TROPHSon 10-08-2024 High Sensitivity Troponin I 12 ng/L Normal 0-76 [facility] Comment on above: Result Comment: High Sensitive Troponin I Reference Ranges: Female: 0-51 ng/L Male: 0-76 ng/L Testing performed on [employer] using a homogeneous sandwich chemiluminescent immunoassay based on [employer] technology. Performed By: #### B MP, CBC, ADIFF, GFR, ANEU, MG #### [address] 10-08-2024 TSH Qn 0.66 m[IU]/L Normal 0.36-3.74 [facility] Comment on above: Performed By: #### B MP, CBC, ADIFF, GFR, ANEU, MG #### [address] 10-08-2024 Color (U) Brown Abnormal [facility] Comment on above: Performed By: #### B MP, CBC, ADIFF, GFR, ANEU, MG #### [place] [address] Glucose (U) [Mass/Vol] 100 mg/dL Abnormal Negative [facility] Comment on above: Performed By: #### B MP, CBC, ADIFF, GFR, ANEU, MG #### [place] [address] Ketones Ql (U) 15 mg/dL Abnormal Negative [facility] Comment on above: Performed By: #### B MP, CBC, ADIFF, GFR, ANEU, MG #### [address] Appear Cloudy Abnormal Clear [facility] Comment on above: Performed By: #### B MP, CBC, ADIFF, GFR, ANEU, MG #### [address] [address] UA Bili Large Abnormal Negative [facility] Comment on above: Result Comment: Sugg est correlation with serum bilirubin and clinical findings if medically necessary. Performed By: #### B MP, CBC, ADIFF, GFR, ANEU, MG #### [place] [address] UA Blood Trace Abnormal Negative [facility] Comment on above: Performed By: #### B MP, CBC, ADIFF, GFR, ANEU, MG #### [place] [address] UA Leuk Est Negative Normal Negative [facility] Comment on above: Performed By: #### B MP, CBC, ADIFF, GFR, ANEU, MG #### [place] [address] UA Nitrite Positive Abnormal Negative [facility] Comment on above: Performed By: #### B MP, CBC, ADIFF, GFR, ANEU, MG #### [place] [address] UA pH 5.5 Normal 5.0 - 8.0 [facility] Comment on above: Performed By: #### B MP, CBC, ADIFF, GFR, ANEU, MG #### [place] [address] UA Protein >=300 Abnormal Negative [facility] Comment on above: Performed By: #### B MP, CBC, ADIFF, GFR, ANEU, MG #### [place] [address] UA Spec Grav 1.025 Normal 1.015-1.02 5 [facility] Comment on above: Performed By: #### B MP, CBC, ADIFF, GFR, ANEU, MG #### [place] [address] UA Specimen Type Clean Catch Normal [facility] Comment on above: Performed By: #### B MP, CBC, ADIFF, GFR, ANEU, MG #### [place] [address] UA Urobilinogen >=8.0 Abnormal 0.2-1.0 [facility] Comment on above: Performed By: #### B MP, CBC, ADIFF, GFR, ANEU, MG #### [place] [address] UDRUGon 10-08-2024 Amphetamine (u) Negative Normal Negative [facility] Comment on above: Performed By: #### R ESCVID #### [place] [address] Barbiturate (u) Negative Normal Negative [facility] Comment on above: Performed By: #### R ESCVID #### [place] [id number] Benzodiazepine (u) Negative Normal Negative [facility] Comment on above: Performed By: #### R ESCVID #### [address] [address] Cannabinoid (u) Negative Normal Negative [facility] Comment on above: Performed By: #### R ESCVID #### [address] [address] Cocaine Ql (U) Negative Normal Negative [facility] Comment on above: Performed By: #### R ESCVID #### [address] [address] Methadone Ql (U) Negative Normal Negative [facility] Comment on above: Performed By: #### R ESCVID #### [address] [address] Opiate (u) Negative Normal Negative [facility] Comment on above: Performed By: #### R ESCVID #### [address] [address] PCP (u) Negative Normal Negative [facility] Comment on above: Performed By: #### R ESCVID #### [place] [address] Urine Drugs screened: See Below Normal [facility] Comment on above: Result Comment: This [...] ONLY. Performed By: #### R ESCVID #### [address] [address] XR CHEST 1 VIEWon 10-08-2024 XR CHEST [...] PM Ordering Provider: TONG PIZARRO Normal [facility] .Auto Diffon 08-05-2024 Basophil, Absolute 0.0 10 3/mcL Normal 0.0-0.2 [facility] Comment on above: Performed By: #### B MP, CBC, ADIFF, GFR, ANEU, MG #### [place] [address] [place], [place] [address] Basophils/100 WBC (Bld) 0.7 % Normal 0.0-2.5 [facility] Comment on above: Performed By: #### B MP, CBC, ADIFF, GFR, ANEU, MG #### [place] [address] Eosinophil, Absolute 0.0 10 3/mcL Normal 0.0-0.7 [facility] Comment on above: Performed By: #### B MP, CBC, ADIFF, GFR, ANEU, MG #### [address] [address] Eosinophils/100 WBC (Bld) 0.8 % Normal 0.0-7.0 [facility] Comment on above: Performed By: #### B MP, CBC, ADIFF, GFR, ANEU, MG #### [address] [address] Lymphocyte, Absolute 0.6 10 3/mcL Low 0.9-4.3 [facility] Comment on above: Performed By: #### B MP, CBC, ADIFF, GFR, ANEU, MG #### [address] [address] Lymphocytes/100 WBC (Bld) 30.6 % Normal 20.0-40.0 [facility] Comment on above: Performed By: #### B MP, CBC, ADIFF, GFR, ANEU, MG #### [address] [address] Monocyte, Absolute 0.2 10 3/mcL Normal 0.1-1.4 [facility] Comment on above: Performed By: #### B MP, CBC, ADIFF, GFR, ANEU, MG #### [address] [address] Monocytes/100 WBC (Bld) 12.2 % Normal 2.0-13.0 [facility] Comment on above: Performed By: #### B MP, CBC, ADIFF, GFR, ANEU, MG #### [address] [address] Neutrophils/100 WBC (Bld) 55.7 % Normal 50.0-75.0 [facility] Comment on above: Performed By: #### B MP, CBC, ADIFF, GFR, ANEU, MG #### [address] [address] .GFRon 12-20-2024 GFR 85 ml/min/1.73sqm Normal [facility] Comment on above: Result Comment: GFR [...] meters Performed By: #### R ESCVID #### [address] [address] GFR Non- 70 ml/min/1.73sqm Normal [facility] Comment on above: Result Comment: GFR [...] meters Performed By: #### R ESCVID #### [address] [address] .MDWon 08-05-2024 Monocyte Distribution Width 22.28 High 0.00-20.00 [facility] Comment on above: Result Comment: For adults in ED, MDW>20.0 may be associated with a higher risk of sepsis during the first 12hrs of hospital admission Performed By: #### B MP, CBC, ADIFF, GFR, ANEU, MG #### [address] [address] .Morphon 08-05-2024 Platelet Estimate Grt Decreased Normal [facility] Comment on above: Performed By: #### B MP, CBC, ADIFF, GFR, ANEU, MG #### [address] [address] RBC morphology finding Nom (Bld) Normal Normal [facility] Comment on above: Performed By: #### B MP, CBC, ADIFF, GFR, ANEU, MG #### [address] [address] .NEUABSon 08-05-2024 Neutrophil, Absolute 1.1 10 3/mcL Low 2.3-8.1 [facility] Comment on above: Performed By: #### B MP, CBC, ADIFF, GFR, ANEU, MG #### [place] [address] .Urinalysis Microscopic (AO) on 08-05-2024 UA RBC 0-5 Abnormal None Seen [facility] Comment on above: Performed By: #### U AMICAO, UA #### [place] [address] UA Squam Epithelial 0-5 Abnormal None Seen [facility] Comment on above: Performed By: #### U AMICAO, UA #### [place] [address] UA WBC 0-5 Abnormal None Seen [facility] Comment on above: Performed By: #### U AMICAO, UA #### [address] [address] BMPon 08-05-2024 BUN/Creatinine Ratio 7 ratio Normal 7-27 [facility] Comment on above: Performed By: #### R ESCOLIVIA #### [facility] [address] [place] [address] Calcium [Mass/Vol] 8.5 mg/dL Normal 8.4-10.2 [facility] Comment on above: Performed By: #### R BRANDON #### [address] [address] Chloride [Moles/Vol] 103 mmol/L Normal 98-107 [facility] Comment on above: Performed By: #### R ESCVID #### [address] [address] CO2 [Moles/Vol] 26 mmol/L Normal 23-31 [facility] Comment on above: Performed By: #### R ESCVID #### [address] [address] Creatinine [Mass/Vol] 1.06 mg/dL Normal 0.70-1.30 [facility] Comment on above: Result Comment: Test ing performed on Siemens Dimension EXL analyzer using a modified kinetic Tri technique. Performed By: #### R ESCVIStaci #### [address] [address] Electrolyte Balance 13.0 mEq/L Normal 4.0-15.0 [facility] Comment on above: Performed By: #### R ESCVID #### [address] [address] Glucose [Mass/Vol] 92 mg/dL Normal 80-115 [facility] Comment on above: Performed By: #### R ESCOLIVIA #### [address] [address] Potassium [Moles/Vol] 3.4 mmol/L Low 3.5-5.1 [facility] Comment on above: Performed By: #### R ESCVIStaci #### [address] [address] Sodium [Moles/Vol] 142 mmol/L Normal 136-145 [facility] Comment on above: Performed By: #### R ESCVID #### [address] [address] Urea nitrogen [Mass/Vol] 7 mg/dL Normal 7-18 [facility] Comment on above: Performed By: #### R ESCOLIVIA #### [address] [address] CBCon 08-05-2024 Erythrocyte distribution width (RBC) [Ratio] 18.1 % High 11.5-15.5 [facility] Comment on above: Performed By: #### R ESCVIStaci #### [place] [address] Hematocrit (Bld) [Volume fraction] 36.1 % Low 40.0-52.0 [facility] Comment on above: Performed By: #### R ESCVIStaci #### [place] [address] Hgb 12.3 G/dL Low 13.0-17.5 [facility] Comment on above: Performed By: #### R ESCOLIVIA #### [place] [address] MCH (RBC) [Entitic mass] 34.7 pg High 27.0-33.0 [facility] Comment on above: Performed By: #### R ESCVIStaci #### [place] [address] MCHC 33.9 G/dL Normal 32.0-36.0 [facility] Comment on above: Performed By: #### R ESCOLIVIA #### [place] [address] MCV (RBC) [Entitic vol] 102.4 fL High 81.0-100.0 [facility] Comment on above: Performed By: #### R ESCOLIVIA #### [place] [address] Platelet 52 10 3/mcL Low 150-450 [facility] Comment on above: Performed By: #### R ESCVIStaci #### [place] [address] Platelet mean volume (Bld) [Entitic vol] 8.8 fL Normal 6.4-10.5 [facility] Comment on above: Performed By: #### R ESCOLIVIA #### [place] [address] RBC 3.53 10 6/mcL Low 4.50-6.00 [facility] Comment on above: Performed By: #### R ESCVID #### [address] [address] WBC 2.0 10 3/mcL Low 4.5-10.8 [facility] Comment on above: Performed By: #### R ESCVID #### [place] [id number] [place] [address] LABORATORYOrdered By: Michael carbajal on 08-05-2024 Appearance [...] 08-05-2024 Magnesium [Mass/Vol] 1.1 mg/dL Low 1.8-2.4 [facility] Comment on above: Performed By: #### R ESCVID #### [facility] [address] [place] [address] UAon 08-05-2024 Color (U) Yellow Normal [facility] Comment on above: Performed By: #### U CARA SAEZ #### [address] [address] Glucose (U) [Mass/Vol] Negative Normal Negative [facility] Comment on above: Performed By: #### U CARA SAEZ #### [address] [address] Ketones Ql (U) Negative Normal Negative [facility] Comment on above: Performed By: #### U AMICAO, UA #### [place] [address] UA Appear Clear Normal Clear [facility] Comment on above: Performed By: #### U AMICAO, UA #### [place] [id number] UA Blood Trace Abnormal Negative [facility] Comment on above: Performed By: #### U AMICAO, UA #### [place] [address] UA Leuk Est Negative Normal Negative [facility] Comment on above: Performed By: #### U AMICAO, UA #### [place] [address] UA Nitrite Negative Normal Negative [facility] Comment on above: Performed By: #### U AMICAO, UA #### [place] [address] UA pH 6.0 Normal 5.0 - 8.0 [facility] Comment on above: Performed By: #### U AMICAO, UA #### [place] [address] UA Protein 100 mg/dL Abnormal Negative [facility] Comment on above: Performed By: #### U AMICAO, UA #### [place] [address] UA Spec Grav 1.020 Normal 1.015-1.[address] [place] [address] Comment on above: Performed By: #### U AMICAO, UA #### [address] [address] UA Specimen Type Clean Catch Normal [facility] Comment on above: Performed By: #### U AMICAO, UA #### [place] [address] UA Urobilinogen 2.0 E.U./dL Abnormal 0.2-1.0 [facility] Comment on above: Performed By: #### U AMICAO, UA #### [facility] [address] [place], [place] [address] Urobilinogen (U) [Mass/Vol] Negative Normal Negative [facility] Comment on above: Performed By: #### U CARA SAEZ #### [facility] [address] [place], [place] [address] XR CHEST 1 VIEWon 08-05-2024 XR CHEST [...] 5:21:45 PM Ordering Provider: EMILIE Meeks [facility] XR CHEST 1 VIEWon 05-26-2024 XR [...] 05/26/2024 2:51:00 AM Ordering Provider: CHARLIE Meeks [facility] .Auto Diffon 05-16-2024 Basophil, Absolute 0.0 10 3/mcL Normal 0.0-0.3 [facility] Comment on above: Performed By: #### B MP, CBC, ADIFF, ANEU, GFR #### [address] [address] Basophils/100 WBC (Bld) 0.6 % Normal 0.0-2.5 [facility] Comment on above: Performed By: #### B MP, CBC, ADIFF, ANEU, GFR #### [address] [address] Eosinophil, Absolute 0.1 10 3/mcL Normal 0.0-0.7 [facility] Comment on above: Performed By: #### B MP, CBC, ADIFF, ANEU, GFR #### [address] [address] Eosinophils/100 WBC (Bld) 2.6 % Normal 0.0-6.0 [facility] Comment on above: Performed By: #### B MP, CBC, ADIFF, ANEU, GFR #### [address] [address] Lymphocyte, Absolute 1.3 10 3/mcL Normal 0.9-4.3 [facility] Comment on above: Performed By: #### B MP, CBC, ADIFF, ANEU, GFR #### [address] [address] Lymphocytes/100 WBC (Bld) 35.4 % Normal 20.0-40.0 [facility] Comment on above: Performed By: #### B MP, CBC, ADIFF, ANEU, GFR #### [address] [address] Monocyte, Absolute 0.4 10 3/mcL Normal 0.1-1.4 [facility] Comment on above: Performed By: #### B MP, CBC, ADIFF, ANEU, GFR #### [address] [address] Monocytes/100 WBC (Bld) 11.3 % Normal 2.0-13.0 [facility] Comment on above: Performed By: #### B MP, CBC, ADIFF, ANEU, GFR #### [address] [address] Neutrophils/100 WBC (Bld) 50.1 % Normal 50.0-75.0 [facility] Comment on above: Performed By: #### B MP, CBC, ADIFF, ANEU, GFR #### [address] [address] .GFRon 05-16-2024 GFR Non- >60 Normal [facility] Comment on above: Result Comment: [...] B MP, CBC, ADIFF, ANEU, GFR #### [address] [address] GFR >60 Normal [facility] Comment on above: Result Comment: GFR [...] B MP, CBC, ADIFF, ANEU, GFR #### [address] [address] .NEUABSon 05-16-2024 Neutrophil, Absolute 1.8 10 3/mcL Low 2.3-8.1 [facility] Comment on above: Performed By: #### B MP, CBC, ADIFF, ANEU, GFR #### [address] [address] BMPon 05-16-2024 BUN/Creatinine Ratio 15.7 ratio Normal 10.0-22.0 [facility] Comment on above: Performed By: #### B MP, CBC, ADIFF, ANEU, GFR #### [place] [address] Calcium [Mass/Vol] 8.9 mg/dL Normal 8.7-10.4 [facility] Comment on above: Performed By: #### B MP, CBC, ADIFF, ANEU, GFR #### [place] [address] Chloride [Moles/Vol] 109 mmol/L Normal 98-110 [facility] Comment on above: Performed By: #### B MP, CBC, ADIFF, ANEU, GFR #### [place] [address] CO2 [Moles/Vol] 27 mmol/L Normal 22-32 [facility] Comment on above: Performed By: #### B MP, CBC, ADIFF, ANEU, GFR #### [place] [address] Creatinine [Mass/Vol] 0.89 mg/dL Normal 0.60-1.40 [facility] Comment on above: Result Comment: Test ing performed on [employer] analyzer using enzymatic creatinine methodology. Performed By: #### B MP, CBC, ADIFF, ANEU, GFR #### [place] [address] Electrolyte Balance 2.0 mEq/L Low 4.0-15.0 [facility] Comment on above: Performed By: #### B MP, CBC, ADIFF, ANEU, GFR #### [place] [address] Glucose [Mass/Vol] 108 mg/dL Normal 82-115 [facility] Comment on above: Performed By: #### B MP, CBC, ADIFF, ANEU, GFR #### [place] [id number] Potassium [Moles/Vol] 3.9 mmol/L Normal 3.5-5.0 [facility] Comment on above: Performed By: #### B MP, CBC, ADIFF, ANEU, GFR #### [place] [id number] Sodium [Moles/Vol] 138 mmol/L Normal 136-145 [facility] Comment on above: Performed By: #### B MP, CBC, ADIFF, ANEU, GFR #### [place] [id number] Urea nitrogen [Mass/Vol] 14.0 mg/dL Normal 8.0-22.0 [facility] Comment on above: Performed By: #### B MP, CBC, ADIFF, ANEU, GFR #### [address] [address] CBCon 05-16-2024 Erythrocyte distribution width (RBC) [Ratio] 14.9 % Normal 11.5-15.5 [facility] Comment on above: Performed By: #### B MP, CBC, ADIFF, ANEU, GFR #### [place] [id number] Hematocrit (Bld) [Volume fraction] 28.5 % Low 40.0-52.0 [facility] Comment on above: Performed By: #### B MP, CBC, ADIFF, ANEU, GFR #### [address] [address] Hgb 9.5 G/dL Low 13.0-17.5 [facility] Comment on above: Performed By: #### B MP, CBC, ADIFF, ANEU, GFR #### [place] [id number] MCH (RBC) [Entitic mass] 35.1 pg High 27.0-33.0 [facility] Comment on above: Performed By: #### B MP, CBC, ADIFF, ANEU, GFR #### [place] [address] MCHC 33.4 G/dL Normal 32.0-36.0 [facility] Comment on above: Performed By: #### B MP, CBC, ADIFF, ANEU, GFR #### [place] [address] MCV (RBC) [Entitic vol] 105.0 fL High 81.0-100.0 [facility] Comment on above: Performed By: #### B MP, CBC, ADIFF, ANEU, GFR #### [place] [address] Platelet 172 10 3/mcL Normal 150-450 [facility] Comment on above: Performed By: #### B MP, CBC, ADIFF, ANEU, GFR #### [place] [address] Platelet mean volume (Bld) [Entitic vol] 7.7 fL Normal 6.4-10.5 [facility] Comment on above: Performed By: #### B MP, CBC, ADIFF, ANEU, GFR #### [place] [address] RBC 2.72 10 6/mcL Low 4.50-6.00 [facility] Comment on above: Performed By: #### B MP, CBC, ADIFF, ANEU, GFR #### [place] [address] WBC 3.6 10 3/mcL Low 4.5-10.8 [facility] Comment on above: Performed By: #### B MP, CBC, ADIFF, ANEU, GFR #### [place] [address] LABORATORYOrdered By: SYSTEM SYSTEM on 05-16-2024 Basophils [...] above: Interpretive Data: T esting performed on [employer] analyzer using enzymatic creatinine methodology. Electrolyte Balance [...] (S/P/Bld) [Vol rate/Area] ml/min/1.73sqm Invalid Interpretation Code [employer] S Comment on above: Interpretive Data: [...] (S/P/Bld) [Vol rate/Area] ml/min/1.73sqm Invalid Interpretation Code [employer] S Comment on above: Interpretive Data: [...] 05/16/2024 6:34:24 AM Ordering Provider: JANET Meeks [facility] .Auto Diffon 05-15-2024 Basophil, Absolute 0.0 10 3/mcL Normal 0.0-0.2 [facility] Comment on above: Performed By: #### B MP, CBC, ADIFF, GFR, ANEU, MG #### [address] [address] Basophils/100 WBC (Bld) 0.9 % Normal 0.0-2.5 [facility] Comment on above: Performed By: #### B MP, CBC, ADIFF, GFR, ANEU, MG #### [address] [address] Eosinophil, Absolute 0.0 10 3/mcL Normal 0.0-0.7 [facility] Comment on above: Performed By: #### B MP, CBC, ADIFF, GFR, ANEU, MG #### [address] [address] Eosinophils/100 WBC (Bld) 0.3 % Normal 0.0-7.0 [facility] Comment on above: Performed By: #### B MP, CBC, ADIFF, GFR, ANEU, MG #### [address] [address] Lymphocyte, Absolute 1.1 10 3/mcL Normal 0.9-4.3 [facility] Comment on above: Performed By: #### B MP, CBC, ADIFF, GFR, ANEU, MG #### [address] [address] Lymphocytes/100 WBC (Bld) 21.3 % Normal 20.0-40.0 [facility] Comment on above: Performed By: #### B MP, CBC, ADIFF, GFR, ANEU, MG #### [address] [address] Monocyte, Absolute 0.6 10 3/mcL Normal 0.1-1.4 [facility] Comment on above: Performed By: #### B MP, CBC, ADIFF, GFR, ANEU, MG #### [address] [address] Monocytes/100 WBC (Bld) 11.1 % Normal 2.0-13.0 [facility] Comment on above: Performed By: #### B MP, CBC, ADIFF, GFR, ANEU, MG #### [address] [address] Neutrophils/100 WBC (Bld) 66.4 % Normal 50.0-75.0 [facility] Comment on above: Performed By: #### B MP, CBC, ADIFF, GFR, ANEU, MG #### [address] [address] .GFRon 05-15-2024 GFR 110 ml/min/1.73sqm Normal [facility] Comment on above: Result Comment: GFR [...] MP, CBC, ADIFF, GFR, ANEU, MG #### [address] [address] GFR Non- 91 ml/min/1.73sqm [facility] Comment on above: Result Comment: GFR [...] MP, CBC, ADIFF, GFR, ANEU, MG #### [address] [address] .MDWon 05-15-2024 Monocyte Distribution Width 21.81 High 0.00-20.00 [facility] Comment on above: Result Comment: For adults in ED, MDW>20.0 may be associated with a higher risk of sepsis during the first 12hrs of hospital admission Performed By: #### B MP, CBC, ADIFF, GFR, ANEU, MG #### [place] [address] .NEUABSon 05-15-2024 Neutrophil, Absolute 3.5 10 3/mcL Normal 2.3-8.1 [facility] Comment on above: Performed By: #### B MP, CBC, ADIFF, GFR, ANEU, MG #### [place] [address] Linda 05-15-2024 Ethanol Level <3 Normal 0-3 [facility] Comment on above: Performed By: #### B MP, CBC, ADIFF, GFR, ANEU, MG #### [place] [address] APTTon 05-15-2024 aPTT Coag (Bld) [Time] 40.3 s High 25.0-35.0 [facility] Comment on above: Result Comment: For Heparin anticoagulation therapy, the recommended therapeutic range is: 45.4-75.9 seconds. Patients on heparin therapy may have an extreme result. Performed By: #### B MP, CBC, ADIFF, GFR, ANEU, MG #### [place] [address] CBCon 05-15-2024 Erythrocyte distribution width (RBC) [Ratio] 14.8 % Normal 11.5-15.5 [facility] Comment on above: Performed By: #### B MP, CBC, ADIFF, GFR, ANEU, MG #### [place] [address] Hematocrit (Bld) [Volume fraction] 32.5 % Low 40.0-52.0 [facility] Comment on above: Performed By: #### B MP, CBC, ADIFF, GFR, ANEU, MG #### [place] [address] Hgb 10.9 G/dL Low 13.0-17.5 [facility] Comment on above: Performed By: #### B MP, CBC, ADIFF, GFR, ANEU, MG #### [address] [address] MCH (RBC) [Entitic mass] 35.2 pg High 27.0-33.0 [facility] Comment on above: Performed By: #### B MP, CBC, ADIFF, GFR, ANEU, MG #### [address] [address] MCHC 33.5 G/dL Normal 32.0-36.0 [facility] Comment on above: Performed By: #### B MP, CBC, ADIFF, GFR, ANEU, MG #### [address] [address] MCV (RBC) [Entitic vol] 105.0 fL High 81.0-100.0 [facility] Comment on above: Performed By: #### B MP, CBC, ADIFF, GFR, ANEU, MG #### [place] [phone] Platelet 193 10 3/mcL Normal 150-450 [facility] Comment on above: Performed By: #### B MP, CBC, ADIFF, GFR, ANEU, MG #### [address] [address] Platelet mean volume (Bld) [Entitic vol] 7.6 fL Normal 6.4-10.5 [facility] Comment on above: Performed By: #### B MP, CBC, ADIFF, GFR, ANEU, MG #### [place] [id number] RBC 3.10 10 6/mcL Low 4.50-6.00 [facility] Comment on above: Performed By: #### B MP, CBC, ADIFF, GFR, ANEU, MG #### [place] [phone] WBC 5.2 10 3/mcL Normal 4.5-10.8 [facility] Comment on above: Performed By: #### B MP, CBC, ADIFF, GFR, ANEU, MG #### [place] [phone] CMPon 05-15-2024 Albumin Level 3.3 G/dL Low 3.4-4.8 [facility] Comment on above: Performed By: #### B MP, CBC, ADIFF, GFR, ANEU, MG #### [address] [address] Albumin/Globulin [Mass ratio] 0.7 {ratio} Low 1.1-2.5 [facility] Comment on above: Performed By: #### B MP, CBC, ADIFF, GFR, ANEU, MG #### [address] [address] ALP [Catalytic activity/Vol] 121 U/L Normal 40-135 [facility] Comment on above: Performed By: #### B MP, CBC, ADIFF, GFR, ANEU, MG #### [address] [address] ALT [Catalytic activity/Vol] 81 U/L High 16-63 [facility] Comment on above: Performed By: #### B MP, CBC, ADIFF, GFR, ANEU, MG #### [address] [address] AST [Catalytic activity/Vol] 123 U/L High 10-40 [facility] Comment on above: Performed By: #### B MP, CBC, ADIFF, GFR, ANEU, MG #### [address] [address] Bili Total 1.0 mg/dL Normal 0.2-1.0 [facility] Comment on above: Result Comment: Use of this assay is not recommended for patients undergoing treatment with eltrombopag due to the potential for falsely elevated results. Performed By: #### B MP, CBC, ADIFF, GFR, ANEU, MG #### [address] [address] BUN/Creatinine Ratio 13 ratio Normal 7-27 [facility] Comment on above: Performed By: #### B MP, CBC, ADIFF, GFR, ANEU, MG #### [address] [address] Calcium [Mass/Vol] 9.3 mg/dL Normal 8.4-10.2 [facility] Comment on above: Performed By: #### B MP, CBC, ADIFF, GFR, ANEU, MG #### [place] [address] Chloride [Moles/Vol] 101 mmol/L Normal 98-107 [facility] Comment on above: Performed By: #### B MP, CBC, ADIFF, GFR, ANEU, MG #### [place] [address] CO2 [Moles/Vol] 27 mmol/L Normal 23-31 [facility] Comment on above: Performed By: #### B MP, CBC, ADIFF, GFR, ANEU, MG #### [place] [address] Creatinine [Mass/Vol] 0.85 mg/dL Normal 0.70-1.30 [facility] Comment on above: Result Comment: Test ing performed on [employer] Dimension EXL analyzer using a modified kinetic Tri technique. Performed By: #### B MP, CBC, ADIFF, GFR, ANEU, MG #### [place] [address] Electrolyte Balance 9.0 mEq/L Normal 4.0-15.0 [facility] Comment on above: Performed By: #### B MP, CBC, ADIFF, GFR, ANEU, MG #### [place] [address] Globulin 4.8 G/dL Normal [facility] Comment on above: Performed By: #### B MP, CBC, ADIFF, GFR, ANEU, MG #### [place] [address] Glucose [Mass/Vol] 105 mg/dL Normal 80-115 [facility] Comment on above: Performed By: #### B MP, CBC, ADIFF, GFR, ANEU, MG #### [place] [address] Potassium [Moles/Vol] 3.9 mmol/L Normal 3.5-5.1 [facility] Comment on above: Performed By: #### B MP, CBC, ADIFF, GFR, ANEU, MG #### [place] [phone] [place], [place] [address] Sodium [Moles/Vol] 137 mmol/L Normal 136-145 [facility] Comment on above: Performed By: #### B MP, CBC, ADIFF, GFR, ANEU, MG #### [address] [address] Total Protein 8.1 G/dL Normal 6.4-8.2 [facility] Comment on above: Performed By: #### B MP, CBC, ADIFF, GFR, ANEU, MG #### [place] [phone] [place], [place] [address] Urea nitrogen [Mass/Vol] 11 mg/dL Normal 7-18 [facility] Comment on above: Performed By: #### B MP, CBC, ADIFF, GFR, ANEU, MG #### [address] [address] [address] ABD/PELVIS W/ IV CONTRAST ONLYon 05-15-2024 [...] 05/15/2024 1:23:26 PM Ordering Provider: ALEXANDRA PALAFOX [facility] CT THORAX W/O CONTRASTon CT THORAX [...] 05/15/2024 1:23:26 PM Ordering Provider: ALEXANDRA PALAFOX [facility] LABORATORYOrdered By: SYSTEM SYSTEM on 05-15-2024 [...] Comment on above: Interpretive Data: Paul isbell [employer] (CHEST, 1992, 102:312S-25S) [...] 05-15-2024 Magnesium [Mass/Vol] 1.6 mg/dL Low 1.8-2.4 [facility] Comment on above: Performed By: #### B MP, CBC, ADIFF, GFR, ANEU, MG #### [address] [address] PROon 05-15-2024 PT Coag (PPP) [Time] 13.1 s Normal 9.0-14.4 [facility] Comment on above: Performed By: #### B MP, CBC, ADIFF, GFR, ANEU, MG #### [address] [address] PT International Ratio 1.1 Normal [facility] Comment on above: Result Comment: The [employer] (CHEST, 1992, 102:312S-25S) recommended therapeutic range for oral anticoagulant therapy is: LOW RISK: Prophylaxis of venous thrombosis INR: 2.0-3.0 Treatment of pulmonary embolism 2.0-3.0 Prevention of systemic embolism 2.0-3.0 HIGH RISK: Mechanical prosthetic valves 2.5-3.5 Performed By: #### B MP, CBC, ADIFF, GFR, ANEU, MG #### [address] [address] UAon 05-15-2024 Color (U) Yellow Normal [facility] Comment on above: Performed By: #### B MP, CBC, ADIFF, GFR, ANEU, MG #### [address] [address] Glucose (U) [Mass/Vol] Negative Normal Negative [facility] Comment on above: Performed By: #### B MP, CBC, ADIFF, GFR, ANEU, MG #### [address] [address] Ketones Ql (U) Negative Normal Negative [facility] Comment on above: Performed By: #### B MP, CBC, ADIFF, GFR, ANEU, MG #### [address] [address] UA Appear Clear Normal Clear [facility] Comment on above: Performed By: #### B MP, CBC, ADIFF, GFR, ANEU, MG #### [address] [address] UA Blood Negative Normal Negative [facility] Comment on above: Performed By: #### B MP, CBC, ADIFF, GFR, ANEU, MG #### [address] [address] UA Leuk Est Negative Normal Negative [facility] Comment on above: Performed By: #### B MP, CBC, ADIFF, GFR, ANEU, MG #### [place] [address] UA Nitrite Negative Normal Negative [facility] Comment on above: Performed By: #### B MP, CBC, ADIFF, GFR, ANEU, MG #### [place] [address] UA pH 7.0 Normal 5.0 - 8.0 [facility] Comment on above: Performed By: #### B MP, CBC, ADIFF, GFR, ANEU, MG #### [place] [address] UA Protein Trace Normal Negative [facility] Comment on above: Performed By: #### B MP, CBC, ADIFF, GFR, ANEU, MG #### [place] [address] UA Spec Grav 1.025 Normal 1.015-1.02 5 [facility] Comment on above: Performed By: #### B MP, CBC, ADIFF, GFR, ANEU, MG #### [place] [address] UA Specimen Type Clean Catch Normal [facility] Comment on above: Performed By: #### B MP, CBC, ADIFF, GFR, ANEU, MG #### [place] [address] UA Urobilinogen 2.0 E.U./dL Abnormal 0.2-1.0 [facility] Comment on above: Performed By: #### B MP, CBC, ADIFF, GFR, ANEU, MG #### [address] [address] Urobilinogen (U) [Mass/Vol] Negative Normal Negative [facility] Comment on above: Performed By: #### B MP, CBC, ADIFF, GFR, ANEU, MG #### [place] [address] UDRUGon 05-15-2024 Amphetamine (u) Negative Normal Negative [facility] Comment on above: Performed By: #### B MP, CBC, ADIFF, GFR, ANEU, MG #### [address] [address] Barbiturate (u) Negative Normal Negative [facility] Comment on above: Performed By: #### B MP, CBC, ADIFF, GFR, ANEU, MG #### [address] [address] Benzodiazepine (u) Negative Normal Negative [facility] Comment on above: Performed By: #### B MP, CBC, ADIFF, GFR, ANEU, MG #### [address] [address] Cannabinoid (u) Negative Normal Negative [facility] Comment on above: Performed By: #### B MP, CBC, ADIFF, GFR, ANEU, MG #### [address] [address] Cocaine Ql (U) Negative Normal Negative [facility] Comment on above: Performed By: #### B MP, CBC, ADIFF, GFR, ANEU, MG #### [address] [address] Methadone Ql (U) Negative Normal Negative [facility] Comment on above: Performed By: #### B MP, CBC, ADIFF, GFR, ANEU, MG #### [place] [address] Opiate (u) Negative Normal Negative [facility] Comment on above: Performed By: #### B MP, CBC, ADIFF, GFR, ANEU, MG #### [address] [address] PCP (u) Negative Normal Negative [facility] Comment on above: Performed By: #### B MP, CBC, ADIFF, GFR, ANEU, MG #### [place] [phone] [place], [place] [address] Urine Drugs screened: See Below Normal [facility] Comment on above: Result Comment: This [...] MP, CBC, ADIFF, GFR, ANEU, MG #### [address] [address] XR CHEST 1 VIEWon 05-15-2024 XR CHEST [...] 05/15/2024 3:44:23 PM Ordering Provider: NATHANIEL CARUSO [facility] .Auto Diffon 03-29-2024 Basophil, Absolute 0.0 10 3/mcL Normal 0.0-0.3 [facility] ([place]) Comment on above: Performed By: #### C BC, LYNNE, MDW, CMP, GFR, DIFF, ALC, TROPHS #### [address] [address] Basophils/100 WBC (Bld) 0.9 % Normal 0.0-2.5 [facility] ([place]) Comment on above: Performed By: #### C BC, MORPH, MDW, CMP, GFR, DIFF, ALC, TROPHS #### [address] [address] Eosinophil, Absolute 0.0 10 3/mcL Normal 0.0-0.7 Count includes the [facility] ([place]) Comment on above: Performed By: #### C BC, LYNNE, MDW, CMP, GFR, DIFF, ALC, TROPHS #### [address] [address] Eosinophils/100 WBC (Bld) 0.5 % Normal 0.0-6.0 [facility] ([place]) Comment on above: Performed By: #### C BC, LYNNE, MDW, CMP, GFR, DIFF, ALC, TROPHS #### [address] [address] Lymphocyte, Absolute 0.8 10 3/mcL Low 0.9-4.3 Count includes the [facility] ([place]) Comment on above: Performed By: #### C BC, LYNNE, MDW, CMP, GFR, DIFF, ALC, TROPHS #### [address] [address] Lymphocytes/100 WBC (Bld) 23.9 % Normal 20.0-40.0 [facility] ([place] Comment on above: Performed By: #### C BC, MORPH, MDW, CMP, GFR, DIFF, ALC, TROPHS #### [address] [address] Monocyte, Absolute 0.4 10 3/mcL Normal 0.1-1.4 [facility] ([place]) Comment on above: Performed By: #### C KRISTI, LYNNE, MDW, CMP, GFR, DIFF, ALC, TROPHS #### [address] [address] Monocytes/100 WBC (Bld) 11.9 % Normal 2.0-13.0 [facility] ([place] Comment on above: Performed By: #### C BC, LYNNE, MDW, CMP, GFR, DIFF, ALC, TROPHS #### [address] [address] Neutrophils/100 WBC (Bld) 62.8 % Normal 50.0-75.0 [facility] ([place] Comment on above: Performed By: #### C BC, LYNNE, MDW, CMP, GFR, DIFF, ALC, TROPHS #### [address] [address] .GFRon 03-29-2024 GFR >60 Normal [facility] ([place]) Comment on above: Result Comment: GFR Population [...] MDW, CMP, GFR, DIFF, ALC, TROPHS #### [address] [address] GFR Non- >60 Normal [facility] ([place]) Comment on above: Result Comment: GFR Population [...] MDW, CMP, GFR, DIFF, ALC, TROPHS #### [address] [address] .MDWon 03-29-2024 Monocyte Distribution Width 24.00 High 0.00-20.00 [facility] ([place] Comment on above: Result Comment: For adults in ED, MDW>20.0 may be associated with a higher risk of sepsis during the first 12hrs of hospital admission Performed By: #### C KRISTI, JOHNNIE BATISTA, CMP, GFR, DIFF, ALC, TROPHS #### [address] [address] .NEUABSon 03-29-2024 Neutrophil, Absolute 2.0 10 3/mcL Low 2.3-8.1 Count includes the [facility] ([place]) Comment on above: Performed By: #### C KRISTI, LYNNE, MDW, CMP, GFR, DIFF, ALC, TROPHS #### [address] [address] Noemí 03-29-2024 Ammonia 23 mcmol/l Normal 11-32 [facility] ([place]) Comment on above: Order Comment: hemol yzed. 03/29/2024 20:30:43 EDT Performed By: #### C KRISTI, LYNNE, W, CMP, GFR, DIFF, ALC, TROPHS #### [address] [address] CBCon 03-29-2024 Erythrocyte distribution width (RBC) [Ratio] 16.1 % High 11.5-15.5 [facility] ([place]) Comment on above: Performed By: #### C BC, LYNNE, W, CMP, GFR, DIFF, ALC, TROPHS #### [address] [address] Hematocrit (Bld) [Volume fraction] 33.5 % Low 40.0-52.0 [facility] ([place] Comment on above: Performed By: #### C BC, LYNNE, MDW, CMP, GFR, DIFF, ALC, TROPHS #### [address] [address] Hgb 11.4 G/dL Low 13.0-17.5 [facility] ([place]) Comment on above: Performed By: #### C BC, MORPH, MDW, CMP, GFR, DIFF, ALC, TROPHS #### [place] [address] MCH (RBC) [Entitic mass] 36.8 pg High 27.0-33.0 [facility] ([place] Comment on above: Performed By: #### C BC, LYNNE, MDW, CMP, GFR, DIFF, ALC, TROPHS #### [place] [address] MCHC 34.2 G/dL Normal 32.0-36.0 [facility] ([place] Comment on above: Performed By: #### C BC, LYNNE, MDW, CMP, GFR, DIFF, ALC, TROPHS #### [address] [address] MCV (RBC) [Entitic vol] 107.7 fL High 81.0-100.0 [facility] ([place] Comment on above: Performed By: #### C BC, MORPH, MDW, CMP, GFR, DIFF, ALC, TROPHS #### [address] [address] Platelet 119 10 3/mcL Low 150-450 [facility] ([place]) Comment on above: Performed By: #### C BC, MORPH, MDW, CMP, GFR, DIFF, ALC, TROPHS #### [address] [address] Platelet mean volume (Bld) [Entitic vol] 8.9 fL Normal 6.4-10.5 [facility] ([place]) Comment on above: Performed By: #### C KRISTI, LYNNE, JOHNNIE, CMP, GFR, DIFF, ALC, TROPHS #### [address] [address] RBC 3.11 10 6/mcL Low 4.50-6.00 [facility] ([place] Comment on above: Performed By: #### C KRISTI, LYNNE, W, CMP, GFR, DIFF, ALC, TROPHS #### [address] [address] WBC 3.1 10 3/mcL Low 4.5-10.8 [facility] ([place]) Comment on above: Performed By: #### C KRISTI, LYNNE, JOHNNIE, CMP, GFR, DIFF, ALC, TROPHS #### [address] [address] CKon 03-29-2024 CK [Catalytic activity/Vol] 42 U/L Normal 7-185 [facility] ([place]) Comment on above: Result Comment: Spec imen slightly hemolyzed. Performed By: #### C KRISTI, LYNNE, JOHNNIE, CMP, GFR, DIFF, ALC, TROPHS #### [address] [address] CMPon 03-29-2024 Albumin Level 3.2 G/dL Normal 3.2-4.8 [facility] ([place]) Comment on above: Performed By: #### C KRISTI, JOHNNIE BATISTA, CMP, GFR, DIFF, ALC, TROPHS #### [address] [address] Albumin/Globulin [Mass ratio] 0.7 {ratio} Low 0.9-1.6 [facility] ([place] Comment on above: Performed By: #### C KRISTI, LYNNE, JOHNNIE, CMP, GFR, DIFF, ALC, TROPHS #### [address] [address] ALP [Catalytic activity/Vol] 129 U/L High 38-126 [facility] ([place] Comment on above: Performed By: #### C BC, MORPH, MDW, CMP, GFR, DIFF, ALC, TROPHS #### [address] [address] ALT [Catalytic activity/Vol] 79 U/L High 12-55 [facility] ([place] Comment on above: Performed By: #### C BC, MORPH, MDW, CMP, GFR, DIFF, ALC, TROPHS #### [address] [address] AST [Catalytic activity/Vol] 159 U/L High 8-34 [facility] ([place] Comment on above: Performed By: #### C BC, MORPH, MDW, CMP, GFR, DIFF, ALC, TROPHS #### [address] [address] Bili Total 1.50 mg/dL High 0.20-1.20 [facility] ([place]) Comment on above: Result Comment: Use of this assay is not recommended for patients undergoing treatment with eltrombopag due to the potential for falsely elevated results. Performed By: #### C BC, MORPH, MDW, CMP, GFR, DIFF, ALC, TROPHS #### [address] [address] BUN/Creatinine Ratio 19.6 ratio Normal 10.0-22.0 [facility] ([place]) Comment on above: Performed By: #### C BC, MORPH, MDW, CMP, GFR, DIFF, ALC, TROPHS #### [address] [address] Calcium [Mass/Vol] 9.3 mg/dL Normal 8.7-10.4 [facility] ([place]) Comment on above: Performed By: #### C BC, MORPH, MDW, CMP, GFR, DIFF, ALC, TROPHS #### [address] [address] Chloride [Moles/Vol] 105 mmol/L Normal 98-110 [facility] ([place]) Comment on above: Performed By: #### C BC, MORPH, MDW, CMP, GFR, DIFF, ALC, TROPHS #### [address] [address] CO2 [Moles/Vol] 27 mmol/L Normal 22-32 [facility] ([place] Comment on above: Performed By: #### C KRISTI, LYNNE, W, CMP, GFR, DIFF, ALC, TROPHS #### [address] [address] Creatinine [Mass/Vol] 0.51 mg/dL Low 0.60-1.40 [facility] ([place]) Comment on above: Performed By: #### C BC, LYNNE, MDW, CMP, GFR, DIFF, ALC, TROPHS #### [address] [address] Electrolyte Balance 6.0 mEq/L Normal 4.0-15.0 [facility] ([place]) Comment on above: Performed By: #### C BC, LYNNE, MDW, CMP, GFR, DIFF, ALC, TROPHS #### [address] [address] Globulin 4.7 G/dL High 1.5-3.8 [facility] ([place]) Comment on above: Performed By: #### C KRISTI, LYNNE, W, CMP, GFR, DIFF, ALC, TROPHS #### [address] [address] Glucose [Mass/Vol] 85 mg/dL Normal 82-115 [facility] ([place]) Comment on above: Performed By: #### C KRISTI, LYNNE, W, CMP, GFR, DIFF, ALC, TROPHS #### [address] [address] Potassium [Moles/Vol] 4.1 mmol/L Normal 3.5-5.0 [facility] ([place]) Comment on above: Result Comment: Spec imen slightly hemolyzed. Performed By: #### C BC, LYNNE, MDW, CMP, GFR, DIFF, ALC, TROPHS #### [address] [address] Sodium [Moles/Vol] 138 mmol/L Normal 136-145 [facility] ([place]) Comment on above: Performed By: #### C BC, LYNNE, MDW, CMP, GFR, DIFF, ALC, TROPHS #### [address] [address] Total Protein 7.9 G/dL Normal 5.7-8.2 [facility]) Comment on above: Result Comment: No te - New Reference Range in effect 20 Performed By: #### C BC, MORPH, MDW, CMP, GFR, DIFF, ALC, TROPHS #### [address] [address] Urea nitrogen [Mass/Vol] 10.0 mg/dL Normal 8.0-22.0 [facility]) Comment on above: Performed By: #### C BC, LYNNE, MDW, CMP, GFR, DIFF, ALC, TROPHS #### [address] [address] CVFLURVon 03-29-2024 FLU A PCR Negative Normal Negative [facility]) Comment on above: Result Comment: [place] [id number] Performed By: #### C KRISTI, LYNNE, MDW, CMP, GFR, DIFF, ALC, TROPHS #### [address] [address] FLU B PCR Negative Normal Negative [facility] ([place]) Comment on above: Result Comment: Note s [id number] Performed By: #### C BC, LYNNE, MDW, CMP, GFR, DIFF, ALC, TROPHS #### [address] [address] RSV PCR Negative Normal Negative [facility]) Comment on above: Result Comment: [place] [id number] Performed By: #### C BC, LYNNE, MDW, CMP, GFR, DIFF, ALC, TROPHS #### [address] [address] SARS-CoV-2 (COVID-19) RNA VIVIANE+probe Ql (Unsp spec) Negative Normal Negative [facility]) Comment on above: Result Comment: [place] [id number] This test has been authorized by FDA [...] MDW, CMP, GFR, DIFF, ALC, TROPHS #### [place] [id number] DRUGSon 03-29-2024 Acetaminophen [Mass/Vol] 5.5 ug/mL Low 10.0-20.0 [facility] ([place] Comment on above: Performed By: #### C LYNNE BERRY MDW, CMP, GFR, DIFF, ALC, TROPHS #### [address] [address] Ethanol Level <10.0 Normal [facility] ([place]) Comment on above: Performed By: #### C LYNNE BERRY MDW, CMP, GFR, DIFF, ALC, TROPHS #### [address] [address] Salicylate Lvl (ds) <3.0 Low 10.0-25.0 [facility] ([place]) Comment on above: Performed By: #### C LYNNE BERRY MDW, CMP, GFR, DIFF, ALC, TROPHS #### [address] [address] Serum Drugs screened: See Below Normal [facility] ([place]) Comment on above: Result Comment: This drug screen is a presumptive screening only. No confirmation will be performed unless requested. Drugs included in the ER serum drug screen are: Threshold Ethanol 10.0 mg/dL Salicylate 2.0 mg/dl Acetaminophen 2.0 mcg/mL Testing has been performed FOR MEDICAL PURPOSES ONLY. Performed By: #### C BC, MORPH, MDW, CMP, GFR, DIFF, ALC, TROPHS #### [place] [address] [address] DRUGUon 03-29-2024 Amphetamine (u) Negative Normal Negative [facility] ([place]) Comment on above: Performed By: #### Staci RUGU #### [address] [address] Barbiturate (u) Negative Normal Negative [facility] ([place]) Comment on above: Performed By: #### Staci RUGU #### [address] [address] Benzodiazepine (u) Negative Normal Negative [facility] ([place]) Comment on above: Performed By: #### Staci RUGU #### [address] [address] Cannabinoid (u) Negative Normal Negative [facility] ([place]) Comment on above: Performed By: #### Staci RUGU #### [address] [address] Cocaine Ql (U) Negative Normal Negative [facility] ([place]) Comment on above: Performed By: #### Staci RUGU #### [address] [address] Fentanyl (u) Negative Normal Negative [facility] ([place]) Comment on above: Result Comment: Test ing has been performed FOR MEDICAL PURPOSES ONLY. Performed By: #### Staci RUGU #### [address] [address] Methadone Ql (U) Negative Normal Negative [facility] ([place]) Comment on above: Performed By: #### Staci RUGU #### [address] [address] Opiate (u) Negative Normal Negative [facility] ([place]) Comment on above: Performed By: #### Staci RUGU #### [facility] [address] [place] [address] Oxycodone (u) Negative Normal Negative [facility] ([place] Comment on above: Result Comment: Test ing has been performed FOR MEDICAL PURPOSES ONLY. Performed By: #### D RUGU #### [address] [address] PCP (u) Negative Normal Negative [facility] ([place] Comment on above: Performed By: #### D RUGU #### [address] [address] Propoxyphene (u) Negative Normal Negative [facility] ([place]) Comment on above: Performed By: #### D RUGU #### [address] [address] U pH Drug Scrn 6.0 Normal 5.0-8.0 [facility] ([place] Comment on above: Performed By: #### D RUGU #### [place] [address] Urine Drugs screened: See Below Normal [facility] ([place] Comment on above: Result Comment: This drug [...] ONLY. Performed By: #### D RUGU #### [place] [address] LABORATORYOrdered By: Roslyn [place] on 03-29-2024 Appearance (U) Clear (03/29/24 8:58 PM) [facility] Work Phone: Bilirubin Urine Dipstick 3+ Large (Abnormal) (03/29/24 8:58 PM) [facility] Work Phone: Blood Urine Dipstick Negative (03/29/24 8:58 PM) [facility] Work Phone: Glucose Urine Dipstick Negative (03/29/24 8:58 PM) [facility] Work Phone: Ketones Urine Dipstick Trace (Abnormal) (03/29/24 8:58 PM) [facility] Work Phone: Leukocytes Urine Dipstick Negative (03/29/24 8:58 PM) [facility] Work Phone: Nitrite Urine Dipstick Negative (03/29/24 8:58 PM) [facility] Work Phone: pH Urine Dipstick 6.5 (03/29/24 8:58 PM) [facility] Work Phone: Protein Urine Dipstick 1+ (30mg/dl) (Abn ormal) (03/29/24 8:58 PM) [facility] Work Phone: Specific [place] Urine Dipstick 1.015 (03/29/24 8:58 PM) [facility] Work Phone: Urine Color Urine Dipstick Scarlet (Abnormal) (03/29/24 8:58 PM) [facility] Work Phone: Urobilinogen Urine Dipstick 4 mg/dl (Abnormal) (03/29/24 8:58 PM) [facility] Work Phone: LABORATORYOrdered By: George Bhatt [...] ng/L Male: 0-54 ng/L Testing performed on Orlumet analyzer using direct chemiluminescent technology. Urea nitrogen [...] Comment on above: Result Comment: [place] [id number] FLUBV RNA VIVIANE+probe Ql (Resp) Negative 14 (03/29/24 7:21 PM) Normal Negative AH Auto Viro/Sero SS Comment on above: Result Comment: Note s [id number] RSV PCR Negative 15 (03/29/24 7:21 PM) Normal Negative AH Auto Viro/Sero SS Comment on above: Result Comment: Note s [id number] SARS-CoV-2 (COVID-19) RNA VIVIANE+probe Ql (Resp) Negative 11, 12 (03/29/24 7:21 PM) Normal Negative AH Auto Viro/Sero SS Comment on above: Result Comment: Note s [id number] Interpretive Data: T his test has been [...] influenza vaccines may cause inaccurate positive results. [facility] High Sensitivity Troponin I 6 ng/L Normal 0-54 [facility]) Comment on above: Result Comment: High Sensitive Troponin I Reference Ranges: Female: 0-34 ng/L Male: 0-54 ng/L Testing performed on Orlumet analyzer using direct chemiluminescent technology. Performed By: #### C BC, MORPH, MDW, CMP, GFR, DIFF, ALC, TROPHS #### [place] [address] XR SHOULDER MINIMUM 2 VIEWS RIGHTon 02-14-2024 [...] Ordering Provider: JASMINY REFERRING Normal [facility]) Absolute lymphocyte countOrd ered By: Papo Rodriguez on 12-25-2023 Lymphocytes Auto (Unsp spec) [#/Vol] 0.77 10*3/uL 0.83-4.51 [facility] Automated lymphocyte count a s percentage of total leukocytesOrdered By: Papo Rodriguez on 12-25-2023 Lymphocytes/100 WBC Auto (Unsp spec) 25.0 % 19-41 [facility] Basophil percentageOrdered B y: Papo Rodriguez on 12-25-2023 Basophils/100 WBC (Bld) 0.6 % 0-1 [facility] Bilirubin [Mass/Vol] 1.80 mg/dL 0.20-1.00 [facility] Comment on above: For patients on eltr ombopag therapy, use of Dimension [place] TBIL is not recommended. Chloride [Moles/Vol] 104 mmol/L 98-107 [facility] Eosinophils/100 WBC (Bld) 1.6 % 0-5 [facility] Glucose [Mass/Vol] 84 mg/dL 74-106 [facility] Hemoglobin (Bld) [Mass/Vol] 9.0 g/dL 13.0-16.5 [facility] Monocytes/100 WBC (Bld) 14.0 % 0-10 [facility] Neutrophils (Bld) [#/Vol] 1.8 10*3/uL 2.0-7.7 [facility] Neutrophils/100 WBC (Bld) 57.5 % 47-70 [facility] Potassium [Moles/Vol] 3.6 mmol/L 3.5-5.1 [facility] Protein [Mass/Vol] 6.6 g/dL 6.4-8.2 [facility] Sodium [Moles/Vol] 134 mmol/L 136-145 [facility] WBC (Bld) [#/Vol] 3.1 10*3/uL 4.4-11.0 [facility] Determination of erythrocyte mean corpuscular volume (MCV)Ordered By: Papo Rodriguez on 12-25-2023 MCV (RBC) [Entitic vol] 102.3 fL 80-94 [facility] Erythrocyte distribution wid th ratioOrdered By: Papo Rodriguez on 12-25-2023 Erythrocyte distribution width (RBC) [Ratio] 15.9 % 11.6-14.6 [facility] Erythrocyte distribution wid th standard deviationOrdered By: Papo Rodriguez on 12-25-2023 Erythrocyte distribution width (RBC) [Entitic vol] 59.7 fL 35.1-43.9 [facility] Hematocrit Auto (Bld) [Volum e fraction]Ordered By: Papo Rodriguez on 12-25-2023 Hematocrit (Bld) [Volume fraction] 26.9 % 40-54 [facility] Immature granulocytes/100 WB C Auto (Bld)Ordered By: Papo Rodriguez on 12-25-2023 Immature granulocytes/100 WBC (Bld) 1.300 % 0.0-0.9 [facility] Comment on above: IG% - Immature Granu locytes (promyelocytes, myelocytes and metamyelocytes) > 1% indicates that a LEFT SHIFT is Present. Laboratory - Chemistry and C hemistry - challengeOrdered By: Papo Rodriguez on 12-25-2023 Albumin/Globulin [Mass ratio] 0.6 {ratio} 0.9-2.4 [facility] ALP [Catalytic activity/Vol] 222 U/L 45-117 [facility] ALT [Catalytic activity/Vol] 124 U/L 16-61 [facility] CO2 [Moles/Vol] 25.0 mmol/L 21.0-32.0 [facility] Globulin (S) [Mass/Vol] 4.2 g/dL 2.2-4.2 [facility] Urea nitrogen/Creatinine [Mass ratio] 17.8 mg/mg 10-20 [facility] Laboratory - Hematology and Cell countsOrdered By: Papo Rodriguez on 12-25-2023 MCH (RBC) [Entitic mass] 34.2 pg 27.0-32.0 [facility] MCHC (RBC) [Mass/Vol] 33.5 g/dL 32-36 [facility] Nucleated RBC/100 WBC (Bld) [Ratio] 0 % 0-5 [facility] Platelet mean volume (Bld) [Entitic vol] 11.2 fL 6.2-12.0 [facility] Platelets (Bld) [#/Vol] 173 10*3/uL 150-450 [facility] No Panel InformationOrdered By: Papo Rodriguez on 12-25-2023 Estimated Creatinine Clearance Calc 170.90 ml/min [facility] Estimated GFR (MDRD) Amer 213 mL/min >60 [facility] Comment on above: GFR Calc Estimated GFR (MDRD) Non-Af Amer 176 mL/min >60 [facility] Comment on above: Non- GFR Calc RBC Auto (Bld) [#/Vol]Ordere d By: Papo Rodriguez on 12-25-2023 RBC (Bld) [#/Vol] 2.63 10*6/uL 4.6-6.2 [facility] Serum or plasma calcium josé miguel urement (mass/volume)Ordered By: Papo Rodriguez on 12-25-2023 Calcium [Mass/Vol] 8.4 mg/dL 8.5-10.1 [facility] Serum or plasma creatinine m easurement (mass/volume)Ordered By: Papo Rodriguez on 12-25-2023 Creatinine [Mass/Vol] 0.50 mg/dL 0.70-1.30 [facility] Comment on above: The validity of the calculated GFR & GFRAA in patients over 70 years has not been determined. Clinical correlation is essential. Serum or plasma urea nitroge n measurement (mass/volume)Ordered By: Papo Rodriguez on 12-25-2023 Urea nitrogen [Mass/Vol] 9 mg/dL 7-18 [facility] Thin prep Papanicolaou smear with manual screeningOrdered By: Papo Rodriguez on 12-25-2023 Thin prep Papanicolaou smear with manual screening 2.4 g/dL 3.2-5.0 [facility] Thin prep Papanicolaou smear with manual screening 217 U/L 15-37 [facility] Thin prep Papanicolaou smear with manual screening 5 5-15 [facility] Laboratory - Microbiology an d Antimicrobial susceptibilityOrdered By: Papo Rodriguez on 12-24-2023 SARS-CoV-2 (COVID-19) RNA VIVIANE+probe Ql (Unsp spec) [facility] Basophil percentageOrdered B y: Papo Rodriguez on 12-23-2023 Basophil percentage 2.9 mg/dL 2.5-4.9 [facility] Laboratory - Chemistry and C hemistry - challengeOrdered By: Papo Rodriguez on 12-23-2023 Magnesium [Mass/Vol] 1.5 mg/dL 1.6-2.6 [facility] Serum or plasma cortisol moustapha surement (mass/volume)Ordered By: Papo Rodriguez on 12-23-2023 Cortisol [Mass/Vol] 12.20 ug/dL 3.44-22.45 [facility] Comment on above: Adult (AM) 5.27 - 22 .45 ug/dL Adult (PM) 3.44 - 16.76 ug/dLPlease note revised CORTISOL reference range effective 2019. Laboratory - Chemistry and C hemistry - challengeOrdered By: Papo Rodriguez on 12-21-2023 Transferrin [Mass/Vol] 151 mg/dL 177-329 [facility] Comment on above: Performed at: [address] Director: Gary Peña PhD, Phone: [phone] Direct bilirubinOrdered By: Janet Erazo on 12-20-2023 Bilirubin.direct [Mass/Vol] 1.58 mg/dL 0.00-0.30 [facility] Blood platelet adequacy dete ction by light microscopyOrdered By: Taylor Kaur on 12-19-2023 Platelets LM Ql (Bld) MOD DEC ADEQ [facility] Culture, urineOrdered By: Jourdan Childs on 12-19-2023 Bacteria identified Cx Nom (U) Positive [facility] Iron measurement (mass/mass) Ordered By: Janet Erazo on 12-19-2023 Iron (Unsp spec) [Mass/Mass] 32 ug/dL 65-175 [facility] Laboratory - Chemistry and C hemistry - challengeOrdered By: Taylor Kaur on 12-19-2023 Cobalamin (Vitamin B12) [Mass/Vol] 851 pg/mL 211-911 [facility] Laboratory - Chemistry and C hemistry - challengeOrdered By: Janet Erazo on 12-19-2023 Ferritin [Mass/Vol] 3219 ng/mL 26-388 [facility] Laboratory - Microbiology an d Antimicrobial susceptibilityOrdered By: Brendan Childs on 12-19-2023 Bacteria identified Cx Nom (Bld) No growth in 5 days. [facility] No Panel InformationOrdered By: Taylor Kaur on 12-19-2023 Folate 2.60 ng/mL 3.1-55.4 [facility] Streptococcus pneumoniae Antigen (M [facility] No Panel InformationOrdered By: Janet Erazo on 12-19-2023 Total Iron Binding Capacity 192 ug/dL 250-450 [facility] Red blood cell stomatocyte d etectionOrdered By: Taylor Kaur on 12-19-2023 Stomatocytes LM Ql (Bld) 1+ [facility] Serum or plasma iron saturat ion measurement (mass fraction)Ordered By: Janet Erazo on 12-19-2023 Iron saturation [Mass fraction] 16.7 % 15.0-55.0 [facility] Target cell detectionOrdered By: Taylor Kaur on 12-19-2023 Target cells LM Ql (Bld) 2+ [facility] Urine Legionella pneumophila antigen detectionOrdered By: Taylor Kaur on 12-19-2023 L. pneumophila Ag Ql (U) [facility] Whole blood hemoglobin A1c/t otal hemoglobin ratio (mass fraction)Ordered By: Taylor Kaur on 12-19-2023 HbA1c (Bld) [Mass fraction] 4.9 % 3.8-5.6 [facility] Comment on above: Normal < 5.7 % Predi abetic 5.7 - 6.4 % Diabetic >or= 6.5 % Please note range changes. Absolute lymphocyte countOrd ered By: Brendan Childs on 12-18-2023 Lymphocytes Auto (Unsp spec) [#/Vol] 0.44 10*3/uL 0.83-4.51 [facility] Automated lymphocyte count a s percentage of total leukocytesOrdered By: Brendan Childs on 12-18-2023 Lymphocytes/100 WBC Auto (Unsp spec) 9.5 % 19-41 [facility] Basophil percentageOrdered B y: Brendan Childs on 12-18-2023 Basophil percentage 0-5 SEEN /hpf 0-5 [facility] Basophils/100 WBC (Bld) 0.2 % 0-1 [facility] Bilirubin [Mass/Vol] 2.70 mg/dL 0.20-1.00 [facility] Comment on above: For patients on eltr ombopag therapy, use of Dimension [place] TBIL is not recommended. Chloride [Moles/Vol] 93 mmol/L 98-107 [facility] Eosinophils/100 WBC (Bld) 0.0 % 0-5 [facility] Glucose [Mass/Vol] 131 mg/dL 74-106 [facility] Comment on above: Fasting Glucose resu lt greater than or equal to 126 mg/dL suggests DIABETES MELLITUS per A.D.A. criteria. Hemoglobin (Bld) [Mass/Vol] 10.3 g/dL 13.0-16.5 [facility] Lactate [Moles/Vol] 1.7 mmol/L 0.4-2.0 [facility] Monocytes/100 WBC (Bld) 12.5 % 0-10 [facility] Neutrophils (Bld) [#/Vol] 3.6 10*3/uL 2.0-7.7 [facility] Neutrophils/100 WBC (Bld) 76.9 % 47-70 [facility] Potassium [Moles/Vol] 3.4 mmol/L 3.5-5.1 [facility] Protein [Mass/Vol] 7.7 g/dL 6.4-8.2 [facility] Sodium [Moles/Vol] 134 mmol/L 136-145 [facility] WBC (Bld) [#/Vol] 4.6 10*3/uL 4.4-11.0 [facility] Basophil percentageOrdered B y: Taylor White on 12-18-2023 Basophil percentage 3.0 mg/dL 2.5-4.9 [facility] Bilirubin Test strip Ql (U)O rdered By: Brendan Childs on 12-18-2023 Bilirubin Ql (U) 6 mg/dL Negative [facility] Comment on above: COLOR OF URINE MAY A FFECT DIPSTICK RESULTS. Blood manual differential co mment interpretation (narrative result)Ordered By: Brendan Childs on 12-18-2023 Manual differential comment Deo (Bld) [Interp] SEE COMMENT [facility] Comment on above: LYMPHOPENIA NOTED Blood platelet adequacy dete ction by light microscopyOrdered By: Brendan Childs on 12-18-2023 Platelets LM Ql (Bld) ADEQUATE ADEQ [facility] Determination of erythrocyte mean corpuscular volume (MCV)Ordered By: Brendan Childs on 12-18-2023 MCV (RBC) [Entitic vol] 101.6 fL 80-94 [facility] Direct bilirubinOrdered By: Brendan Childs on 12-18-2023 Bilirubin.direct [Mass/Vol] 1.85 mg/dL 0.00-0.30 [facility] Erythrocyte distribution wid th ratioOrdered By: Brendan Childs on 12-18-2023 Erythrocyte distribution width (RBC) [Ratio] 14.8 % 11.6-14.6 [facility] Erythrocyte distribution wid th standard deviationOrdered By: Brendan Childs on 12-18-2023 Erythrocyte distribution width (RBC) [Entitic vol] 55.4 fL 35.1-43.9 [facility] Hematocrit Auto (Bld) [Volum e fraction]Ordered By: Brendan Childs on 12-18-2023 Hematocrit (Bld) [Volume fraction] 30.9 % 40-54 [facility] Hyaline casts LM.LPF (Urine sed) [#/Area]Ordered By: Brendan Childs on 12-18-2023 Hyaline casts (Urine sed) [#/Area] 10 /[LPF] 0-5 [facility] Hypochromatic red blood cell detectionOrdered By: Brendan Childs on 12-18-2023 Hypochromia Ql (Bld) 1+ [facility] Immature granulocytes/100 WB C Auto (Bld)Ordered By: Brendan Childs on 12-18-2023 Immature granulocytes/100 WBC (Bld) 0.900 % 0.0-0.9 [facility] Comment on above: IG% - Immature Granu locytes (promyelocytes, myelocytes and metamyelocytes) > 1% indicates that a LEFT SHIFT is Present. Ketones Test strip Ql (U)Ord ered By: Brendan Childs on 12-18-2023 Ketones Ql (U) 150 mg/dl Negative [facility] Comment on above: CRITICAL VALUE *HCRI TICAL VALUE VERIFIED. CALLED TO [id number]/03/24 xAel Lewis.RESULTS READ BACK BY SAME . Laboratory - Chemistry and C hemistry - challengeOrdered By: Brendan Childs on 12-18-2023 ALP [Catalytic activity/Vol] 198 U/L 45-117 [facility] ALT [Catalytic activity/Vol] 93 U/L 16-61 [facility] CO2 [Moles/Vol] 21.0 mmol/L 21.0-32.0 [facility] Globulin (S) [Mass/Vol] 4.7 g/dL 2.2-4.2 [facility] Lipase [Catalytic activity/Vol] 73 U/L 13-75 [facility] Comment on above: Please note:LIPASE r evised reference range effective 22. New Lipase methodology. Expected to produce lower values than the previous assay method. NEW Reference Range: 13 - 75 U/L Urea nitrogen/Creatinine [Mass ratio] 11.9 mg/mg 10-20 [facility] Laboratory - Chemistry and C hemistry - challengeOrdered By: Taylor Kaur on 12-18-2023 Magnesium [Mass/Vol] 1.2 mg/dL 1.6-2.6 [facility] Laboratory - Drug toxicology Ordered By: Brendan Childs on 12-18-2023 Amphetamines Ql (U) Negative <1000 ng/mL [facility] Benzodiazepines Ql (U) Negative < 200 ng/mL [facility] Cannabinoids Screen Ql (U) Negative < 50 ng/mL [facility] Cocaine Ql (U) Negative < 300 ng/mL [facility] Opiates Ql (U) Negative < 300 ng/mL [facility] Laboratory - Hematology and Cell countsOrdered By: Brendan Childs on 12-18-2023 Anisocytosis Ql (Bld) 1+ [facility] MCH (RBC) [Entitic mass] 33.9 pg 27.0-32.0 [facility] MCHC (RBC) [Mass/Vol] 33.3 g/dL 32-36 [facility] Nucleated RBC/100 WBC (Bld) [Ratio] 0 % 0-5 [facility] Platelet mean volume (Bld) [Entitic vol] 11.6 fL 6.2-12.0 [facility] Laboratory - Microbiology an d Antimicrobial susceptibilityOrdered By: Brendan Childs on 12-18-2023 SARS-CoV-2 (COVID-19) RNA VIVIANE+probe Ql (Unsp spec) [facility] Macrocytes detectionOrdered By: Brendan Childs on 12-18-2023 Macrocytes Ql (Bld) 1+ [facility] Mucus LM Ql (Urine sed)Order ed By: Brendan Childs on 12-18-2023 Mucus Ql (Urine sed) 0 SEEN /hpf [facility] Nitrite Test strip Ql (U)Ord ered By: Brendan Childs on 12-18-2023 Nitrite Ql (U) Positive Negative [facility] No Panel InformationOrdered By: Brendan Childs on 12-18-2023 MDMA (Ecstasy) Screen Negative < 500 ng/mL [facility] Urine Barbiturates Screen Negative < 200 ng/mL [facility] Urine Drug Screen Comment [facility] Comment on above: CONFIRMATORY TESTING FOR [...] Urine Methadone Screen Negative < 300 ng/mL [facility] Urine RBC 0 SEEN /hpf 0-5 [facility] Estimated Creatinine Clearance Calc 84.53 ml/min [facility] Estimated GFR (MDRD) Amer 96 mL/min >60 [facility] Comment on above: GFR Calc Estimated GFR (MDRD) Non-Af Amer 79 mL/min >60 [facility] Comment on above: Non- GFR Calc Ethyl Alcohol Level 4.0 mg/dL [facility] Comment on above: The serum:whole bloo d ethanol ratio is approximately 1.14and varies slightly with hematocrit. Medical Alcohol reference interval and critical value innon-tolerant individuals; 50 - 100 Impairment 100 Intoxication 100 - 250 Severe Poisoning 250 - 400 Deep/possible fatal coma Platelet Count TNP [facility] Comment on above: Test not performedPl ease note: For this sample, a platelet estimate is provided rather than a platelet count due to platelet clumping. Other parameters associated with this sample are not affected by platelet clumping. If a more accurate platelet count is required, a redraw of the patient will be necessary.Previous reported result: 83 [id number] by: JANNETTE on 12/18/23:2318 Troponin I High Sensitivity 18 pg/mL 3.0-78.0 [facility] Comment on above: Please Note: New Theresa t Units and Gender Specific Reference Ranges. For more information see Policy Stat Procedure [place] High Sensitivity Troponin (TNIH) and attachments. Ovalocyte detectionOrdered B y: Brendan Childs on 12-18-2023 Ovalocytes LM Ql (Bld) RARE [facility] Protein Test strip Ql (U)Ord ered By: Brendan Childs on 12-18-2023 Protein Ql (U) 500 mg/dl Negative [facility] RBC Auto (Bld) [#/Vol]Ordere d By: Brendan Childs on 12-18-2023 RBC (Bld) [#/Vol] 3.04 10*6/uL 4.6-6.2 [facility] RBC morphologyOrdered By: Jourdan Childs on 12-18-2023 RBC morphology finding Nom (Bld) N CHROM NORMAL NORM C&C [facility] Serum or plasma acetone josé miguel urement (mass/volume)Ordered By: Taylor White on 12-18-2023 Acetone [Mass/Vol] SMALL NEG [facility] Serum or plasma calcium josé miguel urement (mass/volume)Ordered By: Brendan Childs on 12-18-2023 Calcium [Mass/Vol] 8.8 mg/dL 8.5-10.1 [facility] Serum or plasma creatinine m easurement (mass/volume)Ordered By: Brendan Childs on 12-18-2023 Creatinine [Mass/Vol] 1.01 mg/dL 0.70-1.30 [facility] Comment on above: The validity of the calculated GFR & GFRAA in patients over 70 years has not been determined. Clinical correlation is essential. Serum or plasma urea nitroge n measurement (mass/volume)Ordered By: Brendan Childs on 12-18-2023 Urea nitrogen [Mass/Vol] 12 mg/dL 7-18 [facility] Serum procalcitonin measurem entOrdered By: Taylor Kaur on 12-18-2023 Procalcitonin [Mass/Vol] 0.27 ng/mL 0.00-0.09 [facility] Comment on above: A procalcitonin (PCT [...] Ql (Urine sed) 0 SEEN /hpf 0-5 [facility] Thin prep Papanicolaou smear with manual screeningOrdered By: Brendan Childs on 12-18-2023 Thin prep Papanicolaou smear with manual screening 3.0 g/dL 3.2-5.0 [facility] Thin prep Papanicolaou smear with manual screening 295 U/L 15-37 [facility] Thin prep Papanicolaou smear with manual screening 20 5-15 [facility] Urine blood detectionOrdered By: Brendan Childs on 12-18-2023 RBC Ql (U) 25 /ul Negative [facility] Urine clarityOrdered By: Mateus Childs on 12-18-2023 Clarity (U) Clear Clear [facility] Urine color determinationOrd ered By: Brendan Childs on 12-18-2023 Color (U) Scarlet Yellow [facility] Urine glucose detectionOrder ed By: Brendan Childs on 12-18-2023 Glucose Ql (U) Normal mg/dl Normal [facility] Urine leukocyte esterase det ection by dipstickOrdered By: Brendan Childs on 12-18-2023 Leukocyte esterase Test strip Ql (U) 25 /ul Negative [facility] Urine pHOrdered By: Brendan so on 12-18-2023 pH (U) 6.0 [pH] 5.0 - 8.0 [facility] Urine phencyclidine (PCP) de tectionOrdered By: Brendan Childs on 12-18-2023 Phencyclidine Ql (U) Negative < 25 ng/mL [facility] Urine sediment bacteria coun t by microscopy (number/high power field)Ordered By: Brendan Childs on 12-18-2023 Bacteria LM.HPF (Urine sed) [#/Area] 0 /[HPF] None Seen [facility] Urine specific gravity measu rementOrdered By: Brendan Childs on 12-18-2023 Specific gravity (U) [Rel density] 1.020 1.002-1.03 0 [facility] Urine urobilinogen measureme ntOrdered By: Brendan Childs on 12-18-2023 Urobilinogen Ql (U) 12 mg/dl Normal [facility] .GFRon 11-01-2023 GFR 230 ml/min/1.73sqm Normal [facility] ([place]) Comment on above: Result Comment: GFR Population [...] MDW, CMP, GFR, DIFF, ALC, TROPHS #### [place] [address] GFR Non- 190 ml/min/1.73sqm Normal [facility] ([place]) Comment on above: Result Comment: GFR Population [...] MDW, CMP, GFR, DIFF, ALC, TROPHS #### [place] [phone] .MDWon 11-01-2023 Monocyte Distribution Width See Comment Normal 0.00-20.00 [facility] ([place]) Comment on above: Result Comment: The MDW result could not be reported due to a sample abnormality that prevents the MDW from being calculated. Performed By: #### C BC, MORPH, MDW, CMP, GFR, DIFF, ALC, TROPHS #### [address] [id number] .Manual Diffon 11-01-2023 Bands 4.0 % Normal 0.0-5.0 [facility] ([place]) Comment on above: Performed By: #### C BC, MORPH, MDW, CMP, GFR, DIFF, ALC, TROPHS #### [address] [address] Basophil %, Manual 2.0 % Normal 0.0-2.5 [facility] ([place]) Comment on above: Performed By: #### C BC, MORPH, MDW, CMP, GFR, DIFF, ALC, TROPHS #### [place] [id number] Basophil, Abs Manual 0.0 10 3/mcL Normal 0.0-0.2 Count includes the [facility] ([place]) Comment on above: Performed By: #### C BC, MORPH, MDW, CMP, GFR, DIFF, ALC, TROPHS #### [address] [address] Eosinophil %, Manual 2.0 % Normal 0.0-7.0 [facility] ([place]) Comment on above: Performed By: #### C BC, MORPH, MDW, CMP, GFR, DIFF, ALC, TROPHS #### [address] [address] Eosinophil, Abs Manual 0.1 10 3/mcL Normal 0.0-0.4 [facility] ([place]) Comment on above: Performed By: #### C BC, MORPH, MDW, CMP, GFR, DIFF, ALC, TROPHS #### [address] [address] Lymphocyte %, Manual 34.0 % Normal 10.0-50.0 [facility] ([place]) Comment on above: Performed By: #### C BC, MORPH, MDW, CMP, GFR, DIFF, ALC, TROPHS #### [address] [address] Lymphocyte, Abs Manual 0.8 10 3/mcL Normal 0.8-3.9 [facility] ([place]) Comment on above: Performed By: #### C BC, MORPH, MDW, CMP, GFR, DIFF, ALC, TROPHS #### [address] [address] Metamyelocyte 1.0 % Normal [facility] ([place]) Comment on above: Performed By: #### C BC, MORPH, MDW, CMP, GFR, DIFF, ALC, TROPHS #### [address] [address] Monocyte %, Manual 13.0 % Normal 1.7-13.0 [facility] ([place]) Comment on above: Performed By: #### C BC, MORPH, MDW, CMP, GFR, DIFF, ALC, TROPHS #### [address] [address] Monocyte, Abs Manual 0.3 10 3/mcL Normal 0.2-1.0 Count includes the [facility] ([place]) Comment on above: Performed By: #### C BC, MORPH, MDW, CMP, GFR, DIFF, ALC, TROPHS #### [address] [address] Neutrophil %, Manual 44.0 % Normal 37.0-80.0 [facility] ([place]) Comment on above: Performed By: #### C BC, MORPH, MDW, CMP, GFR, DIFF, ALC, TROPHS #### [address] [address] Neutrophil, Abs Manual 1.1 10 3/mcL Low 2.9-6.2 [facility] ([place]) Comment on above: Performed By: #### C BC, MORPH, MDW, CMP, GFR, DIFF, ALC, TROPHS #### [place] [phone] Nucleated RBC 0.0 /100 WBC Normal [facility] ([place]) Comment on above: Performed By: #### C BC, LYNNE, MDW, CMP, GFR, DIFF, ALC, TROPHS #### [address] [address] .Morphon 11-01-2023 Anisocytosis Ql (Bld) 1+ Normal [facility] ([place]) Comment on above: Performed By: #### C BC, LYNNE, MDW, CMP, GFR, DIFF, ALC, TROPHS #### [address] [address] Large Platelets Few Normal [facility] ([place]) Comment on above: Performed By: #### C BC, LYNNE, MDW, CMP, GFR, DIFF, ALC, TROPHS #### [address] [address] Platelet Estimate Decreased Normal [facility] ([place]) Comment on above: Performed By: #### C BC, LYNNE, MDW, CMP, GFR, DIFF, ALC, TROPHS #### [address] [address] Stomatocytes 2+ Normal [facility] ([place]) Comment on above: Performed By: #### C KRISTI, JOHNNIE BATISTA, CMP, GFR, DIFF, ALC, TROPHS #### [address] [address] Linda 11-01-2023 Ethanol Level 389 mg/dL Critically abnormal 0-3 [facility] ([place]) Comment on above: Performed By: #### C KRISTI, LYNNE, JOHNNIE, CMP, GFR, DIFF, ALC, TROPHS #### [address] [address] CBCon 11-01-2023 Erythrocyte distribution width (RBC) [Ratio] 16.4 % High 11.5-14.5 [facility] ([place]) Comment on above: Performed By: #### C KRISTI, JOHNNIE BATISTA, CMP, GFR, DIFF, ALC, TROPHS #### [address] [address] Hematocrit (Bld) [Volume fraction] 36.2 % Low 42.0-52.0 [facility] ([place]) Comment on above: Performed By: #### C KRISTI, JOHNNIE BATISTA, CMP, GFR, DIFF, ALC, TROPHS #### [address] [address] Hgb 12.2 G/dL Low 14.0-18.0 [facility] ([place]) Comment on above: Performed By: #### C KRISTI, JOHNNIE BATISTA, CMP, GFR, DIFF, ALC, TROPHS #### [address] [address] MCH (RBC) [Entitic mass] 34.9 pg High 27.0-31.2 [facility] ([place]) Comment on above: Performed By: #### C KRISTI, JOHNNIE BATISTA, CMP, GFR, DIFF, ALC, TROPHS #### [address] [address] MCHC 33.8 G/dL Normal 31.8-35.4 [facility] ([place]) Comment on above: Performed By: #### C BC, MORPH, MDW, CMP, GFR, DIFF, ALC, TROPHS #### [address] [address] MCV (RBC) [Entitic vol] 103.3 fL High 80.0-94.0 [facility] ([place]) Comment on above: Performed By: #### C BC, MORPH, MDW, CMP, GFR, DIFF, ALC, TROPHS #### [place] [address] Platelet 79 10 3/mcL Low 130-400 [facility] ([place]) Comment on above: Performed By: #### C BC, MORPH, MDW, CMP, GFR, DIFF, ALC, TROPHS #### [place] [phone] Platelet mean volume (Bld) [Entitic vol] 8.2 fL Normal 7.4-10.4 [facility] ([place]) Comment on above: Performed By: #### C BC, MORPH, MDW, CMP, GFR, DIFF, ALC, TROPHS #### [address] [address] RBC 3.50 10 6/mcL Low 4.04-6.13 [facility] ([place]) Comment on above: Performed By: #### C BC, MORPH, MDW, CMP, GFR, DIFF, ALC, TROPHS #### [place] [phone] WBC 2.4 10 3/mcL Low 4.6-10.8 [facility] ([place]) Comment on above: Performed By: #### C BC, MORPH, MDW, CMP, GFR, DIFF, ALC, TROPHS #### [place] [address] CKon 11-01-2023 CK [Catalytic activity/Vol] 122 U/L Normal 39-308 [facility] ([place]) Comment on above: Performed By: #### C K #### [place] [address] CMPon 11-01-2023 Albumin Level 3.2 G/dL Low 3.4-4.8 [facility] ([place]) Comment on above: Performed By: #### C KRISTI, LYNNE, MDW, CMP, GFR, DIFF, ALC, TROPHS #### [address] [address] Albumin/Globulin [Mass ratio] 0.8 {ratio} Low 1.1-2.5 [facility] ([place]) Comment on above: Performed By: #### C BC, LYNNE, MDW, CMP, GFR, DIFF, ALC, TROPHS #### [address] [address] ALP [Catalytic activity/Vol] 178 U/L High 40-135 [facility] ([place]) Comment on above: Performed By: #### C BC, LYNNE, MDW, CMP, GFR, DIFF, ALC, TROPHS #### [address] [address] ALT [Catalytic activity/Vol] 164 U/L High 16-63 [facility] ([place]) Comment on above: Performed By: #### C KRISTI, LYNNE, MDW, CMP, GFR, DIFF, ALC, TROPHS #### [address] [address] AST [Catalytic activity/Vol] 330 U/L High 10-40 [facility] ([place]) Comment on above: Performed By: #### C BC, LYNNE, MDW, CMP, GFR, DIFF, ALC, TROPHS #### [address] [address] Bili Total 1.0 mg/dL Normal 0.2-1.0 [facility] ([place]) Comment on above: Result Comment: Use of this assay is not recommended for patients undergoing treatment with eltrombopag due to the potential for falsely elevated results. Performed By: #### C BC, LYNNE, MDW, CMP, GFR, DIFF, ALC, TROPHS #### [address] [address] BUN/Creatinine Ratio 13 ratio Normal 7-27 [facility] ([place]) Comment on above: Performed By: #### C BC, MORPH, MDW, CMP, GFR, DIFF, ALC, TROPHS #### [address] [address] Calcium [Mass/Vol] 8.3 mg/dL Low 8.4-10.2 [facility] ([place]) Comment on above: Performed By: #### C BC, MORPH, MDW, CMP, GFR, DIFF, ALC, TROPHS #### [place] [address] Chloride [Moles/Vol] 105 mmol/L Normal 98-107 [facility] ([place]) Comment on above: Performed By: #### C BC, MORPH, MDW, CMP, GFR, DIFF, ALC, TROPHS #### [place] [address] CO2 [Moles/Vol] 27 mmol/L Normal 23-31 [facility] ([place]) Comment on above: Performed By: #### C BC, MORPH, MDW, CMP, GFR, DIFF, ALC, TROPHS #### [place] [address] Creatinine [Mass/Vol] 0.45 mg/dL Low 0.70-1.30 [facility] ([place]) Comment on above: Performed By: #### C BC, MORPH, MDW, CMP, GFR, DIFF, ALC, TROPHS #### [address] [address] Electrolyte Balance 11.0 mEq/L Normal 4.0-15.0 [facility] ([place]) Comment on above: Performed By: #### C BC, MORPH, MDW, CMP, GFR, DIFF, ALC, TROPHS #### [place] [address] Globulin 4.1 G/dL Normal [facility] ([place]) Comment on above: Performed By: #### C BC, MORPH, MDW, CMP, GFR, DIFF, ALC, TROPHS #### [place] [address] Glucose [Mass/Vol] 88 mg/dL Normal 80-115 [facility] ([place]) Comment on above: Performed By: #### C BC, MORPH, MDW, CMP, GFR, DIFF, ALC, TROPHS #### [address] [address] Potassium [Moles/Vol] 3.6 mmol/L Normal 3.5-5.1 [facility], [facility]–1983) Comment on above: Performed By: #### C BC, MORPH, MDW, CMP, GFR, DIFF, ALC, TROPHS #### [address] [address] Sodium [Moles/Vol] 143 mmol/L Normal 136-145 [facility]) Comment on above: Performed By: #### C BC, MORPH, MDW, CMP, GFR, DIFF, ALC, TROPHS #### [address] [address] Total Protein 7.3 G/dL Normal 6.4-8.2 [facility]) Comment on above: Performed By: #### C BC, MORPH, MDW, CMP, GFR, DIFF, ALC, TROPHS #### [address] [address] Urea nitrogen [Mass/Vol] 6 mg/dL Low 7-18 [facility]) Comment on above: Performed By: #### C BC, MORPH, MDW, CMP, GFR, DIFF, ALC, TROPHS #### [address] [address] [address] HEAD OR BRAIN W/O CONTRAS Ton [...] 11/01/2023 8:44:13 PM Ordering Provider: WANDY BROOKE [facility] ([place]) CT SPINE CERVICAL W/O CHARLENE [place] 11-01-2023 [...] 11/01/2023 8:34:45 PM Ordering Provider: WANDY Meeks [facility] ([place] LABORATORYOrdered By: SYSTEM SYSTEM on 11-01-2023 Albumin [...] a homogeneous sandwich chemiluminescent immunoassay based on [employer] technology. Urea nitrogen [Mass/Vol] 6 mg/dL Low 7 - 18 mg/dL AO ADM SS Urea nitrogen/Creatinine [Mass ratio] 13 ratio Normal 7 - 27 ratio AO ADM SS WBC (Bld) [#/Vol] 2.4 103/mcL Low 4.6 - 10.8 10^3/mcL AO Workflow SS TROPHSon 11-01-2023 High Sensitivity Troponin I 12 ng/L Normal 0-76 [facility] ([place]) Comment on above: Result Comment: High Sensitive Troponin I Reference Ranges: Female: 0-51 ng/L Male: 0-76 ng/L Testing performed on Dimension EXL using a homogeneous sandwich chemiluminescent immunoassay based on ZeroDesktop technology. Performed By: #### C BC, MORPH, MDW, CMP, GFR, DIFF, ALC, TROPHS #### [address] [address] XR CHEST 1 VIEWon 11-01-2023 XR CHEST [...] 11/01/2023 8:24:05 PM Ordering Provider: WANDY BROOKE [facility] ([place]) XR PELVIS 1 OR 2 VIEWSon XR [...] 11/01/2023 8:24:57 PM Ordering Provider: NATHANIEL CARUSO [facility] ([place] HEAD OR BRAIN W/O CONTRAS Ton [...] 09/17/2023 12:59:39 PM Ordering Provider: JENNIFER VILLASEÑOR [facility] ([place] SHOULDER W/O CONTRAST RIG HTon 09-16-2023 [...] 09/16/2023 2:33:00 PM Ordering Provider: JENNIFER VILLASEÑOR [facility] ([place]) .CBC Path Reviewon CBC Path Review Marked leukopenia an d moderate macrocytic anemia and thrombocytopenia noted, with absolute neutropenia and monocytopenia. Rule out liver disease. Rule out hypersplenism. Rule out nutritional deficiency. Rule out drug effect. Rule out bone marrow abnormality. Normal [facility] ([place]) Comment on above: Result Comment: Elec tronically signed by: YAN MEIER 09.08.2023 10:18 EST Performed By: #### C BC, MORPH, MDW, CMP, GFR, DIFF, ALC, TROPHS #### [address] [address] .GFRon 09-07-2023 GFR Non- 142 ml/min/1.73sqm Normal [facility] ([place]) Comment on above: Result Comment: GFR Population [...] BATISTA, CMP, GFR, DIFF, ALC, TROPHS #### [address] [address] GFR 172 ml/min/1.73sqm Normal [facility] ([place]) Comment on above: Result Comment: GFR Population [...] MDW, CMP, GFR, DIFF, ALC, TROPHS #### [address] [address] .Manual Diffon 09-07-2023 Bands 2.0 % Normal 0.0-5.0 [facility] ([place] Comment on above: Performed By: #### C BC, MORPH, MDW, CMP, GFR, DIFF, ALC, TROPHS #### [address] [address] Basophil %, Manual 0.0 % Normal 0.0-2.5 [facility] ([place]) Comment on above: Performed By: #### C BC, MORPH, MDW, CMP, GFR, DIFF, ALC, TROPHS #### [address] [address] Basophil, Abs Manual 0.0 10 3/mcL Normal 0.0-0.2 Count includes the [facility] ([place]) Comment on above: Performed By: #### C BC, MORPH, MDW, CMP, GFR, DIFF, ALC, TROPHS #### [address] [address] Eosinophil %, Manual 0.0 % Normal 0.0-7.0 [facility] ([place]) Comment on above: Performed By: #### C BC, MORPH, MDW, CMP, GFR, DIFF, ALC, TROPHS #### [address] [address] Eosinophil, Abs Manual 0.0 10 3/mcL Normal 0.0-0.4 [facility] ([place] Comment on above: Performed By: #### C BC, MORPH, MDW, CMP, GFR, DIFF, ALC, TROPHS #### [address] [address] Lymphocyte %, Manual 67.0 % High 10.0-50.0 [facility] ([place]) Comment on above: Performed By: #### C BC, MORPH, MDW, CMP, GFR, DIFF, ALC, TROPHS #### [address] [address] Lymphocyte, Abs Manual 1.3 10 3/mcL Normal 0.8-3.9 [facility] ([place]) Comment on above: Performed By: #### C BC, MORPH, MDW, CMP, GFR, DIFF, ALC, TROPHS #### [address] [address] Metamyelocyte 1.0 % Normal [facility] ([place]) Comment on above: Performed By: #### C BC, MORPH, MDW, CMP, GFR, DIFF, ALC, TROPHS #### [address] [address] Monocyte %, Manual 3.0 % Normal 1.7-13.0 [facility] ([place]) Comment on above: Performed By: #### C BC, MORPH, MDW, CMP, GFR, DIFF, ALC, TROPHS #### [address] [address] Monocyte, Abs Manual 0.1 10 3/mcL Low 0.2-1.0 Count includes the [facility] ([place]) Comment on above: Performed By: #### C BC, MORPH, MDW, CMP, GFR, DIFF, ALC, TROPHS #### [address] [address] Neutrophil %, Manual 27.0 % Low 37.0-80.0 [facility] ([place]) Comment on above: Performed By: #### C BC, MORPH, MDW, CMP, GFR, DIFF, ALC, TROPHS #### [address] [address] Neutrophil, Abs Manual 0.6 10 3/mcL Low 2.9-6.2 [facility] ([place]) Comment on above: Performed By: #### C BC, MORPH, MDW, CMP, GFR, DIFF, ALC, TROPHS #### [address] [address] Nucleated RBC 0.0 /100 WBC Normal [facility] ([place] Comment on above: Performed By: #### C BC, MORPH, MDW, CMP, GFR, DIFF, ALC, TROPHS #### [address] [address] .Morphon 09-07-2023 Anisocytosis Ql (Bld) 1+ Normal [facility] ([place]) Comment on above: Performed By: #### C BC, MORPH, MDW, CMP, GFR, DIFF, ALC, TROPHS #### [address] [address] Macrocytosis 1+ Normal [facility] ([place]) Comment on above: Performed By: #### C LYNNE BERRY MDW, CMP, GFR, DIFF, ALC, TROPHS #### [address] [address] Ovalocytes 1+ Normal [facility] ([place]) Comment on above: Performed By: #### C LYNNE BERRY MDW, CMP, GFR, DIFF, ALC, TROPHS #### [address] [address] Platelet Estimate Decreased Normal [facility] ([place]) Comment on above: Performed By: #### C LYNNE BERRY MDW, CMP, GFR, DIFF, ALC, TROPHS #### [address] [address] B12on 09-07-2023 Cobalamin (Vitamin B12) [Mass/Vol] 563 pg/mL Normal 211-911 [facility] ([place]) Comment on above: Performed By: #### C LYNNE BERRY MDW, CMP, GFR, DIFF, ALC, TROPHS #### [address] [address] CBCon 09-07-2023 Erythrocyte distribution width (RBC) [Ratio] 17.4 % High 11.5-14.5 [facility] ([place]) Comment on above: Performed By: #### C LYNNE BERRY MDW, CMP, GFR, DIFF, ALC, TROPHS #### [address] [address] Hematocrit (Bld) [Volume fraction] 34.4 % Low 42.0-52.0 [facility] ([place] Comment on above: Performed By: #### C LYNNE BERRY MDW, CMP, GFR, DIFF, ALC, TROPHS #### [address] [address] Hgb 11.7 G/dL Low 14.0-18.0 [facility] ([place]) Comment on above: Performed By: #### C BC, MORPH, MDW, CMP, GFR, DIFF, ALC, TROPHS #### [address] [address] MCH (RBC) [Entitic mass] 34.7 pg High 27.0-31.2 [facility] ([place]) Comment on above: Performed By: #### C KRISTI, LYNNE, MDW, CMP, GFR, DIFF, ALC, TROPHS #### [place] [phone] MCHC 34.1 G/dL Normal 31.8-35.4 [facility] ([place] Comment on above: Performed By: #### C KRISTI, LYNNE, MDW, CMP, GFR, DIFF, ALC, TROPHS #### [place] [phone] MCV (RBC) [Entitic vol] 101.9 fL High 80.0-94.0 [facility] ([place] Comment on above: Performed By: #### C KRISTI, LYNNE, MDW, CMP, GFR, DIFF, ALC, TROPHS #### [place] [phone] Platelet 64 10 3/mcL Low 130-400 [facility] ([place]) Comment on above: Performed By: #### C KRISTI, LYNNE, MDW, CMP, GFR, DIFF, ALC, TROPHS #### [address] [address] Platelet mean volume (Bld) [Entitic vol] 8.1 fL Normal 7.4-10.4 [facility] ([place]) Comment on above: Performed By: #### C KRISTI, LYNNE, MDW, CMP, GFR, DIFF, ALC, TROPHS #### [place] [phone] RBC 3.38 10 6/mcL Low 4.04-6.13 [facility] ([place]) Comment on above: Performed By: #### C KRISTI, LYNNE, MDW, CMP, GFR, DIFF, ALC, TROPHS #### [place] [phone] WBC 2.0 10 3/mcL Low 4.6-10.8 [facility] ([place] Comment on above: Performed By: #### C BC, MORPH, MDW, CMP, GFR, DIFF, ALC, TROPHS #### [address] [address] CMPon 09-07-2023 BUN/Creatinine Ratio 10 ratio Normal 7-27 [facility] ([place]) Comment on above: Performed By: #### C BC, MORPH, MDW, CMP, GFR, DIFF, ALC, TROPHS #### [address] [address] Calcium [Mass/Vol] 8.7 mg/dL Normal 8.4-10.2 [facility] ([place]) Comment on above: Performed By: #### C BC, MORPH, MDW, CMP, GFR, DIFF, ALC, TROPHS #### [address] [address] Chloride [Moles/Vol] 106 mmol/L Normal 98-107 [facility] ([place]) Comment on above: Performed By: #### C BC, MORPH, MDW, CMP, GFR, DIFF, ALC, TROPHS #### [address] [address] CO2 [Moles/Vol] 28 mmol/L Normal 23-31 [facility] ([place] Comment on above: Performed By: #### C BC, MORPH, MDW, CMP, GFR, DIFF, ALC, TROPHS #### [address] [address] Creatinine [Mass/Vol] 0.58 mg/dL Low 0.70-1.30 [facility] ([place] Comment on above: Performed By: #### C BC, MORPH, MDW, CMP, GFR, DIFF, ALC, TROPHS #### [address] [address] Electrolyte Balance 13.0 mEq/L Normal 4.0-15.0 [facility] ([place]) Comment on above: Performed By: #### C BC, MORPH, MDW, CMP, GFR, DIFF, ALC, TROPHS #### [address] [address] Glucose [Mass/Vol] 88 mg/dL Normal 80-115 [facility] ([place]) Comment on above: Performed By: #### C KRISTI, LYNNE, W, CMP, GFR, DIFF, ALC, TROPHS #### [address] [address] Potassium [Moles/Vol] 3.8 mmol/L Normal 3.5-5.1 [facility] ([place] Comment on above: Performed By: #### C KRISTI, LYNNE, MDW, CMP, GFR, DIFF, ALC, TROPHS #### [address] [address] Sodium [Moles/Vol] 147 mmol/L High 136-145 [facility] ([place]) Comment on above: Performed By: #### C KRISTI, LYNNE, JOHNNIE, CMP, GFR, DIFF, ALC, TROPHS #### [address] [address] Urea nitrogen [Mass/Vol] 6 mg/dL Low 7-18 [facility] ([place] Comment on above: Performed By: #### C KRISTI, JOHNNIE BATISTA, CMP, GFR, DIFF, ALC, TROPHS #### [address] [address] HFPon 09-07-2023 Bili Indirect 0.3 mg/dL Normal [facility] ([place] Comment on above: Performed By: #### C KRISTI, JOHNNIE BATISTA, CMP, GFR, DIFF, ALC, TROPHS #### [address] [address] Albumin Level 3.1 G/dL Low 3.4-4.8 [facility] ([place]) Comment on above: Performed By: #### C KRISTI, LYNNE, W, CMP, GFR, DIFF, ALC, TROPHS #### [address] [address] Albumin/Globulin [Mass ratio] 0.8 {ratio} Low 1.1-2.5 [facility] ([place] Comment on above: Performed By: #### C BC, MORPH, MDW, CMP, GFR, DIFF, ALC, TROPHS #### [address] [address] ALP [Catalytic activity/Vol] 179 U/L High 40-135 [facility] ([place]) Comment on above: Performed By: #### C BC, MORPH, MDW, CMP, GFR, DIFF, ALC, TROPHS #### [address] [address] ALT [Catalytic activity/Vol] 128 U/L High 16-63 [facility] ([place]) Comment on above: Performed By: #### C BC, LYNNE, MDW, CMP, GFR, DIFF, ALC, TROPHS #### [address] [address] AST [Catalytic activity/Vol] 261 U/L High 10-40 [facility] ([place]) Comment on above: Performed By: #### C BC, LYNNE, MDW, CMP, GFR, DIFF, ALC, TROPHS #### [address] [address] Bili Direct 0.3 mg/dL High 0.0-0.2 [facility] ([place]) Comment on above: Result Comment: Use of this assay is not recommended for patients undergoing treatment with eltrombopag due to the potential for falsely elevated results. Performed By: #### C BC, LYNNE, MDW, CMP, GFR, DIFF, ALC, TROPHS #### [place] [phone] Bili Total 0.6 mg/dL Normal 0.2-1.0 [facility] ([place] Comment on above: Result Comment: Use of this assay is not recommended for patients undergoing treatment with eltrombopag due to the potential for falsely elevated results. Performed By: #### C BC, MORPH, MDW, CMP, GFR, DIFF, ALC, TROPHS #### [address] [address] Globulin 3.9 G/dL Normal [facility] ([place] Comment on above: Performed By: #### C BC, MORPH, W, CMP, GFR, DIFF, ALC, TROPHS #### [place] [phone] [place], [place] [address] Total Protein 7.0 G/dL Normal 6.4-8.2 [facility] ([place] Comment on above: Performed By: #### C KRISTI, LYNNE, W, CMP, GFR, DIFF, ALC, TROPHS #### [facility] [address] [place], [place] [address] LABORATORYOrdered By: SYSTEM SYSTEM on 09-07-2023 25-hydroxyvitamin [...] 09-07-2023 Magnesium [Mass/Vol] 1.5 mg/dL Low 1.8-2.4 [facility] ([place]) Comment on above: Performed By: #### C BC, MORPH, MDW, CMP, GFR, DIFF, ALC, TROPHS #### [place] [phone] No Panel InformationOrdered By: SYSTEM SYSTEM on 09-07-2023 Globulin 3.9 G/dL Invalid Interpretation Code AO ADM SS VIDHon 09-07-2023 Vit. D 25-Hydroxy 16.9 ng/mL Normal [facility] ([place]) Comment on above: Result Comment: Inte rpretive Values Based on Total 25(OH) Vitamin D: Deficient <20 ng/mL Insufficient 20 - <30 ng/mL Sufficient 30-100 ng/mL Performed By: #### C BC, MORPH, MDW, CMP, GFR, DIFF, ALC, TROPHS #### [facility] [address] [place], [place] [address] XR SHOULDER MINIMUM 2 VIEWS RIGHTon 07-18-2023 [...] 07/18/2023 11:13:46 AM Ordering Provider: BRANDY Meeks [facility] ([place]R SHOULDER MINIMUM 2 VIEWS RIGHTon 07-10-2023 [...] Sign Date: 07/10/2023 7:21:59 AM Ordering Provider: [facility] ([place]) XR SHOULDER MINIMUM 2 VIEWS RIGHT ORIGINAL [...] Sign Date: 07/10/2023 7:19:13 AM Ordering Provider: [facility]) XR SHOULDER MINIMUM 2 VIEWS [...] Sign Date: 07/10/2023 6:05:42 AM Ordering Provider: [facility] ([place]) LABORATORYOrdered By: Elliott Vitale on 09-06-2021 Albumin [...] Chemistry S ORon 05-30-2019 OPERATIVE REPORT Normal [facility] [place] OR DATE OF SERVICE: PREOPERATIVE DIAGNOSIS: Left [...] loss about 20 mL. Catracho Longo MD [id number] SSI File#: [id number] Verified/Reviewed by 06/10/19 132Rae [facility] PATIENT NAME: JENNIFER YORK [address] MEDICAL REC #: [id number] [place] [address] ADMIT DATE: DISCHARGE DATE: OPERATIVE REPORT ATTENDING PHY: Catracho Longo MD [facility] SURG 05-30-2019 SURG ------- Patient: JENNIFER [...] aggregate. The tissue has ramirez cut surface. Aboriginal Education Worker Coordinator sections are submitted in cassette A1. MICROSCOPIC DESCRIPTION One Man stained slide examined. COPIES TO: No Family Physician given Catracho Longo MD Signed Verified/Reviewed by CR HADLEY MD 06/01/19 This dictation was created using voice recognition software. Phonetic and/or minor grammatical errors may exist. [facility] NAME: ROHANDARIUSZJENNIFER R Pathology [facility] Laboratory Medicine UNIT#: [id number] LOC: [facility] [place] [employer] Treating Tank Operator: Priti Szymanski M.D. ROOM/BED: [facility] : 60 AGE/SEX: 59/M ORD.Catracho Castelan MD END OF REPORT Normal [facility] [place] Vital Signs Date Time Vital Sign Value Performing Clinician Facility 02-03-2025 18:18-0400 Body temperature 97.8 [degF] Dr. Jennifer Villaseñor MD Work Phone: [facility] 02-03-2025 18:18-0400 Diastolic blood pressure 74 mm[Hg] Dr. Jennifer Villaseñor MD Work Phone: [facility] 02-03-2025 18:18-0400 Heart rate 82 /min Dr. Jennifer Villaseñor MD Work Phone: [facility] 02-03-2025 18:18-0400 Respiratory rate 16 /min Dr. Jennifer Villaseñor MD Work Phone: [facility] 02-03-2025 18:18-0400 SaO2% (BldA) [Mass fraction] 99 % Dr. Jennifer Villaseñor MD Work Phone: [facility] 02-03-2025 18:18-0400 Systolic blood pressure 138 mm[Hg] Dr. Jennifer Villaseñor MD Work Phone: [facility] 02-03-2025 11:54-0400 Body height 185.[address] Jennifer Villaseñor MD Work Phone: [facility] 10-13-2024 14:17-0500 Body temperature 98.6 [degF] CINDY KAPPER SASH ASSEMBLER-ADULT NEUROPSYCHOLOGIST [facility] 10-13-2024 14:17-0500 Diastolic Blood Pressure Non-Invasive 74 mm[Hg] CINDY KAPPER SASH ASSEMBLER-ADULT NEUROPSYCHOLOGIST [facility] 10-13-2024 14:17-0500 Heart rate 93 /min CINDY KAPPER SASH ASSEMBLER-ADULT NEUROPSYCHOLOGIST [facility] 10-13-2024 14:17-0500 Reason For Taking VItal Signs CINDY KAPPER SASH ASSEMBLER-ADULT NEUROPSYCHOLOGIST [facility] 10-13-2024 14:17-0500 Respiratory rate 16 /min CINDY KAPPER SASH ASSEMBLER-ADULT NEUROPSYCHOLOGIST [facility] 10-13-2024 14:17-0500 Systolic Blood Pressure Non-Invasive 101 mm[Hg] CINDY KAPPER SASH ASSEMBLER-ADULT NEUROPSYCHOLOGIST [facility] 10-13-2024 11:03-0500 Body temperature 98.96 [degF] CINDY KAPPER SASH ASSEMBLER-ADULT NEUROPSYCHOLOGIST [facility] 10-13-2024 11:03-0500 Diastolic Blood Pressure Non-Invasive 64 mm[Hg] CINDY KAPPER SASH ASSEMBLER-ADULT NEUROPSYCHOLOGIST [facility] 10-13-2024 11:03-0500 Heart rate 99 /min CINDY KAPPER SASH ASSEMBLER-ADULT NEUROPSYCHOLOGIST [facility] 10-13-2024 11:03-0500 Reason For Taking VItal Signs CINDY KAPPER SASH ASSEMBLER-ADULT NEUROPSYCHOLOGIST [facility] 10-13-2024 11:03-0500 Respiratory rate 16 /min CINDY DAVIONER SASH ASSEMBLER-ADULT NEUROPSYCHOLOGIST [facility] 10-13-2024 11:03-0500 Systolic Blood Pressure Non-Invasive 94 mm[Hg] CINDY RICARDOER SASH ASSEMBLER-ADULT NEUROPSYCHOLOGIST [facility] 10-13-2024 09:30-0500 Respiratory rate 16 /min CINDY KAPPER SASH ASSEMBLER-ADULT NEUROPSYCHOLOGIST [facility] 10-13-2024 06:58-0500 Body temperature 99.32 [degF] CINDY DAVIONER SASH ASSEMBLER-ADULT NEUROPSYCHOLOGIST [facility] 10-13-2024 06:58-0500 Diastolic Blood Pressure Non-Invasive 92 mm[Hg] CINDY RICARDOER SASH ASSEMBLER-ADULT NEUROPSYCHOLOGIST [facility] 10-13-2024 06:58-0500 Heart rate 92 /min CINDY DAVIONER SASH ASSEMBLER-ADULT NEUROPSYCHOLOGIST [facility] 10-13-2024 06:58-0500 Reason For Taking VItal Signs CINDY BAILEY SASH ASSEMBLER-ADULT NEUROPSYCHOLOGIST [facility] 10-13-2024 06:58-0500 Systolic Blood Pressure Non-Invasive 118 mm[Hg] CINDY RICARDOER SASH ASSEMBLER-ADULT NEUROPSYCHOLOGIST [facility] 10-13-2024 04:46-0500 Heart rate 86 /min CINDY KAPPER SASH ASSEMBLER-ADULT NEUROPSYCHOLOGIST [facility] 10-13-2024 00:11-0500 Heart rate 86 /min CINDY KAPPER SASH ASSEMBLER-ADULT NEUROPSYCHOLOGIST [facility] 10-12-2024 21:57-0500 Body height 185.4 cm CINDYBear BAILEY SASH ASSEMBLER-ADULT NEUROPSYCHOLOGIST [facility] 10-12-2024 21:57-0500 Body weight 81.1 kg CINDY BAILEY SASH ASSEMBLER-ADULT NEUROPSYCHOLOGIST [facility] 10-12-2024 21:57-0500 Body weight 23.59 kg/m2 CINDY BAILEY SASH ASSEMBLER-ADULT NEUROPSYCHOLOGIST [facility] 10-12-2024 05:19-0500 Heart rate 78 /min CINDY BAILEY SASH ASSEMBLER-ADULT NEUROPSYCHOLOGIST [facility] 10-11-2024 08:12-0500 SaO2% (BldA) [Mass fraction] 90.5 % CINDYBear BAILEY SASH ASSEMBLER-ADULT NEUROPSYCHOLOGIST [facility] 10-10-2024 06:21-0500 Body weight 81.7 kg CINDYBear BAILEY SASH ASSEMBLER-ADULT NEUROPSYCHOLOGIST [facility] 10-08-2024 17:00-0500 Mean blood pressure 85 mm[Hg] CINDY DAVIONER SASH ASSEMBLER-ADULT NEUROPSYCHOLOGIST [facility] 10-08-2024 16:30-0500 Mean blood pressure 93 mm[Hg] CINDY DAVIONER SASH ASSEMBLER-ADULT NEUROPSYCHOLOGIST [facility] 10-08-2024 16:15-0500 Mean blood pressure 89 mm[Hg] CINDYBear RICARDOER SASH ASSEMBLER-ADULT NEUROPSYCHOLOGIST [facility] 10-08-2024 14:20-0500 Blood Pressure Cuff Size CINDY BAILEY SASH ASSEMBLER-ADULT NEUROPSYCHOLOGIST [facility] 10-08-2024 14:20-0500 Blood Pressure Location CINDY BAILEY SASH ASSEMBLER-ADULT NEUROPSYCHOLOGIST [facility] 10-08-2024 14:20-0500 Blood Pressure Method CINDY BAILEY SASH ASSEMBLER-ADULT NEUROPSYCHOLOGIST [facility] 08-05-2024 21:02-0500 Diastolic Blood Pressure Non-Invasive 90 mm[Hg] EMILIE FROMMELT DO [facility] 08-05-2024 21:02-0500 Heart rate 90 /min EMILIE FROMMELT DO [facility] 08-05-2024 21:02-0500 Respiratory rate 18 /min EMILIE FROMMELT DO [facility] 08-05-2024 21:02-0500 Systolic Blood Pressure Non-Invasive 150 mm[Hg] EMILIE FROMMELT DO [facility] 08-05-2024 18:06-0500 Diastolic Blood Pressure Non-Invasive 94 mm[Hg] EMILIE FROMMELT DO [facility] 08-05-2024 18:06-0500 Heart rate 93 /min EMILIE FROMMELT DO [facility] 08-05-2024 18:06-0500 Respiratory rate 18 /min EMILIE FROMMELT DO [facility] 08-05-2024 18:06-0500 Systolic Blood Pressure Non-Invasive 153 mm[Hg] EMILIE FROMMELT DO [facility] 08-05-2024 16:37-0500 Blood Pressure Cuff Size EMILIE FROMMELT DO [facility] 08-05-2024 16:37-0500 Blood Pressure Location EMILIE FROMMELT DO [facility] 08-05-2024 16:37-0500 Blood Pressure Method EMILIE FROMMELT D O [facility] 08-05-2024 16:37-0500 Body height 185.4 cm EMILIE FROMALIXT DO [facility] 08-05-2024 16:37-0500 Body temperature 99.32 [degF] EMILIE FROMMELT DO [facility] 08-05-2024 16:37-0500 Body weight 84.1 kg EMILIE FROMMELT DO [facility] 08-05-2024 16:37-0500 Diastolic Blood Pressure Non-Invasive 103 mm[Hg] EMILIE JAMEST DO [facility] 08-05-2024 16:37-0500 Heart rate 90 /min EMILIE JAMEST DO [facility] 08-05-2024 16:37-0500 Respiratory rate 18 /min EMILIE JAMEST DO [facility] 08-05-2024 16:37-0500 Systolic Blood Pressure Non-Invasive 154 mm[Hg] EMILIE JAMEST DO [facility] 05-26-2024 06:08-0400 Diastolic Blood Pressure Non-Invasive 69 mm[Hg] NIDAL CHOUJAA DO [facility] 05-26-2024 06:08-0400 Heart rate 66 /min NIDAL CHOUJAA DO [facility] 05-26-2024 06:08-0400 Respiratory rate 16 /min NIDAL CHOUJAA DO [facility] 05-26-2024 06:08-0400 Systolic Blood Pressure Non-Invasive 123 mm[Hg] NIDAL CHOUJAA DO [facility] 05-26-2024 03:32-0400 Diastolic Blood Pressure Non-Invasive 67 mm[Hg] NIDAL CHOUJAA DO [facility] 05-26-2024 03:32-0400 Heart rate 83 /min NIDAL CHOUJAA DO [facility] 05-26-2024 03:32-0400 Systolic Blood Pressure Non-Invasive 113 mm[Hg] NIDAL CHOUJAA DO [facility] 05-26-2024 03:02-0400 Diastolic Blood Pressure Non-Invasive 69 mm[Hg] NIDAL CHOUJAA DO [facility] 05-26-2024 03:02-0400 Heart rate 85 /min NIDAL CHOUJAA DO [facility] 05-26-2024 03:02-0400 [facility] 20 /[facility] 05-26-2024 03:02-0400 Systolic Blood Pressure Non-Invasive 117 mm[Hg] NIDAL CHOUJAA DO [facility] 05-26-2024 02:11-0400 Body temperature 98.06 [degF] NIDAL CHOUJAA DO [facility] 05-26-2024 02:11-0400 Body weight 80.8 kg NIDAL CHOUJAA DO [facility] 05-26-2024 02:11-0400 Respiratory rate 20 /[facility] 05-17-2024 07:13-0400 Blood Pressure Cuff Size JANET SOSA MD [facility] 05-17-2024 07:13-0400 Blood Pressure Location JANET SOSA MD [facility] 05-17-2024 07:13-0400 Blood Pressure Method JANET SOSA MD [facility] 05-17-2024 07:13-0400 Body temperature 98.24 [degF] JANET SOSA MD [address] 05-17-2024 07:13-0400 Diastolic Blood Pressure Non-Invasive 69 mm[Hg] JANET SOSA MD [address] [place] [address] 05-17-2024 07:13-0400 Heart rate 77 /min JANET SOSA MD [address] [place] [address] 05-17-2024 07:13-0400 Respiratory rate 16 /min JANET SOSA MD [address] [place] [address] 05-17-2024 07:13-0400 Systolic Blood Pressure Non-Invasive 107 mm[Hg] JANET SOSA MD [address] [place] [address] 05-17-2024 03:05-0400 Body temperature 97.88 [degF] JANET SOSA MD [address] [place] [address] 05-17-2024 03:05-0400 Diastolic Blood Pressure Non-Invasive 62 mm[Hg] JANET SOSA MD [address] [place] [address] 05-17-2024 03:05-0400 Heart rate 82 /min JANET SOSA MD [address] [place] [address] 05-17-2024 03:05-0400 Respiratory rate 14 /min JANET SOSA MD [address] [place] [address] 05-17-2024 03:05-0400 Systolic Blood Pressure Non-Invasive 108 mm[Hg] JANET SOSA MD [address] 05-16-2024 22:44-0400 Body temperature 98.06 [degF] JANET SOSA MD [address] [place] [address] 05-16-2024 22:44-0400 Diastolic Blood Pressure Non-Invasive 66 mm[Hg] JANET SOSA MD [address] 05-16-2024 22:44-0400 Heart rate 75 /min JANET SOSA MD [address] [place] [address] 09-30-2024 22:44-0400 Respiratory rate 16 /min JANET SOSA MD [facility] 05-16-2024 22:44-0400 Systolic Blood Pressure Non-Invasive 107 mm[Hg] JANET SOSA MD [facility] 05-16-2024 19:08-0400 Heart rate 61 /min JANET SOSA MD [facility] 05-16-2024 16:56-0400 Heart rate 74 /min JANET SOSA MD [facility] 05-16-2024 11:34-0400 Blood Pressure Cuff Size JANET SOSA MD [facility] 05-16-2024 11:34-0400 Blood Pressure Location JANET SOSA MD [facility] 05-16-2024 11:34-0400 Blood Pressure Method JANET SOSA MD [facility] 05-16-2024 11:34-0400 Heart rate 73 /min JANET SOSA MD [facility] 05-16-2024 06:59-0400 Blood Pressure Cuff Size JANTE SOSA MD [facility] 05-16-2024 06:59-0400 Blood Pressure Location JANET SOSA MD [facility] 05-16-2024 06:59-0400 Blood Pressure Method JANET SOSA MD [facility] 05-16-2024 02:21-0400 Body height 185.4 cm JANET SOSA MD [facility] 05-16-2024 02:21-0400 Body weight 85.7 kg JANET SOSA MD [facility] 05-16-2024 02:21-0400 Body weight 24.93 kg/m2 JANET SOSA MD [facility] 05-15-2024 15:30-0400 Body weight 85.7 kg JANET SOSA MD [facility] 05-15-2024 14:26-0400 Diastolic Blood Pressure Non-Invasive 89 mm[Hg] ALEXANDRA PALAFOX MD [facility] 05-15-2024 14:26-0400 Heart rate 90 /min ALEXANDRA PALAFOX MD [facility] 05-15-2024 14:26-0400 Mean blood pressure 103 mm[Hg] ALEXANDRA PALAFOX MD [facility] 05-15-2024 14:26-0400 Respiratory rate 16 /min ALEXANDRA PALAFOX MD [facility] 05-15-2024 14:26-0400 Systolic Blood Pressure Non-Invasive 132 mm[Hg] ALEXANDRA PALAFOX MD [facility] 05-15-2024 12:35-0400 Diastolic Blood Pressure Non-Invasive 90 mm[Hg] ALEXANDRA PALAFOX MD [facility] 05-15-2024 12:35-0400 Heart rate 93 /min ALEXANDRA PALAFOX MD [facility] 05-15-2024 12:35-0400 Mean blood pressure 102 mm[Hg] ALEXANDRA PALAFOX MD [facility] 05-15-2024 12:35-0400 Respiratory rate 16 /min ALEXANDRA PALAFOX MD [facility] 05-15-2024 12:35-0400 Systolic Blood Pressure Non-Invasive 130 mm[Hg] ALEXANDRA PALAFOX MD [facility] 05-15-2024 11:06-0400 Blood Pressure Location ALEXANDRA PALAFOX MD [facility] 05-15-2024 11:06-0400 Body temperature 99.14 [degF] ALEXANDRA PALAFOX MD [facility] 05-15-2024 11:06-0400 Diastolic Blood Pressure Non-Invasive 66 mm[Hg] ALEXANDRA PALAFOX MD [facility] 05-15-2024 11:06-0400 Heart rate 67 /min ALEXANDRA PALAFOX MD [facility] 05-15-2024 11:06-0400 Respiratory rate 16 /min ALEXANDRA PALAFOX MD [facility] 05-15-2024 11:06-0400 Systolic Blood Pressure Non-Invasive 145 mm[Hg] ALEXANDRA PALAFOX MD [facility] 03-30-2024 07:32-0400 Diastolic Blood Pressure Non-Invasive 95 mm[Hg] DR MECCA SALEEM MD [facility] 03-30-2024 07:32-0400 Heart rate 83 /min DR MECCA SALEEM MD [facility] 03-30-2024 07:32-0400 Respiratory rate 18 /min DR MECCA SALEEM MD [facility] 03-30-2024 07:32-0400 Systolic Blood Pressure Non-Invasive 148 mm[Hg] DR MECCA SALEEM MD [facility] 03-29-2024 23:05-0400 Diastolic Blood Pressure Non-Invasive 77 mm[Hg] DR MECCA SALEEM MD [address] [place] [address] 03-29-2024 23:05-0400 Heart rate 82 /min DR MECCA SALEEM MD [facility] 03-29-2024 23:05-0400 Respiratory rate 18 /min DR MECCA SALEEM MD [facility] 03-29-2024 23:05-0400 Systolic Blood Pressure Non-Invasive 127 mm[Hg] DR MECCA SALEEM MD [facility] 03-29-2024 22:56-0400 Body weight [address] MECCA SALEEM MD [facility] 03-29-2024 20:17-0400 Diastolic Blood Pressure Non-Invasive 96 mm[Hg] DR MECCA SALEEM MD [facility] 03-29-2024 20:17-0400 Heart rate 79 /min DR MECCA SALEEM MD [address] [place] [address] 03-29-2024 20:17-0400 Respiratory rate 13 /min DR MECCA SALEEM MD [facility] 03-29-2024 20:17-0400 Systolic Blood Pressure Non-Invasive 150 mm[Hg] DR MECCA SALEEM MD [facility] 03-29-2024 17:29-0400 Body temperature 99.14 [degF] DR MECCA SALEEM MD [facility] 03-29-2024 17:29-0400 Heart rate 91 /min DR MECCA SALEME MD [facility] 12-25-2023 12:50-0400 Body temperature 98.3 [degF] Dr. Jennifer Villaseñor Work Phone: [facility] 12-25-2023 12:50-0400 Diastolic blood pressure 75 mm[Hg] Dr. Jennifer Villaseñor Work Phone: [facility] 12-25-2023 12:50-0400 Heart rate 80 /min Dr. Jennifer Villaseñor Work Phone: [facility] 12-25-2023 12:50-0400 Respiratory rate 18 /min Dr. Jennifer Villaseñor Work Phone: [facility] 12-25-2023 12:50-0400 SaO2% (BldA) [Mass fraction] 95 % Dr. Jennifer Villasñeor Work Phone: [facility] 12-25-2023 12:50-0400 Systolic blood pressure 106 mm[Hg] Dr. Jennifer Villaseñor Work Phone: [facility] 12-25-2023 04:01-0400 Body mass index (BMI) [Ratio] 23.5 kg/m2 Dr. Jennifer Villaseñor Work Phone: [facility] 12-25-2023 04:01-0400 Body weight 80.[address] Jennifer Villaseñor Work Phone: [facility] 12-19-2023 01:50-0400 Body height 185.[address] Jennifer Villaseñor Work Phone: [facility] 12-19-2023 01:50-0400 Body mass index (BMI) [Ratio] 22.4 kg/m2 Dr. Jennifer Villaseñor Work Phone: [facility] 12-19-2023 01:50-0400 Body weight 76.[address] Jennifer Villaseñor Work Phone: [facility] 12-19-2023 01:29-0400 Body temperature 98.5 [degF] Dr. Jennifer Villaseñor Work Phone: [facility] 12-19-2023 01:29-0400 Diastolic blood pressure 115 mm[Hg] Dr. Jennifer Villaseñor Work Phone: [facility] 12-19-2023 01:29-0400 Heart rate 91 /min Dr. Jennifer Villaseñor Work Phone: [facility] 12-19-2023 01:29-0400 Respiratory rate 18 /min Dr. Jennifer Villaseñor Work Phone: [facility] 12-19-2023 01:29-0400 SaO2% (BldA) [Mass fraction] 94 % Dr. Jennifer Villaseñor Work Phone: [facility] 12-19-2023 01:29-0400 Systolic blood pressure 140 mm[Hg] Dr. Jennifer Villaseñor Work Phone: [facility] 11-01-2023 22:15-0400 Diastolic Blood Pressure Non-Invasive 70 mm[Hg] NATHANIEL REICHFIELD DO [facility] 11-01-2023 22:15-0400 Heart rate 68 /min NATHANIEL REICHFIELD DO [facility] 11-01-2023 22:15-0400 Respiratory rate 16 /min NATHANIEL REICHFIELD DO [facility] 11-01-2023 22:15-0400 Systolic Blood Pressure Non-Invasive 118 mm[Hg] NATHANIEL REICHFIELD DO [facility] 11-01-2023 20:12-0400 Diastolic Blood Pressure Non-Invasive 75 mm[Hg] NATHANIEL REICHFIELD DO [facility] 11-01-2023 20:12-0400 Heart rate 61 /min NATHANIEL REICHFIELD DO [facility] 11-01-2023 20:12-0400 Respiratory rate 15 /min NATHANIEL REICHFIELD DO [facility] 11-01-2023 20:12-0400 Systolic Blood Pressure Non-Invasive 115 mm[Hg] NATHANIEL REICHFIELD DO [facility] 11-01-2023 19:14-0400 Body temperature 97.88 [degF] NATHANIEL REICHFIELD DO [facility] 11-01-2023 19:14-0400 Diastolic Blood Pressure Non-Invasive 78 mm[Hg] NATHANIEL REICHFIELD DO [facility] 11-01-2023 19:14-0400 Heart rate 74 /min NATHANIEL REICHFIELD DO [facility] 11-01-2023 19:14-0400 Respiratory rate 16 /min [facility] 11-01-2023 19:14-0400 Systolic Blood Pressure Non-Invasive 114 mm[Hg] [facility] 07-18-2023 09:49-[address] BRANDY CASTANEDA MD [facility] 07-18-2023 09:49-0500 Body temperature 97.88 [degF] DR BRANDY CASTANEDA MD [facility] 07-18-2023 09:49-0500 Diastolic Blood Pressure Non-Invasive 92 mm[Hg] DR BRANDY CASTANEDA MD [facility] 07-18-2023 09:49-0500 Heart rate 87 /min DR BRANDY CASTANEDA MD [facility] 07-18-2023 09:49-0500 Respiratory rate 16 /min DR BRANDY CASTANEDA MD [facility] 07-18-2023 09:49-0500 Systolic Blood Pressure Non-Invasive 150 mm[Hg] DR BRANDY CASTANEDA MD [facility] 07-10-2023 05:23-0500 Blood Pressure Location CY MEDEIROS MD [facility] 07-10-2023 05:23-0500 Blood Pressure Method CY MEDEIROS MD [facility] 07-10-2023 05:23-0500 Body height 185.4 cm CY MEDEIROS MD [facility] 07-10-2023 05:23-0500 Body temperature 97.52 [degF] CY MEDEIROS MD [facility] 07-10-2023 05:23-0500 Body weight 81.8 kg CY MEDEIROS MD [facility] 07-10-2023 05:23-0500 Diastolic Blood Pressure Non-Invasive 86 mm[Hg] CY MEDEIROS MD [facility] 07-10-2023 05:23-0500 Heart rate 100 /min CY MEDEIROS MD [facility] 07-10-2023 05:23-0500 Respiratory rate 20 /min CY MEDEIROS MD [facility] 07-10-2023 05:23-0500 Systolic Blood Pressure Non-Invasive 157 mm[Hg] CY MEDEIROS MD [facility] Encounters Encounter Date Encounter Type Care Provider Facility Start: 02-03-2025 End: 02-03-2025 Emergency department patient visit Dr. 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 SASH ASSEMBLER-ADULT NEUROPSYCHOLOGIST [facility] Start: 08-05-2024 End: 08-05-2024 Emergency department patient visit EMILIE FIGUEROA DO [facility] Start: 07-01-2024 ambulatory SUZANNA CARPENTER MD Facilit y:A Start: 05-26-2024 End: 05-26-2024 Emergency department patient visit CHARLIE KENNY DO [facility] Start: 05-15-2024 End: 05-17-2024 Evaluation and management of inpatient JANET SOSA MD [facility] Start: 05-15-2024 End: 05-15-2024 Emergency department patient visit ALEXANDRA PALAFOX MD [facility] Start: 03-29-2024 End: 03-30-2024 Emergency department patient visit DR MECCA SALEEM MD [facility] Start: 02-13-2024 End: 02-13-2024 ambulatory JENNIFER VILLASEÑOR MD Facility:A Start: 02-13-2024 End: 02-13-2024 Patient encounter procedure PHY WO ID REFERRING [facility] Start: 12-25-2023 Non-patient / Non-visit Dr. Jennifer Villaseñor Work Phone: [facility] Work Phone: Start: 12-24-2023 Non-patient / Non-visit Dr. Jennifer Villaseñor Work Phone: [facility] Work Phone: Start: 12-23-2023 Non-patient / Non-visit Dr. Jennifer Villaseñor Work Phone: [facility] Work Phone: Start: 12-22-2023 Non-patient / Non-visit Dr. Jennifer Villaseñor Work Phone: [facility] Work Phone: Start: 12-21-2023 Non-patient / Non-visit Dr. Jennifer Villaseñor Work Phone: [facility] Work Phone: Start: 12-20-2023 Non-patient / Non-visit Dr. Jennifer Villaseñor Work Phone: [facility] Work Phone: Start: 12-19-2023 End: 12-25-2023 Evaluation and management of inpatient Dr. Jennifer Villaseñor Work Phone: [facility] Work Phone: Start: 12-19-2023 Non-patient / Non-visit Dr. Jennifer Villaseñor Work Phone: [facility] Work Phone: Start: 11-01-2023 End: 11-01-2023 Emergency department patient visit NATHANIEL CARUSO [facility] Start: 09-16-2023 End: 09-16-2023 ambulatory JENNIFER VILLASEÑOR MD Facility:B Start: 09-16-2023 End: 09-16-2023 Patient encounter procedure JENNIFER VILLASEÑOR MD [facility] Start: 09-07-2023 End: 09-11-2023 ambulatory JENNIFER VILLASEÑOR MD Facility:B Start: 09-07-2023 End: 09-11-2023 Outreach Lab JENNIFER VILLASEÑOR MD [facility] Start: 09-03-2023 ambulatory JENNIFER VILLASEÑOR MD Faci lity:B Start: 07-18-2023 End: 07-18-2023 Emergency department patient visit DR BRANDY CASTANEDA MD [facility] Start: 07-10-2023 End: 07-10-2023 Emergency department patient visit CY MEDEIROS MD [facility] Start: 03-30-2023 End: 07-06-2023 Physical therapy management PHY WO ID REFERRING [facility] Start: 01-16-2023 End: 01-16-2023 Patient encounter procedure JENNIFER VILLASEÑOR MD [facility] Start: 01-08-2022 End: 01-08-2022 Patient encounter procedure VIVEK BISHOP SASH ASSEMBLER-ADULT NEUROPSYCHOLOGIST [facility] Start: 09-06-2021 End: 09-06-2021 Patient encounter procedure JENNIFER VILLASEÑOR MD [facility] Procedures Date Procedure Procedure Detail [...] Date Care Activity Detail Author Start: 02-03-2025 [facility] Start: 12-25-2023 Patient discharge [facility] Start: 12-19-2023 Bacteria identified in Blood by Culture Blood Culture [facility] Start: 12-19-2023 Referral to service [facility] Start: 12-19-2023 Referral to occupational therapist [facility] Start: 12-19-2023 Ultrasonography of abdomen [facility] Start: 12-19-2023 Vitamin B12 measurement [facility] Start: 12-19-2023 [facility] Start: 12-19-2023 Application of intermittent pneumatic compression device [facility] Start: 12-19-2023 Following clinical pathway protocol [facility] Start: 12-19-2023 Assessment of risk of venous thromboembolism [facility] Start: 12-19-2023 Bacteria identified in Sputum by Culture [facility] Start: 12-19-2023 Fall prevention [facility] Start: 12-19-2023 Incentive spirometry [facility] Start: 12-19-2023 Inhalation therapy procedure [facility] Start: 12-19-2023 Insertion of catheter into peripheral vein [facility] Start: 12-19-2023 Introduction of urinary catheter [facility] Start: 12-19-2023 Measuring intake and output [facility] Start: 12-19-2023 Oxygen therapy [facility] Start: 12-19-2023 Providing care according to standard [facility] Start: 12-19-2023 Provision of activity privileges [facility] Start: 12-19-2023 Referral to service [facility] Start: 12-19-2023 Taking nasal swab [facility] Start: 12-19-2023 Tobacco use cessation education [facility] Start: 12-19-2023 [facility] Start: 12-19-2023 Respiratory pathogens DNA and RNA panel - Respiratory specimen by VIVIANE with probe detection [facility] Start: 12-19-2023 Verification routine [facility] Start: 12-19-2023 Admission procedure [facility] Start: 12-19-2023 End: 12-19-2023 Blood culture [facility] Start: 12-18-2023 [facility] Alanine aminotransfe rase [Enzymatic activity/volume] in Serum or Plasma [facility] Albumin [Mass/volume ] in Serum or Plasma [facility] Alkaline phosphatase [Enzymatic activity/volume] in Serum or Plasma [facility] Anion gap measurement [facility] Aspartate aminotrans ferase [Enzymatic activity/volume] in Serum or Plasma [facility] Bacteria identified in Urine by Culture [facility] Bilirubin, total measurement [facility] BUN/Creatinine ratio [facility] Calcium [Mass/volume ] in Serum or Plasma [facility] Carbon dioxide, tota l [Moles/volume] in Serum or Plasma [facility] Chloride [Moles/volu me] in Serum or Plasma [facility] Creatinine [Moles/vo lume] in Serum or Plasma [facility] Erythrocyte mean corpuscular volume determination [facility] Folate [Mass/volume] in Serum or Plasma [facility] Glucose [Mass/volume ] in Serum or Plasma [facility] Hematocrit [Volume Fraction] of Blood [facility] Hemoglobin [Mass/vol ume] in Blood [facility] Hemoglobin A1c/Hemoglobin.total in Blood [facility] Leukocytes [#/volume ] in Blood [facility] Magnesium [Mass/volu me] in Serum or Plasma [facility] Mean corpuscular hem oglobin concentration determination [facility] Mean corpuscular hem oglobin determination [facility] Measurement of renal function [facility] Neutrophil count [facility] Neutrophil percent differential count [facility] Patient Education ED Alcohol Int oxication ED Rib Fracture ED Head Injury (Adult) [facility] Work Phone: Patient referral [facility] Work Phone: Platelets [#/volume] in Blood [facility] Potassium [Moles/vol ume] in Serum or Plasma [facility] Procalcitonin [Mass/ volume] in Serum or Plasma [facility] Red blood cell count [facility] Red cell distributio n width determination [facility] Sodium [Moles/volume ] in Serum or Plasma [facility] Total protein measurement [facility] Urea nitrogen [Mass/ volume] in Serum or Plasma [facility] Immunizations Immunization Date Immunization Notes Care Provider Jasvir evans 11-20-2020 SARS-CoV-2 mRNA (tozinameran) vaccine JENNIFER VILLASEÑOR [facility] 10-30-2020 SARS-CoV-2 mRNA (tozinameran) vaccine JENNIFER VILLASEÑOR MD [facility] Comment on above: Result Comment: 2022: [id number] 06-08-2013 tetanus toxoid, redu ok diphtheria toxoid, and acellular pertussis vaccine, adsorbed JENNIFER VILLASEÑOR [facility] Payers Date Payer Category Payer Self-pay [id number] 2024 Private Health Insurance [id number] 2024 Unknown [id number] 2024 Private Health Insurance [id number] 2024 Unknown [id number] 2024 Unknown [id number] 2023 Medicaid [id number] 2023 Unknown [id number] 1960 Unknown [id number] 2.16.840.1.478083.3.579.2.6 27 1960 Unknown [id number] 2.16.840.1.560074.3.579.2.6 1960 Unknown [id number] 2.16.840.1.702196.3.579.2.6 1960 Unknown [id number] 2.16.840.1.488876.3.579.2.6 1960 Unknown [id number] 2.16.840.1.368885.3.579.2.6 1960 Unknown [id number] 2.16.840.1.559661.3.579.2.6 1960 Unknown [id number] 2.16.840.1.682776.3.579.2.6 1960 Unknown [id number] 2.16.840.1.949494.3.579.2.6 1960 Unknown [id number] 2.16.840.1.158118.3.579.2.6 1960 Unknown [id number] 2.16.840.1.674377.3.579.2.6 1960 Unknown [id number] 2.16.840.1.389261.3.579.2.6 1960 Unknown [id number] 2.16.840.1.914794.3.579.2.6 1960 Unknown [id number] 2.16.840.1.917913.3.579.2.6 1960 Unknown [id number] 2.16.840.1.975883.3.579.2.6 27 Unknown [facility] [id number] Unknown SELF INSURED [facility] OTHER [id number] [id number] Unknown [id number] 2.16.840.1.630410.3.579.2.4 62 Social History Date Type Detail Facility Start: 10-15-2020 End: 05-26-2024 Heavy tobacco smoker (finding) [facility] Sex Assigned At [facility] Start: 08-07-2023 Tobacco smoking status Light tobacco smoker (finding) [facility] Start: 12-19-2023 Tobacco smoking status NHIS Unknown if ever smoked [facility] Start: 11-21-2019 Heavy [facility] Start: 11-21-2019 None [facility] Start: 11-21-2019 Spouse/ Signif icant Other [facility] Start: 11-22-2019 Cigarettes [facility] Start: 1960 Sex Assigned At Male [facility] Start: 10-21-2016 Sex Male (finding) [facility] Start: 02-03-2025 Tobacco smoking status NHIS Smokes tobacco daily (finding) [facility] Goals Date Patient Goal Desired Activity /State Functional Status Date Assessment Result Facility 10-13-2024 Functional Status Room check performed [facility] 10-13-2024 Functional Status Total [facility] 10-13-2024 Functional Status [facility] 10-13-2024 Functional Status [facility] 10-12-2024 Functional Status [facility] 10-12-2024 Functional Status [facility] 10-12-2024 Functional Status [facility] 10-12-2024 Functional Status [facility] 10-12-2024 Functional Status [facility] 10-11-2024 Functional Status Single level home [facility] 10-11-2024 Functional Status [facility] 10-10-2024 [facility]-09[facility]2024 Functional Status low air loss bed [facility] 10-09-2024 Functional [facility] 10-09-2024 Functional Status Done [facility] 10-08-2024 [facility] 10-08-2024 Functional Status Feeding Assist ance Maximum assistance [facility] 05-26-2024 Functional Status [facility] 05-26[facility] Functional Status Ambulation in [facility] 05-17-2024 Functional Status Refused by family membe r [facility] 05-17-2024 Functional Status Room check performed [facility] 05-17-2024 [facility] 05-17-2024 Functional Status [facility] 05-16-2024 Functional Status [facility] 05-16-2024 Functional Status Sitting on edge of bed [facility] 05-16-2024 Functional Status [facility] 05-16-2024 Functional Status [facility] 05-16-2024 Functional Status [facility] 05-16-2024 Functional Status [facility] 05-16-2024 Functional Status Min A [facility] 05-16-2024 Functional Status Sensory Deficits None [facility] 05-15-2024 Functional Status ID band on [facility] 03-30-2024 Functional Status Minimum [facility] 03-30-2024 Functional Status Activity Statu s ADL Sleeps intermittently [facility] 03-30-2024 Functional Status [facility] 03-29-2024 Functional Status Identified as high risk, Room located near nursing station, Room check performed [facility] 12-25-2023 Functional status Ambulates;Bathroom Priv [facility] Work Phone: 11-01-2023 Functional Status Minimum assistance [facility] 11-01-2023 Functional Status Identified as high risk, Room located near nursing station, Bed alert on, Non-Slip footwear, Reoriented, supervised while toileting, Security notified [facility] 07-18-2023 Functional Status Independent [facility] 07-18-2023 Functional Status ID band on [facility] 07-10-2023 Functional Status Standard Safet y ID band on, Call device within reach, Bed in low position, Wheels locked, personal items within reach [facility] 03-30-2023 Functional Status Home Living Ad [...] bilat Scour: NT Hip IR: see chart [facility] Mental Status Date Assessment Result Facility 10-13-2024 Mental Status Not oriented to time, Not oriented to situation, Does not interact [facility] 10-13-2024 Mental Status [facility] 10-12-2024 Mental Status [facility] 08-05-2024 Mental Status Orientation Oriented x 4 [facility] 05-26-2024 Mental Status Orientation Oriented x 4 [facility] 05-26-2024 Mental Status [facility] 05-17-2024 Mental Status Oriented x 4 [facility] 05-16-2024 Mental Status [facility] 05-16-2024 Mental Status [facility] 05-16-2024 Mental Status [facility] 05-15-2024 Mental Status Orientation Oriented x 4 [facility] 03-30-2024 Mental Status Orientation Oriented x 4 [facility] 03-29-2024 Mental Status [facility] 12-25-2023 Cognitive function Voice/Name [facility] Work Phone: 12-18-2023 Cognitive function Voice/Name [facility] Work Phone: 11-01-2023 Mental Status Orientation Oriented x 4 [facility] 11-01-2023 [facility] 07-18-2023 Mental Status Orientation Oriented x 4 [facility] 07-18-2023 Mental Status [facility] 07-10-2023 Mental Status Orientation Oriented x 4 [facility] Clinical Notes 01-13-2023 to 02-03-2025 Note Date & Type Note Facility 02-03-2025 Radiology Diagnostic study note [facility] Imaging Services [address] [place], [place] [address] Abdomen/Pelvis W IV Cont ONLY MR#: [id number] Acct: [id number] Name: JENNIFER YORK Rep #: [id number] : 1960 M 64 From: Jil Brunner MD PCP: Dr. Jennifer Villaseñor MD Status: REG ER Study:Abdomen/Pelvis W IV Cont ONLY Date of E xam: 02/03/25 Exam# [id number] Ordering Dr: Mallika Marvin DO EXAM: CT [...] fat. 6. Inguinal hernias, bilaterally. Reading Location: [facility] CC: Dr. Abby Marvin DO; Dr. Jennifer Villaseñor MD ~ Historical Records Administrator: Signed [facility] 02-03-2025 Radiology Diagnostic study note [facility] Imaging Services [address] [place], [place] [address] Chest without Contrast MR#: [id number] Acct: [id number] Name: JENNIFER YORK Rep #: [id number] : 1960 M 64 From: Salvador Fontenot MD PCP: Dr. Jennifer Villaseñor MD Status: REG ER Study:Chest without Contrast Date of Exam: 02/03/25 Exam# [id number] Ordering Dr: Mallika Marvin DO PROCEDURE: CHEST [...] Minimal amount of perisplenic fluid. Reading Location: [place] [address] CC: Dr. Abby Marvin DO; Dr. Jennifer Villaseñor MD ~ Historical Records Administrator: Signed [facility] 02-03-2025 Radiology Diagnostic study note [facility] Imaging Services [address] [place] [id number] Brain/Head without Contrast MR#: [id number] Acct: [id number] Name: JENNIFER YORK Rep #: [id number] : 1960 M 64 From: Salvador Fontenot MD PCP: Dr. Jennifer Villaseñor MD Status: REG ER Study:Brain/Head without Contrast Date of Exa m: 02/03/25 Exam# [id number] Ordering Dr: Mallika Marvin DO PROCEDURE: BRAIN/HEAD [...] CHRONIC CHANGES. NO ACUTE FINDINGS. Reading Location: [facility] CC: Dr. Abby Marvin DO; Dr. Jennifer Villaseñor MD ~ Historical Records Administrator: Signed [facility] 10-14-2024 Note . MICRO - Microbiology [...] Locations *1: This test was performed at: [facility], [address] [place] [address], [facility] , [facility] 10-14-2024 Note . MICRO - Microbiology [...] Locations *1: This test was performed at: [facility], [address] [place] [address], [address] , [facility] 10-13-2024 Hospital Discharge instructions Patient Education 10/13/2024 13:33:31 Influenza, Adult, Zpov-yc-Qlpn Influenza, Adult Influenza is also called the [...] get better. Your doctor may suggest: Taking kzxl-dow-jyyhfxc medicines. Drinking plenty of fluids. The flu [...] fruit juice). ?Low-calorie sports drinks. Eat bland, rznf-lv-ngvekw foods in small amounts as you are able. These foods include: ?Bananas. ?Applesauce. ?Rice. ?Lean meats. ?[place]. ?Crackers. Do not eat or drink: ?Fluids that have a lot of sugar or caffeine. ?Alcohol. ?Spicy or fatty foods. General instructions Take qieb-qrj-ajaqlwg and prescription medicines only as told by [...] use soap and water, use alcohol-based hand packing checker. Keep all follow-up visits as told by [...] It is caused by a virus. Take fkqe-tmu-fsooxyi and prescription medicines only as told by your doctor. Getting a flu shot every year is the best way to avoid getting the flu. This information is not intended to replace advice given to you by your health care provider. Make sure you discuss any questions you have with your health care provider. Document Released: 05/12/2009 Document Revised: 01/19/2019 Document Reviewed: 01/19/2019 [employer] Patient Education 2020 [employer]i. 10/13/2024 13:33:25 Hypokalemia Hypokalemia Hypokalemia means that [...] hospital. Follow these instructions at home: Take uuik-qkc-tqpnckv and prescription medicines only as told by [...] cantaloupe, kiwi, oranges, tomatoes, asparagus, and potatoes. ?Dry [place] juice. ?Tomato juice. ?Red meats. ?Yogurt. Keep [...] 08/03/2006 Document Revised: 03/16/2019 Document Reviewed: 03/16/2019 [employer] Patient Education 2020 [employer]. 10/13/2024 13:33:22 Hypomagnesemia Hypomagnesemia Hypomagnesemia is a [...] do that. Take them as directed. Take tjgx-tsj-dcijtmy and prescription medicines only as told by [...] 04/29/2006 Document Revised: 07/16/2018 Document Reviewed: 07/05/2018 [employer] Patient Education 2020 [employer]. Follow Up Care 10/08/2024 14:17:41 With:JENNIFER VILLASEÑOR MD Address: [address] [place] [address]- When: Unknown [facility] 10-13-2024 Note Discharge Instructions Thank you for allowing [facility] to assist you with your healthcare needs. The following is important discharge information regarding your hospital visit. Your Care Team [facility] Your Diagnosis Alcoholic cirrhosis Alcoholism [...] growth. Antibiotic discontinued. He was placed on [facility] protocol with scheduled Librium and PRN ativan [...] JENNIFER VILLASEÑOR MD Where:[address] [facility] [place] [address]- The Following Activity and Diet Have Been [...] get better. Your doctor may suggest: Taking xrpf-fkc-plikpdk medicines. Drinking plenty of fluids. The flu [...] juice). ? Low-calorie sports drinks. Eat bland, abbq-zj-gwtrlx foods in small amounts as you are able. These foods include: ? Bananas. ? Applesauce. ? Rice. ? Lean meats. ? [place]. ? Crackers. Do not eat or drink: ? Fluids that have a lot of sugar or caffeine. ? Alcohol. ? Spicy or fatty foods. General instructions Take svgz-yxk-rinofac and prescription medicines only as told by [...] use soap and water, use alcohol-based hand packing checker. Keep all follow-up visits as told by [...] It is caused by a virus. Take wned-zhi-zknbigu and prescription medicines only as told by your doctor. Getting a flu shot every year is the best way to avoid getting the flu. This information is not intended to replace advice given to you by your health care provider. Make sure you discuss any questions you have with your health care provider. Document Released: 05/12/2009 Document Revised: 01/19/2019 Document Reviewed: 01/19/2019 [employer] Patient Education 2020 Ludi. Hypokalemia Hypokalemia means that the amount of [...] hospital. Follow these instructions at home: Take exce-iab-mxdmyep and prescription medicines only as told by [...] kiwi, oranges, tomatoes, asparagus, and potatoes. ? Dry Branch juice. ? Tomato juice. ? Red meats. [...] 08/03/2006 Document Revised: 03/16/2019 Document Reviewed: 03/16/2019 [employer] Patient Education 2020 [employer] Hypomagnesemia Hypomagnesemia is a condition in [...] do that. Take them as directed. Take ujym-vde-etyvfxt and prescription medicines only as told by [...] 04/29/2006 Document Revised: 07/16/2018 Document Reviewed: 07/05/2018 [employer] Patient Education 2020 [employer] Additional Information VACCINATE! IT SAVES LIVES! Members of the community who have not yet received the COVID-19 vaccine and would like to receive it can visit one of [facility] vaccine clinics. There are many vaccine clinic locations within the [facility]. For locations and available times, please visit https://gettheshot.coronavirus.nh io.gov/. It is important to note that some COVID mobile vaccine clinics are held outdoors and may be canceled in rainy or stormy conditions. To learn more about pediatric vaccinations (ages 5-11), we invite you to visit the [employer] webpage. https://www.ROOOMERS.org/pa ges/3977-Kuyqu-Iredanqkfvo-Freque jexi-Hlumg-Titsiqlwg.html To learn more about the COVID-19 vaccine, we invite you to visit the CDC website for a list of frequently asked questions.https://www.cdc.gov/cor onavirus/2019-ncov/vaccines/faq.h tml [employer] [employer] Patient Portal Access Instructions: Stay connected with your healthcare team and access your personal medical information anytime with the [employer] Patient Portal. Please follow the directions below to create your [facility] [employer] account: 1.Access the email account you provided upon registration to the hospital/physician office.2.Look for an invitation email from [facility].3.Open the email and access the invitation link: Accept Invitation to [employer] [employer].4.Fill in the required allen to create your account. To access your account, visit [email or web address]. Click the blue button labeled Access Patient [...] you will allow to register on the [facility] Patient Portal for access to your information. You can also access the [facility] Patient Portal on the [facility] louisa. Simply click on Patient Portal and then log into your account. If you would like to receive a full copy of your medical records, please contact the [facility] Medical Records Department by calling [phone], Thursday through Thursday between 8 a.m. and [...] Call your local pharmacy or go to http://Somo/2I4Qk2t to find one close to you.3.Make use of household items: Use cat litter or old coffee grounds to dispose medications if other options are not available. Mix your drugs with these household products, seal them in an airtight container and throw it into the garbage. Call [facility]: [phone] to be sure your drugs can be [...] COPY. Signatures Patient Education Materials Influenza, Adult, Anwt-ux-Toqg Hypokalemia Hypomagnesemia Medication Leaflets My discharge plan and instructions have been reviewed and explained to me and I,JENNIFER YORK understand my current condition and have read and understand these discharge instructions. I have received a written copy of the plan/instructions. If I have questions, I am aware that I should contact my doctor. 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 Patient is an alcoholic with cirrhosis. [...] saw today and recommended a skilled stay. 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 As long as awake [...] - will likely need to go to [facility] for a while Time Spent 38 minutes spent reviewing past diagnostic tests, reviewing lab results, vital sign trends, medical history, reviewing medications and ordering home medications, examining patient, discussed plan of care with care team, collaborating with physician, and documenting in chart. Digitally Signed by CINDY BAILEY on 10/11/2024 01:57 PM Digitally Signed by CINDY BAILEY on 10/11/2024 07:24 PM [facility] 10-11-2024 Note . MICRO - Microbiology [...] Locations *1: This test was performed at: [facility], [address] [place] [address], [facility] , [facility] 10-10-2024 Note Exam Date Time Procedure Performing Provider Status 10/10/24 3:[address] Head or Brain w/o Contrast JENIFER ROGERS MD; Auth (Verified) [id number] ORIGINAL EXAMINATION: CT HEAD TECHNIQUE: Axial CT [...] 10/10/2024 4:34:44 PM Ordering Provider: CINDY BAILEY [facility]02-24-2025 manager development Note TC to patient's ex- to gather information/administer SDOH (as patient is experiencing confusion/is in isolation); LVM. Will continue to follow. Digitally Signed by Teresa Mccoy on 10/10/2024 02:14 PM [facility]02-24-2025 Note Date of Service 10/10/2024 Chief [...] by CINDY BAILEY on 10/10/2024 12:29 PM [facility]02-22-2025 Note Date of Service 10/08/2024 Chief [...] hypertension, hyperlipidemia, tremors, and anxiety, presented to [facility] emergency department with the chief complaint of confusion. Patient is a resident of [facility] and was noted by staff to [...] Status: Employed. 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 Spouse [...] PM Digitally Signed by JYOTI HE MD [facility]02-22-2025 Note* Exam Date Time Procedure Performing Provider Status 10/08/24 3:[address] Head or Brain w/o Contrast TE BADILLO MD; Auth (Verified) [id number] ORIGINAL EXAMINATION: CT OF THE HEAD WITHOUT [...] Sign Date: 10/08/2024 3:42:37 PM Ordering Provider: [facility]02-22-2025 Note* Exam Date Time Procedure Performing Provider Status 10/08/24 3:30 PM XR Chest 1 View AUGUSTIN PRADO MD; A [facility] (Verified) [id number] ORIGINAL EXAMINATION: ONE XRAY VIEW OF THE [...] 10/08/2024 3:39:16 PM Ordering Provider: TONG PIZARRO [facility]02-22-2025 Note* Exam Date Time Procedure Performing Provider Status 10/08/24 2:28 PM EKG [ED AOH] - CV TONG PIZARRO DO; A uth (Verified) ECG Final Report Atrial fibrillation Repol abnrm suggests ischemia, diffuse leads Baseline wander in lead(s) I,III,aVL Compared to ECG at 05/15/2024 15:38:48 Electronic Signature: TONG PIZARRO DO 10/08/2024 15:54:12 [facility]02-22-2025 HCoV 229E RNA VIVIANE+non-probe Ql (Nph) Not Detected *NA* (10/08/24 2:27 PM)AH Auto Viro/Sero [id number] Evaluation + Plan noteExtracted from: Title:History and Physical Author:CINDY BAILEY APRN-ADULT NEUROPSYCHOLOGIST Date:10/08/24 1. Altered mental status Acute, new [...] collaborating with physician, and documenting in chart. [facility] 12-20-2024 Hospital Discharge instructions Patient Education [...] www.aa.org to find a local meeting place. [employer] family groups offers support to families of alcohol users. Go to www.aliHealth Labsn.org National United [employer] On Alcoholism And Drug Dependence at 068-059-3838 or www.ncadd.org Residential alcohol detox programs are [...] awaken Increasing upper abdominal pain Repeated vomiting [phone] [employer]. [address] [place] [address]. All rights reserved. This information is not [...] wet, you can dry it with a assistant hairstylist. If nishi tape was put on and [...] or as directed by your healthcare provider [phone] [employer]. [address] [place] [address], [place] [address]. All rights reserved. This information is not intended as a substitute for professional medical care. Always follow yourhealthcare professional's instructions. Follow Up Care 08/05/2024 16:26:54 With:JENNIFER VILLASEÑOR MD Address: [address] [place] [address]- When:2-4 days [facility] 12-20-2024 Note Discharge Instructions Thank you for allowing [facility] to assist you with your healthcare needs. The following is importantdischarge information regarding your hospital visit. Diagnosis from Today's Visit Alcohol withdrawal Finger fracture What to Do Next Instructions from Your Care Team No qualifying data available. Post Acute Orders No qualifying data available. You Need to Schedule the Following Appointments Follow Up with JENNIFER VILLASEÑOR MD When:Within 2-4 days Where:[place] [address]- Allergies NKA Medications Please ask [...] www.aa.org to find a local meeting place. [facility] family groups offers support to families of alcohol users. Go to www.al-anon.org National United Keetoowah On Alcoholism And Drug Dependence at 918-745-3463 or www.ncadd.org Residential alcohol detox programs are [...] awaken Increasing upper abdominal pain Repeated vomiting 3072-5452 [employer]. [address] [place] [address]. All rights reserved. This information is not [...] wet, you can dry it with a assistant hairstylist. If nishi tape was put on and [...] or as directed by your healthcare provider [phone] [employer]. [address] [place] [address], [place] [address]. All rights reserved. This information is not intended as a substitute for professional medical care. Always follow yourhealthcare professional's instructions. Additional Information VACCINATE! IT SAVES LIVES! Members of the community who have not yet received the COVID-19 vaccine and would like to receive it can visit one of [facility] vaccine clinics. There are many vaccine clinic locations within the [facility]. For locations and available times, please visit www.gettheshot.coronavirus.[place].gov/. It is important to note that some COVID mobile vaccine clinics are held outdoors and may be canceled in rainy or stormy conditions. To learn more about pediatric vaccinations (ages 5-11), we invite you to visit the [facility] webpage. https://www.Reliance Globalcoms.org/pages/5918-Dexbc-Imlnyyfekxt-Ehophhtehm-Tzeqn-Wgb stions.htmlTo learn more about the COVID-19 vaccine, we invite you to visit the CDC website for a list of frequently asked questions. https://www.cdc.gov/coronavirus/2019-ncov/vaccines/faq.html [facility] Patient Portal Access Instructions: Stay connected with your healthcare team and access your personal medical information anytime with the [facility] Patient Portal. If you would like a full copy of your medical records please contact the [facility] Medical Records Department Thursday through Thursday between 8a.m. and 4:30p.m. Please follow the directions below to access the portal: 1.Access the email account you provided upon registration to the [facility].2.Look for an invitation email from [facility].3.Open the email and access the invitation link: Accept Invitation to [facility]4.Fill in the required allen to create your account. Sign into [email or web address].[email or web address] with your username and password that you [...] you will allow to register on the [facility] Patient Portal for access to your information. You can also access the [facility] Patient Portal on the [facility] louisa. Simply click on Health Records under Posibl. and then click on the Furnish.co.uk logo. HOW TO SAFELY DISPOSE OF PRESCRIPTION [...] Call your local pharmacy or go to [email or web address] to find one close to you.3.Make use of household items: Use cat litter or old coffee grounds to dispose medications if other options arenot available. Mix your drugs with these household products, seal them in an airtight container andthrow it into the garbage. Call [facility]: [phone] to be sure your drugs can be [...] am aware that I should contactmy doctor. Patient/Aboriginal Education Worker Coordinator Signature: Date/Time: Relationship to Patient: Witness Name/Signature: Date/Time: [facility]12-20-2024 Note* Exam Date Time Procedure Performing Provider Status 08/05/24 5:11 PM XR Chest 1 View Auth (Ve rified) [id number] ORIGINAL EXAMINATION: ONE XRAY VIEW OF THE [...] 08/05/2024 5:21:45 PM Ordering Provider: EMILIE FIGUEROA [facility]10-10-2024 Hospital Discharge instructions Patient Education 05/26/2024 [...] Swelling, pain, or redness in one leg 6540-4180 [employer]. [address] [place] [address], [place] [address]. All rights reserved. This information is not intended as a substitute for professional medical care. Always follow yourhealthcare professional's instructions. Follow Up Care 05/26/2024 02:03:06 With:JENNIFER VILLASEÑOR MD Address: [address] [place] [id number]- When:2-4 days [facility] 10-10-2024 Emergency department Discharge summary Discharge [...] When:Within 2-4 days Where:[address] [facility] [place] [address]- Allergies NKA Medications Please ask [...] Swelling, pain, or redness in one leg 2447-8233 [employer]. [address] [place] [address], [place] [address]. All rights reserved. This information is not intended as a substitute for professional medical care. Always follow yourhealthcare professional's instructions. Additional Information VACCINATE! IT SAVES LIVES! Members of the community who have not yet received the COVID-19 vaccine and would like to receive it can visit one of [facility] vaccine clinics. There are many vaccine clinic locations within the [facility]. For locations and available times, please visit www.gettheshot.coronavirus.[place].gov/. It is important to note that some COVID mobile vaccine clinics are held outdoors and may be canceled in rainy or stormy conditions. To learn more about pediatric vaccinations (ages 5-11), we invite you to visit the [facility] webpage. https://www.Reliance Globalcoms.org/pages/4361-Guaxt-Evehwxsyuqo-Jwbyiatpuc-Fyptb-Upp stions.htmlTo learn more about the COVID-19 vaccine, we invite you to visit the CDC website for a list of frequently asked questions. https://www.cdc.gov/coronavirus/2019-ncov/vaccines/faq.html [facility] Patient Portal Access Instructions: Stay connected with your healthcare team and access your personal medical information anytime with the [facility] Patient Portal. If you would like a full copy of your medical records please contact the [facility] Medical Records Department Thursday through Thursday between 8a.m. and 4:30p.m. Please follow the directions below to access the portal: 1.Access the email account you provided upon registration to the hospital.2.Look for an invitation email from [facility].3.Open the email and access the invitation link: Accept Invitation to [facility]4.Fill in the required allen to create your account. Sign into [email or web address].[email or web address] with your username and password that you [...] you will allow to register on the [facility] Patient Portal for access to your information. You can also access the [facility] Patient Portal on the [facility] louisa. Simply click on Health Records under Posibl. and then click on the Furnish.co.uk logo. HOW TO SAFELY DISPOSE OF PRESCRIPTION [...] Call your local pharmacy or go to [email or web address] to find one close to you.3.Make use of household items: Use cat litter or old coffee grounds to dispose medications if other options arenot available. Mix your drugs with these household products, seal them in an airtight container andthrow it into the garbage. Call [facility]: [phone] to be sure your drugs can be [...] am aware that I should contactmy doctor. Patient/Aboriginal Education Worker Coordinator Signature: Date/Time: Relationship to Patient: Witness Name/Signature: Date/Time: [id number] Note ORIGINAL EXAMINATION: ONE XRAY VIEW OF [...] Sign Date: 05/26/2024 2:51:00 AM Ordering Provider: [facility]10-01-2024 Pastoral care Progress note Pastoral Care Note Entered On: 05/17/2024 14:06 EDT Performed On: 05/17/2024 14:05 EDT by Wing Chavez [facility] Type of Pastoral Visit : Initial visit [...] by Wing Chavez on 05/17/2024 02:05 PM [facility] [id number] Hospital Discharge instructions Patient Education 05/17/2024 09:30:41 [...] says it is okay. General instructions Take uawl-wuu-xszkbmx and prescription medicines only as told by [...] 08/03/2006 Document Revised: 07/16/2018 Document Reviewed: 07/12/2018 [employer] Patient Education 2020 [employer] Follow Up Care 05/15/2024 15:22:37 With:Kareem Lee, [facility], Address:Unknown When: Unknown Comments:[facility] With:SUZANNA CARPENTER Address: [address] [facility] [place] [address]- [phone] Business (1) When:1-2 days Comments:Steroid injections to be completed in IR department at [facility], will call to schedule With:JENNIFER VILLASEÑOR MD Address: [address] [facility] [place] [address]- When:1-2 days Comments:Please call the office to schedule a hospital follow-up appointment. [facility] 10-01-2024 Discharge summary Date of Service 05/17/2024 Discharge Diagnosis Alcohol abuse (F10.10 - ICD-10-CM) Alcoholism (F10.20 - ICD-10-CM) Fall ([id number] - PNED) CHECO (generalized anxiety disorder) (F41.1 [...] completed in the interventional radiology department of [facility]. The department will reach out to [...] by MECCA RODRÍGUEZ on 05/17/2024 08:54 AM [facility] [id number] Note Discharge Instructions Thank you for allowing [facility] to assist you with your healthcare needs. [...] completed in the interventional radiology department of [facility]. The department will reach out to your regarding the scheduling of your injections. Follow Up Appointments Follow Up with SUZANNA CARPENTER When:Within 1-2 days [facility] [facility] [address] [facility] [place] [address] [phone] [facility] (1) Additional Information: Steroid injections to be completed in IR department at [facility], will call to schedule Follow Up with JENNIFER VILLASEÑOR MD When:Within 1-2 days Where:[address] [place] [address]- Additional Information: Please call the office to [...] fractures Duration: 5 Days Pickup at [facility]/pharmacy #[id number] New ibuprofen (Motrin) 400 Milligram by mouth [...] mouth Daily at bedtime Pharmacy Information [facility]/pharmacy #[id number]: [address] [place], [place] [phone] Please take this list to your next [...] may report side effects to FDA at [phone]. What other drugs will affect acetaminophen and [...] affect acetaminophen and oxycodone, including prescription and rucm-ufw-zuqziui medicines, vitamins, and herbal products. Not all [...] to ensure that the information provided by Home[employer]iva. ('Multum') is accurate, up-to-date, and complete, but no guarantee is made to that effect. Drug information contained herein may be time sensitive. EthicsGame information has been compiled for use by healthcare practitioners and consumers in the [place] and therefore EthicsGame does not warrant that uses outside of the [place] are appropriate, unless specifically indicated otherwise. LiveNinjas drug information does not endorse drugs, diagnose patients or recommend therapy. LiveNinjas drug information isan informational resource designed to [...] effective or appropriate for any given patient. EthicsGame does not assume any responsibility for any aspect of healthcare administered with the aid of information EthicsGame provides. The information contained herein is not intended to cover all possible uses, directions, precautions, warnings, drug interactions, allergic reactions, or adverse effects. If you have questions about the drugs you are taking, check with your doctor, nurse or pharmacist. Copyright 6298-3406 Home[employer]. Version: 22.. Revision Date: 03/19/2023. Education Materials [...] says it is okay. General instructions Take iwww-iri-rtysboh and prescription medicines only as told by [...] 08/03/2006 Document Revised: 07/16/2018 Document Reviewed: 07/12/2018 ElseYieldBuild Patient Education 2020 Ludi. Additional Information VACCINATE! IT SAVES LIVES! Members of the community who have not yet received the COVID-19 vaccine and would like to receive it can visit one of [facility] vaccine clinics. There are many vaccine clinic locations within the [facility]. For locations and available times, please visit https://gettheshot.coronavirus.[place].gov/. It is important to note that some COVID mobile vaccine clinics are held outdoors and may be canceled in rainy or stormy conditions. To learn more about pediatric vaccinations (ages 5-11), we invite you to visit the [facility] webpage. https://www.[facility].org/pages/0237-Gokef-Tbtjjmoafwn-Vrhubvkeor-Aonsc-Gyo stions.htmlTo learn more about the COVID-19 vaccine, we invite you to visit the CDC website for a list of frequently asked questions.https://www.cdc.gov/coronavirus/2019-ncov/vaccines/faq.html [facility] Patient Portal Access Instructions: Stay connected with your healthcare team and access your personal medical information anytime with the [facility] Patient Portal. Please follow the directions below to create your [facility] [employer] account: 1.Access the email account you provided upon registration to the hospital/physician office.2.Look for an invitation email from [facility].3.Open the email and access the invitation link: AcceptInvitation to [facility].4.Fill in the required allen to create your account. To access your account, visit [email or web address]. Click the blue button labeled Access Patient [...] who you will allowto register on the [facility] Patient Portal for access to your information. You can also access the [facility] Patient Portal on the [facility] Any[facility] louisa. Simply click on Patient Portal and then log into your account. If you would like to receive a full copy of your medical records, please contact the [facility] Medical Records Department by calling [phone], Thursday through Thursday between 8 a.m. and [...] Call your local pharmacy or go to [email or web address] to find one close to you.3.Make use of household items: Use cat litter or old coffee grounds to dispose medications if other options arenot available. Mix your drugs with these household products, seal them in an airtight container andthrow it into the garbage. Call [facility]: [phone] to be sure your drugs can be [...] am aware that I should contactmy doctor. Patient/Aboriginal Education Worker Coordinator Signature: Date/Time: Relationship to Patient: Witness Name/Signature: Date/Time: [facility] HospitalGoaeabro91-69-5435 Discharge summary Date of Service 05/17/2024 Discharge Diagnosis Alcohol abuse (F10.10 - ICD-10-CM) Alcoholism (F10.20 - ICD-10-CM) Fall ([id number] - PNED) CHECO (generalized anxiety disorder) (F41.1 [...] completed in the interventional radiology department of [facility]. The department will reach out to [...] by MECCA RODRÍGUEZ on 05/17/2024 08:54 AM [facility] [id number] [facility] Hospital Progress note Date of Service [...] small right-sided pneumothorax, right 8-12th fractures, and Z7vtwozymmem processes fractures of the right. Overall the [...] by FLAQUITA BORJAS on 05/16/2024 07:43 AM [facility] HospitalBqlbkhrr55-90-4488 Neurological surgery Consult note Date of Service [...] a mechanical fall at [facility], landing on his right side. Subsequently presented [...] Status: Employed. 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 Spouse [...] by BALJIT WILSON on 05/16/2024 08:50 AM [facility] HospitalBkqwuggr68-89-2253 Neurological surgery Consult note Date of Service [...] a mechanical fall at [facility], landing on his right side. Subsequently presented [...] Status: Employed. 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 Spouse [...] by BALJIT WILSON on 05/16/2024 08:50 AM [facility] [id number] Surgery Hospital Progress note Date of Service [...] small right-sided pneumothorax, right 8-12th fractures, and L2nsbkbpgfeu processes fractures of the right. Overall the [...] by FLAQUITA BORJAS on 05/16/2024 07:43 AM [facility] HospitalXepuomdl00-17-5340 Note ORIGINAL EXAMINATION: ONE XRAY VIEW OF [...] Sign Date: 05/16/2024 6:34:24 AM Ordering Provider: [facility]09-29-2024 History and physical note Date of [...] Status: Employed. 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 Spouse [...] JANET SOSA MD on 05/15/2024 07:00 PM [facility] HospitalKoyfjebv22-87-7023 NoteSINUS RHYTHM Electronic Signature: NATHANIEL CARUSO DO 05/15/2024 15:41:07[facility] 09-29-2024 Note ORIGINAL EXAMINATION: ONE XRAY [...] Date: 05/15/2024 3:44:23 PM Ordering Provider: NATHANIEL [facility]09-29-2024 Evaluation + Plan noteExtracted from: Title:History and [...] Scheduled Tests Radiology* IR Facet Injection 05/16/24 [facility] 09-29-2024 Note ADDENDUM ADDENDUM: Findings discussed [...] Date: 05/15/2024 1:23:26 PM [facility] Note ADDENDUM ADDENDUM: Findings discussed with [...] Provider: ALEXANDRA [facility]08-13-2024 Hospital Discharge instructions Patient Education 03/29/2024 21:30:05 [...] you: Duties at home or with child caregiver suffer because of drinking. Duties at work [...] Sleep problems Seizures These changes may be supervisor intermediates (permanent). Heart and blood vessels Alcohol can [...] Alcohol and Substance Abuse Information Center (NASAIC). 893.553.6605, www.addictioncareoptions.com National United Keetoowah on Alcoholism and Drug Dependence (NCADD). 404-TFT-RGCS (330-488-6474), www.ncadd.org Call 911 Call 911 if any [...] or black or tarry stools Severe shakiness 2767-4503 [employer]. [address] [place] [address], [place] [address]. All rights reserved. This information is not intended as a substitute for professional medical care. Always follow yourhealthcare professional's instructions. Follow Up Care 03/29/2024 17:20:11 With:JENNIFER VILLASEÑOR MD Address: [address] [place], [place] [address]- When:2-4 days [facility] 08-13-2024 Emergency department Discharge summary Discharge [...] When:Within 2-4 days Where:[address] [place] [address]- Allergies NKA Medications Please ask [...] you: Duties at home or with child caregiver suffer because of drinking. Duties at work [...] Alcohol and Substance Abuse Information Center (NASAIC). 339.855.8526, www.addictioncareoptions.com National United Keetoowah on Alcoholism and Drug Dependence (NCADD). 039-ATK-UDAP (183-724-2810), www.ncadd.org Call 911 Call 911 if any [...] or black or tarry stools Severe shakiness 6802-4158 [employer]. [address] [place] [address], [place] [address]. All rights reserved. This information is not intended as a substitute for professional medical care. Always follow yourhealthcare professional's instructions. Additional Information VACCINATE! IT SAVES LIVES! Members of the community who have not yet received the COVID-19 vaccine and would like to receive it can visit one of [facility] vaccine clinics. There are many vaccine clinic locations within the [facility]. For locations and available times, please visit www.gettheshot.coronavirus.[place].gov/. It is important to note that some COVID mobile vaccine clinics are held outdoors and may be canceled in rainy or stormy conditions. To learn more about pediatric vaccinations (ages 5-11), we invite you to visit the [facility] webpage. https://www.[facility].org/pages/2563-Tmget-Vunreboozrm-Lcmqedhyoi-Sapaf-Nry stions.htmlTo learn more about the COVID-19 vaccine, we invite you to visit the CDC website for a list of frequently asked questions. https://www.cdc.gov/coronavirus/2019-ncov/vaccines/faq.html [facility] Patient Portal Access Instructions: Stay connected with your healthcare team and access your personal medical information anytime with the [facility] Patient Portal. If you would like a full copy of your medical records please contact the [facility] Medical Records Department Thursday through Thursday between 8a.m. and 4:30p.m. Please follow the directions below to access the portal: 1.Access the email account you provided upon registration to the hospital.2.Look for an invitation email from [facility].3.Open the email and access the invitation link: Accept Invitation to [facility]4.Fill in the required allen to create your account. Sign into [email or web address] with your username and password that you [...] you will allow to register on the [facility] Patient Portal for access to your information. You can also access the [facility] Patient Portal on the Jelli louisa. Simply click on Health Records under Posibl. and then click on the [facility] logo. [...] Call your local pharmacy or go to http://[email or web address]/[email or web address] to find one close to you.3.Make use of household items: Use cat litter or old coffee grounds to dispose medications if other options arenot available. Mix your drugs with these household products, seal them in an airtight container andthrow it into the garbage. Call [facility]: [phone] to be sure your drugs can be [...] am aware that I should contactmy doctor. Patient/Aboriginal Education Worker Coordinator Signature: Date/Time: Relationship to Patient: Witness Name/Signature: Date/Time: [facility] [id number] Emergency department Discharge summary Discharge Instructions Thank [...] 2-4 days Where:[address] [facility] [place] [address]- Allergies NKA Medications Please ask your primary doctor or pharmacist before taking any other medication not listed, including over the counter drugs, herbal medications, vitamins and or supplements as they may interact [facility] medications. What How Much [...] you: Duties at home or with child caregiver suffer because of drinking. Duties at work [...] Sleep problems Seizures These changes may be supervisor intermediates (permanent). Heart and blood vessels Alcohol can [...] Alcohol and Substance Abuse Information Center (NASAIC). 471.120.3755, www.addictioncareoptions.com National United Keetoowah on Alcoholism and Drug Dependence (NCADD). 957-NLR-EPWC (842-252-1424), www.ncadd.org Call 911 Call 911 if any [...] or black or tarry stools Severe shakiness 3086-7024 [employer]. [address] [place] [address]. All rights reserved. This information is not intended as a substitute for professional medical care. Always follow yourhealthcare professional's instructions. Additional Information VACCINATE! IT SAVES LIVES! Members of the community who have not yet received the COVID-19 vaccine and would like to receive it can visit one of [facility] vaccine clinics. There are many vaccine clinic locations within the [facility]. For locations and available times, please visit www.gettheshot.coronavirus.[place].gov/. It is important to note that some COVID mobile vaccine clinics are held outdoors and may be canceled in rainy or stormy conditions. To learn more about pediatric vaccinations (ages 5-11), we invite you to visit the [facility] webpage. https://www.akronJust Sing Its.org/pages/9782-Gkgku-Cyeopfiilhn-Hkrqjlwpbl-Mqjmh-Hyx stions.htmlTo learn more about the COVID-19 vaccine, we invite you to visit the CDC website for a list of frequently asked questions. https://www.cdc.gov/coronavirus/2019-ncov/vaccines/faq.html [facility] Patient Portal Access Instructions: Stay connected with your healthcare team and access your personal medical information anytime with the [facility] Patient Portal. If you would like a full copy of your medical records please contact the [facility] Medical Records Department Thursday through Thursday between 8a.m. and 4:30p.m. Please follow the directions below to access the portal: 1.Access the email account you provided upon registration to the [facility].2.Look for an invitation email from [facility].3.Open the email and access the invitation link: Accept Invitation to [facility]4.Fill in the required allen to create your account. Sign into [email or web address].[email or web address] with your username and password that you [...] you will allow to register on the [facility] Patient Portal for access to your information. You can also access the [facility] Patient Portal on the Jelli louisa. Simply click on Health Records under Posibl. and then click on the Furnish.co.uk logo. HOW TO SAFELY DISPOSE OF PRESCRIPTION [...] Call your local pharmacy or go to http://[email or web address].Viddyad/[email or web address] to find one close to you.3.Make use of household items: Use cat litter or old coffee grounds to dispose medications if other options arenot available. Mix your drugs with these household products, seal them in an airtight container andthrow it into the garbage. Call [facility]: [phone] to be sure your drugs can be [...] am aware that I should contactmy doctor. Patient/Aboriginal Education Worker Coordinator Signature: Date/Time: Relationship to Patient: Witness Name/Signature: Date/Time: [id number] DEPRESSION, LATERAL LEADS PROLONGED QT INTERVAL Electronic Signature: MECCA SALEEM MD 03/29/2024 20:14:[address] [place] [address] 06-29-2024 Note ORIGINAL EXAMINATION: TWO XRAY VIEWS [...] Sign Date: 02/14/2024 1:50:18 AM Ordering Provider: [facility]05-10-2024 Discharge summary Author Papo Rodriguez [facility] December 25, 2023 10:23am Note Date/Time December 25, 2023 10:23 am [facility] Medical Records Department [address] [place] [address] Discharge Summary 12/25/23 1021 MR#: [id number] Acct: [id number] Name: JENNIFER YORK Rep #:[id number] : 1960 63 From: Papo Rodriguez DO PCP: Dr. Jennifer Villaseñor MD Status:ADM IN Location: [place] [address] Providers Date of Admission: 12/19/23 Primary Care [...] % (Auto) 57.5, Lymph % (Auto) 25.0, Kleberg % (Auto) 14.0 H, Eos % (Auto) [...] in before D/C Order can be placed): [facility] Facility Charges/Coding Visit Charges Inpatient E&M: 09781 Disch Hosp >30min 12/25/23 1023 <Electronically signed by Papo Rodriguez DO> Cosigner Signature (if applicable): CC: Dr. Papo Rodriguez DO; Dr. Jennifer Villaseñor MD~ Signed [facility] Work Phone: 1(335) 292-247605-10-2024 Discharge summary Author Papo [facility] December 25, 2023 10:21am Note Date/Time December 25, 2023 10:18 am [facility] Medical Records Department [address] [place] [address] Transfer to [facility] MR#: [id number] Acct: [id number] Name: JENNIFER YORK Rep #:[id number] : 1960 63 From: Papo Rodriguez DO PCP: Dr. Jennifer Villaseñor MD Status:ADM IN Certification of patient admission REQUIRED AT TIME OF ADMISSION. I CERTIFY THAT POST-HOSPITAL F SERVICES ARE REQUIRED TO BE GIVEN ON AN IN-PATIENT BASIS BECAUSE OF THE ABOVE NAMED PATIENT'S NEED FOR LONG TERM CARE ON A CONTINUING BASIS FOR THE CONDITION(S) FOR WHICH HE/SHE WAS RECEIVING IN-PATIENT HOSPITAL SERVICES PRIOR TO HIS/HER TRANSFER TO THE [facility]. 12/25/23 1021<Electronically signed by Papo Rodriguez DO> [...] in before D/C Order can be placed): Halfway Facility (1) Alcohol withdrawal Qualifiers: Complication of substance-induced condition: with delirium Qualified Code(s):F10.931 - Alcohol use, unspecified with withdrawal delirium 12/25/23 1021 <Electronically signed by Ppao Rodriguez DO> Cosigner Signature (if applicable): CC: Dr. Taylor Kaur MD; Dr. Janet Erazo MD; Dr. Jennifer Villaseñor MD ~ [facility] Work Phone: 1(883) 476-522405-09-2024 Progress note Author Papo Rodriguez [facility] December 24, 2023 9:19am Note Date/Time December 24, 2023 9:20am [facility] Medical Records Department [address] [place] [address] Progress Note - Hospitalist 12/24/23911 MR#: [id number] Acct: [id number] Name: JENNIFER YORK Rep #:[id number] : 1960 63 From: Papo Rodriguez DO PCP: Dr. Jennifer Villaseñor MD Status:ADM IN Location: [facility] UU355-2 Reason for Visit Reason for Visit: Diagnoses [...] Bilateral SCDs Charges/Coding Visit Charges Inpatient E&M: 14971 Subs Hosp L2 12/24/23918 <Electronically signed by Papo Rodriguez DO> Cosigner Signature (if applicable): CC: ~ Signed [facility] Work Phone: 1(975) 773-623705-08-2024 Progress note Author Papo Rodriguez [facility] December 23, 2023 2:53pm Note Date/Time December 23, 2023 7:50am [facility] Medical Records Department [address] [place] [address] Progress Note - Hospitalist 12/23/23 0747 MR#: [id number] Acct: [id number] Name: MATTEOJENNIFER PHELPS Rep #:[id number] : 1960 63 From: Papo Rodriguez DO PCP: Dr. Jennifer Villaseñor MD Status:ADM IN Location: [facility]3 HC581-1 Reason for Visit Reason for Visit: Diagnoses [...] Bilateral SCDs Charges/Coding Visit Charges Inpatient E&M: 12516 Subs Hosp L2 12/23/23 8516 <Electronically signed by Papo Rodriguez DO> Cosigner Signature (if applicable): CC: ~ Signed [facility] Work Phone: 1(657) 506-902105-07-2024 Progress note Author Papo Rodriguez [facility] December 22, 2023 3:14pm Note Date/Time December 22, 2023 7:59am [facility] Medical Records Department [address] [place] [address] Progress Note - Hospitalist 12/22/23 0752 MR#: [id number] Acct: [id number] Name: JENNIFER YORK Rep #:[id number] : 1960 63 From: Papo Rodriguez DO PCP: Dr. Jennifer Villaseñor MD Status:ADM IN [facility] Reason for Visit Reason for Visit: Diagnoses [...] 1650 650 / 650 Balance -1300 / -5802 972.3130 / 640.8333 Lab / Micro Data 12/22/23 [...] % (Auto) 60.4, Lymph % (Auto) 25.2, Kleberg % (Auto) 12.0 H, Eos % (Auto) [...] Bilateral SCDs Charges/Coding Visit Charges Inpatient E&M: 25712 Subs Hosp L2 12/22/23 2004 <Electronically signed by Papo Rodriguez DO> Cosigner Signature (if applicable): CC: ~ Signed [facility] Work Phone: 1(945) 512-113405-06-2024 Progress note Author Papo Rodriguez [facility] December 21, 2023 12:43pm Note Date/Time December 21, 2023 7:49am [facility] Medical Records Department [address] [place] [address] Progress Note - Hospitalist 12/21/23 0744 MR#: [id number] Acct: [id number] Name: MATTEOJENNIFER PHELPS Rep #:[id number] : 1960 63 From: Papo Rodriguez DO PCP: Dr. Jennifer Villaseñro MD Status:ADM IN Location: [facility] WK127-0 Reason for Visit Reason for Visit: Diagnoses [...] % (Auto) 62.9, Lymph % (Auto) 23.2, Kleberg % (Auto) 10.7 H, Eos % (Auto) [...] Bilateral SCDs Charges/Coding Visit Charges Inpatient E&M: 23369 Subs Hosp L2 12/21/23 4220 <Electronically signed by Papo Rodriguez DO> Cosigner Signature (if applicable): CC: ~ Signed [facility] Work Phone: 1(534) 344-665705-05-2024 Progress note Author Janet Erazo [facility] December 20, 2023 9:13am Note Date/Time December 20, 2023 7:36am [facility] Medical Records Department [address] [place] [address] Progress Note - Hospitalist 12/20/23 0736 MR#: [id number] Acct: [id number] Name: JENNIFER YORK Rep #:[id number] : 1960 63 From: Janet Erazo MD PCP: Dr. Jennifer Villaseñor MD Status:ADM IN Location: [facility] EK234-3 Reason for Visit Reason for Visit: Diagnoses [...] Neut % (Auto) 67.4, Lymph % (Auto)19.4, Kleberg % (Auto) 11.1 H, Eos % (Auto) [...] placed on thiamine andfolic acidConsultation placed to [facility] ? 12/20/2023 patient has tolerated [...] 52 Minutes Charges/Coding Visit Charges Inpatient E&M: 35469 Subs Hosp L3 12/20/23 0913 <Electronically signed by Janet Erazo MD> Cosigner Signature (if applicable): CC: ~ Signed [facility] Work Phone: 1(526) 343-619605-04-2024 Progress note Author Janet Erazo [facility] December 19, 2023 9:51am Note Date/Time December 19, 2023 7:23am [facility] Medical Records Department [address] [place] [address] Progress Note - Hospitalist 12/19/23 0718 MR#: [id number] Acct: [id number] Name: JENNIFER YORK Rep #:[id number] : 1960 63 From: Janet Erazo MD PCP: Dr. Jennifer Villaseñor MD Status:ADM IN Location: [facility] ZS655-7 Reason for Visit Reason for Visit: Diagnoses [...] 76.9 H, Lymph % (Auto) 9.5 L, Kleberg % (Auto) 12.5 H, Eos % (Auto) [...] Clarity Clear, Urine pH 6.0, Ur Specific Jamieson 1.020, Urine Protein 500 H, Urine Glucose [...] 72.1 H, Lymph % (Auto) 17.9 L, Kleberg % (Auto) 8.0, Eos % (Auto) 0.0, [...] placed on thiamine andfolic acidConsultation placed to [facility] 3. Hypokalemia ? Corrected per [...] 50 Minutes Charges/Coding Visit Charges Inpatient E&M: 78076 Subs Hosp L3 12/19/23 0964 <Electronically signed by Janet Erazo MD> Cosigner Signature (if applicable): CC: ~ Signed [facility] Work Phone: 1(510) 728-909405-04-2024 History and physical note Author Taylor White [facility] December 19, 2023 1:12am Note Date/Time December 19, 2023 12:47a m [facility] Medical Records Department [address] [place] [address] H&P Exam - Hospitalist 12/19/23 0043 MR#: [id number] Acct: [id number] Name: JENNIFER YORK Rep #:[id number] : 1960 63 From: Taylor Kaur MD PCP: Dr. Jennifer Villaseñor MD Status:REG ER Location: ED HPI - General General Date of Admission: 12/19/23 Date of Service: 12/19/23 Chief Complaint: Confusion. HPI Narrative The patient is a 63 y/o M w/ PMHx: Chronic thrombocytopenia, HTN, Tobacco use, EtOH abuse, Anxiety and Depression, Chronic neck pain with DDD who presents to the [facility] ED on 12/18/23 noted to have [...] 76.9 H, Lymph % (Auto) 9.5 L, Kleberg % (Auto) 12.5 H, Eos % (Auto) [...] Clarity Clear, Urine pH 6.0, Ur Specific Jamieson 1.020, Urine Protein 500 H, Urine Glucose [...] pain with DDD who presents to the [facility] ED on 12/18/23 noted to have [...] anemia, unclear exact chronicity: Admission hemoglobin 10.3, PMS373.6, baseline hemoglobin unknown is no recent comparisons [...] Full Code. Charges/Coding Visit Charges Inpatient E&M: 07305 Init Hosp L3 12/19/23 0112 <Electronically signed by Taylor Kaur MD> Cosigner Signature (if applicable): CC: Dr. Taylor Kaur MD; Dr. Jennifer Villaseñor MD~ Signed [facility] Work Phone: 1(752) 173-261905-04-2024 Discharge summary Author Brendan Amadeo [facility] December 19, 2023 1:00am Note Date/Time December 18, 2023 10:18p m [facility] Medical Records Department [address] [place] [address] Emergency Department Summary 12/18/23 MR#: [id number] Acct: [id number] Name: JENNIFER YORK Rep #:[id number] : 1960 63 From: Brendan Ham PCP: [...] others: EMS Consults: internal medicine (Dr. Kaur) [facility] Narrative: Patient was initially tachycardic, febrile, normotensive [...] to floor This note was generated with Zignals dictation software. It may contain incorrect words, [...] 76.9 H Lymph % (Auto) 9.5 L Kleberg % (Auto) 12.5 H Eos % (Auto) [...] Clarity Clear Urine pH 6.0 Ur Specific Jamieson 1.020 Urine Protein 500 H Urine Glucose [...] your Primary Care Provider. Call [facility] ([phone]) or report to the closest Emergency Room. Call 911 if necessary. 12/19/23 0100 <Electronically signed by Brendan Childs DO> Cosigner Signature (if applicable): CC: Dr. Jennifer Villaseñor MD ~ Signed [facility] Work Phone: 1(592) 252-273605-04-2024 Discharge summary Author Brendan Childs [facility] December 19, 2023 1:00am Note Date/Time December 18, 2023 10:18p m [facility] Medical Records Department [address] [place] [address] Emergency Department Summary 12/18/23 MR#: [id number] Acct: [id number] Name: JENNIFER YORK Rep #:[id number] : 1960 63 From: Brendan Ham PCP: [...] Oxygen Delivery Method Room Air Room Air [facility] Narrative Medical decision making narrative: HISTORY OF [...] others: EMS Consults: internal medicine (Dr. Kaur) [facility] Narrative: Patient was initially tachycardic, febrile, normotensive [...] to floor This note was generated with Zignals dictation software. It may contain incorrect words, [...] 76.9 H Lymph % (Auto) 9.5 L Kleberg % (Auto) 12.5 H Eos % (Auto) [...] Clarity Clear Urine pH 6.0 Ur Specific Jamieson 1.020 Urine Protein 500 H Urine Glucose [...] your Primary Care Provider. Call [facility] ([phone]) or report to the closest Emergency Room. Call 911 if necessary. 12/19/23 0100 <Electronically signed by Brendan Chidls DO> Cosigner Signature (if applicable): CC: Dr. Jennifer Villaseñor MD ~ Signed [facility] Work Phone: 1(756) 711-753303-18-2024 Hospital Discharge instructions Patient Education 11/01/2023 22:25:04 [...] www.aa.org. Raeann gives support to families. Call [phone], or go to www.al-anon.org. National [place] on Alcoholism and Drug Dependence (NCADD) has helpful resources. NCADD can be reached at [phone] and www.ncadd.org. Call 911 Call 911 if [...] upper belly that gets worse Repeated vomiting 3129-1786 [employer]. [address] [place], [place] [address]. All rights reserved. This information is not [...] in vomit, stools (black or red color) 5622-0446 [employer]. [address] [place] [address]. All rights reserved. This information is not intended as a substitute for professional medical care. Always follow yourhealthcare professional's instructions. [facility] 03-17-2024 Note Discharge Instructions Thank you for allowing [facility] to assist you with your healthcare needs. [...] www.aa.org. Raeann gives support to families. Call [phone], or go to www.al-anon.org. National [place] on Alcoholism and Drug Dependence (NCADD) has helpful resources. NCADD can be reached at [phone] and www.ncadd.org. Call 911 Call 911 if [...] upper belly that gets worse Repeated vomiting 9132-1601 [employer]. [address] [place] [address]. All rights reserved. This information is not [...] in vomit, stools (black or red color) 0723-8642 [employer]. [address] [place] [address]. All rights reserved. This information is not intended as a substitute for professional medical care. Always follow yourhealthcare professional's instructions. Additional Information VACCINATE! IT SAVES LIVES! Members of the community who have not yet received the COVID-19 vaccine and would like to receive it can visit one of [facility] vaccine clinics. There are many vaccine clinic locations within the [facility]. For locations and available times, please visit www.gettheshot.coronavirus.[place].gov/. It is important to note that some COVID mobile vaccine clinics are held outdoors and may be canceled in rainy or stormy conditions. To learn more about pediatric vaccinations (ages 5-11), we invite you to visit the [facility] webpage. https://www.[facility].org/pages/0425-Vvfhm-Dfscijypggi-Iclnnszgla-Btqaq-Uno stions.htmlTo learn more about the COVID-19 vaccine, we invite you to visit the CDC website for a list of frequently asked questions. https://www.cdc.gov/coronavirus/2019-ncov/vaccines/faq.html [facility] Patient Portal Access Instructions: Stay connected with your healthcare team and access your personal medical information anytime with the [facility] Patient Portal. If you would like a full copy of your medical records please contact the [facility] Medical Records Department Thursday through Thursday between 8a.m. and 4:30p.m. Please follow the directions below to access the portal: 1.Access the email account you provided upon registration to the [facility].2.Look for an invitation email from [facility].3.Open the email and access the invitation link: Accept Invitation to [facility]4.Fill in the required allen to create your [...] you will allow to register on the [facility] Patient Portal for access to your information. You can also access the [facility] Patient Portal on the Jelli louisa. Simply click on Health Records under Posibl. and then click on the [facility] logo. [...] Call your local pharmacy or go to http://VideoGenie.Viddyad/1B5Xe4a to find one close to you.3.Make use of household items: Use cat litter or old coffee grounds to dispose medications if other options arenot available. Mix your drugs with these household products, seal them in an airtight container andthrow it into the garbage. Call [facility]: [phone] to be sure your drugs can be [...] am aware that I should contactmy doctor. Patient/Aboriginal Education Worker Coordinator Signature: Date/Time: Relationship to Patient: Witness Name/Signature: Date/Time: [facility]03-17-2024 Note ORIGINAL EXAMINATION: CT OF THE [...] Sign Date: 11/01/2023 8:34:45 PM Ordering Provider: [facility]03-17-2024 Note ORIGINAL EXAMINATION: CT OF THE HEAD [...] Date: 11/01/2023 8:44:13 PM Ordering Provider: WANDY [facility]03-17-2024 Note ORIGINAL EXAMINATION: ONE XRAY VIEW OF [...] Date: 11/01/2023 8:24:57 PM [facility]ing [facility] Note ORIGINAL EXAMINATION: ONE XRAY VIEW [...] Date: 11/01/2023 8:24:05 PM Ordering Provider: WANDY [facility]03-17-2024 NoteSinus tachycardia Multiform ventricular premature complexes Borderline intraventricular conduction delay Abnormal R-wave progression, early transition Minimal ST depression, anterolateral leads Prolonged QT interval Electronic Signature: NATHANIEL CARUSO DO 11/01/2023 19:27:[address] [place] [address] 03-17-2024 Evaluation + Plan note Diagnostic Tests Pending * Urine Drug Screen (AO/AM Only) 11/01/23 Future Scheduled Tests Radiology* XR Spine Lumbar W/Obliques 4 Views 01/13/23 [facility] 01-31-2024 Note ORIGINAL EXAMINATION: CT OF [...] Date: 09/16/2023 2:33:00 PM Ordering Provider: JENNIFER [facility]12-02-2023 Hospital Discharge instructions Patient Education 07/18/2023 11:26:05 [...] shoulder or upper arm Fever or chills 2347-2139 [employer]. [address] [place] [address]. All rights reserved. This information is not [...] shoulder or upper arm Fever or chills 9887-5472 [employer]. [address] [place] [address], [place] [address]. All rights reserved. This information is not intended as a substitute for professional medical care. Always follow yourhealthcare professional's instructions. Follow Up Care 07/18/2023 09:44:39 With:JENNIFER VILLASEÑOR MD Address: [address] [facility] [address] [facility] [place], [place] [address]- When:2-4 days [facility] 12-02-2023 Note Discharge Instructions Thank you [...] 2-4 days Where: [address] [place] [address]- Allergies NKA Medications Please ask [...] shoulder or upper arm Fever or chills 5586-9244 [employer]. [address] [place] [address], [place] [address]. All rights reserved. This information is not [...] shoulder or upper arm Fever or chills 3814-7683 [employer]. [address] [place] [address], [place] [address]. All rights reserved. This information is not intended as a substitute for professional medical care. Always follow yourhealthcare professional's instructions. Additional Information VACCINATE! IT SAVES LIVES! Members of the community who have not yet received the COVID-19 vaccine and would like to receive it can visit one of [facility] vaccine clinics. There are many vaccine clinic locations within the [facility]. For locations and available times, please visit www.gettheshot.coronavirus.[place].gov/. It is important to note that some COVID mobile vaccine clinics are held outdoors and may be canceled in rainy or stormy conditions. To learn more about pediatric vaccinations (ages 5-11), we invite you to visit the [facility] webpage. https://www.[employer]iance [employer]s.org/pages/5142-Akdbf-Arskeslrwgq-Utpcxjgwxj-Xyaqu-Aji stions.htmlTo learn more about the COVID-19 vaccine, we invite you to visit the CDC website for a list of frequently asked questions. https://www.cdc.gov/coronavirus/2019-ncov/vaccines/faq.html [facility] Patient Portal Access Instructions: Stay connected with your healthcare team and access your personal medical information anytime with the [facility] Patient Portal. If you would like a full copy of your medical records please contact the [facility] Medical Records Department Thursday through Thursday between 8a.m. and 4:30p.m. Please follow the directions below to access the portal: 1.Access the email account you provided upon registration to the hospital.2.Look for an invitation email from [facility].3.Open the email and access the invitation link: Accept Invitation to [facility]4.Fill in the required allen to create your account. Sign into [email or web address].[email or web address] with your username and password that you [...] you will allow to register on the [facility] Patient Portal for access to your information. You can also access the [facility] Patient Portal on the Car Throttle. Simply click on Health Records under HealthData [...] Call your local pharmacy or go to http://VideoGenie.Viddyad/8X1Uf4e to find one close to you.3.Make use of household items: Use cat litter or old coffee grounds to dispose medications if other options arenot available. Mix your drugs with these household products, seal them in an airtight container andthrow it into the garbage. Call [facility]: [phone] to be sure your drugs can be [...] am aware that I should contactmy doctor. Patient/Aboriginal Education Worker Coordinator Signature: Date/Time: Relationship to Patient: Witness Name/Signature: Date/Time: [facility]12-02-2023 Note ORIGINAL EXAMINATION: 3 XRAY VIEWS [...] Date: 07/18/2023 11:13:46 AM [facility] Discharge instructions Patient Education 07/10/2023 [...] nausea before eating solid foods. Only take vcui-dap-lwxpuxx or prescription medicines for pain, discomfort, or [...] Document Reviewed: 05/24/2014 ExitCare Patient Information 2015 [employer]. This information is not intended to replace [...] This will gradually bring back your r uvim-pv-pvzrpq and shoulder strength. It will also lower [...] for a longer time may limit your ajcsm-pa-broivl at the shoulder joint. If you have [...] blue, numb or tingly Fever or chills 3846-8466 [employer]. [address] [place] [address], [place] [address]. All rights reserved. This information is not intended as a substitute for professional medical care. Always follow yourhealthcare professional's instructions. Follow Up Care 07/10/2023 05:15:41 With:JENNIFER BRASHER MD Address: [address] [place] [address] & [place] [address]- [phone] When:2-4 days [facility] 11-24-2023 Note Discharge Instructions Thank you for allowing [facility] to assist you with your healthcare needs. [...] BRASHER MD When Within 2-4 days Where: [address] [place] [address] & [place] [address]- [phone] Allergies NKA Medications Please ask your primary [...] nausea before eating solid foods. Only take xfue-ktf-bgevcvs or prescription medicines for pain, discomfort, or [...] worse. Document Released: 05/24/2014 Document Reviewed: 05/24/2014 [facility] Patient Information [address] [facility]. This information is not intended to [...] This will gradually bring back your r yaok-jq-qdtyza and shoulder strength. It will also lower [...] for a longer time may limit your izykn-zx-gkqfih at the shoulder joint. If you have [...] blue, numb or tingly Fever or chills [phone] [employer]. [address] [place] [address]. All rights reserved. This information is not intended as a substitute for professional medical care. Always follow yourhealthcare professional's instructions. Additional Information VACCINATE! IT SAVES LIVES! Members of the community who have not yet received the COVID-19 vaccine and would like to receive it can visit one of [facility] vaccine clinics. There are many vaccine clinic locations within the [facility]. For locations and available times, please visit www.[email or web address]/. It is important to note that some COVID mobile vaccine clinics are held outdoors and may be canceled in rainy or stormy conditions. To learn more about pediatric vaccinations (ages 5-11), we invite you to visit the [facility] webpage. https://www.[email or web address].org/pages/7281-Pbcgk-Vnmcnediedo-Emmijrnxro-Ugblk-Nox stions.htmlTo learn more about the COVID-19 vaccine, we invite you to visit the CDC website for a list of frequently asked questions. https://www.cdc.gov/coronavirus/2019-ncov/vaccines/faq.html [facility] Patient Portal Access Instructions: Stay connected with your healthcare team and access your personal medical information anytime with the [facility] Patient Portal. If you would like a full copy of your medical records please contact the [facility] Medical Records Department Thursday through Thursday between 8a.m. and 4:30p.m. Please follow the directions below to access the portal: 1.Access the email account you provided upon registration to the [facility].2.Look for an invitation email from [facility].3.Open the email and access the invitation link: Accept Invitation to [facility]4.Fill in the required allen to create your account. Sign into [email or web address] with your username and password that you [...] you will allow to register on the [facility] Patient Portal for access to your information. You can also access the [facility] Patient Portal on the [employer]. Simply click on Health Records under Posibl. and then click on the Furnish.co.uk logo. HOW TO SAFELY DISPOSE OF PRESCRIPTION [...] Call your local pharmacy or go to http://VideoGenie.Viddyad/9M8Ja8r to find one close to you.3.Make use of household items: Use cat litter or old coffee grounds to dispose medications if other options arenot available. Mix your drugs with these household products, seal them in an airtight container andthrow it into the garbage. Call [facility]: [phone] to be sure your drugs can be [...] am aware that I should contactmy doctor. Patient/Aboriginal Education Worker Coordinator Signature: Date/Time: Relationship to Patient: Witness Name/Signature: Date/Time: [facility]11-24-2023 Note ORIGINAL EXAMINATION: TWO XRAY VIEWS [...] 07/10/2023 7:21:59 AM Ordering Provider: [facility]11-24-2023 Note ORIGINAL EXAMINATION: TWO XRAY VIEWS OF [...] 07/10/2023 7:19:13 AM Ordering Provider: [facility]11-24-2023 Note ORIGINAL EXAMINATION: 3 XRAY VIEWS OF [...] 07/10/2023 6:05:42 AM Ordering Provider: [facility]05-30-2023 Evaluation + Plan note Future Scheduled Tests Radiology* XR Spine Lumbar W/Obliques 4 Views 01/13/23 [facility] Evaluation + Plan note Future Appointments Appointment Date:09/09/2021 09:50:00 AM Scheduled Provider:СВЕТЛАНА DURAN DO Location:[facility] Appointment Type:PC OV Appointment Date:09/23/2021 10:00:00 AM Scheduled Provider:SUMANTH TRACEY Location[facility] Appointment Type:CV OV [facility] Evaluation + Plan note Future Appointments Appointment Date:03/11/2022 10:30:00 AM Scheduled Provider:JENNIFER VILLASEÑOR MD Location:[facility] Appointment Type:PC Wellness Annual Future Scheduled Tests Laboratory* Prostate Specific Antigen 09/10/21 Radiology* XR Hand Minimum 3 Views Left 01/08/22 [facility] Evaluation + Plan note Future Appointments Appointment Date:09/16/2023 01:00:00 PM Scheduled Provider: Location:[facility] Appointment Type:CT Head or Brain w/ Contrast Appointment Date:09/16/2023 02:00:00 PM Scheduled Provider: Location:[facility] Appointment Type:CT Shoulder w/o Contrast Right Appointment Date:09/22/2023 04:00:00 PM Scheduled Provider:JENNIFER VILLASEÑOR MD Location:[facility] Appointment Type:PC OV Future Scheduled Tests Radiology* CT Head or Brain w/ Contrast 09/16/23 * CT Shoulder w/o Contrast Right 09/16/23 * XR Spine Lumbar W/Obliques 4 Views 01/13/23 [facility] Evaluation + Plan note Future Appointments Appointment Date:09/22/2023 04:00:00 PM Scheduled Provider:JENNIFER VILLASEÑOR MD Location:[facility] Appointment Type:PC OV Future Scheduled Tests Radiology* XR Spine Lumbar W/Obliques 4 Views 01/13/23 [facility] Evaluation + Plan note Future Appointments Appointment Date:06/17/2024 08:30:00 AM Scheduled Provider:JENNIFER VILLASEÑOR MD Location:[facility] Appointment Type:PC OV Follow Up Appointment Date:07/06/2024 10:00:00 AM Scheduled Provider: Location:[facility] Appointment Type:IR Facet Injection Future Scheduled Tests Radiology* IR Facet Injection 07/06/24 [facility] evaluation note* Diagnosis Onset Date Resolution Status Alcohol withdrawal acute [facility] Work Phone: Evaluation noteNo assessment information available [facility] Work Phone: History and physical note Author Taylor Kaur [facility] December 19, 2023 1:12am Note Date/Time December 19, 2023 12:47a m [facility] Medical Records Department [address] [place] [address] H&P Exam - Hospitalist 12/19/23 0043 MR#: [id number] Acct: [id number] Name: JENNIFER YORK Rep #:[id number] : 1960 63 From: Taylor Kaur MD PCP: Dr. Jennifer Villaseñor MD Status:REG ER Location: ED HPI - General General Date of Admission: 12/19/23 Date of Service: 12/19/23 Chief Complaint: Confusion. HPI Narrative The patient is a 63 y/o M w/ PMHx: Chronic thrombocytopenia, HTN, Tobacco use, EtOH abuse, Anxiety and Depression, Chronic neck pain with DDD who presents to the [facility] ED on 12/18/23 noted to have [...] 76.9 H, Lymph % (Auto) 9.5 L, Kleberg % (Auto) 12.5 H, Eos % (Auto) [...] Clarity Clear, Urine pH 6.0, Ur Specific Jamieson 1.020, Urine Protein 500 H, Urine Glucose [...] pain with DDD who presents to the [facility] ED on 12/18/23 noted to have [...] anemia, unclear exact chronicity: Admission hemoglobin 10.3, HGT714.6, baseline hemoglobin unknown is no recent comparisons [...] Full Code. Charges/Coding Visit Charges Inpatient E&M: 96716 Init Hosp L3 12/19/23 0112 <Electronically signed by Taylor Kaur MD> Cosigner Signature (if applicable): CC: Dr. Taylor Kaur MD; Dr. Jennifer Villaseñor MD~ Signed [facility] Work Phone: Hospital course Narrative No data available for this section [facility] Hospital Discharge instructions No data available for this section [facility] Progress note No data available for this section [facility] Reason for referral (narrative)No reason for referral information [facility] Work Phone: Summary Purpose Family History No Family History Records Found Relationship Condition Age at Onset Recorded Date/T leonora Unknown Family History?No pertinent history Unkno wn November 21, 2019 10:20pm Advance Directives No Advanced Directives Records Found Advance Directive Response Recorded Date/ Time Living Will No December 19, 2023 1: 55am Power of Desizing Machine Back Tender No December 19, 2023 1:55am Advance Directive Response Recorded Date/ Time Do you have a [facility] Power of Desizing Machine Back Tender? No February 03, 2025 11:57am Chief Complaint [...] section and content) DATE CREATED AUTHOR 06/10/2019 [facility] Saira Heard DATE CREATED AUTHOR AUTHOR'S ORGANIZ ATION 04/13/2024 [facility] ([place]) DATE CREATED AUTHOR AUTHOR'S ORGANIZ ATION 07/17/2024 [facility] DATE CREATED AUTHOR AUTHOR'S ORGANIZ ATION 11/10/2024 [facility] DATE CREATED AUTHOR AUTHOR'S ORGANIZ ATION 02/11/2025 [facility] Care Team (unrecognized sect ion and [...] Brendan Childs DO Emergency Provider Active Dr. aTylor Kaur MD Admit Provider, Other Provider Active [...] BE BASED ON THE PRIMARY CLINICAL RECORDS. [facility]. provides no warranty or guarantee of the accuracy or completeness of information in this document.
[2025-02-15] MEDS: 0.9% Normal Saline (1000mL) 1,000 ML 150 ML IV ×2 (01:44→08:54)
[2025-02-15] MEDS: Pantoprazole Sodium 80 MG in 0.9% Normal Saline (100mL Bag) 80 ML 10 MG CONT INF ×2 (01:46→13:39)
[2025-02-15 02:47] LABS: Ferritin 1166 ng/mL (37-417); Iron 109 ug/dL (65-175); Iron Binding Capacity,Unsat 101 ug/dL (228-428); Magnesium 1.5 mg/dL (1.5-2.2)
[2025-02-15] MEDS: 0.9% Saline Lock 10 ML Syringe IV ×2 (03:03→06:34)
[2025-02-15] MEDS: Lorazepam 2 MG/ML WCH Syringe 0.5 MG IV ×2 (03:03→08:54)
[2025-02-15 03:06] LABS: FOLATES,SERUM (FOLIC ACID) 5.54 ng/mL (4.60-34.80)
[2025-02-15 03:09] LABS: Iron Binding Capacity,Total 210 ug/dL (250-450)
[2025-02-15 05:00] LABS: Vitamin B12 1983 pg/mL (180-914)
--- NOTE | 2025-02-15 07:17 | PN.HOSP_ITS ---
Reason for Visit Reason for Visit: Diagnoses Anemia, unspecified (02/15/25) Decreased white blood cell count, unspecified (02/15/25) Alcohol abuse, uncomplicated (02/15/25) Alcohol use, unspecified with withdrawal, unspecified (02/15/25) Alcoholic cirrhosis of liver with ascites (02/15/25) Hematemesis (02/15/25) Unspecified abdominal pain (02/15/25) Nausea with vomiting, unspecified (02/15/25) Unspecified jaundice (02/15/25) Elevation of levels of liver transaminase levels (02/15/25) Tobacco use (02/15/25) Subjective Subjective Patient is a 64-year-old gentleman with history of chronic alcohol dependence who presented with abdominal pain with associated nausea and vomiting with coffee-ground emesis. Objective Data Objective Data Vital Signs: Vital Signs Temp Pulse Resp BP Pulse Ox O2 Del Method 98.2 F 71 11 L 128/80 H 100 Room Air 02/15/25 02:45 02/15/25 07:00 02/15/25 07:00 02/15/25 07:00 02/15/25 07:00 02/15/25 07:00 Oxygen Delivery Method Room Air Weight: 82.1 kg Body Mass Index (BMI) 23.8 Intake & Output: Intake and Output for Last 24 Hours 02/13/25 02/14/25 02/15/25 23:59 23:59 23:59 Intake Total 1000 / 1000 100 / 100 Output Total 500 / 500 Balance 1000 / 1000 -400 / -400 Lab / Micro Data 02/15/25 06:27 02/15/25 06:27 Labs: Laboratory Results - last 24 hr 02/14/25 16:55: WBC 3.1 L, RBC 2.99 L, Hgb 10.1 L, Hct 30.2 L, MCV 101.0 H, MCH 33.8 H, MCHC 33.4, RDW Std Deviation 60.1 H, RDW Coeff of Saloni 16.2 H, Plt Count 39 L*, MPV 10.0, Immature Gran % (Auto) 1.300 H, Neut % (Auto) 59.7, Lymph % (Auto) 26.5, Miner % (Auto) 11.2 H, Eos % (Auto) 0.3, Baso % (Auto) 1.0, Absolute Neuts (auto) 1.9 L, Absolute Lymphs (auto) 0.83, Nucleated RBC % 0, Sodium 137, Potassium 3.4, Chloride 97 L, Carbon Dioxide 14.0 L, Anion Gap 26 H, BUN 9, Creatinine 0.71, Est GFR (MDRD) Non-Af 103, BUN/Creatinine Ratio 12.6, Glucose 89, Calcium 9.0, Magnesium 1.5, Iron 109, TIBC 210 L, Iron Saturation 51.9, U nsaturated IBC 101 L, Ferritin 1166 H, Total Bilirubin 3.80 H 02/14/25 16:55: Total Bilirubin 3.77 H, Direct Bilirubin 2.47 H, AST 259 H 02/14/25 16:55: AST 263 H, ALT 82 H 02/14/25 16:55: ALT 77 H, Alkaline Phosphatase 129 02/14/25 16:55: Alkaline Phosphatase 129, Total Protein 9.1 H 02/14/25 16:55: Total Protein 9.0 H, Albumin 3.4 02/14/25 16:55: Albumin 3.6, Globulin 5.7 H 02/14/25 16:55: Globulin 5.4 H, Albumin/Globulin Ratio 0.6 L, Lipase 64, Vitamin B12 1983 H 02/15/25 02:11: Serum Folate 5.54, Blood Type O POSITIVE, Antibody Screen NEGATIVE Radiography Diagnostic Testing: Radiology Impression Abdomen/Pelvis CT 02/14/25 20:00 IMPRESSION: 1. No significant interval change compared to CT on 02/03/2025. Heterogeneous predominantly hypodense liver possibly representing steatosis, and small volume of perihepatic and pelvic ascites, are unchanged. 2. Mild wall thickening involving the terminal ileum, cecum, and ascending colon, which could be the result of portal colopathy, though terminal ileitis/colitis could appear similar. 3. Multiple adrenal nodules measuring up to 2.2 cm. Of note, there is a nodule interposed between the IVC and right kidney which may be adrenal in origin or an enlarged lymph node. Recommend nonemergent adrenal CT for further evaluation. 4. Subacute to chronic appearing fractures of the lower right-sided ribs, correlate with exam. There are healed appearing fractures of the left-sided ribs. Reading Location: [facility] Gallbladder Ultrasound 02/14/25 21:14 IMPRESSION: 1. Possible gallbladder sludge, though reverberation artifact could appear similar. No stones or findings for acute cholecystitis. 2. Heterogeneous appearance of the liver parenchyma with hepatic steatosis and hepatomegaly, unchanged. 3. Perihepatic ascites. 4. Normal caliber common bile duct measuring 5 mm. Reading Location: [facility] Physical Exam Narrative GENERAL: cooperative HEENT: Atraumatic; normocephalic EYES; Anicteric, Normal Conjunctiva NECK; supple, normal thyroid, RESPIRATORY: Diminished to auscultation CARDIOVASCULAR: Regular S1 S2, GI: soft, normoactive bowel sounds, : No Renal angle tenderness; EXTREMITIES: No edema, no clubbing, MUSCULOSKELETAL: no muscle wasting NEURO: Awake; no lateralizing signs. SKIN: No Rash PSYCH; Flat affect Assessment & Plan Assessment/Plan (1) Intractable vomiting with nausea: (2) Dark emesis: (3) Intractable abdominal pain: (4) Alcohol abuse: (5) Alcohol withdrawal: QUALIFIERS: Complication of substance-induced condition: with unspecified complication Qualified Code(s): F10.939 - Alcohol use, unspecified with withdrawal, unspecified (6) Elevated bilirubin: (7) Transaminitis: (8) Cirrhosis: QUALIFIERS: Ascites presence: with ascites Hepatic cirrhosis type: alcoholic cirrhosis Qualified Code(s): K70.31 - Alcoholic cirrhosis of liver with ascites (9) Leukopenia: QUALIFIERS: Leukopenia type: unspecified Qualified Code(s): D 72.819 - Decreased white blood cell count, unspecified (10) Anemia: QUALIFIERS: Anemia type: unspecified type Qualified Code(s): D 64.9 - Anemia, unspecified (11) Tobacco use: PLAN: Plan Patient is a 64-year-old gentleman with history of chronic alcohol dependence who presented with abdominal pain with associated nausea and vomiting with coffee-ground emesis. 1. Upper GI bleed ? Suspected to be secondary to gastritis from patient chronic alcohol use exacerbated by his low platelet counts. Patient was admitted to the intensive care unit symptom management started with antinausea medication as well as pain meds and Protonix. Consult was placed to Dr. Quesada with GI 2. Chronic alcohol dependence with at significant risk for alcohol withdrawal. - treatment with phenobarb taper in addition to adjuvant medications including gabapentin, Bentyl, hydroxyzine and clonidine as needed for alcohol withdrawal symptoms. Patient was also placed on thiamine and folic acid , consultation placed to [facility] counseling services 3. Severe pancytopenia ? With hypokalemia, leukopenia as well as anemia. Daily monitoring with CBC with differential ordered 4. Hypokalemia ? Corrected per protocol repeat labs ordered in a.m. for subsequent eval also ordered magnesium and phosphorus level 5. Hypertension - Blood pressure controlled, home medications continued with dose adjustment as needed 6. Acute transaminitis ? Patient picture consistent with alcohol dependence will monitor 7. Colitis ? CT of the abdomen and pelvis obtained did show Mild wall thickening involving the terminal ileum, cecum, and ascending colon, which could be the result of portal colopathy, though terminal ileitis/colitis could appear similar. Will continue with symptom managed 8.Subacute to chronic appearing fractures of the lower right-sided ribs, secondary to previous falls There are healed appearing fractures of the left-sided ribs. Treatment initiated with incentive spirometry as well as pain meds 9. Lung nodule and adrenal nodules ? Patient informed plan is for patient to follow-up with primary care physician for subsequent imaging for follow-up 10. Tobacco dependence - Counseled on cessation, offered nicotine patch for tobacco cravings 10. DVT prophylaxis ? Bilateral SCDs Time spent in the patient's overall evaluation,decision-making process, review of diagnostic data, adjustment of management, discussion with other providers, nursing nursing and ancillary staff involved in patient's care documentation, 35 Minutes Charges/Coding Visit Charges Inpatient E&M: 83174 PROLNG IP/OBS E/M EA 15 MIN Multi Select Codes Visit Charges Visit Charges: 92389 PROLNG IP/OBS E/M EA 15 MIN (Total prolonged inpatient time spent 35 minutes)
[2025-02-15 07:30] LABS: Hematocrit 29.4 % (40-54); Hemoglobin 9.7 g/dL (13.0-16.5); Immature Granulocytes Count 0.040 X10^3/uL (0.0-0.0); Mean Corp Hgb Conc 33.0 g/dL (32-36); Mean Corpuscular Volume 103.5 fL (80-94); Mean Platelet Vol. 10.8 fl (6.2-12.0); NRBC Flagged by Analyzer 0 % (0-5); POSITIVE COUNT YES; POSITIVE DIFFERENTIAL YES; Platelet Count 35 K/mm3 (150-450); RBC Distribution Width CV 16.5 % (11.6-14.6); RBC Distribution Width SD 62.6 fl (35.1-43.9); Red Blood Count 2.84 M/mm3 (4.6-6.2); White Blood Count 2.7 K/mm3 (4.4-11.0)
[2025-02-15 07:50] LABS: Differential Indicated SCAN CRITERIA MET
[2025-02-15 08:02] LABS: AST(SGOT) 222 U/L (<=37); Alanine Aminotransfer ALT/SGPT 74 U/L (<=46); Albumin, Serum 3.4 g/dL (3.4-4.8); Alkaline Phosphatase 123 U/L (40-129); Anion Gap 25 (5-15); BUN 7 mg/dL (4-19); BUN/Creat Ratio 9.7 RATIO (10-20); Calcium,Total 8.8 mg/dL (7.6-11.0); Carbon Dioxide 14.2 mmol/L (21.0-32.0); Chloride 99 mmol/L (98-108); Cholesterol 115 mg/dL (<=200); Estimated Creatinine Clearance 110.97 ml/min (50-250); Globulin 5.4 g/dL (2.2-4.2); Glucose 115 mg/dL (70-99); Low Density Lipoprotein Calc. 63 mg/dL; Potassium 3.5 mmol/L (3.3-5.1); Triglycerides 125 mg/dL; Very Low Density Lipoprotein 25 mg/dL (5-40); cholesterol:hdl ratio screen 4.21
[2025-02-15 08:44] LABS: Differential Comment SCANNED
--- NOTE | 2025-02-15 10:16 | CASEMGMT ---
JAIDEN HANSON Assessment Face to Face with patient for initial transition planning/care coordination assessment. RN MARGIE introduced self and role at [facility], pt voices understanding. Pt is A&Ox3 and is resting comfortably in bed. Pt was able to answer most of this JAIDEN HANSON questions for assessment but pt appears somnolent and did not participate in the entire assessment. SW also plans to see the pt regarding EtOH abuse. Care providers, pharmacy, and demographics verified. Admitting dx: Intractable N/V, Dark Emesis, EtOH abuse LACE Strata: 1 PCP: Rajeev Villaseñor Specialists: Denies [facility] Insurance: [facility] A/B Prescription Benefit: Pt states that he does but cannot recall what it is through LNOK: Veronica ( - Currently in the process of a divorce), Demetria (Mother) Living Arrangements: Pt states that he lives alone in a single story home ADLs/IADLs: Pt states that he is indep and denies concerns. Current 6-Click score is 19. No PT ordered. Transportation: Self. Pt would not answer who else can provide him with transportation DME: Denies at this time HHC/SNF: Noted pt has a hx @ [facility]. EtOH: Pt would not answer how much he has been drinking lately. Per chart review, pt has been drinking anywhere from 2 drinks/day to a fifth of vodka. SW to follow. Pt?s goal: TBD Plan: TBD. Anticipate eventual DC home once medically ready. CM and SW to follow up once pt is more awake and willing to partake in DC planning. SW notified. Care Management to follow. Saadia Gonzalez RN, CM
--- NOTE | 2025-02-15 10:16 | CASEMGMT ---
JAIDEN HANSON Assessment Face to Face with patient for initial transition planning/care coordination assessment. RN MARGIE introduced self and role at [facility], pt voices understanding. Pt is A&Ox3 and is resting comfortably in bed. Pt was able to answer most of this JAIDEN HANSON questions for assessment but pt appears somnolent and did not participate in the entire assessment. SW also plans to see the pt regarding EtOH abuse. Care providers, pharmacy, and demographics verified. Admitting dx: Intractable N/V, Dark Emesis, EtOH abuse LACE Strata: 1 PCP: Rajeev Villaseñor Specialists: Denies [facility] Insurance: [facility] A/B Prescription Benefit: Pt states that he does but cannot recall what it is through LNOK: Veronica ( - Currently in the process of a divorce), Demetria (Mother) Living Arrangements: Pt states that he lives alone in a single story home ADLs/IADLs: Pt states that he is indep and denies concerns. Current 6-Click score is 19. No PT ordered. Transportation: Self. Pt would not answer who else can provide him with transportation DME: Denies at this time HHC/SNF: Noted pt has a hx @ [facility]. EtOH: Pt would not answer how much he has been drinking lately. Per chart review, pt has been drinking anywhere from 2 drinks/day to a fifth of vodka. SW to follow. Pt?s goal: TBD Plan: TBD. Anticipate eventual DC home once medically ready. CM and SW to follow up once pt is more awake and willing to partake in DC planning. SW notified. Care Management to follow. Saadia Gonzalez RN, CM
[2025-02-15] MEDS: Lactated Ringers 1,000 ML 15 ML IV (11:44)
--- NOTE | 2025-02-15 12:49 | CON.PCM.GI_ITS ---
HPI Consult Data Date of Consult: 02/15/25 HPI Narrative Reason for Consultation: hemetemesis HPI Narrative: JENNIFER MADRIGAL, is a [id number] male with past medical history of pancytopenia secondary to alcoholic cirrhosis complicated by episodes of ascites, encephalopathy but no previous history of GI bleed. He does not know if he has any history of hepatitis C or chronic hepatitis B. He has not been checked for HIV as per the patient. He presents to the ER with worsening abdominal distention and multiple episodes of vomiting. He got a CT scan of the abdomen pelvis that showed diffuse ascites with a cirrhotic liver and splenomegaly. [facility] Medical History Chronic neck pain Thrombocytopenia Tobacco use Anxiety and depression ETOH abuse Alcohol dependence Hypertension Alcoholism Home Medications ?Medication ?Instructions ?Recorded ?Last Taken ?Type NK 02/15/25 Unknown History Allergy/AdvReac Type Severity Reaction Status Date / Time No Known Allergies Allergy Verified 02/14/25 16:46 Family History no significant family his Surgical History No history of previous surgery Social History household members: family Smoking Status: Current every day smoker tobacco type: cigarettes alcohol intake: current alcohol intake frequency: 3 or more drinks per day Alcohol type: hard liquor details: Usually drinks daily, vodka, unclear exact amount, last drink 2 days prior. substance use type: does not use ROS ROS Narrative Review of Systems: Constitutional: Patient denies fever or chills. Eyes: Patient denies changes in vision or discharge from eyes. ENT: Patient denies runny nose, sore throat or ear pain. Resp: Patient denies shortness of breath or cough. CV: Patient denies chest pain, palpitations, heart racing or lower extremity edema. GI: Patient admits to abdominal pain that is generalized and cramping in nature with nausea and vomiting with dark emesis as per HPI. : Patient denies dysuria or hematuria. MSK: Patient denies arthralgias or myalgias. Skin: Patient denies rash, abscess or wounds. Psych: Patient denies symptoms of uncontrolled depression or anxiety. Neuro: Patient denies headache, paresthesias or focal neurologic deficits. Allergy: Patient denies lip swelling, tongue swelling or urticaria. Hematology: Patient admits to dark emesis as per HPI. Endocrinology: Patient denies polyuria, polydipsia, polyphagia or heat/cold intolerance. 14 point ROS otherwise negative except for positives noted above in HPI. Physical Exam Const alert, oriented x3, no apparent distress and healthy appearing General Appearance: cooperative GI normal to inspection, nondistended, normoactive bowel sounds, soft to palpation, non-tender and non-distended Percussion: normal to percussion Rectal Exam: deferred Lab / Micro Data 02/15/25 06:27 02/15/25 06:27 Labs: Laboratory Results - last 24 hr 02/14/25 16:55: WBC 3.1 L, RBC 2.99 L, Hgb 10.1 L, Hct 30.2 L, MCV 101.0 H, MCH 33.8 H, MCHC 33.4, RDW Std Deviation 60.1 H, RDW Coeff of Saloni 16.2 H, Plt Count 39 L*, MPV 10.0, Immature Gran % (Auto) 1.300 H, Neut % (Auto) 59.7, Lymph % (Auto) 26.5, Baker % (Auto) 11.2 H, Eos % (Auto) 0.3, Baso % (Auto) 1.0, Absolute Neuts (auto) 1.9 L, Absolute Lymphs (auto) 0.83, Nucleated RBC % 0, Sodium 137, Potassium 3.4, Chloride 97 L, Carbon Dioxide 14.0 L, Anion Gap 26 H, BUN 9, Creatinine 0.71, Est GFR (MDRD) Non-Af 103, BUN/Creatinine Ratio 12.6, Glucose 89, Calcium 9.0, Magnesium 1.5, Iron 109, TIBC 210 L, Iron Saturation 51.9, U nsaturated IBC 101 L, Ferritin 1166 H, Total Bilirubin 3.80 H 02/14/25 16:55: Total Bilirubin 3.77 H, Direct Bilirubin 2.47 H, AST 259 H 02/14/25 16:55: AST 263 H, ALT 82 H 02/14/25 16:55: ALT 77 H, Alkaline Phosphatase 129 02/14/25 16:55: Alkaline Phosphatase 129, Total Protein 9.1 H 02/14/25 16:55: Total Protein 9.0 H, Albumin 3.4 02/14/25 16:55: Albumin 3.6, Globulin 5.7 H 02/14/25 16:55: Globulin 5.4 H, Albumin/Globulin Ratio 0.6 L, Lipase 64, Vitamin B12 1983 H 02/15/25 02:11: Serum Folate 5.54, Blood Type O POSITIVE, Antibody Screen NEGATIVE 02/15/25 06:27: WBC 2.7 L, RBC 2.84 L, Hgb 9.7 L, Hct 29.4 L, MCV 103.5 H, MCH 34.2 H, MCHC 33.0, RDW Std Deviation 62.6 H, RDW Coeff of Saloni 16.5 H, Plt Count 35 L*, MPV 10.8, Immature Gran % (Auto) 1.500 H, Neut % (Auto) 73.5 H, Lymph % (Auto) 12.5 L, Baker % (Auto) 11.4 H, Eos % (Auto) 0.4, Baso % (Auto) 0.7, Absolute Neuts (auto) 2.0, Absolute Lymphs (auto) 0.34 L, Nucleated RBC % 0, Differential Comment SCANNED, Diff Path Review December, Sodium 138, Potassium 3.5, Chloride 99, Carbon Dioxide 14.2 L, Anion Gap 25 H, BUN 7, Creatinine 0.76, Estim Creat Clear Calc 110.97, Est GFR (MDRD) Non-Af 100, BUN/Creatinine Ratio 9.7 L, Glucose 115 H, Calcium 8.8, Phosphorus 2.4 L, Total Bilirubin 4.30 H, AST 222 H, ALT 74 H, Alkaline Phosphatase 123, Total Protein 8.7 H, Albumin 3.4, G lobulin 5.4 H, Albumin/Globulin Ratio 0.6 L, Triglycerides 125, Cholesterol 115, LDL Cholesterol, Calc 63, VLDL Cholesterol 25, HDL Cholesterol 27 L, Cholesterol/HDL Ratio 4.21, TSH 2.300 Imaging Radiology Impression Abdomen/Pelvis CT 02/14/25 20:00 IMPRESSION: 1. No significant interval change compared to CT on 02/03/2025. Heterogeneous predominantly hypodense liver possibly representing steatosis, and small volume of perihepatic and pelvic ascites, are unchanged. 2. Mild wall thickening involving the terminal ileum, cecum, and ascending colon, which could be the result of portal colopathy, though terminal ileitis/colitis could appear similar. 3. Multiple adrenal nodules measuring up to 2.2 cm. Of note, there is a nodule interposed between the IVC and right kidney which may be adrenal in origin or an enlarged lymph node. Recommend nonemergent adrenal CT for further evaluation. 4. Subacute to chronic appearing fractures of the lower right-sided ribs, correlate with exam. There are healed appearing fractures of the left-sided ribs. Reading Location: [facility] Gallbladder Ultrasound 02/14/25 21:14 IMPRESSION: 1. Possible gallbladder sludge, though reverberation artifact could appear similar. No stones or findings for acute cholecystitis. 2. Heterogeneous appearance of the liver parenchyma with hepatic steatosis and hepatomegaly, unchanged. 3. Perihepatic ascites. 4. Normal caliber common bile duct measuring 5 mm. Reading Location: [facility] Assessment & Plan Assessment/Plan (1) Cirrhosis: QUALIFIERS: Hepatic cirrhosis type: alcoholic cirrhosis Ascites presence: with ascites Qualified Code(s): K70.31 - Alcoholic cirrhosis of liver with ascites (2) Dark emesis: (3) Transaminitis: (4) Alcohol abuse: (5) Intractable abdominal pain: (6) Intractable vomiting with nausea: PLAN: 64-year-old andi with cirrhosis complicated by ascites, encephalopathy, pancytopenia who presents with abdominal distention and nausea vomiting that turned into coffee-ground emesis. He will need to undergo an upper endoscopy. I do not think he needs PPI drip at this time but I would recommend ceftriaxone 1 g IV daily. I do not think he needs octreotide at this time. He will also need to undergo large-volume therapeutic paracentesis and diagnostic paracentesis. He was explained alternatives, risk and benefits include not withstanding bleeding, infection, sepsis, perforation, need for more surgery . He will then ASA of 3. Charges/Coding Visit Charges Inpatient E&M: 94200 Init Hosp L3
--- NOTE | 2025-02-15 12:59 | PCM.PRE.AN2 ---
ASA Classification* ASA Classification ASA Classification: 4 and E Assessment & Plan Anesthesia* Anesthesia Assessment Anesthesia Assessment: Discussed sedation and/or anesthesia options, risks, benefits, and alternatives with patient/parents/legal guardian/POA. Questions invited. The patient/parents/legal guardian/POA seems to understand and agrees to proceed with anesthesia plan. Reviewed the physical assessment, medical history, allergy history and patient home medications list prior to surgery/procedure/anesthetic and documented any changes. Performed airway and anesthesia risk assessments. Anesthesia Type Anesthesia Type: MAC History Source History Obtained from:: Patient and Chart Anesthesia Focused Assessment* Temperature: 98.2 F Pulse Rate: 57 Blood Pressure: 111/64 Respiratory Rate: 12 Pulse Ox: 98 Oxygen Delivery Method: Room Air Airway Assessment Mouth opens: >3 cm Mallampati Score: IV Teeth Condition: Intact Neck Range of motion (ROM): Limited ROM (Somewhat Decreased) Labs Anesthesia Preop lab: CBC WBC 2.7 K/mm3 (4.4-11.0) L 02/15/25 06:02/15/25 RBC 2.84 M/mm3 (4.6-6.2) L 02/15/25 06:02/15/25 Hgb 9.7 g/dL (13.0-16.5) L 02/15/25 06:02/15/25 Hct 29.4 % (40-54) L 02/15/25 06:02/15/25 Plt Count 35 K/mm3 (150-450) L* 02/15/25 06:02/15/25 CHEMISTRY Potassium 3.5 mmol/L (3.3-5.1) 02/15/25 06:02/15/25 Sodium 138 mmol/L (133-145) 02/15/25 06:02/15/25 Magnesium 1.5 mg/dL (1.5-2.2) 02/14/25 16:55 02/14/25 Phosphorus 2.4 mg/dL (2.7-4.5) L 02/15/25 06:02/15/25 BUN 7 mg/dL (4-19) 02/15/25 06:02/15/25 Creatinine 0.76 mg/dL (0.70-1.20) 02/15/25 06:27 02/15/25 Glucose 115 mg/dL (70-99) H 02/15/25 06:27 02/15/25 TSH 2.300 uIU/mL (0.300-4.200) 02/15/25 06:27 02/15/25 COAG PT 11.0 SECONDS (11.7-14.9) L 11/21/19 20:30 11/21/19 Pre-Assessment Diagnosis/Proposed Procedure Planned Operative Procedure(s): Esophagogastroduodenoscopy with control of bleeding. Anesthesia History Anesthesia History - vp customer development: Anesthesia History - vp customer development Hx Hospitalization Any Problems With Anesthesia No 02/15/25 09:53 Cholinesterase deficiency No 02/15/25 09:53 You/Your Family Experience No 02/15/25 09:53 fever (hyperthermia) with Relationship Recent Exposure to Contagious No 02/15/25 09:53 Disease Does patient have nerve No 02/15/25 09:53 stimulator Patient instructed to have No 02/15/25 09:53 device shut off --Does patient have Pacemaker No 02/15/25 09:53 or ICD? When Was Last Pacemaker Check QUESTION #4 FULL TEXT: You/Your Family Experience fever (hyperthermia) with Anesthesia Last Oral Intake Last Oral intake: Last Oral Intake NPO since 00:00 02/15/25 09:53 Meds taken in AM with sips of No 02/15/25 09:53 water? Meds patient instructed to take am of surgery PONV PONV - vp customer development: PONV - vp customer development Female HX of Motion Sickness HX of N/V After Surgery Non-Smoker Duration of Surgery greater than 60 minutes Number of Risk Factors PONV Score Height & Weight Height & Weight: Anesthesia: Height & Weight Height 6 ft 1 in 02/15/25 10:05 Weight: 82.1 kg 02/15/25 10:05 Body Mass Index (BMI) 23.8 02/15/25 09:53 Respiratory Assessment Respiratory Assessment - vp customer development: Respiratory Tract Infection Hx - vp customer development Hx Respiratory Tract Infection No 02/15/25 09:53 STOP Sleep Apnea STOP Sleep Apnea - vp customer development: STOP Sleep Apnea - vp customer development Hx Hypertension Yes 02/15/25 02:45 Hx Sleep Apnea No 02/15/25 02:45 CPAP BIPAP Do you snore loudly (louder No 02/15/25 02:45 than talking or can be heard Do you often feel tired/ No 02/15/25 02:45 fatigued/ sleepy during daytime? Has anyone observed you stop No 02/15/25 02:45 breathing during sleep? STOP Results Negative 02/15/25 02:45 QUESTION #5 FULL TEXT : Do you snore loudly (louder than talking or can be heard through closed doors)? 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 Specify any problems Hx of Preganancy in last 3 N/A 02/15/25 02:45 Months Nurse Filling Out Transfusion TDEVEREAU 02/15/25 02:45 & Questions: Date: 02/15/25 02/15/25 02:45 Time: 02:50 02/15/25 02:45 Patient unable to answer at this time (ie. confused, unrespo /Reproduction History /Reproductive History - vp customer development: /Reproductive Hx- vp customer development Hx Now No 02/15/25 09:53 Gestational Age (in weeks): EDC: Hx Hx Para Hx Section SAB Active Medications Active Medications: Current Medications Generic Name Dose Route Start Last Admin Trade Name Freq PRN Reason Stop Dose Admin Sodium Chloride 1,000 mls @ 150 mls/hr 02/15/25 00:45 02/15/25 08:54 IV 02/15/25 14:04 150 mls/hr .[id number] MARCELLO Administration Pantoprazole Sodium 80 mg/ 100 mls @ 10 mls/hr 02/15/25 00:50 02/15/25 01:46 Sodium Chloride CONT INF 10 mls/hr Q10H MARCELLO Administration Sodium Chloride 500 mls @ 15 mls/hr 02/15/25 02:47 IV PRN PRN Blood Transfusion Sodium Chloride 250 mls @ 15 mls/hr 02/15/25 02:47 IV .[id number] PRN Saline Flush Sodium Chloride 250 mls @ 15 mls/hr 02/15/25 02:47 IV .[id number] PRN Additional IVPB Infusion Lactated Ringer's 1,000 mls @ 15 mls/hr 02/15/25 11:45 02/15/25 11:44 IV 15 mls/hr .Q48H MRACELLO Administration Lorazepam 0.5 mg 02/15/25 02:44 02/15/25 08:54 Lorazepam 2 Mg/Ml Wch Syringe IV 0.5 mg Q4H PRN PRN Administration ANXIETY/AGITATION Morphine Sulfate 2 mg 02/15/25 03:22 Morphine 2 Mg/Ml Syringe IV Q4H PRN PRN Pain Score 6-10 Nicotine 14 mg 02/15/25 10:00 Nicotine 14 Mg Patch TD DAILY MARCELLO Ondansetron HCl 4 mg 02/15/25 02:44 02/15/25 03:02 Ondansetron 4 Mg/2 Ml Vial IV 4 mg Q4H PRN PRN Administration NAUSEA/VOMITING Phenobarbital 100 mg 02/15/25 00:45 02/15/25 06:30 Phenobarbital Sodium 130 Mg/Ml Vial IV 100 mg TID MARCELLO Administration Promethazine HCl 12.5 mg 02/15/25 02:44 Promethazine 25 Mg/Ml Syringe IM Q4H PRN PRN BREAKTHROUGH NAUSEA Sodium Chloride 10 - 40 ml 02/15/25 02:47 02/15/25 06:34 0.9% Saline Lock 10 Ml Syringe IV 20 ml UD PRN Administration SALINE FLUSH PFSH Medical History Chronic neck pain Thrombocytopenia Tobacco use Anxiety and depression ETOH abuse Alcohol dependence Hypertension Alcoholism Home Medications ?Medication ?Instructions ?Recorded ?Last Taken ?Type NK 02/15/25 Unknown History Allergy/AdvReac Type Severity Reaction Status Date / Time No Known Allergies Allergy Verified 02/14/25 16:46 Family History no significant family his Surgical History No history of previous surgery Social History household members: family Smoking Status: Current every day smoker tobacco type: cigarettes alcohol intake: current alcohol intake frequency: 3 or more drinks per day Alcohol type: hard liquor details: Usually drinks daily, vodka, unclear exact amount, last drink 2 days prior. substance use type: does not use Review of Systems (Anesthesia) ROS Narrative System reviewed and no additional complaints, except as documented.
--- NOTE | 2025-02-15 12:59 | PCM.PRE.AN2 ---
ASA Classification* ASA Classification ASA Classification: 4 and E Assessment & Plan Anesthesia* Anesthesia Assessment Anesthesia Assessment: Discussed sedation and/or anesthesia options, risks, benefits, and alternatives with patient/parents/legal guardian/POA. Questions invited. The patient/parents/legal guardian/POA seems to understand and agrees to proceed with anesthesia plan. Reviewed the physical assessment, medical history, allergy history and patient home medications list prior to surgery/procedure/anesthetic and documented any changes. Performed airway and anesthesia risk assessments. Anesthesia Type Anesthesia Type: MAC History Source History Obtained from:: Patient and Chart Anesthesia Focused Assessment* Temperature: 98.2 F Pulse Rate: 57 Blood Pressure: 111/64 Respiratory Rate: 12 Pulse Ox: 98 Oxygen Delivery Method: Room Air Airway Assessment Mouth opens: >3 cm Mallampati Score: IV Teeth Condition: Intact Neck Range of motion (ROM): Limited ROM (Somewhat Decreased) Labs Anesthesia Preop lab: CBC WBC 2.7 K/mm3 (4.4-11.0) L 02/15/25 06:02/15/25 RBC 2.84 M/mm3 (4.6-6.2) L 02/15/25 06:02/15/25 Hgb 9.7 g/dL (13.0-16.5) L 02/15/25 06:02/15/25 Hct 29.4 % (40-54) L 02/15/25 06:02/15/25 Plt Count 35 K/mm3 (150-450) L* 02/15/25 06:02/15/25 CHEMISTRY Potassium 3.5 mmol/L (3.3-5.1) 02/15/25 06:02/15/25 Sodium 138 mmol/L (133-145) 02/15/25 06:02/15/25 Magnesium 1.5 mg/dL (1.5-2.2) 02/14/25 16:55 02/14/25 Phosphorus 2.4 mg/dL (2.7-4.5) L 02/15/25 06:02/15/25 BUN 7 mg/dL (4-19) 02/15/25 06:02/15/25 Creatinine 0.76 mg/dL (0.70-1.20) 02/15/25 06:27 02/15/25 Glucose 115 mg/dL (70-99) H 02/15/25 06:27 02/15/25 TSH 2.300 uIU/mL (0.300-4.200) 02/15/25 06:27 02/15/25 COAG PT 11.0 SECONDS (11.7-14.9) L 11/21/19 20:30 11/21/19 Pre-Assessment Diagnosis/Proposed Procedure Planned Operative Procedure(s): Esophagogastroduodenoscopy with control of bleeding. Anesthesia History Anesthesia History - registered occupational therapist: Anesthesia History - registered occupational therapist Hx Hospitalization Any Problems With Anesthesia No 02/15/25 09:53 Cholinesterase deficiency No 02/15/25 09:53 You/Your Family Experience No 02/15/25 09:53 fever (hyperthermia) with Relationship Recent Exposure to Contagious No 02/15/25 09:53 Disease Does patient have nerve No 02/15/25 09:53 stimulator Patient instructed to have No 02/15/25 09:53 device shut off --Does patient have Pacemaker No 02/15/25 09:53 or ICD? When Was Last Pacemaker Check QUESTION #4 FULL TEXT: You/Your Family Experience fever (hyperthermia) with Anesthesia Last Oral Intake Last Oral intake: Last Oral Intake NPO since 00:00 02/15/25 09:53 Meds taken in AM with sips of No 02/15/25 09:53 water? Meds patient instructed to take am of surgery PONV PONV - registered occupational therapist: PONV - registered occupational therapist Female HX of Motion Sickness HX of N/V After Surgery Non-Smoker Duration of Surgery greater than 60 minutes Number of Risk Factors PONV Score Height & Weight Height & Weight: Anesthesia: Height & Weight Height 6 ft 1 in 02/15/25 10:05 Weight: 82.1 kg 02/15/25 10:05 Body Mass Index (BMI) 23.8 02/15/25 09:53 Respiratory Assessment Respiratory Assessment - registered occupational therapist: Respiratory Tract Infection Hx - registered occupational therapist Hx Respiratory Tract Infection No 02/15/25 09:53 STOP Sleep Apnea STOP Sleep Apnea - registered occupational therapist: STOP Sleep Apnea - registered occupational therapist Hx Hypertension Yes 02/15/25 02:45 Hx Sleep Apnea No 02/15/25 02:45 CPAP BIPAP Do you snore loudly (louder No 02/15/25 02:45 than talking or can be heard Do you often feel tired/ No 02/15/25 02:45 fatigued/ sleepy during daytime? Has anyone observed you stop No 02/15/25 02:45 breathing during sleep? STOP Results Negative 02/15/25 02:45 QUESTION #5 FULL TEXT : Do you snore loudly (louder than talking or can be heard through closed doors)? 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 Specify any problems Hx of Preganancy in last 3 N/A 02/15/25 02:45 Months Nurse Filling Out Transfusion TDEVEREAU 02/15/25 02:45 & Questions: Date: 02/15/25 02/15/25 02:45 Time: 02:50 02/15/25 02:45 Patient unable to answer at this time (ie. confused, unrespo /Reproduction History /Reproductive History - registered occupational therapist: /Reproductive Hx- registered occupational therapist Hx Now No 02/15/25 09:53 Gestational Age (in weeks): EDC: Hx Hx Para Hx Section SAB Active Medications Active Medications: Current Medications Generic Name Dose Route Start Last Admin Trade Name Freq PRN Reason Stop Dose Admin Sodium Chloride 1,000 mls @ 150 mls/hr 02/15/25 00:45 02/15/25 08:54 IV 02/15/25 14:04 150 mls/hr .[id number] MARCELLO Administration Pantoprazole Sodium 80 mg/ 100 mls @ 10 mls/hr 02/15/25 00:50 02/15/25 01:46 Sodium Chloride CONT INF 10 mls/hr Q10H MARCELLO Administration Sodium Chloride 500 mls @ 15 mls/hr 02/15/25 02:47 IV PRN PRN Blood Transfusion Sodium Chloride 250 mls @ 15 mls/hr 02/15/25 02:47 IV .[id number] PRN Saline Flush Sodium Chloride 250 mls @ 15 mls/hr 02/15/25 02:47 IV .[id number] PRN Additional IVPB Infusion Lactated Ringer's 1,000 mls @ 15 mls/hr 02/15/25 11:45 02/15/25 11:44 IV 15 mls/hr .Q48H MARCELLO Administration Lorazepam 0.5 mg 02/15/25 02:44 02/15/25 08:54 Lorazepam 2 Mg/Ml Wch Syringe IV 0.5 mg Q4H PRN PRN Administration ANXIETY/AGITATION Morphine Sulfate 2 mg 02/15/25 03:22 Morphine 2 Mg/Ml Syringe IV Q4H PRN PRN Pain Score 6-10 Nicotine 14 mg 02/15/25 10:00 Nicotine 14 Mg Patch TD DAILY MARCELLO Ondansetron HCl 4 mg 02/15/25 02:44 02/15/25 03:02 Ondansetron 4 Mg/2 Ml Vial IV 4 mg Q4H PRN PRN Administration NAUSEA/VOMITING Phenobarbital 100 mg 02/15/25 00:45 02/15/25 06:30 Phenobarbital Sodium 130 Mg/Ml Vial IV 100 mg TID MARCELLO Administration Promethazine HCl 12.5 mg 02/15/25 02:44 Promethazine 25 Mg/Ml Syringe IM Q4H PRN PRN BREAKTHROUGH NAUSEA Sodium Chloride 10 - 40 ml 02/15/25 02:47 02/15/25 06:34 0.9% Saline Lock 10 Ml Syringe IV 20 ml UD PRN Administration SALINE FLUSH PFSH Medical History Chronic neck pain Thrombocytopenia Tobacco use Anxiety and depression ETOH abuse Alcohol dependence Hypertension Alcoholism Home Medications ?Medication ?Instructions ?Recorded ?Last Taken ?Type NK 02/15/25 Unknown History Allergy/AdvReac Type Severity Reaction Status Date / Time No Known Allergies Allergy Verified 02/14/25 16:46 Family History no significant family his Surgical History No history of previous surgery Social History household members: family Smoking Status: Current every day smoker tobacco type: cigarettes alcohol intake: current alcohol intake frequency: 3 or more drinks per day Alcohol type: hard liquor details: Usually drinks daily, vodka, unclear exact amount, last drink 2 days prior. substance use type: does not use Review of Systems (Anesthesia) ROS Narrative System reviewed and no additional complaints, except as documented.
--- NOTE | 2025-02-15 13:39 | PCM.POST.ANE ---
Anesthesia: Postop Eval I Current Vital Signs Temperature: 99.4 F Pulse Rate: 71 Blood Pressure: 104/75 Respiratory Rate: 16 Pulse Ox: 100 Oxygen Delivery Method: Room Air Assessment Airway patent: Yes Spontaneous unlabored respirations: Yes Mental status: Asleep nausea: No Vomiting: No Anesthesia Complication: No Fluid Hydration Crystalloid volume administer (ml): 300 Total IV fluid infused: 300 Progress Note Anesthesia document: Postop Eval 1 completed: Yes
--- NOTE | 2025-02-15 13:42 | OP.EGD_ITS ---
Patient Name: Rajeev York Procedure Date: 02/15/2025 12:57 PM Date of : 1960 Age: 64 Procedure: Upper GI endoscopy Indications: Coffee-ground emesis, Hematemesis, Cirrhosis with suspected esophageal varices Providers: Marc Quesada DO Medicines: Monitored Anesthesia Care Patient Profile: This is a 64 year old male. Refer to note in patient chart for documentation of history and physical. Patient has symptoms of acute dyspepsia, acute nausea and acute vomiting. Complications: No immediate complications. Procedure: Pre-Anesthesia Assessment: - Prior to the procedure, a History and Physical was performed, and patient medications and allergies were reviewed. The patient is competent. The risks and benefits of the procedure and the sedation options and risks were discussed with the patient. All questions were answered and informed consent was obtained. Patient identification and proposed procedure were verified by the physician. Mental Status Examination: alert and oriented. Airway Examination: normal oropharyngeal airway and neck mobility. Respiratory Examination: clear to auscultation. CV Examination: normal. ASA Grade Assessment: III - A patient with severe systemic disease. After reviewing the risks and benefits, the patient was deemed in satisfactory condition to undergo the procedure. The anesthesia plan was to use monitored anesthesia care (MAC). Immediately prior to administration of medications, the patient was re-assessed for adequacy to receive sedatives. The heart rate, respiratory rate, oxygen saturations, blood pressure, adequacy of pulmonary ventilation, and response to care were monitored throughout the procedure. The physical status of the patient was re-assessed after the procedure. After obtaining informed consent, the endoscope was passed under direct vision. Throughout the procedure, the patient's blood pressure, pulse, and oxygen saturations were monitored continuously. The Endoscope was introduced through the mouth, and advanced to the jejunum. Small bowel enteroscopy was deemed necessary. Scope In: 1:22:48 PM Scope Out: 1:29:20 PM Total Procedure Duration Time 0 hours 6 minutes 32 seconds Findings: No gross lesions were noted in the entire esophagus. Severe portal hypertensive gastropathy was found in the entire examined stomach. One non-bleeding linear gastric ulcer with no stigmata of bleeding was found in the gastric antrum. The lesion was 5 mm in largest dimension. Two oozing cratered duodenal ulcers with pigmented material were found in the duodenal bulb and in the first portion of the duodenum. The largest lesion was 7 mm in largest dimension. Coagulation for hemostasis using argon plasma at 0.3 liters/minute and 20 mckenzie was successful. Estimated blood loss was minimal. Impression: - No gross lesions in the entire esophagus. - Portal hypertensive gastropathy. - Non-bleeding gastric ulcer with no stigmata of bleeding. - Oozing duodenal ulcers with pigmented material. Treated with argon plasma coagulation (APC). - No specimens collected. Recommendation: - [facility]. - Full liquid diet. - Continue present medications. - Use Protonix (pantoprazole) 40 mg PO BID. Procedure Code(s): --- Professional --- 68195, Small intestinal endoscopy, enteroscopy beyond second portion of duodenum, not including ileum; with control of bleeding (eg, injection, bipolar cautery, unipolar cautery, laser, heater probe, stapler, plasma litigation associate) CPT copyright 2021 [employer]. All rights reserved. The codes documented in this report are preliminary and upon him coder review may be revised to meet current compliance requirements. Marc Quesada DO 02/15/2025 1:42:03 PM This report has been signed electronically. Number of Addenda: 0 Note Initiated On: 02/15/2025 12:57 PM
--- NOTE | 2025-02-15 13:42 | OP.EGD_ITS ---
Patient Name: Rajeev York Procedure Date: 02/15/2025 12:57 PM Date of : 1960 Age: 64 Procedure: Upper GI endoscopy Indications: Coffee-ground emesis, Hematemesis, Cirrhosis with suspected esophageal varices Providers: Marc Quesada DO Medicines: Monitored Anesthesia Care Patient Profile: This is a 64 year old male. Refer to note in patient chart for documentation of history and physical. Patient has symptoms of acute dyspepsia, acute nausea and acute vomiting. Complications: No immediate complications. Procedure: Pre-Anesthesia Assessment: - Prior to the procedure, a History and Physical was performed, and patient medications and allergies were reviewed. The patient is competent. The risks and benefits of the procedure and the sedation options and risks were discussed with the patient. All questions were answered and informed consent was obtained. Patient identification and proposed procedure were verified by the physician. Mental Status Examination: alert and oriented. Airway Examination: normal oropharyngeal airway and neck mobility. Respiratory Examination: clear to auscultation. CV Examination: normal. ASA Grade Assessment: III - A patient with severe systemic disease. After reviewing the risks and benefits, the patient was deemed in satisfactory condition to undergo the procedure. The anesthesia plan was to use monitored anesthesia care (MAC). Immediately prior to administration of medications, the patient was re-assessed for adequacy to receive sedatives. The heart rate, respiratory rate, oxygen saturations, blood pressure, adequacy of pulmonary ventilation, and response to care were monitored throughout the procedure. The physical status of the patient was re-assessed after the procedure. After obtaining informed consent, the endoscope was passed under direct vision. Throughout the procedure, the patient's blood pressure, pulse, and oxygen saturations were monitored continuously. The Endoscope was introduced through the mouth, and advanced to the jejunum. Small bowel enteroscopy was deemed necessary. Scope In: 1:22:48 PM Scope Out: 1:29:20 PM Total Procedure Duration Time 0 hours 6 minutes 32 seconds Findings: No gross lesions were noted in the entire esophagus. Severe portal hypertensive gastropathy was found in the entire examined stomach. One non-bleeding linear gastric ulcer with no stigmata of bleeding was found in the gastric antrum. The lesion was 5 mm in largest dimension. Two oozing cratered duodenal ulcers with pigmented material were found in the duodenal bulb and in the first portion of the duodenum. The largest lesion was 7 mm in largest dimension. Coagulation for hemostasis using argon plasma at 0.3 liters/minute and 20 mckenzie was successful. Estimated blood loss was minimal. Impression: - No gross lesions in the entire esophagus. - Portal hypertensive gastropathy. - Non-bleeding gastric ulcer with no stigmata of bleeding. - Oozing duodenal ulcers with pigmented material. Treated with argon plasma coagulation (APC). - No specimens collected. Recommendation: - [facility]. - Full liquid diet. - Continue present medications. - Use Protonix (pantoprazole) 40 mg PO BID. Procedure Code(s): --- Professional --- 08454, Small intestinal endoscopy, enteroscopy beyond second portion of duodenum, not including ileum; with control of bleeding (eg, injection, bipolar cautery, unipolar cautery, laser, heater probe, stapler, plasma retort operator) CPT copyright 2021 [employer]. All rights reserved. The codes documented in this report are preliminary and upon jack frame tender review may be revised to meet current compliance requirements. Marc Quesada DO 02/15/2025 1:42:03 PM This report has been signed electronically. Number of Addenda: 0 Note Initiated On: 02/15/2025 12:57 PM
--- NOTE | 2025-02-15 13:42 | OP.CCLET_ITS ---
02/15/2025 Rajeev Villaseñor Re : Upper GI endoscopy procedure for Rajeev York Dear Kasi This procedure was performed on Saturday, February 15, 2025. My impressions and recommendations are as follows: Impressions : - No gross lesions in the entire esophagus. - Portal hypertensive gastropathy. - Non-bleeding gastric ulcer with no stigmata of bleeding. - Oozing duodenal ulcers with pigmented material. Treated with argon plasma coagulation (APC). - No specimens collected. Recommendations : - [facility]. - Full liquid diet. - Continue present medications. - Use Protonix (pantoprazole) 40 mg PO BID. My findings are described in the full procedure note, which is enclosed. If I can be of further assistance, please feel free to contact me at . Sincerely, Marc Quesada, 02/15/2025 1:42:03 PM This report has been signed electronically.
--- NOTE | 2025-02-15 14:51 | PCM.POSTANE2 ---
Anesthesia Postop Eval I Sum Postop Eval Completion status Anesthesia document: Postop Eval 1 completed: Yes Anesthesia Postop Eval I Summary Anesthesia Postop Eval I Summary: Anesthesia Postop Eval I: Assessment Summary Airway patent Yes 02/15/25 13:40 [email or web address] Spontaneous unlabored Yes 02/15/25 13:40 [email or web address] respirations Mental status Asleep 02/15/25 13:40 [email or web address] nausea No 02/15/25 13:40 [email or web address] Vomiting No 02/15/25 13:40 [email or web address] Anesthesia Postop Eval I: Fluid Summary Crystalloid volume administer 300 02/15/25 13:40 [email or web address] (ml) Colloids volume administered ( ml) Blood Product volume administered (ml) Total IV fluid infused 300 02/15/25 13:40 [email or web address] Anesthesia Postop Eval I: Summary Notes Anesthesia Complication No 02/15/25 13:40 [email or web address] Anesthesia Complication Comment: Post-operative progress note Anesthesia: Postop Eval II Evaluation Mental status: Awake Pain Level: 0 nausea: No Vomiting: No
--- NOTE | 2025-02-15 18:03 | NURSING ---
Pt was transferred from ICU to [facility]. Took 1RN and 2 MANAGEMENT DEVELOPER's to get pt to bed. Water was given to pt and pt was put in bed and given call light. No further needs at this time.
--- NOTE | 2025-02-15 18:03 | NURSING ---
Pt was transferred from ICU to [facility]. Took 1RN and 2 INSPECTOR GENERAL's to get pt to bed. Water was given to pt and pt was put in bed and given call light. No further needs at this time.
[2025-02-16] VITALS (7 sets, daily range): BP systolic 124–135; BP diastolic 70–87; PULSE 70–98; RESP 16–20; TEMP 36.8–37.1; O2SAT 96–100; BMI 24.0
[2025-02-16 05:38] LABS: Hematocrit 27.5 % (40-54); Hemoglobin 9.3 g/dL (13.0-16.5); Immature Granulocytes Count 0.050 X10^3/uL (0.0-0.0); Mean Corp Hgb Conc 33.8 g/dL (32-36); Mean Corpuscular Volume 100.0 fL (80-94); Mean Platelet Vol. 11.6 fl (6.2-12.0); NRBC Flagged by Analyzer 0 % (0-5); POSITIVE COUNT YES; POSITIVE MORPHOLOGY YES; RBC Distribution Width CV 16.3 % (11.6-14.6); RBC Distribution Width SD 59.7 fl (35.1-43.9); Red Blood Count 2.75 M/mm3 (4.6-6.2); White Blood Count 2.8 K/mm3 (4.4-11.0)
[2025-02-16 05:52] LABS: Differential Indicated SCAN CRITERIA MET; Platelet Count 32 K/mm3 (150-450)
[2025-02-16 06:06] LABS: AST(SGOT) 171 U/L (<=37); Alanine Aminotransfer ALT/SGPT 57 U/L (<=46); Albumin, Serum 2.9 g/dL (3.4-4.8); Alkaline Phosphatase 103 U/L (40-129); Anion Gap 14 (5-15); BUN 6 mg/dL (4-19); BUN/Creat Ratio 8.8 RATIO (10-20); Bilirubin, Direct 2.53 mg/dL (0.00-0.30); Calcium,Total 8.8 mg/dL (7.6-11.0); Carbon Dioxide 18.8 mmol/L (21.0-32.0); Chloride 101 mmol/L (98-108); Estimated Creatinine Clearance 124.03 ml/min (50-250); Globulin 4.8 g/dL (2.2-4.2); Glucose 87 mg/dL (70-99); Potassium 3.2 mmol/L (3.3-5.1)
[2025-02-16 06:10] LABS: Magnesium 1.2 mg/dL (1.5-2.2)
[2025-02-16] MEDS: Potassium Phosphate 40 MM in 0.9% Normal Saline (500mL Bag) 500 ML 62.5 MM IV ×2 (06:40→16:11)
[2025-02-16] MEDS: 0.9% Saline Lock 10 ML Syringe IV ×2 (06:41→14:30)
[2025-02-16 06:46] LABS: Differential Comment SCANNED
[2025-02-16] MEDS: Lorazepam 2 MG/ML WCH Syringe 0.5 MG IV ×2 (06:46→22:19)
--- NOTE | 2025-02-16 06:57 | PN.HOSP_ITS ---
Reason for Visit Reason for Visit: Diagnoses Anemia, unspecified (02/15/25) Decreased white blood cell count, unspecified (02/15/25) Alcohol abuse, uncomplicated (02/15/25) Alcohol use, unspecified with withdrawal, unspecified (02/15/25) Alcoholic cirrhosis of liver with ascites (02/15/25) Hematemesis (02/15/25) Unspecified abdominal pain (02/15/25) Nausea with vomiting, unspecified (02/15/25) Unspecified jaundice (02/15/25) Elevation of levels of liver transaminase levels (02/15/25) Tobacco use (02/15/25) Subjective Subjective Patient underwent EGD the day prior findings as below. Patient has significant electrolyte abnormalities Objective Data Objective Data Vital Signs: Vital Signs Temp Pulse Resp BP Pulse Ox O2 Del Method 98.8 F 70 16 135/79 H 100 Room Air 02/16/25 02:30 02/16/25 02:30 02/16/25 02:30 02/16/25 02:30 02/16/25 02:30 02/16/25 02:30 Oxygen Delivery Method Room Air Weight: 82.1 kg Body Mass Index (BMI) 24.0 Intake & Output: Intake and Output for Last 24 Hours 02/14/25 02/15/25 02/16/25 23:59 23:59 23:59 Intake Total 1000 / 1000 2416.0 / 2416.0 Output Total 1001 / 1201 1200 / 1200 Balance 1000 / 1000 1415.0 / 1215.0 -1200 / -1200 Lab / Micro Data 02/16/25 04:52 02/16/25 04:52 Labs: Laboratory Results - last 24 hr 02/15/25 06:27: WBC 2.7 L, RBC 2.84 L, Hgb 9.7 L, Hct 29.4 L, MCV 103.5 H, MCH 34.2 H, MCHC 33.0, RDW Std Deviation 62.6 H, RDW Coeff of Saloni 16.5 H, Plt Count 35 L*, MPV 10.8, Immature Gran % (Auto) 1.500 H, Neut % (Auto) 73.5 H, Lymph % (Auto) 12.5 L, [place] % (Auto) 11.4 H, Eos % (Auto) 0.4, Baso % (Auto) 0.7, Absolute Neuts (auto) 2.0, Absolute Lymphs (auto) 0.34 L, Nucleated RBC % 0, Differential Comment SCANNED, Diff Path Review May foll, Sodium 138, Potassium 3.5, Chloride 99, Carbon Dioxide 14.2 L, Anion Gap 25 H, BUN 7, Creatinine 0.76, Estim Creat Clear Calc 110.97, Est GFR (MDRD) Non-Af 100, BUN/Creatinine Ratio 9.7 L, Glucose 115 H, Calcium 8.8, Phosphorus 2.4 L, Total Bilirubin 4.30 H, AST 222 H, ALT 74 H, Alkaline Phosphatase 123, Total Protein 8.7 H, Albumin 3.4, G lobulin 5.4 H, Albumin/Globulin Ratio 0.6 L, Triglycerides 125, Cholesterol 115, LDL Cholesterol, Calc 63, VLDL Cholesterol 25, HDL Cholesterol 27 L, Cholesterol/HDL Ratio 4.21, TSH 2.300 02/16/25 04:52: WBC 2.8 L, RBC 2.75 L, Hgb 9.3 L, Hct 27.5 L, MCV 100.0 H, MCH 33.8 H, MCHC 33.8, RDW Std Deviation 59.7 H, RDW Coeff of Saloni 16.3 H, Plt Count 32 L*, MPV 11.6, Immature Gran % (Auto) 1.800 H, Neut % (Auto) 57.9, Lymph % (Auto) 23.9, [place] % (Auto) 13.9 H, Eos % (Auto) 2.1, Baso % (Auto) 0.4, Absolute Neuts (auto) 1.6 L, Absolute Lymphs (auto) 0.67 L, Nucleated RBC % 0, Differential Comment SCANNED, Platelet Estimate MKD DEC, Sodium 134, Potassium 3.2 L, Chloride 101, Carbon Dioxide 18.8 L, Anion Gap 14, BUN 6, Creatinine 0.68 L, Estim Creat Clear Calc 124.03, Est GFR (MDRD) Non-Af 104, BUN/Creatinine Ratio 8.8 L, Glucose 87, Calcium 8.8, Phosphorus 0.8 L*, Magnesium 1.2 L, Total Bilirubin 3.87 H, Direct Bilirubin 2.53 H, AST 171 H, ALT 57 H, Alkaline Phosphatase 103, Total Protein 7.7, Albumin 2.9 L, Globulin 4.8 H Physical Exam Narrative GENERAL: cooperative HEENT: Atraumatic; normocephalic EYES; Anicteric, Normal Conjunctiva NECK; supple, normal thyroid, RESPIRATORY: Diminished to auscultation CARDIOVASCULAR: Regular S1 S2, GI: soft, normoactive bowel sounds, : No Renal angle tenderness; EXTREMITIES: No edema, no clubbing, MUSCULOSKELETAL: no muscle wasting NEURO: Awake; no lateralizing signs. SKIN: No Rash PSYCH; Flat affect Assessment & Plan Assessment/Plan (1) Intractable vomiting with nausea: (2) Dark emesis: (3) Intractable abdominal pain: (4) Alcohol abuse: (5) Alcohol withdrawal: QUALIFIERS: Complication of substance-induced condition: with unspecified complication Qualified Code(s): F10.939 - Alcohol use, unspecified with withdrawal, unspecified (6) Elevated bilirubin: (7) Transaminitis: (8) Cirrhosis: QUALIFIERS: Ascites presence: with ascites Hepatic cirrhosis type: alcoholic cirrhosis Qualified Code(s): K70.31 - Alcoholic cirrhosis of liver with ascites (9) Leukopenia: QUALIFIERS: Leukopenia type: unspecified Qualified Code(s): D 72.819 - Decreased white blood cell count, unspecified (10) Anemia: QUALIFIERS: Anemia type: unspecified type Qualified Code(s): D 64.9 - Anemia, unspecified (11) Tobacco use: PLAN: Plan Patient is a 64-year-old gentleman with history of chronic alcohol dependence who presented with abdominal pain with associated nausea and vomiting with coffee-ground emesis. 1. Upper GI bleed ? Suspected to be secondary to gastritis from patient chronic alcohol use exacerbated by his low platelet counts. Patient was admitted to the intensive care unit symptom management started with antinausea medication as well as pain meds and Protonix. Consult was placed to Dr. Quesada with GI 03/15/2025; patient underwent EGD the day prior findings included - No gross lesions in the entire esophagus. - Portal hypertensive gastropathy. Non-bleeding gastric ulcer with no stigmata of bleeding. Oozing duodenal ulcers with pigmented material. Treated with argon plasma coagulation (APC). Patient subsequently started on Protonix 40 mg p.o. twice daily 2. Chronic alcohol dependence with at significant risk for alcohol withdrawal. - treatment with phenobarb taper in addition to adjuvant medications including gabapentin, Bentyl, hydroxyzine and clonidine as needed for alcohol withdrawal symptoms. Patient was also placed on thiamine and folic acid , consultation placed to 180 counseling services ? 02/16/2025 patient remains on CIWA protocol with phenobarb taper 3. Severe pancytopenia ? Secondary to chronic alcohol use 4. Severe thrombocytopenia ? Secondary to chronic alcohol use monitoring platelet count. No indication for platelet transfusion at this point 5. Anemia ? Secondary to acute blood loss anemia from upper GI bleed ? Patient underwent EGD findings as documented above. Subsequently monitoring H&H with plans to transfuse if hemoglobin falls below 7 or patient is deemed to be symptomatic 6. Hypokalemia ? Corrected per protocol repeat labs ordered in a.m. for subsequent eval also ordered magnesium and phosphorus level ? 02/16/2025; patient potassium levels remain low despite aggressive resuscitation 7. Hypophosphatemia ? Secondary to chronic alcohol use corrected per protocol repeat potassium levels ordered for a.m. 8. Hypomagnesemia ? Secondary to chronic alcohol use corrected per protocol repeat labs ordered in a.m. for follow-up 9. Hypertension - Blood pressure controlled, home medications continued with dose adjustment as needed 10. Acute transaminitis ? Patient picture consistent with alcohol dependence will monitor 11. Colitis ? CT of the abdomen and pelvis obtained did show Mild wall thickening involving the terminal ileum, cecum, and ascending colon, which could be the result of portal colopathy, though terminal ileitis/colitis could appear similar. Will continue with symptom managed 12. Subacute to chronic appearing fractures of the lower right-sided ribs, secondary to previous falls There are healed appearing fractures of the left-sided ribs. Treatment initiated with incentive spirometry as well as pain meds 13. Lung nodule and adrenal nodules ? Patient informed plan is for patient to follow-up with primary care physician for subsequent imaging for follow-up 14. Tobacco dependence - Counseled on cessation, offered nicotine patch for tobacco cravings 15. DVT prophylaxis ? Bilateral SCDs Charges/Coding Visit Charges Inpatient E&M: 23306 Subs Hosp L3
[2025-02-16] MEDS: 0.9% Normal Saline (250mL Bag) 250 ML 40 ML IV (07:55)
[2025-02-16] MEDS: Potassium Chloride 10mEq/100mL 10 MEQ/100 ML IV.SOLN. 100 MEQ IV BOLUS ×4 (07:56→12:42)
[2025-02-16] MEDS: Magnesium Sulfate 2 GM in Dextrose 5%-Water (100mL Bag) 100 ML IV (08:02)
[2025-02-16] MEDS: Potassium Chloride Oral Tablet 20 MEQ PO ×2 (08:08→16:51)
[2025-02-16] MEDS: Magnesium Chloride 64 MG Delay Rel.Tablet 128 MG PO ×2 (08:08→22:35)
--- NOTE | 2025-02-16 08:22 | NURSING ---
spent 40 minutes with pt.
--- NOTE | 2025-02-16 08:22 | NURSING ---
spent 40 minutes with pt.
--- NOTE | 2025-02-16 09:50 | CASEMGMT ---
JAIDEN HANSON to the pt room at this time to follow up on DC planning. Pt is slow to respond but is A&Ox3 at this time, resting in bed. This RN CM inquired if the pt would like resources regarding EtOH abuse. Pt denies wanting to speak to a SW about this. Noted that the pt's whiteboard states that the pt is a heavy x2-3 assist. Pt also appears weak in bed and was unable to open his can of soda. Noted 6-Click score is 17. Order for PT/OT eval placed. This RN MARGIE collaborated with the SW who reports that the daughter is wanting SNF placement for the pt. If not and pt goes home, pt daughter wants a FWW set up for the pt. CM and SW to follow PT/OT evals to assist with safe DC planning. Pt denies further questions/concerns now.
[2025-02-16] MEDS: Na Biphos/Potassium Phosphate PACKET 1 PACKET PO ×2 (09:52→22:35)
--- NOTE | 2025-02-16 11:58 | CASEMGMT ---
Discharge Planning A list of?SNF providers including quality and resource use data and consistent with the patient's preferred geographic region, medical needs, and insurance network was created in [facility] Guide.? This list was provided to the SW. Chelita Friedman Discharge Planning Asst.
--- NOTE | 2025-02-16 13:05 | CASEMGMT ---
Addendum entered by Erendira Allen 02/16/25 16:50: ARGENIS called pt Monika to update on [facility] acceptance. Monika reports that she will let Veronica know. KATHRYN Oates Original Note: Social Work- ARGENIS called and left Veronica, pt ex-, a voicemail with no identifying information of pt. ARGENIS requested a return call. ARGENIS called pt sister, Monika, who reports that Veronica remains HCPOA and financial POA, as pt and Veronica have remained freindly and on good terms following divorce. Monika confirmed divorce has been finalized. Monika reports that pt was at [facility] prior to a UTI and hospitalization. Pt then returned to [facility] under SNF level of care. Monika indicates that she and Veronica would like pt to return to [facility] at discharge. Monika indicates that she believes that pt will be ECF/intermediate following skilled stay. Monika reports that Veronica works during the day and is often unavailable by phone, but does text. Monika reports that she is a nurse and is more quickly accessible. ARGENIS updated [facility] on referral request. ARGENIS remains available to follow. Plan: [facility]; pending acceptance KATHRYN Oates
--- NOTE | 2025-02-16 13:05 | CASEMGMT ---
Addendum entered by Erendira Allen 02/16/25 16:50: ARGENIS called pt Monika to update on [facility] acceptance. Monika reports that she will let Veronica know. KATHRYN Oates Original Note: Social Work- ARGENIS called and left Veronica, pt ex-, a voicemail with no identifying information of pt. ARGENIS requested a return call. ARGENIS called pt sister, Monika, who reports that Veronica remains HCPOA and financial POA, as pt and Veronica have remained freindly and on good terms following divorce. Monika confirmed divorce has been finalized. Monika reports that pt was at [facility] prior to a UTI and hospitalization. Pt then returned to [facility] under SNF level of care. Monika indicates that she and Veroinca would like pt to return to [facility] at discharge. Monika indicates that she believes that pt will be ECF/intermediate following skilled stay. Monika reports that Veronica works during the day and is often unavailable by phone, but does text. Monika reports that she is a nurse and is more quickly accessible. ARGENIS updated [facility] on referral request. ARGENIS remains available to follow. Plan: [facility]; pending acceptance KATHRYN Oates
--- NOTE | 2025-02-16 14:22 | CASEMGMT ---
Discharge Planning Referral sent to [facility]. They have accepted. Chelita Friedman DC Planning Asst.
--- NOTE | 2025-02-16 14:22 | CASEMGMT ---
Discharge Planning Referral sent to [facility]. They have accepted. Chelita Friedman DC Planning Asst.
--- NOTE | 2025-02-16 16:50 | CASEMGMT ---
Social Work- Discharge to [facility]; skilled level of care. ?In case of possible weekend discharge, green sheet, transport, HENS on chart for nursing to follow for final discharge arrangements/notifications to SNF, patient/family.? Plan: [facility]; Skilled level of care KATHRYN Oates
--- NOTE | 2025-02-16 18:13 | NURSING ---
1750 called Pharmacy asked to send 1800 dose phenobarb.
--- NOTE | 2025-02-16 18:13 | NURSING ---
1750 called Pharmacy asked to send 1800 dose phenobarb.
[2025-02-17] VITALS (7 sets, daily range): BP systolic 126–154; BP diastolic 78–99; PULSE 99–110; RESP 13–18; TEMP 37.2–37.3; O2SAT 96–100; BMI 23.9
[2025-02-17 06:07] LABS: Hematocrit 29.9 % (40-54); Hemoglobin 10.4 g/dL (13.0-16.5); Immature Granulocytes Count 0.050 X10^3/uL (0.0-0.0); Mean Corp Hgb Conc 34.8 g/dL (32-36); Mean Corpuscular Volume 98.4 fL (80-94); Mean Platelet Vol. 11.6 fl (6.2-12.0); NRBC Flagged by Analyzer 0.7 % (0-5); POSITIVE COUNT YES; RBC Distribution Width CV 16.1 % (11.6-14.6); RBC Distribution Width SD 57.9 fl (35.1-43.9); Red Blood Count 3.04 M/mm3 (4.6-6.2); White Blood Count 3.1 K/mm3 (4.4-11.0)
[2025-02-17 06:17] LABS: Differential Indicated SCAN CRITERIA MET; Platelet Count 35 K/mm3 (150-450)
--- NOTE | 2025-02-17 07:06 | PCM.PN.HOSP ---
Reason for Visit Reason for Visit: Diagnoses Anemia, unspecified (02/15/25) Decreased white blood cell count, unspecified (02/15/25) Alcohol abuse, uncomplicated (02/15/25) Alcohol use, unspecified with withdrawal, unspecified (02/15/25) Alcoholic cirrhosis of liver with ascites (02/15/25) Hematemesis (02/15/25) Unspecified abdominal pain (02/15/25) Nausea with vomiting, unspecified (02/15/25) Unspecified jaundice (02/15/25) Elevation of levels of liver transaminase levels (02/15/25) Tobacco use (02/15/25) Subjective Subjective Patient still remains significantly deconditioned. Requested for PT OT eval and sr. social media & mobile manager to assist with disposition Objective Data Objective Data Vital Signs: Vital Signs Temp Pulse Resp BP Pulse Ox O2 Del Method 98.9 F 103 H 16 126/84 H 98 Room Air 02/17/25 03:22 02/17/25 03:22 02/17/25 03:22 02/17/25 03:22 02/17/25 03:22 02/17/25 03:21 Oxygen Delivery Method Room Air Weight: 82 kg Body Mass Index (BMI) 23.9 Intake & Output: Intake and Output for Last 24 Hours 02/15/25 02/16/25 02/17/25 23:59 23:59 23:59 Intake Total 2416.0 / 2416.0 1267.3333 / 1267.3333 513.3333 / 513.3333 Output Total 1001 / 1201 2350 / 2350 500 / 500 Balance 1415.0 / 1215.0 -1082.6667 / -1082.6667 13.3333 / 13.3333 Lab / Micro Data 02/17/25 04:45 02/17/25 07:34 Labs: Laboratory Results - last 24 hr 02/17/25 04:45: WBC 3.1 L, RBC 3.04 L, Hgb 10.4 L, Hct 29.9 L, MCV 98.4 H, MCH 34.2 H, MCHC 34.8, RDW Std Deviation 57.9 H, RDW Coeff of Saloni 16.1 H, Plt Count 35 L*, MPV 11.6, Immature Gran % (Auto) 1.600 H, Neut % (Auto) 59.0, Lymph % (Auto) 23.3, [place] % (Auto) 14.1 H, Eos % (Auto) 1.3, Baso % (Auto) 0.7, Absolute Neuts (auto) 1.8 L, Absolute Lymphs (auto) 0.71 L, Nucleated RBC % 0.7, Sodium Cancelled, Potassium Cancelled, Chloride Cancelled, Carbon Dioxide Cancelled, Anion Gap Cancelled, BUN Cancelled, Creatinine Cancelled, Estim Creat Clear Calc Cancelled, Est GFR (MDRD) Non-Af Cancelled, BUN/Creatinine Ratio Cancelled, Glucose Cancelled, Calcium Cancelled, Total Bilirubin Cancelled, Direct Bilirubin Cancelled, AST Cancelled, ALT Cancelled, Alkaline Phosphatase Cancelled, Total Protein Cancelled, Albumin Cancelled, Globulin Cancelled Physical Exam Narrative GENERAL: cooperative HEENT: Atraumatic; normocephalic EYES; Anicteric, Normal Conjunctiva NECK; supple, normal thyroid, RESPIRATORY: Diminished to auscultation CARDIOVASCULAR: Regular S1 S2, GI: soft, normoactive bowel sounds, : No Renal angle tenderness; EXTREMITIES: No edema, no clubbing, MUSCULOSKELETAL: no muscle wasting NEURO: Awake; no lateralizing signs. SKIN: No Rash PSYCH; Flat affect Assessment & Plan Assessment/Plan (1) Intractable vomiting with nausea: (2) Alcohol withdrawal: QUALIFIERS: Complication of substance-induced condition: with unspecified complication Qualified Code(s): F10.939 - Alcohol use, unspecified with withdrawal, unspecified (3) Transaminitis: (4) Leukopenia: QUALIFIERS: Leukopenia type: unspecified Qualified Code(s): D72.819 - Decreased white blood cell count, unspecified (5) Anemia: QUALIFIERS: Anemia type: unspecified type Qualified Code(s): D64.9 - Anemia, unspecified PLAN: Plan Patient is a 64-year-old gentleman with history of chronic alcohol dependence who presented with abdominal pain with associated nausea and vomiting with coffee-ground emesis. 1. Upper GI bleed ? Suspected to be secondary to gastritis from patient chronic alcohol use exacerbated by his low platelet counts. Patient was admitted to the intensive care unit symptom management started with antinausea medication as well as pain meds and Protonix. Consult was placed to Dr. Quesada with GI 03/15/2025; patient underwent EGD the day prior findings included - No gross lesions in the entire esophagus. - Portal hypertensive gastropathy. Non-bleeding gastric ulcer with no stigmata of bleeding. Oozing duodenal ulcers with pigmented material. Treated with argon plasma coagulation (APC). Patient subsequently started on Protonix 40 mg p.o. twice daily ? 02/17/2025; patient hemoglobin remained stable 2. Chronic alcohol dependence with at significant risk for alcohol withdrawal. - treatment with phenobarb taper in addition to adjuvant medications including gabapentin, Bentyl, hydroxyzine and clonidine as needed for alcohol withdrawal symptoms. Patient was also placed on thiamine and folic acid , consultation placed to [facility] ? 02/16/2025 patient remains on CIWA protocol with phenobarb taper ? 02/17/2025; patient remains on the phenobarb taper which is tolerated well so far 3. Severe pancytopenia ? Secondary to chronic alcohol use 4. Severe thrombocytopenia ? Secondary to chronic alcohol use monitoring platelet count. No indication for platelet transfusion at this point 5. Anemia ? Secondary to acute blood loss anemia from upper GI bleed ? Patient underwent EGD findings as documented above. Subsequently monitoring H&H with plans to transfuse if hemoglobin falls below 7 or patient is deemed to be symptomatic 6. Hypokalemia ? Corrected per protocol repeat labs ordered in a.m. for subsequent eval also ordered magnesium and phosphorus level ? 02/16/2025; patient potassium levels remain low despite aggressive resuscitation 7. Hypophosphatemia ? Secondary to chronic alcohol use corrected per protocol repeat potassium levels ordered for a.m. 8. Hypomagnesemia ? Secondary to chronic alcohol use corrected per protocol repeat labs ordered in a.m. for follow-up 9. Hypertension - Blood pressure controlled, home medications continued with dose adjustment as needed 10. Acute transaminitis ? Patient picture consistent with alcohol dependence will monitor 11. Colitis ? CT of the abdomen and pelvis obtained did show Mild wall thickening involving the terminal ileum, cecum, and ascending colon, which could be the result of portal colopathy, though terminal ileitis/colitis could appear similar. Will continue with symptom managed 12. Subacute to chronic appearing fractures of the lower right-sided ribs, secondary to previous falls There are healed appearing fractures of the left-sided ribs. Treatment initiated with incentive spirometry as well as pain meds 13. Lung nodule and adrenal nodules ? Patient informed plan is for patient to follow-up with primary care physician for subsequent imaging for follow-up 14. Tobacco dependence - Counseled on cessation, offered nicotine patch for tobacco cravings 15. DVT prophylaxis ? Bilateral SCDs 16 Physical deconditioning ? Requested for PT OT eval and sr. social media & mobile manager to assist with discharge planning. Plan is for patient to be discharged to [facility] on 02/18/2025 Charges/Coding Visit Charges Inpatient E&M: 08534 Subs Hosp L2
[2025-02-17] MEDS: Magnesium Chloride 64 MG Delay Rel.Tablet 128 MG PO ×2 (08:07→21:31)
[2025-02-17] MEDS: Potassium Chloride Oral Tablet 20 MEQ PO ×2 (08:07→17:24)
[2025-02-17 08:18] LABS: AST(SGOT) 152 U/L (<=37); Alanine Aminotransfer ALT/SGPT 52 U/L (<=46); Albumin, Serum 3.1 g/dL (3.4-4.8); Alkaline Phosphatase 118 U/L (40-129); Anion Gap 12 (5-15); BUN 3 mg/dL (4-19); BUN/Creat Ratio 5.5 RATIO (10-20); Bilirubin, Direct 2.80 mg/dL (0.00-0.30); Calcium,Total 8.6 mg/dL (7.6-11.0); Carbon Dioxide 20.3 mmol/L (21.0-32.0); Chloride 99 mmol/L (98-108); Estimated Creatinine Clearance 145.41 ml/min (50-250); Globulin 4.8 g/dL (2.2-4.2); Glucose 103 mg/dL (70-99); Potassium 3.8 mmol/L (3.3-5.1)
[2025-02-17] MEDS: Na Biphos/Potassium Phosphate PACKET 1 PACKET PO ×2 (11:16→21:31)
[2025-02-18 05:27] LABS: Hematocrit 29.9 % (40-54); Hemoglobin 10.5 g/dL (13.0-16.5); Immature Granulocytes Count 0.040 X10^3/uL (0.0-0.0); Mean Corp Hgb Conc 35.1 g/dL (32-36); Mean Corpuscular Volume 98.7 fL (80-94); Mean Platelet Vol. 11.8 fl (6.2-12.0); NRBC Flagged by Analyzer 0 % (0-5); POSITIVE COUNT YES; POSITIVE MORPHOLOGY YES; RBC Distribution Width CV 16.4 % (11.6-14.6); RBC Distribution Width SD 58.5 fl (35.1-43.9); Red Blood Count 3.03 M/mm3 (4.6-6.2); White Blood Count 3.1 K/mm3 (4.4-11.0)
[2025-02-18 05:41] LABS: Differential Indicated SCAN CRITERIA MET; Platelet Count 41 K/mm3 (150-450)
[2025-02-18 05:52] VITALS: BMI 23.9
[2025-02-18 06:25] LABS: AST(SGOT) 130 U/L (<=37); Alanine Aminotransfer ALT/SGPT 52 U/L (<=46); Albumin, Serum 2.9 g/dL (3.4-4.8); Alkaline Phosphatase 111 U/L (40-129); Anion Gap 12 (5-15); BUN 5 mg/dL (4-19); BUN/Creat Ratio 8.3 RATIO (10-20); Bilirubin, Direct 2.58 mg/dL (0.00-0.30); Calcium,Total 8.5 mg/dL (7.6-11.0); Carbon Dioxide 19.9 mmol/L (21.0-32.0); Chloride 99 mmol/L (98-108); Estimated Creatinine Clearance 138.26 ml/min (50-250); Globulin 5.0 g/dL (2.2-4.2); Glucose 92 mg/dL (70-99); Potassium 4.1 mmol/L (3.3-5.1)
[2025-02-18 06:27] LABS: Differential Comment SCANNED
--- NOTE | 2025-02-18 07:32 | PCM.PN.HOSP ---
Reason for Visit Reason for Visit: Diagnoses Anemia, unspecified (02/15/25) Decreased white blood cell count, unspecified (02/15/25) Alcohol abuse, uncomplicated (02/15/25) Alcohol use, unspecified with withdrawal, unspecified (02/15/25) Alcoholic cirrhosis of liver with ascites (02/15/25) Hematemesis (02/15/25) Unspecified abdominal pain (02/15/25) Nausea with vomiting, unspecified (02/15/25) Unspecified jaundice (02/15/25) Elevation of levels of liver transaminase levels (02/15/25) Tobacco use (02/15/25) Subjective Subjective Patient seen had a relatively eventful night. Plan is for [facility] Objective Data Objective Data Vital Signs: Vital Signs Temp Pulse Resp BP Pulse Ox O2 Del Method 99.1 F 110 H 16 154/78 H 96 Room Air 02/17/25 21:24 02/17/25 21:24 02/17/25 21:24 02/17/25 21:24 02/17/25 21:24 02/17/25 21:24 Oxygen Delivery Method Room Air Weight: 81.9 kg Body Mass Index (BMI) 23.9 Intake & Output: Intake and Output for Last 24 Hours 02/16/25 02/17/25 02/18/25 23:59 23:59 23:59 Intake Total 1267.3333 / 1267.3333 1463.3333 / 1463.3333 100 / 100 Output Total 2350 / 2350 1750 / 1750 Balance -1082.6667 / -1082.6667 -286.6667 / -286.6667 100 / 100 Lab / Micro Data 02/18/25 05:00 02/18/25 05:00 Labs: Laboratory Results - last 24 hr 02/17/25 07:34: Sodium 131 L, Potassium 3.8, Chloride 99, Carbon Dioxide 20.3 L, Anion Gap 12, BUN 3 L, Creatinine 0.58 L, Estim Creat Clear Calc 145.41, Est GFR (MDRD) Non-Af 109, BUN/Creatinine Ratio 5.5 L, Glucose 103 H, Calcium 8.6, Total Bilirubin 4.32 H, Direct Bilirubin 2.80 H, AST 152 H, ALT 52 H, Alkaline Phosphatase 118, Total Protein 7.9, Albumin 3.1 L, Globulin 4.8 H 02/18/25 05:00: WBC 3.1 L, RBC 3.03 L, Hgb 10.5 L, Hct 29.9 L, MCV 98.7 H, MCH 34.7 H, MCHC 35.1, RDW Std Deviation 58.5 H, RDW Coeff of Saloni 16.4 H, Plt Count 41 L*, MPV 11.8, Immature Gran % (Auto) 1.300 H, Neut % (Auto) 54.9, Lymph % (Auto) 26.9, [place] % (Auto) 15.3 H, Eos % (Auto) 1.0, Baso % (Auto) 0.6, Absolute Neuts (auto) 1.7 L, Absolute Lymphs (auto) 0.83, Nucleated RBC % 0, Differential Comment SCANNED, Sodium 131 L, Potassium 4.1, Chloride 99, Carbon Dioxide 19.9 L, Anion Gap 12, BUN 5, Creatinine 0.61 L, Estim Creat Clear Calc 138.26, Est GFR (MDRD) Non-Af 107, BUN/Creatinine Ratio 8.3 L, Glucose 92, Calcium 8.5, Total Bilirubin 3.79 H, Direct Bilirubin 2.58 H, AST 130 H, ALT 52 H, Alkaline Phosphatase 111, Total Protein 8.0, Albumin 2.9 L, Globulin 5.0 H Physical Exam Narrative GENERAL: cooperative HEENT: Atraumatic; normocephalic EYES; Anicteric, Normal Conjunctiva NECK; supple, normal thyroid, RESPIRATORY: Diminished to auscultation CARDIOVASCULAR: Regular S1 S2, GI: soft, normoactive bowel sounds, : No Renal angle tenderness; EXTREMITIES: No edema, no clubbing, MUSCULOSKELETAL: no muscle wasting NEURO: Awake; no lateralizing signs. SKIN: No Rash PSYCH; Flat affect Assessment & Plan Assessment/Plan (1) Intractable vomiting with nausea: (2) Alcohol withdrawal: QUALIFIERS: Complication of substance-induced condition: with unspecified complication Qualified Code(s): F10.939 - Alcohol use, unspecified with withdrawal, unspecified (3) Transaminitis: (4) Leukopenia: QUALIFIERS: Leukopenia type: unspecified Qualified Code(s): D72.819 - Decreased white blood cell count, unspecified (5) Anemia: QUALIFIERS: Anemia type: unspecified type Qualified Code(s): D64.9 - Anemia, unspecified PLAN: Plan Patient is a 64-year-old gentleman with history of chronic alcohol dependence who presented with abdominal pain with associated nausea and vomiting with coffee-ground emesis. 1. Upper GI bleed ? Suspected to be secondary to gastritis from patient chronic alcohol use exacerbated by his low platelet counts. Patient was admitted to the intensive care unit symptom management started with antinausea medication as well as pain meds and Protonix. Consult was placed to Dr. Quesada with GI 03/15/2025; patient underwent EGD the day prior findings included - No gross lesions in the entire esophagus. - Portal hypertensive gastropathy. Non-bleeding gastric ulcer with no stigmata of bleeding. Oozing duodenal ulcers with pigmented material. Treated with argon plasma coagulation (APC). Patient subsequently started on Protonix 40 mg p.o. twice daily ? 02/17/2025; patient hemoglobin remained stable 2. Chronic alcohol dependence with at significant risk for alcohol withdrawal. - treatment with phenobarb taper in addition to adjuvant medications including gabapentin, Bentyl, hydroxyzine and clonidine as needed for alcohol withdrawal symptoms. Patient was also placed on thiamine and folic acid , consultation placed to [facility] ? 02/16/2025 patient remains on CIWA protocol with phenobarb taper ? 02/17/2025; patient remains on the phenobarb taper which is tolerated well so far 3. Severe pancytopenia ? Secondary to chronic alcohol use 4. Severe thrombocytopenia ? Secondary to chronic alcohol use monitoring platelet count. No indication for platelet transfusion at this point 5. Anemia ? Secondary to acute blood loss anemia from upper GI bleed ? Patient underwent EGD findings as documented above. Subsequently monitoring H&H with plans to transfuse if hemoglobin falls below 7 or patient is deemed to be symptomatic 6. Hypokalemia ? Corrected per protocol repeat labs ordered in a.m. for subsequent eval also ordered magnesium and phosphorus level ? 02/16/2025; patient potassium levels remain low despite aggressive resuscitation 7. Hypophosphatemia ? Secondary to chronic alcohol use corrected per protocol repeat potassium levels ordered for a.m. 8. Hypomagnesemia ? Secondary to chronic alcohol use corrected per protocol repeat labs ordered in a.m. for follow-up 9. Hypertension - Blood pressure controlled, home medications continued with dose adjustment as needed 10. Acute transaminitis ? Patient picture consistent with alcohol dependence will monitor 11. Colitis ? CT of the abdomen and pelvis obtained did show Mild wall thickening involving the terminal ileum, cecum, and ascending colon, which could be the result of portal colopathy, though terminal ileitis/colitis could appear similar. Will continue with symptom managed 12. Subacute to chronic appearing fractures of the lower right-sided ribs, secondary to previous falls There are healed appearing fractures of the left-sided ribs. Treatment initiated with incentive spirometry as well as pain meds 13. Lung nodule and adrenal nodules ? Patient informed plan is for patient to follow-up with primary care physician for subsequent imaging for follow-up 14. Tobacco dependence - Counseled on cessation, offered nicotine patch for tobacco cravings 15. DVT prophylaxis ? Bilateral SCDs 16 Physical deconditioning ? Requested for PT OT eval and social science analyst to assist with discharge planning. Plan is for patient to be discharged to [facility] on 02/18/2025
[2025-02-18 07:45] VITALS: BP 114/80; PULSE 65; RESP 15; TEMP 37.1; O2SAT 97
--- NOTE | 2025-02-18 08:42 | PCM.DC.SUM ---
Providers Date of Admission: 02/15/25 Date of Discharge: 02/18/25 Primary Care Physician: Dr. Rajeev Villaseñor MD Consultations 02/15/25 02:44 Consult: Gastroenterology Routine Consulting Provider: [facility] Reason for Consult: Intractable N/V with dark emesis and chronic EtOH abuse. EMERGENT Consult: No MD Notified: Yes Date Notified: 02/15/25 Time Notified: 00:40 Method of Notification: ED Physician Initiated Reason For Visit: INTRACTABLE N/V WITH DARK EMESIS & CHRONIC Diagnosis Discharge Diagnosis (1) Intractable vomiting with nausea: Status: Acute Code(s): R11.2 - Nausea with vomiting, unspecified (2) Alcohol withdrawal: Status: Acute Code(s): F10.939 - Alcohol use, unspecified with withdrawal, unspecified Qualifiers: Complication of substance-induced condition: with unspecified complication Qualified Code(s): F10.939 - Alcohol use, unspecified with withdrawal, unspecified (3) Transaminitis: Status: Acute Code(s): R74.01 - Elevation of levels of liver transaminase levels (4) Leukopenia: Status: Acute Code(s): D72.819 - Decreased white blood cell count, unspecified Qualifiers: Leukopenia type: unspecified Qualified Code(s): D72.819 - Decreased white blood cell count, unspecified (5) Anemia: Status: Acute Code(s): D64.9 - Anemia, unspecified Qualifiers: Anemia type: unspecified type Qualified Code(s): D64.9 - Anemia, unspecified Plan Patient is a 64-year-old gentleman with history of chronic alcohol dependence who presented with abdominal pain with associated nausea and vomiting with coffee-ground emesis. 1. Upper GI bleed ? Suspected to be secondary to gastritis from patient chronic alcohol use exacerbated by his low platelet counts. Patient was admitted to the intensive care unit symptom management started with antinausea medication as well as pain meds and Protonix. Consult was placed to Dr. Quesada with GI 03/15/2025; patient underwent EGD the day prior findings included - No gross lesions in the entire esophagus. - Portal hypertensive gastropathy. Non-bleeding gastric ulcer with no stigmata of bleeding. Oozing duodenal ulcers with pigmented material. Treated with argon plasma coagulation (APC). Patient subsequently started on Protonix 40 mg p.o. twice daily ? 02/17/2025; patient hemoglobin remained stable 2. Chronic alcohol dependence with at significant risk for alcohol withdrawal. - treatment with phenobarb taper in addition to adjuvant medications including gabapentin, Bentyl, hydroxyzine and clonidine as needed for alcohol withdrawal symptoms. Patient was also placed on thiamine and folic acid , consultation placed to [facility] ? 02/16/2025 patient remains on CIWA protocol with phenobarb taper ? 02/17/2025; patient remains on the phenobarb taper which is tolerated well so far 3. Severe pancytopenia ? Secondary to chronic alcohol use 4. Severe thrombocytopenia ? Secondary to chronic alcohol use monitoring platelet count. No indication for platelet transfusion at this point 5. Anemia ? Secondary to acute blood loss anemia from upper GI bleed ? Patient underwent EGD findings as documented above. Subsequently monitoring H&H with plans to transfuse if hemoglobin falls below 7 or patient is deemed to be symptomatic 6. Hypokalemia ? Corrected per protocol repeat labs ordered in a.m. for subsequent eval also ordered magnesium and phosphorus level ? 02/16/2025; patient potassium levels remain low despite aggressive resuscitation 7. Hypophosphatemia ? Secondary to chronic alcohol use corrected per protocol repeat potassium levels ordered for a.m. 8. Hypomagnesemia ? Secondary to chronic alcohol use corrected per protocol repeat labs ordered in a.m. for follow-up 9. Hypertension - Blood pressure controlled, home medications continued with dose adjustment as needed 10. Acute transaminitis ? Patient picture consistent with alcohol dependence will monitor 11. Colitis ? CT of the abdomen and pelvis obtained did show Mild wall thickening involving the terminal ileum, cecum, and ascending colon, which could be the result of portal colopathy, though terminal ileitis/colitis could appear similar. Will continue with symptom managed 12. Subacute to chronic appearing fractures of the lower right-sided ribs, secondary to previous falls There are healed appearing fractures of the left-sided ribs. Treatment initiated with incentive spirometry as well as pain meds 13. Lung nodule and adrenal nodules ? Patient informed plan is for patient to follow-up with primary care physician for subsequent imaging for follow-up 14. Tobacco dependence - Counseled on cessation, offered nicotine patch for tobacco cravings 15. DVT prophylaxis ? Bilateral SCDs 16 Physical deconditioning ? Requested for PT OT eval and social sciences chair to assist with discharge planning. Plan is for patient to be discharged to [facility] on 02/18/2025 Medications at Discharge Home Medications NK 02/15/25 folic acid 1 mg tablet 1 mg PO DAILY #30 tabs 02/18/25 hydroxyzine HCl 25 mg tablet 25 mg PO TID PRN agitation #20 tabs 02/18/25 magnesium chloride 64 mg (magnesium chloride) tablet,delayed release (Mag 64) 128 mg (2 x 64 mg) PO BID #0 tabs 02/18/25 multivitamin 1 tab PO DAILY #30 tabs 02/18/25 nicotine 14 mg/24 hr daily transdermal patch 14 mg transdermal DAILY #0 ea 02/18/25 pantoprazole 40 mg tablet,delayed release 40 mg PO BID #0 tabs 02/18/25 potassium chloride 20 mEq tablet,extended release(part/cryst) 20 meq PO BIDCM #0 tabs 02/18/25 potassium, sodium phosphates 280 mg-160 mg-250 mg oral powder packet 1 packet PO BID #0 ea 02/18/25 thiamine HCl (vitamin B1) 100 mg capsule 100 mg PO DAILY #30 caps 02/18/25 Hospital Course Summary of Care Provided Minutes Spent on Discharge: 35 Physical Exam Narrative GENERAL: cooperative HEENT: Atraumatic; normocephalic EYES; Anicteric, Normal Conjunctiva NECK; supple, normal thyroid, RESPIRATORY: Diminished to auscultation CARDIOVASCULAR: Regular S1 S2, GI: soft, normoactive bowel sounds, : No Renal angle tenderness; EXTREMITIES: No edema, no clubbing, MUSCULOSKELETAL: no muscle wasting NEURO: Awake; no lateralizing signs. SKIN: No Rash PSYCH; Flat affect Weight / BMI Weight Weight: 81.9 kg Body Mass Index (BMI) 23.9 ABG / Lab / Microbiology Data 02/18/25 05:00 02/18/25 05:00 Laboratory: Laboratory Results - last 24 hr 02/18/25 05:00: WBC 3.1 L, RBC 3.03 L, Hgb 10.5 L, Hct 29.9 L, MCV 98.7 H, MCH 34.7 H, MCHC 35.1, RDW Std Deviation 58.5 H, RDW Coeff of Saloni 16.4 H, Plt Count 41 L*, MPV 11.8, Immature Gran % (Auto) 1.300 H, Neut % (Auto) 54.9, Lymph % (Auto) 26.9, [place] % (Auto) 15.3 H, Eos % (Auto) 1.0, Baso % (Auto) 0.6, Absolute Neuts (auto) 1.7 L, Absolute Lymphs (auto) 0.83, Nucleated RBC % 0, Differential Comment SCANNED, Sodium 131 L, Potassium 4.1, Chloride 99, Carbon Dioxide 19.9 L, Anion Gap 12, BUN 5, Creatinine 0.61 L, Estim Creat Clear Calc 138.26, Est GFR (MDRD) Non-Af 107, BUN/Creatinine Ratio 8.3 L, Glucose 92, Calcium 8.5, Total Bilirubin 3.79 H, Direct Bilirubin 2.58 H, AST 130 H, ALT 52 H, Alkaline Phosphatase 111, Total Protein 8.0, Albumin 2.9 L, Globulin 5.0 H D/C Instructions Discharge Diet: No restrictions Discharge Activity: Return to Normal Activity Call your doctor if you observe: Fever of 101 or Higher, Shortness of breath, Fainting spells and Chest pain DC O2, CPAP, BIPAP Needs Home O2 Discharge instructions: No Meaningful Use Info Meaningful Use Meaningful Use Diagnoses (Choose all that apply): None applicable Ischemic Stroke Statin Dosing Therapy Reference: STATIN DOSE THERAPY REFERENCE: * Patients > 75 years receive moderate or high dose statin therapy. * Patients 75 years or YOUNGER should receive HIGH intensity statin dose unless contraindicated. You will be required to document reason for non-treatment if statin daily dose does not meet guidelines. HIGH DOSE STATIN THERAPY DAILY Atorvastatin > than or = to 40 mg Rosuvastatin > than or = to 20 mg Amlodipine + Atorvastatin > than or = to 2.5/40 mg Ezetimibe + Simvastatin 10/80 mg Simvastatin 80mg Discharge Plan Admission Admit Date/Time: 02/15/25 00:39 Attending Provider: Shabbir Erazo Primary Care Provider: Rajeev Villaseñor Consulting Providers: Shabbir Cheng Discharge Orders/Prescriptions Prescriptions: New nicotine 14 mg/24 hr Patch 24 Hour 14 mg transdermal DAILY Qty: 0 0RF potassium chloride 20 mEq Tablet,Er Particles/Crystals 20 meq PO BIDCM Qty: 0 0RF pantoprazole 40 mg Tablet,Delayed Release (Dr/Ec) 40 mg PO BID Qty: 0 0RF potassium, sodium phosphates 280-160-250 mg Powder In Packet 1 packet PO BID Qty: 0 0RF magnesium chloride [Mag 64] 64 mg Tablet,Delayed Release (Dr/Ec) 128 mg PO BID Qty: 0 0RF hydroxyzine HCl 25 mg tablet 25 mg PO TID PRN (Reason: agitation) Qty: 20 0RF thiamine HCl (vitamin B1) 100 mg capsule 100 mg PO DAILY Qty: 30 0RF folic acid 1 mg tablet 1 mg PO DAILY Qty: 30 0RF multivitamin Tablet 1 tab PO DAILY Qty: 30 0RF Continued NK Referrals / Follow Up: Rajeev Villaseñor MD [Primary Care Provider] - Within 2 Weeks Disposition Disposition (needs filled in before D/C Order can be placed): [facility] Facility Charges/Coding Visit Charges Inpatient E&M: 13221 Disch Hosp >30min
--- NOTE | 2025-02-18 08:47 | TREXTCAR_ITS ---
Diet Diet Order/Speech Therapy: INPATIENT Hospital Diet / Speech Therapy Order(s) 02/15/25 14:37 Diet: Full Liquid DC O2, CPAP, BIPAP needs Home O2 Discharge instructions: No Therapies Physical Therapy: Eval and Treat Occupational Therapy: Eval and Treat Problem/Diagnosis (1) Intractable vomiting with nausea: Status: Acute Code(s): R11.2 - Nausea with vomiting, unspecified (2) Alcohol withdrawal: Status: Acute Code(s): F10.939 - Alcohol use, unspecified with withdrawal, unspecified (3) Transaminitis: Status: Acute Code(s): R74.01 - Elevation of levels of liver transaminase levels (4) Leukopenia: Status: Acute Code(s): D72.819 - Decreased white blood cell count, unspecified (5) Anemia: Status: Acute Code(s): D64.9 - Anemia, unspecified Plan Patient is a 64-year-old gentleman with history of chronic alcohol dependence who presented with abdominal pain with associated nausea and vomiting with coffee-ground emesis. 1. Upper GI bleed ? Suspected to be secondary to gastritis from patient chronic alcohol use exacerbated by his low platelet counts. Patient was admitted to the intensive care unit symptom management started with antinausea medication as well as pain meds and Protonix. Consult was placed to Dr. Quesada with GI 03/15/2025; patient underwent EGD the day prior findings included - No gross lesions in the entire esophagus. - Portal hypertensive gastropathy. Non-bleeding gastric ulcer with no stigmata of bleeding. Oozing duodenal ulcers with pigmented material. Treated with argon plasma coagulation (APC). Patient subsequently started on Protonix 40 mg p.o. twice daily ? 02/17/2025; patient hemoglobin remained stable 2. Chronic alcohol dependence with at significant risk for alcohol withdrawal. - treatment with phenobarb taper in addition to adjuvant medications including gabapentin, Bentyl, hydroxyzine and clonidine as needed for alcohol withdrawal symptoms. Patient was also placed on thiamine and folic acid , consultation placed to [facility] counseling services ? 02/16/2025 patient remains on CIWA protocol with phenobarb taper ? 02/17/2025; patient remains on the phenobarb taper which is tolerated well so far 3. Severe pancytopenia ? Secondary to chronic alcohol use 4. Severe thrombocytopenia ? Secondary to chronic alcohol use monitoring platelet count. No indication for platelet transfusion at this point 5. Anemia ? Secondary to acute blood loss anemia from upper GI bleed ? Patient underwent EGD findings as documented above. Subsequently monitoring H&H with plans to transfuse if hemoglobin falls below 7 or patient is deemed to be symptomatic 6. Hypokalemia ? Corrected per protocol repeat labs ordered in a.m. for subsequent eval also ordered magnesium and phosphorus level ? 02/16/2025; patient potassium levels remain low despite aggressive resuscitation 7. Hypophosphatemia ? Secondary to chronic alcohol use corrected per protocol repeat potassium levels ordered for a.m. 8. Hypomagnesemia ? Secondary to chronic alcohol use corrected per protocol repeat labs ordered in a.m. for follow-up 9. Hypertension - Blood pressure controlled, home medications continued with dose adjustment as needed 10. Acute transaminitis ? Patient picture consistent with alcohol dependence will monitor 11. Colitis ? CT of the abdomen and pelvis obtained did show Mild wall thickening involving the terminal ileum, cecum, and ascending colon, which could be the result of portal colopathy, though terminal ileitis/colitis could appear similar. Will continue with symptom managed 12. Subacute to chronic appearing fractures of the lower right-sided ribs, secondary to previous falls There are healed appearing fractures of the left-sided ribs. Treatment initiated with incentive spirometry as well as pain meds 13. Lung nodule and adrenal nodules ? Patient informed plan is for patient to follow-up with primary care physician for subsequent imaging for follow-up 14. Tobacco dependence - Counseled on cessation, offered nicotine patch for tobacco cravings 15. DVT prophylaxis ? Bilateral SCDs 16 Physical deconditioning ? Requested for PT OT eval and [employer] social [employer] teacher to assist with discharge planning. Plan is for patient to be [facility] to [facility] on 02/18/2025 Allergies/Procedures Done in Hospital Allergies No Known Allergies Allergy (Verified 02/14/25 16:46) Type of Care/Length of Stay Estimated LOS: Convalescent Care Less Than 30 days Type of Care Needed: Skilled Rehab Potential: Good Prognosis: Good Additional Orders/Day of Discharge Day of Discharge: 02/18/25 Dietary and Speech Recommendations Dietitian Recommendations/Changes: Recommend advanced diet as tolerated to a cardiac diet. Will monitor weight trends. Discharge Plan Admission Admit Date/Time: 02/15/25 00:39 Attending Provider: Shabbir Erazo Primary Care Provider: Rajeev Villaseñor Consulting Providers: Shabbir Cheng Discharge Orders/Prescriptions Prescriptions: New nicotine 14 mg/24 hr Patch 24 Hour 14 mg transdermal DAILY Qty: 0 0RF potassium chloride 20 mEq Tablet,Er Particles/Crystals 20 meq PO BIDCM Qty: 0 0RF pantoprazole 40 mg Tablet,Delayed Release (Dr/Ec) 40 mg PO BID Qty: 0 0RF potassium, sodium phosphates 280-160-250 mg Powder In Packet 1 packet PO BID Qty: 0 0RF magnesium chloride [Mag 64] 64 mg Tablet,Delayed Release (Dr/Ec) 128 mg PO BID Qty: 0 0RF hydroxyzine HCl 25 mg tablet 25 mg PO TID PRN (Reason: agitation) Qty: 20 0RF thiamine HCl (vitamin B1) 100 mg capsule 100 mg PO DAILY Qty: 30 0RF folic acid 1 mg tablet 1 mg PO DAILY Qty: 30 0RF multivitamin Tablet 1 tab PO DAILY Qty: 30 0RF Continued NK Referrals / Follow Up: Rajeev Villaseñor MD [Primary Care Provider] - Within 2 Weeks Disposition Disposition (needs filled in before D/C Order can be placed): [facility] (2) Alcohol withdrawal Qualifiers: Complication of substance-induced condition: with unspecified complication Qualified Code(s): F10.939 - Alcohol use, unspecified with withdrawal, unspecified (4) Leukopenia Qualifiers: Leukopenia type: unspecified Qualified Code(s): D72.819 - Decreased white blood cell count, unspecified (5) Anemia Qualifiers: Anemia type: unspecified type Qualified Code(s): D64.9 - Anemia, unspecified
[2025-02-18 09:43] VITALS: BP 130/95; PULSE 116; RESP 16; TEMP 36.9; O2SAT 97
[2025-02-18] MEDS: Magnesium Chloride 64 MG Delay Rel.Tablet 128 MG PO (09:56)
[2025-02-18] MEDS: Na Biphos/Potassium Phosphate PACKET 1 PACKET PO (09:56)
[2025-02-18] MEDS: Potassium Chloride Oral Tablet 20 MEQ PO (09:56)
--- NOTE | 2025-02-18 11:05 | NURSING ---
This nurse spoke with staff at [facility], patient is able to be discharged today 02/18/25.
--- NOTE | 2025-02-18 11:05 | NURSING ---
This nurse spoke with staff at [facility], patient is able to be discharged today 02/18/25.
== END 2025-02-18 14:00 | disposition skilled nursing facility (03) | DRG 378 ==
LOC: ED 02-15 00:19 → ICU 02-15 01:35 → MS3 02-15 18:04
PROVIDERS: Internal Medicine Gastroenterology; Admitting Provider Internal Medicine; Emergency Provider Emergency Medicine; PCP Family Medicine; Visit Provider Internal Medicine
PROC: 0DJ08ZZ Inspection of Upper Intestinal Tract, Via Natural or Artificial Opening Endoscopic (ICD-10-PCS; CPT 43235; principal; 2025-02-15 12:25)
DX: K26.4 Chronic or unspecified duodenal ulcer with hemorrhage (principal); K76.6 Portal hypertension; D61.818 Other pancytopenia; F10.239 Alcohol dependence with withdrawal, unspecified; D62 Acute posthemorrhagic anemia; K70.31 Alcoholic cirrhosis of liver with ascites; I10 Essential (primary) hypertension; K25.9 Gastric ulcer, unspecified as acute or chronic, without hemorrhage or perforation; K31.89 Other diseases of stomach and duodenum; F17.210 Nicotine dependence, cigarettes, uncomplicated; E87.6 Hypokalemia; D69.59 Other secondary thrombocytopenia; E83.42 Hypomagnesemia; K52.9 Noninfective gastroenteritis and colitis, unspecified; E27.8 Other specified disorders of adrenal gland; Y90.9 Presence of alcohol in blood, level not specified; R29.6 Repeated falls; R91.1 Solitary pulmonary nodule; Z79.899 Other long term (current) drug therapy
CPT/HCPCS: 36415; 74177; 76705; 80048; 80053; 80061; 80076; 82607; 82728; 82746; 83540; 83550; 83690; 83735; 84100; 84443; 85025; 86850; 86900; 86901; 93005; 97162; 97166; 97530; 99285; 99406; C1889; Q9967; A4216; J2405

== ENCOUNTER → 2025-03-27 | Outpatient (CLI) | payer MEDICARE, SELFPAY ==
--- NOTE | 2025-03-27 14:35 | CT_ITS ---
PROCEDURE: ABDOMEN WITH IV CONTRAST 03/27/2025 REASON FOR EXAM: ABD PAIN, LEFT RIB FX TECHNIQUE: ABDOMEN WITH IV CONTRAST. Multiplanar Sagittal and Coronal images were obtained. One or more dose reduction techniques were used (e.g., Automated exposure control, adjustment of the mA and/or kV according to patient size, use of iterative reconstruction technique. CONTRAST: Isovue-300 VOLUME: 100 mL RADIATION DOSE SUMMARY: CTDlvol: 18.4 mGy DLP: 827.52 mGycm COMPARISON: Prior study dated February 14, 2025. FINDINGS: Lung bases: Minimal linear scarring at the right lung base. Liver: Diffuse fatty infiltration. The previously seen perihepatic collection has resolved. Gallbladder: No gallstones are seen. Spleen: Normal size. Calcified splenic granuloma. Pancreas: Normal size without evidence of mass surrounding inflammation or ductal dilation. Adrenals: Stable appearance of the small bilateral hypodense nodules in the adrenal suggestive of possible adenomas. Kidneys: Normal renal sizes. No hydronephrosis. Bowel: Sigmoid diverticulosis. Lymph nodes: Unremarkable. Vasculature: Atherosclerotic plaque formation of the abdominal aorta. Peritoneum / Retroperitoneum: Prostatic enlargement. Bones: Degenerative changes of the spine. CT/Abdomen WITH IV Contrast IMPRESSION: Fatty infiltration of the liver. Stable bilateral adrenal nodules. Prostatic enlargement. Reading Location: [place] [id number]
--- NOTE | 2025-03-27 14:35 | CT_ITS ---
PROCEDURE: ABDOMEN WITH IV CONTRAST 03/27/2025 REASON FOR EXAM: ABD PAIN, LEFT RIB FX TECHNIQUE: ABDOMEN WITH IV CONTRAST. Multiplanar Sagittal and Coronal images were obtained. One or more dose reduction techniques were used (e.g., Automated exposure control, adjustment of the mA and/or kV according to patient size, use of iterative reconstruction technique. CONTRAST: Isovue-300 VOLUME: 100 mL RADIATION DOSE SUMMARY: CTDlvol: 18.4 mGy DLP: 827.52 mGycm COMPARISON: Prior study dated February 14, 2025. FINDINGS: Lung bases: Minimal linear scarring at the right lung base. Liver: Diffuse fatty infiltration. The previously seen perihepatic collection has resolved. Gallbladder: No gallstones are seen. Spleen: Normal size. Calcified splenic granuloma. Pancreas: Normal size without evidence of mass surrounding inflammation or ductal dilation. Adrenals: Stable appearance of the small bilateral hypodense nodules in the adrenal suggestive of possible adenomas. Kidneys: Normal renal sizes. No hydronephrosis. Bowel: Sigmoid diverticulosis. Lymph nodes: Unremarkable. Vasculature: Atherosclerotic plaque formation of the abdominal aorta. Peritoneum / Retroperitoneum: Prostatic enlargement. Bones: Degenerative changes of the spine. CT/Abdomen WITH IV Contrast IMPRESSION: Fatty infiltration of the liver. Stable bilateral adrenal nodules. Prostatic enlargement. Reading Location: [place] [id number]
== END | disposition home or self-care (01) ==
LOC: CT 14:22
PROVIDERS: PCP Family Medicine; Referring Provider Hospitalist; Visit Provider Hospitalist
DX: R10.9 Unspecified abdominal pain (principal); S22.32XA Fracture of one rib, left side, initial encounter for closed fracture; X58.XXXA Exposure to other specified factors, initial encounter
CPT/HCPCS: 74160; Q9967